=== PATIENT | female | born 1955 | race Two or more races ===

== ENCOUNTER 2024-03-31 20:09 | Inpatient (IN) | payer MEDICARE, MEDICAID ==
[~2024-03-31] VITALS: Ht 172.7 cm; Wt 124.8 kg
[2024-03-31 20:10] VITALS: PULSE 109; RESP 30; O2SAT 96
[2024-03-31] MEDS: NOREPINEPHRINE 8 MG/250ML KIT 250 ML IV ONE (20:30)
--- NOTE | 2024-03-31 20:38 | ECG ---
[facility] Test Date: 2024-03-31 Test Time: 20:23:20 Pat Name: BROOKLYN WEBSTER Department: ED Room: [address] [place] [address] Gender: F Plane Tableman: ASTRID : 1955 Requested By: HUMAIRA LEAHY Order Number: [id number] Reading MD: Tenzin ePña Measurements Intervals [place] Rate: 102 P: 60 NE: 113 QRS: -44 QRSD: 88 T: 85 QT: 322 QTc: 420 Interpretive Statements Sinus tachycardia Atrial premature complexes Borderline short [place] interval RSR' in V1 or V2, right VCD or RVH Probable inferior infarct, acute Electronically Signed On 04-02-2024 16:17:31 PDT by Tenzin Peña Please click the below link to view image of tracing.
--- NOTE | 2024-03-31 20:44 | ED.PDOC ---
History of Present Illness HPI Comments 68 y/o F is BIBA for c/o shortness of breath x4 days. Per EMS report, patient is a transfer from [facility] after, initially, being seen for unprovoked onset of progressively worsening difficulty breathing. Patient is stated to have reported no significant past medical or surgical Hx and was found then with right pleural effusion, septic with elevated white count and lactic acid, and in AFIB with NSTEMI then. Patient was given adenosine, norepinephrine, diltiazem, 500 ml of bolus, and levo in addition to Martines catheter being placed at facility site. Upon arrival, patient was found on NRB, sating on 96% on 3L. Patient endorses on having no chest pain, dyspnea, cough, fever, or other associated symptoms or modifiers at this time. Chief Complaint: Shortness of Breath Time Seen by MD: 20:10 Reviewed Notes: Nurses Notes, Medications, Allergies Allergies: Coded Allergies: NO KNOWN ALLERGIES (Unverified , 03/31/24) Information Source: Emergency Med Personnel Mode of Arrival: EMS Severity: Moderate Timing: Days Duration: Since onset Prehospital treatment: 12 Lead EKG, Radio/Tv Technician, Oxygen (NRB) Context: see HPI Location: see HPI Quality see HPI Worsens see HPI Improves see HPI Associated signs and symptoms see HPI Other History see HPI Past Medical History PAST MEDICAL HISTORY: Denies Surgical History: Denies all surgeries MANAGER REIMBURSEMENT History: Denies all MANAGER REIMBURSEMENT Hx Family History Family History: Unknown Social History Smoker: Non-Smoker Alcohol: Denies ETOH Use Drugs: Denies Drug Use Lives In: Home Constitutional: denies: chills, diaphoresis, fatigue, fever, malaise, sweats, weakness, others EENTM: denies: blurred vision, double vision, ear bleeding, ear discharge, ear drainage, ear pain, ear ringing, eye pain, eye redness, hearing loss, mouth pain, mouth swelling, nasal discharge, nose bleeding, nose congestion, nose pain, photophobia, tearing, throat pain, throat swelling, voice changes, others Respiratory: reports: shortness of breath; denies: cough, hemoptysis, orthopnea, SOB at rest, SOB with excertion, stridor, wheezing, others Cardiovascular: denies: chest pain, dizzy spells, diaphoresis, Dyspnea on exertion, edema, irregular heart beat, left arm pain, lightheadedness, palpitations, PND, syncope, others Gastrointestinal: denies: abdomen distended, abdominal pain, blood streaked bowels, constipated, diarrhea, dysphagia, difficulty swallowing, hematemesis, melena, nausea, poor appetite, poor fluid intake, rectal bleeding, rectal pain, vomiting, others Genitourinary: denies: abnormal vagina bleeding, burning, dyspareunia, dysuria, flank pain, frequency, hematuria, incontinence, pain, , vagina discharge, urgency, others Neurological: denies: dizziness, fainting, headache, left sided numbness, left sided weakness, numbness, paresthesia, pre-existing deficit, right sided numbness, right sided weakness, seizure, speech problems, tingling, tremors, weakness, others Musculoskeletal: denies: back pain, gout, joint pain, joint swelling, muscle pain, muscle stiffness, neck pain, others Integumetry: denies: bruises, change in color, change in hair/nails, dryness, laceration, lesions, lumps, rash, wounds, others Allergic/Immunocompromised: denies: Difficulty Healing, Frequent Infections, Hives, Itching, others Hematologic/Lymphatic: denies: anemia, blood clots, easy bleeding, easy bruising, swollen glands, others Endocrine: denies: excessive hunger, excessive sweating, excessive thirst, excessive urination, flushing, intolerance to cold, intolerance to heat, unexplained weight gain, unexplained weight loss, others Psychiatric: denies: anxiety, bipolar disorder, depression, hopeless, panic disorder, schizophrenia, sleepless, suicidal, others All Other Systems: Reviewed and Negative Physical Exam General Appearance: No Apparent Distress, Normal HEENT: Normal ENT Inspection, Pharynx Normal, TMs Normal Neck: Full Range of Motion, Non-Tender, Normal, Normal Inspection Respiratory: Chest Non-Tender, Lungs Clear, No Accessory Muscle Use, No Respira tory Distress, Normal Breath Sounds Cardiovascular: No Edema, No JVD, No Murmur, No Gallop, Normal Peripheral Pulses, Regular Rate/Rhythm Breast Exam: Deferred Gastrointestinal: No Organomegaly, Non Tender, No Pulsatile Mass, Normal Bowel Sounds, Soft Genitalia: Deferred Pelvic: Deferred Rectal: Deferred Extremities: No calf tenderness, Normal capillary refill, Normal inspection, Normal range of motion, Non-tender, No pedal edema Musculoskeletal : Apperance: Normal Neurologic: Alert, court interpreter II-XII nml as Tested, No Motor Deficits, Normal Affect, Normal Mood, No Sensory Deficits Cerebellar Function: Normal Reflexes: Normal Skin: Dry, Normal Color, Warm Lymphatic: No Adenopathy Was a procedure done? Was a procedure done?: Yes Sedation Sedation?: Yes Informed consent obtained: Yes Sedation start time: 22:27 Sedation end time: 23:35 Sedation total time: 1 hr 8 minutes Central Line Recorder of insertion practice: Screen Printer Occupation of heel cementer: Attending Physician Indication: Hypotension, Inability to obtain IV Room prepared for procedure: Yes Screen Printer performed hand hygien: Yes Maximal sterile barrier precau: Mask/Eye shield, Sterlie gloves, Large sterlie drape Skin Preparation: Chlorhexidine gluconate, Providine iodine Skin preparation completely dr: Yes Insertion site: Right, Internal jugular Central line catheter type: [id number] dialysis Number of lumens: 3 Central line exchanged over a: No Antiseptic ointment applied to: No Post Assessment: Chest X-Ray, Proper placement Informed consent obtained: Yes Risks/benefits/alt described: Yes Intubation Indication: Respiratory Insufficiency, Airway Protection Prep: Preoxygenation Pretreated with: Nothing Medicated with: Other (100mg rocuronium, 40mg etomidate) Intubation Approach: Orotracheal (8.0) Intubation size: cm (22 cm at the lip) Informed consent obtained: Yes Risks/benefits/alt described: Yes Other Procedure Procedure Arterial Line Placement to right radial artery Indication Hypotension with multiple pressors Anesthetic Lidocaine 1% Prep Chloroprep Success Yes, Patient tolerated the procedure well without complications Informed consent obtained: No Risks, benefits, and alternati: No EKG EKG #1: Pulse Rate (adult): 102 [place]: Normal Cardiac Rhythm: ST, PAC's Block: None Hypertrophy: None ST: Normal EKG #2: Pulse Rate (adult): 104 [place]: Normal Cardiac Rhythm: ST Block: None Hypertrophy: None ST: Old, Inf, Infarct Comments multiple premature complexes, ventricular and supraventricular Differential Dx Considerations may include: AFIB, CHF, NSTEMI, sepsis X-Ray, Labs, Meds, VS Vital Signs Date Time Temp Pulse Resp B/P (MAP) Pulse Ox O2 Delivery O2 Flow Rate FiO2 04/01/24 03:49 97 20 88/18 96 70 04/01/24 02:15 97 24 108/31 (56) 95 70 04/01/24 02:15 97.9 95 24 108/31 (56) 95 97.9 04/01/24 02:00 98.1 93 24 103/25 (51) 96 98.1 04/01/24 01:45 98.1 101 24 109/65 (80) 97 98.1 04/01/24 01:40 88/18 04/01/24 01:39 88/18 04/01/24 01:30 98.2 95 24 88/18 (41) 96 98.2 04/01/24 01:15 98.4 95 24 66/20 (35) 96 98.4 04/01/24 01:00 98.4 96 20 81/31 (48) 92 98.4 04/01/24 00:45 95 20 92/34 (53) 92 04/01/24 00:30 98 20 98/42 (60) 97 04/01/24 00:15 98 20 98/39 (58) 97 04/01/24 00:11 106 20 96 100 04/01/24 00:00 100 20 136/64 (88) 97 03/31/24 23:30 111 22 131/57 (81) 97 03/31/24 23:30 110 03/31/24 23:15 107 18 127/62 (83) 98 03/31/24 23:00 104 17 118/53 (74) 98 03/31/24 22:52 104 20 98 100 03/31/24 22:52 104 03/31/24 22:45 97 20 100/65 (77) 96 03/31/24 22:30 175 20 104/62 (76) 100 03/31/24 22:30 100/65 03/31/24 22:15 92 20 106/64 (78) 100 03/31/24 22:00 97 20 109/63 (78) 100 03/31/24 21:45 94 22 109/61 (77) 98 03/31/24 21:30 96 20 113/46 (68) 99 03/31/24 21:20 104 03/31/24 21:15 92 21 104/51 (68) 98 03/31/24 21:10 95 88/44 Facial BiPAP Mask 60 03/31/24 21:00 94 40 88/44 (59) 98 03/31/24 20:45 92 29 81/54 (63) 100 03/31/24 20:45 81/54 03/31/24 20:23 102 03/31/24 20:20 97.0 92 29 119/65 (83) 100 97.0 03/31/24 20:17 97.0 109 30 108/60 (76) 96 03/31/24 20:10 109 30 96 Non-Rebreather 15 N/A Lab Test 04/01/24 02:20 04/01/24 01:41 04/01/24 00:55 04/01/24 00:47 Range/Units Blood Gas Specimen Type Arterial Arterial Blood Gas Sample Site Left radial Right radial Blood Gas Patient Temperature 37.0 37.0 Arterial Blood Date Drawn 532 Arterial Blood pH 7.242 *L 7.164 *L 7.350-7.450 Arterial Blood Partial Pressure CO2 48.0 H 54.7 H 32.0-45.0 mmHg Arterial Blood Partial Pressure O2 79.6 L 72.9 L 83.0-108.0 mmHg Arterial Blood HCO3 20.2 L 19.2 L 21.0-28.0 mmol/L Arterial Blood Oxygen Saturation 92.2 L 89.2 L 94.0-98.0 % Arterial Blood Base Excess -7.0 L -9.5 L -2.0-3.0 mmol/L Arterial Blood Oxyhemoglobin 91.2 L 88.4 L 94.0-98.0 % Arterial Blood Carboxyhemoglobin 0.4 L 0.4 L 0.5-1.5 % Arterial Blood Methemoglobin 0.7 0.5 0.0-1.5 % Monster Test Yes Modified Blood Gas Total Hemoglobin 10.20 L 11.80 L 12.0-16.0 g/dL Blood Gas Set Respiration Rate 24.0 20.0 Blood Gas Modality Vent - ac Vent - ac FiO2 % 70.0 50.0 Blood Gas Tidal Volume 450.0 450.0 Blood Gas PEEP or CPAP 10.0 10.0 Specimen Drawn By Ladi faustin rrt Blood Gas Critical Value Read Back Yes Yes Blood Gas Notified Whom ros Sandoval md, Dr. Blood Gas Notified Time 0243 Blood Gas Notified By Ladi faustin ratchet setter Rt tello alcantar POC Glucose 133 H 70-106 mg/dl Troponin I High Sensitivity 1684 *H </=34 ng/L Test 03/31/24 22:22 03/31/24 20:52 03/31/24 20:47 03/31/24 20:42 Range/Units Lactic Acid Level 3.4 *H 3.3 *H 0.4-2.0 mmol/L Troponin I High Sensitivity 1515 *H 1469 *H </=34 ng/L Blood Gas Specimen Type Arterial Blood Gas Sample Site Left radial Blood Gas Patient Temperature 37.0 Arterial Blood Date Drawn [id number] Arterial Blood pH 7.386 7.350-7.450 Arterial Blood Partial Pressure CO2 31.7 L 32.0-45.0 mmHg Arterial Blood Partial Pressure O2 69.6 L 83.0-108.0 mmHg Arterial Blood HCO3 18.6 L 21.0-28.0 mmol/L Arterial Blood Oxygen Saturation 92.5 L 94.0-98.0 % Arterial Blood Base Excess -5.5 L -2.0-3.0 mmol/L Arterial Blood Oxyhemoglobin 91.4 L 94.0-98.0 % Arterial Blood Carboxyhemoglobin 0.6 0.5-1.5 % Arterial Blood Methemoglobin 0.6 0.0-1.5 % Monster Test Yes Blood Gas Total Hemoglobin 11.80 L 12.0-16.0 g/dL Blood Gas Liter Flow 4.00 Blood Gas Modality Nasal cannula FiO2 % 36.0 Specimen Drawn By Ladi faustin ratchet setter White Blood Count 25.3 H 4.4-10.8 10^3/uL Red Blood Count 4.53 4.0-5.20 10^6/uL Hemoglobin 10.8 L 12.2-16.2 g/dL Hematocrit 34.8 L 36.0-46.0 % Mean Corpuscular Volume 76.8 L 80.0-100.0 fL Mean Corpuscular Hemoglobin 23.8 L 28.0-32.0 pg Mean Corpuscular Hemoglobin Concent 31.0 L 32.0-36.0 g/dL Red Cell Distribution Width 18.8 H 11.8-14.3 % Platelet Count 246 140-450 10^3/uL Mean Platelet Volume 9.0 6.9-10.8 fL Neutrophils (%) (Auto) 84.8 H 37.0-80.0 % Lymphocytes (%) (Auto) 11.2 10.0-50.0 % Monocytes (%) (Auto) 3.4 0.0-12.0 % Eosinophils (%) (Auto) 0.1 0.0-7.0 % Basophils (%) (Auto) 0.5 0.0-2.0 % Neutrophils # (Auto) 21.5 H 1.6-8.6 10 ^3/uL Lymphocytes # (Auto) 2.8 0.4-5.4 10 ^3/uL Monocytes # (Auto) 0.9 0-1.3 10 ^3/uL Eosinophils # (Auto) 0 0-0.8 10 ^3/uL Basophils # (Auto) 0.1 0-0.2 10 ^3/uL Nucleated Red Blood Cells 0.0 % Prothrombin Time 11.9 H 9.3-11.8 sec Prothrombin Time INR 1.13 0.9-1.15 Activated Partial Thromboplast Time 23.7 L 24.5-34.5 SEC Sodium Level 133 L 136-145 mmol/L Potassium Level 6.0 *H 3.5-5.1 mmol/L Chloride Level 102 98-107 mmol/L Carbon Dioxide Level 17 L 20-31 mmol/L Anion Gap 14 5-15 Blood Urea Nitrogen 98 *H 9-23 mg/dL Creatinine 5.67 H 0.550-1.02 mg/dL Glomerular Filtration Rate Calc 8 >90 mL/min BUN/Creatinine Ratio 17.3 10.0-20.0 Serum Glucose 129 H 74-106 mg/dL Calcium Level 8.0 L 8.7-10.4 mg/dL Total Bilirubin 0.5 0.2-1.0 mg/dL Aspartate Amino Transferase (AST) 41 H 13-40 U/L Alanine Aminotransferase (ALT) 17 7-40 U/L Alkaline Phosphatase 128 H 46-116 U/L B-Type Natriuretic Peptide 274.69 0-100 pg/mL Total Protein 6.6 5.7-8.2 g/dL Albumin 3.1 L 3.2-4.8 g/dL Lipase 59 H 12-53 U/L Urine Color [place] H Yellow Urine Clarity Ex.turbid Clear Urine pH 5.5 5.0-9.0 Urine Specific [place] 1.020 1.001-1.035 Urine Protein 2+ H Negative Urine Ketones Trace Negative Urine Blood 3+ H Negative /uL Urine Nitrite Negative Negative Urine Bilirubin Negative Negative Urine Urobilinogen 2 H Negative mg/dL Urine Leukocyte Esterase 3+ Negative /uL Urine RBC 508 0 - 4 /hpf Urine WBC 2451 0 - 5 /hpf Urine WBC Clumps Present None Seen /hpf Urine Squamous Epithelial Cells None seen <5 /hpf Urine Bacteria Mod H None Seen /hpf Urine Mucus Few None Seen Urine Glucose Normal Normal mg/dL Current Medications Medications (Trade) Dose Ordered Sig/Destini Route Start Time Stop Time Status Last Admin Norepinephrine Bitartrate 250 ml @ 3.75 mls/hr Q24H IV 03/31/24 20:45 03/31/24 20:45 Cefepime HCl 50 ml @ 12.5 mls/hr ONCE ONCE IV 03/31/24 22:30 04/01/24 02:29 DC 04/01/24 01:39 Vancomycin HCl 200 ml @ 200 mls/hr ONCE ONCE IV 03/31/24 22:30 03/31/24 23:29 DC 04/01/24 01:21 Etomidate 20 mg ONCE ONCE IV 03/31/24 22:30 03/31/24 22:36 DC 03/31/24 22:30 Calcium Gluconate/ Sodium Chloride 50 ml @ 100 mls/hr Q30M IV 03/31/24 23:45 04/01/24 00:44 DC 04/01/24 00:15 Sodium Bicarbonate 100 ml ONCE ONCE IV 03/31/24 23:45 03/31/24 23:46 DC 04/01/24 01:39 Insulin Human Regular (InsuLIN R) 10 units ONCE ONCE IV 03/31/24 23:45 03/31/24 23:53 DC 04/01/24 01:49 Dextrose 50 ml ONCE ONCE IV 03/31/24 23:45 03/31/24 23:53 DC 04/01/24 01:59 Sodium Chloride 1,000 ml @ 1,000 mls/hr Q1H ONCE IV 03/31/24 23:45 04/01/24 00:44 DC 03/31/24 23:45 Heparin Sodium/ Dextrose 250 ml @ 10 mls/hr Q24H IV 04/01/24 01:00 04/01/24 01:48 Heparin Sodium (Porcine) 4,000 units ONCE ONCE IV 04/01/24 01:00 04/01/24 01:01 DC 04/01/24 01:46 Midazolam HCl 50 ml @ 1 mls/hr Q24H IV 04/01/24 01:30 04/01/24 01:40 Vasopressin 20 units/Sodium Chloride 100 ml @ 9 mls/hr Q11H7M IV 04/01/24 01:30 04/01/24 01:39 [place] [address] Ph: [phone] DIAGNOSTIC IMAGING Diagnostic Imaging Report : [id number] Signed PATIENT: BROOKLYN WEBSTER ACCT: [id number] UNIT: [id number] : 1955 LOC: ER ROOM / BED: / AGE / SEX: 68 / F ADM STATUS: REG ER SERVICE 14 ORDERING PHYSICIAN: HUMAIRA SANDOVAL MD PROCEDURE(s): CXRP - CHEST PORTABLE REASON: sob ORDER NUMBER(s): [id number], ACCESSION NUMBER(s): [id number] CHEST RADIOGRAPH Indication:sob Technique: Single frontal view of the chest was obtained Comparison: None FINDINGS: Lines and Tubes: None Lungs: Mildly prominent pulmonary vascular markings bilaterally.. Pleura: Moderate right pleural effusion. No pneumothorax. Cardiomediastinal contours: Mild cardiomegaly Bones: No acute osseous abnormality. IMPRESSION: 1. Moderate right pleural effusion. 2. Cardiomegaly with mild pulmonary vascular congestion bilaterally. ATED BY: BEN WHATLEY Jr., DO DICTATED DATE/TIME: 03/31/242044 SIGNED BY: BEN WHATLEY Jr., SIGNED DATE/TIME: 03/31/242044 CC: Time of 1ST Reevaluation: 20:40 Reevaluation 1ST: Unchanged Patient Education/Counseling: Diagnosis, Treatment Family Education/Counseling: No Family Present Departure 1 Departure Time of Disposition: 04:32 (Patient is critically ill. She is likely septic and has bilateral renal stones. We will consult with Urology, Cardiology, pulmonology admit patient to ICU. Patient in in critical condition with rising pressor demand) Impression: Primary Impression: Sepsis Qualified Codes: A41.9 - Sepsis, unspecified organism; R65.21 - Severe sepsis with septic shock; J96.01 - Acute respiratory failure with hypoxia Additional Impressions: Shortness of breath Weakness Bilateral renal stones NSTEMI (non-ST elevated myocardial infarction) Acute kidney failure Qualified Codes: N17.8 - Other acute kidney failure Disposition: ADMITTED INPATIENT Admit to: ICU Condition: Critical Critical Care Note Critical Care Time?: Yes (>90min-critical care time only) Critical care comment: Authorized and Performed by: Humaria Sandoval MD Total critical care time: Approximately 185 minutes Due to a high probability of clinically significant, life threatening deterioration, the patient required my highest level of preparedness to intervene emergently and I personally spent this critical care time directly and personally managing the patient. This critical care time included obtaining a history; examining the patient; pulse oximetry; ordering and review of studies; arranging urgent treatment with development of a management plan; evaluation of patient's response to treatment; frequent reassessment; and, discussions with other providers. This critical care time was performed to assess and manage the high probability of imminent, life-threatening deterioration that could result in multi-organ failure. It was exclusive of separately billable procedures and treating other patients and teaching time. Please see my other sections and the rest of the note for further information on patient assessment and treatment. Stability Stability form required: No Heart Score Heart Score: Heart Score Response (Comments) Value History Slightly Suspicious 0 EKG Normal 0 Age >65 2 Risk Factors >3 or Hx ASHD 2 Troponin >3 x's Normal limit 2 Total 6 DOROTHY ALCARAZ Mar 31, 2024 20:44 HUMAIRA SANDOVAL MD Apr 01, 2024 04:34
[2024-03-31] MEDS: NOREPINEPHRINE 8 MG/250ML KIT 250 ML IV SCH (20:45)
--- NOTE | 2024-03-31 20:48 | DVH ---
CHEST RADIOGRAPH Indication:sob Technique: Single frontal view of the chest was obtained Comparison: None FINDINGS: Lines and Tubes: None Lungs: Mildly prominent pulmonary vascular markings bilaterally.. Pleura: Moderate right pleural effusion. No pneumothorax. Cardiomediastinal contours: Mild cardiomegaly Bones: No acute osseous abnormality. IMPRESSION: 1. Moderate right pleural effusion. 2. Cardiomegaly with mild pulmonary vascular congestion bilaterally.
[2024-03-31 21:23] LABS: Base Excess -5.5 mmol/L (-2.0-3.0)
--- NOTE | 2024-03-31 21:23 | ECG ---
[facility] Test Date: 2024-03-31 Test Time: 21:20:16 Pat Name: BROOKLYN WEBSTER Department: ED Room: [address] [place] [address] Gender: F Concrete Form Setter: ASTRID : 1955 Requested By: HUMAIRA LEAHY Order Number: [id number] Reading MD: Tenzin Peña Measurements Intervals [place] Rate: 104 P: 42 [place]: 116 QRS: -47 QRSD: 91 T: 110 QT: 327 QTc: 430 Interpretive Statements Sinus tachycardia Multiple premature complexes, vent & supraven Borderline short [place] interval Abnormal R-wave progression, late transition Inferior infarct, old Lateral leads are also involved Electronically Signed On 04-02-2024 16:17:35 PDT by Tenzin Peña Please click the below link to view image of tracing.
[2024-03-31 21:38] LABS: Alanine Aminotransferase 17 U/L (7-40); Albumin 3.1 g/dL (3.2-4.8); Alkaline Phosphatase 128 U/L (46-116); Anion Gap 14 (5-15); Aspartate Aminotransferase 41 U/L (13-40); BUN/Creatinine Ratio 17.3 (10.0-20.0); Bilirubin, Total 0.5 mg/dL (0.2-1.0); Carbon Dioxide 17 mmol/L (20-31); Chloride 102 mmol/L (98-107); Glucose 129 mg/dL (74-106); Lipase 59 U/L (12-53); Sodium 133 mmol/L (136-145); Total Protein 6.6 g/dL (5.7-8.2)
[2024-03-31 22:04] LABS: Lactic Acid w/Reflex 3.3 mmol/L (0.4-2.0)
[2024-03-31 22:05] LABS: Blood Urea Nitrogen 98 mg/dL (9-23)
[2024-03-31 22:07] LABS: Basophils # (auto) 0.1 10 ^3/uL (0-0.2); Basophils % (auto) 0.5 % (0.0-2.0); Eosinophils # (auto) 0 10 ^3/uL (0-0.8); Eosinophils % (auto) 0.1 % (0.0-7.0); Hematocrit 34.8 % (36.0-46.0); Hemoglobin 10.8 g/dL (12.2-16.2); Lymphocytes # (auto) 2.8 10 ^3/uL (0.4-5.4); Lymphocytes % (auto) 11.2 % (10.0-50.0); Mean Corpuscular Hemoglobin 23.8 pg (28.0-32.0); Mean Corpuscular Volume 76.8 fL (80.0-100.0); Monocytes # (auto) 0.9 10 ^3/uL (0-1.3); Monocytes % (auto) 3.4 % (0.0-12.0); Neutrophils # (auto) 21.5 10 ^3/uL (1.6-8.6); Neutrophils % (auto) 84.8 % (37.0-80.0); Platelet Count (auto) 246 10^3/uL (140-450); Red Blood Cells 4.53 10^6/uL (4.0-5.20); Red Cell Distribution Width 18.8 % (11.8-14.3); White Blood Cell 25.3 10^3/uL (4.4-10.8)
[2024-03-31 22:08] LABS: Urine Bacteria MOD /hpf (None Seen); Urine Blood 3+ /uL (Negative); Urine Clarity Ex.Turbid (Clear); Urine Color Orange (Yellow); Urine Mucus FEW (None Seen); Urine Protein, UAD 2+ (Negative); Urine Urobilinogen 2 mg/dL (Negative); Urine WBC 2451 /hpf (0 - 5); Urine WBC Clumps PRESENT /hpf (None Seen); Urine pH 5.5 (5.0-9.0)
[2024-03-31] MEDS: ETOMIDATE (2MG/ML) 20ML VIAL IV ONE ×2 (22:28→22:30)
[2024-03-31] MEDS: ROCURONIUM 10MG/ML 10ML VIAL IV ONE ×2 (22:29→22:30)
[2024-03-31] MEDS: PROPOFOL 100 ML IV ONE (22:32)
--- NOTE | 2024-03-31 23:32 | ECG ---
[facility] Test Date: 2024-03-31 Test Time: 23:30:57 Pat Name: BROOKLYN WEBSTER Department: ED Room: [address] [place] [address] Gender: F Hand Cooper Helper: ASTRID : 1955 Requested By: HUMAIRA LEAHY Order Number: [id number] Reading MD: Tenzin Peña Measurements Intervals [place] Rate: 110 P: 54 [place]: 116 QRS: -50 QRSD: 92 T: 92 QT: 367 QTc: 497 Interpretive Statements Sinus tachycardia Abnormal R-wave progression, early transition Inferior infarct, acute (RCA) Probable RV involvement, suggest recording right precordial leads Electronically Signed On 04-02-2024 16:17:46 PDT by Tenzin Peña Please click the below link to view image of tracing.
[2024-03-31] MEDS ORDERED: HEPARIN DRIP/D5W 100UNITS/ML 250 ML IV SCH (23:45)
[2024-03-31] MEDS ORDERED: HEPARIN SODIUM (PORCINE) 5000 UNITS/ML 1ML VIAL IV ONE (23:45)
[2024-03-31] MEDS: SODIUM CHLORIDE 0.9% 1,000 ML IV ONE (23:45)
[2024-04-01] VITALS (70 sets, daily range): BP systolic 31–187; BP diastolic 18–89; PULSE 79–112; RESP 11–32; TEMP 98.3–101.1; O2SAT 88–99
[2024-04-01 00:08] LABS: INR 1.13 (0.9-1.15); Partial Thromboplastin Time 23.7 SEC (24.5-34.5); Prothrombin Time 11.9 sec (9.3-11.8)
[2024-04-01] MEDS: CALCIUM GLUC 1,000mg/50ml-NS 50 ML IV SCH (00:15)
--- NOTE | 2024-04-01 00:44 | DVH ---
CLINICAL HISTORY: sepsis, ams, TECHNIQUE: Helical imaging carried out from skull base to vertex without intravenous contrast. This e xam was performed according to our departmental dose optimization program. Up-to-date CT equipment an d radiation dose reduction techniques are utilized as appropriate. CTDIVol: [CTDIvol] mGy DLP: 2764.22 mGy-cm WID: COMPARISON: None FINDINGS: Generalized cerebral volume loss with concordant prominence of the subarachnoid spaces and ventricles . Mild patchy low attenuation in the cerebral white matter consistent with nonspecific white matter d isease. There is no midline shift or mass effect. The morejon white matter interfaces are maintained. The basal cisterns are patent. There is no evidence of acute intracranial hemorrhage or extra-axial fluid ling ection. There is a small right mastoid air cell effusion. There is fluid layering in the nasopharynx. Partially imaged endotracheal tube. IMPRESSION: 1. No acute intracranial abnormality. 2. Generalized cerebral volume loss and mild chronic microvascular ischemic change. 3. Partially imaged endotracheal tube.
[2024-04-01 01:04] LABS: Base Excess -9.5 mmol/L (-2.0-3.0)
[2024-04-01] MEDS: VANCOMYCIN 1GM/200ML PREMIX 200 ML IV ONE ×2 (01:21→05:30)
[2024-04-01] MEDS: VASOPRESSIN 20 UNITS in SODIUM CHL 0.9% 99 ML IV SCH (01:39)
[2024-04-01] MEDS: CEFEPIME 2GM/50ML NS 50 ML IV ONE (01:39)
[2024-04-01] MEDS: SODIUM BICARB 8.4% 50Meq/50ml SYR Vial IV ONE ×4 (01:39→12:12)
[2024-04-01] MEDS: MIDAZOLAM DRIP 50 mg/50mL 50 ML IV SCH (01:40)
[2024-04-01] MEDS: VASOPRESSIN 20 UNIT/ML ONE ×2 (01:41→10:59)
--- NOTE | 2024-04-01 01:41 | DVH ---
EXAM: XY CHEST XRAY 1 VIEW CLINICAL HISTORY: ngt placement verify TECHNIQUE: Single AP view of the chest WID: COMPARISON: XY CHEST PORTABLE on DOS: 03/31/24 FINDINGS: Lines and tubes: Endotracheal tube projects 5.6 cm above the mili. Right IJ central venous cathete r projects over the lower SVC. Gastric tube descends beneath the level of the diaphragm and tip not v isualized in field of view. Chest: There is mild cardiomegaly with prominence of the pulmonary vasculature. Moderate to large right pleural effusion and adjacent right lung consolidation. The osseous structures are grossly intact. IMPRESSION: 1. Endotracheal tube and gastric tubes in place as described. 2. Right IJ central venous catheter projects over the lower SVC. 3. Mild cardiomegaly and prominence of the pulmonary vasculature. 4. Moderate to large right pleural effusion.
[2024-04-01] MEDS: HEPARIN SODIUM (PORCINE) 5000 UNITS/ML 1ML VIAL IV ONE ×2 (01:46→10:00)
[2024-04-01] MEDS: HEPARIN DRIP/D5W 100UNITS/ML 250 ML IV SCH ×2 (01:48→17:36)
[2024-04-01] MEDS: InsuLIN REG 1unit/0.01ml Soln (100units/ml) IV ONE ×3 (01:49→16:00)
[2024-04-01] MEDS: DEXTROSE (50%) 50ML SYRG IV ONE ×3 (01:59→15:52)
[2024-04-01] MEDS: PROPOFOL 100 ML IV SCH (02:30)
--- NOTE | 2024-04-01 02:38 | DVH ---
CLINICAL HISTORY: sepsis TECHNIQUE: CT of the chest, abdomen and pelvis was performed with IV contrast without IV contrast. Th is exam was performed according to our departmental dose optimization program. Up-to-date CT equipmen t and radiation dose reduction techniques are utilized as appropriate. COMPARISON: None FINDINGS: CHEST FINDINGS: Lower Neck: There is soft tissue stranding in the right supraclavicular neck. Axilla, Mediastinum and Sabine: There is no axillary or mediastinal lymphadenopathy. Limited evaluatio n of the sabine in the absence of intravenous contrast. Heart and Great Vessels: Mild cardiomegaly with trace pericardial fluid. There is moderate three-vess el calcified coronary artery disease. Mild aortic valve calcification. The thoracic aorta is normal in caliber containing mild calcified atherosclerotic plaque. There is a right IJ central venous cath eter in place terminating in the low IVC. Airway, Lungs and Pleura: Endotracheal tube terminates above the mili. Imaging during expiration. Low lung volumes. There is linear perihilar and bibasilar opacities likely atelectasis. There is a mo derate partially loculated right pleural effusion. Moderate dependent consolidations in the right low er and middle lobes. Mild interlobular septal thickening in the lungs. Chest Wall and Osseous Structures: There is a sebaceous cyst in the posterior chest wall just to the right of midline measuring 2.2 cm on series 5, image 67. Multilevel thoracic spondylosis. No destruct edelmira osseous lesion. Abdomen and Pelvis Findings: Liver and Biliary system: Hepatomegaly measuring 21 cm craniocaudal. No definite hepatic lesion. Corrie or cholecystectomy. No biliary ductal dilatation. Spleen: Mild splenomegaly. Adrenal Glands and Kidneys: There is nodular thickening of the bilateral adrenal glands. There is a c alculus in the right UPJ measuring 1.9 cm on coronal image 154. Mild right hydronephrosis. There is a 2.6 cm somewhat staghorn appearing calculus in the left renal pelvis and UPJ causing mild left hydro nephrosis predominantly in the mid to lower pole. There is soft tissue stranding about the left renal pelvis. Additional nonobstructing left renal calculi. There is partial duplication of the left renal collecting system Pancreas and Retroperitoneum: Grossly normal pancreas. There is predominantly low-density moderate ri ght perinephric fluid. Additional moderate low-density fluid in the right retroperitoneum extending i n the bilateral extraperitoneal pelvis and to a lesser extent in the left retroperitoneum. Aorta and Major Vessels: Aortoiliac vessels are normal in caliber containing moderate calcified ather osclerotic plaque. Bowel, Mesentery and Peritoneal space: The small and large bowel loops are normal in caliber. There i s [id number] colonic diverticulosis. There are fluid-filled small and large bowel loops. There is no free air or loculated fluid collection. Pelvis: The Martines catheter decompresses the urinary bladder. There is prominence of the endometrium m easuring at least 2.8 cm on sagittal image 88. There is no pelvic lymphadenopathy. Abdominal wall and Osseous Structures: There is mild body wall edema. Multilevel lumbar spondylosis. No destructive osseous lesion. IMPRESSION: 1. Moderate partially loculated right pleural effusion and consolidations in the right middle and low er lobes which could be pneumonia and/or atelectasis. 2. Mild cardiomegaly, mild interstitial pulmonary edema, and body wall edema. 3. There is a 1.9 cm calculus in the right UPJ with mild right hydronephrosis 4. There is a 2.6 cm somewhat staghorn appearing calculus in the left renal pelvis and UPJ causing mi ld predominantly mid to lower pole left hydronephrosis. Mild soft tissue stranding about the left re nal pelvis which could be due to obstruction or superimposed infection. Correlate with urinalysis. 5. Partial duplication of the left renal collecting system without hydronephrosis in the upper pole. 6. Moderate right perinephric, right retroperitoneal, and bilateral extraperitoneal pelvis low-densit y fluid and very mild left retroperitoneal low-density fluid. This could be fluid related to bilatera l renal obstructions and forniceal ruptures versus evolved retroperitoneal hematoma. This is suboptim ally evaluated without intravenous contrast. 7. Fluid-filled small and large bowel loops which may be physiologic or related to enterocolitis and could be manifesting as loose stools and/or diarrhea. 8. Prominent endometrium measuring at least 2.8 cm, suboptimally evaluated by CT. Recommend character ization with nonemergent pelvic ultrasound if clinically indicated. 9. Mild hepatosplenomegaly. 10. Moderate three-vessel calcified coronary artery disease and mild aortic valve calcification. 11. Right IJ central venous catheter in place terminating in the low SVC. 12. Small soft tissue stranding in the right supraclavicular neck which could be blood products. 13. Endotracheal tube terminates above the mili.
[2024-04-01] MEDS: PHENYLEPHRINE IV 250 ML IV ONE (02:43)
[2024-04-01] MEDS: PHENYLEPHRINE IV 250 ML IV SCH (02:45)
[2024-04-01] MEDS ORDERED: ONDANSETRON HCL 4 MG/2 ML VIAL IV PRN (05:00)
[2024-04-01] MEDS: ALBUMIN 25% 50 ML IV SCH (05:00)
[2024-04-01] MEDS ORDERED: VANCOMYCIN PER PHARMACY 0 MG IV SCH (05:00)
[2024-04-01] MEDS ORDERED: MORPHINE SULFATE INJ 2 MG/ml SYRG IV PRN (05:00)
[2024-04-01] MEDS: FUROSEMIDE 20 MG/2 ML VIAL IV ONE (05:00)
--- NOTE | 2024-04-01 05:20 | DVHHP2 ---
History of Present Illness Reason for Visit: Shortness of breath History of Present Illness 68-year-old female transferred from outside facility for higher level of care. Patient initially presented with complaints of a four day history of shortness for breath. Patient arrived tachycardic in atrial fibrillation, tachypneic sa turating in the 70s. Patient was emergently intubated for airway protection. Currently she is sedated and intubated. No further history could be obtained at the moment. Past Medical History Unknown Past Surgical History Unknown Family History Unknown Smoke: No ALCOHOL: none Drugs: None Review of Systems Review of Systems Unable to complete review of systems patient is sedated and intubated. Allergies: Coded Allergies: NO KNOWN ALLERGIES (Unverified , 03/31/24) Medications Current Medications Medications Dose Ordered Sig/Destini Route Start Time Stop Time Status Last Admin Dose Admin Norepinephrine Bitartrate 250 ml @ 3.75 mls/hr Q24H IV 03/31/24 20:45 03/31/24 20:45 3.75 MLS/HR Heparin Sodium/ Dextrose 250 ml @ 18 mls/hr [id number] IV 03/31/24 23:45 UNV Heparin Sodium/ Dextrose 250 ml @ 10 mls/hr Q24H IV 04/01/24 01:00 04/01/24 01:48 10 MLS/HR Midazolam HCl 50 ml @ 1 mls/hr Q24H IV 04/01/24 01:30 04/01/24 01:40 1 MLS/HR Vasopressin 20 units/Sodium Chloride 100 ml @ 9 mls/hr Q11H7M IV 04/01/24 01:30 04/01/24 01:39 3 MLS/HR Propofol 100 ml @ 4.5 mls/hr [id number] IV 04/01/24 02:30 Phenylephrine HCl 250 ml @ 30 mls/hr Q8H20M IV 04/01/24 02:45 04/01/24 02:45 30 MLS/HR Exam Vital Signs Vital Signs Date Time Temp Pulse Resp B/P (MAP) Pulse Ox O2 Delivery O2 Flow Rate FiO2 04/01/24 04:15 97.9 83 25 100/39 (59) 96 97.9 04/01/24 03:49 70 03/31/24 21:10 Facial BiPAP Mask 03/31/24 20:10 15 Exam Gen: 68-year-old female in moderate distress, morbidly obese Skin: Warm, dry, normal color and texture, no rash. HEENT: Normocephalic atraumatic, mucous membranes moist and pink. Neck: Cervical and supraclavicular nodes normal without enlargement, trachea is midline, thyroid gland is normal without masses. Pulmonary: Diminished breath sounds bilaterally, intubated Cardiac: Regular rate and rhythm. No murmur Abdomen: Soft, nontender, nondistended, bowel sounds present all 4 quadrants, no guarding, no rigidity, no organomegaly. Extremities: No cyanosis, clubbing, no edema Neuro: Sedated Labs/Xrays ORDERING PHYSICIAN: HUMAIRA LEAHY MD PROCEDURE(s): CTCAP - CHST AB PEL WO CON-NO IV/ORAL REASON: sepsis ORDER NUMBER(s): [id number], ACCESSION NUMBER(s): [id number] CLINICAL HISTORY: sepsis TECHNIQUE: CT of the chest, abdomen and pelvis was performed with IV contrast without IV contrast. This exam was performed according to our departmental dose optimization program. Up-to-date CT equipment and radiation dose reduction techniques are utilized as appropriate. COMPARISON: None FINDINGS: CHEST FINDINGS: Lower Neck: There is soft tissue stranding in the right supraclavicular neck. Axilla, Mediastinum and Sabine: There is no axillary or mediastinal ly mphadenopathy. Limited evaluation of the sabine in the absence of intravenous contrast. Heart and Great Vessels: Mild cardiomegaly with trace pericardial fluid. There is moderate three-vessel calcified coronary artery disease. Mild aortic valve calcification. The thoracic aorta is normal in caliber containing mild calcified atherosclerotic plaque. There is a right IJ central venous catheter in place terminating in the low IVC. Airway, Lungs and Pleura: Endotracheal tube terminates above the mili. Jelena ging during expiration. Low lung volumes. There is linear perihilar and bibasilar opacities likely atelectasis. There is a moderate partially loculated right pleural effusion. Moderate dependent consolidations in the right lower and middle lobes. Mild interlobular septal thickening in the lungs. Chest Wall and Osseous Structures: There is a sebaceous cyst in the posterior chest wall just to the right of midline measuring 2.2 cm on series 5, image 67. Multilevel thoracic spondylosis. No destructive osseous lesion. Abdomen and Pelvis Findings: Liver and Biliary system: Hepatomegaly measuring 21 cm craniocaudal. No definite hepatic lesion. Prior cholecystectomy. No biliary ductal dilatation. Spleen: Mild splenomegaly. Adrenal Glands and Kidneys: There is nodular thickening of the bilateral adrenal glands. There is a calculus in the right UPJ measuring 1.9 cm on coronal image 154. Mild right hydronephrosis. There is a 2.6 cm somewhat staghorn appearing calculus in the left renal pelvis and UPJ causing mild left hydronephrosis predominantly in the mid to lower pole. There is soft tissue stranding about the left renal pelvis. Additional nonobstructing left renal calculi. There is partial duplication of the left renal collecting system Pancreas and Retroperitoneum: Grossly normal pancreas. There is predominantly low-density moderate right perinephric fluid. Additional moderate low-density fluid in the right retroperitoneum extending in the bilateral extraperitoneal pelvis and to a lesser extent in the left retroperitoneum. Aorta and Major Vessels: Aortoiliac vessels are normal in caliber containing moderate calcified atherosclerotic plaque. Bowel, Mesentery and Peritoneal space: The small and large bowel loops are normal in caliber. There is [id number] colonic diverticulosis. There are fluid-filled small and large bowel loops. There is no free air or loculated fluid collection. Pelvis: The Martines catheter decompresses the urinary bladder. There is prominence of the endometrium measuring at least 2.8 cm on sagittal image 88. There is no pelvic lymphadenopathy. Abdominal wall and Osseous Structures: There is mild body wall edema. Multilevel lumbar spondylosis. No destructive osseous lesion. IMPRESSION: 1. Moderate partially loculated right pleural effusion and consolidations in the right middle and lower lobes which could be pneumonia and/or atelectasis. 2. Mild cardiomegaly, mild interstitial pulmonary edema, and body wall edema. 3. There is a 1.9 cm calculus in the right UPJ with mild right hydronephrosis 4. There is a 2.6 cm somewhat staghorn appearing calculus in the left renal pelvis and UPJ causing mild predominantly mid to lower pole left hydronephrosis. Mild soft tissue stranding about the left renal pelvis which could be due to obstruction or superimposed infection. Correlate with urinalysis. 5. Partial duplication of the left renal collecting system without hyd ronephrosis in the upper pole. 6. Moderate right perinephric, right retroperitoneal, and bilateral extraperitoneal pelvis low-density fluid and very mild left retroperitoneal low- density fluid. This could be fluid related to bilateral renal obstructions and forniceal ruptures versus evolved retroperitoneal hematoma. This is suboptimally evaluated without intravenous contrast. 7. Fluid-filled small and large bowel loops which may be physiologic or related to enterocolitis and could be manifesting as loose stools and/or diarrhea. 8. Prominent endometrium measuring at least 2.8 cm, suboptimally evaluated by CT. Recommend characterization with nonemergent pelvic ultrasound if clinically indicated. 9. Mild hepatosplenomegaly. 10. Moderate three-vessel calcified coronary artery disease and mild aortic valve calcification. 11. Right IJ central venous catheter in place terminating in the low SVC. 12. Small soft tissue stranding in the right supraclavicular neck which could be blood products. 13. Endotracheal tube terminates above the mili. RING PHYSICIAN: HUMAIRA LEAHY MD PROCEDURE(s): HWOCT - HEAD WITHOUT CONTRAST REASON: sepsis, ams, ORDER NUMBER(s): [id number], ACCESSION NUMBER(s): [id number] CLINICAL HISTORY: sepsis, ams, TECHNIQUE: Helical imaging carried out from skull base to vertex without intravenous contrast. This exam was performed according to our departmental dose optimization program. Up-to-date CT equipment and radiation dose reduction techniques are utilized as appropriate. CTDIVol: [CTDIvol] mGy DLP: 2764.22 mGy-cm WID: COMPARISON: None FINDINGS: Generalized cerebral volume loss with concordant prominence of the subarachnoid spaces and ventricles. Mild patchy low attenuation in the cerebral white matter consistent with nonspecific white matter disease. There is no midline shift or mass effect. The morejon white matter interfaces are maintained. The basal cisterns are patent. There is no evidence of acute intracranial hemorrhage or extra-axial fluid collection. There is a small right mastoid air cell effusion. There is fluid layering in the nasopharynx. Partially imaged endotracheal tube. IMPRESSION: 1. No acute intracranial abnormality. 2. Generalized cerebral volume loss and mild chronic microvascular ischemic change. 3. Partially imaged endotracheal tube. RING PHYSICIAN: HUMAIRA LEAHY MD PROCEDURE(s): CXR1 - CHEST XRAY 1 VIEW REASON: ngt placement verify ORDER NUMBER(s): [id number], ACCESSION NUMBER(s): [id number] EXAM: XY CHEST XRAY 1 VIEW CLINICAL HISTORY: ngt placement verify TECHNIQUE: Single AP view of the chest WID: COMPARISON: XY CHEST PORTABLE on DOS: 03/31/24 FINDINGS: Lines and tubes: Endotracheal tube projects 5.6 cm above the mili. Right IJ central venous catheter projects over the lower SVC. Gastric tube descends beneath the level of the diaphragm and tip not visualized in field of view. Chest: There is mild cardiomegaly with prominence of the pulmonary vasculature. Moderate to large right pleural effusion and adjacent right lung consolidation. The osseous structures are grossly intact. IMPRESSION: 1. Endotracheal tube and gastric tubes in place as described. 2. Right IJ central venous catheter projects over the lower SVC. 3. Mild cardiomegaly and prominence of the pulmonary vasculature. 4. Moderate to large right pleural effusion. Labs Test 04/01/24 02:20 04/01/24 01:41 04/01/24 00:47 03/31/24 22:22 Range/Units Blood Gas Specimen Type Arterial Blood Gas Sample Site Left radial Blood Gas Patient Temperature 37.0 Arterial Blood Date Drawn [id number] Arterial Blood pH 7.242 *L 7.350-7.450 Arterial Blood Partial Pressure CO2 48.0 H 32.0-45.0 mmHg Arterial Blood Partial Pressure O2 79.6 L 83.0-108.0 mmHg Arterial Blood HCO3 20.2 L 21.0-28.0 mmol/L Arterial Blood Oxygen Saturation 92.2 L 94.0-98.0 % Arterial Blood Base Excess -7.0 L -2.0-3.0 mmol/L Arterial Blood Oxyhemoglobin 91.2 L 94.0-98.0 % Arterial Blood Carboxyhemoglobin 0.4 L 0.5-1.5 % Arterial Blood Methemoglobin 0.7 0.0-1.5 % Monster Test Yes Blood Gas Total Hemoglobin 10.20 L 12.0-16.0 g/dL Blood Gas Set Respiration Rate 24.0 Blood Gas Modality Vent - ac FiO2 % 70.0 Blood Gas Tidal Volume 450.0 Blood Gas PEEP or CPAP 10.0 Specimen Drawn By Ladi faustin rrt Blood Gas Critical Value Read Back Yes Blood Gas Notified Whom ros Leahy md Blood Gas Notified Time [id number] Blood Gas Notified By Ladi faustin rrt POC Glucose 133 H 70-106 mg/dl Troponin I High Sensitivity 1684 *H </=34 ng/L Lactic Acid Level 3.4 *H 0.4-2.0 mmol/L Test 03/31/24 20:52 03/31/24 20:47 03/31/24 20:42 Range/Units Blood Gas Liter Flow 4.00 White Blood Count 25.3 H 4.4-10.8 10^3/uL Red Blood Count 4.53 4.0-5.20 10^6/uL Hemoglobin 10.8 L 12.2-16.2 g/dL Hematocrit 34.8 L 36.0-46.0 % Mean Corpuscular Volume 76.8 L 80.0-100.0 fL Mean Corpuscular Hemoglobin 23.8 L 28.0-32.0 pg Mean Corpuscular Hemoglobin Concent 31.0 L 32.0-36.0 g/dL Red Cell Distribution Width 18.8 H 11.8-14.3 % Platelet Count 246 140-450 10^3/uL Mean Platelet Volume 9.0 6.9-10.8 fL Neutrophils (%) (Auto) 84.8 H 37.0-80.0 % Lymphocytes (%) (Auto) 11.2 10.0-50.0 % Monocytes (%) (Auto) 3.4 0.0-12.0 % Eosinophils (%) (Auto) 0.1 0.0-7.0 % Basophils (%) (Auto) 0.5 0.0-2.0 % Neutrophils # (Auto) 21.5 H 1.6-8.6 10 ^3/uL Lymphocytes # (Auto) 2.8 0.4-5.4 10 ^3/uL Monocytes # (Auto) 0.9 0-1.3 10 ^3/uL Eosinophils # (Auto) 0 0-0.8 10 ^3/uL Basophils # (Auto) 0.1 0-0.2 10 ^3/uL Nucleated Red Blood Cells 0.0 % Prothrombin Time 11.9 H 9.3-11.8 sec Prothrombin Time INR 1.13 0.9-1.15 Activated Partial Thromboplast Time 23.7 L 24.5-34.5 SEC Sodium Level 133 L 136-145 mmol/L Potassium Level 6.0 *H 3.5-5.1 mmol/L Chloride Level 102 98-107 mmol/L Carbon Dioxide Level 17 L 20-31 mmol/L Anion Gap 14 5-15 Blood Urea Nitrogen 98 *H 9-23 mg/dL Creatinine 5.67 H 0.550-1.02 mg/dL Glomerular Filtration Rate Calc 8 >90 mL/min BUN/Creatinine Ratio 17.3 10.0-20.0 Serum Glucose 129 H 74-106 mg/dL Calcium Level 8.0 L 8.7-10.4 mg/dL Total Bilirubin 0.5 0.2-1.0 mg/dL Aspartate Amino Transferase (AST) 41 H 13-40 U/L Alanine Aminotransferase (ALT) 17 7-40 U/L Alkaline Phosphatase 128 H 46-116 U/L B-Type Natriuretic Peptide 274.69 0-100 pg/mL Total Protein 6.6 5.7-8.2 g/dL Albumin 3.1 L 3.2-4.8 g/dL Lipase 59 H 12-53 U/L Urine Color [place] H Yellow Urine Clarity Ex.turbid Clear Urine pH 5.5 5.0-9.0 Urine Specific [place] 1.020 1.001-1.035 Urine Protein 2+ H Negative Urine Ketones Trace Negative Urine Blood 3+ H Negative /uL Urine Nitrite Negative Negative Urine Bilirubin Negative Negative Urine Urobilinogen 2 H Negative mg/dL Urine Leukocyte Esterase 3+ Negative /uL Urine RBC 508 0 - 4 /hpf Urine WBC 2451 0 - 5 /hpf Urine WBC Clumps Present None Seen /hpf Urine Squamous Epithelial Cells None seen <5 /hpf Urine Bacteria Mod H None Seen /hpf Urine Mucus Few None Seen Urine Glucose Normal Normal mg/dL Assessment/Plan Assessment/Plan Assessment Septic shock Acute renal failure NSTEMI ? Cardiogenic shock Large left pleural effusion Morbid obesity Plan Admit the patient to ICU to the hospitalist Cardiology consultation Nephrology consult Radiology consult Continue heparin drip Continue vasoactive drips to keep the map greater than 60 systolic blood pressure greater than 90 Zosyn/vancomycin Continue treatment per orders Total critical care time excluding procedures performed is 55 minutes. Plan discussed with: Other My Orders Orders - LAURIE ALLISON Procedure Category Date Status Time Basic Metabolic Panel LAB 04/01/24 Logged 04:57 Albumin 25% (Albutein) PHA 04/01/24 Logged 05:00 Furosemide Injection PHA 04/01/24 Logged (Lasix Injection) 05:00 Piperacillin-Tazob PHA 04/01/24 Logged 3.375gm (Zosyn 3.375g 10:00 *[facility] CONS 04/01/24 Transmitted -[place] 04:57 * Radiologist Consult CONS 04/01/24 Transmitted 04:57 Urine Bacterial TRESSA 04/01/24 Logged Culture 04:57 Blood Culture TRESSA 04/01/24 Logged 04:57 Admit ADMIT 04/01/24 Transmitted 04:57 Ondansetron Hcl PHA 04/01/24 Transmitted (Zofran) 05:00 Complete Blood Count LAB 04/02/24 Verified 04:00 Comprehensive LAB 04/02/24 Verified Metabolic Panel 04:00 Npo (Nothing By DIET 04/01/24 Transmitted Mouth) Diet Breakfast Echo 2d Mode Cardiac US 04/01/24 Logged DOP 04:57 Condition: Unstable [facility] 04/01/24 Transmitted 04:57 Acetaminophen Tablet [facility] 04/01/24 Transmitted (Tylenol Tablet) 05:00 Maintain Bed Rest [facility] 04/01/24 Transmitted 04:57 Sequential [facility] 04/01/24 Transmitted Compression Device Nitroglycerin [facility] 04/01/24 Transmitted Sublingual (Ntrostat 05:00 Morphine Sulfate PH[facility] 04/01/24 Transmitted Injection 05:00 Notify Of Changes [facility] 04/01/24 Transmitted From Base 04:57 [employer] For [facility] 04/01/24 Transmitted 24 Hours 04:57 Emergency Dysrhythmia [facility] 04/01/24 Transmitted Protocol 04:57 Rhythm Strips Once [facility] 04/01/24 Transmitted Every Shift 04:57 Oxygen By Nasal RT 04/01/24 Transmitted Cannula 04:57 Vancomycin Per PHA 04/01/24 Verified Pharmacy 05:00 Sodium Bicarb PH[facility] 04/01/24 Verified 50meq/50ml Vial 05:15 Date of Service: Apr 01, 2024 Billing Provider: LAURIE ALLISON Common Visit Codes: [id number] CARE 30-74 MIN [facility] Apr 01, 2024 05:20
[2024-04-01] MEDS: methylPREDNISolone SOD SUCC 125 MG/2 ML VL IV ONE (05:30)
[2024-04-01 05:56] LABS: Chloride 103 mmol/L (98-107); Sodium 136 mmol/L (136-145)
[2024-04-01 05:57] LABS: Anion Gap 14 (5-15); Carbon Dioxide 19 mmol/L (20-31)
[2024-04-01] MEDS: PIPERACILLIN-TAZOB 3.375GM 100 ML IV SCH (06:00)
[2024-04-01 06:02] LABS: Glucose 140 mg/dL (74-106)
[2024-04-01 06:13] LABS: Blood Urea Nitrogen 98 mg/dL (9-23); Potassium 6.3 mmol/L (3.5-5.1)
[2024-04-01] MEDS: ALBUTEROL SULF 2.5 MG/0.5ML(0.5%) NEB SOLN NEB SCH (06:22)
[2024-04-01 06:36] LABS: Base Excess -6.7 mmol/L (-2.0-3.0)
[2024-04-01] MEDS: ADENOSINE 6 MG/2 ML INJ IV ONE ×3 (07:12→07:42)
[2024-04-01] MEDS: SODIUM CHLORIDE 0.9% 500 ML IV ONE (07:30)
[2024-04-01] MEDS: CALCIUM GLUC 1,000mg/50ml-NS 50 ML IV ONE ×2 (07:30→15:53)
[2024-04-01] MEDS: ALBUTEROL SULF 2.5 MG/0.5ML(0.5%) NEB SOLN NEB ONE ×2 (07:39→14:23)
[2024-04-01] MEDS: AMIODARONE HCL (50 MG/ ML) 3 ML VIAL IV ONE (07:42)
[2024-04-01] MEDS: AMIODARONE 450mg/250ml AE 0 ML IV ONE (07:42)
[2024-04-01] MEDS: AMIODARONE BOLUS KIT 100 ML IV ONE (07:45)
[2024-04-01] MEDS: AMIODARONE 450mg/250ml AE 250 ML IV SCH ×2 (08:00→13:42)
--- NOTE | 2024-04-01 08:36 | DVH ---
Bilateral Chest Sonogram Clinical history: FLUID CHECK FOR POSSIBLE THORACENTESIS Technique: Limited sonographic evaluation of the right and left chest was performed. Findings/Impression: There is a trace bilateral pleural effusion.
[2024-04-01 08:49] LABS: INR 1.1 (0.9-1.15); Partial Thromboplastin Time 27.4 SEC (24.5-34.5); Prothrombin Time 11.6 sec (9.3-11.8)
[2024-04-01] MEDS: dilTIAZem 25 MG/5 ML VIAL IV ONE (09:28)
[2024-04-01] MEDS: fentaNYL Drip 2500mCg/250mlNS 250 ML IV SCH (10:00)
--- NOTE | 2024-04-01 10:40 | DVHINCON2 ---
Date of service: Apr 01, 2024 Referring Physician hospitalist Reason for Consultation Acute kidney injury History of Present Illness 68 year old obese female who does not have established medical care is brought in from home for SOB. She is covered in her out fecees. She was intubated in ER. She is currently on pressors nephrology called due to hyperkalemia Allergies: Coded Allergies: NO KNOWN ALLERGIES (Unverified , 03/31/24) Current Medications Current Medications Medications (Trade) Dose Ordered Sig/Destini Route PRN Reason Start Time Stop Time Status Last Admin Norepinephrine Bitartrate 250 ml @ 3.75 mls/hr Q24H IV 03/31/24 20:45 03/31/24 20:45 Calcium Gluconate/ Sodium Chloride 50 ml @ 100 mls/hr Q30M IV 03/31/24 23:45 04/01/24 00:44 DC 04/01/24 00:15 Heparin Sodium/ Dextrose 250 ml @ 18 mls/hr [id number] IV 03/31/24 23:45 UNV Heparin Sodium/ Dextrose 250 ml @ 10 mls/hr Q24H IV 04/01/24 01:00 04/01/24 09:45 DC 04/01/24 01:48 Midazolam HCl 50 ml @ 1 mls/hr Q24H IV 04/01/24 01:30 04/01/24 01:40 Vasopressin 20 units/Sodium Chloride 100 ml @ 9 mls/hr Q11H7M IV 04/01/24 01:30 04/01/24 01:39 Propofol 100 ml @ 4.5 mls/hr [id number] IV 04/01/24 02:30 04/01/24 02:30 Phenylephrine HCl 250 ml @ 30 mls/hr Q8H20M IV 04/01/24 02:45 04/01/24 02:45 Albumin Human 50 ml @ 100 mls/hr Q8H IV 04/01/24 05:00 04/01/24 21:29 04/01/24 05:00 Piperacillin Sod/ Tazobactam Sod 100 ml @ 25 mls/hr Q12H IV 04/01/24 06:00 04/01/24 06:00 Vancomycin HCl 0 ml @ 0 mls/hr UD IV 04/01/24 05:00 Ondansetron HCl (Zofran) 4 mg Q4HP PRN IV NAUSEA / VOMITING 04/01/24 05:00 Acetaminophen (Tylenol Tablet) 650 mg Q6HP PRN PO PAIN SCALE 1-3 OR TEMP>100.4 04/01/24 05:00 Nitroglycerin (Ntrostat Sublingual) 0.4 mg Q5MINP PRN SL FOR CHEST PAIN 04/01/24 05:00 Morphine Sulfate 2 mg Q30M PRN IV FOR CHEST PAIN 04/01/24 05:00 Albuterol (Ventolin Medneb) 2.5 mg Q6HR NEB 04/01/24 06:00 04/01/24 06:22 Methylprednisolone Sodium Succinate (Solu Medrol) 60 mg BID IV 04/01/24 10:00 Amiodarone HCl 250 ml @ 33.333 mls/ hr Q7H30M IV 04/01/24 08:00 04/01/24 13:59 04/01/24 08:00 Amiodarone HCl 250 ml @ 16.667 mls/ hr Q15H IV 04/01/24 14:00 Sodium Bicarbonate 150 ml/Dextrose 1,150 ml @ 100 mls/hr [id number] IV 04/01/24 08:15 Heparin Sodium/ Dextrose 250 ml @ 13 mls/hr [id number] IV 04/01/24 09:45 Fentanyl Citrate 250 ml @ 2.5 mls/hr Q24H IV 04/01/24 10:00 UNV Review of Systems cannot obtain due to critical illness H&P Exam Vital Signs/I&O Vital Sign Date Time Temp Pulse Resp B/P (MAP) Pulse Ox O2 Delivery O2 Flow Rate FiO2 04/01/24 09:59 97 32 104/46 (65) 97 50 04/01/24 06:15 99.1 99.1 03/31/24 21:10 Facial BiPAP Mask 03/31/24 20:10 15 Intake and Output 03/31/24 04/01/24 19:00 07:00 Intake Total 1935.25 ml Balance 1935.25 ml Intake IV Total 1935.25 ml Physical Exam obese white female intubated sedated rrr rales 1+ edema whipple cloudy urine Labs/Diagnostic Data Labs/Diagnostic Data Laboratory Tests Test 04/01/24 07:18 04/01/24 06:30 04/01/24 05:28 04/01/24 05:22 Range/Units Prothrombin Time 11.6 9.3-11.8 sec Prothrombin Time INR 1.10 0.9-1.15 Activated Partial Thromboplast Time 27.4 24.5-34.5 SEC D-Dimer, Quantitative 3.62 H 0.0-0.49 mg/L FEU Blood Gas Specimen Type Arterial Blood Gas Sample Site Arterial line Blood Gas Patient Temperature 37.0 Arterial Blood Date Drawn [id number] Arterial Blood pH 7.332 L 7.350-7.450 Arterial Blood Partial Pressure CO2 35.6 32.0-45.0 mmHg Arterial Blood Partial Pressure O2 81.1 L 83.0-108.0 mmHg Arterial Blood HCO3 18.4 L 21.0-28.0 mmol/L Arterial Blood Oxygen Saturation 95.2 94.0-98.0 % Arterial Blood Base Excess -6.7 L -2.0-3.0 mmol/L Arterial Blood Oxyhemoglobin 94.1 94.0-98.0 % Arterial Blood Carboxyhemoglobin 0.5 0.5-1.5 % Arterial Blood Methemoglobin 0.7 0.0-1.5 % Mnoster Test N/a Blood Gas Total Hemoglobin 11.40 L 12.0-16.0 g/dL Blood Gas Set Respiration Rate 24.0 Blood Gas Modality Vent - ac Blood Gas Spontaneous Rate 27 FiO2 % 70.0 Blood Gas Tidal Volume 500.0 Blood Gas PEEP or CPAP 10.0 Sodium Level 136 136-145 mmol/L Potassium Level 6.3 *H 3.5-5.1 mmol/L Chloride Level 103 98-107 mmol/L Carbon Dioxide Level 19 L 20-31 mmol/L Anion Gap 14 5-15 Blood Urea Nitrogen 98 *H 9-23 mg/dL Creatinine 5.78 H 0.550-1.02 mg/dL Glomerular Filtration Rate Calc 8 >90 mL/min BUN/Creatinine Ratio 17.0 10.0-20.0 Serum Glucose 140 H 74-106 mg/dL Calcium Level 8.0 L 8.7-10.4 mg/dL Creatine Kinase 47 34-145 U/L Test 04/01/24 02:20 04/01/24 01:41 04/01/24 00:55 04/01/24 00:47 Range/Units Blood Gas Specimen Type Arterial Arterial Blood Gas Sample Site Left radial Right radial Blood Gas Patient Temperature 37.0 37.0 Arterial Blood Date Drawn [id number] Arterial Blood pH 7.242 *L 7.164 *L 7.350-7.450 Arterial Blood Partial Pressure CO2 48.0 H 54.7 H 32.0-45.0 mmHg Arterial Blood Partial Pressure O2 79.6 L 72.9 L 83.0-108.0 mmHg Arterial Blood HCO3 20.2 L 19.2 L 21.0-28.0 mmol/L Arterial Blood Oxygen Saturation 92.2 L 89.2 L 94.0-98.0 % Arterial Blood Base Excess -7.0 L -9.5 L -2.0-3.0 mmol/L Arterial Blood Oxyhemoglobin 91.2 L 88.4 L 94.0-98.0 % Arterial Blood Carboxyhemoglobin 0.4 L 0.4 L 0.5-1.5 % Arterial Blood Methemoglobin 0.7 0.5 0.0-1.5 % Monster Test Yes Modified Blood Gas Total Hemoglobin 10.20 L 11.80 L 12.0-16.0 g/dL Blood Gas Set Respiration Rate 24.0 20.0 Blood Gas Modality Vent - ac Vent - ac FiO2 % 70.0 50.0 Blood Gas Tidal Volume 450.0 450.0 Blood Gas PEEP or CPAP 10.0 10.0 Specimen Drawn By Ladi faustin rrt Blood Gas Critical Value Read Back Yes Yes Blood Gas Notified Whom ros Sandoval md, Dr. Blood Gas Notified Time [id number] Blood Gas Notified By Ladi faustin [place] commissioner Rt b [place] POC Glucose 133 H 70-106 mg/dl Troponin I High Sensitivity 1684 *H </=34 ng/L Test 03/31/24 22:22 03/31/24 20:52 03/31/24 20:47 03/31/24 20:42 Range/Units Lactic Acid Level 3.4 *H 3.3 *H 0.4-2.0 mmol/L Troponin I High Sensitivity 1515 *H 1469 *H </=34 ng/L Blood Gas Specimen Type Arterial Blood Gas Sample Site Left radial Blood Gas Patient Temperature 37.0 Arterial Blood Date Drawn [id number] Arterial Blood pH 7.386 7.350-7.450 Arterial Blood Partial Pressure CO2 31.7 L 32.0-45.0 mmHg Arterial Blood Partial Pressure O2 69.6 L 83.0-108.0 mmHg Arterial Blood HCO3 18.6 L 21.0-28.0 mmol/L Arterial Blood Oxygen Saturation 92.5 L 94.0-98.0 % Arterial Blood Base Excess -5.5 L -2.0-3.0 mmol/L Arterial Blood Oxyhemoglobin 91.4 L 94.0-98.0 % Arterial Blood Carboxyhemoglobin 0.6 0.5-1.5 % Arterial Blood Methemoglobin 0.6 0.0-1.5 % Monster Test Yes Blood Gas Total Hemoglobin 11.80 L 12.0-16.0 g/dL Blood Gas Liter Flow 4.00 Blood Gas Modality Nasal cannula FiO2 % 36.0 Specimen Drawn By Ladi faustin rrt White Blood Count 25.3 H 4.4-10.8 10^3/uL Red Blood Count 4.53 4.0-5.20 10^6/uL Hemoglobin 10.8 L 12.2-16.2 g/dL Hematocrit 34.8 L 36.0-46.0 % Mean Corpuscular Volume 76.8 L 80.0-100.0 fL Mean Corpuscular Hemoglobin 23.8 L 28.0-32.0 pg Mean Corpuscular Hemoglobin Concent 31.0 L 32.0-36.0 g/dL Red Cell Distribution Width 18.8 H 11.8-14.3 % Platelet Count 246 140-450 10^3/uL Mean Platelet Volume 9.0 6.9-10.8 fL Neutrophils (%) (Auto) 84.8 H 37.0-80.0 % Lymphocytes (%) (Auto) 11.2 10.0-50.0 % Monocytes (%) (Auto) 3.4 0.0-12.0 % Eosinophils (%) (Auto) 0.1 0.0-7.0 % Basophils (%) (Auto) 0.5 0.0-2.0 % Neutrophils # (Auto) 21.5 H 1.6-8.6 10 ^3/uL Lymphocytes # (Auto) 2.8 0.4-5.4 10 ^3/uL Monocytes # (Auto) 0.9 0-1.3 10 ^3/uL Eosinophils # (Auto) 0 0-0.8 10 ^3/uL Basophils # (Auto) 0.1 0-0.2 10 ^3/uL Nucleated Red Blood Cells 0.0 % Prothrombin Time 11.9 H 9.3-11.8 sec Prothrombin Time INR 1.13 0.9-1.15 Activated Partial Thromboplast Time 23.7 L 24.5-34.5 SEC Sodium Level 133 L 136-145 mmol/L Potassium Level 6.0 *H 3.5-5.1 mmol/L Chloride Level 102 98-107 mmol/L Carbon Dioxide Level 17 L 20-31 mmol/L Anion Gap 14 5-15 Blood Urea Nitrogen 98 *H 9-23 mg/dL Creatinine 5.67 H 0.550-1.02 mg/dL Glomerular Filtration Rate Calc 8 >90 mL/min BUN/Creatinine Ratio 17.3 10.0-20.0 Serum Glucose 129 H 74-106 mg/dL Calcium Level 8.0 L 8.7-10.4 mg/dL Total Bilirubin 0.5 0.2-1.0 mg/dL Aspartate Amino Transferase (AST) 41 H 13-40 U/L Alanine Aminotransferase (ALT) 17 7-40 U/L Alkaline Phosphatase 128 H 46-116 U/L B-Type Natriuretic Peptide 274.69 0-100 pg/mL Total Protein 6.6 5.7-8.2 g/dL Albumin 3.1 L 3.2-4.8 g/dL Lipase 59 H 12-53 U/L Urine Color Banks H Yellow Urine Clarity Ex.turbid Clear Urine pH 5.5 5.0-9.0 Urine Specific Scott 1.020 1.001-1.035 Urine Protein 2+ H Negative Urine Ketones Trace Negative Urine Blood 3+ H Negative /uL Urine Nitrite Negative Negative Urine Bilirubin Negative Negative Urine Urobilinogen 2 H Negative mg/dL Urine Leukocyte Esterase 3+ Negative /uL Urine RBC 508 0 - 4 /hpf Urine WBC 2451 0 - 5 /hpf Urine WBC Clumps Present None Seen /hpf Urine Squamous Epithelial Cells None seen <5 /hpf Urine Bacteria Mod H None Seen /hpf Urine Mucus Few None Seen Urine Glucose Normal Normal mg/dL Assessment Acute kidney injury ckd unspecified respiratory failure NSTEMI septic shock metabolic acidosis b/l renal stones w/ hydronephrosis morbid obesity hyperkalemia critically ill currently on 3 pressors start bicarb drips increase pressors IV abx rec nephrostomy tubes to relieve obstruction if condition does not improve with medical therapy rec HD critical care time 40mins Plan discussed with: Other KLEVER VILLALBA MD Apr 01, 2024 10:40
[2024-04-01] MEDS: PHENYLEPHRINE INJ 80 MG in SODIUM CHL 0.9% 242 ML IV SCH (11:35)
--- NOTE | 2024-04-01 12:04 | DVHPNRES ---
Progress Note Date Seen: Apr 01, 2024 Resident Creating Document: KEVON BLANTON RESIDENT Has the PT tested + for MRSA If YES, has PT been informed?: No Medical Necessity Reason Pt with a Central, PICC or Fol: Yes Subjective Review of Systems This is a 68-year-old female with unknown past medical history who was transferred from another facility ([facility]) for higher level of care. The patient initially was treated at that facility for shortness of breaths and back pain. The patient was transferred to our facility for higher level of care. The patient on arrival to the ED was tachypneic with severe respiratory failure, tachycardic rhythm consistent with atrial fibrillation and was saturating in the 70s. Initially placed on non-rebreather mask and then emergently intubated to protect airway. The patient was started on amiodarone drip 1 milligram/minute, phenylephrine, vasopressin and levophed. Patient initially was started on broad-spectrum antibiotics with vancomycin and Zosyn but for renal protection, since GFR was less than 10 and to have a more broad- spectrum coverage we added meropenem and discontinued Zosyn. To the ICU for further assessment and management. Patient seen and examined at bedside. The patient is currently sedated on propofol, midazolam and connected to mechanical ventilator on the following parameters: VT 500, RR 24, FiO2 60%, PEEP 10, sat 97%. Initial chest x-ray showed severe right lower lobe opacities consistent with consolidation versus severe right-sided pleural effusion. Chest ultrasound confirmed bilateral pleural effusion. We consulted interventional radiologist for right-sided thoracentesis. A CT scan of the chest and abdomen was performed showing partially loculated right pleural effusion and consolidations in the right middle and lower lobes. There was also mild cardiomegaly and interstitial pulmonary edema. There is also right hydronephrosis with a 1.9 cm calculus into the right UPJ. There is another 2.6 cm stalk horn appearing calculi causing mid to lower pole left hydronephrosis. nephrology on board. Urology was consulted for bilateral nephrostomy tube placement. Interventional radiologist performed right-sided thoracentesis removing 250 mL of fluids and sent to analysis. ROS unable to be obtained due to patient been intubated. Objective vital signs Vital Sign Date Time Temp Pulse Resp B/P (MAP) Pulse Ox O2 Delivery O2 Flow Rate FiO2 04/01/24 11:34 121/38 04/01/24 09:59 97 32 97 50 04/01/24 06:15 99.1 99.1 03/31/24 21:10 Facial BiPAP Mask 03/31/24 20:10 15 Total Intake and Output 03/31/24 03/31/24 04/01/24 15:00 23:00 07:00 Intake Total 15.0 ml 2061.25 ml Balance 15.0 ml 2061.25 ml medications Current Medications Medications Dose Ordered Sig/Destini Route Start Time Stop Time Status Last Admin Dose Admin Norepinephrine Bitartrate 250 ml @ 3.75 mls/hr Q24H IV 03/31/24 20:45 04/01/24 11:33 56.25 MLS/HR Heparin Sodium/ Dextrose 250 ml @ 18 mls/hr [id number] IV 03/31/24 23:45 UNV Midazolam HCl 50 ml @ 1 mls/hr Q24H IV 04/01/24 01:30 04/01/24 11:34 9 MLS/HR Vasopressin 20 units/Sodium Chloride 100 ml @ 9 mls/hr Q11H7M IV 04/01/24 01:30 04/01/24 11:34 9 MLS/HR Propofol 100 ml @ 4.5 mls/hr [id number] IV 04/01/24 02:30 04/01/24 02:30 9 MLS/HR Phenylephrine HCl 250 ml @ 30 mls/hr Q8H20M IV 04/01/24 02:45 04/01/24 02:45 30 MLS/HR Albumin Human 50 ml @ 100 mls/hr Q8H IV 04/01/24 05:00 04/01/24 21:29 04/01/24 05:00 100 MLS/HR Piperacillin Sod/ Tazobactam Sod 100 ml @ 25 mls/hr Q12H IV 04/01/24 06:00 04/01/24 06:00 25 MLS/HR Vancomycin HCl 0 ml @ 0 mls/hr UD IV 04/01/24 05:00 Ondansetron HCl 4 mg Q4HP PRN IV 04/01/24 05:00 Acetaminophen 650 mg Q6HP PRN PO 04/01/24 05:00 Nitroglycerin 0.4 mg Q5MINP PRN SL 04/01/24 05:00 Morphine Sulfate 2 mg Q30M PRN IV 04/01/24 05:00 Albuterol 2.5 mg Q6HR NEB 04/01/24 06:00 04/01/24 11:46 2.5 MG Methylprednisolone Sodium Succinate 60 mg BID IV 04/01/24 10:00 Amiodarone HCl 250 ml @ 33.333 mls/ hr Q7H30M IV 04/01/24 08:00 04/01/24 13:59 04/01/24 08:00 33.333 MLS/HR Amiodarone HCl 250 ml @ 16.667 mls/ hr Q15H IV 04/01/24 14:00 Sodium Bicarbonate 150 ml/Dextrose 1,150 ml @ 100 mls/hr [id number] IV 04/01/24 08:15 Heparin Sodium/ Dextrose 250 ml @ 13 mls/hr [id number] IV 04/01/24 09:45 Fentanyl Citrate 250 ml @ 2.5 mls/hr Q24H IV 04/01/24 10:00 Phenylephrine HCl 80 mg/Sodium Chloride 250 ml @ 7.5 mls/hr Q24H IV 04/01/24 10:45 04/01/24 11:35 26.25 MLS/HR Norepinephrine Bitartrate 32 mg/ Sodium Chloride 250 ml @ 0.938 mls/ hr Q24H IV 04/01/24 10:45 Examination Physical Examination General: Patient sedated on mechanical ventilator: VT 500, RR 24, FiO2 60%, PEEP 10, sat 97% HEENT: Normocephalic, atraumatic, moist mucous membranes Respiratory/pulmonary: There are no breath sounds auscultable on the right lung amaya especially in the middle and lower lobe. Decreased breath sounds on right lung episodes. On the left lung there is decrease of breath sounds and completely diminished at the base of the lung. Cardiovascular: Normal heart sounds S1 and S2 with no associated murmurs Abdomen: Abdomen slightly distended, there is no pain to palpation in any of the abdominal quadrants, no palpable masses. Extremities: There is no pitting edema of the lower extremities. Peripheral Pulses: 3+ Radial (R). 3+ Radial (L). 3+ Dorsalis pedis (R). 3+ Dorsalis pedis(L) Skin: There is dry skin in bilateral lower extremities with scales and excoriations. Neurological: Sedated, RASS -3 laboratory and microbiology Laboratory Tests 04/01/24 05:28 03/31/24 20:47 Test 04/01/24 05:28 Range/Units Serum Glucose 140 H 74-106 mg/dL Problem List/Assessment/Plan Problem List/Assessment/Plan Assessment/Plan Neurology Sedation -currently on midazolam and propofol Vasopressors -currently maximized on Levophed, vasopressin, phenylephrine Respiratory Acute hypoxic respirtory failure likel due to right-sided pleural effusion and consolidation on right middle and lower lobes -initial chest x-ray showed severe right lower lobe opacities consistent with either consolidation or moderate to severe pleural effusion -CT of the chest and abdomen showed moderate partial loculated right pleural effusion and consolidation on right middle/lower lobes. Mild cardiomegaly and interstitial pulmonary edema. It also showed right hydronephrosis with 1.9 cm calculus into the right UPJ. There is also a 2.6 cm staghorn appearing calculus causing mid to lower pole left hydronephrosis. -the patient was initially started on Zosyn, vancomycin and cefepime. We discontinued Zosyn and cefepime. -changed vancomycin to linezolid in the setting of kidney impairment -start renal dose of IV meropenem -consulted interventional radiologist which performed right-sided thoracentesis removing 250 mL of fluid which were sent to analysis. -currently on mechanical ventilator on the following parameters: VT 500, RR 24, FiO2 60%, PEEP 10, saturating 97%. Sepsis in the setting of loculated right-sided pleural effusion and pneumonia -ordered blood cultures, sputum cultures and urine culture -currently on IV meropenem and linezolid -S/P right-sided thoracentesis removing 250 mL of fluids Cardiology Acute on chronic systolic/diastolic heart failure -BNP came back elevated at 274.69 -initial EKG showed sinus tachycardia with PACs but no ST segment elevation or depression at that time -troponins came back elevated at 1469 and peaked up to 1684 -echocardiogram is still pending NSTEMI type II ? -troponins came back elevated at 1469 and peaked up to 1684 -Trend trops Atrial fibrilation with RVR -patient was placed on amiodarone drip -CHADS VASC score HAS BLED score -Currently on hep drip Nephrology Bilateral hydronephrosis -CT scan of the chest and abdomen showed right hydronephrosis with 1.9 cm calculus into the right UPJ, there was also a 2.6 cm staghorn appearing calculus causing mid to lower pole left hydronephrosis. -nephrology on board -consulted Urology for bilateral nephrostomy tube placement CHRISTOPH likely postobstructive nephropathy -most likely secondary to bilateral renal calculi -creatinine was 5.78 and BUN 98 -nephrology and urology on board -consulted Urology for bilateral nephrostomy tube placement, if therapy does not improve patient might need hemodialysis as last resource Hyperkalemia -potassium was 6.3 this morning, hyperkalemia protocol was given once -repeated potassium was 6.0, monitor K closely morbid obesity Lines: IJ right triple-lumen placed on 03/31/2024 Peripheral in right wrist placed on 03/31/2024 Peripheral in left forearm placed on 03/31/2024 Goals of care discussed with the medical team for >23min Critical time spent > 81 min including dw family/daughter Plan discussed with Dr. Ogden Plan discussed with: Other My Orders My Orders Orders - KEVON BLANTON Procedure Category Date Status Time * Radiologist Consult CONS 04/01/24 Transmitted 09:47 Fentanyl Drip PHA 04/01/24 In Process 2500mcg/250mlns 10:00 Rass Sedation Scale NADRIA 04/01/24 In Process 09:58 Mrsa Screen TRESSA 04/01/24 In Process 11:19 Date of Service: Apr 01, 2024 Billing Provider: LAURIE OGDEN MD Common Visit Codes: [id number] CARE 30-74 MIN, [id number] CARE-EACH +30MIN KEVON BLANTON RESIDENT Apr 01, 2024 12:04 LAURIE OGDEN MD Apr 05, 2024 19:49
[2024-04-01] MEDS: SODIUM BICARB 50mEq/50ml Vial 150 ML in D5W 5% 1,000 ML IV SCH (12:12)
[2024-04-01] MEDS: BUMETANIDE 2.5mg/10ml (0.25 mg/ml) INJ IV ONE ×2 (12:13→15:56)
[2024-04-01] MEDS: methylPREDNISolone SOD SUCC 125 MG/2 ML VL IV SCH (12:13)
[2024-04-01 12:49] LABS: Anion Gap 16 (5-15); Carbon Dioxide 19 mmol/L (20-31); Chloride 103 mmol/L (98-107); Sodium 138 mmol/L (136-145)
[2024-04-01 12:50] LABS: Calcium 7.7 mg/dL (8.7-10.4)
[2024-04-01 12:51] LABS: Hematocrit 29.3 % (36.0-46.0); Hemoglobin 9.1 g/dL (12.2-16.2); Mean Corpuscular Hemoglobin 24.5 pg (28.0-32.0); Mean Corpuscular Volume 79.2 fL (80.0-100.0); Platelet Count (auto) 304 10^3/uL (140-450); Red Cell Distribution Width 19.2 % (11.8-14.3); White Blood Cell 23.7 10^3/uL (4.4-10.8)
[2024-04-01 12:55] LABS: BUN/Creatinine Ratio 17.4 (10.0-20.0); Glucose 237 mg/dL (74-106)
[2024-04-01 12:56] LABS: Basophils % (manual) 0 (0.0-2.0); Blast Cells 0; Metamyelocytes % 0; Myelocytes % 0; Promyelocytes % 0; Reactive Lymphocytes 0
--- NOTE | 2024-04-01 13:05 | DVHINCON2 ---
Date of service: Apr 01, 2024 Referring Physician Renee Jacobs NP Reason for Consultation Acute CHF, NSTEMI History of Present Illness Mariaa Doyle is a 68-year-old female who originally presented to [facility] with c/o acute worsening of SOB over the past 4 days. She denied any medical history. She was found to have AFib RVR and NSTEMI therefore she was transferred to this facility. Patient arrived to [facility], tachycardic in atrial fibrillation, tachypneic, and O2 saturating in the 70s. Patient was given adenosine without improvement in rate therefore she was started on amiodarone drip and eventually converted to NSR. This did not sustain for long and patient was eventually cardioverted. Patient was also emergently intubated for airway protection. Currently she is sedated and intubated in the ICU. Now maintaining NSR with short runs of Afib at a controlled rate. She is on multiple vasopressor medications and heparin drip as well. Sisters are at the bedside. I spoke with patient's sisters at the bedside who indicate the patient has not been seen by a medical professional and therefore has no medical history. There is a noted family history of HTN. Allergies: Coded Allergies: NO KNOWN ALLERGIES (Unverified , 03/31/24) Current Medications Current Medications Medications (Trade) Dose Ordered Sig/Destini Route PRN Reason Start Time Stop Time Status Last Admin Norepinephrine Bitartrate 250 ml @ 3.75 mls/hr Q24H IV 03/31/24 20:45 04/01/24 11:33 Calcium Gluconate/ Sodium Chloride 50 ml @ 100 mls/hr Q30M IV 03/31/24 23:45 04/01/24 00:44 DC 04/01/24 00:15 Heparin Sodium/ Dextrose 250 ml @ 18 mls/hr [id number] IV 03/31/24 23:45 UNV Heparin Sodium/ Dextrose 250 ml @ 10 mls/hr Q24H IV 04/01/24 01:00 04/01/24 09:45 DC 04/01/24 01:48 Midazolam HCl 50 ml @ 1 mls/hr Q24H IV 04/01/24 01:30 04/01/24 11:34 Vasopressin 20 units/Sodium Chloride 100 ml @ 9 mls/hr Q11H7M IV 04/01/24 01:30 04/01/24 11:34 Propofol 100 ml @ 4.5 mls/hr [id number] IV 04/01/24 02:30 04/01/24 02:30 Phenylephrine HCl 250 ml @ 30 mls/hr Q8H20M IV 04/01/24 02:45 04/01/24 02:45 Albumin Human 50 ml @ 100 mls/hr Q8H IV 04/01/24 05:00 04/01/24 21:29 04/01/24 12:39 Piperacillin Sod/ Tazobactam Sod 100 ml @ 25 mls/hr Q12H IV 04/01/24 06:00 04/01/24 11:56 DC 04/01/24 06:00 Vancomycin HCl 0 ml @ 0 mls/hr UD IV 04/01/24 05:00 Ondansetron HCl (Zofran) 4 mg Q4HP PRN IV NAUSEA / VOMITING 04/01/24 05:00 Acetaminophen (Tylenol Tablet) 650 mg Q6HP PRN PO PAIN SCALE 1-3 OR TEMP>100.4 04/01/24 05:00 Nitroglycerin (Ntrostat Sublingual) 0.4 mg Q5MINP PRN SL FOR CHEST PAIN 04/01/24 05:00 Morphine Sulfate 2 mg Q30M PRN IV FOR CHEST PAIN 04/01/24 05:00 Albuterol (Ventolin Medneb) 2.5 mg Q6HR NEB 04/01/24 06:00 04/01/24 11:46 Methylprednisolone Sodium Succinate (Solu Medrol) 60 mg BID IV 04/01/24 10:00 04/01/24 12:13 Amiodarone HCl 250 ml @ 33.333 mls/ hr Q7H30M IV 04/01/24 08:00 04/01/24 13:59 04/01/24 08:00 Amiodarone HCl 250 ml @ 16.667 mls/ hr Q15H IV 04/01/24 14:00 Sodium Bicarbonate 150 ml/Dextrose 1,150 ml @ 100 mls/hr [id number] IV 04/01/24 08:15 04/01/24 12:12 Heparin Sodium/ Dextrose 250 ml @ 13 mls/hr [id number] IV 04/01/24 09:45 Fentanyl Citrate 250 ml @ 2.5 mls/hr Q24H IV 04/01/24 10:00 Phenylephrine HCl 80 mg/Sodium Chloride 250 ml @ 7.5 mls/hr Q24H IV 04/01/24 10:45 04/01/24 11:35 Norepinephrine Bitartrate 32 mg/ Sodium Chloride 250 ml @ 0.938 mls/ hr Q24H IV 04/01/24 10:45 Meropenem 50 ml @ 17 mls/hr DAILY IV 04/02/24 10:00 UNV Review of Systems Unable to be completed due to patient mental state Vital Signs Vital Signs Date Time Temp Pulse Resp B/P (MAP) Pulse Ox O2 Delivery O2 Flow Rate FiO2 04/01/24 12:13 131/44 04/01/24 11:47 84 29 95 50 04/01/24 06:15 99.1 99.1 03/31/24 21:10 Facial BiPAP Mask 03/31/24 20:10 15 Physical Exam General: No acute distress. Morbidly obese Neck: Neck is supple. No masses or thyromegaly, no JVD, No carotid bruit. Respiratory: Respirations are non-labored. Diffuse rhonchi. Intubated Skin: Warm. CV: RRR, Normal heart sounds, no murmurs. +2 lower extremity edema. Neuro: Sedated Labs/Diagnostic Data Labs Test 04/01/24 12:27 04/01/24 07:18 04/01/24 06:30 04/01/24 05:22 Range/Units D-Dimer, Quantitative 3.62 H 0.0-0.49 mg/L FEU Blood Gas Specimen Type Arterial Blood Gas Sample Site Arterial line Blood Gas Patient Temperature 37.0 Arterial Blood Date Drawn [id number] Arterial Blood pH 7.332 L 7.350-7.450 Arterial Blood Partial Pressure CO2 35.6 32.0-45.0 mmHg Arterial Blood Partial Pressure O2 81.1 L 83.0-108.0 mmHg Arterial Blood HCO3 18.4 L 21.0-28.0 mmol/L Arterial Blood Oxygen Saturation 95.2 94.0-98.0 % Arterial Blood Base Excess -6.7 L -2.0-3.0 mmol/L Arterial Blood Oxyhemoglobin 94.1 94.0-98.0 % Arterial Blood Carboxyhemoglobin 0.5 0.5-1.5 % Arterial Blood Methemoglobin 0.7 0.0-1.5 % Monster Test N/a Blood Gas Total Hemoglobin 11.40 L 12.0-16.0 g/dL Blood Gas Set Respiration Rate 24.0 Blood Gas Modality Vent - ac Blood Gas Spontaneous Rate 27 FiO2 % 70.0 Blood Gas Tidal Volume 500.0 Blood Gas PEEP or CPAP 10.0 Creatine Kinase 47 34-145 U/L Test 04/01/24 02:20 04/01/24 01:41 04/01/24 00:47 03/31/24 22:22 Range/Units Specimen Drawn By Ladi faustin rrt Blood Gas Critical Value Read Back Yes Blood Gas Notified Whom ros Sandoval md Blood Gas Notified Time Blood Gas Notified By Ladi faustin rrt POC Glucose 133 H 70-106 mg/dl Troponin I High Sensitivity 1684 *H </=34 ng/L Lactic Acid Level 3.4 *H 0.4-2.0 mmol/L Test 03/31/24 20:52 03/31/24 20:47 03/31/24 20:42 Range/Units Blood Gas Liter Flow 4.00 Eosinophils (%) (Auto) 0.1 0.0-7.0 % Eosinophils # (Auto) 0 0-0.8 10 ^3/uL Basophils # (Auto) 0.1 0-0.2 10 ^3/uL Nucleated Red Blood Cells 0.0 % Total Bilirubin 0.5 0.2-1.0 mg/dL Aspartate Amino Transferase (AST) 41 H 13-40 U/L Alanine Aminotransferase (ALT) 17 7-40 U/L Alkaline Phosphatase 128 H 46-116 U/L B-Type Natriuretic Peptide 274.69 0-100 pg/mL Total Protein 6.6 5.7-8.2 g/dL Albumin 3.1 L 3.2-4.8 g/dL Lipase 59 H 12-53 U/L Urine Color Antelope H Yellow Urine Clarity Ex.turbid Clear Urine pH 5.5 5.0-9.0 Urine Specific [place] 1.020 1.001-1.035 Urine Protein 2+ H Negative Urine Ketones Trace Negative Urine Blood 3+ H Negative /uL Urine Nitrite Negative Negative Urine Bilirubin Negative Negative Urine Urobilinogen 2 H Negative mg/dL Urine Leukocyte Esterase 3+ Negative /uL Urine RBC 508 0 - 4 /hpf Urine WBC 2451 0 - 5 /hpf Urine WBC Clumps Present None Seen /hpf Urine Squamous Epithelial Cells None seen <5 /hpf Urine Bacteria Mod H None Seen /hpf Urine Mucus Few None Seen Urine Glucose Normal Normal mg/dL Plan/Recommendation Mariaa Doyle is a 68-year-old female who originally presented to [facility] with c/o acute worsening of SOB over the past 4 days. She denied any medical history. She was found to have AFib RVR and NSTEMI therefore she was transferred to this facility. Patient arrived to [facility], tachycardic in atrial fibrillation, tachypneic, and O2 saturating in the 70s. Patient was given adenosine without improvement in rate therefore she was started on amiodarone drip and eventually converted to NSR. This did not sustain for long and patient was eventually cardioverted. Patient was also emergently intubated for airway protection. Currently she is sedated and intubated in the ICU. Now maintaining NSR with short runs of Afib at a controlled rate. She is on multiple vasopressor medications and heparin drip as well. Sisters are at the bedside. I spoke with patient's sisters at the bedside who indicate the patient has not been seen by a medical professional and therefore has no medical history. There is a noted family history of HTN. Acute (new found) CHF NSTEMI Hypotension requiring vasopressor therapy Acute hypoxic and hypercapnic respiratory failure Pleural effusion Sepsis SOB Weakness Hyperkalemia Acute renal failure Bilateral renal stones Morbid obesity Anemia Cardiac recommendations: Request ECHO - BNP with mild elevation at 274.69 - Martines Cath with Strict I/O and daily weights to assess volume status - Diuresis per nephrology (creat 5.78) Vasopressors in ICU to maintain MAP > 60mmHg Troponin levels are elevated at 1469, 1515, and 1684. - There is three vessel calcification noted on CT of chest - Will need ischemic workup once kidney function is improved and stabilized - Heparin gtt infusing. Lipid panel and A1C requested Tachyarrhythmias present - Amiodarone gtt per protocol - Rate and rhythm surveillance ongoing Hyperkalemia - Management per nephrology - Planned for bilateral nephrostomy tube placements. Follow with nephrology recommendations Follow with pulmonology recommendations Follow with ID recommendations Cardiac monitoring Hemodynamic monitoring. Avoid hypertension and hypotension. Monitor and maintain electrolytes and renal function. Supplement as needed to maintain K > 4.0 and Mg > 2.0. Monitor Hgb and transfuse if Hgb < 7.0. Lifestyle and risk modification counseling All available labs, EKGs, and images were personally reviewed Patient's status, findings, and plan of care was discussed and reviewed with supervising physician Dr. Parks, who is in agreement with current plan of care. Plan of care discussed with and agreed upon by the family/Primary RN. Prognosis: Guarded Thank you for allowing me to participate in the care of this patient. Further recommendations will depend on clinical progression, hospitalist, and other consultants. Will continue to follow with Primary. If you have any questions, please do not hesitate to contact me. A total of 75 minutes was spent reviewing the patient record, examining the patient, making a diagnostic and therapeutic plan, discussing this plan with medical personnel, following up on diagnostic studies and following the patient for clinical stability including any and all procedures. At least 50% of this time was spent in direct, [id number] contact. Plan discussed with: Other (RN) Provider Statement: I have reviewed the case with my supervising physician. We have agreed with the plan of care. ELVA HERRERA Apr 01, 2024 13:05
[2024-04-01 13:19] LABS: Band Neutrophils % (manual) 32; Eosinophils % (manual) 1 (0-7); Hypochromia Slight; Lymphocytes % (manual) 15 (10.0-50.0); Monocytes % (manual) 2 (0-12); Platelet Estimate Adequate
[2024-04-01 13:27] LABS: Blood Urea Nitrogen 94 mg/dL (9-23); Potassium 6.1 mmol/L (3.5-5.1)
[2024-04-01 14:55] LABS: INR 1.12 (0.9-1.15); Partial Thromboplastin Time 25.3 SEC (24.5-34.5); Prothrombin Time 11.8 sec (9.3-11.8)
--- NOTE | 2024-04-01 15:35 | DVH ---
XY CHEST PORTABLE, HISTORY: THORA COMPARISON: XY CHEST XRAY 1 VIEW on DOS: 04/01/24, XY CHEST PORTABLE on DOS: 03/31/24 XY CHEST XRAY 1 VIEW on DOS: 04/01/24, XY CHEST PORTABLE on DOS: 03/31/24 TECHNICAL DATA: 1 view of the chest was obtained. FINDINGS: Lines and tubes: ET, NG, CVC in similar position Cardiomediastinal silhouette: enlarged Pulmonary vasculature: prominent Lung expansion: normal Lung airspace: right basilar consolidation Lung interstitium: normal Pleura: large right effusion Pneumothorax: no Bones: Unremarkable Other: no IMPRESSION: Similar lung aeration with large right pleural effusion. No pneumothorax seen. Stable lines and tubes.
[2024-04-01] MEDS: NOREPINEPHRINE BITARTRATE 32 MG in SODIUM CHL 0.9% 218 ML IV SCH (15:36)
--- NOTE | 2024-04-01 15:38 | DVH ---
US THORACENTESIS, HISTORY: RT PLUERAL EFFUSION PROCEDURE: Informed consent was obtained. The patient was lateral decubitus on the bed. A limited loc alization ultrasound of the right thorax was obtained, and the optimal approach was marked on the ski n. The area was prepped with chlorhexidine which was allowed to dry and draped in the usual sterile f ashion. Time out was performed. The skin and the soft tissues were infiltrated with 1% lidocaine. A 5 .5 Polish centesis needle catheter was advanced into right pleural space. Following aspiration of flu id, the catheter was advanced and the needle removed. About 250 cc of fluid was drained. Specimen/s w as/were sent for appropriate cultures/cytology/cultures and cytology. No immediate complication was i dentified. FINDINGS: Moderate size, complex and septated right pleural effusion. Aspirated fluid is thick and gr een in consistency. IMPRESSION: Right thoracentesis with 250 mL removed for laboratory analysis.
[2024-04-01] MEDS: SODIUM ZIRCONIUM CYCL 10 GM PAK PO ONE (15:53)
[2024-04-01] MEDS: ACETAMINOPHEN 325 MG TAB PO PRN (18:29)
[2024-04-01] MEDS: FUROSEMIDE INJECTION 100 MG in SODIUM CHL 0.9% 100 ML IV SCH (19:45)
[2024-04-01 19:51] LABS: Body Fluid White Blood Cells 52152 CUMM (0-200)
[2024-04-01 19:52] LABS: Body Fluid Red Blood Cells 3552 CUMM (0-2000)
[2024-04-01 20:58] LABS: Body Fluid Polymorphonuclear 69 % (0-25)
[2024-04-01 21:51] LABS: Triglycerides 329 mg/dL (< 150)
[2024-04-01 21:52] LABS: LDL Cholesterol 39 mg/dL (< 100)
[2024-04-01 21:53] LABS: Cholesterol 110 mg/dL (< 200); HDL Cholesterol < 5 mg/dL (40-59)
[2024-04-01] MEDS: SODIUM ZIRCONIUM CYCL 10 GM PAK PO SCH (22:28)
[2024-04-01] MEDS: LINEZOLID 600MG/300ML 300 ML IV SCH (22:29)
[2024-04-02] VITALS (118 sets, daily range): BP systolic 14–131; BP diastolic 10–104; PULSE 65–91; RESP 14–25; TEMP 96.3–99.9; O2SAT 81–98
[2024-04-02] MEDS: SODIUM BICARB 50mEq/50ml Vial 150 ML in D5W 5% 1,000 ML IV SCH (00:28)
[2024-04-02 00:51] LABS: INR 1.06 (0.9-1.15); Partial Thromboplastin Time 30.1 SEC (24.5-34.5); Prothrombin Time 11.2 sec (9.3-11.8)
[2024-04-02] MEDS: HEPARIN DRIP/D5W 100UNITS/ML 250 ML IV SCH ×2 (01:06→09:45)
[2024-04-02] MEDS: HEPARIN SODIUM (PORCINE) 5000 UNITS/ML 1ML VIAL IV ONE (01:09)
[2024-04-02 04:37] LABS: Hemoglobin 8.5 g/dL (12.2-16.2)
[2024-04-02 04:39] LABS: Mean Corpuscular Hgb Conc. 32.9 g/dL (32.0-36.0); Platelet Count (auto) 210 10^3/uL (140-450); Red Blood Cells 3.42 10^6/uL (4.0-5.20); Red Cell Distribution Width 18.7 % (11.8-14.3); White Blood Cell 20.2 10^3/uL (4.4-10.8)
[2024-04-02 04:45] LABS: Alanine Aminotransferase 14 U/L (7-40); Albumin 3.1 g/dL (3.2-4.8); Alkaline Phosphatase 107 U/L (46-116); Anion Gap 15 (5-15); Aspartate Aminotransferase 43 U/L (13-40); BUN/Creatinine Ratio 19.9 (10.0-20.0); Calcium 7.2 mg/dL (8.7-10.4); Carbon Dioxide 23 mmol/L (20-31); Chloride 97 mmol/L (98-107); Glucose 310 mg/dL (74-106); Magnesium 2.4 mg/dL (1.6-2.6); Sodium 135 mmol/L (136-145)
[2024-04-02 04:46] LABS: Bilirubin, Total 0.6 mg/dL (0.2-1.0); Total Protein 6.1 g/dL (5.7-8.2)
[2024-04-02 04:47] LABS: Band Neutrophils % (manual) 0; Basophils % (manual) 0 (0.0-2.0); Blast Cells 0; Eosinophils % (manual) 0 (0-7); Metamyelocytes % 0; Myelocytes % 0; Promyelocytes % 0; Reactive Lymphocytes 0
[2024-04-02 04:58] LABS: Lactic Acid w/Reflex 2.3 mmol/L (0.4-2.0)
[2024-04-02 05:06] LABS: Blood Urea Nitrogen 98 mg/dL (9-23)
--- NOTE | 2024-04-02 05:11 | DVH ---
CHEST RADIOGRAPH Indication:bilateral pleural effusions Technique: Single frontal view of the chest was obtained Comparison: XY CHEST PORTABLE on DOS: 04/01/24, XY CHEST XRAY 1 VIEW on DOS: 04/01/24, XY CHEST PORTABL E on DOS: 03/31/24, XY CHEST PORTABLE on DOS: 04/01/24 FINDINGS: Lines and tubes: ET, NG, CVC in similar position Cardiomediastinal silhouette: enlarged Pulmonary vasculature: prominent Lung expansion: normal Lung airspace: right basilar consolidation Lung interstitium: normal Pleura: large right effusion Pneumothorax: no Bones: Unremarkable Other: no IMPRESSION: Similar lung aeration with large right pleural effusion. No pneumothorax seen. Stable lines and tubes.
--- NOTE | 2024-04-02 07:20 | DVHSR ---
APPROVED REPORT EXAM: LIMITED Two-dimensional and M-mode echocardiogram with Doppler and color Doppler. Blood Pressure: 96/54 mmHg INDICATION ef RISK FACTORS Obesity: Height: 5'8, Weight: 330 DIMENSIONS LVDd4.6 (3.8-5.7cm)LA (2D)4.6 (1.9-4.0cm)Aortic Root3.5 (2.0-3.7cm) LVDs3.3 (2.5-4.0cm)LA (MM) (1.9-4.0cm)Aortic Cusp Exc1.6 (1.5-2.0cm) EF (%) 50.0 (55-70%)Rt. Atrium3.2 (1.9-4.0cm)Asc. Aorta3.0 cm IVSd0.9 (0.7-1.1cm)RV (D) (1.8-2.4cm) PWd1.3 (0.7-1.1cm) Mitral Valve MitralMitral Stenosis E wave0.92m/sMV Mean GR.mmHg A wave0.99m/sMV Peak GR.76mmHg E/A ratio0.92D MVAcm2 DECEL [id number] 1/2 Timems Aortic Valve Aortic ValveAortic Stenosis V11.08m/Silvino Mean GR.14mmHg V22.66m/Silvino Peak GR.28mmHg LVOT Diameter2.3 (1.8-2.4cm)Doppler AVA1.69cm2 Pulmonic Valve V21.43m/s Tricuspid Valve TR Velocity2.98m/s [id number] Conclusion Technically limited study secondary to poor acoustic windows. Left ventricle: Left ventricle was normal-sized. Mild concentric left ventricular hypertrophy was s een. LVEF was 55-60%. No gross wall motion abnormality was observed, but its presence can not be ru led out on the basis of this study. Right ventricle is mildly dilated with normal systolic function. Left atrium was mildly dilated. Ri ght atrium was normal-sized. Aortic valve was trileaflet. There was no aortic insufficiency. There was aortic sclerosis with no stenosis. There was trivial mitral/tricuspid regurgitation. Pulmonary valve was not well visualized . Right ventricular systolic pressure was assessed around 48 mm Hg. There was no pericardial effusion.
[2024-04-02 07:27] LABS: Base Excess 0.4 mmol/L (-2.0-3.0)
[2024-04-02 07:43] LABS: INR 1.08 (0.9-1.15); Partial Thromboplastin Time 41.6 SEC (24.5-34.5); Prothrombin Time 11.4 sec (9.3-11.8)
--- NOTE | 2024-04-02 08:19 | DVHPN2 ---
Progress Note - Dictate Date Seen: Apr 02, 2024 Has the PT tested + for MRSA If YES, has PT been informed?: No Medical Necessity Reason Pt with a Central, PICC or Fol: Yes vital signs Vital Sign Date Time Temp Pulse Resp B/P (MAP) Pulse Ox O2 Delivery O2 Flow Rate FiO2 04/02/24 07:26 77 24 113/49 (70) 93 50 04/02/24 06:45 98.1 208.6 04/02/24 06:30 Mechanical Ventilator+ 03/31/24 20:10 15 Total Intake and Output 04/01/24 04/01/24 04/02/24 15:00 23:00 07:00 Intake Total 1645.400 ml 2219.090 ml 2427.419 ml Output Total 1200 ml 1650 ml Balance 1645.400 ml 1019.090 ml 777.419 ml medications Current Medications Medications Dose Ordered Sig/Destini Route Start Time Stop Time Status Last Admin Dose Admin Heparin Sodium/ Dextrose 250 ml @ 18 mls/hr [id number] IV 03/31/24 23:45 UNV Midazolam HCl 50 ml @ 1 mls/hr Q24H IV 04/01/24 01:30 04/02/24 05:47 15 MLS/HR Vasopressin 20 units/Sodium Chloride 100 ml @ 9 mls/hr [id number] IV 04/01/24 01:30 04/01/24 22:30 9 MLS/HR Propofol 100 ml @ 4.5 mls/hr [id number] IV 04/01/24 02:30 04/02/24 06:13 31.5 MLS/HR Ondansetron HCl 4 mg Q4HP PRN IV 04/01/24 05:00 Acetaminophen 650 mg Q6HP PRN PO 04/01/24 05:00 04/01/24 18:29 650 MG Nitroglycerin 0.4 mg Q5MINP PRN SL 04/01/24 05:00 Morphine Sulfate 2 mg Q30M PRN IV 04/01/24 05:00 Albuterol 2.5 mg Q6HR NEB 04/01/24 06:00 04/02/24 06:27 2.5 MG Amiodarone HCl 250 ml @ 16.667 mls/ hr Q15H IV 04/01/24 14:00 04/02/24 02:10 16.667 MLS/HR Fentanyl Citrate 250 ml @ 2.5 mls/hr Q24H IV 04/01/24 10:00 Phenylephrine HCl 80 mg/Sodium Chloride 250 ml @ 7.5 mls/hr Q24H IV 04/01/24 10:45 04/02/24 02:10 16.875 MLS/HR Norepinephrine Bitartrate 32 mg/ Sodium Chloride 250 ml @ 0.938 mls/ hr Q24H IV 04/01/24 10:45 04/02/24 02:10 1.875 MLS/HR Meropenem 50 ml @ 17 mls/hr Q12HR IV 04/02/24 10:00 Linezolid 300 ml @ 150 mls/hr Q12HR IV 04/01/24 22:00 04/01/24 22:29 150 MLS/HR Furosemide 100 mg/ Sodium Chloride 110 ml @ 22 mls/hr Q5H IV 04/01/24 17:30 04/02/24 03:45 22 MLS/HR Zirconium Oxide 10 gm Q8HR PO 04/01/24 22:00 04/02/24 05:46 10 GM Aspirin 81 mg DAILY PO 04/02/24 10:00 Heparin Sodium/ Dextrose 250 ml @ 16 mls/hr [id number] IV 04/02/24 01:15 04/02/24 01:06 16 MLS/HR laboratory and microbiology Laboratory Tests 04/02/24 03:27 Test 04/02/24 03:27 Range/Units Serum Glucose 310 H 74-106 mg/dL Assessment/Plan Patient is a 68-year-old female who was transferred from [facility]. She originally presented to [facility] for shortness of breath ongoing for few days. She is intubated and is being managed in ICU. Information was obtained by reviewing the chart and communicating with staff. Reportedly, she presented with respiratory failure to [facility] (oxygen saturation was 88%) and over there was found to have white blood cell count of 26.6, hemoglobin of 11.1, creatinine of 5.6, potassium of 5.6 and troponin of 1.01. She was given 365 mg of aspirin in [facility]. She did have an episode of atrial fibrillation with RVR with questionable ST changes and was transferred to our facility for further care. She was also found to have right pleural effusion in [facility] and was diagnosed with non-STEMI. Intubated, on vent support. On pressure support. Obese. Mucosa is pale. Scattered rhonchi in the lungs is heard. Cardiac: Regular, no thrill/gallop. Abdomen is soft with increased bowel sounds. There is no gross mass. Extremities reveal 1+ edema bilaterally. Available past medical history includes obesity and questionable history of psoriasis. WBC: 25.3 - 23.7 - 20.2 Hemoglobin: 10.8 - 9.1 - 8.5 D-dimer: 3.62 Creatinine: 5.67 - 5.78 - 5.41 - 4.92 Potassium: 6.0 - 6.3 - 6.1 - 6.0 - 5.3 - 5.0 Lactic acid: 3.3 - 3.4 - 2.3 TSH: 1.71 BNP: 274.69 Troponin (high sensitive): 1469 - 1515 - 1684 Chest x-ray revealed: IMPRESSION: 1. Moderate right pleural effusion. 2. Cardiomegaly with mild pulmonary vascular congestion bilaterally. Repeat chest x-ray revealed: IMPRESSION: 1. Endotracheal tube and gastric tubes in place as described. 2. Right IJ central venous catheter projects over the lower SVC. 3. Mild cardiomegaly and prominence of the pulmonary vasculature. 4. Moderate to large right pleural effusion. Repeat chest x-ray revealed: IMPRESSION: Similar lung aeration with large right pleural effusion. No pneumothorax seen. Stable lines and tubes. Repeat chest x-ray revealed: IMPRESSION: Similar lung aeration with large right pleural effusion. No pneumothorax seen. Stable lines and tubes. CT scan of the chest/abdomen and pelvis revealed: IMPRESSION: 1. Moderate partially loculated right pleural effusion and consolidations in the right middle and lower lobes which could be pneumonia and/or atelectasis. 2. Mild cardiomegaly, mild interstitial pulmonary edema, and body wall edema. 3. There is a 1.9 cm calculus in the right UPJ with mild right hydronephrosis 4. There is a 2.6 cm somewhat staghorn appearing calculus in the left renal pelvis and UPJ causing mild predominantly mid to lower pole left hydronephrosis. Mild soft tissue stranding about the left renal pelvis which could be due to obstruction or superimposed infection. Correlate with urinalysis. 5. Partial duplication of the left renal collecting system without hydronephrosis in the upper pole. 6. Moderate right perinephric, right retroperitoneal, and bilateral extraperitoneal pelvis low-density fluid and very mild left retroperitoneal low-density fluid. This could be fluid related to bilateral renal obstructions and forniceal ruptures versus evolved retroperitoneal hematoma. This is suboptimally evaluated without intravenous contrast. 7. Fluid-filled small and large bowel loops which may be physiologic or related to enterocolitis and could be manifesting as loose stools and/or diarrhea. 8. Prominent endometrium measuring at least 2.8 cm, suboptimally evaluated by CT. Recommend characterization with nonemergent pelvic ultrasound if clinically indicated. 9. Mild hepatosplenomegaly. 10. Moderate three-vessel calcified coronary artery disease and mild aortic valve calcification. 11. Right IJ central venous catheter in place terminating in the low SVC. 12. Small soft tissue stranding in the right supraclavicular neck which could be blood products. 13. Endotracheal tube terminates above the mili. CT of the head revealed: IMPRESSION: 1. No acute intracranial abnormality. 2. Generalized cerebral volume loss and mild chronic microvascular ischemic change. 3. Partially imaged endotracheal tube. Chest ultrasound revealed: Findings/Impression: There is a trace bilateral pleural effusion. Thoracentesis: FINDINGS: Moderate size, complex and septated right pleural effusion. Aspirated fluid is thick and green in consistency. IMPRESSION: Right thoracentesis with 250 mL removed for laboratory analysis. EKG in [facility] revealed sinus tachycardia, poor R-wave progression old inferior wall AZ. later EKG revealed atrial fibrillation with RVR. Telemetry reveals sinus rhythm Echocardiogram revealed: Technically limited study secondary to poor acoustic windows. Left ventricle: Left ventricle was normal-sized. Mild concentric left ventricular hypertrophy was seen. LVEF was 55-60%. No gross wall motion abnormality was observed, but its presence can not be ruled out on the basis of this study. Right ventricle is mildly dilated with normal systolic function. Left atrium was mildly dilated. Right atrium was normal-sized. Aortic valve was trileaflet. There was no aortic insufficiency. There was aortic sclerosis with no stenosis. There was trivial mitral/tricuspid regurgitation. Pulmonary valve was not well visualized. Right ventricular systolic pressure was assessed around 48 mm Hg. There was no pericardial effusion. Patient is a 68-year-old morbidly obese patient who presented with respiratory failure to the hospital. Presentation is in favor of sepsis/septic shock. Multiorgan failure is observed. She is intubated and on vent support. She is on multiple pressor support. Life findings are in favor of acute renal failure. She also is known to have nephrolithiasis with history of staghorn calculi. Cardiac-ceballos, the patient did have episode of atrial fibrillation with RVR. She is found to have increased troponin. Presentation questions non-STEMI and possibly type 2 ischemia. Recognizing the presentation, ischemic workup should be postponed after clinical stability. Septic shock Multiorgan failure Acute respiratory failure on vent support Acute renal failure Nephrolithiasis Staghorn calculi Hydronephrosis Abnormal troponin, non-STEMI Atrial fibrillation with RVR Paroxysmal AFib Acute heart failure, diastolic Hepatosplenomegaly Pleural effusion Status post thoracentesis Morbid obesity Cardiac suggestion for management: Manage in ICU Follow-up electrolytes and kidney function tests and correct abnormalities Pressure support to keep mean arterial pressure above 65 Amiodarone drip Heparin drip Daily aspirin (81 mg daily) Sepsis workup and management as per primary team Evaluation and management of respiratory failure as per primary team/Pulmonary Evaluation and management of nephrolithiasis/hydronephrosis as per primary/Urology Evaluation and management of acute renal failure as per Nephrology Ischemic workup, after clinical stability Further evaluation and management as per above and clinical course. A total of 75 minutes was spent reviewing the patient record, examining the patient, making a diagnostic and therapeutic plan, discussing this plan with medical personnel, following up on diagnostic studies and following the patient for clinical stability excluding any and all procedures. At least 50% of this time was spent in direct, [id number] contact. Thank you for allowing me to participate in this patient's care. Further recommendations will depend on patient's clinical course. Please do not hesitate to contact me if you have any questions or concerns. This medical document was created using electronic medical record system with [employer] computerized dictation system. Although this document has been carefully reviewed, there may still be some phonetic and typographical errors. These areas are purely typographical due to the imperfection of the software programs, and do not reflect any compromise in the patient's medical care. Plan discussed with: Other (nurse) HERMINIO JOHNSON MD Apr 02, 2024 08:19
[2024-04-02 08:46] LABS: Lymphocytes % (manual) 11 (10.0-50.0); Monocytes % (manual) 7 (0-12); Platelet Estimate Adequate; Smudge Cells 1 /100 WBC
[2024-04-02] MEDS: ASPirin 81 mg TAB PO SCH (08:46)
[2024-04-02 08:47] LABS: Basophils # (auto) 0.1 10 ^3/uL (0-0.2); Basophils % (auto) 0.6 % (0.0-2.0)
[2024-04-02 08:50] LABS: Eosinophils # (auto) 0.4 10 ^3/uL (0-0.8); Eosinophils % (auto) 1.9 % (0.0-7.0); Hematocrit 24.6 % (36.0-46.0); Hemoglobin 8.4 g/dL (12.2-16.2); Mean Corpuscular Hemoglobin 25.5 pg (28.0-32.0); Mean Corpuscular Hgb Conc. 34.1 g/dL (32.0-36.0); Mean Corpuscular Volume 74.7 fL (80.0-100.0); Monocytes # (auto) 0.8 10 ^3/uL (0-1.3); Neutrophils # (auto) 17.1 10 ^3/uL (1.6-8.6); Neutrophils % (auto) 83.5 % (37.0-80.0); Nucleated Red Blood Cells % 0.2 %; Platelet Count (auto) 260 10^3/uL (140-450); Red Cell Distribution Width 18.8 % (11.8-14.3); White Blood Cell 20.5 10^3/uL (4.4-10.8)
--- NOTE | 2024-04-02 10:27 | DVHPNRES ---
Progress Note Date Seen: Apr 02, 2024 Resident Creating Document: KEVON BLANTON RESIDENT Has the PT tested + for MRSA If YES, has PT been informed?: No Medical Necessity Reason Pt with a Central, PICC or Fol: Yes Subjective Review of Systems This is a 68-year-old female with unknown past medical history who was transferred from another facility ([facility]) for higher level of care. The patient initially was treated at that facility for shortness of breaths and back pain. The patient was transferred to our facility for higher level of care. The patient on arrival to the ED was tachypneic with severe respiratory failure, tachycardic rhythm consistent with atrial fibrillation and was saturating in the 70s. Initially placed on non-rebreather mask and then emergently intubated to protect airway. The patient was started on amiodarone drip 1 milligram/minute, phenylephrine, vasopressin and levophed. Patient initially was started on broad-spectrum antibiotics with vancomycin and Zosyn but for renal protection, since GFR was less than 10 and to have a more broad- spectrum coverage we added meropenem and discontinued Zosyn. To the ICU for further assessment and management. Patient seen and examined at bedside. Patient is currently sedated on propofol and midazolam, currently on mechanical ventilator on the following parameters: VT 500, RR 24, FiO2 50%,PEEP 10.0, saturating 92%. Yesterday IR did right-sided thoracentesis removing only 250 mL of fluid. We will plan to place a right- sided chest tube to complete draining loculated fluid in more quantity. Morning chest x-ray was reviewed showing right and left lung opacities that are grossly unchanged compared to previous x-ray before thoracentesis. Patient is currently on IV meropenem and linezolid as well as on heparin drip, furosemide drip, amiodarone drip and vasopressors. Upon my examination right lung sounds are diminished on mid and lower lobes. Left lung sounds grossly clear. There is minimal swelling in the lower extremities. We will discontinue heparin drip because the patient we will possibly undergo right chest tube. Today a David catheter was placed in the left internal jugular vein, no complications at bedside, position of the catheter was reviewed with x-ray. Catheter is not exactly at the superior vena cava junction but is due to the size, in correct position ready to use. Patient is currently on IV meropenem and linezolid reason why we will monitor closely the platelets. We will start the patient on fentanyl and come down on the propofol. ROS unable to obtain due to patient's current status intubation. Objective vital signs Vital Sign Date Time Temp Pulse Resp B/P (MAP) Pulse Ox O2 Delivery O2 Flow Rate FiO2 04/02/24 09:17 116/54 04/02/24 09:00 73 24 93 50 04/02/24 06:45 98.1 208.6 04/02/24 06:30 Mechanical Ventilator+ 03/31/24 20:10 15 Total Intake and Output 04/01/24 04/01/24 04/02/24 15:00 23:00 07:00 Intake Total 1645.400 ml 2219.090 ml 2427.419 ml Output Total 1200 ml 1650 ml Balance 1645.400 ml 1019.090 ml 777.419 ml medications Current Medications Medications Dose Ordered Sig/Destini Route Start Time Stop Time Status Last Admin Dose Admin Heparin Sodium/ Dextrose 250 ml @ 18 mls/hr [id number] IV 03/31/24 23:45 UNV Midazolam HCl 50 ml @ 1 mls/hr Q24H IV 04/01/24 01:30 04/02/24 08:28 15 MLS/HR Vasopressin 20 units/Sodium Chloride 100 ml @ 9 mls/hr [id number] IV 04/01/24 01:30 04/02/24 09:17 9 MLS/HR Propofol 100 ml @ 4.5 mls/hr [id number] IV 04/01/24 02:30 04/02/24 08:26 31.5 MLS/HR Ondansetron HCl 4 mg Q4HP PRN IV 04/01/24 05:00 Acetaminophen 650 mg Q6HP PRN PO 04/01/24 05:00 04/01/24 18:29 650 MG Nitroglycerin 0.4 mg Q5MINP PRN SL 04/01/24 05:00 Morphine Sulfate 2 mg Q30M PRN IV 04/01/24 05:00 Albuterol 2.5 mg Q6HR NEB 04/01/24 06:00 04/02/24 06:27 2.5 MG Amiodarone HCl 250 ml @ 16.667 mls/ hr Q15H IV 04/01/24 14:00 04/02/24 02:10 16.667 MLS/HR Fentanyl Citrate 250 ml @ 2.5 mls/hr Q24H IV 04/01/24 10:00 Phenylephrine HCl 80 mg/Sodium Chloride 250 ml @ 7.5 mls/hr Q24H IV 04/01/24 10:45 04/02/24 02:10 16.875 MLS/HR Norepinephrine Bitartrate 32 mg/ Sodium Chloride 250 ml @ 0.938 mls/ hr Q24H IV 04/01/24 10:45 04/02/24 02:10 1.875 MLS/HR Meropenem 50 ml @ 17 mls/hr Q12HR IV 04/02/24 10:00 Linezolid 300 ml @ 150 mls/hr Q12HR IV 04/01/24 22:00 04/02/24 08:45 150 MLS/HR Furosemide 100 mg/ Sodium Chloride 110 ml @ 22 mls/hr Q5H IV 04/01/24 17:30 04/02/24 08:28 22 MLS/HR Zirconium Oxide 10 gm Q8HR PO 04/01/24 22:00 04/02/24 05:46 10 GM Aspirin 81 mg DAILY PO 04/02/24 10:00 04/02/24 08:46 81 MG Heparin Sodium/ Dextrose 250 ml @ 18 mls/hr [id number] IV 04/02/24 09:45 Examination Physical Examination General: Patient sedated on mechanical ventilator: VT 500, RR 24, FiO2 50%, PEEP 10, sat 92% HEENT: Normocephalic, atraumatic, moist mucous membranes Respiratory/pulmonary: There are no breath sounds auscultable on the right lung amaya especially in the middle and lower lobe. Decreased breath sounds on right lung episodes. On the left lung there is decrease of breath sounds and completely diminished at the base of the lung. Cardiovascular: Normal heart sounds S1 and S2 with no associated murmurs Abdomen: Abdomen slightly distended, there is no pain to palpation in any of the abdominal quadrants, no palpable masses. Extremities: There is minimal swelling in the lower extremities bilaterally. Peripheral Pulses: 3+ Radial (R). 3+ Radial (L). 3+ Dorsalis pedis (R). 3+ Dorsalis pedis(L) Skin: There is dry skin in bilateral lower extremities with scales and excoriations. Neurological: Sedated, RASS -3 laboratory and microbiology Laboratory Tests 04/02/24 08:29 04/02/24 03:27 Test 04/02/24 03:27 Range/Units Serum Glucose 310 H 74-106 mg/dL Microbiology Date/Time Source Procedure Growth Status 04/01/24 07:18 Blood Blood Culture - Preliminary Resulted Problem List/Assessment/Plan Problem List/Assessment/Plan Assessment/Plan Neurology Sedation -currently on midazolam and propofol, we will start fentanyl and start coming down on the propofol. Vasopressors -currently on Levophed, vasopressin, phenylephrine Respiratory Acute hypoxic respirtory failure likel due to right-sided pleural effusion and consolidation on right middle and lower lobes -initial chest x-ray showed severe right lower lobe opacities consistent with either consolidation or moderate to severe pleural effusion -CT of the chest and abdomen showed moderate partial loculated right pleural effusion and consolidation on right middle/lower lobes. Mild cardiomegaly and interstitial pulmonary edema. It also showed right hydronephrosis with 1.9 cm calculus into the right UPJ. There is also a 2.6 cm staghorn appearing calculus causing mid to lower pole left hydronephrosis. -the patient was initially started on Zosyn, vancomycin and cefepime. We discontinued Zosyn and cefepime. -changed vancomycin to linezolid in the setting of kidney impairment -start renal dose of IV meropenem -consulted interventional radiologist which performed right-sided thoracentesis removing 250 mL of fluid which were sent to analysis. -currently on mechanical ventilator on the following parameters: VT 500, RR 24, FiO2 50%, PEEP 10, saturating 92%. -possible right-sided chest tube placement today. Sepsis in the setting of loculated right-sided pleural effusion and pneumonia -ordered blood cultures, sputum cultures and urine culture -currently on IV meropenem and linezolid -Will monitor plateletes closely -S/P right-sided thoracentesis removing 250 mL of fluids. Today, chest x-ray show no changes compared to previous thoracentesis. There are still bilateral opacities greater in the right lower lobe. Cardiology Acute on chronic systolic/diastolic heart failure -BNP came back elevated at 274.69 -initial EKG showed sinus tachycardia with PACs but no ST segment elevation or depression at that time -troponins came back elevated at 1469 and peaked up to 1684 -echocardiogram is showing an LVEF of 55-60% with increased RVSP at 48 mmHg and no pericardial effusion -furosemide drip at 20 mg/hr NSTEMI type II ? -troponins came back elevated at 1469 and peaked up to 1684 -Trend trops Atrial fibrilation with RVR -patient was placed on amiodarone drip 0.5 mg/min -CHADS VASC score HAS BLED score -heparin drip was hold for right-sided chest tube placement and david catheter placement Nephrology Bilateral hydronephrosis -CT scan of the chest and abdomen showed right hydronephrosis with 1.9 cm calculus into the right UPJ, there was also a 2.6 cm staghorn appearing calculus causing mid to lower pole left hydronephrosis. -nephrology on board -consulted Urology for bilateral nephrostomy tube placement -David catheter placed on L IJ CHRISTOPH likely postobstructive nephropathy -most likely secondary to bilateral renal calculi -creatinine was 4.92 and BUN 98 -nephrology and urology on board -consulted Urology for bilateral nephrostomy tube placement, if therapy does not improve patient might need hemodialysis as last resource Hyperkalemia -potassium was 5.0 -monitor closely Lines: IJ right triple-lumen placed on 03/31/2024 Peripheral in right wrist placed on 03/31/2024 Peripheral in left forearm placed on 03/31/2024 David catheter placed in the left IJ placed on 04/02/2024 Goals of care discussed with the medical team for >23min Critical time spent > 81 min, excluding David catheter placement. long discussion with daughter- explained critical condition Plan discussed with Dr. Ogden Plan discussed with: Daughter, Son My Orders My Orders Orders - KEVON BLANTON RESIDENT Procedure Category Date Status Time Mrsa Screen TRESSA 04/01/24 In Process 11:19 Meropenem 500mg Ivpb PHA 04/02/24 In Process (Merrem 500mg/Ns) 10:00 Thoracentesis US 04/01/24 Resulted 14:25 Abg W/ Co-Ox RT 04/02/24 Logged 04:00 Chest Xray 1 View XY 04/02/24 Resulted 04:00 Type And Screen BBK 10/2/24 Logged 09:38 Date of Service: Apr 02, 2024 Billing Provider: LAURIE OGDEN MD Common Visit Codes: 42599-[id number] CARE 30-74 MIN, 72255-[id number] CARE-EACH +30MIN KEVON BLANTON RESIDENT Apr 02, 2024 10:27 LAURIE OGDEN MD Apr 03, 2024 12:34
[2024-04-02] MEDS: fentaNYL Drip 2500mCg/250mlNS 250 ML IV SCH (11:15)
[2024-04-02 11:43] LABS: Gastric Occult Blood Positive (Negative); Gastric Occult Blood pH 6
[2024-04-02 12:07] LABS: Glucose, Body Fluid <2 mg/dL (.); Protein, Body Fluid 4.4 g/dL (.)
[2024-04-02] MEDS: MEROPENEM 500MG IVPB 50 ML IV SCH (12:33)
[2024-04-02] MEDS: HEPARIN 1,000 UNITS/ml 1ML VIAL IV ONE (12:55)
--- NOTE | 2024-04-02 13:13 | DVHNC2 ---
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 Jones) Room prepared for procedure: Yes Certified Medical Technician performed hand hygien: Yes Maximal sterile barrier precau: Mask/Eye shield, Sterile gown, Cap, Sterlie gloves, Large sterlie drape Skin Preparation: Chlorhexidine gluconate Skin preparation completely dr: Yes Insertion site: Left, Internal jugular Central line catheter type: Dialysis non-tunneled Number of lumens: 2 Central line exchanged over a: No Antiseptic ointment applied to: No Post Assessment: Chest X-Ray Informed consent obtained: Yes Risks/benefits/alt described: Yes Notes Dr. Jones supervised, Dr. Angela and Dr. Sandra performed the catheter placement Date of Service: Apr 02, 2024 Billing Provider: LAURIE JONES MD Common Visit Codes: PROCEDURE ONLY Procedure Codes: [id number] NON-TUNNEL CV CATH KEVON BLANTON RESIDENT Apr 02, 2024 13:13 LAURIE JONES MD Apr 05, 2024 19:51
--- NOTE | 2024-04-02 13:45 | DVHPN2 ---
Progress Note - Dictate Date Seen: Apr 02, 2024 Has the PT tested + for MRSA If YES, has PT been informed?: No Medical Necessity Reason Pt with a Central, PICC or Fol: Yes The following are medically ne: Central Line, Whipple Catheter Subjective uop increased overnight with pressors hyperkalemia treated now improved vital signs Vital Sign Date Time Temp Pulse Resp B/P (MAP) Pulse Ox O2 Delivery O2 Flow Rate FiO2 04/02/24 12:42 113/50 04/02/24 11:06 73 24 93 50 04/02/24 10:46 Mechanical Ventilator+ 04/02/24 10:30 97.7 207.9 03/31/24 20:10 15 Total Intake and Output 04/01/24 04/01/24 04/02/24 15:00 23:00 07:00 Intake Total 1645.400 ml 2219.090 ml 2427.419 ml Output Total 1200 ml 1650 ml Balance 1645.400 ml 1019.090 ml 777.419 ml medications Current Medications Medications Dose Ordered Sig/Destini Route Start Time Stop Time Status Last Admin Dose Admin Heparin Sodium/ Dextrose 250 ml @ 18 mls/hr [id number] IV 03/31/24 23:45 UNV Midazolam HCl 50 ml @ 1 mls/hr Q24H IV 04/01/24 01:30 04/02/24 12:07 15 MLS/HR Vasopressin 20 units/Sodium Chloride 100 ml @ 9 mls/hr [id number] IV 04/01/24 01:30 04/02/24 09:17 9 MLS/HR Propofol 100 ml @ 4.5 mls/hr [id number] IV 04/01/24 02:30 04/02/24 11:52 31.5 MLS/HR Ondansetron HCl 4 mg Q4HP PRN IV 04/01/24 05:00 Acetaminophen 650 mg Q6HP PRN PO 04/01/24 05:00 04/01/24 18:29 650 MG Nitroglycerin 0.4 mg Q5MINP PRN SL 04/01/24 05:00 Morphine Sulfate 2 mg Q30M PRN IV 04/01/24 05:00 Albuterol 2.5 mg Q6HR NEB 04/01/24 06:00 04/02/24 06:27 2.5 MG Amiodarone HCl 250 ml @ 16.667 mls/ hr Q15H IV 04/01/24 14:00 04/02/24 02:10 16.667 MLS/HR Fentanyl Citrate 250 ml @ 2.5 mls/hr Q24H IV 04/01/24 10:00 04/02/24 12:42 2.5 MLS/HR Phenylephrine HCl 80 mg/Sodium Chloride 250 ml @ 7.5 mls/hr Q24H IV 04/01/24 10:45 04/02/24 02:10 16.875 MLS/HR Norepinephrine Bitartrate 32 mg/ Sodium Chloride 250 ml @ 0.938 mls/ hr Q24H IV 04/01/24 10:45 04/02/24 02:10 1.875 MLS/HR Meropenem 50 ml @ 17 mls/hr Q12HR IV 04/02/24 10:00 04/02/24 12:33 17 MLS/HR Linezolid 300 ml @ 150 mls/hr Q12HR IV 04/01/24 22:00 04/02/24 08:45 150 MLS/HR Furosemide 100 mg/ Sodium Chloride 110 ml @ 22 mls/hr Q5H IV 04/01/24 17:30 04/02/24 08:28 22 MLS/HR Aspirin 81 mg DAILY PO 04/02/24 10:00 04/02/24 08:46 81 MG Heparin Sodium/ Dextrose 250 ml @ 18 mls/hr [id number] IV 04/02/24 09:45 04/02/24 09:45 18 MLS/HR Fentanyl Citrate 250 ml @ 2.5 mls/hr Q24H IV 04/02/24 11:15 objective obese white female intubated sedated rrr rales 1+ edema whipple cloudy urine laboratory and microbiology Laboratory Tests 04/02/24 08:29 04/02/24 03:27 Test 04/02/24 03:27 Range/Units Serum Glucose 310 H 74-106 mg/dL Assessment/Plan Acute kidney injury due to ATN/hemodynamic from shock ckd unspecified respiratory failure NSTEMI septic shock metabolic acidosis resolved b/l renal stones w/ hydronephrosis morbid obesity hyperkalemia critically ill currently on 3 pressors bicarb drips completed lasix drip increase pressors IV abx rec nephrostomy tubes to relieve obstruction despite improvement in urinary volume renal function has not recovered. Dialysis catheter placed and will start treatments if does not show drastic improvement critical care time 40mins Plan discussed with: Other KLEVER VILLALBA MD Apr 02, 2024 13:45
--- NOTE | 2024-04-02 13:49 | DVH ---
XY CHEST XRAY 1 VIEW, HISTORY: NEHA CATH PLACEMENT COMPARISON: XY CHEST XRAY 1 VIEW on DOS: 04/02/24, XY CHEST PORTABLE on DOS: 04/01/24, XY CHEST XRAY 1 VIEW on DOS: 04/01/24, XY CHEST PORTABLE on DOS: 03/31/24 XY CHEST XRAY 1 VIEW on DOS: 04/02/24, XY CHEST PORTABLE on DOS: 04/01/24, XY CHEST XRAY 1 VIEW on DOS: 04/01/24, XY CHEST PORTABLE on DOS: 03/31/24 TECHNICAL DATA: 1 view of the chest was obtained. FINDINGS: Lines and tubes: ET in the mid thoracic trachea. NG crosses midline. Right CVC is stable. Left HD cat heter projects over the mediastinum. Cardiomediastinal silhouette: Enlarged Pulmonary vasculature: prominent Lung expansion: low Lung airspace: patchy bilateral airspace opacity. Lung interstitium: normal Pleura: Similar large right effusion. Pneumothorax: no Bones: Unremarkable Other: no IMPRESSION: Lines and tubes, as above. Similar lung aeration bilaterally with a right pleural effusion and patchy airspace opacities.
[2024-04-02 14:33] LABS: Alanine Aminotransferase 16 U/L (7-40); Albumin 3.3 g/dL (3.2-4.8); Alkaline Phosphatase 109 U/L (46-116); Anion Gap 16 (5-15); Aspartate Aminotransferase 47 U/L (13-40); Calcium 7.1 mg/dL (8.7-10.4); Carbon Dioxide 23 mmol/L (20-31); Chloride 95 mmol/L (98-107); Glucose 193 mg/dL (74-106); Potassium 4.9 mmol/L (3.5-5.1); Sodium 134 mmol/L (136-145)
[2024-04-02 14:34] LABS: Bilirubin, Total 0.4 mg/dL (0.2-1.0); Total Protein 6.3 g/dL (5.7-8.2)
[2024-04-02 14:37] LABS: BUN/Creatinine Ratio 20.7 (10.0-20.0)
[2024-04-02 14:39] LABS: Blood Urea Nitrogen 94 mg/dL (9-23)
[2024-04-03] VITALS (134 sets, daily range): BP systolic 55–147; BP diastolic 32–96; PULSE 62–200; RESP 12–46; TEMP 95.4–100.2; O2SAT 93–99
[2024-04-03 04:16] LABS: Basophils # (auto) 0 10 ^3/uL (0-0.2); Basophils % (auto) 0.1 % (0.0-2.0); Eosinophils # (auto) 0 10 ^3/uL (0-0.8); Hematocrit 25.7 % (36.0-46.0); Hemoglobin 8.8 g/dL (12.2-16.2); Lymphocytes # (auto) 1.8 10 ^3/uL (0.4-5.4); Mean Corpuscular Hgb Conc. 34.1 g/dL (32.0-36.0); Mean Corpuscular Volume 73.4 fL (80.0-100.0); Monocytes # (auto) 0.5 10 ^3/uL (0-1.3); Monocytes % (auto) 2.6 % (0.0-12.0); Neutrophils # (auto) 15.4 10 ^3/uL (1.6-8.6); Neutrophils % (auto) 87.3 % (37.0-80.0); Nucleated Red Blood Cells % 0.1 %; Platelet Count (auto) 181 10^3/uL (140-450); White Blood Cell 17.6 10^3/uL (4.4-10.8)
[2024-04-03 04:37] LABS: Alanine Aminotransferase 16 U/L (7-40); Albumin 3.4 g/dL (3.2-4.8); Alkaline Phosphatase 109 U/L (46-116); Anion Gap 15 (5-15); Aspartate Aminotransferase 43 U/L (13-40); BUN/Creatinine Ratio 22.6 (10.0-20.0); Bilirubin, Total 0.5 mg/dL (0.2-1.0); Calcium 7.3 mg/dL (8.7-10.4); Carbon Dioxide 26 mmol/L (20-31); Chloride 95 mmol/L (98-107); Glucose 143 mg/dL (74-106); Magnesium 2.1 mg/dL (1.6-2.6); Potassium 4.8 mmol/L (3.5-5.1); Sodium 136 mmol/L (136-145); Total Protein 6.5 g/dL (5.7-8.2)
[2024-04-03 04:55] LABS: Blood Urea Nitrogen 106 mg/dL (9-23)
--- NOTE | 2024-04-03 06:43 | DVH ---
CHEST RADIOGRAPH Indication:right and left lung opacities Technique: Single frontal view of the chest was obtained Comparison: XY CHEST XRAY 1 VIEW on DOS: 04/02/24 FINDINGS: Lines and Tubes: The endotracheal tube terminates 4.8 cm above the mili. Right central venous cath eter terminates in the superior vena cava. Left central venous catheter terminates in the superior ve na cava. The enteric tube courses below the left hemidiaphragm and the tip extends outside the field of view. Lungs: Bilateral pulmonary opacities and interstitial prominence. Pleura: No effusion. No pneumothorax. Cardiomediastinal contours: Cardiomegaly. Bones: No acute osseous abnormality. IMPRESSION: 1. Stable position of the support lines and tubes. 2. Interstitial and alveolar opacities.
[2024-04-03] MEDS: SODIUM CHL 0.9% 1000 ML BAG XX ONE (07:00)
[2024-04-03] MEDS ORDERED: ALBUMIN 25% 100 ML IV PRN (07:00)
[2024-04-03 07:06] LABS: Base Excess 2.3 mmol/L (-2.0-3.0)
--- NOTE | 2024-04-03 07:49 | DVHPN2 ---
Progress Note - Dictate Date Seen: Apr 03, 2024 Has the PT tested + for MRSA If YES, has PT been informed?: No Medical Necessity Reason Pt with a Central, PICC or Fol: Yes The following are medically ne: Central Line, Martines Catheter vital signs Vital Sign Date Time Temp Pulse Resp B/P (MAP) Pulse Ox O2 Delivery O2 Flow Rate FiO2 04/03/24 07:37 120/65 04/03/24 06:46 24 98 Mechanical Ventilator+ 50 50 04/03/24 06:45 72 04/03/24 05:31 100.0 212.0 Total Intake and Output 04/02/24 04/02/24 04/03/24 15:00 23:00 07:00 Intake Total 1262.713 ml 723.840 ml 655.360 ml Output Total 1600 ml 1600 ml Balance 1262.713 ml -876.160 ml -944.640 ml medications Current Medications Medications Dose Ordered Sig/Destini Route Start Time Stop Time Status Last Admin Dose Admin Heparin Sodium/ Dextrose 250 ml @ 18 mls/hr [id number] IV 03/31/24 23:45 UNV Midazolam HCl 50 ml @ 1 mls/hr Q24H IV 04/01/24 01:30 04/03/24 07:37 15 MLS/HR Vasopressin 20 units/Sodium Chloride 100 ml @ 9 mls/hr Q11H7M IV 04/01/24 01:30 04/03/24 04:27 9 MLS/HR Propofol 100 ml @ 4.5 mls/hr [id number] IV 04/01/24 02:30 04/02/24 15:01 4.5 MLS/HR Ondansetron HCl 4 mg Q4HP PRN IV 04/01/24 05:00 Acetaminophen 650 mg Q6HP PRN PO 04/01/24 05:00 04/01/24 18:29 650 MG Nitroglycerin 0.4 mg Q5MINP PRN SL 04/01/24 05:00 Morphine Sulfate 2 mg Q30M PRN IV 04/01/24 05:00 Albuterol 2.5 mg Q6HR NEB 04/01/24 06:00 04/03/24 06:40 2.5 MG Amiodarone HCl 250 ml @ 16.667 mls/ hr Q15H IV 04/01/24 14:00 04/02/24 18:46 16.667 MLS/HR Fentanyl Citrate 250 ml @ 2.5 mls/hr Q24H IV 04/01/24 10:00 04/02/24 12:42 2.5 MLS/HR Phenylephrine HCl 80 mg/Sodium Chloride 250 ml @ 7.5 mls/hr Q24H IV 04/01/24 10:45 04/02/24 18:45 16.875 MLS/HR Norepinephrine Bitartrate 32 mg/ Sodium Chloride 250 ml @ 0.938 mls/ hr Q24H IV 04/01/24 10:45 04/02/24 02:10 1.875 MLS/HR Meropenem 50 ml @ 17 mls/hr Q12HR IV 04/02/24 10:00 04/02/24 21:59 17 MLS/HR Linezolid 300 ml @ 150 mls/hr Q12HR IV 04/01/24 22:00 04/02/24 21:59 150 MLS/HR Furosemide 100 mg/ Sodium Chloride 110 ml @ 22 mls/hr Q5H IV 04/01/24 17:30 04/03/24 04:27 22 MLS/HR Aspirin 81 mg DAILY PO 04/02/24 10:00 04/02/24 08:46 81 MG Heparin Sodium/ Dextrose 250 ml @ 18 mls/hr [id number] IV 04/02/24 09:45 04/02/24 09:45 18 MLS/HR Fentanyl Citrate 250 ml @ 2.5 mls/hr Q24H IV 04/02/24 11:15 Albumin Human 100 ml @ 100 mls/hr KIRAN PRN IV 04/03/24 07:00 laboratory and microbiology Laboratory Tests 04/03/24 03:45 Test 04/03/24 03:45 Range/Units Serum Glucose 143 H 74-106 mg/dL Assessment/Plan Patient is a 68-year-old female who was transferred from [facility]. She originally presented to [facility] for shortness of breath ongoing for few days. She is intubated and is being managed in ICU. Information was obtained by reviewing the chart and communicating with staff. Reportedly, she presented with respiratory failure to [facility] (oxygen saturation was 88%) and over there was found to have white blood cell count of 26.6, hemoglobin of 11.1, creatinine of 5.6, potassium of 5.6 and troponin of 1.01. She was given 365 mg of aspirin in [facility]. She did have an episode of atrial fibrillation with RVR with questionable ST changes and was transferred to our facility for further care. She was also found to have right pleural effusion in [facility] and was diagnosed with non-STEMI. Intubated, on vent support. On pressure support. Obese. Mucosa is pale. Scattered rhonchi in the lungs is heard. Cardiac: Regular, no thrill/gallop. Abdomen is soft with increased bowel sounds. There is no gross mass. Extremities reveal 1+ edema bilaterally. Available past medical history includes obesity and questionable history of psoriasis. WBC: 25.3 - 23.7 - 20.2 - 20.5 - 17.6 Hemoglobin: 10.8 - 9.1 - 8.5 - 8.4 - 8.8 D-dimer: 3.62 Creatinine: 5.67 - 5.78 - 5.41 - 4.92 - 4.55 - 4.68 Potassium: 6.0 - 6.3 - 6.1 - 6.0 - 5.3 - 5.0 - 4.9 - 4.8 Lactic acid: 3.3 - 3.4 - 2.3 TSH: 1.71 BNP: 274.69 Troponin (high sensitive): 1469 - 1515 - 1684 Blood culture: positive Stool OB: positive Chest x-ray revealed: IMPRESSION: 1. Moderate right pleural effusion. 2. Cardiomegaly with mild pulmonary vascular congestion bilaterally. Repeat chest x-ray revealed: IMPRESSION: 1. Endotracheal tube and gastric tubes in place as described. 2. Right IJ central venous catheter projects over the lower SVC. 3. Mild cardiomegaly and prominence of the pulmonary vasculature. 4. Moderate to large right pleural effusion. Repeat chest x-ray revealed: IMPRESSION: Similar lung aeration with large right pleural effusion. No pneumothorax seen. Stable lines and tubes. Repeat chest x-ray revealed: IMPRESSION: Similar lung aeration with large right pleural effusion. No pneumothorax seen. Stable lines and tubes. Repeat chest xry revealed: Lines and tubes: ET in the mid thoracic trachea. NG crosses midline. Right CVC is stable. Left HD catheter projects over the mediastinum. Cardiomediastinal silhouette: Enlarged Pulmonary vasculature: prominent Lung expansion: low Lung airspace: patchy bilateral airspace opacity. Lung interstitium: normal Pleura: Similar large right effusion. Pneumothorax: no Bones: Unremarkable Other: no IMPRESSION: Lines and tubes, as above. Similar lung aeration bilaterally with a right pleural effusion and patchy airspace opacities. Repeat chest xry revealed: IMPRESSION: 1. Stable position of the support lines and tubes. 2. Interstitial and alveolar opacities. CT scan of the chest/abdomen and pelvis revealed: IMPRESSION: 1. Moderate partially loculated right pleural effusion and consolidations in the right middle and lower lobes which could be pneumonia and/or atelectasis. 2. Mild cardiomegaly, mild interstitial pulmonary edema, and body wall edema. 3. There is a 1.9 cm calculus in the right UPJ with mild right hydronephrosis 4. There is a 2.6 cm somewhat staghorn appearing calculus in the left renal pelvis and UPJ causing mild predominantly mid to lower pole left hydronephrosis. Mild soft tissue stranding about the left renal pelvis which could be due to obstruction or superimposed infection. Correlate with urinalysis. 5. Partial duplication of the left renal collecting system without hydronephrosis in the upper pole. 6. Moderate right perinephric, right retroperitoneal, and bilateral extraperitoneal pelvis low-density fluid and very mild left retroperitoneal low-density fluid. This could be fluid related to bilateral renal obstructions and forniceal ruptures versus evolved retroperitoneal hematoma. This is suboptimally evaluated without intravenous contrast. 7. Fluid-filled small and large bowel loops which may be physiologic or related to enterocolitis and could be manifesting as loose stools and/or diarrhea. 8. Prominent endometrium measuring at least 2.8 cm, suboptimally evaluated by CT. Recommend characterization with nonemergent pelvic ultrasound if clinically indicated. 9. Mild hepatosplenomegaly. 10. Moderate three-vessel calcified coronary artery disease and mild aortic valve calcification. 11. Right IJ central venous catheter in place terminating in the low SVC. 12. Small soft tissue stranding in the right supraclavicular neck which could be blood products. 13. Endotracheal tube terminates above the mili. CT of the head revealed: IMPRESSION: 1. No acute intracranial abnormality. 2. Generalized cerebral volume loss and mild chronic microvascular ischemic change. 3. Partially imaged endotracheal tube. Chest ultrasound revealed: Findings/Impression: There is a trace bilateral pleural effusion. Thoracentesis: FINDINGS: Moderate size, complex and septated right pleural effusion. Aspirated fluid is thick and green in consistency. IMPRESSION: Right thoracentesis with 250 mL removed for laboratory analysis. EKG in [facility] revealed sinus tachycardia, poor R-wave progression old inferior wall MO. later EKG revealed atrial fibrillation with RVR. Telemetry reveals sinus rhythm Echocardiogram revealed: Technically limited study secondary to poor acoustic windows. Left ventricle: Left ventricle was normal-sized. Mild concentric left ventricular hypertrophy was seen. LVEF was 55-60%. No gross wall motion abnormality was observed, but its presence can not be ruled out on the basis of this study. Right ventricle is mildly dilated with normal systolic function. Left atrium was mildly dilated. Right atrium was normal-sized. Aortic valve was trileaflet. There was no aortic insufficiency. There was aortic sclerosis with no stenosis. There was trivial mitral/tricuspid regurgitation. Pulmonary valve was not well visualized. Right ventricular systolic pressure was assessed around 48 mm Hg. There was no pericardial effusion. Patient is a 68-year-old morbidly obese patient who presented with respiratory failure to the hospital. Presentation is in favor of sepsis/septic shock. Multiorgan failure is observed. She is intubated and on vent support. She is on multiple pressor support. Life findings are in favor of acute renal failure. She also is known to have nephrolithiasis with history of staghorn calculi. Cardiac-ceballos, the patient did have episode of atrial fibrillation with RVR. She is found to have increased troponin. Presentation questions non-STEMI and possibly type 2 ischemia. Recognizing the presentation, ischemic workup should be postponed after clinical stability. Is being followed by Nephrology. Septic shock Multiorgan failure Acute respiratory failure on vent support Acute renal failure Nephrolithiasis Staghorn calculi Hydronephrosis Abnormal troponin, non-STEMI Atrial fibrillation with RVR Paroxysmal AFib Acute heart failure, diastolic Hepatosplenomegaly Pleural effusion Status post thoracentesis Morbid obesity Cardiac suggestion for management: Manage in ICU Follow-up electrolytes and kidney function tests and correct abnormalities Pressure support to keep mean arterial pressure above 65 Amiodarone drip Heparin drip Daily aspirin (81 mg daily) Sepsis workup and management as per primary team Evaluation and management of respiratory failure as per primary team/Pulmonary Evaluation and management of nephrolithiasis/hydronephrosis as per primary/Urology Evaluation and management of acute renal failure as per Nephrology Ischemic workup, after clinical stability Further evaluation and management as per above and clinical course. A total of 75 minutes was spent reviewing the patient record, examining the patient, making a diagnostic and therapeutic plan, discussing this plan with medical personnel, following up on diagnostic studies and following the patient for clinical stability excluding any and all procedures. At least 50% of this time was spent in direct, [id number] contact. Thank you for allowing me to participate in this patient's care. Further recommendations will depend on patient's clinical course. Please do not hesitate to contact me if you have any questions or concerns. This medical document was created using electronic medical record system with [employer] computerized dictation system. Although this document has been carefully reviewed, there may still be some phonetic and typographical errors. These areas are purely typographical due to the imperfection of the software programs, and do not reflect any compromise in the patient's medical care. Plan discussed with: Other (nurse) HERMINIO JOHNSON MD Apr 03, 2024 07:49
[2024-04-03 08:06] LABS: LD, Body Fluid >18000 IU/L (.)
[2024-04-03 10:31] LABS: % Iron Saturation 16.9 % (15-50)
[2024-04-03 11:16] LABS: Hepatitis B Surface Antigen Negative (Negative)
[2024-04-03 11:36] LABS: Hepatitis A Ab IgM Negative
[2024-04-03 11:37] LABS: Hepatitis B Core IgM Negative; Hepatitis C Antibody Negative (Negative)
[2024-04-03] MEDS ORDERED: VANCOMYCIN PER PHARMACY 0 MG IV SCH (12:30)
--- NOTE | 2024-04-03 12:55 | DVHINCON2 ---
Date of service: Apr 03, 2024 Family History: Patient reports no known family medical history. Allergies: Coded Allergies: NO KNOWN ALLERGIES (Unverified , 03/31/24) Current Medications Current Medications Medications (Trade) Dose Ordered Sig/Destini Route PRN Reason Start Time Stop Time Status Last Admin Albumin Human 100 ml @ 100 mls/hr KIRAN PRN IV x3 for bp support 04/03/24 07:00 Vancomycin HCl 0 ml @ 0 mls/hr UD IV 04/03/24 12:30 UNV Vital Signs Vital Signs Date Time Temp Pulse Resp B/P (MAP) Pulse Ox O2 Delivery O2 Flow Rate FiO2 04/03/24 12:00 68 04/03/24 12:00 50 04/03/24 12:00 24 110/43 (65) 97 04/03/24 10:46 Mechanical Ventilator+ 04/03/24 05:31 100.0 212.0 Labs/Diagnostic Data Labs Test 04/03/24 09:24 04/03/24 06:56 04/03/24 03:45 04/02/24 09:00 Range/Units Iron Level 37 L 50-170 ug/dL Total Iron Binding Capacity 219 L 250-425 ug/dL Percent Iron Saturation 16.9 15-50 % Ferritin 879.9 H 10-291 ng/mL Hepatitis A IgM Antibody Negative Hepatitis B Surface Antigen Negative Negative Hepatitis B Core IgM Antibody Negative Hepatitis C Antibody Negative Negative Blood Gas Specimen Type Arterial Blood Gas Sample Site Left radial Blood Gas Patient Temperature 37.0 Arterial Blood Date Drawn [id number] Arterial Blood pH 7.550 H 7.350-7.450 Arterial Blood Partial Pressure CO2 28.4 L 32.0-45.0 mmHg Arterial Blood Partial Pressure O2 105.9 83.0-108.0 mmHg Arterial Blood HCO3 24.3 21.0-28.0 mmol/L Arterial Blood Oxygen Saturation 97.6 94.0-98.0 % Arterial Blood Base Excess 2.3 -2.0-3.0 mmol/L Arterial Blood Oxyhemoglobin 96.9 94.0-98.0 % Arterial Blood Carboxyhemoglobin 0.2 L 0.5-1.5 % Arterial Blood Methemoglobin 0.5 0.0-1.5 % Monster Test Modified Blood Gas Total Hemoglobin 9.50 L 12.0-16.0 g/dL Blood Gas Set Respiration Rate 24.0 Blood Gas Modality Vent - ac Blood Gas Spontaneous Rate 24 FiO2 % 50.0 Blood Gas Tidal Volume 600.0 Blood Gas PEEP or CPAP 10.0 White Blood Count 17.6 H 4.4-10.8 10^3/uL Red Blood Count 3.50 L 4.0-5.20 10^6/uL Hemoglobin 8.8 L 12.2-16.2 g/dL Hematocrit 25.7 L 36.0-46.0 % Mean Corpuscular Volume 73.4 L 80.0-100.0 fL Mean Corpuscular Hemoglobin 25.0 L 28.0-32.0 pg Mean Corpuscular Hemoglobin Concent 34.1 32.0-36.0 g/dL Red Cell Distribution Width 18.0 H 11.8-14.3 % Platelet Count 181 140-450 10^3/uL Mean Platelet Volume 8.3 6.9-10.8 fL Neutrophils (%) (Auto) 87.3 H 37.0-80.0 % Lymphocytes (%) (Auto) 10.0 10.0-50.0 % Monocytes (%) (Auto) 2.6 0.0-12.0 % Eosinophils (%) (Auto) 0.0 0.0-7.0 % Basophils (%) (Auto) 0.1 0.0-2.0 % Neutrophils # (Auto) 15.4 H 1.6-8.6 10 ^3/uL Lymphocytes # (Auto) 1.8 0.4-5.4 10 ^3/uL Monocytes # (Auto) 0.5 0-1.3 10 ^3/uL Eosinophils # (Auto) 0 0-0.8 10 ^3/uL Basophils # (Auto) 0 0-0.2 10 ^3/uL Nucleated Red Blood Cells 0.1 % Sodium Level 136 136-145 mmol/L Potassium Level 4.8 3.5-5.1 mmol/L Chloride Level 95 L 98-107 mmol/L Carbon Dioxide Level 26 20-31 mmol/L Anion Gap 15 5-15 Blood Urea Nitrogen 106 #*H 9-23 mg/dL Creatinine 4.68 H 0.550-1.02 mg/dL Glomerular Filtration Rate Calc 10 >90 mL/min BUN/Creatinine Ratio 22.6 H 10.0-20.0 Serum Glucose 143 H 74-106 mg/dL Calcium Level 7.3 L 8.7-10.4 mg/dL Magnesium Level 2.1 1.6-2.6 mg/dL Total Bilirubin 0.5 0.2-1.0 mg/dL Aspartate Amino Transferase (AST) 43 H 13-40 U/L Alanine Aminotransferase (ALT) 16 7-40 U/L Alkaline Phosphatase 109 46-116 U/L Total Protein 6.5 5.7-8.2 g/dL Albumin 3.4 3.2-4.8 g/dL Gastric Fluid pH 6 Gastric Fluid Occult Blood Positive Negative Stool Occult Blood Positive Negative Stool Occult Blood Sample #3 Negative Test 04/02/24 07:03 04/02/24 06:54 04/02/24 03:27 04/01/24 19:03 Range/Units Prothrombin Time 11.4 9.3-11.8 sec Prothrombin Time INR 1.08 0.9-1.15 Activated Partial Thromboplast Time 41.6 H 24.5-34.5 SEC Blood Gas Inspiratory Pressure 31.0 Bl Gas Inspiratory/Expiratory Ratio 1:1.6 Specimen Drawn By [employer] Blood Gas Critical Value Read Back yrs Blood Gas Notified Whom [address] Blood Gas Notified Time [id number] Blood Gas Notified By [employer] Differential Total Cells Counted 100.0 100 Neutrophils % (Manual) 82 H 37.0-80.0 Band Neutrophils % (Manual) 0 Lymphocytes % (Manual) 11 10.0-50.0 Monocytes % (Manual) 7 0-12 Eosinophils % (Manual) 0 0-7 Basophils % (Manual) 0 0.0-2.0 Metamyelocytes % (manual) 0 Myelocytes % (Manual) 0 Promyelocytes % (Manual) 0 Blast Cells % (Manual) 0 Reactive Lymphocytes 0 Smudge Cells 1 /100 WBC Platelet Estimate Adequate Microcytosis Slight Lactic Acid Level 2.3 *H 0.4-2.0 mmol/L Ammonia 26 11-32 umol/L POC Glucose 214 H 70-106 mg/dl Test 04/01/24 18:14 04/01/24 15:30 04/01/24 12:27 04/01/24 07:18 Range/Units Triglycerides Level 329 H < 150 mg/dL Cholesterol Level 110 < 200 mg/dL LDL Cholesterol 39 < 100 mg/dL HDL Cholesterol < 5 L 40-59 mg/dL Thyroid Stimulating Hormone (TSH) 1.71 0.55-4.78 uIU/mL Body Fluid Source Pleural fluid Body Fluid pH 7.0 Body Fluid WBC (Manual) 88157 H 0-200 CUMM Body Fluid RBC (Manual) 3552 H 0-2000 CUMM Body Fluid Mononuclear Cells 31 % Body Fluid Polymorphonuclear Cells 69 H 0-25 % Body Fluid Glucose <2 . mg/dL Body Fluid Total Protein 4.4 . g/dL Body Fluid Lactate Dehydrogenase >15789 . IU/L Hypochromasia (manual) Slight Hemoglobin A1c 5.4 <5.7 % A1C Lactate Dehydrogenase 329 H 120-246 U/L D-Dimer, Quantitative 3.62 H 0.0-0.49 mg/L FEU Test 04/01/24 05:22 04/01/24 00:47 03/31/24 20:52 03/31/24 20:47 Range/Units Creatine Kinase 47 34-145 U/L Troponin I High Sensitivity 1684 *H </=34 ng/L Blood Gas Liter Flow 4.00 B-Type Natriuretic Peptide 274.69 0-100 pg/mL Lipase 59 H 12-53 U/L Test 03/31/24 20:42 Range/Units Urine Color [place] H Yellow Urine Clarity Ex.turbid Clear Urine pH 5.5 5.0-9.0 Urine Specific [place] 1.020 1.001-1.035 Urine Protein 2+ H Negative Urine Ketones Trace Negative Urine Blood 3+ H Negative /uL Urine Nitrite Negative Negative Urine Bilirubin Negative Negative Urine Urobilinogen 2 H Negative mg/dL Urine Leukocyte Esterase 3+ Negative /uL Urine RBC 508 0 - 4 /hpf Urine WBC 2451 0 - 5 /hpf Urine WBC Clumps Present None Seen /hpf Urine Squamous Epithelial Cells None seen <5 /hpf Urine Bacteria Mod H None Seen /hpf Urine Mucus Few None Seen Urine Glucose Normal Normal mg/dL Microbiology Date/Time Source Procedure Growth Status 04/01/24 15:30 Pleural Fluid Gram Stain - Final Resulted 04/01/24 15:30 Pleural Fluid Aerobic Culture - Preliminary Resulted 04/01/24 11:19 Nose MRSA Screen - Final Complete 04/01/24 07:18 Blood Blood Culture - Preliminary Resulted 03/31/24 22:55 Sputum Endotracheal Wash Gram Stain - Final Resulted 03/31/24 22:55 Sputum Endotracheal Wash Respiratory Culture - Preliminary Resulted Assessment discussed with Alin Mauricio, patient is septic due top right chest empyema, will proceed with thoracosopy, possible thoracotomy as radiologist was unable to evacuate the effusion due to multiloculation. Plan discussed with: SANTY Ovalle MD Apr 03, 2024 12:55
--- NOTE | 2024-04-03 14:08 | DVHPN2 ---
Progress Note - Dictate Date Seen: Apr 03, 2024 Has the PT tested + for MRSA If YES, has PT been informed?: No Medical Necessity Reason Pt with a Central, PICC or Fol: Yes The following are medically ne: Central Line, Whipple Catheter Subjective planned for HD today due to azotemia however HR 200 therefore procedure cancelled vital signs Vital Sign Date Time Temp Pulse Resp B/P (MAP) Pulse Ox O2 Delivery O2 Flow Rate FiO2 04/03/24 12:00 68 04/03/24 12:00 50 04/03/24 12:00 24 110/43 (65) 97 04/03/24 10:46 Mechanical Ventilator+ 04/03/24 05:31 100.0 212.0 Total Intake and Output 04/02/24 04/02/24 04/03/24 15:00 23:00 07:00 Intake Total 1262.713 ml 723.840 ml 698.902 ml Output Total 1600 ml 1600 ml Balance 1262.713 ml -876.160 ml -901.098 ml medications Current Medications Medications Dose Ordered Sig/Destini Route Start Time Stop Time Status Last Admin Dose Admin Heparin Sodium/ Dextrose 250 ml @ 18 mls/hr [id number] IV 03/31/24 23:45 UNV Midazolam HCl 50 ml @ 1 mls/hr Q24H IV 04/01/24 01:30 04/03/24 10:58 15 MLS/HR Vasopressin 20 units/Sodium Chloride 100 ml @ 9 mls/hr Q11H7M IV 04/01/24 01:30 04/03/24 04:27 9 MLS/HR Propofol 100 ml @ 4.5 mls/hr [id number] IV 04/01/24 02:30 04/02/24 15:01 4.5 MLS/HR Ondansetron HCl 4 mg Q4HP PRN IV 04/01/24 05:00 Acetaminophen 650 mg Q6HP PRN PO 04/01/24 05:00 04/01/24 18:29 650 MG Nitroglycerin 0.4 mg Q5MINP PRN SL 04/01/24 05:00 Morphine Sulfate 2 mg Q30M PRN IV 04/01/24 05:00 Albuterol 2.5 mg Q6HR NEB 04/01/24 06:00 04/03/24 12:06 2.5 MG Amiodarone HCl 250 ml @ 16.667 mls/ hr Q15H IV 04/01/24 14:00 04/03/24 08:44 16.667 MLS/HR Fentanyl Citrate 250 ml @ 2.5 mls/hr Q24H IV 04/01/24 10:00 04/02/24 12:42 2.5 MLS/HR Phenylephrine HCl 80 mg/Sodium Chloride 250 ml @ 7.5 mls/hr Q24H IV 04/01/24 10:45 04/03/24 09:18 16.875 MLS/HR Norepinephrine Bitartrate 32 mg/ Sodium Chloride 250 ml @ 0.938 mls/ hr Q24H IV 04/01/24 10:45 04/02/24 02:10 1.875 MLS/HR Meropenem 50 ml @ 17 mls/hr Q12HR IV 04/02/24 10:00 04/03/24 09:19 17 MLS/HR Furosemide 100 mg/ Sodium Chloride 110 ml @ 22 mls/hr Q5H IV 04/01/24 17:30 04/03/24 09:24 22 MLS/HR Fentanyl Citrate 250 ml @ 2.5 mls/hr Q24H IV 04/02/24 11:15 Albumin Human 100 ml @ 100 mls/hr KIRAN PRN IV 04/03/24 07:00 Vancomycin HCl 0 ml @ 0 mls/hr UD IV 04/03/24 12:30 UNV Vancomycin HCl 200 ml @ 200 mls/hr Q1H IV 04/03/24 13:15 04/03/24 15:14 objective obese white female intubated sedated rrr rales 1+ edema whipple cloudy urine laboratory and microbiology Laboratory Tests 04/03/24 03:45 Test 04/03/24 03:45 Range/Units Serum Glucose 143 H 74-106 mg/dL Assessment/Plan Acute kidney injury due to ATN/hemodynamic from shock ckd unspecified respiratory failure NSTEMI septic shock empyema metabolic acidosis resolved b/l renal stones w/ hydronephrosis morbid obesity hyperkalemia afib RVR critically ill currently on pressors bicarb drips completed lasix drip increase pressors cardiology to manage HR Hd cancelled due to instability Afib RVR IV abx rec nephrostomy tubes to relieve obstruction critical care time 40mins Dietary Evaluation Review Comments: 1) If GI is accessible consider Nepro 1.8 @ 30 ml/hr goal rate as tolerated with current rate of propofol on board. 2) If pt remains NPO >7 days consider TPN to meet at least 75% of estimated needs 3) If pt continues to receive HD, advance pt diet when medically feasible to a Renal Standard diet modified per PLATE SETTER recommendations 4) If HD is discontinued and GFR is within normal range, advance pt diet to a Regular diet, modified per PLATE SETTER recommendations 5)If HD is discontinued and GFR lies within STG 1-4, advance pt diet to a Renal Specific K2,lowphos,HECTOR,2gmNa,80gPro diet 6) If HD is discontinued and if GFR returns to normal levels then ALEXANDRA 1 pkt BID with meals may be considered to aid with wound healing 7) Continue current plan of care Expected Outcomes/Goals: 1) Pt to receive nutrition support within 7 days of NPO status 2) Pt labs to improve 3) Pt diet to advance 4) F/U in 2-3 days Plan discussed with: KLEVER Kauffman MD Apr 03, 2024 14:08
[2024-04-03] MEDS: FUROSEMIDE INJECTION 100 MG in SODIUM CHL 0.9% 100 ML IV SCH (16:07)
--- NOTE | 2024-04-03 16:10 | DVHPNRES ---
Progress Note Date Seen: Apr 03, 2024 Resident Creating Document: KEVON BLANTON RESIDENT Has the PT tested + for MRSA If YES, has PT been informed?: No Medical Necessity Reason Pt with a Central, PICC or Fol: Yes The following are medically ne: Central Line, Martines Catheter Subjective Review of Systems This is a 68-year-old female with unknown past medical history who was transferred from another facility ([facility]) for higher level of care. The patient initially was treated at that facility for shortness of breaths and back pain. The patient was transferred to our facility for higher level of care. The patient on arrival to the ED was tachypneic with severe respiratory failure, tachycardic rhythm consistent with atrial fibrillation and was saturating in the 70s. Initially placed on non-rebreather mask and then emergently intubated to protect airway. The patient was started on amiodarone drip 1 milligram/minute, phenylephrine, vasopressin and levophed. Patient initially was started on broad-spectrum antibiotics with vancomycin and Zosyn but for renal protection, since GFR was less than 10 and to have a more broad- spectrum coverage we added meropenem and discontinued Zosyn. To the ICU for further assessment and management. Patient seen and examined at bedside. Patient still sedated on midazolam and fentanyl on mechanical ventilation on the following parameters: VT 500, RR 24, FiO2 50%, peep 10, saturating 97%. Today in the morning, we decided to decrease PEEP to 6, we consulted surgery for right-sided thoracotomy which could possibly be scheduled tomorrow. We stopped linezolid and started the patient back on vancomycin due to acute platelet drop. Patient was in atrial flutter at a rate approximately off 180-200, reason why Cardiology was consult and recommended synchronized cardioversion. Synchronized cardioversion was performed and patient's rhythm was atrial fibrillation with RVR and patient is already on amiodarone drip. Cardiology recommended to keep drip at this time. ROS unable to obtain due to patient's current status intubation. Objective vital signs Vital Sign Date Time Temp Pulse Resp B/P (MAP) Pulse Ox O2 Delivery O2 Flow Rate FiO2 04/03/24 15:13 64 24 114/65 (81) 96 40 04/03/24 12:46 Mechanical Ventilator+ 04/03/24 05:31 100.0 212.0 Total Intake and Output 04/02/24 04/02/24 04/03/24 15:00 23:00 07:00 Intake Total 1262.713 ml 723.840 ml 698.902 ml Output Total 1600 ml 1600 ml Balance 1262.713 ml -876.160 ml -901.098 ml medications Current Medications Medications Dose Ordered Sig/Destini Route Start Time Stop Time Status Last Admin Dose Admin Heparin Sodium/ Dextrose 250 ml @ 18 mls/hr [id number] IV 03/31/24 23:45 UNV Midazolam HCl 50 ml @ 1 mls/hr Q24H IV 04/01/24 01:30 04/03/24 14:38 15 MLS/HR Vasopressin 20 units/Sodium Chloride 100 ml @ 9 mls/hr Q11H7M IV 04/01/24 01:30 04/03/24 04:27 9 MLS/HR Propofol 100 ml @ 4.5 mls/hr [id number] IV 04/01/24 02:30 04/02/24 15:01 4.5 MLS/HR Ondansetron HCl 4 mg Q4HP PRN IV 04/01/24 05:00 Acetaminophen 650 mg Q6HP PRN PO 04/01/24 05:00 04/01/24 18:29 650 MG Nitroglycerin 0.4 mg Q5MINP PRN SL 04/01/24 05:00 Morphine Sulfate 2 mg Q30M PRN IV 04/01/24 05:00 Albuterol 2.5 mg Q6HR NEB 04/01/24 06:00 04/03/24 12:06 2.5 MG Amiodarone HCl 250 ml @ 16.667 mls/ hr Q15H IV 04/01/24 14:00 04/03/24 08:44 16.667 MLS/HR Fentanyl Citrate 250 ml @ 2.5 mls/hr Q24H IV 04/01/24 10:00 04/02/24 12:42 2.5 MLS/HR Phenylephrine HCl 80 mg/Sodium Chloride 250 ml @ 7.5 mls/hr Q24H IV 04/01/24 10:45 04/03/24 09:18 16.875 MLS/HR Norepinephrine Bitartrate 32 mg/ Sodium Chloride 250 ml @ 0.938 mls/ hr Q24H IV 04/01/24 10:45 04/02/24 02:10 1.875 MLS/HR Meropenem 50 ml @ 17 mls/hr Q12HR IV 04/02/24 10:00 04/03/24 09:19 17 MLS/HR Fentanyl Citrate 250 ml @ 2.5 mls/hr Q24H IV 04/02/24 11:15 Albumin Human 100 ml @ 100 mls/hr KIRAN PRN IV 04/03/24 07:00 Vancomycin HCl 0 ml @ 0 mls/hr UD IV 04/03/24 12:30 Furosemide 100 mg/ Sodium Chloride 110 ml @ 16.5 mls/hr Q6H40M IV 04/03/24 15:30 Examination Physical Examination General: Patient sedated on mechanical ventilator: VT 500, RR 24, FiO2 50%, PEEP 10, sat 97% HEENT: Normocephalic, atraumatic, moist mucous membranes Respiratory/pulmonary: There are no breath sounds auscultable on the right lung base. On the left lung there is decrease of breath sounds and completely diminished at the base of the lung. Cardiovascular: Normal heart sounds S1 and S2 with no associated murmurs Abdomen: Abdomen slightly distended, there is no pain to palpation in any of the abdominal quadrants, no palpable masses. Extremities: There is minimal swelling in the lower extremities bilaterally. Peripheral Pulses: 3+ Radial (R). 3+ Radial (L). 3+ Dorsalis pedis (R). 3+ Dorsalis pedis(L) Skin: There is dry skin in bilateral lower extremities with scales and excoriations. Neurological: Sedated, RASS -3 laboratory and microbiology Laboratory Tests 04/03/24 14:29 04/03/24 03:45 Test 04/03/24 03:45 Range/Units Serum Glucose 143 H 74-106 mg/dL Microbiology Date/Time Source Procedure Growth Status 04/01/24 15:30 Pleural Fluid Gram Stain - Final Resulted 04/01/24 15:30 Pleural Fluid Aerobic Culture - Preliminary Resulted 04/01/24 11:19 Nose MRSA Screen - Final Complete 04/01/24 07:18 Blood Blood Culture - Preliminary Resulted 03/31/24 22:55 Sputum Endotracheal Wash Gram Stain - Final Resulted 03/31/24 22:55 Sputum Endotracheal Wash Respiratory Culture - Preliminary Resulted Problem List/Assessment/Plan Problem List/Assessment/Plan Assessment/Plan Neurology Sedation -currently on midazolam and fentanyl Vasopressors -currently on Levophed, vasopressin, phenylephrine Respiratory Acute hypoxic respirtory failure likel due to right-sided pleural effusion and consolidation on right middle and lower lobes -initial chest x-ray showed severe right lower lobe opacities consistent with either consolidation or moderate to severe pleural effusion -CT of the chest and abdomen showed moderate partial loculated right pleural effusion and consolidation on right middle/lower lobes. Mild cardiomegaly and interstitial pulmonary edema. It also showed right hydronephrosis with 1.9 cm calculus into the right UPJ. There is also a 2.6 cm staghorn appearing calculus causing mid to lower pole left hydronephrosis. -the patient was initially started on Zosyn, vancomycin and cefepime. We discontinued Zosyn and cefepime. -we will switch linezolid vack to vancomycin due to low platelet. -start renal dose of IV meropenem -consulted interventional radiologist which performed right-sided thoracentesis removing 250 mL of fluid which were sent to analysis. -currently on mechanical ventilator on the following parameters: VT 500, RR 24, FiO2 50%, PEEP 10, saturating 92%. -consulted surgery for possible right thoracotomy. -decrease PEEP to 6 Sepsis in the setting of loculated right-sided pleural effusion and pneumonia -ordered blood cultures, sputum cultures and urine culture -currently on IV meropenem and linezolid -Will monitor plateletes closely -S/P right-sided thoracentesis removing 250 mL of fluids. -chest x-ray this morning showed still right-sided opacities and left opacities in the base of the lung. Cardiology Acute on chronic systolic/diastolic heart failure -BNP came back elevated at 274.69 -initial EKG showed sinus tachycardia with PACs but no ST segment elevation or depression at that time -troponins came back elevated at 1469 and peaked up to 1684 -echocardiogram is showing an LVEF of 55-60% with increased RVSP at 48 mmHg and no pericardial effusion -furosemide drip at 20 mg/hr NSTEMI type II ? -troponins came back elevated at 1469 and peaked up to 1684 -Trend trops Atrial fibrilation with RVR -patient was placed on amiodarone drip 0.5 mg/min -CHADS VASC score HAS BLED score -heparin drip was hold for right-sided chest tube placement and david catheter placement -patient underwent atrial flutter with a heart rate of 180 to 200, cardiology decided to perform synchronized cardioversion and continue amiodarone drip. Nephrology Bilateral hydronephrosis -CT scan of the chest and abdomen showed right hydronephrosis with 1.9 cm calculus into the right UPJ, there was also a 2.6 cm staghorn appearing calculus causing mid to lower pole left hydronephrosis. -nephrology on board -consulted Urology for bilateral nephrostomy tube placement -David catheter placed on L IJ on 04/08/24 CHRISTOPH likely postobstructive nephropathy -most likely secondary to bilateral renal calculi -creatinine was 4.68 and BUN 106 -nephrology and urology on board -consulted Urology for bilateral nephrostomy tube placement, if therapy does not improve patient might need hemodialysis as last resource Hyperkalemia -potassium was 5.0 -monitor closely Lines: IJ right triple-lumen placed on 03/31/2024 Peripheral in right wrist placed on 03/31/2024 Peripheral in left forearm placed on 03/31/2024 David catheter placed in the left IJ placed on 04/02/2024 Goals of care discussed with the daughter for >23min Critical time spent > 82 min including dw family/consultants Plan discussed with Dr. Jones Plan discussed with: Daughter My Orders My Orders Orders - KEVON BLANTON RESIDENT Procedure Category Date Status Time * Dietary Consult CONS 04/02/24 Transmitted 17:44 Cleanse Wound With ANDRIA 04/02/24 In Process Mild Soap A 16:00 Abg W/ Co-Ox RT 04/03/24 Logged 04:00 Chest Xray 1 View XY 04/03/24 Resulted 04:00 Ventilator Orders RT 04/03/24 Transmitted 06:53 Ventilator Orders RT 04/03/24 Transmitted 09:40 Dietary Evaluation Review Comments: 1) If GI is accessible consider Nepro 1.8 @ 30 ml/hr goal rate as tolerated with current rate of propofol on board. 2) If pt remains NPO >7 days consider TPN to meet at least 75% of estimated needs 3) If pt continues to receive HD, advance pt diet when medically feasible to a Renal Standard diet modified per STIFF NECK LOADER recommendations 4) If HD is discontinued and GFR is within normal range, advance pt diet to a Regular diet, modified per STIFF NECK LOADER recommendations 5)If HD is discontinued and GFR lies within STG 1-4, advance pt diet to a Renal Specific K2,lowphos,HECTOR,2gmNa,80gPro diet 6) If HD is discontinued and if GFR returns to normal levels then ALEXANDRA 1 pkt BID with meals may be considered to aid with wound healing 7) Continue current plan of care Expected Outcomes/Goals: 1) Pt to receive nutrition support within 7 days of NPO status 2) Pt labs to improve 3) Pt diet to advance 4) F/U in 2-3 days Date of Service: Apr 03, 2024 Billing Provider: LAURIE JONES MD Common Visit Codes: 08981-[id number] CARE 30-74 MIN, [id number] CARE-EACH +30MIN KEVON BLANTON RESIDENT Apr 03, 2024 16:10 LAURIE JONES MD Apr 05, 2024 19:58
[2024-04-03] MEDS: VANCOMYCIN 1GM/200ML PREMIX 200 ML IV SCH (16:18)
[2024-04-03] MEDS: DIGOXIN (250MCG/ML) 2 ML AMPULE IV ONE ×2 (17:10→19:30)
[2024-04-03] MEDS: ATROPINE SULF 1 MG/10ml SYR ONE (17:47)
[2024-04-03] MEDS: CALCIUM GLUC 1,000mg/50ml-NS 50 ML IV ONE (18:53)
[2024-04-03 19:35] LABS: Chloride 99 mmol/L (98-107); Potassium 5.4 mmol/L (3.5-5.1)
[2024-04-03 19:36] LABS: Calcium 7.5 mg/dL (8.7-10.4); Carbon Dioxide 25 mmol/L (20-31)
[2024-04-03 19:41] LABS: BUN/Creatinine Ratio 20.8 (10.0-20.0); Glucose 162 mg/dL (74-106); Magnesium 2.2 mg/dL (1.6-2.6)
[2024-04-03 19:44] LABS: Blood Urea Nitrogen 98 mg/dL (9-23)
[2024-04-03 19:45] LABS: Anion Gap 14 (5-15); Sodium 138 mmol/L (136-145)
--- NOTE | 2024-04-03 19:47 | DVHINCON2 ---
DATE OF CONSULTATION: 04/03/2024 SURGICAL CONSULTATION The patient is evaluated for sepsis and right chest empyema. HISTORY OF PRESENT ILLNESS: The patient is a 68-year-old female, intubated and sedated in the Intensive Care Unit on multiple pressor agents secondary to sepsis. I was called by Dr. Ogden who requested a right chest thoracoscopy/thoracotomy in order to evacuate what appears to be right chest empyema. The patient has been intubated for "airway protection." Remain sedated and unable to cooperate with my evaluation. The patient is apparently a nonsmoker, nondrinker, uses no drugs. Has no known listed medicinal allergies. Most of the information is obtained from discussion with Dr. Ogden and with review of the patient's x-rays and chest x-rays and chart. PHYSICAL EXAMINATION: GENERAL: She is a morbidly obese female with evidence of venous stasis in both lower extremities. HEENT: Pupils are reactive and equal. The patient is intubated. CHEST: Both lungs sound clear, although right side is markedly diminished. ABDOMEN: The patient has a nonobese, nontender, and nondistended abdomen. EXTREMITIES: As outlined above with stasis of venous insufficiency. LABORATORY DATA: The patient's laboratory evaluation shows a leukocytosis with a left shift. The patient's INR is 1.08 and PT is 11.4. The patient's chemistry shows elevated BUN and creatinine. The patient's imaging on admission showed a large right-sided pleural effusion, which is multiloculated and there is consolidation of the right middle and lower lobes. ASSESSMENT AND PLAN: The patient has an interstitial pulmonary edema, anasarca. At the present time, patient is in acute renal failure, intubated, respiratory failure, obesity, shock secondary to sepsis, although she is a very marginal candidate for an operation, I will proceed with a right thoracoscopy, possible thoracotomy for evacuation of empyema in order to aggressively treat her empyema and sepsis. She is presently in atrial fibrillation with a rapid ventricular response and I have requested an urgent cardiology evaluation as well as an urgent echocardiogram in preparation for operation. Juve Wade MD PF TID: [id number] RECEIPT: [id number]
[2024-04-03] MEDS: EPOETIN ALFA-EPBX 10,000 UNIT/1ML VIAL SC ONE (21:00)
[2024-04-03] MEDS: DEXTROSE (50%) 50ML SYRG IV ONE (22:08)
[2024-04-03] MEDS: InsuLIN REG 1unit/0.01ml Soln (100units/ml) IV ONE (22:27)
[2024-04-03 23:21] LABS: Basophils # (auto) 0.1 10 ^3/uL (0-0.2); Basophils % (auto) 0.5 % (0.0-2.0); Eosinophils # (auto) 0 10 ^3/uL (0-0.8); Eosinophils % (auto) 0.1 % (0.0-7.0); Hematocrit 27.8 % (36.0-46.0); Hemoglobin 8.6 g/dL (12.2-16.2); Lymphocytes # (auto) 1.8 10 ^3/uL (0.4-5.4); Lymphocytes % (auto) 9.7 % (10.0-50.0); Mean Corpuscular Hemoglobin 23.9 pg (28.0-32.0); Mean Corpuscular Hgb Conc. 30.8 g/dL (32.0-36.0); Mean Corpuscular Volume 77.5 fL (80.0-100.0); Monocytes # (auto) 0.4 10 ^3/uL (0-1.3); Monocytes % (auto) 2.4 % (0.0-12.0); Neutrophils % (auto) 87.3 % (37.0-80.0); Nucleated Red Blood Cells % 0.3 %; Platelet Count (auto) 153 10^3/uL (140-450); Red Blood Cells 3.58 10^6/uL (4.0-5.20); Red Cell Distribution Width 18.7 % (11.8-14.3); White Blood Cell 18.4 10^3/uL (4.4-10.8)
[2024-04-03 23:44] LABS: Base Excess -0.8 mmol/L (-2.0-3.0)
[2024-04-04] VITALS (123 sets, daily range): BP systolic 69–166; BP diastolic 28–96; PULSE 65–185; RESP 23–26; TEMP 99–100.8; O2SAT 91–99
[2024-04-04] LABS: Anion Gap 16 (5-15); Carbon Dioxide 23 mmol/L (20-31); Chloride 99 mmol/L (98-107); Potassium 4.9 mmol/L (3.5-5.1); Sodium 138 mmol/L (136-145)
[2024-04-04 00:01] LABS: Calcium 7.2 mg/dL (8.7-10.4)
[2024-04-04 00:06] LABS: BUN/Creatinine Ratio 21.1 (10.0-20.0); Glucose 165 mg/dL (74-106)
[2024-04-04 00:18] LABS: Blood Urea Nitrogen 98 mg/dL (9-23)
[2024-04-04 04:10] LABS: Basophils # (auto) 0 10 ^3/uL (0-0.2); Eosinophils # (auto) 0 10 ^3/uL (0-0.8); Eosinophils % (auto) 0.1 % (0.0-7.0); Hematocrit 27.5 % (36.0-46.0); Hemoglobin 8.9 g/dL (12.2-16.2); Lymphocytes # (auto) 1.7 10 ^3/uL (0.4-5.4); Mean Corpuscular Hemoglobin 24.5 pg (28.0-32.0); Mean Corpuscular Hgb Conc. 32.5 g/dL (32.0-36.0); Mean Corpuscular Volume 75.4 fL (80.0-100.0); Monocytes # (auto) 0.4 10 ^3/uL (0-1.3); Monocytes % (auto) 2.2 % (0.0-12.0); Neutrophils % (auto) 88.7 % (37.0-80.0); Nucleated Red Blood Cells % 0.3 %; Platelet Count (auto) 168 10^3/uL (140-450); Red Blood Cells 3.65 10^6/uL (4.0-5.20); Red Cell Distribution Width 17.7 % (11.8-14.3); White Blood Cell 19.2 10^3/uL (4.4-10.8)
[2024-04-04 04:29] LABS: Alanine Aminotransferase 16 U/L (7-40); Albumin 3.2 g/dL (3.2-4.8); Alkaline Phosphatase 109 U/L (46-116); Anion Gap 17 (5-15); Aspartate Aminotransferase 40 U/L (13-40); BUN/Creatinine Ratio 24.3 (10.0-20.0); Bilirubin, Total 0.6 mg/dL (0.2-1.0); Calcium 7.1 mg/dL (8.7-10.4); Carbon Dioxide 25 mmol/L (20-31); Chloride 97 mmol/L (98-107); Glucose 136 mg/dL (74-106); Magnesium 2.1 mg/dL (1.6-2.6); Potassium 5.3 mmol/L (3.5-5.1); Sodium 139 mmol/L (136-145); Total Protein 6.1 g/dL (5.7-8.2)
[2024-04-04 04:34] LABS: Lactic Acid w/Reflex 2.5 mmol/L (0.4-2.0)
[2024-04-04 04:35] LABS: Blood Urea Nitrogen 109 mg/dL (9-23)
[2024-04-04] MEDS: InsuLIN REG 1unit/0.01ml Soln (100units/ml) IV ONE (05:00)
[2024-04-04] MEDS: DEXTROSE (50%) 50ML SYRG IV ONE (05:00)
[2024-04-04] MEDS: SODIUM BICARB 8.4% 50Meq/50ml SYR INJ IV ONE (05:00)
[2024-04-04] MEDS: DEXTROSE 50% SYRINGE 50 ML IV ONE (05:10)
[2024-04-04] MEDS: SODIUM BICARB 8.4% 50Meq/50ml SYR Vial IV ONE (05:11)
--- NOTE | 2024-04-04 05:55 | DVH ---
CHEST RADIOGRAPH Indication:right sided opacity Technique: Single frontal view of the chest was obtained COMPARISON: XY CHEST XRAY 1 VIEW on DOS: 04/03/24, XY CHEST XRAY 1 VIEW on DOS: 04/02/24, XY CHEST XRAY 1 VIEW on DOS: 04/02/24 FINDINGS: Lines and Tubes: Endotracheal tube, enteric catheter, right and left central venous catheters are unc hanged in position. Lungs: Multifocal airspace disease. Pleura: Small to moderate right pleural effusion; possibly loculated. No pneumothorax. Cardiomediastinal contours: Unremarkable Bones: Unremarkable IMPRESSION: Unchanged multifocal airspace disease. Small to moderate right pleural effusion ; possibly loculated.
[2024-04-04 06:25] LABS: Base Excess 1.4 mmol/L (-2.0-3.0)
--- NOTE | 2024-04-04 07:04 | DVHPN2 ---
Progress Note - Dictate Date Seen: Apr 04, 2024 Has the PT tested + for MRSA If YES, has PT been informed?: No Medical Necessity Reason Pt with a Central, PICC or Fol: Yes The following are medically ne: Central Line, Martines Catheter vital signs Vital Sign Date Time Temp Pulse Resp B/P (MAP) Pulse Ox O2 Delivery O2 Flow Rate FiO2 04/04/24 06:09 77/45 04/04/24 05:15 146 25 95 04/04/24 04:46 Mechanical Ventilator+ 40 40 04/04/24 04:00 99.1 99.1 Total Intake and Output 04/03/24 04/03/24 04/04/24 15:00 23:00 07:00 Intake Total 1513.135 ml 1248.904 ml 591.692 ml Output Total 2075 ml 1900 ml Balance 1513.135 ml -826.096 ml -1308.308 ml medications Current Medications Medications Dose Ordered Sig/Destini Route Start Time Stop Time Status Last Admin Dose Admin Heparin Sodium/ Dextrose 250 ml @ 18 mls/hr [id number] IV 03/31/24 23:45 UNV Midazolam HCl 50 ml @ 1 mls/hr Q24H IV 04/01/24 01:30 04/04/24 04:33 15 MLS/HR Vasopressin 20 units/Sodium Chloride 100 ml @ 9 mls/hr Q11H7M IV 04/01/24 01:30 04/03/24 18:56 9 MLS/HR Propofol 100 ml @ 4.5 mls/hr [id number] IV 04/01/24 02:30 04/02/24 15:01 4.5 MLS/HR Ondansetron HCl 4 mg Q4HP PRN IV 04/01/24 05:00 Acetaminophen 650 mg Q6HP PRN PO 04/01/24 05:00 04/01/24 18:29 650 MG Nitroglycerin 0.4 mg Q5MINP PRN SL 04/01/24 05:00 Morphine Sulfate 2 mg Q30M PRN IV 04/01/24 05:00 Albuterol 2.5 mg Q6HR NEB 04/01/24 06:00 04/03/24 12:06 2.5 MG Amiodarone HCl 250 ml @ 16.667 mls/ hr Q15H IV 04/01/24 14:00 04/04/24 02:50 33.333 MLS/HR Fentanyl Citrate 250 ml @ 2.5 mls/hr Q24H IV 04/01/24 10:00 04/03/24 22:26 10 MLS/HR Phenylephrine HCl 80 mg/Sodium Chloride 250 ml @ 7.5 mls/hr Q24H IV 04/01/24 10:45 04/03/24 18:57 0 MLS/HR Norepinephrine Bitartrate 32 mg/ Sodium Chloride 250 ml @ 0.938 mls/ hr Q24H IV 04/01/24 10:45 04/02/24 02:10 1.875 MLS/HR Meropenem 50 ml @ 17 mls/hr Q12HR IV 04/02/24 10:00 04/03/24 22:12 17 MLS/HR Fentanyl Citrate 250 ml @ 2.5 mls/hr Q24H IV 04/02/24 11:15 Albumin Human 100 ml @ 100 mls/hr KIRAN PRN IV 04/03/24 07:00 Vancomycin HCl 0 ml @ 0 mls/hr UD IV 04/03/24 12:30 Furosemide 100 mg/ Sodium Chloride 110 ml @ 16.5 mls/hr Q6H40M IV 04/03/24 15:30 04/04/24 06:09 16.5 MLS/HR Norepinephrine Bitartrate 32 mg/ Sodium Chloride 250 ml @ 0.469 mls/ hr Q24H IV 04/04/24 06:30 laboratory and microbiology Laboratory Tests 04/04/24 03:30 Test 04/04/24 03:30 Range/Units Serum Glucose 136 H 74-106 mg/dL Assessment/Plan Patient is a 68-year-old female who was transferred from [facility]. She originally presented to [facility] for shortness of breath ongoing for few days. She is intubated and is being managed in ICU. Information was obtained by reviewing the chart and communicating with staff. Reportedly, she presented with respiratory failure to [facility] (oxygen saturation was 88%) and over there was found to have white blood cell count of 26.6, hemoglobin of 11.1, creatinine of 5.6, potassium of 5.6 and troponin of 1.01. She was given 365 mg of aspirin in [facility]. She did have an episode of atrial fibrillation with RVR with questionable ST changes and was transferred to our facility for further care. She was also found to have right pleural effusion in [facility] and was diagnosed with non-STEMI. Intubated, on vent support. On pressure support. Obese. Mucosa is pale. Scattered rhonchi in the lungs is heard. Cardiac: Regular, no thrill/gallop. Abdomen is soft with increased bowel sounds. There is no gross mass. Extremities reveal 1+ edema bilaterally. Available past medical history includes obesity and questionable history of psoriasis. WBC: 25.3 - 23.7 - 20.2 - 20.5 - 17.6 - 18.4 - 19.2 Hemoglobin: 10.8 - 9.1 - 8.5 - 8.4 - 8.8 - 8.6 - 8.9 D-dimer: 3.62 Creatinine: 5.67 - 5.78 - 5.41 - 4.92 - 4.55 - 4.68 - 4.71 - 4.64 - 4.48 Potassium: 6.0 - 6.3 - 6.1 - 6.0 - 5.3 - 5.0 - 4.9 - 4.8 - 5.1 - 5.4 - 4.9 - 5.3 Lactic acid: 3.3 - 3.4 - 2.3 - 2.5 TSH: 1.71 BNP: 274.69 Troponin (high sensitive): 1469 - 1515 - 1684 Blood culture: positive Stool OB: positive Chest x-ray revealed: IMPRESSION: 1. Moderate right pleural effusion. 2. Cardiomegaly with mild pulmonary vascular congestion bilaterally. Repeat chest x-ray revealed: IMPRESSION: 1. Endotracheal tube and gastric tubes in place as described. 2. Right IJ central venous catheter projects over the lower SVC. 3. Mild cardiomegaly and prominence of the pulmonary vasculature. 4. Moderate to large right pleural effusion. Repeat chest x-ray revealed: IMPRESSION: Similar lung aeration with large right pleural effusion. No pneumothorax seen. Stable lines and tubes. Repeat chest x-ray revealed: IMPRESSION: Similar lung aeration with large right pleural effusion. No pneumothorax seen. Stable lines and tubes. Repeat chest xry revealed: Lines and tubes: ET in the mid thoracic trachea. NG crosses midline. Right CVC is stable. Left HD catheter projects over the mediastinum. Cardiomediastinal silhouette: Enlarged Pulmonary vasculature: prominent Lung expansion: low Lung airspace: patchy bilateral airspace opacity. Lung interstitium: normal Pleura: Similar large right effusion. Pneumothorax: no Bones: Unremarkable Other: no IMPRESSION: Lines and tubes, as above. Similar lung aeration bilaterally with a right pleural effusion and patchy airspace opacities. Repeat chest xry revealed: IMPRESSION: 1. Stable position of the support lines and tubes. 2. Interstitial and alveolar opacities. Repeat chest xry revealed: CT scan of the chest/abdomen and pelvis revealed: IMPRESSION: 1. Moderate partially loculated right pleural effusion and consolidations in the right middle and lower lobes which could be pneumonia and/or atelectasis. 2. Mild cardiomegaly, mild interstitial pulmonary edema, and body wall edema. 3. There is a 1.9 cm calculus in the right UPJ with mild right hydronephrosis 4. There is a 2.6 cm somewhat staghorn appearing calculus in the left renal pelvis and UPJ causing mild predominantly mid to lower pole left hydronephrosis. Mild soft tissue stranding about the left renal pelvis which could be due to obstruction or superimposed infection. Correlate with urinalysis. 5. Partial duplication of the left renal collecting system without hydronephrosis in the upper pole. 6. Moderate right perinephric, right retroperitoneal, and bilateral extraperitoneal pelvis low-density fluid and very mild left retroperitoneal low-density fluid. This could be fluid related to bilateral renal obstructions and forniceal ruptures versus evolved retroperitoneal hematoma. This is suboptimally evaluated without intravenous contrast. 7. Fluid-filled small and large bowel loops which may be physiologic or related to enterocolitis and could be manifesting as loose stools and/or diarrhea. 8. Prominent endometrium measuring at least 2.8 cm, suboptimally evaluated by CT. Recommend characterization with nonemergent pelvic ultrasound if clinically indicated. 9. Mild hepatosplenomegaly. 10. Moderate three-vessel calcified coronary artery disease and mild aortic valve calcification. 11. Right IJ central venous catheter in place terminating in the low SVC. 12. Small soft tissue stranding in the right supraclavicular neck which could be blood products. 13. Endotracheal tube terminates above the mili. CT of the head revealed: IMPRESSION: 1. No acute intracranial abnormality. 2. Generalized cerebral volume loss and mild chronic microvascular ischemic change. 3. Partially imaged endotracheal tube. Chest ultrasound revealed: Findings/Impression: There is a trace bilateral pleural effusion. Thoracentesis: FINDINGS: Moderate size, complex and septated right pleural effusion. Aspirated fluid is thick and green in consistency. IMPRESSION: Right thoracentesis with 250 mL removed for laboratory analysis. EKG in [facility] revealed sinus tachycardia, poor R-wave progression old inferior wall VA. later EKG revealed atrial fibrillation with RVR. Telemetry reveals sinus rhythm, occasions of A-fib with RVR, SVT Echocardiogram revealed: Technically limited study secondary to poor acoustic windows. Left ventricle: Left ventricle was normal-sized. Mild concentric left ventricular hypertrophy was seen. LVEF was 55-60%. No gross wall motion abnormality was observed, but its presence can not be ruled out on the basis of this study. Right ventricle is mildly dilated with normal systolic function. Left atrium was mildly dilated. Right atrium was normal-sized. Aortic valve was trileaflet. There was no aortic insufficiency. There was aortic sclerosis with no stenosis. There was trivial mitral/tricuspid regurgitation. Pulmonary valve was not well visualized. Right ventricular systolic pressure was assessed around 48 mm Hg. There was no pericardial effusion. Patient is a 68-year-old morbidly obese patient who presented with respiratory failure to the hospital. Presentation is in favor of sepsis/septic shock. Multiorgan failure is observed. She is intubated and on vent support. She is on multiple pressor support. Life findings are in favor of acute renal failure. She also is known to have nephrolithiasis with history of staghorn calculi. Cardiac-ceballos, the patient did have episode of atrial fibrillation with RVR. She is found to have increased troponin. Presentation questions non-STEMI and possibly type 2 ischemia. Recognizing the presentation, ischemic workup should be postponed after clinical stability. Is being followed by Nephrology. Had episodes of tachyarrhythmia. Loaded with Digoxin. Septic shock Multiorgan failure Acute respiratory failure on vent support Acute renal failure Nephrolithiasis Staghorn calculi Hydronephrosis Abnormal troponin, non-STEMI Atrial fibrillation with RVR Paroxysmal AFib Acute heart failure, diastolic Hepatosplenomegaly Pleural effusion Status post thoracentesis Morbid obesity s/p Cardioversion for A-fib with RVR Cardiac suggestion for management: Manage in ICU Follow-up electrolytes and kidney function tests and correct abnormalities Pressure support to keep mean arterial pressure above 65 Amiodarone drip Heparin drip Daily aspirin (81 mg daily) Loaded with Digoxin Sepsis workup and management as per primary team Cardiac ceballos, patient is elevated risk patient for urgent Thoracotomy procedure. You can consider proceeding with procedure under appropriate intra and post operative hemodynamic monitoring. If you choose to proceed with procedure, try to avoid hypotension. Evaluation and management of respiratory failure as per primary team/Pulmonary Evaluation and management of nephrolithiasis/hydronephrosis as per primary/Urology Evaluation and management of acute renal failure as per Nephrology Ischemic workup, after clinical stability Further evaluation and management as per above and clinical course. A total of 75 minutes was spent reviewing the patient record, examining the patient, making a diagnostic and therapeutic plan, discussing this plan with medical personnel, following up on diagnostic studies and following the patient for clinical stability excluding any and all procedures. At least 50% of this time was spent in direct, [id number] contact. Thank you for allowing me to participate in this patient's care. Further recommendations will depend on patient's clinical course. Please do not hesitate to contact me if you have any questions or concerns. This medical document was created using electronic medical record system with [employer] computerized dictation system. Although this document has been carefully reviewed, there may still be some phonetic and typographical errors. These areas are purely typographical due to the imperfection of the software programs, and do not reflect any compromise in the patient's medical care. Dietary Evaluation Review Comments: 1) If GI is accessible consider Nepro 1.8 @ 30 ml/hr goal rate as tolerated with current rate of propofol on board. 2) If pt remains NPO >7 days consider TPN to meet at least 75% of estimated needs 3) If pt continues to receive HD, advance pt diet when medically feasible to a Renal Standard diet modified per CRM MANAGER recommendations 4) If HD is discontinued and GFR is within normal range, advance pt diet to a Regular diet, modified per CRM MANAGER recommendations 5)If HD is discontinued and GFR lies within STG 1-4, advance pt diet to a Renal Specific K2,lowphos,HECTOR,2gmNa,80gPro diet 6) If HD is discontinued and if GFR returns to normal levels then ALEXANDRA 1 pkt BID with meals may be considered to aid with wound healing 7) Continue current plan of care Expected Outcomes/Goals: 1) Pt to receive nutrition support within 7 days of NPO status 2) Pt labs to improve 3) Pt diet to advance 4) F/U in 2-3 days Plan discussed with: Other (nurse) HERMINIO JOHNSON MD Apr 04, 2024 07:04
[2024-04-04] MEDS: NOREPINEPHRINE BITARTRATE 32 MG in SODIUM CHL 0.9% 218 ML IV SCH (09:33)
--- NOTE | 2024-04-04 11:10 | DVHPN2 ---
Progress Note Date Seen: Apr 04, 2024 Has the PT tested + for MRSA If YES, has PT been informed?: No Medical Necessity Reason Pt with a Central, PICC or Fol: Yes The following are medically ne: Central Line, Martines Catheter Subjective Review of Systems: RESPIRATORY:Abnormal Other Systems: Patient seen and examined by myself today in follow-up, Patient remained intubated on ventilator Patient examined hemodialysis, blood pressure stable Objective vital signs Vital Sign Date Time Temp Pulse Resp B/P (MAP) Pulse Ox O2 Delivery O2 Flow Rate FiO2 04/04/24 10:20 68 24 106/44 (64) 95 40 04/04/24 08:00 Mechanical Ventilator+ 04/04/24 04:00 99.1 99.1 Total Intake and Output 04/03/24 04/03/24 04/04/24 15:00 23:00 07:00 Intake Total 1483.635 ml 1220.404 ml 591.692 ml Output Total 2075 ml 1900 ml Balance 1483.635 ml -854.596 ml -1308.308 ml medications Current Medications Medications Dose Ordered Sig/Destini Route Start Time Stop Time Status Last Admin Dose Admin Heparin Sodium/ Dextrose 250 ml @ 18 mls/hr [id number] IV 03/31/24 23:45 UNV Midazolam HCl 50 ml @ 1 mls/hr Q24H IV 04/01/24 01:30 04/04/24 09:31 15 MLS/HR Vasopressin 20 units/Sodium Chloride 100 ml @ 9 mls/hr Q11H7M IV 04/01/24 01:30 04/03/24 18:56 9 MLS/HR Propofol 100 ml @ 4.5 mls/hr [id number] IV 04/01/24 02:30 04/02/24 15:01 4.5 MLS/HR Ondansetron HCl 4 mg Q4HP PRN IV 04/01/24 05:00 Acetaminophen 650 mg Q6HP PRN PO 04/01/24 05:00 04/01/24 18:29 650 MG Nitroglycerin 0.4 mg Q5MINP PRN SL 04/01/24 05:00 Morphine Sulfate 2 mg Q30M PRN IV 04/01/24 05:00 Albuterol 2.5 mg Q6HR NEB 04/01/24 06:00 04/03/24 12:06 2.5 MG Amiodarone HCl 250 ml @ 16.667 mls/ hr Q15H IV 04/01/24 14:00 04/04/24 02:50 33.333 MLS/HR Fentanyl Citrate 250 ml @ 2.5 mls/hr Q24H IV 04/01/24 10:00 04/03/24 22:26 10 MLS/HR Phenylephrine HCl 80 mg/Sodium Chloride 250 ml @ 7.5 mls/hr Q24H IV 04/01/24 10:45 04/03/24 18:57 0 MLS/HR Norepinephrine Bitartrate 32 mg/ Sodium Chloride 250 ml @ 0.938 mls/ hr Q24H IV 04/01/24 10:45 04/02/24 02:10 1.875 MLS/HR Meropenem 50 ml @ 17 mls/hr Q12HR IV 04/02/24 10:00 04/04/24 09:37 17 MLS/HR Fentanyl Citrate 250 ml @ 2.5 mls/hr Q24H IV 04/02/24 11:15 Albumin Human 100 ml @ 100 mls/hr KIRAN PRN IV 04/03/24 07:00 Vancomycin HCl 0 ml @ 0 mls/hr UD IV 04/03/24 12:30 Furosemide 100 mg/ Sodium Chloride 110 ml @ 16.5 mls/hr Q6H40M IV 04/03/24 15:30 04/04/24 06:09 16.5 MLS/HR Norepinephrine Bitartrate 32 mg/ Sodium Chloride 250 ml @ 0.469 mls/ hr Q24H IV 04/04/24 06:30 Examination: LUNGS:Normal, CVS:Normal, MSK:Abnormal laboratory and microbiology Laboratory Tests 04/04/24 03:30 Test 04/04/24 03:30 Range/Units Serum Glucose 136 H 74-106 mg/dL Microbiology Date/Time Source Procedure Growth Status 04/01/24 15:30 Pleural Fluid Gram Stain - Final Complete 04/01/24 15:30 Aerobic Culture - Final Escherichia coli Complete 04/01/24 11:19 Nose MRSA Screen - Final Complete 04/01/24 07:18 Blood Blood Culture - Preliminary Resulted 03/31/24 22:55 Sputum Endotracheal Wash Gram Stain - Final Complete 03/31/24 22:55 Sputum Endotracheal Wash Respiratory Culture - Final Complete Problem List/Assessment/Plan Problem List/Assessment/Plan Acute kidney injury due to ATN/hemodynamic from shock, requiring intermittent hemodialysis Acute respiratory failure, intubated on ventilator NSTEMI septic shock empyema metabolic acidosis resolved b/l renal stones w/ hydronephrosis morbid obesity hyperkalemia afib RVR Recommendations Continue with UF 2 L as tolerated Epogen 33914 IV post hemodialysis DC Lasix drip IV pressors for blood pressure support Strict I&Os IV antibiotics Urology consult We will continue to follow Plan discussed with: Daughter, Other (Nurse) Dietary Evaluation Review Comments: 1) If GI is accessible consider Nepro 1.8 @ 30 ml/hr goal rate as tolerated with current rate of propofol on board. 2) If pt remains NPO >7 days consider TPN to meet at least 75% of estimated needs 3) If pt continues to receive HD, advance pt diet when medically feasible to a Renal Standard diet modified per PRACTICE SPECIALIST recommendations 4) If HD is discontinued and GFR is within normal range, advance pt diet to a Regular diet, modified per PRACTICE SPECIALIST recommendations 5)If HD is discontinued and GFR lies within STG 1-4, advance pt diet to a Renal Specific K2,lowphos,HECTOR,2gmNa,80gPro diet 6) If HD is discontinued and if GFR returns to normal levels then ALEXANDRA 1 pkt BID with meals may be considered to aid with wound healing 7) Continue current plan of care Expected Outcomes/Goals: 1) Pt to receive nutrition support within 7 days of NPO status 2) Pt labs to improve 3) Pt diet to advance 4) F/U in 2-3 days SWETA CHAND MD Apr 04, 2024 11:09
--- NOTE | 2024-04-04 11:34 | PRN ---
Misceleneous Note Note Note Note from "[employer]NALYST RESIDENT NIGHT FLOAT TEAM" We were called multiple times in the night as patient was in afib with RVR with fluctuating to controlled rate, potassium levels were corrected and ABG was reviewed. pt was on multiple pressors, amidarone drip and IV digoxin per stove tender recommendation In the morning, patient was having low BP and per stove tender recommendation received from the on-call resident during sign outs, Synchronized cardioversion was done at 120J after which patient rhythm converted to NSR only for about less than 30s and then again converted to A-fib pt BP was stable on same pressors requirement after sync cardioversion. All the events information were provided to the primary team in details in the morning sign outs. Attending physician: ANGEL WHELAN MD, [facility] RESIDENT Apr 04, 2024 11:34
[2024-04-04] MEDS: SODIUM CHL 0.9% 1000 ML BAG XX ONE (11:38)
--- NOTE | 2024-04-04 12:20 | DVHPN2 ---
Progress Note Date Seen: Apr 04, 2024 Has the PT tested + for MRSA If YES, has PT been informed?: No Medical Necessity Reason Pt with a Central, PICC or Fol: Yes The following are medically ne: Central Line, Martines Catheter Objective vital signs Vital Sign Date Time Temp Pulse Resp B/P (MAP) Pulse Ox O2 Delivery O2 Flow Rate FiO2 04/04/24 10:46 24 95 Mechanical Ventilator+ 40 40 04/04/24 10:20 68 106/44 (64) 04/04/24 04:00 99.1 99.1 Total Intake and Output 04/03/24 04/03/24 04/04/24 15:00 23:00 07:00 Intake Total 1483.635 ml 1220.404 ml 591.692 ml Output Total 2075 ml 1900 ml Balance 1483.635 ml -854.596 ml -1308.308 ml medications Current Medications Medications Dose Ordered Sig/Destini Route Start Time Stop Time Status Last Admin Dose Admin Heparin Sodium/ Dextrose 250 ml @ 18 mls/hr [id number] IV 03/31/24 23:45 UNV Midazolam HCl 50 ml @ 1 mls/hr Q24H IV 04/01/24 01:30 04/04/24 09:31 15 MLS/HR Vasopressin 20 units/Sodium Chloride 100 ml @ 9 mls/hr Q11H7M IV 04/01/24 01:30 04/03/24 18:56 9 MLS/HR Propofol 100 ml @ 4.5 mls/hr [id number] IV 04/01/24 02:30 04/02/24 15:01 4.5 MLS/HR Ondansetron HCl 4 mg Q4HP PRN IV 04/01/24 05:00 Acetaminophen 650 mg Q6HP PRN PO 04/01/24 05:00 04/01/24 18:29 650 MG Nitroglycerin 0.4 mg Q5MINP PRN SL 04/01/24 05:00 Morphine Sulfate 2 mg Q30M PRN IV 04/01/24 05:00 Albuterol 2.5 mg Q6HR NEB 04/01/24 06:00 04/03/24 12:06 2.5 MG Amiodarone HCl 250 ml @ 16.667 mls/ hr Q15H IV 04/01/24 14:00 04/04/24 02:50 33.333 MLS/HR Fentanyl Citrate 250 ml @ 2.5 mls/hr Q24H IV 04/01/24 10:00 04/03/24 22:26 10 MLS/HR Phenylephrine HCl 80 mg/Sodium Chloride 250 ml @ 7.5 mls/hr Q24H IV 04/01/24 10:45 04/03/24 18:57 0 MLS/HR Norepinephrine Bitartrate 32 mg/ Sodium Chloride 250 ml @ 0.938 mls/ hr Q24H IV 04/01/24 10:45 04/02/24 02:10 1.875 MLS/HR Meropenem 50 ml @ 17 mls/hr Q12HR IV 04/02/24 10:00 04/04/24 09:37 17 MLS/HR Fentanyl Citrate 250 ml @ 2.5 mls/hr Q24H IV 04/02/24 11:15 Albumin Human 100 ml @ 100 mls/hr KIRAN PRN IV 04/03/24 07:00 Vancomycin HCl 0 ml @ 0 mls/hr UD IV 04/03/24 12:30 Furosemide 100 mg/ Sodium Chloride 110 ml @ 16.5 mls/hr Q6H40M IV 04/03/24 15:30 04/04/24 06:09 16.5 MLS/HR Norepinephrine Bitartrate 32 mg/ Sodium Chloride 250 ml @ 0.469 mls/ hr Q24H IV 04/04/24 06:30 laboratory and microbiology Laboratory Tests 04/04/24 03:30 Test 04/04/24 03:30 Range/Units Serum Glucose 136 H 74-106 mg/dL Problem List/Assessment/Plan Problem List/Assessment/Plan 04/04/24I was just notified by anesthesiologists that they were evaluating the patient in the ICU and that she just became hemodynamically unstable and is being dialysed, the plan is to cardiovert her later this PM, I will cancel operation for today, it is also very likely that her sepsis is not due t othe pleural effusion but rather the hydronephrosis and superimposed urinary infection. Plan discussed with: Other Dietary Evaluation Review Comments: 1) If GI is accessible consider Nepro 1.8 @ 30 ml/hr goal rate as tolerated with current rate of propofol on board. 2) If pt remains NPO >7 days consider TPN to meet at least 75% of estimated needs 3) If pt continues to receive HD, advance pt diet when medically feasible to a Renal Standard diet modified per TECHNOLOGY AND ENGINEERING TEACHER recommendations 4) If HD is discontinued and GFR is within normal range, advance pt diet to a Regular diet, modified per TECHNOLOGY AND ENGINEERING TEACHER recommendations 5)If HD is discontinued and GFR lies within STG 1-4, advance pt diet to a Renal Specific K2,lowphos,HECTOR,2gmNa,80gPro diet 6) If HD is discontinued and if GFR returns to normal levels then ALEXANDRA 1 pkt BID with meals may be considered to aid with wound healing 7) Continue current plan of care Expected Outcomes/Goals: 1) Pt to receive nutrition support within 7 days of NPO status 2) Pt labs to improve 3) Pt diet to advance 4) F/U in 2-3 days SANTY HAZEL MD Apr 04, 2024 12:20
[2024-04-04] MEDS: LIDOCAINE 4MG/ML IV SOLN 500 ML IV ONE (13:05)
[2024-04-04] MEDS: LIDOCAINE 4MG/ML IV SOLN 500 ML IV SCH (13:06)
[2024-04-04] MEDS: METOPROLOL TARTRATE 1MG/1ML-5ML VIAL IV ONE ×2 (14:09→14:10)
[2024-04-04] MEDS: DIGOXIN (250MCG/ML) 2 ML AMPULE IV ONE (14:25)
[2024-04-04 15:34] LABS: Anion Gap 13 (5-15); Calcium 7.6 mg/dL (8.7-10.4); Carbon Dioxide 30 mmol/L (20-31); Chloride 97 mmol/L (98-107); Potassium 4.8 mmol/L (3.5-5.1); Sodium 140 mmol/L (136-145)
[2024-04-04 15:39] LABS: Glucose 125 mg/dL (74-106)
[2024-04-04 15:40] LABS: BUN/Creatinine Ratio 22.7 (10.0-20.0); Magnesium 2.1 mg/dL (1.6-2.6)
[2024-04-04 15:44] LABS: Blood Urea Nitrogen 87 mg/dL (9-23)
--- NOTE | 2024-04-04 16:39 | DVHPNRES ---
Progress Note Date Seen: Apr 04, 2024 Resident Creating Document: KEVON BLANTON RESIDENT Has the PT tested + for MRSA If YES, has PT been informed?: No Medical Necessity Reason Pt with a Central, PICC or Fol: Yes The following are medically ne: Central Line, Martines Catheter Subjective Review of Systems This is a 68-year-old female with unknown past medical history who was transferred from another facility ([facility]) for higher level of care. The patient initially was treated at that facility for shortness of breaths and back pain. The patient was transferred to our facility for higher level of care. The patient on arrival to the ED was tachypneic with severe respiratory failure, tachycardic rhythm consistent with atrial fibrillation and was saturating in the 70s. Initially placed on non-rebreather mask and then emergently intubated to protect airway. The patient was started on amiodarone drip 1 milligram/minute, phenylephrine, vasopressin and levophed. Patient initially was started on broad-spectrum antibiotics with vancomycin and Zosyn but for renal protection, since GFR was less than 10 and to have a more broad- spectrum coverage we added meropenem and discontinued Zosyn. To the ICU for further assessment and management. Patient seen and examined at bedside. Patient is currently sedated on midazolam, fentanyl connected to mechanical ventilator on the following parameters: VT 500 RR 24, FiO2 40%, peep six, saturating 95%. Yesterday around 5:00 p.m. patient had atrial flutter alternating with atrial fibrillation with RVR associated with hypotension on vasopressors reason why patient was synchronized cardioverted. The patient was at that time on amiodarone drip at 0.5 which was increased to 1.0. At 2:00 a.m. patient had a similar episode where she had to be cardioverted once again, came back to sinus rhythm for 1 minute and eventually got back to AFib. This morning, patient was started by Cardiology on lidocaine drip due to AFib with RVR. Patient is currently on amiodarone 1 mg/min, lidocaine drip, patient received two doses of digoxin but digoxin levels were high so 3rd dose was held. Patient went back to AFib with RVR having hypotension reason why was synchronized cardioverted once again. Despite multiple synchronized cardioversions, amiodarone drip, lidocaine drip, digoxin patient persisted in AFib with RVR at 150s. Anesthesiology stated that patient is too unstable to undergo right-sided thoracotomy so surgical procedure was held. One single dose of metoprolol tartrate 2.5 mg IV push was given and patient went to AFib on rate control. Family was aware of the situation and the critical status of the patient but still wants the patient to be full code. ROS unable to obtain due to patient's critical status intubated. Objective vital signs Vital Sign Date Time Temp Pulse Resp B/P (MAP) Pulse Ox O2 Delivery O2 Flow Rate FiO2 04/04/24 16:01 99/50 04/04/24 16:00 76 04/04/24 16:00 40 04/04/24 14:46 24 94 Mechanical Ventilator+ 04/04/24 14:15 100.2 212.4 Total Intake and Output 04/03/24 04/03/24 04/04/24 15:00 23:00 07:00 Intake Total 1483.635 ml 1220.404 ml 591.692 ml Output Total 2075 ml 1900 ml Balance 1483.635 ml -854.596 ml -1308.308 ml medications Current Medications Medications Dose Ordered Sig/Destini Route Start Time Stop Time Status Last Admin Dose Admin Heparin Sodium/ Dextrose 250 ml @ 18 mls/hr [id number] IV 03/31/24 23:45 UNV Midazolam HCl 50 ml @ 1 mls/hr Q24H IV 04/01/24 01:30 04/04/24 16:01 15 MLS/HR Vasopressin 20 units/Sodium Chloride 100 ml @ 9 mls/hr Q11H7M IV 04/01/24 01:30 04/03/24 18:56 9 MLS/HR Propofol 100 ml @ 4.5 mls/hr [id number] IV 04/01/24 02:30 04/02/24 15:01 4.5 MLS/HR Ondansetron HCl 4 mg Q4HP PRN IV 04/01/24 05:00 Acetaminophen 650 mg Q6HP PRN PO 04/01/24 05:00 04/01/24 18:29 650 MG Nitroglycerin 0.4 mg Q5MINP PRN SL 04/01/24 05:00 Morphine Sulfate 2 mg Q30M PRN IV 04/01/24 05:00 Albuterol 2.5 mg Q6HR NEB 04/01/24 06:00 04/03/24 12:06 2.5 MG Amiodarone HCl 250 ml @ 16.667 mls/ hr Q15H IV 04/01/24 14:00 04/04/24 16:02 33.333 MLS/HR Phenylephrine HCl 80 mg/Sodium Chloride 250 ml @ 7.5 mls/hr Q24H IV 04/01/24 10:45 04/04/24 12:58 33.75 MLS/HR Meropenem 50 ml @ 17 mls/hr Q12HR IV 04/02/24 10:00 04/04/24 09:37 17 MLS/HR Fentanyl Citrate 250 ml @ 2.5 mls/hr Q24H IV 04/02/24 11:15 Albumin Human 100 ml @ 100 mls/hr KIRAN PRN IV 04/03/24 07:00 Vancomycin HCl 0 ml @ 0 mls/hr UD IV 04/03/24 12:30 Furosemide 100 mg/ Sodium Chloride 110 ml @ 16.5 mls/hr Q6H40M IV 04/03/24 15:30 04/04/24 12:55 16.5 MLS/HR Norepinephrine Bitartrate 32 mg/ Sodium Chloride 250 ml @ 0.469 mls/ hr Q24H IV 04/04/24 06:30 Lidocaine HCl 500 ml @ 15 mls/hr Q24H IV 04/04/24 12:45 04/04/24 13:06 15 MLS/HR Examination Physical Examination General: Patient sedated on mechanical ventilator: VT 500, RR 24, FiO2 40%, PEEP 6, sat 97% HEENT: Normocephalic, atraumatic, moist mucous membranes Respiratory/pulmonary: There are no breath sounds auscultable on the right lung base. On the left lung there is decrease of breath sounds and completely diminished at the base of the lung. Cardiovascular: Patient is on atrial fibrillation with rate controlled at this time but was previously on AFib with RVR for most of the day. Abdomen: Abdomen slightly distended, there is no pain to palpation in any of the abdominal quadrants, no palpable masses. Extremities: There is minimal swelling in the lower extremities bilaterally. Peripheral Pulses: 3+ Radial (R). 3+ Radial (L). 3+ Dorsalis pedis (R). 3+ Dorsalis pedis(L) Skin: There is dry skin in bilateral lower extremities with scales and excoriations. Neurological: Sedated, RASS -3 laboratory and microbiology Laboratory Tests 04/04/24 14:25 04/04/24 03:30 Test 04/04/24 14:25 Range/Units Serum Glucose 125 H 74-106 mg/dL Microbiology Date/Time Source Procedure Growth Status 04/01/24 15:30 Pleural Fluid Gram Stain - Final Complete 04/01/24 15:30 Aerobic Culture - Final Escherichia coli Complete 04/01/24 11:19 Nose MRSA Screen - Final Complete 04/01/24 07:18 Blood Blood Culture - Preliminary Resulted 03/31/24 22:55 Sputum Endotracheal Wash Gram Stain - Final Complete 03/31/24 22:55 Sputum Endotracheal Wash Respiratory Culture - Final Complete Problem List/Assessment/Plan Problem List/Assessment/Plan Assessment/Plan Neurology Sedation -currently on midazolam and fentanyl Vasopressors -currently on Levophed, vasopressin, phenylephrine Respiratory Acute hypoxic respirtory failure likel due to right-sided pleural effusion and consolidation on right middle and lower lobes -initial chest x-ray showed severe right lower lobe opacities consistent with either consolidation or moderate to severe pleural effusion -CT of the chest and abdomen showed moderate partial loculated right pleural effusion and consolidation on right middle/lower lobes. Mild cardiomegaly and interstitial pulmonary edema. It also showed right hydronephrosis with 1.9 cm calculus into the right UPJ. There is also a 2.6 cm staghorn appearing calculus causing mid to lower pole left hydronephrosis. -the patient was initially started on Zosyn, vancomycin and cefepime. We discontinued Zosyn and cefepime. -we will switch linezolid back to vancomycin due to low platelet. -start renal dose of IV meropenem -Continue IV vanco and meropenem -consulted interventional radiologist which performed right-sided thoracentesis removing 250 mL of fluid which were sent to analysis. -currently on mechanical ventilator on the following parameters: VT 500, RR 24, FiO2 50%, PEEP 10, saturating 92%. -surgery was consulted for possible right-sided thoracotomy but Anesthesiology did not clear the patient for surgery at this time due to severe hemodynamically instability Sepsis in the setting of loculated right-sided pleural effusion and pneumonia -ordered blood cultures, sputum cultures and urine culture -currently on IV meropenem and linezolid -Will monitor plateletes closely -S/P right-sided thoracentesis removing 250 mL of fluids. -chest x-ray this morning showed still right-sided opacities and left opacities in the base of the lung. Cardiology Acute on chronic systolic/diastolic heart failure -BNP came back elevated at 274.69 -initial EKG showed sinus tachycardia with PACs but no ST segment elevation or depression at that time -troponins came back elevated at 1469 and peaked up to 1684 -echocardiogram is showing an LVEF of 55-60% with increased RVSP at 48 mmHg and no pericardial effusion -furosemide drip at 20 mg/hr NSTEMI type II ? -troponins came back elevated at 1469 and peaked up to 1684 -Trend trops Atrial fibrilation with RVR -patient was placed on amiodarone drip 0.5 mg/min -CHADS VASC score HAS BLED score -heparin drip was hold for right-sided chest tube placement and david catheter placement -patient underwent atrial flutter with a heart rate of 180 to 200, cardiology decided to perform synchronized cardioversion and continue amiodarone drip. -S/P multiple synchronized cardioversions x4 -patient was started on lidocaine drip -patient was given two doses of digoxin but due to high levels of digoxin blood 3rd dose was held -metoprolol tartrate 2.5 mg IV push was given once achieving AFib on rate control partially at this time. Nephrology Bilateral hydronephrosis -CT scan of the chest and abdomen showed right hydronephrosis with 1.9 cm calculus into the right UPJ, there was also a 2.6 cm staghorn appearing calculus causing mid to lower pole left hydronephrosis. -nephrology on board -consulted Urology for bilateral nephrostomy tube placement -David catheter placed on L IJ on 04/08/24 CHRISTOPH likely postobstructive nephropathy -most likely secondary to bilateral renal calculi -creatinine was 4.48 and BUN 109 -nephrology and urology on board -consulted Urology for bilateral nephrostomy tube placement, if therapy does not improve patient might need hemodialysis as last resource Hyperkalemia -potassium was 5.3 -monitor closely Lines: IJ right triple-lumen placed on 03/31/2024 Peripheral in right wrist placed on 03/31/2024 Peripheral in left forearm placed on 03/31/2024 David catheter placed in the left IJ placed on 04/02/2024 Goals of care discussed with the daughter and brother at bedside for >31min Critical time spent > 86min Plan discussed with Dr. Márquez Plan discussed with: Daughter, Son My Orders My Orders Orders - KEVON BLANTON Procedure Category Date Status Time Abg W/ Co-Ox RT 04/04/24 Logged 04:00 Chest Xray 1 View XY 04/04/24 Resulted 04:00 Dietary Evaluation Review Comments: 1) If GI is accessible consider Nepro 1.8 @ 30 ml/hr goal rate as tolerated with current rate of propofol on board. 2) If pt remains NPO >7 days consider TPN to meet at least 75% of estimated needs 3) If pt continues to receive HD, advance pt diet when medically feasible to a Renal Standard diet modified per [employer] recommendations 4) If HD is discontinued and GFR is within normal range, advance pt diet to a Regular diet, modified per [employer] recommendations 5)If HD is discontinued and GFR lies within STG 1-4, advance pt diet to a Renal Specific K2,lowphos,HECTOR,2gmNa,80gPro diet 6) If HD is discontinued and if GFR returns to normal levels then ALEXANDRA 1 pkt BID with meals may be considered to aid with wound healing 7) Continue current plan of care Expected Outcomes/Goals: 1) Pt to receive nutrition support within 7 days of NPO status 2) Pt labs to improve 3) Pt diet to advance 4) F/U in 2-3 days Date of Service: Apr 04, 2024 Billing Provider: ANGEL MÁRQUEZ MD Common Visit Codes: [id number] CARE 30-74 MIN KEVON BLANTON RESIDENT Apr 04, 2024 16:39 ANGEL MÁRQUEZ MD Apr 07, 2024 10:36
[2024-04-04] MEDS: EPOETIN ALFA-EPBX 10,000 UNIT/1ML VIAL SC ONE (21:33)
[2024-04-04 23:35] LABS: Eosinophils # (auto) 0 10 ^3/uL (0-0.8); Eosinophils % (auto) 0.2 % (0.0-7.0); Hematocrit 25.4 % (36.0-46.0); Hemoglobin 8.1 g/dL (12.2-16.2); Monocytes % (auto) 1.3 % (0.0-12.0); Neutrophils # (auto) 17.2 10 ^3/uL (1.6-8.6)
[2024-04-04 23:37] LABS: Basophils # (auto) 0.1 10 ^3/uL (0-0.2); Basophils % (auto) 0.4 % (0.0-2.0); Lymphocytes # (auto) 1.8 10 ^3/uL (0.4-5.4); Lymphocytes % (auto) 9.4 % (10.0-50.0); Mean Corpuscular Hemoglobin 24.2 pg (28.0-32.0); Mean Corpuscular Hgb Conc. 31.8 g/dL (32.0-36.0); Mean Corpuscular Volume 75.9 fL (80.0-100.0); Monocytes # (auto) 0.2 10 ^3/uL (0-1.3); Neutrophils % (auto) 88.7 % (37.0-80.0); Nucleated Red Blood Cells % 0.8 %; Platelet Count (auto) 169 10^3/uL (140-450); Red Blood Cells 3.35 10^6/uL (4.0-5.20); Red Cell Distribution Width 17.9 % (11.8-14.3); White Blood Cell 19.4 10^3/uL (4.4-10.8)
[2024-04-04 23:59] LABS: Albumin 3.4 g/dL (3.2-4.8); Alkaline Phosphatase 97 U/L (46-116); Anion Gap 14 (5-15); Aspartate Aminotransferase 41 U/L (13-40); BUN/Creatinine Ratio 23.8 (10.0-20.0); Bilirubin, Total 0.8 mg/dL (0.2-1.0); Calcium 7.3 mg/dL (8.7-10.4); Carbon Dioxide 30 mmol/L (20-31); Chloride 97 mmol/L (98-107); Glucose 132 mg/dL (74-106); Potassium 4.5 mmol/L (3.5-5.1); Sodium 141 mmol/L (136-145); Total Protein 6.3 g/dL (5.7-8.2)
[2024-04-05] VITALS (109 sets, daily range): BP systolic 69–195; BP diastolic 38–110; PULSE 52–152; RESP 20–27; TEMP 96.3–100.8; O2SAT 88–100
[2024-04-05 00:44] LABS: Blood Urea Nitrogen 87 mg/dL (9-23)
[2024-04-05 01:27] LABS: Alanine Aminotransferase 12 U/L (7-40)
[2024-04-05] MEDS: METOPROLOL TARTRATE 1MG/1ML-5ML VIAL IV ONE ×2 (02:15)
[2024-04-05 03:56] LABS: Basophils # (auto) 0 10 ^3/uL (0-0.2); Basophils % (auto) 0.1 % (0.0-2.0); Eosinophils # (auto) 0.1 10 ^3/uL (0-0.8); Monocytes # (auto) 0.4 10 ^3/uL (0-1.3); Nucleated Red Blood Cells % 0.6 %; White Blood Cell 22.2 10^3/uL (4.4-10.8)
[2024-04-05 03:58] LABS: Eosinophils % (auto) 0.3 % (0.0-7.0); Hematocrit 26.2 % (36.0-46.0); Hemoglobin 8.4 g/dL (12.2-16.2); Lymphocytes # (auto) 1.8 10 ^3/uL (0.4-5.4); Mean Corpuscular Hgb Conc. 32.2 g/dL (32.0-36.0); Mean Corpuscular Volume 77.6 fL (80.0-100.0); Monocytes % (auto) 1.9 % (0.0-12.0); Neutrophils # (auto) 19.9 10 ^3/uL (1.6-8.6); Neutrophils % (auto) 89.7 % (37.0-80.0); Platelet Count (auto) 182 10^3/uL (140-450); Red Blood Cells 3.38 10^6/uL (4.0-5.20); Red Cell Distribution Width 17.3 % (11.8-14.3)
[2024-04-05 04:00] LABS: Alanine Aminotransferase 14 U/L (7-40); Albumin 3.6 g/dL (3.2-4.8); Alkaline Phosphatase 105 U/L (46-116); Anion Gap 13 (5-15); Aspartate Aminotransferase 46 U/L (13-40); BUN/Creatinine Ratio 23.6 (10.0-20.0); Calcium 7.4 mg/dL (8.7-10.4); Carbon Dioxide 30 mmol/L (20-31); Chloride 96 mmol/L (98-107); Glucose 175 mg/dL (74-106); Potassium 4.7 mmol/L (3.5-5.1); Sodium 139 mmol/L (136-145)
[2024-04-05 04:01] LABS: Bilirubin, Total 0.8 mg/dL (0.2-1.0); Total Protein 6.7 g/dL (5.7-8.2)
[2024-04-05 04:02] LABS: INR 1.05 (0.9-1.15); Partial Thromboplastin Time < 20.0 SEC (24.5-34.5); Prothrombin Time 11.1 sec (9.3-11.8)
[2024-04-05 04:11] LABS: Blood Urea Nitrogen 86 mg/dL (9-23); Lactic Acid w/Reflex 2.7 mmol/L (0.4-2.0)
--- NOTE | 2024-04-05 05:07 | DVHPN2 ---
Progress Note - Dictate Date Seen: Apr 05, 2024 Has the PT tested + for MRSA If YES, has PT been informed?: No Medical Necessity Reason Pt with a Central, PICC or Fol: Yes The following are medically ne: Central Line, Martines Catheter Subjective Patient seen and examined at the bedside within the ICU. Overnight events reveal patient experienced an episode of atrial fibrillation with RVR which she was subsequently cardioverted utilizing 120 joules with successful conversion to sinus rhythm. At present, remains on Amiodarone and Lidocaine infusion for rate and rhythm control. Remains on pressor support utilizing Logan-synephrine and Vasopressin. Levophed now discontinued as it may exacerbate tachy-arrhythmias. Full AC remains advised for CVA prophylaxis in the setting of PAF. vital signs Vital Sign Date Time Temp Pulse Resp B/P (MAP) Pulse Ox O2 Delivery O2 Flow Rate FiO2 04/05/24 04:55 68 24 122/70 (87) 96 40 04/05/24 04:30 100.2 212.4 04/05/24 04:00 Mechanical Ventilator+ Total Intake and Output 04/04/24 04/04/24 04/05/24 15:00 23:00 07:00 Intake Total 1010.577 ml 1024.550 ml 501.467 ml Output Total 2900 ml Balance 1010.577 ml -1875.450 ml 501.467 ml medications Current Medications Medications Dose Ordered Sig/Destini Route Start Time Stop Time Status Last Admin Dose Admin Heparin Sodium/ Dextrose 250 ml @ 18 mls/hr [id number] IV 03/31/24 23:45 UNV Midazolam HCl 50 ml @ 1 mls/hr Q24H IV 04/01/24 01:30 04/05/24 03:09 15 MLS/HR Vasopressin 20 units/Sodium Chloride 100 ml @ 9 mls/hr Q11H7M IV 04/01/24 01:30 04/05/24 02:50 9 MLS/HR Propofol 100 ml @ 4.5 mls/hr [id number] IV 04/01/24 02:30 04/02/24 15:01 4.5 MLS/HR Ondansetron HCl 4 mg Q4HP PRN IV 04/01/24 05:00 Acetaminophen 650 mg Q6HP PRN PO 04/01/24 05:00 04/05/24 02:09 650 MG Nitroglycerin 0.4 mg Q5MINP PRN SL 04/01/24 05:00 Morphine Sulfate 2 mg Q30M PRN IV 04/01/24 05:00 Albuterol 2.5 mg Q6HR NEB 04/01/24 06:00 04/05/24 00:48 2.5 MG Amiodarone HCl 250 ml @ 16.667 mls/ hr Q15H IV 04/01/24 14:00 04/04/24 23:44 33.333 MLS/HR Phenylephrine HCl 80 mg/Sodium Chloride 250 ml @ 7.5 mls/hr Q24H IV 04/01/24 10:45 04/04/24 12:58 33.75 MLS/HR Meropenem 50 ml @ 17 mls/hr Q12HR IV 04/02/24 10:00 04/04/24 21:32 17 MLS/HR Fentanyl Citrate 250 ml @ 2.5 mls/hr Q24H IV 04/02/24 11:15 04/04/24 23:08 10 MLS/HR Albumin Human 100 ml @ 100 mls/hr KIRAN PRN IV 04/03/24 07:00 Vancomycin HCl 0 ml @ 0 mls/hr UD IV 04/03/24 12:30 Furosemide 100 mg/ Sodium Chloride 110 ml @ 16.5 mls/hr Q6H40M IV 04/03/24 15:30 04/04/24 23:43 16.5 MLS/HR Norepinephrine Bitartrate 32 mg/ Sodium Chloride 250 ml @ 0.469 mls/ hr Q24H IV 04/04/24 06:30 Lidocaine HCl 500 ml @ 15 mls/hr Q24H IV 04/04/24 12:45 04/05/24 03:10 60 MLS/HR laboratory and microbiology Laboratory Tests 04/05/24 03:05 Test 04/05/24 03:05 Range/Units Serum Glucose 175 H 74-106 mg/dL Assessment/Plan Assessment/Plan Patient is a 68-year-old female who was transferred from [facility]. She originally presented to [facility] for shortness of breath ongoing for few days. She is intubated and is being managed in ICU. Information was obtained by reviewing the chart and communicating with staff. Reportedly, she presented with respiratory failure to [facility] (oxygen saturation was 88%) and over there was found to have white blood cell count of 26.6, hemoglobin of 11.1, creatinine of 5.6, potassium of 5.6 and troponin of 1.01. She was given 365 mg of aspirin in [facility]. She did have an episode of atrial fibrillation with RVR with questionable ST changes and was transferred to our facility for further care. She was also found to have right pleural effusion in [facility] and was diagnosed with non-STEMI. Intubated, on vent support. On pressure support. Obese. Mucosa is pale. Scattered rhonchi in the lungs is heard. Cardiac: Regular, no thrill/gallop. Abdomen is soft with increased bowel sounds. There is no gross mass. Extremities reveal 1+ edema bilaterally. Available past medical history includes obesity and questionable history of psoriasis. WBC: 25.3 - 23.7 - 20.2 - 20.5 - 17.6 - 18.4 - 19.2 - 22.2 Hemoglobin: 10.8 - 9.1 - 8.5 - 8.4 - 8.8 - 8.6 - 8.9 - 8.4 D-dimer: 3.62 Creatinine: 5.67 - 5.78 - 5.41 - 4.92 - 4.55 - 4.68 - 4.71 - 4.64 - 4.48 - 3.65 Potassium: 6.0 - 6.3 - 6.1 - 6.0 - 5.3 - 5.0 - 4.9 - 4.8 - 5.1 - 5.4 - 4.9 - 5.3 - 4.7 Lactic acid: 3.3 - 3.4 - 2.3 - 2.5 TSH: 1.71 BNP: 274.69 Troponin (high sensitive): 1469 - 1515 - 1684 Blood culture: positive Stool OB: positive Chest x-ray revealed: IMPRESSION: 1. Moderate right pleural effusion. 2. Cardiomegaly with mild pulmonary vascular congestion bilaterally. Repeat chest x-ray revealed: IMPRESSION: 1. Endotracheal tube and gastric tubes in place as described. 2. Right IJ central venous catheter projects over the lower SVC. 3. Mild cardiomegaly and prominence of the pulmonary vasculature. 4. Moderate to large right pleural effusion. Repeat chest x-ray revealed: IMPRESSION: Similar lung aeration with large right pleural effusion. No pneumothorax seen. Stable lines and tubes. Repeat chest x-ray revealed: IMPRESSION: Similar lung aeration with large right pleural effusion. No pneumothorax seen. Stable lines and tubes. Repeat chest xry revealed: Lines and tubes: ET in the mid thoracic trachea. NG crosses midline. Right CVC is stable. Left HD catheter projects over the mediastinum. Cardiomediastinal silhouette: Enlarged Pulmonary vasculature: prominent Lung expansion: low Lung airspace: patchy bilateral airspace opacity. Lung interstitium: normal Pleura: Similar large right effusion. Pneumothorax: no Bones: Unremarkable Other: no IMPRESSION: Lines and tubes, as above. Similar lung aeration bilaterally with a right pleural effusion and patchy airspace opacities. Repeat chest xry revealed: IMPRESSION: 1. Stable position of the support lines and tubes. 2. Interstitial and alveolar opacities. Repeat chest xry revealed: CT scan of the chest/abdomen and pelvis revealed: IMPRESSION: 1. Moderate partially loculated right pleural effusion and consolidations in the right middle and lower lobes which could be pneumonia and/or atelectasis. 2. Mild cardiomegaly, mild interstitial pulmonary edema, and body wall edema. 3. There is a 1.9 cm calculus in the right UPJ with mild right hydronephrosis 4. There is a 2.6 cm somewhat staghorn appearing calculus in the left renal pelvis and UPJ causing mild predominantly mid to lower pole left hydronephrosis. Mild soft tissue stranding about the left renal pelvis which could be due to obstruction or superimposed infection. Correlate with urinalysis. 5. Partial duplication of the left renal collecting system without hydronephrosis in the upper pole. 6. Moderate right perinephric, right retroperitoneal, and bilateral extraperitoneal pelvis low-density fluid and very mild left retroperitoneal low-density fluid. This could be fluid related to bilateral renal obstructions and forniceal ruptures versus evolved retroperitoneal hematoma. This is suboptimally evaluated without intravenous contrast. 7. Fluid-filled small and large bowel loops which may be physiologic or related to enterocolitis and could be manifesting as loose stools and/or diarrhea. 8. Prominent endometrium measuring at least 2.8 cm, suboptimally evaluated by CT. Recommend characterization with nonemergent pelvic ultrasound if clinically indicated. 9. Mild hepatosplenomegaly. 10. Moderate three-vessel calcified coronary artery disease and mild aortic valve calcification. 11. Right IJ central venous catheter in place terminating in the low SVC. 12. Small soft tissue stranding in the right supraclavicular neck which could be blood products. 13. Endotracheal tube terminates above the mili. CT of the head revealed: IMPRESSION: 1. No acute intracranial abnormality. 2. Generalized cerebral volume loss and mild chronic microvascular ischemic change. 3. Partially imaged endotracheal tube. Chest ultrasound revealed: Findings/Impression: There is a trace bilateral pleural effusion. Thoracentesis: FINDINGS: Moderate size, complex and septated right pleural effusion. Aspirated fluid is thick and green in consistency. IMPRESSION: Right thoracentesis with 250 mL removed for laboratory analysis. EKG in [facility] revealed sinus tachycardia, poor R-wave progression old inferior wall ME. later EKG revealed atrial fibrillation with RVR. Telemetry reveals sinus rhythm, occasions of A-fib with RVR, SVT Echocardiogram revealed: Technically limited study secondary to poor acoustic windows. Left ventricle: Left ventricle was normal-sized. Mild concentric left ventricular hypertrophy was seen. LVEF was 55-60%. No gross wall motion abnormality was observed, but its presence can not be ruled out on the basis of this study. Right ventricle is mildly dilated with normal systolic function. Left atrium was mildly dilated. Right atrium was normal-sized. Aortic valve was trileaflet. There was no aortic insufficiency. There was aortic sclerosis with no stenosis. There was trivial mitral/tricuspid regurgitation. Pulmonary valve was not well visualized. Right ventricular systolic pressure was assessed around 48 mm Hg. There was no pericardial effusion. Patient is a 68-year-old morbidly obese patient who presented with respiratory failure to the hospital. Presentation is in favor of sepsis/septic shock. Multiorgan failure is observed. She is intubated and on vent support. She is on multiple pressor support. Life findings are in favor of acute renal failure. She also is known to have nephrolithiasis with history of staghorn calculi. Cardiac-ceballos, the patient did have episode of atrial fibrillation with RVR. She is found to have increased troponin. Presentation questions non-STEMI and possibly type 2 ischemia. Recognizing the presentation, ischemic workup should be postponed after clinical stability. Is being followed by Nephrology. Had episodes of tachyarrhythmia. Loaded with Digoxin. Septic shock Multiorgan failure Acute respiratory failure on vent support Acute renal failure Nephrolithiasis Staghorn calculi Hydronephrosis Abnormal troponin, non-STEMI Atrial fibrillation with RVR Paroxysmal AFib Acute heart failure, diastolic Hepatosplenomegaly Pleural effusion Status post thoracentesis Morbid obesity s/p Cardioversion for A-fib with RVR Cardiac suggestion for management: Manage in ICU Follow-up electrolytes and kidney function tests and correct abnormalities Pressure support to keep mean arterial pressure above 65 Amiodarone drip Heparin drip Daily aspirin (81 mg daily) Loaded with Digoxin Sepsis workup and management as per primary team Cardiac ceballos, patient is elevated risk patient for urgent Thoracotomy procedure. You can consider proceeding with procedure under appropriate intra and post operative hemodynamic monitoring. If you choose to proceed with procedure, try to avoid hypotension. Evaluation and management of respiratory failure as per primary team/Pulmonary Evaluation and management of nephrolithiasis/hydronephrosis as per primary/Urology Evaluation and management of acute renal failure as per Nephrology Ischemic workup, after clinical stability Further evaluation and management as per above and clinical course. A total of 75 minutes was spent reviewing the patient record, examining the patient, making a diagnostic and therapeutic plan, discussing this plan with medical personnel, following up on diagnostic studies and following the patient for clinical stability excluding any and all procedures. At least 50% of this time was spent in direct, [id number] contact. Thank you for allowing me to participate in this patient's care. Further recommendations will depend on patient's clinical course. Please do not hesitate to contact me if you have any questions or concerns. This medical document was created using electronic medical record system with [employer] computerized dictation system. Although this document has been carefully reviewed, there may still be some phonetic and typographical errors. These areas are purely typographical due to the imperfection of the software programs, and do not reflect any compromise in the patient's medical care. Dietary Evaluation Review Comments: 1) If GI is accessible consider Nepro 1.8 @ 30 ml/hr goal rate as tolerated with current rate of propofol on board. 2) If pt remains NPO >7 days consider TPN to meet at least 75% of estimated needs 3) If pt continues to receive HD, advance pt diet when medically feasible to a Renal Standard diet modified per [employer] CH[employer]ILLER recommendations 4) If HD is discontinued and GFR is within normal range, advance pt diet to a Regular diet, modified per [employer]OWER CH[employer]ER recommendations 5)If HD is discontinued and GFR lies within STG 1-4, advance pt diet to a Renal Specific K2,lowphos,HECTOR,2gmNa,80gPro diet 6) If HD is discontinued and if GFR returns to normal levels then ALEXANDRA 1 pkt BID with meals may be considered to aid with wound healing 7) Continue current plan of care Expected Outcomes/Goals: 1) Pt to receive nutrition support within 7 days of NPO status 2) Pt labs to improve 3) Pt diet to advance 4) F/U in 2-3 days Plan discussed with: Other (Primary RN ) DOMINIQUE LEEP Apr 05, 2024 05:07
--- NOTE | 2024-04-05 06:01 | DVH ---
CHEST RADIOGRAPH Indication:reevaluate right lung amaya Technique: Single frontal view of the chest was obtained COMPARISON: XY CHEST XRAY 1 VIEW on DOS: 04/04/24, XY CHEST XRAY 1 VIEW on DOS: 04/03/24, XY CHEST XRAY 1 VIEW on DOS: 04/02/24 FINDINGS: Lines and Tubes: Endotracheal tube, enteric catheter and right central venous catheter in satisfactor y position. Lungs: Pulmonary vascular congestion. Pleura: Unchanged small to moderate right pleural effusion. No pneumothorax. Cardiomediastinal contours: Unremarkable Bones: Unremarkable IMPRESSION: Lines and tubes in satisfactory position. No significant interval change.
[2024-04-05 07:08] LABS: Base Excess 2.2 mmol/L (-2.0-3.0)
[2024-04-05] MEDS: VANCOMYCIN 1GM/200ML PREMIX 200 ML IV SCH (11:00)
--- NOTE | 2024-04-05 11:36 | DVHPN2 ---
Progress Note Date Seen: Apr 05, 2024 Has the PT tested + for MRSA If YES, has PT been informed?: No Medical Necessity Reason Pt with a Central, PICC or Fol: Yes The following are medically ne: Central Line, Martines Catheter Subjective Review of Systems: RESPIRATORY:Abnormal Other Systems: Patient seen and examined by myself today Objective vital signs Vital Sign Date Time Temp Pulse Resp B/P (MAP) Pulse Ox O2 Delivery O2 Flow Rate FiO2 04/05/24 10:30 98.2 67 24 123/67 (85) 96 208.8 04/05/24 10:13 60 04/05/24 06:00 Mechanical Ventilator+ Total Intake and Output 04/04/24 04/04/24 04/05/24 15:00 23:00 07:00 Intake Total 1010.577 ml 1024.550 ml 1157.612 ml Output Total 2900 ml 2750 ml Balance 1010.577 ml -1875.450 ml -1592.388 ml medications Current Medications Medications Dose Ordered Sig/Destini Route Start Time Stop Time Status Last Admin Dose Admin Heparin Sodium/ Dextrose 250 ml @ 18 mls/hr [id number] IV 03/31/24 23:45 UNV Midazolam HCl 50 ml @ 1 mls/hr Q24H IV 04/01/24 01:30 04/05/24 09:44 15 MLS/HR Vasopressin 20 units/Sodium Chloride 100 ml @ 9 mls/hr Q11H7M IV 04/01/24 01:30 04/05/24 02:50 9 MLS/HR Propofol 100 ml @ 4.5 mls/hr [id number] IV 04/01/24 02:30 04/02/24 15:01 4.5 MLS/HR Ondansetron HCl 4 mg Q4HP PRN IV 04/01/24 05:00 Acetaminophen 650 mg Q6HP PRN PO 04/01/24 05:00 04/05/24 02:09 650 MG Nitroglycerin 0.4 mg Q5MINP PRN SL 04/01/24 05:00 Morphine Sulfate 2 mg Q30M PRN IV 04/01/24 05:00 Albuterol 2.5 mg Q6HR NEB 04/01/24 06:00 04/05/24 06:51 2.5 MG Amiodarone HCl 250 ml @ 16.667 mls/ hr Q15H IV 04/01/24 14:00 04/04/24 23:44 33.333 MLS/HR Phenylephrine HCl 80 mg/Sodium Chloride 250 ml @ 7.5 mls/hr Q24H IV 04/01/24 10:45 04/04/24 12:58 33.75 MLS/HR Meropenem 50 ml @ 17 mls/hr Q12HR IV 04/02/24 10:00 04/05/24 09:45 17 MLS/HR Fentanyl Citrate 250 ml @ 2.5 mls/hr Q24H IV 04/02/24 11:15 04/04/24 23:08 10 MLS/HR Albumin Human 100 ml @ 100 mls/hr KIRAN PRN IV 04/03/24 07:00 Vancomycin HCl 0 ml @ 0 mls/hr UD IV 04/03/24 12:30 Furosemide 100 mg/ Sodium Chloride 110 ml @ 16.5 mls/hr Q6H40M IV 04/03/24 15:30 04/05/24 06:31 16.5 MLS/HR Norepinephrine Bitartrate 32 mg/ Sodium Chloride 250 ml @ 0.469 mls/ hr Q24H IV 04/04/24 06:30 Lidocaine HCl 500 ml @ 15 mls/hr Q24H IV 04/04/24 12:45 04/05/24 03:10 60 MLS/HR Vancomycin HCl 200 ml @ 200 mls/hr Q1H IV 04/05/24 10:00 04/05/24 11:59 Examination: LUNGS:Normal, CVS:Normal, MSK:Abnormal laboratory and microbiology Laboratory Tests 04/05/24 03:05 Test 04/05/24 03:05 Range/Units Serum Glucose 175 H 74-106 mg/dL Microbiology Date/Time Source Procedure Growth Status 04/01/24 15:30 Pleural Fluid Gram Stain - Final Complete 04/01/24 15:30 Aerobic Culture - Final Escherichia coli Complete 04/01/24 11:19 Nose MRSA Screen - Final Complete 04/01/24 07:18 Blood Blood Culture - Preliminary Resulted 03/31/24 22:55 Sputum Endotracheal Wash Gram Stain - Final Complete 03/31/24 22:55 Sputum Endotracheal Wash Respiratory Culture - Final Complete Problem List/Assessment/Plan Problem List/Assessment/Plan Acute kidney injury due to ATN/hemodynamic from shock, requiring intermittent hemodialysis Acute respiratory failure, intubated on ventilator NSTEMI septic shock empyema metabolic acidosis resolved b/l renal stones w/ hydronephrosis morbid obesity hyperkalemia afib RVR Recommendations Hemodialysis tomorrow Epogen [id number] IV post hemodialysis DC Lasix drip IV pressors for blood pressure support Strict I&Os IV antibiotics Urology consult We will continue to follow Plan discussed with: Other (Nurse) Dietary Evaluation Review Comments: 1) If GI is accessible consider Nepro 1.8 @ 30 ml/hr goal rate as tolerated with current rate of propofol on board. 2) If pt remains NPO >7 days consider TPN to meet at least 75% of estimated needs 3) If pt continues to receive HD, advance pt diet when medically feasible to a Renal Standard diet modified per [employer] recommendations 4) If HD is discontinued and GFR is within normal range, advance pt diet to a Regular diet, modified per [employer] recommendations 5)If HD is discontinued and GFR lies within STG 1-4, advance pt diet to a Renal Specific K2,lowphos,HECTOR,2gmNa,80gPro diet 6) If HD is discontinued and if GFR returns to normal levels then ALEXANDRA 1 pkt BID with meals may be considered to aid with wound healing 7) Continue current plan of care Expected Outcomes/Goals: 1) Pt to receive nutrition support within 7 days of NPO status 2) Pt labs to improve 3) Pt diet to advance 4) F/U in 2-3 days SWETA CHAND MD Apr 05, 2024 11:36
--- NOTE | 2024-04-05 14:29 | DVHPN2 ---
Subjective Seen and examined at bedside, patient had to be shocked multiple times. Overall very poor prognosis. Patient is on 60% Fio2, PEEP 6. Remains on Amio, Vaso, Lido, Logan drips. I spoke with the patients daughter Aileen updated on patients condition. 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 Medications Current Medications Medications Dose Ordered Sig/Destini Route Start Time Stop Time Status Last Admin Dose Admin Heparin Sodium/ Dextrose 250 ml @ 18 mls/hr [id number] IV 03/31/24 23:45 UNV Midazolam HCl 50 ml @ 1 mls/hr Q24H IV 04/01/24 01:30 04/05/24 13:08 13 MLS/HR Vasopressin 20 units/Sodium Chloride 100 ml @ 9 mls/hr Q11H7M IV 04/01/24 01:30 04/05/24 02:50 9 MLS/HR Propofol 100 ml @ 4.5 mls/hr [id number] IV 04/01/24 02:30 04/02/24 15:01 4.5 MLS/HR Ondansetron HCl 4 mg Q4HP PRN IV 04/01/24 05:00 Acetaminophen 650 mg Q6HP PRN PO 04/01/24 05:00 04/05/24 02:09 650 MG Nitroglycerin 0.4 mg Q5MINP PRN SL 04/01/24 05:00 Morphine Sulfate 2 mg Q30M PRN IV 04/01/24 05:00 Albuterol 2.5 mg Q6HR NEB 04/01/24 06:00 04/05/24 11:54 2.5 MG Amiodarone HCl 250 ml @ 16.667 mls/ hr Q15H IV 04/01/24 14:00 04/05/24 14:11 33.333 MLS/HR Phenylephrine HCl 80 mg/Sodium Chloride 250 ml @ 7.5 mls/hr Q24H IV 04/01/24 10:45 04/04/24 12:58 33.75 MLS/HR Meropenem 50 ml @ 17 mls/hr Q12HR IV 04/02/24 10:00 04/05/24 09:45 17 MLS/HR Fentanyl Citrate 250 ml @ 2.5 mls/hr Q24H IV 04/02/24 11:15 04/04/24 23:08 10 MLS/HR Albumin Human 100 ml @ 100 mls/hr KIRAN PRN IV 04/03/24 07:00 Vancomycin HCl 0 ml @ 0 mls/hr UD IV 04/03/24 12:30 Furosemide 100 mg/ Sodium Chloride 110 ml @ 16.5 mls/hr Q6H40M IV 04/03/24 15:30 04/05/24 13:01 16.5 MLS/HR Norepinephrine Bitartrate 32 mg/ Sodium Chloride 250 ml @ 0.469 mls/ hr Q24H IV 04/04/24 06:30 Lidocaine HCl 500 ml @ 15 mls/hr Q24H IV 04/04/24 12:45 04/05/24 11:57 60 MLS/HR Laboratory Results Laboratory Tests 04/05/24 03:05 Chemistry Test 04/04/24 23:20 04/05/24 03:05 Albumin 3.4 g/dL (3.2-4.8) 3.6 g/dL (3.2-4.8) Calcium Level 7.3 mg/dL (8.7-10.4) L 7.4 mg/dL (8.7-10.4) L Total Protein 6.3 g/dL (5.7-8.2) 6.7 g/dL (5.7-8.2) Magnesium Level 2.0 mg/dL (1.6-2.6) Coagulation Test 04/05/24 03:05 Prothrombin Time 11.1 sec (9.3-11.8) Prothrombin Time INR 1.05 (0.9-1.15) Activated Partial Thromboplast Time < 20.0 SEC (24.5-34.5) L LFT Test 04/04/24 23:20 04/05/24 03:05 Alanine Aminotransferase (ALT) 12 U/L (7-40) 14 U/L (7-40) Alkaline Phosphatase 97 U/L (46-116) 105 U/L (46-116) Aspartate Amino Transferase (AST) 41 U/L (13-40) H 46 U/L (13-40) H Total Bilirubin 0.8 mg/dL (0.2-1.0) 0.8 mg/dL (0.2-1.0) Urinalysis Test 03/31/24 20:42 Urine Color Kerr (Yellow) H Urine Clarity Ex.turbid (Clear) Urine pH 5.5 (5.0-9.0) Urine Specific [place] 1.020 (1.001-1.035) Urine Protein 2+ (Negative) H Urine Ketones Trace (Negative) Urine Blood 3+ /uL (Negative) H Urine Nitrite Negative (Negative) Urine Bilirubin Negative (Negative) Urine Urobilinogen 2 mg/dL (Negative) H Urine Leukocyte Esterase 3+ /uL (Negative) Urine RBC 508 /hpf (0 - 4) Urine WBC 2451 /hpf (0 - 5) Urine WBC Clumps Present /hpf (None Seen) Urine Squamous Epithelial Cells None seen /hpf (<5) Urine Bacteria Mod /hpf (None Seen) H Urine Mucus Few (None Seen) Urine Glucose Normal mg/dL (Normal) Blood Gas Results Test 04/05/24 06:50 Arterial Blood pH 7.473 (7.350-7.450) FiO2 % 60.0 Microbiology Microbiology Date/Time Source Procedure Growth Status 04/04/24 00:00 Voided Urine Urine Culture - Preliminary Resulted 04/01/24 15:30 Pleural Fluid Gram Stain - Final Complete 04/01/24 15:30 Aerobic Culture - Final Escherichia coli Complete 04/01/24 11:19 Nose MRSA Screen - Final Complete 04/01/24 07:18 Blood Blood Culture - Preliminary Resulted 03/31/24 22:55 Sputum Endotracheal Wash Gram Stain - Final Complete 03/31/24 22:55 Sputum Endotracheal Wash Respiratory Culture - Final Complete Assessment/Plan Assessment/Plan Neurology Sedation -currently on midazolam and fentanyl Vasopressors -currently on Levophed, vasopressin, phenylephrine Respiratory Acute hypoxic respirtory failure likel due to right-sided pleural effusion and consolidation on right middle and lower lobes -initial chest x-ray showed severe right lower lobe opacities consistent with either consolidation or moderate to severe pleural effusion -CT of the chest and abdomen showed moderate partial loculated right pleural effusion and consolidation on right middle/lower lobes. Mild cardiomegaly and interstitial pulmonary edema. It also showed right hydronephrosis with 1.9 cm calculus into the right UPJ. There is also a 2.6 cm staghorn appearing calculus causing mid to lower pole left hydronephrosis. -the patient was initially started on Zosyn, vancomycin and cefepime. We discontinued Zosyn and cefepime. -we will switch linezolid back to vancomycin due to low platelet. -start renal dose of IV meropenem -Continue IV vanco and meropenem -consulted interventional radiologist which performed right-sided thoracentesis removing 250 mL of fluid which were sent to analysis. -currently on mechanical ventilator on the following parameters: VT 500, RR 24, FiO2 50%, PEEP 10, saturating 92%. -surgery was consulted for possible right-sided thoracotomy but Anesthesiology did not clear the patient for surgery at this time due to severe hemodynamically instability Sepsis in the setting of loculated right-sided pleural effusion and pneumonia -ordered blood cultures, sputum cultures and urine culture -currently on IV meropenem and linezolid -Will monitor plateletes closely -S/P right-sided thoracentesis removing 250 mL of fluids. -chest x-ray this morning showed still right-sided opacities and left opacities in the base of the lung. Cardiology Acute on chronic systolic/diastolic heart failure -BNP came back elevated at 274.69 -initial EKG showed sinus tachycardia with PACs but no ST segment elevation or depression at that time -troponins came back elevated at 1469 and peaked up to 1684 -echocardiogram is showing an LVEF of 55-60% with increased RVSP at 48 mmHg and no pericardial effusion -furosemide drip at 20 mg/hr NSTEMI type II ? -troponins came back elevated at 1469 and peaked up to 1684 -Trend trops Atrial fibrilation with RVR -patient was placed on amiodarone drip 0.5 mg/min -CHADS VASC score HAS BLED score -heparin drip was hold for right-sided chest tube placement and david catheter placement -patient underwent atrial flutter with a heart rate of 180 to 200, cardiology decided to perform synchronized cardioversion and continue amiodarone drip. -S/P multiple synchronized cardioversions x4 -patient was started on lidocaine drip -patient was given two doses of digoxin but due to high levels of digoxin blood 3rd dose was held -metoprolol tartrate 2.5 mg IV push was given once achieving AFib on rate control partially at this time. Nephrology Bilateral hydronephrosis -CT scan of the chest and abdomen showed right hydronephrosis with 1.9 cm calculus into the right UPJ, there was also a 2.6 cm staghorn appearing calculus causing mid to lower pole left hydronephrosis. -nephrology on board -consulted Urology for bilateral nephrostomy tube placement -David catheter placed on L IJ on 04/08/24 CHRISTOPH likely postobstructive nephropathy -most likely secondary to bilateral renal calculi -creatinine was 4.48 and BUN 109 -nephrology and urology on board -consulted Urology for bilateral nephrostomy tube placement, if therapy does not improve patient might need hemodialysis as last resource Hyperkalemia -potassium was 5.3 -monitor closely Lines: IJ right triple-lumen placed on 03/31/2024 Peripheral in right wrist placed on 03/31/2024 Peripheral in left forearm placed on 03/31/2024 David catheter placed in the left IJ placed on 04/02/2024 Goals of care discussed with the daughter and brother at bedside for >31min Critical time spent > 46min Plan discussed with: Daughter, Other (rn) My Orders Orders - ANGEL WHELAN MD Procedure Category Date Status Time Basic Metabolic Panel LAB 04/06/24 Verified 04:00 Lactic Acid W/ Reflex LAB 04/06/24 Verified Order 04:00 Complete Blood Count LAB 04/06/24 Verified 04:00 Date of Service: Apr 05, 2024 Billing Provider: ANGEL WHELAN MD Common Visit Codes: [id number] INP/OBS CARE(HIGH) ANGEL WHELAN MD Apr 05, 2024 14:28
--- NOTE | 2024-04-05 15:26 | ECG ---
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
--- NOTE | 2024-04-05 15:37 | ECG ---
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
--- NOTE | 2024-04-05 15:38 | ECG ---
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
[2024-04-05] MEDS: AMIODARONE 450mg/250ml AE 250 ML IV SCH (18:00)
[2024-04-05] MEDS: FUROSEMIDE INJECTION 100 MG in SODIUM CHL 0.9% 100 ML IV SCH (20:03)
[2024-04-06] VITALS (105 sets, daily range): BP systolic 82–132; BP diastolic 50–77; PULSE 61–161; RESP 21–26; TEMP 96.4–100.4; O2SAT 48–100
[2024-04-06 04:25] LABS: Basophils # (auto) 0 10 ^3/uL (0-0.2); Basophils % (auto) 0.2 % (0.0-2.0); Eosinophils # (auto) 0.1 10 ^3/uL (0-0.8); Hemoglobin 8.1 g/dL (12.2-16.2); Monocytes # (auto) 0.4 10 ^3/uL (0-1.3); Neutrophils # (auto) 13.8 10 ^3/uL (1.6-8.6); Red Cell Distribution Width 17.4 % (11.8-14.3); White Blood Cell 16.4 10^3/uL (4.4-10.8)
[2024-04-06 04:29] LABS: Eosinophils % (auto) 0.6 % (0.0-7.0); Lymphocytes # (auto) 2.1 10 ^3/uL (0.4-5.4); Lymphocytes % (auto) 12.8 % (10.0-50.0); Mean Corpuscular Hemoglobin 25.1 pg (28.0-32.0); Mean Corpuscular Hgb Conc. 32.6 g/dL (32.0-36.0); Monocytes % (auto) 2.4 % (0.0-12.0); Nucleated Red Blood Cells % 0.3 %; Platelet Count (auto) 198 10^3/uL (140-450); Red Blood Cells 3.24 10^6/uL (4.0-5.20)
[2024-04-06 04:30] LABS: Chloride 96 mmol/L (98-107); Potassium 4.3 mmol/L (3.5-5.1); Sodium 138 mmol/L (136-145)
[2024-04-06 04:31] LABS: Anion Gap 11 (5-15); Carbon Dioxide 31 mmol/L (20-31)
[2024-04-06 04:32] LABS: Calcium 7.1 mg/dL (8.7-10.4)
[2024-04-06 04:36] LABS: BUN/Creatinine Ratio 27.7 (10.0-20.0); Glucose 114 mg/dL (74-106)
[2024-04-06 04:38] LABS: Albumin 3.4 g/dL (3.2-4.8)
[2024-04-06 04:39] LABS: Phosphorus 5.8 mg/dL (2.4-5.1)
[2024-04-06 05:09] LABS: Blood Urea Nitrogen 90 mg/dL (9-23)
[2024-04-06 05:10] LABS: Lactic Acid w/Reflex 2.5 mmol/L (0.4-2.0)
--- NOTE | 2024-04-06 07:53 | DVHPN2 ---
Progress Note - Dictate Date Seen: Apr 06, 2024 Has the PT tested + for MRSA If YES, has PT been informed?: No Medical Necessity Reason Pt with a Central, PICC or Fol: Yes The following are medically ne: Central Line, Martines Catheter Subjective Patient seen and examined at the bedside within the ICU. Currently in sinus rhythm upon telemetry review. At present, remains on Amiodarone and Lidocaine infusion for rate and rhythm control. Remains on pressor support utilizing multiple vasopressors. Full AC remains advised for CVA prophylaxis in the setting of PAF. vital signs Vital Sign Date Time Temp Pulse Resp B/P (MAP) Pulse Ox O2 Delivery O2 Flow Rate FiO2 04/06/24 06:51 80 24 95/59 (71) 96 50 04/06/24 06:00 Mechanical Ventilator+ 04/06/24 04:30 97.2 207.0 Total Intake and Output 04/05/24 04/05/24 04/06/24 15:00 23:00 07:00 Intake Total 1251.279 ml 1104.460 ml 767.838 ml Output Total 1750 ml 2375 ml 3600 ml Balance -498.721 ml -1270.540 ml -2832.162 ml medications Current Medications Medications Dose Ordered Sig/Destini Route Start Time Stop Time Status Last Admin Dose Admin Heparin Sodium/ Dextrose 250 ml @ 18 mls/hr [id number] IV 03/31/24 23:45 UNV Midazolam HCl 50 ml @ 1 mls/hr Q24H IV 04/01/24 01:30 04/05/24 22:58 9 MLS/HR Vasopressin 20 units/Sodium Chloride 100 ml @ 9 mls/hr Q11H7M IV 04/01/24 01:30 04/06/24 01:22 9 MLS/HR Propofol 100 ml @ 4.5 mls/hr [id number] IV 04/01/24 02:30 04/02/24 15:01 4.5 MLS/HR Ondansetron HCl 4 mg Q4HP PRN IV 04/01/24 05:00 Acetaminophen 650 mg Q6HP PRN PO 04/01/24 05:00 04/05/24 02:09 650 MG Nitroglycerin 0.4 mg Q5MINP PRN SL 04/01/24 05:00 Morphine Sulfate 2 mg Q30M PRN IV 04/01/24 05:00 Albuterol 2.5 mg Q6HR NEB 04/01/24 06:00 04/06/24 06:50 2.5 MG Phenylephrine HCl 80 mg/Sodium Chloride 250 ml @ 7.5 mls/hr Q24H IV 04/01/24 10:45 04/05/24 22:45 29.063 MLS/HR Meropenem 50 ml @ 17 mls/hr Q12HR IV 04/02/24 10:00 04/05/24 22:44 17 MLS/HR Fentanyl Citrate 250 ml @ 2.5 mls/hr Q24H IV 04/02/24 11:15 04/05/24 21:08 10 MLS/HR Albumin Human 100 ml @ 100 mls/hr KIRAN PRN IV 04/03/24 07:00 Vancomycin HCl 0 ml @ 0 mls/hr UD IV 04/03/24 12:30 Norepinephrine Bitartrate 32 mg/ Sodium Chloride 250 ml @ 0.469 mls/ hr Q24H IV 04/04/24 06:30 Lidocaine HCl 500 ml @ 15 mls/hr Q24H IV 04/04/24 12:45 04/05/24 11:57 60 MLS/HR Amiodarone HCl 250 ml @ 16.667 mls/ hr Q15H IV 04/05/24 18:00 Furosemide 100 mg/ Sodium Chloride 110 ml @ 11 mls/hr Q10H IV 04/05/24 19:15 04/06/24 04:50 11 MLS/HR laboratory and microbiology Laboratory Tests 04/06/24 03:10 Test 04/06/24 03:10 Range/Units Serum Glucose 114 H 74-106 mg/dL Assessment/Plan Assessment/Plan Patient is a 68-year-old female who was transferred from [facility]. She originally presented to [facility] for shortness of breath ongoing for few days. She is intubated and is being managed in ICU. Information was obtained by reviewing the chart and communicating with staff. Reportedly, she presented with respiratory failure to [facility] (oxygen saturation was 88%) and over there was found to have white blood cell count of 26.6, hemoglobin of 11.1, creatinine of 5.6, potassium of 5.6 and troponin of 1.01. She was given 365 mg of aspirin in [facility]. She did have an episode of atrial fibrillation with RVR with questionable ST changes and was transferred to our facility for further care. She was also found to have right pleural effusion in [facility] and was diagnosed with non-STEMI. Intubated, on vent support. On pressure support. Obese. Mucosa is pale. Scattered rhonchi in the lungs is heard. Cardiac: Regular, no thrill/gallop. Abdomen is soft with increased bowel sounds. There is no gross mass. Extremities reveal 1+ edema bilaterally. Available past medical history includes obesity and questionable history of psoriasis. WBC: 25.3 - 23.7 - 20.2 - 20.5 - 17.6 - 18.4 - 19.2 - 22.2 Hemoglobin: 10.8 - 9.1 - 8.5 - 8.4 - 8.8 - 8.6 - 8.9 - 8.4 D-dimer: 3.62 Creatinine: 5.67 - 5.78 - 5.41 - 4.92 - 4.55 - 4.68 - 4.71 - 4.64 - 4.48 - 3.65 Potassium: 6.0 - 6.3 - 6.1 - 6.0 - 5.3 - 5.0 - 4.9 - 4.8 - 5.1 - 5.4 - 4.9 - 5.3 - 4.7 Lactic acid: 3.3 - 3.4 - 2.3 - 2.5 TSH: 1.71 BNP: 274.69 Troponin (high sensitive): 1469 - 1515 - 1684 Blood culture: positive Stool OB: positive Chest x-ray revealed: IMPRESSION: 1. Moderate right pleural effusion. 2. Cardiomegaly with mild pulmonary vascular congestion bilaterally. Repeat chest x-ray revealed: IMPRESSION: 1. Endotracheal tube and gastric tubes in place as described. 2. Right IJ central venous catheter projects over the lower SVC. 3. Mild cardiomegaly and prominence of the pulmonary vasculature. 4. Moderate to large right pleural effusion. Repeat chest x-ray revealed: IMPRESSION: Similar lung aeration with large right pleural effusion. No pneumothorax seen. Stable lines and tubes. Repeat chest x-ray revealed: IMPRESSION: Similar lung aeration with large right pleural effusion. No pneumothorax seen. Stable lines and tubes. Repeat chest xry revealed: Lines and tubes: ET in the mid thoracic trachea. NG crosses midline. Right CVC is stable. Left HD catheter projects over the mediastinum. Cardiomediastinal silhouette: Enlarged Pulmonary vasculature: prominent Lung expansion: low Lung airspace: patchy bilateral airspace opacity. Lung interstitium: normal Pleura: Similar large right effusion. Pneumothorax: no Bones: Unremarkable Other: no IMPRESSION: Lines and tubes, as above. Similar lung aeration bilaterally with a right pleural effusion and patchy airspace opacities. Repeat chest xry revealed: IMPRESSION: 1. Stable position of the support lines and tubes. 2. Interstitial and alveolar opacities. Repeat chest xry revealed: CT scan of the chest/abdomen and pelvis revealed: IMPRESSION: 1. Moderate partially loculated right pleural effusion and consolidations in the right middle and lower lobes which could be pneumonia and/or atelectasis. 2. Mild cardiomegaly, mild interstitial pulmonary edema, and body wall edema. 3. There is a 1.9 cm calculus in the right UPJ with mild right hydronephrosis 4. There is a 2.6 cm somewhat staghorn appearing calculus in the left renal pelvis and UPJ causing mild predominantly mid to lower pole left hydronephrosis. Mild soft tissue stranding about the left renal pelvis which could be due to obstruction or superimposed infection. Correlate with urinalysis. 5. Partial duplication of the left renal collecting system without hydronephrosis in the upper pole. 6. Moderate right perinephric, right retroperitoneal, and bilateral extraperitoneal pelvis low-density fluid and very mild left retroperitoneal low-density fluid. This could be fluid related to bilateral renal obstructions and forniceal ruptures versus evolved retroperitoneal hematoma. This is suboptimally evaluated without intravenous contrast. 7. Fluid-filled small and large bowel loops which may be physiologic or related to enterocolitis and could be manifesting as loose stools and/or diarrhea. 8. Prominent endometrium measuring at least 2.8 cm, suboptimally evaluated by CT. Recommend characterization with nonemergent pelvic ultrasound if clinically indicated. 9. Mild hepatosplenomegaly. 10. Moderate three-vessel calcified coronary artery disease and mild aortic valve calcification. 11. Right IJ central venous catheter in place terminating in the low SVC. 12. Small soft tissue stranding in the right supraclavicular neck which could be blood products. 13. Endotracheal tube terminates above the mili. CT of the head revealed: IMPRESSION: 1. No acute intracranial abnormality. 2. Generalized cerebral volume loss and mild chronic microvascular ischemic change. 3. Partially imaged endotracheal tube. Chest ultrasound revealed: Findings/Impression: There is a trace bilateral pleural effusion. Thoracentesis: FINDINGS: Moderate size, complex and septated right pleural effusion. Aspirated fluid is thick and green in consistency. IMPRESSION: Right thoracentesis with 250 mL removed for laboratory analysis. EKG in [facility] revealed sinus tachycardia, poor R-wave progression old inferior wall NE. later EKG revealed atrial fibrillation with RVR. Telemetry reveals sinus rhythm, occasions of A-fib with RVR, SVT Echocardiogram revealed: Technically limited study secondary to poor acoustic windows. Left ventricle: Left ventricle was normal-sized. Mild concentric left ventricular hypertrophy was seen. LVEF was 55-60%. No gross wall motion abnormality was observed, but its presence can not be ruled out on the basis of this study. Right ventricle is mildly dilated with normal systolic function. Left atrium was mildly dilated. Right atrium was normal-sized. Aortic valve was trileaflet. There was no aortic insufficiency. There was aortic sclerosis with no stenosis. There was trivial mitral/tricuspid regurgitation. Pulmonary valve was not well visualized. Right ventricular systolic pressure was assessed around 48 mm Hg. There was no pericardial effusion. Patient is a 68-year-old morbidly obese patient who presented with respiratory failure to the hospital. Presentation is in favor of sepsis/septic shock. Multiorgan failure is observed. She is intubated and on vent support. She is on multiple pressor support. Life findings are in favor of acute renal failure. She also is known to have nephrolithiasis with history of staghorn calculi. Cardiac-ceballos, the patient did have episode of atrial fibrillation with RVR. She is found to have increased troponin. Presentation questions non-STEMI and possibly type 2 ischemia. Recognizing the presentation, ischemic workup should be postponed after clinical stability. Is being followed by Nephrology. Had episodes of tachyarrhythmia. Loaded with Digoxin. Septic shock Multiorgan failure Acute respiratory failure on vent support Acute renal failure Nephrolithiasis Staghorn calculi Hydronephrosis Abnormal troponin, non-STEMI Atrial fibrillation with RVR Paroxysmal AFib Acute heart failure, diastolic Hepatosplenomegaly Pleural effusion Status post thoracentesis Morbid obesity s/p Cardioversion for A-fib with RVR Cardiac suggestion for management: Manage in ICU Follow-up electrolytes and kidney function tests and correct abnormalities Pressure support to keep mean arterial pressure above 65 Amiodarone drip Heparin drip Daily aspirin (81 mg daily) Loaded with Digoxin Sepsis workup and management as per primary team Cardiac ceballos, patient is elevated risk patient for urgent Thoracotomy procedure. You can consider proceeding with procedure under appropriate intra and post operative hemodynamic monitoring. If you choose to proceed with procedure, try to avoid hypotension. Evaluation and management of respiratory failure as per primary team/Pulmonary Evaluation and management of nephrolithiasis/hydronephrosis as per primary/Urology Evaluation and management of acute renal failure as per Nephrology Ischemic workup, after clinical stability Further evaluation and management as per above and clinical course. A total of 75 minutes was spent reviewing the patient record, examining the patient, making a diagnostic and therapeutic plan, discussing this plan with medical personnel, following up on diagnostic studies and following the patient for clinical stability excluding any and all procedures. At least 50% of this time was spent in direct, [id number] contact. Thank you for allowing me to participate in this patient's care. Further recommendations will depend on patient's clinical course. Please do not hesitate to contact me if you have any questions or concerns. This medical document was created using electronic medical record system with [employer] computerized dictation system. Although this document has been carefully reviewed, there may still be some phonetic and typographical errors. These areas are purely typographical due to the imperfection of the software programs, and do not reflect any compromise in the patient's medical care. Dietary Evaluation Review Comments: 1) If GI is accessible consider Nepro 1.8 @ 30 ml/hr goal rate as tolerated with current rate of propofol on board. 2) If pt remains NPO >7 days consider TPN to meet at least 75% of estimated needs 3) If pt continues to receive HD, advance pt diet when medically feasible to a Renal Standard diet modified per DIPLOMATIC INTERPRETER recommendations 4) If HD is discontinued and GFR is within normal range, advance pt diet to a Regular diet, modified per DIPLOMATIC INTERPRETER recommendations 5)If HD is discontinued and GFR lies within STG 1-4, advance pt diet to a Renal Specific K2,lowphos,HECTOR,2gmNa,80gPro diet 6) If HD is discontinued and if GFR returns to normal levels then ALEXANDRA 1 pkt BID with meals may be considered to aid with wound healing 7) Continue current plan of care Expected Outcomes/Goals: 1) Pt to receive nutrition support within 7 days of NPO status 2) Pt labs to improve 3) Pt diet to advance 4) F/U in 2-3 days Plan discussed with: Other (Primary RN) DOMINIQUE LEEP Apr 06, 2024 07:53
[2024-04-06 08:09] LABS: Base Excess 3.4 mmol/L (-2.0-3.0)
--- NOTE | 2024-04-06 11:36 | DVHPN2 ---
Progress Note Date Seen: Apr 06, 2024 Has the PT tested + for MRSA If YES, has PT been informed?: No Medical Necessity Reason Pt with a Central, PICC or Fol: Yes The following are medically ne: Central Line, Martines Catheter Subjective Review of Systems: RESPIRATORY:Abnormal Other Systems: Patient seen and examined by myself today in follow-up Patient remained intubated on ventilator Patient examined hemodialysis, blood pressure stable Objective vital signs Vital Sign Date Time Temp Pulse Resp B/P (MAP) Pulse Ox O2 Delivery O2 Flow Rate FiO2 04/06/24 10:30 79 24 88/55 (66) 94 50 04/06/24 10:15 97.9 208.2 04/06/24 10:00 Mechanical Ventilator+ Total Intake and Output 04/05/24 04/05/24 04/06/24 15:00 23:00 07:00 Intake Total 1251.279 ml 1104.460 ml 848.839 ml Output Total 1750 ml 2375 ml 3600 ml Balance -498.721 ml -1270.540 ml -2751.161 ml medications Current Medications Medications Dose Ordered Sig/Destini Route Start Time Stop Time Status Last Admin Dose Admin Heparin Sodium/ Dextrose 250 ml @ 18 mls/hr [id number] IV 03/31/24 23:45 UNV Midazolam HCl 50 ml @ 1 mls/hr Q24H IV 04/01/24 01:30 04/06/24 10:36 6 MLS/HR Vasopressin 20 units/Sodium Chloride 100 ml @ 9 mls/hr Q11H7M IV 04/01/24 01:30 04/06/24 09:56 9 MLS/HR Propofol 100 ml @ 4.5 mls/hr [id number] IV 04/01/24 02:30 04/02/24 15:01 4.5 MLS/HR Ondansetron HCl 4 mg Q4HP PRN IV 04/01/24 05:00 Acetaminophen 650 mg Q6HP PRN PO 04/01/24 05:00 04/05/24 02:09 650 MG Nitroglycerin 0.4 mg Q5MINP PRN SL 04/01/24 05:00 Morphine Sulfate 2 mg Q30M PRN IV 04/01/24 05:00 Albuterol 2.5 mg Q6HR NEB 04/01/24 06:00 04/06/24 06:50 2.5 MG Phenylephrine HCl 80 mg/Sodium Chloride 250 ml @ 7.5 mls/hr Q24H IV 04/01/24 10:45 04/05/24 22:45 29.063 MLS/HR Meropenem 50 ml @ 17 mls/hr Q12HR IV 04/02/24 10:00 04/06/24 09:40 17 MLS/HR Fentanyl Citrate 250 ml @ 2.5 mls/hr Q24H IV 04/02/24 11:15 04/05/24 21:08 10 MLS/HR Albumin Human 100 ml @ 100 mls/hr KIRAN PRN IV 04/03/24 07:00 Vancomycin HCl 0 ml @ 0 mls/hr UD IV 04/03/24 12:30 Norepinephrine Bitartrate 32 mg/ Sodium Chloride 250 ml @ 0.469 mls/ hr Q24H IV 04/04/24 06:30 Lidocaine HCl 500 ml @ 15 mls/hr Q24H IV 04/04/24 12:45 04/05/24 11:57 60 MLS/HR Amiodarone HCl 250 ml @ 16.667 mls/ hr Q15H IV 04/05/24 18:00 Furosemide 100 mg/ Sodium Chloride 110 ml @ 11 mls/hr Q10H IV 04/05/24 19:15 04/06/24 04:50 11 MLS/HR Examination: LUNGS:Normal, CVS:Normal, MSK:Abnormal laboratory and microbiology Laboratory Tests 04/06/24 03:10 Test 04/06/24 03:10 Range/Units Serum Glucose 114 H 74-106 mg/dL Microbiology Date/Time Source Procedure Growth Status 04/04/24 00:00 Voided Urine Urine Culture - Preliminary Resulted 04/01/24 15:30 Pleural Fluid Gram Stain - Final Complete 04/01/24 15:30 Aerobic Culture - Final Escherichia coli Complete 04/01/24 11:19 Nose MRSA Screen - Final Complete 04/01/24 07:18 Blood Blood Culture - Preliminary Resulted 03/31/24 22:55 Sputum Endotracheal Wash Gram Stain - Final Complete 03/31/24 22:55 Sputum Endotracheal Wash Respiratory Culture - Final Complete Problem List/Assessment/Plan Problem List/Assessment/Plan Acute kidney injury due to ATN/hemodynamic from shock, requiring intermittent hemodialysis Acute respiratory failure, intubated on ventilator NSTEMI septic shock empyema metabolic acidosis resolved b/l renal stones w/ hydronephrosis morbid obesity hyperkalemia afib RVR Recommendations Continue with UF to 3 L as tolerated Epogen 51191 IV post hemodialysis Albumin 25% p.r.n. hemodialysis DC Lasix drip IV pressors for blood pressure support Strict I&Os IV antibiotics Urology consult We will continue to follow Plan discussed with: Other (Nurse) My Orders My Orders Orders - SWETA CHAND MD Procedure Category Date Status Time Hemodialysis Orders ORDERS 04/06/24 Transmitted 07:00 Dialysis Nursing ANDRIA 04/06/24 In Process Message 07:00 Document Fluid Input ANDRIA 04/06/24 In Process And Outpu 07:00 Epoetin Damon-Epbx PHA 04/06/24 In Process (Retacrit) 21:00 Sodium Chl 0.9% PHA 04/05/24 In Process (So... W/Furosemide 19:15 Dietary Evaluation Review Comments: 1) If GI is accessible consider Nepro 1.8 @ 30 ml/hr goal rate as tolerated with current rate of propofol on board. 2) If pt remains NPO >7 days consider TPN to meet at least 75% of estimated needs 3) If pt continues to receive HD, advance pt diet when medically feasible to a Renal Standard diet modified per MORTGAGE OPERATIONS MANAGER recommendations 4) If HD is discontinued and GFR is within normal range, advance pt diet to a Regular diet, modified per MORTGAGE OPERATIONS MANAGER recommendations 5)If HD is discontinued and GFR lies within STG 1-4, advance pt diet to a Renal Specific K2,lowphos,HECTOR,2gmNa,80gPro diet 6) If HD is discontinued and if GFR returns to normal levels then ALEXANDRA 1 pkt BID with meals may be considered to aid with wound healing 7) Continue current plan of care Expected Outcomes/Goals: 1) Pt to receive nutrition support within 7 days of NPO status 2) Pt labs to improve 3) Pt diet to advance 4) F/U in 2-3 days SWETA CHAND MD Apr 06, 2024 11:36
[2024-04-06] MEDS ORDERED: AMIODARONE 450mg/250ml AE 250 ML IV SCH ×2 (11:45→12:45)
--- NOTE | 2024-04-06 11:45 | DVHPN2 ---
Subjective Seen and examined at bedside, Patient is on 50% Fio2. PEEP 6. Kids at bedside. Patient remains FULL CODE. Explained poor prognosis. Changes from previous H/P or p: No Changes Objective Vitals Vital Signs Date Time Temp Pulse Resp B/P (MAP) Pulse Ox O2 Delivery O2 Flow Rate FiO2 04/06/24 11:21 78 22 93/53 (66) 96 50 04/06/24 10:15 97.9 208.2 04/06/24 10:00 Mechanical Ventilator+ Intake/Output Intake and Output 04/06/24 07:00 Intake Total 3204.578 ml Output Total 7725 ml Balance -4520.422 ml Intake Oral 0 ml IV Total 3204.578 ml Output Urine Total 6925 ml Stool Total 0 ml Gastric Drainage Total 800 ml Exam Gen: in bed intubated Cvs: Tachycardic Resp: BLAE Abd: Obese Nutrition Educator: Sedated Medications Current Medications Medications Dose Ordered Sig/Destini Route Start Time Stop Time Status Last Admin Dose Admin Heparin Sodium/ Dextrose 250 ml @ 18 mls/hr [id number] IV 03/31/24 23:45 UNV Midazolam HCl 50 ml @ 1 mls/hr Q24H IV 04/01/24 01:30 04/06/24 10:36 6 MLS/HR Vasopressin 20 units/Sodium Chloride 100 ml @ 9 mls/hr Q11H7M IV 04/01/24 01:30 04/06/24 09:56 9 MLS/HR Propofol 100 ml @ 4.5 mls/hr [id number] IV 04/01/24 02:30 04/02/24 15:01 4.5 MLS/HR Ondansetron HCl 4 mg Q4HP PRN IV 04/01/24 05:00 Acetaminophen 650 mg Q6HP PRN PO 04/01/24 05:00 04/05/24 02:09 650 MG Nitroglycerin 0.4 mg Q5MINP PRN SL 04/01/24 05:00 Morphine Sulfate 2 mg Q30M PRN IV 04/01/24 05:00 Albuterol 2.5 mg Q6HR NEB 04/01/24 06:00 04/06/24 06:50 2.5 MG Phenylephrine HCl 80 mg/Sodium Chloride 250 ml @ 7.5 mls/hr Q24H IV 04/01/24 10:45 04/05/24 22:45 29.063 MLS/HR Meropenem 50 ml @ 17 mls/hr Q12HR IV 04/02/24 10:00 04/06/24 09:40 17 MLS/HR Fentanyl Citrate 250 ml @ 2.5 mls/hr Q24H IV 04/02/24 11:15 04/05/24 21:08 10 MLS/HR Albumin Human 100 ml @ 100 mls/hr KIRAN PRN IV 04/03/24 07:00 Vancomycin HCl 0 ml @ 0 mls/hr UD IV 04/03/24 12:30 Norepinephrine Bitartrate 32 mg/ Sodium Chloride 250 ml @ 0.469 mls/ hr Q24H IV 04/04/24 06:30 Lidocaine HCl 500 ml @ 15 mls/hr Q24H IV 04/04/24 12:45 04/05/24 11:57 60 MLS/HR Amiodarone HCl 250 ml @ 8.333 mls/ hr Q24H IV 04/06/24 11:45 UNV Laboratory Results Laboratory Tests 04/06/24 03:10 Chemistry Test 04/06/24 03:10 Albumin 3.4 g/dL (3.2-4.8) Calcium Level 7.1 mg/dL (8.7-10.4) L Magnesium Level 1.8 mg/dL (1.6-2.6) Phosphorus Level 5.8 mg/dL (2.4-5.1) H Urinalysis Test 03/31/24 20:42 Urine Color Smith (Yellow) H Urine Clarity Ex.turbid (Clear) Urine pH 5.5 (5.0-9.0) Urine Specific Mildred 1.020 (1.001-1.035) Urine Protein 2+ (Negative) H Urine Ketones Trace (Negative) Urine Blood 3+ /uL (Negative) H Urine Nitrite Negative (Negative) Urine Bilirubin Negative (Negative) Urine Urobilinogen 2 mg/dL (Negative) H Urine Leukocyte Esterase 3+ /uL (Negative) Urine RBC 508 /hpf (0 - 4) Urine WBC 2451 /hpf (0 - 5) Urine WBC Clumps Present /hpf (None Seen) Urine Squamous Epithelial Cells None seen /hpf (<5) Urine Bacteria Mod /hpf (None Seen) H Urine Mucus Few (None Seen) Urine Glucose Normal mg/dL (Normal) Blood Gas Results Test 04/06/24 07:57 Arterial Blood pH 7.575 (7.350-7.450) FiO2 % 50.0 Microbiology Microbiology Date/Time Source Procedure Growth Status 04/04/24 00:00 Voided Urine Urine Culture - Preliminary Resulted 04/01/24 15:30 Pleural Fluid Gram Stain - Final Complete 04/01/24 15:30 Aerobic Culture - Final Escherichia coli Complete 04/01/24 11:19 Nose MRSA Screen - Final Complete 04/01/24 07:18 Blood Blood Culture - Preliminary Resulted 03/31/24 22:55 Sputum Endotracheal Wash Gram Stain - Final Complete 03/31/24 22:55 Sputum Endotracheal Wash Respiratory Culture - Final Complete Assessment/Plan Assessment/Plan Neurology Sedation -currently on midazolam and fentanyl Vasopressors -currently on Levophed, vasopressin, phenylephrine Respiratory Acute hypoxic respirtory failure likel due to right-sided pleural effusion and consolidation on right middle and lower lobes -initial chest x-ray showed severe right lower lobe opacities consistent with either consolidation or moderate to severe pleural effusion -CT of the chest and abdomen showed moderate partial loculated right pleural effusion and consolidation on right middle/lower lobes. Mild cardiomegaly and interstitial pulmonary edema. It also showed right hydronephrosis with 1.9 cm calculus into the right UPJ. There is also a 2.6 cm staghorn appearing calculus causing mid to lower pole left hydronephrosis. -the patient was initially started on Zosyn, vancomycin and cefepime. We discontinued Zosyn and cefepime. -we will switch linezolid back to vancomycin due to low platelet. -start renal dose of IV meropenem -Continue IV vanco and meropenem -consulted interventional radiologist which performed right-sided thoracentesis removing 250 mL of fluid which were sent to analysis. -currently on mechanical ventilator on the following parameters: VT 500, RR 24, FiO2 50%, PEEP 10, saturating 92%. -surgery was consulted for possible right-sided thoracotomy but Anesthesiology did not clear the patient for surgery at this time due to severe hemodynamically instability Sepsis in the setting of loculated right-sided pleural effusion and pneumonia -ordered blood cultures, sputum cultures and urine culture -currently on IV meropenem and linezolid -Will monitor plateletes closely -S/P right-sided thoracentesis removing 250 mL of fluids. -chest x-ray this morning showed still right-sided opacities and left opacities in the base of the lung. Cardiology Acute on chronic systolic/diastolic heart failure -BNP came back elevated at 274.69 -initial EKG showed sinus tachycardia with PACs but no ST segment elevation or depression at that time -troponins came back elevated at 1469 and peaked up to 1684 -echocardiogram is showing an LVEF of 55-60% with increased RVSP at 48 mmHg and no pericardial effusion -furosemide drip at 20 mg/hr NSTEMI type II ? -troponins came back elevated at 1469 and peaked up to 1684 -Trend trops Atrial fibrilation with RVR -patient was placed on amiodarone drip 0.5 mg/min -CHADS VASC score HAS BLED score -heparin drip was hold for right-sided chest tube placement and david catheter placement -patient underwent atrial flutter with a heart rate of 180 to 200, cardiology decided to perform synchronized cardioversion and continue amiodarone drip. -S/P multiple synchronized cardioversions x4 -patient was started on lidocaine drip -patient was given two doses of digoxin but due to high levels of digoxin blood 3rd dose was held -metoprolol tartrate 2.5 mg IV push was given once achieving AFib on rate control partially at this time. Nephrology Bilateral hydronephrosis -CT scan of the chest and abdomen showed right hydronephrosis with 1.9 cm calculus into the right UPJ, there was also a 2.6 cm staghorn appearing calculus causing mid to lower pole left hydronephrosis. -nephrology on board -consulted Urology for bilateral nephrostomy tube placement -David catheter placed on L IJ on 04/08/24 CHRISTOPH likely postobstructive nephropathy -most likely secondary to bilateral renal calculi -creatinine was 4.48 and BUN 109 -nephrology and urology on board -consulted Urology for bilateral nephrostomy tube placement, if therapy does not improve patient might need hemodialysis as last resource Hyperkalemia -monitor closely Lines: IJ right triple-lumen placed on 03/31/2024 Peripheral in right wrist placed on 03/31/2024 Peripheral in left forearm placed on 03/31/2024 David catheter placed in the left IJ placed on 04/02/2024 Goals of care discussed with the daughter and brother at bedside for >31min Critical time spent > 42min Plan discussed with: Daughter, Son My Orders Orders - ANGEL WHELAN MD Procedure Category Date Status Time Communication Order ORDERS 04/05/24 Transmitted 10:00 Ventilator Orders RT 04/06/24 Transmitted 11:20 Abg W/ Co-Ox RT 04/06/24 Logged 12:30 Complete Blood Count LAB 04/07/24 Verified 04:00 Basic Metabolic Panel LAB 04/07/24 Verified 04:00 Date of Service: Apr 06, 2024 Billing Provider: ANGEL WHELAN MD Common Visit Codes: 73376-[id number] CARE 30-74 MIN ANGEL WHELAN MD Apr 06, 2024 11:45
[2024-04-06] MEDS: VANCOMYCIN 1GM/200ML PREMIX 200 ML IV ONE (12:12)
[2024-04-06 12:38] LABS: Base Excess 5.8 mmol/L (-2.0-3.0)
[2024-04-06] MEDS ORDERED: CATHFLO ACTIVASE (ALTEPLASE) 2 MG VIAL IV ONE (13:30)
[2024-04-06] MEDS: AMIODARONE 450mg/250ml AE 250 ML IV SCH (15:00)
[2024-04-06] MEDS: AMIODARONE 450mg/250ml AE 250 ML IV ONE (15:17)
[2024-04-06] MEDS: HEPARIN DRIP/D5W 100UNITS/ML 250 ML IV SCH ×2 (15:46→23:18)
[2024-04-06] MEDS: HEPARIN DRIP/D5W 100UNITS/ML 250 ML IV ONE (15:46)
[2024-04-06] MEDS: CATHFLO ACTIVASE (ALTEPLASE) 2 MG VIAL IV ONE (16:10)
[2024-04-06] MEDS: EPOETIN ALFA-EPBX 10,000 UNIT/1ML VIAL SC ONE (22:22)
[2024-04-06 22:31] LABS: INR 1.06 (0.9-1.15); Partial Thromboplastin Time < 20.0 SEC (24.5-34.5); Prothrombin Time 11.2 sec (9.3-11.8)
[2024-04-06] MEDS: SODIUM CHL 0.9% 1000 ML BAG XX ONE (22:34)
[2024-04-06] MEDS: HEPARIN SODIUM (PORCINE) 5000 UNITS/ML 1ML VIAL IV ONE (23:30)
[2024-04-06] MEDS: HEPARIN SODIUM (PORCINE) 5000 UNITS/ML 1ML VIAL ONE (23:46)
[2024-04-07] VITALS (103 sets, daily range): BP systolic 74–126; BP diastolic 44–57; PULSE 56–71; RESP 16–26; TEMP 97.3–99.9; O2SAT 93–100
[2024-04-07 03:55] LABS: Basophils # (auto) 0.1 10 ^3/uL (0-0.2); Basophils % (auto) 0.4 % (0.0-2.0); Eosinophils # (auto) 0.2 10 ^3/uL (0-0.8); Eosinophils % (auto) 1.3 % (0.0-7.0); Hematocrit 25.9 % (36.0-46.0); Hemoglobin 8.1 g/dL (12.2-16.2); Lymphocytes # (auto) 2.4 10 ^3/uL (0.4-5.4); Lymphocytes % (auto) 15.2 % (10.0-50.0); Mean Corpuscular Hemoglobin 24.9 pg (28.0-32.0); Mean Corpuscular Hgb Conc. 31.2 g/dL (32.0-36.0); Mean Corpuscular Volume 79.7 fL (80.0-100.0); Monocytes # (auto) 0.5 10 ^3/uL (0-1.3); Monocytes % (auto) 3.2 % (0.0-12.0); Neutrophils # (auto) 12.8 10 ^3/uL (1.6-8.6); Neutrophils % (auto) 79.9 % (37.0-80.0); Nucleated Red Blood Cells % 0.2 %; Platelet Count (auto) 249 10^3/uL (140-450); Red Blood Cells 3.24 10^6/uL (4.0-5.20); Red Cell Distribution Width 17.7 % (11.8-14.3); White Blood Cell 16.1 10^3/uL (4.4-10.8)
[2024-04-07 04:00] LABS: INR 1.09 (0.9-1.15); Partial Thromboplastin Time 58.3 SEC (24.5-34.5); Prothrombin Time 11.5 sec (9.3-11.8)
[2024-04-07 04:15] LABS: Alanine Aminotransferase 14 U/L (7-40); Alkaline Phosphatase 84 U/L (46-116); Anion Gap 14 (5-15); BUN/Creatinine Ratio 30.1 (10.0-20.0); Calcium 7.1 mg/dL (8.7-10.4); Carbon Dioxide 29 mmol/L (20-31); Chloride 99 mmol/L (98-107); Glucose 135 mg/dL (74-106); Potassium 4.2 mmol/L (3.5-5.1); Sodium 142 mmol/L (136-145)
[2024-04-07 04:16] LABS: Magnesium 1.9 mg/dL (1.6-2.6)
[2024-04-07 04:17] LABS: Albumin 3.2 g/dL (3.2-4.8); Aspartate Aminotransferase 45 U/L (13-40); Bilirubin, Total 0.5 mg/dL (0.2-1.0); Phosphorus 6.5 mg/dL (2.4-5.1)
[2024-04-07 04:18] LABS: Total Protein 6.2 g/dL (5.7-8.2)
--- NOTE | 2024-04-07 04:49 | DVH ---
CHEST RADIOGRAPH Indication:RESPIRATORY FAILURE Technique: Single frontal view of the chest was obtained Comparison: XY CHEST XRAY 1 VIEW on DOS: 04/05/24 FINDINGS: Lines and Tubes: The endotracheal tube terminates 5.0 cm above the mili. Right central venous cath eter terminates in the superior vena cava. Left central venous catheter terminates in the superior ve na cava. Lungs: Pulmonary congestion noted. Pleura: Right pleural effusion. Small left pleural effusion. No pneumothorax. Cardiomediastinal contours: Unremarkable Bones: No acute osseous abnormality. IMPRESSION: 1. Support lines and tubes in appropriate position. 2. Pulmonary vascular congestion. 3. Bilateral pleural effusions, right greater than left.
[2024-04-07 04:56] LABS: Blood Urea Nitrogen 85 mg/dL (9-23)
[2024-04-07 07:26] LABS: Base Excess 4.8 mmol/L (-2.0-3.0)
[2024-04-07] MEDS: PHENYLEPHRINE IV 250 ML IV ONE (07:34)
[2024-04-07] MEDS: PHENYLEPHRINE HCL 10 MG/ML VL ONE (07:35)
--- NOTE | 2024-04-07 08:00 | DVHPN2 ---
Progress Note - Dictate Date Seen: Apr 07, 2024 Has the PT tested + for MRSA If YES, has PT been informed?: No Medical Necessity Reason Pt with a Central, PICC or Fol: Yes The following are medically ne: Central Line, Martines Catheter vital signs Vital Sign Date Time Temp Pulse Resp B/P (MAP) Pulse Ox O2 Delivery O2 Flow Rate FiO2 04/07/24 06:39 63 22 107/54 (71) 95 40 04/07/24 06:00 Mechanical Ventilator+ 04/07/24 06:00 99.3 210.7 Total Intake and Output 04/06/24 04/06/24 04/07/24 15:00 23:00 07:00 Intake Total 860.348 ml 1056.584 ml 960.728 ml Output Total 1850 ml 900 ml Balance 860.348 ml -793.416 ml 60.728 ml medications Current Medications Medications Dose Ordered Sig/Destini Route Start Time Stop Time Status Last Admin Dose Admin Heparin Sodium/ Dextrose 250 ml @ 18 mls/hr [id number] IV 03/31/24 23:45 UNV Midazolam HCl 50 ml @ 1 mls/hr Q24H IV 04/01/24 01:30 04/07/24 07:34 7 MLS/HR Vasopressin 20 units/Sodium Chloride 100 ml @ 9 mls/hr [id number] IV 04/01/24 01:30 04/06/24 22:33 9 MLS/HR Propofol 100 ml @ 4.5 mls/hr [id number] IV 04/01/24 02:30 04/02/24 15:01 4.5 MLS/HR Ondansetron HCl 4 mg Q4HP PRN IV 04/01/24 05:00 Acetaminophen 650 mg Q6HP PRN PO 04/01/24 05:00 04/05/24 02:09 650 MG Nitroglycerin 0.4 mg Q5MINP PRN SL 04/01/24 05:00 Morphine Sulfate 2 mg Q30M PRN IV 04/01/24 05:00 Albuterol 2.5 mg Q6HR NEB 04/01/24 06:00 04/07/24 06:30 2.5 MG Phenylephrine HCl 80 mg/Sodium Chloride 250 ml @ 7.5 mls/hr Q24H IV 04/01/24 10:45 04/07/24 07:06 29.063 MLS/HR Meropenem 50 ml @ 17 mls/hr Q12HR IV 04/02/24 10:00 04/06/24 22:21 17 MLS/HR Fentanyl Citrate 250 ml @ 2.5 mls/hr Q24H IV 04/02/24 11:15 04/06/24 22:23 10 MLS/HR Albumin Human 100 ml @ 100 mls/hr KIRAN PRN IV 04/03/24 07:00 Vancomycin HCl 0 ml @ 0 mls/hr UD IV 04/03/24 12:30 Norepinephrine Bitartrate 32 mg/ Sodium Chloride 250 ml @ 0.469 mls/ hr Q24H IV 04/04/24 06:30 Lidocaine HCl 500 ml @ 15 mls/hr Q24H IV 04/04/24 12:45 04/05/24 11:57 60 MLS/HR Amiodarone HCl 250 ml @ 8.333 mls/ hr Q24H IV 04/06/24 15:00 04/07/24 05:50 33.333 MLS/HR Heparin Sodium/ Dextrose 250 ml @ 19 mls/hr [id number] IV 04/06/24 23:15 04/07/24 05:53 19 MLS/HR laboratory and microbiology Laboratory Tests 04/07/24 03:23 Test 04/07/24 03:23 Range/Units Serum Glucose 135 H 74-106 mg/dL Assessment/Plan Patient is a 68-year-old female who was transferred from [facility]. She originally presented to [facility] for shortness of breath ongoing for few days. She is intubated and is being managed in ICU. Information was obtained by reviewing the chart and communicating with staff. Reportedly, she presented with respiratory failure to [facility] (oxygen saturation was 88%) and over there was found to have white blood cell count of 26.6, hemoglobin of 11.1, creatinine of 5.6, potassium of 5.6 and troponin of 1.01. She was given 365 mg of aspirin in [facility]. She did have an episode of atrial fibrillation with RVR with questionable ST changes and was transferred to our facility for further care. She was also found to have right pleural effusion in [facility] and was diagnosed with non-STEMI. Intubated, on vent support. On pressure support. Obese. Mucosa is pale. Scattered rhonchi in the lungs is heard. Cardiac: Regular, no thrill/gallop. Abdomen is soft with increased bowel sounds. There is no gross mass. Extremities reveal 1+ edema bilaterally. Available past medical history includes obesity and questionable history of psoriasis. WBC: 25.3 - 23.7 - 20.2 - 20.5 - 17.6 - 18.4 - 19.2 - 19.4 - 22.2 - 16.4 - 16.1 Hemoglobin: 10.8 - 9.1 - 8.5 - 8.4 - 8.8 - 8.6 - 8.9 - 8.1 - 8.4 - 8.1 - 8.1 D-dimer: 3.62 Creatinine: 5.67 - 5.78 - 5.41 - 4.92 - 4.55 - 4.68 - 4.71 - 4.64 - 4.48 - 3.83 - 3.66 - 3.65 - 3.25 - 2.82 Potassium: 6.0 - 6.3 - 6.1 - 6.0 - 5.3 - 5.0 - 4.9 - 4.8 - 5.1 - 5.4 - 4.9 - 5.3 - 4.8 - 4.5 - 4.7 - 4.3 - 4.2 Lactic acid: 3.3 - 3.4 - 2.3 - 2.5 - 2.5 - 2.7 - 2.4 - 2.5 - 3.1 TSH: 1.71 BNP: 274.69 - 1944.81 Troponin (high sensitive): 1469 - 1515 - 1684 Blood culture: positive Pleural fluid culture: E-coli Digoxin level: 2.09 Stool OB: positive Chest x-ray revealed: IMPRESSION: 1. Moderate right pleural effusion. 2. Cardiomegaly with mild pulmonary vascular congestion bilaterally. Repeat chest x-ray revealed: IMPRESSION: 1. Endotracheal tube and gastric tubes in place as described. 2. Right IJ central venous catheter projects over the lower SVC. 3. Mild cardiomegaly and prominence of the pulmonary vasculature. 4. Moderate to large right pleural effusion. Repeat chest x-ray revealed: IMPRESSION: Similar lung aeration with large right pleural effusion. No pneumothorax seen. Stable lines and tubes. Repeat chest x-ray revealed: IMPRESSION: Similar lung aeration with large right pleural effusion. No pneumothorax seen. Stable lines and tubes. Repeat chest xry revealed: Lines and tubes: ET in the mid thoracic trachea. NG crosses midline. Right CVC is stable. Left HD catheter projects over the mediastinum. Cardiomediastinal silhouette: Enlarged Pulmonary vasculature: prominent Lung expansion: low Lung airspace: patchy bilateral airspace opacity. Lung interstitium: normal Pleura: Similar large right effusion. Pneumothorax: no Bones: Unremarkable Other: no IMPRESSION: Lines and tubes, as above. Similar lung aeration bilaterally with a right pleural effusion and patchy airspace opacities. Repeat chest xry revealed: IMPRESSION: 1. Stable position of the support lines and tubes. 2. Interstitial and alveolar opacities. Repeat chest xry revealed: IMPRESSION: Unchanged multifocal airspace disease. Small to moderate right pleural effusion ; possibly loculated. Repeat chest xry revealed: IMPRESSION: Lines and tubes in satisfactory position. No significant interval change. Repeat chest xry revealed: IMPRESSION: 1. Support lines and tubes in appropriate position. 2. Pulmonary vascular congestion. 3. Bilateral pleural effusions, right greater than left. CT scan of the chest/abdomen and pelvis revealed: IMPRESSION: 1. Moderate partially loculated right pleural effusion and consolidations in the right middle and lower lobes which could be pneumonia and/or atelectasis. 2. Mild cardiomegaly, mild interstitial pulmonary edema, and body wall edema. 3. There is a 1.9 cm calculus in the right UPJ with mild right hydronephrosis 4. There is a 2.6 cm somewhat staghorn appearing calculus in the left renal pelvis and UPJ causing mild predominantly mid to lower pole left hydronephrosis. Mild soft tissue stranding about the left renal pelvis which could be due to obstruction or superimposed infection. Correlate with urinalysis. 5. Partial duplication of the left renal collecting system without hydronephrosis in the upper pole. 6. Moderate right perinephric, right retroperitoneal, and bilateral extraperitoneal pelvis low-density fluid and very mild left retroperitoneal low-density fluid. This could be fluid related to bilateral renal obstructions and forniceal ruptures versus evolved retroperitoneal hematoma. This is suboptimally evaluated without intravenous contrast. 7. Fluid-filled small and large bowel loops which may be physiologic or related to enterocolitis and could be manifesting as loose stools and/or diarrhea. 8. Prominent endometrium measuring at least 2.8 cm, suboptimally evaluated by CT. Recommend characterization with nonemergent pelvic ultrasound if clinically indicated. 9. Mild hepatosplenomegaly. 10. Moderate three-vessel calcified coronary artery disease and mild aortic valve calcification. 11. Right IJ central venous catheter in place terminating in the low SVC. 12. Small soft tissue stranding in the right supraclavicular neck which could be blood products. 13. Endotracheal tube terminates above the mili. CT of the head revealed: IMPRESSION: 1. No acute intracranial abnormality. 2. Generalized cerebral volume loss and mild chronic microvascular ischemic change. 3. Partially imaged endotracheal tube. Chest ultrasound revealed: Findings/Impression: There is a trace bilateral pleural effusion. Thoracentesis: FINDINGS: Moderate size, complex and septated right pleural effusion. Aspirated fluid is thick and green in consistency. IMPRESSION: Right thoracentesis with 250 mL removed for laboratory analysis. EKG in [facility] revealed sinus tachycardia, poor R-wave progression old inferior wall MN. later EKG revealed atrial fibrillation with RVR. Telemetry reveals sinus rhythm, occasions of A-fib with RVR, SVT Echocardiogram revealed: Technically limited study secondary to poor acoustic windows. Left ventricle: Left ventricle was normal-sized. Mild concentric left ventricular hypertrophy was seen. LVEF was 55-60%. No gross wall motion abnormality was observed, but its presence can not be ruled out on the basis of this study. Right ventricle is mildly dilated with normal systolic function. Left atrium was mildly dilated. Right atrium was normal-sized. Aortic valve was trileaflet. There was no aortic insufficiency. There was aortic sclerosis with no stenosis. There was trivial mitral/tricuspid regurgitation. Pulmonary valve was not well visualized. Right ventricular systolic pressure was assessed around 48 mm Hg. There was no pericardial effusion. Patient is a 68-year-old morbidly obese patient who presented with respiratory failure to the hospital. Presentation is in favor of sepsis/septic shock. Multiorgan failure is observed. She is intubated and on vent support. She is on multiple pressor support. Life findings are in favor of acute renal failure. She also is known to have nephrolithiasis with history of staghorn calculi. Cardiac-ceballos, the patient did have episode of atrial fibrillation with RVR. She is found to have increased troponin. Presentation questions non-STEMI and possibly type 2 ischemia. Recognizing the presentation, ischemic workup should be postponed after clinical stability. Is being followed by Nephrology. Had episodes of tachyarrhythmia. Loaded with Digoxin. Positive cultures. Repeated a-fib with RVR. Septic shock Multiorgan failure Acute respiratory failure on vent support Acute renal failure Nephrolithiasis Staghorn calculi Hydronephrosis Abnormal troponin, non-STEMI Atrial fibrillation with RVR Paroxysmal AFib Acute heart failure, diastolic Hepatosplenomegaly Pleural effusion Status post thoracentesis Morbid obesity s/p Cardioversion for A-fib with RVR Cardiac suggestion for management: Manage in ICU Follow-up electrolytes and kidney function tests and correct abnormalities Pressure support to keep mean arterial pressure above 65 Amiodarone drip Heparin drip Daily aspirin (81 mg daily) Loaded with Digoxin IV metoprolol PRN for a-fib with RVR episodes. Sepsis workup and management as per primary team Cardiac ceballos, patient is elevated risk patient for urgent Thoracotomy procedure. You can consider proceeding with procedure under appropriate intra and post operative hemodynamic monitoring. If you choose to proceed with procedure, try to avoid hypotension. Evaluation and management of respiratory failure as per primary team/Pulmonary Evaluation and management of nephrolithiasis/hydronephrosis as per primary/Urology Evaluation and management of acute renal failure as per Nephrology Ischemic workup, after clinical stability Further evaluation and management as per above and clinical course. A total of 75 minutes was spent reviewing the patient record, examining the patient, making a diagnostic and therapeutic plan, discussing this plan with medical personnel, following up on diagnostic studies and following the patient for clinical stability excluding any and all procedures. At least 50% of this time was spent in direct, [id number] contact. Thank you for allowing me to participate in this patient's care. Further recommendations will depend on patient's clinical course. Please do not hesitate to contact me if you have any questions or concerns. This medical document was created using electronic medical record system with [employer] dictation system. Although this document has been carefully reviewed, there may still be some phonetic and typographical errors. These areas are purely typographical due to the imperfection of the software programs, and do not reflect any compromise in the patient's medical care. Dietary Evaluation Review Comments: 1) If GI is accessible consider Nepro 1.8 @ 30 ml/hr goal rate as tolerated with current rate of propofol on board. 2) If pt remains NPO >7 days consider TPN to meet at least 75% of estimated needs 3) If pt continues to receive HD, advance pt diet when medically feasible to a Renal Standard diet modified per [employer] recommendations 4) If HD is discontinued and GFR is within normal range, advance pt diet to a Regular diet, modified per [employer] recommendations 5)If HD is discontinued and GFR lies within STG 1-4, advance pt diet to a Renal Specific K2,lowphos,HECTOR,2gmNa,80gPro diet 6) If HD is discontinued and if GFR returns to normal levels then ALEXANDRA 1 pkt BID with meals may be considered to aid with wound healing 7) Continue current plan of care Expected Outcomes/Goals: 1) Pt to receive nutrition support within 7 days of NPO status 2) Pt labs to improve 3) Pt diet to advance 4) F/U in 2-3 days Plan discussed with: Other (nurse) HERMINIO JOHNSON MD Apr 07, 2024 08:00
[2024-04-07 09:01] LABS: Hepatitis B Surface Antigen Negative (Negative)
[2024-04-07 09:22] LABS: Hepatitis A Ab IgM Negative; Hepatitis B Core IgM Negative
[2024-04-07 09:23] LABS: Hepatitis C Antibody Negative (Negative)
[2024-04-07 10:45] LABS: INR 1.08 (0.9-1.15); Partial Thromboplastin Time 51.2 SEC (24.5-34.5); Prothrombin Time 11.4 sec (9.3-11.8)
[2024-04-07] MEDS ORDERED: METOPROLOL TARTRATE 1MG/1ML-5ML VIAL IV PRN (11:15)
--- NOTE | 2024-04-07 11:57 | DVHPNRES ---
Progress Note Date Seen: Apr 07, 2024 Resident Creating Document: KEVON BLANTON RESIDENT Has the PT tested + for MRSA If YES, has PT been informed?: No Medical Necessity Reason Pt with a Central, PICC or Fol: Yes The following are medically ne: Central Line, Martines Catheter Subjective Review of Systems This is a 68-year-old female with unknown past medical history who was transferred from another facility ([facility]) for higher level of care. The patient initially was treated at that facility for shortness of breaths and back pain. The patient was transferred to our facility for higher level of care. The patient on arrival to the ED was tachypneic with severe respiratory failure, tachycardic rhythm consistent with atrial fibrillation and was saturating in the 70s. Initially placed on non-rebreather mask and then emergently intubated to protect airway. The patient was started on amiodarone drip 1 milligram/minute, phenylephrine, vasopressin and levophed. Patient initially was started on broad-spectrum antibiotics with vancomycin and Zosyn but for renal protection, since GFR was less than 10 and to have a more broad- spectrum coverage we added meropenem and discontinued Zosyn. To the ICU for further assessment and management. Patient seen and examined at bedside. Yesterday during the day the patient was on AFib with RVR but overnight patient was stable overall in sinus rhythm. The patient is currently sedated on fentanyl 100mcg/hr and midazolam 7 mg/hr. Patient is on mechanical ventilator on the following parameters: VT 500, RR 22, FiO2 40%, peep six, saturating 94%. The patient is also on Levophed 2mcg/min, vasopressin 0.03 units/min and phenylephrine 154 mg/Min. Today in the morning the patient started doing some second-degree AV block, cardiology was notified and indicated holding any type of beta-blockers and trying to titrate down Levophed due to history of AFib. Chest x-ray this morning was reviewed showing right lower lobe infiltrates unchanged from previous x-rays. We will discontinue heparin drip because patient might get right thoracotomy surgery tomorrow. ROS unable to be obtained due to patient's current condition intubation. Objective vital signs Vital Sign Date Time Temp Pulse Resp B/P (MAP) Pulse Ox O2 Delivery O2 Flow Rate FiO2 04/07/24 11:00 99.7 63 23 105/51 (69) 95 211.5 04/07/24 10:18 40 04/07/24 10:00 Mechanical Ventilator+ Total Intake and Output 04/06/24 04/06/24 04/07/24 15:00 23:00 07:00 Intake Total 860.348 ml 1056.584 ml 1099.062 ml Output Total 1850 ml 900 ml Balance 860.348 ml -793.416 ml 199.062 ml medications Current Medications Medications Dose Ordered Sig/Destini Route Start Time Stop Time Status Last Admin Dose Admin Heparin Sodium/ Dextrose 250 ml @ 18 mls/hr [id number] IV 03/31/24 23:45 UNV Midazolam HCl 50 ml @ 1 mls/hr Q24H IV 04/01/24 01:30 04/07/24 07:34 7 MLS/HR Vasopressin 20 units/Sodium Chloride 100 ml @ 9 mls/hr Q11H7M IV 04/01/24 01:30 04/07/24 09:10 9 MLS/HR Propofol 100 ml @ 4.5 mls/hr [id number] IV 04/01/24 02:30 04/02/24 15:01 4.5 MLS/HR Ondansetron HCl 4 mg Q4HP PRN IV 04/01/24 05:00 Acetaminophen 650 mg Q6HP PRN PO 04/01/24 05:00 04/05/24 02:09 650 MG Nitroglycerin 0.4 mg Q5MINP PRN SL 04/01/24 05:00 Morphine Sulfate 2 mg Q30M PRN IV 04/01/24 05:00 Albuterol 2.5 mg Q6HR NEB 04/01/24 06:00 04/07/24 06:30 2.5 MG Phenylephrine HCl 80 mg/Sodium Chloride 250 ml @ 7.5 mls/hr Q24H IV 04/01/24 10:45 04/07/24 07:06 29.063 MLS/HR Meropenem 50 ml @ 17 mls/hr Q12HR IV 04/02/24 10:00 04/07/24 09:58 17 MLS/HR Fentanyl Citrate 250 ml @ 2.5 mls/hr Q24H IV 04/02/24 11:15 04/06/24 22:23 10 MLS/HR Albumin Human 100 ml @ 100 mls/hr KIRAN PRN IV 04/03/24 07:00 Vancomycin HCl 0 ml @ 0 mls/hr UD IV 04/03/24 12:30 Norepinephrine Bitartrate 32 mg/ Sodium Chloride 250 ml @ 0.469 mls/ hr Q24H IV 04/04/24 06:30 Lidocaine HCl 500 ml @ 15 mls/hr Q24H IV 04/04/24 12:45 04/07/24 09:11 30 MLS/HR Heparin Sodium/ Dextrose 250 ml @ 19 mls/hr [id number] IV 04/06/24 23:15 04/07/24 05:53 19 MLS/HR Amiodarone HCl 250 ml @ 16.667 mls/ hr Q15H IV 04/07/24 11:15 Metoprolol Tartrate 5 mg Q6HPRN PRN IV 04/07/24 11:15 Examination Physical Examination General: Patient sedated on mechanical ventilator: VT 500, RR 22, FiO2 40%, PEEP 6, sat 94% HEENT: Normocephalic, atraumatic, moist mucous membranes Respiratory/pulmonary: There are no breath sounds audible in the right lung base and diminished breath sounds on the left lung as well. Cardiovascular: Heart rate and rhythm is oscillating significantly from sinus rhythm to AFib rate controlled to AFib with RVR. No murmurs at this time. Abdomen: Abdomen slightly distended, there is no pain to palpation in any of the abdominal quadrants, no palpable masses. Extremities: There is minimal swelling in the lower extremities bilaterally. Peripheral Pulses: 3+ Radial (R). 3+ Radial (L). 3+ Dorsalis pedis (R). 3+ Dorsalis pedis(L) Skin: There is dry skin in bilateral lower extremities with scales and excoriations. Neurological: Sedated, RASS -3 laboratory and microbiology Laboratory Tests 04/07/24 03:23 Test 04/07/24 03:23 Range/Units Serum Glucose 135 H 74-106 mg/dL Microbiology Date/Time Source Procedure Growth Status 04/04/24 00:00 Voided Urine Urine Culture - Final Complete 04/01/24 15:30 Pleural Fluid Gram Stain - Final Complete 04/01/24 15:30 Aerobic Culture - Final Escherichia coli Complete 04/01/24 11:19 Nose MRSA Screen - Final Complete 04/01/24 07:18 Blood Blood Culture - Final Staphylococcus auricularis#2 Complete 03/31/24 22:55 Sputum Endotracheal Wash Gram Stain - Final Complete 03/31/24 22:55 Sputum Endotracheal Wash Respiratory Culture - Final Complete Problem List/Assessment/Plan Problem List/Assessment/Plan Assessment/Plan Neurology Sedation -currently on midazolam and fentanyl Vasopressors -currently on Levophed, vasopressin, phenylephrine Respiratory Acute hypoxic respirtory failure likel due to right-sided pleural effusion and consolidation on right middle and lower lobes -initial chest x-ray showed severe right lower lobe opacities consistent with either consolidation or moderate to severe pleural effusion -CT of the chest and abdomen showed moderate partial loculated right pleural effusion and consolidation on right middle/lower lobes. Mild cardiomegaly and interstitial pulmonary edema. It also showed right hydronephrosis with 1.9 cm calculus into the right UPJ. There is also a 2.6 cm staghorn appearing calculus causing mid to lower pole left hydronephrosis. -the patient was initially started on Zosyn, vancomycin and cefepime. We discontinued Zosyn and cefepime. -we will switch linezolid back to vancomycin due to low platelet. -start renal dose of IV meropenem -Continue IV vanco and meropenem -consulted interventional radiologist which performed right-sided thoracentesis removing 250 mL of fluid which were sent to analysis. -currently on mechanical ventilator on the following parameters: VT 500, RR 22, FiO2 40%, PEEP 6, saturating 94%. -surgery was consulted, possible right thoracotomy will be performed tomorrow -Hold heparin drip Sepsis in the setting of loculated right-sided pleural effusion and pneumonia -ordered blood cultures, sputum cultures and urine culture -currently on IV meropenem and linezolid -Will monitor plateletes closely -S/P right-sided thoracentesis removing 250 mL of fluids. -chest x-ray this morning showed still right-sided opacities and left opacities in the base of the lung. -surgery was consulted, possible right thoracotomy will be performed tomorrow -Hold heparin drip Cardiology Acute on chronic systolic/diastolic heart failure -BNP came back elevated at 274.69 -initial EKG showed sinus tachycardia with PACs but no ST segment elevation or depression at that time -troponins came back elevated at 1469 and peaked up to 1684 -echocardiogram is showing an LVEF of 55-60% with increased RVSP at 48 mmHg and no pericardial effusion -Stop furosemide drip at 20 mg/hr NSTEMI type II ? -troponins came back elevated at 1469 and peaked up to 1684 -Trend trops Atrial fibrilation with RVR -patient was placed on amiodarone drip 0.5 mg/min -CHADS VASC score HAS BLED score -heparin drip was hold for right-sided chest tube placement and david catheter placement -patient underwent atrial flutter with a heart rate of 180 to 200, cardiology decided to perform synchronized cardioversion and continue amiodarone drip. -S/P multiple synchronized cardioversions x4 -Continue on lidocaine drip -patient was given two doses of digoxin but due to high levels of digoxin blood 3rd dose was held -metoprolol tartrate 2.5 mg IV push was given once achieving AFib on rate control partially at this time. Nephrology Bilateral hydronephrosis -CT scan of the chest and abdomen showed right hydronephrosis with 1.9 cm calculus into the right UPJ, there was also a 2.6 cm staghorn appearing calculus causing mid to lower pole left hydronephrosis. -nephrology on board -consulted Urology for bilateral nephrostomy tube placement -David catheter placed on L IJ on 04/08/24 CHRISTOPH likely postobstructive nephropathy -most likely secondary to bilateral renal calculi -creatinine was 2.82 and BUN 85 -nephrology and urology on board -consulted Urology for bilateral nephrostomy tube placement, if therapy does not improve patient might need hemodialysis as last resource Hyperkalemia -potassium was 4.2 -monitor closely Lines: IJ right triple-lumen placed on 03/31/2024 Peripheral in right wrist placed on 03/31/2024 Peripheral in left forearm placed on 03/31/2024 David catheter placed in the left IJ placed on 04/02/2024 Goals of care discussed with the daughter and brother at bedside for >31min Critical time spent > 55min Plan discussed with Dr. Jones Plan discussed with: Daughter, Son My Orders My Orders Orders - KEVON BLANTON RESIDENT Procedure Category Date Status Time Abg W/ Co-Ox RT 04/07/24 Logged 04:00 Dietary Evaluation Review Comments: 1) If GI is accessible consider Nepro 1.8 @ 30 ml/hr goal rate as tolerated with current rate of propofol on board. 2) If pt remains NPO >7 days consider TPN to meet at least 75% of estimated needs 3) If pt continues to receive HD, advance pt diet when medically feasible to a Renal Standard diet modified per HEALTH EDUCATION ASSISTANT recommendations 4) If HD is discontinued and GFR is within normal range, advance pt diet to a Regular diet, modified per HEALTH EDUCATION ASSISTANT recommendations 5)If HD is discontinued and GFR lies within STG 1-4, advance pt diet to a Renal Specific K2,lowphos,HECTOR,2gmNa,80gPro diet 6) If HD is discontinued and if GFR returns to normal levels then ALEXANDRA 1 pkt BID with meals may be considered to aid with wound healing 7) Continue current plan of care Expected Outcomes/Goals: 1) Pt to receive nutrition support within 7 days of NPO status 2) Pt labs to improve 3) Pt diet to advance 4) F/U in 2-3 days Date of Service: Apr 07, 2024 Billing Provider: LAURIE JONES MD Common Visit Codes: [id number] CARE 30-74 MIN KEVON BLANTON RESIDENT Apr 07, 2024 11:56 LAURIE JONES MD Apr 08, 2024 13:03
[2024-04-07] MEDS: AMIODARONE 450mg/250ml AE 250 ML IV SCH (12:45)
--- NOTE | 2024-04-07 14:05 | DVHPN2 ---
Progress Note Date Seen: Apr 07, 2024 Has the PT tested + for MRSA If YES, has PT been informed?: No Medical Necessity Reason Pt with a Central, PICC or Fol: Yes The following are medically ne: Central Line, Martines Catheter Subjective Patient reports: Other (Patient remains intubated and sedated heart rate labile) Review of Systems: Not Done Objective vital signs Vital Sign Date Time Temp Pulse Resp B/P (MAP) Pulse Ox O2 Delivery O2 Flow Rate FiO2 04/07/24 13:41 63 22 106/51 (69) 95 40 04/07/24 13:15 99.9 211.8 04/07/24 12:00 Mechanical Ventilator+ Total Intake and Output 04/06/24 04/06/24 04/07/24 15:00 23:00 07:00 Intake Total 860.348 ml 1056.584 ml 1099.062 ml Output Total 1850 ml 900 ml Balance 860.348 ml -793.416 ml 199.062 ml medications Current Medications Medications Dose Ordered Sig/Destini Route Start Time Stop Time Status Last Admin Dose Admin Heparin Sodium/ Dextrose 250 ml @ 18 mls/hr [id number] IV 03/31/24 23:45 UNV Midazolam HCl 50 ml @ 1 mls/hr Q24H IV 04/01/24 01:30 04/07/24 13:55 7 MLS/HR Vasopressin 20 units/Sodium Chloride 100 ml @ 9 mls/hr Q11H7M IV 04/01/24 01:30 04/07/24 09:10 9 MLS/HR Propofol 100 ml @ 4.5 mls/hr [id number] IV 04/01/24 02:30 04/02/24 15:01 4.5 MLS/HR Ondansetron HCl 4 mg Q4HP PRN IV 04/01/24 05:00 Acetaminophen 650 mg Q6HP PRN PO 04/01/24 05:00 04/05/24 02:09 650 MG Nitroglycerin 0.4 mg Q5MINP PRN SL 04/01/24 05:00 Morphine Sulfate 2 mg Q30M PRN IV 04/01/24 05:00 Albuterol 2.5 mg Q6HR NEB 04/01/24 06:00 04/07/24 12:12 2.5 MG Phenylephrine HCl 80 mg/Sodium Chloride 250 ml @ 7.5 mls/hr Q24H IV 04/01/24 10:45 04/07/24 07:06 29.063 MLS/HR Meropenem 50 ml @ 17 mls/hr Q12HR IV 04/02/24 10:00 04/07/24 09:58 17 MLS/HR Fentanyl Citrate 250 ml @ 2.5 mls/hr Q24H IV 04/02/24 11:15 04/06/24 22:23 10 MLS/HR Albumin Human 100 ml @ 100 mls/hr KIRAN PRN IV 04/03/24 07:00 Vancomycin HCl 0 ml @ 0 mls/hr UD IV 04/03/24 12:30 Norepinephrine Bitartrate 32 mg/ Sodium Chloride 250 ml @ 0.469 mls/ hr Q24H IV 04/04/24 06:30 Lidocaine HCl 500 ml @ 15 mls/hr Q24H IV 04/04/24 12:45 04/07/24 09:11 30 MLS/HR Amiodarone HCl 250 ml @ 16.667 mls/ hr Q15H IV 04/07/24 11:15 04/07/24 12:45 16.667 MLS/HR Examination: GENERAL:Abnormal, LUNGS:Abnormal, CVS:Abnormal, MSK:Abnormal laboratory and microbiology Laboratory Tests 04/07/24 03:23 Test 04/07/24 03:23 Range/Units Serum Glucose 135 H 74-106 mg/dL Microbiology Date/Time Source Procedure Growth Status 04/04/24 00:00 Voided Urine Urine Culture - Final Complete 04/01/24 15:30 Pleural Fluid Gram Stain - Final Complete 04/01/24 15:30 Aerobic Culture - Final Escherichia coli Complete 04/01/24 11:19 Nose MRSA Screen - Final Complete 04/01/24 07:18 Blood Blood Culture - Final Staphylococcus auricularis#2 Complete 03/31/24 22:55 Sputum Endotracheal Wash Gram Stain - Final Complete 03/31/24 22:55 Sputum Endotracheal Wash Respiratory Culture - Final Complete Problem List/Assessment/Plan Problem List/Assessment/Plan Acute kidney injury due to ATN/hemodynamic from shock, requiring intermittent hemodialysis Acute respiratory failure, intubated on ventilator NSTEMI septic shock empyema metabolic acidosis resolved b/l renal stones w/ hydronephrosis morbid obesity hyperkalemia afib RVR Recommendations Dialysis was not done yesterday because heart rate was in 190 range Today hemodialysis catheter did not work well dialysis not done--need new d ialysis catheter -nonoliguric for now /off diuretics Urology consult Plan discussed with: Other Dietary Evaluation Review Comments: 1) If GI is accessible consider Nepro 1.8 @ 30 ml/hr goal rate as tolerated with current rate of propofol on board. 2) If pt remains NPO >7 days consider TPN to meet at least 75% of estimated needs 3) If pt continues to receive HD, advance pt diet when medically feasible to a Renal Standard diet modified per CONSULTANT IN ERGONOMICS AND SAFETY recommendations 4) If HD is discontinued and GFR is within normal range, advance pt diet to a Regular diet, modified per CONSULTANT IN ERGONOMICS AND SAFETY recommendations 5)If HD is discontinued and GFR lies within STG 1-4, advance pt diet to a Renal Specific K2,lowphos,HECTOR,2gmNa,80gPro diet 6) If HD is discontinued and if GFR returns to normal levels then ALEXANDRA 1 pkt BID with meals may be considered to aid with wound healing 7) Continue current plan of care Expected Outcomes/Goals: 1) Pt to receive nutrition support within 7 days of NPO status 2) Pt labs to improve 3) Pt diet to advance 4) F/U in 2-3 days Critical Care Time (mins): 39 KAITLYN CENTENO MD Apr 07, 2024 14:05
--- NOTE | 2024-04-07 14:27 | ECG ---
[facility] Test Date: 2024-04-04 Test Time: 12:44:24 Pat Name: BROOKLYN WEBSTER Department: Room: [address] [place] [address] A Gender: F Tie Puller: : 1955 Requested By: KEVON BAILEY Order Number: [id number] Reading MD: Baldomero Munguia Measurements Intervals [place] Rate: 164 P: 0 LA: 0 QRS: -19 QRSD: 78 T: 149 QT: 246 QTc: 406 Interpretive Statements Atrial fibrillation with rapid ventricular response Inferior infarct , age undetermined Anterolateral infarct , possibly acute ACUTE FL Electronically Signed On 04-07-2024 16:21:48 PDT by Baldomero Munguia Please click the below link to view image of tracing.
--- NOTE | 2024-04-07 14:27 | ECG ---
[facility] Test Date: 2024-04-04 Test Time: 14:20:08 Pat Name: BROOKLYN WEBSTER Department: Room: [address] [place] [address] A Gender: F Tv News Director: : 1955 Requested By: DOMINIQUE LEE Order Number: [id number] Reading MD: Baldomero Munguia Measurements Intervals [place] Rate: 75 P: 31 LA: 108 QRS: -18 QRSD: 72 T: 144 QT: 446 QTc: 498 Interpretive Statements Sinus rhythm with short LA with premature atrial complexes Inferior infarct , age undetermined Anterolateral infarct , age undetermined Electronically Signed On 04-07-2024 16:21:52 PDT by Baldomero Munguia Please click the below link to view image of tracing.
--- NOTE | 2024-04-07 14:27 | ECG ---
[facility] Test Date: 2024-04-04 Test Time: 12:43:51 Pat Name: BROOKLYN WEBSTER Department: Room: [address] [place] [address] A Gender: F Gear And Spline Grinder: : 1955 Requested By: DOMINIQUE LEE Order Number: [id number] Reading MD: Baldomero Munguia Measurements Intervals [place] Rate: 151 P: 0 MA: 0 QRS: -14 QRSD: 68 T: 150 QT: 336 QTc: 532 Interpretive Statements Atrial fibrillation with rapid ventricular response Inferior infarct , age undetermined Anterolateral infarct , age undetermined Electronically Signed On 04-07-2024 16:21:32 PDT by Baldomero Munguia Please click the below link to view image of tracing.
--- NOTE | 2024-04-07 14:28 | ECG ---
[facility] Test Date: 2024-04-04 Test Time: 12:42:44 Pat Name: BROOKLYN WEBSTER Department: Room: [address] [place] [address] A Gender: F Geoscientist: : 1955 Requested By: DOMINIQUE LEE Order Number: [id number] Reading MD: Baldomero Munguia Measurements Intervals [place] Rate: 85 P: 53 WA: 108 QRS: -15 QRSD: 74 T: 152 QT: 406 QTc: 483 Interpretive Statements Sinus rhythm with short WA and premature ventricular complexes or fusion complexes Inferior infarct , age undetermined Anterolateral infarct , age undetermined Electronically Signed On 04-07-2024 16:13:27 PDT by Baldomero Munguia Please click the below link to view image of tracing.
--- NOTE | 2024-04-07 14:28 | ECG ---
[facility] Test Date: 2024-04-04 Test Time: 12:04:51 Pat Name: BROOKLYN WEBSTER Department: Room: [address] [place] [address] A Gender: F Shingle Cutter: MARGOTH : 1955 Requested By: DOMINIQUE LEE Order Number: [id number] Reading MD: Baldomero Munguia Measurements Intervals [place] Rate: 142 P: 0 TN: 0 QRS: -21 QRSD: 72 T: 161 QT: 344 QTc: 529 Interpretive Statements Atrial fibrillation with rapid ventricular response with premature ventricular or aberrantly conducted complexes Inferior infarct , age undetermined Anterolateral infarct , age undetermined Electronically Signed On 04-07-2024 16:12:49 PDT by Baldomero Munguia Please click the below link to view image of tracing.
--- NOTE | 2024-04-07 16:14 | DVHPN2 ---
Progress Note Date Seen: Apr 07, 2024 Has the PT tested + for MRSA If YES, has PT been informed?: No Medical Necessity Reason Pt with a Central, PICC or Fol: Yes The following are medically ne: Central Line, Martines Catheter Objective vital signs Vital Sign Date Time Temp Pulse Resp B/P (MAP) Pulse Ox O2 Delivery O2 Flow Rate FiO2 04/07/24 15:45 60 22 107/52 (70) 95 40 04/07/24 14:30 99.7 211.5 04/07/24 14:00 Mechanical Ventilator+ Total Intake and Output 04/06/24 04/06/24 04/07/24 15:00 23:00 07:00 Intake Total 860.348 ml 1056.584 ml 1099.062 ml Output Total 1850 ml 900 ml Balance 860.348 ml -793.416 ml 199.062 ml medications Current Medications Medications Dose Ordered Sig/Destini Route Start Time Stop Time Status Last Admin Dose Admin Heparin Sodium/ Dextrose 250 ml @ 18 mls/hr [id number] IV 03/31/24 23:45 UNV Midazolam HCl 50 ml @ 1 mls/hr Q24H IV 04/01/24 01:30 04/07/24 13:55 7 MLS/HR Vasopressin 20 units/Sodium Chloride 100 ml @ 9 mls/hr Q11H7M IV 04/01/24 01:30 04/07/24 09:10 9 MLS/HR Propofol 100 ml @ 4.5 mls/hr [id number] IV 04/01/24 02:30 04/02/24 15:01 4.5 MLS/HR Ondansetron HCl 4 mg Q4HP PRN IV 04/01/24 05:00 Acetaminophen 650 mg Q6HP PRN PO 04/01/24 05:00 04/05/24 02:09 650 MG Nitroglycerin 0.4 mg Q5MINP PRN SL 04/01/24 05:00 Morphine Sulfate 2 mg Q30M PRN IV 04/01/24 05:00 Albuterol 2.5 mg Q6HR NEB 04/01/24 06:00 04/07/24 12:12 2.5 MG Phenylephrine HCl 80 mg/Sodium Chloride 250 ml @ 7.5 mls/hr Q24H IV 04/01/24 10:45 04/07/24 07:06 29.063 MLS/HR Meropenem 50 ml @ 17 mls/hr Q12HR IV 04/02/24 10:00 04/07/24 09:58 17 MLS/HR Fentanyl Citrate 250 ml @ 2.5 mls/hr Q24H IV 04/02/24 11:15 04/06/24 22:23 10 MLS/HR Albumin Human 100 ml @ 100 mls/hr KIRAN PRN IV 04/03/24 07:00 Vancomycin HCl 0 ml @ 0 mls/hr UD IV 04/03/24 12:30 Norepinephrine Bitartrate 32 mg/ Sodium Chloride 250 ml @ 0.469 mls/ hr Q24H IV 04/04/24 06:30 Lidocaine HCl 500 ml @ 15 mls/hr Q24H IV 04/04/24 12:45 04/07/24 09:11 30 MLS/HR Amiodarone HCl 250 ml @ 16.667 mls/ hr Q15H IV 04/07/24 11:15 04/07/24 12:45 16.667 MLS/HR laboratory and microbiology Laboratory Tests 04/07/24 03:23 Test 04/07/24 03:23 Range/Units Serum Glucose 135 H 74-106 mg/dL Problem List/Assessment/Plan Problem List/Assessment/Plan 04/04/24I was just notified by anesthesiologists that they were evaluating the patient in the ICU and that she just became hemodynamically unstable and is being dialysed, the plan is to cardiovert her later this PM, I will cancel operation for today, it is also very likely that her sepsis is not due t othe pleural effusion but rather the hydronephrosis and superimposed urinary infection. 04/07/24 according to patient is now stable enough to undergo evacuation of empyema left chest, fluid dgrew enteric organisms, will attempt thoracoscopy but most likely will need a thoracotomy tomorrow AM.; I had previously explained the procedure and its attendant possible complications to pt's daughter Plan discussed with: Patient Dietary Evaluation Review Comments: 1) If GI is accessible consider Nepro 1.8 @ 30 ml/hr goal rate as tolerated with current rate of propofol on board. 2) If pt remains NPO >7 days consider TPN to meet at least 75% of estimated needs 3) If pt continues to receive HD, advance pt diet when medically feasible to a Renal Standard diet modified per SUPERINTENDENT NONSELLING recommendations 4) If HD is discontinued and GFR is within normal range, advance pt diet to a Regular diet, modified per SUPERINTENDENT NONSELLING recommendations 5)If HD is discontinued and GFR lies within STG 1-4, advance pt diet to a Renal Specific K2,lowphos,HECTOR,2gmNa,80gPro diet 6) If HD is discontinued and if GFR returns to normal levels then ALEXANDRA 1 pkt BID with meals may be considered to aid with wound healing 7) Continue current plan of care Expected Outcomes/Goals: 1) Pt to receive nutrition support within 7 days of NPO status 2) Pt labs to improve 3) Pt diet to advance 4) F/U in 2-3 days SANTY HAZEL MD Apr 07, 2024 16:14
[2024-04-08] VITALS (108 sets, daily range): BP systolic 84–121; BP diastolic 36–64; PULSE 60–76; RESP 10–25; TEMP 98–99.1; O2SAT 71–100
[2024-04-08 04:51] LABS: Anion Gap 9 (5-15); Carbon Dioxide 31 mmol/L (20-31); Chloride 103 mmol/L (98-107); Potassium 3.9 mmol/L (3.5-5.1); Sodium 143 mmol/L (136-145)
[2024-04-08 04:52] LABS: Calcium 7.2 mg/dL (8.7-10.4)
[2024-04-08 04:56] LABS: Glucose 93 mg/dL (74-106)
[2024-04-08 04:57] LABS: BUN/Creatinine Ratio 36.5 (10.0-20.0)
--- NOTE | 2024-04-08 05:05 | DVH ---
CHEST RADIOGRAPH Indication:right sided loculated effusion Technique: Single frontal view of the chest was obtained Comparison: XY CHEST PORTABLE on DOS: 04/07/24, XY CHEST XRAY 1 VIEW on DOS: 04/05/24, XY CHEST XRAY 1 VIEW on DOS: 04/04/24, XY CHEST XRAY 1 VIEW on DOS: 04/03/24, XY CHEST XRAY 1 VIEW on DOS: 04/02/24, XY CHEST PORTABLE on DOS: 04/07/24 FINDINGS: Lines and Tubes: The endotracheal tube terminates 5.0 cm above the mili. Right central venous cath eter terminates in the superior vena cava. Left central venous catheter terminates in the superior ve na cava. Lungs: Pulmonary congestion noted. Pleura: Right pleural effusion. Small left pleural effusion. No pneumothorax. Cardiomediastinal contours: Unremarkable Bones: No acute osseous abnormality. IMPRESSION: 1. Support lines and tubes in appropriate position. 2. Pulmonary vascular congestion. 3. Bilateral pleural effusions, right greater than left.
[2024-04-08 05:22] LABS: Blood Urea Nitrogen 88 mg/dL (9-23)
[2024-04-08 05:43] LABS: INR 1.07 (0.9-1.15); Partial Thromboplastin Time 22.8 SEC (24.5-34.5); Prothrombin Time 11.3 sec (9.3-11.8)
[2024-04-08 06:31] LABS: Base Excess 2.4 mmol/L (-2.0-3.0)
--- NOTE | 2024-04-08 06:39 | DVHPN2 ---
Progress Note - Dictate Date Seen: Apr 08, 2024 Has the PT tested + for MRSA If YES, has PT been informed?: No Medical Necessity Reason Pt with a Central, PICC or Fol: Yes The following are medically ne: Central Line, Martines Catheter vital signs Vital Sign Date Time Temp Pulse Resp B/P (MAP) Pulse Ox O2 Delivery O2 Flow Rate FiO2 04/08/24 06:30 99.0 65 22 100/56 (71) 97 210.2 04/08/24 06:00 40 04/08/24 06:00 Mechanical Ventilator+ Total Intake and Output 04/07/24 04/07/24 04/08/24 15:00 23:00 07:00 Intake Total 1047.319 ml 820.649 ml 211.834 ml Output Total 1150 ml 1300 ml Balance 1047.319 ml -329.351 ml -1088.166 ml medications Current Medications Medications Dose Ordered Sig/Destini Route Start Time Stop Time Status Last Admin Dose Admin Heparin Sodium/ Dextrose 250 ml @ 18 mls/hr [id number] IV 03/31/24 23:45 UNV Midazolam HCl 50 ml @ 1 mls/hr Q24H IV 04/01/24 01:30 04/08/24 04:29 7 MLS/HR Vasopressin 20 units/Sodium Chloride 100 ml @ 9 mls/hr Q11H7M IV 04/01/24 01:30 04/07/24 09:10 9 MLS/HR Ondansetron HCl 4 mg Q4HP PRN IV 04/01/24 05:00 Acetaminophen 650 mg Q6HP PRN PO 04/01/24 05:00 04/05/24 02:09 650 MG Nitroglycerin 0.4 mg Q5MINP PRN SL 04/01/24 05:00 Morphine Sulfate 2 mg Q30M PRN IV 04/01/24 05:00 Albuterol 2.5 mg Q6HR NEB 04/01/24 06:00 04/08/24 06:34 2.5 MG Phenylephrine HCl 80 mg/Sodium Chloride 250 ml @ 7.5 mls/hr Q24H IV 04/01/24 10:45 04/07/24 07:06 29.063 MLS/HR Meropenem 50 ml @ 17 mls/hr Q12HR IV 04/02/24 10:00 04/07/24 21:58 17 MLS/HR Fentanyl Citrate 250 ml @ 2.5 mls/hr Q24H IV 04/02/24 11:15 04/06/24 22:23 10 MLS/HR Albumin Human 100 ml @ 100 mls/hr KIRAN PRN IV 04/03/24 07:00 Vancomycin HCl 0 ml @ 0 mls/hr UD IV 04/03/24 12:30 Norepinephrine Bitartrate 32 mg/ Sodium Chloride 250 ml @ 0.469 mls/ hr Q24H IV 04/04/24 06:30 Lidocaine HCl 500 ml @ 15 mls/hr Q24H IV 04/04/24 12:45 04/07/24 09:11 30 MLS/HR Amiodarone HCl 250 ml @ 16.667 mls/ hr Q15H IV 04/07/24 11:15 04/08/24 04:29 16.667 MLS/HR laboratory and microbiology Laboratory Tests 04/08/24 03:40 Test 04/08/24 03:40 Range/Units Serum Glucose 93 74-106 mg/dL Assessment/Plan Patient is a 68-year-old female who was transferred from [facility]. She originally presented to [facility] for shortness of breath ongoing for few days. She is intubated and is being managed in ICU. Information was obtained by reviewing the chart and communicating with staff. Reportedly, she presented with respiratory failure to [facility] (oxygen saturation was 88%) and over there was found to have white blood cell count of 26.6, hemoglobin of 11.1, creatinine of 5.6, potassium of 5.6 and troponin of 1.01. She was given 365 mg of aspirin in [facility]. She did have an episode of atrial fibrillation with RVR with questionable ST changes and was transferred to our facility for further care. She was also found to have right pleural effusion in [facility] and was diagnosed with non-STEMI. Intubated, on vent support. On pressure support. Obese. Mucosa is pale. Scattered rhonchi in the lungs is heard. Cardiac: Regular, no thrill/gallop. Abdomen is soft with increased bowel sounds. There is no gross mass. Extremities reveal 1+ edema bilaterally. Available past medical history includes obesity and questionable history of psoriasis. WBC: 25.3 - 23.7 - 20.2 - 20.5 - 17.6 - 18.4 - 19.2 - 19.4 - 22.2 - 16.4 - 16.1 today's pending Hemoglobin: 10.8 - 9.1 - 8.5 - 8.4 - 8.8 - 8.6 - 8.9 - 8.1 - 8.4 - 8.1 - 8.1 today's pending D-dimer: 3.62 Creatinine: 5.67 - 5.78 - 5.41 - 4.92 - 4.55 - 4.68 - 4.71 - 4.64 - 4.48 - 3.83 - 3.66 - 3.65 - 3.25 - 2.82 - 2.41 Potassium: 6.0 - 6.3 - 6.1 - 6.0 - 5.3 - 5.0 - 4.9 - 4.8 - 5.1 - 5.4 - 4.9 - 5.3 - 4.8 - 4.5 - 4.7 - 4.3 - 4.2 - 3.9 Lactic acid: 3.3 - 3.4 - 2.3 - 2.5 - 2.5 - 2.7 - 2.4 - 2.5 - 3.1 TSH: 1.71 BNP: 274.69 - 1944.81 Troponin (high sensitive): 1469 - 1515 - 1684 Blood culture: positive Pleural fluid culture: E-coli Digoxin level: 2.09 Stool OB: positive Chest x-ray revealed: IMPRESSION: 1. Moderate right pleural effusion. 2. Cardiomegaly with mild pulmonary vascular congestion bilaterally. Repeat chest x-ray revealed: IMPRESSION: 1. Endotracheal tube and gastric tubes in place as described. 2. Right IJ central venous catheter projects over the lower SVC. 3. Mild cardiomegaly and prominence of the pulmonary vasculature. 4. Moderate to large right pleural effusion. Repeat chest x-ray revealed: IMPRESSION: Similar lung aeration with large right pleural effusion. No pneumothorax seen. Stable lines and tubes. Repeat chest x-ray revealed: IMPRESSION: Similar lung aeration with large right pleural effusion. No pneumothorax seen. Stable lines and tubes. Repeat chest xry revealed: Lines and tubes: ET in the mid thoracic trachea. NG crosses midline. Right CVC is stable. Left HD catheter projects over the mediastinum. Cardiomediastinal silhouette: Enlarged Pulmonary vasculature: prominent Lung expansion: low Lung airspace: patchy bilateral airspace opacity. Lung interstitium: normal Pleura: Similar large right effusion. Pneumothorax: no Bones: Unremarkable Other: no IMPRESSION: Lines and tubes, as above. Similar lung aeration bilaterally with a right pleural effusion and patchy airspace opacities. Repeat chest xry revealed: IMPRESSION: 1. Stable position of the support lines and tubes. 2. Interstitial and alveolar opacities. Repeat chest xry revealed: IMPRESSION: Unchanged multifocal airspace disease. Small to moderate right pleural effusion ; possibly loculated. Repeat chest xry revealed: IMPRESSION: Lines and tubes in satisfactory position. No significant interval change. Repeat chest xry revealed: IMPRESSION: 1. Support lines and tubes in appropriate position. 2. Pulmonary vascular congestion. 3. Bilateral pleural effusions, right greater than left. Repeat chest xry revealed: IMPRESSION: 1. Support lines and tubes in appropriate position. 2. Pulmonary vascular congestion. 3. Bilateral pleural effusions, right greater than left. CT scan of the chest/abdomen and pelvis revealed: IMPRESSION: 1. Moderate partially loculated right pleural effusion and consolidations in the right middle and lower lobes which could be pneumonia and/or atelectasis. 2. Mild cardiomegaly, mild interstitial pulmonary edema, and body wall edema. 3. There is a 1.9 cm calculus in the right UPJ with mild right hydronephrosis 4. There is a 2.6 cm somewhat staghorn appearing calculus in the left renal pelvis and UPJ causing mild predominantly mid to lower pole left hydronephrosis. Mild soft tissue stranding about the left renal pelvis which could be due to obstruction or superimposed infection. Correlate with urinalysis. 5. Partial duplication of the left renal collecting system without hydronephrosis in the upper pole. 6. Moderate right perinephric, right retroperitoneal, and bilateral extraperitoneal pelvis low-density fluid and very mild left retroperitoneal low-density fluid. This could be fluid related to bilateral renal obstructions and forniceal ruptures versus evolved retroperitoneal hematoma. This is suboptimally evaluated without intravenous contrast. 7. Fluid-filled small and large bowel loops which may be physiologic or related to enterocolitis and could be manifesting as loose stools and/or diarrhea. 8. Prominent endometrium measuring at least 2.8 cm, suboptimally evaluated by CT. Recommend characterization with nonemergent pelvic ultrasound if clinically indicated. 9. Mild hepatosplenomegaly. 10. Moderate three-vessel calcified coronary artery disease and mild aortic valve calcification. 11. Right IJ central venous catheter in place terminating in the low SVC. 12. Small soft tissue stranding in the right supraclavicular neck which could be blood products. 13. Endotracheal tube terminates above the mili. CT of the head revealed: IMPRESSION: 1. No acute intracranial abnormality. 2. Generalized cerebral volume loss and mild chronic microvascular ischemic change. 3. Partially imaged endotracheal tube. Chest ultrasound revealed: Findings/Impression: There is a trace bilateral pleural effusion. Thoracentesis: FINDINGS: Moderate size, complex and septated right pleural effusion. Aspirated fluid is thick and green in consistency. IMPRESSION: Right thoracentesis with 250 mL removed for laboratory analysis. EKG in [facility] revealed sinus tachycardia, poor R-wave progression old inferior wall MS. later EKG revealed atrial fibrillation with RVR. Telemetry reveals sinus rhythm, occasions of A-fib with RVR, SVT Echocardiogram revealed: Technically limited study secondary to poor acoustic windows. Left ventricle: Left ventricle was normal-sized. Mild concentric left ventricular hypertrophy was seen. LVEF was 55-60%. No gross wall motion abnormality was observed, but its presence can not be ruled out on the basis of this study. Right ventricle is mildly dilated with normal systolic function. Left atrium was mildly dilated. Right atrium was normal-sized. Aortic valve was trileaflet. There was no aortic insufficiency. There was aortic sclerosis with no stenosis. There was trivial mitral/tricuspid regurgitation. Pulmonary valve was not well visualized. Right ventricular systolic pressure was assessed around 48 mm Hg. There was no pericardial effusion. Patient is a 68-year-old morbidly obese patient who presented with respiratory failure to the hospital. Presentation is in favor of sepsis/septic shock. Multiorgan failure is observed. She is intubated and on vent support. She is on multiple pressor support. Life findings are in favor of acute renal failure. She also is known to have nephrolithiasis with history of staghorn calculi. Cardiac-ceballos, the patient did have episode of atrial fibrillation with RVR. She is found to have increased troponin. Presentation questions non-STEMI and possibly type 2 ischemia. Recognizing the presentation, ischemic workup should be postponed after clinical stability. Is being followed by Nephrology. Had episodes of tachyarrhythmia. Loaded with Digoxin. Positive cultures. Repeated a-fib with RVR. Septic shock Multiorgan failure Acute respiratory failure on vent support Acute renal failure Nephrolithiasis Staghorn calculi Hydronephrosis Abnormal troponin, non-STEMI Atrial fibrillation with RVR Paroxysmal AFib Acute heart failure, diastolic Hepatosplenomegaly Pleural effusion Status post thoracentesis Morbid obesity s/p Cardioversion for A-fib with RVR Cardiac suggestion for management: Manage in ICU Follow-up electrolytes and kidney function tests and correct abnormalities Pressure support to keep mean arterial pressure above 65 Amiodarone drip Heparin drip Daily aspirin (81 mg daily) Loaded with Digoxin IV metoprolol PRN for a-fib with RVR episodes. Sepsis workup and management as per primary team Cardiac ceballos, patient is elevated risk patient for urgent Thoracotomy procedure. You can consider proceeding with procedure under appropriate intra and post operative hemodynamic monitoring. If you choose to proceed with procedure, try to avoid hypotension. Evaluation and management of respiratory failure as per primary team/Pulmonary Evaluation and management of nephrolithiasis/hydronephrosis as per primary/Urology Evaluation and management of acute renal failure as per Nephrology Ischemic workup, after clinical stability Further evaluation and management as per above and clinical course. A total of 75 minutes was spent reviewing the patient record, examining the patient, making a diagnostic and therapeutic plan, discussing this plan with medical personnel, following up on diagnostic studies and following the patient for clinical stability excluding any and all procedures. At least 50% of this time was spent in direct, [id number] contact. Thank you for allowing me to participate in this patient's care. Further recommendations will depend on patient's clinical course. Please do not hesitate to contact me if you have any questions or concerns. This medical document was created using electronic medical record system with [employer] computerized dictation system. Although this document has been carefully reviewed, there may still be some phonetic and typographical errors. These areas are purely typographical due to the imperfection of the software programs, and do not reflect any compromise in the patient's medical care. Dietary Evaluation Review Comments: 1) If GI is accessible consider Nepro 1.8 @ 30 ml/hr goal rate as tolerated with current rate of propofol on board. 2) If pt remains NPO >7 days consider TPN to meet at least 75% of estimated needs 3) If pt continues to receive HD, advance pt diet when medically feasible to a Renal Standard diet modified per [employer] recommendations 4) If HD is discontinued and GFR is within normal range, advance pt diet to a Regular diet, modified per [employer] recommendations 5)If HD is discontinued and GFR lies within STG 1-4, advance pt diet to a Renal Specific K2,lowphos,HECTOR,2gmNa,80gPro diet 6) If HD is discontinued and if GFR returns to normal levels then ALEXANDRA 1 pkt BID with meals may be considered to aid with wound healing 7) Continue current plan of care Expected Outcomes/Goals: 1) Pt to receive nutrition support within 7 days of NPO status 2) Pt labs to improve 3) Pt diet to advance 4) F/U in 2-3 days Plan discussed with: Other (nurse) HERMINIO JOHNSON MD Apr 08, 2024 06:39
[2024-04-08] MEDS ORDERED: PHENYLEPHRINE HCL 10 MG/ML VL ONE (06:51)
[2024-04-08] MEDS ORDERED: EPINEPHrine HCL 1 MG/1 ML AMP ONE (06:51)
[2024-04-08] MEDS ORDERED: ROCURONIUM 10MG/ML 10ML VIAL IV ONE (06:56)
[2024-04-08 06:58] LABS: Hematocrit 25.3 % (36.0-46.0); Hemoglobin 8.2 g/dL (12.2-16.2); Mean Corpuscular Hgb Conc. 32.6 g/dL (32.0-36.0); Red Blood Cells 3.21 10^6/uL (4.0-5.20)
[2024-04-08 06:59] LABS: Mean Corpuscular Hemoglobin 25.7 pg (28.0-32.0); Mean Corpuscular Volume 78.9 fL (80.0-100.0); Platelet Count (auto) 357 10^3/uL (140-450); Red Cell Distribution Width 17.7 % (11.8-14.3); White Blood Cell 19.5 10^3/uL (4.4-10.8)
[2024-04-08 08:53] LABS: Band Neutrophils % (manual) 0; Basophils % (manual) 0 (0.0-2.0); Blast Cells 0; Metamyelocytes % 0; Myelocytes % 0; Promyelocytes % 0; Reactive Lymphocytes 0
[2024-04-08 08:54] LABS: Eosinophils % (manual) 2 (0-7); Lymphocytes % (manual) 18 (10.0-50.0); Monocytes % (manual) 2 (0-12); Platelet Estimate Adequate
--- NOTE | 2024-04-08 08:55 | DVHOP ---
DATE OF SURGERY: 04/08/2024 SURGEON: Juve Wade MD ANESTHESIA: General endotracheal. ANESTHESIOLOGIST: ____ PROCEDURE: Right thoracoscopy, evacuation of empyema, insertion of chest tube. DESCRIPTION OF PROCEDURE: Under general anesthesia with the patient on the operating room table with the right chest facing upward, lateral decubitus, down axilla protected on axillary roll, the body padded and secured with a beanbag. The right chest wall was prepped and draped in the fifth interspace posterolateral thoracoscopic incision was made through which a size 10, 0-degree viewing laparoscope was inserted. The lung appeared ____ . There was purulent material in the right chest with septations. The septations were divided with blunt dissection. The pus was aspirated. Approximately 200 mL of purulent material was aspirated. Cultures were obtained. Subsequently, a size 40 chest tube was placed into the chest cavity through which irrigation of the chest cavity with Betadine containing saline was accomplished. This was aspirated prior to terminating the procedure. The chest tube was secured with a 0 suture and connected to Pleur-evac suction. The patient remained in unchanged clinical condition at the termination of procedure. There was no evidence of bleeding at the termination of the procedure. She left the operating room following an accurate needle and sponge count on the ventilator to be returned to the ICU. The patient's daughter was thoroughly informed by phone at [phone]. Juve Wade MD PF TID: [id number] RECEIPT: [id number]
--- NOTE | 2024-04-08 09:30 | DVH ---
EXAM: XY CHEST PORTABLE Indication:post right thoracoscopy,chest tube insertion,evac.empyema Technique: Single frontal view of the chest was obtained Comparison: XY CHEST XRAY 1 VIEW on DOS: 04/08/24, XY CHEST PORTABLE on DOS: 04/07/24, XY CHEST XRAY 1 VIEW on DOS: 04/05/24, XY CHEST XRAY 1 VIEW on DOS: 04/04/24, XY CHEST XRAY 1 VIEW on DOS: 04/03/24 FINDINGS: Lines and Tubes: Interval placement of right chest tube which projects deep into the right hilar tony on. Endotracheal tube, right internal jugular central venous catheter and enteric tube are in stable position. Lungs: Patchy bilateral airspace opacities, right greater than left. Pleura: Small right pleural effusion. No pneumothorax. Cardiomediastinal contours: Unchanged. Bones: No acute osseous abnormality. IMPRESSION: Interval placement of right chest tube which projects deep into the right hilar region.
[2024-04-08] MEDS: MEROPENEM 1GM IVPB 50 ML IV SCH (10:21)
--- NOTE | 2024-04-08 11:01 | DVHPNRES ---
Progress Note Date Seen: Apr 08, 2024 Resident Creating Document: KEVON BLANTON RESIDENT Has the PT tested + for MRSA If YES, has PT been informed?: No Medical Necessity Reason Pt with a Central, PICC or Fol: Yes The following are medically ne: Central Line, Martines Catheter Subjective Review of Systems This is a 68-year-old female with unknown past medical history who was transferred from another facility ([facility]) for higher level of care. The patient initially was treated at that facility for shortness of breaths and back pain. The patient was transferred to our facility for higher level of care. The patient on arrival to the ED was tachypneic with severe respiratory failure, tachycardic rhythm consistent with atrial fibrillation and was saturating in the 70s. Initially placed on non-rebreather mask and then emergently intubated to protect airway. The patient was started on amiodarone drip 1 milligram/minute, phenylephrine, vasopressin and levophed. Patient initially was started on broad-spectrum antibiotics with vancomycin and Zosyn but for renal protection, since GFR was less than 10 and to have a more broad- spectrum coverage we added meropenem and discontinued Zosyn. To the ICU for further assessment and management. Patient seen and examined at bedside. Today, patient was taken to the OR for right thoracoscopy with evacuation of empyema and insertion of a chest tube. During the procedure 200 cc of purulent material was drained from loculated septations and then a size 40 chest tube was placed. Patient is still sedated on fentanyl and midazolam and is currently on mechanical ventilator on the same ventilatory parameters: VT 500, RR 22, FiO2 of 40%, PEEP 6.0, saturating 95%. A chest x-ray was taken after the procedure which showed significantly improvement compared to previous images. On physical examination there is still decreased breath sounds on bilateral lung amaya but now sounds on the right lung are diminished instead of absent. Pleur-evac is draining approximately 45 cc of serosanguineous fluid by this time. The patient is still on amiodarone drip, lidocaine drip, vancomycin and meropenem. We will start enteral nutrition we will try to come down on the lidocaine drip. ROS unable to obtain due to patient's current status intubation. Objective vital signs Vital Sign Date Time Temp Pulse Resp B/P (MAP) Pulse Ox O2 Delivery O2 Flow Rate FiO2 04/08/24 10:23 97/51 04/08/24 10:00 66 22 96 04/08/24 09:47 40 04/08/24 09:47 Mechanical Ventilator+ 04/08/24 09:45 99.0 99.0 Total Intake and Output 04/07/24 04/07/24 04/08/24 15:00 23:00 07:00 Intake Total 1047.319 ml 820.649 ml 715.919 ml Output Total 1150 ml 1300 ml Balance 1047.319 ml -329.351 ml -584.081 ml medications Current Medications Medications Dose Ordered Sig/Destini Route Start Time Stop Time Status Last Admin Dose Admin Heparin Sodium/ Dextrose 250 ml @ 18 mls/hr [id number] IV 03/31/24 23:45 UNV Midazolam HCl 50 ml @ 1 mls/hr Q24H IV 04/01/24 01:30 04/08/24 10:21 7 MLS/HR Vasopressin 20 units/Sodium Chloride 100 ml @ 9 mls/hr Q11H7M IV 04/01/24 01:30 04/07/24 09:10 9 MLS/HR Ondansetron HCl 4 mg Q4HP PRN IV 04/01/24 05:00 Acetaminophen 650 mg Q6HP PRN PO 04/01/24 05:00 04/05/24 02:09 650 MG Nitroglycerin 0.4 mg Q5MINP PRN SL 04/01/24 05:00 Morphine Sulfate 2 mg Q30M PRN IV 04/01/24 05:00 Albuterol 2.5 mg Q6HR NEB 04/01/24 06:00 04/08/24 06:34 2.5 MG Phenylephrine HCl 80 mg/Sodium Chloride 250 ml @ 7.5 mls/hr Q24H IV 04/01/24 10:45 04/07/24 07:06 29.063 MLS/HR Fentanyl Citrate 250 ml @ 2.5 mls/hr Q24H IV 04/02/24 11:15 04/06/24 22:23 10 MLS/HR Albumin Human 100 ml @ 100 mls/hr KIRAN PRN IV 04/03/24 07:00 Vancomycin HCl 0 ml @ 0 mls/hr UD IV 04/03/24 12:30 Norepinephrine Bitartrate 32 mg/ Sodium Chloride 250 ml @ 0.469 mls/ hr Q24H IV 04/04/24 06:30 04/08/24 08:45 0.938 MLS/HR Lidocaine HCl 500 ml @ 15 mls/hr Q24H IV 04/04/24 12:45 04/07/24 09:11 30 MLS/HR Amiodarone HCl 250 ml @ 16.667 mls/ hr Q15H IV 04/07/24 11:15 04/08/24 04:29 16.667 MLS/HR Meropenem 50 ml @ 17 mls/hr Q12HR IV 04/08/24 10:00 04/08/24 10:21 17 MLS/HR Examination Physical Examination General: Patient sedated on mechanical ventilator: VT 500, RR 22, FiO2 40%, PEEP 6, sat 94% HEENT: Normocephalic, atraumatic, moist mucous membranes Respiratory/pulmonary: There are no breath sounds audible in the right lung base and diminished breath sounds on the left lung as well. There is a right sided 40 sized chest tube draining aprox 45cc of serosanguineous fluid into the Pleur-evac. Cardiovascular: Heart rate and rhythm has been oscilating in afib rate control to RVR but is currently on sinus rhythm at this time. No murmurs at this time. Abdomen: Abdomen slightly distended, there is no pain to palpation in any of the abdominal quadrants, no palpable masses. Extremities: There is minimal swelling in the lower extremities bilaterally. Peripheral Pulses: 3+ Radial (R). 3+ Radial (L). 3+ Dorsalis pedis (R). 3+ Dorsalis pedis(L) Skin: There is dry skin in bilateral lower extremities with scales and excoriations. Neurological: Sedated, RASS -3 laboratory and microbiology Laboratory Tests 04/08/24 05:50 04/08/24 03:40 Test 04/08/24 03:40 Range/Units Serum Glucose 93 74-106 mg/dL Microbiology Date/Time Source Procedure Growth Status 04/04/24 00:00 Voided Urine Urine Culture - Final Complete 04/01/24 15:30 Pleural Fluid Gram Stain - Final Complete 04/01/24 15:30 Aerobic Culture - Final Escherichia coli Complete 04/01/24 11:19 Nose MRSA Screen - Final Complete 04/01/24 07:18 Blood Blood Culture - Final Staphylococcus auricularis#2 Complete 03/31/24 22:55 Sputum Endotracheal Wash Gram Stain - Final Complete 03/31/24 22:55 Sputum Endotracheal Wash Respiratory Culture - Final Complete Problem List/Assessment/Plan Problem List/Assessment/Plan Assessment/Plan Neurology Sedation -currently on midazolam and fentanyl Vasopressors -currently on Levophed, vasopressin, phenylephrine Respiratory Acute hypoxic respirtory failure likel due to right-sided pleural effusion and consolidation on right middle and lower lobes -initial chest x-ray showed severe right lower lobe opacities consistent with either consolidation or moderate to severe pleural effusion -CT of the chest and abdomen showed moderate partial loculated right pleural effusion and consolidation on right middle/lower lobes. Mild cardiomegaly and interstitial pulmonary edema. It also showed right hydronephrosis with 1.9 cm calculus into the right UPJ. There is also a 2.6 cm staghorn appearing calculus causing mid to lower pole left hydronephrosis. -the patient was initially started on Zosyn, vancomycin and cefepime. We discontinued Zosyn and cefepime. -we will switch linezolid back to vancomycin due to low platelet. -start renal dose of IV meropenem -Continue IV vanco and meropenem -consulted interventional radiologist which performed right-sided thoracentesis removing 250 mL of fluid which were sent to analysis. -currently on mechanical ventilator on the following parameters: VT 500, RR 22, FiO2 40%, PEEP 6, saturating 94%. -Surgical thoracoscopy was performed today on 04/08/2024 with evacuation of empyema and insertion of a chest tube draining approximately 200 cc of purulent material. Sepsis in the setting of loculated right-sided pleural effusion (EMPYEMA) and pneumonia -ordered blood cultures, sputum cultures and urine culture -currently on IV meropenem and linezolid -Will monitor plateletes closely -S/P right-sided thoracentesis removing 250 mL of fluids. -chest x-ray this morning showed still right-sided opacities and left opacities in the base of the lung. -Surgical thoracoscopy was performed today on 04/08/2024 with evacuation of empyema and insertion of a chest tube draining approximately 200 cc of purulent material. -Hold heparin drip Cardiology Acute on chronic systolic/diastolic heart failure -BNP came back elevated at 274.69 -initial EKG showed sinus tachycardia with PACs but no ST segment elevation or depression at that time -troponins came back elevated at 1469 and peaked up to 1684 -echocardiogram is showing an LVEF of 55-60% with increased RVSP at 48 mmHg and no pericardial effusion NSTEMI type II ? -troponins came back elevated at 1469 and peaked up to 1684 -Trend trops Atrial fibrilation with RVR -patient was placed on amiodarone drip 0.5 mg/min -CHADS VASC score HAS BLED score -heparin drip was hold for right-sided chest tube placement and david catheter placement -patient underwent atrial flutter with a heart rate of 180 to 200, cardiology decided to perform synchronized cardioversion and continue amiodarone drip. -S/P multiple synchronized cardioversions x6 -Will try to come out of lidocaine drip -patient was given two doses of digoxin but due to high levels of digoxin blood 3rd dose was held Nephrology Bilateral hydronephrosis -CT scan of the chest and abdomen showed right hydronephrosis with 1.9 cm calculus into the right UPJ, there was also a 2.6 cm staghorn appearing calculus causing mid to lower pole left hydronephrosis. -nephrology on board -consulted Urology for bilateral nephrostomy tube placement -David catheter placed on L IJ on 04/08/24 CHRISTOPH likely postobstructive nephropathy -most likely secondary to bilateral renal calculi -creatinine was 2.41 and BUN 88 -nephrology and urology on board -consulted Urology for bilateral nephrostomy tube placement, if therapy does not improve patient might need hemodialysis as last resource Hyperkalemia -potassium was 4.2 -monitor closely Lines: IJ right triple-lumen placed on 03/31/2024 Peripheral in right wrist placed on 03/31/2024 Peripheral in left forearm placed on 03/31/2024 David catheter placed in the left IJ placed on 04/02/2024 Goals of care discussed with medical team for >23min Critical time spent > 81min Plan discussed with Dr. Jones Plan discussed with: Other My Orders My Orders Orders - KEVON BLANTON RESIDENT Procedure Category Date Status Time Electrocardigram EKG 04/07/24 Resulted 14:12 Chest Xray 1 View XY 04/08/24 Resulted 04:00 Abg W/ Co-Ox RT 04/08/24 Logged 06:00 Meropenem 1gm Ivpb PHA 04/08/24 In Process (Merrem 1gm/ Ns) 10:00 Dietary Evaluation Review Comments: 1) If GI is accessible consider Nepro 1.8 @ 30 ml/hr goal rate as tolerated with current rate of propofol on board. 2) If pt remains NPO >7 days consider TPN to meet at least 75% of estimated needs 3) If pt continues to receive HD, advance pt diet when medically feasible to a Renal Standard diet modified per PRODUCTION SUPERVISOR [employer] SHIFT recommendations 4) If HD is discontinued and GFR is within normal range, advance pt diet to a Regular diet, modified per PRODUCTION SUPERVISOR [employer] SHIFT recommendations 5)If HD is discontinued and GFR lies within STG 1-4, advance pt diet to a Renal Specific K2,lowphos,HECTOR,2gmNa,80gPro diet 6) If HD is discontinued and if GFR returns to normal levels then ALEXANDRA 1 pkt BID with meals may be considered to aid with wound healing 7) Continue current plan of care Expected Outcomes/Goals: 1) Pt to receive nutrition support within 7 days of NPO status 2) Pt labs to improve 3) Pt diet to advance 4) F/U in 2-3 days Date of Service: Apr 08, 2024 Billing Provider: LAURIE JONES MD Common Visit Codes: [id number] CARE 30-74 MIN, [id number] CARE-EACH +30MIN KEVON BLANTON RESIDENT Apr 08, 2024 11:01 LAURIE JONES MD Apr 09, 2024 11:15
[2024-04-08] MEDS: FUROSEMIDE 40 MG/4 ML VIAL IV ONE (14:37)
--- NOTE | 2024-04-08 16:37 | DVHPN2 ---
Progress Note Date Seen: Apr 08, 2024 Has the PT tested + for MRSA If YES, has PT been informed?: No Medical Necessity Reason Pt with a Central, PICC or Fol: Yes The following are medically ne: Central Line, Martines Catheter Subjective Patient reports: Other ( noted events) Review of Systems: Deferred Objective vital signs Vital Sign Date Time Temp Pulse Resp B/P (MAP) Pulse Ox O2 Delivery O2 Flow Rate FiO2 04/08/24 16:25 75 04/08/24 16:25 40 04/08/24 16:25 22 96 Mechanical Ventilator+ 04/08/24 16:15 98.0 104/51 (68) 98.0 Total Intake and Output 04/07/24 04/07/24 04/08/24 15:00 23:00 07:00 Intake Total 1047.319 ml 820.649 ml 715.919 ml Output Total 1150 ml 1300 ml Balance 1047.319 ml -329.351 ml -584.081 ml medications Current Medications Medications Dose Ordered Sig/Destini Route Start Time Stop Time Status Last Admin Dose Admin Heparin Sodium/ Dextrose 250 ml @ 18 mls/hr [id number] IV 03/31/24 23:45 UNV Midazolam HCl 50 ml @ 1 mls/hr Q24H IV 04/01/24 01:30 04/08/24 10:21 7 MLS/HR Ondansetron HCl 4 mg Q4HP PRN IV 04/01/24 05:00 Acetaminophen 650 mg Q6HP PRN PO 04/01/24 05:00 04/05/24 02:09 650 MG Nitroglycerin 0.4 mg Q5MINP PRN SL 04/01/24 05:00 Morphine Sulfate 2 mg Q30M PRN IV 04/01/24 05:00 Albuterol 2.5 mg Q6HR NEB 04/01/24 06:00 04/08/24 11:59 2.5 MG Phenylephrine HCl 80 mg/Sodium Chloride 250 ml @ 7.5 mls/hr Q24H IV 04/01/24 10:45 04/08/24 12:15 33.75 MLS/HR Fentanyl Citrate 250 ml @ 2.5 mls/hr Q24H IV 04/02/24 11:15 04/06/24 22:23 10 MLS/HR Albumin Human 100 ml @ 100 mls/hr KIRAN PRN IV 04/03/24 07:00 Vancomycin HCl 0 ml @ 0 mls/hr UD IV 04/03/24 12:30 Norepinephrine Bitartrate 32 mg/ Sodium Chloride 250 ml @ 0.469 mls/ hr Q24H IV 04/04/24 06:30 04/08/24 08:45 0.938 MLS/HR Lidocaine HCl 500 ml @ 15 mls/hr Q24H IV 04/04/24 12:45 04/08/24 14:58 15 MLS/HR Amiodarone HCl 250 ml @ 16.667 mls/ hr Q15H IV 04/07/24 11:15 04/08/24 04:29 16.667 MLS/HR Meropenem 50 ml @ 17 mls/hr Q12HR IV 04/08/24 10:00 04/08/24 10:21 17 MLS/HR Furosemide 40 mg BIDD IV 04/08/24 22:00 Examination: GENERAL:Abnormal, LUNGS:Abnormal, MSK:Abnormal, NEURO:Abnormal laboratory and microbiology Laboratory Tests 04/08/24 05:50 04/08/24 03:40 Test 04/08/24 03:40 Range/Units Serum Glucose 93 74-106 mg/dL Microbiology Date/Time Source Procedure Growth Status 04/07/24 07:44 Urine - Martines [place] Urine Culture - Preliminary Resulted 04/01/24 15:30 Pleural Fluid Gram Stain - Final Complete 04/01/24 15:30 Aerobic Culture - Final Escherichia coli Complete 04/01/24 11:19 Nose MRSA Screen - Final Complete 04/01/24 07:18 Blood Blood Culture - Final Staphylococcus auricularis#2 Complete 03/31/24 22:55 Sputum Endotracheal Wash Gram Stain - Final Complete 03/31/24 22:55 Sputum Endotracheal Wash Respiratory Culture - Final Complete Problem List/Assessment/Plan Problem List/Assessment/Plan Acute kidney injury due to ATN/hemodynamic from shock, requiring intermittent hemodialysis Acute respiratory failure, intubated on ventilator Right thoracoscopy, evacuation of empyema, insertion of chest tube on 04/08 NSTEMI septic shock empyema metabolic acidosis resolved b/l renal stones w/ hydronephrosis--possible staghorn morbid obesity s/p hyperkalemia afib RVR Recommendations Renal function improving without dialysis Urine output has been better Continue Lasix IV b.i.d. Urology consult recommended once stable Monitor renal function closely Remains on vasopressors Plan discussed with: Other Dietary Evaluation Review Comments: 1) If GI is accessible consider Nepro 1.8 @ 30 ml/hr goal rate as tolerated with current rate of propofol on board. 2) If pt remains NPO >7 days consider TPN to meet at least 75% of estimated needs 3) If pt continues to receive HD, advance pt diet when medically feasible to a Renal Standard diet modified per MANAGER UNION recommendations 4) If HD is discontinued and GFR is within normal range, advance pt diet to a Regular diet, modified per MANAGER UNION recommendations 5)If HD is discontinued and GFR lies within STG 1-4, advance pt diet to a Renal Specific K2,lowphos,HECTOR,2gmNa,80gPro diet 6) If HD is discontinued and if GFR returns to normal levels then ALEXANDRA 1 pkt BID with meals may be considered to aid with wound healing 7) Continue current plan of care Expected Outcomes/Goals: 1) Pt to receive nutrition support within 7 days of NPO status 2) Pt labs to improve 3) Pt diet to advance 4) F/U in 2-3 days KAITLYN CENTENO MD Apr 08, 2024 16:37
[2024-04-08] MEDS: VANCOMYCIN 1GM/250ML 250 ML IV ONE (18:36)
[2024-04-08] MEDS: VANCOMYCIN 1GM/200ML PREMIX 200 ML IV ONE (19:57)
[2024-04-08] MEDS: FUROSEMIDE 40 MG/4 ML VIAL IV SCH (22:39)
[2024-04-09] VITALS (108 sets, daily range): BP systolic 83–134; BP diastolic 39–77; PULSE 64–97; RESP 11–25; TEMP 96.1–100.1; O2SAT 92–99
--- NOTE | 2024-04-09 04:51 | DVH ---
CHEST RADIOGRAPH Indication:reevaluate Technique: Single frontal view of the chest was obtained Comparison: XY CHEST PORTABLE on DOS: 04/08/24, XY CHEST XRAY 1 VIEW on DOS: 04/08/24, XY CHEST PORTABL E on DOS: 04/07/24, XY CHEST XRAY 1 VIEW on DOS: 04/05/24, XY CHEST XRAY 1 VIEW on DOS: 04/04/24, XY GERI ST PORTABLE on DOS: 04/08/24 FINDINGS: Lines and Tubes: right chest tube which projects deep into the right hilar region. Endotracheal tub e, right internal jugular central venous catheter and enteric tube are in stable position. Lungs: Patchy bilateral airspace opacities, right greater than left. Pleura: Small right pleural effusion. No pneumothorax. Cardiomediastinal contours: Unchanged. Bones: No acute osseous abnormality. IMPRESSION: No interval change
[2024-04-09 05:14] LABS: Alanine Aminotransferase 18 U/L (7-40); Albumin 3.1 g/dL (3.2-4.8); Alkaline Phosphatase 80 U/L (46-116); Anion Gap 12 (5-15); Aspartate Aminotransferase 49 U/L (13-40); BUN/Creatinine Ratio 31.6 (10.0-20.0); Calcium 7.3 mg/dL (8.7-10.4); Carbon Dioxide 26 mmol/L (20-31); Chloride 103 mmol/L (98-107); Glucose 117 mg/dL (74-106); Magnesium 2.1 mg/dL (1.6-2.6); Potassium 4.6 mmol/L (3.5-5.1); Sodium 141 mmol/L (136-145)
[2024-04-09 05:15] LABS: Bilirubin, Total 0.5 mg/dL (0.2-1.0); Total Protein 6.2 g/dL (5.7-8.2)
[2024-04-09 05:23] LABS: Blood Urea Nitrogen 74 mg/dL (9-23)
[2024-04-09 05:27] LABS: Basophils # (auto) 0.1 10 ^3/uL (0-0.2); Basophils % (auto) 0.7 % (0.0-2.0); Eosinophils # (auto) 0.2 10 ^3/uL (0-0.8); Eosinophils % (auto) 1.2 % (0.0-7.0); Hematocrit 25.5 % (36.0-46.0); Lymphocytes # (auto) 1.3 10 ^3/uL (0.4-5.4); Lymphocytes % (auto) 9.1 % (10.0-50.0); Mean Corpuscular Hemoglobin 24.9 pg (28.0-32.0); Mean Corpuscular Hgb Conc. 31.2 g/dL (32.0-36.0); Mean Corpuscular Volume 79.7 fL (80.0-100.0); Monocytes % (auto) 6.5 % (0.0-12.0); Neutrophils # (auto) 12.1 10 ^3/uL (1.6-8.6); Neutrophils % (auto) 82.5 % (37.0-80.0); Nucleated Red Blood Cells % 0.1 %; Platelet Count (auto) 314 10^3/uL (140-450); Red Cell Distribution Width 17.6 % (11.8-14.3); White Blood Cell 14.7 10^3/uL (4.4-10.8)
[2024-04-09 05:28] LABS: Lactic Acid w/Reflex 2.3 mmol/L (0.4-2.0)
--- NOTE | 2024-04-09 06:33 | DVHPNRES ---
Progress Note Date Seen: Apr 09, 2024 Resident Creating Document: KEVON BLANTON RESIDENT Has the PT tested + for MRSA If YES, has PT been informed?: No Medical Necessity Reason Pt with a Central, PICC or Fol: Yes The following are medically ne: Central Line, Martines Catheter Subjective Review of Systems This is a 68-year-old female with unknown past medical history who was transferred from another facility ([facility]) for higher level of care. The patient initially was treated at that facility for shortness of breaths and back pain. The patient was transferred to our facility for higher level of care. The patient on arrival to the ED was tachypneic with severe respiratory failure, tachycardic rhythm consistent with atrial fibrillation and was saturating in the 70s. Initially placed on non-rebreather mask and then emergently intubated to protect airway. The patient was started on amiodarone drip 1 milligram/minute, phenylephrine, vasopressin and levophed. Patient initially was started on broad-spectrum antibiotics with vancomycin and Zosyn but for renal protection, since GFR was less than 10 and to have a more broad- spectrum coverage we added meropenem and discontinued Zosyn. To the ICU for further assessment and management. Patient seen and examined at bedside. Yesterday, the patient underwent right thoracoscopy with evacuation of empyema and placement of right-sided chest tube. Chest tube has been draining approximately 200 cc in the last 24 hours. No major issues overnight. Today, lactic acid came back at 2.3 which has been decreasing compared to yesterday which was 3.1. 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 We will continue on amiodarone drip at 0.5 mg/min, Levophed 2mcg/min, we will continue on meropenem at this time. The patient is currently sedated on fentanyl and midazolam currently on mechanical ventilator on the following parameters: VT 500, RR 22, FiO2 40%, peep six, saturating 96%. Kidney function has been also slightly improving, today creatinine was 2.34 and BUN 74. ROS unable to obtain due to patient's current status, intubation. Objective vital signs Vital Sign Date Time Temp Pulse Resp B/P (MAP) Pulse Ox O2 Delivery O2 Flow Rate FiO2 04/09/24 04:30 74 22 121/69 (86) 95 04/09/24 04:20 40 04/09/24 04:00 100.1 100.1 04/09/24 04:00 Mechanical Ventilator+ Total Intake and Output 04/08/24 04/08/24 04/09/24 15:00 23:00 07:00 Intake Total 837.902 ml 666.840 ml 551.598 ml Output Total 2125 ml Balance 837.902 ml -1458.160 ml 551.598 ml medications Current Medications Medications Dose Ordered Sig/Destini Route Start Time Stop Time Status Last Admin Dose Admin Heparin Sodium/ Dextrose 250 ml @ 18 mls/hr [id number] IV 03/31/24 23:45 UNV Midazolam HCl 50 ml @ 1 mls/hr Q24H IV 04/01/24 01:30 04/09/24 04:42 7 MLS/HR Ondansetron HCl 4 mg Q4HP PRN IV 04/01/24 05:00 Acetaminophen 650 mg Q6HP PRN PO 04/01/24 05:00 04/05/24 02:09 650 MG Nitroglycerin 0.4 mg Q5MINP PRN SL 04/01/24 05:00 Morphine Sulfate 2 mg Q30M PRN IV 04/01/24 05:00 Albuterol 2.5 mg Q6HR NEB 04/01/24 06:00 04/09/24 00:57 2.5 MG Phenylephrine HCl 80 mg/Sodium Chloride 250 ml @ 7.5 mls/hr Q24H IV 04/01/24 10:45 04/08/24 18:44 33.75 MLS/HR Fentanyl Citrate 250 ml @ 2.5 mls/hr Q24H IV 04/02/24 11:15 04/09/24 01:19 10 MLS/HR Albumin Human 100 ml @ 100 mls/hr KIRAN PRN IV 04/03/24 07:00 Vancomycin HCl 0 ml @ 0 mls/hr UD IV 04/03/24 12:30 Norepinephrine Bitartrate 32 mg/ Sodium Chloride 250 ml @ 0.469 mls/ hr Q24H IV 04/04/24 06:30 04/08/24 17:08 0.938 MLS/HR Lidocaine HCl 500 ml @ 15 mls/hr Q24H IV 04/04/24 12:45 04/08/24 14:58 15 MLS/HR Amiodarone HCl 250 ml @ 16.667 mls/ hr Q15H IV 04/07/24 11:15 04/08/24 19:38 16.667 MLS/HR Meropenem 50 ml @ 17 mls/hr Q12HR IV 04/08/24 10:00 04/08/24 22:40 17 MLS/HR Furosemide 40 mg BIDD IV 04/08/24 22:00 04/08/24 22:39 40 MG Examination Physical Examination General: Patient sedated on mechanical ventilator: VT 500, RR 22, FiO2 40%, PEEP 6, sat 94% HEENT: Normocephalic, atraumatic, moist mucous membranes Respiratory/pulmonary: There are no breath sounds audible in the right lung base and diminished breath sounds on the left lung as well. There is a right sided 40 sized chest tube draining aprox 200cc of serosanguineous fluid into the Pleur-evac. Cardiovascular: Heart rate and rhythm has been oscilating in afib rate control to RVR but is currently on sinus rhythm at this time with occasional PVCs. No murmurs at this time. Abdomen: Abdomen slightly distended, there is no pain to palpation in any of the abdominal quadrants, no palpable masses. Extremities: There is minimal swelling in the lower extremities bilaterally. Peripheral Pulses: 3+ Radial (R). 3+ Radial (L). 3+ Dorsalis pedis (R). 3+ Dorsalis pedis(L) Skin: There is dry skin in bilateral lower extremities with scales and excoriations. Neurological: Sedated, RASS -3 laboratory and microbiology Laboratory Tests 04/09/24 05:13 04/09/24 04:11 Test 04/09/24 04:11 Range/Units Serum Glucose 117 H 74-106 mg/dL Microbiology Date/Time Source Procedure Growth Status 04/07/24 07:44 Urine - [place] Urine Culture - Preliminary Resulted 04/01/24 15:30 Pleural Fluid Gram Stain - Final Complete 04/01/24 15:30 Aerobic Culture - Final Escherichia coli Complete 04/01/24 11:19 Nose MRSA Screen - Final Complete 04/01/24 07:18 Blood Blood Culture - Final Staphylococcus auricularis#2 Complete 03/31/24 22:55 Sputum Endotracheal Wash Gram Stain - Final Complete 03/31/24 22:55 Sputum Endotracheal Wash Respiratory Culture - Final Complete Problem List/Assessment/Plan Problem List/Assessment/Plan Assessment/Plan Neurology Sedation -currently on midazolam and fentanyl Vasopressors -currently on Levophed, vasopressin, phenylephrine Respiratory Acute hypoxic respirtory failure likel due to right-sided pleural effusion and consolidation on right middle and lower lobes -initial chest x-ray showed severe right lower lobe opacities consistent with either consolidation or moderate to severe pleural effusion -CT of the chest and abdomen showed moderate partial loculated right pleural effusion and consolidation on right middle/lower lobes. Mild cardiomegaly and interstitial pulmonary edema. It also showed right hydronephrosis with 1.9 cm calculus into the right UPJ. There is also a 2.6 cm staghorn appearing calculus causing mid to lower pole left hydronephrosis. -the patient was initially started on Zosyn, vancomycin and cefepime. We discontinued Zosyn and cefepime. -we will switch linezolid back to vancomycin due to low platelet. -start renal dose of IV meropenem -Continue IV vanco and meropenem -consulted interventional radiologist which performed right-sided thoracentesis removing 250 mL of fluid which were sent to analysis. -currently on mechanical ventilator on the following parameters: VT 500, RR 22, FiO2 40%, PEEP 6, saturating 94%. -Surgical thoracoscopy was performed on 04/08/2024 with evacuation of empyema and insertion of a chest tube draining approximately 200 cc of purulent material. Sepsis in the setting of loculated right-sided pleural effusion (EMPYEMA) and pneumonia -ordered blood cultures, sputum cultures and urine culture -currently on IV meropenem and linezolid -Will monitor plateletes closely -S/P right-sided thoracentesis removing 250 mL of fluids. -chest x-ray this morning showed still right-sided opacities and left opacities in the base of the lung. -Surgical thoracoscopy was performed on 04/08/2024 with evacuation of empyema and insertion of a chest tube draining approximately 200 cc of purulent material. -Hold heparin drip Cardiology Acute on chronic systolic/diastolic heart failure -BNP came back elevated at 274.69 -initial EKG showed sinus tachycardia with PACs but no ST segment elevation or depression at that time -troponins came back elevated at 1469 and peaked up to 1684 -echocardiogram is showing an LVEF of 55-60% with increased RVSP at 48 mmHg and no pericardial effusion NSTEMI type II ? -troponins came back elevated at 1469 and peaked up to 1684 -Trend trops Atrial fibrilation with RVR -patient was placed on amiodarone drip 0.5 mg/min -CHADS VASC score HAS BLED score -heparin drip was hold for right-sided chest tube placement and david catheter placement -patient underwent atrial flutter with a heart rate of 180 to 200, cardiology decided to perform synchronized cardioversion and continue amiodarone drip. -S/P multiple synchronized cardioversions x6 -Stop lidocaine drip at this time -patient was given two doses of digoxin but due to high levels of digoxin blood 3rd dose was held Nephrology Bilateral hydronephrosis -CT scan of the chest and abdomen showed right hydronephrosis with 1.9 cm calculus into the right UPJ, there was also a 2.6 cm staghorn appearing calculus causing mid to lower pole left hydronephrosis. -nephrology on board -consulted Urology for bilateral nephrostomy tube placement -David catheter placed on L IJ on 04/08/24 CHRISTOPH likely postobstructive nephropathy -most likely secondary to bilateral renal calculi -creatinine was 2.34 and BUN 74 -nephrology and urology on board -consulted Urology for bilateral nephrostomy tube placement, if therapy does not improve patient might need hemodialysis as last resource Nutrition -Will start EN Nepro at 30cc/hr Hyperkalemia -potassium was 4.6 -monitor closely Lines: IJ right triple-lumen placed on 03/31/2024 (will remove Central line and place a PICC line) Peripheral in right wrist placed on 03/31/2024 Peripheral in left forearm placed on 03/31/2024 David catheter placed in the left IJ placed on 04/02/2024 Goals of care discussed with medical team for >23min Critical time spent > 61min Plan discussed with Dr. Jones Plan discussed with: Other My Orders My Orders Orders - KEVON BLANTON Procedure Category Date Status Time Meropenem 1gm Ivpb PHA 04/08/24 In Process (Merrem 1gm/ Ns) 10:00 Abg W/ Co-Ox RT 04/09/24 Logged 04:00 Chest Xray 1 View XY 04/09/24 Resulted 04:00 Dietary Evaluation Review Comments: 1) If GI is accessible consider Nepro 1.8 @ 30 ml/hr goal rate as tolerated with current rate of propofol on board. 2) If pt remains NPO >7 days consider TPN to meet at least 75% of estimated needs 3) If pt continues to receive HD, advance pt diet when medically feasible to a Renal Standard diet modified per [employer]GER recommendations 4) If HD is discontinued and GFR is within normal range, advance pt diet to a Regular diet, modified per [employer] SU[employer]GER recommendations 5)If HD is discontinued and GFR lies within STG 1-4, advance pt diet to a Renal Specific K2,lowphos,HECTOR,2gmNa,80gPro diet 6) If HD is discontinued and if GFR returns to normal levels then ALEXANDRA 1 pkt BID with meals may be considered to aid with wound healing 7) Continue current plan of care Expected Outcomes/Goals: 1) Pt to receive nutrition support within 7 days of NPO status 2) Pt labs to improve 3) Pt diet to advance 4) F/U in 2-3 days Date of Service: Apr 09, 2024 Billing Provider: LAURIE JONES MD Common Visit Codes: [id number] CARE 30-74 MIN KEVON BLANTON RESIDENT Apr 09, 2024 06:33 LAURIE JONES MD Apr 10, 2024 11:29
--- NOTE | 2024-04-09 06:37 | DVHPN2 ---
Progress Note - Dictate Date Seen: Apr 09, 2024 Has the PT tested + for MRSA If YES, has PT been informed?: No Medical Necessity Reason Pt with a Central, PICC or Fol: Yes The following are medically ne: Central Line, Martines Catheter vital signs Vital Sign Date Time Temp Pulse Resp B/P (MAP) Pulse Ox O2 Delivery O2 Flow Rate FiO2 04/09/24 04:30 74 22 121/69 (86) 95 04/09/24 04:20 40 04/09/24 04:00 100.1 100.1 04/09/24 04:00 Mechanical Ventilator+ Total Intake and Output 04/08/24 04/08/24 04/09/24 15:00 23:00 07:00 Intake Total 837.902 ml 666.840 ml 551.598 ml Output Total 2125 ml Balance 837.902 ml -1458.160 ml 551.598 ml medications Current Medications Medications Dose Ordered Sig/Destini Route Start Time Stop Time Status Last Admin Dose Admin Heparin Sodium/ Dextrose 250 ml @ 18 mls/hr [id number] IV 03/31/24 23:45 UNV Midazolam HCl 50 ml @ 1 mls/hr Q24H IV 04/01/24 01:30 04/09/24 04:42 7 MLS/HR Ondansetron HCl 4 mg Q4HP PRN IV 04/01/24 05:00 Acetaminophen 650 mg Q6HP PRN PO 04/01/24 05:00 04/05/24 02:09 650 MG Nitroglycerin 0.4 mg Q5MINP PRN SL 04/01/24 05:00 Morphine Sulfate 2 mg Q30M PRN IV 04/01/24 05:00 Albuterol 2.5 mg Q6HR NEB 04/01/24 06:00 04/09/24 00:57 2.5 MG Phenylephrine HCl 80 mg/Sodium Chloride 250 ml @ 7.5 mls/hr Q24H IV 04/01/24 10:45 04/08/24 18:44 33.75 MLS/HR Fentanyl Citrate 250 ml @ 2.5 mls/hr Q24H IV 04/02/24 11:15 04/09/24 01:19 10 MLS/HR Albumin Human 100 ml @ 100 mls/hr KIRAN PRN IV 04/03/24 07:00 Vancomycin HCl 0 ml @ 0 mls/hr UD IV 04/03/24 12:30 Norepinephrine Bitartrate 32 mg/ Sodium Chloride 250 ml @ 0.469 mls/ hr Q24H IV 04/04/24 06:30 04/08/24 17:08 0.938 MLS/HR Lidocaine HCl 500 ml @ 15 mls/hr Q24H IV 04/04/24 12:45 04/08/24 14:58 15 MLS/HR Amiodarone HCl 250 ml @ 16.667 mls/ hr Q15H IV 04/07/24 11:15 04/08/24 19:38 16.667 MLS/HR Meropenem 50 ml @ 17 mls/hr Q12HR IV 04/08/24 10:00 04/08/24 22:40 17 MLS/HR Furosemide 40 mg BIDD IV 04/08/24 22:00 04/08/24 22:39 40 MG laboratory and microbiology Laboratory Tests 04/09/24 05:13 04/09/24 04:11 Test 04/09/24 04:11 Range/Units Serum Glucose 117 H 74-106 mg/dL Assessment/Plan s/p thoracoscopy and chest tube placement Patient is a 68-year-old female who was transferred from [facility]. She originally presented to [facility] for shortness of breath ongoing for few days. She is intubated and is being managed in ICU. Information was obtained by reviewing the chart and communicating with staff. Reportedly, she presented with respiratory failure to [facility] (oxygen saturation was 88%) and over there was found to have white blood cell count of 26.6, hemoglobin of 11.1, creatinine of 5.6, potassium of 5.6 and troponin of 1.01. She was given 365 mg of aspirin in [facility]. She did have an episode of atrial fibrillation with RVR with questionable ST changes and was transferred to our facility for further care. She was also found to have right pleural effusion in [facility] and was diagnosed with non-STEMI. Intubated, on vent support. On pressure support. Obese. Mucosa is pale. Scattered rhonchi in the lungs is heard. Cardiac: Regular, no thrill/gallop. Abdomen is soft with increased bowel sounds. There is no gross mass. Extremities reveal 1+ edema bilaterally. Available past medical history includes obesity and questionable history of psoriasis. WBC: 25.3 - 23.7 - 20.2 - 20.5 - 17.6 - 18.4 - 19.2 - 19.4 - 22.2 - 16.4 - 16.1 - 19.5 - 14.7 Hemoglobin: 10.8 - 9.1 - 8.5 - 8.4 - 8.8 - 8.6 - 8.9 - 8.1 - 8.4 - 8.1 - 8.1 - 8.2 - 8.0 D-dimer: 3.62 Creatinine: 5.67 - 5.78 - 5.41 - 4.92 - 4.55 - 4.68 - 4.71 - 4.64 - 4.48 - 3.83 - 3.66 - 3.65 - 3.25 - 2.82 - 2.41 - 2.34 Potassium: 6.0 - 6.3 - 6.1 - 6.0 - 5.3 - 5.0 - 4.9 - 4.8 - 5.1 - 5.4 - 4.9 - 5.3 - 4.8 - 4.5 - 4.7 - 4.3 - 4.2 - 3.9 - 4.6 Lactic acid: 3.3 - 3.4 - 2.3 - 2.5 - 2.5 - 2.7 - 2.4 - 2.5 - 3.1 - 2.3 TSH: 1.71 BNP: 274.69 - 1944.81 Troponin (high sensitive): 1469 - 1515 - 1684 Blood culture: positive Pleural fluid culture: E-coli Digoxin level: 2.09 Stool OB: positive Chest x-ray revealed: IMPRESSION: 1. Moderate right pleural effusion. 2. Cardiomegaly with mild pulmonary vascular congestion bilaterally. Repeat chest x-ray revealed: IMPRESSION: 1. Endotracheal tube and gastric tubes in place as described. 2. Right IJ central venous catheter projects over the lower SVC. 3. Mild cardiomegaly and prominence of the pulmonary vasculature. 4. Moderate to large right pleural effusion. Repeat chest x-ray revealed: IMPRESSION: Similar lung aeration with large right pleural effusion. No pneumothorax seen. Stable lines and tubes. Repeat chest x-ray revealed: IMPRESSION: Similar lung aeration with large right pleural effusion. No pneumothorax seen. Stable lines and tubes. Repeat chest xry revealed: Lines and tubes: ET in the mid thoracic trachea. NG crosses midline. Right CVC is stable. Left HD catheter projects over the mediastinum. Cardiomediastinal silhouette: Enlarged Pulmonary vasculature: prominent Lung expansion: low Lung airspace: patchy bilateral airspace opacity. Lung interstitium: normal Pleura: Similar large right effusion. Pneumothorax: no Bones: Unremarkable Other: no IMPRESSION: Lines and tubes, as above. Similar lung aeration bilaterally with a right pleural effusion and patchy airspace opacities. Repeat chest xry revealed: IMPRESSION: 1. Stable position of the support lines and tubes. 2. Interstitial and alveolar opacities. Repeat chest xry revealed: IMPRESSION: Unchanged multifocal airspace disease. Small to moderate right pleural effusion ; possibly loculated. Repeat chest xry revealed: IMPRESSION: Lines and tubes in satisfactory position. No significant interval change. Repeat chest xry revealed: IMPRESSION: 1. Support lines and tubes in appropriate position. 2. Pulmonary vascular congestion. 3. Bilateral pleural effusions, right greater than left. Repeat chest xry revealed: IMPRESSION: 1. Support lines and tubes in appropriate position. 2. Pulmonary vascular congestion. 3. Bilateral pleural effusions, right greater than left. Repeat chest xry revealed: IMPRESSION: Interval placement of right chest tube which projects deep into the right hilar region. Repeat chest xry revealed: IMPRESSION: No interval change CT scan of the chest/abdomen and pelvis revealed: IMPRESSION: 1. Moderate partially loculated right pleural effusion and consolidations in the right middle and lower lobes which could be pneumonia and/or atelectasis. 2. Mild cardiomegaly, mild interstitial pulmonary edema, and body wall edema. 3. There is a 1.9 cm calculus in the right UPJ with mild right hydronephrosis 4. There is a 2.6 cm somewhat staghorn appearing calculus in the left renal pelvis and UPJ causing mild predominantly mid to lower pole left hydronephrosis. Mild soft tissue stranding about the left renal pelvis which could be due to obstruction or superimposed infection. Correlate with urinalysis. 5. Partial duplication of the left renal collecting system without hydronephrosis in the upper pole. 6. Moderate right perinephric, right retroperitoneal, and bilateral extraperitoneal pelvis low-density fluid and very mild left retroperitoneal low-density fluid. This could be fluid related to bilateral renal obstructions and forniceal ruptures versus evolved retroperitoneal hematoma. This is suboptimally evaluated without intravenous contrast. 7. Fluid-filled small and large bowel loops which may be physiologic or related to enterocolitis and could be manifesting as loose stools and/or diarrhea. 8. Prominent endometrium measuring at least 2.8 cm, suboptimally evaluated by CT. Recommend characterization with nonemergent pelvic ultrasound if clinically indicated. 9. Mild hepatosplenomegaly. 10. Moderate three-vessel calcified coronary artery disease and mild aortic valve calcification. 11. Right IJ central venous catheter in place terminating in the low SVC. 12. Small soft tissue stranding in the right supraclavicular neck which could be blood products. 13. Endotracheal tube terminates above the mili. CT of the head revealed: IMPRESSION: 1. No acute intracranial abnormality. 2. Generalized cerebral volume loss and mild chronic microvascular ischemic change. 3. Partially imaged endotracheal tube. Chest ultrasound revealed: Findings/Impression: There is a trace bilateral pleural effusion. Thoracentesis: FINDINGS: Moderate size, complex and septated right pleural effusion. Aspirated fluid is thick and green in consistency. IMPRESSION: Right thoracentesis with 250 mL removed for laboratory analysis. EKG in [facility] revealed sinus tachycardia, poor R-wave progression old inferior wall OH. later EKG revealed atrial fibrillation with RVR. Telemetry reveals sinus rhythm, occasions of A-fib with RVR, SVT Echocardiogram revealed: Technically limited study secondary to poor acoustic windows. Left ventricle: Left ventricle was normal-sized. Mild concentric left ventricular hypertrophy was seen. LVEF was 55-60%. No gross wall motion abnormality was observed, but its presence can not be ruled out on the basis of this study. Right ventricle is mildly dilated with normal systolic function. Left atrium was mildly dilated. Right atrium was normal-sized. Aortic valve was trileaflet. There was no aortic insufficiency. There was aortic sclerosis with no stenosis. There was trivial mitral/tricuspid regurgitation. Pulmonary valve was not well visualized. Right ventricular systolic pressure was assessed around 48 mm Hg. There was no pericardial effusion. Patient is a 68-year-old morbidly obese patient who presented with respiratory failure to the hospital. Presentation is in favor of sepsis/septic shock. Multiorgan failure is observed. She is intubated and on vent support. She is on multiple pressor support. Life findings are in favor of acute renal failure. She also is known to have nephrolithiasis with history of staghorn calculi. Cardiac-ceballos, the patient did have episode of atrial fibrillation with RVR. She is found to have increased troponin. Presentation questions non-STEMI and possibly type 2 ischemia. Recognizing the presentation, ischemic workup should be postponed after clinical stability. Is being followed by Nephrology. Had episodes of tachyarrhythmia. Loaded with Digoxin. Positive cultures. Repeated a-fib with RVR. Septic shock Multiorgan failure Acute respiratory failure on vent support Acute renal failure Nephrolithiasis Staghorn calculi Hydronephrosis Abnormal troponin, non-STEMI Atrial fibrillation with RVR Paroxysmal AFib Acute heart failure, diastolic Hepatosplenomegaly Pleural effusion Status post thoracentesis Morbid obesity s/p Cardioversion for A-fib with RVR s/p thoracoscopy and chest tube placement Cardiac suggestion for management: Manage in ICU Follow-up electrolytes and kidney function tests and correct abnormalities Pressure support to keep mean arterial pressure above 65 Amiodarone drip Heparin drip Daily aspirin (81 mg daily) Loaded with Digoxin Stop Lidocaine drip s/p thoracoscopy and chest tube placement IV metoprolol PRN for a-fib with RVR episodes. Sepsis workup and management as per primary team Cardiac ceballos, patient is elevated risk patient for urgent Thoracotomy procedure. You can consider proceeding with procedure under appropriate intra and post operative hemodynamic monitoring. If you choose to proceed with procedure, try to avoid hypotension. Evaluation and management of respiratory failure as per primary team/Pulmonary Evaluation and management of nephrolithiasis/hydronephrosis as per primary/Urology Evaluation and management of acute renal failure as per Nephrology Ischemic workup, after clinical stability Further evaluation and management as per above and clinical course. A total of 75 minutes was spent reviewing the patient record, examining the patient, making a diagnostic and therapeutic plan, discussing this plan with medical personnel, following up on diagnostic studies and following the patient for clinical stability excluding any and all procedures. At least 50% of this time was spent in direct, [id number] contact. Thank you for allowing me to participate in this patient's care. Further recommendations will depend on patient's clinical course. Please do not hesitate to contact me if you have any questions or concerns. This medical document was created using electronic medical record system with [employer] dictation system. Although this document has been carefully reviewed, there may still be some phonetic and typographical errors. These areas are purely typographical due to the imperfection of the software programs, and do not reflect any compromise in the patient's medical care. Dietary Evaluation Review Comments: 1) If GI is accessible consider Nepro 1.8 @ 30 ml/hr goal rate as tolerated with current rate of propofol on board. 2) If pt remains NPO >7 days consider TPN to meet at least 75% of estimated needs 3) If pt continues to receive HD, advance pt diet when medically feasible to a Renal Standard diet modified per [facility] SPECIALIST recommendations 4) If HD is discontinued and GFR is within normal range, advance pt diet to a Regular diet, modified per [facility]P SPECIALIST recommendations 5)If HD is discontinued and GFR lies within STG 1-4, advance pt diet to a Renal Specific K2,lowphos,HECTOR,2gmNa,80gPro diet 6) If HD is discontinued and if GFR returns to normal levels then ALEXANDRA 1 pkt BID with meals may be considered to aid with wound healing 7) Continue current plan of care Expected Outcomes/Goals: 1) Pt to receive nutrition support within 7 days of NPO status 2) Pt labs to improve 3) Pt diet to advance 4) F/U in 2-3 days Plan discussed with: Other (nurse) HERMINIO JOHNSON MD Apr 09, 2024 06:37
[2024-04-09 09:27] LABS: Base Excess 3.8 mmol/L (-2.0-3.0)
--- NOTE | 2024-04-09 11:18 | ECG ---
[facility] Test Date: 2024-04-04 Test Time: 04:57:15 Pat Name: BROOKLYN WEBSTER Department: Room: [address] [place] [address] A Gender: F Science Liaison: : 1955 Requested By: HERMINIO JOHNSON Order Number: [id number] Reading MD: Baldomero Munguia Measurements Intervals [place] Rate: 138 P: 0 MI: 0 QRS: -24 QRSD: 82 T: 161 QT: 380 QTc: 575 Interpretive Statements Atrial fibrillation with rapid ventricular response with premature ventricular or aberrantly conducted complexes Lateral infarct , age undetermined Inferior infarct , age undetermined T wave abnormality, consider anterior ischemia or digitalis effect Electronically Signed On 04-09-2024 22:00:30 PDT by Baldomero Munguia Please click the below link to view image of tracing.
--- NOTE | 2024-04-09 11:18 | ECG ---
[facility] Test Date: 2024-04-04 Test Time: 05:48:51 Pat Name: BROOKLYN WEBSTER Department: Room: [address] [place] [address] A Gender: F Special Education Resource Room Teacher: : 1955 Requested By: HERMINIO JOHNSON Order Number: [id number] Reading MD: Baldomero Munguia Measurements Intervals [place] Rate: 160 P: 0 CT: 0 QRS: -25 QRSD: 78 T: 161 QT: 304 QTc: 496 Interpretive Statements Undetermined rhythm Lateral infarct , age undetermined Inferior infarct , age undetermined T wave abnormality, consider anterior ischemia Electronically Signed On 04-09-2024 22:00:32 PDT by Baldomero Munguia Please click the below link to view image of tracing.
--- NOTE | 2024-04-09 11:19 | ECG ---
[facility] Test Date: 2024-04-04 Test Time: 04:50:37 Pat Name: BROOKLYN WEBSTER Department: Room: [address] [place] [address] A Gender: F Loading Checker: : 1955 Requested By: HERMINIO JOHNSON Order Number: [id number] Reading MD: Baldomero Munguia Measurements Intervals [place] Rate: 142 P: 0 ND: 0 QRS: -16 QRSD: 76 T: 139 QT: 386 QTc: 593 Interpretive Statements Atrial fibrillation with rapid ventricular response Lateral infarct , age undetermined Inferior infarct , age undetermined T wave abnormality, consider anterior ischemia or digitalis effect Electronically Signed On 04-09-2024 22:00:29 PDT by Baldomero Munguia Please click the below link to view image of tracing.
--- NOTE | 2024-04-09 11:19 | ECG ---
[facility] Test Date: 2024-04-04 Test Time: 04:49:03 Pat Name: BROOKLYN WEBSTER Department: Room: [address] [place] [address] A Gender: F Director Funeral: : 1955 Requested By: HERMINIO JOHNSON Order Number: [id number] Reading MD: Baldomero Munguia Measurements Intervals [place] Rate: 146 P: 0 [place]: 0 QRS: -19 QRSD: 80 T: 168 QT: 376 QTc: 585 Interpretive Statements Atrial fibrillation with rapid ventricular response with premature ventricular or aberrantly conducted complexes Lateral infarct , age undetermined Inferior infarct , age undetermined T wave abnormality, consider anterior ischemia or digitalis effect Electronically Signed On 04-09-2024 22:00:27 PDT by Baldomero Munguia Please click the below link to view image of tracing.
--- NOTE | 2024-04-09 12:58 | ECG ---
[facility] Test Date: 2024-04-03 Test Time: 23:03:06 Pat Name: BROOKLYN WEBSTER Department: Room: [address] [place] [address] A Gender: F Fruit Sprayer: : 1955 Requested By: HERMINIO JOHNSON Order Number: [id number] Reading MD: Baldomero Munguia Measurements Intervals [place] Rate: 78 P: 34 VA: 110 QRS: -29 QRSD: 82 T: 176 QT: 470 QTc: 535 Interpretive Statements Sinus rhythm with short VA Inferior infarct , age undetermined Anterolateral infarct , age undetermined Prolonged QT Electronically Signed On 04-09-2024 22:00:24 PDT by Baldomero Munguia Please click the below link to view image of tracing.
--- NOTE | 2024-04-09 12:58 | ECG ---
[facility] Test Date: 2024-04-03 Test Time: 23:01:42 Pat Name: BROKOLYN WEBSTER Department: Room: [address] [place] [address] A Gender: F Crm Consultant: : 1955 Requested By: HERMINIO JOHNSON Order Number: [id number] Reading MD: Baldomero Munguia Measurements Intervals [place] Rate: 148 P: 0 RI: 0 QRS: -22 QRSD: 84 T: 156 QT: 338 QTc: 530 Interpretive Statements Atrial fibrillation with rapid ventricular response Inferior infarct , age undetermined Anterolateral infarct , age undetermined Electronically Signed On 04-09-2024 22:00:24 PDT by Baldomero Munguia Please click the below link to view image of tracing.
--- NOTE | 2024-04-09 12:58 | ECG ---
[facility] Test Date: 2024-04-03 Test Time: 23:05:59 Pat Name: BROOKLYN WEBSTER Department: Room: [address] [place] [address] A Gender: F Benzene Washer: : 1955 Requested By: HERMINIO JOHNSON Order Number: [id number] Reading MD: Baldomero Munguia Measurements Intervals [place] Rate: 161 P: 0 NV: 0 QRS: -25 QRSD: 86 T: 158 QT: 324 QTc: 530 Interpretive Statements Undetermined rhythm Inferior infarct , age undetermined Anterolateral infarct , age undetermined Electronically Signed On 04-09-2024 22:00:25 PDT by Baldomero Munguia Please click the below link to view image of tracing.
--- NOTE | 2024-04-09 12:58 | ECG ---
[facility] Test Date: 2024-04-04 Test Time: 01:55:45 Pat Name: BROOKLYN WEBSTER Department: Room: [address] [place] [address] A Gender: F Protective Services Social Worker: : 1955 Requested By: HERMINIO JOHNSON Order Number: [id number] Reading MD: Baldomero Munguia Measurements Intervals [place] Rate: 71 P: 0 [place]: 116 QRS: -24 QRSD: 80 T: 168 QT: 506 QTc: 549 Interpretive Statements Normal sinus rhythm Inferior infarct , age undetermined Anterolateral infarct , age undetermined Prolonged QT Electronically Signed On 04-09-2024 22:00:26 PDT by Baldomero Munguia Please click the below link to view image of tracing.
--- NOTE | 2024-04-09 12:58 | ECG ---
[facility] Test Date: 2024-04-03 Test Time: 23:05:18 Pat Name: BROOKLYN WEBSTER Department: Room: [address] [place] [address] A Gender: F Van Driver: : 1955 Requested By: HERMINIO JOHNSON Order Number: [id number] Reading MD: Baldomero Munguia Measurements Intervals [place] Rate: 157 P: 0 IN: 0 QRS: -28 QRSD: 82 T: 179 QT: 342 QTc: 552 Interpretive Statements Poor data quality, interpretation may be adversely affected Atrial fibrillation with rapid ventricular response with premature ventricular or aberrantly conducted complexes Inferior infarct , age undetermined Anterolateral infarct , age undetermined Electronically Signed On 04-09-2024 22:00:25 PDT by Baldomero Munguia Please click the below link to view image of tracing.
[2024-04-09 13:46] LABS: INR 1.08 (0.9-1.15); Prothrombin Time 11.4 sec (9.3-11.8)
--- NOTE | 2024-04-09 19:16 | DVH ---
CHEST RADIOGRAPH Indication:PICC LINE PLACEMENT STAT PLEASE Technique: Single frontal view of the chest was obtained Comparison: XY CHEST XRAY 1 VIEW on DOS: 04/09/24, XY CHEST PORTABLE on DOS: 04/08/24, XY CHEST XRAY 1 VIEW on DOS: 04/08/24, XY CHEST PORTABLE on DOS: 04/07/24, XY CHEST XRAY 1 VIEW on DOS: 04/05/24 Findings/IMPRESSION: Right IJ CVC terminating in the SVC. Endotracheal tube projected 5 cm superior t o the mili. Enteric tube projected below the GE junction. Right-sided PICC projects terminating ne ar the cavoatrial junction. Small bilateral pleural effusions and/or atelectasis with superimposed in fection not excluded.
[2024-04-09] MEDS: VANCOMYCIN 500 MG in D5W 5% 100 ML IV ONE (19:45)
--- NOTE | 2024-04-09 21:31 | DVHPN2 ---
Progress Note Date Seen: Apr 09, 2024 Has the PT tested + for MRSA If YES, has PT been informed?: No Medical Necessity Reason Pt with a Central, PICC or Fol: Yes The following are medically ne: Central Line, Martines Catheter Subjective Patient reports: Other (events noted) Review of Systems: Deferred Objective vital signs Vital Sign Date Time Temp Pulse Resp B/P (MAP) Pulse Ox O2 Delivery O2 Flow Rate FiO2 04/09/24 20:12 74 22 90/45 (60) 95 40 04/09/24 19:30 96.3 205.3 04/09/24 18:00 Mechanical Ventilator+ Total Intake and Output 04/08/24 04/08/24 04/09/24 15:00 23:00 07:00 Intake Total 837.902 ml 666.840 ml 705.308 ml Output Total 2125 ml 1185 ml Balance 837.902 ml -1458.160 ml -479.692 ml medications Current Medications Medications Dose Ordered Sig/Destini Route Start Time Stop Time Status Last Admin Dose Admin Heparin Sodium/ Dextrose 250 ml @ 18 mls/hr [id number] IV 03/31/24 23:45 UNV Midazolam HCl 50 ml @ 1 mls/hr Q24H IV 04/01/24 01:30 04/09/24 10:45 8 MLS/HR Ondansetron HCl 4 mg Q4HP PRN IV 04/01/24 05:00 Acetaminophen 650 mg Q6HP PRN PO 04/01/24 05:00 04/05/24 02:09 650 MG Nitroglycerin 0.4 mg Q5MINP PRN SL 04/01/24 05:00 Morphine Sulfate 2 mg Q30M PRN IV 04/01/24 05:00 Albuterol 2.5 mg Q6HR NEB 04/01/24 06:00 04/09/24 18:50 2.5 MG Phenylephrine HCl 80 mg/Sodium Chloride 250 ml @ 7.5 mls/hr Q24H IV 04/01/24 10:45 04/09/24 16:38 29.063 MLS/HR Fentanyl Citrate 250 ml @ 2.5 mls/hr Q24H IV 04/02/24 11:15 04/09/24 01:19 10 MLS/HR Albumin Human 100 ml @ 100 mls/hr KIRAN PRN IV 04/03/24 07:00 Vancomycin HCl 0 ml @ 0 mls/hr UD IV 04/03/24 12:30 Norepinephrine Bitartrate 32 mg/ Sodium Chloride 250 ml @ 0.469 mls/ hr Q24H IV 04/04/24 06:30 04/08/24 17:08 0.938 MLS/HR Amiodarone HCl 250 ml @ 16.667 mls/ hr Q15H IV 04/07/24 11:15 04/09/24 11:16 16.667 MLS/HR Meropenem 50 ml @ 17 mls/hr Q12HR IV 04/08/24 10:00 04/09/24 10:43 17 MLS/HR Furosemide 40 mg BIDD IV 04/08/24 22:00 04/09/24 18:05 40 MG Enteral Nutritional Formula 1,000 ml 20ML/HR GT 04/09/24 11:15 Sodium Chloride 10 ml QSHIFT@10,22 IV 04/09/24 22:00 Examination: NEURO:Abnormal laboratory and microbiology Laboratory Tests 04/09/24 05:13 04/09/24 04:11 Test 04/09/24 04:11 Range/Units Serum Glucose 117 H 74-106 mg/dL Microbiology Date/Time Source Procedure Growth Status 04/08/24 08:02 Thoracic Fluid Gram Stain - Final Resulted 04/08/24 08:02 Thoracic Fluid Anaerobic Culture - Preliminary Resulted 04/08/24 08:02 Thoracic Fluid Aerobic Culture - Preliminary Resulted 04/07/24 07:44 Urine - Martines [place] Urine Culture - Preliminary Resulted 04/01/24 11:19 Nose MRSA Screen - Final Complete 04/01/24 07:18 Blood Blood Culture - Final Staphylococcus auricularis#2 Complete 03/31/24 22:55 Sputum Endotracheal Wash Gram Stain - Final Complete 03/31/24 22:55 Sputum Endotracheal Wash Respiratory Culture - Final Complete Problem List/Assessment/Plan Problem List/Assessment/Plan Acute kidney injury due to ATN/hemodynamic from shock, requiring intermittent hemodialysis Acute respiratory failure, intubated on ventilator Right thoracoscopy, evacuation of empyema, insertion of chest tube on 04/08 NSTEMI septic shock empyema metabolic acidosis resolved b/l renal stones w/ hydronephrosis--possible staghorn morbid obesity s/p hyperkalemia afib RVR Recommendations Renal function improving without dialysis Urine output has been better Continue Lasix IV b.i.d. Urology consult recommended once stable Monitor renal function closely Remains on vasopressors dc jair cath -removed today Plan discussed with: Other Dietary Evaluation Review Comments: 1) If GI is accessible consider Nepro 1.8 @ 30 ml/hr goal rate as tolerated with current rate of propofol on board. 2) If pt remains NPO >7 days consider TPN to meet at least 75% of estimated needs 3) If pt continues to receive HD, advance pt diet when medically feasible to a Renal Standard diet modified per PRODUCTION FINISHER recommendations 4) If HD is discontinued and GFR is within normal range, advance pt diet to a Regular diet, modified per PRODUCTION FINISHER recommendations 5)If HD is discontinued and GFR lies within STG 1-4, advance pt diet to a Renal Specific K2,lowphos,HECTOR,2gmNa,80gPro diet 6) If HD is discontinued and if GFR returns to normal levels then ALEXANDRA 1 pkt BID with meals may be considered to aid with wound healing 7) Continue current plan of care Expected Outcomes/Goals: 1) Pt to receive nutrition support within 7 days of NPO status 2) Pt labs to improve 3) Pt diet to advance 4) F/U in 2-3 days KAITLYN CENTENO MD Apr 09, 2024 21:31
[2024-04-09] MEDS: SODIUM CHLOR 0.9% PF (SALINE LOCK) 10ML VIAL/SYR IV SCH (22:37)
[2024-04-09] MEDS: Nepro With Carb Steady 1 Liter Bottle GT SCH (22:37)
[2024-04-10] VITALS (107 sets, daily range): BP systolic 76–148; BP diastolic 37–77; PULSE 68–96; RESP 8–28; TEMP 96.8–99.5; O2SAT 92–99
[2024-04-10 04:17] LABS: Basophils # (auto) 0.1 10 ^3/uL (0-0.2); Basophils % (auto) 0.8 % (0.0-2.0); Hematocrit 23.7 % (36.0-46.0); Lymphocytes # (auto) 1.2 10 ^3/uL (0.4-5.4); Monocytes # (auto) 0.7 10 ^3/uL (0-1.3); Neutrophils # (auto) 10.2 10 ^3/uL (1.6-8.6); White Blood Cell 12.3 10^3/uL (4.4-10.8)
[2024-04-10 04:20] LABS: Eosinophils # (auto) 0.2 10 ^3/uL (0-0.8); Eosinophils % (auto) 1.3 % (0.0-7.0); Hemoglobin 7.4 g/dL (12.2-16.2); Lymphocytes % (auto) 9.4 % (10.0-50.0); Mean Corpuscular Hemoglobin 25.2 pg (28.0-32.0); Mean Corpuscular Hgb Conc. 31.3 g/dL (32.0-36.0); Mean Corpuscular Volume 80.4 fL (80.0-100.0); Monocytes % (auto) 5.9 % (0.0-12.0); Neutrophils % (auto) 82.6 % (37.0-80.0); Nucleated Red Blood Cells % 0.1 %; Platelet Count (auto) 287 10^3/uL (140-450); Red Blood Cells 2.95 10^6/uL (4.0-5.20); Red Cell Distribution Width 18.1 % (11.8-14.3)
[2024-04-10 04:27] LABS: Alanine Aminotransferase 16 U/L (7-40); Alkaline Phosphatase 79 U/L (46-116); Anion Gap 12 (5-15); Aspartate Aminotransferase 40 U/L (13-40); BUN/Creatinine Ratio 38.8 (10.0-20.0); Bilirubin, Total 0.5 mg/dL (0.2-1.0); Blood Urea Nitrogen 78 mg/dL (9-23); Carbon Dioxide 29 mmol/L (20-31); Chloride 106 mmol/L (98-107); Glucose 104 mg/dL (74-106); Magnesium 2.2 mg/dL (1.6-2.6); Potassium 3.8 mmol/L (3.5-5.1); Total Protein 6.2 g/dL (5.7-8.2)
[2024-04-10 04:34] LABS: Sodium 147 mmol/L (136-145)
--- NOTE | 2024-04-10 06:12 | DVH ---
CHEST RADIOGRAPH Indication:reevaluate right lower lobe Technique: Single frontal view of the chest was obtained Comparison: XY CHEST PORTABLE on DOS: 04/09/24 FINDINGS: Lines and Tubes: Endotracheal tube terminates 3.1 cm above the mili. The enteric tube courses below the left hemidiaphragm and the tip extends outside the field of view. Right PICC is unchanged Lungs: Bilateral confluence consolidations particularly in the right lung are similar to prior study. Pleura: Bilateral pleural effusions. No pneumothorax. Cardiomediastinal contours: Enlarged but partially obscured. Bones: No acute osseous abnormality. IMPRESSION: 1. Bilateral pleural effusions and airspace disease right greater than left.
[2024-04-10 08:00] LABS: Base Excess 4.4 mmol/L (-2.0-3.0)
--- NOTE | 2024-04-10 08:15 | DVHPN2 ---
Progress Note - Dictate Date Seen: Apr 10, 2024 Has the PT tested + for MRSA If YES, has PT been informed?: No Medical Necessity Reason Pt with a Central, PICC or Fol: Yes The following are medically ne: Central Line, Martines Catheter vital signs Vital Sign Date Time Temp Pulse Resp B/P (MAP) Pulse Ox O2 Delivery O2 Flow Rate FiO2 04/10/24 06:36 72 22 116/61 (79) 94 40 04/10/24 06:30 98.4 209.1 04/10/24 06:00 Mechanical Ventilator+ Total Intake and Output 04/09/24 04/09/24 04/10/24 15:00 23:00 07:00 Intake Total 526.526 ml 611.683 ml 614.016 ml Output Total 1300 ml 900 ml Balance 526.526 ml -688.317 ml -285.984 ml medications Current Medications Medications Dose Ordered Sig/Destini Route Start Time Stop Time Status Last Admin Dose Admin Heparin Sodium/ Dextrose 250 ml @ 18 mls/hr [id number] IV 03/31/24 23:45 UNV Midazolam HCl 50 ml @ 1 mls/hr Q24H IV 04/01/24 01:30 04/10/24 07:07 8 MLS/HR Ondansetron HCl 4 mg Q4HP PRN IV 04/01/24 05:00 Acetaminophen 650 mg Q6HP PRN PO 04/01/24 05:00 04/05/24 02:09 650 MG Nitroglycerin 0.4 mg Q5MINP PRN SL 04/01/24 05:00 Albuterol 2.5 mg Q6HR NEB 04/01/24 06:00 04/10/24 06:36 2.5 MG Phenylephrine HCl 80 mg/Sodium Chloride 250 ml @ 7.5 mls/hr Q24H IV 04/01/24 10:45 04/10/24 01:10 33.75 MLS/HR Fentanyl Citrate 250 ml @ 2.5 mls/hr Q24H IV 04/02/24 11:15 04/10/24 01:13 10 MLS/HR Albumin Human 100 ml @ 100 mls/hr KIRAN PRN IV 04/03/24 07:00 Vancomycin HCl 0 ml @ 0 mls/hr UD IV 04/03/24 12:30 Norepinephrine Bitartrate 32 mg/ Sodium Chloride 250 ml @ 0.469 mls/ hr Q24H IV 04/04/24 06:30 04/08/24 17:08 0.938 MLS/HR Amiodarone HCl 250 ml @ 16.667 mls/ hr Q15H IV 04/07/24 11:15 04/10/24 01:07 16.667 MLS/HR Meropenem 50 ml @ 17 mls/hr Q12HR IV 04/08/24 10:00 04/09/24 22:36 17 MLS/HR Furosemide 40 mg BIDD IV 04/08/24 22:00 04/10/24 06:23 40 MG Enteral Nutritional Formula 1,000 ml 20ML/HR GT 04/09/24 11:15 04/09/24 22:37 1,000 ML Sodium Chloride 10 ml QSHIFT@10,22 IV 04/09/24 22:00 04/09/24 22:37 10 ML laboratory and microbiology Laboratory Tests 04/10/24 03:40 Test 04/10/24 03:40 Range/Units Serum Glucose 104 74-106 mg/dL Assessment/Plan s/p thoracoscopy and chest tube placement Patient is a 68-year-old female who was transferred from [facility]. She originally presented to [facility] for shortness of breath ongoing for few days. She is intubated and is being managed in ICU. Information was obtained by reviewing the chart and communicating with staff. Reportedly, she presented with respiratory failure to [facility] (oxygen saturation was 88%) and over there was found to have white blood cell count of 26.6, hemoglobin of 11.1, creatinine of 5.6, potassium of 5.6 and troponin of 1.01. She was given 365 mg of aspirin in [facility]. She did have an episode of atrial fibrillation with RVR with questionable ST changes and was transferred to our facility for further care. She was also found to have right pleural effusion in [facility] and was diagnosed with non-STEMI. Intubated, on vent support. On pressure support. Obese. Mucosa is pale. Scattered rhonchi in the lungs is heard. Cardiac: Regular, no thrill/gallop. Abdomen is soft with increased bowel sounds. There is no gross mass. Extremities reveal 1+ edema bilaterally. Available past medical history includes obesity and questionable history of psoriasis. WBC: 25.3 - 23.7 - 20.2 - 20.5 - 17.6 - 18.4 - 19.2 - 19.4 - 22.2 - 16.4 - 16.1 - 19.5 - 14.7 - 12.3 Hemoglobin: 10.8 - 9.1 - 8.5 - 8.4 - 8.8 - 8.6 - 8.9 - 8.1 - 8.4 - 8.1 - 8.1 - 8.2 - 8.0 - 7.4 D-dimer: 3.62 Creatinine: 5.67 - 5.78 - 5.41 - 4.92 - 4.55 - 4.68 - 4.71 - 4.64 - 4.48 - 3.83 - 3.66 - 3.65 - 3.25 - 2.82 - 2.41 - 2.34 - 2.01 Potassium: 6.0 - 6.3 - 6.1 - 6.0 - 5.3 - 5.0 - 4.9 - 4.8 - 5.1 - 5.4 - 4.9 - 5.3 - 4.8 - 4.5 - 4.7 - 4.3 - 4.2 - 3.9 - 4.6 - 3.8 Lactic acid: 3.3 - 3.4 - 2.3 - 2.5 - 2.5 - 2.7 - 2.4 - 2.5 - 3.1 - 2.3 - 1.7 TSH: 1.71 BNP: 274.69 - 1944.81 Troponin (high sensitive): 1469 - 1515 - 1684 Blood culture: positive Pleural fluid culture: E-coli Digoxin level: 2.09 Stool OB: positive Chest x-ray revealed: IMPRESSION: 1. Moderate right pleural effusion. 2. Cardiomegaly with mild pulmonary vascular congestion bilaterally. Repeat chest x-ray revealed: IMPRESSION: 1. Endotracheal tube and gastric tubes in place as described. 2. Right IJ central venous catheter projects over the lower SVC. 3. Mild cardiomegaly and prominence of the pulmonary vasculature. 4. Moderate to large right pleural effusion. Repeat chest x-ray revealed: IMPRESSION: Similar lung aeration with large right pleural effusion. No pneumothorax seen. Stable lines and tubes. Repeat chest x-ray revealed: IMPRESSION: Similar lung aeration with large right pleural effusion. No pneumothorax seen. Stable lines and tubes. Repeat chest xry revealed: Lines and tubes: ET in the mid thoracic trachea. NG crosses midline. Right CVC is stable. Left HD catheter projects over the mediastinum. Cardiomediastinal silhouette: Enlarged Pulmonary vasculature: prominent Lung expansion: low Lung airspace: patchy bilateral airspace opacity. Lung interstitium: normal Pleura: Similar large right effusion. Pneumothorax: no Bones: Unremarkable Other: no IMPRESSION: Lines and tubes, as above. Similar lung aeration bilaterally with a right pleural effusion and patchy airspace opacities. Repeat chest xry revealed: IMPRESSION: 1. Stable position of the support lines and tubes. 2. Interstitial and alveolar opacities. Repeat chest xry revealed: IMPRESSION: Unchanged multifocal airspace disease. Small to moderate right pleural effusion ; possibly loculated. Repeat chest xry revealed: IMPRESSION: Lines and tubes in satisfactory position. No significant interval change. Repeat chest xry revealed: IMPRESSION: 1. Support lines and tubes in appropriate position. 2. Pulmonary vascular congestion. 3. Bilateral pleural effusions, right greater than left. Repeat chest xry revealed: IMPRESSION: 1. Support lines and tubes in appropriate position. 2. Pulmonary vascular congestion. 3. Bilateral pleural effusions, right greater than left. Repeat chest xry revealed: IMPRESSION: Interval placement of right chest tube which projects deep into the right hilar region. Repeat chest xry revealed: IMPRESSION: No interval change Repeat chest xry revealed: Findings/IMPRESSION: Right IJ CVC terminating in the SVC. Endotracheal tube projected 5 cm superior to the mili. Enteric tube projected below the GE junction. Right-sided PICC projects terminating near the cavoatrial junction. Small bilateral pleural effusions and/or atelectasis with superimposed infection not excluded. Repeat chest xry revealed: MPRESSION: 1. Bilateral pleural effusions and airspace disease right greater than left. CT scan of the chest/abdomen and pelvis revealed: IMPRESSION: 1. Moderate partially loculated right pleural effusion and consolidations in the right middle and lower lobes which could be pneumonia and/or atelectasis. 2. Mild cardiomegaly, mild interstitial pulmonary edema, and body wall edema. 3. There is a 1.9 cm calculus in the right UPJ with mild right hydronephrosis 4. There is a 2.6 cm somewhat staghorn appearing calculus in the left renal pelvis and UPJ causing mild predominantly mid to lower pole left hydronephrosis. Mild soft tissue stranding about the left renal pelvis which could be due to obstruction or superimposed infection. Correlate with urinalysis. 5. Partial duplication of the left renal collecting system without hydronephrosis in the upper pole. 6. Moderate right perinephric, right retroperitoneal, and bilateral extraperitoneal pelvis low-density fluid and very mild left retroperitoneal low-density fluid. This could be fluid related to bilateral renal obstructions and forniceal ruptures versus evolved retroperitoneal hematoma. This is suboptimally evaluated without intravenous contrast. 7. Fluid-filled small and large bowel loops which may be physiologic or related to enterocolitis and could be manifesting as loose stools and/or diarrhea. 8. Prominent endometrium measuring at least 2.8 cm, suboptimally evaluated by CT. Recommend characterization with nonemergent pelvic ultrasound if clinically indicated. 9. Mild hepatosplenomegaly. 10. Moderate three-vessel calcified coronary artery disease and mild aortic valve calcification. 11. Right IJ central venous catheter in place terminating in the low SVC. 12. Small soft tissue stranding in the right supraclavicular neck which could be blood products. 13. Endotracheal tube terminates above the mili. CT of the head revealed: IMPRESSION: 1. No acute intracranial abnormality. 2. Generalized cerebral volume loss and mild chronic microvascular ischemic change. 3. Partially imaged endotracheal tube. Chest ultrasound revealed: Findings/Impression: There is a trace bilateral pleural effusion. Thoracentesis: FINDINGS: Moderate size, complex and septated right pleural effusion. Aspirated fluid is thick and green in consistency. IMPRESSION: Right thoracentesis with 250 mL removed for laboratory analysis. EKG in [facility] revealed sinus tachycardia, poor R-wave progression old inferior wall CO. later EKG revealed atrial fibrillation with RVR. Telemetry reveals sinus rhythm, occasions of A-fib with RVR, SVT Echocardiogram revealed: Technically limited study secondary to poor acoustic windows. Left ventricle: Left ventricle was normal-sized. Mild concentric left ventricular hypertrophy was seen. LVEF was 55-60%. No gross wall motion abnormality was observed, but its presence can not be ruled out on the basis of this study. Right ventricle is mildly dilated with normal systolic function. Left atrium was mildly dilated. Right atrium was normal-sized. Aortic valve was trileaflet. There was no aortic insufficiency. There was aortic sclerosis with no stenosis. There was trivial mitral/tricuspid regurgitation. Pulmonary valve was not well visualized. Right ventricular systolic pressure was assessed around 48 mm Hg. There was no pericardial effusion. Patient is a 68-year-old morbidly obese patient who presented with respiratory failure to the hospital. Presentation is in favor of sepsis/septic shock. Multiorgan failure is observed. She is intubated and on vent support. She is on multiple pressor support. Life findings are in favor of acute renal failure. She also is known to have nephrolithiasis with history of staghorn calculi. Cardiac-ceballos, the patient did have episode of atrial fibrillation with RVR. She is found to have increased troponin. Presentation questions non-STEMI and possibly type 2 ischemia. Recognizing the presentation, ischemic workup should be postponed after clinical stability. Is being followed by Nephrology. Had episodes of tachyarrhythmia. Loaded with Digoxin. Positive cultures. Repeated a-fib with RVR. Septic shock Multiorgan failure Acute respiratory failure on vent support Acute renal failure Nephrolithiasis Staghorn calculi Hydronephrosis Abnormal troponin, non-STEMI Atrial fibrillation with RVR Paroxysmal AFib Acute heart failure, diastolic Hepatosplenomegaly Pleural effusion Status post thoracentesis Morbid obesity s/p Cardioversion for A-fib with RVR s/p thoracoscopy and chest tube placement Cardiac suggestion for management: Manage in ICU Follow-up electrolytes and kidney function tests and correct abnormalities Pressure support to keep mean arterial pressure above 65 Amiodarone drip (may add oral Amio if tolerating PO meds) Heparin drip Daily aspirin (81 mg daily) Loaded with Digoxin Off Lidocaine drip s/p thoracoscopy and chest tube placement IV metoprolol PRN for a-fib with RVR episodes. Sepsis workup and management as per primary team Cardiac ceballos, patient is elevated risk patient for urgent Thoracotomy procedure. You can consider proceeding with procedure under appropriate intra and post operative hemodynamic monitoring. If you choose to proceed with procedure, try to avoid hypotension. Evaluation and management of respiratory failure as per primary team/Pulmonary Evaluation and management of nephrolithiasis/hydronephrosis as per primary/Urology Evaluation and management of acute renal failure as per Nephrology Ischemic workup, after clinical stability (only if regained higher brain function) Further evaluation and management as per above and clinical course. A total of 75 minutes was spent reviewing the patient record, examining the patient, making a diagnostic and therapeutic plan, discussing this plan with medical personnel, following up on diagnostic studies and following the patient for clinical stability excluding any and all procedures. At least 50% of this time was spent in direct, [id number] contact. Thank you for allowing me to participate in this patient's care. Further recommendations will depend on patient's clinical course. Please do not hesitate to contact me if you have any questions or concerns. This medical document was created using electronic medical record system with [employer] dictation system. Although this document has been carefully reviewed, there may still be some phonetic and typographical errors. These areas are purely typographical due to the imperfection of the software programs, and do not reflect any compromise in the patient's medical care. Dietary Evaluation Review Comments: 1) If GI is accessible consider Nepro 1.8 @ 30 ml/hr goal rate as tolerated with current rate of propofol on board. 2) If pt remains NPO >7 days consider TPN to meet at least 75% of estimated needs 3) If pt continues to receive HD, advance pt diet when medically feasible to a Renal Standard diet modified per ROD STRAIGHTENER recommendations 4) If HD is discontinued and GFR is within normal range, advance pt diet to a Regular diet, modified per ROD STRAIGHTENER recommendations 5)If HD is discontinued and GFR lies within STG 1-4, advance pt diet to a Renal Specific K2,lowphos,HECTOR,2gmNa,80gPro diet 6) If HD is discontinued and if GFR returns to normal levels then ALEXANDRA 1 pkt BID with meals may be considered to aid with wound healing 7) Continue current plan of care Expected Outcomes/Goals: 1) Pt to receive nutrition support within 7 days of NPO status 2) Pt labs to improve 3) Pt diet to advance 4) F/U in 2-3 days Plan discussed with: Other (nurse) HERMINIO JOHNSON MD Apr 10, 2024 08:15
--- NOTE | 2024-04-10 08:39 | DVHPN2 ---
Progress Note Date Seen: Apr 10, 2024 Has the PT tested + for MRSA If YES, has PT been informed?: No Medical Necessity Reason Pt with a Central, PICC or Fol: Yes The following are medically ne: Central Line, Martines Catheter Objective vital signs Vital Sign Date Time Temp Pulse Resp B/P (MAP) Pulse Ox O2 Delivery O2 Flow Rate FiO2 04/10/24 08:25 82 22 113/64 (80) 94 40 04/10/24 06:30 98.4 209.1 04/10/24 06:00 Mechanical Ventilator+ Total Intake and Output 04/09/24 04/09/24 04/10/24 15:00 23:00 07:00 Intake Total 526.526 ml 611.683 ml 614.016 ml Output Total 1300 ml 900 ml Balance 526.526 ml -688.317 ml -285.984 ml medications Current Medications Medications Dose Ordered Sig/Destini Route Start Time Stop Time Status Last Admin Dose Admin Heparin Sodium/ Dextrose 250 ml @ 18 mls/hr [id number] IV 03/31/24 23:45 UNV Midazolam HCl 50 ml @ 1 mls/hr Q24H IV 04/01/24 01:30 04/10/24 07:07 8 MLS/HR Ondansetron HCl 4 mg Q4HP PRN IV 04/01/24 05:00 Acetaminophen 650 mg Q6HP PRN PO 04/01/24 05:00 04/05/24 02:09 650 MG Nitroglycerin 0.4 mg Q5MINP PRN SL 04/01/24 05:00 Albuterol 2.5 mg Q6HR NEB 04/01/24 06:00 04/10/24 06:36 2.5 MG Phenylephrine HCl 80 mg/Sodium Chloride 250 ml @ 7.5 mls/hr Q24H IV 04/01/24 10:45 04/10/24 01:10 33.75 MLS/HR Fentanyl Citrate 250 ml @ 2.5 mls/hr Q24H IV 04/02/24 11:15 04/10/24 01:13 10 MLS/HR Albumin Human 100 ml @ 100 mls/hr KIRAN PRN IV 04/03/24 07:00 Vancomycin HCl 0 ml @ 0 mls/hr UD IV 04/03/24 12:30 Norepinephrine Bitartrate 32 mg/ Sodium Chloride 250 ml @ 0.469 mls/ hr Q24H IV 04/04/24 06:30 04/08/24 17:08 0.938 MLS/HR Amiodarone HCl 250 ml @ 16.667 mls/ hr Q15H IV 04/07/24 11:15 04/10/24 01:07 16.667 MLS/HR Meropenem 50 ml @ 17 mls/hr Q12HR IV 04/08/24 10:00 04/09/24 22:36 17 MLS/HR Furosemide 40 mg BIDD IV 04/08/24 22:00 04/10/24 06:23 40 MG Enteral Nutritional Formula 1,000 ml 20ML/HR GT 04/09/24 11:15 04/09/24 22:37 1,000 ML Sodium Chloride 10 ml QSHIFT@10,22 IV 04/09/24 22:00 04/09/24 22:37 10 ML laboratory and microbiology Laboratory Tests 04/10/24 03:40 Test 04/10/24 03:40 Range/Units Serum Glucose 104 74-106 mg/dL Problem List/Assessment/Plan Problem List/Assessment/Plan 04/04/24I was just notified by anesthesiologists that they were evaluating the patient in the ICU and that she just became hemodynamically unstable and is being dialysed, the plan is to cardiovert her later this PM, I will cancel operation for today, it is also very likely that her sepsis is not due t othe pleural effusion but rather the hydronephrosis and superimposed urinary infection. 04/07/24 according to patient is now stable enough to undergo evacuation of empyema left chest, fluid dgrew enteric organisms, will attempt thoracoscopy but most likely will need a thoracotomy tomorrow AM.; I had previously explained the procedure and its attendant possible complications to pt's daughter 04/10/24 POST STABLE,CHEST X RAY REVIEWED, CHEST TUBE WITH MINIMAL TO MODERATE PURULENT OUTPU, NO AIR LEAK, CONTINUE IS Plan discussed with: Patient Dietary Evaluation Review Comments: 1) If GI is accessible consider Nepro 1.8 @ 30 ml/hr goal rate as tolerated with current rate of propofol on board. 2) If pt remains NPO >7 days consider TPN to meet at least 75% of estimated needs 3) If pt continues to receive HD, advance pt diet when medically feasible to a Renal Standard diet modified per MANAGER R D recommendations 4) If HD is discontinued and GFR is within normal range, advance pt diet to a Regular diet, modified per MANAGER R D recommendations 5)If HD is discontinued and GFR lies within STG 1-4, advance pt diet to a Renal Specific K2,lowphos,HECTOR,2gmNa,80gPro diet 6) If HD is discontinued and if GFR returns to normal levels then ALEXANDRA 1 pkt BID with meals may be considered to aid with wound healing 7) Continue current plan of care Expected Outcomes/Goals: 1) Pt to receive nutrition support within 7 days of NPO status 2) Pt labs to improve 3) Pt diet to advance 4) F/U in 2-3 days SANTY HAZEL MD Apr 10, 2024 08:39
[2024-04-10] MEDS: LIDOCAINE 1% (LOCAL ANESTH.) PF 5ml SDV ID ONE (09:12)
--- NOTE | 2024-04-10 09:46 | DVHPNRES ---
Progress Note Date Seen: Apr 10, 2024 Resident Creating Document: KEVON BLANTON RESIDENT Has the PT tested + for MRSA If YES, has PT been informed?: No Medical Necessity Reason Pt with a Central, PICC or Fol: Yes The following are medically ne: Central Line, Martines Catheter Subjective Review of Systems This is a 68-year-old female with unknown past medical history who was transferred from another facility ([facility]) for higher level of care. The patient initially was treated at that facility for shortness of breaths and back pain. The patient was transferred to our facility for higher level of care. The patient on arrival to the ED was tachypneic with severe respiratory failure, tachycardic rhythm consistent with atrial fibrillation and was saturating in the 70s. Initially placed on non-rebreather mask and then emergently intubated to protect airway. The patient was started on amiodarone drip 1 milligram/minute, phenylephrine, vasopressin and levophed. Patient initially was started on broad-spectrum antibiotics with vancomycin and Zosyn but for renal protection, since GFR was less than 10 and to have a more broad- spectrum coverage we added meropenem and discontinued Zosyn. To the ICU for further assessment and management. Patient seen and examined at bedside. Patient still sedated on fentanyl and midazolam on mechanical ventilator on the following parameters: VT 500, RR 22, FiO2 40%, PEEP 6, sat 94%. WBC is coming down to 12.3, lactic acid also came back at 1.2. Pleural thoracic fluid which was sent after thoracoscopy is showing no growth at this time. Right-sided chest tube is draining approximately 110 cc in the last 24 hours. Kidney function is also slightly improving, today creatinine was 2.01 and BUN 78. This morning, ABG was showing a pH of 7.47, pCO2 of 40, HC03 of 28.5 and PaO2 of 69.1. Which is consistent with metabolic alkalosis with respiratory compensation calculated by russo formula. Will start amiodarone 200mg PO QD and discontinue amio drip tomorrow morning. Will also start IV iron at this time. Patient was already started on EN currently at 20cc/hr. Unable to obtain due to patient's current status, intubation. Objective vital signs Vital Sign Date Time Temp Pulse Resp B/P (MAP) Pulse Ox O2 Delivery O2 Flow Rate FiO2 10/10/24 08:25 82 22 113/64 (80 94 40 04/10/24 08:00 Mechanical Ventilator+ 04/10/24 06:30 98.4 209.1 Total Intake and Output 04/09/24 04/09/24 04/10/24 15:00 23:00 07:00 Intake Total 526.526 ml 611.683 ml 683.371 ml Output Total 1300 ml 900 ml Balance 526.526 ml -688.317 ml -216.629 ml medications Current Medications Medications Dose Ordered Sig/Destini Route Start Time Stop Time Status Last Admin Dose Admin Heparin Sodium/ Dextrose 250 ml @ 18 mls/hr [id number] IV 03/31/24 23:45 UNV Midazolam HCl 50 ml @ 1 mls/hr Q24H IV 04/01/24 01:30 04/10/24 07:07 8 MLS/HR Ondansetron HCl 4 mg Q4HP PRN IV 04/01/24 05:00 Acetaminophen 650 mg Q6HP PRN PO 04/01/24 05:00 04/05/24 02:09 650 MG Nitroglycerin 0.4 mg Q5MINP PRN SL 04/01/24 05:00 Albuterol 2.5 mg Q6HR NEB 04/01/24 06:00 04/10/24 06:36 2.5 MG Phenylephrine HCl 80 mg/Sodium Chloride 250 ml @ 7.5 mls/hr Q24H IV 04/01/24 10:45 04/10/24 01:10 33.75 MLS/HR Fentanyl Citrate 250 ml @ 2.5 mls/hr Q24H IV 04/02/24 11:15 04/10/24 01:13 10 MLS/HR Albumin Human 100 ml @ 100 mls/hr KIRAN PRN IV 04/03/24 07:00 Vancomycin HCl 0 ml @ 0 mls/hr UD IV 04/03/24 12:30 Norepinephrine Bitartrate 32 mg/ Sodium Chloride 250 ml @ 0.469 mls/ hr Q24H IV 04/04/24 06:30 04/08/24 17:08 0.938 MLS/HR Amiodarone HCl 250 ml @ 16.667 mls/ hr Q15H IV 04/07/24 11:15 04/10/24 01:07 16.667 MLS/HR Meropenem 50 ml @ 17 mls/hr Q12HR IV 04/08/24 10:00 04/09/24 22:36 17 MLS/HR Enteral Nutritional Formula 1,000 ml 20ML/HR GT 04/09/24 11:15 04/09/24 22:37 1,000 ML Sodium Chloride 10 ml QSHIFT@10,22 IV 04/09/24 22:00 04/09/24 22:37 10 ML Furosemide 40 mg DAILY IV 04/10/24 10:00 UNV Examination Physical Examination General: Patient sedated on mechanical ventilator: VT 500, RR 22, FiO2 40%, PEEP 6, sat 94% HEENT: Normocephalic, atraumatic, moist mucous membranes Respiratory/pulmonary: There are no breath sounds audible in the right lung base and diminished breath sounds on the left lung as well. There is a right sided 40 sized chest tube draining aprox 110cc of serosanguineous fluid into the Pleur-evac. Cardiovascular: Heart rate and rhythm has been oscilating in afib rate control to RVR but is currently on sinus rhythm at this time with occasional PACs. No murmurs at this time. Abdomen: Abdomen slightly distended, there is no pain to palpation in any of the abdominal quadrants, no palpable masses. Extremities: There is minimal 1+ pitting edema in the lower extremities bilaterally. Peripheral Pulses: 3+ Radial (R). 3+ Radial (L). 3+ Dorsalis pedis (R). 3+ Dorsalis pedis(L) Skin: There is dry skin in bilateral lower extremities with scales and excoriations. Neurological: Sedated, RASS -3 laboratory and microbiology Laboratory Tests 04/10/24 03:40 Test 04/10/24 03:40 Range/Units Serum Glucose 104 74-106 mg/dL Microbiology Date/Time Source Procedure Growth Status 04/08/24 08:02 Thoracic Fluid Gram Stain - Final Resulted 04/08/24 08:02 Thoracic Fluid Anaerobic Culture - Preliminary Resulted 04/08/24 08:02 Thoracic Fluid Aerobic Culture - Preliminary Resulted 04/07/24 07:44 Urine - [place] Urine Culture - Preliminary Resulted 04/01/24 11:19 Nose MRSA Screen - Final Complete 04/01/24 07:18 Blood Blood Culture - Final Staphylococcus auricularis#2 Complete 03/31/24 22:55 Sputum Endotracheal Wash Gram Stain - Final Complete 03/31/24 22:55 Sputum Endotracheal Wash Respiratory Culture - Final Complete Problem List/Assessment/Plan Problem List/Assessment/Plan Assessment/Plan Neurology Sedation -currently on midazolam and fentanyl Vasopressors -currently on Levophed, vasopressin, phenylephrine Respiratory Acute hypoxic respirtory failure likel due to right-sided pleural effusion and consolidation on right middle and lower lobes -initial chest x-ray showed severe right lower lobe opacities consistent with either consolidation or moderate to severe pleural effusion -CT of the chest and abdomen showed moderate partial loculated right pleural effusion and consolidation on right middle/lower lobes. Mild cardiomegaly and interstitial pulmonary edema. It also showed right hydronephrosis with 1.9 cm calculus into the right UPJ. There is also a 2.6 cm staghorn appearing calculus causing mid to lower pole left hydronephrosis. -the patient was initially started on Zosyn, vancomycin and cefepime. We discontinued Zosyn and cefepime. -we will switch linezolid back to vancomycin due to low platelet. -start renal dose of IV meropenem -Continue IV vanco and meropenem -consulted interventional radiologist which performed right-sided thoracentesis removing 250 mL of fluid which were sent to analysis. -currently on mechanical ventilator on the following parameters: VT 500, RR 22, FiO2 40%, PEEP 6, saturating 94%. -Surgical thoracoscopy was performed on 04/08/2024 with evacuation of empyema and insertion of a chest tube draining approximately 200 cc of purulent material. -Right chest tube is draining aprox 110cc in the last 24 hrs. Sepsis in the setting of loculated right-sided pleural effusion (EMPYEMA) and pneumonia -ordered blood cultures, sputum cultures and urine culture -currently on IV meropenem and linezolid -Will monitor plateletes closely -S/P right-sided thoracentesis removing 250 mL of fluids. -chest x-ray this morning showed still right-sided opacities and left opacities in the base of the lung. -Surgical thoracoscopy was performed on 04/08/2024 with evacuation of empyema and insertion of a chest tube draining approximately 200 cc of purulent material. -Right chest tube is draining aprox 110cc in the last 24 hrs. Cardiology Acute on chronic systolic/diastolic heart failure -BNP came back elevated at 274.69 -initial EKG showed sinus tachycardia with PACs but no ST segment elevation or depression at that time -troponins came back elevated at 1469 and peaked up to 1684 -echocardiogram is showing an LVEF of 55-60% with increased RVSP at 48 mmHg and no pericardial effusion NSTEMI type II ? -troponins came back elevated at 1469 and peaked up to 1684 -Trend trops Atrial fibrilation with RVR -patient was placed on amiodarone drip 0.5 mg/min -CHADS VASC score HAS BLED score -heparin drip was hold for right-sided chest tube placement and david catheter placement -patient underwent atrial flutter with a heart rate of 180 to 200, cardiology decided to perform synchronized cardioversion and continue amiodarone drip. -S/P multiple synchronized cardioversions x6 -Will start amiodarone 200mg PO BID -Discontinue tomorrow morning amiodarone drip -patient was given two doses of digoxin but due to high levels of digoxin blood 3rd dose was held Nephrology Bilateral hydronephrosis -CT scan of the chest and abdomen showed right hydronephrosis with 1.9 cm calculus into the right UPJ, there was also a 2.6 cm staghorn appearing calculus causing mid to lower pole left hydronephrosis. -nephrology on board -consulted Urology for bilateral nephrostomy tube placement -David catheter placed on L IJ on 04/08/24 CHRISTOPH likely postobstructive nephropathy -most likely secondary to bilateral renal calculi -creatinine was 2.01 and BUN 78. Kidney function slightly improving -Holding HD at this time since Cr is slightly improving -nephrology and urology on board -consulted Urology for bilateral nephrostomy tube placement, if therapy does not improve patient might need hemodialysis as last resource Nutrition -Continue EN Nepro at 30cc/hr Hyperkalemia -potassium was 4.6 -monitor closely DVT prophylaxys -Will consider starting Enoxaparin prophylactic dose tomorrow Lines: IJ right triple-lumen placed on 03/31/2024 (will remove Central line and place a PICC line) Peripheral in right wrist placed on 03/31/2024 Peripheral in left forearm placed on 03/31/2024 David catheter placed in the left IJ placed on 04/02/2024 (REMOVED) Goals of care discussed with medical team for >23min Critical time spent > 81 min Plan discussed with Dr. Jones Plan discussed with: Other My Orders My Orders Orders - KEVON BLANTON Procedure Category Date Status Time Chest Xray 1 View XY 04/10/24 Resulted 04:00 Abg W/ Co-Ox RT 04/09/24 Logged 16:54 Abg W/ Co-Ox RT 04/10/24 Logged 05:42 Dietary Evaluation Review Comments: 1) If GI is accessible consider Nepro 1.8 @ 30 ml/hr goal rate as tolerated with current rate of propofol on board. 2) If pt remains NPO >7 days consider TPN to meet at least 75% of estimated needs 3) If pt continues to receive HD, advance pt diet when medically feasible to a Renal Standard diet modified per MOBILE [employer] recommendations 4) If HD is discontinued and GFR is within normal range, advance pt diet to a Regular diet, modified per MOBILE TESTER recommendations 5)If HD is discontinued and GFR lies within STG 1-4, advance pt diet to a Renal Specific K2,lowphos,HECTOR,2gmNa,80gPro diet 6) If HD is discontinued and if GFR returns to normal levels then ALEXANDRA 1 pkt BID with meals may be considered to aid with wound healing 7) Continue current plan of care Expected Outcomes/Goals: 1) Pt to receive nutrition support within 7 days of NPO status 2) Pt labs to improve 3) Pt diet to advance 4) F/U in 2-3 days Date of Service: Apr 10, 2024 Billing Provider: LAURIE JONES MD Common Visit Codes: 76006-[id number] CARE 30-74 MIN, [id number] CARE-EACH +30MIN KEVON BLANTON Apr 10, 2024 09:46 LAURIE JONES MD Apr 13, 2024 15:36
[2024-04-10] MEDS: FUROSEMIDE 40 MG/4 ML VIAL IV SCH (10:00)
[2024-04-10] MEDS ORDERED: MEROPENEM 1GM IVPB 50 ML IV SCH (14:00)
[2024-04-10] MEDS: IRON SUCROSE COMPLEX 100 ML IV SCH (14:31)
[2024-04-10] MEDS: AMIODARONE 450mg/250ml AE 250 ML IV SCH (14:31)
--- NOTE | 2024-04-10 17:21 | DVHPN2 ---
Progress Note Date Seen: Apr 10, 2024 Has the PT tested + for MRSA If YES, has PT been informed?: No Medical Necessity Reason Pt with a Central, PICC or Fol: Yes The following are medically ne: Central Line, Martines Catheter Subjective Patient reports: Other (Remains intubated) Review of Systems: Deferred Objective vital signs Vital Sign Date Time Temp Pulse Resp B/P (MAP) Pulse Ox O2 Delivery O2 Flow Rate FiO2 04/10/24 16:00 79 04/10/24 16:00 22 95 Mechanical Ventilator+ 40 40 04/10/24 15:43 102/53 (69) 04/10/24 14:45 99.1 210.4 Total Intake and Output 04/09/24 04/09/24 04/10/24 15:00 23:00 07:00 Intake Total 526.526 ml 611.683 ml 683.371 ml Output Total 1300 ml 900 ml Balance 526.526 ml -688.317 ml -216.629 ml medications Current Medications Medications Dose Ordered Sig/Destini Route Start Time Stop Time Status Last Admin Dose Admin Heparin Sodium/ Dextrose 250 ml @ 18 mls/hr [id number] IV 03/31/24 23:45 UNV Midazolam HCl 50 ml @ 1 mls/hr Q24H IV 04/01/24 01:30 04/10/24 13:46 8 MLS/HR Ondansetron HCl 4 mg Q4HP PRN IV 04/01/24 05:00 Acetaminophen 650 mg Q6HP PRN PO 04/01/24 05:00 04/05/24 02:09 650 MG Nitroglycerin 0.4 mg Q5MINP PRN SL 04/01/24 05:00 Albuterol 2.5 mg Q6HR NEB 04/01/24 06:00 04/10/24 12:19 2.5 MG Phenylephrine HCl 80 mg/Sodium Chloride 250 ml @ 7.5 mls/hr Q24H IV 04/01/24 10:45 04/10/24 10:05 33.75 MLS/HR Fentanyl Citrate 250 ml @ 2.5 mls/hr Q24H IV 04/02/24 11:15 04/10/24 01:13 10 MLS/HR Albumin Human 100 ml @ 100 mls/hr KIRAN PRN IV 04/03/24 07:00 Vancomycin HCl 0 ml @ 0 mls/hr UD IV 04/03/24 12:30 Norepinephrine Bitartrate 32 mg/ Sodium Chloride 250 ml @ 0.469 mls/ hr Q24H IV 04/04/24 06:30 04/08/24 17:08 0.938 MLS/HR Enteral Nutritional Formula 1,000 ml 20ML/HR GT 04/09/24 11:15 04/09/24 22:37 1,000 ML Sodium Chloride 10 ml QSHIFT@10,22 IV 04/09/24 22:00 04/10/24 09:46 10 ML Furosemide 40 mg DAILY IV 04/10/24 10:00 Iron Sucrose 110 ml @ 110 mls/hr DAILY@1200 IV 04/10/24 12:00 04/10/24 14:31 110 MLS/HR Amiodarone HCl 200 mg Q12HR PO 04/10/24 22:00 UNV Amiodarone HCl 250 ml @ 16.667 mls/ hr Q15H IV 04/10/24 12:30 04/11/24 12:00 Amiodarone HCl 200 mg Q12HR PO 04/10/24 22:00 Meropenem 50 ml @ 17 mls/hr Q8H IV 04/10/24 18:00 Examination: LUNGS:Abnormal, CVS:Abnormal, MSK:Abnormal, SKIN:Abnormal, NEURO:Abnormal laboratory and microbiology Laboratory Tests 04/10/24 03:40 Test 04/10/24 03:40 Range/Units Serum Glucose 104 74-106 mg/dL Microbiology Date/Time Source Procedure Growth Status 04/09/24 13:10 Blood Blood Culture - Preliminary NO GROWTH AFTER 24 HOURS OF INCUBATION. Resulted 04/08/24 08:02 Thoracic Fluid Gram Stain - Final Resulted 04/08/24 08:02 Thoracic Fluid Anaerobic Culture - Preliminary Resulted 04/08/24 08:02 Thoracic Fluid Aerobic Culture - Preliminary Resulted 04/07/24 07:44 Urine - [place] Urine Culture - Final Complete 04/01/24 11:19 Nose MRSA Screen - Final Complete 03/31/24 22:55 Sputum Endotracheal Wash Gram Stain - Final Complete 03/31/24 22:55 Sputum Endotracheal Wash Respiratory Culture - Final Complete Problem List/Assessment/Plan Problem List/Assessment/Plan Acute kidney injury due to ATN/hemodynamic from shock, requiring intermittent hemodialysis Acute respiratory failure, intubated on ventilator Right thoracoscopy, evacuation of empyema, insertion of chest tube on 04/08 NSTEMI septic shock empyema metabolic acidosis resolved b/l renal stones w/ hydronephrosis--possible staghorn morbid obesity s/p hyperkalemia afib RVR Recommendations Renal function improving without dialysis Urine output has been better Continue Lasix IV daily Urology consult recommended once stable Remains on vasopressors dc jair cath -removed 04/09 Plan discussed with: Other My Orders My Orders Orders - KAITLYN CENTENO MD Procedure Category Date Status Time Furosemide Injection PHA 04/10/24 In Process (Lasix Injection) 10:00 Dietary Evaluation Review Comments: 1) If GI is accessible consider Nepro 1.8 @ 30 ml/hr goal rate as tolerated with current rate of propofol on board. 2) If pt remains NPO >7 days consider TPN to meet at least 75% of estimated needs 3) If pt continues to receive HD, advance pt diet when medically feasible to a Renal Standard diet modified per LEAF [employer] recommendations 4) If HD is discontinued and GFR is within normal range, advance pt diet to a Regular diet, modified per LE[employer] recommendations 5)If HD is discontinued and GFR lies within STG 1-4, advance pt diet to a Renal Specific K2,lowphos,HECTOR,2gmNa,80gPro diet 6) If HD is discontinued and if GFR returns to normal levels then ALEXANDRA 1 pkt BID with meals may be considered to aid with wound healing 7) Continue current plan of care Expected Outcomes/Goals: 1) Pt to receive nutrition support within 7 days of NPO status 2) Pt labs to improve 3) Pt diet to advance 4) F/U in 2-3 days KAITLYN CENTENO MD Apr 10, 2024 17:21
[2024-04-10] MEDS: MEROPENEM 1GM IVPB 50 ML IV SCH (17:59)
[2024-04-10] MEDS ORDERED: AMIODARONE HCL 200 MG TAB PO SCH (22:00)
[2024-04-10] MEDS: AMIODARONE HCL 200 MG TAB PO SCH (22:01)
[2024-04-11] VITALS (111 sets, daily range): BP systolic 86–137; BP diastolic 44–72; PULSE 70–100; RESP 9–27; TEMP 97–99.3; O2SAT 93–100
[2024-04-11] MEDS: PHENYLEPHRINE INJ 80 MG in SODIUM CHL 0.9% 242 ML IV SCH (01:09)
[2024-04-11 04:00] LABS: Eosinophils # (auto) 0.2 10 ^3/uL (0-0.8); Hemoglobin 7.4 g/dL (12.2-16.2); Lymphocytes # (auto) 0.8 10 ^3/uL (0.4-5.4); Nucleated Red Blood Cells % 0.4 %
[2024-04-11 04:02] LABS: Basophils # (auto) 0 10 ^3/uL (0-0.2); Basophils % (auto) 0.4 % (0.0-2.0); Eosinophils % (auto) 1.6 % (0.0-7.0); Hematocrit 23.6 % (36.0-46.0); Lymphocytes % (auto) 8.6 % (10.0-50.0); Mean Corpuscular Hemoglobin 25.4 pg (28.0-32.0); Mean Corpuscular Hgb Conc. 31.1 g/dL (32.0-36.0); Mean Corpuscular Volume 81.6 fL (80.0-100.0); Monocytes # (auto) 0.5 10 ^3/uL (0-1.3); Monocytes % (auto) 5.2 % (0.0-12.0); Neutrophils # (auto) 8.3 10 ^3/uL (1.6-8.6); Neutrophils % (auto) 84.2 % (37.0-80.0); Platelet Count (auto) 254 10^3/uL (140-450); Red Cell Distribution Width 18.4 % (11.8-14.3); White Blood Cell 9.8 10^3/uL (4.4-10.8)
[2024-04-11 04:10] LABS: Anion Gap 9 (5-15); Carbon Dioxide 30 mmol/L (20-31); Chloride 110 mmol/L (98-107); Potassium 3.5 mmol/L (3.5-5.1); Sodium 149 mmol/L (136-145)
[2024-04-11 04:11] LABS: Calcium 8.3 mg/dL (8.7-10.4)
[2024-04-11 04:16] LABS: BUN/Creatinine Ratio 38.4 (10.0-20.0); Blood Urea Nitrogen 73 mg/dL (9-23); Glucose 131 mg/dL (74-106); Magnesium 2.2 mg/dL (1.6-2.6)
--- NOTE | 2024-04-11 05:46 | DVH ---
CHEST RADIOGRAPH Indication:reevaluate right lung amaya Technique: Single frontal view of the chest was obtained Comparison: XY CHEST XRAY 1 VIEW on DOS: 04/10/24 FINDINGS: Lines and Tubes: The endotracheal tube terminates 6.0 cm above the mili. The enteric tube courses b elow the left hemidiaphragm and the tip extends outside the field of view. Right PICC terminates in t he superior vena cava. Lungs: Bilateral airspace disease similar to prior study. Pleura: Bilateral pleural effusions are unchanged. No pneumothorax. Cardiomediastinal contours: Unremarkable Bones: No acute osseous abnormality. IMPRESSION: 1. Endotracheal tube terminates 6.0 cm above the mili, previously 3.1 cm above the mili. Otherwi se, No significant interval change.
--- NOTE | 2024-04-11 07:40 | DVHPN2 ---
Progress Note - Dictate Date Seen: Apr 11, 2024 Has the PT tested + for MRSA If YES, has PT been informed?: No Medical Necessity Reason Pt with a Central, PICC or Fol: Yes The following are medically ne: Central Line, Martines Catheter vital signs Vital Sign Date Time Temp Pulse Resp B/P (MAP) Pulse Ox O2 Delivery O2 Flow Rate FiO2 04/11/24 07:15 90 22 130/66 (87) 96 04/11/24 06:45 98.8 98.8 04/11/24 06:27 40 04/11/24 06:09 Mechanical Ventilator+ Total Intake and Output 04/10/24 04/10/24 04/11/24 14:59 22:59 06:59 Intake Total 617.681 ml 938.561 ml 987.736 ml Output Total 1020 ml 670 ml Balance 617.681 ml -81.439 ml 317.736 ml medications Current Medications Medications Dose Ordered Sig/Destini Route Start Time Stop Time Status Last Admin Dose Admin Heparin Sodium/ Dextrose 250 ml @ 18 mls/hr [id number] IV 03/31/24 23:45 UNV Midazolam HCl 50 ml @ 1 mls/hr Q24H IV 04/01/24 01:30 04/11/24 02:48 8 MLS/HR Ondansetron HCl 4 mg Q4HP PRN IV 04/01/24 05:00 Acetaminophen 650 mg Q6HP PRN PO 04/01/24 05:00 04/05/24 02:09 650 MG Nitroglycerin 0.4 mg Q5MINP PRN SL 04/01/24 05:00 Albuterol 2.5 mg Q6HR NEB 04/01/24 06:00 04/11/24 06:27 2.5 MG Fentanyl Citrate 250 ml @ 2.5 mls/hr Q24H IV 04/02/24 11:15 04/11/24 00:35 2.5 MLS/HR Albumin Human 100 ml @ 100 mls/hr KIRAN PRN IV 04/03/24 07:00 Vancomycin HCl 0 ml @ 0 mls/hr UD IV 04/03/24 12:30 Norepinephrine Bitartrate 32 mg/ Sodium Chloride 250 ml @ 0.469 mls/ hr Q24H IV 04/04/24 06:30 04/08/24 17:08 0.938 MLS/HR Enteral Nutritional Formula 1,000 ml 20ML/HR GT 04/09/24 11:15 04/09/24 22:37 1,000 ML Sodium Chloride 10 ml QSHIFT@10,22 IV 04/09/24 22:00 04/10/24 22:02 10 ML Furosemide 40 mg DAILY IV 04/10/24 10:00 Iron Sucrose 110 ml @ 110 mls/hr DAILY@1200 IV 04/10/24 12:00 04/10/24 14:31 110 MLS/HR Amiodarone HCl 200 mg Q12HR PO 04/10/24 22:00 UNV Amiodarone HCl 200 mg Q12HR PO 04/10/24 22:00 04/10/24 22:01 200 MG Meropenem 50 ml @ 17 mls/hr Q8H IV 04/10/24 18:00 04/11/24 01:59 17 MLS/HR Phenylephrine HCl 80 mg/Sodium Chloride 250 ml @ 7.5 mls/hr Q24H IV 04/10/24 19:30 04/11/24 01:09 33.75 MLS/HR laboratory and microbiology Laboratory Tests 04/11/24 03:45 Test 04/11/24 03:45 Range/Units Serum Glucose 131 H 74-106 mg/dL Assessment/Plan s/p thoracoscopy and chest tube placement Patient is a 68-year-old female who was transferred from [facility]. She originally presented to [facility] for shortness of breath ongoing for few days. She is intubated and is being managed in ICU. Information was obtained by reviewing the chart and communicating with staff. Reportedly, she presented with respiratory failure to [facility] (oxygen saturation was 88%) and over there was found to have white blood cell count of 26.6, hemoglobin of 11.1, creatinine of 5.6, potassium of 5.6 and troponin of 1.01. She was given 365 mg of aspirin in [facility]. She did have an episode of atrial fibrillation with RVR with questionable ST changes and was transferred to our facility for further care. She was also found to have right pleural effusion in [facility] and was diagnosed with non-STEMI. Intubated, on vent support. On pressure support. Obese. Mucosa is pale. Scattered rhonchi in the lungs is heard. Cardiac: Regular, no thrill/gallop. Abdomen is soft with increased bowel sounds. There is no gross mass. Extremities reveal 1+ edema bilaterally. Available past medical history includes obesity and questionable history of psoriasis. WBC: 25.3 - 23.7 - 20.2 - 20.5 - 17.6 - 18.4 - 19.2 - 19.4 - 22.2 - 16.4 - 16.1 - 19.5 - 14.7 - 12.3 - 9.8 Hemoglobin: 10.8 - 9.1 - 8.5 - 8.4 - 8.8 - 8.6 - 8.9 - 8.1 - 8.4 - 8.1 - 8.1 - 8.2 - 8.0 - 7.4 - 7.4 D-dimer: 3.62 Creatinine: 5.67 - 5.78 - 5.41 - 4.92 - 4.55 - 4.68 - 4.71 - 4.64 - 4.48 - 3.83 - 3.66 - 3.65 - 3.25 - 2.82 - 2.41 - 2.34 - 2.01 - 1.90 Potassium: 6.0 - 6.3 - 6.1 - 6.0 - 5.3 - 5.0 - 4.9 - 4.8 - 5.1 - 5.4 - 4.9 - 5.3 - 4.8 - 4.5 - 4.7 - 4.3 - 4.2 - 3.9 - 4.6 - 3.8 - 3.5 Lactic acid: 3.3 - 3.4 - 2.3 - 2.5 - 2.5 - 2.7 - 2.4 - 2.5 - 3.1 - 2.3 - 1.7 - 1.7 TSH: 1.71 BNP: 274.69 - 1944.81 Troponin (high sensitive): 1469 - 1515 - 1684 Blood culture: positive Pleural fluid culture: E-coli Digoxin level: 2.09 Stool OB: positive Chest x-ray revealed: IMPRESSION: 1. Moderate right pleural effusion. 2. Cardiomegaly with mild pulmonary vascular congestion bilaterally. Repeat chest x-ray revealed: IMPRESSION: 1. Endotracheal tube and gastric tubes in place as described. 2. Right IJ central venous catheter projects over the lower SVC. 3. Mild cardiomegaly and prominence of the pulmonary vasculature. 4. Moderate to large right pleural effusion. Repeat chest x-ray revealed: IMPRESSION: Similar lung aeration with large right pleural effusion. No pneumothorax seen. Stable lines and tubes. Repeat chest x-ray revealed: IMPRESSION: Similar lung aeration with large right pleural effusion. No pneumothorax seen. Stable lines and tubes. Repeat chest xry revealed: Lines and tubes: ET in the mid thoracic trachea. NG crosses midline. Right CVC is stable. Left HD catheter projects over the mediastinum. Cardiomediastinal silhouette: Enlarged Pulmonary vasculature: prominent Lung expansion: low Lung airspace: patchy bilateral airspace opacity. Lung interstitium: normal Pleura: Similar large right effusion. Pneumothorax: no Bones: Unremarkable Other: no IMPRESSION: Lines and tubes, as above. Similar lung aeration bilaterally with a right pleural effusion and patchy airspace opacities. Repeat chest xry revealed: IMPRESSION: 1. Stable position of the support lines and tubes. 2. Interstitial and alveolar opacities. Repeat chest xry revealed: IMPRESSION: Unchanged multifocal airspace disease. Small to moderate right pleural effusion ; possibly loculated. Repeat chest xry revealed: IMPRESSION: Lines and tubes in satisfactory position. No significant interval change. Repeat chest xry revealed: IMPRESSION: 1. Support lines and tubes in appropriate position. 2. Pulmonary vascular congestion. 3. Bilateral pleural effusions, right greater than left. Repeat chest xry revealed: IMPRESSION: 1. Support lines and tubes in appropriate position. 2. Pulmonary vascular congestion. 3. Bilateral pleural effusions, right greater than left. Repeat chest xry revealed: IMPRESSION: Interval placement of right chest tube which projects deep into the right hilar region. Repeat chest xry revealed: IMPRESSION: No interval change Repeat chest xry revealed: Findings/IMPRESSION: Right IJ CVC terminating in the SVC. Endotracheal tube projected 5 cm superior to the mili. Enteric tube projected below the GE junction. Right-sided PICC projects terminating near the cavoatrial junction. Small bilateral pleural effusions and/or atelectasis with superimposed infection not excluded. Repeat chest xry revealed: MPRESSION: 1. Bilateral pleural effusions and airspace disease right greater than left. Repeat chest xry revealed: IMPRESSION: 1. Endotracheal tube terminates 6.0 cm above the mili, previously 3.1 cm above the mili. Otherwise, No significant interval change. CT scan of the chest/abdomen and pelvis revealed: IMPRESSION: 1. Moderate partially loculated right pleural effusion and consolidations in the right middle and lower lobes which could be pneumonia and/or atelectasis. 2. Mild cardiomegaly, mild interstitial pulmonary edema, and body wall edema. 3. There is a 1.9 cm calculus in the right UPJ with mild right hydronephrosis 4. There is a 2.6 cm somewhat staghorn appearing calculus in the left renal pelvis and UPJ causing mild predominantly mid to lower pole left hydronephrosis. Mild soft tissue stranding about the left renal pelvis which could be due to obstruction or superimposed infection. Correlate with urinalysis. 5. Partial duplication of the left renal collecting system without hydronephrosis in the upper pole. 6. Moderate right perinephric, right retroperitoneal, and bilateral extraperitoneal pelvis low-density fluid and very mild left retroperitoneal low-density fluid. This could be fluid related to bilateral renal obstructions and forniceal ruptures versus evolved retroperitoneal hematoma. This is suboptimally evaluated without intravenous contrast. 7. Fluid-filled small and large bowel loops which may be physiologic or related to enterocolitis and could be manifesting as loose stools and/or diarrhea. 8. Prominent endometrium measuring at least 2.8 cm, suboptimally evaluated by CT. Recommend characterization with nonemergent pelvic ultrasound if clinically indicated. 9. Mild hepatosplenomegaly. 10. Moderate three-vessel calcified coronary artery disease and mild aortic valve calcification. 11. Right IJ central venous catheter in place terminating in the low SVC. 12. Small soft tissue stranding in the right supraclavicular neck which could be blood products. 13. Endotracheal tube terminates above the mili. CT of the head revealed: IMPRESSION: 1. No acute intracranial abnormality. 2. Generalized cerebral volume loss and mild chronic microvascular ischemic change. 3. Partially imaged endotracheal tube. Chest ultrasound revealed: Findings/Impression: There is a trace bilateral pleural effusion. Thoracentesis: FINDINGS: Moderate size, complex and septated right pleural effusion. Aspirated fluid is thick and green in consistency. IMPRESSION: Right thoracentesis with 250 mL removed for laboratory analysis. EKG in [facility] revealed sinus tachycardia, poor R-wave progression old inferior wall AZ. later EKG revealed atrial fibrillation with RVR. Telemetry reveals sinus rhythm, occasions of A-fib with RVR, SVT Echocardiogram revealed: Technically limited study secondary to poor acoustic windows. Left ventricle: Left ventricle was normal-sized. Mild concentric left ventricular hypertrophy was seen. LVEF was 55-60%. No gross wall motion abnormality was observed, but its presence can not be ruled out on the basis of this study. Right ventricle is mildly dilated with normal systolic function. Left atrium was mildly dilated. Right atrium was normal-sized. Aortic valve was trileaflet. There was no aortic insufficiency. There was aortic sclerosis with no stenosis. There was trivial mitral/tricuspid regurgitation. Pulmonary valve was not well visualized. Right ventricular systolic pressure was assessed around 48 mm Hg. There was no pericardial effusion. Patient is a 68-year-old morbidly obese patient who presented with respiratory failure to the hospital. Presentation is in favor of sepsis/septic shock. Multiorgan failure is observed. She is intubated and on vent support. She is on multiple pressor support. Life findings are in favor of acute renal failure. She also is known to have nephrolithiasis with history of staghorn calculi. Cardiac-ceballos, the patient did have episode of atrial fibrillation with RVR. She is found to have increased troponin. Presentation questions non-STEMI and possibly type 2 ischemia. Recognizing the presentation, ischemic workup should be postponed after clinical stability. Is being followed by Nephrology. Had episodes of tachyarrhythmia. Loaded with Digoxin. Positive cultures. Repeated a-fib with RVR. Septic shock Multiorgan failure Acute respiratory failure on vent support Acute renal failure Nephrolithiasis Staghorn calculi Hydronephrosis Abnormal troponin, non-STEMI Atrial fibrillation with RVR Paroxysmal AFib Acute heart failure, diastolic Hepatosplenomegaly Pleural effusion Status post thoracentesis Morbid obesity s/p Cardioversion for A-fib with RVR s/p thoracoscopy and chest tube placement Cardiac suggestion for management: Manage in ICU Follow-up electrolytes and kidney function tests and correct abnormalities Pressure support to keep mean arterial pressure above 65 Amiodarone oral/O mg BID Heparin drip Daily aspirin (81 mg daily) Loaded with Digoxin Off Lidocaine drip s/p thoracoscopy and chest tube placement IV metoprolol PRN for a-fib with RVR episodes. Sepsis workup and management as per primary team Cardiac ceballos, patient is elevated risk patient for urgent Thoracotomy procedure. You can consider proceeding with procedure under appropriate intra and post operative hemodynamic monitoring. If you choose to proceed with procedure, try to avoid hypotension. Evaluation and management of respiratory failure as per primary team/Pulmonary Evaluation and management of nephrolithiasis/hydronephrosis as per primary/Urology Evaluation and management of acute renal failure as per Nephrology Ischemic workup, after clinical stability (only if regained higher brain function) Further evaluation and management as per above and clinical course. A total of 75 minutes was spent reviewing the patient record, examining the patient, making a diagnostic and therapeutic plan, discussing this plan with medical personnel, following up on diagnostic studies and following the patient for clinical stability excluding any and all procedures. At least 50% of this time was spent in direct, [id number] contact. Thank you for allowing me to participate in this patient's care. Further recommendations will depend on patient's clinical course. Please do not hesitate to contact me if you have any questions or concerns. This medical document was created using electronic medical record system with [employer] computerized dictation system. Although this document has been carefully reviewed, there may still be some phonetic and typographical errors. These areas are purely typographical due to the imperfection of the software programs, and do not reflect any compromise in the patient's medical care. Dietary Evaluation Review Comments: 1) If GI is accessible consider Nepro 1.8 @ 30 ml/hr goal rate as tolerated with current rate of propofol on board. 2) If pt remains NPO >7 days consider TPN to meet at least 75% of estimated needs 3) If pt continues to receive HD, advance pt diet when medically feasible to a Renal Standard diet modified per PHYSICIAN ANESTHESIOLOGIST recommendations 4) If HD is discontinued and GFR is within normal range, advance pt diet to a Regular diet, modified per PHYSICIAN ANESTHESIOLOGIST recommendations 5)If HD is discontinued and GFR lies within STG 1-4, advance pt diet to a Renal Specific K2,lowphos,HECTOR,2gmNa,80gPro diet 6) If HD is discontinued and if GFR returns to normal levels then ALEXANDRA 1 pkt BID with meals may be considered to aid with wound healing 7) Continue current plan of care Expected Outcomes/Goals: 1) Pt to receive nutrition support within 7 days of NPO status 2) Pt labs to improve 3) Pt diet to advance 4) F/U in 2-3 days Plan discussed with: Other (nurse) EHRMINIO JOHNSON MD Apr 11, 2024 07:40
[2024-04-11 07:41] LABS: Base Excess 3.9 mmol/L (-2.0-3.0)
--- NOTE | 2024-04-11 09:03 | DVHPN2 ---
Progress Note Date Seen: Apr 11, 2024 Has the PT tested + for MRSA If YES, has PT been informed?: No Medical Necessity Reason Pt with a Central, PICC or Fol: Yes The following are medically ne: Central Line, Martines Catheter Objective vital signs Vital Sign Date Time Temp Pulse Resp B/P (MAP) Pulse Ox O2 Delivery O2 Flow Rate FiO2 04/11/24 07:15 90 22 130/66 (87) 96 04/11/24 06:45 98.8 98.8 04/11/24 06:27 40 04/11/24 06:09 Mechanical Ventilator+ Total Intake and Output 04/10/24 04/10/24 04/11/24 14:59 22:59 06:59 Intake Total 617.681 ml 938.561 ml 987.736 ml Output Total 1020 ml 670 ml Balance 617.681 ml -81.439 ml 317.736 ml medications Current Medications Medications Dose Ordered Sig/Destini Route Start Time Stop Time Status Last Admin Dose Admin Heparin Sodium/ Dextrose 250 ml @ 18 mls/hr [id number] IV 03/31/24 23:45 UNV Midazolam HCl 50 ml @ 1 mls/hr Q24H IV 04/01/24 01:30 04/11/24 08:23 8 MLS/HR Ondansetron HCl 4 mg Q4HP PRN IV 04/01/24 05:00 Acetaminophen 650 mg Q6HP PRN PO 04/01/24 05:00 04/05/24 02:09 650 MG Nitroglycerin 0.4 mg Q5MINP PRN SL 04/01/24 05:00 Albuterol 2.5 mg Q6HR NEB 04/01/24 06:00 04/11/24 06:27 2.5 MG Fentanyl Citrate 250 ml @ 2.5 mls/hr Q24H IV 04/02/24 11:15 04/11/24 00:35 2.5 MLS/HR Albumin Human 100 ml @ 100 mls/hr KIRAN PRN IV 04/03/24 07:00 Vancomycin HCl 0 ml @ 0 mls/hr UD IV 04/03/24 12:30 Norepinephrine Bitartrate 32 mg/ Sodium Chloride 250 ml @ 0.469 mls/ hr Q24H IV 04/04/24 06:30 04/08/24 17:08 0.938 MLS/HR Enteral Nutritional Formula 1,000 ml 20ML/HR GT 04/09/24 11:15 04/09/24 22:37 1,000 ML Sodium Chloride 10 ml QSHIFT@10,22 IV 04/09/24 22:00 04/10/24 22:02 10 ML Furosemide 40 mg DAILY IV 04/10/24 10:00 Iron Sucrose 110 ml @ 110 mls/hr DAILY@1200 IV 04/10/24 12:00 04/10/24 14:31 110 MLS/HR Amiodarone HCl 200 mg Q12HR PO 04/10/24 22:00 UNV Amiodarone HCl 200 mg Q12HR PO 04/10/24 22:00 04/10/24 22:01 200 MG Meropenem 50 ml @ 17 mls/hr Q8H IV 04/10/24 18:00 04/11/24 01:59 17 MLS/HR Phenylephrine HCl 80 mg/Sodium Chloride 250 ml @ 7.5 mls/hr Q24H IV 04/10/24 19:30 04/11/24 01:09 33.75 MLS/HR laboratory and microbiology Laboratory Tests 04/11/24 03:45 Test 04/11/24 03:45 Range/Units Serum Glucose 131 H 74-106 mg/dL Problem List/Assessment/Plan Problem List/Assessment/Plan 04/04/24I was just notified by anesthesiologists that they were evaluating the patient in the ICU and that she just became hemodynamically unstable and is being dialysed, the plan is to cardiovert her later this PM, I will cancel operation for today, it is also very likely that her sepsis is not due t othe pleural effusion but rather the hydronephrosis and superimposed urinary infection. 04/07/24 according to patient is now stable enough to undergo evacuation of empyema left chest, fluid grew enteric organisms, will attempt thoracoscopy but most likely will need a thoracotomy tomorrow AM.; I had previously explained the procedure and its attendant possible complications to pt's daughter 04/10/24 POST STABLE,CHEST X RAY REVIEWED, CHEST TUBE WITH MINIMAL TO MODERATE PURULENT OUTPUT, NO AIR LEAK, CONTINUE IS 04/11/24 essentially unchanged , chest tube with serosanguineous drainage, still needing BP support, good urine output Plan discussed with: Other Dietary Evaluation Review Comments: 1) If GI is accessible consider Nepro 1.8 @ 30 ml/hr goal rate as tolerated with current rate of propofol on board. 2) If pt remains NPO >7 days consider TPN to meet at least 75% of estimated needs 3) If pt continues to receive HD, advance pt diet when medically feasible to a Renal Standard diet modified per WELDING FOREMAN recommendations 4) If HD is discontinued and GFR is within normal range, advance pt diet to a Regular diet, modified per WELDING FOREMAN recommendations 5)If HD is discontinued and GFR lies within STG 1-4, advance pt diet to a Renal Specific K2,lowphos,HECTOR,2gmNa,80gPro diet 6) If HD is discontinued and if GFR returns to normal levels then ALEXANDRA 1 pkt BID with meals may be considered to aid with wound healing 7) Continue current plan of care Expected Outcomes/Goals: 1) Pt to receive nutrition support within 7 days of NPO status 2) Pt labs to improve 3) Pt diet to advance 4) F/U in 2-3 days SANTY HAZEL MD Apr 11, 2024 09:03
--- NOTE | 2024-04-11 11:31 | DVHPNRES ---
Progress Note Date Seen: Apr 11, 2024 Resident Creating Document: KEVON BLANTON RESIDENT Has the PT tested + for MRSA If YES, has PT been informed?: No Medical Necessity Reason Pt with a Central, PICC or Fol: Yes The following are medically ne: Central Line, Martines Catheter Subjective Review of Systems This is a 68-year-old female with unknown past medical history who was transferred from another facility ([facility]) for higher level of care. The patient initially was treated at that facility for shortness of breaths and back pain. The patient was transferred to our facility for higher level of care. The patient on arrival to the ED was tachypneic with severe respiratory failure, tachycardic rhythm consistent with atrial fibrillation and was saturating in the 70s. Initially placed on non-rebreather mask and then emergently intubated to protect airway. The patient was started on amiodarone drip 1 milligram/minute, phenylephrine, vasopressin and levophed. Patient initially was started on broad-spectrum antibiotics with vancomycin and Zosyn but for renal protection, since GFR was less than 10 and to have a more broad- spectrum coverage we added meropenem and discontinued Zosyn. To the ICU for further assessment and management. Patient seen and examined at bedside. The patient is currently sedated on fentanyl and midazolam. Patient is currently on mechanical ventilator on the following parameters: VT 500, RR 22, FiO2 40%,PEEP 6.0 saturating 95%. Today morning ABG showing a pH of 7.47, pCO2 38.7, HC03 of 27.7 with a PaO2 of 80.8. Consistent with a metabolic alkalosis with respiratory compensation. Today hemoglobin is 7.4 which has been stable in the last couple of days. We will order an hemoglobin and hematocrit to follow up on results. Right chest tube is draining approximately 40 cc of serosanguineous fluid in the last 24 hours. Chest x-ray is still showing right lower lobe opacities but slightly better compared to previous x-rays. Last lactic acid was 1.7. We might consider decreasing PEEP to 5 and decrease slightly RR to 20 and repeat an ABG 45 min afterwards. We will also discontinue amiodarone drip and continue on 200 mg p.o. q.12. Creatinine and BUN are both slightly improving, will hold HD by this time. ROS unable to obtain due to patient's current status, intubation. Objective vital signs Vital Sign Date Time Temp Pulse Resp B/P (MAP) Pulse Ox O2 Delivery O2 Flow Rate FiO2 04/11/24 10:43 76 22 108/49 (68 96 40 04/11/24 10:00 Mechanical Ventilator+ 04/11/24 08:00 99.0 99.0 Total Intake and Output 04/10/24 04/10/24 04/11/24 15:00 23:00 07:00 Intake Total 631.868 ml 923.436 ml 967.319 ml Output Total 1020 ml 670 ml Balance 631.868 ml -96.564 ml 297.319 ml medications Current Medications Medications Dose Ordered Sig/Destini Route Start Time Stop Time Status Last Admin Dose Admin Heparin Sodium/ Dextrose 250 ml @ 18 mls/hr [id number] IV 03/31/24 23:45 UNV Midazolam HCl 50 ml @ 1 mls/hr Q24H IV 04/01/24 01:30 04/11/24 08:23 8 MLS/HR Ondansetron HCl 4 mg Q4HP PRN IV 04/01/24 05:00 Acetaminophen 650 mg Q6HP PRN PO 04/01/24 05:00 04/05/24 02:09 650 MG Nitroglycerin 0.4 mg Q5MINP PRN SL 04/01/24 05:00 Albuterol 2.5 mg Q6HR NEB 04/01/24 06:00 04/11/24 06:27 2.5 MG Fentanyl Citrate 250 ml @ 2.5 mls/hr Q24H IV 04/02/24 11:15 04/11/24 00:35 2.5 MLS/HR Albumin Human 100 ml @ 100 mls/hr KIRAN PRN IV 04/03/24 07:00 Vancomycin HCl 0 ml @ 0 mls/hr UD IV 04/03/24 12:30 Norepinephrine Bitartrate 32 mg/ Sodium Chloride 250 ml @ 0.469 mls/ hr Q24H IV 04/04/24 06:30 04/08/24 17:08 0.938 MLS/HR Enteral Nutritional Formula 1,000 ml 20ML/HR GT 04/09/24 11:15 04/09/24 22:37 1,000 ML Sodium Chloride 10 ml QSHIFT@22 IV 04/09/24 22:00 04/11/24 10:03 10 ML Furosemide 40 mg DAILY IV 04/10/24 10:00 04/11/24 10:03 40 MG Iron Sucrose 110 ml @ 110 mls/hr DAILY@1200 IV 04/10/24 12:00 04/10/24 14:31 110 MLS/HR Amiodarone HCl 200 mg Q12HR PO 04/10/24 22:00 UNV Amiodarone HCl 200 mg Q12HR PO 04/10/24 22:00 04/11/24 10:03 200 MG Meropenem 50 ml @ 17 mls/hr Q8H IV 04/10/24 18:00 04/11/24 10:03 17 MLS/HR Phenylephrine HCl 80 mg/Sodium Chloride 250 ml @ 7.5 mls/hr Q24H IV 04/10/24 19:30 04/11/24 09:43 33.75 MLS/HR Examination Physical Examination General: Patient sedated on mechanical ventilator: VT 500, RR 22, FiO2 40%, PEEP 6, sat 96% HEENT: Normocephalic, atraumatic, moist mucous membranes Respiratory/pulmonary: There are no breath sounds audible in the right lung base and diminished breath sounds on the left lung as well. There is a right sided 40 sized chest tube draining aprox 40cc of serosanguineous fluid into the Pleur-evac in the last 24 hrs. Cardiovascular: Heart sounds currently regular and rhythmic with occasional PACs . No murmurs at this time. Abdomen: Abdomen slightly distended, there is no pain to palpation in any of the abdominal quadrants, no palpable masses. Extremities: There is minimal 1+ pitting edema in the lower extremities bilaterally. Peripheral Pulses: 3+ Radial (R). 3+ Radial (L). 3+ Dorsalis pedis (R). 3+ Dorsalis pedis(L) Skin: There is dry skin in bilateral lower extremities with scales and excoriations. Neurological: Sedated, RASS -3 laboratory and microbiology Laboratory Tests 04/11/24 03:45 Test 04/11/24 03:45 Range/Units Serum Glucose 131 H 74-106 mg/dL Microbiology Date/Time Source Procedure Growth Status 04/09/24 13:10 Blood Blood Culture - Preliminary NO GROWTH AFTER 24 HOURS OF INCUBATION. Resulted 04/08/24 08:02 Thoracic Fluid Gram Stain - Final Resulted 04/08/24 08:02 Thoracic Fluid Anaerobic Culture - Preliminary Resulted 04/08/24 08:02 Thoracic Fluid Aerobic Culture - Preliminary Resulted 04/07/24 07:44 Urine - Martines [place] Urine Culture - Final Complete 04/01/24 11:19 Nose MRSA Screen - Final Complete 03/31/24 22:55 Sputum Endotracheal Wash Gram Stain - Final Complete 03/31/24 22:55 Sputum Endotracheal Wash Respiratory Culture - Final Complete Problem List/Assessment/Plan Problem List/Assessment/Plan Assessment/Plan Neurology Sedation -currently on midazolam and fentanyl Vasopressors -currently on Levophed, vasopressin, phenylephrine Respiratory Acute hypoxic respirtory failure likel due to right-sided pleural effusion and consolidation on right middle and lower lobes -initial chest x-ray showed severe right lower lobe opacities consistent with either consolidation or moderate to severe pleural effusion -CT of the chest and abdomen showed moderate partial loculated right pleural effusion and consolidation on right middle/lower lobes. Mild cardiomegaly and interstitial pulmonary edema. It also showed right hydronephrosis with 1.9 cm calculus into the right UPJ. There is also a 2.6 cm staghorn appearing calculus causing mid to lower pole left hydronephrosis. -the patient was initially started on Zosyn, vancomycin and cefepime. We discontinued Zosyn and cefepime. -we will switch linezolid back to vancomycin due to low platelet. -Continue IV vanco and meropenem -consulted interventional radiologist which performed right-sided thoracentesis removing 250 mL of fluid which were sent to analysis. -currently on mechanical ventilator on the following parameters: VT 500, RR 22, FiO2 40%, PEEP 6, saturating 94%. -Surgical thoracoscopy was performed on 04/08/2024 with evacuation of empyema and insertion of a chest tube draining approximately 200 cc of purulent material. -Right chest tube is draining aprox 40cc in the last 24 hrs. -ABG showing a pH of 7.47, pCO2 38.7, HC03 of 27.7 with a PaO2 of 80.8. Consistent with a metabolic alkalosis with respiratory compensation. -We might consider decreasing PEEP to 5 and decreasing RR to 20. Sepsis in the setting of loculated right-sided pleural effusion (EMPYEMA) and pneumonia -ordered blood cultures, sputum cultures and urine culture -currently on IV meropenem and linezolid -Will monitor plateletes closely -S/P right-sided thoracentesis removing 250 mL of fluids. -chest x-ray this morning showed still right-sided opacities and left opacities in the base of the lung. -Surgical thoracoscopy was performed on 04/08/2024 with evacuation of empyema and insertion of a chest tube draining approximately 200 cc of purulent material. -Right chest tube is draining aprox 40cc in the last 24 hrs. Cardiology Acute on chronic systolic/diastolic heart failure -BNP came back elevated at 274.69 -initial EKG showed sinus tachycardia with PACs but no ST segment elevation or depression at that time -troponins came back elevated at 1469 and peaked up to 1684 -echocardiogram is showing an LVEF of 55-60% with increased RVSP at 48 mmHg and no pericardial effusion NSTEMI type II ? -troponins came back elevated at 1469 and peaked up to 1684 -Trend trops Atrial fibrilation with RVR -CHADS VASC score HAS BLED score -heparin drip was hold for right-sided chest tube placement and david catheter placement -patient underwent atrial flutter with a heart rate of 180 to 200, cardiology decided to perform synchronized cardioversion and continue amiodarone drip. -S/P multiple synchronized cardioversions x6 -Continue amiodarone 200mg PO BID -Discontinue amiodarone drip -patient was given two doses of digoxin but due to high levels of digoxin blood 3rd dose was held Nephrology Bilateral hydronephrosis -CT scan of the chest and abdomen showed right hydronephrosis with 1.9 cm calculus into the right UPJ, there was also a 2.6 cm staghorn appearing calculus causing mid to lower pole left hydronephrosis. -nephrology on board -consulted Urology for bilateral nephrostomy tube placement -David catheter placed on L IJ on 04/08/24 CHRISTOPH likely postobstructive nephropathy -most likely secondary to bilateral renal calculi -creatinine was 1.90 and BUN 73. Kidney function slightly improving -Holding HD at this time since Cr is slightly improving -nephrology and urology on board -consulted Urology for bilateral nephrostomy tube placement, if therapy does not improve patient might need hemodialysis as last resource Nutrition -Continue EN Nepro at 30cc/hr Hyperkalemia -potassium was 4.6 -monitor closely DVT prophylaxys -Hb is at 7.4 but has been stable at this time -Will repeat Hn and Hct if stable will consider start on Enoxaparin 40mg sc QD. Lines: IJ right triple-lumen placed on 03/31/2024 (will remove Central line and place a PICC line) Peripheral in right wrist placed on 03/31/2024 Peripheral in left forearm placed on 03/31/2024 David catheter placed in the left IJ placed on 04/02/2024 (REMOVED) Goals of care discussed with medical team for >23min Critical time spent > 65min Plan discussed with Dr. Rodríguez Plan discussed with: Other My Orders My Orders Orders - KEVON BLANTON RESIDENT Procedure Category Date Status Time Iron Sucrose Complex PHA 04/10/24 In Process (Venofer) 12:00 Abg W/ Co-Ox RT 04/11/24 Logged 04:00 Chest Xray 1 View XY 04/11/24 Resulted 04:00 Communication Order ORDERS 04/11/24 Transmitted 08:25 Communication Order ORDERS 04/11/24 Transmitted 11:06 Dietary Evaluation Review Comments: 1) If GI is accessible consider Nepro 1.8 @ 30 ml/hr goal rate as tolerated with current rate of propofol on board. 2) If pt remains NPO >7 days consider TPN to meet at least 75% of estimated needs 3) If pt continues to receive HD, advance pt diet when medically feasible to a Renal Standard diet modified per LEARNING SUPPORT ASSISTANT recommendations 4) If HD is discontinued and GFR is within normal range, advance pt diet to a Regular diet, modified per LEARNING SUPPORT ASSISTANT recommendations 5)If HD is discontinued and GFR lies within STG 1-4, advance pt diet to a Renal Specific K2,lowphos,HECTOR,2gmNa,80gPro diet 6) If HD is discontinued and if GFR returns to normal levels then ALEXANDRA 1 pkt BID with meals may be considered to aid with wound healing 7) Continue current plan of care Expected Outcomes/Goals: 1) Pt to receive nutrition support within 7 days of NPO status 2) Pt labs to improve 3) Pt diet to advance 4) F/U in 2-3 days Date of Service: Apr 11, 2024 Billing Provider: SIL RODRÍGUEZ MD Common Visit Codes: 33294-[id number] CARE 30-74 MIN KEVON BLANTON Apr 11, 2024 11:31 SIL RODRÍGUEZ MD Apr 11, 2024 20:26
[2024-04-11 12:57] LABS: Hematocrit 24.8 % (36.0-46.0); Hemoglobin 7.7 g/dL (12.2-16.2)
[2024-04-11] MEDS: POTASSIUM CHL 20MEQ/100ML 100 ML IV ONE (13:04)
[2024-04-11 14:40] LABS: Base Excess 5.8 mmol/L (-2.0-3.0)
--- NOTE | 2024-04-11 15:12 | DVHPN2 ---
Progress Note - Dictate Date Seen: Apr 11, 2024 Has the PT tested + for MRSA If YES, has PT been informed?: No Medical Necessity Reason Pt with a Central, PICC or Fol: Yes The following are medically ne: Central Line, Whipple Catheter Subjective remains intubated vital signs Vital Sign Date Time Temp Pulse Resp B/P (MAP) Pulse Ox O2 Delivery O2 Flow Rate FiO2 04/11/24 14:30 79 21 120/61 (80) 97 04/11/24 14:00 Mechanical Ventilator+ 40 40 04/11/24 12:00 98.6 98.6 Total Intake and Output 04/10/24 04/10/24 04/11/24 15:00 23:00 07:00 Intake Total 631.868 ml 923.436 ml 967.319 ml Output Total 1020 ml 670 ml Balance 631.868 ml -96.564 ml 297.319 ml medications Current Medications Medications Dose Ordered Sig/Destini Route Start Time Stop Time Status Last Admin Dose Admin Heparin Sodium/ Dextrose 250 ml @ 18 mls/hr [id number] IV 03/31/24 23:45 UNV Midazolam HCl 50 ml @ 1 mls/hr Q24H IV 04/01/24 01:30 04/11/24 14:16 8 MLS/HR Ondansetron HCl 4 mg Q4HP PRN IV 04/01/24 05:00 Acetaminophen 650 mg Q6HP PRN PO 04/01/24 05:00 04/05/24 02:09 650 MG Nitroglycerin 0.4 mg Q5MINP PRN SL 04/01/24 05:00 Albuterol 2.5 mg Q6HR NEB 04/01/24 06:00 04/11/24 13:10 2.5 MG Albumin Human 100 ml @ 100 mls/hr KIRAN PRN IV 04/03/24 07:00 Vancomycin HCl 0 ml @ 0 mls/hr UD IV 04/03/24 12:30 Norepinephrine Bitartrate 32 mg/ Sodium Chloride 250 ml @ 0.469 mls/ hr Q24H IV 04/04/24 06:30 04/08/24 17:08 0.938 MLS/HR Enteral Nutritional Formula 1,000 ml 20ML/HR GT 04/09/24 11:15 04/09/24 22:37 1,000 ML Sodium Chloride 10 ml QSHIFT@10,22 IV 04/09/24 22:00 04/11/24 10:03 10 ML Furosemide 40 mg DAILY IV 04/10/24 10:00 04/11/24 10:03 40 MG Iron Sucrose 110 ml @ 110 mls/hr DAILY@1200 IV 04/10/24 12:00 04/11/24 12:05 110 MLS/HR Amiodarone HCl 200 mg Q12HR PO 04/10/24 22:00 UNV Amiodarone HCl 200 mg Q12HR PO 04/10/24 22:00 04/11/24 10:03 200 MG Meropenem 50 ml @ 17 mls/hr Q8H IV 04/10/24 18:00 04/11/24 10:03 17 MLS/HR Phenylephrine HCl 80 mg/Sodium Chloride 250 ml @ 7.5 mls/hr Q24H IV 04/10/24 19:30 04/11/24 09:43 33.75 MLS/HR objective obese white female intubated sedated rrr rales 1+ edema whipple cloudy urine laboratory and microbiology Laboratory Tests 04/11/24 12:36 04/11/24 03:45 Test 04/11/24 03:45 Range/Units Serum Glucose 131 H 74-106 mg/dL Assessment/Plan Acute kidney injury due to ATN/hemodynamic from shock, requiring intermittent hemodialysis Acute respiratory failure, intubated on ventilator Right thoracoscopy, evacuation of empyema, insertion of chest tube on 04/08 NSTEMI septic shock empyema metabolic acidosis resolved b/l renal stones w/ hydronephrosis--possible staghorn morbid obesity s/p hyperkalemia afib RVR Recommendations Renal function improving without dialysis Urine output has been better Continue Lasix IV daily Urology consult recommended once stable obtain US kidney to determine if hydronephrosis remains Remains on vasopressors dc jair cath -removed 04/09 free water Dietary Evaluation Review Comments: 1) If GI is accessible consider Nepro 1.8 @ 30 ml/hr goal rate as tolerated with current rate of propofol on board. 2) If pt remains NPO >7 days consider TPN to meet at least 75% of estimated needs 3) If pt continues to receive HD, advance pt diet when medically feasible to a Renal Standard diet modified per NEUROSCIENCE SPECIALIST recommendations 4) If HD is discontinued and GFR is within normal range, advance pt diet to a Regular diet, modified per NEUROSCIENCE SPECIALIST recommendations 5)If HD is discontinued and GFR lies within STG 1-4, advance pt diet to a Renal Specific K2,lowphos,HECTOR,2gmNa,80gPro diet 6) If HD is discontinued and if GFR returns to normal levels then ALEXANDRA 1 pkt BID with meals may be considered to aid with wound healing 7) Continue current plan of care Expected Outcomes/Goals: 1) Pt to receive nutrition support within 7 days of NPO status 2) Pt labs to improve 3) Pt diet to advance 4) F/U in 2-3 days Plan discussed with: Other KLEVER VILLALBA MD Apr 11, 2024 15:12
[2024-04-11] MEDS: fentaNYL Drip 2500mCg/250mlNS 250 ML IV SCH (15:13)
--- NOTE | 2024-04-11 16:02 | DVH ---
INDICATION: CHRISTOPH. TECHNIQUE: Multiple real-time sonographic images of the kidneys and bladder were obtained. COMPARISON: None FINDINGS: RIGHT kidney measures 13. cm in length. There is a 0.3 x 1.7 by 0.8 cm calculus in the upper pole of the right kidney with no hydronephrosis. No hydronephrosis. LEFT kidney measures 10.2 cm in length. There is a 1.4 x 1.2 x 0.4 cm calculus midpole of the left k idney with mild hydronephrosis. Yes hydronephrosis. No large intraluminal masses are seen in the bladder. Martines catheter is noted in the bladder. IMPRESSION: 1. Right kidney measures 13.4 cm. Decreased cortical thickness on the right. 2. Left kidney measures 10.2 cm. 3. No hydronephrosis on the right grade 1 hydronephrosis on the left. 4. Bilateral renal calculi. HS:Y
[2024-04-11] MEDS: VANCOMYCIN 1GM/200ML PREMIX 250 ML IV ONE (16:59)
[2024-04-12] VITALS (104 sets, daily range): BP systolic 82–169; BP diastolic 42–92; PULSE 73–103; RESP 15–27; TEMP 97.4–100; O2SAT 93–100
[2024-04-12 04:58] LABS: Basophils % (auto) 0.5 % (0.0-2.0); Eosinophils # (auto) 0.3 10 ^3/uL (0-0.8); Lymphocytes # (auto) 0.7 10 ^3/uL (0.4-5.4); Lymphocytes % (auto) 7.4 % (10.0-50.0)
[2024-04-12 05:02] LABS: Basophils # (auto) 0.1 10 ^3/uL (0-0.2); Eosinophils % (auto) 2.9 % (0.0-7.0); Hematocrit 22.9 % (36.0-46.0); Hemoglobin 7.1 g/dL (12.2-16.2); Mean Corpuscular Hgb Conc. 30.9 g/dL (32.0-36.0); Monocytes # (auto) 0.7 10 ^3/uL (0-1.3); Monocytes % (auto) 6.5 % (0.0-12.0); Neutrophils # (auto) 8.3 10 ^3/uL (1.6-8.6); Neutrophils % (auto) 82.7 % (37.0-80.0); Nucleated Red Blood Cells % 0.3 %; Platelet Count (auto) 212 10^3/uL (140-450); Red Blood Cells 2.72 10^6/uL (4.0-5.20); Red Cell Distribution Width 19.6 % (11.8-14.3)
[2024-04-12 05:41] LABS: Chloride 117 mmol/L (98-107); Potassium 3.3 mmol/L (3.5-5.1); Sodium 153 mmol/L (136-145)
[2024-04-12 05:42] LABS: Anion Gap 11 (5-15); Calcium 7.4 mg/dL (8.7-10.4); Carbon Dioxide 25 mmol/L (20-31)
[2024-04-12 05:47] LABS: BUN/Creatinine Ratio 35.6 (10.0-20.0); Glucose 107 mg/dL (74-106)
[2024-04-12 05:48] LABS: Blood Urea Nitrogen 57 mg/dL (9-23); Magnesium 2.1 mg/dL (1.6-2.6)
--- NOTE | 2024-04-12 06:38 | DVH ---
CHEST RADIOGRAPH Indication:reevaluate right lower lobe Technique: Single frontal view of the chest was obtained Comparison: XY CHEST XRAY 1 VIEW on DOS: 04/11/24, XY CHEST XRAY 1 VIEW on DOS: 04/10/24, XY CHEST PO RTABLE on DOS: 04/09/24, XY CHEST XRAY 1 VIEW on DOS: 04/09/24, XY CHEST PORTABLE on DOS: 04/08/24, XY C HEST XRAY 1 VIEW on DOS: 04/11/24 FINDINGS: Lines and Tubes: The endotracheal tube terminates 6.0 cm above the mili. The enteric tube courses b elow the left hemidiaphragm and the tip extends outside the field of view. Right PICC terminates in t he superior vena cava. Lungs: Bilateral airspace disease similar to prior study. Pleura: Bilateral pleural effusions are unchanged. No pneumothorax. Cardiomediastinal contours: Unremarkable Bones: No acute osseous abnormality. IMPRESSION: 1. Endotracheal tube terminates 6.0 cm above the mili, previously 3.1 cm above the mili. Otherwi se, No significant interval change.
[2024-04-12] MEDS: POTASSIUM CHL 20MEQ/100ML 100 ML IV ONE (07:49)
[2024-04-12 08:32] LABS: Base Excess 1.5 mmol/L (-2.0-3.0)
[2024-04-12] MEDS: FREE WATER GT SCH (09:44)
[2024-04-12] MEDS: FUROSEMIDE 20 MG/2 ML VIAL IV SCH (09:47)
[2024-04-12] MEDS: LINEZOLID 600MG/300ML 300 ML IV SCH (09:47)
--- NOTE | 2024-04-12 09:58 | DVHPN2 ---
Progress Note - Dictate Date Seen: Apr 12, 2024 Has the PT tested + for MRSA If YES, has PT been informed?: No Medical Necessity Reason Pt with a Central, PICC or Fol: Yes The following are medically ne: Central Line, Mart[place] Catheter vital signs Vital Sign Date Time Temp Pulse Resp B/P (MAP) Pulse Ox O2 Delivery O2 Flow Rate FiO2 04/12/24 09:50 97 20 123/62 (82) 98 40 04/12/24 08:00 Mechanical Ventilator+ 04/12/24 04:00 99.6 99.6 Total Intake and Output 04/11/24 04/11/24 04/12/24 15:00 23:00 07:00 Intake Total 570.250 ml 1119.00 ml 476.00 ml Output Total 875 ml 800 ml Balance 570.250 ml 244.00 ml -324.00 ml medications Current Medications Medications Dose Ordered Sig/Destini Route Start Time Stop Time Status Last Admin Dose Admin Heparin Sodium/ Dextrose 250 ml @ 18 mls/hr [id number] IV 03/31/24 23:45 UNV Midazolam HCl 50 ml @ 1 mls/hr Q24H IV 04/01/24 01:30 04/12/24 07:50 8 MLS/HR Ondansetron HCl 4 mg Q4HP PRN IV 04/01/24 05:00 Acetaminophen 650 mg Q6HP PRN PO 04/01/24 05:00 04/05/24 02:09 650 MG Nitroglycerin 0.4 mg Q5MINP PRN SL 04/01/24 05:00 Albuterol 2.5 mg Q6HR NEB 04/01/24 06:00 04/12/24 06:36 2.5 MG Albumin Human 100 ml @ 100 mls/hr KIRAN PRN IV 04/03/24 07:00 Norepinephrine Bitartrate 32 mg/ Sodium Chloride 250 ml @ 0.469 mls/ hr Q24H IV 04/04/24 06:30 04/08/24 17:08 0.938 MLS/HR Enteral Nutritional Formula 1,000 ml 20ML/HR GT 04/09/24 11:15 04/09/24 22:37 1,000 ML Sodium Chloride 10 ml QSHIFT@ IV 04/09/24 22:00 04/12/24 09:44 10 ML Iron Sucrose 110 ml @ 110 mls/hr DAILY@1200 IV 04/10/24 12:00 04/11/24 12:05 110 MLS/HR Amiodarone HCl 200 mg Q12HR PO 04/10/24 22:00 UNV Amiodarone HCl 200 mg Q12HR PO 04/10/24 22:00 04/12/24 09:48 200 MG Meropenem 50 ml @ 17 mls/hr Q8H IV 04/10/24 18:00 04/12/24 02:26 17 MLS/HR Phenylephrine HCl 80 mg/Sodium Chloride 250 ml @ 7.5 mls/hr Q24H IV 04/10/24 19:30 04/12/24 00:57 33.75 MLS/HR Fentanyl Citrate 250 ml @ 2.5 mls/hr Q24H IV 04/11/24 15:15 Linezolid 300 ml @ 150 mls/hr Q12HR IV 04/12/24 10:00 04/12/24 09:47 150 MLS/HR Purified Water 200 ml Q3HR GT 04/12/24 09:30 04/12/24 09:44 200 ML Furosemide 20 mg DAILY IV 04/12/24 09:30 04/12/24 09:47 20 MG laboratory and microbiology Laboratory Tests 04/12/24 04:19 Test 04/12/24 04:19 Range/Units Serum Glucose 107 H 74-106 mg/dL Assessment/Plan s/p thoracoscopy and chest tube placement Patient is a 68-year-old female who was transferred from [facility]. She originally presented to [facility] for shortness of breath ongoing for few days. She is intubated and is being managed in ICU. Information was obtained by reviewing the chart and communicating with staff. Reportedly, she presented with respiratory failure to [facility] (oxygen saturation was 88%) and over there was found to have white blood cell count of 26.6, hemoglobin of 11.1, creatinine of 5.6, potassium of 5.6 and troponin of 1.01. She was given 365 mg of aspirin in [facility]. She did have an episode of atrial fibrillation with RVR with questionable ST changes and was transferred to our facility for further care. She was also found to have right pleural effusion in [facility] and was diagnosed with non-STEMI. Intubated, on vent support. On pressure support. Obese. Mucosa is pale. Scattered rhonchi in the lungs is heard. Cardiac: Regular, no thrill/gallop. Abdomen is soft with increased bowel sounds. There is no gross mass. Extremities reveal 1+ edema bilaterally. Available past medical history includes obesity and questionable history of psoriasis. WBC: 25.3 - 23.7 - 20.2 - 20.5 - 17.6 - 18.4 - 19.2 - 19.4 - 22.2 - 16.4 - 16.1 - 19.5 - 14.7 - 12.3 - 9.8 - 10.0 Hemoglobin: 10.8 - 9.1 - 8.5 - 8.4 - 8.8 - 8.6 - 8.9 - 8.1 - 8.4 - 8.1 - 8.1 - 8.2 - 8.0 - 7.4 - 7.4 - 7.7 - 7.1 D-dimer: 3.62 Creatinine: 5.67 - 5.78 - 5.41 - 4.92 - 4.55 - 4.68 - 4.71 - 4.64 - 4.48 - 3.83 - 3.66 - 3.65 - 3.25 - 2.82 - 2.41 - 2.34 - 2.01 - 1.90 - 1.60 Potassium: 6.0 - 6.3 - 6.1 - 6.0 - 5.3 - 5.0 - 4.9 - 4.8 - 5.1 - 5.4 - 4.9 - 5.3 - 4.8 - 4.5 - 4.7 - 4.3 - 4.2 - 3.9 - 4.6 - 3.8 - 3.5 - 3.3 Lactic acid: 3.3 - 3.4 - 2.3 - 2.5 - 2.5 - 2.7 - 2.4 - 2.5 - 3.1 - 2.3 - 1.7 - 1.7 TSH: 1.71 BNP: 274.69 - 1944.81 Troponin (high sensitive): 1469 - 5579 - 1684 Blood culture: positive Pleural fluid culture: E-coli Digoxin level: 2.09 Stool OB: positive Chest x-ray revealed: IMPRESSION: 1. Moderate right pleural effusion. 2. Cardiomegaly with mild pulmonary vascular congestion bilaterally. Repeat chest x-ray revealed: IMPRESSION: 1. Endotracheal tube and gastric tubes in place as described. 2. Right IJ central venous catheter projects over the lower SVC. 3. Mild cardiomegaly and prominence of the pulmonary vasculature. 4. Moderate to large right pleural effusion. Repeat chest x-ray revealed: IMPRESSION: Similar lung aeration with large right pleural effusion. No pneumothorax seen. Stable lines and tubes. Repeat chest x-ray revealed: IMPRESSION: Similar lung aeration with large right pleural effusion. No pneumothorax seen. Stable lines and tubes. Repeat chest xry revealed: Lines and tubes: ET in the mid thoracic trachea. NG crosses midline. Right CVC is stable. Left HD catheter projects over the mediastinum. Cardiomediastinal silhouette: Enlarged Pulmonary vasculature: prominent Lung expansion: low Lung airspace: patchy bilateral airspace opacity. Lung interstitium: normal Pleura: Similar large right effusion. Pneumothorax: no Bones: Unremarkable Other: no IMPRESSION: Lines and tubes, as above. Similar lung aeration bilaterally with a right pleural effusion and patchy airspace opacities. Repeat chest xry revealed: IMPRESSION: 1. Stable position of the support lines and tubes. 2. Interstitial and alveolar opacities. Repeat chest xry revealed: IMPRESSION: Unchanged multifocal airspace disease. Small to moderate right pleural effusion ; possibly loculated. Repeat chest xry revealed: IMPRESSION: Lines and tubes in satisfactory position. No significant interval change. Repeat chest xry revealed: IMPRESSION: 1. Support lines and tubes in appropriate position. 2. Pulmonary vascular congestion. 3. Bilateral pleural effusions, right greater than left. Repeat chest xry revealed: IMPRESSION: 1. Support lines and tubes in appropriate position. 2. Pulmonary vascular congestion. 3. Bilateral pleural effusions, right greater than left. Repeat chest xry revealed: IMPRESSION: Interval placement of right chest tube which projects deep into the right hilar region. Repeat chest xry revealed: IMPRESSION: No interval change Repeat chest xry revealed: Findings/IMPRESSION: Right IJ CVC terminating in the SVC. Endotracheal tube projected 5 cm superior to the mili. Enteric tube projected below the GE junction. Right-sided PICC projects terminating near the cavoatrial junction. Small bilateral pleural effusions and/or atelectasis with superimposed infection not excluded. Repeat chest xry revealed: MPRESSION: 1. Bilateral pleural effusions and airspace disease right greater than left. Repeat chest xry revealed: IMPRESSION: 1. Endotracheal tube terminates 6.0 cm above the mili, previously 3.1 cm above the mili. Otherwise, No significant interval change. Repeat chest xry revealed: IMPRESSION: 1. Endotracheal tube terminates 6.0 cm above the mili, previously 3.1 cm above the mili. Otherwise, No significant interval change. Renal ultrasound revealed: IMPRESSION: 1. Right kidney measures 13.4 cm. Decreased cortical thickness on the right. 2. Left kidney measures 10.2 cm. 3. No hydronephrosis on the right grade 1 hydronephrosis on the left. 4. Bilateral renal calculi. CT scan of the chest/abdomen and pelvis revealed: IMPRESSION: 1. Moderate partially loculated right pleural effusion and consolidations in the right middle and lower lobes which could be pneumonia and/or atelectasis. 2. Mild cardiomegaly, mild interstitial pulmonary edema, and body wall edema. 3. There is a 1.9 cm calculus in the right UPJ with mild right hydronephrosis 4. There is a 2.6 cm somewhat staghorn appearing calculus in the left renal pelvis and UPJ causing mild predominantly mid to lower pole left hydronephrosis. Mild soft tissue stranding about the left renal pelvis which could be due to obstruction or superimposed infection. Correlate with urinalysis. 5. Partial duplication of the left renal collecting system without hydronephrosis in the upper pole. 6. Moderate right perinephric, right retroperitoneal, and bilateral extraperitoneal pelvis low-density fluid and very mild left retroperitoneal low-density fluid. This could be fluid related to bilateral renal obstructions and forniceal ruptures versus evolved retroperitoneal hematoma. This is suboptimally evaluated without intravenous contrast. 7. Fluid-filled small and large bowel loops which may be physiologic or related to enterocolitis and could be manifesting as loose stools and/or diarrhea. 8. Prominent endometrium measuring at least 2.8 cm, suboptimally evaluated by CT. Recommend characterization with nonemergent pelvic ultrasound if clinically indicated. 9. Mild hepatosplenomegaly. 10. Moderate three-vessel calcified coronary artery disease and mild aortic valve calcification. 11. Right IJ central venous catheter in place terminating in the low SVC. 12. Small soft tissue stranding in the right supraclavicular neck which could be blood products. 13. Endotracheal tube terminates above the mili. CT of the head revealed: IMPRESSION: 1. No acute intracranial abnormality. 2. Generalized cerebral volume loss and mild chronic microvascular ischemic change. 3. Partially imaged endotracheal tube. Chest ultrasound revealed: Findings/Impression: There is a trace bilateral pleural effusion. Thoracentesis: FINDINGS: Moderate size, complex and septated right pleural effusion. Aspirated fluid is thick and green in consistency. IMPRESSION: Right thoracentesis with 250 mL removed for laboratory analysis. EKG in [facility] revealed sinus tachycardia, poor R-wave progression old inferior wall DE. later EKG revealed atrial fibrillation with RVR. Telemetry reveals sinus rhythm, occasions of A-fib with RVR, SVT Echocardiogram revealed: Technically limited study secondary to poor acoustic windows. Left ventricle: Left ventricle was normal-sized. Mild concentric left ventricular hypertrophy was seen. LVEF was 55-60%. No gross wall motion abnormality was observed, but its presence can not be ruled out on the basis of this study. Right ventricle is mildly dilated with normal systolic function. Left atrium was mildly dilated. Right atrium was normal-sized. Aortic valve was trileaflet. There was no aortic insufficiency. There was aortic sclerosis with no stenosis. There was trivial mitral/tricuspid regurgitation. Pulmonary valve was not well visualized. Right ventricular systolic pressure was assessed around 48 mm Hg. There was no pericardial effusion. Patient is a 68-year-old morbidly obese patient who presented with respiratory failure to the hospital. Presentation is in favor of sepsis/septic shock. Multiorgan failure is observed. She is intubated and on vent support. She is on multiple pressor support. Life findings are in favor of acute renal failure. She also is known to have nephrolithiasis with history of staghorn calculi. Cardiac-ceballos, the patient did have episode of atrial fibrillation with RVR. She is found to have increased troponin. Presentation questions non-STEMI and possibly type 2 ischemia. Recognizing the presentation, ischemic workup should be postponed after clinical stability. Is being followed by Nephrology. Had episodes of tachyarrhythmia. Loaded with Digoxin. Positive cultures. Repeated a-fib with RVR. Septic shock Multiorgan failure Acute respiratory failure on vent support Acute renal failure Nephrolithiasis Staghorn calculi Hydronephrosis Abnormal troponin, non-STEMI Atrial fibrillation with RVR Paroxysmal AFib Acute heart failure, diastolic Hepatosplenomegaly Pleural effusion Status post thoracentesis Morbid obesity s/p Cardioversion for A-fib with RVR s/p thoracoscopy and chest tube placement Cardiac suggestion for management: Manage in ICU Follow-up electrolytes and kidney function tests and correct abnormalities Pressure support to keep mean arterial pressure above 65 Amiodarone oral/O mg BID Heparin drip Daily aspirin (81 mg daily) Loaded with Digoxin Off Lidocaine drip s/p thoracoscopy and chest tube placement IV metoprolol PRN for a-fib with RVR episodes. Sepsis workup and management as per primary team Cardiac ceballos, patient is elevated risk patient for urgent Thoracotomy procedure. You can consider proceeding with procedure under appropriate intra and post operative hemodynamic monitoring. If you choose to proceed with procedure, try to avoid hypotension. Evaluation and management of respiratory failure as per primary team/Pulmonary Evaluation and management of nephrolithiasis/hydronephrosis as per primary/Urology Evaluation and management of acute renal failure as per Nephrology Ischemic workup, after clinical stability (only if regained higher brain function) Further evaluation and management as per above and clinical course. A total of 75 minutes was spent reviewing the patient record, examining the patient, making a diagnostic and therapeutic plan, discussing this plan with medical personnel, following up on diagnostic studies and following the patient for clinical stability excluding any and all procedures. At least 50% of this time was spent in direct, [id number] contact. Thank you for allowing me to participate in this patient's care. Further recommendations will depend on patient's clinical course. Please do not hesitate to contact me if you have any questions or concerns. This medical document was created using electronic medical record system with [employer] computerized dictation system. Although this document has been carefully reviewed, there may still be some phonetic and typographical errors. These areas are purely typographical due to the imperfection of the software programs, and do not reflect any compromise in the patient's medical care. Dietary Evaluation Review Comments: 1) If GI is accessible consider Nepro 1.8 @ 30 ml/hr goal rate as tolerated with current rate of propofol on board. 2) If pt remains NPO >7 days consider TPN to meet at least 75% of estimated needs 3) If pt continues to receive HD, advance pt diet when medically feasible to a Renal Standard diet modified per MATERIAL INSPECTOR recommendations 4) If HD is discontinued and GFR is within normal range, advance pt diet to a Regular diet, modified per MATERIAL INSPECTOR recommendations 5)If HD is discontinued and GFR lies within STG 1-4, advance pt diet to a Renal Specific K2,lowphos,HECTOR,2gmNa,80gPro diet 6) If HD is discontinued and if GFR returns to normal levels then ALEXANDRA 1 pkt BID with meals may be considered to aid with wound healing 7) Continue current plan of care Expected Outcomes/Goals: 1) Pt to receive nutrition support within 7 days of NPO status 2) Pt labs to improve 3) Pt diet to advance 4) F/U in 2-3 days Plan discussed with: Other (nurse) HERMINIO JOHNSON MD Apr 12, 2024 09:58
[2024-04-12] MEDS ORDERED: FREE WATER GT SCH (10:00)
[2024-04-12] MEDS: methylPREDNISolone SOD SUCC 40 MG/ML VL IV ONE (10:01)
[2024-04-12] MEDS: POTASSIUM EFFERVESENT TAB 25 MEQ GT ONE (10:35)
[2024-04-12] MEDS: diphenhdrAMINE HCL 50 MG/1 ML VL IV SCH (11:26)
--- NOTE | 2024-04-12 12:52 | DVHPN2 ---
Subjective Skin rash reported this morning by nursing Reviewed: Care Plan, H&P, Labs, Medications, Previous Orders, Radiology, Other (Consultants) Changes from previous H/P or p: No Changes Objective Vitals Vital Signs Date Time Temp Pulse Resp B/P (MAP) Pulse Ox O2 Delivery O2 Flow Rate FiO2 04/12/24 12:30 75 24 123/60 (81) 96 04/12/24 12:00 99.2 99.2 04/12/24 12:00 40 04/12/24 12:00 Mechanical Ventilator+ Intake/Output Intake and Output 04/12/24 07:00 Intake Total 2200.125 ml Output Total 1675 ml Balance 525.125 ml Intake Oral 90 ml IV Total 1630.125 ml Tube Feeding 480 ml Output Urine Total 1675 ml Chest Tube Drainage Total 0 ml General Appearance: Other (Intubated and sedated) HEENT: Atraumatic Lungs: Other (Few crackles bilateral lungs) Cardiovascular: Regular rate Abdomen: Soft Skin: Other (Mostly macular rash in the abdominal and chest in area. Also redness in the lower abdominal folds and inguinal areas) Medications Current Medications Medications Dose Ordered Sig/Destini Route Start Time Stop Time Status Last Admin Dose Admin Heparin Sodium/ Dextrose 250 ml @ 18 mls/hr [id number] IV 03/31/24 23:45 UNV Midazolam HCl 50 ml @ 1 mls/hr Q24H IV 04/01/24 01:30 04/12/24 07:50 8 MLS/HR Ondansetron HCl 4 mg Q4HP PRN IV 04/01/24 05:00 Acetaminophen 650 mg Q6HP PRN PO 04/01/24 05:00 04/05/24 02:09 650 MG Nitroglycerin 0.4 mg Q5MINP PRN SL 04/01/24 05:00 Albuterol 2.5 mg Q6HR NEB 04/01/24 06:00 04/12/24 06:36 2.5 MG Albumin Human 100 ml @ 100 mls/hr KIRAN PRN IV 04/03/24 07:00 Norepinephrine Bitartrate 32 mg/ Sodium Chloride 250 ml @ 0.469 mls/ hr Q24H IV 04/04/24 06:30 04/08/24 17:08 0.938 MLS/HR Enteral Nutritional Formula 1,000 ml 20ML/HR GT 04/09/24 11:15 04/12/24 10:35 1,000 ML Sodium Chloride 10 ml QSHIFT@10,22 IV 04/09/24 22:00 04/12/24 09:44 10 ML Iron Sucrose 110 ml @ 110 mls/hr DAILY@1200 IV 04/10/24 12:00 04/12/24 11:26 110 MLS/HR Amiodarone HCl 200 mg Q12HR PO 04/10/24 22:00 UNV Amiodarone HCl 200 mg Q12HR PO 04/10/24 22:00 04/12/24 09:48 200 MG Phenylephrine HCl 80 mg/Sodium Chloride 250 ml @ 7.5 mls/hr Q24H IV 04/10/24 19:30 04/12/24 00:57 33.75 MLS/HR Fentanyl Citrate 250 ml @ 2.5 mls/hr Q24H IV 04/11/24 15:15 Linezolid 300 ml @ 150 mls/hr Q12HR IV 04/12/24 10:00 04/12/24 09:47 150 MLS/HR Purified Water 200 ml Q3HR GT 04/12/24 09:30 04/12/24 11:26 200 ML Furosemide 20 mg DAILY IV 04/12/24 09:30 04/12/24 09:47 20 MG Diphenhydramine HCl 25 mg Q6HR IV 04/12/24 12:00 04/13/24 07:00 04/12/24 11:26 25 MG Nystatin 1 applic BID TOP 04/12/24 22:00 Levofloxacin/ Dextrose 100 ml @ 100 mls/hr DAILY IV 04/13/24 10:00 UNV Laboratory Results Laboratory Tests 04/12/24 04:19 Chemistry Test 04/12/24 04:19 Calcium Level 7.4 mg/dL (8.7-10.4) L Magnesium Level 2.1 mg/dL (1.6-2.6) Urinalysis Test 03/31/24 20:42 Urine Color [place] (Yellow) H Urine Clarity Ex.turbid (Clear) Urine pH 5.5 (5.0-9.0) Urine Specific [place] 1.020 (1.001-1.035) Urine Protein 2+ (Negative) H Urine Ketones Trace (Negative) Urine Blood 3+ /uL (Negative) H Urine Nitrite Negative (Negative) Urine Bilirubin Negative (Negative) Urine Urobilinogen 2 mg/dL (Negative) H Urine Leukocyte Esterase 3+ /uL (Negative) Urine RBC 508 /hpf (0 - 4) Urine WBC 2451 /hpf (0 - 5) Urine WBC Clumps Present /hpf (None Seen) Urine Squamous Epithelial Cells None seen /hpf (<5) Urine Bacteria Mod /hpf (None Seen) H Urine Mucus Few (None Seen) Urine Glucose Normal mg/dL (Normal) Blood Gas Results Test 04/11/24 14:23 04/12/24 07:55 Arterial Blood pH 7.463 (7.350-7.450) 7.464 (7.350-7.450) FiO2 % 40.0 40.0 Microbiology Microbiology Date/Time Source Procedure Growth Status 04/09/24 13:10 Blood Blood Culture - Preliminary NO GROWTH AFTER 48 HOURS OF INCUBATION. Resulted 04/08/24 08:02 Thoracic Fluid Gram Stain - Final Resulted 04/08/24 08:02 Thoracic Fluid Anaerobic Culture - Preliminary Resulted 04/08/24 08:02 Thoracic Fluid Aerobic Culture - Preliminary Resulted 04/07/24 07:44 Urine - [place] Urine Culture - Final Complete 04/01/24 11:19 Nose MRSA Screen - Final Complete 03/31/24 22:55 Sputum Endotracheal Wash Gram Stain - Final Complete 03/31/24 22:55 Sputum Endotracheal Wash Respiratory Culture - Final Complete Assessment/Plan Assessment/Plan Acute respiratory failure Multi organ failure Sepsis and septic shock Non-STEMI Pleural effusion and chest tube AFib with RVR Diastolic heart failure Hypernatremia Acute kidney injury/resolved Kidney stone Morbid obesity Hypokalemia Severe anemia Skin rash likely secondary to the antibiotics Plan: We will increase the free water to help with the sodium level. Correct the potassium. Discontinue vancomycin and start Zyvox. Discontinue meropenem and start Levaquin due to the skin rash. Nystatin for the inguinal and the skin folds in the abdomen neck. Further plan per orders. Total critical care time spent on the case 50 minutes Plan discussed with: Other (Nursing) My Orders Orders - SIL RODRÍGUEZ MD Procedure Category Date Status Time Linezolid 600mg/300ml PHA 04/12/24 In Process (Zyvox) 10:00 Free Water PHA 04/12/24 In Process 09:30 Complete Blood Count LAB 04/13/24 Verified 06:00 Comprehensive LAB 04/13/24 Verified Metabolic Panel 06:00 B-Type Natriuretic LAB 04/13/24 Verified Peptide 06:00 Chest Portable XY 04/13/24 Logged 06:00 Abg W/ Co-Ox RT 04/13/24 Logged 06:00 Furosemide Injection PHA 04/12/24 In Process (Lasix Injection) 09:30 Diphenhdramine PHA 04/12/24 In Process Injection (Benadryl 12:00 Nystatin Powder PHA 04/12/24 In Process (Mycostatin Powder) 22:00 Levofloxacin 500mg PHA 04/13/24 Logged (Levaquin 500mg/ 100m 10:00 Levofloxacin 500mg PHA 04/12/24 Logged (Levaquin 500mg/ 100m 12:45 Prothrombin Time W/ LAB 04/13/24 Verified INR 06:00 Chest Portable XY 04/13/24 Logged 06:00 Abg W/ Co-Ox RT 04/13/24 Logged 06:00 Date of Service: Apr 12, 2024 Billing Provider: SIL RODRÍGUEZ MD Common Visit Codes: [id number] CARE 30-74 MIN SIL RODRÍGUEZ MD Apr 12, 2024 12:52
[2024-04-12] MEDS: levoFLOXacin 500MG 100 ML IV ONE (14:13)
--- NOTE | 2024-04-12 16:46 | DVHPN2 ---
Progress Note - Dictate Date Seen: Apr 12, 2024 Has the PT tested + for MRSA If YES, has PT been informed?: No Medical Necessity Reason Pt with a Central, PICC or Fol: Yes The following are medically ne: Central Line, Whipple Catheter Subjective remains intubated vital signs Vital Sign Date Time Temp Pulse Resp B/P (MAP) Pulse Ox O2 Delivery O2 Flow Rate FiO2 04/12/24 16:00 98.9 86 22 105/56 (72) 96 98.9 04/12/24 16:00 40 04/12/24 16:00 Mechanical Ventilator+ Total Intake and Output 04/11/24 04/11/24 04/12/24 15:00 23:00 07:00 Intake Total 570.250 ml 1119.00 ml 510.875 ml Output Total 875 ml 800 ml Balance 570.250 ml 244.00 ml -289.125 ml medications Current Medications Medications Dose Ordered Sig/Destini Route Start Time Stop Time Status Last Admin Dose Admin Heparin Sodium/ Dextrose 250 ml @ 18 mls/hr [id number] IV 03/31/24 23:45 UNV Midazolam HCl 50 ml @ 1 mls/hr Q24H IV 04/01/24 01:30 04/12/24 14:04 8 MLS/HR Ondansetron HCl 4 mg Q4HP PRN IV 04/01/24 05:00 Acetaminophen 650 mg Q6HP PRN PO 04/01/24 05:00 04/05/24 02:09 650 MG Nitroglycerin 0.4 mg Q5MINP PRN SL 04/01/24 05:00 Albuterol 2.5 mg Q6HR NEB 04/01/24 06:00 04/12/24 14:16 2.5 MG Albumin Human 100 ml @ 100 mls/hr KIRAN PRN IV 04/03/24 07:00 Norepinephrine Bitartrate 32 mg/ Sodium Chloride 250 ml @ 0.469 mls/ hr Q24H IV 04/04/24 06:30 04/08/24 17:08 0.938 MLS/HR Enteral Nutritional Formula 1,000 ml 20ML/HR GT 04/09/24 11:15 04/12/24 10:35 1,000 ML Sodium Chloride 10 ml QSHIFT@ IV 04/09/24 22:00 04/12/24 09:44 10 ML Iron Sucrose 110 ml @ 110 mls/hr DAILY@1200 IV 04/10/24 12:00 04/12/24 11:26 110 MLS/HR Amiodarone HCl 200 mg Q12HR PO 04/10/24 22:00 UNV Amiodarone HCl 200 mg Q12HR PO 04/10/24 22:00 04/12/24 09:48 200 MG Phenylephrine HCl 80 mg/Sodium Chloride 250 ml @ 7.5 mls/hr Q24H IV 04/10/24 19:30 04/12/24 15:13 3.75 MLS/HR Fentanyl Citrate 250 ml @ 2.5 mls/hr Q24H IV 04/11/24 15:15 Linezolid 300 ml @ 150 mls/hr Q12HR IV 04/12/24 10:00 04/12/24 09:47 150 MLS/HR Purified Water 200 ml Q3HR GT 04/12/24 09:30 04/12/24 14:03 200 ML Furosemide 20 mg DAILY IV 04/12/24 09:30 04/12/24 09:47 20 MG Diphenhydramine HCl 25 mg Q6HR IV 04/12/24 12:00 04/13/24 07:00 04/12/24 11:26 25 MG Nystatin 1 applic BID TOP 04/12/24 22:00 Levofloxacin 50 ml @ 50 mls/hr DAILY IV 04/13/24 10:00 objective obese white female intubated sedated rrr rales 1+ edema whipple cloudy urine laboratory and microbiology Laboratory Tests 04/12/24 04:19 Test 04/12/24 04:19 Range/Units Serum Glucose 107 H 74-106 mg/dL Assessment/Plan Acute kidney injury due to ATN/hemodynamic from shock, required intermittent hemodialysis now recovering Acute respiratory failure, intubated on ventilator Right thoracoscopy, evacuation of empyema, insertion of chest tube on 04/08 NSTEMI septic shock empyema b/l renal stones w/ hydronephrosis morbid obesity afib RVR Renal function improving without dialysis replace potassium increase free water Urine output has been better Continue Lasix IV daily Urology consult recommended once stable b/l renal stones with grade 1 hydronephrosis on left dc jair cath -removed 04/09 free water Dietary Evaluation Review Comments: 1) If GI is accessible consider Nepro 1.8 @ 30 ml/hr goal rate as tolerated with current rate of propofol on board. 2) If pt remains NPO >7 days consider TPN to meet at least 75% of estimated needs 3) If pt continues to receive HD, advance pt diet when medically feasible to a Renal Standard diet modified per INDUSTRIAL TWISTING MACHINE OPERATOR recommendations 4) If HD is discontinued and GFR is within normal range, advance pt diet to a Regular diet, modified per INDUSTRIAL TWISTING MACHINE OPERATOR recommendations 5)If HD is discontinued and GFR lies within STG 1-4, advance pt diet to a Renal Specific K2,lowphos,HECTOR,2gmNa,80gPro diet 6) If HD is discontinued and if GFR returns to normal levels then ALEXANDRA 1 pkt BID with meals may be considered to aid with wound healing 7) Continue current plan of care Expected Outcomes/Goals: 1) Pt to receive nutrition support within 7 days of NPO status 2) Pt labs to improve 3) Pt diet to advance 4) F/U in 2-3 days Plan discussed with: Other Critical Care Time(min): 35 KLEVER VILLALBA MD Apr 12, 2024 16:46
[2024-04-12] MEDS: SOD CHL 0.45% 1,000 ML IV SCH (17:04)
--- NOTE | 2024-04-12 19:55 | DVHPN2 ---
Progress Note - Dictate Date Seen: Apr 12, 2024 Has the PT tested + for MRSA If YES, has PT been informed?: No Medical Necessity Reason Pt with a Central, PICC or Fol: Yes The following are medically ne: Central Line, Martines Catheter Subjective Patient seen and examined at bedside. Sedated, intubated on mechanical ventilator. Overnight events reviewed. vital signs Vital Sign Date Time Temp Pulse Resp B/P (MAP) Pulse Ox O2 Delivery O2 Flow Rate FiO2 04/12/24 18:48 74 20 94/51 (65) 97 40 04/12/24 18:00 Mechanical Ventilator+ 04/12/24 16:00 98.9 98.9 Total Intake and Output 04/11/24 04/11/24 04/12/24 15:00 23:00 07:00 Intake Total 570.250 ml 1119.00 ml 542.875 ml Output Total 875 ml 800 ml Balance 570.250 ml 244.00 ml -257.125 ml medications Current Medications Medications Dose Ordered Sig/Destini Route Start Time Stop Time Status Last Admin Dose Admin Heparin Sodium/ Dextrose 250 ml @ 18 mls/hr [id number] IV 03/31/24 23:45 UNV Midazolam HCl 50 ml @ 1 mls/hr Q24H IV 04/01/24 01:30 04/12/24 14:04 8 MLS/HR Ondansetron HCl 4 mg Q4HP PRN IV 04/01/24 05:00 Acetaminophen 650 mg Q6HP PRN PO 04/01/24 05:00 04/05/24 02:09 650 MG Nitroglycerin 0.4 mg Q5MINP PRN SL 04/01/24 05:00 Albuterol 2.5 mg Q6HR NEB 04/01/24 06:00 04/12/24 18:48 2.5 MG Albumin Human 100 ml @ 100 mls/hr KIRAN PRN IV 04/03/24 07:00 Norepinephrine Bitartrate 32 mg/ Sodium Chloride 250 ml @ 0.469 mls/ hr Q24H IV 04/04/24 06:30 04/08/24 17:08 0.938 MLS/HR Enteral Nutritional Formula 1,000 ml 20ML/HR GT 04/09/24 11:15 04/12/24 10:35 1,000 ML Sodium Chloride 10 ml QSHIFT@22 IV 04/09/24 22:00 04/12/24 09:44 10 ML Iron Sucrose 110 ml @ 110 mls/hr DAILY@1200 IV 04/10/24 12:00 04/12/24 11:26 110 MLS/HR Amiodarone HCl 200 mg Q12HR PO 04/10/24 22:00 UNV Amiodarone HCl 200 mg Q12HR PO 04/10/24 22:00 04/12/24 09:48 200 MG Phenylephrine HCl 80 mg/Sodium Chloride 250 ml @ 7.5 mls/hr Q24H IV 04/10/24 19:30 04/12/24 15:13 3.75 MLS/HR Fentanyl Citrate 250 ml @ 2.5 mls/hr Q24H IV 04/11/24 15:15 Linezolid 300 ml @ 150 mls/hr Q12HR IV 04/12/24 10:00 04/12/24 09:47 150 MLS/HR Purified Water 200 ml Q3HR GT 04/12/24 09:30 04/12/24 17:38 200 ML Furosemide 20 mg DAILY IV 04/12/24 09:30 04/12/24 09:47 20 MG Diphenhydramine HCl 25 mg Q6HR IV 04/12/24 12:00 04/13/24 07:00 04/12/24 17:38 25 MG Nystatin 1 applic BID TOP 04/12/24 22:00 Levofloxacin 50 ml @ 50 mls/hr DAILY IV 04/13/24 10:00 Sodium Chloride 1,000 ml @ 50 mls/hr Q20H IV 04/12/24 16:45 04/12/24 17:04 50 MLS/HR objective Gen.: Patient lying in bed in medical ICU. Sedated, intubated on mechanical ventilator. Head: Normocephalic, atraumatic. Eyes: PERRLA. Ears: Normal external anatomy. Throat: Endotracheal tube and orogastric tube in place. Neck: Supple, trachea midline. Chest: Transmitted breath sounds bilaterally. Decreased air entry bilaterally. No wheezing. Bibasilar crackles. Cardio vascular: Positive S1, positive S2. Regular rate and rhythm. Abdomen: Positive bowel sounds in all 4 quadrants. Soft, nontender, nondistended. : Martines in place. Normal external genitalia. Rectal: Deferred Skin: Warm, dry. Intact. Extremities: 2+ radial pulses bilaterally. No lower extremity edema. Neuro: Sedated. laboratory and microbiology Laboratory Tests 04/12/24 04:19 Test 04/12/24 04:19 Range/Units Serum Glucose 107 H 74-106 mg/dL Assessment/Plan Impression: Acute hypoxic respiratory failure On mechanical ventilator Right-sided pleural effusion Pneumonia of the right middle and lower lobes, likely Gram-negative Interstitial pulmonary edema Sepsis due to empyema Acute on chronic systolic/diastolic congestive heart failure Atrial fibrillation with RVR Bilateral hydronephrosis Acute kidney injury likely postobstructive nephropathy Plan: s/p intubation on mechanical ventilator CXR image and report reviewed. Endotracheal tube in place. Bilateral airspace opacities. Bilateral pleural effusions. No pneumothorax. ABG reviewed. Alkalemia Endotracheal tube was advanced. On assist control with respiratory rate of 20, tidal volume 500, peep of five, FiO2 of 40%. Titrate FIO2 to keep O2 saturation above 92%. VAP bundle Daily ABG and CXR while intubated. Sedate for ventilatory synchrony with Versed at 8 milligrams/hour and fentanyl at 125 mcg per minute. Right chest tube in place. Monitor chest tube output On pressors for hemodynamic support. On Logan-Synephrine at 20 micrograms/minute. Titrate to keep MAP above 65 mmHg/SBP above 90 mmHg. Continue antibiotics. WBC count within normal limits. Represent new onset rash, IV steroids and IV Benadryl were initiated. Monitor renal function due to Acute kidney injury. Creatinine trending down. Monitor electrolytes. Supplement as necessary. Potassium supplemented Magnesium at goal Nutritional support. Accucheks, ISS. GI/DVT prophylaxis. Condition: Critical Prognosis: Poor given multiple comorbidities. Rest of plan per hospitalist and other consultants. A total of 35 minutes of critical care time was spent reviewing the patient record, examining the patient, making a diagnostic and therapeutic plan, discussing this plan with the medical personnel, following up on diagnostic studies and following the patient for clinical stability excluding any and all procedures. At least 50% of this time was spent in direct, [id number] contact. Thank you for allowing me to participate in this patient's care. Further recommendations will depend on patient's clinical course. Please do not hesitate to contact me if you have any questions or concerns. This medical document was created using an electronic medical record system with [employer] dictation system. Although this document has been carefully reviewed, there may still be some phonetic and typographical errors. These areas are purely typographical due to imperfections of the software programs, and do not reflect any compromise in the patient's medical care. Dietary Evaluation Review Comments: 1) If GI is accessible consider Nepro 1.8 @ 30 ml/hr goal rate as tolerated with current rate of propofol on board. 2) If pt remains NPO >7 days consider TPN to meet at least 75% of estimated needs 3) If pt continues to receive HD, advance pt diet when medically feasible to a Renal Standard diet modified per INSURANCE AGENT recommendations 4) If HD is discontinued and GFR is within normal range, advance pt diet to a Regular diet, modified per INSURANCE AGENT recommendations 5)If HD is discontinued and GFR lies within STG 1-4, advance pt diet to a Renal Specific K2,lowphos,HECTOR,2gmNa,80gPro diet 6) If HD is discontinued and if GFR returns to normal levels then ALEXANDRA 1 pkt BID with meals may be considered to aid with wound healing 7) Continue current plan of care Expected Outcomes/Goals: 1) Pt to receive nutrition support within 7 days of NPO status 2) Pt labs to improve 3) Pt diet to advance 4) F/U in 2-3 days Plan discussed with: Other (OLIVA Velez, RT) Critical Care Time(min): 35 MELBA CRUZ MD Apr 12, 2024 19:55
[2024-04-12] MEDS: NYSTATIN TOPICAL POWDER 15GM TOP SCH (22:12)
[2024-04-13] VITALS (110 sets, daily range): BP systolic 84–144; BP diastolic 39–79; PULSE 72–98; RESP 14–30; TEMP 97.8–98.4; O2SAT 93–100
[2024-04-13 06:40] LABS: Base Excess 2.7 mmol/L (-2.0-3.0)
--- NOTE | 2024-04-13 06:47 | DVH ---
CHEST RADIOGRAPH Indication:fu Technique: Single frontal view of the chest was obtained COMPARISON: XY CHEST XRAY 1 VIEW on DOS: 04/12/24, XY CHEST XRAY 1 VIEW on DOS: 04/11/24, XY CHEST XR AY 1 VIEW on DOS: 04/10/24 FINDINGS: Lines and Tubes: Endotracheal tube, enteric catheter and right PICC in satisfactory position. Right chest tube in satisfactory position. Lungs: Multifocal airspace disease. Pleura: No effusion. No pneumothorax. Cardiomediastinal contours: Unremarkable Bones: Unremarkable IMPRESSION: Lines and tubes in satisfactory position. No significant interval change.
--- NOTE | 2024-04-13 07:55 | DVHPN2 ---
Progress Note - Dictate Date Seen: Apr 13, 2024 Has the PT tested + for MRSA If YES, has PT been informed?: No Medical Necessity Reason Pt with a Central, PICC or Fol: Yes The following are medically ne: Central Line, Martines Catheter vital signs Vital Sign Date Time Temp Pulse Resp B/P (MAP) Pulse Ox O2 Delivery O2 Flow Rate FiO2 04/13/24 06:45 85 20 105/60 (75) 96 04/13/24 06:41 40 04/13/24 06:00 Mechanical Ventilator+ 04/13/24 04:00 98.4 98.4 Total Intake and Output 04/12/24 04/12/24 04/13/24 15:00 23:00 07:00 Intake Total 782.625 ml 1329.750 ml 1216.125 ml Output Total 965 ml 565 ml Balance 782.625 ml 364.750 ml 651.125 ml medications Current Medications Medications Dose Ordered Sig/Destini Route Start Time Stop Time Status Last Admin Dose Admin Heparin Sodium/ Dextrose 250 ml @ 18 mls/hr [id number] IV 03/31/24 23:45 UNV Midazolam HCl 50 ml @ 1 mls/hr Q24H IV 04/01/24 01:30 04/12/24 20:07 6 MLS/HR Ondansetron HCl 4 mg Q4HP PRN IV 04/01/24 05:00 Acetaminophen 650 mg Q6HP PRN PO 04/01/24 05:00 04/05/24 02:09 650 MG Nitroglycerin 0.4 mg Q5MINP PRN SL 04/01/24 05:00 Albuterol 2.5 mg Q6HR NEB 04/01/24 06:00 04/13/24 06:41 2.5 MG Albumin Human 100 ml @ 100 mls/hr KIRAN PRN IV 04/03/24 07:00 Norepinephrine Bitartrate 32 mg/ Sodium Chloride 250 ml @ 0.469 mls/ hr Q24H IV 04/04/24 06:30 04/08/24 17:08 0.938 MLS/HR Enteral Nutritional Formula 1,000 ml 20ML/HR GT 04/09/24 11:15 04/12/24 10:35 1,000 ML Sodium Chloride 10 ml QSHIFT@ IV 04/09/24 22:00 04/12/24 22:06 10 ML Iron Sucrose 110 ml @ 110 mls/hr DAILY@1200 IV 04/10/24 12:00 04/12/24 11:26 110 MLS/HR Amiodarone HCl 200 mg Q12HR PO 04/10/24 22:00 UNV Amiodarone HCl 200 mg Q12HR PO 04/10/24 22:00 04/12/24 22:07 200 MG Phenylephrine HCl 80 mg/Sodium Chloride 250 ml @ 7.5 mls/hr Q24H IV 04/10/24 19:30 04/12/24 15:13 3.75 MLS/HR Fentanyl Citrate 250 ml @ 2.5 mls/hr Q24H IV 04/11/24 15:15 04/12/24 20:08 7.5 MLS/HR Linezolid 300 ml @ 150 mls/hr Q12HR IV 04/12/24 10:00 04/12/24 22:07 150 MLS/HR Purified Water 200 ml Q3HR GT 04/12/24 09:30 04/13/24 05:56 200 ML Furosemide 20 mg DAILY IV 04/12/24 09:30 04/12/24 09:47 20 MG Nystatin 1 applic BID TOP 04/12/24 22:00 04/12/24 22:12 1 APPLIC Levofloxacin 50 ml @ 50 mls/hr DAILY IV 04/13/24 10:00 Sodium Chloride 1,000 ml @ 50 mls/hr Q20H IV 04/12/24 16:45 04/12/24 17:04 50 MLS/HR laboratory and microbiology Laboratory Tests 04/12/24 04:19 Test 04/12/24 04:19 Range/Units Serum Glucose 107 H 74-106 mg/dL Assessment/Plan s/p thoracoscopy and chest tube placement Patient is a 68-year-old female who was transferred from [facility]. She originally presented to [facility] for shortness of breath ongoing for few days. She is intubated and is being managed in ICU. Information was obtained by reviewing the chart and communicating with staff. Reportedly, she presented with respiratory failure to [facility] (oxygen saturation was 88%) and over there was found to have white blood cell count of 26.6, hemoglobin of 11.1, creatinine of 5.6, potassium of 5.6 and troponin of 1.01. She was given 365 mg of aspirin in [facility]. She did have an episode of atrial fibrillation with RVR with questionable ST changes and was transferred to our facility for further care. She was also found to have right pleural effusion in [facility] and was diagnosed with non-STEMI. Intubated, on vent support. On pressure support. Obese. Mucosa is pale. Scattered rhonchi in the lungs is heard. Cardiac: Regular, no thrill/gallop. Abdomen is soft with increased bowel sounds. There is no gross mass. Extremities reveal 1+ edema bilaterally. Available past medical history includes obesity and questionable history of psoriasis. WBC: 25.3 - 23.7 - 20.2 - 20.5 - 17.6 - 18.4 - 19.2 - 19.4 - 22.2 - 16.4 - 16.1 - 19.5 - 14.7 - 12.3 - 9.8 - 10.0 Hemoglobin: 10.8 - 9.1 - 8.5 - 8.4 - 8.8 - 8.6 - 8.9 - 8.1 - 8.4 - 8.1 - 8.1 - 8.2 - 8.0 - 7.4 - 7.4 - 7.7 - 7.1 D-dimer: 3.62 Creatinine: 5.67 - 5.78 - 5.41 - 4.92 - 4.55 - 4.68 - 4.71 - 4.64 - 4.48 - 3.83 - 3.66 - 3.65 - 3.25 - 2.82 - 2.41 - 2.34 - 2.01 - 1.90 - 1.60 Potassium: 6.0 - 6.3 - 6.1 - 6.0 - 5.3 - 5.0 - 4.9 - 4.8 - 5.1 - 5.4 - 4.9 - 5.3 - 4.8 - 4.5 - 4.7 - 4.3 - 4.2 - 3.9 - 4.6 - 3.8 - 3.5 - 3.3 Lactic acid: 3.3 - 3.4 - 2.3 - 2.5 - 2.5 - 2.7 - 2.4 - 2.5 - 3.1 - 2.3 - 1.7 - 1.7 TSH: 1.71 BNP: 274.69 - 1944.81 Troponin (high sensitive): 1469 - 1515 - 1684 Blood culture: positive Pleural fluid culture: E-coli Digoxin level: 2.09 Stool OB: positive Chest x-ray revealed: IMPRESSION: 1. Moderate right pleural effusion. 2. Cardiomegaly with mild pulmonary vascular congestion bilaterally. Repeat chest x-ray revealed: IMPRESSION: 1. Endotracheal tube and gastric tubes in place as described. 2. Right IJ central venous catheter projects over the lower SVC. 3. Mild cardiomegaly and prominence of the pulmonary vasculature. 4. Moderate to large right pleural effusion. Repeat chest x-ray revealed: IMPRESSION: Similar lung aeration with large right pleural effusion. No pneumothorax seen. Stable lines and tubes. Repeat chest x-ray revealed: IMPRESSION: Similar lung aeration with large right pleural effusion. No pneumothorax seen. Stable lines and tubes. Repeat chest xry revealed: Lines and tubes: ET in the mid thoracic trachea. NG crosses midline. Right CVC is stable. Left HD catheter projects over the mediastinum. Cardiomediastinal silhouette: Enlarged Pulmonary vasculature: prominent Lung expansion: low Lung airspace: patchy bilateral airspace opacity. Lung interstitium: normal Pleura: Similar large right effusion. Pneumothorax: no Bones: Unremarkable Other: no IMPRESSION: Lines and tubes, as above. Similar lung aeration bilaterally with a right pleural effusion and patchy airspace opacities. Repeat chest xry revealed: IMPRESSION: 1. Stable position of the support lines and tubes. 2. Interstitial and alveolar opacities. Repeat chest xry revealed: IMPRESSION: Unchanged multifocal airspace disease. Small to moderate right pleural effusion ; possibly loculated. Repeat chest xry revealed: IMPRESSION: Lines and tubes in satisfactory position. No significant interval change. Repeat chest xry revealed: IMPRESSION: 1. Support lines and tubes in appropriate position. 2. Pulmonary vascular congestion. 3. Bilateral pleural effusions, right greater than left. Repeat chest xry revealed: IMPRESSION: 1. Support lines and tubes in appropriate position. 2. Pulmonary vascular congestion. 3. Bilateral pleural effusions, right greater than left. Repeat chest xry revealed: IMPRESSION: Interval placement of right chest tube which projects deep into the right hilar region. Repeat chest xry revealed: IMPRESSION: No interval change Repeat chest xry revealed: Findings/IMPRESSION: Right IJ CVC terminating in the SVC. Endotracheal tube projected 5 cm superior to the mili. Enteric tube projected below the GE junction. Right-sided PICC projects terminating near the cavoatrial junction. Small bilateral pleural effusions and/or atelectasis with superimposed infection not excluded. Repeat chest xry revealed: MPRESSION: 1. Bilateral pleural effusions and airspace disease right greater than left. Repeat chest xry revealed: IMPRESSION: 1. Endotracheal tube terminates 6.0 cm above the mili, previously 3.1 cm above the mili. Otherwise, No significant interval change. Repeat chest xry revealed: IMPRESSION: 1. Endotracheal tube terminates 6.0 cm above the mili, previously 3.1 cm above the mili. Otherwise, No significant interval change. Repeat chest xry revealed: IMPRESSION: Lines and tubes in satisfactory position. No significant interval change. Renal ultrasound revealed: IMPRESSION: 1. Right kidney measures 13.4 cm. Decreased cortical thickness on the right. 2. Left kidney measures 10.2 cm. 3. No hydronephrosis on the right grade 1 hydronephrosis on the left. 4. Bilateral renal calculi. CT scan of the chest/abdomen and pelvis revealed: IMPRESSION: 1. Moderate partially loculated right pleural effusion and consolidations in the right middle and lower lobes which could be pneumonia and/or atelectasis. 2. Mild cardiomegaly, mild interstitial pulmonary edema, and body wall edema. 3. There is a 1.9 cm calculus in the right UPJ with mild right hydronephrosis 4. There is a 2.6 cm somewhat staghorn appearing calculus in the left renal pelvis and UPJ causing mild predominantly mid to lower pole left hydronephrosis. Mild soft tissue stranding about the left renal pelvis which could be due to obstruction or superimposed infection. Correlate with urinalysis. 5. Partial duplication of the left renal collecting system without hydronephrosis in the upper pole. 6. Moderate right perinephric, right retroperitoneal, and bilateral extraperitoneal pelvis low-density fluid and very mild left retroperitoneal low-density fluid. This could be fluid related to bilateral renal obstructions and forniceal ruptures versus evolved retroperitoneal hematoma. This is suboptimally evaluated without intravenous contrast. 7. Fluid-filled small and large bowel loops which may be physiologic or related to enterocolitis and could be manifesting as loose stools and/or diarrhea. 8. Prominent endometrium measuring at least 2.8 cm, suboptimally evaluated by CT. Recommend characterization with nonemergent pelvic ultrasound if clinically indicated. 9. Mild hepatosplenomegaly. 10. Moderate three-vessel calcified coronary artery disease and mild aortic valve calcification. 11. Right IJ central venous catheter in place terminating in the low SVC. 12. Small soft tissue stranding in the right supraclavicular neck which could be blood products. 13. Endotracheal tube terminates above the mili. CT of the head revealed: IMPRESSION: 1. No acute intracranial abnormality. 2. Generalized cerebral volume loss and mild chronic microvascular ischemic change. 3. Partially imaged endotracheal tube. Chest ultrasound revealed: Findings/Impression: There is a trace bilateral pleural effusion. Thoracentesis: FINDINGS: Moderate size, complex and septated right pleural effusion. Aspirated fluid is thick and green in consistency. IMPRESSION: Right thoracentesis with 250 mL removed for laboratory analysis. EKG in [facility] revealed sinus tachycardia, poor R-wave progression old inferior wall LA. later EKG revealed atrial fibrillation with RVR. Telemetry reveals sinus rhythm, occasions of A-fib with RVR, SVT Echocardiogram revealed: Technically limited study secondary to poor acoustic windows. Left ventricle: Left ventricle was normal-sized. Mild concentric left ventricular hypertrophy was seen. LVEF was 55-60%. No gross wall motion abnormality was observed, but its presence can not be ruled out on the basis of this study. Right ventricle is mildly dilated with normal systolic function. Left atrium was mildly dilated. Right atrium was normal-sized. Aortic valve was trileaflet. There was no aortic insufficiency. There was aortic sclerosis with no stenosis. There was trivial mitral/tricuspid regurgitation. Pulmonary valve was not well visualized. Right ventricular systolic pressure was assessed around 48 mm Hg. There was no pericardial effusion. Patient is a 68-year-old morbidly obese patient who presented with respiratory failure to the hospital. Presentation is in favor of sepsis/septic shock. Multiorgan failure is observed. She is intubated and on vent support. She is on multiple pressor support. Life findings are in favor of acute renal failure. She also is known to have nephrolithiasis with history of staghorn calculi. Cardiac-ceballos, the patient did have episode of atrial fibrillation with RVR. She is found to have increased troponin. Presentation questions non-STEMI and possibly type 2 ischemia. Recognizing the presentation, ischemic workup should be postponed after clinical stability. Is being followed by Nephrology. Had episodes of tachyarrhythmia. Loaded with Digoxin. Positive cultures. Repeated a-fib with RVR. Septic shock Multiorgan failure Acute respiratory failure on vent support Acute renal failure Nephrolithiasis Staghorn calculi Hydronephrosis Abnormal troponin, non-STEMI Atrial fibrillation with RVR Paroxysmal AFib Acute heart failure, diastolic Hepatosplenomegaly Pleural effusion Status post thoracentesis Morbid obesity s/p Cardioversion for A-fib with RVR s/p thoracoscopy and chest tube placement Cardiac suggestion for management: Manage in ICU Follow-up electrolytes and kidney function tests and correct abnormalities Pressure support to keep mean arterial pressure above 65 Amiodarone oral/O mg BID Heparin drip Daily aspirin (81 mg daily) Loaded with Digoxin Off Lidocaine drip s/p thoracoscopy and chest tube placement IV metoprolol PRN for a-fib with RVR episodes. Sepsis workup and management as per primary team Cardiac ceballos, patient is elevated risk patient for urgent Thoracotomy procedure. You can consider proceeding with procedure under appropriate intra and post operative hemodynamic monitoring. If you choose to proceed with procedure, try to avoid hypotension. Evaluation and management of respiratory failure as per primary team/Pulmonary Evaluation and management of nephrolithiasis/hydronephrosis as per primary/Urology Evaluation and management of acute renal failure as per Nephrology Ischemic workup, after clinical stability (only if regained higher brain function) Further evaluation and management as per above and clinical course. A total of 75 minutes was spent reviewing the patient record, examining the patient, making a diagnostic and therapeutic plan, discussing this plan with medical personnel, following up on diagnostic studies and following the patient for clinical stability excluding any and all procedures. At least 50% of this time was spent in direct, [id number] contact. Thank you for allowing me to participate in this patient's care. Further recommendations will depend on patient's clinical course. Please do not hesitate to contact me if you have any questions or concerns. This medical document was created using electronic medical record system with [employer] dictation system. Although this document has been carefully reviewed, there may still be some phonetic and typographical errors. These areas are purely typographical due to the imperfection of the software programs, and do not reflect any compromise in the patient's medical care. Dietary Evaluation Review Comments: 1) If GI is accessible consider Nepro 1.8 @ 30 ml/hr goal rate as tolerated with current rate of propofol on board. 2) If pt remains NPO >7 days consider TPN to meet at least 75% of estimated needs 3) If pt continues to receive HD, advance pt diet when medically feasible to a Renal Standard diet modified per DISABILITY PROGRAM NAVIGATOR recommendations 4) If HD is discontinued and GFR is within normal range, advance pt diet to a Regular diet, modified per DISABILITY PROGRAM NAVIGATOR recommendations 5)If HD is discontinued and GFR lies within STG 1-4, advance pt diet to a Renal Specific K2,lowphos,HECTOR,2gmNa,80gPro diet 6) If HD is discontinued and if GFR returns to normal levels then ALEXANDRA 1 pkt BID with meals may be considered to aid with wound healing 7) Continue current plan of care Expected Outcomes/Goals: 1) Pt to receive nutrition support within 7 days of NPO status 2) Pt labs to improve 3) Pt diet to advance 4) F/U in 2-3 days Plan discussed with: Other (nurse) HERMINIO JOHNSON MD Apr 13, 2024 07:55
[2024-04-13] MEDS: levoFLOXacin 250MG 50 ML IV SCH (09:15)
[2024-04-13 09:58] LABS: Basophils # (auto) 0 10 ^3/uL (0-0.2); Eosinophils # (auto) 0.4 10 ^3/uL (0-0.8); Lymphocytes # (auto) 1.1 10 ^3/uL (0.4-5.4)
[2024-04-13 10:00] LABS: Basophils % (auto) 0.4 % (0.0-2.0); Eosinophils % (auto) 4.5 % (0.0-7.0); Hematocrit 26.6 % (36.0-46.0); Lymphocytes % (auto) 13.4 % (10.0-50.0); Mean Corpuscular Hemoglobin 25.5 pg (28.0-32.0); Mean Corpuscular Hgb Conc. 30.2 g/dL (32.0-36.0); Mean Corpuscular Volume 84.5 fL (80.0-100.0); Monocytes # (auto) 0.5 10 ^3/uL (0-1.3); Monocytes % (auto) 5.8 % (0.0-12.0); Neutrophils # (auto) 6.3 10 ^3/uL (1.6-8.6); Neutrophils % (auto) 75.9 % (37.0-80.0); Nucleated Red Blood Cells % 0.2 %; Platelet Count (auto) 198 10^3/uL (140-450); Red Blood Cells 3.15 10^6/uL (4.0-5.20); White Blood Cell 8.3 10^3/uL (4.4-10.8)
[2024-04-13 10:17] LABS: INR 1.06 (0.9-1.15); Prothrombin Time 11.2 sec (9.3-11.8)
[2024-04-13 10:36] LABS: Alanine Aminotransferase 26 U/L (7-40); Albumin 3.1 g/dL (3.2-4.8); Alkaline Phosphatase 98 U/L (46-116); Anion Gap 8 (5-15); Aspartate Aminotransferase 43 U/L (13-40); Blood Urea Nitrogen 64 mg/dL (9-23); Calcium 8.5 mg/dL (8.7-10.4); Carbon Dioxide 29 mmol/L (20-31); Chloride 113 mmol/L (98-107); Glucose 110 mg/dL (74-106); Potassium 3.6 mmol/L (3.5-5.1); Sodium 150 mmol/L (136-145)
[2024-04-13 10:37] LABS: Bilirubin, Total 0.5 mg/dL (0.2-1.0); Total Protein 6.4 g/dL (5.7-8.2)
--- NOTE | 2024-04-13 12:54 | DVHPN2 ---
Progress Note - Dictate Date Seen: Apr 13, 2024 Has the PT tested + for MRSA If YES, has PT been informed?: No Medical Necessity Reason Pt with a Central, PICC or Fol: Yes The following are medically ne: Central Line, Whipple Catheter Subjective remains intubated vital signs Vital Sign Date Time Temp Pulse Resp B/P (MAP) Pulse Ox O2 Delivery O2 Flow Rate FiO2 04/13/24 12:00 22 96 Mechanical Ventilator+ 40 40 04/13/24 11:20 89 103/60 (74) 04/13/24 08:00 98.4 98.4 Total Intake and Output 04/12/24 04/12/24 04/13/24 15:00 23:00 07:00 Intake Total 782.625 ml 1329.750 ml 1216.125 ml Output Total 965 ml 565 ml Balance 782.625 ml 364.750 ml 651.125 ml medications Current Medications Medications Dose Ordered Sig/Destini Route Start Time Stop Time Status Last Admin Dose Admin Heparin Sodium/ Dextrose 250 ml @ 18 mls/hr [id number] IV 03/31/24 23:45 UNV Midazolam HCl 50 ml @ 1 mls/hr Q24H IV 04/01/24 01:30 04/12/24 20:07 6 MLS/HR Ondansetron HCl 4 mg Q4HP PRN IV 04/01/24 05:00 Acetaminophen 650 mg Q6HP PRN PO 04/01/24 05:00 04/05/24 02:09 650 MG Nitroglycerin 0.4 mg Q5MINP PRN SL 04/01/24 05:00 Albuterol 2.5 mg Q6HR NEB 04/01/24 06:00 04/13/24 11:20 2.5 MG Albumin Human 100 ml @ 100 mls/hr KIRAN PRN IV 04/03/24 07:00 Norepinephrine Bitartrate 32 mg/ Sodium Chloride 250 ml @ 0.469 mls/ hr Q24H IV 04/04/24 06:30 04/08/24 17:08 0.938 MLS/HR Enteral Nutritional Formula 1,000 ml 20ML/HR GT 04/09/24 11:15 04/12/24 10:35 1,000 ML Sodium Chloride 10 ml QSHIFT@ IV 04/09/24 22:00 04/13/24 09:16 10 ML Iron Sucrose 110 ml @ 110 mls/hr DAILY@1200 IV 04/10/24 12:00 04/13/24 12:28 110 MLS/HR Amiodarone HCl 200 mg Q12HR PO 04/10/24 22:00 UNV Amiodarone HCl 200 mg Q12HR PO 04/10/24 22:00 04/13/24 09:16 200 MG Phenylephrine HCl 80 mg/Sodium Chloride 250 ml @ 7.5 mls/hr Q24H IV 04/10/24 19:30 04/12/24 15:13 3.75 MLS/HR Fentanyl Citrate 250 ml @ 2.5 mls/hr Q24H IV 04/11/24 15:15 04/12/24 20:08 7.5 MLS/HR Linezolid 300 ml @ 150 mls/hr Q12HR IV 04/12/24 10:00 04/13/24 09:16 150 MLS/HR Purified Water 200 ml Q3HR GT 04/12/24 09:30 04/13/24 12:28 200 ML Furosemide 20 mg DAILY IV 04/12/24 09:30 04/13/24 09:15 20 MG Nystatin 1 applic BID TOP 04/12/24 22:00 04/13/24 12:28 1 APPLIC Levofloxacin 50 ml @ 50 mls/hr DAILY IV 04/13/24 10:00 04/13/24 09:15 50 MLS/HR Sodium Chloride 1,000 ml @ 50 mls/hr Q20H IV 04/12/24 16:45 04/13/24 12:51 50 MLS/HR objective obese white female intubated sedated rrr rales 1+ edema whipple cloudy urine laboratory and microbiology Laboratory Tests 04/13/24 09:30 Test 04/13/24 09:30 Range/Units Serum Glucose 110 H 74-106 mg/dL Assessment/Plan Acute kidney injury due to ATN/hemodynamic from shock, required intermittent hemodialysis now recovering Acute respiratory failure, intubated on ventilator Right thoracoscopy, evacuation of empyema, insertion of chest tube on 04/08 NSTEMI septic shock empyema b/l renal stones w/ hydronephrosis morbid obesity afib RVR Renal function improving without dialysis replace potassium increase free water Urine output has been better Continue Lasix IV daily Urology consult recommended once stable b/l renal stones with grade 1 hydronephrosis on left dc jair cath -removed 04/09 free water Dietary Evaluation Review Comments: 1) If GI is accessible consider Nepro 1.8 @ 30 ml/hr goal rate as tolerated with current rate of propofol on board. 2) If pt remains NPO >7 days consider TPN to meet at least 75% of estimated needs 3) If pt continues to receive HD, advance pt diet when medically feasible to a Renal Standard diet modified per CONCRETE CRUSHER LOADER OPERATOR recommendations 4) If HD is discontinued and GFR is within normal range, advance pt diet to a Regular diet, modified per CONCRETE CRUSHER LOADER OPERATOR recommendations 5)If HD is discontinued and GFR lies within STG 1-4, advance pt diet to a Renal Specific K2,lowphos,HECTOR,2gmNa,80gPro diet 6) If HD is discontinued and if GFR returns to normal levels then ALEXANDRA 1 pkt BID with meals may be considered to aid with wound healing 7) Continue current plan of care Expected Outcomes/Goals: 1) Pt to receive nutrition support within 7 days of NPO status 2) Pt labs to improve 3) Pt diet to advance 4) F/U in 2-3 days Plan discussed with: KLEVER Kauffman MD Apr 13, 2024 12:54
--- NOTE | 2024-04-13 13:45 | DVHPN2 ---
Progress Note - Dictate Date Seen: Apr 13, 2024 Has the PT tested + for MRSA If YES, has PT been informed?: No Medical Necessity Reason Pt with a Central, PICC or Fol: Yes The following are medically ne: Central Line, Martines Catheter Subjective Patient seen and examined at bedside. Sedated, intubated on mechanical ventilator. Overnight events reviewed. vital signs Vital Sign Date Time Temp Pulse Resp B/P (MAP) Pulse Ox O2 Delivery O2 Flow Rate FiO2 04/13/24: 85 24 104/62 (76) 96 40 04/13/24 12:00 Mechanical Ventilator+ 04/13/24 12:00 97.9 97.9 Total Intake and Output 04/12/24 04/12/24 04/13/24 15:00 23:00 07:00 Intake Total 782.625 ml 1329.750 ml 1216.125 ml Output Total 965 ml 565 ml Balance 782.625 ml 364.750 ml 651.125 ml medications Current Medications Medications Dose Ordered Sig/Destini Route Start Time Stop Time Status Last Admin Dose Admin Heparin Sodium/ Dextrose 250 ml @ 18 mls/hr [id number] IV 03/31/24 23:45 UNV Midazolam HCl 50 ml @ 1 mls/hr Q24H IV 04/01/24 01:30 04/12/24 20:07 6 MLS/HR Ondansetron HCl 4 mg Q4HP PRN IV 04/01/24 05:00 Acetaminophen 650 mg Q6HP PRN PO 04/01/24 05:00 04/05/24 02:09 650 MG Nitroglycerin 0.4 mg Q5MINP PRN SL 04/01/24 05:00 Albuterol 2.5 mg Q6HR NEB 04/01/24 06:00 04/13/24 11:20 2.5 MG Albumin Human 100 ml @ 100 mls/hr KIRAN PRN IV 04/03/24 07:00 Norepinephrine Bitartrate 32 mg/ Sodium Chloride 250 ml @ 0.469 mls/ hr Q24H IV 04/04/24 06:30 04/08/24 17:08 0.938 MLS/HR Enteral Nutritional Formula 1,000 ml 20ML/HR GT 04/09/24 11:15 04/12/24 10:35 1,000 ML Sodium Chloride 10 ml QSHIFT@22 IV 04/09/24 22:00 04/13/24 09:16 10 ML Iron Sucrose 110 ml @ 110 mls/hr DAILY@1200 IV 04/10/24 12:00 04/13/24 12:28 110 MLS/HR Amiodarone HCl 200 mg Q12HR PO 04/10/24 22:00 UNV Amiodarone HCl 200 mg Q12HR PO 04/10/24 22:00 04/13/24 09:16 200 MG Phenylephrine HCl 80 mg/Sodium Chloride 250 ml @ 7.5 mls/hr Q24H IV 04/10/24 19:30 04/12/24 15:13 3.75 MLS/HR Fentanyl Citrate 250 ml @ 2.5 mls/hr Q24H IV 04/11/24 15:15 04/12/24 20:08 7.5 MLS/HR Linezolid 300 ml @ 150 mls/hr Q12HR IV 04/12/24 10:00 04/13/24 09:16 150 MLS/HR Purified Water 200 ml Q3HR GT 04/12/24 09:30 04/13/24 12:28 200 ML Furosemide 20 mg DAILY IV 04/12/24 09:30 04/13/24 09:15 20 MG Nystatin 1 applic BID TOP 04/12/24 22:00 04/13/24 12:28 1 APPLIC Levofloxacin 50 ml @ 50 mls/hr DAILY IV 04/13/24 10:00 04/13/24 09:15 50 MLS/HR Sodium Chloride 1,000 ml @ 50 mls/hr Q20H IV 04/12/24 16:45 04/13/24 12:51 50 MLS/HR objective Gen.: Patient lying in bed in medical ICU. Sedated, intubated on mechanical ventilator. Head: Normocephalic, atraumatic. Eyes: PERRLA. Ears: Normal external anatomy. Throat: Endotracheal tube and orogastric tube in place. Neck: Supple, trachea midline. Chest: Transmitted breath sounds bilaterally. Decreased air entry bilaterally. No wheezing. Bibasilar crackles. Cardio vascular: Positive S1, positive S2. Regular rate and rhythm. Abdomen: Positive bowel sounds in all 4 quadrants. Soft, nontender, nondistended. : Martines in place. Normal external genitalia. Rectal: Deferred Skin: Warm, dry. Intact. Extremities: 2+ radial pulses bilaterally. No lower extremity edema. Neuro: Sedated. laboratory and microbiology Laboratory Tests 04/13/24 09:30 Test 04/13/24 09:30 Range/Units Serum Glucose 110 H 74-106 mg/dL Assessment/Plan Impression: Acute hypoxic respiratory failure On mechanical ventilator Right-sided pleural effusion Pneumonia of the right middle and lower lobes, likely Gram-negative Interstitial pulmonary edema Sepsis due to empyema Acute on chronic systolic/diastolic congestive heart failure Atrial fibrillation with RVR Bilateral hydronephrosis Acute kidney injury likely postobstructive nephropathy Events: Patient remains on mechanical ventilation. Off Logan-Synephrine. Remains on sedation with fentanyl at 25 micrograms/minute. Plan to taper sedation. Rashes improving. Remains on steroid and Benadryl. ABG reviewed. Slight alkalemia due to respiratory and metabolic alkalosis. Remains on mechanical ventilation with a respiratory rate of 20, tidal volume 500, peep of five, FiO2 of 40%. Decrease Respiratory rate to 18 breaths per minute Hemoglobin stable at 8.0 grams/deciliter. Sodium trended down to 150. Potassium at 3.6. Slight increasing creatinine Chest x-ray imaging report reviewed. Devices in place. Multifocal opacities. No pleural effusion or pneumothorax. Rest of plan as noted below. Plan: s/p intubation on mechanical ventilator CXR image and report reviewed. Endotracheal tube in place. Bilateral airspace opacities. Bilateral pleural effusions. No pneumothorax. ABG reviewed. Alkalemia Endotracheal tube was advanced. On assist control with respiratory rate of 20, tidal volume 500, peep of five, FiO2 of 40%. Titrate FIO2 to keep O2 saturation above 92%. VAP bundle Daily ABG and CXR while intubated. Sedate for ventilatory synchrony with Versed at 8 milligrams/hour and fentanyl at 125 mcg per minute. Right chest tube in place. Monitor chest tube output On pressors for hemodynamic support. On Logan-Synephrine at 20 micrograms/minute. Titrate to keep MAP above 65 mmHg/SBP above 90 mmHg. Continue antibiotics. WBC count within normal limits. Represent new onset rash, IV steroids and IV Benadryl were initiated. Monitor renal function due to Acute kidney injury. Creatinine trending down. Monitor electrolytes. Supplement as necessary. Potassium supplemented Magnesium at goal Nutritional support. Accucheks, ISS. GI/DVT prophylaxis. Condition: Critical Prognosis: Poor given multiple comorbidities. Rest of plan per hospitalist and other consultants. A total of 35 minutes of critical care time was spent reviewing the patient record, examining the patient, making a diagnostic and therapeutic plan, discussing this plan with the medical personnel, following up on diagnostic studies and following the patient for clinical stability excluding any and all procedures. At least 50% of this time was spent in direct, [id number] contact. Thank you for allowing me to participate in this patient's care. Further recommendations will depend on patient's clinical course. Please do not hesitate to contact me if you have any questions or concerns. This medical document was created using an electronic medical record system with [employer] dictation system. Although this document has been carefully reviewed, there may still be some phonetic and typographical errors. These areas are purely typographical due to imperfections of the software programs, and do not reflect any compromise in the patient's medical care. Dietary Evaluation Review Comments: 1) If GI is accessible consider Nepro 1.8 @ 30 ml/hr goal rate as tolerated with current rate of propofol on board. 2) If pt remains NPO >7 days consider TPN to meet at least 75% of estimated needs 3) If pt continues to receive HD, advance pt diet when medically feasible to a Renal Standard diet modified per DIGITAL TECH recommendations 4) If HD is discontinued and GFR is within normal range, advance pt diet to a Regular diet, modified per DIGITAL TECH recommendations 5)If HD is discontinued and GFR lies within STG 1-4, advance pt diet to a Renal Specific K2,lowphos,HECTOR,2gmNa,80gPro diet 6) If HD is discontinued and if GFR returns to normal levels then ALEXANDRA 1 pkt BID with meals may be considered to aid with wound healing 7) Continue current plan of care Expected Outcomes/Goals: 1) Pt to receive nutrition support within 7 days of NPO status 2) Pt labs to improve 3) Pt diet to advance 4) F/U in 2-3 days Plan discussed with: Other (RN Sunni, RT, MD) Critical Care Time(min): 35 MELBA CRUZ MD Apr 13, 2024 13:45
--- NOTE | 2024-04-13 13:57 | DVHPN2 ---
Subjective Skin rash is better and almost gone Reviewed: Care Plan, H&P, Labs, Medications, Previous Orders, Radiology, Other (Consultants) Changes from previous H/P or p: No Changes Objective Vitals Vital Signs Date Time Temp Pulse Resp B/P (MAP) Pulse Ox O2 Delivery O2 Flow Rate FiO2 04/13/24 13:24 85 24 104/62 (76) 96 40 04/13/24 12:00 Mechanical Ventilator+ 04/13/24 12:00 97.9 97.9 Intake/Output Intake and Output 04/13/24 07:00 Intake Total 3328.500 ml Output Total 1530 ml Balance 1798.500 ml Intake Oral 1320 ml IV Total 1751.500 ml Tube Feeding 257 ml Output Urine Total 1500 ml Chest Tube Drainage Total 30 ml General Appearance: Other (Intubated and sedated) HEENT: Atraumatic Lungs: Other (Few crackles bilateral lungs) Cardiovascular: Regular rate Abdomen: Soft Skin: Other (Mostly gone the macular rash in the abdominal and chest in area. Also redness in the lower abdominal folds and inguinal areas are better) Medications Current Medications Medications Dose Ordered Sig/Destini Route Start Time Stop Time Status Last Admin Dose Admin Heparin Sodium/ Dextrose 250 ml @ 18 mls/hr [id number] IV 03/31/24 23:45 UNV Midazolam HCl 50 ml @ 1 mls/hr Q24H IV 04/01/24 01:30 04/12/24 20:07 6 MLS/HR Ondansetron HCl 4 mg Q4HP PRN IV 04/01/24 05:00 Acetaminophen 650 mg Q6HP PRN PO 04/01/24 05:00 04/05/24 02:09 650 MG Nitroglycerin 0.4 mg Q5MINP PRN SL 04/01/24 05:00 Albuterol 2.5 mg Q6HR NEB 04/01/24 06:00 04/13/24 11:20 2.5 MG Albumin Human 100 ml @ 100 mls/hr KIRAN PRN IV 04/03/24 07:00 Norepinephrine Bitartrate 32 mg/ Sodium Chloride 250 ml @ 0.469 mls/ hr Q24H IV 04/04/24 06:30 04/08/24 17:08 0.938 MLS/HR Enteral Nutritional Formula 1,000 ml 20ML/HR GT 04/09/24 11:15 10/12/24 10:35 1,000 ML Sodium Chloride 10 ml QSHIFT@10,22 IV 04/09/24 22:00 04/13/24 09:16 10 ML Iron Sucrose 110 ml @ 110 mls/hr DAILY@1200 IV 04/10/24 12:00 04/13/24 12:28 110 MLS/HR Amiodarone HCl 200 mg Q12HR PO 04/10/24 22:00 UNV Amiodarone HCl 200 mg Q12HR PO 04/10/24 22:00 04/13/24 09:16 200 MG Phenylephrine HCl 80 mg/Sodium Chloride 250 ml @ 7.5 mls/hr Q24H IV 04/10/24 19:30 04/12/24 15:13 3.75 MLS/HR Fentanyl Citrate 250 ml @ 2.5 mls/hr Q24H IV 04/11/24 15:15 04/12/24 20:08 7.5 MLS/HR Linezolid 300 ml @ 150 mls/hr Q12HR IV 04/12/24 10:00 04/13/24 09:16 150 MLS/HR Purified Water 200 ml Q3HR GT 04/12/24 09:30 04/13/24 12:28 200 ML Furosemide 20 mg DAILY IV 04/12/24 09:30 04/13/24 09:15 20 MG Nystatin 1 applic BID TOP 04/12/24 22:00 04/13/24 12:28 1 APPLIC Levofloxacin 50 ml @ 50 mls/hr DAILY IV 04/13/24 10:00 04/13/24 09:15 50 MLS/HR Sodium Chloride 1,000 ml @ 50 mls/hr Q20H IV 04/12/24 16:45 04/13/24 12:51 50 MLS/HR Laboratory Results Laboratory Tests 04/13/24 09:30 Chemistry Test 04/13/24 09:30 Albumin 3.1 g/dL (3.2-4.8) L Calcium Level 8.5 mg/dL (8.7-10.4) L Total Protein 6.4 g/dL (5.7-8.2) Coagulation Test 04/13/24 09:30 Prothrombin Time 11.2 sec (9.3-11.8) Prothrombin Time INR 1.06 (0.9-1.15) Cardiac Markers Test 04/13/24 09:30 B-Type Natriuretic Peptide 373.79 pg/mL (0-100) LFT Test 04/13/24 09:30 Alanine Aminotransferase (ALT) 26 U/L (7-40) Alkaline Phosphatase 98 U/L (46-116) Aspartate Amino Transferase (AST) 43 U/L (13-40) H Total Bilirubin 0.5 mg/dL (0.2-1.0) Urinalysis Test 03/31/24 20:42 Urine Color [place] (Yellow) H Urine Clarity Ex.turbid (Clear) Urine pH 5.5 (5.0-9.0) Urine Specific [place] 1.020 (1.001-1.035) Urine Protein 2+ (Negative) H Urine Ketones Trace (Negative) Urine Blood 3+ /uL (Negative) H Urine Nitrite Negative (Negative) Urine Bilirubin Negative (Negative) Urine Urobilinogen 2 mg/dL (Negative) H Urine Leukocyte Esterase 3+ /uL (Negative) Urine RBC 508 /hpf (0 - 4) Urine WBC 2451 /hpf (0 - 5) Urine WBC Clumps Present /hpf (None Seen) Urine Squamous Epithelial Cells None seen /hpf (<5) Urine Bacteria Mod /hpf (None Seen) H Urine Mucus Few (None Seen) Urine Glucose Normal mg/dL (Normal) Blood Gas Results Test 04/13/24 06:25 Arterial Blood pH 7.474 (7.350-7.450) FiO2 % 40.0 Microbiology Microbiology Date/Time Source Procedure Growth Status 04/09/24 13:10 Blood Blood Culture - Preliminary NO GROWTH AFTER 72 HOURS OF INCUBATION. Resulted 04/08/24 08:02 Thoracic Fluid Gram Stain - Final Resulted 04/08/24 08:02 Thoracic Fluid Anaerobic Culture - Preliminary Resulted 04/08/24 08:02 Thoracic Fluid Aerobic Culture - Final Resulted 04/07/24 07:44 Urine - [place] Urine Culture - Final Complete 04/01/24 11:19 Nose MRSA Screen - Final Complete 03/31/24 22:55 Sputum Endotracheal Wash Gram Stain - Final Complete 03/31/24 22:55 Sputum Endotracheal Wash Respiratory Culture - Final Complete Assessment/Plan Assessment/Plan Acute respiratory failure Multi organ failure Sepsis and septic shock Non-STEMI Pleural effusion and chest tube AFib with RVR Diastolic heart failure Hypernatremia Acute kidney injury/resolved Kidney stone Morbid obesity Hypokalemia Severe anemia Skin rash likely secondary to the antibiotics Plan: Continue plan of care. Continue free water and then you antibiotics. Repeat labs. Further plan per orders Plan discussed with: Other (Nursing) My Orders Orders - SIL RODRÍGUEZ MD Procedure Category Date Status Time Comprehensive LAB 04/14/24 Verified Metabolic Panel 06:00 Chest Portable XY 04/14/24 Logged 06:00 Abg W/ Co-Ox RT 04/14/24 Logged 06:00 Date of Service: Apr 13, 2024 Billing Provider: SIL RODRÍGUEZ MD Common Visit Codes: [id number] INP/OBS CARE(HIGH) SIL RODRÍGUEZ MD Apr 13, 2024 13:57
[2024-04-14] VITALS (103 sets, daily range): BP systolic 79–139; BP diastolic 43–72; PULSE 61–98; RESP 18–33; TEMP 97.4–98.9; O2SAT 92–99
[2024-04-14 05:02] LABS: Alanine Aminotransferase 25 U/L (7-40); Albumin 2.9 g/dL (3.2-4.8); Alkaline Phosphatase 84 U/L (46-116); Anion Gap 10 (5-15); Aspartate Aminotransferase 41 U/L (13-40); BUN/Creatinine Ratio 32.9 (10.0-20.0); Blood Urea Nitrogen 57 mg/dL (9-23); Calcium 8.2 mg/dL (8.7-10.4); Carbon Dioxide 26 mmol/L (20-31); Chloride 111 mmol/L (98-107); Glucose 88 mg/dL (74-106); Potassium 3.6 mmol/L (3.5-5.1); Sodium 147 mmol/L (136-145)
[2024-04-14 05:03] LABS: Bilirubin, Total 0.5 mg/dL (0.2-1.0); Total Protein 5.7 g/dL (5.7-8.2)
--- NOTE | 2024-04-14 06:08 | DVH ---
CHEST RADIOGRAPH Indication:fu Technique: Single frontal view of the chest was obtained Comparison: XY CHEST PORTABLE on DOS: 04/13/24, XY CHEST XRAY 1 VIEW on DOS: 04/12/24, XY CHEST XRAY 1 VIEW on DOS: 04/11/24, XY CHEST XRAY 1 VIEW on DOS: 04/10/24, XY CHEST PORTABLE on DOS: 04/09/24, XY CHEST PORTABLE on DOS: 04/13/24 FINDINGS: Lines and Tubes: Endotracheal tube, enteric catheter and right PICC in satisfactory position. Right chest tube in satisfactory position. Lungs: Multifocal airspace disease. Pleura: No effusion. No pneumothorax. Cardiomediastinal contours: Unremarkable Bones: Unremarkable IMPRESSION: Lines and tubes in satisfactory position. No significant interval change.
[2024-04-14 07:44] LABS: Base Excess 1.2 mmol/L (-2.0-3.0)
--- NOTE | 2024-04-14 08:39 | DVHPN2 ---
Progress Note - Dictate Date Seen: Apr 14, 2024 Has the PT tested + for MRSA If YES, has PT been informed?: No Medical Necessity Reason Pt with a Central, PICC or Fol: Yes The following are medically ne: Central Line, Martines Catheter vital signs Vital Sign Date Time Temp Pulse Resp B/P (MAP) Pulse Ox O2 Delivery O2 Flow Rate FiO2 04/14/24 07:59 93 22 106/64 (78) 97 40 04/14/24 06:00 Mechanical Ventilator+ 04/14/24 04:00 98.9 98.9 Total Intake and Output 04/13/24 04/13/24 04/14/24 15:00 23:00 07:00 Intake Total 564.375 ml 1542.35 ml 750 ml Output Total 460 ml 400 ml Balance 564.375 ml 1082.35 ml 350 ml medications Current Medications Medications Dose Ordered Sig/Destini Route Start Time Stop Time Status Last Admin Dose Admin Heparin Sodium/ Dextrose 250 ml @ 18 mls/hr [id number] IV 03/31/24 23:45 UNV Midazolam HCl 50 ml @ 1 mls/hr Q24H IV 04/01/24 01:30 04/12/24 20:07 6 MLS/HR Ondansetron HCl 4 mg Q4HP PRN IV 04/01/24 05:00 Acetaminophen 650 mg Q6HP PRN PO 04/01/24 05:00 04/05/24 02:09 650 MG Nitroglycerin 0.4 mg Q5MINP PRN SL 04/01/24 05:00 Albuterol 2.5 mg Q6HR NEB 04/01/24 06:00 04/14/24 06:28 2.5 MG Albumin Human 100 ml @ 100 mls/hr KIRAN PRN IV 04/03/24 07:00 Norepinephrine Bitartrate 32 mg/ Sodium Chloride 250 ml @ 0.469 mls/ hr Q24H IV 04/04/24 06:30 04/08/24 17:08 0.938 MLS/HR Enteral Nutritional Formula 1,000 ml 20ML/HR GT 04/09/24 11:15 04/12/24 10:35 1,000 ML Sodium Chloride 10 ml QSHIFT@ IV 04/09/24 22:00 04/13/24 21:40 10 ML Iron Sucrose 110 ml @ 110 mls/hr DAILY@1200 IV 04/10/24 12:00 04/13/24 12:28 110 MLS/HR Amiodarone HCl 200 mg Q12HR PO 04/10/24 22:00 UNV Amiodarone HCl 200 mg Q12HR PO 04/10/24 22:00 04/13/24 21:40 200 MG Phenylephrine HCl 80 mg/Sodium Chloride 250 ml @ 7.5 mls/hr Q24H IV 04/10/24 19:30 04/12/24 15:13 3.75 MLS/HR Fentanyl Citrate 250 ml @ 2.5 mls/hr Q24H IV 04/11/24 15:15 04/12/24 20:08 7.5 MLS/HR Linezolid 300 ml @ 150 mls/hr Q12HR IV 04/12/24 10:00 04/13/24 21:40 150 MLS/HR Purified Water 200 ml Q3HR GT 04/12/24 09:30 04/14/24 03:14 200 ML Furosemide 20 mg DAILY IV 04/12/24 09:30 04/13/24 09:15 20 MG Nystatin 1 applic BID TOP 04/12/24 22:00 04/13/24 21:40 1 APPLIC Levofloxacin 50 ml @ 50 mls/hr DAILY IV 04/13/24 10:00 04/13/24 09:15 50 MLS/HR Sodium Chloride 1,000 ml @ 50 mls/hr Q20H IV 04/12/24 16:45 04/13/24 12:51 50 MLS/HR Dexmedetomidine HCl 400 mcg/ Dextrose 100 ml @ 6.05 mls/hr [id number] IV 04/13/24 15:45 04/13/24 16:17 6.05 MLS/HR Enoxaparin Sodium 40 mg DAILY SC 04/14/24 10:00 laboratory and microbiology Laboratory Tests 04/14/24 04:36 Test 04/14/24 04:36 Range/Units Serum Glucose 88 74-106 mg/dL Assessment/Plan s/p thoracoscopy and chest tube placement Patient is a 68-year-old female who was transferred from [facility]. She originally presented to [facility] for shortness of breath ongoing for few days. She is intubated and is being managed in ICU. Information was obtained by reviewing the chart and communicating with staff. Reportedly, she presented with respiratory failure to [facility] (oxygen saturation was 88%) and over there was found to have white blood cell count of 26.6, hemoglobin of 11.1, creatinine of 5.6, potassium of 5.6 and troponin of 1.01. She was given 365 mg of aspirin in [facility]. She did have an episode of atrial fibrillation with RVR with questionable ST changes and was transferred to our facility for further care. She was also found to have right pleural effusion in [facility] and was diagnosed with non-STEMI. Intubated, on vent support. On pressure support. Obese. Mucosa is pale. Scattered rhonchi in the lungs is heard. Cardiac: Regular, no thrill/gallop. Abdomen is soft with increased bowel sounds. There is no gross mass. Extremities reveal 1+ edema bilaterally. Available past medical history includes obesity and questionable history of psoriasis. WBC: 25.3 - 23.7 - 20.2 - 20.5 - 17.6 - 18.4 - 19.2 - 19.4 - 22.2 - 16.4 - 16.1 - 19.5 - 14.7 - 12.3 - 9.8 - 10.0 - 8.3 - 9.2 Hemoglobin: 10.8 - 9.1 - 8.5 - 8.4 - 8.8 - 8.6 - 8.9 - 8.1 - 8.4 - 8.1 - 8.1 - 8.2 - 8.0 - 7.4 - 7.4 - 7.7 - 7.1 - 8.0 - 7.5 D-dimer: 3.62 Creatinine: 5.67 - 5.78 - 5.41 - 4.92 - 4.55 - 4.68 - 4.71 - 4.64 - 4.48 - 3.83 - 3.66 - 3.65 - 3.25 - 2.82 - 2.41 - 2.34 - 2.01 - 1.90 - 1.60 - 1.83 - 1.73 Potassium: 6.0 - 6.3 - 6.1 - 6.0 - 5.3 - 5.0 - 4.9 - 4.8 - 5.1 - 5.4 - 4.9 - 5.3 - 4.8 - 4.5 - 4.7 - 4.3 - 4.2 - 3.9 - 4.6 - 3.8 - 3.5 - 3.3 - 3.6 - 3.6 Lactic acid: 3.3 - 3.4 - 2.3 - 2.5 - 2.5 - 2.7 - 2.4 - 2.5 - 3.1 - 2.3 - 1.7 - 1.7 TSH: 1.71 BNP: 274.69 - 1944.81 - 373.79 Troponin (high sensitive): 1469 - 1515 - 1684 Blood culture: positive Pleural fluid culture: E-coli Digoxin level: 2.09 Stool OB: positive Chest x-ray revealed: IMPRESSION: 1. Moderate right pleural effusion. 2. Cardiomegaly with mild pulmonary vascular congestion bilaterally. Repeat chest x-ray revealed: IMPRESSION: 1. Endotracheal tube and gastric tubes in place as described. 2. Right IJ central venous catheter projects over the lower SVC. 3. Mild cardiomegaly and prominence of the pulmonary vasculature. 4. Moderate to large right pleural effusion. Repeat chest x-ray revealed: IMPRESSION: Similar lung aeration with large right pleural effusion. No pneumothorax seen. Stable lines and tubes. Repeat chest x-ray revealed: IMPRESSION: Similar lung aeration with large right pleural effusion. No pneumothorax seen. Stable lines and tubes. Repeat chest xry revealed: Lines and tubes: ET in the mid thoracic trachea. NG crosses midline. Right CVC is stable. Left HD catheter projects over the mediastinum. Cardiomediastinal silhouette: Enlarged Pulmonary vasculature: prominent Lung expansion: low Lung airspace: patchy bilateral airspace opacity. Lung interstitium: normal Pleura: Similar large right effusion. Pneumothorax: no Bones: Unremarkable Other: no IMPRESSION: Lines and tubes, as above. Similar lung aeration bilaterally with a right pleural effusion and patchy airspace opacities. Repeat chest xry revealed: IMPRESSION: 1. Stable position of the support lines and tubes. 2. Interstitial and alveolar opacities. Repeat chest xry revealed: IMPRESSION: Unchanged multifocal airspace disease. Small to moderate right pleural effusion ; possibly loculated. Repeat chest xry revealed: IMPRESSION: Lines and tubes in satisfactory position. No significant interval change. Repeat chest xry revealed: IMPRESSION: 1. Support lines and tubes in appropriate position. 2. Pulmonary vascular congestion. 3. Bilateral pleural effusions, right greater than left. Repeat chest xry revealed: IMPRESSION: 1. Support lines and tubes in appropriate position. 2. Pulmonary vascular congestion. 3. Bilateral pleural effusions, right greater than left. Repeat chest xry revealed: IMPRESSION: Interval placement of right chest tube which projects deep into the right hilar region. Repeat chest xry revealed: IMPRESSION: No interval change Repeat chest xry revealed: Findings/IMPRESSION: Right IJ CVC terminating in the SVC. Endotracheal tube projected 5 cm superior to the mili. Enteric tube projected below the GE junction. Right-sided PICC projects terminating near the cavoatrial junction. Small bilateral pleural effusions and/or atelectasis with superimposed infection not excluded. Repeat chest xry revealed: MPRESSION: 1. Bilateral pleural effusions and airspace disease right greater than left. Repeat chest xry revealed: IMPRESSION: 1. Endotracheal tube terminates 6.0 cm above the mili, previously 3.1 cm above the mili. Otherwise, No significant interval change. Repeat chest xry revealed: IMPRESSION: 1. Endotracheal tube terminates 6.0 cm above the mili, previously 3.1 cm above the mili. Otherwise, No significant interval change. Repeat chest xry revealed: IMPRESSION: Lines and tubes in satisfactory position. No significant interval change. Repeat chest xry revealed: IMPRESSION: Lines and tubes in satisfactory position. No significant interval change. Renal ultrasound revealed: IMPRESSION: 1. Right kidney measures 13.4 cm. Decreased cortical thickness on the right. 2. Left kidney measures 10.2 cm. 3. No hydronephrosis on the right grade 1 hydronephrosis on the left. 4. Bilateral renal calculi. CT scan of the chest/abdomen and pelvis revealed: IMPRESSION: 1. Moderate partially loculated right pleural effusion and consolidations in the right middle and lower lobes which could be pneumonia and/or atelectasis. 2. Mild cardiomegaly, mild interstitial pulmonary edema, and body wall edema. 3. There is a 1.9 cm calculus in the right UPJ with mild right hydronephrosis 4. There is a 2.6 cm somewhat staghorn appearing calculus in the left renal pelvis and UPJ causing mild predominantly mid to lower pole left hydronephrosis. Mild soft tissue stranding about the left renal pelvis which could be due to obstruction or superimposed infection. Correlate with urinalysis. 5. Partial duplication of the left renal collecting system without hydronephrosis in the upper pole. 6. Moderate right perinephric, right retroperitoneal, and bilateral extraperitoneal pelvis low-density fluid and very mild left retroperitoneal low-density fluid. This could be fluid related to bilateral renal obstructions and forniceal ruptures versus evolved retroperitoneal hematoma. This is suboptimally evaluated without intravenous contrast. 7. Fluid-filled small and large bowel loops which may be physiologic or related to enterocolitis and could be manifesting as loose stools and/or diarrhea. 8. Prominent endometrium measuring at least 2.8 cm, suboptimally evaluated by CT. Recommend characterization with nonemergent pelvic ultrasound if clinically indicated. 9. Mild hepatosplenomegaly. 10. Moderate three-vessel calcified coronary artery disease and mild aortic valve calcification. 11. Right IJ central venous catheter in place terminating in the low SVC. 12. Small soft tissue stranding in the right supraclavicular neck which could be blood products. 13. Endotracheal tube terminates above the mili. CT of the head revealed: IMPRESSION: 1. No acute intracranial abnormality. 2. Generalized cerebral volume loss and mild chronic microvascular ischemic change. 3. Partially imaged endotracheal tube. Chest ultrasound revealed: Findings/Impression: There is a trace bilateral pleural effusion. Thoracentesis: FINDINGS: Moderate size, complex and septated right pleural effusion. Aspirated fluid is thick and green in consistency. IMPRESSION: Right thoracentesis with 250 mL removed for laboratory analysis. EKG in [facility] revealed sinus tachycardia, poor R-wave progression old inferior wall AL. later EKG revealed atrial fibrillation with RVR. Telemetry reveals sinus rhythm, occasions of A-fib with RVR, SVT Echocardiogram revealed: Technically limited study secondary to poor acoustic windows. Left ventricle: Left ventricle was normal-sized. Mild concentric left ventricular hypertrophy was seen. LVEF was 55-60%. No gross wall motion abnormality was observed, but its presence can not be ruled out on the basis of this study. Right ventricle is mildly dilated with normal systolic function. Left atrium was mildly dilated. Right atrium was normal-sized. Aortic valve was trileaflet. There was no aortic insufficiency. There was aortic sclerosis with no stenosis. There was trivial mitral/tricuspid regurgitation. Pulmonary valve was not well visualized. Right ventricular systolic pressure was assessed around 48 mm Hg. There was no pericardial effusion. Patient is a 68-year-old morbidly obese patient who presented with respiratory failure to the hospital. Presentation is in favor of sepsis/septic shock. Multiorgan failure is observed. She is intubated and on vent support. She is on multiple pressor support. Life findings are in favor of acute renal failure. She also is known to have nephrolithiasis with history of staghorn calculi. Cardiac-ceballos, the patient did have episode of atrial fibrillation with RVR. She is found to have increased troponin. Presentation questions non-STEMI and possibly type 2 ischemia. Recognizing the presentation, ischemic workup should be postponed after clinical stability. Is being followed by Nephrology. Had episodes of tachyarrhythmia. Loaded with Digoxin. Positive cultures. Repeated a-fib with RVR. Septic shock Multiorgan failure Acute respiratory failure on vent support Acute renal failure Nephrolithiasis Staghorn calculi Hydronephrosis Abnormal troponin, non-STEMI Atrial fibrillation with RVR Paroxysmal AFib Acute heart failure, diastolic Hepatosplenomegaly Pleural effusion Status post thoracentesis Morbid obesity s/p Cardioversion for A-fib with RVR s/p thoracoscopy and chest tube placement Cardiac suggestion for management: Manage in ICU Follow-up electrolytes and kidney function tests and correct abnormalities Pressure support to keep mean arterial pressure above 65 Amiodarone oral/O mg BID Heparin drip Daily aspirin (81 mg daily) Loaded with Digoxin Off Lidocaine drip s/p thoracoscopy and chest tube placement IV metoprolol PRN for a-fib with RVR episodes. Sepsis workup and management as per primary team Cardiac ceballos, patient is elevated risk patient for urgent Thoracotomy procedure. You can consider proceeding with procedure under appropriate intra and post operative hemodynamic monitoring. If you choose to proceed with procedure, try to avoid hypotension. Evaluation and management of respiratory failure as per primary team/Pulmonary Evaluation and management of nephrolithiasis/hydronephrosis as per primary/Urology Evaluation and management of acute renal failure as per Nephrology Ischemic workup, after clinical stability (only if regained higher brain function) Further evaluation and management as per above and clinical course. A total of 75 minutes was spent reviewing the patient record, examining the patient, making a diagnostic and therapeutic plan, discussing this plan with medical personnel, following up on diagnostic studies and following the patient for clinical stability excluding any and all procedures. At least 50% of this time was spent in direct, [id number] contact. Thank you for allowing me to participate in this patient's care. Further recommendations will depend on patient's clinical course. Please do not hesitate to contact me if you have any questions or concerns. This medical document was created using electronic medical record system with [employer] computerized dictation system. Although this document has been carefully reviewed, there may still be some phonetic and typographical errors. These areas are purely typographical due to the imperfection of the software programs, and do not reflect any compromise in the patient's medical care. Dietary Evaluation Review Comments: 1) If GI is accessible consider Nepro 1.8 @ 30 ml/hr goal rate as tolerated with current rate of propofol on board. 2) If pt remains NPO >7 days consider TPN to meet at least 75% of estimated needs 3) If pt continues to receive HD, advance pt diet when medically feasible to a Renal Standard diet modified per [employer]ICE [employer]ER recommendations 4) If HD is discontinued and GFR is within normal range, advance pt diet to a Regular diet, modified per EMER[employer] SERVICE [employer]ER recommendations 5)If HD is discontinued and GFR lies within STG 1-4, advance pt diet to a Renal Specific K2,lowphos,HECTOR,2gmNa,80gPro diet 6) If HD is discontinued and if GFR returns to normal levels then ALEXANDRA 1 pkt BID with meals may be considered to aid with wound healing 7) Continue current plan of care Expected Outcomes/Goals: 1) Pt to receive nutrition support within 7 days of NPO status 2) Pt labs to improve 3) Pt diet to advance 4) F/U in 2-3 days Plan discussed with: Other (nurse) HERMINIO JOHNSON MD Apr 14, 2024 08:39
--- NOTE | 2024-04-14 08:45 | DVHPNRES ---
Progress Note Date Seen: Apr 14, 2024 Resident Creating Document: KEVON BLANTON RESIDENT Has the PT tested + for MRSA If YES, has PT been informed?: No Medical Necessity Reason Pt with a Central, PICC or Fol: Yes The following are medically ne: Central Line, Martines Catheter Subjective Review of Systems This is a 68-year-old female with unknown past medical history who was transferred from another facility ([facility]) for higher level of care. The patient initially was treated at that facility for shortness of breaths and back pain. The patient was transferred to our facility for higher level of care. The patient on arrival to the ED was tachypneic with severe respiratory failure, tachycardic rhythm consistent with atrial fibrillation and was saturating in the 70s. Initially placed on non-rebreather mask and then emergently intubated to protect airway. The patient was started on amiodarone drip 1 milligram/minute, phenylephrine, vasopressin and levophed. Patient initially was started on broad-spectrum antibiotics with vancomycin and Zosyn but for renal protection, since GFR was less than 10 and to have a more broad- spectrum coverage we added meropenem and discontinued Zosyn. To the ICU for further assessment and management. Patient seen and examined at bedside. Patient is currently off sedation and off vasopressors at this time. The patient is currently on mechanical ventilation on the following parameters: VT 500, RR 18, FiO2 40%, peep five, saturating 95%. Today, right chest tube is draining 20 cc in the last 24 hours. Patient is opening eyes responding to her name on verbal stimuli we will possibly do a CPAP trial today in the morning. Patient still has some diminished breath sounds in the right lung base. Left lung sounds grossly clear. We will continue the patient on IV levofloxacin and linezolid. Will stop both IV fluids. ROS unable to obtain due to patient's current status, intubation. Objective vital signs Vital Sign Date Time Temp Pulse Resp B/P (MAP) Pulse Ox O2 Delivery O2 Flow Rate FiO2 04/14/24 07:59 93 22 106/64 (78) 97 40 04/14/24 06:00 Mechanical Ventilator+ 04/14/24 04:00 98.9 98.9 Total Intake and Output 04/13/24 04/13/24 04/14/24 15:00 23:00 07:00 Intake Total 564.375 ml 1542.35 ml 750 ml Output Total 460 ml 400 ml Balance 564.375 ml 1082.35 ml 350 ml medications Current Medications Medications Dose Ordered Sig/Destini Route Start Time Stop Time Status Last Admin Dose Admin Heparin Sodium/ Dextrose 250 ml @ 18 mls/hr [id number] IV 03/31/24 23:45 UNV Midazolam HCl 50 ml @ 1 mls/hr Q24H IV 04/01/24 01:30 04/12/24 20:07 6 MLS/HR Ondansetron HCl 4 mg Q4HP PRN IV 04/01/24 05:00 Acetaminophen 650 mg Q6HP PRN PO 04/01/24 05:00 04/05/24 02:09 650 MG Nitroglycerin 0.4 mg Q5MINP PRN SL 04/01/24 05:00 Albuterol 2.5 mg Q6HR NEB 04/01/24 06:00 04/14/24 06:28 2.5 MG Albumin Human 100 ml @ 100 mls/hr KIRAN PRN IV 04/03/24 07:00 Norepinephrine Bitartrate 32 mg/ Sodium Chloride 250 ml @ 0.469 mls/ hr Q24H IV 04/04/24 06:30 04/08/24 17:08 0.938 MLS/HR Enteral Nutritional Formula 1,000 ml 20ML/HR GT 04/09/24 11:15 04/12/24 10:35 1,000 ML Sodium Chloride 10 ml QSHIFT@10,22 IV 04/09/24 22:00 04/13/24 21:40 10 ML Iron Sucrose 110 ml @ 110 mls/hr DAILY@1200 IV 04/10/24 12:00 04/13/24 12:28 110 MLS/HR Amiodarone HCl 200 mg Q12HR PO 04/10/24 22:00 UNV Amiodarone HCl 200 mg Q12HR PO 04/10/24 22:00 04/13/24 21:40 200 MG Phenylephrine HCl 80 mg/Sodium Chloride 250 ml @ 7.5 mls/hr Q24H IV 04/10/24 19:30 04/12/24 15:13 3.75 MLS/HR Fentanyl Citrate 250 ml @ 2.5 mls/hr Q24H IV 04/11/24 15:15 04/12/24 20:08 7.5 MLS/HR Linezolid 300 ml @ 150 mls/hr Q12HR IV 04/12/24 10:00 04/13/24 21:40 150 MLS/HR Purified Water 200 ml Q3HR GT 04/12/24 09:30 04/14/24 03:14 200 ML Furosemide 20 mg DAILY IV 04/12/24 09:30 04/13/24 09:15 20 MG Nystatin 1 applic BID TOP 04/12/24 22:00 04/13/24 21:40 1 APPLIC Levofloxacin 50 ml @ 50 mls/hr DAILY IV 04/13/24 10:00 04/13/24 09:15 50 MLS/HR Sodium Chloride 1,000 ml @ 50 mls/hr Q20H IV 04/12/24 16:45 04/13/24 12:51 50 MLS/HR Dexmedetomidine HCl 400 mcg/ Dextrose 100 ml @ 6.05 mls/hr [id number] IV 04/13/24 15:45 04/13/24 16:17 6.05 MLS/HR Enoxaparin Sodium 40 mg DAILY SC 04/14/24 10:00 Examination Physical Examination General: Patient Recently non sedated on mechanical ventilator: VT 500, RR 22, FiO2 40%, PEEP 5, sat 96% HEENT: Normocephalic, atraumatic, moist mucous membranes Respiratory/pulmonary: There are decreased breath sounds on right lung base. There is a right sided 40 sized chest tube draining aprox 20cc of serosanguineous fluid into the Pleur-evac in the last 24 hrs. Cardiovascular: Heart sounds currently regular and rhythmic with occasional PACs . No murmurs at this time. Abdomen: Abdomen slightly distended, there is no pain to palpation in any of the abdominal quadrants, no palpable masses. Extremities: There is minimal 1+ pitting edema in the lower extremities bilaterally. Peripheral Pulses: 3+ Radial (R). 3+ Radial (L). 3+ Dorsalis pedis (R). 3+ Dorsalis pedis(L) Skin: There is dry skin in bilateral lower extremities with scales and excoriations. Neurological: Non sedated, sedation recently turned off laboratory and microbiology Laboratory Tests 04/14/24 04:36 Test 04/14/24 04:36 Range/Units Serum Glucose 88 74-106 mg/dL Microbiology Date/Time Source Procedure Growth Status 04/09/24 13:10 Blood Blood Culture - Preliminary NO GROWTH AFTER 72 HOURS OF INCUBATION. Resulted 04/08/24 08:02 Thoracic Fluid Gram Stain - Final Complete 04/08/24 08:02 Thoracic Fluid Anaerobic Culture - Final Complete 04/08/24 08:02 Thoracic Fluid Aerobic Culture - Final Complete 04/07/24 07:44 Urine - [place] Urine Culture - Final Complete 04/01/24 11:19 Nose MRSA Screen - Final Complete 03/31/24 22:55 Sputum Endotracheal Wash Gram Stain - Final Complete 03/31/24 22:55 Sputum Endotracheal Wash Respiratory Culture - Final Complete Problem List/Assessment/Plan Problem List/Assessment/Plan Assessment/Plan Neurology Sedation -currently on midazolam and fentanyl Vasopressors -currently on Levophed, vasopressin, phenylephrine Respiratory Acute hypoxic respirtory failure likel due to right-sided pleural effusion and consolidation on right middle and lower lobes -initial chest x-ray showed severe right lower lobe opacities consistent with either consolidation or moderate to severe pleural effusion -CT of the chest and abdomen showed moderate partial loculated right pleural effusion and consolidation on right middle/lower lobes. Mild cardiomegaly and interstitial pulmonary edema. It also showed right hydronephrosis with 1.9 cm calculus into the right UPJ. There is also a 2.6 cm staghorn appearing calculus causing mid to lower pole left hydronephrosis. -the patient was initially started on Zosyn, vancomycin and cefepime. We discontinued Zosyn and cefepime. -we will switch linezolid back to vancomycin due to low platelet. -Continue IV vanco and meropenem -consulted interventional radiologist which performed right-sided thoracentesis removing 250 mL of fluid which were sent to analysis. -currently on mechanical ventilator on the following parameters: VT 500, RR 22, FiO2 40%, PEEP 6, saturating 94%. -Surgical thoracoscopy was performed on 04/08/2024 with evacuation of empyema and insertion of a chest tube draining approximately 200 cc of purulent material. -Right chest tube is draining aprox 20cc in the last 24 hrs. -ABG showing a pH of 7.50, pCO2 30.9, HC03 of 23.9 with a PaO2 of 76.6. Consistent with a respiratory alkalosis likely due to breathing over the vent while coming out of sedation -Will try CPAP trial tomorrow AM -Discussed with daughter izabel regarding possible tracheostomy which stated that if needed they will sign the consent. -Stop IV fluids and lasix Sepsis in the setting of loculated right-sided pleural effusion (EMPYEMA) and pneumonia -ordered blood cultures, sputum cultures and urine culture -currently on IV meropenem and linezolid -Will monitor plateletes closely -S/P right-sided thoracentesis removing 250 mL of fluids. -chest x-ray this morning showed still right-sided opacities and left opacities in the base of the lung. -Surgical thoracoscopy was performed on 04/08/2024 with evacuation of empyema and insertion of a chest tube draining approximately 200 cc of purulent material. -Right chest tube is draining aprox 20cc in the last 24 hrs. Cardiology Acute on chronic systolic/diastolic heart failure -BNP came back elevated at 274.69 -initial EKG showed sinus tachycardia with PACs but no ST segment elevation or depression at that time -troponins came back elevated at 1469 and peaked up to 1684 -echocardiogram is showing an LVEF of 55-60% with increased RVSP at 48 mmHg and no pericardial effusion -Stop IV fluids and lasix NSTEMI type II ? -troponins came back elevated at 1469 and peaked up to 1684 -Trend trops Atrial fibrilation with RVR -CHADS VASC score HAS BLED score -heparin drip was hold for right-sided chest tube placement and david catheter placement -patient underwent atrial flutter with a heart rate of 180 to 200, cardiology decided to perform synchronized cardioversion and continue amiodarone drip. -S/P multiple synchronized cardioversions x6 -Continue amiodarone 200mg PO BID -patient was given two doses of digoxin but due to high levels of digoxin blood 3rd dose was held Nephrology Bilateral hydronephrosis -CT scan of the chest and abdomen showed right hydronephrosis with 1.9 cm calculus into the right UPJ, there was also a 2.6 cm staghorn appearing calculus causing mid to lower pole left hydronephrosis. -nephrology on board -consulted Urology for bilateral nephrostomy tube placement -David catheter placed on L IJ on 04/08/24 CHRISTOPH likely postobstructive nephropathy -most likely secondary to bilateral renal calculi -creatinine was 1.73 and BUN 57. Kidney function slightly improving -Holding HD at this time since Cr is slightly improving -nephrology and urology on board -consulted Urology for bilateral nephrostomy tube placement, if therapy does not improve patient might need hemodialysis as last resource Nutrition -Continue EN Nepro at 30cc/hr Hyperkalemia -potassium was 3.6 -monitor closely DVT prophylaxys -Hb is at 7.5 but has been stable at this time -Continue on Enoxaparin 40mg sc QD. Lines: IJ right triple-lumen placed on 03/31/2024 (will remove Central line and place a PICC line) Peripheral in right wrist placed on 03/31/2024 Peripheral in left forearm placed on 03/31/2024 David catheter placed in the left IJ placed on 04/02/2024 (REMOVED) Goals of care discussed with Anthony rogers via phone >23min and discussed regarding possible tracheostomy if patient keeps failing CPAP trial. Critical time spent > 63min Plan discussed with Dr. Jones Plan discussed with: Daughter (Spoke with daughter Izabel via phone regarding possible need of tracheostomy tube which she states that if needed they will sign the consent.) My Orders My Orders Orders - KEVON BLANTON RESIDENT Procedure Category Date Status Time Complete Blood Count LAB 04/14/24 In Process 06:35 Enoxaparin Sodium PHA 04/14/24 In Process (Lovenox) 10:00 Dietary Evaluation Review Comments: 1) If GI is accessible consider Nepro 1.8 @ 30 ml/hr goal rate as tolerated with current rate of propofol on board. 2) If pt remains NPO >7 days consider TPN to meet at least 75% of estimated needs 3) If pt continues to receive HD, advance pt diet when medically feasible to a Renal Standard diet modified per [employer] recommendations 4) If HD is discontinued and GFR is within normal range, advance pt diet to a Regular diet, modified per [employer] recommendations 5)If HD is discontinued and GFR lies within STG 1-4, advance pt diet to a Renal Specific K2,lowphos,HECTOR,2gmNa,80gPro diet 6) If HD is discontinued and if GFR returns to normal levels then ALEXANDRA 1 pkt BID with meals may be considered to aid with wound healing 7) Continue current plan of care Expected Outcomes/Goals: 1) Pt to receive nutrition support within 7 days of NPO status 2) Pt labs to improve 3) Pt diet to advance 4) F/U in 2-3 days Date of Service: Apr 14, 2024 Billing Provider: LAURIE JONES MD Common Visit Codes: 85676-[id number] CARE 30-74 MIN KEVON BLANTON RESIDENT Apr 14, 2024 08:45 LAURIE JONES MD Apr 15, 2024 16:06
[2024-04-14 08:51] LABS: Basophils # (auto) 0 10 ^3/uL (0-0.2); Basophils % (auto) 0.4 % (0.0-2.0); Eosinophils # (auto) 0.4 10 ^3/uL (0-0.8); Hemoglobin 7.5 g/dL (12.2-16.2); Monocytes # (auto) 0.5 10 ^3/uL (0-1.3); Neutrophils # (auto) 7.2 10 ^3/uL (1.6-8.6)
[2024-04-14 08:53] LABS: Eosinophils % (auto) 4.4 % (0.0-7.0); Hematocrit 24.8 % (36.0-46.0); Lymphocytes % (auto) 10.8 % (10.0-50.0); Mean Corpuscular Hemoglobin 26.7 pg (28.0-32.0); Mean Corpuscular Hgb Conc. 30.4 g/dL (32.0-36.0); Mean Corpuscular Volume 87.9 fL (80.0-100.0); Monocytes % (auto) 5.7 % (0.0-12.0); Neutrophils % (auto) 78.7 % (37.0-80.0); Nucleated Red Blood Cells % 0.1 %; Platelet Count (auto) 169 10^3/uL (140-450); Red Blood Cells 2.82 10^6/uL (4.0-5.20); White Blood Cell 9.2 10^3/uL (4.4-10.8)
[2024-04-14 08:59] LABS: Red Cell Distribution Width 22.5 % (11.8-14.3)
[2024-04-14] MEDS: ENOXAPARIN SOD 40 MG/0.4 ML SYRINGE SC SCH (09:20)
--- NOTE | 2024-04-14 10:33 | DVHPN2 ---
Progress Note Date Seen: Apr 14, 2024 Has the PT tested + for MRSA If YES, has PT been informed?: No Medical Necessity Reason Pt with a Central, PICC or Fol: Yes The following are medically ne: Central Line, Martines Catheter Subjective Review of Systems: RESPIRATORY:Abnormal Other Systems: Patient seen and examined by myself follow-up today Patient remained intubated on ventilator Objective vital signs Vital Sign Date Time Temp Pulse Resp B/P (MAP) Pulse Ox O2 Delivery O2 Flow Rate FiO2 04/14/24 10:01 86 30 132/72 (92) 97 40 04/14/24 08:00 Mechanical Ventilator+ 04/14/24 08:00 97.4 97.4 Total Intake and Output 04/13/24 04/13/24 04/14/24 15:00 23:00 07:00 Intake Total 564.375 ml 1542.35 ml 850 ml Output Total 460 ml 400 ml Balance 564.375 ml 1082.35 ml 450 ml medications Current Medications Medications Dose Ordered Sig/Destini Route Start Time Stop Time Status Last Admin Dose Admin Heparin Sodium/ Dextrose 250 ml @ 18 mls/hr [id number] IV 03/31/24 23:45 UNV Midazolam HCl 50 ml @ 1 mls/hr Q24H IV 04/01/24 01:30 04/12/24 20:07 6 MLS/HR Ondansetron HCl 4 mg Q4HP PRN IV 04/01/24 05:00 Acetaminophen 650 mg Q6HP PRN PO 04/01/24 05:00 04/05/24 02:09 650 MG Nitroglycerin 0.4 mg Q5MINP PRN SL 04/01/24 05:00 Albuterol 2.5 mg Q6HR NEB 04/01/24 06:00 04/14/24 06:28 2.5 MG Albumin Human 100 ml @ 100 mls/hr KIRAN PRN IV 04/03/24 07:00 Norepinephrine Bitartrate 32 mg/ Sodium Chloride 250 ml @ 0.469 mls/ hr Q24H IV 04/04/24 06:30 04/08/24 17:08 0.938 MLS/HR Enteral Nutritional Formula 1,000 ml 20ML/HR GT 04/09/24 11:15 04/12/24 10:35 1,000 ML Sodium Chloride 10 ml QSHIFT@,22 IV 04/09/24 22:00 04/14/24 09:21 10 ML Iron Sucrose 110 ml @ 110 mls/hr DAILY@1200 IV 04/10/24 12:00 04/13/24 12:28 110 MLS/HR Amiodarone HCl 200 mg Q12HR PO 04/10/24 22:00 UNV Amiodarone HCl 200 mg Q12HR PO 04/10/24 22:00 04/14/24 09:20 200 MG Phenylephrine HCl 80 mg/Sodium Chloride 250 ml @ 7.5 mls/hr Q24H IV 04/10/24 19:30 04/12/24 15:13 3.75 MLS/HR Fentanyl Citrate 250 ml @ 2.5 mls/hr Q24H IV 04/11/24 15:15 04/12/24 20:08 7.5 MLS/HR Linezolid 300 ml @ 150 mls/hr Q12HR IV 04/12/24 10:00 04/14/24 09:20 150 MLS/HR Purified Water 200 ml Q3HR GT 04/12/24 09:30 04/14/24 09:13 200 ML Furosemide 20 mg DAILY IV 04/12/24 09:30 04/14/24 09:21 20 MG Nystatin 1 applic BID TOP 04/12/24 22:00 04/14/24 09:15 1 APPLIC Levofloxacin 50 ml @ 50 mls/hr DAILY IV 04/13/24 10:00 04/14/24 09:20 50 MLS/HR Sodium Chloride 1,000 ml @ 50 mls/hr Q20H IV 04/12/24 16:45 04/14/24 09:40 50 MLS/HR Dexmedetomidine HCl 400 mcg/ Dextrose 100 ml @ 6.05 mls/hr [id number] IV 04/13/24 15:45 04/13/24 16:17 6.05 MLS/HR Enoxaparin Sodium 40 mg DAILY SC 04/14/24 10:00 04/14/24 09:20 40 MG Examination: LUNGS:Normal, CVS:Normal, MSK:Normal laboratory and microbiology Laboratory Tests 04/14/24 04:36 04/14/24 03:58 Test 04/14/24 04:36 Range/Units Serum Glucose 88 74-106 mg/dL Microbiology Date/Time Source Procedure Growth Status 04/09/24 13:10 Blood Blood Culture - Preliminary NO GROWTH AFTER 72 HOURS OF INCUBATION. Resulted 04/08/24 08:02 Thoracic Fluid Gram Stain - Final Complete 04/08/24 08:02 Thoracic Fluid Anaerobic Culture - Final Complete 04/08/24 08:02 Thoracic Fluid Aerobic Culture - Final Complete 04/07/24 07:44 Urine - [place] Urine Culture - Final Complete 04/01/24 11:19 Nose MRSA Screen - Final Complete 03/31/24 22:55 Sputum Endotracheal Wash Gram Stain - Final Complete 03/31/24 22:55 Sputum Endotracheal Wash Respiratory Culture - Final Complete Problem List/Assessment/Plan Problem List/Assessment/Plan Acute kidney injury due to ATN/hemodynamic from shock, status post intermittent hemodialysis Acute respiratory failure, intubated on ventilator NSTEMI septic shock empyema metabolic acidosis resolved b/l renal stones w/ hydronephrosis morbid obesity hyperkalemia, resolved Hypernatremia due to insensible water loss afib RVR Recommendations Kidney function is continuing to improve off hemodialysis Increased urine output DC Lasix drip IV pressors for blood pressure support Strict I&Os IV antibiotics free water down NG tube Urology consult We will continue to follow Plan discussed with: Other (Nurse) Dietary Evaluation Review Comments: 1) If GI is accessible consider Nepro 1.8 @ 30 ml/hr goal rate as tolerated with current rate of propofol on board. 2) If pt remains NPO >7 days consider TPN to meet at least 75% of estimated needs 3) If pt continues to receive HD, advance pt diet when medically feasible to a Renal Standard diet modified per [employer] recommendations 4) If HD is discontinued and GFR is within normal range, advance pt diet to a Regular diet, modified per [employer] recommendations 5)If HD is discontinued and GFR lies within STG 1-4, advance pt diet to a Renal Specific K2,lowphos,HECTOR,2gmNa,80gPro diet 6) If HD is discontinued and if GFR returns to normal levels then ALEXANDRA 1 pkt BID with meals may be considered to aid with wound healing 7) Continue current plan of care Expected Outcomes/Goals: 1) Pt to receive nutrition support within 7 days of NPO status 2) Pt labs to improve 3) Pt diet to advance 4) F/U in 2-3 days SWETA CHAND MD Apr 14, 2024 10:33
[2024-04-14] MEDS: FREE WATER GT SCH (14:00)
[2024-04-15] VITALS (109 sets, daily range): BP systolic 86–136; BP diastolic 43–74; PULSE 74–99; RESP 12–34; TEMP 97.6–99.3; O2SAT 93–100
[2024-04-15 04:28] LABS: Basophils # (auto) 0 10 ^3/uL (0-0.2); Basophils % (auto) 0.5 % (0.0-2.0); Eosinophils # (auto) 0.2 10 ^3/uL (0-0.8); Hematocrit 29.3 % (36.0-46.0); Hemoglobin 8.8 g/dL (12.2-16.2); Lymphocytes # (auto) 1.2 10 ^3/uL (0.4-5.4); Lymphocytes % (auto) 11.6 % (10.0-50.0); Mean Corpuscular Hemoglobin 26.8 pg (28.0-32.0); Mean Corpuscular Hgb Conc. 30.1 g/dL (32.0-36.0); Mean Corpuscular Volume 88.9 fL (80.0-100.0); Monocytes # (auto) 0.5 10 ^3/uL (0-1.3); Monocytes % (auto) 4.9 % (0.0-12.0); Neutrophils # (auto) 8.2 10 ^3/uL (1.6-8.6); Nucleated Red Blood Cells % 0.1 %; Platelet Count (auto) 160 10^3/uL (140-450); Red Blood Cells 3.29 10^6/uL (4.0-5.20); Red Cell Distribution Width 24.5 % (11.8-14.3); White Blood Cell 10.2 10^3/uL (4.4-10.8)
--- NOTE | 2024-04-15 04:33 | DVH ---
EXAM: XY CHEST PORTABLE Indication:INTUBATED Technique: Single frontal view of the chest was obtained Comparison: XY CHEST PORTABLE on DOS: 04/14/24, XY CHEST PORTABLE on DOS: 04/13/24, XY CHEST XRAY 1 V IEW on DOS: 04/12/24, XY CHEST XRAY 1 VIEW on DOS: 04/11/24, XY CHEST XRAY 1 VIEW on DOS: 04/10/24, X Y CHEST PORTABLE on DOS: 04/14/24 FINDINGS: Lines and Tubes: Endotracheal tube, enteric catheter and right PICC in satisfactory position. Right chest tube in satisfactory position. Lungs: Multifocal airspace disease. Pleura: Small right pleural effusion. No pneumothorax. Cardiomediastinal contours: Unchanged. Bones: Unremarkable IMPRESSION: Lines and tubes in satisfactory position. No significant interval change.
[2024-04-15 04:42] LABS: Alanine Aminotransferase 26 U/L (7-40); Albumin 3.2 g/dL (3.2-4.8); Alkaline Phosphatase 96 U/L (46-116); Anion Gap 9 (5-15); Aspartate Aminotransferase 42 U/L (13-40); BUN/Creatinine Ratio 24.7 (10.0-20.0); Bilirubin, Total 0.6 mg/dL (0.2-1.0); Calcium 8.3 mg/dL (8.7-10.4); Carbon Dioxide 24 mmol/L (20-31); Chloride 111 mmol/L (98-107); Glucose 92 mg/dL (74-106); Magnesium 2.4 mg/dL (1.6-2.6); Sodium 144 mmol/L (136-145)
[2024-04-15 04:43] LABS: Total Protein 6.2 g/dL (5.7-8.2)
[2024-04-15 04:57] LABS: Blood Urea Nitrogen 43 mg/dL (9-23)
--- NOTE | 2024-04-15 07:46 | DVHPN2 ---
Progress Note - Dictate Date Seen: Apr 15, 2024 Has the PT tested + for MRSA If YES, has PT been informed?: No Medical Necessity Reason Pt with a Central, PICC or Fol: Yes The following are medically ne: Central Line, Martines Catheter vital signs Vital Sign Date Time Temp Pulse Resp B/P (MAP) Pulse Ox O2 Delivery O2 Flow Rate FiO2 04/15/24 07:00 85 31 114/61 (78) 97 04/15/24 06:26 30 04/15/24 06:00 Mechanical Ventilator+ 04/14/24 20:30 98.7 98.7 Total Intake and Output 04/14/24 04/14/24 04/15/24 15:00 23:00 07:00 Intake Total 486.025 ml 740.725 ml 781.575 ml Output Total 426 ml 640 ml Balance 486.025 ml 314.725 ml 141.575 ml medications Current Medications Medications Dose Ordered Sig/Destini Route Start Time Stop Time Status Last Admin Dose Admin Heparin Sodium/ Dextrose 250 ml @ 18 mls/hr [id number] IV 03/31/24 23:45 UNV Midazolam HCl 50 ml @ 1 mls/hr Q24H IV 04/01/24 01:30 04/12/24 20:07 6 MLS/HR Ondansetron HCl 4 mg Q4HP PRN IV 04/01/24 05:00 Acetaminophen 650 mg Q6HP PRN PO 04/01/24 05:00 04/05/24 02:09 650 MG Nitroglycerin 0.4 mg Q5MINP PRN SL 04/01/24 05:00 Albuterol 2.5 mg Q6HR NEB 04/01/24 06:00 04/15/24 06:25 2.5 MG Albumin Human 100 ml @ 100 mls/hr KIRAN PRN IV 04/03/24 07:00 Norepinephrine Bitartrate 32 mg/ Sodium Chloride 250 ml @ 0.469 mls/ hr Q24H IV 04/04/24 06:30 04/08/24 17:08 0.938 MLS/HR Enteral Nutritional Formula 1,000 ml 20ML/HR GT 04/09/24 11:15 04/12/24 10:35 1,000 ML Sodium Chloride 10 ml QSHIFT@ IV 04/09/24 22:00 04/14/24 22:16 10 ML Iron Sucrose 110 ml @ 110 mls/hr DAILY@1200 IV 04/10/24 12:00 04/14/24 12:38 110 MLS/HR Amiodarone HCl 200 mg Q12HR PO 04/10/24 22:00 UNV Amiodarone HCl 200 mg Q12HR PO 04/10/24 22:00 04/14/24 22:16 200 MG Phenylephrine HCl 80 mg/Sodium Chloride 250 ml @ 7.5 mls/hr Q24H IV 04/10/24 19:30 04/12/24 15:13 3.75 MLS/HR Fentanyl Citrate 250 ml @ 2.5 mls/hr Q24H IV 04/11/24 15:15 04/12/24 20:08 7.5 MLS/HR Linezolid 300 ml @ 150 mls/hr Q12HR IV 04/12/24 10:00 04/14/24 22:16 150 MLS/HR Nystatin 1 applic BID TOP 04/12/24 22:00 04/14/24 22:17 1 APPLIC Levofloxacin 50 ml @ 50 mls/hr DAILY IV 04/13/24 10:00 04/14/24 09:20 50 MLS/HR Dexmedetomidine HCl 400 mcg/ Dextrose 100 ml @ 6.05 mls/hr [id number] IV 04/13/24 15:45 04/13/24 16:17 6.05 MLS/HR Enoxaparin Sodium 40 mg DAILY SC 04/14/24 10:00 04/14/24 09:20 40 MG Purified Water 200 ml Q4HR GT 04/14/24 14:00 04/15/24 05:16 200 ML laboratory and microbiology Laboratory Tests 04/15/24 03:50 Test 04/15/24 03:50 Range/Units Serum Glucose 92 74-106 mg/dL Assessment/Plan s/p thoracoscopy and chest tube placement Patient is a 68-year-old female who was transferred from [facility]. She originally presented to [facility] for shortness of breath ongoing for few days. She is intubated and is being managed in ICU. Information was obtained by reviewing the chart and communicating with staff. Reportedly, she presented with respiratory failure to [facility] (oxygen saturation was 88%) and over there was found to have white blood cell count of 26.6, hemoglobin of 11.1, creatinine of 5.6, potassium of 5.6 and troponin of 1.01. She was given 365 mg of aspirin in [facility]. She did have an episode of atrial fibrillation with RVR with questionable ST changes and was transferred to our facility for further care. She was also found to have right pleural effusion in [facility] and was diagnosed with non-STEMI. Intubated, on vent support. On pressure support. Obese. Mucosa is pale. Scattered rhonchi in the lungs is heard. Cardiac: Regular, no thrill/gallop. Abdomen is soft with increased bowel sounds. There is no gross mass. Extremities reveal 1+ edema bilaterally. Available past medical history includes obesity and questionable history of psoriasis. WBC: 25.3 - 23.7 - 20.2 - 20.5 - 17.6 - 18.4 - 19.2 - 19.4 - 22.2 - 16.4 - 16.1 - 19.5 - 14.7 - 12.3 - 9.8 - 10.0 - 8.3 - 9.2 - 10.2 Hemoglobin: 10.8 - 9.1 - 8.5 - 8.4 - 8.8 - 8.6 - 8.9 - 8.1 - 8.4 - 8.1 - 8.1 - 8.2 - 8.0 - 7.4 - 7.4 - 7.7 - 7.1 - 8.0 - 7.5 - 8.8 D-dimer: 3.62 Creatinine: 5.67 - 5.78 - 5.41 - 4.92 - 4.55 - 4.68 - 4.71 - 4.64 - 4.48 - 3.83 - 3.66 - 3.65 - 3.25 - 2.82 - 2.41 - 2.34 - 2.01 - 1.90 - 1.60 - 1.83 - 1.73 - 1.74 Potassium: 6.0 - 6.3 - 6.1 - 6.0 - 5.3 - 5.0 - 4.9 - 4.8 - 5.1 - 5.4 - 4.9 - 5.3 - 4.8 - 4.5 - 4.7 - 4.3 - 4.2 - 3.9 - 4.6 - 3.8 - 3.5 - 3.3 - 3.6 - 3.6 - 4.0 Lactic acid: 3.3 - 3.4 - 2.3 - 2.5 - 2.5 - 2.7 - 2.4 - 2.5 - 3.1 - 2.3 - 1.7 - 1.7 TSH: 1.71 BNP: 274.69 - 1944.81 - 373.79 Troponin (high sensitive): 1469 - 1515 - 1684 Blood culture: positive Pleural fluid culture: E-coli Digoxin level: 2.09 Stool OB: positive Chest x-ray revealed: IMPRESSION: 1. Moderate right pleural effusion. 2. Cardiomegaly with mild pulmonary vascular congestion bilaterally. Repeat chest x-ray revealed: IMPRESSION: 1. Endotracheal tube and gastric tubes in place as described. 2. Right IJ central venous catheter projects over the lower SVC. 3. Mild cardiomegaly and prominence of the pulmonary vasculature. 4. Moderate to large right pleural effusion. Repeat chest x-ray revealed: IMPRESSION: Similar lung aeration with large right pleural effusion. No pneumothorax seen. Stable lines and tubes. Repeat chest x-ray revealed: IMPRESSION: Similar lung aeration with large right pleural effusion. No pneumothorax seen. Stable lines and tubes. Repeat chest xry revealed: Lines and tubes: ET in the mid thoracic trachea. NG crosses midline. Right CVC is stable. Left HD catheter projects over the mediastinum. Cardiomediastinal silhouette: Enlarged Pulmonary vasculature: prominent Lung expansion: low Lung airspace: patchy bilateral airspace opacity. Lung interstitium: normal Pleura: Similar large right effusion. Pneumothorax: no Bones: Unremarkable Other: no IMPRESSION: Lines and tubes, as above. Similar lung aeration bilaterally with a right pleural effusion and patchy airspace opacities. Repeat chest xry revealed: IMPRESSION: 1. Stable position of the support lines and tubes. 2. Interstitial and alveolar opacities. Repeat chest xry revealed: IMPRESSION: Unchanged multifocal airspace disease. Small to moderate right pleural effusion ; possibly loculated. Repeat chest xry revealed: IMPRESSION: Lines and tubes in satisfactory position. No significant interval change. Repeat chest xry revealed: IMPRESSION: 1. Support lines and tubes in appropriate position. 2. Pulmonary vascular congestion. 3. Bilateral pleural effusions, right greater than left. Repeat chest xry revealed: IMPRESSION: 1. Support lines and tubes in appropriate position. 2. Pulmonary vascular congestion. 3. Bilateral pleural effusions, right greater than left. Repeat chest xry revealed: IMPRESSION: Interval placement of right chest tube which projects deep into the right hilar region. Repeat chest xry revealed: IMPRESSION: No interval change Repeat chest xry revealed: Findings/IMPRESSION: Right IJ CVC terminating in the SVC. Endotracheal tube projected 5 cm superior to the mili. Enteric tube projected below the GE junction. Right-sided PICC projects terminating near the cavoatrial junction. Small bilateral pleural effusions and/or atelectasis with superimposed infection not excluded. Repeat chest xry revealed: MPRESSION: 1. Bilateral pleural effusions and airspace disease right greater than left. Repeat chest xry revealed: IMPRESSION: 1. Endotracheal tube terminates 6.0 cm above the mili, previously 3.1 cm above the mili. Otherwise, No significant interval change. Repeat chest xry revealed: IMPRESSION: 1. Endotracheal tube terminates 6.0 cm above the mili, previously 3.1 cm above the mili. Otherwise, No significant interval change. Repeat chest xry revealed: IMPRESSION: Lines and tubes in satisfactory position. No significant interval change. Repeat chest xry revealed: IMPRESSION: Lines and tubes in satisfactory position. No significant interval change. Repeat chest xry revealed: IMPRESSION: Lines and tubes in satisfactory position. No significant interval change. Renal ultrasound revealed: IMPRESSION: 1. Right kidney measures 13.4 cm. Decreased cortical thickness on the right. 2. Left kidney measures 10.2 cm. 3. No hydronephrosis on the right grade 1 hydronephrosis on the left. 4. Bilateral renal calculi. CT scan of the chest/abdomen and pelvis revealed: IMPRESSION: 1. Moderate partially loculated right pleural effusion and consolidations in the right middle and lower lobes which could be pneumonia and/or atelectasis. 2. Mild cardiomegaly, mild interstitial pulmonary edema, and body wall edema. 3. There is a 1.9 cm calculus in the right UPJ with mild right hydronephrosis 4. There is a 2.6 cm somewhat staghorn appearing calculus in the left renal pelvis and UPJ causing mild predominantly mid to lower pole left hydronephrosis. Mild soft tissue stranding about the left renal pelvis which could be due to obstruction or superimposed infection. Correlate with urinalysis. 5. Partial duplication of the left renal collecting system without hydronephrosis in the upper pole. 6. Moderate right perinephric, right retroperitoneal, and bilateral extraperitoneal pelvis low-density fluid and very mild left retroperitoneal low-density fluid. This could be fluid related to bilateral renal obstructions and forniceal ruptures versus evolved retroperitoneal hematoma. This is suboptimally evaluated without intravenous contrast. 7. Fluid-filled small and large bowel loops which may be physiologic or related to enterocolitis and could be manifesting as loose stools and/or diarrhea. 8. Prominent endometrium measuring at least 2.8 cm, suboptimally evaluated by CT. Recommend characterization with nonemergent pelvic ultrasound if clinically indicated. 9. Mild hepatosplenomegaly. 10. Moderate three-vessel calcified coronary artery disease and mild aortic valve calcification. 11. Right IJ central venous catheter in place terminating in the low SVC. 12. Small soft tissue stranding in the right supraclavicular neck which could be blood products. 13. Endotracheal tube terminates above the mili. CT of the head revealed: IMPRESSION: 1. No acute intracranial abnormality. 2. Generalized cerebral volume loss and mild chronic microvascular ischemic change. 3. Partially imaged endotracheal tube. Chest ultrasound revealed: Findings/Impression: There is a trace bilateral pleural effusion. Thoracentesis: FINDINGS: Moderate size, complex and septated right pleural effusion. Aspirated fluid is thick and green in consistency. IMPRESSION: Right thoracentesis with 250 mL removed for laboratory analysis. EKG in [facility] revealed sinus tachycardia, poor R-wave progression old inferior wall NM. later EKG revealed atrial fibrillation with RVR. Telemetry reveals sinus rhythm, occasions of A-fib with RVR, SVT Echocardiogram revealed: Technically limited study secondary to poor acoustic windows. Left ventricle: Left ventricle was normal-sized. Mild concentric left ventricular hypertrophy was seen. LVEF was 55-60%. No gross wall motion abnormality was observed, but its presence can not be ruled out on the basis of this study. Right ventricle is mildly dilated with normal systolic function. Left atrium was mildly dilated. Right atrium was normal-sized. Aortic valve was trileaflet. There was no aortic insufficiency. There was aortic sclerosis with no stenosis. There was trivial mitral/tricuspid regurgitation. Pulmonary valve was not well visualized. Right ventricular systolic pressure was assessed around 48 mm Hg. There was no pericardial effusion. Patient is a 68-year-old morbidly obese patient who presented with respiratory failure to the hospital. Presentation is in favor of sepsis/septic shock. Multiorgan failure is observed. She is intubated and on vent support. She is on multiple pressor support. Life findings are in favor of acute renal failure. She also is known to have nephrolithiasis with history of staghorn calculi. Cardiac-ceballos, the patient did have episode of atrial fibrillation with RVR. She is found to have increased troponin. Presentation questions non-STEMI and possibly type 2 ischemia. Recognizing the presentation, ischemic workup should be postponed after clinical stability. Is being followed by Nephrology. Had episodes of tachyarrhythmia. Loaded with Digoxin. Positive cultures. Repeated a-fib with RVR. Septic shock Multiorgan failure Acute respiratory failure on vent support Acute renal failure Nephrolithiasis Staghorn calculi Hydronephrosis Abnormal troponin, non-STEMI Atrial fibrillation with RVR Paroxysmal AFib Acute heart failure, diastolic Hepatosplenomegaly Pleural effusion Status post thoracentesis Morbid obesity s/p Cardioversion for A-fib with RVR s/p thoracoscopy and chest tube placement Cardiac suggestion for management: Manage in ICU Follow-up electrolytes and kidney function tests and correct abnormalities Pressure support to keep mean arterial pressure above 65 Amiodarone oral/O mg BID Heparin drip Daily aspirin (81 mg daily) Loaded with Digoxin Off Lidocaine drip s/p thoracoscopy and chest tube placement IV metoprolol PRN for a-fib with RVR episodes. Sepsis workup and management as per primary team Cardiac ceballos, patient is elevated risk patient for urgent Thoracotomy procedure. You can consider proceeding with procedure under appropriate intra and post operative hemodynamic monitoring. If you choose to proceed with procedure, try to avoid hypotension. Evaluation and management of respiratory failure as per primary team/Pulmonary Evaluation and management of nephrolithiasis/hydronephrosis as per primary/Urology Evaluation and management of acute renal failure as per Nephrology Ischemic workup, after clinical stability (only if regained higher brain function) Further evaluation and management as per above and clinical course. A total of 75 minutes was spent reviewing the patient record, examining the patient, making a diagnostic and therapeutic plan, discussing this plan with medical personnel, following up on diagnostic studies and following the patient for clinical stability excluding any and all procedures. At least 50% of this time was spent in direct, [id number] contact. Thank you for allowing me to participate in this patient's care. Further recommendations will depend on patient's clinical course. Please do not hesitate to contact me if you have any questions or concerns. This medical document was created using electronic medical record system with [employer] computerized dictation system. Although this document has been carefully reviewed, there may still be some phonetic and typographical errors. These areas are purely typographical due to the imperfection of the software programs, and do not reflect any compromise in the patient's medical care. Dietary Evaluation Review Comments: 1) If GI is accessible consider Nepro 1.8 @ 30 ml/hr goal rate as tolerated with current rate of propofol on board. 2) If pt remains NPO >7 days consider TPN to meet at least 75% of estimated needs 3) If pt continues to receive HD, advance pt diet when medically feasible to a Renal Standard diet modified per [employer] recommendations 4) If HD is discontinued and GFR is within normal range, advance pt diet to a Regular diet, modified per [employer] recommendations 5)If HD is discontinued and GFR lies within STG 1-4, advance pt diet to a Renal Specific K2,lowphos,HECTOR,2gmNa,80gPro diet 6) If HD is discontinued and if GFR returns to normal levels then ALEXANDRA 1 pkt BID with meals may be considered to aid with wound healing 7) Continue current plan of care Expected Outcomes/Goals: 1) Pt to receive nutrition support within 7 days of NPO status 2) Pt labs to improve 3) Pt diet to advance 4) F/U in 2-3 days Plan discussed with: Other (nurse) HERMINIO JOHNSON MD Apr 15, 2024 07:46
[2024-04-15 07:50] LABS: Base Excess 2.1 mmol/L (-2.0-3.0)
--- NOTE | 2024-04-15 10:50 | DVHPN2 ---
Progress Note Date Seen: Apr 15, 2024 Has the PT tested + for MRSA If YES, has PT been informed?: No Medical Necessity Reason Pt with a Central, PICC or Fol: Yes The following are medically ne: Central Line, Martines Catheter Objective vital signs Vital Sign Date Time Temp Pulse Resp B/P (MAP) Pulse Ox O2 Delivery O2 Flow Rate FiO2 04/15/24 10:12 82 29 113/56 (75 96 30 04/15/24 06:00 Mechanical Ventilator+ 04/14/24 20:30 98.7 98.7 Total Intake and Output 04/14/24 04/14/24 04/15/24 15:00 23:00 07:00 Intake Total 486.025 ml 740.725 ml 781.575 ml Output Total 426 ml 640 ml Balance 486.025 ml 314.725 ml 141.575 ml medications Current Medications Medications Dose Ordered Sig/Destini Route Start Time Stop Time Status Last Admin Dose Admin Heparin Sodium/ Dextrose 250 ml @ 18 mls/hr [id number] IV 03/31/24 23:45 UNV Midazolam HCl 50 ml @ 1 mls/hr Q24H IV 04/01/24 01:30 04/12/24 20:07 6 MLS/HR Ondansetron HCl 4 mg Q4HP PRN IV 04/01/24 05:00 Acetaminophen 650 mg Q6HP PRN PO 04/01/24 05:00 04/05/24 02:09 650 MG Nitroglycerin 0.4 mg Q5MINP PRN SL 04/01/24 05:00 Albuterol 2.5 mg Q6HR NEB 04/01/24 06:00 04/15/24 06:25 2.5 MG Albumin Human 100 ml @ 100 mls/hr KIRAN PRN IV 04/03/24 07:00 Norepinephrine Bitartrate 32 mg/ Sodium Chloride 250 ml @ 0.469 mls/ hr Q24H IV 04/04/24 06:30 04/08/24 17:08 0.938 MLS/HR Enteral Nutritional Formula 1,000 ml 20ML/HR GT 04/09/24 11:15 04/12/24 10:35 1,000 ML Sodium Chloride 10 ml QSHIFT@ IV 04/09/24 22:00 04/15/24 10:00 10 ML Iron Sucrose 110 ml @ 110 mls/hr DAILY@1200 IV 04/10/24 12:00 04/14/24 12:38 110 MLS/HR Amiodarone HCl 200 mg Q12HR PO 04/10/24 22:00 UNV Amiodarone HCl 200 mg Q12HR PO 04/10/24 22:00 04/15/24 10:41 200 MG Phenylephrine HCl 80 mg/Sodium Chloride 250 ml @ 7.5 mls/hr Q24H IV 04/10/24 19:30 04/15/24 10:40 1.875 MLS/HR Fentanyl Citrate 250 ml @ 2.5 mls/hr Q24H IV 04/11/24 15:15 04/12/24 20:08 7.5 MLS/HR Linezolid 300 ml @ 150 mls/hr Q12HR IV 04/12/24 10:00 04/15/24 10:40 150 MLS/HR Nystatin 1 applic BID TOP 04/12/24 22:00 04/15/24 10:43 1 APPLIC Levofloxacin 50 ml @ 50 mls/hr DAILY IV 04/13/24 10:00 04/15/24 10:40 50 MLS/HR Dexmedetomidine HCl 400 mcg/ Dextrose 100 ml @ 6.05 mls/hr [id number] IV 04/13/24 15:45 04/13/24 16:17 6.05 MLS/HR Enoxaparin Sodium 40 mg DAILY SC 04/14/24 10:00 04/15/24 10:41 40 MG Purified Water 200 ml Q4HR GT 04/14/24 14:00 04/15/24 10:00 200 ML laboratory and microbiology Laboratory Tests 04/15/24 03:50 Test 04/15/24 03:50 Range/Units Serum Glucose 92 74-106 mg/dL Problem List/Assessment/Plan Problem List/Assessment/Plan 04/04/24I was just notified by anesthesiologists that they were evaluating the patient in the ICU and that she just became hemodynamically unstable and is being dialysed, the plan is to cardiovert her later this PM, I will cancel operation for today, it is also very likely that her sepsis is not due t othe pleural effusion but rather the hydronephrosis and superimposed urinary infection. 04/07/24 according to patient is now stable enough to undergo evacuation of empyema left chest, fluid grew enteric organisms, will attempt thoracoscopy but most likely will need a thoracotomy tomorrow AM.; I had previously explained the procedure and its attendant possible complications to pt's daughter 04/10/24 POST STABLE,CHEST X RAY REVIEWED, CHEST TUBE WITH MINIMAL TO MODERATE PURULENT OUTPUT, NO AIR LEAK, CONTINUE IS 04/11/24 essentially unchanged , chest tube with serosanguineous drainage, still needing BP support, good urine output 04/15/24 off sedation on ventilator, chest tube without air leak, lungs fully expanded, small persistent effusion on right. still needs BP support, WBC normal, h/h stable. Plan discussed with: Other Dietary Evaluation Review Comments: 1) If GI is accessible consider Nepro 1.8 @ 30 ml/hr goal rate as tolerated with current rate of propofol on board. 2) If pt remains NPO >7 days consider TPN to meet at least 75% of estimated needs 3) If pt continues to receive HD, advance pt diet when medically feasible to a Renal Standard diet modified per [employer]TENA[employer]MENT MANAGER recommendations 4) If HD is discontinued and GFR is within normal range, advance pt diet to a Regular diet, modified per MAINTENANCE DEPARTMENT MANAGER recommendations 5)If HD is discontinued and GFR lies within STG 1-4, advance pt diet to a Renal Specific K2,lowphos,HECTOR,2gmNa,80gPro diet 6) If HD is discontinued and if GFR returns to normal levels then ALEXANDRA 1 pkt BID with meals may be considered to aid with wound healing 7) Continue current plan of care Expected Outcomes/Goals: 1) Pt to receive nutrition support within 7 days of NPO status 2) Pt labs to improve 3) Pt diet to advance 4) F/U in 2-3 days SANTY HAZEL MD Apr 15, 2024 10:50
--- NOTE | 2024-04-15 14:10 | DVHPNRES ---
Progress Note Date Seen: Apr 15, 2024 Resident Creating Document: KEVON BLANTON RESIDENT Has the PT tested + for MRSA If YES, has PT been informed?: No Medical Necessity Reason Pt with a Central, PICC or Fol: Yes The following are medically ne: Central Line, Martines Catheter Subjective Review of Systems This is a 68-year-old female with unknown past medical history who was transferred from another facility ([facility]) for higher level of care. The patient initially was treated at that facility for shortness of breaths and back pain. The patient was transferred to our facility for higher level of care. The patient on arrival to the ED was tachypneic with severe respiratory failure, tachycardic rhythm consistent with atrial fibrillation and was saturating in the 70s. Initially placed on non-rebreather mask and then emergently intubated to protect airway. The patient was started on amiodarone drip 1 milligram/minute, phenylephrine, vasopressin and levophed. Patient initially was started on broad-spectrum antibiotics with vancomycin and Zosyn but for renal protection, since GFR was less than 10 and to have a more broad- spectrum coverage we added meropenem and discontinued Zosyn. To the ICU for further assessment and management. Patient seen and examined at bedside. This morning we were trying to do a weaning trial by titrating off sedation but keep patient got tachypneic over the ventilator without fully following commands. Patient was placed back on fentanyl and Precedex. Currently on mechanical ventilator on the following parameters: VT 500, RR 18, FiO2 30%, peep five, saturation 96%. Right-sided chest tube is draining approximately 40 cc of serosanguineous fluids in the last 24 hours. Chest x-ray was reviewed this morning and still showing right lower lobe opacities. We will continue the patient on levofloxacin and linezolid. Patient might be a candidate for tracheostomy tube placement. We will order kidney ultrasound. ROS unable to obtain due to patient's current status intubation. Objective vital signs Vital Sign Date Time Temp Pulse Resp B/P (MAP) Pulse Ox O2 Delivery O2 Flow Rate FiO2 04/15/24 12:00 27 96 Mechanical Ventilator+ 30 30 04/15/24 12:00 77 04/15/24 12:00 97.6 108/55 (72) 97.6 Total Intake and Output 04/14/24 04/14/24 04/15/24 15:00 23:00 07:00 Intake Total 486.025 ml 740.725 ml 781.575 ml Output Total 426 ml 640 ml Balance 486.025 ml 314.725 ml 141.575 ml medications Current Medications Medications Dose Ordered Sig/Destini Route Start Time Stop Time Status Last Admin Dose Admin Heparin Sodium/ Dextrose 250 ml @ 18 mls/hr [id number] IV 03/31/24 23:45 UNV Midazolam HCl 50 ml @ 1 mls/hr Q24H IV 04/01/24 01:30 04/12/24 20:07 6 MLS/HR Ondansetron HCl 4 mg Q4HP PRN IV 04/01/24 05:00 Acetaminophen 650 mg Q6HP PRN PO 04/01/24 05:00 04/05/24 02:09 650 MG Nitroglycerin 0.4 mg Q5MINP PRN SL 04/01/24 05:00 Albuterol 2.5 mg Q6HR NEB 04/01/24 06:00 04/15/24 11:40 2.5 MG Albumin Human 100 ml @ 100 mls/hr KIRAN PRN IV 04/03/24 07:00 Norepinephrine Bitartrate 32 mg/ Sodium Chloride 250 ml @ 0.469 mls/ hr Q24H IV 04/04/24 06:30 04/08/24 17:08 0.938 MLS/HR Enteral Nutritional Formula 1,000 ml 20ML/HR GT 04/09/24 11:15 04/12/24 10:35 1,000 ML Sodium Chloride 10 ml QSHIFT@,22 IV 04/09/24 22:00 04/15/24 10:00 10 ML Iron Sucrose 110 ml @ 110 mls/hr DAILY@1200 IV 04/10/24 12:00 04/14/24 12:38 110 MLS/HR Amiodarone HCl 200 mg Q12HR PO 04/10/24 22:00 UNV Amiodarone HCl 200 mg Q12HR PO 04/10/24 22:00 04/15/24 10:41 200 MG Phenylephrine HCl 80 mg/Sodium Chloride 250 ml @ 7.5 mls/hr Q24H IV 04/10/24 19:30 04/15/24 10:40 1.875 MLS/HR Fentanyl Citrate 250 ml @ 2.5 mls/hr Q24H IV 04/11/24 15:15 04/15/24 11:35 2.5 MLS/HR Linezolid 300 ml @ 150 mls/hr Q12HR IV 04/12/24 10:00 04/15/24 10:40 150 MLS/HR Nystatin 1 applic BID TOP 04/12/24 22:00 04/15/24 10:43 1 APPLIC Levofloxacin 50 ml @ 50 mls/hr DAILY IV 04/13/24 10:00 04/15/24 10:40 50 MLS/HR Dexmedetomidine HCl 400 mcg/ Dextrose 100 ml @ 6.05 mls/hr [id number] IV 04/13/24 15:45 04/15/24 11:06 21.175 MLS/HR Enoxaparin Sodium 40 mg DAILY SC 04/14/24 10:00 04/15/24 10:41 40 MG Purified Water 200 ml Q4HR GT 04/14/24 14:00 04/15/24 10:00 200 ML Examination Physical Examination General: Patient sedated on fentanyl and Precedex on mechanical ventilator: VT 500, RR 18, FiO2 30%, PEEP 5, sat 96% HEENT: Normocephalic, atraumatic, moist mucous membranes Respiratory/pulmonary: There are decreased breath sounds on right lung base. There is a right sided 40 sized chest tube draining aprox 40cc of serosanguineous fluid into the Pleur-evac in the last 24 hrs. Cardiovascular: Heart sounds currently regular and rhythmic with occasional PACs . No murmurs at this time. Abdomen: Abdomen slightly distended, there is no pain to palpation in any of the abdominal quadrants, no palpable masses. Extremities: There is minimal 1+ pitting edema in the lower extremities bilaterally. Peripheral Pulses: 3+ Radial (R). 3+ Radial (L). 3+ Dorsalis pedis (R). 3+ Dorsalis pedis(L) Skin: There is dry skin in bilateral lower extremities with scales and excoriations. Neurological: Sedated, RASS -2 laboratory and microbiology Laboratory Tests 04/15/24 03:50 Test 04/15/24 03:50 Range/Units Serum Glucose 92 74-106 mg/dL Microbiology Date/Time Source Procedure Growth Status 04/09/24 13:10 Blood Blood Culture - Final NO GROWTH AFTER 5 DAYS OF INCUBATION. Complete 04/08/24 08:02 Thoracic Fluid Gram Stain - Final Complete 04/08/24 08:02 Thoracic Fluid Anaerobic Culture - Final Complete 04/08/24 08:02 Thoracic Fluid Aerobic Culture - Final Complete 04/07/24 07:44 Urine - [place] Urine Culture - Final Complete 04/01/24 11:19 Nose MRSA Screen - Final Complete 03/31/24 22:55 Sputum Endotracheal Wash Gram Stain - Final Complete 03/31/24 22:55 Sputum Endotracheal Wash Respiratory Culture - Final Complete Problem List/Assessment/Plan Problem List/Assessment/Plan Assessment/Plan Neurology Sedation -currently on midazolam and fentanyl Vasopressors -currently on phenylephrine Respiratory Acute hypoxic respirtory failure likel due to right-sided pleural effusion and consolidation on right middle and lower lobes -initial chest x-ray showed severe right lower lobe opacities consistent with either consolidation or moderate to severe pleural effusion -CT of the chest and abdomen showed moderate partial loculated right pleural effusion and consolidation on right middle/lower lobes. Mild cardiomegaly and interstitial pulmonary edema. It also showed right hydronephrosis with 1.9 cm calculus into the right UPJ. There is also a 2.6 cm staghorn appearing calculus causing mid to lower pole left hydronephrosis. -the patient was initially started on Zosyn, vancomycin and cefepime. We discontinued Zosyn and cefepime. -we will switch linezolid back to vancomycin due to low platelet. -Continue IV vanco and meropenem -consulted interventional radiologist which performed right-sided thoracentesis removing 250 mL of fluid which were sent to analysis. -currently on mechanical ventilator on the following parameters: VT 500, RR 22, FiO2 40%, PEEP 6, saturating 94%. -Surgical thoracoscopy was performed on 04/08/2024 with evacuation of empyema and insertion of a chest tube draining approximately 200 cc of purulent material. -Right chest tube is draining aprox 20cc in the last 24 hrs. -ABG showing a pH of 7.58, pCO2 25.9, HC03 of 23.8 with a PaO2 of 107.9. Consistent with a respiratory alkalosis likely due to breathing over the vent while coming out of sedation -Will try CPAP trial tomorrow AM -Discussed with daughter alannah regarding possible tracheostomy which stated that if needed they will sign the consent. -Stop IV fluids and lasix Sepsis in the setting of loculated right-sided pleural effusion (EMPYEMA) and pneumonia -ordered blood cultures, sputum cultures and urine culture -currently on levaquin, dc zyvox -Will monitor plateletes closely -S/P right-sided thoracentesis removing 250 mL of fluids. -chest x-ray this morning showed still right-sided opacities and left opacities in the base of the lung. -Surgical thoracoscopy was performed on 04/08/2024 with evacuation of empyema and insertion of a chest tube draining approximately 200 cc of purulent material. -Right chest tube is draining aprox 40cc in the last 24 hrs. Cardiology Acute on chronic systolic/diastolic heart failure -BNP came back elevated at 274.69 -initial EKG showed sinus tachycardia with PACs but no ST segment elevation or depression at that time -troponins came back elevated at 1469 and peaked up to 1684 -echocardiogram is showing an LVEF of 55-60% with increased RVSP at 48 mmHg and no pericardial effusion -Stop IV fluids and lasix NSTEMI type II ? -troponins came back elevated at 1469 and peaked up to 1684 -Trend trops Atrial fibrilation with RVR -CHADS VASC score HAS BLED score -heparin drip was hold for right-sided chest tube placement and david catheter placement -patient underwent atrial flutter with a heart rate of 180 to 200, cardiology decided to perform synchronized cardioversion and continue amiodarone drip. -S/P multiple synchronized cardioversions x6 -Continue amiodarone 200mg PO BID -patient was given two doses of digoxin but due to high levels of digoxin blood 3rd dose was held Nephrology Bilateral hydronephrosis -CT scan of the chest and abdomen showed right hydronephrosis with 1.9 cm calculus into the right UPJ, there was also a 2.6 cm staghorn appearing calculus causing mid to lower pole left hydronephrosis. -nephrology on board -consulted Urology for bilateral nephrostomy tube placement -David catheter placed on L IJ on 04/08/24 REMOVED -Ordered bilateral kidney ultrasound CHRISTOPH likely postobstructive nephropathy -most likely secondary to bilateral renal calculi -creatinine was 1.73 and BUN 57. Kidney function slightly improving -Holding HD at this time since Cr is slightly improving -nephrology and urology on board -consulted Urology for bilateral nephrostomy tube placement, if therapy does not improve patient might need hemodialysis as last resource Nutrition -Continue EN Nepro at 30cc/hr Hyperkalemia -potassium was 3.6 -monitor closely DVT prophylaxys -Hb is at 7.5 but has been stable at this time -Continue on Enoxaparin 40mg sc QD. Lines: IJ right triple-lumen placed on 03/31/2024 (will remove Central line and place a PICC line) Peripheral in right wrist placed on 03/31/2024 Peripheral in left forearm placed on 03/31/2024 David catheter placed in the left IJ placed on 04/02/2024 (REMOVED) Goals of care discussed with medical team for >23min Critical time spent > 61min Plan discussed with Dr. Jones Plan discussed with: Other My Orders My Orders Orders - KEVON BLANTON Procedure Category Date Status Time Chest Portable XY 04/15/24 Resulted 04:00 Dietary Evaluation Review Comments: 1) If GI is accessible consider Nepro 1.8 @ 30 ml/hr goal rate as tolerated with current rate of propofol on board. 2) If pt remains NPO >7 days consider TPN to meet at least 75% of estimated needs 3) If pt continues to receive HD, advance pt diet when medically feasible to a Renal Standard diet modified per REFINERY OPERATOR VISBREAKING recommendations 4) If HD is discontinued and GFR is within normal range, advance pt diet to a Regular diet, modified per REFINERY OPERATOR VISBREAKING recommendations 5)If HD is discontinued and GFR lies within STG 1-4, advance pt diet to a Renal Specific K2,lowphos,HECTOR,2gmNa,80gPro diet 6) If HD is discontinued and if GFR returns to normal levels then ALEXANDRA 1 pkt BID with meals may be considered to aid with wound healing 7) Continue current plan of care Expected Outcomes/Goals: 1) Pt to receive nutrition support within 7 days of NPO status 2) Pt labs to improve 3) Pt diet to advance 4) F/U in 2-3 days Date of Service: Apr 15, 2024 Billing Provider: LAURIE JONES MD Common Visit Codes: [id number] CARE 30-74 MIN KEVON BLANTON RESIDENT Apr 15, 2024 14:09 LAURIE JONES MD Apr 16, 2024 11:00
--- NOTE | 2024-04-15 14:45 | DVHPN2 ---
Progress Note Date Seen: Apr 15, 2024 Has the PT tested + for MRSA If YES, has PT been informed?: No Medical Necessity Reason Pt with a Central, PICC or Fol: Yes The following are medically ne: Central Line, Martines Catheter Subjective Review of Systems: RESPIRATORY:Abnormal Other Systems: Patient seen and examined by myself today in follow-up Patient remained intubated on ventilator Objective vital signs Vital Sign Date Time Temp Pulse Resp B/P (MAP) Pulse Ox O2 Delivery O2 Flow Rate FiO2 04/15/24 14:30 79 25 132/74 (93) 100 04/15/24 14:24 30 04/15/24 14:00 Mechanical Ventilator+ 04/15/24 12:00 97.6 97.6 Total Intake and Output 04/14/24 04/14/24 04/15/24 15:00 23:00 07:00 Intake Total 486.025 ml 740.725 ml 781.575 ml Output Total 426 ml 640 ml Balance 486.025 ml 314.725 ml 141.575 ml medications Current Medications Medications Dose Ordered Sig/Destini Route Start Time Stop Time Status Last Admin Dose Admin Heparin Sodium/ Dextrose 250 ml @ 18 mls/hr [id number] IV 03/31/24 23:45 UNV Midazolam HCl 50 ml @ 1 mls/hr Q24H IV 04/01/24 01:30 04/12/24 20:07 6 MLS/HR Ondansetron HCl 4 mg Q4HP PRN IV 04/01/24 05:00 Acetaminophen 650 mg Q6HP PRN PO 04/01/24 05:00 04/05/24 02:09 650 MG Nitroglycerin 0.4 mg Q5MINP PRN SL 04/01/24 05:00 Albuterol 2.5 mg Q6HR NEB 04/01/24 06:00 04/15/24 11:40 2.5 MG Albumin Human 100 ml @ 100 mls/hr KIRAN PRN IV 04/03/24 07:00 Norepinephrine Bitartrate 32 mg/ Sodium Chloride 250 ml @ 0.469 mls/ hr Q24H IV 04/04/24 06:30 04/08/24 17:08 0.938 MLS/HR Enteral Nutritional Formula 1,000 ml 20ML/HR GT 04/09/24 11:15 04/12/24 10:35 1,000 ML Sodium Chloride 10 ml QSHIFT@10,22 IV 04/09/24 22:00 04/15/24 10:00 10 ML Iron Sucrose 110 ml @ 110 mls/hr DAILY@1200 IV 04/10/24 12:00 04/15/24 14:27 110 MLS/HR Amiodarone HCl 200 mg Q12HR PO 04/10/24 22:00 UNV Amiodarone HCl 200 mg Q12HR PO 04/10/24 22:00 04/15/24 10:41 200 MG Phenylephrine HCl 80 mg/Sodium Chloride 250 ml @ 7.5 mls/hr Q24H IV 04/10/24 19:30 04/15/24 10:40 1.875 MLS/HR Fentanyl Citrate 250 ml @ 2.5 mls/hr Q24H IV 04/11/24 15:15 04/15/24 11:35 2.5 MLS/HR Linezolid 300 ml @ 150 mls/hr Q12HR IV 04/12/24 10:00 04/15/24 10:40 150 MLS/HR Nystatin 1 applic BID TOP 04/12/24 22:00 04/15/24 10:43 1 APPLIC Levofloxacin 50 ml @ 50 mls/hr DAILY IV 04/13/24 10:00 04/15/24 10:40 50 MLS/HR Dexmedetomidine HCl 400 mcg/ Dextrose 100 ml @ 6.05 mls/hr [id number] IV 04/13/24 15:45 04/15/24 11:06 21.175 MLS/HR Enoxaparin Sodium 40 mg DAILY SC 04/14/24 10:00 04/15/24 10:41 40 MG Purified Water 200 ml Q4HR GT 04/14/24 14:00 04/15/24 14:29 200 ML Bumetanide 1 mg DAILY IV 04/16/24 10:00 UNV Examination: LUNGS:Normal, CVS:Normal, MSK:Abnormal laboratory and microbiology Laboratory Tests 04/15/24 03:50 Test 04/15/24 03:50 Range/Units Serum Glucose 92 74-106 mg/dL Microbiology Date/Time Source Procedure Growth Status 04/09/24 13:10 Blood Blood Culture - Final NO GROWTH AFTER 5 DAYS OF INCUBATION. Complete 04/08/24 08:02 Thoracic Fluid Gram Stain - Final Complete 04/08/24 08:02 Thoracic Fluid Anaerobic Culture - Final Complete 04/08/24 08:02 Thoracic Fluid Aerobic Culture - Final Complete 04/07/24 07:44 Urine - [place] Urine Culture - Final Complete 04/01/24 11:19 Nose MRSA Screen - Final Complete 03/31/24 22:55 Sputum Endotracheal Wash Gram Stain - Final Complete 03/31/24 22:55 Sputum Endotracheal Wash Respiratory Culture - Final Complete Problem List/Assessment/Plan Problem List/Assessment/Plan Acute kidney injury due to ATN/hemodynamic from shock, status post intermittent hemodialysis Acute respiratory failure, intubated on ventilator NSTEMI septic shock empyema metabolic acidosis resolved b/l renal stones w/ hydronephrosis morbid obesity hyperkalemia, resolved Hypernatremia due to insensible water loss afib RVR Recommendations Kidney function is continuing to improve off hemodialysis Increased urine output Bumex 1 mg IV push q.day IV pressors for blood pressure support Strict I&Os IV antibiotics free water down NG tube Urology consult We will continue to follow Plan discussed with: Other (Nurse) My Orders My Orders Orders - SWETA CHAND MD Procedure Category Date Status Time Bumetanide Injection PHA 04/15/24 Logged (Bumex Injection) 14:45 Bumetanide Injection PHA 04/16/24 Logged (Bumex Injection) 10:00 Dietary Evaluation Review Comments: 1) If GI is accessible consider Nepro 1.8 @ 30 ml/hr goal rate as tolerated with current rate of propofol on board. 2) If pt remains NPO >7 days consider TPN to meet at least 75% of estimated needs 3) If pt continues to receive HD, advance pt diet when medically feasible to a Renal Standard diet modified per COMBINATION WELDER APPRENTICE recommendations 4) If HD is discontinued and GFR is within normal range, advance pt diet to a Regular diet, modified per COMBINATION WELDER APPRENTICE recommendations 5)If HD is discontinued and GFR lies within STG 1-4, advance pt diet to a Renal Specific K2,lowphos,HECTOR,2gmNa,80gPro diet 6) If HD is discontinued and if GFR returns to normal levels then ALEXANDRA 1 pkt BID with meals may be considered to aid with wound healing 7) Continue current plan of care Expected Outcomes/Goals: 1) Pt to receive nutrition support within 7 days of NPO status 2) Pt labs to improve 3) Pt diet to advance 4) F/U in 2-3 days SWETA CHAND MD Apr 15, 2024 14:45
[2024-04-15] MEDS: BUMETANIDE 1mg/4ml VIAL (0.25mg/ml) IV ONE (16:46)
[2024-04-16] VITALS (93 sets, daily range): BP systolic 88–138; BP diastolic 46–85; PULSE 11–111; RESP 13–39; TEMP 98–98.6; O2SAT 86–100
[2024-04-16 04:12] LABS: Basophils # (auto) 0.1 10 ^3/uL (0-0.2); Eosinophils # (auto) 0.3 10 ^3/uL (0-0.8); Hemoglobin 7.1 g/dL (12.2-16.2); Lymphocytes # (auto) 1.2 10 ^3/uL (0.4-5.4); Monocytes # (auto) 0.5 10 ^3/uL (0-1.3); Nucleated Red Blood Cells % 0.1 %
[2024-04-16 04:15] LABS: Basophils % (auto) 0.6 % (0.0-2.0); Eosinophils % (auto) 2.6 % (0.0-7.0); Lymphocytes % (auto) 10.8 % (10.0-50.0); Mean Corpuscular Hemoglobin 26.6 pg (28.0-32.0); Monocytes % (auto) 4.8 % (0.0-12.0); Neutrophils # (auto) 9.3 10 ^3/uL (1.6-8.6); Neutrophils % (auto) 81.2 % (37.0-80.0); Platelet Count (auto) 173 10^3/uL (140-450); Red Blood Cells 2.67 10^6/uL (4.0-5.20); White Blood Cell 11.4 10^3/uL (4.4-10.8)
[2024-04-16 04:21] LABS: Red Cell Distribution Width 25.1 % (11.8-14.3)
[2024-04-16 04:32] LABS: Alanine Aminotransferase 23 U/L (7-40); Albumin 2.9 g/dL (3.2-4.8); Alkaline Phosphatase 81 U/L (46-116); Anion Gap 12 (5-15); Aspartate Aminotransferase 38 U/L (13-40); BUN/Creatinine Ratio 27.3 (10.0-20.0); Blood Urea Nitrogen 48 mg/dL (9-23); Calcium 8.2 mg/dL (8.7-10.4); Carbon Dioxide 24 mmol/L (20-31); Chloride 111 mmol/L (98-107); Glucose 100 mg/dL (74-106); Magnesium 2.2 mg/dL (1.6-2.6); Potassium 3.5 mmol/L (3.5-5.1); Sodium 147 mmol/L (136-145)
[2024-04-16 04:33] LABS: Bilirubin, Total 0.5 mg/dL (0.2-1.0); Total Protein 5.5 g/dL (5.7-8.2)
[2024-04-16 04:58] LABS: Anisocytosis Slight; Platelet Estimate Adequate
[2024-04-16 04:59] LABS: Stomatocytes Moderate
--- NOTE | 2024-04-16 05:21 | DVH ---
CHEST RADIOGRAPH Indication:reevaluate right lung bases Technique: Single frontal view of the chest was obtained COMPARISON: XY CHEST PORTABLE on DOS: 04/15/24, XY CHEST PORTABLE on DOS: 04/14/24, XY CHEST PORTABLE on DOS: 04/13/24, XY CHEST PORTABLE on DOS: 04/15/24 FINDINGS: Lines and Tubes: Endotracheal tube, enteric catheter and right PICC in satisfactory position. Right chest tube in satisfactory position. Lungs: Multifocal airspace disease. Pleura: Small right pleural effusion. No pneumothorax. Cardiomediastinal contours: Unchanged. Bones: Unremarkable IMPRESSION: Lines and tubes in satisfactory position. No significant interval change.
[2024-04-16] MEDS: POTASSIUM CHL 20MEQ/100ML 100 ML IV ONE (06:29)
[2024-04-16 07:07] LABS: Base Excess 1.2 mmol/L (-2.0-3.0)
--- NOTE | 2024-04-16 08:43 | DVHPN2 ---
Progress Note - Dictate Date Seen: Apr 16, 2024 Has the PT tested + for MRSA If YES, has PT been informed?: No Medical Necessity Reason Pt with a Central, PICC or Fol: Yes The following are medically ne: Central Line, Martines Catheter vital signs Vital Sign Date Time Temp Pulse Resp B/P (MAP) Pulse Ox O2 Delivery O2 Flow Rate FiO2 04/16/24 08:28 88 23 96/54 (68) 98 30 04/16/24 08:00 Mechanical Ventilator+ 04/16/24 04:00 98.1 98.1 Total Intake and Output 04/15/24 04/15/24 04/16/24 15:00 23:00 07:00 Intake Total 248.325 ml 323.875 ml 447.500 ml Output Total 825 ml 860 ml Balance 248.325 ml -501.125 ml -412.500 ml medications Current Medications Medications Dose Ordered Sig/Destini Route Start Time Stop Time Status Last Admin Dose Admin Heparin Sodium/ Dextrose 250 ml @ 18 mls/hr [id number] IV 03/31/24 23:45 UNV Midazolam HCl 50 ml @ 1 mls/hr Q24H IV 04/01/24 01:30 04/12/24 20:07 6 MLS/HR Ondansetron HCl 4 mg Q4HP PRN IV 04/01/24 05:00 Acetaminophen 650 mg Q6HP PRN PO 04/01/24 05:00 04/15/24 17:07 650 MG Nitroglycerin 0.4 mg Q5MINP PRN SL 04/01/24 05:00 Albuterol 2.5 mg Q6HR NEB 04/01/24 06:00 04/16/24 06:14 2.5 MG Albumin Human 100 ml @ 100 mls/hr KIRAN PRN IV 04/03/24 07:00 Norepinephrine Bitartrate 32 mg/ Sodium Chloride 250 ml @ 0.469 mls/ hr Q24H IV 04/04/24 06:30 04/08/24 17:08 0.938 MLS/HR Enteral Nutritional Formula 1,000 ml 20ML/HR GT 04/09/24 11:15 04/12/24 10:35 1,000 ML Sodium Chloride 10 ml QSHIFT@ IV 04/09/24 22:00 04/15/24 22:13 10 ML Iron Sucrose 110 ml @ 110 mls/hr DAILY@1200 IV 04/10/24 12:00 04/15/24 14:27 110 MLS/HR Amiodarone HCl 200 mg Q12HR PO 04/10/24 22:00 UNV Amiodarone HCl 200 mg Q12HR PO 04/10/24 22:00 04/15/24 22:13 200 MG Phenylephrine HCl 80 mg/Sodium Chloride 250 ml @ 7.5 mls/hr Q24H IV 04/10/24 19:30 04/15/24 10:40 1.875 MLS/HR Fentanyl Citrate 250 ml @ 2.5 mls/hr Q24H IV 04/11/24 15:15 04/16/24 04:36 30 MLS/HR Nystatin 1 applic BID TOP 04/12/24 22:00 04/15/24 22:15 1 APPLIC Levofloxacin 50 ml @ 50 mls/hr DAILY IV 04/13/24 10:00 04/15/24 10:40 50 MLS/HR Dexmedetomidine HCl 400 mcg/ Dextrose 100 ml @ 6.05 mls/hr [id number] IV 04/13/24 15:45 04/15/24 11:06 21.175 MLS/HR Enoxaparin Sodium 40 mg DAILY SC 04/14/24 10:00 04/15/24 10:41 40 MG Purified Water 200 ml Q4HR GT 04/14/24 14:00 04/16/24 05:30 200 ML Bumetanide 1 mg DAILY IV 04/16/24 10:00 laboratory and microbiology Laboratory Tests 04/16/24 03:39 Test 04/16/24 03:39 Range/Units Serum Glucose 100 74-106 mg/dL Assessment/Plan s/p thoracoscopy and chest tube placement Patient is a 68-year-old female who was transferred from [facility]. She originally presented to [facility] for shortness of breath ongoing for few days. She is intubated and is being managed in ICU. Information was obtained by reviewing the chart and communicating with staff. Reportedly, she presented with respiratory failure to [facility] (oxygen saturation was 88%) and over there was found to have white blood cell count of 26.6, hemoglobin of 11.1, creatinine of 5.6, potassium of 5.6 and troponin of 1.01. She was given 365 mg of aspirin in [facility]. She did have an episode of atrial fibrillation with RVR with questionable ST changes and was transferred to our facility for further care. She was also found to have right pleural effusion in [facility] and was diagnosed with non-STEMI. Intubated, on vent support. On pressure support. Obese. Mucosa is pale. Scattered rhonchi in the lungs is heard. Cardiac: Regular, no thrill/gallop. Abdomen is soft with increased bowel sounds. There is no gross mass. Extremities reveal 1+ edema bilaterally. Available past medical history includes obesity and questionable history of psoriasis. WBC: 25.3 - 23.7 - 20.2 - 20.5 - 17.6 - 18.4 - 19.2 - 19.4 - 22.2 - 16.4 - 16.1 - 19.5 - 14.7 - 12.3 - 9.8 - 10.0 - 8.3 - 9.2 - 10.2 - 11.4 Hemoglobin: 10.8 - 9.1 - 8.5 - 8.4 - 8.8 - 8.6 - 8.9 - 8.1 - 8.4 - 8.1 - 8.1 - 8.2 - 8.0 - 7.4 - 7.4 - 7.7 - 7.1 - 8.0 - 7.5 - 8.8 - 7.1 D-dimer: 3.62 Creatinine: 5.67 - 5.78 - 5.41 - 4.92 - 4.55 - 4.68 - 4.71 - 4.64 - 4.48 - 3.83 - 3.66 - 3.65 - 3.25 - 2.82 - 2.41 - 2.34 - 2.01 - 1.90 - 1.60 - 1.83 - 1.73 - 1.74 - 1.76 Potassium: 6.0 - 6.3 - 6.1 - 6.0 - 5.3 - 5.0 - 4.9 - 4.8 - 5.1 - 5.4 - 4.9 - 5.3 - 4.8 - 4.5 - 4.7 - 4.3 - 4.2 - 3.9 - 4.6 - 3.8 - 3.5 - 3.3 - 3.6 - 3.6 - 4.0 - 3.5 Lactic acid: 3.3 - 3.4 - 2.3 - 2.5 - 2.5 - 2.7 - 2.4 - 2.5 - 3.1 - 2.3 - 1.7 - 1.7 TSH: 1.71 BNP: 274.69 - 1944.81 - 373.79 Troponin (high sensitive): 1469 - 1515 - 1684 Blood culture: positive Pleural fluid culture: E-coli Digoxin level: 2.09 Stool OB: positive Chest x-ray revealed: IMPRESSION: 1. Moderate right pleural effusion. 2. Cardiomegaly with mild pulmonary vascular congestion bilaterally. Repeat chest x-ray revealed: IMPRESSION: 1. Endotracheal tube and gastric tubes in place as described. 2. Right IJ central venous catheter projects over the lower SVC. 3. Mild cardiomegaly and prominence of the pulmonary vasculature. 4. Moderate to large right pleural effusion. Repeat chest x-ray revealed: IMPRESSION: Similar lung aeration with large right pleural effusion. No pneumothorax seen. Stable lines and tubes. Repeat chest x-ray revealed: IMPRESSION: Similar lung aeration with large right pleural effusion. No pneumothorax seen. Stable lines and tubes. Repeat chest xry revealed: Lines and tubes: ET in the mid thoracic trachea. NG crosses midline. Right CVC is stable. Left HD catheter projects over the mediastinum. Cardiomediastinal silhouette: Enlarged Pulmonary vasculature: prominent Lung expansion: low Lung airspace: patchy bilateral airspace opacity. Lung interstitium: normal Pleura: Similar large right effusion. Pneumothorax: no Bones: Unremarkable Other: no IMPRESSION: Lines and tubes, as above. Similar lung aeration bilaterally with a right pleural effusion and patchy airspace opacities. Repeat chest xry revealed: IMPRESSION: 1. Stable position of the support lines and tubes. 2. Interstitial and alveolar opacities. Repeat chest xry revealed: IMPRESSION: Unchanged multifocal airspace disease. Small to moderate right pleural effusion ; possibly loculated. Repeat chest xry revealed: IMPRESSION: Lines and tubes in satisfactory position. No significant interval change. Repeat chest xry revealed: IMPRESSION: 1. Support lines and tubes in appropriate position. 2. Pulmonary vascular congestion. 3. Bilateral pleural effusions, right greater than left. Repeat chest xry revealed: IMPRESSION: 1. Support lines and tubes in appropriate position. 2. Pulmonary vascular congestion. 3. Bilateral pleural effusions, right greater than left. Repeat chest xry revealed: IMPRESSION: Interval placement of right chest tube which projects deep into the right hilar region. Repeat chest xry revealed: IMPRESSION: No interval change Repeat chest xry revealed: Findings/IMPRESSION: Right IJ CVC terminating in the SVC. Endotracheal tube projected 5 cm superior to the mili. Enteric tube projected below the GE junction. Right-sided PICC projects terminating near the cavoatrial junction. Small bilateral pleural effusions and/or atelectasis with superimposed infection not excluded. Repeat chest xry revealed: MPRESSION: 1. Bilateral pleural effusions and airspace disease right greater than left. Repeat chest xry revealed: IMPRESSION: 1. Endotracheal tube terminates 6.0 cm above the mili, previously 3.1 cm above the mili. Otherwise, No significant interval change. Repeat chest xry revealed: IMPRESSION: 1. Endotracheal tube terminates 6.0 cm above the mili, previously 3.1 cm above the mili. Otherwise, No significant interval change. Repeat chest xry revealed: IMPRESSION: Lines and tubes in satisfactory position. No significant interval change. Repeat chest xry revealed: IMPRESSION: Lines and tubes in satisfactory position. No significant interval change. Repeat chest xry revealed: IMPRESSION: Lines and tubes in satisfactory position. No significant interval change. Repeat chest xry revealed: IMPRESSION: Lines and tubes in satisfactory position. No significant interval change. Renal ultrasound revealed: IMPRESSION: 1. Right kidney measures 13.4 cm. Decreased cortical thickness on the right. 2. Left kidney measures 10.2 cm. 3. No hydronephrosis on the right grade 1 hydronephrosis on the left. 4. Bilateral renal calculi. CT scan of the chest/abdomen and pelvis revealed: IMPRESSION: 1. Moderate partially loculated right pleural effusion and consolidations in the right middle and lower lobes which could be pneumonia and/or atelectasis. 2. Mild cardiomegaly, mild interstitial pulmonary edema, and body wall edema. 3. There is a 1.9 cm calculus in the right UPJ with mild right hydronephrosis 4. There is a 2.6 cm somewhat staghorn appearing calculus in the left renal pelvis and UPJ causing mild predominantly mid to lower pole left hydronephrosis. Mild soft tissue stranding about the left renal pelvis which could be due to obstruction or superimposed infection. Correlate with urinalysis. 5. Partial duplication of the left renal collecting system without hydronephrosis in the upper pole. 6. Moderate right perinephric, right retroperitoneal, and bilateral extraperitoneal pelvis low-density fluid and very mild left retroperitoneal low-density fluid. This could be fluid related to bilateral renal obstructions and forniceal ruptures versus evolved retroperitoneal hematoma. This is suboptimally evaluated without intravenous contrast. 7. Fluid-filled small and large bowel loops which may be physiologic or related to enterocolitis and could be manifesting as loose stools and/or diarrhea. 8. Prominent endometrium measuring at least 2.8 cm, suboptimally evaluated by CT. Recommend characterization with nonemergent pelvic ultrasound if clinically indicated. 9. Mild hepatosplenomegaly. 10. Moderate three-vessel calcified coronary artery disease and mild aortic valve calcification. 11. Right IJ central venous catheter in place terminating in the low SVC. 12. Small soft tissue stranding in the right supraclavicular neck which could be blood products. 13. Endotracheal tube terminates above the mili. CT of the head revealed: IMPRESSION: 1. No acute intracranial abnormality. 2. Generalized cerebral volume loss and mild chronic microvascular ischemic change. 3. Partially imaged endotracheal tube. Chest ultrasound revealed: Findings/Impression: There is a trace bilateral pleural effusion. Thoracentesis: FINDINGS: Moderate size, complex and septated right pleural effusion. Aspirated fluid is thick and green in consistency. IMPRESSION: Right thoracentesis with 250 mL removed for laboratory analysis. EKG in [facility] revealed sinus tachycardia, poor R-wave progression old inferior wall MT. later EKG revealed atrial fibrillation with RVR. Telemetry reveals sinus rhythm, occasions of A-fib with RVR, SVT Echocardiogram revealed: Technically limited study secondary to poor acoustic windows. Left ventricle: Left ventricle was normal-sized. Mild concentric left ventricular hypertrophy was seen. LVEF was 55-60%. No gross wall motion abnormality was observed, but its presence can not be ruled out on the basis of this study. Right ventricle is mildly dilated with normal systolic function. Left atrium was mildly dilated. Right atrium was normal-sized. Aortic valve was trileaflet. There was no aortic insufficiency. There was aortic sclerosis with no stenosis. There was trivial mitral/tricuspid regurgitation. Pulmonary valve was not well visualized. Right ventricular systolic pressure was assessed around 48 mm Hg. There was no pericardial effusion. Patient is a 68-year-old morbidly obese patient who presented with respiratory failure to the hospital. Presentation is in favor of sepsis/septic shock. Multiorgan failure is observed. She is intubated and on vent support. She is on multiple pressor support. Life findings are in favor of acute renal failure. She also is known to have nephrolithiasis with history of staghorn calculi. Cardiac-ceballos, the patient did have episode of atrial fibrillation with RVR. She is found to have increased troponin. Presentation questions non-STEMI and possibly type 2 ischemia. Recognizing the presentation, ischemic workup should be postponed after clinical stability (only if patient recovers higher brain function). Is being followed by Nephrology. Had episodes of tachyarrhythmia. Loaded with Digoxin. Positive cultures. Repeated a-fib with RVR. Septic shock Multiorgan failure Acute respiratory failure on vent support Acute renal failure Nephrolithiasis Staghorn calculi Hydronephrosis Abnormal troponin, non-STEMI Atrial fibrillation with RVR Paroxysmal AFib Acute heart failure, diastolic Hepatosplenomegaly Pleural effusion Status post thoracentesis Morbid obesity s/p Cardioversion for A-fib with RVR s/p thoracoscopy and chest tube placement Cardiac suggestion for management: Manage in ICU Follow-up electrolytes and kidney function tests and correct abnormalities Pressure support to keep mean arterial pressure above 65 Amiodarone oral/O mg BID Daily aspirin (81 mg daily) Loaded with Digoxin s/p thoracoscopy and chest tube placement IV metoprolol PRN for a-fib with RVR episodes. Sepsis workup and management as per primary team Evaluation and management of respiratory failure as per primary team/Pulmonary Evaluation and management of nephrolithiasis/hydronephrosis as per primary/Urology Evaluation and management of acute renal failure as per Nephrology Ischemic workup, after clinical stability (only if regained higher brain function) Further evaluation and management as per above and clinical course. A total of 75 minutes was spent reviewing the patient record, examining the patient, making a diagnostic and therapeutic plan, discussing this plan with medical personnel, following up on diagnostic studies and following the patient for clinical stability excluding any and all procedures. At least 50% of this time was spent in direct, [id number] contact. Thank you for allowing me to participate in this patient's care. Further recommendations will depend on patient's clinical course. Please do not hesitate to contact me if you have any questions or concerns. This medical document was created using electronic medical record system with [employer] computerized dictation system. Although this document has been carefully reviewed, there may still be some phonetic and typographical errors. These areas are purely typographical due to the imperfection of the software programs, and do not reflect any compromise in the patient's medical care. Dietary Evaluation Review Comments: 1) If GI is accessible consider Nepro 1.8 @ 30 ml/hr goal rate as tolerated with current rate of propofol on board. 2) If pt remains NPO >7 days consider TPN to meet at least 75% of estimated needs 3) If pt continues to receive HD, advance pt diet when medically feasible to a Renal Standard diet modified per SOCIAL SCIENCES RESEARCH SCIENTIST recommendations 4) If HD is discontinued and GFR is within normal range, advance pt diet to a Regular diet, modified per SOCIAL SCIENCES RESEARCH SCIENTIST recommendations 5)If HD is discontinued and GFR lies within STG 1-4, advance pt diet to a Renal Specific K2,lowphos,HECTOR,2gmNa,80gPro diet 6) If HD is discontinued and if GFR returns to normal levels then ALEXANDRA 1 pkt BID with meals may be considered to aid with wound healing 7) Continue current plan of care Expected Outcomes/Goals: 1) Pt to receive nutrition support within 7 days of NPO status 2) Pt labs to improve 3) Pt diet to advance 4) F/U in 2-3 days Plan discussed with: Other (nurse) HERMINIO JOHNSON MD Apr 16, 2024 08:43
[2024-04-16] MEDS: BUMETANIDE 1mg/4ml VIAL (0.25mg/ml) IV SCH (09:18)
--- NOTE | 2024-04-16 09:21 | DVHPNRES ---
Progress Note Date Seen: Apr 16, 2024 Resident Creating Document: KEVON BLANTON RESIDENT Has the PT tested + for MRSA If YES, has PT been informed?: No Medical Necessity Reason Pt with a Central, PICC or Fol: Yes The following are medically ne: Central Line, Martines Catheter Subjective Review of Systems This is a 68-year-old female with unknown past medical history who was transferred from another facility ([facility]) for higher level of care. The patient initially was treated at that facility for shortness of breaths and back pain. The patient was transferred to our facility for higher level of care. The patient on arrival to the ED was tachypneic with severe respiratory failure, tachycardic rhythm consistent with atrial fibrillation and was saturating in the 70s. Initially placed on non-rebreather mask and then emergently intubated to protect airway. The patient was started on amiodarone drip 1 milligram/minute, phenylephrine, vasopressin and levophed. Patient initially was started on broad-spectrum antibiotics with vancomycin and Zosyn but for renal protection, since GFR was less than 10 and to have a more broad- spectrum coverage we added meropenem and discontinued Zosyn. To the ICU for further assessment and management. Patient seen and examined at bedside. Patient is currently sedated on fentanyl but we have been coming down sedation, patient is currently opening eyes and nodding head when asked very simple questions. We will try last CPAP trial this morning, if patient fail we will place a surgical consult for tracheostomy tube placement. Patient is currently on mechanical ventilator on the following parameters: VT 500, RR 18, FiO2 30%, peep five, saturating 99%. Chest x-ray showing right lower lobe opacities. Hemoglobin was 7.1, 1 unit of packed RBCs were transfused. We tried CPAP trial showing a NIF of-27, RSBI of 53 and an audible leak. Patient was pulling good volumes reason why was extubated without complications. The patient is currently requiring BiPAP at this time saturating 97%. will monitor closely. ROS unable to obtain due to patient's current status on BIPAP. Objective vital signs Vital Sign Date Time Temp Pulse Resp B/P (MAP) Pulse Ox O2 Delivery O2 Flow Rate FiO2 04/16/24 08:28 88 23 96/54 (68) 98 30 04/16/24 08:00 Mechanical Ventilator+ 04/16/24 04:00 98.1 98.1 Total Intake and Output 04/15/24 04/15/24 04/16/24 15:00 23:00 07:00 Intake Total 248.325 ml 323.875 ml 447.500 ml Output Total 825 ml 860 ml Balance 248.325 ml -501.125 ml -412.500 ml medications Current Medications Medications Dose Ordered Sig/Destini Route Start Time Stop Time Status Last Admin Dose Admin Heparin Sodium/ Dextrose 250 ml @ 18 mls/hr [id number] IV 03/31/24 23:45 UNV Midazolam HCl 50 ml @ 1 mls/hr Q24H IV 04/01/24 01:30 04/12/24 20:07 6 MLS/HR Ondansetron HCl 4 mg Q4HP PRN IV 04/01/24 05:00 Acetaminophen 650 mg Q6HP PRN PO 04/01/24 05:00 04/15/24 17:07 650 MG Nitroglycerin 0.4 mg Q5MINP PRN SL 04/01/24 05:00 Albuterol 2.5 mg Q6HR NEB 04/01/24 06:00 04/16/24 06:14 2.5 MG Albumin Human 100 ml @ 100 mls/hr KIRAN PRN IV 04/03/24 07:00 Norepinephrine Bitartrate 32 mg/ Sodium Chloride 250 ml @ 0.469 mls/ hr Q24H IV 04/04/24 06:30 04/08/24 17:08 0.938 MLS/HR Enteral Nutritional Formula 1,000 ml 20ML/HR GT 04/09/24 11:15 04/12/24 10:35 1,000 ML Sodium Chloride 10 ml QSHIFT@22 IV 04/09/24 22:00 04/15/24 22:13 10 ML Iron Sucrose 110 ml @ 110 mls/hr DAILY@1200 IV 04/10/24 12:00 04/15/24 14:27 110 MLS/HR Amiodarone HCl 200 mg Q12HR PO 04/10/24 22:00 UNV Amiodarone HCl 200 mg Q12HR PO 04/10/24 22:00 04/15/24 22:13 200 MG Phenylephrine HCl 80 mg/Sodium Chloride 250 ml @ 7.5 mls/hr Q24H IV 04/10/24 19:30 04/15/24 10:40 1.875 MLS/HR Fentanyl Citrate 250 ml @ 2.5 mls/hr Q24H IV 04/11/24 15:15 04/16/24 04:36 30 MLS/HR Nystatin 1 applic BID TOP 04/12/24 22:00 04/15/24 22:15 1 APPLIC Levofloxacin 50 ml @ 50 mls/hr DAILY IV 04/13/24 10:00 04/15/24 10:40 50 MLS/HR Dexmedetomidine HCl 400 mcg/ Dextrose 100 ml @ 6.05 mls/hr [id number] IV 04/13/24 15:45 04/15/24 11:06 21.175 MLS/HR Enoxaparin Sodium 40 mg DAILY SC 04/14/24 10:00 04/15/24 10:41 40 MG Purified Water 200 ml Q4HR GT 04/14/24 14:00 04/16/24 05:30 200 ML Bumetanide 1 mg DAILY IV 04/16/24 10:00 Examination Physical Examination General: Patient sedated on fentanyl on mechanical ventilator: VT 500, RR 18, FiO2 30%, PEEP 5, sat 99% HEENT: Normocephalic, atraumatic, moist mucous membranes Respiratory/pulmonary: There are decreased breath sounds on right lung base. There is a right sided 40 sized chest tube draining aprox 10cc of serosanguineous fluid into the Pleur-evac in the last 12 hrs. Cardiovascular: Heart sounds currently regular and rhythmic with occasional PACs . No murmurs at this time. Abdomen: Abdomen slightly distended, there is no pain to palpation in any of the abdominal quadrants, no palpable masses. Extremities: There is minimal 1+ pitting edema in the lower extremities bilaterally. Peripheral Pulses: 3+ Radial (R). 3+ Radial (L). 3+ Dorsalis pedis (R). 3+ Dorsalis pedis(L) Skin: There is dry skin in bilateral lower extremities with scales and excoriations. Neurological: Sedated, RASS -1 laboratory and microbiology Laboratory Tests 04/16/24 03:39 Test 04/16/24 03:39 Range/Units Serum Glucose 100 74-106 mg/dL Microbiology Date/Time Source Procedure Growth Status 04/09/24 13:10 Blood Blood Culture - Final NO GROWTH AFTER 5 DAYS OF INCUBATION. Complete 04/08/24 08:02 Thoracic Fluid Gram Stain - Final Complete 04/08/24 08:02 Thoracic Fluid Anaerobic Culture - Final Complete 04/08/24 08:02 Thoracic Fluid Aerobic Culture - Final Complete 04/07/24 07:44 Urine - [place] Urine Culture - Final Complete 04/01/24 11:19 Nose MRSA Screen - Final Complete 03/31/24 22:55 Sputum Endotracheal Wash Gram Stain - Final Complete 03/31/24 22:55 Sputum Endotracheal Wash Respiratory Culture - Final Complete Problem List/Assessment/Plan Problem List/Assessment/Plan Assessment/Plan Neurology Sedation -currently on midazolam and fentanyl Vasopressors -currently on phenylephrine Respiratory Acute hypoxic respirtory failure likel due to right-sided pleural effusion and consolidation on right middle and lower lobes -initial chest x-ray showed severe right lower lobe opacities consistent with either consolidation or moderate to severe pleural effusion -CT of the chest and abdomen showed moderate partial loculated right pleural effusion and consolidation on right middle/lower lobes. Mild cardiomegaly and interstitial pulmonary edema. It also showed right hydronephrosis with 1.9 cm calculus into the right UPJ. There is also a 2.6 cm staghorn appearing calculus causing mid to lower pole left hydronephrosis. -the patient was initially started on Zosyn, vancomycin and cefepime. We discontinued Zosyn and cefepime. -we will switch linezolid back to vancomycin due to low platelet. -Continue IV vanco and meropenem -consulted interventional radiologist which performed right-sided thoracentesis removing 250 mL of fluid which were sent to analysis. -Surgical thoracoscopy was performed on 04/08/2024 with evacuation of empyema and insertion of a chest tube draining approximately 200 cc of purulent material. -Patient was extubated today 04/16/24 -currently on BIPAP EPAP 5, IPAP 12 sat 97% -Right chest tube is draining aprox 10cc in the last 12 hrs. -ABG showing a pH of 7.39, pCO2 of 39.5, HC03 of 23.8, PaO2 of 116.9 on BIPAP (EPAP 5, IPAP 12) Sepsis in the setting of loculated right-sided pleural effusion (EMPYEMA) and pneumonia -ordered blood cultures, sputum cultures and urine culture -currently on IV meropenem and linezolid -Will monitor plateletes closely -S/P right-sided thoracentesis removing 250 mL of fluids. -chest x-ray this morning showed still right-sided opacities and left opacities in the base of the lung. -Surgical thoracoscopy was performed on 04/08/2024 with evacuation of empyema and insertion of a chest tube draining approximately 200 cc of purulent material. -Right chest tube is draining aprox 10cc in the last 12 hrs. Cardiology Acute on chronic systolic/diastolic heart failure -BNP came back elevated at 274.69 -initial EKG showed sinus tachycardia with PACs but no ST segment elevation or depression at that time -troponins came back elevated at 1469 and peaked up to 1684 -echocardiogram is showing an LVEF of 55-60% with increased RVSP at 48 mmHg and no pericardial effusion NSTEMI type II ? -troponins came back elevated at 1469 and peaked up to 1684 -Trend trops Atrial fibrilation with RVR -CHADS VASC score HAS BLED score -heparin drip was hold for right-sided chest tube placement and david catheter placement -patient underwent atrial flutter with a heart rate of 180 to 200, cardiology decided to perform synchronized cardioversion and continue amiodarone drip. -S/P multiple synchronized cardioversions x6 -Continue amiodarone 200mg PO BID -patient was given two doses of digoxin but due to high levels of digoxin blood 3rd dose was held Nephrology Bilateral hydronephrosis -CT scan of the chest and abdomen showed right hydronephrosis with 1.9 cm calculus into the right UPJ, there was also a 2.6 cm staghorn appearing calculus causing mid to lower pole left hydronephrosis. -nephrology on board -consulted Urology for bilateral nephrostomy tube placement -David catheter placed on L IJ on 04/08/24 REMOVED CHRISTOPH likely postobstructive nephropathy -most likely secondary to bilateral renal calculi -creatinine was 1.73 and BUN 57. Kidney function slightly improving -Holding HD at this time since Cr is slightly improving -nephrology and urology on board -consulted Urology for bilateral nephrostomy tube placement, if therapy does not improve patient might need hemodialysis as last resource Hematology Acute microcytic hypochromic anemia -Hb today was 7.1 -Transfused 1 pack of RBCs -Monitor hb and hct Nutrition -Continue EN Nepro at 30cc/hr Hyperkalemia -potassium was 3.5 -monitor closely DVT prophylaxys -Continue on Enoxaparin 40mg sc QD. Lines: PICC line placed Peripheral in right wrist placed on 03/31/2024 Peripheral in left forearm placed on 03/31/2024 Goals of care discussed with daughter at bedside for >23min Critical time spent including cpap trial was 82 mins Plan discussed with Dr. Jones Plan discussed with: Daughter My Orders My Orders Orders - KEVON BLANTON Procedure Category Date Status Time Osmolality Urine LAB 04/15/24 Logged 14:31 Chest Xray 1 View XY 04/16/24 Resulted 04:00 Abg W/ Co-Ox RT 04/16/24 Logged 05:41 Dietary Evaluation Review Comments: 1) If GI is accessible consider Nepro 1.8 @ 30 ml/hr goal rate as tolerated with current rate of propofol on board. 2) If pt remains NPO >7 days consider TPN to meet at least 75% of estimated needs 3) If pt continues to receive HD, advance pt diet when medically feasible to a Renal Standard diet modified per NETWORK CONTROLLER recommendations 4) If HD is discontinued and GFR is within normal range, advance pt diet to a Regular diet, modified per NETWORK CONTROLLER recommendations 5)If HD is discontinued and GFR lies within STG 1-4, advance pt diet to a Renal Specific K2,lowphos,HECTOR,2gmNa,80gPro diet 6) If HD is discontinued and if GFR returns to normal levels then ALEXANDRA 1 pkt BID with meals may be considered to aid with wound healing 7) Continue current plan of care Expected Outcomes/Goals: 1) Pt to receive nutrition support within 7 days of NPO status 2) Pt labs to improve 3) Pt diet to advance 4) F/U in 2-3 days Date of Service: Apr 16, 2024 Billing Provider: LAURIE JONES MD Common Visit Codes: 63560-[id number] CARE 30-74 MIN, [id number] CARE-EACH +30MIN KEVON BLANTON RESIDENT Apr 16, 2024 09:21 LAURIE JONES MD Apr 17, 2024 12:34
[2024-04-16 10:41] LABS: Base Excess -2.2 mmol/L (-2.0-3.0)
--- NOTE | 2024-04-16 10:51 | DVHPN2 ---
Progress Note Date Seen: Apr 16, 2024 Has the PT tested + for MRSA If YES, has PT been informed?: No Medical Necessity Reason Pt with a Central, PICC or Fol: Yes The following are medically ne: Central Line, Martines Catheter Subjective Review of Systems: RESPIRATORY:Abnormal Other Systems: Patient seen and examined by myself today in follow-up Patient remained intubated on ventilator Objective vital signs Vital Sign Date Time Temp Pulse Resp B/P (MAP) Pulse Ox O2 Delivery O2 Flow Rate FiO2 04/16/24 10:00 30 04/16/24 10:00 17 95 Mechanical Ventilator+ 04/16/24 10:00 94 04/16/24 09:18 108/59 04/16/24 04:00 98.1 98.1 Total Intake and Output 04/15/24 04/15/24 04/16/24 15:00 23:00 07:00 Intake Total 248.325 ml 323.875 ml 447.500 ml Output Total 825 ml 860 ml Balance 248.325 ml -501.125 ml -412.500 ml medications Current Medications Medications Dose Ordered Sig/Destini Route Start Time Stop Time Status Last Admin Dose Admin Heparin Sodium/ Dextrose 250 ml @ 18 mls/hr [id number] IV 03/31/24 23:45 UNV Midazolam HCl 50 ml @ 1 mls/hr Q24H IV 04/01/24 01:30 04/12/24 20:07 6 MLS/HR Ondansetron HCl 4 mg Q4HP PRN IV 04/01/24 05:00 Acetaminophen 650 mg Q6HP PRN PO 04/01/24 05:00 04/15/24 17:07 650 MG Nitroglycerin 0.4 mg Q5MINP PRN SL 04/01/24 05:00 Albuterol 2.5 mg Q6HR NEB 04/01/24 06:00 04/16/24 06:14 2.5 MG Albumin Human 100 ml @ 100 mls/hr KIRAN PRN IV 04/03/24 07:00 Norepinephrine Bitartrate 32 mg/ Sodium Chloride 250 ml @ 0.469 mls/ hr Q24H IV 04/04/24 06:30 04/08/24 17:08 0.938 MLS/HR Enteral Nutritional Formula 1,000 ml 20ML/HR GT 10/9/24 11:15 04/12/24 10:35 1,000 ML Sodium Chloride 10 ml QSHIFT@10,22 IV 04/09/24 22:00 04/16/24 09:17 10 ML Iron Sucrose 110 ml @ 110 mls/hr DAILY@1200 IV 04/10/24 12:00 04/15/24 14:27 110 MLS/HR Amiodarone HCl 200 mg Q12HR PO 04/10/24 22:00 UNV Amiodarone HCl 200 mg Q12HR PO 04/10/24 22:00 04/16/24 09:17 200 MG Phenylephrine HCl 80 mg/Sodium Chloride 250 ml @ 7.5 mls/hr Q24H IV 04/10/24 19:30 04/15/24 10:40 1.875 MLS/HR Fentanyl Citrate 250 ml @ 2.5 mls/hr Q24H IV 04/11/24 15:15 04/16/24 09:43 27.5 MLS/HR Nystatin 1 applic BID TOP 04/12/24 22:00 04/16/24 09:21 1 APPLIC Levofloxacin 50 ml @ 50 mls/hr DAILY IV 04/13/24 10:00 04/16/24 09:20 50 MLS/HR Dexmedetomidine HCl 400 mcg/ Dextrose 100 ml @ 6.05 mls/hr [id number] IV 04/13/24 15:45 04/15/24 11:06 21.175 MLS/HR Enoxaparin Sodium 40 mg DAILY SC 04/14/24 10:00 04/16/24 09:20 40 MG Purified Water 200 ml Q4HR GT 04/14/24 14:00 04/16/24 09:20 200 ML Bumetanide 1 mg DAILY IV 04/16/24 10:00 04/16/24 09:18 1 MG Examination: LUNGS:Normal, CVS:Normal, MSK:Abnormal laboratory and microbiology Laboratory Tests 04/16/24 03:39 Test 04/16/24 03:39 Range/Units Serum Glucose 100 74-106 mg/dL Microbiology Date/Time Source Procedure Growth Status 04/09/24 13:10 Blood Blood Culture - Final NO GROWTH AFTER 5 DAYS OF INCUBATION. Complete 04/08/24 08:02 Thoracic Fluid Gram Stain - Final Complete 04/08/24 08:02 Thoracic Fluid Anaerobic Culture - Final Complete 04/08/24 08:02 Thoracic Fluid Aerobic Culture - Final Complete 04/07/24 07:44 Urine - [place] Urine Culture - Final Complete 04/01/24 11:19 Nose MRSA Screen - Final Complete 03/31/24 22:55 Sputum Endotracheal Wash Gram Stain - Final Complete 03/31/24 22:55 Sputum Endotracheal Wash Respiratory Culture - Final Complete Problem List/Assessment/Plan Problem List/Assessment/Plan Acute kidney injury due to ATN/hemodynamic from shock, status post intermittent hemodialysis Acute respiratory failure, intubated on ventilator NSTEMI septic shock empyema metabolic acidosis resolved b/l renal stones w/ hydronephrosis morbid obesity hyperkalemia, resolved Hypernatremia due to insensible water loss afib RVR Hypokalemia Recommendations Kidney function is continuing to improve off hemodialysis Increased urine output Bumex 1 mg IV push q.day IV pressors for blood pressure support Strict I&Os IV antibiotics IVF D5W at 100 cc/hour KCL replacement free water down NG tube Urology consult We will continue to follow Plan discussed with: Other (Nurse) My Orders My Orders Orders - SWETA CHAND MD Procedure Category Date Status Time Bumetanide Injection PHA 04/16/24 In Process (Bumex Injection) 10:00 D5w 5% PHA 04/16/24 Transmitted 11:00 Potassium Chl Jace PHA 04/16/24 Verified KCL 11:00 Dietary Evaluation Review Comments: 1) If GI is accessible consider Nepro 1.8 @ 30 ml/hr goal rate as tolerated with current rate of propofol on board. 2) If pt remains NPO >7 days consider TPN to meet at least 75% of estimated needs 3) If pt continues to receive HD, advance pt diet when medically feasible to a Renal Standard diet modified per BLENDING TANK HELPER recommendations 4) If HD is discontinued and GFR is within normal range, advance pt diet to a Regular diet, modified per BLENDING TANK HELPER recommendations 5)If HD is discontinued and GFR lies within STG 1-4, advance pt diet to a Renal Specific K2,lowphos,HECTOR,2gmNa,80gPro diet 6) If HD is discontinued and if GFR returns to normal levels then ALEXANDRA 1 pkt BID with meals may be considered to aid with wound healing 7) Continue current plan of care Expected Outcomes/Goals: 1) Pt to receive nutrition support within 7 days of NPO status 2) Pt labs to improve 3) Pt diet to advance 4) F/U in 2-3 days SWETA CHAND MD Apr 16, 2024 10:50
[2024-04-16] MEDS: D5W 5% 1,000 ML IV SCH (11:00)
[2024-04-16] MEDS: FREE WATER GT SCH (12:00)
[2024-04-16] MEDS: FUROSEMIDE 40 MG/4 ML VIAL IV ONE (13:55)
[2024-04-16] MEDS: BUMETANIDE 1mg/4ml VIAL (0.25mg/ml) IV ONE (13:56)
[2024-04-16] MEDS: POTASSIUM CHL 20MEQ/100ML 100 ML IV SCH (14:03)
[2024-04-16 14:44] LABS: Base Excess -0.9 mmol/L (-2.0-3.0)
[2024-04-16] MEDS ORDERED: MORPHINE SULFATE INJ 2 MG/ml SYRG IV PRN (15:30)
[2024-04-16] MEDS: ALBUTEROL SULF 2.5 MG/0.5ML(0.5%) NEB SOLN ONE (16:39)
[2024-04-16] MEDS: ALBUTEROL SULF 2.5 MG/0.5ML(0.5%) NEB SOLN NEB ONE (16:39)
[2024-04-16] MEDS: ALBUTEROL SULF 2.5 MG/0.5ML(0.5%) NEB SOLN NEB SCH (18:45)
[2024-04-16] MEDS: BUDESONIDE (INHALATION) 0.5 MG/2 ML NEB NEB SCH (18:45)
[2024-04-16] MEDS: IPRATROPIUM BROM 0.5 MG/2.5ML INH SOL NEB SCH (18:46)
[2024-04-16 20:52] LABS: Base Excess -1.7 mmol/L (-2.0-3.0)
[2024-04-16] MEDS ORDERED: LORazepam 2MG/ML-1ML VIAL IV PRN (21:45)
[2024-04-16 21:48] LABS: Urine Bacteria FEW /hpf (None Seen); Urine Blood 2+ /uL (Negative); Urine Budding Yeast MANY /hpf (None Seen); Urine Clarity Turbid (Clear); Urine Color Colorless (Yellow); Urine Mucus FEW (None Seen); Urine Protein, UAD TRACE (Negative); Urine Specific Gravity 1.011 (1.001-1.035); Urine Urobilinogen Normal (Negative); Urine WBC 179 /hpf (0 - 5); Urine WBC Clumps PRESENT /hpf (None Seen); Urine pH 5.5 (5.0-9.0)
[2024-04-16 22:17] LABS: Magnesium 2.3 mg/dL (1.6-2.6)
[2024-04-16 23:02] LABS: Chloride 114 mmol/L (98-107); Sodium 148 mmol/L (136-145)
[2024-04-16 23:04] LABS: Anion Gap 12 (5-15); Calcium 8.2 mg/dL (8.7-10.4); Carbon Dioxide 22 mmol/L (20-31)
[2024-04-16 23:09] LABS: BUN/Creatinine Ratio 28.7 (10.0-20.0); Blood Urea Nitrogen 51 mg/dL (9-23); Glucose 106 mg/dL (74-106)
[2024-04-17] VITALS (88 sets, daily range): BP systolic 85–137; BP diastolic 57–87; PULSE 76–115; RESP 17–38; TEMP 98.6–98.9; O2SAT 93–100
[2024-04-17] MEDS: NITROGLYCERIN 0.4 MG SL TAB SL PRN (01:05)
[2024-04-17] MEDS: NITROGLYCERIN 0.4 MG SL TAB SL ONE ×2 (01:07→01:13)
[2024-04-17 02:49] LABS: Base Excess -2.7 mmol/L (-2.0-3.0)
--- NOTE | 2024-04-17 04:51 | DVH ---
CHEST RADIOGRAPH Indication:post bipap Technique: Single frontal view of the chest was obtained COMPARISON: XY CHEST XRAY 1 VIEW on DOS: 04/16/24, XY CHEST PORTABLE on DOS: 04/15/24, XY CHEST STEPHANY BLE on DOS: 04/14/24 FINDINGS: Lines and Tubes: Right PICC and enteric catheter and right chest tube in satisfactory position. Lungs: Right lower lobe airspace disease. Pleura: No effusion. No pneumothorax. Cardiomediastinal contours: Unremarkable Bones: Unremarkable IMPRESSION: Interval extubation. No other significant interval change.
--- NOTE | 2024-04-17 05:12 | PRN ---
FAVIAN SKINNER RESIDENT Apr 17, 2024 05:12
--- NOTE | 2024-04-17 07:09 | DVHPNRES ---
Progress Note Date Seen: Apr 17, 2024 Resident Creating Document: KEVON BLANTON RESIDENT Has the PT tested + for MRSA If YES, has PT been informed?: No Medical Necessity Reason Pt with a Central, PICC or Fol: Yes The following are medically ne: Central Line, Martines Catheter Subjective Review of Systems This is a 68-year-old female with unknown past medical history who was transferred from another facility ([facility]) for higher level of care. The patient initially was treated at that facility for shortness of breaths and back pain. The patient was transferred to our facility for higher level of care. The patient on arrival to the ED was tachypneic with severe respiratory failure, tachycardic rhythm consistent with atrial fibrillation and was saturating in the 70s. Initially placed on non-rebreather mask and then emergently intubated to protect airway. The patient was started on amiodarone drip 1 milligram/minute, phenylephrine, vasopressin and levophed. Patient initially was started on broad-spectrum antibiotics with vancomycin and Zosyn but for renal protection, since GFR was less than 10 and to have a more broad- spectrum coverage we added meropenem and discontinued Zosyn. To the ICU for further assessment and management. Patient seen and examined at bedside. Patient was this morning on BiPAP with increased work of breathing with a rate ranging between 35 and 38. Overnight patient was breathing at the same rate, when asking the patient regarding shortness of breaths patient denied any symptoms. Overnight EKG was performed showing ST segment elevations from V2 to V4. Night team contacted Cardiology which recommended nitroglycerin which apparently improved the ST segment elevation in subsequent EKGs, medical management was recommended at that time. This morning EKG was still consistent with ST segment elevation reason why STEMI was called in. Patient was rate intubated back and was taken to the OR for left heart catheterization. ROS unable to obtain due to patient's current status, intubation. Objective vital signs Vital Sign Date Time Temp Pulse Resp B/P (MAP) Pulse Ox O2 Delivery O2 Flow Rate FiO2 04/17/24 06:51 103 113/71 96 Facial BiPAP Mask 35 04/17/24 06:30 22 04/17/24 04:00 98.9 98.9 04/16/24 12:00 8 Total Intake and Output 04/16/24 04/16/24 04/17/24 15:00 23:00 07:00 Intake Total 368.125 ml 500 ml Output Total 1350 ml 550 ml Balance 368.125 ml -850 ml -550 ml medications Current Medications Medications Dose Ordered Sig/Destini Route Start Time Stop Time Status Last Admin Dose Admin Heparin Sodium/ Dextrose 250 ml @ 18 mls/hr [id number] IV 03/31/24 23:45 UNV Midazolam HCl 50 ml @ 1 mls/hr Q24H IV 04/01/24 01:30 04/12/24 20:07 6 MLS/HR Ondansetron HCl 4 mg Q4HP PRN IV 04/01/24 05:00 Acetaminophen 650 mg Q6HP PRN PO 04/01/24 05:00 04/15/24 17:07 650 MG Nitroglycerin 0.4 mg Q5MINP PRN SL 04/01/24 05:00 04/17/24 01:05 0.4 MG Albumin Human 100 ml @ 100 mls/hr KIRAN PRN IV 04/03/24 07:00 Norepinephrine Bitartrate 32 mg/ Sodium Chloride 250 ml @ 0.469 mls/ hr Q24H IV 04/04/24 06:30 04/08/24 17:08 0.938 MLS/HR Enteral Nutritional Formula 1,000 ml 20ML/HR GT 04/09/24 11:15 04/12/24 10:35 1,000 ML Sodium Chloride 10 ml QSHIFT@10,22 IV 04/09/24 22:00 04/16/24 21:43 10 ML Iron Sucrose 110 ml @ 110 mls/hr DAILY@1200 IV 04/10/24 12:00 04/16/24 12:30 110 MLS/HR Amiodarone HCl 200 mg Q12HR PO 04/10/24 22:00 UNV Amiodarone HCl 200 mg Q12HR PO 04/10/24 22:00 04/16/24 21:43 200 MG Phenylephrine HCl 80 mg/Sodium Chloride 250 ml @ 7.5 mls/hr Q24H IV 04/10/24 19:30 04/15/24 10:40 1.875 MLS/HR Fentanyl Citrate 250 ml @ 2.5 mls/hr Q24H IV 04/11/24 15:15 04/16/24 09:43 27.5 MLS/HR Nystatin 1 applic BID TOP 04/12/24 22:00 04/16/24 21:43 1 APPLIC Levofloxacin 50 ml @ 50 mls/hr DAILY IV 04/13/24 10:00 04/16/24 09:20 50 MLS/HR Dexmedetomidine HCl 400 mcg/ Dextrose 100 ml @ 6.05 mls/hr [id number] IV 04/13/24 15:45 04/15/24 11:06 21.175 MLS/HR Enoxaparin Sodium 40 mg DAILY SC 04/14/24 10:00 04/16/24 09:20 40 MG Bumetanide 1 mg DAILY IV 04/16/24 10:00 04/16/24 09:18 1 MG Dextrose 1,000 ml @ 100 mls/hr Q10H IV 04/16/24 11:00 Purified Water 200 ml Q6HR GT 04/16/24 12:00 04/16/24 23:36 200 ML Morphine Sulfate 1 mg Q4HP PRN IV 04/16/24 15:30 Albuterol 2.5 mg Q4HR NEB 04/16/24 18:00 04/17/24 06:49 2.5 MG Ipratropium Viola 0.5 mg Q4HR NEB 04/16/24 18:00 04/17/24 06:50 0.5 MG Budesonide 0.5 mg BID NEB 04/16/24 22:00 04/17/24 06:51 0.5 MG Lorazepam 0.5 mg Q6HP PRN IV 04/16/24 21:45 Examination Physical Examination General: Patient sedated on fentanyl on mechanical ventilator: VT 500, RR 18, FiO2 30%, PEEP 5, sat 99% HEENT: Normocephalic, atraumatic, moist mucous membranes Respiratory/pulmonary: There are decreased breath sounds on right lung base. There is a right sided 40 sized chest tube with no output in the last 12 hrs. Cardiovascular: Heart sounds currently regular and rhythmic with occasional PACs . No murmurs at this time. Abdomen: Abdomen slightly distended, there is no pain to palpation in any of the abdominal quadrants, no palpable masses. Extremities: There is minimal 1+ pitting edema in the lower extremities bilaterally. Peripheral Pulses: 3+ Radial (R). 3+ Radial (L). 3+ Dorsalis pedis (R). 3+ Dorsalis pedis(L) Skin: There is dry skin in bilateral lower extremities with scales and excoriations. Neurological: Sedated, RASS -1 laboratory and microbiology Laboratory Tests 04/16/24 21:53 04/16/24 03:39 Test 04/16/24 21:53 Range/Units Serum Glucose 106 74-106 mg/dL Microbiology Date/Time Source Procedure Growth Status 04/09/24 13:10 Blood Blood Culture - Final NO GROWTH AFTER 5 DAYS OF INCUBATION. Complete 04/08/24 08:02 Thoracic Fluid Gram Stain - Final Complete 04/08/24 08:02 Thoracic Fluid Anaerobic Culture - Final Complete 04/08/24 08:02 Thoracic Fluid Aerobic Culture - Final Complete 04/07/24 07:44 Urine - [place] Urine Culture - Final Complete 04/01/24 11:19 Nose MRSA Screen - Final Complete 03/31/24 22:55 Sputum Endotracheal Wash Gram Stain - Final Complete 03/31/24 22:55 Sputum Endotracheal Wash Respiratory Culture - Final Complete Problem List/Assessment/Plan Problem List/Assessment/Plan Assessment/Plan Neurology Sedation -currently on midazolam and fentanyl Vasopressors -currently on phenylephrine Respiratory Acute hypoxic respirtory failure likel due to right-sided pleural effusion and consolidation on right middle and lower lobes -initial chest x-ray showed severe right lower lobe opacities consistent with either consolidation or moderate to severe pleural effusion -CT of the chest and abdomen showed moderate partial loculated right pleural effusion and consolidation on right middle/lower lobes. Mild cardiomegaly and interstitial pulmonary edema. It also showed right hydronephrosis with 1.9 cm calculus into the right UPJ. There is also a 2.6 cm staghorn appearing calculus causing mid to lower pole left hydronephrosis. -the patient was initially started on Zosyn, vancomycin and cefepime. We discontinued Zosyn and cefepime. -we will switch linezolid back to vancomycin due to low platelet. -Continue IV vanco and meropenem -consulted interventional radiologist which performed right-sided thoracentesis removing 250 mL of fluid which were sent to analysis. -Surgical thoracoscopy was performed on 04/08/2024 with evacuation of empyema and insertion of a chest tube draining approximately 200 cc of purulent material. -Patient was extubated on 04/16/24 Patient was reintubated today on 04/17/24 due to tachypneic and STEMI which required left heart cath -currently on any ventilator on the following parameters: VT 500, RR 18, FiO2 30%, peep five, saturating 96%. -Right chest tube had no output in the last 24 hours. Sepsis in the setting of loculated right-sided pleural effusion (EMPYEMA) and pneumonia -ordered blood cultures, sputum cultures and urine culture -currently on IV meropenem and linezolid -Will monitor plateletes closely -S/P right-sided thoracentesis removing 250 mL of fluids. -chest x-ray this morning showed still right-sided opacities and left opacities in the base of the lung. -Surgical thoracoscopy was performed on 04/08/2024 with evacuation of empyema and insertion of a chest tube draining approximately 200 cc of purulent material. -Right chest tube had no output in the last 24 hours. -Patient was extubated on 04/16/24 Patient was reintubated today on 04/17/24 due to tachypneic and STEMI which required left heart cath Cardiology Acute on chronic systolic/diastolic heart failure -BNP came back elevated at 274.69 -initial EKG showed sinus tachycardia with PACs but no ST segment elevation or depression at that time -troponins came back elevated at 1469 and peaked up to 1684 -echocardiogram is showing an LVEF of 55-60% with increased RVSP at 48 mmHg and no pericardial effusion STEMI (leads v2-v4) -troponins came back elevated at 1469 and peaked up to 1684 -Trend trops -today patient was intubated and taken to the OR for left heart catheterization which showed mild LAD with chronic total occlusion which was attempted to open, LAD and diagonal were full of thrombus. Mid RCA also had 50% lesion. No stents placed at this time. -start heparin drip -start Plavix 75 mg q.d. -Aspirin loading dose was given 325mg Atrial fibrilation with RVR -CHADS VASC score HAS BLED score -heparin drip was hold for right-sided chest tube placement and david catheter placement -patient underwent atrial flutter with a heart rate of 180 to 200, cardiology decided to perform synchronized cardioversion and continue amiodarone drip. -S/P multiple synchronized cardioversions x6 -Continue amiodarone 200mg PO BID -patient was given two doses of digoxin but due to high levels of digoxin blood 3rd dose was held -currently on heparin drip Nephrology Bilateral hydronephrosis -CT scan of the chest and abdomen showed right hydronephrosis with 1.9 cm calculus into the right UPJ, there was also a 2.6 cm staghorn appearing calculus causing mid to lower pole left hydronephrosis. -nephrology on board -consulted Urology for bilateral nephrostomy tube placement -David catheter placed on L IJ on 04/08/24 REMOVED CHRISTOPH likely postobstructive nephropathy -most likely secondary to bilateral renal calculi -creatinine was 1.78 and BUN 51. Kidney function slightly improving -Holding HD at this time since Cr is slightly improving -nephrology and urology on board -consulted Urology for bilateral nephrostomy tube placement, if therapy does not improve patient might need hemodialysis as last resource Hematology Acute microcytic hypochromic anemia -Hb today was 8.9 -Transfused 1 pack of RBCs on 04/16/24 -Monitor hb and hct Nutrition -Continue EN Nepro at 30cc/hr Hyperkalemia -potassium was 4.0 -monitor closely DVT prophylaxys -Continue on Enoxaparin 40mg sc QD. Lines: PICC line placed Peripheral in right wrist placed on 03/31/2024 Peripheral in left forearm placed on 03/31/2024 Goals of care discussed with mdical team and Dr. martinez at bedside for >23min Critical time spent excluding procedures was 82 mins Plan discussed with Dr. Jones Plan discussed with: Other My Orders My Orders Orders - KEVON BLANTON RESIDENT Procedure Category Date Status Time Cpap Trial For Am ORDERS 04/16/24 Transmitted 09:15 Abg W/ Co-Ox RT 04/16/24 Logged 10:30 Extubate ANDRIA 04/16/24 In Process 10:45 Bipap/Cpap For Sleep RT 04/16/24 Logged Apnea 13:02 Abg W/ Co-Ox RT 04/16/24 Logged 13:45 Complete Blood Count LAB 04/17/24 Logged 04:00 Comprehensive LAB 04/17/24 Logged Metabolic Panel 04:00 Magnesium LAB 04/17/24 Logged 04:00 Abg W/ Co-Ox RT 04/17/24 Logged 05:38 Dietary Evaluation Review Comments: 1) If GI is accessible consider Nepro 1.8 @ 30 ml/hr goal rate as tolerated with current rate of propofol on board. 2) If pt remains NPO >7 days consider TPN to meet at least 75% of estimated needs 3) If pt continues to receive HD, advance pt diet when medically feasible to a Renal Standard diet modified per [employer]ST recommendations 4) If HD is discontinued and GFR is within normal range, advance pt diet to a Regular diet, modified per [employer] A[employer]ST recommendations 5)If HD is discontinued and GFR lies within STG 1-4, advance pt diet to a Renal Specific K2,lowphos,HECTOR,2gmNa,80gPro diet 6) If HD is discontinued and if GFR returns to normal levels then ALEXANDRA 1 pkt BID with meals may be considered to aid with wound healing 7) Continue current plan of care Expected Outcomes/Goals: 1) Pt to receive nutrition support within 7 days of NPO status 2) Pt labs to improve 3) Pt diet to advance 4) F/U in 2-3 days Date of Service: Apr 17, 2024 Billing Provider: LAURIE JONES MD Common Visit Codes: [id number] CARE 30-74 MIN, [id number] CARE-EACH +30MIN KEVON BLANTON RESIDENT Apr 17, 2024 07:09 LAURIE JONES MD Apr 20, 2024 15:34
[2024-04-17 08:18] LABS: Base Excess -1.2 mmol/L (-2.0-3.0)
--- NOTE | 2024-04-17 08:26 | DVHPN2 ---
Progress Note - Dictate Date Seen: Apr 17, 2024 Has the PT tested + for MRSA If YES, has PT been informed?: No Medical Necessity Reason Pt with a Central, PICC or Fol: Yes The following are medically ne: Central Line, Martines Catheter vital signs Vital Sign Date Time Temp Pulse Resp B/P (MAP) Pulse Ox O2 Delivery O2 Flow Rate FiO2 04/17/24 06:51 103 113/71 96 Facial BiPAP Mask 35 04/17/24 06:30 22 04/17/24 04:00 98.9 98.9 04/16/24 12:00 8 Total Intake and Output 04/16/24 04/16/24 04/17/24 15:00 23:00 07:00 Intake Total 368.125 ml 500 ml Output Total 1350 ml 550 ml Balance 368.125 ml -850 ml -550 ml medications Current Medications Medications Dose Ordered Sig/Destini Route Start Time Stop Time Status Last Admin Dose Admin Heparin Sodium/ Dextrose 250 ml @ 18 mls/hr [id number] IV 03/31/24 23:45 UNV Midazolam HCl 50 ml @ 1 mls/hr Q24H IV 04/01/24 01:30 04/12/24 20:07 6 MLS/HR Ondansetron HCl 4 mg Q4HP PRN IV 04/01/24 05:00 Acetaminophen 650 mg Q6HP PRN PO 04/01/24 05:00 04/15/24 17:07 650 MG Nitroglycerin 0.4 mg Q5MINP PRN SL 04/01/24 05:00 04/17/24 01:05 0.4 MG Albumin Human 100 ml @ 100 mls/hr KIRAN PRN IV 04/03/24 07:00 Norepinephrine Bitartrate 32 mg/ Sodium Chloride 250 ml @ 0.469 mls/ hr Q24H IV 04/04/24 06:30 04/08/24 17:08 0.938 MLS/HR Enteral Nutritional Formula 1,000 ml 20ML/HR GT 04/09/24 11:15 04/12/24 10:35 1,000 ML Sodium Chloride 10 ml QSHIFT@10,22 IV 04/09/24 22:00 04/16/24 21:43 10 ML Iron Sucrose 110 ml @ 110 mls/hr DAILY@1200 IV 04/10/24 12:00 04/16/24 12:30 110 MLS/HR Amiodarone HCl 200 mg Q12HR PO 04/10/24 22:00 UNV Amiodarone HCl 200 mg Q12HR PO 04/10/24 22:00 04/16/24 21:43 200 MG Phenylephrine HCl 80 mg/Sodium Chloride 250 ml @ 7.5 mls/hr Q24H IV 04/10/24 19:30 04/15/24 10:40 1.875 MLS/HR Fentanyl Citrate 250 ml @ 2.5 mls/hr Q24H IV 04/11/24 15:15 04/16/24 09:43 27.5 MLS/HR Nystatin 1 applic BID TOP 04/12/24 22:00 04/16/24 21:43 1 APPLIC Levofloxacin 50 ml @ 50 mls/hr DAILY IV 04/13/24 10:00 04/16/24 09:20 50 MLS/HR Dexmedetomidine HCl 400 mcg/ Dextrose 100 ml @ 6.05 mls/hr [id number] IV 04/13/24 15:45 04/15/24 11:06 21.175 MLS/HR Enoxaparin Sodium 40 mg DAILY SC 04/14/24 10:00 04/16/24 09:20 40 MG Bumetanide 1 mg DAILY IV 04/16/24 10:00 04/16/24 09:18 1 MG Dextrose 1,000 ml @ 100 mls/hr Q10H IV 04/16/24 11:00 Purified Water 200 ml Q6HR GT 04/16/24 12:00 04/16/24 23:36 200 ML Morphine Sulfate 1 mg Q4HP PRN IV 04/16/24 15:30 Albuterol 2.5 mg Q4HR NEB 04/16/24 18:00 04/17/24 06:49 2.5 MG Ipratropium [place] 0.5 mg Q4HR NEB 04/16/24 18:00 04/17/24 06:50 0.5 MG Budesonide 0.5 mg BID NEB 04/16/24 22:00 04/17/24 06:51 0.5 MG Lorazepam 0.5 mg Q6HP PRN IV 04/16/24 21:45 laboratory and microbiology Laboratory Tests 04/16/24 21:53 04/16/24 03:39 Test 04/16/24 21:53 Range/Units Serum Glucose 106 74-106 mg/dL Assessment/Plan s/p thoracoscopy and chest tube placement extubated Patient is a 68-year-old female who was transferred from [facility]. She originally presented to [facility] for shortness of breath ongoing for few days. She is intubated and is being managed in ICU. Information was obtained by reviewing the chart and communicating with staff. Reportedly, she presented with respiratory failure to [facility] (oxygen saturation was 88%) and over there was found to have white blood cell count of 26.6, hemoglobin of 11.1, creatinine of 5.6, potassium of 5.6 and troponin of 1.01. She was given 365 mg of aspirin in [facility]. She did have an episode of atrial fibrillation with RVR with questionable ST changes and was transferred to our facility for further care. She was also found to have right pleural effusion in [facility] and was diagnosed with non-STEMI. Intubated, on vent support. On pressure support. Obese. Mucosa is pale. Scattered rhonchi in the lungs is heard. Cardiac: Regular, no thrill/gallop. Abdomen is soft with increased bowel sounds. There is no gross mass. Extremities reveal 1+ edema bilaterally. Available past medical history includes obesity and questionable history of psoriasis. WBC: 25.3 - 23.7 - 20.2 - 20.5 - 17.6 - 18.4 - 19.2 - 19.4 - 22.2 - 16.4 - 16.1 - 19.5 - 14.7 - 12.3 - 9.8 - 10.0 - 8.3 - 9.2 - 10.2 - 11.4 Hemoglobin: 10.8 - 9.1 - 8.5 - 8.4 - 8.8 - 8.6 - 8.9 - 8.1 - 8.4 - 8.1 - 8.1 - 8.2 - 8.0 - 7.4 - 7.4 - 7.7 - 7.1 - 8.0 - 7.5 - 8.8 - 7.1 D-dimer: 3.62 Creatinine: 5.67 - 5.78 - 5.41 - 4.92 - 4.55 - 4.68 - 4.71 - 4.64 - 4.48 - 3.83 - 3.66 - 3.65 - 3.25 - 2.82 - 2.41 - 2.34 - 2.01 - 1.90 - 1.60 - 1.83 - 1.73 - 1.74 - 1.76 - 1.78 Potassium: 6.0 - 6.3 - 6.1 - 6.0 - 5.3 - 5.0 - 4.9 - 4.8 - 5.1 - 5.4 - 4.9 - 5.3 - 4.8 - 4.5 - 4.7 - 4.3 - 4.2 - 3.9 - 4.6 - 3.8 - 3.5 - 3.3 - 3.6 - 3.6 - 4.0 - 3.5 - 4.0 Lactic acid: 3.3 - 3.4 - 2.3 - 2.5 - 2.5 - 2.7 - 2.4 - 2.5 - 3.1 - 2.3 - 1.7 - 1.7 TSH: 1.71 BNP: 274.69 - 1944.81 - 373.79 Troponin (high sensitive): 1469 - 1515 - 1684 - 2467 - 221 Blood culture: positive Pleural fluid culture: E-coli Digoxin level: 2.09 Stool OB: positive Chest x-ray revealed: IMPRESSION: 1. Moderate right pleural effusion. 2. Cardiomegaly with mild pulmonary vascular congestion bilaterally. Repeat chest x-ray revealed: IMPRESSION: 1. Endotracheal tube and gastric tubes in place as described. 2. Right IJ central venous catheter projects over the lower SVC. 3. Mild cardiomegaly and prominence of the pulmonary vasculature. 4. Moderate to large right pleural effusion. Repeat chest x-ray revealed: IMPRESSION: Similar lung aeration with large right pleural effusion. No pneumothorax seen. Stable lines and tubes. Repeat chest x-ray revealed: IMPRESSION: Similar lung aeration with large right pleural effusion. No pneumothorax seen. Stable lines and tubes. Repeat chest xry revealed: Lines and tubes: ET in the mid thoracic trachea. NG crosses midline. Right CVC is stable. Left HD catheter projects over the mediastinum. Cardiomediastinal silhouette: Enlarged Pulmonary vasculature: prominent Lung expansion: low Lung airspace: patchy bilateral airspace opacity. Lung interstitium: normal Pleura: Similar large right effusion. Pneumothorax: no Bones: Unremarkable Other: no IMPRESSION: Lines and tubes, as above. Similar lung aeration bilaterally with a right pleural effusion and patchy airspace opacities. Repeat chest xry revealed: IMPRESSION: 1. Stable position of the support lines and tubes. 2. Interstitial and alveolar opacities. Repeat chest xry revealed: IMPRESSION: Unchanged multifocal airspace disease. Small to moderate right pleural effusion ; possibly loculated. Repeat chest xry revealed: IMPRESSION: Lines and tubes in satisfactory position. No significant interval change. Repeat chest xry revealed: IMPRESSION: 1. Support lines and tubes in appropriate position. 2. Pulmonary vascular congestion. 3. Bilateral pleural effusions, right greater than left. Repeat chest xry revealed: IMPRESSION: 1. Support lines and tubes in appropriate position. 2. Pulmonary vascular congestion. 3. Bilateral pleural effusions, right greater than left. Repeat chest xry revealed: IMPRESSION: Interval placement of right chest tube which projects deep into the right hilar region. Repeat chest xry revealed: IMPRESSION: No interval change Repeat chest xry revealed: Findings/IMPRESSION: Right IJ CVC terminating in the SVC. Endotracheal tube projected 5 cm superior to the mili. Enteric tube projected below the GE junction. Right-sided PICC projects terminating near the cavoatrial junction. Small bilateral pleural effusions and/or atelectasis with superimposed infection not excluded. Repeat chest xry revealed: MPRESSION: 1. Bilateral pleural effusions and airspace disease right greater than left. Repeat chest xry revealed: IMPRESSION: 1. Endotracheal tube terminates 6.0 cm above the mili, previously 3.1 cm above the mili. Otherwise, No significant interval change. Repeat chest xry revealed: IMPRESSION: 1. Endotracheal tube terminates 6.0 cm above the mili, previously 3.1 cm above the mili. Otherwise, No significant interval change. Repeat chest xry revealed: IMPRESSION: Lines and tubes in satisfactory position. No significant interval change. Repeat chest xry revealed: IMPRESSION: Lines and tubes in satisfactory position. No significant interval change. Repeat chest xry revealed: IMPRESSION: Lines and tubes in satisfactory position. No significant interval change. Repeat chest xry revealed: IMPRESSION: Lines and tubes in satisfactory position. No significant interval change. Renal ultrasound revealed: IMPRESSION: 1. Right kidney measures 13.4 cm. Decreased cortical thickness on the right. 2. Left kidney measures 10.2 cm. 3. No hydronephrosis on the right grade 1 hydronephrosis on the left. 4. Bilateral renal calculi. CT scan of the chest/abdomen and pelvis revealed: IMPRESSION: 1. Moderate partially loculated right pleural effusion and consolidations in the right middle and lower lobes which could be pneumonia and/or atelectasis. 2. Mild cardiomegaly, mild interstitial pulmonary edema, and body wall edema. 3. There is a 1.9 cm calculus in the right UPJ with mild right hydronephrosis 4. There is a 2.6 cm somewhat staghorn appearing calculus in the left renal pelvis and UPJ causing mild predominantly mid to lower pole left hydronephrosis. Mild soft tissue stranding about the left renal pelvis which could be due to obstruction or superimposed infection. Correlate with urinalysis. 5. Partial duplication of the left renal collecting system without hydronephrosis in the upper pole. 6. Moderate right perinephric, right retroperitoneal, and bilateral extraperitoneal pelvis low-density fluid and very mild left retroperitoneal low-density fluid. This could be fluid related to bilateral renal obstructions and forniceal ruptures versus evolved retroperitoneal hematoma. This is suboptimally evaluated without intravenous contrast. 7. Fluid-filled small and large bowel loops which may be physiologic or related to enterocolitis and could be manifesting as loose stools and/or diarrhea. 8. Prominent endometrium measuring at least 2.8 cm, suboptimally evaluated by CT. Recommend characterization with nonemergent pelvic ultrasound if clinically indicated. 9. Mild hepatosplenomegaly. 10. Moderate three-vessel calcified coronary artery disease and mild aortic valve calcification. 11. Right IJ central venous catheter in place terminating in the low SVC. 12. Small soft tissue stranding in the right supraclavicular neck which could be blood products. 13. Endotracheal tube terminates above the mili. CT of the head revealed: IMPRESSION: 1. No acute intracranial abnormality. 2. Generalized cerebral volume loss and mild chronic microvascular ischemic change. 3. Partially imaged endotracheal tube. Chest ultrasound revealed: Findings/Impression: There is a trace bilateral pleural effusion. Thoracentesis: FINDINGS: Moderate size, complex and septated right pleural effusion. Aspirated fluid is thick and green in consistency. IMPRESSION: Right thoracentesis with 250 mL removed for laboratory analysis. EKG in [facility] revealed sinus tachycardia, poor R-wave progression old inferior wall SD. later EKG revealed atrial fibrillation with RVR. Repeat EKGs questioned STEMI. but resolved later. Telemetry reveals sinus rhythm, occasions of A-fib with RVR, SVT Echocardiogram revealed: Technically limited study secondary to poor acoustic windows. Left ventricle: Left ventricle was normal-sized. Mild concentric left ventricular hypertrophy was seen. LVEF was 55-60%. No gross wall motion abnormality was observed, but its presence can not be ruled out on the basis of this study. Right ventricle is mildly dilated with normal systolic function. Left atrium was mildly dilated. Right atrium was normal-sized. Aortic valve was trileaflet. There was no aortic insufficiency. There was aortic sclerosis with no stenosis. There was trivial mitral/tricuspid regurgitation. Pulmonary valve was not well visualized. Right ventricular systolic pressure was assessed around 48 mm Hg. There was no pericardial effusion. Patient is a 68-year-old morbidly obese patient who presented with respiratory failure to the hospital. Presentation is in favor of sepsis/septic shock. Multiorgan failure is observed. She is intubated and on vent support. She is on multiple pressor support. Life findings are in favor of acute renal failure. She also is known to have nephrolithiasis with history of staghorn calculi. Cardiac-ceballos, the patient did have episode of atrial fibrillation with RVR. She is found to have increased troponin. Presentation questions non-STEMI and possibly type 2 ischemia. Recognizing the presentation, ischemic workup should be postponed after clinical stability (only if patient recovers higher brain function). Is being followed by Nephrology. Had episodes of tachyarrhythmia. Loaded with Digoxin. Positive cultures. Repeated a-fib with RVR. 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 Septic shock Multiorgan failure Acute respiratory failure on vent support Acute renal failure Nephrolithiasis Staghorn calculi Hydronephrosis Abnormal troponin, non-STEMI Atrial fibrillation with RVR Paroxysmal AFib Acute heart failure, diastolic Hepatosplenomegaly Pleural effusion Status post thoracentesis Morbid obesity s/p Cardioversion for A-fib with RVR s/p thoracoscopy and chest tube placement Cardiac suggestion for management: Manage in ICU Follow-up electrolytes and kidney function tests and correct abnormalities Pressure support to keep mean arterial pressure above 65 Amiodarone oral/O mg BID Daily aspirin (81 mg daily) Loaded with Digoxin Heparin drip for now s/p thoracoscopy and chest tube placement IV metoprolol PRN for a-fib with RVR episodes. Sepsis workup and management as per primary team Evaluation and management of respiratory failure as per primary team/Pulmonary Evaluation and management of nephrolithiasis/hydronephrosis as per primary/Urology Evaluation and management of acute renal failure as per Nephrology Further evaluation and management as per above and clinical course. A total of 75 minutes was spent reviewing the patient record, examining the patient, making a diagnostic and therapeutic plan, discussing this plan with medical personnel, following up on diagnostic studies and following the patient for clinical stability excluding any and all procedures. At least 50% of this time was spent in direct, [id number] contact. Thank you for allowing me to participate in this patient's care. Further recommendations will depend on patient's clinical course. Please do not hesitate to contact me if you have any questions or concerns. This medical document was created using electronic medical record system with [employer] computerized dictation system. Although this document has been carefully reviewed, there may still be some phonetic and typographical errors. These areas are purely typographical due to the imperfection of the software programs, and do not reflect any compromise in the patient's medical care. Dietary Evaluation Review Comments: 1) If GI is accessible consider Nepro 1.8 @ 30 ml/hr goal rate as tolerated with current rate of propofol on board. 2) If pt remains NPO >7 days consider TPN to meet at least 75% of estimated needs 3) If pt continues to receive HD, advance pt diet when medically feasible to a Renal Standard diet modified per RESEARCH SUPPORT SPECIALIST recommendations 4) If HD is discontinued and GFR is within normal range, advance pt diet to a Regular diet, modified per RESEARCH SUPPORT SPECIALIST recommendations 5)If HD is discontinued and GFR lies within STG 1-4, advance pt diet to a Renal Specific K2,lowphos,HECTOR,2gmNa,80gPro diet 6) If HD is discontinued and if GFR returns to normal levels then ALEXANDRA 1 pkt BID with meals may be considered to aid with wound healing 7) Continue current plan of care Expected Outcomes/Goals: 1) Pt to receive nutrition support within 7 days of NPO status 2) Pt labs to improve 3) Pt diet to advance 4) F/U in 2-3 days Plan discussed with: Other (nurse) HERMINIO JOHNSON MD Apr 17, 2024 08:26
[2024-04-17 09:02] LABS: Basophils # (auto) 0 10 ^3/uL (0-0.2); Basophils % (auto) 0.4 % (0.0-2.0); Eosinophils # (auto) 0 10 ^3/uL (0-0.8); Eosinophils % (auto) 0.4 % (0.0-7.0); Hematocrit 28.4 % (36.0-46.0); Lymphocytes % (auto) 9.3 % (10.0-50.0); Mean Corpuscular Hemoglobin 27.5 pg (28.0-32.0); Mean Corpuscular Hgb Conc. 31.6 g/dL (32.0-36.0); Mean Corpuscular Volume 86.9 fL (80.0-100.0); Monocytes # (auto) 0.4 10 ^3/uL (0-1.3); Neutrophils # (auto) 8.9 10 ^3/uL (1.6-8.6); Neutrophils % (auto) 85.9 % (37.0-80.0); Platelet Count (auto) 189 10^3/uL (140-450); Red Blood Cells 3.27 10^6/uL (4.0-5.20); White Blood Cell 10.3 10^3/uL (4.4-10.8)
[2024-04-17 09:19] LABS: Alanine Aminotransferase 40 U/L (7-40); Albumin 2.9 g/dL (3.2-4.8); Alkaline Phosphatase 90 U/L (46-116); Anion Gap 13 (5-15); Aspartate Aminotransferase 88 U/L (13-40); BUN/Creatinine Ratio 32.6 (10.0-20.0); Bilirubin, Total 0.4 mg/dL (0.2-1.0); Blood Urea Nitrogen 58 mg/dL (9-23); Calcium 8.1 mg/dL (8.7-10.4); Carbon Dioxide 23 mmol/L (20-31); Chloride 114 mmol/L (98-107); Glucose 108 mg/dL (74-106); Magnesium 2.4 mg/dL (1.6-2.6); Potassium 3.9 mmol/L (3.5-5.1); Sodium 150 mmol/L (136-145); Total Protein 5.7 g/dL (5.7-8.2)
[2024-04-17] MEDS: ANGIOMAX 250 MG VIAL IV ONE ×2 (09:24→10:26)
[2024-04-17] MEDS: SODIUM CHL 0.9% 50 ML ONE ×2 (09:24→10:26)
[2024-04-17] MEDS: LIDOCAINE 2%HCL (LOCAL ANESTH.) INJ 20ML MDV ONE (09:25)
[2024-04-17] MEDS: VERAPAMIL 2.5MG/ML INJ 2ML VIAL IV ONE (09:27)
[2024-04-17] MEDS: HEPARIN SODIUM (PORCINE) 5000 UNITS/ML 1ML VIAL IV ONE (09:30)
[2024-04-17] MEDS: ETOMIDATE (2MG/ML) 20ML VIAL IV ONE ×2 (09:31→11:15)
[2024-04-17] MEDS: ROCURONIUM 10MG/ML 10ML VIAL IV ONE (09:31)
[2024-04-17] MEDS: ASPirin 81 mg TAB ONE (09:31)
[2024-04-17] MEDS: HEPARIN SODIUM (PORCINE) 5000 UNITS/ML 1ML VIAL ONE ×2 (09:36→09:37)
[2024-04-17] MEDS: ASPirin 81 mg TAB PO ONE (09:36)
[2024-04-17] MEDS ORDERED: CLOPIDOGREL BISULFATE 75 MG TAB PO ONE (10:00)
[2024-04-17] MEDS: NOREPINEPHRINE 8 MG/250ML KIT 250 ML IV ONE (10:07)
--- NOTE | 2024-04-17 10:18 | DVHPN2 ---
Progress Note Date Seen: Apr 17, 2024 Has the PT tested + for MRSA If YES, has PT been informed?: No Medical Necessity Reason Pt with a Central, PICC or Fol: Yes The following are medically ne: Central Line, Martines Catheter Objective vital signs Vital Sign Date Time Temp Pulse Resp B/P (MAP) Pulse Ox O2 Delivery O2 Flow Rate FiO2 04/17/24 08:25 105 121/82 94 Facial BiPAP Mask 35 04/17/24 06:30 22 04/17/24 04:00 98.9 98.9 04/16/24 12:00 8 Total Intake and Output 04/16/24 04/16/24 04/17/24 15:00 23:00 07:00 Intake Total 368.125 ml 500 ml Output Total 1350 ml 550 ml Balance 368.125 ml -850 ml -550 ml medications Current Medications Medications Dose Ordered Sig/Destini Route Start Time Stop Time Status Last Admin Dose Admin Heparin Sodium/ Dextrose 250 ml @ 18 mls/hr [id number] IV 03/31/24 23:45 UNV Midazolam HCl 50 ml @ 1 mls/hr Q24H IV 04/01/24 01:30 04/12/24 20:07 6 MLS/HR Ondansetron HCl 4 mg Q4HP PRN IV 04/01/24 05:00 Acetaminophen 650 mg Q6HP PRN PO 04/01/24 05:00 04/15/24 17:07 650 MG Nitroglycerin 0.4 mg Q5MINP PRN SL 04/01/24 05:00 04/17/24 01:05 0.4 MG Albumin Human 100 ml @ 100 mls/hr KIRAN PRN IV 04/03/24 07:00 Norepinephrine Bitartrate 32 mg/ Sodium Chloride 250 ml @ 0.469 mls/ hr Q24H IV 04/04/24 06:30 04/08/24 17:08 0.938 MLS/HR Enteral Nutritional Formula 1,000 ml 20ML/HR GT 04/09/24 11:15 04/12/24 10:35 1,000 ML Sodium Chloride 10 ml QSHIFT@10,22 IV 04/09/24 22:00 04/16/24 21:43 10 ML Iron Sucrose 110 ml @ 110 mls/hr DAILY@1200 IV 04/10/24 12:00 04/16/24 12:30 110 MLS/HR Amiodarone HCl 200 mg Q12HR PO 04/10/24 22:00 UNV Amiodarone HCl 200 mg Q12HR PO 04/10/24 22:00 04/16/24 21:43 200 MG Phenylephrine HCl 80 mg/Sodium Chloride 250 ml @ 7.5 mls/hr Q24H IV 04/10/24 19:30 04/15/24 10:40 1.875 MLS/HR Fentanyl Citrate 250 ml @ 2.5 mls/hr Q24H IV 04/11/24 15:15 04/16/24 09:43 27.5 MLS/HR Nystatin 1 applic BID TOP 04/12/24 22:00 04/16/24 21:43 1 APPLIC Levofloxacin 50 ml @ 50 mls/hr DAILY IV 04/13/24 10:00 04/16/24 09:20 50 MLS/HR Dexmedetomidine HCl 400 mcg/ Dextrose 100 ml @ 6.05 mls/hr [id number] IV 04/13/24 15:45 04/15/24 11:06 21.175 MLS/HR Enoxaparin Sodium 40 mg DAILY SC 04/14/24 10:00 04/16/24 09:20 40 MG Bumetanide 1 mg DAILY IV 04/16/24 10:00 04/16/24 09:18 1 MG Dextrose 1,000 ml @ 100 mls/hr Q10H IV 04/16/24 11:00 Purified Water 200 ml Q6HR GT 04/16/24 12:00 04/16/24 23:36 200 ML Morphine Sulfate 1 mg Q4HP PRN IV 04/16/24 15:30 Albuterol 2.5 mg Q4HR NEB 04/16/24 18:00 04/17/24 06:49 2.5 MG Ipratropium [place] 0.5 mg Q4HR NEB 04/16/24 18:00 04/17/24 06:50 0.5 MG Budesonide 0.5 mg BID NEB 04/16/24 22:00 04/17/24 06:51 0.5 MG Lorazepam 0.5 mg Q6HP PRN IV 04/16/24 21:45 laboratory and microbiology Laboratory Tests 04/17/24 08:32 Test 04/17/24 08:32 Range/Units Serum Glucose 108 H 74-106 mg/dL Problem List/Assessment/Plan Problem List/Assessment/Plan 04/04/24I was just notified by anesthesiologists that they were evaluating the patient in the ICU and that she just became hemodynamically unstable and is being dialysed, the plan is to cardiovert her later this PM, I will cancel operation for today, it is also very likely that her sepsis is not due t othe pleural effusion but rather the hydronephrosis and superimposed urinary infection. 04/07/24 according to patient is now stable enough to undergo evacuation of empyema left chest, fluid grew enteric organisms, will attempt thoracoscopy but most likely will need a thoracotomy tomorrow AM.; I had previously explained the procedure and its attendant possible complications to pt's daughter 04/10/24 POST STABLE,CHEST X RAY REVIEWED, CHEST TUBE WITH MINIMAL TO MODERATE PURULENT OUTPUT, NO AIR LEAK, CONTINUE IS 04/11/24 essentially unchanged , chest tube with serosanguineous drainage, still needing BP support, good urine output 04/15/24 off sedation on ventilator, chest tube without air leak, lungs fully expanded, small persistent effusion on right. still needs BP support, WBC normal, h/h stable 04/17/24 chest tube without air leak, small amount of non purulent output, "surgically "stable, will sign off, please recall if needed Plan discussed with: Other Dietary Evaluation Review Comments: 1) If GI is accessible consider Nepro 1.8 @ 30 ml/hr goal rate as tolerated with current rate of propofol on board. 2) If pt remains NPO >7 days consider TPN to meet at least 75% of estimated needs 3) If pt continues to receive HD, advance pt diet when medically feasible to a Renal Standard diet modified per BUSINESS SUPERVISOR recommendations 4) If HD is discontinued and GFR is within normal range, advance pt diet to a Regular diet, modified per BUSINESS SUPERVISOR recommendations 5)If HD is discontinued and GFR lies within STG 1-4, advance pt diet to a Renal Specific K2,lowphos,HECTOR,2gmNa,80gPro diet 6) If HD is discontinued and if GFR returns to normal levels then ALEXANDRA 1 pkt BID with meals may be considered to aid with wound healing 7) Continue current plan of care Expected Outcomes/Goals: 1) Pt to receive nutrition support within 7 days of NPO status 2) Pt labs to improve 3) Pt diet to advance 4) F/U in 2-3 days SANTY HAZEL MD Apr 17, 2024 10:18
[2024-04-17] MEDS: EPTIFIBATIDE DRIP(0.75MG/ML) 100 ML IV ONE (10:29)
[2024-04-17] MEDS: IODIXANOL 320MG/ML 100ML BTL IV ONE (10:30)
[2024-04-17] MEDS: CLOPIDOGREL BISULFATE 75 MG TAB ONE (11:19)
--- NOTE | 2024-04-17 11:48 | DVHOP2 ---
Operative Report Procedures performed: Left heart catheterization and bilateral coronary angiogram Balloon angioplasty of mid LAD ROLL UP HELPER Diagnosis: One-vessel coronary artery disease ROLL UP HELPER of mid LAD Attempted to open up the LAD ROLL UP HELPER, partially/minimally successful (status post balloon angioplasty) LVEF of 25% (dilated LV) Cardiac suggestion for management: Dual antiplatelet therapy (loaded with aspirin and Plavix) Guideline directed medical therapy for systolic heart failure Life vest Findings: Dilated LV LVEF of 25% LVEDP of 11 mm Hg There was no transaortic valve pressure gradient Left main: Left main was coming off the left sinus of Valsalva. There was no angiographic disease in left main. LCX: LCX was coming off the left main. It was free of disease. LAD: LAD was coming off the left main. Proximal LAD had mild disease 1st diagonal was medium to large size with no flow-limiting lesion. Mid LAD was ROLL UP HELPER. Attempted to open the ROLL UP HELPER. We did find 2nd diagonal which was also large. The LAD and diagonal were full of thrombus. RCA: RCA is coming off the right sinus of Valsalva. It was a dominant vessel and provided RPDA. It had [id number] diffuse disease. Mid RCA had 50% lesion. Presentation: Patient is a 68-year-old female who presented around 16 days ago from another facility for multiorgan failure (respiratory failure, acute renal f ailure, septic shock, empyema and non-STEMI). Did have episodes of paroxysmal AFib and V-tach. Was treated for comorbidities. After extubation the patient had shortness of breath and EKG revealed questionable anterior wall STEMI. Repeat EKG remained the same and decision was made to bring the patient for cardiac catheterization. Procedure: After obtaining informed consent (communicated with the patient's next of kin: daughter) patient was brought to director of labor and delivery. Patient was intubated prior to arrival to director of labor and delivery (in ICU). Right femoral artery was used for access. Using modified Seldinger technique and under fluoroscopy guidance, the right femoral artery was accessed. We did use micropuncture. Micropuncture sheath was exchanged over wire to the regular six Ethiopian sheath. Angiography revealed good access point in femoral artery. Left coronary angiography revealed ROLL UP HELPER of mid LAD. Decision was made to attempt its management. Patient was started on Angiomax and six Ethiopian XB 3.5 guiding catheter was used to access the left coronary system. At 1st we put a wire in the 1st diagonal and using wire through balloon technique, we crossed into the mid/distal portions of LAD. We recognized significant amount of thrombus. We did repeated ballooning. We did put another wire in the D2 also. We did attempt thrombectomy (no significant thrombus came out). We did recognize dilated LV and recognizing the amount of thrombus we decided not to proceed with deploying any stent. BRITTNEY flow was 0 before starting any intervention (LAD). Post intervention, BRITTNEY flow remained BRITTNEY one flow in LAD and diagonal. Final angiography did not reveal an y perforation/complication. 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 Femoral artery access was managed by deploying an Angio-Seal device. Fluoroscopy time: 28.9 minutes contrast: 320 mL of Visipaque HERMINIO JOHNSON MD Apr 17, 2024 11:48
[2024-04-17 12:26] LABS: Base Excess -4.6 mmol/L (-2.0-3.0)
--- NOTE | 2024-04-17 13:35 | DVH ---
EXAM: XY CHEST PORTABLE Indication:INTUBATED/STEMI Technique: Single frontal view of the chest was obtained Comparison: XY CHEST PORTABLE on DOS: 04/17/24, XY CHEST XRAY 1 VIEW on DOS: 04/16/24, XY CHEST STEPHANY BLE on DOS: 04/15/24, XY CHEST PORTABLE on DOS: 04/14/24, XY CHEST PORTABLE on DOS: 04/13/24, XY CHES T PORTABLE on DOS: 04/17/24 FINDINGS: Lines and Tubes: Right PICC and enteric catheter and right chest tube in satisfactory position. Endot sussy tube projects 3.8 cm above the level of the mili. Lungs: Bibasilar opacities. Pleura: Possible small right pleural effusion. No pneumothorax. Cardiomediastinal contours: Unremarkable Bones: Unremarkable IMPRESSION: Endotracheal tube projects in appropriate position. Otherwise no significant change.
--- NOTE | 2024-04-17 13:54 | DVHPN2 ---
Progress Note Date Seen: Apr 17, 2024 Has the PT tested + for MRSA If YES, has PT been informed?: No Medical Necessity Reason Pt with a Central, PICC or Fol: Yes The following are medically ne: Central Line, Mart[place] Catheter Subjective Review of Systems: RESPIRATORY:Abnormal Other Systems: Patient seen and examined by myself today in follow-up Patient remained intubated on ventilator Objective vital signs Vital Sign Date Time Temp Pulse Resp B/P (MAP) Pulse Ox O2 Delivery O2 Flow Rate FiO2 04/17/24 12:30 82 19 110/59 (76) 96 30 04/17/24 08:25 Facial BiPAP Mask 04/17/24 04:00 98.9 98.9 04/16/24 12:00 8 Total Intake and Output 04/16/24 04/16/24 04/17/24 15:00 23:00 07:00 Intake Total 368.125 ml 500 ml Output Total 1350 ml 550 ml Balance 368.125 ml -850 ml -550 ml medications Current Medications Medications Dose Ordered Sig/Destini Route Start Time Stop Time Status Last Admin Dose Admin Heparin Sodium/ Dextrose 250 ml @ 18 mls/hr [id number] IV 03/31/24 23:45 UNV Midazolam HCl 50 ml @ 1 mls/hr Q24H IV 04/01/24 01:30 04/12/24 20:07 6 MLS/HR Ondansetron HCl 4 mg Q4HP PRN IV 04/01/24 05:00 Acetaminophen 650 mg Q6HP PRN PO 04/01/24 05:00 04/15/24 17:07 650 MG Nitroglycerin 0.4 mg Q5MINP PRN SL 04/01/24 05:00 04/17/24 01:05 0.4 MG Albumin Human 100 ml @ 100 mls/hr KIRAN PRN IV 04/03/24 07:00 Norepinephrine Bitartrate 32 mg/ Sodium Chloride 250 ml @ 0.469 mls/ hr Q24H IV 04/04/24 06:30 04/08/24 17:08 0.938 MLS/HR Enteral Nutritional Formula 1,000 ml 20ML/HR GT 04/09/24 11:15 04/12/24 10:35 1,000 ML Sodium Chloride 10 ml QSHIFT@ IV 04/09/24 22:00 04/16/24 21:43 10 ML Iron Sucrose 110 ml @ 110 mls/hr DAILY@1200 IV 04/10/24 12:00 04/17/24 12:00 110 MLS/HR Amiodarone HCl 200 mg Q12HR PO 04/10/24 22:00 UNV Amiodarone HCl 200 mg Q12HR PO 04/10/24 22:00 04/16/24 21:43 200 MG Phenylephrine HCl 80 mg/Sodium Chloride 250 ml @ 7.5 mls/hr Q24H IV 04/10/24 19:30 04/15/24 10:40 1.875 MLS/HR Fentanyl Citrate 250 ml @ 2.5 mls/hr Q24H IV 04/11/24 15:15 04/16/24 09:43 27.5 MLS/HR Nystatin 1 applic BID TOP 04/12/24 22:00 04/16/24 21:43 1 APPLIC Levofloxacin 50 ml @ 50 mls/hr DAILY IV 04/13/24 10:00 04/16/24 09:20 50 MLS/HR Dexmedetomidine HCl 400 mcg/ Dextrose 100 ml @ 6.05 mls/hr [id number] IV 04/13/24 15:45 04/15/24 11:06 21.175 MLS/HR Enoxaparin Sodium 40 mg DAILY SC 04/14/24 10:00 Hold 04/16/24 09:20 40 MG Bumetanide 1 mg DAILY IV 04/16/24 10:00 04/16/24 09:18 1 MG Dextrose 1,000 ml @ 100 mls/hr Q10H IV 04/16/24 11:00 Purified Water 200 ml Q6HR GT 04/16/24 12:00 04/17/24 12:00 200 ML Morphine Sulfate 1 mg Q4HP PRN IV 04/16/24 15:30 Albuterol 2.5 mg Q4HR NEB 04/16/24 18:00 04/17/24 06:49 2.5 MG Ipratropium [place] 0.5 mg Q4HR NEB 04/16/24 18:00 04/17/24 06:50 0.5 MG Budesonide 0.5 mg BID NEB 04/16/24 22:00 04/17/24 06:51 0.5 MG Lorazepam 0.5 mg Q6HP PRN IV 04/16/24 21:45 Heparin Sodium/ Dextrose 250 ml @ 10 mls/hr Q24H IV 04/17/24 11:30 Clopidogrel Bisulfate 75 mg DAILY PO 04/18/24 10:00 Examination: LUNGS:Normal, CVS:Normal, MSK:Normal laboratory and microbiology Laboratory Tests 04/17/24 08:32 Test 04/17/24 08:32 Range/Units Serum Glucose 108 H 74-106 mg/dL Microbiology Date/Time Source Procedure Growth Status 04/09/24 13:10 Blood Blood Culture - Final NO GROWTH AFTER 5 DAYS OF INCUBATION. Complete 04/08/24 08:02 Thoracic Fluid Gram Stain - Final Complete 04/08/24 08:02 Thoracic Fluid Anaerobic Culture - Final Complete 04/08/24 08:02 Thoracic Fluid Aerobic Culture - Final Complete 04/07/24 07:44 Urine - [place] Urine Culture - Final Complete 04/01/24 11:19 Nose MRSA Screen - Final Complete 03/31/24 22:55 Sputum Endotracheal Wash Gram Stain - Final Complete 03/31/24 22:55 Sputum Endotracheal Wash Respiratory Culture - Final Complete Problem List/Assessment/Plan Problem List/Assessment/Plan Acute kidney injury due to ATN/hemodynamic from shock, status post intermittent hemodialysis Acute respiratory failure, intubated on ventilator NSTEMI septic shock empyema metabolic acidosis resolved b/l renal stones w/ hydronephrosis morbid obesity hyperkalemia, resolved Hypernatremia due to insensible water loss afib RVR Hypokalemia Recommendations Kidney function is continuing to improve off hemodialysis Increased urine output Hold diuresis IV pressors for blood pressure support Strict I&Os IV antibiotics IVF D5W at 150 cc/hour KCL replacement free water down NG tube Urology consult We will continue to follow Plan discussed with: Other (Nurse) Dietary Evaluation Review Comments: 1) If GI is accessible consider Nepro 1.8 @ 30 ml/hr goal rate as tolerated with current rate of propofol on board. 2) If pt remains NPO >7 days consider TPN to meet at least 75% of estimated needs 3) If pt continues to receive HD, advance pt diet when medically feasible to a Renal Standard diet modified per [employer] recommendations 4) If HD is discontinued and GFR is within normal range, advance pt diet to a Regular diet, modified per [employer] recommendations 5)If HD is discontinued and GFR lies within STG 1-4, advance pt diet to a Renal Specific K2,lowphos,HECTOR,2gmNa,80gPro diet 6) If HD is discontinued and if GFR returns to normal levels then ALEXANDRA 1 pkt BID with meals may be considered to aid with wound healing 7) Continue current plan of care Expected Outcomes/Goals: 1) Pt to receive nutrition support within 7 days of NPO status 2) Pt labs to improve 3) Pt diet to advance 4) F/U in 2-3 days SWETA CHAND MD Apr 17, 2024 13:54
[2024-04-17] MEDS: D5W 5% 1,000 ML IV SCH (14:00)
[2024-04-17] MEDS: HEPARIN DRIP/D5W 100UNITS/ML 250 ML IV SCH ×2 (15:18→22:43)
[2024-04-17 15:23] LABS: Basophils # (auto) 0.1 10 ^3/uL (0-0.2); Basophils % (auto) 0.4 % (0.0-2.0); Eosinophils # (auto) 0.1 10 ^3/uL (0-0.8); Hematocrit 29.3 % (36.0-46.0); Hemoglobin 8.9 g/dL (12.2-16.2); Lymphocytes # (auto) 1.3 10 ^3/uL (0.4-5.4); Lymphocytes % (auto) 10.6 % (10.0-50.0); Mean Corpuscular Hemoglobin 26.8 pg (28.0-32.0); Mean Corpuscular Hgb Conc. 30.5 g/dL (32.0-36.0); Mean Corpuscular Volume 87.9 fL (80.0-100.0); Monocytes # (auto) 0.7 10 ^3/uL (0-1.3); Monocytes % (auto) 5.5 % (0.0-12.0); Neutrophils # (auto) 9.9 10 ^3/uL (1.6-8.6); Neutrophils % (auto) 82.5 % (37.0-80.0); Platelet Count (auto) 225 10^3/uL (140-450); Red Blood Cells 3.33 10^6/uL (4.0-5.20); Red Cell Distribution Width 25.2 % (11.8-14.3)
[2024-04-17 15:41] LABS: INR 1.79 (0.9-1.15); Prothrombin Time 18.2 sec (9.3-11.8)
--- NOTE | 2024-04-17 17:59 | DVHNC2 ---
Intubation Indication: Respiratory Insufficiency Prep: Preoxygenation Pretreated with: Analgesia, Sedation Medicated with: Other (ethomidate and rocuronium) Intubation Approach: Orotracheal Intubation size: cm (22) Informed consent obtained: Yes Risks/benefits/alt described: Yes Date of Service: Apr 17, 2024 Billing Provider: LAURIE JONES MD Common Visit Codes: PROCEDURE ONLY Procedure Codes: 38180-[id number] KEVON BLANTON Apr 17, 2024 17:59 LAURIE JONES MD Apr 20, 2024 15:32
[2024-04-17 22:23] LABS: INR 1.25 (0.9-1.15); Partial Thromboplastin Time 43.9 SEC (24.5-34.5)
[2024-04-18] VITALS (108 sets, daily range): BP systolic 81–125; BP diastolic 46–75; PULSE 88–109; RESP 20–33; TEMP 97.3–99; O2SAT 94–97
[2024-04-18 04:51] LABS: Basophils # (auto) 0.1 10 ^3/uL (0-0.2); Basophils % (auto) 0.8 % (0.0-2.0); Eosinophils # (auto) 0.3 10 ^3/uL (0-0.8); Eosinophils % (auto) 2.1 % (0.0-7.0); Hematocrit 28.3 % (36.0-46.0); Lymphocytes # (auto) 1.6 10 ^3/uL (0.4-5.4); Lymphocytes % (auto) 11.4 % (10.0-50.0); Mean Corpuscular Hemoglobin 27.9 pg (28.0-32.0); Mean Corpuscular Hgb Conc. 31.8 g/dL (32.0-36.0); Mean Corpuscular Volume 87.6 fL (80.0-100.0); Monocytes % (auto) 7.1 % (0.0-12.0); Neutrophils # (auto) 10.9 10 ^3/uL (1.6-8.6); Neutrophils % (auto) 78.6 % (37.0-80.0); Nucleated Red Blood Cells % 0.2 %; Platelet Count (auto) 239 10^3/uL (140-450); Red Blood Cells 3.24 10^6/uL (4.0-5.20); Red Cell Distribution Width 24.5 % (11.8-14.3); White Blood Cell 13.8 10^3/uL (4.4-10.8)
[2024-04-18 05:00] LABS: INR 1.17 (0.9-1.15); Partial Thromboplastin Time 39.4 SEC (24.5-34.5); Prothrombin Time 12.3 sec (9.3-11.8)
[2024-04-18 05:06] LABS: Alanine Aminotransferase 52 U/L (7-40); Albumin 3.1 g/dL (3.2-4.8); Alkaline Phosphatase 96 U/L (46-116); Anion Gap 14 (5-15); Aspartate Aminotransferase 218 U/L (13-40); BUN/Creatinine Ratio 28.6 (10.0-20.0); Bilirubin, Total 0.4 mg/dL (0.2-1.0); Blood Urea Nitrogen 52 mg/dL (9-23); Carbon Dioxide 22 mmol/L (20-31); Chloride 113 mmol/L (98-107); Glucose 111 mg/dL (74-106); Magnesium 2.4 mg/dL (1.6-2.6); Phosphorus 4.1 mg/dL (2.4-5.1); Potassium 3.7 mmol/L (3.5-5.1); Sodium 149 mmol/L (136-145); Total Protein 6.1 g/dL (5.7-8.2)
[2024-04-18 05:20] LABS: Calcium 8.3 mg/dL (8.7-10.4)
[2024-04-18] MEDS: HEPARIN DRIP/D5W 100UNITS/ML 250 ML IV SCH (05:30)
--- NOTE | 2024-04-18 05:58 | DVH ---
EXAM: XY CHEST XRAY 1 VIEW Indication:reevaluate Technique: Single frontal view of the chest was obtained Comparison: XY CHEST PORTABLE on DOS: 04/17/24, XY CHEST PORTABLE on DOS: 04/17/24, XY CHEST XRAY 1 V IEW on DOS: 04/16/24, XY CHEST PORTABLE on DOS: 04/15/24, XY CHEST PORTABLE on DOS: 04/14/24, XY CHES T PORTABLE on DOS: 04/17/24 FINDINGS: Lines and Tubes: Right PICC and enteric catheter and right chest tube in satisfactory position. Endot sussy tube projects 3.8 cm above the level of the mili. Lungs: Bibasilar opacities. Pleura: Possible small right pleural effusion. No pneumothorax. Cardiomediastinal contours: Unremarkable Bones: Unremarkable IMPRESSION: Endotracheal tube projects in appropriate position. Otherwise no significant change.
--- NOTE | 2024-04-18 06:49 | DVHPN2 ---
Progress Note - Dictate Date Seen: Apr 18, 2024 Has the PT tested + for MRSA If YES, has PT been informed?: No Medical Necessity Reason Pt with a Central, PICC or Fol: Yes The following are medically ne: Central Line, Martines Catheter vital signs Vital Sign Date Time Temp Pulse Resp B/P (MAP) Pulse Ox O2 Delivery O2 Flow Rate FiO2 04/18/24 06:22 92 23 98/54 (69) 96 30 04/18/24 06:00 Mechanical Ventilator+ 04/18/24 04:00 98.8 98.8 04/16/24 12:00 8 Total Intake and Output 04/17/24 04/17/24 04/18/24 15:00 23:00 07:00 Intake Total 86.5 ml 927.872 ml 628.690 ml Output Total 450 ml 400 ml Balance 86.5 ml 477.872 ml 228.690 ml medications Current Medications Medications Dose Ordered Sig/Destini Route Start Time Stop Time Status Last Admin Dose Admin Heparin Sodium/ Dextrose 250 ml @ 18 mls/hr [id number] IV 03/31/24 23:45 UNV Midazolam HCl 50 ml @ 1 mls/hr Q24H IV 04/01/24 01:30 04/18/24 04:00 10 MLS/HR Ondansetron HCl 4 mg Q4HP PRN IV 04/01/24 05:00 Acetaminophen 650 mg Q6HP PRN PO 04/01/24 05:00 04/15/24 17:07 650 MG Nitroglycerin 0.4 mg Q5MINP PRN SL 04/01/24 05:00 04/17/24 01:05 0.4 MG Albumin Human 100 ml @ 100 mls/hr KIRAN PRN IV 04/03/24 07:00 Norepinephrine Bitartrate 32 mg/ Sodium Chloride 250 ml @ 0.469 mls/ hr Q24H IV 04/04/24 06:30 04/17/24 18:43 4.688 MLS/HR Enteral Nutritional Formula 1,000 ml 20ML/HR GT 04/09/24 11:15 04/12/24 10:35 1,000 ML Sodium Chloride 10 ml QSHIFT@10,22 IV 04/09/24 22:00 04/17/24 21:45 10 ML Iron Sucrose 110 ml @ 110 mls/hr DAILY@1200 IV 04/10/24 12:00 04/17/24 12:00 110 MLS/HR Amiodarone HCl 200 mg Q12HR PO 04/10/24 22:00 UNV Amiodarone HCl 200 mg Q12HR PO 04/10/24 22:00 04/17/24 21:44 200 MG Phenylephrine HCl 80 mg/Sodium Chloride 250 ml @ 7.5 mls/hr Q24H IV 04/10/24 19:30 04/15/24 10:40 1.875 MLS/HR Fentanyl Citrate 250 ml @ 2.5 mls/hr Q24H IV 04/11/24 15:15 04/18/24 03:30 12.5 MLS/HR Nystatin 1 applic BID TOP 04/12/24 22:00 04/17/24 21:45 1 APPLIC Levofloxacin 50 ml @ 50 mls/hr DAILY IV 04/13/24 10:00 04/16/24 09:20 50 MLS/HR Dexmedetomidine HCl 400 mcg/ Dextrose 100 ml @ 6.05 mls/hr [id number] IV 04/13/24 15:45 04/15/24 11:06 21.175 MLS/HR Enoxaparin Sodium 40 mg DAILY SC 04/14/24 10:00 Hold 04/16/24 09:20 40 MG Bumetanide 1 mg DAILY IV 04/16/24 10:00 04/16/24 09:18 1 MG Purified Water 200 ml Q6HR GT 04/16/24 12:00 04/18/24 06:13 200 ML Morphine Sulfate 1 mg Q4HP PRN IV 04/16/24 15:30 Albuterol 2.5 mg Q4HR NEB 04/16/24 18:00 04/18/24 06:22 2.5 MG Ipratropium [place] 0.5 mg Q4HR NEB 04/16/24 18:00 04/18/24 06:22 0.5 MG Budesonide 0.5 mg BID NEB 04/16/24 22:00 04/18/24 06:22 0.5 MG Lorazepam 0.5 mg Q6HP PRN IV 04/16/24 21:45 Clopidogrel Bisulfate 75 mg DAILY PO 04/18/24 10:00 Dextrose 1,000 ml @ 150 mls/hr Q6H40M IV 04/17/24 14:00 Heparin Sodium/ Dextrose 250 ml @ 14 mls/hr [id number] IV 04/18/24 05:30 laboratory and microbiology Laboratory Tests 04/18/24 03:32 Test 04/18/24 03:32 Range/Units Serum Glucose 111 H 74-106 mg/dL Assessment/Plan There was question about EKG showing STEMI. Patient was intubated again by primary team and taken to Transportation Worker. s/p Cardiac cath Was found to have FINANCIAL AID OFFICER of mid LAD (considered old) with full of thrombus. s/p balloon angioplasty with minimal / partial result s/p thoracoscopy and chest tube placement extubated Patient is a 68-year-old female who was transferred from [facility]. She originally presented to [facility] for shortness of breath ongoing for few days. She is intubated and is being managed in ICU. Information was obtained by reviewing the chart and communicating with staff. Reportedly, she presented with respiratory failure to [facility] (oxygen saturation was 88%) and over there was found to have white blood cell count of 26.6, hemoglobin of 11.1, creatinine of 5.6, potassium of 5.6 and troponin of 1.01. She was given 365 mg of aspirin in [facility]. She did have an episode of atrial fibrillation with RVR with questionable ST changes and was transferred to our facility for further care. She was also found to have right pleural effusion in [facility] and was diagnosed with non-STEMI. Intubated, on vent support. Obese. Mucosa is pale. Scattered rhonchi in the lungs is heard. Cardiac: Regular, no thrill/gallop. Abdomen is soft with increased bowel sounds. There is no gross mass. Extremities reveal 1+ edema bilaterally. Available past medical history includes obesity and questionable history of psoriasis. WBC: 25.3 - 23.7 - 20.2 - 20.5 - 17.6 - 18.4 - 19.2 - 19.4 - 22.2 - 16.4 - 16.1 - 19.5 - 14.7 - 12.3 - 9.8 - 10.0 - 8.3 - 9.2 - 10.2 - 11.4 - 10.3 - 12.0 - 13.8 Hemoglobin: 10.8 - 9.1 - 8.5 - 8.4 - 8.8 - 8.6 - 8.9 - 8.1 - 8.4 - 8.1 - 8.1 - 8.2 - 8.0 - 7.4 - 7.4 - 7.7 - 7.1 - 8.0 - 7.5 - 8.8 - 7.1 - 9.0 - 8.9 - 9.0 D-dimer: 3.62 Creatinine: 5.67 - 5.78 - 5.41 - 4.92 - 4.55 - 4.68 - 4.71 - 4.64 - 4.48 - 3.83 - 3.66 - 3.65 - 3.25 - 2.82 - 2.41 - 2.34 - 2.01 - 1.90 - 1.60 - 1.83 - 1.73 - 1.74 - 1.76 - 1.78 - 1.82 Potassium: 6.0 - 6.3 - 6.1 - 6.0 - 5.3 - 5.0 - 4.9 - 4.8 - 5.1 - 5.4 - 4.9 - 5.3 - 4.8 - 4.5 - 4.7 - 4.3 - 4.2 - 3.9 - 4.6 - 3.8 - 3.5 - 3.3 - 3.6 - 3.6 - 4.0 - 3.5 - 4.0 - 3.7 Lactic acid: 3.3 - 3.4 - 2.3 - 2.5 - 2.5 - 2.7 - 2.4 - 2.5 - 3.1 - 2.3 - 1.7 - 1.7 TSH: 1.71 BNP: 274.69 - 1944.81 - 373.79 Troponin (high sensitive): 1511 - 9914 - 7812 - 7895 - 769 - 1621 Blood culture: positive Pleural fluid culture: E-coli Digoxin level: 2.09 Stool OB: positive Chest x-ray revealed: IMPRESSION: 1. Moderate right pleural effusion. 2. Cardiomegaly with mild pulmonary vascular congestion bilaterally. Repeat chest x-ray revealed: IMPRESSION: 1. Endotracheal tube and gastric tubes in place as described. 2. Right IJ central venous catheter projects over the lower SVC. 3. Mild cardiomegaly and prominence of the pulmonary vasculature. 4. Moderate to large right pleural effusion. Repeat chest x-ray revealed: IMPRESSION: Similar lung aeration with large right pleural effusion. No pneumothorax seen. Stable lines and tubes. Repeat chest x-ray revealed: IMPRESSION: Similar lung aeration with large right pleural effusion. No pneumothorax seen. Stable lines and tubes. Repeat chest xry revealed: Lines and tubes: ET in the mid thoracic trachea. NG crosses midline. Right CVC is stable. Left HD catheter projects over the mediastinum. Cardiomediastinal silhouette: Enlarged Pulmonary vasculature: prominent Lung expansion: low Lung airspace: patchy bilateral airspace opacity. Lung interstitium: normal Pleura: Similar large right effusion. Pneumothorax: no Bones: Unremarkable Other: no IMPRESSION: Lines and tubes, as above. Similar lung aeration bilaterally with a right pleural effusion and patchy airspace opacities. Repeat chest xry revealed: IMPRESSION: 1. Stable position of the support lines and tubes. 2. Interstitial and alveolar opacities. Repeat chest xry revealed: IMPRESSION: Unchanged multifocal airspace disease. Small to moderate right pleural effusion ; possibly loculated. Repeat chest xry revealed: IMPRESSION: Lines and tubes in satisfactory position. No significant interval change. Repeat chest xry revealed: IMPRESSION: 1. Support lines and tubes in appropriate position. 2. Pulmonary vascular congestion. 3. Bilateral pleural effusions, right greater than left. Repeat chest xry revealed: IMPRESSION: 1. Support lines and tubes in appropriate position. 2. Pulmonary vascular congestion. 3. Bilateral pleural effusions, right greater than left. Repeat chest xry revealed: IMPRESSION: Interval placement of right chest tube which projects deep into the right hilar region. Repeat chest xry revealed: IMPRESSION: No interval change Repeat chest xry revealed: Findings/IMPRESSION: Right IJ CVC terminating in the SVC. Endotracheal tube projected 5 cm superior to the mili. Enteric tube projected below the GE junction. Right-sided PICC projects terminating near the cavoatrial junction. Small bilateral pleural effusions and/or atelectasis with superimposed infection not excluded. Repeat chest xry revealed: MPRESSION: 1. Bilateral pleural effusions and airspace disease right greater than left. Repeat chest xry revealed: IMPRESSION: 1. Endotracheal tube terminates 6.0 cm above the mili, previously 3.1 cm above the mili. Otherwise, No significant interval change. Repeat chest xry revealed: IMPRESSION: 1. Endotracheal tube terminates 6.0 cm above the mili, previously 3.1 cm above the mili. Otherwise, No significant interval change. Repeat chest xry revealed: IMPRESSION: Lines and tubes in satisfactory position. No significant interval change. Repeat chest xry revealed: IMPRESSION: Lines and tubes in satisfactory position. No significant interval change. Repeat chest xry revealed: IMPRESSION: Lines and tubes in satisfactory position. No significant interval change. Repeat chest xry revealed: IMPRESSION: Lines and tubes in satisfactory position. No significant interval change. Repeat chest xry revealed: IMPRESSION: Endotracheal tube projects in appropriate position. Otherwise no significant change Renal ultrasound revealed: IMPRESSION: 1. Right kidney measures 13.4 cm. Decreased cortical thickness on the right. 2. Left kidney measures 10.2 cm. 3. No hydronephrosis on the right grade 1 hydronephrosis on the left. 4. Bilateral renal calculi. CT scan of the chest/abdomen and pelvis revealed: IMPRESSION: 1. Moderate partially loculated right pleural effusion and consolidations in the right middle and lower lobes which could be pneumonia and/or atelectasis. 2. Mild cardiomegaly, mild interstitial pulmonary edema, and body wall edema. 3. There is a 1.9 cm calculus in the right UPJ with mild right hydronephrosis 4. There is a 2.6 cm somewhat staghorn appearing calculus in the left renal pelvis and UPJ causing mild predominantly mid to lower pole left hydronephrosis. Mild soft tissue stranding about the left renal pelvis which could be due to obstruction or superimposed infection. Correlate with urinalysis. 5. Partial duplication of the left renal collecting system without hydronephrosis in the upper pole. 6. Moderate right perinephric, right retroperitoneal, and bilateral extraperitoneal pelvis low-density fluid and very mild left retroperitoneal low-density fluid. This could be fluid related to bilateral renal obstructions and forniceal ruptures versus evolved retroperitoneal hematoma. This is suboptimally evaluated without intravenous contrast. 7. Fluid-filled small and large bowel loops which may be physiologic or related to enterocolitis and could be manifesting as loose stools and/or diarrhea. 8. Prominent endometrium measuring at least 2.8 cm, suboptimally evaluated by CT. Recommend characterization with nonemergent pelvic ultrasound if clinically indicated. 9. Mild hepatosplenomegaly. 10. Moderate three-vessel calcified coronary artery disease and mild aortic valve calcification. 11. Right IJ central venous catheter in place terminating in the low SVC. 12. Small soft tissue stranding in the right supraclavicular neck which could be blood products. 13. Endotracheal tube terminates above the mili. CT of the head revealed: IMPRESSION: 1. No acute intracranial abnormality. 2. Generalized cerebral volume loss and mild chronic microvascular ischemic change. 3. Partially imaged endotracheal tube. Chest ultrasound revealed: Findings/Impression: There is a trace bilateral pleural effusion. Thoracentesis: FINDINGS: Moderate size, complex and septated right pleural effusion. Aspirated fluid is thick and green in consistency. IMPRESSION: Right thoracentesis with 250 mL removed for laboratory analysis. EKG in [facility] revealed sinus tachycardia, poor R-wave progression old inferior wall MA. later EKG revealed atrial fibrillation with RVR. Repeat EKGs questioned STEMI. but resolved later. Telemetry reveals sinus rhythm, occasions of A-fib with RVR, SVT Echocardiogram revealed: Technically limited study secondary to poor acoustic windows. Left ventricle: Left ventricle was normal-sized. Mild concentric left ventricular hypertrophy was seen. LVEF was 55-60%. No gross wall motion abnormality was observed, but its presence can not be ruled out on the basis of this study. Right ventricle is mildly dilated with normal systolic function. Left atrium was mildly dilated. Right atrium was normal-sized. Aortic valve was trileaflet. There was no aortic insufficiency. There was aortic sclerosis with no stenosis. There was trivial mitral/tricuspid regurgitation. Pulmonary valve was not well visualized. Right ventricular systolic pressure was assessed around 48 mm Hg. There was no pericardial effusion. Left heart cath revealed: One-vessel coronary artery disease, FINANCIAL AID OFFICER of mid LAD, Attempted to open up the LAD FINANCIAL AID OFFICER, partially/minimally successful (status post balloon angioplasty). LVEF of 25% (dilated LV). Cardiac suggestion for management: Dual antiplatelet therapy (loaded with aspirin and Plavix). Guideline directed medical therapy for systolic heart failure Patient is a 68-year-old morbidly obese patient who presented with respiratory failure to the hospital. Presentation is in favor of sepsis/septic shock. Multiorgan failure is observed. She is intubated and on vent support. She is on multiple pressor support. Life findings are in favor of acute renal failure. She also is known to have nephrolithiasis with history of staghorn calculi. Cardiac-ceballos, the patient did have episode of atrial fibrillation with RVR. She is found to have increased troponin. Presentation questions non-STEMI and possibly type 2 ischemia. Recognizing the presentation, ischemic workup should be postponed after clinical stability (only if patient recovers higher brain function). Is being followed by Nephrology. Had episodes of tachyarrhythmia. Loaded with Digoxin. Positive cultures. Repeated a-fib with RVR. Was evaluated by Interventional Cardiology ventilation mechanic for STEMI (not considered STEMI). As there was repeated EKG changes in favor of STEMI, patient was taken to chain puller: Was found to have FINANCIAL AID OFFICER of mid LAD (considered old) with full of thrombus. s/p balloon angioplasty with minimal / partial result Septic shock Multiorgan failure Acute respiratory failure on vent support Acute renal failure Nephrolithiasis Staghorn calculi Hydronephrosis Abnormal troponin, non-STEMI Atrial fibrillation with RVR Paroxysmal AFib Acute heart failure, diastolic Hepatosplenomegaly Pleural effusion Status post thoracentesis Morbid obesity s/p Cardioversion for A-fib with RVR s/p thoracoscopy and chest tube placement CAD: FINANCIAL AID OFFICER of mid LAD (considered old) with full of thrombus. s/p balloon angioplasty with minimal / partial result Cardiac suggestion for management: Manage in ICU Follow-up electrolytes and kidney function tests and correct abnormalities Pressure support to keep mean arterial pressure above 65 Amiodarone oral/O mg BID Daily aspirin (81 mg daily) Plavix: 75 mg daily Heparin drip for now If regains higher brain function: Life Vest s/p thoracoscopy and chest tube placement IV metoprolol PRN for a-fib with RVR episodes. Sepsis workup and management as per primary team Evaluation and management of respiratory failure as per primary team/Pulmonary Evaluation and management of nephrolithiasis/hydronephrosis as per primary/Urology Evaluation and management of acute renal failure as per Nephrology Further evaluation and management as per above and clinical course. A total of 75 minutes was spent reviewing the patient record, examining the patient, making a diagnostic and therapeutic plan, discussing this plan with medical personnel, following up on diagnostic studies and following the patient for clinical stability excluding any and all procedures. At least 50% of this time was spent in direct, [id number] contact. Thank you for allowing me to participate in this patient's care. Further recommendations will depend on patient's clinical course. Please do not hesitate to contact me if you have any questions or concerns. This medical document was created using electronic medical record system with [employer] computerized dictation system. Although this document has been carefully reviewed, there may still be some phonetic and typographical errors. These areas are purely typographical due to the imperfection of the software programs, and do not reflect any compromise in the patient's medical care. Dietary Evaluation Review Comments: 1) If GI is accessible consider Nepro 1.8 @ 30 ml/hr goal rate as tolerated with current rate of propofol on board. 2) If pt remains NPO >7 days consider TPN to meet at least 75% of estimated needs 3) If pt continues to receive HD, advance pt diet when medically feasible to a Renal Standard diet modified per CARDIOPULMONARY TECHNICIAN recommendations 4) If HD is discontinued and GFR is within normal range, advance pt diet to a Regular diet, modified per CARDIOPULMONARY TECHNICIAN recommendations 5)If HD is discontinued and GFR lies within STG 1-4, advance pt diet to a Renal Specific K2,lowphos,HECTOR,2gmNa,80gPro diet 6) If HD is discontinued and if GFR returns to normal levels then ALEXANDRA 1 pkt BID with meals may be considered to aid with wound healing 7) Continue current plan of care Expected Outcomes/Goals: 1) Pt to receive nutrition support within 7 days of NPO status 2) Pt labs to improve 3) Pt diet to advance 4) F/U in 2-3 days Plan discussed with: Other (nurse) HERMINIO JOHNSON MD Apr 18, 2024 06:49
[2024-04-18 07:04] LABS: Base Excess -3.1 mmol/L (-2.0-3.0)
--- NOTE | 2024-04-18 07:09 | DVHPNRES ---
Progress Note Date Seen: Apr 18, 2024 Resident Creating Document: KEVON BLANTON RESIDENT Has the PT tested + for MRSA If YES, has PT been informed?: No Medical Necessity Reason Pt with a Central, PICC or Fol: Yes The following are medically ne: Central Line, Martines Catheter Subjective Review of Systems This is a 68-year-old female with unknown past medical history who was transferred from another facility ([facility]) for higher level of care. The patient initially was treated at that facility for shortness of breaths and back pain. The patient was transferred to our facility for higher level of care. The patient on arrival to the ED was tachypneic with severe respiratory failure, tachycardic rhythm consistent with atrial fibrillation and was saturating in the 70s. Initially placed on non-rebreather mask and then emergently intubated to protect airway. The patient was started on amiodarone drip 1 milligram/minute, phenylephrine, vasopressin and levophed. Patient initially was started on broad-spectrum antibiotics with vancomycin and Zosyn but for renal protection, since GFR was less than 10 and to have a more broad- spectrum coverage we added meropenem and discontinued Zosyn. To the ICU for further assessment and management. Patient seen and examined at bedside. Patient is currently sedated with midazolam and fentanyl currently on minimal ventilatory settings: VT 500, RR 18, FiO2 30%, PEEP 5.0, saturating 96%. Patient is currently on heparin drip, Plavix 75 mg q.d., aspirin. Patient still requiring Levophed at 10 micrograms/minute. Right-sided chest tube is draining 10 cc in the last 12 hours. On auscultation bilateral lungs are grossly clear, patient is sinus tachycardic with a pedal edema of 2+. X-ray of the chest was reviewed showing right lower lobe opacities. ROS unable to obtain due to patient's current status. Intubation Objective vital signs Vital Sign Date Time Temp Pulse Resp B/P (MAP) Pulse Ox O2 Delivery O2 Flow Rate FiO2 04/18/24 06:22 92 23 98/54 (69) 96 30 04/18/24 06:00 Mechanical Ventilator+ 04/18/24 04:00 98.8 98.8 04/16/24 12:00 8 Total Intake and Output 04/17/24 04/17/24 04/18/24 15:00 23:00 07:00 Intake Total 86.5 ml 927.872 ml 628.690 ml Output Total 450 ml 400 ml Balance 86.5 ml 477.872 ml 228.690 ml medications Current Medications Medications Dose Ordered Sig/Destini Route Start Time Stop Time Status Last Admin Dose Admin Heparin Sodium/ Dextrose 250 ml @ 18 mls/hr [id number] IV 03/31/24 23:45 UNV Midazolam HCl 50 ml @ 1 mls/hr Q24H IV 04/01/24 01:30 04/18/24 04:00 10 MLS/HR Ondansetron HCl 4 mg Q4HP PRN IV 04/01/24 05:00 Acetaminophen 650 mg Q6HP PRN PO 04/01/24 05:00 04/15/24 17:07 650 MG Nitroglycerin 0.4 mg Q5MINP PRN SL 04/01/24 05:00 04/17/24 01:05 0.4 MG Albumin Human 100 ml @ 100 mls/hr KIRAN PRN IV 04/03/24 07:00 Norepinephrine Bitartrate 32 mg/ Sodium Chloride 250 ml @ 0.469 mls/ hr Q24H IV 04/04/24 06:30 04/17/24 18:43 4.688 MLS/HR Enteral Nutritional Formula 1,000 ml 20ML/HR GT 04/09/24 11:15 04/12/24 10:35 1,000 ML Sodium Chloride 10 ml QSHIFT@10,22 IV 04/09/24 22:00 04/17/24 21:45 10 ML Iron Sucrose 110 ml @ 110 mls/hr DAILY@1200 IV 04/10/24 12:00 04/17/24 12:00 110 MLS/HR Amiodarone HCl 200 mg Q12HR PO 04/10/24 22:00 UNV Amiodarone HCl 200 mg Q12HR PO 04/10/24 22:00 04/17/24 21:44 200 MG Phenylephrine HCl 80 mg/Sodium Chloride 250 ml @ 7.5 mls/hr Q24H IV 04/10/24 19:30 04/15/24 10:40 1.875 MLS/HR Fentanyl Citrate 250 ml @ 2.5 mls/hr Q24H IV 04/11/24 15:15 04/18/24 03:30 12.5 MLS/HR Nystatin 1 applic BID TOP 04/12/24 22:00 04/17/24 21:45 1 APPLIC Levofloxacin 50 ml @ 50 mls/hr DAILY IV 04/13/24 10:00 04/16/24 09:20 50 MLS/HR Dexmedetomidine HCl 400 mcg/ Dextrose 100 ml @ 6.05 mls/hr [id number] IV 04/13/24 15:45 04/15/24 11:06 21.175 MLS/HR Enoxaparin Sodium 40 mg DAILY SC 04/14/24 10:00 Hold 04/16/24 09:20 40 MG Bumetanide 1 mg DAILY IV 04/16/24 10:00 04/16/24 09:18 1 MG Purified Water 200 ml Q6HR GT 04/16/24 12:00 04/18/24 06:13 200 ML Morphine Sulfate 1 mg Q4HP PRN IV 04/16/24 15:30 Albuterol 2.5 mg Q4HR NEB 04/16/24 18:00 04/18/24 06:22 2.5 MG Ipratropium [place] 0.5 mg Q4HR NEB 04/16/24 18:00 04/18/24 06:22 0.5 MG Budesonide 0.5 mg BID NEB 04/16/24 22:00 04/18/24 06:22 0.5 MG Lorazepam 0.5 mg Q6HP PRN IV 04/16/24 21:45 Clopidogrel Bisulfate 75 mg DAILY PO 04/18/24 10:00 Dextrose 1,000 ml @ 150 mls/hr Q6H40M IV 04/17/24 14:00 Heparin Sodium/ Dextrose 250 ml @ 14 mls/hr [id number] IV 04/18/24 05:30 Examination Physical Examination General: Patient sedated on fentanyl on mechanical ventilator: VT 500, RR 18, FiO2 30%, PEEP 5, sat 96% HEENT: Normocephalic, atraumatic, moist mucous membranes Respiratory/pulmonary: There are decreased breath sounds on right lung base but otherwise grossly clear. There is a right sided 40 sized chest tube draining aprox 10cc in the last 12 hrs. Cardiovascular: Heart sounds currently regular and rhythmic with occasional PACs . No murmurs at this time. Abdomen: Abdomen slightly distended, there is no pain to palpation in any of the abdominal quadrants, no palpable masses. Extremities: There is 2+ pitting edema in the lower extremities bilaterally. Peripheral Pulses: 3+ Radial (R). 3+ Radial (L). 3+ Dorsalis pedis (R). 3+ Dorsalis pedis(L) Skin: There is dry skin in bilateral lower extremities with scales and excoriations. Neurological: Sedated, RASS -3 laboratory and microbiology Laboratory Tests 04/18/24 03:32 Test 04/18/24 03:32 Range/Units Serum Glucose 111 H 74-106 mg/dL Microbiology Date/Time Source Procedure Growth Status 04/09/24 13:10 Blood Blood Culture - Final NO GROWTH AFTER 5 DAYS OF INCUBATION. Complete 04/08/24 08:02 Thoracic Fluid Gram Stain - Final Complete 04/08/24 08:02 Thoracic Fluid Anaerobic Culture - Final Complete 04/08/24 08:02 Thoracic Fluid Aerobic Culture - Final Complete 04/07/24 07:44 Urine - [place] Urine Culture - Final Complete 04/01/24 11:19 Nose MRSA Screen - Final Complete 03/31/24 22:55 Sputum Endotracheal Wash Gram Stain - Final Complete 03/31/24 22:55 Sputum Endotracheal Wash Respiratory Culture - Final Complete Problem List/Assessment/Plan Problem List/Assessment/Plan Assessment/Plan Neurology Sedation -currently on midazolam and fentanyl Vasopressors -currently on phenylephrine Respiratory Acute hypoxic respirtory failure likel due to right-sided pleural effusion and consolidation on right middle and lower lobes -initial chest x-ray showed severe right lower lobe opacities consistent with either consolidation or moderate to severe pleural effusion -CT of the chest and abdomen showed moderate partial loculated right pleural effusion and consolidation on right middle/lower lobes. Mild cardiomegaly and interstitial pulmonary edema. It also showed right hydronephrosis with 1.9 cm calculus into the right UPJ. There is also a 2.6 cm staghorn appearing calculus causing mid to lower pole left hydronephrosis. -the patient was initially started on Zosyn, vancomycin and cefepime. We discontinued Zosyn and cefepime. -we will switch linezolid back to vancomycin due to low platelet. -Continue IV vanco and meropenem -consulted interventional radiologist which performed right-sided thoracentesis removing 250 mL of fluid which were sent to analysis. -Surgical thoracoscopy was performed on 04/08/2024 with evacuation of empyema and insertion of a chest tube draining approximately 200 cc of purulent material. -Patient was extubated on 04/16/24 Patient was reintubated on 04/17/24 due to tachypneic and STEMI which required left heart cath -currently on any ventilator on the following parameters: VT 500, RR 18, FiO2 30%, peep five, saturating 96%. -Right chest tube had no output in the last 24 hours. Sepsis in the setting of loculated right-sided pleural effusion (EMPYEMA) and pneumonia -ordered blood cultures, sputum cultures and urine culture -currently on IV meropenem and linezolid -Will monitor plateletes closely -S/P right-sided thoracentesis removing 250 mL of fluids. -chest x-ray this morning showed still right-sided opacities and left opacities in the base of the lung. -Surgical thoracoscopy was performed on 04/08/2024 with evacuation of empyema and insertion of a chest tube draining approximately 200 cc of purulent material. -Right chest tube is draining 10 cc in the last 12 hours -Patient was extubated on 04/16/24 Patient was reintubated on 04/17/24 due to tachypneic and STEMI which required left heart cath which showed mild LAD with chronic total occlusion which was attempted to open, LAD and diagonal were full of thrombus. Mid RCA also had 50% lesion. No stents placed at this time. Cardiology Acute on chronic systolic/diastolic heart failure -BNP came back elevated at 274.69 -initial EKG showed sinus tachycardia with PACs but no ST segment elevation or depression at that time -troponins came back elevated at 1469 and peaked up to 1684 -echocardiogram is showing an LVEF of 55-60% with increased RVSP at 48 mmHg and no pericardial effusion STEMI (leads v2-v4) -troponins came back elevated at 1469 and peaked up to 1684 -Trend trops -patient was intubated and taken to the OR for left heart catheterization on 04/17/24 which showed mild LAD with chronic total occlusion which was attempted to open, LAD and diagonal were full of thrombus. Mid RCA also had 50% lesion. No stents placed at this time. -Continue heparin drip -Continue Plavix 75 mg q.d. Atrial fibrilation with RVR -CHADS VASC score HAS BLED score -heparin drip was hold for right-sided chest tube placement and david catheter placement -patient underwent atrial flutter with a heart rate of 180 to 200, cardiology decided to perform synchronized cardioversion and continue amiodarone drip. -S/P multiple synchronized cardioversions x6 -Continue amiodarone 200mg PO BID -patient was given two doses of digoxin but due to high levels of digoxin blood 3rd dose was held -currently on heparin drip Nephrology Bilateral hydronephrosis -CT scan of the chest and abdomen showed right hydronephrosis with 1.9 cm calculus into the right UPJ, there was also a 2.6 cm staghorn appearing calculus causing mid to lower pole left hydronephrosis. -nephrology on board -consulted Urology for bilateral nephrostomy tube placement -David catheter placed on L IJ on 04/08/24 REMOVED CHRISTOPH likely postobstructive nephropathy -most likely secondary to bilateral renal calculi -creatinine was 1.82 and BUN 52. Kidney function slightly improving -nephrology and urology on board -consulted Urology for bilateral nephrostomy tube placement, if therapy does not improve patient might need hemodialysis as last resource Hematology Acute microcytic hypochromic anemia -Hb today was 9.0 -Transfused 1 pack of RBCs on 04/16/24 -Monitor hb and hct Nutrition -Continue EN Nepro at 30cc/hr Hyperkalemia -potassium was 3.7 -monitor closely DVT prophylaxys -Currently on heparin Drip Lines: PICC line placed Peripheral in right wrist placed on 03/31/2024 Peripheral in left forearm placed on 03/31/2024 Goals of care discussed with mdical team at bedside for >23min Critical time spent > 58min Plan discussed with Dr. Manning Plan discussed with: Other My Orders My Orders Orders - KEVON BLANTON RESIDENT Procedure Category Date Status Time Abg W/ Co-Ox RT 04/18/24 Logged 04:00 Chest Xray 1 View XY 04/18/24 Resulted 04:00 Blood Culture TRESSA 04/18/24 Logged 07:06 Urine Bacterial TRESSA 04/18/24 Logged Culture 07:06 Respiratory Culture TRESSA 04/18/24 Logged W/ Gs 07:06 Dietary Evaluation Review Comments: 1) If GI is accessible consider Nepro 1.8 @ 30 ml/hr goal rate as tolerated with current rate of propofol on board. 2) If pt remains NPO >7 days consider TPN to meet at least 75% of estimated needs 3) If pt continues to receive HD, advance pt diet when medically feasible to a Renal Standard diet modified per [employer] recommendations 4) If HD is discontinued and GFR is within normal range, advance pt diet to a Regular diet, modified per [employer] recommendations 5)If HD is discontinued and GFR lies within STG 1-4, advance pt diet to a Renal Specific K2,lowphos,HECTOR,2gmNa,80gPro diet 6) If HD is discontinued and if GFR returns to normal levels then ALEXANDRA 1 pkt BID with meals may be considered to aid with wound healing 7) Continue current plan of care Expected Outcomes/Goals: 1) Pt to receive nutrition support within 7 days of NPO status 2) Pt labs to improve 3) Pt diet to advance 4) F/U in 2-3 days Date of Service: Apr 18, 2024 Billing Provider: SEDRICK MANNING MD Common Visit Codes: [id number] INP/OBS CARE(HIGH) KEVON BLANTON RESIDENT Apr 18, 2024 07:09 SEDRICK MANNING MD Apr 20, 2024 22:32
[2024-04-18] MEDS: CLOPIDOGREL BISULFATE 75 MG TAB PO SCH (10:05)
[2024-04-18 12:03] LABS: INR 1.13 (0.9-1.15); Partial Thromboplastin Time 25.6 SEC (24.5-34.5); Prothrombin Time 11.9 sec (9.3-11.8)
[2024-04-18] MEDS: HEPARIN SODIUM (PORCINE) 5000 UNITS/ML 1ML VIAL IV ONE (12:59)
--- NOTE | 2024-04-18 17:20 | DVHPN2 ---
Progress Note Date Seen: Apr 18, 2024 Has the PT tested + for MRSA If YES, has PT been informed?: No Medical Necessity Reason Pt with a Central, PICC or Fol: Yes The following are medically ne: Central Line, Martines Catheter Subjective Patient reports: Other Review of Systems: Deferred Objective vital signs Vital Sign Date Time Temp Pulse Resp B/P (MAP) Pulse Ox O2 Delivery O2 Flow Rate FiO2 04/18/24 16:04 94 27 90/48 (62) 96 30 04/18/24 16:00 Mechanical Ventilator+ 04/18/24 15:00 98.2 208.8 04/16/24 12:00 8 Total Intake and Output 04/17/24 04/17/24 04/18/24 15:00 23:00 07:00 Intake Total 86.5 ml 927.872 ml 669.878 ml Output Total 450 ml 400 ml Balance 86.5 ml 477.872 ml 269.878 ml medications Current Medications Medications Dose Ordered Sig/Destini Route Start Time Stop Time Status Last Admin Dose Admin Heparin Sodium/ Dextrose 250 ml @ 18 mls/hr [id number] IV 03/31/24 23:45 UNV Midazolam HCl 50 ml @ 1 mls/hr Q24H IV 04/01/24 01:30 04/18/24 15:55 8 MLS/HR Ondansetron HCl 4 mg Q4HP PRN IV 04/01/24 05:00 Acetaminophen 650 mg Q6HP PRN PO 04/01/24 05:00 04/15/24 17:07 650 MG Nitroglycerin 0.4 mg Q5MINP PRN SL 04/01/24 05:00 04/17/24 01:05 0.4 MG Albumin Human 100 ml @ 100 mls/hr KIRAN PRN IV 04/03/24 07:00 Norepinephrine Bitartrate 32 mg/ Sodium Chloride 250 ml @ 0.469 mls/ hr Q24H IV 04/04/24 06:30 04/17/24 18:43 4.688 MLS/HR Enteral Nutritional Formula 1,000 ml 20ML/HR GT 04/09/24 11:15 04/12/24 10:35 1,000 ML Sodium Chloride 10 ml QSHIFT@ IV 04/09/24 22:00 04/18/24 10:05 10 ML Iron Sucrose 110 ml @ 110 mls/hr DAILY@1200 IV 04/10/24 12:00 04/18/24 11:56 110 MLS/HR Amiodarone HCl 200 mg Q12HR PO 04/10/24 22:00 UNV Amiodarone HCl 200 mg Q12HR PO 04/10/24 22:00 04/18/24 10:05 200 MG Phenylephrine HCl 80 mg/Sodium Chloride 250 ml @ 7.5 mls/hr Q24H IV 04/10/24 19:30 04/15/24 10:40 1.875 MLS/HR Fentanyl Citrate 250 ml @ 2.5 mls/hr Q24H IV 04/11/24 15:15 04/18/24 03:30 12.5 MLS/HR Nystatin 1 applic BID TOP 04/12/24 22:00 04/18/24 10:15 1 APPLIC Levofloxacin 50 ml @ 50 mls/hr DAILY IV 04/13/24 10:00 04/18/24 10:02 50 MLS/HR Dexmedetomidine HCl 400 mcg/ Dextrose 100 ml @ 6.05 mls/hr [id number] IV 04/13/24 15:45 04/15/24 11:06 21.175 MLS/HR Enoxaparin Sodium 40 mg DAILY SC 04/14/24 10:00 Hold 04/16/24 09:20 40 MG Bumetanide 1 mg DAILY IV 04/16/24 10:00 04/18/24 10:04 1 MG Purified Water 200 ml Q6HR GT 04/16/24 12:00 04/18/24 11:44 200 ML Morphine Sulfate 1 mg Q4HP PRN IV 04/16/24 15:30 Albuterol 2.5 mg Q4HR NEB 04/16/24 18:00 04/18/24 14:08 2.5 MG Ipratropium [place] 0.5 mg Q4HR NEB 04/16/24 18:00 04/18/24 14:08 0.5 MG Budesonide 0.5 mg BID NEB 04/16/24 22:00 04/18/24 06:22 0.5 MG Lorazepam 0.5 mg Q6HP PRN IV 04/16/24 21:45 Clopidogrel Bisulfate 75 mg DAILY PO 04/18/24 10:00 04/18/24 10:05 75 MG Dextrose 1,000 ml @ 150 mls/hr Q6H40M IV 04/17/24 14:00 Heparin Sodium/ Dextrose 250 ml @ 14 mls/hr [id number] IV 04/18/24 05:30 04/18/24 12:00 14 MLS/HR Examination: LUNGS:Abnormal, MSK:Abnormal laboratory and microbiology Laboratory Tests 04/18/24 03:32 Test 04/18/24 03:32 Range/Units Serum Glucose 111 H 74-106 mg/dL Microbiology Date/Time Source Procedure Growth Status 04/17/24 14:51 Sputum Gram Stain Pending Resulted 04/17/24 14:51 Sputum Respiratory Culture - Preliminary Resulted 04/09/24 13:10 Blood Blood Culture - Final NO GROWTH AFTER 5 DAYS OF INCUBATION. Complete 04/08/24 08:02 Thoracic Fluid Gram Stain - Final Complete 04/08/24 08:02 Thoracic Fluid Anaerobic Culture - Final Complete 04/08/24 08:02 Thoracic Fluid Aerobic Culture - Final Complete 04/07/24 07:44 Urine - [place] Urine Culture - Final Complete 04/01/24 11:19 Nose MRSA Screen - Final Complete Problem List/Assessment/Plan Problem List/Assessment/Plan Acute kidney injury due to ATN/hemodynamic from shock, needed intermittent hemodialysis now off Acute respiratory failure, intubated on ventilator Right thoracoscopy, evacuation of empyema, insertion of chest tube on 04/08 NSTEMI septic shock empyema metabolic acidosis resolved b/l renal stones w/ hydronephrosis--possible staghorn morbid obesity s/p hyperkalemia afib RVR Recommendations Renal function improved off dialysis diuretics Urology consult recommended Plan discussed with: Other Dietary Evaluation Review Comments: 1) If GI is accessible consider Nepro 1.8 @ 30 ml/hr goal rate as tolerated with current rate of propofol on board. 2) If pt remains NPO >7 days consider TPN to meet at least 75% of estimated needs 3) If pt continues to receive HD, advance pt diet when medically feasible to a Renal Standard diet modified per [employer] recommendations 4) If HD is discontinued and GFR is within normal range, advance pt diet to a Regular diet, modified per [employer]AD[employer] recommendations 5)If HD is discontinued and GFR lies within STG 1-4, advance pt diet to a Renal Specific K2,lowphos,HECTOR,2gmNa,80gPro diet 6) If HD is discontinued and if GFR returns to normal levels then ALEXANDRA 1 pkt BID with meals may be considered to aid with wound healing 7) Continue current plan of care Expected Outcomes/Goals: 1) Pt to receive nutrition support within 7 days of NPO status 2) Pt labs to improve 3) Pt diet to advance 4) F/U in 2-3 days KAITLYN CENTENO MD Apr 18, 2024 17:20
[2024-04-18 20:55] LABS: INR 1.17 (0.9-1.15); Prothrombin Time 12.3 sec (9.3-11.8)
[2024-04-18 20:58] LABS: Partial Thromboplastin Time 73.2 SEC (24.5-34.5)
[2024-04-19] VITALS (109 sets, daily range): BP systolic 83–120; BP diastolic 46–69; PULSE 82–103; RESP 17–32; TEMP 97.2–99.3; O2SAT 93–100
[2024-04-19] MEDS: HEPARIN DRIP/D5W 100UNITS/ML 250 ML IV SCH ×2 (03:00→18:14)
[2024-04-19 04:24] LABS: Basophils # (auto) 0.1 10 ^3/uL (0-0.2); Eosinophils # (auto) 0.4 10 ^3/uL (0-0.8); Hemoglobin 8.4 g/dL (12.2-16.2); Lymphocytes # (auto) 1.7 10 ^3/uL (0.4-5.4)
[2024-04-19 04:25] LABS: Basophils % (auto) 0.6 % (0.0-2.0); Eosinophils % (auto) 2.7 % (0.0-7.0); Hematocrit 28.1 % (36.0-46.0); Lymphocytes % (auto) 10.2 % (10.0-50.0); Mean Corpuscular Hemoglobin 27.1 pg (28.0-32.0); Mean Corpuscular Volume 90.4 fL (80.0-100.0); Monocytes % (auto) 6.4 % (0.0-12.0); Neutrophils % (auto) 80.1 % (37.0-80.0); Nucleated Red Blood Cells % 0.3 %; Platelet Count (auto) 241 10^3/uL (140-450); Red Blood Cells 3.11 10^6/uL (4.0-5.20); White Blood Cell 16.3 10^3/uL (4.4-10.8)
[2024-04-19 04:54] LABS: Alanine Aminotransferase 51 U/L (7-40); Albumin 3.1 g/dL (3.2-4.8); Alkaline Phosphatase 92 U/L (46-116); Anion Gap 12 (5-15); Aspartate Aminotransferase 135 U/L (13-40); BUN/Creatinine Ratio 23.2 (10.0-20.0); Bilirubin, Total 0.3 mg/dL (0.2-1.0); Blood Urea Nitrogen 45 mg/dL (9-23); Carbon Dioxide 21 mmol/L (20-31); Chloride 116 mmol/L (98-107); Glucose 118 mg/dL (74-106); Magnesium 2.5 mg/dL (1.6-2.6); Potassium 3.6 mmol/L (3.5-5.1); Sodium 149 mmol/L (136-145)
--- NOTE | 2024-04-19 05:21 | DVH ---
EXAM: XY CHEST XRAY 1 VIEW Indication:reval right lung maaya Technique: Single frontal view of the chest was obtained Comparison: XY CHEST XRAY 1 VIEW on DOS: 04/18/24, XY CHEST PORTABLE on DOS: 04/17/24, XY CHEST STEPHANY BLE on DOS: 04/17/24, XY CHEST XRAY 1 VIEW on DOS: 04/16/24, XY CHEST PORTABLE on DOS: 04/15/24, XY C HEST XRAY 1 VIEW on DOS: 04/18/24 FINDINGS: Lines and Tubes: Right PICC and enteric catheter and right chest tube in satisfactory position. Endot sussy tube projects 3.8 cm above the level of the mili. Lungs: Bibasilar opacities. Pleura: Possible small right pleural effusion. No pneumothorax. Cardiomediastinal contours: Unremarkable Bones: Unremarkable IMPRESSION: No significant change compared to prior exam.
[2024-04-19 06:02] LABS: Platelet Estimate Adequate
[2024-04-19 07:28] LABS: Base Excess -1.5 mmol/L (-2.0-3.0)
[2024-04-19 10:24] LABS: INR 1.17 (0.9-1.15); Partial Thromboplastin Time 56.4 SEC (24.5-34.5); Prothrombin Time 12.3 sec (9.3-11.8)
--- NOTE | 2024-04-19 12:51 | DVHPN2 ---
Progress Note - Dictate Date Seen: Apr 19, 2024 Has the PT tested + for MRSA If YES, has PT been informed?: No Medical Necessity Reason Pt with a Central, PICC or Fol: Yes The following are medically ne: Central Line, Martines Catheter Subjective Patient is seen and evaluated in the ICU. She remains intubated on 30% FiO2. Patients blood pressure is stable with the use of Levophed. Normal sinus rhythm is seen on telemetry review. Chest x-ray was completed showing no significant changes. Defibrillator vest has been ordered and will be available once the patient is planned for discharge. Continue with current cardiac management. Will continue to follow from a cardiac perspective. vital signs Vital Sign Date Time Temp Pulse Resp B/P (MAP) Pulse Ox O2 Delivery O2 Flow Rate FiO2 04/19/24 11:44 90 22 106/62 (77) 96 30 04/19/24 11:15 98.8 209.8 04/19/24 10:00 Mechanical Ventilator+ Total Intake and Output 04/18/24 04/18/24 04/19/24 15:00 23:00 07:00 Intake Total 458.839 ml 773.692 ml 276.308 ml Output Total 670 ml 350 ml Balance 458.839 ml 103.692 ml -73.692 ml medications Current Medications Medications Dose Ordered Sig/Destini Route Start Time Stop Time Status Last Admin Dose Admin Heparin Sodium/ Dextrose 250 ml @ 18 mls/hr [id number] IV 03/31/24 23:45 UNV Midazolam HCl 50 ml @ 1 mls/hr Q24H IV 04/01/24 01:30 04/19/24 08:04 10 MLS/HR Ondansetron HCl 4 mg Q4HP PRN IV 04/01/24 05:00 Acetaminophen 650 mg Q6HP PRN PO 04/01/24 05:00 04/15/24 17:07 650 MG Nitroglycerin 0.4 mg Q5MINP PRN SL 04/01/24 05:00 04/17/24 01:05 0.4 MG Albumin Human 100 ml @ 100 mls/hr KIRAN PRN IV 04/03/24 07:00 Norepinephrine Bitartrate 32 mg/ Sodium Chloride 250 ml @ 0.469 mls/ hr Q24H IV 04/04/24 06:30 04/17/24 18:43 4.688 MLS/HR Enteral Nutritional Formula 1,000 ml 20ML/HR GT 04/09/24 11:15 04/12/24 10:35 1,000 ML Sodium Chloride 10 ml QSHIFT@10,22 IV 04/09/24 22:00 04/19/24 09:50 10 ML Iron Sucrose 110 ml @ 110 mls/hr DAILY@1200 IV 04/10/24 12:00 04/18/24 11:56 110 MLS/HR Amiodarone HCl 200 mg Q12HR PO 04/10/24 22:00 UNV Amiodarone HCl 200 mg Q12HR PO 04/10/24 22:00 04/19/24 09:46 200 MG Phenylephrine HCl 80 mg/Sodium Chloride 250 ml @ 7.5 mls/hr Q24H IV 04/10/24 19:30 04/15/24 10:40 1.875 MLS/HR Fentanyl Citrate 250 ml @ 2.5 mls/hr Q24H IV 04/11/24 15:15 04/18/24 03:30 12.5 MLS/HR Nystatin 1 applic BID TOP 04/12/24 22:00 04/19/24 09:50 1 APPLIC Levofloxacin 50 ml @ 50 mls/hr DAILY IV 04/13/24 10:00 04/19/24 09:50 50 MLS/HR Dexmedetomidine HCl 400 mcg/ Dextrose 100 ml @ 6.05 mls/hr [id number] IV 04/13/24 15:45 04/15/24 11:06 21.175 MLS/HR Enoxaparin Sodium 40 mg DAILY SC 04/14/24 10:00 Hold 04/16/24 09:20 40 MG Bumetanide 1 mg DAILY IV 04/16/24 10:00 04/19/24 09:49 1 MG Purified Water 200 ml Q6HR GT 04/16/24 12:00 04/19/24 06:23 200 ML Morphine Sulfate 1 mg Q4HP PRN IV 04/16/24 15:30 Albuterol 2.5 mg Q4HR NEB 04/16/24 18:00 04/19/24 09:54 2.5 MG Ipratropium [place] 0.5 mg Q4HR NEB 04/16/24 18:00 04/19/24 09:54 0.5 MG Budesonide 0.5 mg BID NEB 04/16/24 22:00 04/19/24 06:04 0.5 MG Lorazepam 0.5 mg Q6HP PRN IV 04/16/24 21:45 Clopidogrel Bisulfate 75 mg DAILY PO 04/18/24 10:00 04/19/24 09:47 75 MG Dextrose 1,000 ml @ 150 mls/hr [id number] IV 04/17/24 14:00 Heparin Sodium/ Dextrose 250 ml @ 19 mls/hr [id number] IV 04/19/24 03:00 laboratory and microbiology Laboratory Tests 04/19/24 03:33 Test 04/19/24 03:33 Range/Units Serum Glucose 118 H 74-106 mg/dL Assessment/Plan There was question about EKG showing STEMI. Patient was intubated again by primary team and taken to Washroom Attendant. s/p Cardiac cath Was found to have CORPORATE ADMINISTRATOR of mid LAD (considered old) with full of thrombus. s/p balloon angioplasty with minimal / partial result s/p thoracoscopy and chest tube placement extubated Patient is a 68-year-old female who was transferred from [facility]. She originally presented to [facility] for shortness of breath ongoing for few days. She is intubated and is being managed in ICU. Information was obtained by reviewing the chart and communicating with staff. Reportedly, she presented with respiratory failure to [facility] (oxygen saturation was 88%) and over there was found to have white blood cell count of 26.6, hemoglobin of 11.1, creatinine of 5.6, potassium of 5.6 and troponin of 1.01. She was given 365 mg of aspirin in [facility]. She did have an episode of atrial fibrillation with RVR with questionable ST changes and was transferred to our facility for further care. She was also found to have right pleural effusion in [facility] and was diagnosed with non-STEMI. Intubated, on vent support. Obese. Mucosa is pale. Scattered rhonchi in the lungs is heard. Cardiac: Regular, no thrill/gallop. Abdomen is soft with increased bowel sounds. There is no gross mass. Extremities reveal 1+ edema bilaterally. Available past medical history includes obesity and questionable history of psoriasis. WBC: 25.3 - 23.7 - 20.2 - 20.5 - 17.6 - 18.4 - 19.2 - 19.4 - 22.2 - 16.4 - 16.1 - 19.5 - 14.7 - 12.3 - 9.8 - 10.0 - 8.3 - 9.2 - 10.2 - 11.4 - 10.3 - 12.0 - 13.8 Hemoglobin: 10.8 - 9.1 - 8.5 - 8.4 - 8.8 - 8.6 - 8.9 - 8.1 - 8.4 - 8.1 - 8.1 - 8.2 - 8.0 - 7.4 - 7.4 - 7.7 - 7.1 - 8.0 - 7.5 - 8.8 - 7.1 - 9.0 - 8.9 - 9.0 D-dimer: 3.62 Creatinine: 5.67 - 5.78 - 5.41 - 4.92 - 4.55 - 4.68 - 4.71 - 4.64 - 4.48 - 3.83 - 3.66 - 3.65 - 3.25 - 2.82 - 2.41 - 2.34 - 2.01 - 1.90 - 1.60 - 1.83 - 1.73 - 1.74 - 1.76 - 1.78 - 1.82 Potassium: 6.0 - 6.3 - 6.1 - 6.0 - 5.3 - 5.0 - 4.9 - 4.8 - 5.1 - 5.4 - 4.9 - 5.3 - 4.8 - 4.5 - 4.7 - 4.3 - 4.2 - 3.9 - 4.6 - 3.8 - 3.5 - 3.3 - 3.6 - 3.6 - 4.0 - 3.5 - 4.0 - 3.7 Lactic acid: 3.3 - 3.4 - 2.3 - 2.5 - 2.5 - 2.7 - 2.4 - 2.5 - 3.1 - 2.3 - 1.7 - 1.7 TSH: 1.71 BNP: 274.69 - 1944.81 - 373.79 Troponin (high sensitive): 8825 - 5294 - 6448 - 7665 - 386 - 7025 Blood culture: positive Pleural fluid culture: E-coli Digoxin level: 2.09 Stool OB: positive Chest x-ray revealed: IMPRESSION: 1. Moderate right pleural effusion. 2. Cardiomegaly with mild pulmonary vascular congestion bilaterally. Repeat chest x-ray revealed: IMPRESSION: 1. Endotracheal tube and gastric tubes in place as described. 2. Right IJ central venous catheter projects over the lower SVC. 3. Mild cardiomegaly and prominence of the pulmonary vasculature. 4. Moderate to large right pleural effusion. Repeat chest x-ray revealed: IMPRESSION: Similar lung aeration with large right pleural effusion. No pneumothorax seen. Stable lines and tubes. Repeat chest x-ray revealed: IMPRESSION: Similar lung aeration with large right pleural effusion. No pneumothorax seen. Stable lines and tubes. Repeat chest xry revealed: Lines and tubes: ET in the mid thoracic trachea. NG crosses midline. Right CVC is stable. Left HD catheter projects over the mediastinum. Cardiomediastinal silhouette: Enlarged Pulmonary vasculature: prominent Lung expansion: low Lung airspace: patchy bilateral airspace opacity. Lung interstitium: normal Pleura: Similar large right effusion. Pneumothorax: no Bones: Unremarkable Other: no IMPRESSION: Lines and tubes, as above. Similar lung aeration bilaterally with a right pleural effusion and patchy airspace opacities. Repeat chest xry revealed: IMPRESSION: 1. Stable position of the support lines and tubes. 2. Interstitial and alveolar opacities. Repeat chest xry revealed: IMPRESSION: Unchanged multifocal airspace disease. Small to moderate right pleural effusion ; possibly loculated. Repeat chest xry revealed: IMPRESSION: Lines and tubes in satisfactory position. No significant interval change. Repeat chest xry revealed: IMPRESSION: 1. Support lines and tubes in appropriate position. 2. Pulmonary vascular congestion. 3. Bilateral pleural effusions, right greater than left. Repeat chest xry revealed: IMPRESSION: 1. Support lines and tubes in appropriate position. 2. Pulmonary vascular congestion. 3. Bilateral pleural effusions, right greater than left. Repeat chest xry revealed: IMPRESSION: Interval placement of right chest tube which projects deep into the right hilar region. Repeat chest xry revealed: IMPRESSION: No interval change Repeat chest xry revealed: Findings/IMPRESSION: Right IJ CVC terminating in the SVC. Endotracheal tube projected 5 cm superior to the mili. Enteric tube projected below the GE junction. Right-sided PICC projects terminating near the cavoatrial junction. Small bilateral pleural effusions and/or atelectasis with superimposed infection not excluded. Repeat chest xry revealed: MPRESSION: 1. Bilateral pleural effusions and airspace disease right greater than left. Repeat chest xry revealed: IMPRESSION: 1. Endotracheal tube terminates 6.0 cm above the mili, previously 3.1 cm above the mili. Otherwise, No significant interval change. Repeat chest xry revealed: IMPRESSION: 1. Endotracheal tube terminates 6.0 cm above the mili, previously 3.1 cm above the mili. Otherwise, No significant interval change. Repeat chest xry revealed: IMPRESSION: Lines and tubes in satisfactory position. No significant interval change. Repeat chest xry revealed: IMPRESSION: Lines and tubes in satisfactory position. No significant interval change. Repeat chest xry revealed: IMPRESSION: Lines and tubes in satisfactory position. No significant interval change. Repeat chest xry revealed: IMPRESSION: Lines and tubes in satisfactory position. No significant interval change. Repeat chest xry revealed: IMPRESSION: Endotracheal tube projects in appropriate position. Otherwise no significant change Renal ultrasound revealed: IMPRESSION: 1. Right kidney measures 13.4 cm. Decreased cortical thickness on the right. 2. Left kidney measures 10.2 cm. 3. No hydronephrosis on the right grade 1 hydronephrosis on the left. 4. Bilateral renal calculi. CT scan of the chest/abdomen and pelvis revealed: IMPRESSION: 1. Moderate partially loculated right pleural effusion and consolidations in the right middle and lower lobes which could be pneumonia and/or atelectasis. 2. Mild cardiomegaly, mild interstitial pulmonary edema, and body wall edema. 3. There is a 1.9 cm calculus in the right UPJ with mild right hydronephrosis 4. There is a 2.6 cm somewhat staghorn appearing calculus in the left renal pelvis and UPJ causing mild predominantly mid to lower pole left hydronephrosis. Mild soft tissue stranding about the left renal pelvis which could be due to obstruction or superimposed infection. Correlate with urinalysis. 5. Partial duplication of the left renal collecting system without hydronephrosis in the upper pole. 6. Moderate right perinephric, right retroperitoneal, and bilateral extraperitoneal pelvis low-density fluid and very mild left retroperitoneal low-density fluid. This could be fluid related to bilateral renal obstructions and forniceal ruptures versus evolved retroperitoneal hematoma. This is suboptimally evaluated without intravenous contrast. 7. Fluid-filled small and large bowel loops which may be physiologic or related to enterocolitis and could be manifesting as loose stools and/or diarrhea. 8. Prominent endometrium measuring at least 2.8 cm, suboptimally evaluated by CT. Recommend characterization with nonemergent pelvic ultrasound if clinically indicated. 9. Mild hepatosplenomegaly. 10. Moderate three-vessel calcified coronary artery disease and mild aortic valve calcification. 11. Right IJ central venous catheter in place terminating in the low SVC. 12. Small soft tissue stranding in the right supraclavicular neck which could be blood products. 13. Endotracheal tube terminates above the mili. CT of the head revealed: IMPRESSION: 1. No acute intracranial abnormality. 2. Generalized cerebral volume loss and mild chronic microvascular ischemic change. 3. Partially imaged endotracheal tube. Chest ultrasound revealed: Findings/Impression: There is a trace bilateral pleural effusion. Thoracentesis: FINDINGS: Moderate size, complex and septated right pleural effusion. Aspirated fluid is thick and green in consistency. IMPRESSION: Right thoracentesis with 250 mL removed for laboratory analysis. EKG in [facility] revealed sinus tachycardia, poor R-wave progression old inferior wall NH. later EKG revealed atrial fibrillation with RVR. Repeat EKGs questioned STEMI. but resolved later. Telemetry reveals sinus rhythm, occasions of A-fib with RVR, SVT Echocardiogram revealed: Technically limited study secondary to poor acoustic windows. Left ventricle: Left ventricle was normal-sized. Mild concentric left ventricular hypertrophy was seen. LVEF was 55-60%. No gross wall motion abnormality was observed, but its presence can not be ruled out on the basis of this study. Right ventricle is mildly dilated with normal systolic function. Left atrium was mildly dilated. Right atrium was normal-sized. Aortic valve was trileaflet. There was no aortic insufficiency. There was aortic sclerosis with no stenosis. There was trivial mitral/tricuspid regurgitation. Pulmonary valve was not well visualized. Right ventricular systolic pressure was assessed around 48 mm Hg. There was no pericardial effusion. Left heart cath revealed: One-vessel coronary artery disease, CORPORATE ADMINISTRATOR of mid LAD, Attempted to open up the LAD CORPORATE ADMINISTRATOR, partially/minimally successful (status post balloon angioplasty). LVEF of 25% (dilated LV). Cardiac suggestion for management: Dual antiplatelet therapy (loaded with aspirin and Plavix). Guideline directed medical therapy for systolic heart failure Patient is a 68-year-old morbidly obese patient who presented with respiratory failure to the hospital. Presentation is in favor of sepsis/septic shock. Multiorgan failure is observed. She is intubated and on vent support. She is on multiple pressor support. Life findings are in favor of acute renal failure. She also is known to have nephrolithiasis with history of staghorn calculi. Cardiac-ceballos, the patient did have episode of atrial fibrillation with RVR. She is found to have increased troponin. Presentation questions non-STEMI and possibly type 2 ischemia. Recognizing the presentation, ischemic workup should be postponed after clinical stability (only if patient recovers higher brain function). Is being followed by Nephrology. Had episodes of tachyarrhythmia. Loaded with Digoxin. Positive cultures. Repeated a-fib with RVR. Was evaluated by Interventional Cardiology nursing education specialist for STEMI (not considered STEMI). As there was repeated EKG changes in favor of STEMI, patient was taken to cath laboratory technician: Was found to have CORPORATE ADMINISTRATOR of mid LAD (considered old) with full of thrombus. s/p balloon angioplasty with minimal / partial result Septic shock Multiorgan failure Acute respiratory failure on vent support Acute renal failure Nephrolithiasis Staghorn calculi Hydronephrosis Abnormal troponin, non-STEMI Atrial fibrillation with RVR Paroxysmal AFib Acute heart failure, diastolic Hepatosplenomegaly Pleural effusion Status post thoracentesis Morbid obesity s/p Cardioversion for A-fib with RVR s/p thoracoscopy and chest tube placement CAD: CORPORATE ADMINISTRATOR of mid LAD (considered old) with full of thrombus. s/p balloon angioplasty with minimal / partial result Cardiac suggestion for management: Manage in ICU Follow-up electrolytes and kidney function tests and correct abnormalities Pressure support to keep mean arterial pressure above 65 Amiodarone oral/O mg BID Daily aspirin (81 mg daily) Plavix: 75 mg daily Heparin drip for now If regains higher brain function: Life Vest s/p thoracoscopy and chest tube placement IV metoprolol PRN for a-fib with RVR episodes. Sepsis workup and management as per primary team Evaluation and management of respiratory failure as per primary team/Pulmonary Evaluation and management of nephrolithiasis/hydronephrosis as per primary/Urology Evaluation and management of acute renal failure as per Nephrology Further evaluation and management as per above and clinical course. A total of 75 minutes was spent reviewing the patient record, examining the patient, making a diagnostic and therapeutic plan, discussing this plan with medical personnel, following up on diagnostic studies and following the patient for clinical stability excluding any and all procedures. At least 50% of this time was spent in direct, [id number] contact. Thank you for allowing me to participate in this patient's care. Further recommendations will depend on patient's clinical course. Please do not hesitate to contact me if you have any questions or concerns. This medical document was created using electronic medical record system with [employer] dictation system. Although this document has been carefully reviewed, there may still be some phonetic and typographical errors. These areas are purely typographical due to the imperfection of the software programs, and do not reflect any compromise in the patient's medical care. Dietary Evaluation Review Comments: 1) If GI is accessible consider Nepro 1.8 @ 30 ml/hr goal rate as tolerated with current rate of propofol on board. 2) If pt remains NPO >7 days consider TPN to meet at least 75% of estimated needs 3) If pt continues to receive HD, advance pt diet when medically feasible to a Renal Standard diet modified per WORK MANAGER recommendations 4) If HD is discontinued and GFR is within normal range, advance pt diet to a Regular diet, modified per WORK MANAGER recommendations 5)If HD is discontinued and GFR lies within STG 1-4, advance pt diet to a Renal Specific K2,lowphos,HECTOR,2gmNa,80gPro diet 6) If HD is discontinued and if GFR returns to normal levels then ALEXANDRA 1 pkt BID with meals may be considered to aid with wound healing 7) Continue current plan of care Expected Outcomes/Goals: 1) Pt to receive nutrition support within 7 days of NPO status 2) Pt labs to improve 3) Pt diet to advance 4) F/U in 2-3 days Plan discussed with: Other Provider Statement: I have reviewed the case with my supervising physician. We have agreed with the plan of care. ELVA HERRERA Apr 19, 2024 12:51
--- NOTE | 2024-04-19 14:53 | DVHPN2 ---
Subjective The patient is seen and examined at bedside. No change overnight. Remained intubated. Reviewed: Care Plan, H&P, Labs, Medications, Previous Orders, Radiology, Other (Consultants) Changes from previous H/P or p: No Changes Objective Vitals Vital Signs Date Time Temp Pulse Resp B/P (MAP) Pulse Ox O2 Delivery O2 Flow Rate FiO2 04/19/24 14:39 98/51 04/19/24 14:01 92 20 95 30 04/19/24 11:15 98.8 209.8 04/19/24 10:00 Mechanical Ventilator+ Intake/Output Intake and Output 04/19/24 07:00 Intake Total 1508.839 ml Output Total 1020 ml Balance 488.839 ml Intake Oral 400 ml IV Total 1082.839 ml Tube Feeding 26 ml Output Urine Total 1000 ml Chest Tube Drainage Total 20 ml General Appearance: Other (Intubated and sedated) HEENT: Atraumatic Lungs: Other (Few crackles bilateral lungs) Cardiovascular: Regular rate Abdomen: Soft Skin: Other (Mostly gone the macular rash in the abdominal and chest in area. Also redness in the lower abdominal folds and inguinal areas are better) Medications Current Medications Medications Dose Ordered Sig/Destini Route Start Time Stop Time Status Last Admin Dose Admin Heparin Sodium/ Dextrose 250 ml @ 18 mls/hr [id number] IV 03/31/24 23:45 UNV Midazolam HCl 50 ml @ 1 mls/hr Q24H IV 04/01/24 01:30 04/19/24 14:39 10 MLS/HR Ondansetron HCl 4 mg Q4HP PRN IV 04/01/24 05:00 Acetaminophen 650 mg Q6HP PRN PO 04/01/24 05:00 04/15/24 17:07 650 MG Nitroglycerin 0.4 mg Q5MINP PRN SL 04/01/24 05:00 04/17/24 01:05 0.4 MG Albumin Human 100 ml @ 100 mls/hr KIRAN PRN IV 04/03/24 07:00 Norepinephrine Bitartrate 32 mg/ Sodium Chloride 250 ml @ 0.469 mls/ hr Q24H IV 04/04/24 06:30 04/19/24 13:26 5.625 MLS/HR Enteral Nutritional Formula 1,000 ml 20ML/HR GT 04/09/24 11:15 04/12/24 10:35 1,000 ML Sodium Chloride 10 ml QSHIFT@10,22 IV 04/09/24 22:00 04/19/24 09:50 10 ML Iron Sucrose 110 ml @ 110 mls/hr DAILY@1200 IV 04/10/24 12:00 04/19/24 13:25 110 MLS/HR Amiodarone HCl 200 mg Q12HR PO 04/10/24 22:00 UNV Amiodarone HCl 200 mg Q12HR PO 04/10/24 22:00 04/19/24 09:46 200 MG Phenylephrine HCl 80 mg/Sodium Chloride 250 ml @ 7.5 mls/hr Q24H IV 04/10/24 19:30 04/15/24 10:40 1.875 MLS/HR Fentanyl Citrate 250 ml @ 2.5 mls/hr Q24H IV 04/11/24 15:15 04/18/24 03:30 12.5 MLS/HR Nystatin 1 applic BID TOP 04/12/24 22:00 04/19/24 09:50 1 APPLIC Levofloxacin 50 ml @ 50 mls/hr DAILY IV 04/13/24 10:00 04/19/24 09:50 50 MLS/HR Dexmedetomidine HCl 400 mcg/ Dextrose 100 ml @ 6.05 mls/hr [id number] IV 04/13/24 15:45 04/15/24 11:06 21.175 MLS/HR Enoxaparin Sodium 40 mg DAILY SC 04/14/24 10:00 Hold 04/16/24 09:20 40 MG Bumetanide 1 mg DAILY IV 04/16/24 10:00 04/19/24 09:49 1 MG Purified Water 200 ml Q6HR GT 04/16/24 12:00 04/19/24 12:00 200 ML Morphine Sulfate 1 mg Q4HP PRN IV 04/16/24 15:30 Albuterol 2.5 mg Q4HR NEB 04/16/24 18:00 04/19/24 14:00 2.5 MG Ipratropium [place] 0.5 mg Q4HR NEB 04/16/24 18:00 04/19/24 14:00 0.5 MG Budesonide 0.5 mg BID NEB 04/16/24 22:00 04/19/24 06:04 0.5 MG Lorazepam 0.5 mg Q6HP PRN IV 04/16/24 21:45 Clopidogrel Bisulfate 75 mg DAILY PO 04/18/24 10:00 04/19/24 09:47 75 MG Dextrose 1,000 ml @ 150 mls/hr [id number] IV 04/17/24 14:00 Heparin Sodium/ Dextrose 250 ml @ 19 mls/hr [id number] IV 04/19/24 03:00 Laboratory Results Laboratory Tests 04/19/24 03:33 Chemistry Test 04/19/24 03:33 Albumin 3.1 g/dL (3.2-4.8) L Calcium Level 8.0 mg/dL (8.7-10.4) L Magnesium Level 2.5 mg/dL (1.6-2.6) Phosphorus Level 4.0 mg/dL (2.4-5.1) Total Protein 6.0 g/dL (5.7-8.2) Coagulation Test 04/18/24 19:45 04/19/24 01:44 04/19/24 09:32 Prothrombin Time 12.3 sec (9.3-11.8) H 12.3 sec (9.3-11.8) H Prothrombin Time INR 1.17 (0.9-1.15) H 1.17 (0.9-1.15) H Activated Partial Thromboplast Time 73.2 SEC (24.5-34.5) *H 38.4 SEC (24.5-34.5) H 56.4 SEC (24.5-34.5) H LFT Test 04/19/24 03:33 Alanine Aminotransferase (ALT) 51 U/L (7-40) H Alkaline Phosphatase 92 U/L (46-116) Aspartate Amino Transferase (AST) 135 U/L (13-40) H Total Bilirubin 0.3 mg/dL (0.2-1.0) Urinalysis Test 04/16/24 13:10 Urine Color Colorless (Yellow) Urine Clarity Turbid (Clear) H Urine pH 5.5 (5.0-9.0) Urine Specific [place] 1.011 (1.001-1.035) Urine Protein Trace (Negative) H Urine Ketones Negative (Negative) Urine Blood 2+ /uL (Negative) H Urine Nitrite Negative (Negative) Urine Bilirubin Negative (Negative) Urine Urobilinogen Normal mg/dL (Negative) Urine Leukocyte Esterase 3+ /uL (Negative) Urine RBC 18 /hpf (0 - 4) Urine WBC 179 /hpf (0 - 5) Urine WBC Clumps Present /hpf (None Seen) Urine Squamous Epithelial Cells Few /hpf (<5) Urine Bacteria Few /hpf (None Seen) H Urine Mucus Few (None Seen) Urine Yeast (Budding) Many /hpf (None Seen) Urine Osmolality 375 mOsm/kg Urine Glucose Normal mg/dL (Normal) Blood Gas Results Test 04/19/24 07:21 Arterial Blood pH 7.408 (7.350-7.450) FiO2 % 30.0 Microbiology Microbiology Date/Time Source Procedure Growth Status 04/18/24 15:02 Sputum Gram Stain Pending Resulted 04/18/24 15:02 Sputum Respiratory Culture - Preliminary Resulted 04/18/24 10:50 Voided Urine Urine Culture - Preliminary Resulted 04/18/24 09:20 Blood Blood Culture - Preliminary NO GROWTH AFTER 24 HOURS OF INCUBATION. Resulted 04/08/24 08:02 Thoracic Fluid Gram Stain - Final Complete 04/08/24 08:02 Thoracic Fluid Anaerobic Culture - Final Complete 04/08/24 08:02 Thoracic Fluid Aerobic Culture - Final Complete 04/01/24 11:19 Nose MRSA Screen - Final Complete Labs and/or images reviewed: Labs reviewed by me Assessment/Plan Assessment/Plan Neurology Sedation -currently on midazolam and fentanyl Vasopressors -currently on phenylephrine Respiratory Acute hypoxic respirtory failure likel due to right-sided pleural effusion and consolidation on right middle and lower lobes -initial chest x-ray showed severe right lower lobe opacities consistent with either consolidation or moderate to severe pleural effusion -CT of the chest and abdomen showed moderate partial loculated right pleural effusion and consolidation on right middle/lower lobes. Mild cardiomegaly and interstitial pulmonary edema. It also showed right hydronephrosis with 1.9 cm calculus into the right UPJ. There is also a 2.6 cm staghorn appearing calculus causing mid to lower pole left hydronephrosis. -the patient was initially started on Zosyn, vancomycin and cefepime. We discontinued Zosyn and cefepime. -we will switch linezolid back to vancomycin due to low platelet. -Continue IV vanco and meropenem -consulted interventional radiologist which performed right-sided thoracentesis removing 250 mL of fluid which were sent to analysis. -Surgical thoracoscopy was performed on 04/08/2024 with evacuation of empyema and insertion of a chest tube draining approximately 200 cc of purulent material. -Patient was extubated on 04/16/24 Patient was reintubated on 04/17/24 due to tachypneic and STEMI which required left heart cath -currently on any ventilator on the following parameters: VT 500, RR 18, FiO2 30%, peep five, saturating 96%. -Right chest tube had no output in the last 24 hours. Sepsis in the setting of loculated right-sided pleural effusion (EMPYEMA) and pneumonia -ordered blood cultures, sputum cultures and urine culture -currently on IV meropenem and linezolid -Will monitor plateletes closely -S/P right-sided thoracentesis removing 250 mL of fluids. -chest x-ray this morning showed still right-sided opacities and left opacities in the base of the lung. -Surgical thoracoscopy was performed on 04/08/2024 with evacuation of empyema and insertion of a chest tube draining approximately 200 cc of purulent material. -Right chest tube is draining 10 cc in the last 12 hours -Patient was extubated on 04/16/24 Patient was reintubated on 04/17/24 due to tachypneic and STEMI which required left heart cath which showed mild LAD with chronic total occlusion which was attempted to open, LAD and diagonal were full of thrombus. Mid RCA also had 50% lesion. No stents placed at this time. Cardiology Acute on chronic systolic/diastolic heart failure -BNP came back elevated at 274.69 -initial EKG showed sinus tachycardia with PACs but no ST segment elevation or depression at that time -troponins came back elevated at 1469 and peaked up to 1684 -echocardiogram is showing an LVEF of 55-60% with increased RVSP at 48 mmHg and no pericardial effusion STEMI (leads v2-v4) -troponins came back elevated at 1469 and peaked up to 1684 -Trend trops -patient was intubated and taken to the OR for left heart catheterization on 04/17/24 which showed mild LAD with chronic total occlusion which was attempted to open, LAD and diagonal were full of thrombus. Mid RCA also had 50% lesion. No stents placed at this time. -Continue heparin drip -Continue Plavix 75 mg q.d. Atrial fibrilation with RVR -CHADS VASC score HAS BLED score -heparin drip was hold for right-sided chest tube placement and david catheter placement -patient underwent atrial flutter with a heart rate of 180 to 200, cardiology decided to perform synchronized cardioversion and continue amiodarone drip. -S/P multiple synchronized cardioversions x6 -Continue amiodarone 200mg PO BID -patient was given two doses of digoxin but due to high levels of digoxin blood 3rd dose was held -currently on heparin drip Nephrology Bilateral hydronephrosis -CT scan of the chest and abdomen showed right hydronephrosis with 1.9 cm calculus into the right UPJ, there was also a 2.6 cm staghorn appearing calculus causing mid to lower pole left hydronephrosis. -nephrology on board -consulted Urology for bilateral nephrostomy tube placement -David catheter placed on L IJ on 04/08/24 REMOVED CHRISTOPH likely postobstructive nephropathy -most likely secondary to bilateral renal calculi -creatinine was 1.82 and BUN 52. Kidney function slightly improving -nephrology and urology on board -consulted Urology for bilateral nephrostomy tube placement, if therapy does not improve patient might need hemodialysis as last resource Hematology Acute microcytic hypochromic anemia - Transfused 1 pack of RBCs on 04/16/24 -Monitor hb and hct, transfuse as need. Nutrition -Continue EN Nepro at 30cc/hr Hyperkalemia -monitor closely DVT prophylaxys -Currently on heparin Drip Lines: PICC line placed Peripheral in right wrist placed on 03/31/2024 Peripheral in left forearm placed on 03/31/2024 Plan discussed with: Other (RN) Date of Service: Apr 19, 2024 Billing Provider: MINDY BOYD MD Common Visit Codes: [id number] INP/OBS CARE(HIGH) MINDY BOYD MD Apr 19, 2024 14:52
--- NOTE | 2024-04-19 16:11 | DVHPN2 ---
Progress Note - Dictate Date Seen: Apr 19, 2024 Has the PT tested + for MRSA If YES, has PT been informed?: No Medical Necessity Reason Pt with a Central, PICC or Fol: Yes The following are medically ne: Central Line, Martines Catheter Subjective Patient seen and examined at bedside. Sedated, intubated on mechanical ventilator. Overnight events reviewed. vital signs Vital Sign Date Time Temp Pulse Resp B/P (MAP) Pulse Ox O2 Delivery O2 Flow Rate FiO2 04/19/24 15:39 96 20 96/54 (68) 96 30 04/19/24 11:15 98.8 209.8 04/19/24 10:00 Mechanical Ventilator+ Total Intake and Output 04/18/24 04/18/24 04/19/24 15:00 23:00 07:00 Intake Total 458.839 ml 773.692 ml 276.308 ml Output Total 670 ml 350 ml Balance 458.839 ml 103.692 ml -73.692 ml medications Current Medications Medications Dose Ordered Sig/Destini Route Start Time Stop Time Status Last Admin Dose Admin Heparin Sodium/ Dextrose 250 ml @ 18 mls/hr [id number] IV 03/31/24 23:45 UNV Midazolam HCl 50 ml @ 1 mls/hr Q24H IV 04/01/24 01:30 04/19/24 14:39 10 MLS/HR Ondansetron HCl 4 mg Q4HP PRN IV 04/01/24 05:00 Acetaminophen 650 mg Q6HP PRN PO 04/01/24 05:00 04/15/24 17:07 650 MG Nitroglycerin 0.4 mg Q5MINP PRN SL 04/01/24 05:00 04/17/24 01:05 0.4 MG Albumin Human 100 ml @ 100 mls/hr KIRAN PRN IV 04/03/24 07:00 Norepinephrine Bitartrate 32 mg/ Sodium Chloride 250 ml @ 0.469 mls/ hr Q24H IV 04/04/24 06:30 04/19/24 13:26 5.625 MLS/HR Enteral Nutritional Formula 1,000 ml 20ML/HR GT 04/09/24 11:15 04/12/24 10:35 1,000 ML Sodium Chloride 10 ml QSHIFT@ IV 04/09/24 22:00 04/19/24 09:50 10 ML Iron Sucrose 110 ml @ 110 mls/hr DAILY@1200 IV 04/10/24 12:00 04/19/24 13:25 110 MLS/HR Amiodarone HCl 200 mg Q12HR PO 04/10/24 22:00 UNV Amiodarone HCl 200 mg Q12HR PO 04/10/24 22:00 04/19/24 09:46 200 MG Phenylephrine HCl 80 mg/Sodium Chloride 250 ml @ 7.5 mls/hr Q24H IV 04/10/24 19:30 04/15/24 10:40 1.875 MLS/HR Fentanyl Citrate 250 ml @ 2.5 mls/hr Q24H IV 04/11/24 15:15 04/18/24 03:30 12.5 MLS/HR Nystatin 1 applic BID TOP 04/12/24 22:00 04/19/24 09:50 1 APPLIC Levofloxacin 50 ml @ 50 mls/hr DAILY IV 04/13/24 10:00 04/19/24 09:50 50 MLS/HR Dexmedetomidine HCl 400 mcg/ Dextrose 100 ml @ 6.05 mls/hr [id number] IV 04/13/24 15:45 04/15/24 11:06 21.175 MLS/HR Enoxaparin Sodium 40 mg DAILY SC 04/14/24 10:00 Hold 04/16/24 09:20 40 MG Bumetanide 1 mg DAILY IV 04/16/24 10:00 04/19/24 09:49 1 MG Purified Water 200 ml Q6HR GT 04/16/24 12:00 04/19/24 12:00 200 ML Morphine Sulfate 1 mg Q4HP PRN IV 04/16/24 15:30 Albuterol 2.5 mg Q4HR NEB 04/16/24 18:00 04/19/24 14:00 2.5 MG Ipratropium [place] 0.5 mg Q4HR NEB 04/16/24 18:00 04/19/24 14:00 0.5 MG Budesonide 0.5 mg BID NEB 04/16/24 22:00 04/19/24 06:04 0.5 MG Lorazepam 0.5 mg Q6HP PRN IV 04/16/24 21:45 Clopidogrel Bisulfate 75 mg DAILY PO 04/18/24 10:00 04/19/24 09:47 75 MG Dextrose 1,000 ml @ 150 mls/hr Q6H40M IV 04/17/24 14:00 Heparin Sodium/ Dextrose 250 ml @ 19 mls/hr [id number] IV 04/19/24 03:00 objective Gen.: Patient lying in bed in medical ICU. Sedated, intubated on mechanical ventilator. Head: Normocephalic, atraumatic. Eyes: PERRLA. Ears: Normal external anatomy. Throat: Endotracheal tube and orogastric tube in place. Neck: Supple, trachea midline. Chest: Transmitted breath sounds bilaterally. Decreased air entry bilaterally. No wheezing. Bibasilar crackles. Cardio vascular: Positive S1, positive S2. Regular rate and rhythm. Abdomen: Positive bowel sounds in all 4 quadrants. Soft, nontender, nondistended. : Martines in place. Normal external genitalia. Rectal: Deferred Skin: Warm, dry. Intact. Extremities: 2+ radial pulses bilaterally. No lower extremity edema. Neuro: Sedated. laboratory and microbiology Laboratory Tests 04/19/24 03:33 Test 04/19/24 03:33 Range/Units Serum Glucose 118 H 74-106 mg/dL Assessment/Plan Impression: Acute hypoxic respiratory failure On mechanical ventilator Right-sided pleural effusion Pneumonia of the right middle and lower lobes, likely Gram-negative Interstitial pulmonary edema Sepsis due to empyema Acute on chronic systolic/diastolic congestive heart failure Atrial fibrillation with RVR Bilateral hydronephrosis Acute kidney injury likely postobstructive nephropathy Events: Patient remains on mechanical ventilation. Remains on sedation with fentanyl and Versed. Plan to taper sedation. ABG reviewed. Compensated. CXR imaging report reviewed. Bibasilar opacities. Small right pleural effusion suggested due to blunting of the right costophrenic angle. Devices in place. Remains on mechanical ventilation with a respiratory rate of 18, tidal volume 500, peep of five, FiO2 of 30%. Monitor chest tube output. Hemoglobin stable at 8.4 grams/deciliter. Monitor Sodium, 149 Creatinine trending up. WBC trending up F/u Sputum and urine cultures. Continue antibiotics On Levophed for hemodynamic support. Twelve mics per minute. Nutritional support with tube feeds On heparin drip per Cardiology recommendations. Cardiology recommendations appreciated. Rest of plan as noted below. Plan: s/p intubation on mechanical ventilator CXR image and report reviewed. ABG reviewed. On assist control Titrate FIO2 to keep O2 saturation above 92%. VAP bundle Daily ABG and CXR while intubated. Sedate for ventilatory synchrony Right chest tube in place. Monitor chest tube output On pressors for hemodynamic support. Titrate to keep MAP above 65 mmHg/SBP above 90 mmHg. Continue antibiotics. WBC count within normal limits. Represent new onset rash, IV steroids and IV Benadryl were initiated. Monitor renal function due to Acute kidney injury. Monitor electrolytes. Supplement as necessary. Nutritional support. Accucheks, ISS. GI/DVT prophylaxis. Condition: Critical Prognosis: Poor given multiple comorbidities. Rest of plan per hospitalist and other consultants. A total of 35 minutes of critical care time was spent reviewing the patient record, examining the patient, making a diagnostic and therapeutic plan, discussing this plan with the medical personnel, following up on diagnostic studies and following the patient for clinical stability excluding any and all procedures. At least 50% of this time was spent in direct, [id number] contact. Thank you Dr Mihir Hannon for allowing me to participate in this patient's care. Further recommendations will depend on patient's clinical course. Please do not hesitate to contact me if you have any questions or concerns. This medical document was created using an electronic medical record system with [employer] dictation system. Although this document has been carefully reviewed, there may still be some phonetic and typographical errors. These areas are purely typographical due to imperfections of the software programs, and do not reflect any compromise in the patient's medical care. Dietary Evaluation Review Comments: 1) If GI is accessible consider Nepro 1.8 @ 30 ml/hr goal rate as tolerated with current rate of propofol on board. 2) If pt remains NPO >7 days consider TPN to meet at least 75% of estimated needs 3) If pt continues to receive HD, advance pt diet when medically feasible to a Renal Standard diet modified per MYCOLOGY TEACHER recommendations 4) If HD is discontinued and GFR is within normal range, advance pt diet to a Regular diet, modified per MYCOLOGY TEACHER recommendations 5)If HD is discontinued and GFR lies within STG 1-4, advance pt diet to a Renal Specific K2,lowphos,HECTOR,2gmNa,80gPro diet 6) If HD is discontinued and if GFR returns to normal levels then ALEXANDRA 1 pkt BID with meals may be considered to aid with wound healing 7) Continue current plan of care Expected Outcomes/Goals: 1) Pt to receive nutrition support within 7 days of NPO status 2) Pt labs to improve 3) Pt diet to advance 4) F/U in 2-3 days Plan discussed with: Other (OLIVA Paiz, RT, MD) Critical Care Time(min): 35 MELBA CRUZ MD Apr 19, 2024 16:11
[2024-04-19 16:19] LABS: INR 1.19 (0.9-1.15); Prothrombin Time 12.5 sec (9.3-11.8)
[2024-04-19 16:45] LABS: Partial Thromboplastin Time 93.9 SEC (24.5-34.5)
--- NOTE | 2024-04-19 19:25 | DVHPN2 ---
Progress Note Date Seen: Apr 19, 2024 Has the PT tested + for MRSA If YES, has PT been informed?: No Medical Necessity Reason Pt with a Central, PICC or Fol: Yes The following are medically ne: Central Line, Martines Catheter Subjective Patient reports: Other (Patient remains intubated) Review of Systems: Deferred Objective vital signs Vital Sign Date Time Temp Pulse Resp B/P (MAP) Pulse Ox O2 Delivery O2 Flow Rate FiO2 04/19/24 18:28 88 23 118/62 (80) 95 30 04/19/24 16:15 99.0 210.2 04/19/24 14:00 Mechanical Ventilator+ Total Intake and Output 04/18/24 04/18/24 04/19/24 15:00 23:00 07:00 Intake Total 458.839 ml 773.692 ml 299.996 ml Output Total 670 ml 350 ml Balance 458.839 ml 103.692 ml -50.004 ml medications Current Medications Medications Dose Ordered Sig/Destini Route Start Time Stop Time Status Last Admin Dose Admin Heparin Sodium/ Dextrose 250 ml @ 18 mls/hr [id number] IV 03/31/24 23:45 UNV Midazolam HCl 50 ml @ 1 mls/hr Q24H IV 04/01/24 01:30 04/19/24 14:39 10 MLS/HR Ondansetron HCl 4 mg Q4HP PRN IV 04/01/24 05:00 Acetaminophen 650 mg Q6HP PRN PO 04/01/24 05:00 04/15/24 17:07 650 MG Nitroglycerin 0.4 mg Q5MINP PRN SL 04/01/24 05:00 04/17/24 01:05 0.4 MG Albumin Human 100 ml @ 100 mls/hr KIRAN PRN IV 04/03/24 07:00 Norepinephrine Bitartrate 32 mg/ Sodium Chloride 250 ml @ 0.469 mls/ hr Q24H IV 04/04/24 06:30 04/19/24 13:26 5.625 MLS/HR Enteral Nutritional Formula 1,000 ml 20ML/HR GT 04/09/24 11:15 04/12/24 10:35 1,000 ML Sodium Chloride 10 ml QSHIFT@ IV 04/09/24 22:00 04/19/24 09:50 10 ML Iron Sucrose 110 ml @ 110 mls/hr DAILY@1200 IV 04/10/24 12:00 04/19/24 13:25 110 MLS/HR Amiodarone HCl 200 mg Q12HR PO 04/10/24 22:00 UNV Amiodarone HCl 200 mg Q12HR PO 04/10/24 22:00 04/19/24 09:46 200 MG Phenylephrine HCl 80 mg/Sodium Chloride 250 ml @ 7.5 mls/hr Q24H IV 04/10/24 19:30 04/15/24 10:40 1.875 MLS/HR Fentanyl Citrate 250 ml @ 2.5 mls/hr Q24H IV 04/11/24 15:15 04/19/24 18:24 12.5 MLS/HR Nystatin 1 applic BID TOP 04/12/24 22:00 04/19/24 09:50 1 APPLIC Levofloxacin 50 ml @ 50 mls/hr DAILY IV 04/13/24 10:00 04/19/24 09:50 50 MLS/HR Dexmedetomidine HCl 400 mcg/ Dextrose 100 ml @ 6.05 mls/hr [id number] IV 04/13/24 15:45 04/15/24 11:06 21.175 MLS/HR Enoxaparin Sodium 40 mg DAILY SC 04/14/24 10:00 Hold 04/16/24 09:20 40 MG Bumetanide 1 mg DAILY IV 04/16/24 10:00 04/19/24 09:49 1 MG Purified Water 200 ml Q6HR GT 04/16/24 12:00 04/19/24 18:17 200 ML Morphine Sulfate 1 mg Q4HP PRN IV 04/16/24 15:30 Albuterol 2.5 mg Q4HR NEB 04/16/24 18:00 04/19/24 18:28 2.5 MG Ipratropium [place] 0.5 mg Q4HR NEB 04/16/24 18:00 04/19/24 18:28 0.5 MG Budesonide 0.5 mg BID NEB 04/16/24 22:00 04/19/24 06:04 0.5 MG Lorazepam 0.5 mg Q6HP PRN IV 04/16/24 21:45 Clopidogrel Bisulfate 75 mg DAILY PO 04/18/24 10:00 04/19/24 09:47 75 MG Heparin Sodium/ Dextrose 250 ml @ 16 mls/hr [id number] IV 04/19/24 18:00 04/19/24 18:14 16 MLS/HR Examination: GENERAL:Abnormal, MSK:Abnormal (Positive edema), NEURO:Abnormal laboratory and microbiology Laboratory Tests 04/19/24 03:33 Test 04/19/24 03:33 Range/Units Serum Glucose 118 H 74-106 mg/dL Microbiology Date/Time Source Procedure Growth Status 04/18/24 15:02 Sputum Gram Stain Pending Resulted 04/18/24 15:02 Sputum Respiratory Culture - Preliminary Resulted 04/18/24 10:50 Voided Urine Urine Culture - Preliminary Resulted 04/18/24 09:20 Blood Blood Culture - Preliminary NO GROWTH AFTER 24 HOURS OF INCUBATION. Resulted 04/08/24 08:02 Thoracic Fluid Gram Stain - Final Complete 04/08/24 08:02 Thoracic Fluid Anaerobic Culture - Final Complete 04/08/24 08:02 Thoracic Fluid Aerobic Culture - Final Complete 04/01/24 11:19 Nose MRSA Screen - Final Complete Problem List/Assessment/Plan Problem List/Assessment/Plan Acute kidney injury due to ATN/hemodynamic from shock, needed intermittent hemodialysis now off Acute respiratory failure, intubated on ventilator Right thoracoscopy, evacuation of empyema, insertion of chest tube on 04/08 NSTEMI septic shock empyema metabolic acidosis resolved b/l renal stones w/ hydronephrosis--possible staghorn morbid obesity s/p hyperkalemia afib RVR Hypernatremia Recommendations Increase free water flushes to 300 q.4 hours Renal function improved off dialysis diuretics iv Plan discussed with: Other My Orders My Orders Orders - KAITLYN CENTENO MD Procedure Category Date Status Time Free Water PHA 04/19/24 Transmitted 19:30 Dietary Evaluation Review Comments: 1) If GI is accessible consider Nepro 1.8 @ 30 ml/hr goal rate as tolerated with current rate of propofol on board. 2) If pt remains NPO >7 days consider TPN to meet at least 75% of estimated needs 3) If pt continues to receive HD, advance pt diet when medically feasible to a Renal Standard diet modified per OCCUPATIONAL HEALTH NURSE SUPERVISOR recommendations 4) If HD is discontinued and GFR is within normal range, advance pt diet to a Regular diet, modified per OCCUPATIONAL HEALTH NURSE SUPERVISOR recommendations 5)If HD is discontinued and GFR lies within STG 1-4, advance pt diet to a Renal Specific K2,lowphos,HECTOR,2gmNa,80gPro diet 6) If HD is discontinued and if GFR returns to normal levels then ALEXANDRA 1 pkt BID with meals may be considered to aid with wound healing 7) Continue current plan of care Expected Outcomes/Goals: 1) Pt to receive nutrition support within 7 days of NPO status 2) Pt labs to improve 3) Pt diet to advance 4) F/U in 2-3 days KAITLYN CENTENO MD Apr 19, 2024 19:24
[2024-04-19] MEDS: FREE WATER GT SCH (20:02)
[2024-04-19 22:48] LABS: INR 1.18 (0.9-1.15); Prothrombin Time 12.4 sec (9.3-11.8)
[2024-04-20] VITALS (108 sets, daily range): BP systolic 86–122; BP diastolic 49–71; PULSE 80–110; RESP 5–27; TEMP 97.3–99.5; O2SAT 91–100
[2024-04-20 05:24] LABS: INR 1.16 (0.9-1.15); Prothrombin Time 12.2 sec (9.3-11.8)
[2024-04-20 05:26] LABS: Partial Thromboplastin Time > 139.0 SEC (24.5-34.5)
[2024-04-20] MEDS ORDERED: HEPARIN DRIP/D5W 100UNITS/ML 250 ML IV SCH ×2 (06:00→06:40)
[2024-04-20 06:53] LABS: Mean Corpuscular Volume 89.5 fL (80.0-100.0); Nucleated Red Blood Cells % 0.1 %
[2024-04-20 06:58] LABS: Basophils # (auto) 0.2 10 ^3/uL (0-0.2); Eosinophils # (auto) 0.4 10 ^3/uL (0-0.8); Eosinophils % (auto) 2.3 % (0.0-7.0); Hematocrit 26.4 % (36.0-46.0); Hemoglobin 8.4 g/dL (12.2-16.2); Lymphocytes % (auto) 10.9 % (10.0-50.0); Mean Corpuscular Hemoglobin 28.4 pg (28.0-32.0); Mean Corpuscular Hgb Conc. 31.7 g/dL (32.0-36.0); Monocytes # (auto) 1.2 10 ^3/uL (0-1.3); Monocytes % (auto) 6.4 % (0.0-12.0); Neutrophils # (auto) 14.3 10 ^3/uL (1.6-8.6); Neutrophils % (auto) 79.4 % (37.0-80.0); Platelet Count (auto) 280 10^3/uL (140-450); Red Blood Cells 2.95 10^6/uL (4.0-5.20)
[2024-04-20 06:59] LABS: Red Cell Distribution Width 25.7 % (11.8-14.3)
[2024-04-20 07:09] LABS: INR 1.12 (0.9-1.15); Partial Thromboplastin Time 38.4 SEC (24.5-34.5); Prothrombin Time 11.8 sec (9.3-11.8)
[2024-04-20 07:17] LABS: Alanine Aminotransferase 42 U/L (7-40); Albumin 2.9 g/dL (3.2-4.8); Alkaline Phosphatase 92 U/L (46-116); Anion Gap 9 (5-15); Aspartate Aminotransferase 64 U/L (13-40); BUN/Creatinine Ratio 24.6 (10.0-20.0); Bilirubin, Total 0.4 mg/dL (0.2-1.0); Blood Urea Nitrogen 49 mg/dL (9-23); Calcium 8.3 mg/dL (8.7-10.4); Carbon Dioxide 24 mmol/L (20-31); Chloride 115 mmol/L (98-107); Glucose 121 mg/dL (74-106); Potassium 3.5 mmol/L (3.5-5.1); Sodium 148 mmol/L (136-145); Total Protein 5.9 g/dL (5.7-8.2)
[2024-04-20 08:23] LABS: Base Excess -2.6 mmol/L (-2.0-3.0)
[2024-04-20 09:19] LABS: Anisocytosis Moderate; Hypochromia Slight; Platelet Estimate Adequate
[2024-04-20] MEDS: HEPARIN DRIP/D5W 100UNITS/ML 250 ML IV SCH ×3 (10:15→22:00)
--- NOTE | 2024-04-20 11:17 | DVHPN2 ---
Progress Note - Dictate Date Seen: Apr 20, 2024 Has the PT tested + for MRSA If YES, has PT been informed?: No Medical Necessity Reason Pt with a Central, PICC or Fol: Yes The following are medically ne: Central Line, Martines Catheter Subjective Mariaa is evaluated the bedside in ICU. She remains intubated and sedated with no acute distress noted. She is hemodynamically stable with normal sinus rhythm on telemetry review. Sodium is 148. BUN 49 with a creatinine of 1.99. White blood cells are 18.0 with hemoglobin of 8.4. LFTs are slowly improving. Continue with current management including heparin drip and Bumex for diuresis. Patient remains on Levophed for blood pressure support. Further recommendation will depend on patient's clinical progression. Will continue to follow from a cardiac perspective. vital signs Vital Sign Date Time Temp Pulse Resp B/P (MAP) Pulse Ox O2 Delivery O2 Flow Rate FiO2 04/20/24 10:19 85 21 107/60 (76) 97 30 04/20/24 10:00 Mechanical Ventilator+ 04/20/24 06:15 97.9 208.2 Total Intake and Output 04/19/24 04/19/24 04/20/24 15:00 23:00 07:00 Intake Total 535.125 ml 1004.375 ml 1398.8 ml Output Total 460 ml 420 ml Balance 535.125 ml 544.375 ml 978.8 ml medications Current Medications Medications Dose Ordered Sig/Destini Route Start Time Stop Time Status Last Admin Dose Admin Heparin Sodium/ Dextrose 250 ml @ 18 mls/hr [id number] IV 03/31/24 23:45 UNV Midazolam HCl 50 ml @ 1 mls/hr Q24H IV 04/01/24 01:30 04/20/24 10:14 11 MLS/HR Ondansetron HCl 4 mg Q4HP PRN IV 04/01/24 05:00 Acetaminophen 650 mg Q6HP PRN PO 04/01/24 05:00 04/15/24 17:07 650 MG Nitroglycerin 0.4 mg Q5MINP PRN SL 04/01/24 05:00 04/17/24 01:05 0.4 MG Albumin Human 100 ml @ 100 mls/hr KIRAN PRN IV 04/03/24 07:00 Norepinephrine Bitartrate 32 mg/ Sodium Chloride 250 ml @ 0.469 mls/ hr Q24H IV 04/04/24 06:30 04/19/24 13:26 5.625 MLS/HR Enteral Nutritional Formula 1,000 ml 20ML/HR GT 04/09/24 11:15 04/12/24 10:35 1,000 ML Sodium Chloride 10 ml QSHIFT@10,22 IV 04/09/24 22:00 04/20/24 10:07 10 ML Iron Sucrose 110 ml @ 110 mls/hr DAILY@1200 IV 04/10/24 12:00 04/19/24 13:25 110 MLS/HR Amiodarone HCl 200 mg Q12HR PO 04/10/24 22:00 UNV Amiodarone HCl 200 mg Q12HR PO 04/10/24 22:00 04/20/24 10:06 200 MG Phenylephrine HCl 80 mg/Sodium Chloride 250 ml @ 7.5 mls/hr Q24H IV 04/10/24 19:30 04/15/24 10:40 1.875 MLS/HR Fentanyl Citrate 250 ml @ 2.5 mls/hr Q24H IV 04/11/24 15:15 04/20/24 10:16 15 MLS/HR Nystatin 1 applic BID TOP 04/12/24 22:00 04/20/24 10:07 1 APPLIC Levofloxacin 50 ml @ 50 mls/hr DAILY IV 04/13/24 10:00 04/20/24 10:06 50 MLS/HR Dexmedetomidine HCl 400 mcg/ Dextrose 100 ml @ 6.05 mls/hr [id number] IV 04/13/24 15:45 04/15/24 11:06 21.175 MLS/HR Enoxaparin Sodium 40 mg DAILY SC 04/14/24 10:00 Hold 04/16/24 09:20 40 MG Bumetanide 1 mg DAILY IV 04/16/24 10:00 04/20/24 10:07 1 MG Morphine Sulfate 1 mg Q4HP PRN IV 04/16/24 15:30 Albuterol 2.5 mg Q4HR NEB 04/16/24 18:00 04/20/24 10:18 2.5 MG Ipratropium [place] 0.5 mg Q4HR NEB 04/16/24 18:00 10/20/24 10:18 0.5 MG Budesonide 0.5 mg BID NEB 04/16/24 22:00 04/20/24 10:18 0.5 MG Lorazepam 0.5 mg Q6HP PRN IV 04/16/24 21:45 Clopidogrel Bisulfate 75 mg DAILY PO 04/18/24 10:00 04/20/24 10:06 75 MG Purified Water 300 ml Q4HR GT 04/19/24 19:30 04/20/24 10:07 300 ML Heparin Sodium/ Dextrose 250 ml @ 13 mls/hr [id number] IV 04/20/24 06:40 04/20/24 10:15 13 MLS/HR laboratory and microbiology Laboratory Tests 04/20/24 06:12 Test 04/20/24 06:12 Range/Units Serum Glucose 121 H 74-106 mg/dL Assessment/Plan There was question about EKG showing STEMI. Patient was intubated again by primary team and taken to Biomedical Engineering Technologist. s/p Cardiac cath Was found to have CREAM MAKER of mid LAD (considered old) with full of thrombus. s/p balloon angioplasty with minimal / partial result s/p thoracoscopy and chest tube placement extubated Patient is a 68-year-old female who was transferred from [facility]. She originally presented to [facility] for shortness of breath ongoing for few days. She is intubated and is being managed in ICU. Information was obtained by reviewing the chart and communicating with staff. Reportedly, she presented with respiratory failure to [facility] (oxygen saturation was 88%) and over there was found to have white blood cell count of 26.6, hemoglobin of 11.1, creatinine of 5.6, potassium of 5.6 and troponin of 1.01. She was given 365 mg of aspirin in [facility]. She did have an episode of atrial fibrillation with RVR with questionable ST changes and was transferred to our facility for further care. She was also found to have right pleural effusion in [facility] and was diagnosed with non-STEMI. Intubated, on vent support. Obese. Mucosa is pale. Scattered rhonchi in the lungs is heard. Cardiac: Regular, no thrill/gallop. Abdomen is soft with increased bowel sounds. There is no gross mass. Extremities reveal 1+ edema bilaterally. Available past medical history includes obesity and questionable history of psoriasis. WBC: 25.3 - 23.7 - 20.2 - 20.5 - 17.6 - 18.4 - 19.2 - 19.4 - 22.2 - 16.4 - 16.1 - 19.5 - 14.7 - 12.3 - 9.8 - 10.0 - 8.3 - 9.2 - 10.2 - 11.4 - 10.3 - 12.0 - 13.8 Hemoglobin: 10.8 - 9.1 - 8.5 - 8.4 - 8.8 - 8.6 - 8.9 - 8.1 - 8.4 - 8.1 - 8.1 - 8.2 - 8.0 - 7.4 - 7.4 - 7.7 - 7.1 - 8.0 - 7.5 - 8.8 - 7.1 - 9.0 - 8.9 - 9.0 D-dimer: 3.62 Creatinine: 5.67 - 5.78 - 5.41 - 4.92 - 4.55 - 4.68 - 4.71 - 4.64 - 4.48 - 3.83 - 3.66 - 3.65 - 3.25 - 2.82 - 2.41 - 2.34 - 2.01 - 1.90 - 1.60 - 1.83 - 1.73 - 1.74 - 1.76 - 1.78 - 1.82 Potassium: 6.0 - 6.3 - 6.1 - 6.0 - 5.3 - 5.0 - 4.9 - 4.8 - 5.1 - 5.4 - 4.9 - 5.3 - 4.8 - 4.5 - 4.7 - 4.3 - 4.2 - 3.9 - 4.6 - 3.8 - 3.5 - 3.3 - 3.6 - 3.6 - 4.0 - 3.5 - 4.0 - 3.7 Lactic acid: 3.3 - 3.4 - 2.3 - 2.5 - 2.5 - 2.7 - 2.4 - 2.5 - 3.1 - 2.3 - 1.7 - 1.7 TSH: 1.71 BNP: 274.69 - 1944.81 - 373.79 Troponin (high sensitive): 5889 - 2512 - 2930 - 4538 - 491 - 7999 Blood culture: positive Pleural fluid culture: E-coli Digoxin level: 2.09 Stool OB: positive Chest x-ray revealed: IMPRESSION: 1. Moderate right pleural effusion. 2. Cardiomegaly with mild pulmonary vascular congestion bilaterally. Repeat chest x-ray revealed: IMPRESSION: 1. Endotracheal tube and gastric tubes in place as described. 2. Right IJ central venous catheter projects over the lower SVC. 3. Mild cardiomegaly and prominence of the pulmonary vasculature. 4. Moderate to large right pleural effusion. Repeat chest x-ray revealed: IMPRESSION: Similar lung aeration with large right pleural effusion. No pneumothorax seen. Stable lines and tubes. Repeat chest x-ray revealed: IMPRESSION: Similar lung aeration with large right pleural effusion. No pneumothorax seen. Stable lines and tubes. Repeat chest xry revealed: Lines and tubes: ET in the mid thoracic trachea. NG crosses midline. Right CVC is stable. Left HD catheter projects over the mediastinum. Cardiomediastinal silhouette: Enlarged Pulmonary vasculature: prominent Lung expansion: low Lung airspace: patchy bilateral airspace opacity. Lung interstitium: normal Pleura: Similar large right effusion. Pneumothorax: no Bones: Unremarkable Other: no IMPRESSION: Lines and tubes, as above. Similar lung aeration bilaterally with a right pleural effusion and patchy airspace opacities. Repeat chest xry revealed: IMPRESSION: 1. Stable position of the support lines and tubes. 2. Interstitial and alveolar opacities. Repeat chest xry revealed: IMPRESSION: Unchanged multifocal airspace disease. Small to moderate right pleural effusion ; possibly loculated. Repeat chest xry revealed: IMPRESSION: Lines and tubes in satisfactory position. No significant interval change. Repeat chest xry revealed: IMPRESSION: 1. Support lines and tubes in appropriate position. 2. Pulmonary vascular congestion. 3. Bilateral pleural effusions, right greater than left. Repeat chest xry revealed: IMPRESSION: 1. Support lines and tubes in appropriate position. 2. Pulmonary vascular congestion. 3. Bilateral pleural effusions, right greater than left. Repeat chest xry revealed: IMPRESSION: Interval placement of right chest tube which projects deep into the right hilar region. Repeat chest xry revealed: IMPRESSION: No interval change Repeat chest xry revealed: Findings/IMPRESSION: Right IJ CVC terminating in the SVC. Endotracheal tube projected 5 cm superior to the mili. Enteric tube projected below the GE junction. Right-sided PICC projects terminating near the cavoatrial junction. Small bilateral pleural effusions and/or atelectasis with superimposed infection not excluded. Repeat chest xry revealed: MPRESSION: 1. Bilateral pleural effusions and airspace disease right greater than left. Repeat chest xry revealed: IMPRESSION: 1. Endotracheal tube terminates 6.0 cm above the mili, previously 3.1 cm above the mili. Otherwise, No significant interval change. Repeat chest xry revealed: IMPRESSION: 1. Endotracheal tube terminates 6.0 cm above the mili, previously 3.1 cm above the mili. Otherwise, No significant interval change. Repeat chest xry revealed: IMPRESSION: Lines and tubes in satisfactory position. No significant interval change. Repeat chest xry revealed: IMPRESSION: Lines and tubes in satisfactory position. No significant interval change. Repeat chest xry revealed: IMPRESSION: Lines and tubes in satisfactory position. No significant interval change. Repeat chest xry revealed: IMPRESSION: Lines and tubes in satisfactory position. No significant interval change. Repeat chest xry revealed: IMPRESSION: Endotracheal tube projects in appropriate position. Otherwise no significant change Renal ultrasound revealed: IMPRESSION: 1. Right kidney measures 13.4 cm. Decreased cortical thickness on the right. 2. Left kidney measures 10.2 cm. 3. No hydronephrosis on the right grade 1 hydronephrosis on the left. 4. Bilateral renal calculi. CT scan of the chest/abdomen and pelvis revealed: IMPRESSION: 1. Moderate partially loculated right pleural effusion and consolidations in the right middle and lower lobes which could be pneumonia and/or atelectasis. 2. Mild cardiomegaly, mild interstitial pulmonary edema, and body wall edema. 3. There is a 1.9 cm calculus in the right UPJ with mild right hydronephrosis 4. There is a 2.6 cm somewhat staghorn appearing calculus in the left renal pelvis and UPJ causing mild predominantly mid to lower pole left hydronephrosis. Mild soft tissue stranding about the left renal pelvis which could be due to obstruction or superimposed infection. Correlate with urinalysis. 5. Partial duplication of the left renal collecting system without hydronephrosis in the upper pole. 6. Moderate right perinephric, right retroperitoneal, and bilateral extraperitoneal pelvis low-density fluid and very mild left retroperitoneal low-density fluid. This could be fluid related to bilateral renal obstructions and forniceal ruptures versus evolved retroperitoneal hematoma. This is suboptimally evaluated without intravenous contrast. 7. Fluid-filled small and large bowel loops which may be physiologic or related to enterocolitis and could be manifesting as loose stools and/or diarrhea. 8. Prominent endometrium measuring at least 2.8 cm, suboptimally evaluated by CT. Recommend characterization with nonemergent pelvic ultrasound if clinically indicated. 9. Mild hepatosplenomegaly. 10. Moderate three-vessel calcified coronary artery disease and mild aortic valve calcification. 11. Right IJ central venous catheter in place terminating in the low SVC. 12. Small soft tissue stranding in the right supraclavicular neck which could be blood products. 13. Endotracheal tube terminates above the mili. CT of the head revealed: IMPRESSION: 1. No acute intracranial abnormality. 2. Generalized cerebral volume loss and mild chronic microvascular ischemic change. 3. Partially imaged endotracheal tube. Chest ultrasound revealed: Findings/Impression: There is a trace bilateral pleural effusion. Thoracentesis: FINDINGS: Moderate size, complex and septated right pleural effusion. Aspirated fluid is thick and green in consistency. IMPRESSION: Right thoracentesis with 250 mL removed for laboratory analysis. EKG in [facility] revealed sinus tachycardia, poor R-wave progression old inferior wall PR. later EKG revealed atrial fibrillation with RVR. Repeat EKGs questioned STEMI. but resolved later. Telemetry reveals sinus rhythm, occasions of A-fib with RVR, SVT Echocardiogram revealed: Technically limited study secondary to poor acoustic windows. Left ventricle: Left ventricle was normal-sized. Mild concentric left ventricular hypertrophy was seen. LVEF was 55-60%. No gross wall motion abnormality was observed, but its presence can not be ruled out on the basis of this study. Right ventricle is mildly dilated with normal systolic function. Left atrium was mildly dilated. Right atrium was normal-sized. Aortic valve was trileaflet. There was no aortic insufficiency. There was aortic sclerosis with no stenosis. There was trivial mitral/tricuspid regurgitation. Pulmonary valve was not well visualized. Right ventricular systolic pressure was assessed around 48 mm Hg. There was no pericardial effusion. Left heart cath revealed: One-vessel coronary artery disease, CREAM MAKER of mid LAD, Attempted to open up the LAD CREAM MAKER, partially/minimally successful (status post balloon angioplasty). LVEF of 25% (dilated LV). Cardiac suggestion for management: Dual antiplatelet therapy (loaded with aspirin and Plavix). Guideline directed medical therapy for systolic heart failure Patient is a 68-year-old morbidly obese patient who presented with respiratory failure to the hospital. Presentation is in favor of sepsis/septic shock. Multiorgan failure is observed. She is intubated and on vent support. She is on multiple pressor support. Life findings are in favor of acute renal failure. She also is known to have nephrolithiasis with history of staghorn calculi. Cardiac-ceballos, the patient did have episode of atrial fibrillation with RVR. She is found to have increased troponin. Presentation questions non-STEMI and possibly type 2 ischemia. Recognizing the presentation, ischemic workup should be postponed after clinical stability (only if patient recovers higher brain function). Is being followed by Nephrology. Had episodes of tachyarrhythmia. Loaded with Digoxin. Positive cultures. Repeated a-fib with RVR. Was evaluated by Interventional Cardiology para professional for STEMI (not considered STEMI). As there was repeated EKG changes in favor of STEMI, patient was taken to nutrient management specialist: Was found to have CREAM MAKER of mid LAD (considered old) with full of thrombus. s/p balloon angioplasty with minimal / partial result Septic shock Multiorgan failure Acute respiratory failure on vent support Acute renal failure Nephrolithiasis Staghorn calculi Hydronephrosis Abnormal troponin, non-STEMI Atrial fibrillation with RVR Paroxysmal AFib Acute heart failure, diastolic Hepatosplenomegaly Pleural effusion Status post thoracentesis Morbid obesity s/p Cardioversion for A-fib with RVR s/p thoracoscopy and chest tube placement CAD: CREAM MAKER of mid LAD (considered old) with full of thrombus. s/p balloon angioplasty with minimal / partial result Cardiac suggestion for management: Manage in ICU Follow-up electrolytes and kidney function tests and correct abnormalities Pressure support to keep mean arterial pressure above 65 Amiodarone oral/O mg BID Daily aspirin (81 mg daily) Plavix: 75 mg daily Heparin drip for now If regains higher brain function: Life Vest s/p thoracoscopy and chest tube placement IV metoprolol PRN for a-fib with RVR episodes. Sepsis workup and management as per primary team Evaluation and management of respiratory failure as per primary team/Pulmonary Evaluation and management of nephrolithiasis/hydronephrosis as per primary/Urology Evaluation and management of acute renal failure as per Nephrology Further evaluation and management as per above and clinical course. A total of 75 minutes was spent reviewing the patient record, examining the patient, making a diagnostic and therapeutic plan, discussing this plan with medical personnel, following up on diagnostic studies and following the patient for clinical stability excluding any and all procedures. At least 50% of this time was spent in direct, [id number] contact. Thank you for allowing me to participate in this patient's care. Further recommendations will depend on patient's clinical course. Please do not hesitate to contact me if you have any questions or concerns. This medical document was created using electronic medical record system with [employer] dictation system. Although this document has been carefully reviewed, there may still be some phonetic and typographical errors. These areas are purely typographical due to the imperfection of the software programs, and do not reflect any compromise in the patient's medical care. Dietary Evaluation Review Comments: 1) If GI is accessible consider Nepro 1.8 @ 30 ml/hr goal rate as tolerated with current rate of propofol on board. 2) If pt remains NPO >7 days consider TPN to meet at least 75% of estimated needs 3) If pt continues to receive HD, advance pt diet when medically feasible to a Renal Standard diet modified per RUG CLEANING SUPERVISOR recommendations 4) If HD is discontinued and GFR is within normal range, advance pt diet to a Regular diet, modified per RUG CLEANING SUPERVISOR recommendations 5)If HD is discontinued and GFR lies within STG 1-4, advance pt diet to a Renal Specific K2,lowphos,HECTOR,2gmNa,80gPro diet 6) If HD is discontinued and if GFR returns to normal levels then ALEXANDRA 1 pkt BID with meals may be considered to aid with wound healing 7) Continue current plan of care Expected Outcomes/Goals: 1) Pt to receive nutrition support within 7 days of NPO status 2) Pt labs to improve 3) Pt diet to advance 4) F/U in 2-3 days Plan discussed with: Other (RN) Provider Statement: I have reviewed the case with my supervising physician. We have agreed with the plan of care. ELVA HERRERA Apr 20, 2024 11:17
--- NOTE | 2024-04-20 13:11 | DVHPN2 ---
Subjective The patient seen and examined at bedside. No new change today. Reviewed: Care Plan, H&P, Labs, Medications, Previous Orders, Radiology, Other (Consultants) Changes from previous H/P or p: No Changes Objective Vitals Vital Signs Date Time Temp Pulse Resp B/P (MAP) Pulse Ox O2 Delivery O2 Flow Rate FiO2 04/20/24 12:00 22 96 Mechanical Ventilator+ 30 30 04/20/24 10:19 85 107/60 (76) 04/20/24 06:15 97.9 208.2 Intake/Output Intake and Output 04/20/24 07:00 Intake Total 2983.394 ml Output Total 880 ml Balance 2103.394 ml Intake Oral 1360 ml IV Total 1257.394 ml Tube Feeding 366 ml Output Urine Total 850 ml Chest Tube Drainage Total 30 ml General Appearance: Other (Intubated and sedated) HEENT: Atraumatic Lungs: Other (Few crackles bilateral lungs) Cardiovascular: Regular rate Abdomen: Soft Skin: Other (Mostly gone the macular rash in the abdominal and chest in area. Also redness in the lower abdominal folds and inguinal areas are better) Medications Current Medications Medications Dose Ordered Sig/Destini Route Start Time Stop Time Status Last Admin Dose Admin Heparin Sodium/ Dextrose 250 ml @ 18 mls/hr [id number] IV 03/31/24 23:45 UNV Midazolam HCl 50 ml @ 1 mls/hr Q24H IV 04/01/24 01:30 04/20/24 10:14 11 MLS/HR Ondansetron HCl 4 mg Q4HP PRN IV 04/01/24 05:00 Acetaminophen 650 mg Q6HP PRN PO 04/01/24 05:00 04/15/24 17:07 650 MG Nitroglycerin 0.4 mg Q5MINP PRN SL 04/01/24 05:00 04/17/24 01:05 0.4 MG Albumin Human 100 ml @ 100 mls/hr KIRAN PRN IV 04/03/24 07:00 Norepinephrine Bitartrate 32 mg/ Sodium Chloride 250 ml @ 0.469 mls/ hr Q24H IV 04/04/24 06:30 04/19/24 13:26 5.625 MLS/HR Enteral Nutritional Formula 1,000 ml 20ML/HR GT 04/09/24 11:15 04/12/24 10:35 1,000 ML Sodium Chloride 10 ml QSHIFT@10,22 IV 04/09/24 22:00 04/20/24 10:07 10 ML Iron Sucrose 110 ml @ 110 mls/hr DAILY@1200 IV 04/10/24 12:00 Hold 04/19/24 13:25 110 MLS/HR Amiodarone HCl 200 mg Q12HR PO 04/10/24 22:00 UNV Amiodarone HCl 200 mg Q12HR PO 04/10/24 22:00 04/20/24 10:06 200 MG Phenylephrine HCl 80 mg/Sodium Chloride 250 ml @ 7.5 mls/hr Q24H IV 04/10/24 19:30 04/15/24 10:40 1.875 MLS/HR Fentanyl Citrate 250 ml @ 2.5 mls/hr Q24H IV 04/11/24 15:15 04/20/24 10:16 15 MLS/HR Nystatin 1 applic BID TOP 04/12/24 22:00 04/20/24 10:07 1 APPLIC Levofloxacin 50 ml @ 50 mls/hr DAILY IV 04/13/24 10:00 04/20/24 10:06 50 MLS/HR Dexmedetomidine HCl 400 mcg/ Dextrose 100 ml @ 6.05 mls/hr [id number] IV 04/13/24 15:45 04/15/24 11:06 21.175 MLS/HR Enoxaparin Sodium 40 mg DAILY SC 04/14/24 10:00 Hold 04/16/24 09:20 40 MG Bumetanide 1 mg DAILY IV 04/16/24 10:00 04/20/24 10:07 1 MG Morphine Sulfate 1 mg Q4HP PRN IV 04/16/24 15:30 Albuterol 2.5 mg Q4HR NEB 04/16/24 18:00 04/20/24 10:18 2.5 MG Ipratropium [place] 0.5 mg Q4HR NEB 04/16/24 18:00 04/20/24 10:18 0.5 MG Budesonide 0.5 mg BID NEB 04/16/24 22:00 04/20/24 10:18 0.5 MG Lorazepam 0.5 mg Q6HP PRN IV 04/16/24 21:45 Clopidogrel Bisulfate 75 mg DAILY PO 04/18/24 10:00 04/20/24 10:06 75 MG Purified Water 300 ml Q4HR GT 04/19/24 19:30 04/20/24 10:07 300 ML Heparin Sodium/ Dextrose 250 ml @ 13 mls/hr [id number] IV 04/20/24 06:40 04/20/24 10:15 13 MLS/HR Laboratory Results Laboratory Tests 04/20/24 06:12 Chemistry Test 04/20/24 06:12 Albumin 2.9 g/dL (3.2-4.8) L Calcium Level 8.3 mg/dL (8.7-10.4) L Total Protein 5.9 g/dL (5.7-8.2) Coagulation Test 04/19/24 15:19 04/19/24 22:04 04/20/24 04:30 04/20/24 06:12 Prothrombin Time 12.5 sec (9.3-11.8) H 12.4 sec (9.3-11.8) H 12.2 sec (9.3-11.8) H 11.8 sec (9.3-11.8) Prothrombin Time INR 1.19 (0.9-1.15) H 1.18 (0.9-1.15) H 1.16 (0.9-1.15) H 1.12 (0.9-1.15) Activated Partial Thromboplast Time 93.9 SEC (24.5-34.5) *H 72.0 SEC (24.5-34.5) *H > 139.0 SEC (24.5-34.5) *H 38.4 SEC (24.5-34.5) H LFT Test 04/20/24 06:12 Alanine Aminotransferase (ALT) 42 U/L (7-40) H Alkaline Phosphatase 92 U/L (46-116) Aspartate Amino Transferase (AST) 64 U/L (13-40) H Total Bilirubin 0.4 mg/dL (0.2-1.0) Urinalysis Test 04/16/24 13:10 Urine Color Colorless (Yellow) Urine Clarity Turbid (Clear) H Urine pH 5.5 (5.0-9.0) Urine Specific [place] 1.011 (1.001-1.035) Urine Protein Trace (Negative) H Urine Ketones Negative (Negative) Urine Blood 2+ /uL (Negative) H Urine Nitrite Negative (Negative) Urine Bilirubin Negative (Negative) Urine Urobilinogen Normal mg/dL (Negative) Urine Leukocyte Esterase 3+ /uL (Negative) Urine RBC 18 /hpf (0 - 4) Urine WBC 179 /hpf (0 - 5) Urine WBC Clumps Present /hpf (None Seen) Urine Squamous Epithelial Cells Few /hpf (<5) Urine Bacteria Few /hpf (None Seen) H Urine Mucus Few (None Seen) Urine Yeast (Budding) Many /hpf (None Seen) Urine Osmolality 375 mOsm/kg Urine Glucose Normal mg/dL (Normal) Blood Gas Results Test 04/20/24 08:11 Arterial Blood pH 7.430 (7.350-7.450) FiO2 % 30.0 Microbiology Microbiology Date/Time Source Procedure Growth Status 04/18/24 15:02 Sputum Gram Stain Pending Resulted 04/18/24 15:02 Sputum Respiratory Culture - Preliminary Resulted 04/18/24 10:50 Voided Urine Urine Culture - Preliminary Resulted 04/18/24 09:20 Blood Blood Culture - Preliminary NO GROWTH AFTER 48 HOURS OF INCUBATION. Resulted 04/08/24 08:02 Thoracic Fluid Gram Stain - Final Complete 04/08/24 08:02 Thoracic Fluid Anaerobic Culture - Final Complete 04/08/24 08:02 Thoracic Fluid Aerobic Culture - Final Complete 04/01/24 11:19 Nose MRSA Screen - Final Complete Assessment/Plan Assessment/Plan Neurology Sedation -currently on midazolam and fentanyl Vasopressors -currently on phenylephrine Respiratory Acute hypoxic respirtory failure likel due to right-sided pleural effusion and consolidation on right middle and lower lobes -initial chest x-ray showed severe right lower lobe opacities consistent with either consolidation or moderate to severe pleural effusion -CT of the chest and abdomen showed moderate partial loculated right pleural effusion and consolidation on right middle/lower lobes. Mild cardiomegaly and interstitial pulmonary edema. It also showed right hydronephrosis with 1.9 cm calculus into the right UPJ. There is also a 2.6 cm staghorn appearing calculus causing mid to lower pole left hydronephrosis. -the patient was initially started on Zosyn, vancomycin and cefepime. We discontinued Zosyn and cefepime. -we will switch linezolid back to vancomycin due to low platelet. -Continue IV vanco and meropenem -consulted interventional radiologist which performed right-sided thoracentesis removing 250 mL of fluid which were sent to analysis. -Surgical thoracoscopy was performed on 04/08/2024 with evacuation of empyema and insertion of a chest tube draining approximately 200 cc of purulent material. -Patient was extubated on 04/16/24 Patient was reintubated on 04/17/24 due to tachypneic and STEMI which required left heart cath -currently on any ventilator on the following parameters: VT 500, RR 18, FiO2 30%, peep five, saturating 96%. -Right chest tube had no output in the last 24 hours. Sepsis in the setting of loculated right-sided pleural effusion (EMPYEMA) and pneumonia -ordered blood cultures, sputum cultures and urine culture -currently on IV meropenem and linezolid -Will monitor plateletes closely -S/P right-sided thoracentesis removing 250 mL of fluids. -chest x-ray this morning showed still right-sided opacities and left opacities in the base of the lung. -Surgical thoracoscopy was performed on 04/08/2024 with evacuation of empyema and insertion of a chest tube draining approximately 200 cc of purulent material. -Right chest tube is draining 10 cc in the last 12 hours -Patient was extubated on 04/16/24 Patient was reintubated on 04/17/24 due to tachypneic and STEMI which required left heart cath which showed mild LAD with chronic total occlusion which was attempted to open, LAD and diagonal were full of thrombus. Mid RCA also had 50% lesion. No stents placed at this time. Cardiology Acute on chronic systolic/diastolic heart failure -BNP came back elevated at 274.69 -initial EKG showed sinus tachycardia with PACs but no ST segment elevation or depression at that time -troponins came back elevated at 1469 and peaked up to 1684 -echocardiogram is showing an LVEF of 55-60% with increased RVSP at 48 mmHg and no pericardial effusion STEMI (leads v2-v4) -troponins came back elevated at 1469 and peaked up to 1684 -Trend trops -patient was intubated and taken to the OR for left heart catheterization on 04/17/24 which showed mild LAD with chronic total occlusion which was attempted to open, LAD and diagonal were full of thrombus. Mid RCA also had 50% lesion. No stents placed at this time. -Continue heparin drip -Continue Plavix 75 mg q.d. Atrial fibrilation with RVR -CHADS VASC score HAS BLED score -heparin drip was hold for right-sided chest tube placement and david catheter placement -patient underwent atrial flutter with a heart rate of 180 to 200, cardiology decided to perform synchronized cardioversion and continue amiodarone drip. -S/P multiple synchronized cardioversions x6 -Continue amiodarone 200mg PO BID -patient was given two doses of digoxin but due to high levels of digoxin blood 3rd dose was held -currently on heparin drip Nephrology Bilateral hydronephrosis -CT scan of the chest and abdomen showed right hydronephrosis with 1.9 cm calculus into the right UPJ, there was also a 2.6 cm staghorn appearing calculus causing mid to lower pole left hydronephrosis. -nephrology on board -consulted Urology for bilateral nephrostomy tube placement -David catheter placed on L IJ on 04/08/24 REMOVED CHRISTOPH likely postobstructive nephropathy -most likely secondary to bilateral renal calculi -creatinine was 1.82 and BUN 52. Kidney function slightly improving -nephrology and urology on board -consulted Urology for bilateral nephrostomy tube placement, if therapy does not improve patient might need hemodialysis as last resource Hematology Acute microcytic hypochromic anemia - Transfused 1 pack of RBCs on 04/16/24 -Monitor hb and hct, transfuse as need. Nutrition -Continue EN Nepro at 30cc/hr Hyperkalemia -monitor closely DVT prophylaxys -Currently on heparin Drip Lines: PICC line placed Peripheral in right wrist placed on 03/31/2024 Peripheral in left forearm placed on 03/31/2024 Plan discussed with: Other (RN) Date of Service: Apr 20, 2024 Billing Provider: MINDY BOYD MD Common Visit Codes: [id number] INP/OBS CARE(HIGH) MINDY BOYD MD Apr 20, 2024 13:11
[2024-04-20 14:00] LABS: INR 1.13 (0.9-1.15); Partial Thromboplastin Time 36.7 SEC (24.5-34.5); Prothrombin Time 11.9 sec (9.3-11.8)
--- NOTE | 2024-04-20 20:45 | DVHPN2 ---
Progress Note Date Seen: Apr 20, 2024 Has the PT tested + for MRSA If YES, has PT been informed?: No Medical Necessity Reason Pt with a Central, PICC or Fol: Yes The following are medically ne: Central Line, Martines Catheter Subjective Patient reports: Other Review of Systems: Deferred Objective vital signs Vital Sign Date Time Temp Pulse Resp B/P (MAP) Pulse Ox O2 Delivery O2 Flow Rate FiO2 04/20/24 20:21 90 22 99/56 (70) 95 30 04/20/24 18:45 99.1 210.4 04/20/24 18:00 Mechanical Ventilator+ Total Intake and Output 04/19/24 04/19/24 04/20/24 15:00 23:00 07:00 Intake Total 535.125 ml 1004.375 ml 1443.894 ml Output Total 460 ml 420 ml Balance 535.125 ml 544.375 ml 1023.894 ml medications Current Medications Medications Dose Ordered Sig/Destini Route Start Time Stop Time Status Last Admin Dose Admin Heparin Sodium/ Dextrose 250 ml @ 18 mls/hr [id number] IV 03/31/24 23:45 UNV Midazolam HCl 50 ml @ 1 mls/hr Q24H IV 04/01/24 01:30 04/20/24 17:45 11 MLS/HR Ondansetron HCl 4 mg Q4HP PRN IV 04/01/24 05:00 Acetaminophen 650 mg Q6HP PRN PO 04/01/24 05:00 04/15/24 17:07 650 MG Nitroglycerin 0.4 mg Q5MINP PRN SL 04/01/24 05:00 04/17/24 01:05 0.4 MG Albumin Human 100 ml @ 100 mls/hr KIRAN PRN IV 04/03/24 07:00 Norepinephrine Bitartrate 32 mg/ Sodium Chloride 250 ml @ 0.469 mls/ hr Q24H IV 04/04/24 06:30 04/19/24 13:26 5.625 MLS/HR Enteral Nutritional Formula 1,000 ml 20ML/HR GT 04/09/24 11:15 04/12/24 10:35 1,000 ML Sodium Chloride 10 ml QSHIFT@10,22 IV 04/09/24 22:00 04/20/24 10:07 10 ML Iron Sucrose 110 ml @ 110 mls/hr DAILY@1200 IV 04/10/24 12:00 Hold 04/19/24 13:25 110 MLS/HR Amiodarone HCl 200 mg Q12HR PO 04/10/24 22:00 UNV Amiodarone HCl 200 mg Q12HR PO 04/10/24 22:00 04/20/24 10:06 200 MG Phenylephrine HCl 80 mg/Sodium Chloride 250 ml @ 7.5 mls/hr Q24H IV 04/10/24 19:30 04/15/24 10:40 1.875 MLS/HR Nystatin 1 applic BID TOP 04/12/24 22:00 04/20/24 10:07 1 APPLIC Levofloxacin 50 ml @ 50 mls/hr DAILY IV 04/13/24 10:00 04/20/24 10:06 50 MLS/HR Enoxaparin Sodium 40 mg DAILY SC 04/14/24 10:00 Hold 04/16/24 09:20 40 MG Bumetanide 1 mg DAILY IV 04/16/24 10:00 04/20/24 10:07 1 MG Morphine Sulfate 1 mg Q4HP PRN IV 04/16/24 15:30 Albuterol 2.5 mg Q4HR NEB 04/16/24 18:00 04/20/24 18:55 2.5 MG Ipratropium [place] 0.5 mg Q4HR NEB 04/16/24 18:00 04/20/24 18:54 0.5 MG Budesonide 0.5 mg BID NEB 04/16/24 22:00 04/20/24 10:18 0.5 MG Lorazepam 0.5 mg Q6HP PRN IV 04/16/24 21:45 Clopidogrel Bisulfate 75 mg DAILY PO 04/18/24 10:00 04/20/24 10:06 75 MG Purified Water 300 ml Q4HR GT 04/19/24 19:30 04/20/24 17:40 300 ML Heparin Sodium/ Dextrose 250 ml @ 15 mls/hr [id number] IV 04/20/24 15:00 Examination: GENERAL:Abnormal, HEENT:Abnormal, MSK:Abnormal, SKIN:Abnormal, NEURO:Abnormal laboratory and microbiology Laboratory Tests 04/20/24 06:12 Test 04/20/24 06:12 Range/Units Serum Glucose 121 H 74-106 mg/dL Microbiology Date/Time Source Procedure Growth Status 04/18/24 15:02 Sputum Gram Stain Pending Resulted 04/18/24 15:02 Sputum Respiratory Culture - Preliminary Resulted 04/18/24 10:50 Voided Urine Urine Culture - Preliminary Resulted 04/18/24 09:20 Blood Blood Culture - Preliminary NO GROWTH AFTER 48 HOURS OF INCUBATION. Resulted 04/08/24 08:02 Thoracic Fluid Gram Stain - Final Complete 04/08/24 08:02 Thoracic Fluid Anaerobic Culture - Final Complete 04/08/24 08:02 Thoracic Fluid Aerobic Culture - Final Complete 04/01/24 11:19 Nose MRSA Screen - Final Complete Problem List/Assessment/Plan Problem List/Assessment/Plan Acute kidney injury due to ATN/hemodynamic from shock, needed intermittent hemodialysis now off Acute respiratory failure, intubated on ventilator Right thoracoscopy, evacuation of empyema, insertion of chest tube on 04/08 NSTEMI septic shock empyema metabolic acidosis resolved b/l renal stones w/ hydronephrosis--possible staghorn morbid obesity s/p hyperkalemia afib RVR Hypernatremia Recommendations Increase free water flushes to 300 q.4 hours Renal function improved off dialysis diuretics iv still edematous Plan discussed with: Other Dietary Evaluation Review Comments: 1) If GI is accessible consider Nepro 1.8 @ 30 ml/hr goal rate as tolerated with current rate of propofol on board. 2) If pt remains NPO >7 days consider TPN to meet at least 75% of estimated needs 3) If pt continues to receive HD, advance pt diet when medically feasible to a Renal Standard diet modified per POWER GENERATING PLANT OPERATOR recommendations 4) If HD is discontinued and GFR is within normal range, advance pt diet to a Regular diet, modified per POWER GENERATING PLANT OPERATOR recommendations 5)If HD is discontinued and GFR lies within STG 1-4, advance pt diet to a Renal Specific K2,lowphos,HECTOR,2gmNa,80gPro diet 6) If HD is discontinued and if GFR returns to normal levels then ALEXANDRA 1 pkt BID with meals may be considered to aid with wound healing 7) Continue current plan of care Expected Outcomes/Goals: 1) Pt to receive nutrition support within 7 days of NPO status 2) Pt labs to improve 3) Pt diet to advance 4) F/U in 2-3 days KAITLYN CENTENO MD Apr 20, 2024 20:45
[2024-04-20 20:48] LABS: INR 1.11 (0.9-1.15); Partial Thromboplastin Time 27.4 SEC (24.5-34.5); Prothrombin Time 11.7 sec (9.3-11.8)
[2024-04-20] MEDS: HEPARIN SODIUM (PORCINE) 5000 UNITS/ML 1ML VIAL ONE (21:47)
[2024-04-20] MEDS ORDERED: HEPARIN SODIUM (PORCINE) 5000 UNITS/ML 1ML VIAL IV ONE (22:00)
[2024-04-20] MEDS: HEPARIN SODIUM (PORCINE) 5000 UNITS/ML 1ML VIAL IV ONE (22:01)
--- NOTE | 2024-04-20 23:09 | DVHPN2 ---
Progress Note - Dictate Date Seen: Apr 20, 2024 Has the PT tested + for MRSA If YES, has PT been informed?: No Medical Necessity Reason Pt with a Central, PICC or Fol: Yes The following are medically ne: Central Line, Whipple Catheter Reason for whipple catheter: Strict I&O Subjective Patient seen and examined at bedside. Sedated, intubated on mechanical ventilator. Overnight events reviewed. vital signs Vital Sign Date Time Temp Pulse Resp B/P (MAP) Pulse Ox O2 Delivery O2 Flow Rate FiO2 04/20/24 22:33 80 21 106/55 (72) 96 30 04/20/24 22:15 98.6 209.5 04/20/24 22:00 Mechanical Ventilator+ Total Intake and Output 04/19/24 04/19/24 04/20/24 15:00 23:00 07:00 Intake Total 535.125 ml 1004.375 ml 1443.894 ml Output Total 460 ml 420 ml Balance 535.125 ml 544.375 ml 1023.894 ml medications Current Medications Medications Dose Ordered Sig/Destini Route Start Time Stop Time Status Last Admin Dose Admin Heparin Sodium/ Dextrose 250 ml @ 18 mls/hr [id number] IV 03/31/24 23:45 UNV Midazolam HCl 50 ml @ 1 mls/hr Q24H IV 04/01/24 01:30 04/20/24 17:45 11 MLS/HR Ondansetron HCl 4 mg Q4HP PRN IV 04/01/24 05:00 Acetaminophen 650 mg Q6HP PRN PO 04/01/24 05:00 04/15/24 17:07 650 MG Nitroglycerin 0.4 mg Q5MINP PRN SL 04/01/24 05:00 04/17/24 01:05 0.4 MG Albumin Human 100 ml @ 100 mls/hr KIRAN PRN IV 04/03/24 07:00 Norepinephrine Bitartrate 32 mg/ Sodium Chloride 250 ml @ 0.469 mls/ hr Q24H IV 04/04/24 06:30 04/19/24 13:26 5.625 MLS/HR Enteral Nutritional Formula 1,000 ml 20ML/HR GT 04/09/24 11:15 04/12/24 10:35 1,000 ML Sodium Chloride 10 ml QSHIFT@ IV 04/09/24 22:00 04/20/24 21:45 10 ML Iron Sucrose 110 ml @ 110 mls/hr DAILY@1200 IV 04/10/24 12:00 Hold 04/19/24 13:25 110 MLS/HR Amiodarone HCl 200 mg Q12HR PO 04/10/24 22:00 UNV Amiodarone HCl 200 mg Q12HR PO 04/10/24 22:00 04/20/24 21:45 200 MG Phenylephrine HCl 80 mg/Sodium Chloride 250 ml @ 7.5 mls/hr Q24H IV 04/10/24 19:30 04/15/24 10:40 1.875 MLS/HR Nystatin 1 applic BID TOP 04/12/24 22:00 04/20/24 21:45 1 APPLIC Levofloxacin 50 ml @ 50 mls/hr DAILY IV 04/13/24 10:00 04/20/24 10:06 50 MLS/HR Enoxaparin Sodium 40 mg DAILY SC 04/14/24 10:00 Hold 04/16/24 09:20 40 MG Bumetanide 1 mg DAILY IV 04/16/24 10:00 04/20/24 10:07 1 MG Morphine Sulfate 1 mg Q4HP PRN IV 04/16/24 15:30 Albuterol 2.5 mg Q4HR NEB 04/16/24 18:00 04/20/24 22:33 2.5 MG Ipratropium [place] 0.5 mg Q4HR NEB 04/16/24 18:00 04/20/24 22:33 0.5 MG Budesonide 0.5 mg BID NEB 04/16/24 22:00 04/20/24 22:33 0.5 MG Lorazepam 0.5 mg Q6HP PRN IV 04/16/24 21:45 Clopidogrel Bisulfate 75 mg DAILY PO 04/18/24 10:00 04/20/24 10:06 75 MG Purified Water 300 ml Q4HR GT 04/19/24 19:30 04/20/24 21:45 300 ML Heparin Sodium/ Dextrose 250 ml @ 18 mls/hr [id number] IV 04/20/24 22:00 Fentanyl Citrate 250 ml @ 2.5 mls/hr Q24H IV 04/20/24 22:30 objective Gen.: Patient lying in bed in medical ICU. Sedated, intubated on mechanical ventilator. Head: Normocephalic, atraumatic. Eyes: PERRLA. Ears: Normal external anatomy. Throat: Endotracheal tube and orogastric tube in place. Neck: Supple, trachea midline. Chest: Transmitted breath sounds bilaterally. Decreased air entry bilaterally. No wheezing. Bibasilar crackles. Cardio vascular: Positive S1, positive S2. Regular rate and rhythm. Abdomen: Positive bowel sounds in all 4 quadrants. Soft, nontender, nondistended. : Whipple in place. Normal external genitalia. Rectal: Deferred Skin: Warm, dry. Intact. Extremities: 2+ radial pulses bilaterally. No lower extremity edema. Neuro: Sedated. laboratory and microbiology Laboratory Tests 04/20/24 06:12 Test 04/20/24 06:12 Range/Units Serum Glucose 121 H 74-106 mg/dL Assessment/Plan Impression: Acute hypoxic respiratory failure On mechanical ventilator Right-sided pleural effusion Pneumonia of the right middle and lower lobes, likely Gram-negative Interstitial pulmonary edema Sepsis due to empyema Acute on chronic systolic/diastolic congestive heart failure Atrial fibrillation with RVR Bilateral hydronephrosis Acute kidney injury likely postobstructive nephropathy Events: Patient remains on mechanical ventilation. AC mode with RR 18, VT 500, PEEP of 5, FiO2 30% Remains on sedation with fentanyl and Versed. On pressors for hemodynamic support. On Levophed 13 mcg/min Titrate to keep MAP above 65 mmHg/SBP above 90 mmHg. Heparin drip ABG reviewed. Compensated. Monitor chest tube output. Hemoglobin stable at 8.4 grams/deciliter. Monitor Sodium, 148 Creatinine trending up. WBC trending up F/u Sputum and urine cultures. Continue antibiotics Nutritional support with tube feeds Rest of plan as noted below. Plan: s/p intubation on mechanical ventilator AC mode with RR 18, VT 500, PEEP of 5, FiO2 30% CXR image and report reviewed. ABG reviewed. On assist control Titrate FIO2 to keep O2 saturation above 92%. VAP bundle Daily ABG and CXR while intubated. Sedate for ventilatory synchrony Right chest tube in place. Monitor chest tube output On pressors for hemodynamic support. Titrate to keep MAP above 65 mmHg/SBP above 90 mmHg. Continue antibiotics. WBC count within normal limits. Represent new onset rash, IV steroids and IV Benadryl were initiated. Monitor renal function due to Acute kidney injury. Monitor electrolytes. Supplement as necessary. Nutritional support. Accucheks, ISS. GI/DVT prophylaxis. Condition: Critical Prognosis: Poor given multiple comorbidities. Rest of plan per hospitalist and other consultants. A total of 35 minutes of critical care time was spent reviewing the patient record, examining the patient, making a diagnostic and therapeutic plan, discussing this plan with the medical personnel, following up on diagnostic studies and following the patient for clinical stability excluding any and all procedures. At least 50% of this time was spent in direct, [id number] contact. Thank you Dr Mihir Hannon for allowing me to participate in this patient's care. Further recommendations will depend on patient's clinical course. Please do not hesitate to contact me if you have any questions or concerns. This medical document was created using an electronic medical record system with [employer] dictation system. Although this document has been carefully reviewed, there may still be some phonetic and typographical errors. These areas are purely typographical due to imperfections of the software programs, and do not reflect any compromise in the patient's medical care. Dietary Evaluation Review Comments: 1) If GI is accessible consider Nepro 1.8 @ 30 ml/hr goal rate as tolerated with current rate of propofol on board. 2) If pt remains NPO >7 days consider TPN to meet at least 75% of estimated needs 3) If pt continues to receive HD, advance pt diet when medically feasible to a Renal Standard diet modified per PATIENT ACCOUNT REPRESENTATIVE recommendations 4) If HD is discontinued and GFR is within normal range, advance pt diet to a Regular diet, modified per PATIENT ACCOUNT REPRESENTATIVE recommendations 5)If HD is discontinued and GFR lies within STG 1-4, advance pt diet to a Renal Specific K2,lowphos,HECTOR,2gmNa,80gPro diet 6) If HD is discontinued and if GFR returns to normal levels then ALEXANDRA 1 pkt BID with meals may be considered to aid with wound healing 7) Continue current plan of care Expected Outcomes/Goals: 1) Pt to receive nutrition support within 7 days of NPO status 2) Pt labs to improve 3) Pt diet to advance 4) F/U in 2-3 days Plan discussed with: Other (OLIVA Velasquez) Critical Care Time(min): 35 MELBA CRUZ MD Apr 20, 2024 23:08
[2024-04-21] VITALS (109 sets, daily range): BP systolic 95–118; BP diastolic 51–64; PULSE 78–105; RESP 13–26; TEMP 97.9–100.2; O2SAT 94–100
[2024-04-21] MEDS: fentaNYL Drip 2500mCg/250mlNS 250 ML IV SCH (01:01)
[2024-04-21 04:10] LABS: Chloride 115 mmol/L (98-107); Potassium 3.4 mmol/L (3.5-5.1); Sodium 147 mmol/L (136-145)
[2024-04-21 04:11] LABS: Anion Gap 11 (5-15); Basophils # (auto) 0.1 10 ^3/uL (0-0.2); Basophils % (auto) 0.7 % (0.0-2.0); Carbon Dioxide 21 mmol/L (20-31); Hematocrit 26.7 % (36.0-46.0); Hemoglobin 8.4 g/dL (12.2-16.2); Mean Corpuscular Hgb Conc. 31.5 g/dL (32.0-36.0)
[2024-04-21 04:12] LABS: Calcium 8.4 mg/dL (8.7-10.4)
[2024-04-21 04:13] LABS: Eosinophils # (auto) 0.5 10 ^3/uL (0-0.8); Eosinophils % (auto) 2.8 % (0.0-7.0); Lymphocytes # (auto) 1.8 10 ^3/uL (0.4-5.4); Lymphocytes % (auto) 10.1 % (10.0-50.0); Mean Corpuscular Hemoglobin 28.2 pg (28.0-32.0); Mean Corpuscular Volume 89.5 fL (80.0-100.0); Monocytes # (auto) 1.2 10 ^3/uL (0-1.3); Monocytes % (auto) 6.6 % (0.0-12.0); Neutrophils # (auto) 14.5 10 ^3/uL (1.6-8.6); Neutrophils % (auto) 79.8 % (37.0-80.0); Platelet Count (auto) 308 10^3/uL (140-450); Red Blood Cells 2.98 10^6/uL (4.0-5.20); White Blood Cell 18.2 10^3/uL (4.4-10.8)
[2024-04-21 04:17] LABS: BUN/Creatinine Ratio 20.2 (10.0-20.0); Glucose 127 mg/dL (74-106)
[2024-04-21 04:31] LABS: Red Cell Distribution Width 26.4 % (11.8-14.3)
[2024-04-21 04:33] LABS: INR 1.13 (0.9-1.15); Prothrombin Time 11.9 sec (9.3-11.8)
[2024-04-21 04:36] LABS: Blood Urea Nitrogen 39 mg/dL (9-23)
[2024-04-21 04:47] LABS: Partial Thromboplastin Time 74.3 SEC (24.5-34.5)
--- NOTE | 2024-04-21 05:46 | DVH ---
CHEST RADIOGRAPH Indication:RESPIRATORY FAILURE Technique: Single frontal view of the chest was obtained COMPARISON: XY CHEST XRAY 1 VIEW on DOS: 04/19/24, XY CHEST XRAY 1 VIEW on DOS: 04/18/24, XY CHEST PO RTABLE on DOS: 04/17/24 FINDINGS: Lines and Tubes: Endotracheal tube, enteric catheter and right PICC in satisfactory position. Right c hest tube in satisfactory position. Lungs: Multifocal airspace disease. Pleura: No effusion. No pneumothorax. Cardiomediastinal contours: Cardiomegaly Bones: Unremarkable IMPRESSION: Lines and tubes in satisfactory position. No significant interval change.
[2024-04-21] MEDS: POTASSIUM CHL 20MEQ/100ML 100 ML IV ONE ×2 (05:53→05:54)
[2024-04-21 06:44] LABS: Anisocytosis Moderate; Large Platelets FEW; Platelet Estimate Adequate; Stomatocytes Few
[2024-04-21 07:36] LABS: Base Excess -2.8 mmol/L (-2.0-3.0)
--- NOTE | 2024-04-21 08:21 | DVHPN2 ---
Progress Note - Dictate Date Seen: Apr 21, 2024 Has the PT tested + for MRSA If YES, has PT been informed?: No Medical Necessity Reason Pt with a Central, PICC or Fol: Yes The following are medically ne: Central Line, Whipple Catheter Reason for whipple catheter: Strict I&O vital signs Vital Sign Date Time Temp Pulse Resp B/P (MAP) Pulse Ox O2 Delivery O2 Flow Rate FiO2 04/21/24 06:45 98.4 82 21 100/55 (70) 97 209.1 04/21/24 06:00 Mechanical Ventilator+ 30 30 Total Intake and Output 04/20/24 04/20/24 04/21/24 14:59 22:59 06:59 Intake Total 412.752 ml 1254.846 ml 1210.752 ml Output Total 400 ml 350 ml Balance 412.752 ml 854.846 ml 860.752 ml medications Current Medications Medications Dose Ordered Sig/Destini Route Start Time Stop Time Status Last Admin Dose Admin Heparin Sodium/ Dextrose 250 ml @ 18 mls/hr [id number] IV 03/31/24 23:45 UNV Midazolam HCl 50 ml @ 1 mls/hr Q24H IV 04/01/24 01:30 04/21/24 05:27 11 MLS/HR Ondansetron HCl 4 mg Q4HP PRN IV 04/01/24 05:00 Acetaminophen 650 mg Q6HP PRN PO 04/01/24 05:00 04/15/24 17:07 650 MG Nitroglycerin 0.4 mg Q5MINP PRN SL 04/01/24 05:00 04/17/24 01:05 0.4 MG Albumin Human 100 ml @ 100 mls/hr KIRAN PRN IV 04/03/24 07:00 Norepinephrine Bitartrate 32 mg/ Sodium Chloride 250 ml @ 0.469 mls/ hr Q24H IV 04/04/24 06:30 04/21/24 05:54 6.094 MLS/HR Enteral Nutritional Formula 1,000 ml 20ML/HR GT 04/09/24 11:15 04/12/24 10:35 1,000 ML Sodium Chloride 10 ml QSHIFT@10,22 IV 04/09/24 22:00 04/20/24 21:45 10 ML Iron Sucrose 110 ml @ 110 mls/hr DAILY@1200 IV 04/10/24 12:00 Hold 04/19/24 13:25 110 MLS/HR Amiodarone HCl 200 mg Q12HR PO 04/10/24 22:00 UNV Amiodarone HCl 200 mg Q12HR PO 04/10/24 22:00 04/20/24 21:45 200 MG Phenylephrine HCl 80 mg/Sodium Chloride 250 ml @ 7.5 mls/hr Q24H IV 04/10/24 19:30 04/15/24 10:40 1.875 MLS/HR Nystatin 1 applic BID TOP 04/12/24 22:00 04/20/24 21:45 1 APPLIC Levofloxacin 50 ml @ 50 mls/hr DAILY IV 04/13/24 10:00 04/20/24 10:06 50 MLS/HR Enoxaparin Sodium 40 mg DAILY SC 04/14/24 10:00 Hold 04/16/24 09:20 40 MG Bumetanide 1 mg DAILY IV 04/16/24 10:00 04/20/24 10:07 1 MG Morphine Sulfate 1 mg Q4HP PRN IV 04/16/24 15:30 Albuterol 2.5 mg Q4HR NEB 04/16/24 18:00 04/21/24 05:56 2.5 MG Ipratropium [place] 0.5 mg Q4HR NEB 04/16/24 18:00 04/21/24 05:56 0.5 MG Budesonide 0.5 mg BID NEB 04/16/24 22:00 04/21/24 05:56 0.5 MG Lorazepam 0.5 mg Q6HP PRN IV 04/16/24 21:45 Clopidogrel Bisulfate 75 mg DAILY PO 04/18/24 10:00 04/20/24 10:06 75 MG Purified Water 300 ml Q4HR GT 04/19/24 19:30 04/21/24 05:28 300 ML Heparin Sodium/ Dextrose 250 ml @ 18 mls/hr [id number] IV 04/20/24 22:00 04/21/24 00:43 18 MLS/HR Fentanyl Citrate 250 ml @ 2.5 mls/hr Q24H IV 04/20/24 22:30 04/21/24 01:01 15 MLS/HR laboratory and microbiology Laboratory Tests 04/21/24 03:22 Test 04/21/24 03:22 Range/Units Serum Glucose 127 H 74-106 mg/dL Assessment/Plan There was question about EKG showing STEMI. Patient was intubated again by primary team and taken to [facility]. 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 s/p balloon angioplasty with minimal / partial result s/p thoracoscopy and chest tube placement Patient is a 68-year-old female who was transferred from [facility]. She originally presented to [facility] for shortness of breath ongoing for few days. She is intubated and is being managed in ICU. Information was obtained by reviewing the chart and communicating with staff. Reportedly, she presented with respiratory failure to [facility] (oxygen saturation was 88%) and over there was found to have white blood cell count of 26.6, hemoglobin of 11.1, creatinine of 5.6, potassium of 5.6 and troponin of 1.01. She was given 365 mg of aspirin in [facility]. She did have an episode of atrial fibrillation with RVR with questionable ST changes and was transferred to our facility for further care. She was also found to have right pleural effusion in [facility] and was diagnosed with non-STEMI. Intubated, on vent support. Obese. Mucosa is pale. Scattered rhonchi in the lungs is heard. Cardiac: Regular, no thrill/gallop. Abdomen is soft with increased bowel sounds. There is no gross mass. Extremities reveal 1+ edema bilaterally. Available past medical history includes obesity and questionable history of psoriasis. WBC: 25.3 - 23.7 - 20.2 - 20.5 - 17.6 - 18.4 - 19.2 - 19.4 - 22.2 - 16.4 - 16.1 - 19.5 - 14.7 - 12.3 - 9.8 - 10.0 - 8.3 - 9.2 - 10.2 - 11.4 - 10.3 - 12.0 - 13.8 - 16.3 - 18.0 - 18.2 Hemoglobin: 10.8 - 9.1 - 8.5 - 8.4 - 8.8 - 8.6 - 8.9 - 8.1 - 8.4 - 8.1 - 8.1 - 8.2 - 8.0 - 7.4 - 7.4 - 7.7 - 7.1 - 8.0 - 7.5 - 8.8 - 7.1 - 9.0 - 8.9 - 9.0 - 8.4 - 8.4 - 8.4 D-dimer: 3.62 Creatinine: 5.67 - 5.78 - 5.41 - 4.92 - 4.55 - 4.68 - 4.71 - 4.64 - 4.48 - 3.83 - 3.66 - 3.65 - 3.25 - 2.82 - 2.41 - 2.34 - 2.01 - 1.90 - 1.60 - 1.83 - 1.73 - 1.74 - 1.76 - 1.78 - 1.82 - 1.94 - 1.99 - 1.93 Potassium: 6.0 - 6.3 - 6.1 - 6.0 - 5.3 - 5.0 - 4.9 - 4.8 - 5.1 - 5.4 - 4.9 - 5.3 - 4.8 - 4.5 - 4.7 - 4.3 - 4.2 - 3.9 - 4.6 - 3.8 - 3.5 - 3.3 - 3.6 - 3.6 - 4.0 - 3.5 - 4.0 - 3.7 - 3.6 - 3.5 - 3.4 Lactic acid: 3.3 - 3.4 - 2.3 - 2.5 - 2.5 - 2.7 - 2.4 - 2.5 - 3.1 - 2.3 - 1.7 - 1.7 TSH: 1.71 BNP: 274.69 - 1944.81 - 373.79 Troponin (high sensitive): 1104 - 4078 - 0391 - 5131 - 080 - 0341 Blood culture: positive Pleural fluid culture: E-coli Digoxin level: 2.09 Stool OB: positive Chest x-ray revealed: IMPRESSION: 1. Moderate right pleural effusion. 2. Cardiomegaly with mild pulmonary vascular congestion bilaterally. Repeat chest x-ray revealed: IMPRESSION: 1. Endotracheal tube and gastric tubes in place as described. 2. Right IJ central venous catheter projects over the lower SVC. 3. Mild cardiomegaly and prominence of the pulmonary vasculature. 4. Moderate to large right pleural effusion. Repeat chest x-ray revealed: IMPRESSION: Similar lung aeration with large right pleural effusion. No pneumothorax seen. Stable lines and tubes. Repeat chest x-ray revealed: IMPRESSION: Similar lung aeration with large right pleural effusion. No pneumothorax seen. Stable lines and tubes. Repeat chest xry revealed: Lines and tubes: ET in the mid thoracic trachea. NG crosses midline. Right CVC is stable. Left HD catheter projects over the mediastinum. Cardiomediastinal silhouette: Enlarged Pulmonary vasculature: prominent Lung expansion: low Lung airspace: patchy bilateral airspace opacity. Lung interstitium: normal Pleura: Similar large right effusion. Pneumothorax: no Bones: Unremarkable Other: no IMPRESSION: Lines and tubes, as above. Similar lung aeration bilaterally with a right pleural effusion and patchy airspace opacities. Repeat chest xry revealed: IMPRESSION: 1. Stable position of the support lines and tubes. 2. Interstitial and alveolar opacities. Repeat chest xry revealed: IMPRESSION: Unchanged multifocal airspace disease. Small to moderate right pleural effusion ; possibly loculated. Repeat chest xry revealed: IMPRESSION: Lines and tubes in satisfactory position. No significant interval change. Repeat chest xry revealed: IMPRESSION: 1. Support lines and tubes in appropriate position. 2. Pulmonary vascular congestion. 3. Bilateral pleural effusions, right greater than left. Repeat chest xry revealed: IMPRESSION: 1. Support lines and tubes in appropriate position. 2. Pulmonary vascular congestion. 3. Bilateral pleural effusions, right greater than left. Repeat chest xry revealed: IMPRESSION: Interval placement of right chest tube which projects deep into the right hilar region. Repeat chest xry revealed: IMPRESSION: No interval change Repeat chest xry revealed: Findings/IMPRESSION: Right IJ CVC terminating in the SVC. Endotracheal tube projected 5 cm superior to the mili. Enteric tube projected below the GE junction. Right-sided PICC projects terminating near the cavoatrial junction. Small bilateral pleural effusions and/or atelectasis with superimposed infection not excluded. Repeat chest xry revealed: MPRESSION: 1. Bilateral pleural effusions and airspace disease right greater than left. Repeat chest xry revealed: IMPRESSION: 1. Endotracheal tube terminates 6.0 cm above the mili, previously 3.1 cm above the mili. Otherwise, No significant interval change. Repeat chest xry revealed: IMPRESSION: 1. Endotracheal tube terminates 6.0 cm above the mili, previously 3.1 cm above the mili. Otherwise, No significant interval change. Repeat chest xry revealed: IMPRESSION: Lines and tubes in satisfactory position. No significant interval change. Repeat chest xry revealed: IMPRESSION: Lines and tubes in satisfactory position. No significant interval change. Repeat chest xry revealed: IMPRESSION: Lines and tubes in satisfactory position. No significant interval change. Repeat chest xry revealed: IMPRESSION: Lines and tubes in satisfactory position. No significant interval change. Repeat chest xry revealed: IMPRESSION: Endotracheal tube projects in appropriate position. Otherwise no significant change Repeat chest xry revealed: FINDINGS: Lines and Tubes: Right PICC and enteric catheter and right chest tube in satisfactory position. Endotracheal tube projects 3.8 cm above the level of the mili. Lungs: Bibasilar opacities. Pleura: Possible small right pleural effusion. No pneumothorax. Cardiomediastinal contours: Unremarkable Bones: Unremarkable IMPRESSION: No significant change compared to prior exam. Repeat chest xry revealed: IMPRESSION: Lines and tubes in satisfactory position. No significant interval change. Renal ultrasound revealed: IMPRESSION: 1. Right kidney measures 13.4 cm. Decreased cortical thickness on the right. 2. Left kidney measures 10.2 cm. 3. No hydronephrosis on the right grade 1 hydronephrosis on the left. 4. Bilateral renal calculi. CT scan of the chest/abdomen and pelvis revealed: IMPRESSION: 1. Moderate partially loculated right pleural effusion and consolidations in the right middle and lower lobes which could be pneumonia and/or atelectasis. 2. Mild cardiomegaly, mild interstitial pulmonary edema, and body wall edema. 3. There is a 1.9 cm calculus in the right UPJ with mild right hydronephrosis 4. There is a 2.6 cm somewhat staghorn appearing calculus in the left renal pelvis and UPJ causing mild predominantly mid to lower pole left hydronephrosis. Mild soft tissue stranding about the left renal pelvis which could be due to obstruction or superimposed infection. Correlate with urinalysis. 5. Partial duplication of the left renal collecting system without hydronephrosis in the upper pole. 6. Moderate right perinephric, right retroperitoneal, and bilateral extraperitoneal pelvis low-density fluid and very mild left retroperitoneal low-density fluid. This could be fluid related to bilateral renal obstructions and forniceal ruptures versus evolved retroperitoneal hematoma. This is suboptimally evaluated without intravenous contrast. 7. Fluid-filled small and large bowel loops which may be physiologic or related to enterocolitis and could be manifesting as loose stools and/or diarrhea. 8. Prominent endometrium measuring at least 2.8 cm, suboptimally evaluated by CT. Recommend characterization with nonemergent pelvic ultrasound if clinically indicated. 9. Mild hepatosplenomegaly. 10. Moderate three-vessel calcified coronary artery disease and mild aortic valve calcification. 11. Right IJ central venous catheter in place terminating in the low SVC. 12. Small soft tissue stranding in the right supraclavicular neck which could be blood products. 13. Endotracheal tube terminates above the mili. CT of the head revealed: IMPRESSION: 1. No acute intracranial abnormality. 2. Generalized cerebral volume loss and mild chronic microvascular ischemic change. 3. Partially imaged endotracheal tube. Chest ultrasound revealed: Findings/Impression: There is a trace bilateral pleural effusion. Thoracentesis: FINDINGS: Moderate size, complex and septated right pleural effusion. Aspirated fluid is thick and green in consistency. IMPRESSION: Right thoracentesis with 250 mL removed for laboratory analysis. EKG in [facility] revealed sinus tachycardia, poor R-wave progression old inferior wall TX. later EKG revealed atrial fibrillation with RVR. Repeat EKGs questioned STEMI. but resolved later. Telemetry reveals sinus rhythm, occasions of A-fib with RVR, SVT Echocardiogram revealed: Technically limited study secondary to poor acoustic windows. Left ventricle: Left ventricle was normal-sized. Mild concentric left ventricular hypertrophy was seen. LVEF was 55-60%. No gross wall motion abnormality was observed, but its presence can not be ruled out on the basis of this study. Right ventricle is mildly dilated with normal systolic function. Left atrium was mildly dilated. Right atrium was normal-sized. Aortic valve was trileaflet. There was no aortic insufficiency. There was aortic sclerosis with no stenosis. There was trivial mitral/tricuspid regurgitation. Pulmonary valve was not well visualized. Right ventricular systolic pressure was assessed around 48 mm Hg. There was no pericardial effusion. 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 LVEF of 25% (dilated LV). Cardiac suggestion for management: Dual antiplatelet therapy (loaded with aspirin and Plavix). Guideline directed medical therapy for systolic heart failure Patient is a 68-year-old morbidly obese patient who presented with respiratory failure to the hospital. Presentation is in favor of sepsis/septic shock. Multiorgan failure is observed. She is intubated and on vent support. She is on multiple pressor support. Life findings are in favor of acute renal failure. She also is known to have nephrolithiasis with history of staghorn calculi. Cardiac-ceballos, the patient did have episode of atrial fibrillation with RVR. She is found to have increased troponin. Presentation questions non-STEMI and possibly type 2 ischemia. Recognizing the presentation, ischemic workup should be postponed after clinical stability (only if patient recovers higher brain function). Is being followed by Nephrology. Had episodes of tachyarrhythmia. Loaded with Digoxin. Positive cultures. Repeated a-fib with RVR. Was evaluated by Interventional Cardiology tanning salon attendant for STEMI (not considered STEMI). 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 s/p balloon angioplasty with minimal / partial result Septic shock Multiorgan failure Acute respiratory failure on vent support Acute renal failure Nephrolithiasis Staghorn calculi Hydronephrosis Abnormal troponin, non-STEMI Atrial fibrillation with RVR Paroxysmal AFib Acute heart failure, diastolic Hepatosplenomegaly Pleural effusion Status post thoracentesis Morbid obesity s/p Cardioversion for A-fib with RVR s/p thoracoscopy and chest tube placement CAD: GRASSRO[employer] ORGANIZER of mid LAD (considered old) with full of thrombus. s/p balloon angioplasty with minimal / partial result Cardiac suggestion for management: Manage in ICU Follow-up electrolytes and kidney function tests and correct abnormalities Pressure support to keep mean arterial pressure above 65 Amiodarone oral/O mg BID Daily aspirin (81 mg daily) Plavix: 75 mg daily Heparin drip for now If regains higher brain function: Life Vest Repeat Echocardiogram s/p thoracoscopy and chest tube placement IV metoprolol PRN for a-fib with RVR episodes. Sepsis workup and management as per primary team Evaluation and management of respiratory failure as per primary team/Pulmonary Evaluation and management of nephrolithiasis/hydronephrosis as per primary/Urology Evaluation and management of acute renal failure as per Nephrology Further evaluation and management as per above and clinical course. A total of 75 minutes was spent reviewing the patient record, examining the patient, making a diagnostic and therapeutic plan, discussing this plan with medical personnel, following up on diagnostic studies and following the patient for clinical stability excluding any and all procedures. At least 50% of this time was spent in direct, [id number] contact. Thank you for allowing me to participate in this patient's care. Further recommendations will depend on patient's clinical course. Please do not hesitate to contact me if you have any questions or concerns. This medical document was created using electronic medical record system with [employer] dictation system. Although this document has been carefully reviewed, there may still be some phonetic and typographical errors. These areas are purely typographical due to the imperfection of the software programs, and do not reflect any compromise in the patient's medical care. Dietary Evaluation Review Comments: 1) If GI is accessible consider Nepro 1.8 @ 30 ml/hr goal rate as tolerated with current rate of propofol on board. 2) If pt remains NPO >7 days consider TPN to meet at least 75% of estimated needs 3) If pt continues to receive HD, advance pt diet when medically feasible to a Renal Standard diet modified per DUB ROOM ENGINEER recommendations 4) If HD is discontinued and GFR is within normal range, advance pt diet to a Regular diet, modified per DUB ROOM ENGINEER recommendations 5)If HD is discontinued and GFR lies within STG 1-4, advance pt diet to a Renal Specific K2,lowphos,HECTOR,2gmNa,80gPro diet 6) If HD is discontinued and if GFR returns to normal levels then ALEXANDRA 1 pkt BID with meals may be considered to aid with wound healing 7) Continue current plan of care Expected Outcomes/Goals: 1) Pt to receive nutrition support within 7 days of NPO status 2) Pt labs to improve 3) Pt diet to advance 4) F/U in 2-3 days Plan discussed with: Other (nurse) HERMINIO JOHNSON MD Apr 21, 2024 08:21
[2024-04-21] MEDS: ASPirin 325 MG TAB PO ONE (09:30)
[2024-04-21] MEDS: POTASSIUM CHL 20MEQ/100ML 100 ML IV SCH (10:00)
[2024-04-21 10:40] LABS: INR 1.11 (0.9-1.15); Partial Thromboplastin Time 65.5 SEC (24.5-34.5); Prothrombin Time 11.7 sec (9.3-11.8)
--- NOTE | 2024-04-21 11:32 | ECG ---
[facility] Test Date: 2024-04-17 Test Time: 00:26:03 Pat Name: BROOKLYN WEBSTER Department: Room: [address] [place] [address] A Gender: F [employer] Chief [employer]: : 1955 Requested By: FAVIAN SKINNER Order Number: [id number] Reading MD: Baldomero Munguia Measurements Intervals [place] Rate: 104 P: 52 [place]: 132 QRS: -26 QRSD: 162 T: 7 QT: 406 QTc: 533 Interpretive Statements Sinus tachycardia Right bundle branch block Inferior infarct , age undetermined Anterior infarct , age undetermined Lateral injury pattern ACUTE AL Electronically Signed On 04-21-2024 16:39:08 PDT by Baldomero Munguia Please click the below link to view image of tracing.
--- NOTE | 2024-04-21 11:57 | DVHPN2 ---
Progress Note Date Seen: Apr 21, 2024 Has the PT tested + for MRSA If YES, has PT been informed?: No Medical Necessity Reason Pt with a Central, PICC or Fol: Yes The following are medically ne: Central Line, Whipple Catheter Reason for whipple catheter: Strict I&O Subjective Review of Systems: RESPIRATORY:Abnormal Other Systems: Patient seen and examined by myself today in follow-up Patient remained intubated on ventilator Objective vital signs Vital Sign Date Time Temp Pulse Resp B/P (MAP) Pulse Ox O2 Delivery O2 Flow Rate FiO2 04/21/24 11:31 20 97 Mechanical Ventilator+ 30 30 04/21/24 11:22 83 106/61 (76) 04/21/24 10:45 98.8 209.8 Total Intake and Output 04/20/24 04/20/24 04/21/24 15:00 23:00 07:00 Intake Total 414.752 ml 1257.846 ml 1210.752 ml Output Total 400 ml 350 ml Balance 414.752 ml 857.846 ml 860.752 ml medications Current Medications Medications Dose Ordered Sig/Destini Route Start Time Stop Time Status Last Admin Dose Admin Heparin Sodium/ Dextrose 250 ml @ 18 mls/hr [id number] IV 03/31/24 23:45 UNV Midazolam HCl 50 ml @ 1 mls/hr Q24H IV 04/01/24 01:30 04/21/24 09:43 11 MLS/HR Ondansetron HCl 4 mg Q4HP PRN IV 04/01/24 05:00 Albumin Human 100 ml @ 100 mls/hr KIRAN PRN IV 04/03/24 07:00 Norepinephrine Bitartrate 32 mg/ Sodium Chloride 250 ml @ 0.469 mls/ hr Q24H IV 04/04/24 06:30 04/21/24 05:54 6.094 MLS/HR Enteral Nutritional Formula 1,000 ml 20ML/HR GT 04/09/24 11:15 04/12/24 10:35 1,000 ML Sodium Chloride 10 ml QSHIFT@,22 IV 04/09/24 22:00 04/21/24 09:27 10 ML Iron Sucrose 110 ml @ 110 mls/hr DAILY@1200 IV 04/10/24 12:00 Hold 04/19/24 13:25 110 MLS/HR Amiodarone HCl 200 mg Q12HR PO 04/10/24 22:00 UNV Amiodarone HCl 200 mg Q12HR PO 04/10/24 22:00 04/21/24 09:26 200 MG Phenylephrine HCl 80 mg/Sodium Chloride 250 ml @ 7.5 mls/hr Q24H IV 04/10/24 19:30 04/15/24 10:40 1.875 MLS/HR Nystatin 1 applic BID TOP 04/12/24 22:00 04/21/24 09:27 1 APPLIC Levofloxacin 50 ml @ 50 mls/hr DAILY IV 04/13/24 10:00 04/21/24 09:26 50 MLS/HR Enoxaparin Sodium 40 mg DAILY SC 04/14/24 10:00 Hold 04/16/24 09:20 40 MG Bumetanide 1 mg DAILY IV 04/16/24 10:00 04/21/24 09:26 1 MG Albuterol 2.5 mg Q4HR NEB 04/16/24 18:00 04/21/24 09:49 2.5 MG Ipratropium [place] 0.5 mg Q4HR NEB 04/16/24 18:00 04/21/24 09:49 0.5 MG Budesonide 0.5 mg BID NEB 04/16/24 22:00 04/21/24 05:56 0.5 MG Clopidogrel Bisulfate 75 mg DAILY PO 04/18/24 10:00 04/21/24 09:25 75 MG Purified Water 300 ml Q4HR GT 04/19/24 19:30 04/21/24 09:26 300 ML Heparin Sodium/ Dextrose 250 ml @ 18 mls/hr [id number] IV 04/20/24 22:00 04/21/24 00:43 18 MLS/HR Fentanyl Citrate 250 ml @ 2.5 mls/hr Q24H IV 04/20/24 22:30 04/21/24 01:01 15 MLS/HR Aspirin 81 mg DAILY PO 04/22/24 10:00 Potassium Chloride 100 ml @ 50 mls/hr Q2H IV 04/21/24 10:00 04/21/24 13:59 04/21/24 10:00 50 MLS/HR Examination: LUNGS:Normal, CVS:Normal, MSK:Normal laboratory and microbiology Laboratory Tests 04/21/24 03:22 Test 04/21/24 03:22 Range/Units Serum Glucose 127 H 74-106 mg/dL Microbiology Date/Time Source Procedure Growth Status 04/18/24 15:02 Sputum Gram Stain - Final Resulted 04/18/24 15:02 Sputum Respiratory Culture - Preliminary Resulted 04/18/24 10:50 Voided Urine Urine Culture - Preliminary Resulted 04/18/24 09:20 Blood Blood Culture - Preliminary NO GROWTH AFTER 72 HOURS OF INCUBATION. Resulted 04/08/24 08:02 Thoracic Fluid Gram Stain - Final Complete 04/08/24 08:02 Thoracic Fluid Anaerobic Culture - Final Complete 04/08/24 08:02 Thoracic Fluid Aerobic Culture - Final Complete 04/01/24 11:19 Nose MRSA Screen - Final Complete Problem List/Assessment/Plan Problem List/Assessment/Plan Acute kidney injury due to ATN/hemodynamic from shock, status post intermittent hemodialysis Acute respiratory failure, intubated on ventilator NSTEMI septic shock empyema metabolic acidosis resolved b/l renal stones w/ hydronephrosis morbid obesity hyperkalemia, resolved Hypernatremia due to insensible water loss afib RVR Hypokalemia Recommendations Kidney function is slightly improving today Increased urine output Hold diuresis IV pressors for blood pressure support Strict I&Os IV antibiotics IVF D5W at 100 cc/hour KCL replacement free water down NG tube Urology consult We will continue to follow Plan discussed with: Patient My Orders My Orders Orders - SWETA CHAND MD Procedure Category Date Status Time 07/03 Ns PHA 04/21/24 Transmitted 12:00 Dietary Evaluation Review Comments: 1) If GI is accessible consider Nepro 1.8 @ 30 ml/hr goal rate as tolerated with current rate of propofol on board. 2) If pt remains NPO >7 days consider TPN to meet at least 75% of estimated needs 3) If pt continues to receive HD, advance pt diet when medically feasible to a Renal Standard diet modified per TECHNOLOGY ENGINEER recommendations 4) If HD is discontinued and GFR is within normal range, advance pt diet to a Regular diet, modified per TECHNOLOGY ENGINEER recommendations 5)If HD is discontinued and GFR lies within STG 1-4, advance pt diet to a Renal Specific K2,lowphos,HECTOR,2gmNa,80gPro diet 6) If HD is discontinued and if GFR returns to normal levels then ALEXANDRA 1 pkt BID with meals may be considered to aid with wound healing 7) Continue current plan of care Expected Outcomes/Goals: 1) Pt to receive nutrition support within 7 days of NPO status 2) Pt labs to improve 3) Pt diet to advance 4) F/U in 2-3 days SWETA CHAND MD Apr 21, 2024 11:57
[2024-04-21] MEDS: SOD CHL 0.45% 1,000 ML IV SCH (12:13)
--- NOTE | 2024-04-21 13:02 | ECG ---
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
--- NOTE | 2024-04-21 13:03 | ECG ---
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
--- NOTE | 2024-04-21 13:04 | ECG ---
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
[2024-04-21] MEDS: PIPERACILLIN-TAZOB 3.375GM 100 ML IV ONE (14:45)
[2024-04-21 16:02] LABS: INR 1.13 (0.9-1.15); Prothrombin Time 11.9 sec (9.3-11.8)
[2024-04-21 16:08] LABS: Partial Thromboplastin Time > 139.0 SEC (24.5-34.5)
[2024-04-21] MEDS: MICAFUNGIN SODIUM 100 MG in SODIUM CHL 0.9% 100 ML IV ONE (17:00)
[2024-04-21] MEDS: HEPARIN DRIP/D5W 100UNITS/ML 250 ML IV SCH (17:30)
[2024-04-21] MEDS: FREE WATER GT SCH (18:00)
--- NOTE | 2024-04-21 19:34 | DVHPNRES ---
Progress Note Date Seen: Apr 21, 2024 Resident Creating Document: JUAN VAZQUEZ RESIDENT Has the PT tested + for MRSA If YES, has PT been informed?: No Medical Necessity Reason Pt with a Central, PICC or Fol: Yes The following are medically ne: Central Line, Whipple Catheter Reason for whipple catheter: Strict I&O Subjective Review of Systems HPI: 68/female, past medical history: Unknown Patient is 68-year-old female who was brought to the hospital from [facility] for higher level of care. Patient was initially treated facility for shortness of breath and was transferred to our hospital. During initial ED evaluation patient found to be tachypneic with severe respiratory failure, atrial fibrillation. Initially patient required oxygenation via non- rebreather mask however patient intubated to protect airway. Patient started on IV antibiotic, requiring vasopressor and amiodarone drip initially. With further evaluation chest ultrasound showed bilateral pleural effusion, CT scan of chest and abdomen was performed which showed partially loculated right pleural effusion and consolidation in right middle and lower lobe. Patient also found to have right hydronephrosis with 1.9 cm calculus into right UPJ. Radiologist performed right-sided thoracentesis which removed 250 mL of fluid. L patient was placed with right-sided chest tube for loculated empyema. Patient underwent right thoracoscopy with evacuation empyema with insertion of chest tube. Patient was extubated on April 16/2024. Patient was reintubated back given possible STEMI and transferred to left heart catheterization. Engraver Steel Plate did angioplasty for complete total occlusion of mid LAD. Started on heparin drip, aspirin and Plavix. Patient continued to have x-ray findings with right lower lobe opacity. Continued on antibiotic. Continued require vasopressors, chest type continued to drain. No air leak. ROS: Not obtained as patient is intubated Vitals: Respiratory rate 18, pulse 79, SpO2 97, blood pressure 105/60 Ventilatory settings: Respiratory rate 18, tidal volume 500, FiO2 30%, peep 5 cm H2O Urine Input/output: Positive balance 1175 mL Bowel movement: ABG: On 04/21/2024: PH 7.3.9, pCO2 40.7, PO2 of 78.5, HC03 22.4, normal PTH. Chest x-ray: On 04/21/2024, Lines and tubes in satisfactory position. No significant interval change, right pleural effusion, right lower lobe patchy infiltrate Overnight event: None Labs, micro, imaging/study Abnormal labs: Trending WBC count high . 12> 13.8> 16.3>18>18.2 Micro: Urine culture growing yeast, respiratory culture growing yeast Today patient was seen and examined at bedside. Patient continued to be on ventilator , no drainage over the night over chest tube, no night event notified from overnight stocker, continued to be on vasopressor norepinephrine, heparin drip. telecommunications officer urine output was 400-500 in last 12 hours. Ross acute minus three. Plan to do CT abdomen pelvis, chest for empyema/lobulation pleural effusion. No other complaints. Objective vital signs Vital Sign Date Time Temp Pulse Resp B/P (MAP) Pulse Ox O2 Delivery O2 Flow Rate FiO2 04/21/24 18:15 99.9 88 22 114/63 (80) 97 211.8 04/21/24 18:11 Mechanical Ventilator+ 30 30 Total Intake and Output 04/20/24 04/20/24 04/21/24 15:00 23:00 07:00 Intake Total 414.752 ml 1257.846 ml 1210.752 ml Output Total 400 ml 350 ml Balance 414.752 ml 857.846 ml 860.752 ml medications Current Medications Medications Dose Ordered Sig/Destini Route Start Time Stop Time Status Last Admin Dose Admin Heparin Sodium/ Dextrose 250 ml @ 18 mls/hr [id number] IV 03/31/24 23:45 UNV Midazolam HCl 50 ml @ 1 mls/hr Q24H IV 04/01/24 01:30 04/21/24 17:47 11 MLS/HR Ondansetron HCl 4 mg Q4HP PRN IV 04/01/24 05:00 Albumin Human 100 ml @ 100 mls/hr KIRAN PRN IV 04/03/24 07:00 Norepinephrine Bitartrate 32 mg/ Sodium Chloride 250 ml @ 0.469 mls/ hr Q24H IV 04/04/24 06:30 04/21/24 05:54 6.094 MLS/HR Sodium Chloride 10 ml QSHIFT@10,22 IV 04/09/24 22:00 04/21/24 09:27 10 ML Iron Sucrose 110 ml @ 110 mls/hr DAILY@1200 IV 04/10/24 12:00 Hold 04/19/24 13:25 110 MLS/HR Amiodarone HCl 200 mg Q12HR PO 04/10/24 22:00 UNV Amiodarone HCl 200 mg Q12HR PO 04/10/24 22:00 04/21/24 09:26 200 MG Phenylephrine HCl 80 mg/Sodium Chloride 250 ml @ 7.5 mls/hr Q24H IV 04/10/24 19:30 04/15/24 10:40 1.875 MLS/HR Nystatin 1 applic BID TOP 04/12/24 22:00 04/21/24 09:27 1 APPLIC Enoxaparin Sodium 40 mg DAILY SC 04/14/24 10:00 Hold 04/16/24 09:20 40 MG Albuterol 2.5 mg Q4HR NEB 04/16/24 18:00 04/21/24 13:21 2.5 MG Ipratropium [place] 0.5 mg Q4HR NEB 04/16/24 18:00 04/21/24 13:21 0.5 MG Budesonide 0.5 mg BID NEB 04/16/24 22:00 04/21/24 05:56 0.5 MG Clopidogrel Bisulfate 75 mg DAILY PO 04/18/24 10:00 04/21/24 09:25 75 MG Fentanyl Citrate 250 ml @ 2.5 mls/hr Q24H IV 04/20/24 22:30 04/21/24 13:57 15 MLS/HR Aspirin 81 mg DAILY PO 04/22/24 10:00 Purified Water 200 ml Q6HR GT 04/21/24 18:00 Enteral Nutritional Formula 1,000 ml 30ML/HR GT 04/21/24 14:45 Piperacillin Sod/ Tazobactam Sod 100 ml @ 25 mls/hr Q8H IV 04/22/24 00:00 Heparin Sodium/ Dextrose 250 ml @ 15 mls/hr [id number] IV 04/21/24 17:30 Micafungin Sodium 100 mg/Sodium Chloride 100 ml @ 100 mls/hr DAILY IV 04/22/24 10:00 Examination General: Patient is intubated and sedated. HEENT: Normocephalic, atraumatic, moist mucous membranes Respiratory/pulmonary: There are no breath sounds audible in the right lung base and diminished breath sounds on the left lung as well. Cardiovascular: Heart rate and rhythm is oscillating significantly from sinus rhythm to AFib rate controlled to AFib with RVR. No murmurs at this time. Abdomen: Abdomen slightly distended, there is no pain to palpation in any of the abdominal quadrants, no palpable masses. Extremities: There is minimal swelling in the lower extremities bilaterally. Peripheral Pulses: 3+ Radial (R). 3+ Radial (L). 3+ Dorsalis pedis (R). 3+ Dorsalis pedis(L) Skin: There is dry skin in bilateral lower extremities with scales and excoriations. Neurological: Sedated, RASS -3 laboratory and microbiology Laboratory Tests 04/21/24 03:22 Test 04/21/24 03:22 Range/Units Serum Glucose 127 H 74-106 mg/dL Microbiology Date/Time Source Procedure Growth Status 04/18/24 15:02 Sputum Gram Stain - Final Resulted 04/18/24 15:02 Sputum Respiratory Culture - Preliminary Resulted 04/18/24 10:50 Voided Urine Urine Culture - Final Yeast, not Arlet albicans Complete 04/18/24 09:20 Blood Blood Culture - Preliminary NO GROWTH AFTER 72 HOURS OF INCUBATION. Resulted 04/08/24 08:02 Thoracic Fluid Gram Stain - Final Complete 04/08/24 08:02 Thoracic Fluid Anaerobic Culture - Final Complete 04/08/24 08:02 Thoracic Fluid Aerobic Culture - Final Complete 04/01/24 11:19 Nose MRSA Screen - Final Complete Problem List/Assessment/Plan Problem List/Assessment/Plan Neurology Sedation -currently on midazolam and fentanyl Respiratory Acute hypoxic respirtory failure likel due to right-sided pleural effusion/empyema and consolidation on right middle and lower lobes -Order CT chest without contrast, CT abdominal pelvis without contrast -on mechanical ventilation: Respiratory rate 16, tidal volume 500, FiO2 30%, peep 5 cm H2O -presence of chest tube: Minimal drainage, no air leak. -chest x-ray on 04/21/2022: Right-sided pleural effusion, right lower lobe opacification. -IV antibiotic with Zosyn plus micafungin -CT of the chest and abdomen showed moderate partial loculated right pleural effusion and consolidation on right middle/lower lobes. Mild cardiomegaly and interstitial pulmonary edema. It also showed right hydronephrosis with 1.9 cm calculus into the right UPJ. There is also a 2.6 cm staghorn appearing calculus causing mid to lower pole left hydronephrosis. -Respiratory culture: Yeast, not Arlet on 04/17/2024. Repeat culture pending. Septic shock in the setting of loculated right-sided pleural effusion and pneumonia -continue management of acute respiratory failure likely due to empyema. -vasopressor with norepinephrine 30 microgram/minute. -add micafungin -stopped Bumex 1 mg IV -respiratory culture positive for yeast on 04/17/2024. Cardiology Acute on chronic systolic/diastolic heart failure -stopped Bumex IV in setting of septic shock, we will re-evaluate tomorrow a.m.. -echocardiogram is showing an LVEF of 55-60% with increased RVSP at 48 mmHg and no pericardial effusion STEMI -continue current management. -angiogram(04/17/24): One-vessel coronary artery disease GUIDEMAN of mid LAD -continue heparin drip, with dual antiplatet: aspirin and plavix -Dr wahl following Atrial fibrilation with RVR: Rate controlled -continue amiodarone 200 mg p.o. b.i.d. -Continue heparin Nephrology Hypernatremia -free water 200 mL q.6 via G-tube -repeat sodium level in a.m. Bilateral hydronephrosis -CT scan of the chest and abdomen showed right hydronephrosis with 1.9 cm calculus into the right UPJ, there was also a 2.6 cm staghorn appearing calculus causing mid to lower pole left hydronephrosis. -nephrology on board -drainage with Whipple catheter. -continue INR monitoring CHRISTOPH likely postobstructive nephropathy: Resolved -most likely secondary to bilateral renal calculi -nephrology and urology on board -monitor kidney function Hypokalemia -replenish Lines: Right upper arm PICC line: Placed on 04/09/2024 PUD prophylaxis: Protonix DVT prophylaxis: Heparin drip Goals of care discussed with the daughter and brother at bedside for >31min by Dr. Jones previously Critical time spent > 66 min Plan discussed with Dr. Jones Plan discussed with: Other (RN) My Orders My Orders Orders - JUAN VAZQUEZ Procedure Category Date Status Time Micafungin Sodium PHA 04/22/24 In Process (Mycamine) 10:00 Ct Ab Pel Wo Con-No CT 04/21/24 Logged Oral Or Iv 16:[address] 04/21/24 Logged 17:22 Dietary Evaluation Review Comments: 1) If GI is accessible consider Nepro 1.8 @ 30 ml/hr goal rate as tolerated with current rate of propofol on board. 2) If pt remains NPO >7 days consider TPN to meet at least 75% of estimated needs 3) If pt continues to receive HD, advance pt diet when medically feasible to a Renal Standard diet modified per AN/SYQ 13 NAV/C2 OPERATOR recommendations 4) If HD is discontinued and GFR is within normal range, advance pt diet to a Regular diet, modified per AN/SYQ 13 NAV/C2 OPERATOR recommendations 5)If HD is discontinued and GFR lies within STG 1-4, advance pt diet to a Renal Specific K2,lowphos,HECTOR,2gmNa,80gPro diet 6) If HD is discontinued and if GFR returns to normal levels then ALEXANDRA 1 pkt BID with meals may be considered to aid with wound healing 7) Continue current plan of care Expected Outcomes/Goals: 1) Pt to receive nutrition support within 7 days of NPO status 2) Pt labs to improve 3) Pt diet to advance 4) F/U in 2-3 days Date of Service: Apr 21, 2024 Billing Provider: LAURIE JONES MD Common Visit Codes: [id number] CARE 30-74 MIN JUAN VAZQUEZ RESIDENT Apr 21, 2024 19:34 LAURIE JONES MD Apr 22, 2024 11:44
[2024-04-21] MEDS: PANTOPRAZOLE 40 MG/10 ML VIAL INJ IV ONE (22:02)
[2024-04-21 23:18] LABS: INR 1.08 (0.9-1.15); Partial Thromboplastin Time 40.6 SEC (24.5-34.5); Prothrombin Time 11.4 sec (9.3-11.8)
[2024-04-22] VITALS (101 sets, daily range): BP systolic 90–182; BP diastolic 48–159; PULSE 74–117; RESP 16–25; TEMP 97.3–99.7; O2SAT 90–100
[2024-04-22] MEDS: PIPERACILLIN-TAZOB 3.375GM 100 ML IV SCH (00:08)
[2024-04-22] MEDS: HEPARIN DRIP/D5W 100UNITS/ML 250 ML IV SCH (00:15)
--- NOTE | 2024-04-22 03:08 | DVH ---
CLINICAL HISTORY: empyema, abdominal abscess TECHNIQUE: CT of the chest, abdomen and pelvis was performed without IV contrast. This exam was per formed according to our departmental dose optimization program. Up-to-date CT equipment and radiation dose reduction techniques are utilized as appropriate. CTDI: [CTDIvol] DLP: 1730.04 COMPARISON: CT CHST AB PEL WO CON-NO IV/ORAL on DOS: 03/31/24 FINDINGS: CHEST FINDINGS: Lower Neck: There is soft tissue stranding in the right supraclavicular neck significantly improved, with removal of the right IJ approach central venous catheter. Axilla, Mediastinum and Sabine: There is no axillary or mediastinal lymphadenopathy. Limited evaluation of the sabine in the absence of intravenous contrast. Heart and Great Vessels: Mild cardiomegaly with trace pericardial fluid. There is moderate three-vess el calcified coronary artery disease. Mild aortic valve calcification. The thoracic aorta is normal i n caliber containing mild calcified atherosclerotic plaque. There is a right picc in place terminatin g in the low IVC. Airway, Lungs and Pleura: Endotracheal tube terminates above the mili. There is linear perihilar a nd bibasilar opacities likely atelectasis. There is a moderate partially loculated right pleural effu jonathan, slightly improved since prior, now containing a right posterolateral approach thoracostomy tube terminating in the anterior medial right lobe. Development of small amount of gas in the right pleur al space at the level of the right middle lobe on series 3, image 36. Mild to Moderate dependent cons olidations in the right lower and middle lobes. Mild interlobular septal thickening in the lungs. Mod erate dependent consolidation in the left lower lobe. Chest Wall and Osseous Structures: There is a sebaceous cyst in the posterior chest wall just to the right of midline Multilevel thoracic spondylosis. No destructive osseous lesion. Abdomen and Pelvis Findings: Liver and Biliary system: Hepatomegaly measuring 21 cm craniocaudal. No definite hepatic lesion. Prio r cholecystectomy. No biliary ductal dilatation. Spleen: Mild splenomegaly. Adrenal Glands and Kidneys: There is nodular thickening of the bilateral adrenal glands. There is a c alculus in the the right kidney upper pole measuring 1.5 cm on series 2, image 128. Mild right hydro nephrosis. There is a 2.6 cm somewhat staghorn appearing calculus in the left renal pelvis and UPJ ca using minor left hydronephrosis predominantly in the mid to lower pole improved since prior. nonobst ructing left renal calculi. There is partial duplication of the left renal collecting system. There i s moderate density moderate right perinephric fluid/ blood products. There is also moderate right per inephric low and intermediate density fluid as well as moderate intermediate density fluid in the chapis ateral extraperitoneal pelvis. Pancreas and Retroperitoneum: Grossly normal pancreas. Additional moderate intermediate density flu id in the right retroperitoneum extending in the bilateral extraperitoneal pelvis and to a lesser ext ent in the left retroperitoneum. Aorta and Major Vessels: Aortoiliac vessels are normal in caliber containing moderate calcified ather osclerotic plaque. Bowel, Mesentery and Peritoneal space: The small and large bowel loops are normal in caliber. There i s [id number] colonic diverticulosis. There is no free air or loculated fluid collection. There is a gastric tube which terminates in the body of the stomach. There is moderate intermediate densit y fluid predominantly in the extraperitoneal pelvis and adjacent/within the lower bilateral inferior rectus musculature. Pelvis: The Martines catheter decompresses the urinary bladder. There is prominence of the endometrium m easuring at least 2.8 cm on sagittal image 88. There is no pelvic lymphadenopathy. Abdominal wall and Osseous Structures: There is mild body wall edema. Multilevel lumbar spondylosis. No destructive osseous lesion. IMPRESSION: 1. Moderate intermediate density right perinephric fluid extending into the bilateral extrarenal pelv is and also to a lesser extent in the peritoneal cavity, which could reflect retroperitoneal hematoma . Evaluation for active bleeding limited on this examination. 2. Moderate partially loculated right pleural effusion with a right thoracostomy tube terminating in the anterior medial right upper lobe. 3. Development of a small amount of air in the right pleural space at the level of the right middle l obe concordant with pneumothorax. 4. Bilateral renal calculi with a staghorn appearing calculus on the left. 5. Dependent consolidations of the gpaqp-[id number]-urut-left lower lobes which could reflect atelectasi s and/or pneumonia (which can be on the basis of aspiration. 6. Mild cardiomegaly, mild aortic valve calcifications and moderate coronary artery calcifications. M ild Interstitial pulmonary edema.
[2024-04-22 03:50] LABS: Basophils # (auto) 0.1 10 ^3/uL (0-0.2); Basophils % (auto) 0.7 % (0.0-2.0); Eosinophils # (auto) 0.5 10 ^3/uL (0-0.8); Eosinophils % (auto) 2.9 % (0.0-7.0); Hematocrit 25.6 % (36.0-46.0); Hemoglobin 8.1 g/dL (12.2-16.2); Lymphocytes # (auto) 1.6 10 ^3/uL (0.4-5.4); Lymphocytes % (auto) 9.4 % (10.0-50.0); Mean Corpuscular Hemoglobin 28.7 pg (28.0-32.0); Mean Corpuscular Hgb Conc. 31.9 g/dL (32.0-36.0); Monocytes % (auto) 6.2 % (0.0-12.0); Neutrophils # (auto) 13.4 10 ^3/uL (1.6-8.6); Neutrophils % (auto) 80.8 % (37.0-80.0); Platelet Count (auto) 313 10^3/uL (140-450); Red Blood Cells 2.84 10^6/uL (4.0-5.20); White Blood Cell 16.6 10^3/uL (4.4-10.8)
[2024-04-22 04:01] LABS: Chloride 114 mmol/L (98-107); Sodium 145 mmol/L (136-145)
[2024-04-22 04:03] LABS: Anion Gap 10 (5-15); Blood Urea Nitrogen 39 mg/dL (9-23); Calcium 8.3 mg/dL (8.7-10.4); Carbon Dioxide 21 mmol/L (20-31)
[2024-04-22 04:19] LABS: Glucose 131 mg/dL (74-106)
--- NOTE | 2024-04-22 04:59 | DVH ---
CHEST RADIOGRAPH Indication:INTUBATED Technique: Single frontal view of the chest was obtained Comparison: XY CHEST PORTABLE on DOS: 04/21/24 FINDINGS: Lines and Tubes: The endotracheal tube terminates 5.1 cm above the mili. The enteric tube courses b elow the left hemidiaphragm in the tip extends outside the field of view. Right PICC terminates in th e superior vena cava. Right chest tube is unchanged. Lungs: Bibasilar opacities similar to prior study. Pleura: Bilateral pleural effusions. No pneumothorax. Cardiomediastinal contours: Unremarkable Bones: No acute osseous abnormality. IMPRESSION: 1. Bibasilar opacities representing pleural effusions and airspace disease similar to prior study. 2. Satisfactory position of the support lines and tubes.
[2024-04-22 07:14] LABS: INR 1.08 (0.9-1.15); Partial Thromboplastin Time 44.7 SEC (24.5-34.5); Prothrombin Time 11.4 sec (9.3-11.8)
[2024-04-22 07:47] LABS: Base Excess -5.1 mmol/L (-2.0-3.0)
[2024-04-22] MEDS: BUMETANIDE 2.5mg/10ml (0.25 mg/ml) INJ IV ONE ×2 (08:00→09:32)
--- NOTE | 2024-04-22 08:28 | DVHPNRES ---
Progress Note Date Seen: Apr 22, 2024 Resident Creating Document: JUAN VAZQUEZ RESIDENT Has the PT tested + for MRSA If YES, has PT been informed?: No Medical Necessity Reason Pt with a Central, PICC or Fol: Yes The following are medically ne: Central Line, Whipple Catheter Reason for whipple catheter: Strict I&O Subjective Review of Systems HPI: 68/female, past medical history: Unknown Patient is 68-year-old female who was brought to the hospital from [facility] for higher level of care. Patient was initially treated facility for shortness of breath and was transferred to our hospital. During initial ED evaluation patient found to be tachypneic with severe respiratory failure, atrial fibrillation. Initially patient required oxygenation via non- rebreather mask however patient intubated to protect airway. Patient started on IV antibiotic, requiring vasopressor and amiodarone drip initially. With further evaluation chest ultrasound showed bilateral pleural effusion, CT scan of chest and abdomen was performed which showed partially loculated right pleural effusion and consolidation in right middle and lower lobe. Patient also found to have right hydronephrosis with 1.9 cm calculus into right UPJ. Radiologist performed right-sided thoracentesis which removed 250 mL of fluid. L patient was placed with right-sided chest tube for loculated empyema. Patient underwent right thoracoscopy with evacuation empyema with insertion of chest tube. Patient was extubated on April 16/2024. Patient was reintubated back given possible STEMI and transferred to left heart catheterization. Bartender Server did angioplasty for complete total occlusion of mid LAD. Started on heparin drip, aspirin and Plavix. Patient continued to have x-ray findings with right lower lobe opacity. Continued on antibiotic. Continued require vasopressors, chest type continued to drain. No air leak. ROS: Not obtained as patient is intubated Vitals: Respiratory rate 22, pulse 81, SpO2 96, blood pressure 121/67-107/58 Ventilatory settings: Respiratory rate 18, tidal volume 500, FiO2 30%, peep 5 cm H2O Urine Input/output: Positive balance 2193 mL, 75 mL urine output in last 12 hours during last night ABG: On 04/22/2024: PH 7.327, pCO2 40., PO2 of 64.4, HC03 20.5, normal PH.: metabolic acidosis Chest x-ray: On 04/21/2024, Lines and tubes in satisfactory position. No significant interval change, right pleural effusion, right lower lobe patchy infiltrate Chest CT on 07/21/2023: Right-sided loculated pleural effusion,, small right pneumothorax, loculated empyema, right small perinephric hematoma, Overnight event: None Labs, micro, imaging/study Abnormal labs: Trending WBC count high . 12> 13.8> 16.3>18>18.2>16.6 Micro: Urine culture growing yeast, respiratory culture growing yeast Today patient was seen and examined at bedside. Patient continued to be on ventilator , no drainage over the night over chest tube, no night event notified from retail shift supervisor, continued to be on vasopressor norepinephrine, heparin drip. reset merchandiser urine output was 75 ml in last 12 hours. NO other complains. Objective vital signs Vital Sign Date Time Temp Pulse Resp B/P (MAP) Pulse Ox O2 Delivery O2 Flow Rate FiO2 04/22/24 06:45 97.3 79 23 118/66 (83) 98 207.1 04/22/24 06:34 30 04/22/24 06:19 Mechanical Ventilator+ Total Intake and Output 04/21/24 04/21/24 04/22/24 15:00 23:00 07:00 Intake Total 450.752 ml 949.752 ml 907.564 ml Output Total 40 ml 125 ml Balance 450.752 ml 909.752 ml 782.564 ml medications Current Medications Medications Dose Ordered Sig/Destini Route Start Time Stop Time Status Last Admin Dose Admin Heparin Sodium/ Dextrose 250 ml @ 18 mls/hr [id number] IV 03/31/24 23:45 UNV Midazolam HCl 50 ml @ 1 mls/hr Q24H IV 04/01/24 01:30 04/22/24 05:44 11 MLS/HR Ondansetron HCl 4 mg Q4HP PRN IV 04/01/24 05:00 Albumin Human 100 ml @ 100 mls/hr KIRAN PRN IV 04/03/24 07:00 Norepinephrine Bitartrate 32 mg/ Sodium Chloride 250 ml @ 0.469 mls/ hr Q24H IV 04/04/24 06:30 04/21/24 05:54 6.094 MLS/HR Sodium Chloride 10 ml QSHIFT@ IV 04/09/24 22:00 04/21/24 22:02 10 ML Iron Sucrose 110 ml @ 110 mls/hr DAILY@1200 IV 04/10/24 12:00 Hold 04/19/24 13:25 110 MLS/HR Amiodarone HCl 200 mg Q12HR PO 04/10/24 22:00 UNV Amiodarone HCl 200 mg Q12HR PO 04/10/24 22:00 04/21/24 21:49 200 MG Nystatin 1 applic BID TOP 04/12/24 22:00 04/21/24 21:49 1 APPLIC Enoxaparin Sodium 40 mg DAILY SC 04/14/24 10:00 Hold 04/16/24 09:20 40 MG Albuterol 2.5 mg Q4HR NEB 04/16/24 18:00 04/22/24 06:34 2.5 MG Ipratropium Early 0.5 mg Q4HR NEB 04/16/24 18:00 04/22/24 06:34 0.5 MG Budesonide 0.5 mg BID NEB 04/16/24 22:00 04/22/24 06:34 0.5 MG Clopidogrel Bisulfate 75 mg DAILY PO 04/18/24 10:00 04/21/24 09:25 75 MG Fentanyl Citrate 250 ml @ 2.5 mls/hr Q24H IV 04/20/24 22:30 04/22/24 05:45 15 MLS/HR Aspirin 81 mg DAILY PO 04/22/24 10:00 Purified Water 200 ml Q6HR GT 04/21/24 18:00 04/22/24 06:03 200 ML Enteral Nutritional Formula 1,000 ml 30ML/HR GT 04/21/24 14:45 Piperacillin Sod/ Tazobactam Sod 100 ml @ 25 mls/hr Q8H IV 04/22/24 00:00 04/22/24 00:08 25 MLS/HR Micafungin Sodium 100 mg/Sodium Chloride 100 ml @ 100 mls/hr DAILY IV 04/22/24 10:00 Pantoprazole Sodium 40 mg DAILY IV 04/22/24 10:00 Heparin Sodium/ Dextrose 250 ml @ 17 mls/hr [id number] IV 04/22/24 00:15 04/22/24 05:55 17 MLS/HR Examination General: Patient is intubated and sedated. HEENT: Normocephalic, atraumatic, moist mucous membranes Respiratory/pulmonary: There are no breath sounds audible in the right lung base and diminished breath sounds on the left lung as well. Cardiovascular: Heart rate and rhythm is oscillating significantly from sinus rhythm to AFib rate controlled to AFib with RVR. No murmurs at this time. Abdomen: Abdomen slightly distended, there is no pain to palpation in any of the abdominal quadrants, no palpable masses. Extremities: There is minimal swelling in the lower extremities bilaterally. Peripheral Pulses: 3+ Radial (R). 3+ Radial (L). 3+ Dorsalis pedis (R). 3+ Dorsalis pedis(L) Skin: There is dry skin in bilateral lower extremities with scales and excoriations. Neurological: Sedated, RASS -3 laboratory and microbiology Laboratory Tests 04/22/24 03:05 Test 04/22/24 03:05 Range/Units Serum Glucose 131 H 74-106 mg/dL Microbiology Date/Time Source Procedure Growth Status 04/18/24 15:02 Sputum Gram Stain - Final Resulted 04/18/24 15:02 Sputum Respiratory Culture - Preliminary Resulted 04/18/24 10:50 Voided Urine Urine Culture - Final Yeast, not Arlet albicans Complete 04/18/24 09:20 Blood Blood Culture - Preliminary NO GROWTH AFTER 72 HOURS OF INCUBATION. Resulted 04/08/24 08:02 Thoracic Fluid Gram Stain - Final Complete 04/08/24 08:02 Thoracic Fluid Anaerobic Culture - Final Complete 04/08/24 08:02 Thoracic Fluid Aerobic Culture - Final Complete 04/01/24 11:19 Nose MRSA Screen - Final Complete Problem List/Assessment/Plan Problem List/Assessment/Plan Neurology Sedation -currently on midazolam and fentanyl Respiratory Acute hypoxic respirtory failure likel due to right-sided pleural effusion/empyema and consolidation on right middle and lower lobes -Order CT chest without contrast, CT abdominal pelvis without contrast -on mechanical ventilation: Respiratory rate 16, tidal volume 500, FiO2 30%, peep 5 cm H2O -presence of chest tube: Minimal drainage, no air leak. -chest x-ray on 04/22/2022: Right-sided pleural effusion, right lower lobe opacification. -IV antibiotic with Zosyn plus micafungin -CT of the chest and abdomen showed moderate partial loculated right pleural effusion and consolidation on right middle/lower lobes. Mild cardiomegaly and interstitial pulmonary edema. It also showed right hydronephrosis with 1.9 cm calculus into the right UPJ. There is also a 2.6 cm staghorn appearing calculus causing mid to lower pole left hydronephrosis. -Respiratory culture: Yeast, not Arlet on 04/17/2024. Repeat culture pending. -CT chest(04/22/24):1. Moderate intermediate density right perinephric fluid extending into the bilateral extrarenal pelvis and also to a lesser extent in the peritoneal cavity, which could reflect retroperitoneal hematoma. Evaluation for active bleeding limited on this examination. 2. Moderate partially loculated right pleural effusion with a right thoracostomy tube terminating in the anterior medial right upper lobe. 3. Development of a small amount of air in the right pleural space at the level of the right middle lobe concordant with pneumothorax. 4. Bilateral renal calculi with a staghorn appearing calculus on the left. 5. Dependent consolidations of the [id number]-left lower lobes which could reflect atelectasis and/or pneumonia (which can be on the basis of aspiration. 6. Mild cardiomegaly, mild aortic valve calcifications and moderate coronary artery calcifications. Mild Interstitial pulmonary edema. -radiology consultation for right loculated effusion drainage/tube placement Septic shock in the setting of loculated right-sided pleural effusion and pneumonia -continue management of acute respiratory failure likely due to empyema. -vasopressor with norepinephrine 30 microgram/minute. - continue micafungin and zosyn -started Bumex 1 mg IV Once daily -Respiratory culture positive for yeast on 04/17/2024. -Repeat blood culture pending Cardiology Acute on chronic systolic/diastolic heart failure -Started bumex drip -echocardiogram is showing an LVEF of 55-60% with increased RVSP at 48 mmHg and no pericardial effusion NSTEMI type II likely due to above -continue current management. Atrial fibrilation with RVR: Rate controlled -continue heparin drip -continue amiodarone 200 mg p.o. b.i.d. Nephrology Hypernatremia, NA 145 -free water 200 mL q.6 via G-tube -repeat sodium level in a.m. Bilateral hydronephrosis with left-sided staghorn calculi and right UVJ calculi -CT scan of the chest and abdomen showed right hydronephrosis with 1.9 cm calculus into the right UPJ, there was also a 2.6 cm staghorn appearing calculus causing mid to lower pole left hydronephrosis. -nephrology on board -drainage with Whipple catheter. -continue INR monitoring CHRISTOPH due to VMN initially likely in setting of septic shock: Resolved -most likely secondary to bilateral renal calculi -nephrology and urology on board -monitor kidney function -urine output 75 mL in last 12 hour -resume Bumex 1 mg IV once daily, on dopamine 2mcq/kg/min by nephrology Hypokalemia -replenish Nutrition Nepro 30 mL/hour via G-tube. Lines: Right upper arm PICC line: Placed on 04/09/2024 PUD prophylaxis: Protonix DVT prophylaxis: Heparin drip- STOP Goals of care discussed with the daughter and brother at bedside for >31min by Dr. Alin Dawson previously Critical time spent > 66 min Plan discussed with Dr. Jones Plan discussed with: Other (RN) My Orders My Orders Orders - JUAN VAZQUEZ RESIDENT Procedure Category Date Status Time Micafungin Sodium PHA 04/22/24 In Process (Mycamine) 10:00 Chst Ab Pel Wo Con-No CT 04/21/24 Resulted Iv/Oral 16:49 Pantoprazole PHA 04/22/24 In Process (Protonix) 10:00 Chest Portable XY 04/22/24 Resulted 04:00 Abg W/ Co-Ox RT 04/22/24 Logged 04:00 Bumetanide Injection PHA 04/22/24 Transmitted (Bumex Injection) 08:00 Bumetanide Injection PHA 04/22/24 Transmitted (Bumex Injection) 08:00 Dietary Evaluation Review Comments: 1) If GI is accessible consider Nepro 1.8 @ 30 ml/hr goal rate as tolerated with current rate of propofol on board. 2) If pt remains NPO >7 days consider TPN to meet at least 75% of estimated needs 3) If pt continues to receive HD, advance pt diet when medically feasible to a Renal Standard diet modified per [employer] recommendations 4) If HD is discontinued and GFR is within normal range, advance pt diet to a Regular diet, modified per [employer] recommendations 5)If HD is discontinued and GFR lies within STG 1-4, advance pt diet to a Renal Specific K2,lowphos,HECTOR,2gmNa,80gPro diet 6) If HD is discontinued and if GFR returns to normal levels then ALEXANDRA 1 pkt BID with meals may be considered to aid with wound healing 7) Continue current plan of care Expected Outcomes/Goals: 1) Pt to receive nutrition support within 7 days of NPO status 2) Pt labs to improve 3) Pt diet to advance 4) F/U in 2-3 days Date of Service: Apr 22, 2024 Billing Provider: LAURIE JONES MD Common Visit Codes: [id number] CARE 30-74 MIN JUAN VAZQUEZ RESIDENT Apr 22, 2024 08:28 LAURIE JONES MD Apr 23, 2024 12:56
--- NOTE | 2024-04-22 08:35 | DVHPN2 ---
Progress Note - Dictate Date Seen: Apr 22, 2024 Has the PT tested + for MRSA If YES, has PT been informed?: No Medical Necessity Reason Pt with a Central, PICC or Fol: Yes The following are medically ne: Central Line, Whipple Catheter Reason for whipple catheter: Strict I&O vital signs Vital Sign Date Time Temp Pulse Resp B/P (MAP) Pulse Ox O2 Delivery O2 Flow Rate FiO2 04/22/24 06:45 97.3 79 23 118/66 (83) 98 207.1 04/22/24 06:34 30 04/22/24 06:19 Mechanical Ventilator+ Total Intake and Output 04/21/24 04/21/24 04/22/24 15:00 23:00 07:00 Intake Total 450.752 ml 949.752 ml 907.564 ml Output Total 40 ml 125 ml Balance 450.752 ml 909.752 ml 782.564 ml medications Current Medications Medications Dose Ordered Sig/Destini Route Start Time Stop Time Status Last Admin Dose Admin Heparin Sodium/ Dextrose 250 ml @ 18 mls/hr [id number] IV 03/31/24 23:45 UNV Midazolam HCl 50 ml @ 1 mls/hr Q24H IV 04/01/24 01:30 04/22/24 05:44 11 MLS/HR Ondansetron HCl 4 mg Q4HP PRN IV 04/01/24 05:00 Albumin Human 100 ml @ 100 mls/hr KIRAN PRN IV 04/03/24 07:00 Norepinephrine Bitartrate 32 mg/ Sodium Chloride 250 ml @ 0.469 mls/ hr Q24H IV 04/04/24 06:30 04/21/24 05:54 6.094 MLS/HR Sodium Chloride 10 ml QSHIFT@,22 IV 04/09/24 22:00 04/21/24 22:02 10 ML Iron Sucrose 110 ml @ 110 mls/hr DAILY@1200 IV 04/10/24 12:00 Hold 04/19/24 13:25 110 MLS/HR Amiodarone HCl 200 mg Q12HR PO 04/10/24 22:00 UNV Amiodarone HCl 200 mg Q12HR PO 04/10/24 22:00 04/21/24 21:49 200 MG Nystatin 1 applic BID TOP 04/12/24 22:00 04/21/24 21:49 1 APPLIC Enoxaparin Sodium 40 mg DAILY SC 04/14/24 10:00 Hold 04/16/24 09:20 40 MG Albuterol 2.5 mg Q4HR NEB 04/16/24 18:00 04/22/24 06:34 2.5 MG Ipratropium Roland 0.5 mg Q4HR NEB 04/16/24 18:00 04/22/24 06:34 0.5 MG Budesonide 0.5 mg BID NEB 04/16/24 22:00 04/22/24 06:34 0.5 MG Clopidogrel Bisulfate 75 mg DAILY PO 04/18/24 10:00 04/21/24 09:25 75 MG Fentanyl Citrate 250 ml @ 2.5 mls/hr Q24H IV 04/20/24 22:30 04/22/24 05:45 15 MLS/HR Aspirin 81 mg DAILY PO 04/22/24 10:00 Purified Water 200 ml Q6HR GT 04/21/24 18:00 04/22/24 06:03 200 ML Enteral Nutritional Formula 1,000 ml 30ML/HR GT 04/21/24 14:45 Piperacillin Sod/ Tazobactam Sod 100 ml @ 25 mls/hr Q8H IV 04/22/24 00:00 04/22/24 00:08 25 MLS/HR Micafungin Sodium 100 mg/Sodium Chloride 100 ml @ 100 mls/hr DAILY IV 04/22/24 10:00 Pantoprazole Sodium 40 mg DAILY IV 04/22/24 10:00 Heparin Sodium/ Dextrose 250 ml @ 17 mls/hr [id number] IV 04/22/24 00:15 04/22/24 05:55 17 MLS/HR laboratory and microbiology Laboratory Tests 04/22/24 03:05 Test 04/22/24 03:05 Range/Units Serum Glucose 131 H 74-106 mg/dL Assessment/Plan There was question about EKG showing STEMI. Patient was intubated again by primary team and taken to [facility]. 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 s/p balloon angioplasty with minimal / partial result s/p thoracoscopy and chest tube placement Patient is a 68-year-old female who was transferred from [facility]. She originally presented to [facility] for shortness of breath ongoing for few days. She is intubated and is being managed in ICU. Information was obtained by reviewing the chart and communicating with staff. Reportedly, she presented with respiratory failure to [facility] (oxygen saturation was 88%) and over there was found to have white blood cell count of 26.6, hemoglobin of 11.1, creatinine of 5.6, potassium of 5.6 and troponin of 1.01. She was given 365 mg of aspirin in [facility]. She did have an episode of atrial fibrillation with RVR with questionable ST changes and was transferred to our facility for further care. She was also found to have right pleural effusion in [facility] and was diagnosed with non-STEMI. Intubated, on vent support. Obese. Mucosa is pale. Scattered rhonchi in the lungs is heard. Cardiac: Regular, no thrill/gallop. Abdomen is soft with increased bowel sounds. There is no gross mass. Extremities reveal 1+ edema bilaterally. Available past medical history includes obesity and questionable history of psoriasis. WBC: 25.3 - 23.7 - 20.2 - 20.5 - 17.6 - 18.4 - 19.2 - 19.4 - 22.2 - 16.4 - 16.1 - 19.5 - 14.7 - 12.3 - 9.8 - 10.0 - 8.3 - 9.2 - 10.2 - 11.4 - 10.3 - 12.0 - 13.8 - 16.3 - 18.0 - 18.2 - 16.6 Hemoglobin: 10.8 - 9.1 - 8.5 - 8.4 - 8.8 - 8.6 - 8.9 - 8.1 - 8.4 - 8.1 - 8.1 - 8.2 - 8.0 - 7.4 - 7.4 - 7.7 - 7.1 - 8.0 - 7.5 - 8.8 - 7.1 - 9.0 - 8.9 - 9.0 - 8.4 - 8.4 - 8.4 - 8.1 D-dimer: 3.62 Creatinine: 5.67 - 5.78 - 5.41 - 4.92 - 4.55 - 4.68 - 4.71 - 4.64 - 4.48 - 3.83 - 3.66 - 3.65 - 3.25 - 2.82 - 2.41 - 2.34 - 2.01 - 1.90 - 1.60 - 1.83 - 1.73 - 1.74 - 1.76 - 1.78 - 1.82 - 1.94 - 1.99 - 1.93 - 1.95 Potassium: 6.0 - 6.3 - 6.1 - 6.0 - 5.3 - 5.0 - 4.9 - 4.8 - 5.1 - 5.4 - 4.9 - 5.3 - 4.8 - 4.5 - 4.7 - 4.3 - 4.2 - 3.9 - 4.6 - 3.8 - 3.5 - 3.3 - 3.6 - 3.6 - 4.0 - 3.5 - 4.0 - 3.7 - 3.6 - 3.5 - 3.4 - 4.0 Lactic acid: 3.3 - 3.4 - 2.3 - 2.5 - 2.5 - 2.7 - 2.4 - 2.5 - 3.1 - 2.3 - 1.7 - 1.7 TSH: 1.71 BNP: 274.69 - 1944.81 - 373.79 Troponin (high sensitive): 9693 - 4693 - 5191 - 1061 - 470 - 4338 Blood culture: positive Pleural fluid culture: E-coli Digoxin level: 2.09 Stool OB: positive Chest x-ray revealed: IMPRESSION: 1. Moderate right pleural effusion. 2. Cardiomegaly with mild pulmonary vascular congestion bilaterally. Repeat chest x-ray revealed: IMPRESSION: 1. Endotracheal tube and gastric tubes in place as described. 2. Right IJ central venous catheter projects over the lower SVC. 3. Mild cardiomegaly and prominence of the pulmonary vasculature. 4. Moderate to large right pleural effusion. Repeat chest x-ray revealed: IMPRESSION: Similar lung aeration with large right pleural effusion. No pneumothorax seen. Stable lines and tubes. Repeat chest x-ray revealed: IMPRESSION: Similar lung aeration with large right pleural effusion. No pneumothorax seen. Stable lines and tubes. Repeat chest xry revealed: Lines and tubes: ET in the mid thoracic trachea. NG crosses midline. Right CVC is stable. Left HD catheter projects over the mediastinum. Cardiomediastinal silhouette: Enlarged Pulmonary vasculature: prominent Lung expansion: low Lung airspace: patchy bilateral airspace opacity. Lung interstitium: normal Pleura: Similar large right effusion. Pneumothorax: no Bones: Unremarkable Other: no IMPRESSION: Lines and tubes, as above. Similar lung aeration bilaterally with a right pleural effusion and patchy airspace opacities. Repeat chest xry revealed: IMPRESSION: 1. Stable position of the support lines and tubes. 2. Interstitial and alveolar opacities. Repeat chest xry revealed: IMPRESSION: Unchanged multifocal airspace disease. Small to moderate right pleural effusion ; possibly loculated. Repeat chest xry revealed: IMPRESSION: Lines and tubes in satisfactory position. No significant interval change. Repeat chest xry revealed: IMPRESSION: 1. Support lines and tubes in appropriate position. 2. Pulmonary vascular congestion. 3. Bilateral pleural effusions, right greater than left. Repeat chest xry revealed: IMPRESSION: 1. Support lines and tubes in appropriate position. 2. Pulmonary vascular congestion. 3. Bilateral pleural effusions, right greater than left. Repeat chest xry revealed: IMPRESSION: Interval placement of right chest tube which projects deep into the right hilar region. Repeat chest xry revealed: IMPRESSION: No interval change Repeat chest xry revealed: Findings/IMPRESSION: Right IJ CVC terminating in the SVC. Endotracheal tube projected 5 cm superior to the mili. Enteric tube projected below the GE junction. Right-sided PICC projects terminating near the cavoatrial junction. Small bilateral pleural effusions and/or atelectasis with superimposed infection not excluded. Repeat chest xry revealed: MPRESSION: 1. Bilateral pleural effusions and airspace disease right greater than left. Repeat chest xry revealed: IMPRESSION: 1. Endotracheal tube terminates 6.0 cm above the mili, previously 3.1 cm above the mili. Otherwise, No significant interval change. Repeat chest xry revealed: IMPRESSION: 1. Endotracheal tube terminates 6.0 cm above the mili, previously 3.1 cm above the mili. Otherwise, No significant interval change. Repeat chest xry revealed: IMPRESSION: Lines and tubes in satisfactory position. No significant interval change. Repeat chest xry revealed: IMPRESSION: Lines and tubes in satisfactory position. No significant interval change. Repeat chest xry revealed: IMPRESSION: Lines and tubes in satisfactory position. No significant interval change. Repeat chest xry revealed: IMPRESSION: Lines and tubes in satisfactory position. No significant interval change. Repeat chest xry revealed: IMPRESSION: Endotracheal tube projects in appropriate position. Otherwise no significant change Repeat chest xry revealed: FINDINGS: Lines and Tubes: Right PICC and enteric catheter and right chest tube in satisfactory position. Endotracheal tube projects 3.8 cm above the level of the mili. Lungs: Bibasilar opacities. Pleura: Possible small right pleural effusion. No pneumothorax. Cardiomediastinal contours: Unremarkable Bones: Unremarkable IMPRESSION: No significant change compared to prior exam. Repeat chest xry revealed: IMPRESSION: Lines and tubes in satisfactory position. No significant interval change. Repeat chest xry revealed: IMPRESSION: 1. Bibasilar opacities representing pleural effusions and airspace disease similar to prior study. 2. Satisfactory position of the support lines and tubes. Renal ultrasound revealed: IMPRESSION: 1. Right kidney measures 13.4 cm. Decreased cortical thickness on the right. 2. Left kidney measures 10.2 cm. 3. No hydronephrosis on the right grade 1 hydronephrosis on the left. 4. Bilateral renal calculi. CT scan of the chest/abdomen and pelvis revealed: IMPRESSION: 1. Moderate partially loculated right pleural effusion and consolidations in the right middle and lower lobes which could be pneumonia and/or atelectasis. 2. Mild cardiomegaly, mild interstitial pulmonary edema, and body wall edema. 3. There is a 1.9 cm calculus in the right UPJ with mild right hydronephrosis 4. There is a 2.6 cm somewhat staghorn appearing calculus in the left renal pelvis and UPJ causing mild predominantly mid to lower pole left hydronephrosis. Mild soft tissue stranding about the left renal pelvis which could be due to obstruction or superimposed infection. Correlate with urinalysis. 5. Partial duplication of the left renal collecting system without hydronephrosis in the upper pole. 6. Moderate right perinephric, right retroperitoneal, and bilateral extraperitoneal pelvis low-density fluid and very mild left retroperitoneal low-density fluid. This could be fluid related to bilateral renal obstructions and forniceal ruptures versus evolved retroperitoneal hematoma. This is suboptimally evaluated without intravenous contrast. 7. Fluid-filled small and large bowel loops which may be physiologic or related to enterocolitis and could be manifesting as loose stools and/or diarrhea. 8. Prominent endometrium measuring at least 2.8 cm, suboptimally evaluated by CT. Recommend characterization with nonemergent pelvic ultrasound if clinically indicated. 9. Mild hepatosplenomegaly. 10. Moderate three-vessel calcified coronary artery disease and mild aortic valve calcification. 11. Right IJ central venous catheter in place terminating in the low SVC. 12. Small soft tissue stranding in the right supraclavicular neck which could be blood products. 13. Endotracheal tube terminates above the mili. Repeat CT of chest / abdomen and pelvis revealed: IMPRESSION: 1. Moderate intermediate density right perinephric fluid extending into the bilateral extrarenal pelvis and also to a lesser extent in the peritoneal cavity, which could reflect retroperitoneal hematoma. Evaluation for active bleeding limited on this examination. 2. Moderate partially loculated right pleural effusion with a right thoracostomy tube terminating in the anterior medial right upper lobe. 3. Development of a small amount of air in the right pleural space at the level of the right middle lobe concordant with pneumothorax. 4. Bilateral renal calculi with a staghorn appearing calculus on the left. 5. Dependent consolidations of the [id number]-left lower lobes which could reflect atelectasis and/or pneumonia (which can be on the basis of aspiration. 6. Mild cardiomegaly, mild aortic valve calcifications and moderate coronary artery calcifications. Mild Interstitial pulmonary edema. CT of the head revealed: IMPRESSION: 1. No acute intracranial abnormality. 2. Generalized cerebral volume loss and mild chronic microvascular ischemic change. 3. Partially imaged endotracheal tube. Chest ultrasound revealed: Findings/Impression: There is a trace bilateral pleural effusion. Thoracentesis: FINDINGS: Moderate size, complex and septated right pleural effusion. Aspirated fluid is thick and green in consistency. IMPRESSION: Right thoracentesis with 250 mL removed for laboratory analysis. EKG in [facility] revealed sinus tachycardia, poor R-wave progression old inferior wall SC. later EKG revealed atrial fibrillation with RVR. Repeat EKGs questioned STEMI. but resolved later. Telemetry reveals sinus rhythm, occasions of A-fib with RVR, SVT Echocardiogram revealed: Technically limited study secondary to poor acoustic windows. Left ventricle: Left ventricle was normal-sized. Mild concentric left ventricular hypertrophy was seen. LVEF was 55-60%. No gross wall motion abnormality was observed, but its presence can not be ruled out on the basis of this study. Right ventricle is mildly dilated with normal systolic function. Left atrium was mildly dilated. Right atrium was normal-sized. Aortic valve was trileaflet. There was no aortic insufficiency. There was aortic sclerosis with no stenosis. There was trivial mitral/tricuspid regurgitation. Pulmonary valve was not well visualized. Right ventricular systolic pressure was assessed around 48 mm Hg. There was no pericardial effusion. 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 LVEF of 25% (dilated LV). Cardiac suggestion for management: Dual antiplatelet therapy (loaded with aspirin and Plavix). Guideline directed medical therapy for systolic heart failure Repeat echo revealed: Technically limited study secondary to poor acoustic windows. Left ventricle: Concentric left ventricular hypertrophy was seen anteroapical hypokinesia was seen. The LVEF was around 40%. Right ventricular was normal sized with normal systolic function. Atria were not well-visualized. Aortic valve: Aortic valve was not well visualized. There was no aortic stenosis/insufficiency. Mild mitral/tricuspid regurgitation was observed. Pulmonary valve was not well visualized. Right ventricular systolic pressure was assessed around 35 mm Hg. There was no pericardial effusion. Patient is a 68-year-old morbidly obese patient who presented with respiratory failure to the hospital. Presentation is in favor of sepsis/septic shock. Multiorgan failure is observed. She is intubated and on vent support. She is on multiple pressor support. Life findings are in favor of acute renal failure. She also is known to have nephrolithiasis with history of staghorn calculi. Cardiac-ceballos, the patient did have episode of atrial fibrillation with RVR. She is found to have increased troponin. Presentation questions non-STEMI and possibly type 2 ischemia. Recognizing the presentation, ischemic workup should be postponed after clinical stability (only if patient recovers higher brain function). Is being followed by Nephrology. Had episodes of tachyarrhythmia. Loaded with Digoxin. Positive cultures. Repeated a-fib with RVR. 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 s/p balloon angioplasty with minimal / partial result Cardiac suggestion for management: Manage in ICU Follow-up electrolytes and kidney function tests and correct abnormalities Pressure support to keep mean arterial pressure above 65 Amiodarone oral/O mg BID Daily aspirin (81 mg daily) Plavix: 75 mg daily s/p thoracoscopy and chest tube placement IV metoprolol PRN for a-fib with RVR episodes. Sepsis workup and management as per primary team Evaluation and management of respiratory failure as per primary team/Pulmonary Evaluation and management of nephrolithiasis/hydronephrosis as per primary/Urology Evaluation and management of acute renal failure as per Nephrology Further evaluation and management as per above and clinical course. A total of 75 minutes was spent reviewing the patient record, examining the patient, making a diagnostic and therapeutic plan, discussing this plan with medical personnel, following up on diagnostic studies and following the patient for clinical stability excluding any and all procedures. At least 50% of this time was spent in direct, mola-fl-rdin contact. Thank you for allowing me to participate in this patient's care. Further recommendations will depend on patient's clinical course. Please do not hesitate to contact me if you have any questions or concerns. This medical document was created using electronic medical record system with [employer] computerized dictation system. Although this document has been carefully reviewed, there may still be some phonetic and typographical errors. These areas are purely typographical due to the imperfection of the software programs, and do not reflect any compromise in the patient's medical care. Dietary Evaluation Review Comments: 1) If GI is accessible consider Nepro 1.8 @ 30 ml/hr goal rate as tolerated with current rate of propofol on board. 2) If pt remains NPO >7 days consider TPN to meet at least 75% of estimated needs 3) If pt continues to receive HD, advance pt diet when medically feasible to a Renal Standard diet modified per [employer] recommendations 4) If HD is discontinued and GFR is within normal range, advance pt diet to a Regular diet, modified per [employer] recommendations 5)If HD is discontinued and GFR lies within STG 1-4, advance pt diet to a Renal Specific K2,lowphos,HECTOR,2gmNa,80gPro diet 6) If HD is discontinued and if GFR returns to normal levels then ALEXANDRA 1 pkt BID with meals may be considered to aid with wound healing 7) Continue current plan of care Expected Outcomes/Goals: 1) Pt to receive nutrition support within 7 days of NPO status 2) Pt labs to improve 3) Pt diet to advance 4) F/U in 2-3 days Plan discussed with: Other (nurse) HERMINIO JOHNSON MD Apr 22, 2024 08:35
--- NOTE | 2024-04-22 08:42 | DVHSR ---
APPROVED REPORT EXAM: LIMITED Two-dimensional and M-mode echocardiogram with Doppler and color Doppler. Blood Pressure: 105/59 mmHg INDICATION Repeat echo RISK FACTORS Obesity: Height: 5'8", Weight: 286 DIMENSIONS LVDd3.4 (3.8-5.7cm)LA (2D)3.9 (1.9-4.0cm)Aortic Root3.8 (2.0-3.7cm) LVDs2.9 (2.5-4.0cm)LA (MM) (1.9-4.0cm)Aortic Cusp Exc1.5 (1.5-2.0cm) EF (%) 40.0 (55-70%)Rt. Atrium4.1 (1.9-4.0cm)Asc. Aorta cm IVSd1.4 (0.7-1.1cm)RV (D)4.0 (1.8-2.4cm) PWd1.2 (0.7-1.1cm) Mitral Valve MitralMitral Stenosis E/A ratio0.02D MVAcm2 Aortic Valve Aortic ValveAortic Stenosis V11.19m/Silvino Mean GR.14mmHg V22.79m/Silvino Peak GR.31mmHg LVOT Diameter2.0 (1.8-2.4cm)Doppler AVA1.34cm2 Tricuspid Valve TR Velocity2.88m/s [id number] Other Information Quality : Technically LimitedRhythm : Technically limited study due to body habitus, patient position and on vent. Conclusion Technically limited study secondary to poor acoustic windows. Left ventricle: Concentric left ventricular hypertrophy was seen anteroapical hypokinesia was seen. The LVEF was around 40%. Right ventricular was normal sized with normal systolic function. Atria were not well-visualized. Aortic valve: Aortic valve was not well visualized. There was no aortic stenosis/insufficiency. Mi ld mitral/tricuspid regurgitation was observed. Pulmonary valve was not well visualized. Right ventricular systolic pressure was assessed around 35 mm Hg. There was no pericardial effusion.
[2024-04-22] MEDS: PANTOPRAZOLE 40 MG/10 ML VIAL INJ IV SCH (09:25)
[2024-04-22] MEDS: ASPirin 81 mg TAB PO SCH (09:26)
[2024-04-22] MEDS: MICAFUNGIN SODIUM 100 MG in SODIUM CHL 0.9% 100 ML IV SCH (09:26)
[2024-04-22] MEDS ORDERED: HEPARIN DRIP/D5W 100UNITS/ML 250 ML IV SCH (09:45)
--- NOTE | 2024-04-22 12:30 | DVHPN2 ---
Progress Note Date Seen: Apr 22, 2024 Has the PT tested + for MRSA If YES, has PT been informed?: No Medical Necessity Reason Pt with a Central, PICC or Fol: Yes The following are medically ne: Central Line, Whipple Catheter Reason for whipple catheter: Strict I&O Subjective Review of Systems: RESPIRATORY:Abnormal Other Systems: Patient seen and examined by myself today in follow-up Patient remained intubated on ventilator Objective vital signs Vital Sign Date Time Temp Pulse Resp B/P (MAP) Pulse Ox O2 Delivery O2 Flow Rate FiO2 04/22/24 11:30 98.4 77 20 114/61 (78) 96 209.1 04/22/24 10:14 30 04/22/24 10:00 Mechanical Ventilator+ Total Intake and Output 04/21/24 04/21/24 04/22/24 15:00 23:00 07:00 Intake Total 450.752 ml 949.752 ml 907.564 ml Output Total 40 ml 125 ml Balance 450.752 ml 909.752 ml 782.564 ml medications Current Medications Medications Dose Ordered Sig/Destini Route Start Time Stop Time Status Last Admin Dose Admin Heparin Sodium/ Dextrose 250 ml @ 18 mls/hr [id number] IV 03/31/24 23:45 UNV Midazolam HCl 50 ml @ 1 mls/hr Q24H IV 04/01/24 01:30 04/22/24 09:38 11 MLS/HR Ondansetron HCl 4 mg Q4HP PRN IV 04/01/24 05:00 Albumin Human 100 ml @ 100 mls/hr KIRAN PRN IV 04/03/24 07:00 Norepinephrine Bitartrate 32 mg/ Sodium Chloride 250 ml @ 0.469 mls/ hr Q24H IV 04/04/24 06:30 04/21/24 05:54 6.094 MLS/HR Sodium Chloride 10 ml QSHIFT@ IV 04/09/24 22:00 04/22/24 09:33 10 ML Iron Sucrose 110 ml @ 110 mls/hr DAILY@1200 IV 04/10/24 12:00 Hold 04/19/24 13:25 110 MLS/HR Amiodarone HCl 200 mg Q12HR PO 04/10/24 22:00 UNV Amiodarone HCl 200 mg Q12HR PO 04/10/24 22:00 04/22/24 09:25 200 MG Nystatin 1 applic BID TOP 04/12/24 22:00 04/22/24 09:47 1 APPLIC Enoxaparin Sodium 40 mg DAILY SC 04/14/24 10:00 Hold 04/16/24 09:20 40 MG Albuterol 2.5 mg Q4HR NEB 04/16/24 18:00 04/22/24 10:14 2.5 MG Ipratropium [place] 0.5 mg Q4HR NEB 04/16/24 18:00 04/22/24 10:14 0.5 MG Budesonide 0.5 mg BID NEB 04/16/24 22:00 04/22/24 06:34 0.5 MG Fentanyl Citrate 250 ml @ 2.5 mls/hr Q24H IV 04/20/24 22:30 04/22/24 05:45 15 MLS/HR Aspirin 81 mg DAILY PO 04/22/24 10:00 04/22/24 09:26 81 MG Purified Water 200 ml Q6HR GT 04/21/24 18:00 04/22/24 06:03 200 ML Enteral Nutritional Formula 1,000 ml 30ML/HR GT 04/21/24 14:45 Piperacillin Sod/ Tazobactam Sod 100 ml @ 25 mls/hr Q8H IV 04/22/24 00:00 04/22/24 10:40 25 MLS/HR Micafungin Sodium 100 mg/Sodium Chloride 100 ml @ 100 mls/hr DAILY IV 04/22/24 10:00 04/22/24 09:26 100 MLS/HR Pantoprazole Sodium 40 mg DAILY IV 04/22/24 10:00 04/22/24 09:25 40 MG Examination: LUNGS:Normal, CVS:Normal, MSK:Abnormal laboratory and microbiology Laboratory Tests 04/22/24 03:05 Test 04/22/24 03:05 Range/Units Serum Glucose 131 H 74-106 mg/dL Microbiology Date/Time Source Procedure Growth Status 04/18/24 15:02 Sputum Gram Stain - Final Resulted 04/18/24 15:02 Sputum Respiratory Culture - Preliminary Resulted 04/18/24 10:50 Voided Urine Urine Culture - Final Yeast, not Arlet albicans Complete 04/18/24 09:20 Blood Blood Culture - Preliminary NO GROWTH AFTER 72 HOURS OF INCUBATION. Resulted 04/08/24 08:02 Thoracic Fluid Gram Stain - Final Complete 04/08/24 08:02 Thoracic Fluid Anaerobic Culture - Final Complete 04/08/24 08:02 Thoracic Fluid Aerobic Culture - Final Complete 04/01/24 11:19 Nose MRSA Screen - Final Complete Problem List/Assessment/Plan Problem List/Assessment/Plan Acute kidney injury due to ATN/hemodynamic from shock, status post intermittent hemodialysis Acute respiratory failure, intubated on ventilator NSTEMI septic shock empyema metabolic acidosis resolved b/l renal stones w/ hydronephrosis morbid obesity hyperkalemia, resolved Hypernatremia due to insensible water loss afib RVR Hypokalemia Recommendations Kidney function is slightly improving today Decreased urine output Bumex 0.5 milligram/hour IV Low-dose dopamine IV pressors for blood pressure support Strict I&Os IV antibiotics DC IV fluid KCL replacement free water down NG tube Urology consult We will continue to follow Plan discussed with: Other (Nurse) Dietary Evaluation Review Comments: 1) If GI is accessible consider Nepro 1.8 @ 30 ml/hr goal rate as tolerated with current rate of propofol on board. 2) If pt remains NPO >7 days consider TPN to meet at least 75% of estimated needs 3) If pt continues to receive HD, advance pt diet when medically feasible to a Renal Standard diet modified per [employer] recommendations 4) If HD is discontinued and GFR is within normal range, advance pt diet to a Regular diet, modified per S[employer] SALES CONS[employer]ANT recommendations 5)If HD is discontinued and GFR lies within STG 1-4, advance pt diet to a Renal Specific K2,lowphos,HECTOR,2gmNa,80gPro diet 6) If HD is discontinued and if GFR returns to normal levels then ALEXANDRA 1 pkt BID with meals may be considered to aid with wound healing 7) Continue current plan of care Expected Outcomes/Goals: 1) Pt to receive nutrition support within 7 days of NPO status 2) Pt labs to improve 3) Pt diet to advance 4) F/U in 2-3 days SWETA CHAND MD Apr 22, 2024 12:30
[2024-04-22] MEDS: DOPamine 1600MCG/ML D5W 250 ML IV SCH (12:59)
[2024-04-22] MEDS: BUMETANIDE INJECTION 12.5 MG in GIVE UN-DILUTED 0 ML IV SCH (13:45)
[2024-04-22] MEDS: HEPARIN SODIUM (PORCINE) 5000 UNITS/ML 1ML VIAL SC SCH (21:49)
[2024-04-23] VITALS (103 sets, daily range): BP systolic 87–145; BP diastolic 44–82; PULSE 86–104; RESP 18–26; TEMP 97.3–100.8; O2SAT 91–100
[2024-04-23 04:04] LABS: Basophils # (auto) 0.1 10 ^3/uL (0-0.2); Basophils % (auto) 0.9 % (0.0-2.0); Eosinophils # (auto) 0.5 10 ^3/uL (0-0.8); Monocytes # (auto) 0.8 10 ^3/uL (0-1.3); Nucleated Red Blood Cells % 0.1 %; Red Blood Cells 2.84 10^6/uL (4.0-5.20)
[2024-04-23 04:06] LABS: Eosinophils % (auto) 3.2 % (0.0-7.0); Hematocrit 25.6 % (36.0-46.0); Hemoglobin 8.2 g/dL (12.2-16.2); Lymphocytes # (auto) 1.3 10 ^3/uL (0.4-5.4); Lymphocytes % (auto) 8.2 % (10.0-50.0); Mean Corpuscular Hemoglobin 28.9 pg (28.0-32.0); Mean Corpuscular Volume 90.2 fL (80.0-100.0); Monocytes % (auto) 5.4 % (0.0-12.0); Neutrophils # (auto) 12.8 10 ^3/uL (1.6-8.6); Neutrophils % (auto) 82.3 % (37.0-80.0); Platelet Count (auto) 375 10^3/uL (140-450); White Blood Cell 15.6 10^3/uL (4.4-10.8)
[2024-04-23 04:07] LABS: Chloride 112 mmol/L (98-107); Potassium 3.9 mmol/L (3.5-5.1); Sodium 143 mmol/L (136-145)
[2024-04-23 04:08] LABS: Anion Gap 8 (5-15); Carbon Dioxide 23 mmol/L (20-31)
[2024-04-23 04:14] LABS: BUN/Creatinine Ratio 20.5 (10.0-20.0); Glucose 150 mg/dL (74-106); Red Cell Distribution Width 27.4 % (11.8-14.3)
[2024-04-23 04:17] LABS: Blood Urea Nitrogen 49 mg/dL (9-23)
--- NOTE | 2024-04-23 04:35 | DVH ---
CHEST RADIOGRAPH Indication:on vent Technique: Single frontal view of the chest was obtained Comparison: XY CHEST PORTABLE on DOS: 04/22/24, XY CHEST PORTABLE on DOS: 04/21/24, XY CHEST XRAY 1 V IEW on DOS: 04/19/24 FINDINGS: Lines and Tubes: The endotracheal tube terminates 4.3 cm above the mili. Right PICC and enteric tu be are unchanged in position. Lungs: Bilateral airspace disease. Pleura: Bilateral pleural effusions. No pneumothorax. Cardiomediastinal contours: Stable. Bones: No acute osseous abnormality. IMPRESSION: 1. Stable appearance of the chest. Unchanged position of the support lines and tubes.
[2024-04-23 07:10] LABS: Base Excess -4.4 mmol/L (-2.0-3.0)
--- NOTE | 2024-04-23 07:40 | DVHPN2 ---
Progress Note - Dictate Date Seen: Apr 23, 2024 Has the PT tested + for MRSA If YES, has PT been informed?: No Medical Necessity Reason Pt with a Central, PICC or Fol: Yes The following are medically ne: Central Line, Whipple Catheter Reason for whipple catheter: Strict I&O vital signs Vital Sign Date Time Temp Pulse Resp B/P (MAP) Pulse Ox O2 Delivery O2 Flow Rate FiO2 04/23/24 07:18 91 23 122/68 (86) 96 30 04/23/24 06:45 99.3 210.7 04/23/24 06:00 Mechanical Ventilator+ Total Intake and Output 04/22/24 04/22/24 04/23/24 15:00 23:00 07:00 Intake Total 527.936 ml 1192.576 ml 1246.754 ml Output Total 700 ml 1600 ml Balance 527.936 ml 492.576 ml -353.246 ml medications Current Medications Medications Dose Ordered Sig/Destini Route Start Time Stop Time Status Last Admin Dose Admin Heparin Sodium/ Dextrose 250 ml @ 18 mls/hr [id number] IV 03/31/24 23:45 UNV Midazolam HCl 50 ml @ 1 mls/hr Q24H IV 04/01/24 01:30 04/23/24 07:09 11 MLS/HR Ondansetron HCl 4 mg Q4HP PRN IV 04/01/24 05:00 Albumin Human 100 ml @ 100 mls/hr KIRAN PRN IV 04/03/24 07:00 Norepinephrine Bitartrate 32 mg/ Sodium Chloride 250 ml @ 0.469 mls/ hr Q24H IV 04/04/24 06:30 04/22/24 17:37 6.094 MLS/HR Sodium Chloride 10 ml QSHIFT@,22 IV 04/09/24 22:00 04/22/24 21:42 10 ML Iron Sucrose 110 ml @ 110 mls/hr DAILY@1200 IV 04/10/24 12:00 Hold 04/19/24 13:25 110 MLS/HR Amiodarone HCl 200 mg Q12HR PO 04/10/24 22:00 UNV Amiodarone HCl 200 mg Q12HR PO 04/10/24 22:00 04/22/24 21:51 200 MG Nystatin 1 applic BID TOP 04/12/24 22:00 04/22/24 21:48 1 APPLIC Albuterol 2.5 mg Q4HR NEB 04/16/24 18:00 04/23/24 07:17 2.5 MG Ipratropium Reading 0.5 mg Q4HR NEB 04/16/24 18:00 04/23/24 07:17 0.5 MG Budesonide 0.5 mg BID NEB 04/16/24 22:00 04/23/24 07:17 0.5 MG Fentanyl Citrate 250 ml @ 2.5 mls/hr Q24H IV 04/20/24 22:30 04/22/24 21:46 15 MLS/HR Aspirin 81 mg DAILY PO 04/22/24 10:00 04/22/24 09:26 81 MG Purified Water 200 ml Q6HR GT 04/21/24 18:00 04/23/24 06:06 200 ML Enteral Nutritional Formula 1,000 ml 30ML/HR GT 04/21/24 14:45 Piperacillin Sod/ Tazobactam Sod 100 ml @ 25 mls/hr Q8H IV 04/22/24 00:00 04/23/24 07:10 25 MLS/HR Micafungin Sodium 100 mg/Sodium Chloride 100 ml @ 100 mls/hr DAILY IV 04/22/24 10:00 04/22/24 09:26 100 MLS/HR Pantoprazole Sodium 40 mg DAILY IV 04/22/24 10:00 04/22/24 09:25 40 MG Bumetanide 12.5 mg/Miscellaneous 50 ml @ 2 mls/hr Q24H IV 04/22/24 12:30 04/22/24 23:55 2 MLS/HR Dopamine HCl/ Dextrose 250 ml @ 9.728 mls/ hr Q24H IV 04/22/24 12:30 04/22/24 12:59 9.728 MLS/HR Heparin Sodium (Porcine) 5,000 units Q12HR SC 04/22/24 22:00 Hold 04/22/24 21:49 5,000 UNITS laboratory and microbiology Laboratory Tests 04/23/24 03:30 Test 04/23/24 03:30 Range/Units Serum Glucose 150 H 74-106 mg/dL Assessment/Plan There was question about EKG showing STEMI. Patient was intubated again by primary team and taken to [facility]. s/p Cardiac cath Was found to have OIL SPOT WASHER of mid LAD (considered old) with full of thrombus. s/p balloon angioplasty with minimal / partial result s/p thoracoscopy and chest tube placement Patient is a 68-year-old female who was transferred from [facility]. She originally presented to [facility] for shortness of breath ongoing for few days. She is intubated and is being managed in ICU. Information was obtained by reviewing the chart and communicating with staff. Reportedly, she presented with respiratory failure to [facility] (oxygen saturation was 88%) and over there was found to have white blood cell count of 26.6, hemoglobin of 11.1, creatinine of 5.6, potassium of 5.6 and troponin of 1.01. She was given 365 mg of aspirin in [facility]. She did have an episode of atrial fibrillation with RVR with questionable ST changes and was transferred to our facility for further care. She was also found to have right pleural effusion in [facility] and was diagnosed with non-STEMI. Intubated, on vent support. Obese. Mucosa is pale. Scattered rhonchi in the lungs is heard. Cardiac: Regular, no thrill/gallop. Abdomen is soft with increased bowel sounds. There is no gross mass. Extremities reveal 1+ edema bilaterally. Available past medical history includes obesity and questionable history of psoriasis. WBC: 25.3 - 23.7 - 20.2 - 20.5 - 17.6 - 18.4 - 19.2 - 19.4 - 22.2 - 16.4 - 16.1 - 19.5 - 14.7 - 12.3 - 9.8 - 10.0 - 8.3 - 9.2 - 10.2 - 11.4 - 10.3 - 12.0 - 13.8 - 16.3 - 18.0 - 18.2 - 16.6 - 15.6 Hemoglobin: 10.8 - 9.1 - 8.5 - 8.4 - 8.8 - 8.6 - 8.9 - 8.1 - 8.4 - 8.1 - 8.1 - 8.2 - 8.0 - 7.4 - 7.4 - 7.7 - 7.1 - 8.0 - 7.5 - 8.8 - 7.1 - 9.0 - 8.9 - 9.0 - 8.4 - 8.4 - 8.4 - 8.1 - 8.2 D-dimer: 3.62 Creatinine: 5.67 - 5.78 - 5.41 - 4.92 - 4.55 - 4.68 - 4.71 - 4.64 - 4.48 - 3.83 - 3.66 - 3.65 - 3.25 - 2.82 - 2.41 - 2.34 - 2.01 - 1.90 - 1.60 - 1.83 - 1.73 - 1.74 - 1.76 - 1.78 - 1.82 - 1.94 - 1.99 - 1.93 - 1.95 - 2.39 Potassium: 6.0 - 6.3 - 6.1 - 6.0 - 5.3 - 5.0 - 4.9 - 4.8 - 5.1 - 5.4 - 4.9 - 5.3 - 4.8 - 4.5 - 4.7 - 4.3 - 4.2 - 3.9 - 4.6 - 3.8 - 3.5 - 3.3 - 3.6 - 3.6 - 4.0 - 3.5 - 4.0 - 3.7 - 3.6 - 3.5 - 3.4 - 4.0 - 3.9 Lactic acid: 3.3 - 3.4 - 2.3 - 2.5 - 2.5 - 2.7 - 2.4 - 2.5 - 3.1 - 2.3 - 1.7 - 1.7 TSH: 1.71 BNP: 274.69 - 1944.81 - 373.79 Troponin (high sensitive): 3729 - 2261 - 1770 - 9340 - 275 - 0774 Blood culture: positive Pleural fluid culture: E-coli Digoxin level: 2.09 Stool OB: positive Chest x-ray revealed: IMPRESSION: 1. Moderate right pleural effusion. 2. Cardiomegaly with mild pulmonary vascular congestion bilaterally. Repeat chest x-ray revealed: IMPRESSION: 1. Endotracheal tube and gastric tubes in place as described. 2. Right IJ central venous catheter projects over the lower SVC. 3. Mild cardiomegaly and prominence of the pulmonary vasculature. 4. Moderate to large right pleural effusion. Repeat chest x-ray revealed: IMPRESSION: Similar lung aeration with large right pleural effusion. No pneumothorax seen. Stable lines and tubes. Repeat chest x-ray revealed: IMPRESSION: Similar lung aeration with large right pleural effusion. No pneumothorax seen. Stable lines and tubes. Repeat chest xry revealed: Lines and tubes: ET in the mid thoracic trachea. NG crosses midline. Right CVC is stable. Left HD catheter projects over the mediastinum. Cardiomediastinal silhouette: Enlarged Pulmonary vasculature: prominent Lung expansion: low Lung airspace: patchy bilateral airspace opacity. Lung interstitium: normal Pleura: Similar large right effusion. Pneumothorax: no Bones: Unremarkable Other: no IMPRESSION: Lines and tubes, as above. Similar lung aeration bilaterally with a right pleural effusion and patchy airspace opacities. Repeat chest xry revealed: IMPRESSION: 1. Stable position of the support lines and tubes. 2. Interstitial and alveolar opacities. Repeat chest xry revealed: IMPRESSION: Unchanged multifocal airspace disease. Small to moderate right pleural effusion ; possibly loculated. Repeat chest xry revealed: IMPRESSION: Lines and tubes in satisfactory position. No significant interval change. Repeat chest xry revealed: IMPRESSION: 1. Support lines and tubes in appropriate position. 2. Pulmonary vascular congestion. 3. Bilateral pleural effusions, right greater than left. Repeat chest xry revealed: IMPRESSION: 1. Support lines and tubes in appropriate position. 2. Pulmonary vascular congestion. 3. Bilateral pleural effusions, right greater than left. Repeat chest xry revealed: IMPRESSION: Interval placement of right chest tube which projects deep into the right hilar region. Repeat chest xry revealed: IMPRESSION: No interval change Repeat chest xry revealed: Findings/IMPRESSION: Right IJ CVC terminating in the SVC. Endotracheal tube projected 5 cm superior to the mili. Enteric tube projected below the GE junction. Right-sided PICC projects terminating near the cavoatrial junction. Small bilateral pleural effusions and/or atelectasis with superimposed infection not excluded. Repeat chest xry revealed: MPRESSION: 1. Bilateral pleural effusions and airspace disease right greater than left. Repeat chest xry revealed: IMPRESSION: 1. Endotracheal tube terminates 6.0 cm above the mili, previously 3.1 cm above the mili. Otherwise, No significant interval change. Repeat chest xry revealed: IMPRESSION: 1. Endotracheal tube terminates 6.0 cm above the mili, previously 3.1 cm above the mili. Otherwise, No significant interval change. Repeat chest xry revealed: IMPRESSION: Lines and tubes in satisfactory position. No significant interval change. Repeat chest xry revealed: IMPRESSION: Lines and tubes in satisfactory position. No significant interval change. Repeat chest xry revealed: IMPRESSION: Lines and tubes in satisfactory position. No significant interval change. Repeat chest xry revealed: IMPRESSION: Lines and tubes in satisfactory position. No significant interval change. Repeat chest xry revealed: IMPRESSION: Endotracheal tube projects in appropriate position. Otherwise no significant change Repeat chest xry revealed: FINDINGS: Lines and Tubes: Right PICC and enteric catheter and right chest tube in satisfactory position. Endotracheal tube projects 3.8 cm above the level of the mili. Lungs: Bibasilar opacities. Pleura: Possible small right pleural effusion. No pneumothorax. Cardiomediastinal contours: Unremarkable Bones: Unremarkable IMPRESSION: No significant change compared to prior exam. Repeat chest xry revealed: IMPRESSION: Lines and tubes in satisfactory position. No significant interval change. Repeat chest xry revealed: IMPRESSION: 1. Bibasilar opacities representing pleural effusions and airspace disease similar to prior study. 2. Satisfactory position of the support lines and tubes. Repeat chest xry revealed: IMPRESSION: 1. Stable appearance of the chest. Unchanged position of the support lines and tubes. Renal ultrasound revealed: IMPRESSION: 1. Right kidney measures 13.4 cm. Decreased cortical thickness on the right. 2. Left kidney measures 10.2 cm. 3. No hydronephrosis on the right grade 1 hydronephrosis on the left. 4. Bilateral renal calculi. CT scan of the chest/abdomen and pelvis revealed: IMPRESSION: 1. Moderate partially loculated right pleural effusion and consolidations in the right middle and lower lobes which could be pneumonia and/or atelectasis. 2. Mild cardiomegaly, mild interstitial pulmonary edema, and body wall edema. 3. There is a 1.9 cm calculus in the right UPJ with mild right hydronephrosis 4. There is a 2.6 cm somewhat staghorn appearing calculus in the left renal pelvis and UPJ causing mild predominantly mid to lower pole left hydronephrosis. Mild soft tissue stranding about the left renal pelvis which could be due to obstruction or superimposed infection. Correlate with urinalysis. 5. Partial duplication of the left renal collecting system without hydronephrosis in the upper pole. 6. Moderate right perinephric, right retroperitoneal, and bilateral extraperitoneal pelvis low-density fluid and very mild left retroperitoneal low-density fluid. This could be fluid related to bilateral renal obstructions and forniceal ruptures versus evolved retroperitoneal hematoma. This is suboptimally evaluated without intravenous contrast. 7. Fluid-filled small and large bowel loops which may be physiologic or related to enterocolitis and could be manifesting as loose stools and/or diarrhea. 8. Prominent endometrium measuring at least 2.8 cm, suboptimally evaluated by CT. Recommend characterization with nonemergent pelvic ultrasound if clinically indicated. 9. Mild hepatosplenomegaly. 10. Moderate three-vessel calcified coronary artery disease and mild aortic valve calcification. 11. Right IJ central venous catheter in place terminating in the low SVC. 12. Small soft tissue stranding in the right supraclavicular neck which could be blood products. 13. Endotracheal tube terminates above the mili. Repeat CT of chest / abdomen and pelvis revealed: IMPRESSION: 1. Moderate intermediate density right perinephric fluid extending into the bilateral extrarenal pelvis and also to a lesser extent in the peritoneal cavity, which could reflect retroperitoneal hematoma. Evaluation for active bleeding limited on this examination. 2. Moderate partially loculated right pleural effusion with a right thoracostomy tube terminating in the anterior medial right upper lobe. 3. Development of a small amount of air in the right pleural space at the level of the right middle lobe concordant with pneumothorax. 4. Bilateral renal calculi with a staghorn appearing calculus on the left. 5. Dependent consolidations of the [id number]-left lower lobes which could reflect atelectasis and/or pneumonia (which can be on the basis of aspiration. 6. Mild cardiomegaly, mild aortic valve calcifications and moderate coronary artery calcifications. Mild Interstitial pulmonary edema. CT of the head revealed: IMPRESSION: 1. No acute intracranial abnormality. 2. Generalized cerebral volume loss and mild chronic microvascular ischemic change. 3. Partially imaged endotracheal tube. Chest ultrasound revealed: Findings/Impression: There is a trace bilateral pleural effusion. Thoracentesis: FINDINGS: Moderate size, complex and septated right pleural effusion. Aspirated fluid is thick and green in consistency. IMPRESSION: Right thoracentesis with 250 mL removed for laboratory analysis. EKG in [facility] revealed sinus tachycardia, poor R-wave progression old inferior wall W[place]. later EKG revealed atrial fibrillation with RVR. Repeat EKGs questioned STEMI. but resolved later. Telemetry reveals sinus rhythm, occasions of A-fib with RVR, SVT Echocardiogram revealed: Technically limited study secondary to poor acoustic windows. Left ventricle: Left ventricle was normal-sized. Mild concentric left ventricular hypertrophy was seen. LVEF was 55-60%. No gross wall motion abnormality was observed, but its presence can not be ruled out on the basis of this study. Right ventricle is mildly dilated with normal systolic function. Left atrium was mildly dilated. Right atrium was normal-sized. Aortic valve was trileaflet. There was no aortic insufficiency. There was aortic sclerosis with no stenosis. There was trivial mitral/tricuspid regurgitation. Pulmonary valve was not well visualized. Right ventricular systolic pressure was assessed around 48 mm Hg. There was no pericardial effusion. Left heart cath revealed: One-vessel coronary artery disease, OIL SPOT WASHER of mid LAD, Attempted to open up the LAD OIL SPOT WASHER, partially/minimally successful (status post balloon angioplasty). LVEF of 25% (dilated LV). Cardiac suggestion for management: Dual antiplatelet therapy (loaded with aspirin and Plavix). Guideline directed medical therapy for systolic heart failure Repeat echo revealed: Technically limited study secondary to poor acoustic windows. Left ventricle: Concentric left ventricular hypertrophy was seen anteroapical hypokinesia was seen. The LVEF was around 40%. Right ventricular was normal sized with normal systolic function. Atria were not well-visualized. Aortic valve: Aortic valve was not well visualized. There was no aortic stenosis/insufficiency. Mild mitral/tricuspid regurgitation was observed. Pulmonary valve was not well visualized. Right ventricular systolic pressure was assessed around 35 mm Hg. There was no pericardial effusion. Patient is a 68-year-old morbidly obese patient who presented with respiratory failure to the hospital. Presentation is in favor of sepsis/septic shock. Multiorgan failure is observed. She is intubated and on vent support. She is on multiple pressor support. Life findings are in favor of acute renal failure. She also is known to have nephrolithiasis with history of staghorn calculi. Cardiac-ceballos, the patient did have episode of atrial fibrillation with RVR. She is found to have increased troponin. Presentation questions non-STEMI and possibly type 2 ischemia. Recognizing the presentation, ischemic workup should be postponed after clinical stability (only if patient recovers higher brain function). Is being followed by Nephrology. Had episodes of tachyarrhythmia. Loaded with Digoxin. Positive cultures. Repeated a-fib with RVR. Was evaluated by Interventional Cardiology customer resolution specialist for STEMI (not considered STEMI). As there was repeated EKG changes in favor of STEMI, patient was taken to cardiac cath technologist: Was found to have OIL SPOT WASHER of mid LAD (considered old) with full of thrombus. s/p balloon angioplasty with minimal / partial result Septic shock Multiorgan failure Acute respiratory failure on vent support Acute renal failure Nephrolithiasis Staghorn calculi Hydronephrosis Abnormal troponin, non-STEMI Atrial fibrillation with RVR Paroxysmal AFib Acute heart failure, diastolic Hepatosplenomegaly Pleural effusion Status post thoracentesis Morbid obesity s/p Cardioversion for A-fib with RVR s/p thoracoscopy and chest tube placement CAD: OIL SPOT WASHER of mid LAD (considered old) with full of thrombus. s/p balloon angioplasty with minimal / partial result Cardiac suggestion for management: Manage in ICU Follow-up electrolytes and kidney function tests and correct abnormalities Pressure support to keep mean arterial pressure above 65 Amiodarone oral/O mg BID Daily aspirin (81 mg daily) s/p thoracoscopy and chest tube placement IV metoprolol PRN for a-fib with RVR episodes. Sepsis workup and management as per primary team Evaluation and management of respiratory failure as per primary team/Pulmonary Evaluation and management of nephrolithiasis/hydronephrosis as per primary/Urology Evaluation and management of acute renal failure as per Nephrology Further evaluation and management as per above and clinical course. A total of 75 minutes was spent reviewing the patient record, examining the patient, making a diagnostic and therapeutic plan, discussing this plan with medical personnel, following up on diagnostic studies and following the patient for clinical stability excluding any and all procedures. At least 50% of this time was spent in direct, [id number] contact. Thank you for allowing me to participate in this patient's care. Further recommendations will depend on patient's clinical course. Please do not hesitate to contact me if you have any questions or concerns. This medical document was created using electronic medical record system with [employer] dictation system. Although this document has been carefully reviewed, there may still be some phonetic and typographical errors. These areas are purely typographical due to the imperfection of the software programs, and do not reflect any compromise in the patient's medical care. Dietary Evaluation Review Comments: 1) If GI is accessible consider Nepro 1.8 @ 30 ml/hr goal rate as tolerated with current rate of propofol on board. 2) If pt remains NPO >7 days consider TPN to meet at least 75% of estimated needs 3) If pt continues to receive HD, advance pt diet when medically feasible to a Renal Standard diet modified per [employer] recommendations 4) If HD is discontinued and GFR is within normal range, advance pt diet to a Regular diet, modified per [employer] recommendations 5)If HD is discontinued and GFR lies within STG 1-4, advance pt diet to a Renal Specific K2,lowphos,HECTOR,2gmNa,80gPro diet 6) If HD is discontinued and if GFR returns to normal levels then ALEXANDRA 1 pkt BID with meals may be considered to aid with wound healing 7) Continue current plan of care Expected Outcomes/Goals: 1) Pt to receive nutrition support within 7 days of NPO status 2) Pt labs to improve 3) Pt diet to advance 4) F/U in 2-3 days Plan discussed with: Other (nurse) HERMINIO JOHNSON MD Apr 23, 2024 07:40
[2024-04-23 10:28] LABS: INR 1.04 (0.9-1.15); Partial Thromboplastin Time 24.7 SEC (24.5-34.5)
[2024-04-23] MEDS ORDERED: fentaNYL CITRATE 100 MCG/2 ML VL ONE (11:12)
[2024-04-23] MEDS ORDERED: ROCURONIUM 10MG/ML 10ML VIAL IV ONE (11:55)
--- NOTE | 2024-04-23 11:59 | DVHPN2 ---
Progress Note Date Seen: Apr 23, 2024 Has the PT tested + for MRSA If YES, has PT been informed?: No Medical Necessity Reason Pt with a Central, PICC or Fol: Yes The following are medically ne: Central Line, Whipple Catheter Reason for whipple catheter: Strict I&O Subjective Review of Systems: RESPIRATORY:Abnormal Other Systems: Patient seen and examined by myself today in follow-up Patient remained intubated on ventilator Objective vital signs Vital Sign Date Time Temp Pulse Resp B/P (MAP) Pulse Ox O2 Delivery O2 Flow Rate FiO2 04/23/24 11:30 99.1 91 23 109/60 (76) 95 210.4 04/23/24 10:47 30 04/23/24 10:00 Mechanical Ventilator+ Total Intake and Output 04/22/24 04/22/24 04/23/24 15:00 23:00 07:00 Intake Total 527.936 ml 1192.576 ml 1290.576 ml Output Total 700 ml 1600 ml Balance 527.936 ml 492.576 ml -309.424 ml medications Current Medications Medications Dose Ordered Sig/Destini Route Start Time Stop Time Status Last Admin Dose Admin Heparin Sodium/ Dextrose 250 ml @ 18 mls/hr [id number] IV 03/31/24 23:45 UNV Midazolam HCl 50 ml @ 1 mls/hr Q24H IV 04/01/24 01:30 04/23/24 11:13 11 MLS/HR Ondansetron HCl 4 mg Q4HP PRN IV 04/01/24 05:00 Albumin Human 100 ml @ 100 mls/hr KIRAN PRN IV 04/03/24 07:00 Norepinephrine Bitartrate 32 mg/ Sodium Chloride 250 ml @ 0.469 mls/ hr Q24H IV 04/04/24 06:30 04/22/24 17:37 6.094 MLS/HR Sodium Chloride 10 ml QSHIFT@ IV 04/09/24 22:00 04/23/24 09:25 10 ML Iron Sucrose 110 ml @ 110 mls/hr DAILY@1200 IV 04/10/24 12:00 Hold 04/19/24 13:25 110 MLS/HR Amiodarone HCl 200 mg Q12HR PO 04/10/24 22:00 UNV Amiodarone HCl 200 mg Q12HR PO 04/10/24 22:00 04/23/24 09:24 200 MG Nystatin 1 applic BID TOP 04/12/24 22:00 04/23/24 09:25 1 APPLIC Albuterol 2.5 mg Q4HR NEB 04/16/24 18:00 04/23/24 10:21 2.5 MG Ipratropium [place] 0.5 mg Q4HR NEB 04/16/24 18:00 04/23/24 10:21 0.5 MG Budesonide 0.5 mg BID NEB 04/16/24 22:00 04/23/24 07:17 0.5 MG Fentanyl Citrate 250 ml @ 2.5 mls/hr Q24H IV 04/20/24 22:30 04/22/24 21:46 15 MLS/HR Aspirin 81 mg DAILY PO 04/22/24 10:00 04/23/24 09:25 81 MG Enteral Nutritional Formula 1,000 ml 30ML/HR GT 04/21/24 14:45 Piperacillin Sod/ Tazobactam Sod 100 ml @ 25 mls/hr Q8H IV 04/22/24 00:00 04/23/24 07:10 25 MLS/HR Micafungin Sodium 100 mg/Sodium Chloride 100 ml @ 100 mls/hr DAILY IV 04/22/24 10:00 04/23/24 09:25 100 MLS/HR Pantoprazole Sodium 40 mg DAILY IV 04/22/24 10:00 04/23/24 09:24 40 MG Bumetanide 12.5 mg/Miscellaneous 50 ml @ 2 mls/hr Q24H IV 04/22/24 12:30 04/22/24 23:55 2 MLS/HR Dopamine HCl/ Dextrose 250 ml @ 9.728 mls/ hr Q24H IV 04/22/24 12:30 04/22/24 12:59 9.728 MLS/HR Heparin Sodium (Porcine) 5,000 units Q12HR SC 04/22/24 22:00 Hold 04/22/24 21:49 5,000 UNITS Examination: LUNGS:Normal, CVS:Normal, MSK:Normal laboratory and microbiology Laboratory Tests 04/23/24 03:30 Test 04/23/24 03:30 Range/Units Serum Glucose 150 H 74-106 mg/dL Microbiology Date/Time Source Procedure Growth Status 04/18/24 15:02 Sputum Gram Stain - Final Resulted 04/18/24 15:02 Sputum Respiratory Culture - Preliminary Resulted 04/18/24 10:50 Voided Urine Urine Culture - Final Yeast, not Arlet albicans Complete 04/18/24 09:20 Blood Blood Culture - Final NO GROWTH AFTER 5 DAYS OF INCUBATION. Complete 04/08/24 08:02 Thoracic Fluid Gram Stain - Final Complete 04/08/24 08:02 Thoracic Fluid Anaerobic Culture - Final Complete 04/08/24 08:02 Thoracic Fluid Aerobic Culture - Final Complete 04/01/24 11:19 Nose MRSA Screen - Final Complete Problem List/Assessment/Plan Problem List/Assessment/Plan Acute kidney injury due to ATN/hemodynamic from shock, status post intermittent hemodialysis Acute respiratory failure, intubated on ventilator NSTEMI septic shock empyema metabolic acidosis resolved b/l renal stones w/ hydronephrosis morbid obesity hyperkalemia, resolved Hypernatremia due to insensible water loss afib RVR Hypokalemia Recommendations Kidney function slightly worsened today Increased urine output Bumex 0.5 milligram/hour IV Low-dose dopamine Add Albumin 25% IV piggyback IV pressors for blood pressure support Strict I&Os IV antibiotics DC IV fluid KCL replacement free water down NG tube Urology consult We will continue to follow Plan discussed with: Other (Nurse) My Orders My Orders Orders - SWETA CHAND MD Procedure Category Date Status Time Give Un-Diluted PHA 04/22/24 In Process (Gi... W/Bumetanide 12:30 Dopamine 1600mcg/Ml PHA 04/22/24 In Process D5W 12:30 Albumin Ivpb PHA 04/23/24 Verified 12:00 Dietary Evaluation Review Comments: 1) If GI is accessible consider Nepro 1.8 @ 30 ml/hr goal rate as tolerated with current rate of propofol on board. 2) If pt remains NPO >7 days consider TPN to meet at least 75% of estimated needs 3) If pt continues to receive HD, advance pt diet when medically feasible to a Renal Standard diet modified per SENIOR SYSTEMS PROGRAMMER recommendations 4) If HD is discontinued and GFR is within normal range, advance pt diet to a Regular diet, modified per SENIOR SYSTEMS PROGRAMMER recommendations 5)If HD is discontinued and GFR lies within STG 1-4, advance pt diet to a Renal Specific K2,lowphos,HECTOR,2gmNa,80gPro diet 6) If HD is discontinued and if GFR returns to normal levels then ALEXANDRA 1 pkt BID with meals may be considered to aid with wound healing 7) Continue current plan of care Expected Outcomes/Goals: 1) Pt to receive nutrition support within 7 days of NPO status 2) Pt labs to improve 3) Pt diet to advance 4) F/U in 2-3 days SWETA CHAND MD Apr 23, 2024 11:59
--- NOTE | 2024-04-23 13:03 | DVH ---
CHEST RADIOGRAPH Indication:S/P TRACHEOSTOMY Technique: Single frontal view of the chest was obtained COMPARISON: XY CHEST XRAY 1 VIEW on DOS: 04/23/24, XY CHEST PORTABLE on DOS: 04/22/24, XY CHEST STEPHANY BLE on DOS: 04/21/24 FINDINGS: Lines and Tubes: - Tracheostomy in satisfactory position - Enteric catheter in satisfactory position - Right PICC (Peripherally Inserted Central Catheter) in satisfactory position - Right chest tube in satisfactory position Lungs: - Diffuse pulmonary vascular congestion Pleura: - Possible small bilateral pleural effusions Cardiomediastinal contours: - Unremarkable Bones: - Unremarkable IMPRESSION: Tracheostomy in satisfactory position. No other significant interval change.
[2024-04-23] MEDS: ALBUMIN 25% 100 ML IV SCH (14:29)
--- NOTE | 2024-04-23 15:02 | DVHOP ---
DATE OF SURGERY: 04/23/2024 PREOPERATIVE DIAGNOSIS: Ventilator-dependent respiratory failure. POSTOPERATIVE DIAGNOSIS: Ventilator-dependent respiratory failure. SURGEON: Juve Wade MD ANESTHESIA: General endotracheal. ANESTHESIOLOGIST: ____ . PROCEDURE: Tracheostomy. DESCRIPTION OF PROCEDURE: Under general anesthesia with the patient's skin prepped and draped, an anterior cervical incision was made. Tissue was divided with electrocautery down onto the anterior surface of the trachea. The thyroid was displaced superiorly. The patient's ____ gas was changed to room air in order to avoid airway fire. The tracheotomy was performed through the anterior surface in an H-shaped fashion. The segments of the cartilage held apart with an Allis forceps. A tracheotomy was dilated to accommodate a size 8 tracheostomy cuffed tube and nonfenestrated tracheostomy tube size 8 was inserted through the tracheotomy was advanced into its final position. Once reaching its final position, it was secured with insufflation of its cuff with approximately 7 mL of air. There was immediate return of CO2 capture and returned to normal gas exchange. The bridge of the tracheostomy tube was secured to the cervical skin with interrupted Prolene sutures and circumferential umbilical tape. The remained in unchanged condition at the termination of the procedure, left the operating room following an accurate needle and sponge count. Her daughter, Aileen, was thoroughly informed on the phone at [phone]. Juve Wade MD PF TID: [id number] RECEIPT: [id number]
--- NOTE | 2024-04-23 20:24 | DVHPNRES ---
Progress Note Date Seen: Apr 23, 2024 Resident Creating Document: JUAN VAZQUEZ RESIDENT Has the PT tested + for MRSA If YES, has PT been informed?: No Medical Necessity Reason Pt with a Central, PICC or Fol: Yes The following are medically ne: Central Line, Whipple Catheter Reason for whipple catheter: Strict I&O Subjective Review of Systems HPI: 68/female, past medical history: Unknown Patient is 68-year-old female who was brought to the hospital from [facility] for higher level of care. Patient was initially treated facility for shortness of breath and was transferred to our hospital. During initial ED evaluation patient found to be tachypneic with severe respiratory failure, atrial fibrillation. Initially patient required oxygenation via non- rebreather mask however patient intubated to protect airway. Patient started on IV antibiotic, requiring vasopressor and amiodarone drip initially. With further evaluation chest ultrasound showed bilateral pleural effusion, CT scan of chest and abdomen was performed which showed partially loculated right pleural effusion and consolidation in right middle and lower lobe. Patient also found to have right hydronephrosis with 1.9 cm calculus into right UPJ. Radiologist performed right-sided thoracentesis which removed 250 mL of fluid. L patient was placed with right-sided chest tube for loculated empyema. Patient underwent right thoracoscopy with evacuation empyema with insertion of chest tube. Patient was extubated on April 16/2024. Patient was reintubated back given possible STEMI and transferred to left heart catheterization. Senior Application Security Consultant did angioplasty for complete total occlusion of mid LAD. Started on heparin drip, aspirin and Plavix. Patient continued to have x-ray findings with right lower lobe opacity. Continued on antibiotic. Continued require vasopressors, chest type continued to drain. No air leak. ROS: Not obtained as patient is intubated Ventilatory settings: Respiratory rate 18, tidal volume 500, FiO2 30%, peep 5 cm H2O Urine Input/output: Positive balance 700 mL, 75 mL urine output in last 12 hours during last night Overnight event: None Labs, micro, imaging/study Abnormal labs: Trending WBC count high . 12> 13.8> 16.3>18>18.2>16.6 Micro: Urine culture growing yeast, respiratory culture growing yeast Today patient was seen and examined at bedside. Patient underwent tracheostomy insertion. Patient continued on requiring two vasopressors, Bumex drip, IV antibiotic. Urine output increasing compared to last year after starting of Bumex drip. No night event notified from night nurse. Objective vital signs Vital Sign Date Time Temp Pulse Resp B/P (MAP) Pulse Ox O2 Delivery O2 Flow Rate FiO2 04/23/24 18:45 89 22 130/77 (94) 100 04/23/24 18:44 30 04/23/24 18:00 Mechanical Ventilator+ 04/23/24 16:00 98.6 98.6 Total Intake and Output 04/22/24 04/22/24 04/23/24 15:00 23:00 07:00 Intake Total 527.936 ml 1192.576 ml 1290.576 ml Output Total 700 ml 1600 ml Balance 527.936 ml 492.576 ml -309.424 ml medications Current Medications Medications Dose Ordered Sig/Destini Route Start Time Stop Time Status Last Admin Dose Admin Heparin Sodium/ Dextrose 250 ml @ 18 mls/hr [id number] IV 03/31/24 23:45 UNV Midazolam HCl 50 ml @ 1 mls/hr Q24H IV 04/01/24 01:30 04/23/24 15:26 11 MLS/HR Ondansetron HCl 4 mg Q4HP PRN IV 04/01/24 05:00 Albumin Human 100 ml @ 100 mls/hr KIRAN PRN IV 04/03/24 07:00 Norepinephrine Bitartrate 32 mg/ Sodium Chloride 250 ml @ 0.469 mls/ hr Q24H IV 04/04/24 06:30 04/22/24 17:37 6.094 MLS/HR Sodium Chloride 10 ml QSHIFT@ IV 04/09/24 22:00 04/23/24 09:25 10 ML Iron Sucrose 110 ml @ 110 mls/hr DAILY@1200 IV 04/10/24 12:00 Hold 04/19/24 13:25 110 MLS/HR Amiodarone HCl 200 mg Q12HR PO 04/10/24 22:00 UNV Amiodarone HCl 200 mg Q12HR PO 04/10/24 22:00 04/23/24 09:24 200 MG Nystatin 1 applic BID TOP 04/12/24 22:00 04/23/24 09:25 1 APPLIC Albuterol 2.5 mg Q4HR NEB 04/16/24 18:00 04/23/24 18:42 2.5 MG Ipratropium [place] 0.5 mg Q4HR NEB 04/16/24 18:00 04/23/24 18:42 0.5 MG Budesonide 0.5 mg BID NEB 04/16/24 22:00 04/23/24 07:17 0.5 MG Fentanyl Citrate 250 ml @ 2.5 mls/hr Q24H IV 04/20/24 22:30 04/23/24 12:45 15 MLS/HR Aspirin 81 mg DAILY PO 04/22/24 10:00 04/23/24 09:25 81 MG Enteral Nutritional Formula 1,000 ml 30ML/HR GT 04/21/24 14:45 Piperacillin Sod/ Tazobactam Sod 100 ml @ 25 mls/hr Q8H IV 04/22/24 00:00 04/23/24 15:47 25 MLS/HR Micafungin Sodium 100 mg/Sodium Chloride 100 ml @ 100 mls/hr DAILY IV 04/22/24 10:00 04/23/24 09:25 100 MLS/HR Pantoprazole Sodium 40 mg DAILY IV 04/22/24 10:00 04/23/24 09:24 40 MG Bumetanide 12.5 mg/Miscellaneous 50 ml @ 2 mls/hr Q24H IV 04/22/24 12:30 04/22/24 23:55 2 MLS/HR Dopamine HCl/ Dextrose 250 ml @ 9.728 mls/ hr Q24H IV 04/22/24 12:30 04/23/24 12:43 9.728 MLS/HR Heparin Sodium (Porcine) 5,000 units Q12HR SC 04/22/24 22:00 Hold 04/22/24 21:49 5,000 UNITS Albumin Human 100 ml @ 100 mls/hr Q8H IV 04/23/24 12:00 04/24/24 04:59 04/23/24 14:29 100 MLS/HR Examination General: Patient is intubated and sedated. HEENT: Normocephalic, atraumatic, moist mucous membranes Respiratory/pulmonary: There are no breath sounds audible in the right lung base and diminished breath sounds on the left lung as well. Cardiovascular: Heart rate and rhythm is oscillating significantly from sinus rhythm to AFib rate controlled to AFib with RVR. No murmurs at this time. Abdomen: Abdomen slightly distended, there is no pain to palpation in any of the abdominal quadrants, no palpable masses. Extremities: There is minimal swelling in the lower extremities bilaterally. Peripheral Pulses: 3+ Radial (R). 3+ Radial (L). 3+ Dorsalis pedis (R). 3+ Dorsalis pedis(L) Skin: There is dry skin in bilateral lower extremities with scales and excoriations. Neurological: Sedated, RASS - laboratory and microbiology Laboratory Tests 04/23/24 03:30 Test 04/23/24 03:30 Range/Units Serum Glucose 150 H 74-106 mg/dL Microbiology Date/Time Source Procedure Growth Status 04/22/24 18:03 Urine - Whipple [place] Urine Culture - Preliminary Resulted 04/22/24 15:16 Blood Blood Culture - Preliminary NO GROWTH AFTER 24 HOURS OF INCUBATION. Resulted 04/18/24 15:02 Sputum Gram Stain - Final Complete 04/18/24 15:02 Respiratory Culture - Final Yeast, not Arlet albicans Complete 04/08/24 08:02 Thoracic Fluid Gram Stain - Final Complete 04/08/24 08:02 Thoracic Fluid Anaerobic Culture - Final Complete 04/08/24 08:02 Thoracic Fluid Aerobic Culture - Final Complete 04/01/24 11:19 Nose MRSA Screen - Final Complete Problem List/Assessment/Plan Problem List/Assessment/Plan Neurology Sedation -currently on midazolam and fentanyl Respiratory Acute hypoxic respirtory failure likel due to right-sided pleural effusion/empyema and consolidation on right middle and lower lobe -on mechanical ventilation: Respiratory rate 16, tidal volume 500, FiO2 30%, peep 5 cm H2O -presence of chest tube: Minimal drainage, no air leak. -chest x-ray on 04/22/2022: Right-sided pleural effusion, right lower lobe opacification. -IV antibiotic with Zosyn plus micafungin -CT of the chest and abdomen showed moderate partial loculated right pleural effusion and consolidation on right middle/lower lobes. Mild cardiomegaly and interstitial pulmonary edema. It also showed right hydronephrosis with 1.9 cm calculus into the right UPJ. There is also a 2.6 cm staghorn appearing calculus causing mid to lower pole left hydronephrosis. -Respiratory culture: Yeast, not Arlet on 04/17/2024. Repeat culture pending. -CT chest(04/22/24):1. Moderate intermediate density right perinephric fluid extending into the bilateral extrarenal pelvis and also to a lesser extent in the peritoneal cavity, which could reflect retroperitoneal hematoma. Evaluation for active bleeding limited on this examination. 2. Moderate partially loculated right pleural effusion with a right thoracostomy tube terminating in the anterior medial right upper lobe. 3. Development of a small amount of air in the right pleural space at the level of the right middle lobe concordant with pneumothorax. 4. Bilateral renal calculi with a staghorn appearing calculus on the left. 5. Dependent consolidations of the hfgft-gqkyiho-cuya-left lower lobes which could reflect atelectasis and/or pneumonia (which can be on the basis of aspiration. 6. Mild cardiomegaly, mild aortic valve calcifications and moderate coronary artery calcifications. Mild Interstitial pulmonary edema. -radiology consultation for right loculated effusion drainage/tube placement pending Septic shock in the setting of loculated right-sided pleural effusion and pneumonia -continue management of acute respiratory failure likely due to empyema. -vasopressor with norepinephrine 30 microgram/minute. - continue micafungin and zosyn -started Bumex 1 mg IV Once daily -Respiratory culture positive for yeast on 04/17/2024. -Repeat blood culture pending S/P Tracheostomy (04/23/24) Cardiology Acute on chronic systolic/diastolic heart failure -Continue bumex drip -echocardiogram is showing an LVEF of 55-60% with increased RVSP at 48 mmHg and no pericardial effusion NSTEMI type II likely due to above -continue current management. Atrial fibrilation with RVR: Rate controlled -stop heparin drip -continue amiodarone 200 mg p.o. b.i.d. Nephrology Hypernatremia resolved - Discontinue free water 200 mL q.6 via G-tube -repeat sodium level in a.m. Bilateral hydronephrosis with left-sided staghorn calculi and right UVJ calculi -CT scan of the chest and abdomen showed right hydronephrosis with 1.9 cm calculus into the right UPJ, there was also a 2.6 cm staghorn appearing calculus causing mid to lower pole left hydronephrosis. -nephrology on board -drainage with Whipple catheter. -continue I/O monitoring CHRISTOPH due to VMN initially likely in setting of septic shock: Resolved -most likely secondary to bilateral renal calculi -nephrology and urology on board -monitor kidney function -resume Bumex Drip Hypokalemia -replenish Nutrition Nepro 30 mL/hour via G-tube. Lines: Right upper arm PICC line: Placed on 04/09/2024 PUD prophylaxis: Protonix DVT prophylaxis: Heparin drip Goals of care discussed with the daughter and brother at bedside for >31min by Dr. Alin Dawson previously Critical time spent > 71 min Plan discussed with Dr. Jones Plan discussed with: Daughter, Other Dietary Evaluation Review Comments: 1) If GI is accessible consider Nepro 1.8 @ 30 ml/hr goal rate as tolerated with current rate of propofol on board. 2) If pt remains NPO >7 days consider TPN to meet at least 75% of estimated needs 3) If pt continues to receive HD, advance pt diet when medically feasible to a Renal Standard diet modified per CAR MANAGER recommendations 4) If HD is discontinued and GFR is within normal range, advance pt diet to a Regular diet, modified per CAR MANAGER recommendations 5)If HD is discontinued and GFR lies within STG 1-4, advance pt diet to a Renal Specific K2,lowphos,HECTOR,2gmNa,80gPro diet 6) If HD is discontinued and if GFR returns to normal levels then ALEXANDRA 1 pkt BID with meals may be considered to aid with wound healing 7) Continue current plan of care Expected Outcomes/Goals: 1) Pt to receive nutrition support within 7 days of NPO status 2) Pt labs to improve 3) Pt diet to advance 4) F/U in 2-3 days Date of Service: Apr 23, 2024 Billing Provider: LAURIE JONES MD Common Visit Codes: 55344-[id number] CARE 30-74 MIN JUAN VAZQUEZ Apr 23, 2024 20:24 LAURIE JONES MD Apr 24, 2024 11:30
[2024-04-24] VITALS (117 sets, daily range): BP systolic 86–138; BP diastolic 45–81; PULSE 66–95; RESP 18–86; TEMP 98.1–98.8; O2SAT 92–100
[2024-04-24 03:38] LABS: Basophils # (auto) 0.1 10 ^3/uL (0-0.2); Basophils % (auto) 0.7 % (0.0-2.0); Lymphocytes # (auto) 0.9 10 ^3/uL (0.4-5.4); White Blood Cell 11.7 10^3/uL (4.4-10.8)
[2024-04-24 03:42] LABS: Eosinophils # (auto) 0.4 10 ^3/uL (0-0.8); Eosinophils % (auto) 3.8 % (0.0-7.0); Hematocrit 24.7 % (36.0-46.0); Lymphocytes % (auto) 7.9 % (10.0-50.0); Mean Corpuscular Hemoglobin 28.5 pg (28.0-32.0); Mean Corpuscular Hgb Conc. 32.2 g/dL (32.0-36.0); Mean Corpuscular Volume 88.6 fL (80.0-100.0); Monocytes # (auto) 0.5 10 ^3/uL (0-1.3); Monocytes % (auto) 4.6 % (0.0-12.0); Neutrophils # (auto) 9.7 10 ^3/uL (1.6-8.6); Platelet Count (auto) 284 10^3/uL (140-450); Red Blood Cells 2.79 10^6/uL (4.0-5.20)
[2024-04-24 03:48] LABS: Anion Gap 10 (5-15); Carbon Dioxide 26 mmol/L (20-31); Chloride 111 mmol/L (98-107); Sodium 147 mmol/L (136-145)
[2024-04-24 03:49] LABS: Calcium 8.4 mg/dL (8.7-10.4)
[2024-04-24 03:54] LABS: BUN/Creatinine Ratio 20.6 (10.0-20.0); Blood Urea Nitrogen 43 mg/dL (9-23); Glucose 131 mg/dL (74-106)
[2024-04-24 03:56] LABS: Red Cell Distribution Width 28.6 % (11.8-14.3)
[2024-04-24 05:27] LABS: Anisocytosis Moderate; Platelet Estimate Adequate; Stomatocytes Few
--- NOTE | 2024-04-24 05:37 | DVH ---
CHEST RADIOGRAPH Indication:on vent Technique: Single frontal view of the chest was obtained Comparison: XY CHEST PORTABLE on DOS: 04/23/24 FINDINGS: Lines and Tubes: Tracheostomy tube is unchanged. Right chest tube, PICC and enteric tube are similar in position compared to prior study. Lungs: Pulmonary congestion. Patchy right mid to lower lung zone opacities. Pleura: Right pleural effusion. No pneumothorax. Cardiomediastinal contours: Unremarkable Bones: No acute osseous abnormality. IMPRESSION: 1. Stable pulmonary congestion, patchy right mid to lower lung zone opacities. 2. Stable position of the support lines and tubes.
[2024-04-24] MEDS ORDERED: POTASSIUM CHL 20MEQ/100ML 100 ML IV SCH (06:00)
[2024-04-24 07:02] LABS: Base Excess 0.4 mmol/L (-2.0-3.0)
[2024-04-24] MEDS: POTASSIUM CHL 20MEQ/100ML 100 ML IV SCH ×2 (07:03→14:15)
--- NOTE | 2024-04-24 07:42 | DVHPN2 ---
Progress Note - Dictate Date Seen: Apr 24, 2024 Has the PT tested + for MRSA If YES, has PT been informed?: No Medical Necessity Reason Pt with a Central, PICC or Fol: Yes The following are medically ne: Central Line, Whipple Catheter Reason for whipple catheter: Strict I&O vital signs Vital Sign Date Time Temp Pulse Resp B/P (MAP) Pulse Ox O2 Delivery O2 Flow Rate FiO2 04/24/24 07:30 91 23 110/58 (75) 95 30 04/24/24 06:00 Mechanical Ventilator+ 04/24/24 04:00 98.6 98.6 Total Intake and Output 04/23/24 04/23/24 04/24/24 15:00 23:00 07:00 Intake Total 650.107 ml 636.262 ml 696.063 ml Output Total 3075 ml 4850 ml Balance 650.107 ml -2438.738 ml -4153.937 ml medications Current Medications Medications Dose Ordered Sig/Destini Route Start Time Stop Time Status Last Admin Dose Admin Heparin Sodium/ Dextrose 250 ml @ 18 mls/hr [id number] IV 03/31/24 23:45 UNV Midazolam HCl 50 ml @ 1 mls/hr Q24H IV 04/01/24 01:30 04/24/24 04:53 11 MLS/HR Ondansetron HCl 4 mg Q4HP PRN IV 04/01/24 05:00 Albumin Human 100 ml @ 100 mls/hr KIRAN PRN IV 04/03/24 07:00 Norepinephrine Bitartrate 32 mg/ Sodium Chloride 250 ml @ 0.469 mls/ hr Q24H IV 04/04/24 06:30 04/22/24 17:37 6.094 MLS/HR Sodium Chloride 10 ml QSHIFT@10,22 IV 04/09/24 22:00 04/23/24 23:21 10 ML Iron Sucrose 110 ml @ 110 mls/hr DAILY@1200 IV 04/10/24 12:00 Hold 04/19/24 13:25 110 MLS/HR Amiodarone HCl 200 mg Q12HR PO 04/10/24 22:00 UNV Amiodarone HCl 200 mg Q12HR PO 04/10/24 22:00 04/23/24 23:22 200 MG Albuterol 2.5 mg Q4HR NEB 04/16/24 18:00 04/24/24 05:50 2.5 MG Ipratropium Cannon 0.5 mg Q4HR NEB 04/16/24 18:00 04/24/24 05:49 0.5 MG Budesonide 0.5 mg BID NEB 04/16/24 22:00 04/24/24 05:50 0.5 MG Fentanyl Citrate 250 ml @ 2.5 mls/hr Q24H IV 04/20/24 22:30 04/24/24 05:36 15 MLS/HR Aspirin 81 mg DAILY PO 04/22/24 10:00 04/23/24 09:25 81 MG Enteral Nutritional Formula 1,000 ml 30ML/HR GT 04/21/24 14:45 Piperacillin Sod/ Tazobactam Sod 100 ml @ 25 mls/hr Q8H IV 04/22/24 00:00 04/23/24 23:34 25 MLS/HR Micafungin Sodium 100 mg/Sodium Chloride 100 ml @ 100 mls/hr DAILY IV 04/22/24 10:00 04/23/24 09:25 100 MLS/HR Pantoprazole Sodium 40 mg DAILY IV 04/22/24 10:00 04/23/24 09:24 40 MG Bumetanide 12.5 mg/Miscellaneous 50 ml @ 2 mls/hr Q24H IV 04/22/24 12:30 04/24/24 01:53 2 MLS/HR Dopamine HCl/ Dextrose 250 ml @ 9.728 mls/ hr Q24H IV 04/22/24 12:30 04/23/24 12:43 9.728 MLS/HR Heparin Sodium (Porcine) 5,000 units Q12HR SC 04/22/24 22:00 04/23/24 23:22 5,000 UNITS Potassium Chloride 100 ml @ 50 mls/hr Q2H IV 04/24/24 07:00 04/24/24 10:59 04/24/24 07:03 50 MLS/HR laboratory and microbiology Laboratory Tests 04/24/24 03:11 Test 04/24/24 03:11 Range/Units Serum Glucose 131 H 74-106 mg/dL Assessment/Plan s/p tracheostomy. Still on Levophed There was question about EKG showing STEMI. Patient was intubated again by primary team and taken to Vehicle Service Attendant. 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 s/p balloon angioplasty with minimal / partial result s/p thoracoscopy and chest tube placement Patient is a 68-year-old female who was transferred from [facility]. She originally presented to [facility] for shortness of breath ongoing for few days. She is intubated and is being managed in ICU. Information was obtained by reviewing the chart and communicating with staff. Reportedly, she presented with respiratory failure to [facility] (oxygen saturation was 88%) and over there was found to have white blood cell count of 26.6, hemoglobin of 11.1, creatinine of 5.6, potassium of 5.6 and troponin of 1.01. She was given 365 mg of aspirin in [facility]. She did have an episode of atrial fibrillation with RVR with questionable ST changes and was transferred to our facility for further care. She was also found to have right pleural effusion in [facility] and was diagnosed with non-STEMI. Intubated, on vent support. Obese. Mucosa is pale. Scattered rhonchi in the lungs is heard. Cardiac: Regular, no thrill/gallop. Abdomen is soft with increased bowel sounds. There is no gross mass. Extremities reveal 1+ edema bilaterally. Available past medical history includes obesity and questionable history of psoriasis. WBC: 25.3 - 23.7 - 20.2 - 20.5 - 17.6 - 18.4 - 19.2 - 19.4 - 22.2 - 16.4 - 16.1 - 19.5 - 14.7 - 12.3 - 9.8 - 10.0 - 8.3 - 9.2 - 10.2 - 11.4 - 10.3 - 12.0 - 13.8 - 16.3 - 18.0 - 18.2 - 16.6 - 15.6 - 11.7 Hemoglobin: 10.8 - 9.1 - 8.5 - 8.4 - 8.8 - 8.6 - 8.9 - 8.1 - 8.4 - 8.1 - 8.1 - 8.2 - 8.0 - 7.4 - 7.4 - 7.7 - 7.1 - 8.0 - 7.5 - 8.8 - 7.1 - 9.0 - 8.9 - 9.0 - 8.4 - 8.4 - 8.4 - 8.1 - 8.2 - 8.0 D-dimer: 3.62 Creatinine: 5.67 - 5.78 - 5.41 - 4.92 - 4.55 - 4.68 - 4.71 - 4.64 - 4.48 - 3.83 - 3.66 - 3.65 - 3.25 - 2.82 - 2.41 - 2.34 - 2.01 - 1.90 - 1.60 - 1.83 - 1.73 - 1.74 - 1.76 - 1.78 - 1.82 - 1.94 - 1.99 - 1.93 - 1.95 - 2.39- 2.09 Potassium: 6.0 - 6.3 - 6.1 - 6.0 - 5.3 - 5.0 - 4.9 - 4.8 - 5.1 - 5.4 - 4.9 - 5.3 - 4.8 - 4.5 - 4.7 - 4.3 - 4.2 - 3.9 - 4.6 - 3.8 - 3.5 - 3.3 - 3.6 - 3.6 - 4.0 - 3.5 - 4.0 - 3.7 - 3.6 - 3.5 - 3.4 - 4.0 - 3.9 - 3.0 Lactic acid: 3.3 - 3.4 - 2.3 - 2.5 - 2.5 - 2.7 - 2.4 - 2.5 - 3.1 - 2.3 - 1.7 - 1.7 TSH: 1.71 BNP: 274.69 - 1944.81 - 373.79 Troponin (high sensitive): 8180 - 2753 - 1597 - 3237 - 957 - 3683 Blood culture: positive Pleural fluid culture: E-coli Digoxin level: 2.09 Stool OB: positive Chest x-ray revealed: IMPRESSION: 1. Moderate right pleural effusion. 2. Cardiomegaly with mild pulmonary vascular congestion bilaterally. Repeat chest x-ray revealed: IMPRESSION: 1. Endotracheal tube and gastric tubes in place as described. 2. Right IJ central venous catheter projects over the lower SVC. 3. Mild cardiomegaly and prominence of the pulmonary vasculature. 4. Moderate to large right pleural effusion. Repeat chest x-ray revealed: IMPRESSION: Similar lung aeration with large right pleural effusion. No pneumothorax seen. Stable lines and tubes. Repeat chest x-ray revealed: IMPRESSION: Similar lung aeration with large right pleural effusion. No pneumothorax seen. Stable lines and tubes. Repeat chest xry revealed: Lines and tubes: ET in the mid thoracic trachea. NG crosses midline. Right CVC is stable. Left HD catheter projects over the mediastinum. Cardiomediastinal silhouette: Enlarged Pulmonary vasculature: prominent Lung expansion: low Lung airspace: patchy bilateral airspace opacity. Lung interstitium: normal Pleura: Similar large right effusion. Pneumothorax: no Bones: Unremarkable Other: no IMPRESSION: Lines and tubes, as above. Similar lung aeration bilaterally with a right pleural effusion and patchy airspace opacities. Repeat chest xry revealed: IMPRESSION: 1. Stable position of the support lines and tubes. 2. Interstitial and alveolar opacities. Repeat chest xry revealed: IMPRESSION: Unchanged multifocal airspace disease. Small to moderate right pleural effusion ; possibly loculated. Repeat chest xry revealed: IMPRESSION: Lines and tubes in satisfactory position. No significant interval change. Repeat chest xry revealed: IMPRESSION: 1. Support lines and tubes in appropriate position. 2. Pulmonary vascular congestion. 3. Bilateral pleural effusions, right greater than left. Repeat chest xry revealed: IMPRESSION: 1. Support lines and tubes in appropriate position. 2. Pulmonary vascular congestion. 3. Bilateral pleural effusions, right greater than left. Repeat chest xry revealed: IMPRESSION: Interval placement of right chest tube which projects deep into the right hilar region. Repeat chest xry revealed: IMPRESSION: No interval change Repeat chest xry revealed: Findings/IMPRESSION: Right IJ CVC terminating in the SVC. Endotracheal tube projected 5 cm superior to the mili. Enteric tube projected below the GE junction. Right-sided PICC projects terminating near the cavoatrial junction. Small bilateral pleural effusions and/or atelectasis with superimposed infection not excluded. Repeat chest xry revealed: MPRESSION: 1. Bilateral pleural effusions and airspace disease right greater than left. Repeat chest xry revealed: IMPRESSION: 1. Endotracheal tube terminates 6.0 cm above the mili, previously 3.1 cm above the mili. Otherwise, No significant interval change. Repeat chest xry revealed: IMPRESSION: 1. Endotracheal tube terminates 6.0 cm above the mili, previously 3.1 cm above the mili. Otherwise, No significant interval change. Repeat chest xry revealed: IMPRESSION: Lines and tubes in satisfactory position. No significant interval change. Repeat chest xry revealed: IMPRESSION: Lines and tubes in satisfactory position. No significant interval change. Repeat chest xry revealed: IMPRESSION: Lines and tubes in satisfactory position. No significant interval change. Repeat chest xry revealed: IMPRESSION: Lines and tubes in satisfactory position. No significant interval change. Repeat chest xry revealed: IMPRESSION: Endotracheal tube projects in appropriate position. Otherwise no significant change Repeat chest xry revealed: FINDINGS: Lines and Tubes: Right PICC and enteric catheter and right chest tube in satisfactory position. Endotracheal tube projects 3.8 cm above the level of the mili. Lungs: Bibasilar opacities. Pleura: Possible small right pleural effusion. No pneumothorax. Cardiomediastinal contours: Unremarkable Bones: Unremarkable IMPRESSION: No significant change compared to prior exam. Repeat chest xry revealed: IMPRESSION: Lines and tubes in satisfactory position. No significant interval change. Repeat chest xry revealed: IMPRESSION: 1. Bibasilar opacities representing pleural effusions and airspace disease similar to prior study. 2. Satisfactory position of the support lines and tubes. Repeat chest xry revealed: IMPRESSION: 1. Stable appearance of the chest. Unchanged position of the support lines and tubes. Repeat chest xry revealed: Lines and Tubes: - Tracheostomy in satisfactory position - Enteric catheter in satisfactory position - Right PICC (Peripherally Inserted Central Catheter) in satisfactory position - Right chest tube in satisfactory position Lungs: - Diffuse pulmonary vascular congestion Pleura: - Possible small bilateral pleural effusions Cardiomediastinal contours: - Unremarkable Bones: Unremarkable IMPRESSION: Tracheostomy in satisfactory position. No other significant interval change. Repeat chest xry revealed: IMPRESSION: 1. Stable pulmonary congestion, patchy right mid to lower lung zone opacities. 2. Stable position of the support lines and tubes. Renal ultrasound revealed: IMPRESSION: 1. Right kidney measures 13.4 cm. Decreased cortical thickness on the right. 2. Left kidney measures 10.2 cm. 3. No hydronephrosis on the right grade 1 hydronephrosis on the left. 4. Bilateral renal calculi. CT scan of the chest/abdomen and pelvis revealed: IMPRESSION: 1. Moderate partially loculated right pleural effusion and consolidations in the right middle and lower lobes which could be pneumonia and/or atelectasis. 2. Mild cardiomegaly, mild interstitial pulmonary edema, and body wall edema. 3. There is a 1.9 cm calculus in the right UPJ with mild right hydronephrosis 4. There is a 2.6 cm somewhat staghorn appearing calculus in the left renal pelvis and UPJ causing mild predominantly mid to lower pole left hydronephrosis. Mild soft tissue stranding about the left renal pelvis which could be due to obstruction or superimposed infection. Correlate with urinalysis. 5. Partial duplication of the left renal collecting system without hydronephrosis in the upper pole. 6. Moderate right perinephric, right retroperitoneal, and bilateral extraperitoneal pelvis low-density fluid and very mild left retroperitoneal low-density fluid. This could be fluid related to bilateral renal obstructions and forniceal ruptures versus evolved retroperitoneal hematoma. This is suboptimally evaluated without intravenous contrast. 7. Fluid-filled small and large bowel loops which may be physiologic or related to enterocolitis and could be manifesting as loose stools and/or diarrhea. 8. Prominent endometrium measuring at least 2.8 cm, suboptimally evaluated by CT. Recommend characterization with nonemergent pelvic ultrasound if clinically indicated. 9. Mild hepatosplenomegaly. 10. Moderate three-vessel calcified coronary artery disease and mild aortic valve calcification. 11. Right IJ central venous catheter in place terminating in the low SVC. 12. Small soft tissue stranding in the right supraclavicular neck which could be blood products. 13. Endotracheal tube terminates above the mili. Repeat CT of chest / abdomen and pelvis revealed: IMPRESSION: 1. Moderate intermediate density right perinephric fluid extending into the bilateral extrarenal pelvis and also to a lesser extent in the peritoneal cavity, which could reflect retroperitoneal hematoma. Evaluation for active bleeding limited on this examination. 2. Moderate partially loculated right pleural effusion with a right thoracostomy tube terminating in the anterior medial right upper lobe. 3. Development of a small amount of air in the right pleural space at the level of the right middle lobe concordant with pneumothorax. 4. Bilateral renal calculi with a staghorn appearing calculus on the left. 5. Dependent consolidations of the [id number]-left lower lobes which could reflect atelectasis and/or pneumonia (which can be on the basis of aspiration. 6. Mild cardiomegaly, mild aortic valve calcifications and moderate coronary artery calcifications. Mild Interstitial pulmonary edema. CT of the head revealed: IMPRESSION: 1. No acute intracranial abnormality. 2. Generalized cerebral volume loss and mild chronic microvascular ischemic change. 3. Partially imaged endotracheal tube. Chest ultrasound revealed: Findings/Impression: There is a trace bilateral pleural effusion. Thoracentesis: FINDINGS: Moderate size, complex and septated right pleural effusion. Aspirated fluid is thick and green in consistency. IMPRESSION: Right thoracentesis with 250 mL removed for laboratory analysis. EKG in [facility] revealed sinus tachycardia, poor R-wave progression old inferior wall OR. later EKG revealed atrial fibrillation with RVR. Repeat EKGs questioned STEMI. but resolved later. Telemetry reveals sinus rhythm, occasions of A-fib with RVR, SVT Echocardiogram revealed: Technically limited study secondary to poor acoustic windows. Left ventricle: Left ventricle was normal-sized. Mild concentric left ventricular hypertrophy was seen. LVEF was 55-60%. No gross wall motion abnormality was observed, but its presence can not be ruled out on the basis of this study. Right ventricle is mildly dilated with normal systolic function. Left atrium was mildly dilated. Right atrium was normal-sized. Aortic valve was trileaflet. There was no aortic insufficiency. There was aortic sclerosis with no stenosis. There was trivial mitral/tricuspid regurgitation. Pulmonary valve was not well visualized. Right ventricular systolic pressure was assessed around 48 mm Hg. There was no pericardial effusion. Left heart cath revealed: One-vessel coronary artery disease, CAR REPAIRER APPRENTICE of mid LAD, Attempted to open up the LAD CAR REPAIRER APPRENTICE, partially/minimally successful (status post balloon angioplasty). LVEF of 25% (dilated LV). Cardiac suggestion for management: Dual antiplatelet therapy (loaded with aspirin and Plavix). Guideline directed medical therapy for systolic heart failure Repeat echo revealed: Technically limited study secondary to poor acoustic windows. Left ventricle: Concentric left ventricular hypertrophy was seen anteroapical hypokinesia was seen. The LVEF was around 40%. Right ventricular was normal sized with normal systolic function. Atria were not well-visualized. Aortic valve: Aortic valve was not well visualized. There was no aortic stenosis/insufficiency. Mild mitral/tricuspid regurgitation was observed. Pulmonary valve was not well visualized. Right ventricular systolic pressure was assessed around 35 mm Hg. There was no pericardial effusion. Patient is a 68-year-old morbidly obese patient who presented with respiratory failure to the hospital. Presentation is in favor of sepsis/septic shock. Multiorgan failure is observed. She is intubated and on vent support. She is on multiple pressor support. Life findings are in favor of acute renal failure. She also is known to have nephrolithiasis with history of staghorn calculi. Cardiac-ceballos, the patient did have episode of atrial fibrillation with RVR. She is found to have increased troponin. Presentation questions non-STEMI and possibly type 2 ischemia. Recognizing the presentation, ischemic workup should be postponed after clinical stability (only if patient recovers higher brain function). Is being followed by Nephrology. Had episodes of tachyarrhythmia. Loaded with Digoxin. Positive cultures. Repeated a-fib with RVR. Was evaluated by Interventional Cardiology tectonophysicist for STEMI (not considered STEMI). 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 s/p balloon angioplasty with minimal / partial result Septic shock Multiorgan failure Acute respiratory failure on vent support Acute renal failure Nephrolithiasis Staghorn calculi Hydronephrosis Abnormal troponin, non-STEMI Atrial fibrillation with RVR Paroxysmal AFib Acute heart failure, diastolic Hepatosplenomegaly Pleural effusion Status post thoracentesis Morbid obesity s/p Cardioversion for A-fib with RVR s/p thoracoscopy and chest tube placement CAD: CAR REPAIRER APPRENTICE of mid LAD (considered old) with full of thrombus. s/p balloon angioplasty with minimal / partial result s/p tracheostomy Cardiac suggestion for management: Manage in ICU Follow-up electrolytes and kidney function tests and correct abnormalities Pressure support to keep mean arterial pressure above 65 Amiodarone oral/O mg BID Daily aspirin (81 mg daily) s/p thoracoscopy and chest tube placement s/p tracheostomy IV metoprolol PRN for a-fib with RVR episodes. Sepsis workup and management as per primary team Evaluation and management of respiratory failure as per primary team/Pulmonary Evaluation and management of nephrolithiasis/hydronephrosis as per primary/Urology Evaluation and management of acute renal failure as per Nephrology Further evaluation and management as per above and clinical course. A total of 75 minutes was spent reviewing the patient record, examining the patient, making a diagnostic and therapeutic plan, discussing this plan with medical personnel, following up on diagnostic studies and following the patient for clinical stability excluding any and all procedures. At least 50% of this time was spent in direct, [id number] contact. Thank you for allowing me to participate in this patient's care. Further recommendations will depend on patient's clinical course. Please do not hesitate to contact me if you have any questions or concerns. This medical document was created using electronic medical record system with [employer] computerized dictation system. Although this document has been carefully reviewed, there may still be some phonetic and typographical errors. These areas are purely typographical due to the imperfection of the software programs, and do not reflect any compromise in the patient's medical care. Dietary Evaluation Review Comments: 1) If GI is accessible consider Nepro 1.8 @ 30 ml/hr goal rate as tolerated with current rate of propofol on board. 2) If pt remains NPO >7 days consider TPN to meet at least 75% of estimated needs 3) If pt continues to receive HD, advance pt diet when medically feasible to a Renal Standard diet modified per MORTUARY TECHNICIAN recommendations 4) If HD is discontinued and GFR is within normal range, advance pt diet to a Regular diet, modified per MORTUARY TECHNICIAN recommendations 5)If HD is discontinued and GFR lies within STG 1-4, advance pt diet to a Renal Specific K2,lowphos,HECTOR,2gmNa,80gPro diet 6) If HD is discontinued and if GFR returns to normal levels then ALEXANDRA 1 pkt BID with meals may be considered to aid with wound healing 7) Continue current plan of care Expected Outcomes/Goals: 1) Pt to receive nutrition support within 7 days of NPO status 2) Pt labs to improve 3) Pt diet to advance 4) F/U in 2-3 days Plan discussed with: Other (nurse) HERMINIO JOHNSON MD Apr 24, 2024 07:42
--- NOTE | 2024-04-24 09:32 | DVHPNRES ---
Progress Note Date Seen: Apr 24, 2024 Resident Creating Document: JUAN VAZQUEZ RESIDENT Has the PT tested + for MRSA If YES, has PT been informed?: No Medical Necessity Reason Pt with a Central, PICC or Fol: Yes The following are medically ne: Central Line, Whipple Catheter Reason for whipple catheter: Strict I&O Subjective Review of Systems HPI: 68/female, past medical history: Unknown Patient is 68-year-old female who was brought to the hospital from [facility] for higher level of care. Patient was initially treated facility for shortness of breath and was transferred to our hospital. During initial ED evaluation patient found to be tachypneic with severe respiratory failure, atrial fibrillation. Initially patient required oxygenation via non- rebreather mask however patient intubated to protect airway. Patient started on IV antibiotic, requiring vasopressor and amiodarone drip initially. With further evaluation chest ultrasound showed bilateral pleural effusion, CT scan of chest and abdomen was performed which showed partially loculated right pleural effusion and consolidation in right middle and lower lobe. Patient also found to have right hydronephrosis with 1.9 cm calculus into right UPJ. Radiologist performed right-sided thoracentesis which removed 250 mL of fluid. L patient was placed with right-sided chest tube for loculated empyema. Patient underwent right thoracoscopy with evacuation empyema with insertion of chest tube. Patient was extubated on April 16/2024. Patient was reintubated back given possible STEMI and transferred to left heart catheterization. Hemmer Lockstitch did angioplasty for complete total occlusion of mid LAD. Started on heparin drip, aspirin and Plavix. Patient continued to have x-ray findings with right lower lobe opacity. Continued on antibiotic. Continued require vasopressors, chest type continued to drain. No air leak. ROS: Not obtained as patient is intubated Ventilatory settings: Respiratory rate 22, tidal volume 500, FiO2 30%, peep 5 cm H2O Urine Input/output: balance - 5898 mL, 75 mL urine output in last 12 hours during last night Overnight event: None Labs, micro, imaging/study Micro: Urine culture growing yeast, respiratory culture growing yeast Today patient was seen and examined at bedside. Patient underwent tracheostomy insertion yesterday. Patient continued on requiring vasopressors, IV antibiotic. Urine output increasing compared to last year after starting of Bumex drip. Stopped Bumex drip and dopamin given negative fluid balance. No night event notified from karate teacher. NO night event. ROS not obtain given sedated. Objective vital signs Vital Sign Date Time Temp Pulse Resp B/P (MAP) Pulse Ox O2 Delivery O2 Flow Rate FiO2 04/24/24 07:45 91 23 123/66 (85) 95 04/24/24 07:30 30 04/24/24 06:00 Mechanical Ventilator+ 04/24/24 04:00 98.6 98.6 Total Intake and Output 04/23/24 04/23/24 04/24/24 15:00 23:00 07:00 Intake Total 650.107 ml 636.262 ml 696.063 ml Output Total 3075 ml 4850 ml Balance 650.107 ml -2438.738 ml -4153.937 ml medications Current Medications Medications Dose Ordered Sig/Destini Route Start Time Stop Time Status Last Admin Dose Admin Heparin Sodium/ Dextrose 250 ml @ 18 mls/hr [id number] IV 03/31/24 23:45 UNV Midazolam HCl 50 ml @ 1 mls/hr Q24H IV 04/01/24 01:30 04/24/24 07:36 11 MLS/HR Ondansetron HCl 4 mg Q4HP PRN IV 04/01/24 05:00 Albumin Human 100 ml @ 100 mls/hr KIRAN PRN IV 04/03/24 07:00 Norepinephrine Bitartrate 32 mg/ Sodium Chloride 250 ml @ 0.469 mls/ hr Q24H IV 04/04/24 06:30 04/22/24 17:37 6.094 MLS/HR Sodium Chloride 10 ml QSHIFT@ IV 04/09/24 22:00 04/23/24 23:21 10 ML Iron Sucrose 110 ml @ 110 mls/hr DAILY@1200 IV 04/10/24 12:00 Hold 04/19/24 13:25 110 MLS/HR Amiodarone HCl 200 mg Q12HR PO 04/10/24 22:00 UNV Amiodarone HCl 200 mg Q12HR PO 04/10/24 22:00 04/23/24 23:22 200 MG Albuterol 2.5 mg Q4HR NEB 04/16/24 18:00 04/24/24 05:50 2.5 MG Ipratropium [place] 0.5 mg Q4HR NEB 04/16/24 18:00 04/24/24 05:49 0.5 MG Budesonide 0.5 mg BID NEB 04/16/24 22:00 04/24/24 05:50 0.5 MG Fentanyl Citrate 250 ml @ 2.5 mls/hr Q24H IV 04/20/24 22:30 04/24/24 05:36 15 MLS/HR Aspirin 81 mg DAILY PO 04/22/24 10:00 04/23/24 09:25 81 MG Enteral Nutritional Formula 1,000 ml 30ML/HR GT 04/21/24 14:45 Piperacillin Sod/ Tazobactam Sod 100 ml @ 25 mls/hr Q8H IV 04/22/24 00:00 04/24/24 07:45 25 MLS/HR Micafungin Sodium 100 mg/Sodium Chloride 100 ml @ 100 mls/hr DAILY IV 04/22/24 10:00 04/23/24 09:25 100 MLS/HR Pantoprazole Sodium 40 mg DAILY IV 04/22/24 10:00 04/23/24 09:24 40 MG Heparin Sodium (Porcine) 5,000 units Q12HR SC 04/22/24 22:00 04/23/24 23:22 5,000 UNITS Potassium Chloride 100 ml @ 50 mls/hr Q2H IV 04/24/24 07:00 04/24/24 10:59 04/24/24 08:53 50 MLS/HR Examination General: Patient is intubated and sedated. HEENT: Normocephalic, atraumatic, moist mucous membranes Respiratory/pulmonary: There are no breath sounds audible in the right lung base and diminished breath sounds on the left lung as well. Cardiovascular: Heart rate and rhythm is oscillating significantly from sinus rhythm to AFib rate controlled to AFib with RVR. No murmurs at this time. Abdomen: Abdomen slightly distended, there is no pain to palpation in any of the abdominal quadrants, no palpable masses. Extremities: There is minimal swelling in the lower extremities bilaterally. Peripheral Pulses: 3+ Radial (R). 3+ Radial (L). 3+ Dorsalis pedis (R). 3+ Dorsalis pedis(L) Skin: There is dry skin in bilateral lower extremities with scales and excoriations. Neurological: Sedated, RASS - laboratory and microbiology Laboratory Tests 04/24/24 03:11 Test 04/24/24 03:11 Range/Units Serum Glucose 131 H 74-106 mg/dL Microbiology Date/Time Source Procedure Growth Status 04/22/24 18:03 Urine - Whipple Port Urine Culture - Preliminary Resulted 04/22/24 15:16 Blood Blood Culture - Preliminary NO GROWTH AFTER 24 HOURS OF INCUBATION. Resulted 04/18/24 15:02 Sputum Gram Stain - Final Complete 04/18/24 15:02 Respiratory Culture - Final Yeast, not Arlet albicans Complete 04/08/24 08:02 Thoracic Fluid Gram Stain - Final Complete 04/08/24 08:02 Thoracic Fluid Anaerobic Culture - Final Complete 04/08/24 08:02 Thoracic Fluid Aerobic Culture - Final Complete 04/01/24 11:19 Nose MRSA Screen - Final Complete Problem List/Assessment/Plan Problem List/Assessment/Plan Neurology Sedation -currently on midazolam and fentanyl Respiratory Acute hypoxic respirtory failure likel due to right-sided pleural effusion/empyema and consolidation on right middle and lower lobe -on mechanical ventilation: Respiratory rate 16, tidal volume 500, FiO2 30%, peep 5 cm H2O -presence of chest tube: Minimal drainage, no air leak. -chest x-ray on 04/22/2022: Right-sided pleural effusion, right lower lobe opacification. -IV antibiotic with Zosyn plus micafungin -CT of the chest and abdomen showed moderate partial loculated right pleural effusion and consolidation on right middle/lower lobes. Mild cardiomegaly and interstitial pulmonary edema. It also showed right hydronephrosis with 1.9 cm calculus into the right UPJ. There is also a 2.6 cm staghorn appearing calculus causing mid to lower pole left hydronephrosis. -Respiratory culture: Yeast, not Arlte on 04/17/2024. Repeat culture pending. -CT chest(04/22/24):1. Moderate intermediate density right perinephric fluid extending into the bilateral extrarenal pelvis and also to a lesser extent in the peritoneal cavity, which could reflect retroperitoneal hematoma. Evaluation for active bleeding limited on this examination. 2. Moderate partially loculated right pleural effusion with a right thoracostomy tube terminating in the anterior medial right upper lobe. 3. Development of a small amount of air in the right pleural space at the level of the right middle lobe concordant with pneumothorax. 4. Bilateral renal calculi with a staghorn appearing calculus on the left. 5. Dependent consolidations of the ageqq-ogckwrp-lyxw-left lower lobes which could reflect atelectasis and/or pneumonia (which can be on the basis of aspiration. 6. Mild cardiomegaly, mild aortic valve calcifications and moderate coronary artery calcifications. Mild Interstitial pulmonary edema. -radiology consultation for right loculated effusion drainage/tube placement pending -Underwent tracheostomy (04/23/24) Septic shock in the setting of loculated right-sided pleural effusion and pneumonia -continue management of acute respiratory failure likely due to empyema. -vasopressor with norepinephrine 24 microgram/minute. - continue micafungin and zosyn -Respiratory culture positive for yeast on 04/17/2024. -Repeat blood culture pending -Stop bumex drip and Dopamin S/P Tracheostomy (04/23/24) Cardiology Acute on chronic systolic/diastolic heart failure -echocardiogram is showing an LVEF of 55-60% with increased RVSP at 48 mmHg and no pericardial effusion -Continue monitor I/O -repeat x ray In AM NSTEMI type II likely due to above -continue current management. Atrial fibrilation with RVR: Rate controlled -continue amiodarone 200 mg p.o. b.i.d. -heparin 5000 IU BID Nephrology Hypernatremia resolved - Discontinue free water 200 mL q.6 via G-tube -repeat sodium level in a.m. Bilateral hydronephrosis with left-sided staghorn calculi and right UVJ calculi -CT scan of the chest and abdomen showed right hydronephrosis with 1.9 cm calculus into the right UPJ, there was also a 2.6 cm staghorn appearing calculus causing mid to lower pole left hydronephrosis. -nephrology on board -drainage with Whipple catheter. -continue I/O monitoring CHRISTOPH due to VMN initially likely in setting of septic shock: Resolved -most likely secondary to bilateral renal calculi -nephrology and urology on board -monitor kidney function -Stop Bumex and dopamin Hypokalemia -replenish Nutrition Nepro 15 mL/hour via G-tube. Lines: Right upper arm PICC line: Placed on 04/09/2024 PUD prophylaxis: Protonix DVT prophylaxis: Heparin Goals of care discussed with the daughter and brother at bedside for >31min by Dr. Alin Dawson previously Critical time spent > 68 min Plan discussed with Dr. Jones Plan discussed with: Other (RN) My Orders My Orders Orders - JUAN VAZQUEZ RESIDENT Procedure Category Date Status Time Chest Xray 1 View XY 04/24/24 Resulted 04:00 Abg W/ Co-Ox RT 04/24/24 Logged 04:00 Potassium Chl PHA 04/24/24 In Process 20meq/100ml 07:00 Dietary Evaluation Review Comments: 1) If GI is accessible consider Nepro 1.8 @ 30 ml/hr goal rate as tolerated with current rate of propofol on board. 2) If pt remains NPO >7 days consider TPN to meet at least 75% of estimated needs 3) If pt continues to receive HD, advance pt diet when medically feasible to a Renal Standard diet modified per SENIOR RESEARCH ENGINEER recommendations 4) If HD is discontinued and GFR is within normal range, advance pt diet to a Regular diet, modified per SENIOR RESEARCH ENGINEER recommendations 5)If HD is discontinued and GFR lies within STG 1-4, advance pt diet to a Renal Specific K2,lowphos,HECTOR,2gmNa,80gPro diet 6) If HD is discontinued and if GFR returns to normal levels then ALEXANDRA 1 pkt BID with meals may be considered to aid with wound healing 7) Continue current plan of care Expected Outcomes/Goals: 1) Pt to receive nutrition support within 7 days of NPO status 2) Pt labs to improve 3) Pt diet to advance 4) F/U in 2-3 days Date of Service: Apr 24, 2024 Billing Provider: LAURIE JONES MD Common Visit Codes: [id number] CARE 30-74 MIN JUAN VAZQUEZ Apr 24, 2024 09:32 LAURIE JONES MD Apr 26, 2024 21:18
--- NOTE | 2024-04-24 11:26 | DVHPN2 ---
Progress Note Date Seen: Apr 24, 2024 Has the PT tested + for MRSA If YES, has PT been informed?: No Medical Necessity Reason Pt with a Central, PICC or Fol: Yes The following are medically ne: Central Line, Whipple Catheter Reason for whipple catheter: Strict I&O Subjective Patient reports: Other (intubated) Objective vital signs Vital Sign Date Time Temp Pulse Resp B/P (MAP) Pulse Ox O2 Delivery O2 Flow Rate FiO2 04/24/24 11:00 77 20 106/55 (72) 98 04/24/24 10:00 Mechanical Ventilator+ 30 30 04/24/24 08:00 98.2 98.2 Total Intake and Output 04/23/24 04/23/24 04/24/24 14:59 22:59 06:59 Intake Total 550.576 ml 738.137 ml 737.541 ml Output Total 3075 ml 4850 ml Balance 550.576 ml -2336.863 ml -4112.459 ml medications Current Medications Medications Dose Ordered Sig/Destini Route Start Time Stop Time Status Last Admin Dose Admin Heparin Sodium/ Dextrose 250 ml @ 18 mls/hr [id number] IV 03/31/24 23:45 UNV Midazolam HCl 50 ml @ 1 mls/hr Q24H IV 04/01/24 01:30 04/24/24 07:36 11 MLS/HR Ondansetron HCl 4 mg Q4HP PRN IV 04/01/24 05:00 Albumin Human 100 ml @ 100 mls/hr KIRAN PRN IV 04/03/24 07:00 Norepinephrine Bitartrate 32 mg/ Sodium Chloride 250 ml @ 0.469 mls/ hr Q24H IV 04/04/24 06:30 04/22/24 17:37 6.094 MLS/HR Sodium Chloride 10 ml QSHIFT@10,22 IV 04/09/24 22:00 04/24/24 10:18 10 ML Iron Sucrose 110 ml @ 110 mls/hr DAILY@1200 IV 04/10/24 12:00 Hold 04/19/24 13:25 110 MLS/HR Amiodarone HCl 200 mg Q12HR PO 04/10/24 22:00 UNV Amiodarone HCl 200 mg Q12HR PO 04/10/24 22:00 04/24/24 10:16 200 MG Albuterol 2.5 mg Q4HR NEB 04/16/24 18:00 04/24/24 10:08 2.5 MG Ipratropium [place] 0.5 mg Q4HR NEB 04/16/24 18:00 04/24/24 10:08 0.5 MG Budesonide 0.5 mg BID NEB 04/16/24 22:00 04/24/24 05:50 0.5 MG Fentanyl Citrate 250 ml @ 2.5 mls/hr Q24H IV 04/20/24 22:30 04/24/24 05:36 15 MLS/HR Aspirin 81 mg DAILY PO 04/22/24 10:00 04/24/24 10:16 81 MG Enteral Nutritional Formula 1,000 ml 30ML/HR GT 04/21/24 14:45 Piperacillin Sod/ Tazobactam Sod 100 ml @ 25 mls/hr Q8H IV 04/22/24 00:00 04/24/24 07:45 25 MLS/HR Micafungin Sodium 100 mg/Sodium Chloride 100 ml @ 100 mls/hr DAILY IV 04/22/24 10:00 04/24/24 10:17 100 MLS/HR Pantoprazole Sodium 40 mg DAILY IV 04/22/24 10:00 04/24/24 10:16 40 MG Heparin Sodium (Porcine) 5,000 units Q12HR SC 04/22/24 22:00 04/24/24 10:19 5,000 UNITS Examination: GENERAL:Abnormal, MSK:Abnormal, SKIN:Abnormal, NEURO:Abnormal laboratory and microbiology Laboratory Tests 04/24/24 03:11 Test 04/24/24 03:11 Range/Units Serum Glucose 131 H 74-106 mg/dL Microbiology Date/Time Source Procedure Growth Status 04/22/24 18:03 Urine - [place] Urine Culture - Preliminary Yeast, not Arlet albicans Resulted 04/22/24 15:16 Blood Blood Culture - Preliminary NO GROWTH AFTER 24 HOURS OF INCUBATION. Resulted 04/18/24 15:02 Sputum Gram Stain - Final Complete 04/18/24 15:02 Respiratory Culture - Final Yeast, not Arlet albicans Complete 04/08/24 08:02 Thoracic Fluid Gram Stain - Final Complete 04/08/24 08:02 Thoracic Fluid Anaerobic Culture - Final Complete 04/08/24 08:02 Thoracic Fluid Aerobic Culture - Final Complete 04/01/24 11:19 Nose MRSA Screen - Final Complete Problem List/Assessment/Plan Problem List/Assessment/Plan Acute kidney injury due to ATN/hemodynamic from shock, needed intermittent hemodialysis now off Acute respiratory failure, intubated on ventilator Right thoracoscopy, evacuation of empyema, insertion of chest tube on 04/08 NSTEMI septic shock empyema metabolic acidosis resolved b/l renal stones w/ hydronephrosis--possible staghorn morbid obesity s/p hyperkalemia afib RVR Hypernatremia Recommendations uop 7.9 L past 24 hrs bumex drip and dopamine were held --ok to hold for now on pressors k replace Plan discussed with: Other Dietary Evaluation Review Comments: 1) If GI is accessible consider Nepro 1.8 @ 30 ml/hr goal rate as tolerated with current rate of propofol on board. 2) If pt remains NPO >7 days consider TPN to meet at least 75% of estimated needs 3) If pt continues to receive HD, advance pt diet when medically feasible to a Renal Standard diet modified per RESIDENT SERVICES DIRECTOR recommendations 4) If HD is discontinued and GFR is within normal range, advance pt diet to a Regular diet, modified per RESIDENT SERVICES DIRECTOR recommendations 5)If HD is discontinued and GFR lies within STG 1-4, advance pt diet to a Renal Specific K2,lowphos,HECTOR,2gmNa,80gPro diet 6) If HD is discontinued and if GFR returns to normal levels then ALEXANDRA 1 pkt BID with meals may be considered to aid with wound healing 7) Continue current plan of care Expected Outcomes/Goals: 1) Pt to receive nutrition support within 7 days of NPO status 2) Pt labs to improve 3) Pt diet to advance 4) F/U in 2-3 days KAITLYN CENTENO MD Apr 24, 2024 11:26
[2024-04-24] MEDS: FREE WATER GT SCH (12:15)
[2024-04-25] VITALS (104 sets, daily range): BP systolic 102–138; BP diastolic 57–78; PULSE 62–82; RESP 13–25; TEMP 98.2–98.8; O2SAT 96–99
[2024-04-25 04:37] LABS: Eosinophils # (auto) 0.4 10 ^3/uL (0-0.8); Eosinophils % (auto) 4.4 % (0.0-7.0); Neutrophils # (auto) 7.8 10 ^3/uL (1.6-8.6); Nucleated Red Blood Cells % 0.1 %
[2024-04-25 04:38] LABS: Anion Gap 10 (5-15); Calcium 8.5 mg/dL (8.7-10.4); Carbon Dioxide 26 mmol/L (20-31); Chloride 111 mmol/L (98-107); Potassium 3.3 mmol/L (3.5-5.1); Sodium 147 mmol/L (136-145)
[2024-04-25 04:41] LABS: Basophils # (auto) 0.1 10 ^3/uL (0-0.2); Basophils % (auto) 0.8 % (0.0-2.0); Hematocrit 24.9 % (36.0-46.0); Lymphocytes % (auto) 10.3 % (10.0-50.0); Mean Corpuscular Hemoglobin 28.8 pg (28.0-32.0); Mean Corpuscular Volume 89.9 fL (80.0-100.0); Monocytes # (auto) 0.5 10 ^3/uL (0-1.3); Monocytes % (auto) 5.2 % (0.0-12.0); Neutrophils % (auto) 79.3 % (37.0-80.0); Platelet Count (auto) 266 10^3/uL (140-450); Red Blood Cells 2.77 10^6/uL (4.0-5.20); Red Cell Distribution Width 28.7 % (11.8-14.3); White Blood Cell 9.8 10^3/uL (4.4-10.8)
[2024-04-25 04:44] LABS: Blood Urea Nitrogen 38 mg/dL (9-23); Glucose 106 mg/dL (74-106)
--- NOTE | 2024-04-25 05:51 | DVH ---
CHEST RADIOGRAPH Indication:on vent Technique: Single frontal view of the chest was obtained COMPARISON: XY CHEST XRAY 1 VIEW on DOS: 04/24/24, XY CHEST PORTABLE on DOS: 04/23/24, XY CHEST XRAY 1 VIEW on DOS: 04/23/24 FINDINGS: Lines and Tubes: Tracheostomy, enteric catheter and right PICC and right chest tube in satisfactory p osition. Lungs: Congestion. Patchy right lower lobe airspace disease. Pleura: Small right pleural effusion. No pneumothorax. Cardiomediastinal contours: Cardiomegaly. Bones: Unremarkable IMPRESSION: Lines and tubes in satisfactory position. No significant interval change.
[2024-04-25 06:12] LABS: Anisocytosis Moderate; Platelet Estimate Adequate; Stomatocytes Few
[2024-04-25] MEDS: POTASSIUM CHL 20MEQ/100ML 100 ML IV ONE (06:17)
--- NOTE | 2024-04-25 06:17 | DVHPN2 ---
Progress Note - Dictate Date Seen: Apr 25, 2024 Has the PT tested + for MRSA If YES, has PT been informed?: No Medical Necessity Reason Pt with a Central, PICC or Fol: Yes The following are medically ne: Central Line, Whipple Catheter Reason for whipple catheter: Strict I&O vital signs Vital Sign Date Time Temp Pulse Resp B/P (MAP) Pulse Ox O2 Delivery O2 Flow Rate FiO2 04/25/24 06:00 64 04/25/24 06:00 18 98 Mechanical Ventilator+ 30 30 04/25/24 06:00 105/59 (74) 04/25/24 04:00 98.4 98.4 Total Intake and Output 04/24/24 04/24/24 04/25/24 15:00 23:00 07:00 Intake Total 434.720 ml 884.504 ml 244.065 ml Output Total 1900 ml Balance 434.720 ml -1015.496 ml 244.065 ml medications Current Medications Medications Dose Ordered Sig/Destini Route Start Time Stop Time Status Last Admin Dose Admin Heparin Sodium/ Dextrose 250 ml @ 18 mls/hr [id number] IV 03/31/24 23:45 UNV Midazolam HCl 50 ml @ 1 mls/hr Q24H IV 04/01/24 01:30 04/25/24 05:23 11 MLS/HR Ondansetron HCl 4 mg Q4HP PRN IV 04/01/24 05:00 Albumin Human 100 ml @ 100 mls/hr KIRAN PRN IV 04/03/24 07:00 Norepinephrine Bitartrate 32 mg/ Sodium Chloride 250 ml @ 0.469 mls/ hr Q24H IV 04/04/24 06:30 04/24/24 14:15 2.813 MLS/HR Sodium Chloride 10 ml QSHIFT@10,22 IV 04/09/24 22:00 04/24/24 21:37 10 ML Iron Sucrose 110 ml @ 110 mls/hr DAILY@1200 IV 04/10/24 12:00 Hold 04/19/24 13:25 110 MLS/HR Amiodarone HCl 200 mg Q12HR PO 04/10/24 22:00 UNV Amiodarone HCl 200 mg Q12HR PO 04/10/24 22:00 04/24/24 21:36 200 MG Albuterol 2.5 mg Q4HR NEB 10/16/24 18:00 04/25/24 06:13 2.5 MG Ipratropium Malcom 0.5 mg Q4HR NEB 04/16/24 18:00 04/25/24 06:13 0.5 MG Budesonide 0.5 mg BID NEB 04/16/24 22:00 04/25/24 06:13 0.5 MG Fentanyl Citrate 250 ml @ 2.5 mls/hr Q24H IV 04/20/24 22:30 04/24/24 19:44 15 MLS/HR Aspirin 81 mg DAILY PO 04/22/24 10:00 04/24/24 10:16 81 MG Enteral Nutritional Formula 1,000 ml 30ML/HR GT 04/21/24 14:45 Piperacillin Sod/ Tazobactam Sod 100 ml @ 25 mls/hr Q8H IV 04/22/24 00:00 04/24/24 23:28 25 MLS/HR Micafungin Sodium 100 mg/Sodium Chloride 100 ml @ 100 mls/hr DAILY IV 04/22/24 10:00 04/24/24 10:17 100 MLS/HR Pantoprazole Sodium 40 mg DAILY IV 04/22/24 10:00 04/24/24 10:16 40 MG Heparin Sodium (Porcine) 5,000 units Q12HR SC 04/22/24 22:00 04/24/24 21:37 5,000 UNITS Purified Water 200 ml Q6HR GT 04/24/24 12:00 04/25/24 05:24 200 ML laboratory and microbiology Laboratory Tests 04/25/24 03:18 Test 04/25/24 03:18 Range/Units Serum Glucose 106 74-106 mg/dL Assessment/Plan Still on Levophed Days ago: There was question about EKG showing STEMI. Patient was intubated again by primary team and taken to Network Architect Manager. s/p Cardiac cath Was found to have APPLICATION SECURITY SPECIALIST of mid LAD (considered old) with full of thrombus. s/p balloon angioplasty with minimal / partial result s/p thoracoscopy and chest tube placement Patient is a 68-year-old female who was transferred from [facility]. She originally presented to [facility] for shortness of breath ongoing for few days. She is intubated and is being managed in ICU. Information was obtained by reviewing the chart and communicating with staff. Reportedly, she presented with respiratory failure to [facility] (oxygen saturation was 88%) and over there was found to have white blood cell count of 26.6, hemoglobin of 11.1, creatinine of 5.6, potassium of 5.6 and troponin of 1.01. She was given 365 mg of aspirin in [facility]. She did have an episode of atrial fibrillation with RVR with questionable ST changes and was transferred to our facility for further care. She was also found to have right pleural effusion in [facility] and was diagnosed with non-STEMI. s/p tracheostomy, on vent support. Obese. Mucosa is pale. Scattered rhonchi in the lungs is heard. Cardiac: Regular, no thrill/gallop. Abdomen is soft with increased bowel sounds. There is no gross mass. Extremities reveal 1+ edema bilaterally. Available past medical history includes obesity and questionable history of psoriasis. WBC: 25.3 - 23.7 - 20.2 - 20.5 - 17.6 - 18.4 - 19.2 - 19.4 - 22.2 - 16.4 - 16.1 - 19.5 - 14.7 - 12.3 - 9.8 - 10.0 - 8.3 - 9.2 - 10.2 - 11.4 - 10.3 - 12.0 - 13.8 - 16.3 - 18.0 - 18.2 - 16.6 - 15.6 - 11.7 - 9.8 Hemoglobin: 10.8 - 9.1 - 8.5 - 8.4 - 8.8 - 8.6 - 8.9 - 8.1 - 8.4 - 8.1 - 8.1 - 8.2 - 8.0 - 7.4 - 7.4 - 7.7 - 7.1 - 8.0 - 7.5 - 8.8 - 7.1 - 9.0 - 8.9 - 9.0 - 8.4 - 8.4 - 8.4 - 8.1 - 8.2 - 8.0 - 8.0 D-dimer: 3.62 Creatinine: 5.67 - 5.78 - 5.41 - 4.92 - 4.55 - 4.68 - 4.71 - 4.64 - 4.48 - 3.83 - 3.66 - 3.65 - 3.25 - 2.82 - 2.41 - 2.34 - 2.01 - 1.90 - 1.60 - 1.83 - 1.73 - 1.74 - 1.76 - 1.78 - 1.82 - 1.94 - 1.99 - 1.93 - 1.95 - 2.39- 2.09 - 1.81 Potassium: 6.0 - 6.3 - 6.1 - 6.0 - 5.3 - 5.0 - 4.9 - 4.8 - 5.1 - 5.4 - 4.9 - 5.3 - 4.8 - 4.5 - 4.7 - 4.3 - 4.2 - 3.9 - 4.6 - 3.8 - 3.5 - 3.3 - 3.6 - 3.6 - 4.0 - 3.5 - 4.0 - 3.7 - 3.6 - 3.5 - 3.4 - 4.0 - 3.9 - 3.0 - 3.4 - 3.3 Lactic acid: 3.3 - 3.4 - 2.3 - 2.5 - 2.5 - 2.7 - 2.4 - 2.5 - 3.1 - 2.3 - 1.7 - 1.7 TSH: 1.71 BNP: 274.69 - 1944.81 - 373.79 Troponin (high sensitive): 6150 - 9532 - 9973 - 6213 - 592 - 7413 Blood culture: positive Pleural fluid culture: E-coli Digoxin level: 2.09 Stool OB: positive Chest x-ray revealed: IMPRESSION: 1. Moderate right pleural effusion. 2. Cardiomegaly with mild pulmonary vascular congestion bilaterally. Repeat chest x-ray revealed: IMPRESSION: 1. Endotracheal tube and gastric tubes in place as described. 2. Right IJ central venous catheter projects over the lower SVC. 3. Mild cardiomegaly and prominence of the pulmonary vasculature. 4. Moderate to large right pleural effusion. Repeat chest x-ray revealed: IMPRESSION: Similar lung aeration with large right pleural effusion. No pneumothorax seen. Stable lines and tubes. Repeat chest x-ray revealed: IMPRESSION: Similar lung aeration with large right pleural effusion. No pneumothorax seen. Stable lines and tubes. Repeat chest xry revealed: Lines and tubes: ET in the mid thoracic trachea. NG crosses midline. Right CVC is stable. Left HD catheter projects over the mediastinum. Cardiomediastinal silhouette: Enlarged Pulmonary vasculature: prominent Lung expansion: low Lung airspace: patchy bilateral airspace opacity. Lung interstitium: normal Pleura: Similar large right effusion. Pneumothorax: no Bones: Unremarkable Other: no IMPRESSION: Lines and tubes, as above. Similar lung aeration bilaterally with a right pleural effusion and patchy airspace opacities. Repeat chest xry revealed: IMPRESSION: 1. Stable position of the support lines and tubes. 2. Interstitial and alveolar opacities. Repeat chest xry revealed: IMPRESSION: Unchanged multifocal airspace disease. Small to moderate right pleural effusion ; possibly loculated. Repeat chest xry revealed: IMPRESSION: Lines and tubes in satisfactory position. No significant interval change. Repeat chest xry revealed: IMPRESSION: 1. Support lines and tubes in appropriate position. 2. Pulmonary vascular congestion. 3. Bilateral pleural effusions, right greater than left. Repeat chest xry revealed: IMPRESSION: 1. Support lines and tubes in appropriate position. 2. Pulmonary vascular congestion. 3. Bilateral pleural effusions, right greater than left. Repeat chest xry revealed: IMPRESSION: Interval placement of right chest tube which projects deep into the right hilar region. Repeat chest xry revealed: IMPRESSION: No interval change Repeat chest xry revealed: Findings/IMPRESSION: Right IJ CVC terminating in the SVC. Endotracheal tube projected 5 cm superior to the mili. Enteric tube projected below the GE junction. Right-sided PICC projects terminating near the cavoatrial junction. Small bilateral pleural effusions and/or atelectasis with superimposed infection not excluded. Repeat chest xry revealed: MPRESSION: 1. Bilateral pleural effusions and airspace disease right greater than left. Repeat chest xry revealed: IMPRESSION: 1. Endotracheal tube terminates 6.0 cm above the mili, previously 3.1 cm above the mili. Otherwise, No significant interval change. Repeat chest xry revealed: IMPRESSION: 1. Endotracheal tube terminates 6.0 cm above the mili, previously 3.1 cm above the mili. Otherwise, No significant interval change. Repeat chest xry revealed: IMPRESSION: Lines and tubes in satisfactory position. No significant interval change. Repeat chest xry revealed: IMPRESSION: Lines and tubes in satisfactory position. No significant interval change. Repeat chest xry revealed: IMPRESSION: Lines and tubes in satisfactory position. No significant interval change. Repeat chest xry revealed: IMPRESSION: Lines and tubes in satisfactory position. No significant interval change. Repeat chest xry revealed: IMPRESSION: Endotracheal tube projects in appropriate position. Otherwise no significant change Repeat chest xry revealed: FINDINGS: Lines and Tubes: Right PICC and enteric catheter and right chest tube in satisfactory position. Endotracheal tube projects 3.8 cm above the level of the mili. Lungs: Bibasilar opacities. Pleura: Possible small right pleural effusion. No pneumothorax. Cardiomediastinal contours: Unremarkable Bones: Unremarkable IMPRESSION: No significant change compared to prior exam. Repeat chest xry revealed: IMPRESSION: Lines and tubes in satisfactory position. No significant interval change. Repeat chest xry revealed: IMPRESSION: 1. Bibasilar opacities representing pleural effusions and airspace disease similar to prior study. 2. Satisfactory position of the support lines and tubes. Repeat chest xry revealed: IMPRESSION: 1. Stable appearance of the chest. Unchanged position of the support lines and tubes. Repeat chest xry revealed: Lines and Tubes: - Tracheostomy in satisfactory position - Enteric catheter in satisfactory position - Right PICC (Peripherally Inserted Central Catheter) in satisfactory position - Right chest tube in satisfactory position Lungs: - Diffuse pulmonary vascular congestion Pleura: - Possible small bilateral pleural effusions Cardiomediastinal contours: - Unremarkable Bones: Unremarkable IMPRESSION: Tracheostomy in satisfactory position. No other significant interval change. Repeat chest xry revealed: IMPRESSION: 1. Stable pulmonary congestion, patchy right mid to lower lung zone opacities. 2. Stable position of the support lines and tubes. Repeat chest xry revealed: IMPRESSION: Lines and tubes in satisfactory position. No significant interval change. Renal ultrasound revealed: IMPRESSION: 1. Right kidney measures 13.4 cm. Decreased cortical thickness on the right. 2. Left kidney measures 10.2 cm. 3. No hydronephrosis on the right grade 1 hydronephrosis on the left. 4. Bilateral renal calculi. CT scan of the chest/abdomen and pelvis revealed: IMPRESSION: 1. Moderate partially loculated right pleural effusion and consolidations in the right middle and lower lobes which could be pneumonia and/or atelectasis. 2. Mild cardiomegaly, mild interstitial pulmonary edema, and body wall edema. 3. There is a 1.9 cm calculus in the right UPJ with mild right hydronephrosis 4. There is a 2.6 cm somewhat staghorn appearing calculus in the left renal pelvis and UPJ causing mild predominantly mid to lower pole left hydronephrosis. Mild soft tissue stranding about the left renal pelvis which could be due to obstruction or superimposed infection. Correlate with urinalysis. 5. Partial duplication of the left renal collecting system without hydronephrosis in the upper pole. 6. Moderate right perinephric, right retroperitoneal, and bilateral extraperitoneal pelvis low-density fluid and very mild left retroperitoneal low-density fluid. This could be fluid related to bilateral renal obstructions and forniceal ruptures versus evolved retroperitoneal hematoma. This is suboptimally evaluated without intravenous contrast. 7. Fluid-filled small and large bowel loops which may be physiologic or related to enterocolitis and could be manifesting as loose stools and/or diarrhea. 8. Prominent endometrium measuring at least 2.8 cm, suboptimally evaluated by CT. Recommend characterization with nonemergent pelvic ultrasound if clinically indicated. 9. Mild hepatosplenomegaly. 10. Moderate three-vessel calcified coronary artery disease and mild aortic valve calcification. 11. Right IJ central venous catheter in place terminating in the low SVC. 12. Small soft tissue stranding in the right supraclavicular neck which could be blood products. 13. Endotracheal tube terminates above the mili. Repeat CT of chest / abdomen and pelvis revealed: IMPRESSION: 1. Moderate intermediate density right perinephric fluid extending into the bilateral extrarenal pelvis and also to a lesser extent in the peritoneal cavity, which could reflect retroperitoneal hematoma. Evaluation for active bleeding limited on this examination. 2. Moderate partially loculated right pleural effusion with a right thoracostomy tube terminating in the anterior medial right upper lobe. 3. Development of a small amount of air in the right pleural space at the level of the right middle lobe concordant with pneumothorax. 4. Bilateral renal calculi with a staghorn appearing calculus on the left. 5. Dependent consolidations of the [id number]-left lower lobes which could reflect atelectasis and/or pneumonia (which can be on the basis of aspiration. 6. Mild cardiomegaly, mild aortic valve calcifications and moderate coronary artery calcifications. Mild Interstitial pulmonary edema. CT of the head revealed: IMPRESSION: 1. No acute intracranial abnormality. 2. Generalized cerebral volume loss and mild chronic microvascular ischemic change. 3. Partially imaged endotracheal tube. Chest ultrasound revealed: Findings/Impression: There is a trace bilateral pleural effusion. Thoracentesis: FINDINGS: Moderate size, complex and septated right pleural effusion. Aspirated fluid is thick and green in consistency. IMPRESSION: Right thoracentesis with 250 mL removed for laboratory analysis. EKG in [facility] revealed sinus tachycardia, poor R-wave progression old inferior wall [place]. later EKG revealed atrial fibrillation with RVR. Repeat EKGs questioned STEMI. but resolved later. Telemetry reveals sinus rhythm, occasions of A-fib with RVR, SVT Echocardiogram revealed: Technically limited study secondary to poor acoustic windows. Left ventricle: Left ventricle was normal-sized. Mild concentric left ventricular hypertrophy was seen. LVEF was 55-60%. No gross wall motion abnormality was observed, but its presence can not be ruled out on the basis of this study. Right ventricle is mildly dilated with normal systolic function. Left atrium was mildly dilated. Right atrium was normal-sized. Aortic valve was trileaflet. There was no aortic insufficiency. There was aortic sclerosis with no stenosis. There was trivial mitral/tricuspid regurgitation. Pulmonary valve was not well visualized. Right ventricular systolic pressure was assessed around 48 mm Hg. There was no pericardial effusion. Left heart cath revealed: One-vessel coronary artery disease, APPLICATION SECURITY SPECIALIST of mid LAD, Attempted to open up the LAD APPLICATION SECURITY SPECIALIST, partially/minimally successful (status post balloon angioplasty). LVEF of 25% (dilated LV). Cardiac suggestion for management: Dual antiplatelet therapy (loaded with aspirin and Plavix). Guideline directed medical therapy for systolic heart failure Repeat echo revealed: Technically limited study secondary to poor acoustic windows. Left ventricle: Concentric left ventricular hypertrophy was seen anteroapical hypokinesia was seen. The LVEF was around 40%. Right ventricular was normal sized with normal systolic function. Atria were not well-visualized. Aortic valve: Aortic valve was not well visualized. There was no aortic stenosis/insufficiency. Mild mitral/tricuspid regurgitation was observed. Pulmonary valve was not well visualized. Right ventricular systolic pressure was assessed around 35 mm Hg. There was no pericardial effusion. Patient is a 68-year-old morbidly obese patient who presented with respiratory failure to the hospital. Presentation is in favor of sepsis/septic shock. Multiorgan failure is observed. She is intubated and on vent support. She is on multiple pressor support. Life findings are in favor of acute renal failure. She also is known to have nephrolithiasis with history of staghorn calculi. Cardiac-ceballos, the patient did have episode of atrial fibrillation with RVR. She is found to have increased troponin. Presentation questions non-STEMI and possibly type 2 ischemia. Recognizing the presentation, ischemic workup should be postponed after clinical stability (only if patient recovers higher brain function). Is being followed by Nephrology. Had episodes of tachyarrhythmia. Loaded with Digoxin. Positive cultures. Repeated a-fib with RVR. Was evaluated by Interventional Cardiology intervention specialist for STEMI (not considered STEMI). As there was repeated EKG changes in favor of STEMI, patient was taken to cook's assistant: Was found to have APPLICATION SECURITY SPECIALIST of mid LAD (considered old) with full of thrombus. s/p balloon angioplasty with minimal / partial result Septic shock Multiorgan failure Acute respiratory failure on vent support Acute renal failure Nephrolithiasis Staghorn calculi Hydronephrosis Abnormal troponin, non-STEMI Atrial fibrillation with RVR Paroxysmal AFib Acute heart failure, diastolic Hepatosplenomegaly Pleural effusion Status post thoracentesis Morbid obesity s/p Cardioversion for A-fib with RVR s/p thoracoscopy and chest tube placement CAD: APPLICATION SECURITY SPECIALIST of mid LAD (considered old) with full of thrombus. s/p balloon angioplasty with minimal / partial result s/p tracheostomy Cardiac suggestion for management: Manage in ICU Follow-up electrolytes and kidney function tests and correct abnormalities Pressure support to keep mean arterial pressure above 65 Amiodarone oral/O mg BID Daily aspirin (81 mg daily) s/p thoracoscopy and chest tube placement s/p tracheostomy IV metoprolol PRN for a-fib with RVR episodes. Sepsis workup and management as per primary team Evaluation and management of respiratory failure as per primary team/Pulmonary Evaluation and management of nephrolithiasis/hydronephrosis as per primary/Urology Evaluation and management of acute renal failure as per Nephrology Further evaluation and management as per above and clinical course. A total of 75 minutes was spent reviewing the patient record, examining the patient, making a diagnostic and therapeutic plan, discussing this plan with medical personnel, following up on diagnostic studies and following the patient for clinical stability excluding any and all procedures. At least 50% of this time was spent in direct, [id number] contact. Thank you for allowing me to participate in this patient's care. Further recommendations will depend on patient's clinical course. Please do not hesitate to contact me if you have any questions or concerns. This medical document was created using electronic medical record system with [employer] computerized dictation system. Although this document has been carefully reviewed, there may still be some phonetic and typographical errors. These areas are purely typographical due to the imperfection of the software programs, and do not reflect any compromise in the patient's medical care. Dietary Evaluation Review Comments: 1) If GI is accessible consider Nepro 1.8 @ 30 ml/hr goal rate as tolerated with current rate of propofol on board. 2) If pt remains NPO >7 days consider TPN to meet at least 75% of estimated needs 3) If pt continues to receive HD, advance pt diet when medically feasible to a Renal Standard diet modified per TRAVEL SPECIALIST recommendations 4) If HD is discontinued and GFR is within normal range, advance pt diet to a Regular diet, modified per TRAVEL SPECIALIST recommendations 5)If HD is discontinued and GFR lies within STG 1-4, advance pt diet to a Renal Specific K2,lowphos,HECTOR,2gmNa,80gPro diet 6) If HD is discontinued and if GFR returns to normal levels then ALEXANDRA 1 pkt BID with meals may be considered to aid with wound healing 7) Continue current plan of care Expected Outcomes/Goals: 1) Pt to receive nutrition support within 7 days of NPO status 2) Pt labs to improve 3) Pt diet to advance 4) F/U in 2-3 days Plan discussed with: Other (nurse) HERMINIO JOHNSON MD Apr 25, 2024 06:17
--- NOTE | 2024-04-25 09:30 | DVHPN2 ---
Progress Note Date Seen: Apr 25, 2024 Has the PT tested + for MRSA If YES, has PT been informed?: No Medical Necessity Reason Pt with a Central, PICC or Fol: Yes The following are medically ne: Central Line, Whipple Catheter Reason for whipple catheter: Strict I&O Objective vital signs Vital Sign Date Time Temp Pulse Resp B/P (MAP) Pulse Ox O2 Delivery O2 Flow Rate FiO2 04/25/24 07:51 65 18 119/68 (85) 97 30 04/25/24 06:00 Mechanical Ventilator+ 04/25/24 04:00 98.4 98.4 Total Intake and Output 04/24/24 04/24/24 04/25/24 15:00 23:00 07:00 Intake Total 434.720 ml 884.504 ml 936.691 ml Output Total 1900 ml 715 ml Balance 434.720 ml -1015.496 ml 221.691 ml medications Current Medications Medications Dose Ordered Sig/Destini Route Start Time Stop Time Status Last Admin Dose Admin Heparin Sodium/ Dextrose 250 ml @ 18 mls/hr [id number] IV 03/31/24 23:45 UNV Midazolam HCl 50 ml @ 1 mls/hr Q24H IV 04/01/24 01:30 04/25/24 05:23 11 MLS/HR Ondansetron HCl 4 mg Q4HP PRN IV 04/01/24 05:00 Albumin Human 100 ml @ 100 mls/hr KIRAN PRN IV 04/03/24 07:00 Norepinephrine Bitartrate 32 mg/ Sodium Chloride 250 ml @ 0.469 mls/ hr Q24H IV 04/04/24 06:30 04/24/24 14:15 2.813 MLS/HR Sodium Chloride 10 ml QSHIFT@10,22 IV 04/09/24 22:00 04/25/24 09:11 10 ML Iron Sucrose 110 ml @ 110 mls/hr DAILY@1200 IV 04/10/24 12:00 Hold 04/19/24 13:25 110 MLS/HR Amiodarone HCl 200 mg Q12HR PO 04/10/24 22:00 UNV Amiodarone HCl 200 mg Q12HR PO 04/10/24 22:00 04/25/24 09:11 200 MG Albuterol 2.5 mg Q4HR NEB 04/16/24 18:00 04/25/24 06:13 2.5 MG Ipratropium [place] 0.5 mg Q4HR NEB 04/16/24 18:00 04/25/24 06:13 0.5 MG Budesonide 0.5 mg BID NEB 04/16/24 22:00 04/25/24 06:13 0.5 MG Fentanyl Citrate 250 ml @ 2.5 mls/hr Q24H IV 04/20/24 22:30 04/24/24 19:44 15 MLS/HR Aspirin 81 mg DAILY PO 04/22/24 10:00 04/25/24 09:11 81 MG Enteral Nutritional Formula 1,000 ml 30ML/HR GT 04/21/24 14:45 Piperacillin Sod/ Tazobactam Sod 100 ml @ 25 mls/hr Q8H IV 04/22/24 00:00 04/25/24 09:09 25 MLS/HR Micafungin Sodium 100 mg/Sodium Chloride 100 ml @ 100 mls/hr DAILY IV 04/22/24 10:00 04/24/24 10:17 100 MLS/HR Pantoprazole Sodium 40 mg DAILY IV 04/22/24 10:00 04/25/24 09:09 40 MG Heparin Sodium (Porcine) 5,000 units Q12HR SC 04/22/24 22:00 04/25/24 09:10 5,000 UNITS Purified Water 200 ml Q6HR GT 04/24/24 12:00 04/25/24 05:24 200 ML laboratory and microbiology Laboratory Tests 04/25/24 03:18 Test 04/25/24 03:18 Range/Units Serum Glucose 106 74-106 mg/dL Problem List/Assessment/Plan Problem List/Assessment/Plan 04/04/24I was just notified by anesthesiologists that they were evaluating the patient in the ICU and that she just became hemodynamically unstable and is being dialysed, the plan is to cardiovert her later this PM, I will cancel operation for today, it is also very likely that her sepsis is not due t othe pleural effusion but rather the hydronephrosis and superimposed urinary infection. 04/07/24 according to patient is now stable enough to undergo evacuation of empyema left chest, fluid grew enteric organisms, will attempt thoracoscopy but most likely will need a thoracotomy tomorrow AM.; I had previously explained the procedure and its attendant possible complications to pt's daughter 04/10/24 POST STABLE,CHEST X RAY REVIEWED, CHEST TUBE WITH MINIMAL TO MODERATE PURULENT OUTPUT, NO AIR LEAK, CONTINUE IS 04/11/24 essentially unchanged , chest tube with serosanguineous drainage, still needing BP support, good urine output 04/15/24 off sedation on ventilator, chest tube without air leak, lungs fully expanded, small persistent effusion on right. still needs BP support, WBC normal, h/h stable 04/17/24 chest tube without air leak, small amount of non purulent output, "surgically "stable, will sign off, please recall if needed 04/25/24 Dr Ogden requesting that Im perform right thoracotomy to "clean up" the pleural cavity as tyhe patient continues to be septic and now has fluid in the,chest which ism not accessible to the indwelling chest tube. will proceed with operation on Sunday AM(04/28/24). Plan discussed with: Other Dietary Evaluation Review Comments: 1) If GI is accessible consider Nepro 1.8 @ 30 ml/hr goal rate as tolerated with current rate of propofol on board. 2) If pt remains NPO >7 days consider TPN to meet at least 75% of estimated needs 3) If pt continues to receive HD, advance pt diet when medically feasible to a Renal Standard diet modified per CUSTOMER SERVICE LEADER recommendations 4) If HD is discontinued and GFR is within normal range, advance pt diet to a Regular diet, modified per CUSTOMER SERVICE LEADER recommendations 5)If HD is discontinued and GFR lies within STG 1-4, advance pt diet to a Renal Specific K2,lowphos,HECTOR,2gmNa,80gPro diet 6) If HD is discontinued and if GFR returns to normal levels then ALEXANDRA 1 pkt BID with meals may be considered to aid with wound healing 7) Continue current plan of care Expected Outcomes/Goals: 1) Pt to receive nutrition support within 7 days of NPO status 2) Pt labs to improve 3) Pt diet to advance 4) F/U in 2-3 days SANTY HAZEL MD Apr 25, 2024 09:30
--- NOTE | 2024-04-25 14:53 | DVHPN2 ---
Progress Note - Dictate Date Seen: Apr 25, 2024 Has the PT tested + for MRSA If YES, has PT been informed?: No Medical Necessity Reason Pt with a Central, PICC or Fol: Yes The following are medically ne: Central Line, Whipple Catheter Reason for whipple catheter: Strict I&O Subjective remains intubated vital signs Vital Sign Date Time Temp Pulse Resp B/P (MAP) Pulse Ox O2 Delivery O2 Flow Rate FiO2 04/25/24 12:30 65 18 108/62 (77) 99 04/25/24 12:00 30 04/25/24 12:00 98.4 98.4 04/25/24 12:00 Mechanical Ventilator+ Total Intake and Output 04/24/24 04/24/24 04/25/24 15:00 23:00 07:00 Intake Total 434.720 ml 884.504 ml 1065.504 ml Output Total 1900 ml 715 ml Balance 434.720 ml -1015.496 ml 350.504 ml medications Current Medications Medications Dose Ordered Sig/Destini Route Start Time Stop Time Status Last Admin Dose Admin Heparin Sodium/ Dextrose 250 ml @ 18 mls/hr [id number] IV 03/31/24 23:45 UNV Midazolam HCl 50 ml @ 1 mls/hr Q24H IV 04/01/24 01:30 04/25/24 14:43 5 MLS/HR Ondansetron HCl 4 mg Q4HP PRN IV 04/01/24 05:00 Albumin Human 100 ml @ 100 mls/hr KIRAN PRN IV 04/03/24 07:00 Norepinephrine Bitartrate 32 mg/ Sodium Chloride 250 ml @ 0.469 mls/ hr Q24H IV 04/04/24 06:30 04/24/24 14:15 2.813 MLS/HR Sodium Chloride 10 ml QSHIFT@,22 IV 04/09/24 22:00 04/25/24 09:11 10 ML Iron Sucrose 110 ml @ 110 mls/hr DAILY@1200 IV 04/10/24 12:00 Hold 04/19/24 13:25 110 MLS/HR Amiodarone HCl 200 mg Q12HR PO 04/10/24 22:00 UNV Amiodarone HCl 200 mg Q12HR PO 04/10/24 22:00 04/25/24 09:11 200 MG Albuterol 2.5 mg Q4HR NEB 04/16/24 18:00 04/25/24 14:27 2.5 MG Ipratropium [place] 0.5 mg Q4HR NEB 04/16/24 18:00 04/25/24 14:27 0.5 MG Budesonide 0.5 mg BID NEB 04/16/24 22:00 04/25/24 06:13 0.5 MG Fentanyl Citrate 250 ml @ 2.5 mls/hr Q24H IV 04/20/24 22:30 04/24/24 19:44 15 MLS/HR Aspirin 81 mg DAILY PO 04/22/24 10:00 04/25/24 09:11 81 MG Enteral Nutritional Formula 1,000 ml 30ML/HR GT 04/21/24 14:45 Piperacillin Sod/ Tazobactam Sod 100 ml @ 25 mls/hr Q8H IV 04/22/24 00:00 04/25/24 14:34 25 MLS/HR Micafungin Sodium 100 mg/Sodium Chloride 100 ml @ 100 mls/hr DAILY IV 04/22/24 10:00 04/25/24 10:31 100 MLS/HR Pantoprazole Sodium 40 mg DAILY IV 04/22/24 10:00 04/25/24 09:09 40 MG Heparin Sodium (Porcine) 5,000 units Q12HR SC 04/22/24 22:00 04/25/24 09:10 5,000 UNITS Purified Water 200 ml Q6HR GT 04/24/24 12:00 04/25/24 12:24 200 ML objective obese white female intubated, trach to vent sedated rrr rales 1+ edema laboratory and microbiology Laboratory Tests 04/25/24 03:18 Test 04/25/24 03:18 Range/Units Serum Glucose 106 74-106 mg/dL Assessment/Plan Acute kidney injury due to ATN/hemodynamic from shock, required intermittent hemodialysis now recovered Acute respiratory failure, intubated on ventilator Right thoracoscopy, evacuation of empyema, insertion of chest tube on 04/08 NSTEMI septic shock empyema b/l renal stones w/ hydronephrosis morbid obesity afib RVR hypokalemia monitor UOP avoid hypotension no indication for dialysis replace potassium Dietary Evaluation Review Comments: 1) If GI is accessible consider Nepro 1.8 @ 30 ml/hr goal rate as tolerated with current rate of propofol on board. 2) If pt remains NPO >7 days consider TPN to meet at least 75% of estimated needs 3) If pt continues to receive HD, advance pt diet when medically feasible to a Renal Standard diet modified per PROGRAM DIRECTOR recommendations 4) If HD is discontinued and GFR is within normal range, advance pt diet to a Regular diet, modified per PROGRAM DIRECTOR recommendations 5)If HD is discontinued and GFR lies within STG 1-4, advance pt diet to a Renal Specific K2,lowphos,HECTOR,2gmNa,80gPro diet 6) If HD is discontinued and if GFR returns to normal levels then ALEXANDRA 1 pkt BID with meals may be considered to aid with wound healing 7) Continue current plan of care Expected Outcomes/Goals: 1) Pt to receive nutrition support within 7 days of NPO status 2) Pt labs to improve 3) Pt diet to advance 4) F/U in 2-3 days Plan discussed with: Other KLEVER IVLLALBA MD Apr 25, 2024 14:53
--- NOTE | 2024-04-25 15:16 | DVHPNRES ---
Progress Note Date Seen: Apr 25, 2024 Resident Creating Document: JUAN VAZQUEZ RESIDENT Has the PT tested + for MRSA If YES, has PT been informed?: No Medical Necessity Reason Pt with a Central, PICC or Fol: Yes The following are medically ne: Central Line, Whipple Catheter Reason for whipple catheter: Strict I&O Subjective Review of Systems HPI: 68/female, past medical history: Unknown Patient is 68-year-old female who was brought to the hospital from [facility] for higher level of care. Patient was initially treated facility for shortness of breath and was transferred to our hospital. During initial ED evaluation patient found to be tachypneic with severe respiratory failure, atrial fibrillation. Initially patient required oxygenation via non- rebreather mask however patient intubated to protect airway. Patient started on IV antibiotic, requiring vasopressor and amiodarone drip initially. With further evaluation chest ultrasound showed bilateral pleural effusion, CT scan of chest and abdomen was performed which showed partially loculated right pleural effusion and consolidation in right middle and lower lobe. Patient also found to have right hydronephrosis with 1.9 cm calculus into right UPJ. Radiologist performed right-sided thoracentesis which removed 250 mL of fluid. L patient was placed with right-sided chest tube for loculated empyema. Patient underwent right thoracoscopy with evacuation empyema with insertion of chest tube. Patient was extubated on April 16/2024. Patient was reintubated back given possible STEMI and transferred to left heart catheterization. Copy Chief did angioplasty for complete total occlusion of mid LAD. Started on heparin drip, aspirin and Plavix. Patient continued to have x-ray findings with right lower lobe opacity. Continued on antibiotic. Continued require vasopressors, chest type continued to drain. No air leak. ROS: Not obtained as patient is intubated Ventilatory settings: Respiratory rate 22, tidal volume 500, FiO2 30%, peep 5 cm H2O Urine Input/output: balance - 5898 mL, 75 mL urine output in last 12 hours during last night Overnight event: None Labs, micro, imaging/study Micro: Urine culture growing yeast, respiratory culture growing yeast Today patient was seen and examined at bedside. Patient continued on requiring vasopressors, IV antibiotic. Plan for Thoracotomy tomorrow. Continue to have airleak and output from chest tube. NO night event. ROS not obtain given sedated. Objective vital signs Vital Sign Date Time Temp Pulse Resp B/P (MAP) Pulse Ox O2 Delivery O2 Flow Rate FiO2 04/25/24 14:45 68 18 112/64 (80) 99 04/25/24 14:00 Mechanical Ventilator+ 30 30 04/25/24 12:00 98.4 98.4 Total Intake and Output 04/24/24 04/24/24 04/25/24 15:00 23:00 07:00 Intake Total 434.720 ml 884.504 ml 1065.504 ml Output Total 1900 ml 715 ml Balance 434.720 ml -1015.496 ml 350.504 ml medications Current Medications Medications Dose Ordered Sig/Destini Route Start Time Stop Time Status Last Admin Dose Admin Heparin Sodium/ Dextrose 250 ml @ 18 mls/hr [id number] IV 03/31/24 23:45 UNV Midazolam HCl 50 ml @ 1 mls/hr Q24H IV 04/01/24 01:30 04/25/24 14:43 5 MLS/HR Ondansetron HCl 4 mg Q4HP PRN IV 04/01/24 05:00 Albumin Human 100 ml @ 100 mls/hr KIRAN PRN IV 04/03/24 07:00 Norepinephrine Bitartrate 32 mg/ Sodium Chloride 250 ml @ 0.469 mls/ hr Q24H IV 04/04/24 06:30 04/24/24 14:15 2.813 MLS/HR Sodium Chloride 10 ml QSHIFT@10,22 IV 04/09/24 22:00 04/25/24 09:11 10 ML Iron Sucrose 110 ml @ 110 mls/hr DAILY@1200 IV 04/10/24 12:00 Hold 04/19/24 13:25 110 MLS/HR Amiodarone HCl 200 mg Q12HR PO 04/10/24 22:00 UNV Amiodarone HCl 200 mg Q12HR PO 04/10/24 22:00 04/25/24 09:11 200 MG Albuterol 2.5 mg Q4HR NEB 04/16/24 18:00 04/25/24 14:27 2.5 MG Ipratropium [place] 0.5 mg Q4HR NEB 04/16/24 18:00 04/25/24 14:27 0.5 MG Budesonide 0.5 mg BID NEB 04/16/24 22:00 04/25/24 06:13 0.5 MG Fentanyl Citrate 250 ml @ 2.5 mls/hr Q24H IV 04/20/24 22:30 04/24/24 19:44 15 MLS/HR Aspirin 81 mg DAILY PO 04/22/24 10:00 04/25/24 09:11 81 MG Enteral Nutritional Formula 1,000 ml 30ML/HR GT 04/21/24 14:45 Piperacillin Sod/ Tazobactam Sod 100 ml @ 25 mls/hr Q8H IV 04/22/24 00:00 04/25/24 14:34 25 MLS/HR Micafungin Sodium 100 mg/Sodium Chloride 100 ml @ 100 mls/hr DAILY IV 04/22/24 10:00 04/25/24 10:31 100 MLS/HR Pantoprazole Sodium 40 mg DAILY IV 04/22/24 10:00 04/25/24 09:09 40 MG Heparin Sodium (Porcine) 5,000 units Q12HR SC 04/22/24 22:00 04/25/24 09:10 5,000 UNITS Purified Water 200 ml Q6HR GT 04/24/24 12:00 04/25/24 12:24 200 ML Examination General: Patient is intubated and sedated. HEENT: Normocephalic, atraumatic, moist mucous membranes Respiratory/pulmonary: There are no breath sounds audible in the right lung base and diminished breath sounds on the left lung as well. Cardiovascular: Heart rate and rhythm is oscillating significantly from sinus rhythm to AFib rate controlled to AFib with RVR. No murmurs at this time. Abdomen: Abdomen slightly distended, there is no pain to palpation in any of the abdominal quadrants, no palpable masses. Extremities: There is minimal swelling in the lower extremities bilaterally. Peripheral Pulses: 3+ Radial (R). 3+ Radial (L). 3+ Dorsalis pedis (R). 3+ Dorsalis pedis(L) Skin: There is dry skin in bilateral lower extremities with scales and excoriations. Neurological: Sedated, RASS - laboratory and microbiology Laboratory Tests 04/25/24 03:18 Test 04/25/24 03:18 Range/Units Serum Glucose 106 74-106 mg/dL Microbiology Date/Time Source Procedure Growth Status 04/22/24 18:03 Urine - [place]ipple [place] Urine Culture - Final Yeast, not Arlet albicans Complete 04/22/24 15:16 Blood Blood Culture - Preliminary NO GROWTH AFTER 48 HOURS OF INCUBATION. Resulted 04/18/24 15:02 Sputum Gram Stain - Final Complete 04/18/24 15:02 Respiratory Culture - Final Yeast, not Arlet albicans Complete 04/08/24 08:02 Thoracic Fluid Gram Stain - Final Complete 04/08/24 08:02 Thoracic Fluid Anaerobic Culture - Final Complete 04/08/24 08:02 Thoracic Fluid Aerobic Culture - Final Complete 04/01/24 11:19 Nose MRSA Screen - Final Complete Problem List/Assessment/Plan Problem List/Assessment/Plan Neurology Sedation -currently on midazolam and fentanyl Respiratory Acute hypoxic respirtory failure likel due to right-sided pleural effusion/empyema and consolidation on right middle and lower lobe -on mechanical ventilation: Respiratory rate 16, tidal volume 500, FiO2 30%, peep 5 cm H2O -presence of chest tube: Minimal drainage, no air leak. -chest x-ray on 04/22/2022: Right-sided pleural effusion, right lower lobe opacification. -IV antibiotic with Zosyn plus micafungin -CT of the chest and abdomen showed moderate partial loculated right pleural effusion and consolidation on right middle/lower lobes. Mild cardiomegaly and interstitial pulmonary edema. It also showed right hydronephrosis with 1.9 cm calculus into the right UPJ. There is also a 2.6 cm staghorn appearing calculus causing mid to lower pole left hydronephrosis. -Respiratory culture: Yeast, not Arlet on 04/17/2024. Repeat culture pending. -CT chest(04/22/24):1. Moderate intermediate density right perinephric fluid extending into the bilateral extrarenal pelvis and also to a lesser extent in the peritoneal cavity, which could reflect retroperitoneal hematoma. Evaluation for active bleeding limited on this examination. 2. Moderate partially loculated right pleural effusion with a right thoracostomy tube terminating in the anterior medial right upper lobe. 3. Development of a small amount of air in the right pleural space at the level of the right middle lobe concordant with pneumothorax. 4. Bilateral renal calculi with a staghorn appearing calculus on the left. 5. Dependent consolidations of the lyiwy-jrytvfm-isgs-left lower lobes which could reflect atelectasis and/or pneumonia (which can be on the basis of aspiration. 6. Mild cardiomegaly, mild aortic valve calcifications and moderate coronary artery calcifications. Mild Interstitial pulmonary edema. -Underwent tracheostomy (04/23/24) -Surgical consultation for Thoracotomy -Vent setting:RR reduce to 18, TV500, fio2 30, peep 5. Septic shock in the setting of loculated right-sided pleural effusion and pneumonia -continue management of acute respiratory failure likely due to empyema. -vasopressor with norepinephrine - continue zosyn -Respiratory culture positive for yeast on 04/17/2024. -Stoped bumex drip and Dopamin S/P Tracheostomy (04/23/24) Cardiology Acute on chronic systolic/diastolic heart failure -echocardiogram is showing an LVEF of 55-60% with increased RVSP at 48 mmHg and no pericardial effusion -Continue monitor I/O -repeat x ray In AM NSTEMI type II likely due to above -continue current management. -CAD: FENCE POST CUTTER of mid LAD (considered old) with full of thrombus. s/p balloon angioplasty with minimal / partial result Atrial fibrilation with RVR: Rate controlled -continue amiodarone 200 mg p.o. b.i.d. -heparin 5000 IU BID -Cardiology on board Nephrology Hypernatremia resolved - Discontinue free water 200 mL q.6 via G-tube -repeat sodium level in a.m. Bilateral hydronephrosis with left-sided staghorn calculi and right UVJ calculi -CT scan of the chest and abdomen showed right hydronephrosis with 1.9 cm calculus into the right UPJ, there was also a 2.6 cm staghorn appearing calculus causing mid to lower pole left hydronephrosis. -nephrology on board -drainage with Whipple catheter. -continue I/O monitoring CHRISTOPH due to VMN initially likely in setting of septic shock: Resolved -most likely secondary to bilateral renal calculi -nephrology and urology on board -monitor kidney function Hypokalemia -replenish Nutrition Nepro 15 mL/hour via G-tube. Lines: Right upper arm PICC line: Placed on 04/09/2024 PUD prophylaxis: Protonix DVT prophylaxis: Heparin Goals of care discussed with the daughter and brother at bedside for >31min by Dr. Alin Dawson previously Critical time spent > 78 min Plan discussed with Dr Linn Plan discussed with: Other (RN) My Orders My Orders Orders - JUAN VAZQUEZ RESIDENT Procedure Category Date Status Time Chest Xray 1 View XY 04/25/24 Resulted 04:00 Abg W/ Co-Ox RT 04/25/24 Logged 04:00 Dietary Evaluation Review Comments: 1) If GI is accessible consider Nepro 1.8 @ 30 ml/hr goal rate as tolerated with current rate of propofol on board. 2) If pt remains NPO >7 days consider TPN to meet at least 75% of estimated needs 3) If pt continues to receive HD, advance pt diet when medically feasible to a Renal Standard diet modified per ENVIRONMENTAL SERVICES WORKER recommendations 4) If HD is discontinued and GFR is within normal range, advance pt diet to a Regular diet, modified per ENVIRONMENTAL SERVICES WORKER recommendations 5)If HD is discontinued and GFR lies within STG 1-4, advance pt diet to a Renal Specific K2,lowphos,HECTOR,2gmNa,80gPro diet 6) If HD is discontinued and if GFR returns to normal levels then ALEXANDRA 1 pkt BID with meals may be considered to aid with wound healing 7) Continue current plan of care Expected Outcomes/Goals: 1) Pt to receive nutrition support within 7 days of NPO status 2) Pt labs to improve 3) Pt diet to advance 4) F/U in 2-3 days Date of Service: Apr 25, 2024 Billing Provider: CHER LINN MD Common Visit Codes: 78492-[id number] CARE 30-74 MIN, [id number] CARE-EACH +30MIN JUAN VAZQUEZ Apr 25, 2024 15:16 CHER LINN MD May 02, 2024 17:14
[2024-04-25 15:49] LABS: Base Excess -0.5 mmol/L (-2.0-3.0)
[2024-04-26] VITALS (108 sets, daily range): BP systolic 82–137; BP diastolic 45–73; PULSE 68–90; RESP 11–25; TEMP 97.4–99.5; O2SAT 93–100
[2024-04-26] MEDS: Nepro With Carb Steady 1 Liter Bottle GT SCH (01:58)
[2024-04-26 04:00] LABS: Basophils # (auto) 0.1 10 ^3/uL (0-0.2); Eosinophils # (auto) 0.4 10 ^3/uL (0-0.8); Lymphocytes # (auto) 1.1 10 ^3/uL (0.4-5.4); Monocytes # (auto) 0.5 10 ^3/uL (0-1.3)
[2024-04-26 04:03] LABS: Basophils % (auto) 0.8 % (0.0-2.0); Eosinophils % (auto) 4.3 % (0.0-7.0); Lymphocytes % (auto) 11.7 % (10.0-50.0); Mean Corpuscular Volume 90.6 fL (80.0-100.0); Monocytes % (auto) 5.6 % (0.0-12.0); Neutrophils % (auto) 77.6 % (37.0-80.0); Nucleated Red Blood Cells % 0.1 %; Platelet Count (auto) 237 10^3/uL (140-450); Red Blood Cells 2.76 10^6/uL (4.0-5.20); White Blood Cell 9.1 10^3/uL (4.4-10.8)
[2024-04-26 04:04] LABS: Anion Gap 9 (5-15); Carbon Dioxide 26 mmol/L (20-31); Chloride 111 mmol/L (98-107); Potassium 3.6 mmol/L (3.5-5.1); Sodium 146 mmol/L (136-145)
[2024-04-26 04:05] LABS: Calcium 8.3 mg/dL (8.7-10.4)
[2024-04-26 04:10] LABS: BUN/Creatinine Ratio 22.7 (10.0-20.0); Blood Urea Nitrogen 35 mg/dL (9-23); Glucose 104 mg/dL (74-106); Red Cell Distribution Width 28.3 % (11.8-14.3)
[2024-04-26 04:58] LABS: Platelet Estimate Adequate
[2024-04-26 04:59] LABS: Anisocytosis Moderate; Stomatocytes Few
--- NOTE | 2024-04-26 05:44 | DVH ---
CHEST RADIOGRAPH Indication:On vent Technique: Single frontal view of the chest was obtained COMPARISON: XY CHEST XRAY 1 VIEW on DOS: 04/25/24, XY CHEST XRAY 1 VIEW on DOS: 04/24/24, XY CHEST PO RTABLE on DOS: 04/23/24 FINDINGS: Lines and Tubes: Tracheostomy, right PICC and right chest tube in satisfactory position. Lungs: Multifocal airspace disease. Pleura: No effusion. No pneumothorax. Cardiomediastinal contours: Unremarkable Bones: Unremarkable IMPRESSION: Lines and tubes in satisfactory position. No significant interval change.
[2024-04-26 07:27] LABS: Base Excess 0.1 mmol/L (-2.0-3.0)
--- NOTE | 2024-04-26 13:40 | DVHPN2 ---
Progress Note - Dictate Date Seen: Apr 26, 2024 Has the PT tested + for MRSA If YES, has PT been informed?: No Medical Necessity Reason Pt with a Central, PICC or Fol: Yes The following are medically ne: Central Line, Whipple Catheter Reason for whipple catheter: Strict I&O vital signs Vital Sign Date Time Temp Pulse Resp B/P (MAP) Pulse Ox O2 Delivery O2 Flow Rate FiO2 04/26/24 13:33 75 20 110/55 (73) 100 30 04/26/24 12:00 Mechanical Ventilator+ 04/26/24 12:00 97.4 97.4 Total Intake and Output 04/25/24 04/25/24 04/26/24 15:00 23:00 07:00 Intake Total 518.504 ml 961.096 ml 864.252 ml Output Total 455 ml 300 ml Balance 518.504 ml 506.096 ml 564.252 ml medications Current Medications Medications Dose Ordered Sig/Destini Route Start Time Stop Time Status Last Admin Dose Admin Heparin Sodium/ Dextrose 250 ml @ 18 mls/hr [id number] IV 03/31/24 23:45 UNV Midazolam HCl 50 ml @ 1 mls/hr Q24H IV 04/01/24 01:30 04/26/24 08:46 6 MLS/HR Ondansetron HCl 4 mg Q4HP PRN IV 04/01/24 05:00 Albumin Human 100 ml @ 100 mls/hr KIRAN PRN IV 04/03/24 07:00 Norepinephrine Bitartrate 32 mg/ Sodium Chloride 250 ml @ 0.469 mls/ hr Q24H IV 04/04/24 06:30 04/24/24 14:15 2.813 MLS/HR Sodium Chloride 10 ml QSHIFT@10,22 IV 04/09/24 22:00 04/26/24 08:02 10 ML Iron Sucrose 110 ml @ 110 mls/hr DAILY@1200 IV 04/10/24 12:00 Hold 04/19/24 13:25 110 MLS/HR Amiodarone HCl 200 mg Q12HR PO 04/10/24 22:00 UNV Amiodarone HCl 200 mg Q12HR PO 04/10/24 22:00 04/26/24 07:59 200 MG Albuterol 2.5 mg Q4HR NEB 04/16/24 18:00 04/26/24 10:02 2.5 MG Ipratropium Hilbert 0.5 mg Q4HR NEB 04/16/24 18:00 04/26/24 10:01 0.5 MG Budesonide 0.5 mg BID NEB 04/16/24 22:00 04/26/24 06:38 0.5 MG Fentanyl Citrate 250 ml @ 2.5 mls/hr Q24H IV 04/20/24 22:30 04/26/24 01:21 15 MLS/HR Aspirin 81 mg DAILY PO 04/22/24 10:00 04/26/24 07:59 81 MG Enteral Nutritional Formula 1,000 ml 30ML/HR GT 04/21/24 14:45 04/26/24 01:58 1,000 ML Piperacillin Sod/ Tazobactam Sod 100 ml @ 25 mls/hr Q8H IV 04/22/24 00:00 04/26/24 08:00 25 MLS/HR Pantoprazole Sodium 40 mg DAILY IV 04/22/24 10:00 04/26/24 08:00 40 MG Heparin Sodium (Porcine) 5,000 units Q12HR SC 04/22/24 22:00 04/26/24 08:01 5,000 UNITS laboratory and microbiology Laboratory Tests 04/26/24 03:23 Test 04/26/24 03:23 Range/Units Serum Glucose 104 74-106 mg/dL Assessment/Plan Still on Levophed Days ago: There was question about EKG showing STEMI. Patient was intubated again by primary team and taken to Quality Assurance Engineer. s/p Cardiac cath Was found to have BAGGAGE AND MAIL AGENT of mid LAD (considered old) with full of thrombus. s/p balloon angioplasty with minimal / partial result s/p thoracoscopy and chest tube placement Patient is a 68-year-old female who was transferred from [facility]. She originally presented to [facility] for shortness of breath ongoing for few days. She is intubated and is being managed in ICU. Information was obtained by reviewing the chart and communicating with staff. Reportedly, she presented with respiratory failure to [facility] (oxygen saturation was 88%) and over there was found to have white blood cell count of 26.6, hemoglobin of 11.1, creatinine of 5.6, potassium of 5.6 and troponin of 1.01. She was given 365 mg of aspirin in [facility]. She did have an episode of atrial fibrillation with RVR with questionable ST changes and was transferred to our facility for further care. She was also found to have right pleural effusion in [facility] and was diagnosed with non-STEMI. s/p tracheostomy, on vent support. Obese. Mucosa is pale. Scattered rhonchi in the lungs is heard. Cardiac: Regular, no thrill/gallop. Abdomen is soft with increased bowel sounds. There is no gross mass. Extremities reveal 1+ edema bilaterally. Available past medical history includes obesity and questionable history of psoriasis. WBC: 25.3 - 23.7 - 20.2 - 20.5 - 17.6 - 18.4 - 19.2 - 19.4 - 22.2 - 16.4 - 16.1 - 19.5 - 14.7 - 12.3 - 9.8 - 10.0 - 8.3 - 9.2 - 10.2 - 11.4 - 10.3 - 12.0 - 13.8 - 16.3 - 18.0 - 18.2 - 16.6 - 15.6 - 11.7 - 9.8 - 9.1 Hemoglobin: 10.8 - 9.1 - 8.5 - 8.4 - 8.8 - 8.6 - 8.9 - 8.1 - 8.4 - 8.1 - 8.1 - 8.2 - 8.0 - 7.4 - 7.4 - 7.7 - 7.1 - 8.0 - 7.5 - 8.8 - 7.1 - 9.0 - 8.9 - 9.0 - 8.4 - 8.4 - 8.4 - 8.1 - 8.2 - 8.0 - 8.0 - 8.0 D-dimer: 3.62 Creatinine: 5.67 - 5.78 - 5.41 - 4.92 - 4.55 - 4.68 - 4.71 - 4.64 - 4.48 - 3.83 - 3.66 - 3.65 - 3.25 - 2.82 - 2.41 - 2.34 - 2.01 - 1.90 - 1.60 - 1.83 - 1.73 - 1.74 - 1.76 - 1.78 - 1.82 - 1.94 - 1.99 - 1.93 - 1.95 - 2.39- 2.09 - 1.81 - 1.54 Potassium: 6.0 - 6.3 - 6.1 - 6.0 - 5.3 - 5.0 - 4.9 - 4.8 - 5.1 - 5.4 - 4.9 - 5.3 - 4.8 - 4.5 - 4.7 - 4.3 - 4.2 - 3.9 - 4.6 - 3.8 - 3.5 - 3.3 - 3.6 - 3.6 - 4.0 - 3.5 - 4.0 - 3.7 - 3.6 - 3.5 - 3.4 - 4.0 - 3.9 - 3.0 - 3.4 - 3.3 - 3.6 Lactic acid: 3.3 - 3.4 - 2.3 - 2.5 - 2.5 - 2.7 - 2.4 - 2.5 - 3.1 - 2.3 - 1.7 - 1.7 TSH: 1.71 BNP: 274.69 - 1944.81 - 373.79 Troponin (high sensitive): 1469 - 1515 - 7802 - 5734 - 512 - 3026 Blood culture: positive Pleural fluid culture: E-coli Digoxin level: 2.09 Stool OB: positive Chest x-ray revealed: IMPRESSION: 1. Moderate right pleural effusion. 2. Cardiomegaly with mild pulmonary vascular congestion bilaterally. Repeat chest x-ray revealed: IMPRESSION: 1. Endotracheal tube and gastric tubes in place as described. 2. Right IJ central venous catheter projects over the lower SVC. 3. Mild cardiomegaly and prominence of the pulmonary vasculature. 4. Moderate to large right pleural effusion. Repeat chest x-ray revealed: IMPRESSION: Similar lung aeration with large right pleural effusion. No pneumothorax seen. Stable lines and tubes. Repeat chest x-ray revealed: IMPRESSION: Similar lung aeration with large right pleural effusion. No pneumothorax seen. Stable lines and tubes. Repeat chest xry revealed: Lines and tubes: ET in the mid thoracic trachea. NG crosses midline. Right CVC is stable. Left HD catheter projects over the mediastinum. Cardiomediastinal silhouette: Enlarged Pulmonary vasculature: prominent Lung expansion: low Lung airspace: patchy bilateral airspace opacity. Lung interstitium: normal Pleura: Similar large right effusion. Pneumothorax: no Bones: Unremarkable Other: no IMPRESSION: Lines and tubes, as above. Similar lung aeration bilaterally with a right pleural effusion and patchy airspace opacities. Repeat chest xry revealed: IMPRESSION: 1. Stable position of the support lines and tubes. 2. Interstitial and alveolar opacities. Repeat chest xry revealed: IMPRESSION: Unchanged multifocal airspace disease. Small to moderate right pleural effusion ; possibly loculated. Repeat chest xry revealed: IMPRESSION: Lines and tubes in satisfactory position. No significant interval change. Repeat chest xry revealed: IMPRESSION: 1. Support lines and tubes in appropriate position. 2. Pulmonary vascular congestion. 3. Bilateral pleural effusions, right greater than left. Repeat chest xry revealed: IMPRESSION: 1. Support lines and tubes in appropriate position. 2. Pulmonary vascular congestion. 3. Bilateral pleural effusions, right greater than left. Repeat chest xry revealed: IMPRESSION: Interval placement of right chest tube which projects deep into the right hilar region. Repeat chest xry revealed: IMPRESSION: No interval change Repeat chest xry revealed: Findings/IMPRESSION: Right IJ CVC terminating in the SVC. Endotracheal tube projected 5 cm superior to the mili. Enteric tube projected below the GE junction. Right-sided PICC projects terminating near the cavoatrial junction. Small bilateral pleural effusions and/or atelectasis with superimposed infection not excluded. Repeat chest xry revealed: MPRESSION: 1. Bilateral pleural effusions and airspace disease right greater than left. Repeat chest xry revealed: IMPRESSION: 1. Endotracheal tube terminates 6.0 cm above the mili, previously 3.1 cm above the mili. Otherwise, No significant interval change. Repeat chest xry revealed: IMPRESSION: 1. Endotracheal tube terminates 6.0 cm above the mili, previously 3.1 cm above the mili. Otherwise, No significant interval change. Repeat chest xry revealed: IMPRESSION: Lines and tubes in satisfactory position. No significant interval change. Repeat chest xry revealed: IMPRESSION: Lines and tubes in satisfactory position. No significant interval change. Repeat chest xry revealed: IMPRESSION: Lines and tubes in satisfactory position. No significant interval change. Repeat chest xry revealed: IMPRESSION: Lines and tubes in satisfactory position. No significant interval change. Repeat chest xry revealed: IMPRESSION: Endotracheal tube projects in appropriate position. Otherwise no significant change Repeat chest xry revealed: FINDINGS: Lines and Tubes: Right PICC and enteric catheter and right chest tube in satisfactory position. Endotracheal tube projects 3.8 cm above the level of the mili. Lungs: Bibasilar opacities. Pleura: Possible small right pleural effusion. No pneumothorax. Cardiomediastinal contours: Unremarkable Bones: Unremarkable IMPRESSION: No significant change compared to prior exam. Repeat chest xry revealed: IMPRESSION: Lines and tubes in satisfactory position. No significant interval change. Repeat chest xry revealed: IMPRESSION: 1. Bibasilar opacities representing pleural effusions and airspace disease similar to prior study. 2. Satisfactory position of the support lines and tubes. Repeat chest xry revealed: IMPRESSION: 1. Stable appearance of the chest. Unchanged position of the support lines and tubes. Repeat chest xry revealed: Lines and Tubes: - Tracheostomy in satisfactory position - Enteric catheter in satisfactory position - Right PICC (Peripherally Inserted Central Catheter) in satisfactory position - Right chest tube in satisfactory position Lungs: - Diffuse pulmonary vascular congestion Pleura: - Possible small bilateral pleural effusions Cardiomediastinal contours: - Unremarkable Bones: Unremarkable IMPRESSION: Tracheostomy in satisfactory position. No other significant interval change. Repeat chest xry revealed: IMPRESSION: 1. Stable pulmonary congestion, patchy right mid to lower lung zone opacities. 2. Stable position of the support lines and tubes. Repeat chest xry revealed: IMPRESSION: Lines and tubes in satisfactory position. No significant interval change. Repeat chest xry revealed: IMPRESSION: Lines and tubes in satisfactory position. No significant interval change. Renal ultrasound revealed: IMPRESSION: 1. Right kidney measures 13.4 cm. Decreased cortical thickness on the right. 2. Left kidney measures 10.2 cm. 3. No hydronephrosis on the right grade 1 hydronephrosis on the left. 4. Bilateral renal calculi. CT scan of the chest/abdomen and pelvis revealed: IMPRESSION: 1. Moderate partially loculated right pleural effusion and consolidations in the right middle and lower lobes which could be pneumonia and/or atelectasis. 2. Mild cardiomegaly, mild interstitial pulmonary edema, and body wall edema. 3. There is a 1.9 cm calculus in the right UPJ with mild right hydronephrosis 4. There is a 2.6 cm somewhat staghorn appearing calculus in the left renal pelvis and UPJ causing mild predominantly mid to lower pole left hydronephrosis. Mild soft tissue stranding about the left renal pelvis which could be due to obstruction or superimposed infection. Correlate with urinalysis. 5. Partial duplication of the left renal collecting system without hydronephrosis in the upper pole. 6. Moderate right perinephric, right retroperitoneal, and bilateral extraperitoneal pelvis low-density fluid and very mild left retroperitoneal low-density fluid. This could be fluid related to bilateral renal obstructions and forniceal ruptures versus evolved retroperitoneal hematoma. This is suboptimally evaluated without intravenous contrast. 7. Fluid-filled small and large bowel loops which may be physiologic or related to enterocolitis and could be manifesting as loose stools and/or diarrhea. 8. Prominent endometrium measuring at least 2.8 cm, suboptimally evaluated by CT. Recommend characterization with nonemergent pelvic ultrasound if clinically indicated. 9. Mild hepatosplenomegaly. 10. Moderate three-vessel calcified coronary artery disease and mild aortic valve calcification. 11. Right IJ central venous catheter in place terminating in the low SVC. 12. Small soft tissue stranding in the right supraclavicular neck which could be blood products. 13. Endotracheal tube terminates above the mili. Repeat CT of chest / abdomen and pelvis revealed: IMPRESSION: 1. Moderate intermediate density right perinephric fluid extending into the bilateral extrarenal pelvis and also to a lesser extent in the peritoneal cavity, which could reflect retroperitoneal hematoma. Evaluation for active bleeding limited on this examination. 2. Moderate partially loculated right pleural effusion with a right thoracostomy tube terminating in the anterior medial right upper lobe. 3. Development of a small amount of air in the right pleural space at the level of the right middle lobe concordant with pneumothorax. 4. Bilateral renal calculi with a staghorn appearing calculus on the left. 5. Dependent consolidations of the [id number]-left lower lobes which could reflect atelectasis and/or pneumonia (which can be on the basis of aspiration. 6. Mild cardiomegaly, mild aortic valve calcifications and moderate coronary artery calcifications. Mild Interstitial pulmonary edema. CT of the head revealed: IMPRESSION: 1. No acute intracranial abnormality. 2. Generalized cerebral volume loss and mild chronic microvascular ischemic change. 3. Partially imaged endotracheal tube. Chest ultrasound revealed: Findings/Impression: There is a trace bilateral pleural effusion. Thoracentesis: FINDINGS: Moderate size, complex and septated right pleural effusion. Aspirated fluid is thick and green in consistency. IMPRESSION: Right thoracentesis with 250 mL removed for laboratory analysis. EKG in [facility] revealed sinus tachycardia, poor R-wave progression old inferior wall MT. later EKG revealed atrial fibrillation with RVR. Repeat EKGs questioned STEMI. but resolved later. Telemetry reveals sinus rhythm, occasions of A-fib with RVR, SVT Echocardiogram revealed: Technically limited study secondary to poor acoustic windows. Left ventricle: Left ventricle was normal-sized. Mild concentric left ventricular hypertrophy was seen. LVEF was 55-60%. No gross wall motion abnormality was observed, but its presence can not be ruled out on the basis of this study. Right ventricle is mildly dilated with normal systolic function. Left atrium was mildly dilated. Right atrium was normal-sized. Aortic valve was trileaflet. There was no aortic insufficiency. There was aortic sclerosis with no stenosis. There was trivial mitral/tricuspid regurgitation. Pulmonary valve was not well visualized. Right ventricular systolic pressure was assessed around 48 mm Hg. There was no pericardial effusion. Left heart cath revealed: One-vessel coronary artery disease, BAGGAGE AND MAIL AGENT of mid LAD, Attempted to open up the LAD BAGGAGE AND MAIL AGENT, partially/minimally successful (status post balloon angioplasty). LVEF of 25% (dilated LV). Cardiac suggestion for management: Dual antiplatelet therapy (loaded with aspirin and Plavix). Guideline directed medical therapy for systolic heart failure Repeat echo revealed: Technically limited study secondary to poor acoustic windows. Left ventricle: Concentric left ventricular hypertrophy was seen anteroapical hypokinesia was seen. The LVEF was around 40%. Right ventricular was normal sized with normal systolic function. Atria were not well-visualized. Aortic valve: Aortic valve was not well visualized. There was no aortic stenosis/insufficiency. Mild mitral/tricuspid regurgitation was observed. Pulmonary valve was not well visualized. Right ventricular systolic pressure was assessed around 35 mm Hg. There was no pericardial effusion. Patient is a 68-year-old morbidly obese patient who presented with respiratory failure to the hospital. Presentation is in favor of sepsis/septic shock. Multiorgan failure is observed. She is intubated and on vent support. She is on multiple pressor support. Life findings are in favor of acute renal failure. She also is known to have nephrolithiasis with history of staghorn calculi. Cardiac-ceballos, the patient did have episode of atrial fibrillation with RVR. She is found to have increased troponin. Presentation questions non-STEMI and possibly type 2 ischemia. Recognizing the presentation, ischemic workup should be postponed after clinical stability (only if patient recovers higher brain function). Is being followed by Nephrology. Had episodes of tachyarrhythmia. Loaded with Digoxin. Positive cultures. Repeated a-fib with RVR. Was evaluated by Interventional Cardiology rehabilitation counselor for STEMI (not considered STEMI). As there was repeated EKG changes in favor of STEMI, patient was taken to tacking stitch remover: Was found to have BAGGAGE AND MAIL AGENT of mid LAD (considered old) with full of thrombus. s/p balloon angioplasty with minimal / partial result Septic shock Multiorgan failure Acute respiratory failure on vent support Acute renal failure Nephrolithiasis Staghorn calculi Hydronephrosis Abnormal troponin, non-STEMI Atrial fibrillation with RVR Paroxysmal AFib Acute heart failure, diastolic Hepatosplenomegaly Pleural effusion Status post thoracentesis Morbid obesity s/p Cardioversion for A-fib with RVR s/p thoracoscopy and chest tube placement CAD: BAGGAGE AND MAIL AGENT of mid LAD (considered old) with full of thrombus. s/p balloon angioplasty with minimal / partial result s/p tracheostomy Cardiac suggestion for management: Manage in ICU Follow-up electrolytes and kidney function tests and correct abnormalities Pressure support to keep mean arterial pressure above 65 Amiodarone oral/O mg BID Daily aspirin (81 mg daily) s/p thoracoscopy and chest tube placement s/p tracheostomy To go for Thoracotomy this week IV metoprolol PRN for a-fib with RVR episodes. Sepsis workup and management as per primary team Evaluation and management of respiratory failure as per primary team/Pulmonary Evaluation and management of nephrolithiasis/hydronephrosis as per primary/Urology Evaluation and management of acute renal failure as per Nephrology Further evaluation and management as per above and clinical course. A total of 75 minutes was spent reviewing the patient record, examining the patient, making a diagnostic and therapeutic plan, discussing this plan with medical personnel, following up on diagnostic studies and following the patient for clinical stability excluding any and all procedures. At least 50% of this time was spent in direct, [id number] contact. Thank you for allowing me to participate in this patient's care. Further recommendations will depend on patient's clinical course. Please do not hesitate to contact me if you have any questions or concerns. This medical document was created using electronic medical record system with [employer] computerized dictation system. Although this document has been carefully reviewed, there may still be some phonetic and typographical errors. These areas are purely typographical due to the imperfection of the software programs, and do not reflect any compromise in the patient's medical care. Dietary Evaluation Review Comments: 1) If GI is accessible consider Nepro 1.8 @ 30 ml/hr goal rate as tolerated with current rate of propofol on board. 2) If pt remains NPO >7 days consider TPN to meet at least 75% of estimated needs 3) If pt continues to receive HD, advance pt diet when medically feasible to a Renal Standard diet modified per LOCKSTITCH WAISTBAND SETTER recommendations 4) If HD is discontinued and GFR is within normal range, advance pt diet to a Regular diet, modified per LOCKSTITCH WAISTBAND SETTER recommendations 5)If HD is discontinued and GFR lies within STG 1-4, advance pt diet to a Renal Specific K2,lowphos,HECTOR,2gmNa,80gPro diet 6) If HD is discontinued and if GFR returns to normal levels then ALEXANDRA 1 pkt BID with meals may be considered to aid with wound healing 7) Continue current plan of care Expected Outcomes/Goals: 1) Pt to receive nutrition support within 7 days of NPO status 2) Pt labs to improve 3) Pt diet to advance 4) F/U in 2-3 days Plan discussed with: Other (nurse) HERMINIO JOHNSON MD Apr 26, 2024 13:40
--- NOTE | 2024-04-26 16:38 | DVHPN2 ---
Progress Note - Dictate Date Seen: Apr 26, 2024 Has the PT tested + for MRSA If YES, has PT been informed?: No Medical Necessity Reason Pt with a Central, PICC or Fol: Yes The following are medically ne: Central Line, Whipple Catheter Reason for whipple catheter: Strict I&O Subjective remains intubated vital signs Vital Sign Date Time Temp Pulse Resp B/P (MAP) Pulse Ox O2 Delivery O2 Flow Rate FiO2 04/26/24 16:00 80 04/26/24 16:00 20 96 Mechanical Ventilator+ 30 30 04/26/24 15:35 106/55 (72) 04/26/24 12:00 97.4 97.4 Total Intake and Output 04/25/24 04/25/24 04/26/24 15:00 23:00 07:00 Intake Total 518.504 ml 961.096 ml 864.252 ml Output Total 455 ml 300 ml Balance 518.504 ml 506.096 ml 564.252 ml medications Current Medications Medications Dose Ordered Sig/Destini Route Start Time Stop Time Status Last Admin Dose Admin Heparin Sodium/ Dextrose 250 ml @ 18 mls/hr [id number] IV 03/31/24 23:45 UNV Midazolam HCl 50 ml @ 1 mls/hr Q24H IV 04/01/24 01:30 04/26/24 08:46 6 MLS/HR Ondansetron HCl 4 mg Q4HP PRN IV 04/01/24 05:00 Albumin Human 100 ml @ 100 mls/hr KIRAN PRN IV 04/03/24 07:00 Norepinephrine Bitartrate 32 mg/ Sodium Chloride 250 ml @ 0.469 mls/ hr Q24H IV 04/04/24 06:30 04/24/24 14:15 2.813 MLS/HR Sodium Chloride 10 ml QSHIFT@10,22 IV 04/09/24 22:00 04/26/24 08:02 10 ML Iron Sucrose 110 ml @ 110 mls/hr DAILY@1200 IV 04/10/24 12:00 Hold 04/19/24 13:25 110 MLS/HR Amiodarone HCl 200 mg Q12HR PO 04/10/24 22:00 UNV Amiodarone HCl 200 mg Q12HR PO 04/10/24 22:00 04/26/24 07:59 200 MG Albuterol 2.5 mg Q4HR NEB 04/16/24 18:00 04/26/24 15:00 2.5 MG Ipratropium [place] 0.5 mg Q4HR NEB 04/16/24 18:00 04/26/24 15:00 0.5 MG Budesonide 0.5 mg BID NEB 04/16/24 22:00 04/26/24 06:38 0.5 MG Fentanyl Citrate 250 ml @ 2.5 mls/hr Q24H IV 04/20/24 22:30 04/26/24 01:21 15 MLS/HR Aspirin 81 mg DAILY PO 04/22/24 10:00 04/26/24 07:59 81 MG Enteral Nutritional Formula 1,000 ml 30ML/HR GT 04/21/24 14:45 04/26/24 01:58 1,000 ML Piperacillin Sod/ Tazobactam Sod 100 ml @ 25 mls/hr Q8H IV 04/22/24 00:00 04/26/24 15:16 25 MLS/HR Pantoprazole Sodium 40 mg DAILY IV 04/22/24 10:00 04/26/24 08:00 40 MG Heparin Sodium (Porcine) 5,000 units Q12HR SC 04/22/24 22:00 04/26/24 08:01 5,000 UNITS objective obese white female intubated, trach to vent sedated rrr rales 1+ edema laboratory and microbiology Laboratory Tests 04/26/24 03:23 Test 04/26/24 03:23 Range/Units Serum Glucose 104 74-106 mg/dL Assessment/Plan Acute kidney injury due to ATN/hemodynamic from shock, required intermittent hemodialysis now recovered Acute respiratory failure, intubated on ventilator Right thoracoscopy, evacuation of empyema, insertion of chest tube on 04/08 NSTEMI septic shock empyema b/l renal stones w/ hydronephrosis morbid obesity afib RVR hypokalemia CHRISTOPH resolving, no further renal recs at this time, will sign off rec free water to prevent NA rise monitor UOP avoid hypotension no indication for dialysis replace potassium Dietary Evaluation Review Comments: 1) If GI is accessible consider Nepro 1.8 @ 30 ml/hr goal rate as tolerated with current rate of propofol on board. 2) If pt remains NPO >7 days consider TPN to meet at least 75% of estimated needs 3) If pt continues to receive HD, advance pt diet when medically feasible to a Renal Standard diet modified per PASTORAL MINISTRIES PROFESSOR recommendations 4) If HD is discontinued and GFR is within normal range, advance pt diet to a Regular diet, modified per PASTORAL MINISTRIES PROFESSOR recommendations 5)If HD is discontinued and GFR lies within STG 1-4, advance pt diet to a Renal Specific K2,lowphos,HECTOR,2gmNa,80gPro diet 6) If HD is discontinued and if GFR returns to normal levels then ALEXANDRA 1 pkt BID with meals may be considered to aid with wound healing 7) Continue current plan of care Expected Outcomes/Goals: 1) Pt to receive nutrition support within 7 days of NPO status 2) Pt labs to improve 3) Pt diet to advance 4) F/U in 2-3 days Plan discussed with: KLEVER Kauffman MD Apr 26, 2024 16:38
--- NOTE | 2024-04-26 17:14 | DVHPN2 ---
Subjective Patient is 68-year-old female who was brought to the hospital from [facility] for higher level of care. Patient was initially treated facility for shortness of breath and was transferred to our hospital. During initial ED evaluation patient found to be tachypneic with severe respiratory failure, atrial fibrillation. Initially patient required oxygenation via non- rebreather mask however patient intubated to protect airway. Patient started on IV antibiotic, requiring vasopressor and amiodarone drip initially. With further evaluation chest ultrasound showed bilateral pleural effusion, CT scan of chest and abdomen was performed which showed partially loculated right pleural effusion and consolidation in right middle and lower lobe. Patient also found to have right hydronephrosis with 1.9 cm calculus into right UPJ. Radiologist performed right-sided thoracentesis which removed 250 mL of fluid. L patient was placed with right-sided chest tube for loculated empyema. Patient underwent right thoracoscopy with evacuation empyema with insertion of chest tube. Patient was extubated on April 16/2024. Patient was reintubated back given possible STEMI and transferred to left heart catheterization. Alley Cleaner did angioplasty for complete total occlusion of mid LAD. Started on heparin drip, aspirin and Plavix. Patient continued to have x-ray findings with right lower lobe opacity. Continued on antibiotic. Continued require vasopressors, chest type continued to drain. No air leak. ROS: Not obtained as patient is intubated Ventilatory settings: Respiratory rate 22, tidal volume 500, FiO2 30%, peep 5 cm H2O Urine Input/output: balance - 5898 mL, 75 mL urine output in last 12 hours during last night Overnight event: None Labs, micro, imaging/study Micro: Urine culture growing yeast, respiratory culture growing yeast Today patient was seen and examined at bedside. Patient continued on requiring vasopressors, IV antibiotic. NO night event. ROS not obtain given sedated. Reviewed: Care Plan, H&P, Labs, Medications, Previous Orders, Radiology, Other (Consultants) Changes from previous H/P or p: No Changes Objective Vitals Vital Signs Date Time Temp Pulse Resp B/P (MAP) Pulse Ox O2 Delivery O2 Flow Rate FiO2 04/26/24 16:15 79 20 105/55 (72) 96 04/26/24 16:00 Mechanical Ventilator+ 30 30 04/26/24 12:00 97.4 97.4 Intake/Output Intake and Output 04/26/24 05:00 Intake Total 2501.602 ml Output Total 1170 ml Balance 1331.602 ml Intake Oral 1090 ml IV Total 1086.602 ml Tube Feeding 325 ml Output Urine Total 1150 ml Chest Tube Drainage Total 20 ml # Bowel Movements 2 General Appearance: Other (Intubated and sedated) HEENT: Atraumatic Lungs: Other (Few crackles bilateral lungs) Cardiovascular: Regular rate Abdomen: Soft Skin: Other (Mostly gone the macular rash in the abdominal and chest in area. Also redness in the lower abdominal folds and inguinal areas are better) Medications Current Medications Medications Dose Ordered Sig/Destini Route Start Time Stop Time Status Last Admin Dose Admin Heparin Sodium/ Dextrose 250 ml @ 18 mls/hr [id number] IV 03/31/24 23:45 UNV Midazolam HCl 50 ml @ 1 mls/hr Q24H IV 04/01/24 01:30 04/26/24 08:46 6 MLS/HR Ondansetron HCl 4 mg Q4HP PRN IV 04/01/24 05:00 Albumin Human 100 ml @ 100 mls/hr KIRAN PRN IV 04/03/24 07:00 Norepinephrine Bitartrate 32 mg/ Sodium Chloride 250 ml @ 0.469 mls/ hr Q24H IV 04/04/24 06:30 04/24/24 14:15 2.813 MLS/HR Sodium Chloride 10 ml QSHIFT@,22 IV 04/09/24 22:00 04/26/24 08:02 10 ML Iron Sucrose 110 ml @ 110 mls/hr DAILY@1200 IV 04/10/24 12:00 Hold 04/19/24 13:25 110 MLS/HR Amiodarone HCl 200 mg Q12HR PO 04/10/24 22:00 UNV Amiodarone HCl 200 mg Q12HR PO 04/10/24 22:00 04/26/24 07:59 200 MG Albuterol 2.5 mg Q4HR NEB 04/16/24 18:00 04/26/24 15:00 2.5 MG Ipratropium [place] 0.5 mg Q4HR NEB 04/16/24 18:00 04/26/24 15:00 0.5 MG Budesonide 0.5 mg BID NEB 04/16/24 22:00 04/26/24 06:38 0.5 MG Fentanyl Citrate 250 ml @ 2.5 mls/hr Q24H IV 04/20/24 22:30 04/26/24 01:21 15 MLS/HR Aspirin 81 mg DAILY PO 04/22/24 10:00 04/26/24 07:59 81 MG Enteral Nutritional Formula 1,000 ml 30ML/HR GT 04/21/24 14:45 04/26/24 01:58 1,000 ML Piperacillin Sod/ Tazobactam Sod 100 ml @ 25 mls/hr Q8H IV 04/22/24 00:00 04/26/24 15:16 25 MLS/HR Pantoprazole Sodium 40 mg DAILY IV 04/22/24 10:00 04/26/24 08:00 40 MG Heparin Sodium (Porcine) 5,000 units Q12HR SC 04/22/24 22:00 04/26/24 08:01 5,000 UNITS Laboratory Results Laboratory Tests 04/26/24 03:23 Chemistry Test 04/26/24 03:23 Calcium Level 8.3 mg/dL (8.7-10.4) L Urinalysis Test 04/16/24 13:10 Urine Color Colorless (Yellow) Urine Clarity Turbid (Clear) H Urine pH 5.5 (5.0-9.0) Urine Specific [place] 1.011 (1.001-1.035) Urine Protein Trace (Negative) H Urine Ketones Negative (Negative) Urine Blood 2+ /uL (Negative) H Urine Nitrite Negative (Negative) Urine Bilirubin Negative (Negative) Urine Urobilinogen Normal mg/dL (Negative) Urine Leukocyte Esterase 3+ /uL (Negative) Urine RBC 18 /hpf (0 - 4) Urine WBC 179 /hpf (0 - 5) Urine WBC Clumps Present /hpf (None Seen) Urine Squamous Epithelial Cells Few /hpf (<5) Urine Bacteria Few /hpf (None Seen) H Urine Mucus Few (None Seen) Urine Yeast (Budding) Many /hpf (None Seen) Urine Osmolality 375 mOsm/kg Urine Glucose Normal mg/dL (Normal) Blood Gas Results Test 04/26/24 07:09 Arterial Blood pH 7.425 (7.350-7.450) FiO2 % 30.0 Microbiology Microbiology Date/Time Source Procedure Growth Status 04/22/24 18:03 Urine - [place] Urine Culture - Final Yeast, not Arlet albicans Complete 04/22/24 15:16 Blood Blood Culture - Preliminary NO GROWTH AFTER 72 HOURS OF INCUBATION. Resulted 04/18/24 15:02 Sputum Gram Stain - Final Complete 04/18/24 15:02 Respiratory Culture - Final Yeast, not Arlet albicans Complete 04/08/24 08:02 Thoracic Fluid Gram Stain - Final Complete 04/08/24 08:02 Thoracic Fluid Anaerobic Culture - Final Complete 04/08/24 08:02 Thoracic Fluid Aerobic Culture - Final Complete 04/01/24 11:19 Nose MRSA Screen - Final Complete Assessment/Plan Assessment/Plan Neurology Sedation -currently on midazolam and fentanyl Respiratory Acute hypoxic respirtory failure likel due to right-sided pleural effusion/empyema and consolidation on right middle and lower lobe -on mechanical ventilation: Respiratory rate 16, tidal volume 500, FiO2 30%, peep 5 cm H2O -presence of chest tube: Minimal drainage, no air leak. -chest x-ray on 04/22/2022: Right-sided pleural effusion, right lower lobe opacification. -IV antibiotic with Zosyn plus micafungin -CT of the chest and abdomen showed moderate partial loculated right pleural effusion and consolidation on right middle/lower lobes. Mild cardiomegaly and interstitial pulmonary edema. It also showed right hydronephrosis with 1.9 cm calculus into the right UPJ. There is also a 2.6 cm staghorn appearing calculus causing mid to lower pole left hydronephrosis. -Respiratory culture: Yeast, not Arlet on 04/17/2024. Repeat culture pending. -CT chest(04/22/24):1. Moderate intermediate density right perinephric fluid extending into the bilateral extrarenal pelvis and also to a lesser extent in the peritoneal cavity, which could reflect retroperitoneal hematoma. Evaluation for active bleeding limited on this examination. 2. Moderate partially loculated right pleural effusion with a right thoracostomy tube terminating in the anterior medial right upper lobe. 3. Development of a small amount of air in the right pleural space at the level of the right middle lobe concordant with pneumothorax. 4. Bilateral renal calculi with a staghorn appearing calculus on the left. 5. Dependent consolidations of the vpifl-jxfumny-sxvl-left lower lobes which could reflect atelectasis and/or pneumonia (which can be on the basis of aspiration. 6. Mild cardiomegaly, mild aortic valve calcifications and moderate coronary artery calcifications. Mild Interstitial pulmonary edema. -Underwent tracheostomy (04/23/24) -Surgical consultation for Thoracotomy -Vent setting:RR reduce to 18, TV500, fio2 30, peep 5. Septic shock in the setting of loculated right-sided pleural effusion and pneumonia -continue management of acute respiratory failure likely due to empyema. -vasopressor with norepinephrine - continue zosyn -Respiratory culture positive for yeast on 04/17/2024. -Stoped bumex drip and Dopamin S/P Tracheostomy (04/23/24) Cardiology Acute on chronic systolic/diastolic heart failure -echocardiogram is showing an LVEF of 55-60% with increased RVSP at 48 mmHg and no pericardial effusion -Continue monitor I/O -repeat x ray In AM NSTEMI type II likely due to above -continue current management. -CAD: CNA PER DIEM of mid LAD (considered old) with full of thrombus. s/p balloon angioplasty with minimal / partial result Atrial fibrilation with RVR: Rate controlled -continue amiodarone 200 mg p.o. b.i.d. -heparin 5000 IU BID -Cardiology on board Nephrology Hypernatremia resolved - Discontinue free water 200 mL q.6 via G-tube -repeat sodium level in a.m. Bilateral hydronephrosis with left-sided staghorn calculi and right UVJ calculi -CT scan of the chest and abdomen showed right hydronephrosis with 1.9 cm calculus into the right UPJ, there was also a 2.6 cm staghorn appearing calculus causing mid to lower pole left hydronephrosis. -nephrology on board -drainage with [place] catheter. -continue I/O monitoring CHRISTOPH due to VMN initially likely in setting of septic shock: Resolved -most likely secondary to bilateral renal calculi -nephrology and urology on board -monitor kidney function Hypokalemia -replenish Nutrition Nepro 15 mL/hour via G-tube. Lines: Right upper arm PICC line: Placed on 04/09/2024 PUD prophylaxis: Protonix DVT prophylaxis: Heparin Goals of care discussed with the daughter and brother at bedside for >31min by Dr. Alin Dawson previously Critical time spent > 78 min Plan discussed with: Spouse Date of Service: Apr 26, 2024 Billing Provider: ISRAEL CALLAWAY MD Common Visit Codes: [id number] CARE 30-74 MIN ISRAEL CALLAWAY MD Apr 26, 2024 17:14
--- NOTE | 2024-04-26 22:31 | DVHPN2 ---
Progress Note - Dictate Date Seen: Apr 26, 2024 Has the PT tested + for MRSA If YES, has PT been informed?: No Medical Necessity Reason Pt with a Central, PICC or Fol: Yes The following are medically ne: Central Line, Whipple Catheter Reason for whipple catheter: Strict I&O Subjective Patient seen and examined at bedside. Sedated, intubated on mechanical ventilator. Overnight events reviewed. vital signs Vital Sign Date Time Temp Pulse Resp B/P (MAP) Pulse Ox O2 Delivery O2 Flow Rate FiO2 04/26/24 22:16 74 20 111/57 (75) 97 30 04/26/24 22:00 Mechanical Ventilator+ 04/26/24 20:00 99.5 99.5 Total Intake and Output 04/25/24 04/25/24 04/26/24 15:00 23:00 07:00 Intake Total 518.504 ml 961.096 ml 864.252 ml Output Total 455 ml 300 ml Balance 518.504 ml 506.096 ml 564.252 ml medications Current Medications Medications Dose Ordered Sig/Destini Route Start Time Stop Time Status Last Admin Dose Admin Heparin Sodium/ Dextrose 250 ml @ 18 mls/hr [id number] IV 03/31/24 23:45 UNV Midazolam HCl 50 ml @ 1 mls/hr Q24H IV 04/01/24 01:30 04/26/24 17:24 6 MLS/HR Ondansetron HCl 4 mg Q4HP PRN IV 04/01/24 05:00 Albumin Human 100 ml @ 100 mls/hr KIRAN PRN IV 04/03/24 07:00 Norepinephrine Bitartrate 32 mg/ Sodium Chloride 250 ml @ 0.469 mls/ hr Q24H IV 04/04/24 06:30 04/26/24 21:54 1.406 MLS/HR Sodium Chloride 10 ml QSHIFT@10,22 IV 04/09/24 22:00 04/26/24 19:22 10 ML Iron Sucrose 110 ml @ 110 mls/hr DAILY@1200 IV 04/10/24 12:00 Hold 04/19/24 13:25 110 MLS/HR Amiodarone HCl 200 mg Q12HR PO 04/10/24 22:00 UNV Amiodarone HCl 200 mg Q12HR PO 04/10/24 22:00 04/26/24 19:21 200 MG Albuterol 2.5 mg Q4HR NEB 04/16/24 18:00 04/26/24 22:16 2.5 MG Ipratropium [place] 0.5 mg Q4HR NEB 04/16/24 18:00 04/26/24 22:16 0.5 MG Budesonide 0.5 mg BID NEB 04/16/24 22:00 04/26/24 19:02 0.5 MG Fentanyl Citrate 250 ml @ 2.5 mls/hr Q24H IV 04/20/24 22:30 04/26/24 17:25 15 MLS/HR Aspirin 81 mg DAILY PO 04/22/24 10:00 04/26/24 07:59 81 MG Enteral Nutritional Formula 1,000 ml 30ML/HR GT 04/21/24 14:45 04/26/24 01:58 1,000 ML Piperacillin Sod/ Tazobactam Sod 100 ml @ 25 mls/hr Q8H IV 04/22/24 00:00 04/26/24 15:16 25 MLS/HR Pantoprazole Sodium 40 mg DAILY IV 04/22/24 10:00 04/26/24 08:00 40 MG Heparin Sodium (Porcine) 5,000 units Q12HR SC 04/22/24 22:00 04/26/24 19:21 5,000 UNITS objective Gen.: Patient lying in bed in medical ICU. Sedated, intubated on mechanical ventilator. Head: Normocephalic, atraumatic. Eyes: PERRLA. Ears: Normal external anatomy. Throat: Endotracheal tube and orogastric tube in place. Neck: Supple, trachea midline. Chest: Transmitted breath sounds bilaterally. Decreased air entry bilaterally. No wheezing. Bibasilar crackles. Cardio vascular: Positive S1, positive S2. Regular rate and rhythm. Abdomen: Positive bowel sounds in all 4 quadrants. Soft, nontender, nondistended. : Whipple in place. Normal external genitalia. Rectal: Deferred Skin: Warm, dry. Intact. Extremities: 2+ radial pulses bilaterally. No lower extremity edema. Neuro: Sedated. laboratory and microbiology Laboratory Tests 04/26/24 03:23 Test 04/26/24 03:23 Range/Units Serum Glucose 104 74-106 mg/dL Assessment/Plan Impression: Acute hypoxic respiratory failure On mechanical ventilator Right-sided pleural effusion Pneumonia of the right middle and lower lobes, likely Gram-negative Interstitial pulmonary edema Sepsis due to empyema Acute on chronic systolic/diastolic congestive heart failure Atrial fibrillation with RVR Bilateral hydronephrosis Acute kidney injury likely postobstructive nephropathy Events: Patient remains on mechanical ventilation. AC mode with RR 16, VT 500, PEEP of 5, FiO2 30% Remains on sedation with fentanyl and Versed. On pressors for hemodynamic support. On Levophed 3 mcg/min Titrate to keep MAP above 65 mmHg/SBP above 90 mmHg. Improved pressor requirements Heparin drip Continue abx Amiodarone PO Monitor hemoglobin - stable at 8.0 g/dl. Monitor WBC Monitor renal function Monitor electrolytes, supplement as necessary Hypernatremia - sodium 146. Nutritional support with tube feeds Plan for thoracotomy on Sunday Rest of plan as noted below. Plan: s/p intubation on mechanical ventilator AC mode with RR 16, VT 500, PEEP of 5, FiO2 30% CXR image and report reviewed. ABG reviewed. On assist control Titrate FIO2 to keep O2 saturation above 92%. VAP bundle Daily ABG and CXR while intubated. Sedate for ventilatory synchrony Right chest tube in place. Monitor chest tube output On pressors for hemodynamic support. Titrate to keep MAP above 65 mmHg/SBP above 90 mmHg. Continue antibiotics. WBC count within normal limits. Represent new onset rash, IV steroids and IV Benadryl were initiated. Monitor renal function due to Acute kidney injury. Monitor electrolytes. Supplement as necessary. Nutritional support. Accucheks, ISS. GI/DVT prophylaxis. Condition: Critical Prognosis: Poor given multiple comorbidities. Rest of plan per hospitalist and other consultants. A total of 35 minutes of critical care time was spent reviewing the patient record, examining the patient, making a diagnostic and therapeutic plan, discussing this plan with the medical personnel, following up on diagnostic studies and following the patient for clinical stability excluding any and all procedures. At least 50% of this time was spent in direct, [id number] contact. Thank you Dr Mihir Hannon for allowing me to participate in this patient's care. Further recommendations will depend on patient's clinical course. Please do not hesitate to contact me if you have any questions or concerns. This medical document was created using an electronic medical record system with [employer] system. Although this document has been carefully reviewed, there may still be some phonetic and typographical errors. These areas are purely typographical due to imperfections of the software programs, and do not reflect any compromise in the patient's medical care. Dietary Evaluation Review Comments: 1) If GI is accessible consider Nepro 1.8 @ 30 ml/hr goal rate as tolerated with current rate of propofol on board. 2) If pt remains NPO >7 days consider TPN to meet at least 75% of estimated needs 3) If pt continues to receive HD, advance pt diet when medically feasible to a Renal Standard diet modified per CYLINDER BATCHER recommendations 4) If HD is discontinued and GFR is within normal range, advance pt diet to a Regular diet, modified per CYLINDER BATCHER recommendations 5)If HD is discontinued and GFR lies within STG 1-4, advance pt diet to a Renal Specific K2,lowphos,HECTOR,2gmNa,80gPro diet 6) If HD is discontinued and if GFR returns to normal levels then ALEXANDRA 1 pkt BID with meals may be considered to aid with wound healing 7) Continue current plan of care Expected Outcomes/Goals: 1) Pt to receive nutrition support within 7 days of NPO status 2) Pt labs to improve 3) Pt diet to advance 4) F/U in 2-3 days Plan discussed with: Other (OLIVA Ansari) Critical Care Time(min): 35 MELBA CRUZ MD Apr 26, 2024 22:31
[2024-04-27] VITALS (113 sets, daily range): BP systolic 86–137; BP diastolic 47–77; PULSE 77–95; RESP 15–26; TEMP 98.2–99.5; O2SAT 89–100
[2024-04-27 04:15] LABS: Basophils # (auto) 0.1 10 ^3/uL (0-0.2); Basophils % (auto) 0.9 % (0.0-2.0); Eosinophils # (auto) 0.3 10 ^3/uL (0-0.8); Eosinophils % (auto) 2.2 % (0.0-7.0); Hematocrit 25.2 % (36.0-46.0); Hemoglobin 7.8 g/dL (12.2-16.2); Lymphocytes % (auto) 8.5 % (10.0-50.0); Mean Corpuscular Hemoglobin 28.3 pg (28.0-32.0); Mean Corpuscular Volume 91.3 fL (80.0-100.0); Monocytes # (auto) 0.5 10 ^3/uL (0-1.3); Monocytes % (auto) 4.7 % (0.0-12.0); Neutrophils # (auto) 9.6 10 ^3/uL (1.6-8.6); Neutrophils % (auto) 83.7 % (37.0-80.0); Platelet Count (auto) 221 10^3/uL (140-450); Red Blood Cells 2.76 10^6/uL (4.0-5.20); White Blood Cell 11.4 10^3/uL (4.4-10.8)
[2024-04-27 04:20] LABS: Red Cell Distribution Width 28.1 % (11.8-14.3)
[2024-04-27 04:27] LABS: Alanine Aminotransferase 29 U/L (7-40); Albumin 3.3 g/dL (3.2-4.8); Alkaline Phosphatase 65 U/L (46-116); Anion Gap 11 (5-15); Aspartate Aminotransferase 24 U/L (13-40); BUN/Creatinine Ratio 23.4 (10.0-20.0); Bilirubin, Total 0.4 mg/dL (0.2-1.0); Blood Urea Nitrogen 33 mg/dL (9-23); Calcium 8.4 mg/dL (8.7-10.4); Carbon Dioxide 25 mmol/L (20-31); Chloride 110 mmol/L (98-107); Glucose 104 mg/dL (74-106); Magnesium 1.9 mg/dL (1.6-2.6); Potassium 3.3 mmol/L (3.5-5.1); Sodium 146 mmol/L (136-145); Total Protein 5.9 g/dL (5.7-8.2)
[2024-04-27] MEDS: POTASSIUM CHL 20MEQ/100ML 100 ML IV ONE (05:42)
--- NOTE | 2024-04-27 06:12 | DVH ---
CHEST RADIOGRAPH Indication:ET AND PROTOCOL Technique: Single frontal view of the chest was obtained Comparison: XY CHEST XRAY 1 VIEW on DOS: 04/26/24, XY CHEST XRAY 1 VIEW on DOS: 04/25/24, XY CHEST XR AY 1 VIEW on DOS: 04/24/24 IMPRESSION: Examination is markedly limited by patient positioning. Tracheostomy tube tip appears at the thoraci c inlet likely within the trachea. There is a right chest tube right PICC line with tip at the superi or vena cava. Bilateral effusions and moderate pulmonary vascular congestion as well as cardiomegaly . No pneumothorax. HS:Y
[2024-04-27 06:17] LABS: Base Excess -2.6 mmol/L (-2.0-3.0)
--- NOTE | 2024-04-27 08:35 | DVHPN2 ---
Progress Note - Dictate Date Seen: Apr 27, 2024 Has the PT tested + for MRSA If YES, has PT been informed?: No Medical Necessity Reason Pt with a Central, PICC or Fol: Yes The following are medically ne: Central Line, Whipple Catheter Reason for whipple catheter: Strict I&O vital signs Vital Sign Date Time Temp Pulse Resp B/P (MAP) Pulse Ox O2 Delivery O2 Flow Rate FiO2 04/27/24 08:12 88 18 113/58 (76) 96 30 04/27/24 06:00 Mechanical Ventilator+ 04/27/24 00:00 99.5 99.5 Total Intake and Output 04/26/24 04/26/24 04/27/24 15:00 23:00 07:00 Intake Total 277.844 ml 709.248 ml 784.033 ml Output Total 400 ml 450 ml Balance 277.844 ml 309.248 ml 334.033 ml medications Current Medications Medications Dose Ordered Sig/Destini Route Start Time Stop Time Status Last Admin Dose Admin Heparin Sodium/ Dextrose 250 ml @ 18 mls/hr [id number] IV 03/31/24 23:45 UNV Midazolam HCl 50 ml @ 1 mls/hr Q24H IV 04/01/24 01:30 04/27/24 00:37 6 MLS/HR Ondansetron HCl 4 mg Q4HP PRN IV 04/01/24 05:00 Albumin Human 100 ml @ 100 mls/hr KIRAN PRN IV 04/03/24 07:00 Norepinephrine Bitartrate 32 mg/ Sodium Chloride 250 ml @ 0.469 mls/ hr Q24H IV 04/04/24 06:30 04/26/24 21:54 1.406 MLS/HR Sodium Chloride 10 ml QSHIFT@,22 IV 04/09/24 22:00 04/26/24 19:22 10 ML Iron Sucrose 110 ml @ 110 mls/hr DAILY@1200 IV 04/10/24 12:00 Hold 04/19/24 13:25 110 MLS/HR Amiodarone HCl 200 mg Q12HR PO 04/10/24 22:00 UNV Amiodarone HCl 200 mg Q12HR PO 04/10/24 22:00 04/26/24 19:21 200 MG Albuterol 2.5 mg Q4HR NEB 04/16/24 18:00 04/27/24 06:08 2.5 MG Ipratropium [place] 0.5 mg Q4HR NEB 04/16/24 18:00 04/27/24 06:08 0.5 MG Budesonide 0.5 mg BID NEB 04/16/24 22:00 04/26/24 19:02 0.5 MG Fentanyl Citrate 250 ml @ 2.5 mls/hr Q24H IV 04/20/24 22:30 04/26/24 17:25 15 MLS/HR Aspirin 81 mg DAILY PO 04/22/24 10:00 04/26/24 07:59 81 MG Enteral Nutritional Formula 1,000 ml 30ML/HR GT 04/21/24 14:45 04/26/24 01:58 1,000 ML Piperacillin Sod/ Tazobactam Sod 100 ml @ 25 mls/hr Q8H IV 04/22/24 00:00 04/27/24 08:00 25 MLS/HR Pantoprazole Sodium 40 mg DAILY IV 04/22/24 10:00 04/26/24 08:00 40 MG Heparin Sodium (Porcine) 5,000 units Q12HR SC 04/22/24 22:00 04/26/24 19:21 5,000 UNITS laboratory and microbiology Laboratory Tests 04/27/24 03:48 Test 04/27/24 03:48 Range/Units Serum Glucose 104 74-106 mg/dL Assessment/Plan Still on Levophed Days ago: There was question about EKG showing STEMI. Patient was intubated again by primary team and taken to [facility]. 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 s/p balloon angioplasty with minimal / partial result s/p thoracoscopy and chest tube placement Patient is a 68-year-old female who was transferred from [facility]. She originally presented to [facility] for shortness of breath ongoing for few days. She is intubated and is being managed in ICU. Information was obtained by reviewing the chart and communicating with staff. Reportedly, she presented with respiratory failure to [facility] (oxygen saturation was 88%) and over there was found to have white blood cell count of 26.6, hemoglobin of 11.1, creatinine of 5.6, potassium of 5.6 and troponin of 1.01. She was given 365 mg of aspirin in [facility]. She did have an episode of atrial fibrillation with RVR with questionable ST changes and was transferred to our facility for further care. She was also found to have right pleural effusion in [facility] and was diagnosed with non-STEMI. s/p tracheostomy, on vent support. Obese. Mucosa is pale. Scattered rhonchi in the lungs is heard. Cardiac: Regular, no thrill/gallop. Abdomen is soft with increased bowel sounds. There is no gross mass. Extremities reveal 1+ edema bilaterally. Available past medical history includes obesity and questionable history of psoriasis. WBC: 25.3 - 23.7 - 20.2 - 20.5 - 17.6 - 18.4 - 19.2 - 19.4 - 22.2 - 16.4 - 16.1 - 19.5 - 14.7 - 12.3 - 9.8 - 10.0 - 8.3 - 9.2 - 10.2 - 11.4 - 10.3 - 12.0 - 13.8 - 16.3 - 18.0 - 18.2 - 16.6 - 15.6 - 11.7 - 9.8 - 9.1 - 11.4 Hemoglobin: 10.8 - 9.1 - 8.5 - 8.4 - 8.8 - 8.6 - 8.9 - 8.1 - 8.4 - 8.1 - 8.1 - 8.2 - 8.0 - 7.4 - 7.4 - 7.7 - 7.1 - 8.0 - 7.5 - 8.8 - 7.1 - 9.0 - 8.9 - 9.0 - 8.4 - 8.4 - 8.4 - 8.1 - 8.2 - 8.0 - 8.0 - 8.0 - 7.8 D-dimer: 3.62 Creatinine: 5.67 - 5.78 - 5.41 - 4.92 - 4.55 - 4.68 - 4.71 - 4.64 - 4.48 - 3.83 - 3.66 - 3.65 - 3.25 - 2.82 - 2.41 - 2.34 - 2.01 - 1.90 - 1.60 - 1.83 - 1.73 - 1.74 - 1.76 - 1.78 - 1.82 - 1.94 - 1.99 - 1.93 - 1.95 - 2.39- 2.09 - 1.81 - 1.54 - 1.41 Potassium: 6.0 - 6.3 - 6.1 - 6.0 - 5.3 - 5.0 - 4.9 - 4.8 - 5.1 - 5.4 - 4.9 - 5.3 - 4.8 - 4.5 - 4.7 - 4.3 - 4.2 - 3.9 - 4.6 - 3.8 - 3.5 - 3.3 - 3.6 - 3.6 - 4.0 - 3.5 - 4.0 - 3.7 - 3.6 - 3.5 - 3.4 - 4.0 - 3.9 - 3.0 - 3.4 - 3.3 - 3.6 - 3.3 Lactic acid: 3.3 - 3.4 - 2.3 - 2.5 - 2.5 - 2.7 - 2.4 - 2.5 - 3.1 - 2.3 - 1.7 - 1.7 TSH: 1.71 BNP: 274.69 - 1944.81 - 373.79 Troponin (high sensitive): 5299 - 0905 - 9644 - 3167 - 664 - 9008 Blood culture: positive Pleural fluid culture: E-coli Digoxin level: 2.09 Stool OB: positive Chest x-ray revealed: IMPRESSION: 1. Moderate right pleural effusion. 2. Cardiomegaly with mild pulmonary vascular congestion bilaterally. Repeat chest x-ray revealed: IMPRESSION: 1. Endotracheal tube and gastric tubes in place as described. 2. Right IJ central venous catheter projects over the lower SVC. 3. Mild cardiomegaly and prominence of the pulmonary vasculature. 4. Moderate to large right pleural effusion. Repeat chest x-ray revealed: IMPRESSION: Similar lung aeration with large right pleural effusion. No pneumothorax seen. Stable lines and tubes. Repeat chest x-ray revealed: IMPRESSION: Similar lung aeration with large right pleural effusion. No pneumothorax seen. Stable lines and tubes. Repeat chest xry revealed: Lines and tubes: ET in the mid thoracic trachea. NG crosses midline. Right CVC is stable. Left HD catheter projects over the mediastinum. Cardiomediastinal silhouette: Enlarged Pulmonary vasculature: prominent Lung expansion: low Lung airspace: patchy bilateral airspace opacity. Lung interstitium: normal Pleura: Similar large right effusion. Pneumothorax: no Bones: Unremarkable Other: no IMPRESSION: Lines and tubes, as above. Similar lung aeration bilaterally with a right pleural effusion and patchy airspace opacities. Repeat chest xry revealed: IMPRESSION: 1. Stable position of the support lines and tubes. 2. Interstitial and alveolar opacities. Repeat chest xry revealed: IMPRESSION: Unchanged multifocal airspace disease. Small to moderate right pleural effusion ; possibly loculated. Repeat chest xry revealed: IMPRESSION: Lines and tubes in satisfactory position. No significant interval change. Repeat chest xry revealed: IMPRESSION: 1. Support lines and tubes in appropriate position. 2. Pulmonary vascular congestion. 3. Bilateral pleural effusions, right greater than left. Repeat chest xry revealed: IMPRESSION: 1. Support lines and tubes in appropriate position. 2. Pulmonary vascular congestion. 3. Bilateral pleural effusions, right greater than left. Repeat chest xry revealed: IMPRESSION: Interval placement of right chest tube which projects deep into the right hilar region. Repeat chest xry revealed: IMPRESSION: No interval change Repeat chest xry revealed: Findings/IMPRESSION: Right IJ CVC terminating in the SVC. Endotracheal tube projected 5 cm superior to the mili. Enteric tube projected below the GE junction. Right-sided PICC projects terminating near the cavoatrial junction. Small bilateral pleural effusions and/or atelectasis with superimposed infection not excluded. Repeat chest xry revealed: MPRESSION: 1. Bilateral pleural effusions and airspace disease right greater than left. Repeat chest xry revealed: IMPRESSION: 1. Endotracheal tube terminates 6.0 cm above the mili, previously 3.1 cm above the mili. Otherwise, No significant interval change. Repeat chest xry revealed: IMPRESSION: 1. Endotracheal tube terminates 6.0 cm above the mili, previously 3.1 cm above the mili. Otherwise, No significant interval change. Repeat chest xry revealed: IMPRESSION: Lines and tubes in satisfactory position. No significant interval change. Repeat chest xry revealed: IMPRESSION: Lines and tubes in satisfactory position. No significant interval change. Repeat chest xry revealed: IMPRESSION: Lines and tubes in satisfactory position. No significant interval change. Repeat chest xry revealed: IMPRESSION: Lines and tubes in satisfactory position. No significant interval change. Repeat chest xry revealed: IMPRESSION: Endotracheal tube projects in appropriate position. Otherwise no significant change Repeat chest xry revealed: FINDINGS: Lines and Tubes: Right PICC and enteric catheter and right chest tube in satisfactory position. Endotracheal tube projects 3.8 cm above the level of the mili. Lungs: Bibasilar opacities. Pleura: Possible small right pleural effusion. No pneumothorax. Cardiomediastinal contours: Unremarkable Bones: Unremarkable IMPRESSION: No significant change compared to prior exam. Repeat chest xry revealed: IMPRESSION: Lines and tubes in satisfactory position. No significant interval change. Repeat chest xry revealed: IMPRESSION: 1. Bibasilar opacities representing pleural effusions and airspace disease similar to prior study. 2. Satisfactory position of the support lines and tubes. Repeat chest xry revealed: IMPRESSION: 1. Stable appearance of the chest. Unchanged position of the support lines and tubes. Repeat chest xry revealed: Lines and Tubes: - Tracheostomy in satisfactory position - Enteric catheter in satisfactory position - Right PICC (Peripherally Inserted Central Catheter) in satisfactory position - Right chest tube in satisfactory position Lungs: - Diffuse pulmonary vascular congestion Pleura: - Possible small bilateral pleural effusions Cardiomediastinal contours: - Unremarkable Bones: Unremarkable IMPRESSION: Tracheostomy in satisfactory position. No other significant interval change. Repeat chest xry revealed: IMPRESSION: 1. Stable pulmonary congestion, patchy right mid to lower lung zone opacities. 2. Stable position of the support lines and tubes. Repeat chest xry revealed: IMPRESSION: Lines and tubes in satisfactory position. No significant interval change. Repeat chest xry revealed: IMPRESSION: Lines and tubes in satisfactory position. No significant interval change. Repeat chest xry revealed: IMPRESSION: Examination is markedly limited by patient positioning. Tracheostomy tube tip appears at the thoracic inlet likely within the trachea. There is a right chest tube right PICC line with tip at the superior vena cava. Bilateral effusions and moderate pulmonary vascular congestion as well as cardiomegaly. No pneumothorax. Renal ultrasound revealed: IMPRESSION: 1. Right kidney measures 13.4 cm. Decreased cortical thickness on the right. 2. Left kidney measures 10.2 cm. 3. No hydronephrosis on the right grade 1 hydronephrosis on the left. 4. Bilateral renal calculi. CT scan of the chest/abdomen and pelvis revealed: IMPRESSION: 1. Moderate partially loculated right pleural effusion and consolidations in the right middle and lower lobes which could be pneumonia and/or atelectasis. 2. Mild cardiomegaly, mild interstitial pulmonary edema, and body wall edema. 3. There is a 1.9 cm calculus in the right UPJ with mild right hydronephrosis 4. There is a 2.6 cm somewhat staghorn appearing calculus in the left renal pelvis and UPJ causing mild predominantly mid to lower pole left hydronephrosis. Mild soft tissue stranding about the left renal pelvis which could be due to obstruction or superimposed infection. Correlate with urinalysis. 5. Partial duplication of the left renal collecting system without hydronephrosis in the upper pole. 6. Moderate right perinephric, right retroperitoneal, and bilateral extraperitoneal pelvis low-density fluid and very mild left retroperitoneal low-density fluid. This could be fluid related to bilateral renal obstructions and forniceal ruptures versus evolved retroperitoneal hematoma. This is suboptimally evaluated without intravenous contrast. 7. Fluid-filled small and large bowel loops which may be physiologic or related to enterocolitis and could be manifesting as loose stools and/or diarrhea. 8. Prominent endometrium measuring at least 2.8 cm, suboptimally evaluated by CT. Recommend characterization with nonemergent pelvic ultrasound if clinically indicated. 9. Mild hepatosplenomegaly. 10. Moderate three-vessel calcified coronary artery disease and mild aortic valve calcification. 11. Right IJ central venous catheter in place terminating in the low SVC. 12. Small soft tissue stranding in the right supraclavicular neck which could be blood products. 13. Endotracheal tube terminates above the mili. Repeat CT of chest / abdomen and pelvis revealed: IMPRESSION: 1. Moderate intermediate density right perinephric fluid extending into the bilateral extrarenal pelvis and also to a lesser extent in the peritoneal cavity, which could reflect retroperitoneal hematoma. Evaluation for active bleeding limited on this examination. 2. Moderate partially loculated right pleural effusion with a right thoracostomy tube terminating in the anterior medial right upper lobe. 3. Development of a small amount of air in the right pleural space at the level of the right middle lobe concordant with pneumothorax. 4. Bilateral renal calculi with a staghorn appearing calculus on the left. 5. Dependent consolidations of the tooko-[id number]-ubiw-left lower lobes which could reflect atelectasis and/or pneumonia (which can be on the basis of aspiration. 6. Mild cardiomegaly, mild aortic valve calcifications and moderate coronary artery calcifications. Mild Interstitial pulmonary edema. CT of the head revealed: IMPRESSION: 1. No acute intracranial abnormality. 2. Generalized cerebral volume loss and mild chronic microvascular ischemic change. 3. Partially imaged endotracheal tube. Chest ultrasound revealed: Findings/Impression: There is a trace bilateral pleural effusion. Thoracentesis: FINDINGS: Moderate size, complex and septated right pleural effusion. Aspirated fluid is thick and green in consistency. IMPRESSION: Right thoracentesis with 250 mL removed for laboratory analysis. EKG in [facility] revealed sinus tachycardia, poor R-wave progression old inferior wall IL. later EKG revealed atrial fibrillation with RVR. Repeat EKGs questioned STEMI. but resolved later. Telemetry reveals sinus rhythm, occasions of A-fib with RVR, SVT Echocardiogram revealed: Technically limited study secondary to poor acoustic windows. Left ventricle: Left ventricle was normal-sized. Mild concentric left ventricular hypertrophy was seen. LVEF was 55-60%. No gross wall motion abnormality was observed, but its presence can not be ruled out on the basis of this study. Right ventricle is mildly dilated with normal systolic function. Left atrium was mildly dilated. Right atrium was normal-sized. Aortic valve was trileaflet. There was no aortic insufficiency. There was aortic sclerosis with no stenosis. There was trivial mitral/tricuspid regurgitation. Pulmonary valve was not well visualized. Right ventricular systolic pressure was assessed around 48 mm Hg. There was no pericardial effusion. Left heart cath revealed: One-vessel coronary artery disease, HEELER MACHINE of mid LAD, Attempted to open up the LAD HEELER MACHINE, partially/minimally successful (status post balloon angioplasty). LVEF of 25% (dilated LV). Cardiac suggestion for management: Dual antiplatelet therapy (loaded with aspirin and Plavix). Guideline directed medical therapy for systolic heart failure Repeat echo revealed: Technically limited study secondary to poor acoustic windows. Left ventricle: Concentric left ventricular hypertrophy was seen anteroapical hypokinesia was seen. The LVEF was around 40%. Right ventricular was normal sized with normal systolic function. Atria were not well-visualized. Aortic valve: Aortic valve was not well visualized. There was no aortic stenosis/insufficiency. Mild mitral/tricuspid regurgitation was observed. Pulmonary valve was not well visualized. Right ventricular systolic pressure was assessed around 35 mm Hg. There was no pericardial effusion. Patient is a 68-year-old morbidly obese patient who presented with respiratory failure to the hospital. Presentation is in favor of sepsis/septic shock. Multiorgan failure is observed. She is intubated and on vent support. She is on multiple pressor support. Life findings are in favor of acute renal failure. She also is known to have nephrolithiasis with history of staghorn calculi. Cardiac-ceballos, the patient did have episode of atrial fibrillation with RVR. She is found to have increased troponin. Presentation questions non-STEMI and possibly type 2 ischemia. Recognizing the presentation, ischemic workup should be postponed after clinical stability (only if patient recovers higher brain function). Is being followed by Nephrology. Had episodes of tachyarrhythmia. Loaded with Digoxin. Positive cultures. Repeated a-fib with RVR. Was evaluated by Interventional Cardiology car construction superintendent for STEMI (not considered STEMI). 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 s/p balloon angioplasty with minimal / partial result s/p tracheostomy Cardiac suggestion for management: Manage in ICU Follow-up electrolytes and kidney function tests and correct abnormalities Pressure support to keep mean arterial pressure above 65 Amiodarone oral/O mg BID Daily aspirin (81 mg daily) s/p thoracoscopy and chest tube placement s/p tracheostomy To go for Thoracotomy this coming week IV metoprolol PRN for a-fib with RVR episodes. Sepsis workup and management as per primary team Evaluation and management of respiratory failure as per primary team/Pulmonary Evaluation and management of nephrolithiasis/hydronephrosis as per primary/Urology Evaluation and management of acute renal failure as per Nephrology Further evaluation and management as per above and clinical course. A total of 75 minutes was spent reviewing the patient record, examining the patient, making a diagnostic and therapeutic plan, discussing this plan with medical personnel, following up on diagnostic studies and following the patient for clinical stability excluding any and all procedures. At least 50% of this time was spent in direct, [id number] contact. Thank you for allowing me to participate in this patient's care. Further recommendations will depend on patient's clinical course. Please do not hesitate to contact me if you have any questions or concerns. This medical document was created using electronic medical record system with [employer] computerized dictation system. Although this document has been carefully reviewed, there may still be some phonetic and typographical errors. These areas are purely typographical due to the imperfection of the software programs, and do not reflect any compromise in the patient's medical care. Dietary Evaluation Review Comments: 1) If GI is accessible consider Nepro 1.8 @ 30 ml/hr goal rate as tolerated with current rate of propofol on board. 2) If pt remains NPO >7 days consider TPN to meet at least 75% of estimated needs 3) If pt continues to receive HD, advance pt diet when medically feasible to a Renal Standard diet modified per WORKFORCE PLANNING ANALYST recommendations 4) If HD is discontinued and GFR is within normal range, advance pt diet to a Regular diet, modified per WORKFORCE PLANNING ANALYST recommendations 5)If HD is discontinued and GFR lies within STG 1-4, advance pt diet to a Renal Specific K2,lowphos,HECTOR,2gmNa,80gPro diet 6) If HD is discontinued and if GFR returns to normal levels then ALEXANDRA 1 pkt BID with meals may be considered to aid with wound healing 7) Continue current plan of care Expected Outcomes/Goals: 1) Pt to receive nutrition support within 7 days of NPO status 2) Pt labs to improve 3) Pt diet to advance 4) F/U in 2-3 days Plan discussed with: Other (nurse) HERMINIO JOHNSON MD Apr 27, 2024 08:35
[2024-04-27] MEDS: NOREPINEPHRINE 8 MG/250ML KIT 250 ML IV SCH (16:37)
--- NOTE | 2024-04-27 17:47 | DVHPN2 ---
Subjective Patient is 68-year-old female who was brought to the hospital from [facility] for higher level of care. Patient was initially treated facility for shortness of breath and was transferred to our hospital. During initial ED evaluation patient found to be tachypneic with severe respiratory failure, atrial fibrillation. Initially patient required oxygenation via non- rebreather mask however patient intubated to protect airway. Patient started on IV antibiotic, requiring vasopressor and amiodarone drip initially. With further evaluation chest ultrasound showed bilateral pleural effusion, CT scan of chest and abdomen was performed which showed partially loculated right pleural effusion and consolidation in right middle and lower lobe. Patient also found to have right hydronephrosis with 1.9 cm calculus into right UPJ. Radiologist performed right-sided thoracentesis which removed 250 mL of fluid. L patient was placed with right-sided chest tube for loculated empyema. Patient underwent right thoracoscopy with evacuation empyema with insertion of chest tube. Patient was extubated on April 16/2024. Patient was reintubated back given possible STEMI and transferred to left heart catheterization. Clod Puller did angioplasty for complete total occlusion of mid LAD. Started on heparin drip, aspirin and Plavix. Patient continued to have x-ray findings with right lower lobe opacity. Continued on antibiotic. Continued require vasopressors, chest type continued to drain. No air leak. ROS: Not obtained as patient is intubated Micro: Urine culture growing yeast, respiratory culture growing yeast Today patient was seen and examined at bedside. Patient continued on requiring vasopressors, IV antibiotic. NO night event. ROS not obtain given sedated. Reviewed: Care Plan, H&P, Labs, Medications, Previous Orders, Radiology, Other (Consultants) Changes from previous H/P or p: No Changes Objective Vitals Vital Signs Date Time Temp Pulse Resp B/P (MAP) Pulse Ox O2 Delivery O2 Flow Rate FiO2 04/27/24 17:00 80 20 111/56 (74) 96 04/27/24 16:15 98.3 98.3 04/27/24 16:00 Mechanical Ventilator+ 30 30 Intake/Output Intake and Output 04/27/24 05:00 Intake Total 1754.532 ml Output Total 700 ml Balance 1054.532 ml Intake Oral 640 ml IV Total 832.532 ml Tube Feeding 282 ml Output Urine Total 700 ml Chest Tube Drainage Total 0 ml # Bowel Movements 2 General Appearance: Other (Intubated and sedated) HEENT: Atraumatic Lungs: Other (Few crackles bilateral lungs) Cardiovascular: Regular rate Abdomen: Soft Skin: Other (Mostly gone the macular rash in the abdominal and chest in area. Also redness in the lower abdominal folds and inguinal areas are better) Medications Current Medications Medications Dose Ordered Sig/Destini Route Start Time Stop Time Status Last Admin Dose Admin Heparin Sodium/ Dextrose 250 ml @ 18 mls/hr [id number] IV 03/31/24 23:45 UNV Midazolam HCl 50 ml @ 1 mls/hr Q24H IV 04/01/24 01:30 04/27/24 09:57 5 MLS/HR Ondansetron HCl 4 mg Q4HP PRN IV 04/01/24 05:00 Albumin Human 100 ml @ 100 mls/hr KIRAN PRN IV 04/03/24 07:00 Sodium Chloride 10 ml QSHIFT@ IV 04/09/24 22:00 04/27/24 09:50 10 ML Iron Sucrose 110 ml @ 110 mls/hr DAILY@1200 IV 04/10/24 12:00 Hold 04/19/24 13:25 110 MLS/HR Amiodarone HCl 200 mg Q12HR PO 04/10/24 22:00 UNV Amiodarone HCl 200 mg Q12HR PO 04/10/24 22:00 04/27/24 09:49 200 MG Albuterol 2.5 mg Q4HR NEB 04/16/24 18:00 04/27/24 13:47 2.5 MG Ipratropium [place] 0.5 mg Q4HR NEB 04/16/24 18:00 04/27/24 13:48 0.5 MG Budesonide 0.5 mg BID NEB 04/16/24 22:00 04/27/24 10:03 0.5 MG Fentanyl Citrate 250 ml @ 2.5 mls/hr Q24H IV 04/20/24 22:30 04/27/24 09:51 15 MLS/HR Aspirin 81 mg DAILY PO 04/22/24 10:00 04/27/24 09:50 81 MG Enteral Nutritional Formula 1,000 ml 30ML/HR GT 04/21/24 14:45 04/26/24 01:58 1,000 ML Piperacillin Sod/ Tazobactam Sod 100 ml @ 25 mls/hr Q8H IV 04/22/24 00:00 04/27/24 16:31 25 MLS/HR Pantoprazole Sodium 40 mg DAILY IV 04/22/24 10:00 04/27/24 09:49 40 MG Heparin Sodium (Porcine) 5,000 units Q12HR SC 04/22/24 22:00 04/27/24 09:50 5,000 UNITS Norepinephrine Bitartrate 250 ml @ 1.875 mls/ hr Q24H IV 04/27/24 14:00 04/27/24 16:37 3.75 MLS/HR Laboratory Results Laboratory Tests 04/27/24 03:48 Chemistry Test 04/27/24 03:48 Albumin 3.3 g/dL (3.2-4.8) Calcium Level 8.4 mg/dL (8.7-10.4) L Magnesium Level 1.9 mg/dL (1.6-2.6) Total Protein 5.9 g/dL (5.7-8.2) LFT Test 04/27/24 03:48 Alanine Aminotransferase (ALT) 29 U/L (7-40) Alkaline Phosphatase 65 U/L (46-116) Aspartate Amino Transferase (AST) 24 U/L (13-40) Total Bilirubin 0.4 mg/dL (0.2-1.0) Urinalysis Test 04/16/24 13:10 Urine Color Colorless (Yellow) Urine Clarity Turbid (Clear) H Urine pH 5.5 (5.0-9.0) Urine Specific [place] 1.011 (1.001-1.035) Urine Protein Trace (Negative) H Urine Ketones Negative (Negative) Urine Blood 2+ /uL (Negative) H Urine Nitrite Negative (Negative) Urine Bilirubin Negative (Negative) Urine Urobilinogen Normal mg/dL (Negative) Urine Leukocyte Esterase 3+ /uL (Negative) Urine RBC 18 /hpf (0 - 4) Urine WBC 179 /hpf (0 - 5) Urine WBC Clumps Present /hpf (None Seen) Urine Squamous Epithelial Cells Few /hpf (<5) Urine Bacteria Few /hpf (None Seen) H Urine Mucus Few (None Seen) Urine Yeast (Budding) Many /hpf (None Seen) Urine Osmolality 375 mOsm/kg Urine Glucose Normal mg/dL (Normal) Blood Gas Results Test 04/27/24 06:10 Arterial Blood pH 7.449 (7.350-7.450) FiO2 % 30.0 Microbiology Microbiology Date/Time Source Procedure Growth Status 04/22/24 18:03 Urine - [place] Urine Culture - Final Yeast, not Arlet albicans Complete 04/22/24 15:16 Blood Blood Culture - Final NO GROWTH AFTER 5 DAYS OF INCUBATION. Complete 04/18/24 15:02 Sputum Gram Stain - Final Complete 04/18/24 15:02 Respiratory Culture - Final Yeast, not Arlet albicans Complete 04/08/24 08:02 Thoracic Fluid Gram Stain - Final Complete 04/08/24 08:02 Thoracic Fluid Anaerobic Culture - Final Complete 04/08/24 08:02 Thoracic Fluid Aerobic Culture - Final Complete 04/01/24 11:19 Nose MRSA Screen - Final Complete Assessment/Plan Assessment/Plan Neurology Sedation -currently on midazolam and fentanyl Respiratory Acute hypoxic respirtory failure likel due to right-sided pleural effusion/empyema and consolidation on right middle and lower lobe -on mechanical ventilation: Respiratory rate 16, tidal volume 500, FiO2 30%, peep 5 cm H2O -presence of chest tube: Minimal drainage, no air leak. -chest x-ray on 04/22/2022: Right-sided pleural effusion, right lower lobe opacification. -IV antibiotic with Zosyn plus micafungin -CT of the chest and abdomen showed moderate partial loculated right pleural effusion and consolidation on right middle/lower lobes. Mild cardiomegaly and interstitial pulmonary edema. It also showed right hydronephrosis with 1.9 cm calculus into the right UPJ. There is also a 2.6 cm staghorn appearing calculus causing mid to lower pole left hydronephrosis. -Respiratory culture: Yeast, not Arlet on 04/17/2024. Repeat culture pending. -CT chest(04/22/24):1. Moderate intermediate density right perinephric fluid extending into the bilateral extrarenal pelvis and also to a lesser extent in the peritoneal cavity, which could reflect retroperitoneal hematoma. Evaluation for active bleeding limited on this examination. 2. Moderate partially loculated right pleural effusion with a right thoracostomy tube terminating in the anterior medial right upper lobe. 3. Development of a small amount of air in the right pleural space at the level of the right middle lobe concordant with pneumothorax. 4. Bilateral renal calculi with a staghorn appearing calculus on the left. 5. Dependent consolidations of the odloc-xnbkotd-fejd-left lower lobes which could reflect atelectasis and/or pneumonia (which can be on the basis of aspiration. 6. Mild cardiomegaly, mild aortic valve calcifications and moderate coronary artery calcifications. Mild Interstitial pulmonary edema. -Underwent tracheostomy (04/23/24) -Surgical consultation for Thoracotomy -Vent setting:RR reduce to 18, TV500, fio2 30, peep 5. Septic shock in the setting of loculated right-sided pleural effusion and pneumonia -continue management of acute respiratory failure likely due to empyema. -vasopressor with norepinephrine - continue zosyn -Respiratory culture positive for yeast on 04/17/2024. -Stoped bumex drip and Dopamin S/P Tracheostomy (04/23/24) Cardiology Acute on chronic systolic/diastolic heart failure -echocardiogram is showing an LVEF of 55-60% with increased RVSP at 48 mmHg and no pericardial effusion -Continue monitor I/O -repeat x ray In AM NSTEMI type II likely due to above -continue current management. -CAD: PLATE GRINDER of mid LAD (considered old) with full of thrombus. s/p balloon angioplasty with minimal / partial result Atrial fibrilation with RVR: Rate controlled -continue amiodarone 200 mg p.o. b.i.d. -heparin 5000 IU BID -Cardiology on board Nephrology Hypernatremia resolved - Discontinue free water 200 mL q.6 via G-tube -repeat sodium level in a.m. Bilateral hydronephrosis with left-sided staghorn calculi and right UVJ calculi -CT scan of the chest and abdomen showed right hydronephrosis with 1.9 cm calculus into the right UPJ, there was also a 2.6 cm staghorn appearing calculus causing mid to lower pole left hydronephrosis. -nephrology on board -drainage with [place] catheter. -continue I/O monitoring CHRISTOPH due to VMN initially likely in setting of septic shock: Resolved -most likely secondary to bilateral renal calculi -nephrology and urology on board -monitor kidney function Hypokalemia -replenish Nutrition Nepro 15 mL/hour via G-tube. Lines: Right upper arm PICC line: Placed on 04/09/2024 PUD prophylaxis: Protonix DVT prophylaxis: Heparin Goals of care discussed with the daughter and brother at bedside for >31min by Dr. Alin Dawson previously Critical time spent > 78 min Plan discussed with: Other (nurse) My Orders Orders - ISRAEL CALLAWAY MD Procedure Category Date Status Time Chest Portable XY 04/27/24 Resulted 04:00 Norepinephrine 8 PHA 04/27/24 In Process Mg/250ml Kit 14:00 Date of Service: Apr 27, 2024 Billing Provider: ISRAEL CALLAWAY MD Common Visit Codes: 11429-[id number] CARE 30-74 MIN ISRAEL CALLAWAY MD Apr 27, 2024 17:47
--- NOTE | 2024-04-27 23:55 | DVHPN2 ---
Progress Note - Dictate Date Seen: Apr 27, 2024 Has the PT tested + for MRSA If YES, has PT been informed?: No Medical Necessity Reason Pt with a Central, PICC or Fol: Yes The following are medically ne: Central Line, Whipple Catheter Reason for whipple catheter: Strict I&O Subjective Patient seen and examined at bedside. Sedated, intubated on mechanical ventilator. Overnight events reviewed. vital signs Vital Sign Date Time Temp Pulse Resp B/P (MAP) Pulse Ox O2 Delivery O2 Flow Rate FiO2 04/27/24 23:44 78 20 105/57 (73) 96 30 04/27/24 22:00 Mechanical Ventilator+ 04/27/24 20:00 99.1 99.1 Total Intake and Output 04/26/24 04/26/24 04/27/24 15:00 23:00 07:00 Intake Total 277.844 ml 709.248 ml 805.502 ml Output Total 400 ml 450 ml Balance 277.844 ml 309.248 ml 355.502 ml medications Current Medications Medications Dose Ordered Sig/Destini Route Start Time Stop Time Status Last Admin Dose Admin Heparin Sodium/ Dextrose 250 ml @ 18 mls/hr [id number] IV 03/31/24 23:45 UNV Midazolam HCl 50 ml @ 1 mls/hr Q24H IV 04/01/24 01:30 04/27/24 09:57 5 MLS/HR Ondansetron HCl 4 mg Q4HP PRN IV 04/01/24 05:00 Albumin Human 100 ml @ 100 mls/hr KIRAN PRN IV 04/03/24 07:00 Sodium Chloride 10 ml QSHIFT@22 IV 04/09/24 22:00 04/27/24 21:29 10 ML Iron Sucrose 110 ml @ 110 mls/hr DAILY@1200 IV 04/10/24 12:00 Hold 04/19/24 13:25 110 MLS/HR Amiodarone HCl 200 mg Q12HR PO 04/10/24 22:00 UNV Amiodarone HCl 200 mg Q12HR PO 04/10/24 22:00 04/27/24 21:21 200 MG Albuterol 2.5 mg Q4HR NEB 04/16/24 18:00 04/27/24 22:00 2.5 MG Ipratropium [place] 0.5 mg Q4HR NEB 04/16/24 18:00 04/27/24 22:00 0.5 MG Budesonide 0.5 mg BID NEB 04/16/24 22:00 04/27/24 22:00 0.5 MG Fentanyl Citrate 250 ml @ 2.5 mls/hr Q24H IV 04/20/24 22:30 04/27/24 09:51 15 MLS/HR Aspirin 81 mg DAILY PO 04/22/24 10:00 04/27/24 09:50 81 MG Enteral Nutritional Formula 1,000 ml 30ML/HR GT 04/21/24 14:45 04/26/24 01:58 1,000 ML Piperacillin Sod/ Tazobactam Sod 100 ml @ 25 mls/hr Q8H IV 04/22/24 00:00 04/27/24 23:43 25 MLS/HR Pantoprazole Sodium 40 mg DAILY IV 04/22/24 10:00 04/27/24 09:49 40 MG Heparin Sodium (Porcine) 5,000 units Q12HR SC 04/22/24 22:00 04/27/24 21:21 5,000 UNITS Norepinephrine Bitartrate 250 ml @ 1.875 mls/ hr Q24H IV 04/27/24 14:00 04/27/24 16:37 3.75 MLS/HR objective Gen.: Patient lying in bed in medical ICU. Sedated, intubated on mechanical ventilator. Head: Normocephalic, atraumatic. Eyes: PERRLA. Ears: Normal external anatomy. Throat: Endotracheal tube and orogastric tube in place. Neck: Supple, trachea midline. Chest: Transmitted breath sounds bilaterally. Decreased air entry bilaterally. No wheezing. Bibasilar crackles. Cardio vascular: Positive S1, positive S2. Regular rate and rhythm. Abdomen: Positive bowel sounds in all 4 quadrants. Soft, nontender, nondistended. : Whipple in place. Normal external genitalia. Rectal: Deferred Skin: Warm, dry. Intact. Extremities: 2+ radial pulses bilaterally. No lower extremity edema. Neuro: Sedated. laboratory and microbiology Laboratory Tests 04/27/24 03:48 Test 04/27/24 03:48 Range/Units Serum Glucose 104 74-106 mg/dL Assessment/Plan Impression: Acute hypoxic respiratory failure On mechanical ventilator Right-sided pleural effusion Pneumonia of the right middle and lower lobes, likely Gram-negative Interstitial pulmonary edema Sepsis due to empyema Acute on chronic systolic/diastolic congestive heart failure Atrial fibrillation with RVR Bilateral hydronephrosis Acute kidney injury likely postobstructive nephropathy Events: Patient remains on mechanical ventilation. AC mode with RR 16, VT 500, PEEP of 5, FiO2 30% Remains on sedation with fentanyl and Versed. On pressors for hemodynamic support. On Levophed 2 mcg/min Titrate to keep MAP above 65 mmHg/SBP above 90 mmHg. Improved pressor requirements Heparin drip Continue abx Amiodarone PO Monitor hemoglobin Monitor WBC Monitor renal function Monitor electrolytes, supplement as necessary Hypernatremia - sodium 146. Nutritional support with tube feeds Trach care Chest tube to suction. Plan for thoracotomy on Sunday Rest of plan as noted below. Plan: s/p intubation on mechanical ventilator AC mode with RR 16, VT 500, PEEP of 5, FiO2 30% CXR image and report reviewed. ABG reviewed. On assist control Titrate FIO2 to keep O2 saturation above 92%. VAP bundle Daily ABG and CXR while intubated. Sedate for ventilatory synchrony Right chest tube in place. Monitor chest tube output On pressors for hemodynamic support. Titrate to keep MAP above 65 mmHg/SBP above 90 mmHg. Continue antibiotics. WBC count within normal limits. Represent new onset rash, IV steroids and IV Benadryl were initiated. Monitor renal function due to Acute kidney injury. Monitor electrolytes. Supplement as necessary. Nutritional support. Accucheks, ISS. GI/DVT prophylaxis. Condition: Critical Prognosis: Poor given multiple comorbidities. Rest of plan per hospitalist and other consultants. A total of 35 minutes of critical care time was spent reviewing the patient record, examining the patient, making a diagnostic and therapeutic plan, discussing this plan with the medical personnel, following up on diagnostic studies and following the patient for clinical stability excluding any and all procedures. At least 50% of this time was spent in direct, [id number] contact. Thank you Dr Mihir Hannon for allowing me to participate in this patient's care. Further recommendations will depend on patient's clinical course. Please do not hesitate to contact me if you have any questions or concerns. This medical document was created using an electronic medical record system with [employer] system. Although this document has been carefully reviewed, there may still be some phonetic and typographical errors. These areas are purely typographical due to imperfections of the software programs, and do not reflect any compromise in the patient's medical care. Dietary Evaluation Review Comments: 1) If GI is accessible consider Nepro 1.8 @ 30 ml/hr goal rate as tolerated with current rate of propofol on board. 2) If pt remains NPO >7 days consider TPN to meet at least 75% of estimated needs 3) If pt continues to receive HD, advance pt diet when medically feasible to a Renal Standard diet modified per INFORMATION SYSTEMS ARCHITECT recommendations 4) If HD is discontinued and GFR is within normal range, advance pt diet to a Regular diet, modified per INFORMATION SYSTEMS ARCHITECT recommendations 5)If HD is discontinued and GFR lies within STG 1-4, advance pt diet to a Renal Specific K2,lowphos,HECTOR,2gmNa,80gPro diet 6) If HD is discontinued and if GFR returns to normal levels then ALEXANDRA 1 pkt BID with meals may be considered to aid with wound healing 7) Continue current plan of care Expected Outcomes/Goals: 1) Pt to receive nutrition support within 7 days of NPO status 2) Pt labs to improve 3) Pt diet to advance 4) F/U in 2-3 days Plan discussed with: Other (OLIVA Franco) Critical Care Time(min): 35 MELBA CRUZ MD Apr 27, 2024 23:55
[2024-04-28] VITALS (112 sets, daily range): BP systolic 85–125; BP diastolic 40–73; PULSE 66–91; RESP 14–24; TEMP 97.9–98.9; O2SAT 90–99
[2024-04-28 03:42] LABS: Basophils # (auto) 0.1 10 ^3/uL (0-0.2); Eosinophils # (auto) 0.2 10 ^3/uL (0-0.8); Hemoglobin 7.1 g/dL (12.2-16.2); Nucleated Red Blood Cells % 0.1 %
[2024-04-28 03:47] LABS: Eosinophils % (auto) 1.7 % (0.0-7.0); Hematocrit 22.9 % (36.0-46.0); Lymphocytes % (auto) 8.1 % (10.0-50.0); Mean Corpuscular Hemoglobin 28.8 pg (28.0-32.0); Mean Corpuscular Hgb Conc. 31.1 g/dL (32.0-36.0); Mean Corpuscular Volume 92.5 fL (80.0-100.0); Monocytes # (auto) 0.5 10 ^3/uL (0-1.3); Monocytes % (auto) 4.2 % (0.0-12.0); Neutrophils # (auto) 10.5 10 ^3/uL (1.6-8.6); Platelet Count (auto) 192 10^3/uL (140-450); Red Blood Cells 2.48 10^6/uL (4.0-5.20); White Blood Cell 12.3 10^3/uL (4.4-10.8)
[2024-04-28 03:58] LABS: Alanine Aminotransferase 28 U/L (7-40); Alkaline Phosphatase 63 U/L (46-116); Calcium 8.1 mg/dL (8.7-10.4); Carbon Dioxide 24 mmol/L (20-31); Chloride 113 mmol/L (98-107); Glucose 117 mg/dL (74-106); Sodium 148 mmol/L (136-145)
[2024-04-28 03:59] LABS: Anion Gap 11 (5-15); Aspartate Aminotransferase 28 U/L (13-40); BUN/Creatinine Ratio 23.5 (10.0-20.0); Bilirubin, Total 0.4 mg/dL (0.2-1.0); Blood Urea Nitrogen 31 mg/dL (9-23); Total Protein 5.4 g/dL (5.7-8.2)
[2024-04-28 04:17] LABS: INR 1.06 (0.9-1.15); Partial Thromboplastin Time 21.8 SEC (24.5-34.5); Prothrombin Time 11.2 sec (9.3-11.8)
--- NOTE | 2024-04-28 05:04 | DVH ---
CHEST RADIOGRAPH Indication:INTUBATED Technique: Single frontal view of the chest was obtained Comparison: XY CHEST PORTABLE on DOS: 04/27/24 FINDINGS: Lines and Tubes: Tracheostomy tube is unchanged. Right upper extremity PICC terminates in the superi or vena cava. Right chest tube is unchanged. The enteric tube courses below the left hemidiaphragm a nd the tip extends outside the field of view. Lungs: Bilateral pulmonary consolidation similar to prior study. Pleura: No effusion. No pneumothorax. Cardiomediastinal contours: Stable cardiovascular silhouette. Bones: No acute osseous abnormality. IMPRESSION: 1. Support lines and tubes similar to the prior exam. 2. No significant change in bilateral airspace disease.
[2024-04-28] MEDS: MAGNESIUM SULFATE 1GM/100ML 100 ML IV ONE (05:23)
[2024-04-28] MEDS: POTASSIUM CHL 20MEQ/100ML 100 ML IV SCH (05:24)
[2024-04-28] MEDS: ROCURONIUM 10MG/ML 10ML VIAL IV ONE (06:34)
[2024-04-28] MEDS: SUCCINYLCHOLINE CHLORIDE 20 MG/ML 10ML VIAL IV ONE (06:34)
[2024-04-28] MEDS: BUPIVACAINE W/ EPINEPH 0.5% MPF 30ML VIAL IJ ONE (07:06)
[2024-04-28] MEDS ORDERED: D5W/SOD CHL 0.45%/KCL 20MEQ 1,000 ML IV SCH (07:15)
--- NOTE | 2024-04-28 10:21 | DVHPN2 ---
Progress Note Date Seen: Apr 28, 2024 Has the PT tested + for MRSA If YES, has PT been informed?: No Medical Necessity Reason Pt with a Central, PICC or Fol: Yes The following are medically ne: Central Line, Whipple Catheter Reason for whipple catheter: Strict I&O Subjective Review of Systems: RESPIRATORY:Abnormal Other Systems: Patient seen and examined by myself today in follow-up, patient remained intubated on ventilator Objective vital signs Vital Sign Date Time Temp Pulse Resp B/P (MAP) Pulse Ox O2 Delivery O2 Flow Rate FiO2 04/28/24 09:34 74 20 101/58 (72) 98 30 04/28/24 08:00 Mechanical Ventilator+ 04/28/24 04:15 98.9 98.9 Total Intake and Output 04/27/24 04/27/24 04/28/24 15:00 23:00 07:00 Intake Total 265.752 ml 539.00 ml 427.500 ml Output Total 390 ml 250 ml Balance 265.752 ml 149.00 ml 177.500 ml medications Current Medications Medications Dose Ordered Sig/Destini Route Start Time Stop Time Status Last Admin Dose Admin Heparin Sodium/ Dextrose 250 ml @ 18 mls/hr [id number] IV 03/31/24 23:45 UNV Midazolam HCl 50 ml @ 1 mls/hr Q24H IV 04/01/24 01:30 04/28/24 03:02 5 MLS/HR Albumin Human 100 ml @ 100 mls/hr KIRAN PRN IV 04/03/24 07:00 Sodium Chloride 10 ml QSHIFT@10,22 IV 04/09/24 22:00 04/27/24 21:29 10 ML Iron Sucrose 110 ml @ 110 mls/hr DAILY@1200 IV 04/10/24 12:00 Hold 04/19/24 13:25 110 MLS/HR Amiodarone HCl 200 mg Q12HR PO 04/10/24 22:00 UNV Amiodarone HCl 200 mg Q12HR PO 04/10/24 22:00 04/27/24 21:21 200 MG Albuterol 2.5 mg Q4HR NEB 04/16/24 18:00 04/28/24 09:34 2.5 MG Ipratropium [place] 0.5 mg Q4HR NEB 04/16/24 18:00 04/28/24 09:34 0.5 MG Budesonide 0.5 mg BID NEB 04/16/24 22:00 04/28/24 06:29 0.5 MG Fentanyl Citrate 250 ml @ 2.5 mls/hr Q24H IV 04/20/24 22:30 04/28/24 01:31 15 MLS/HR Aspirin 81 mg DAILY PO 04/22/24 10:00 04/27/24 09:50 81 MG Enteral Nutritional Formula 1,000 ml 30ML/HR GT 04/21/24 14:45 04/26/24 01:58 1,000 ML Piperacillin Sod/ Tazobactam Sod 100 ml @ 25 mls/hr Q8H IV 04/22/24 00:00 04/28/24 07:35 25 MLS/HR Pantoprazole Sodium 40 mg DAILY IV 04/22/24 10:00 04/27/24 09:49 40 MG Heparin Sodium (Porcine) 5,000 units Q12HR SC 04/22/24 22:00 04/27/24 21:21 5,000 UNITS Norepinephrine Bitartrate 250 ml @ 1.875 mls/ hr Q24H IV 04/27/24 14:00 04/27/24 16:37 3.75 MLS/HR Potassium Chloride 100 ml @ 50 mls/hr Q2H IV 04/28/24 05:15 04/28/24 11:14 04/28/24 09:35 50 MLS/HR Purified Water 200 ml Q4HR GT 04/28/24 10:00 Potassium Chloride/Dextrose/ Sod Cl 1,000 ml @ 75 mls/hr [id number] IV 04/28/24 08:30 Examination: LUNGS:Normal, CVS:Normal, MSK:Normal laboratory and microbiology Laboratory Tests 04/28/24 03:18 Test 04/28/24 03:18 Range/Units Serum Glucose 117 H 74-106 mg/dL Microbiology Date/Time Source Procedure Growth Status 04/22/24 18:03 Urine - [place] Urine Culture - Final Yeast, not Arlet albicans Complete 04/22/24 15:16 Blood Blood Culture - Final NO GROWTH AFTER 5 DAYS OF INCUBATION. Complete 04/18/24 15:02 Sputum Gram Stain - Final Complete 04/18/24 15:02 Respiratory Culture - Final Yeast, not Arlet albicans Complete 04/08/24 08:02 Thoracic Fluid Gram Stain - Final Complete 04/08/24 08:02 Thoracic Fluid Anaerobic Culture - Final Complete 04/08/24 08:02 Thoracic Fluid Aerobic Culture - Final Complete 04/01/24 11:19 Nose MRSA Screen - Final Complete Problem List/Assessment/Plan Problem List/Assessment/Plan Acute kidney injury due to ATN/hemodynamic from shock, status post intermittent hemodialysis Acute respiratory failure, intubated on ventilator NSTEMI septic shock empyema metabolic acidosis resolved b/l renal stones w/ hydronephrosis morbid obesity hyperkalemia, resolved Hypernatremia due to insensible water loss afib RVR Hypokalemia Recommendations Kidney function slowly is improving Increased urine output IV pressors for blood pressure support Strict I&Os IV antibiotics DC IV fluid KCL replacement free water down NG tube Urology consult We will continue to follow Plan discussed with: Other (Nurse) My Orders My Orders Orders - SWETA CHAND MD Procedure Category Date Status Time Potassium Chl Jace PHA 04/28/24 Verified KCL 10:30 Dietary Evaluation Review Comments: 1) If GI is accessible consider Nepro 1.8 @ 30 ml/hr goal rate as tolerated with current rate of propofol on board. 2) If pt remains NPO >7 days consider TPN to meet at least 75% of estimated needs 3) If pt continues to receive HD, advance pt diet when medically feasible to a Renal Standard diet modified per ENERGY CONSERVATION ENGINEER recommendations 4) If HD is discontinued and GFR is within normal range, advance pt diet to a Regular diet, modified per ENERGY CONSERVATION ENGINEER recommendations 5)If HD is discontinued and GFR lies within STG 1-4, advance pt diet to a Renal Specific K2,lowphos,HECTOR,2gmNa,80gPro diet 6) If HD is discontinued and if GFR returns to normal levels then ALEXANDRA 1 pkt BID with meals may be considered to aid with wound healing 7) Continue current plan of care Expected Outcomes/Goals: 1) Pt to receive nutrition support within 7 days of NPO status 2) Pt labs to improve 3) Pt diet to advance 4) F/U in 2-3 days SWETA CHAND MD Apr 28, 2024 10:21
[2024-04-28] MEDS ORDERED: POTASSIUM CHL 20MEQ/100ML 100 ML IV SCH (10:30)
[2024-04-28 10:34] LABS: Base Excess -1.9 mmol/L (-2.0-3.0)
[2024-04-28] MEDS: D5W/SOD CHL 0.45%/KCL 20MEQ 1,000 ML IV SCH (10:54)
[2024-04-28] MEDS: FREE WATER GT SCH (10:54)
--- NOTE | 2024-04-28 12:18 | DVHPN2 ---
Progress Note - Dictate Date Seen: Apr 28, 2024 Has the PT tested + for MRSA If YES, has PT been informed?: No Medical Necessity Reason Pt with a Central, PICC or Fol: Yes The following are medically ne: Central Line, Whippel Catheter Reason for whipple catheter: Strict I&O vital signs Vital Sign Date Time Temp Pulse Resp B/P (MAP) Pulse Ox O2 Delivery O2 Flow Rate FiO2 04/28/24 12:10 97.9 68 19 102/50 97.9 04/28/24 11:47 99 30 04/28/24 08:00 Mechanical Ventilator+ Total Intake and Output 04/27/24 04/27/24 04/28/24 15:00 23:00 07:00 Intake Total 265.752 ml 539.00 ml 427.500 ml Output Total 390 ml 250 ml Balance 265.752 ml 149.00 ml 177.500 ml medications Current Medications Medications Dose Ordered Sig/Destini Route Start Time Stop Time Status Last Admin Dose Admin Heparin Sodium/ Dextrose 250 ml @ 18 mls/hr [id number] IV 03/31/24 23:45 UNV Midazolam HCl 50 ml @ 1 mls/hr Q24H IV 04/01/24 01:30 04/28/24 03:02 5 MLS/HR Albumin Human 100 ml @ 100 mls/hr KIRAN PRN IV 04/03/24 07:00 Sodium Chloride 10 ml QSHIFT@10,22 IV 04/09/24 22:00 04/28/24 10:53 10 ML Iron Sucrose 110 ml @ 110 mls/hr DAILY@1200 IV 04/10/24 12:00 Hold 04/19/24 13:25 110 MLS/HR Amiodarone HCl 200 mg Q12HR PO 04/10/24 22:00 UNV Amiodarone HCl 200 mg Q12HR PO 04/10/24 22:00 04/28/24 10:53 200 MG Albuterol 2.5 mg Q4HR NEB 04/16/24 18:00 04/28/24 09:34 2.5 MG Ipratropium Eudora 0.5 mg Q4HR NEB 04/16/24 18:00 04/28/24 09:34 0.5 MG Budesonide 0.5 mg BID NEB 04/16/24 22:00 04/28/24 06:29 0.5 MG Fentanyl Citrate 250 ml @ 2.5 mls/hr Q24H IV 04/20/24 22:30 04/28/24 01:31 15 MLS/HR Aspirin 81 mg DAILY PO 04/22/24 10:00 04/27/24 09:50 81 MG Enteral Nutritional Formula 1,000 ml 30ML/HR GT 04/21/24 14:45 04/26/24 01:58 1,000 ML Piperacillin Sod/ Tazobactam Sod 100 ml @ 25 mls/hr Q8H IV 04/22/24 00:00 04/28/24 07:35 25 MLS/HR Pantoprazole Sodium 40 mg DAILY IV 04/22/24 10:00 04/28/24 10:53 40 MG Heparin Sodium (Porcine) 5,000 units Q12HR SC 04/22/24 22:00 04/28/24 11:04 5,000 UNITS Norepinephrine Bitartrate 250 ml @ 1.875 mls/ hr Q24H IV 04/27/24 14:00 04/27/24 16:37 3.75 MLS/HR Purified Water 200 ml Q4HR GT 04/28/24 10:00 04/28/24 10:54 200 ML Potassium Chloride/Dextrose/ Sod Cl 1,000 ml @ 75 mls/hr [id number] IV 04/28/24 08:30 04/28/24 10:54 75 MLS/HR laboratory and microbiology Laboratory Tests 04/28/24 03:18 Test 04/28/24 03:18 Range/Units Serum Glucose 117 H 74-106 mg/dL Assessment/Plan Still on Levophed Days ago: There was question about EKG showing STEMI. Patient was intubated again by primary team and taken to Environmental Field Team Member. s/p Cardiac cath Was found to have HARVEST CONTRACTOR of mid LAD (considered old) with full of thrombus. s/p balloon angioplasty with minimal / partial result s/p thoracoscopy and chest tube placement Patient is a 68-year-old female who was transferred from [facility]. She originally presented to [facility] for shortness of breath ongoing for few days. She is intubated and is being managed in ICU. Information was obtained by reviewing the chart and communicating with staff. Reportedly, she presented with respiratory failure to [facility] (oxygen saturation was 88%) and over there was found to have white blood cell count of 26.6, hemoglobin of 11.1, creatinine of 5.6, potassium of 5.6 and troponin of 1.01. She was given 365 mg of aspirin in [facility]. She did have an episode of atrial fibrillation with RVR with questionable ST changes and was transferred to our facility for further care. She was also found to have right pleural effusion in [facility] and was diagnosed with non-STEMI. s/p tracheostomy, on vent support. Obese. Mucosa is pale. Scattered rhonchi in the lungs is heard. Cardiac: Regular, no thrill/gallop. Abdomen is soft with increased bowel sounds. There is no gross mass. Extremities reveal 1+ edema bilaterally. Available past medical history includes obesity and questionable history of psoriasis. WBC: 25.3 - 23.7 - 20.2 - 20.5 - 17.6 - 18.4 - 19.2 - 19.4 - 22.2 - 16.4 - 16.1 - 19.5 - 14.7 - 12.3 - 9.8 - 10.0 - 8.3 - 9.2 - 10.2 - 11.4 - 10.3 - 12.0 - 13.8 - 16.3 - 18.0 - 18.2 - 16.6 - 15.6 - 11.7 - 9.8 - 9.1 - 11.4 - 12.3 Hemoglobin: 10.8 - 9.1 - 8.5 - 8.4 - 8.8 - 8.6 - 8.9 - 8.1 - 8.4 - 8.1 - 8.1 - 8.2 - 8.0 - 7.4 - 7.4 - 7.7 - 7.1 - 8.0 - 7.5 - 8.8 - 7.1 - 9.0 - 8.9 - 9.0 - 8.4 - 8.4 - 8.4 - 8.1 - 8.2 - 8.0 - 8.0 - 8.0 - 7.8 - 7.1 D-dimer: 3.62 Creatinine: 5.67 - 5.78 - 5.41 - 4.92 - 4.55 - 4.68 - 4.71 - 4.64 - 4.48 - 3.83 - 3.66 - 3.65 - 3.25 - 2.82 - 2.41 - 2.34 - 2.01 - 1.90 - 1.60 - 1.83 - 1.73 - 1.74 - 1.76 - 1.78 - 1.82 - 1.94 - 1.99 - 1.93 - 1.95 - 2.39- 2.09 - 1.81 - 1.54 - 1.41 - 1.32 Potassium: 6.0 - 6.3 - 6.1 - 6.0 - 5.3 - 5.0 - 4.9 - 4.8 - 5.1 - 5.4 - 4.9 - 5.3 - 4.8 - 4.5 - 4.7 - 4.3 - 4.2 - 3.9 - 4.6 - 3.8 - 3.5 - 3.3 - 3.6 - 3.6 - 4.0 - 3.5 - 4.0 - 3.7 - 3.6 - 3.5 - 3.4 - 4.0 - 3.9 - 3.0 - 3.4 - 3.3 - 3.6 - 3.3 - 3.0 Lactic acid: 3.3 - 3.4 - 2.3 - 2.5 - 2.5 - 2.7 - 2.4 - 2.5 - 3.1 - 2.3 - 1.7 - 1.7 TSH: 1.71 BNP: 274.69 - 1944.81 - 373.79 Troponin (high sensitive): 6778 - 2595 - 1684 - 3986 - 118 - 9118 Blood culture: positive Pleural fluid culture: E-coli Digoxin level: 2.09 Stool OB: positive Chest x-ray revealed: IMPRESSION: 1. Moderate right pleural effusion. 2. Cardiomegaly with mild pulmonary vascular congestion bilaterally. Repeat chest x-ray revealed: IMPRESSION: 1. Endotracheal tube and gastric tubes in place as described. 2. Right IJ central venous catheter projects over the lower SVC. 3. Mild cardiomegaly and prominence of the pulmonary vasculature. 4. Moderate to large right pleural effusion. Repeat chest x-ray revealed: IMPRESSION: Similar lung aeration with large right pleural effusion. No pneumothorax seen. Stable lines and tubes. Repeat chest x-ray revealed: IMPRESSION: Similar lung aeration with large right pleural effusion. No pneumothorax seen. Stable lines and tubes. Repeat chest xry revealed: Lines and tubes: ET in the mid thoracic trachea. NG crosses midline. Right CVC is stable. Left HD catheter projects over the mediastinum. Cardiomediastinal silhouette: Enlarged Pulmonary vasculature: prominent Lung expansion: low Lung airspace: patchy bilateral airspace opacity. Lung interstitium: normal Pleura: Similar large right effusion. Pneumothorax: no Bones: Unremarkable Other: no IMPRESSION: Lines and tubes, as above. Similar lung aeration bilaterally with a right pleural effusion and patchy airspace opacities. Repeat chest xry revealed: IMPRESSION: 1. Stable position of the support lines and tubes. 2. Interstitial and alveolar opacities. Repeat chest xry revealed: IMPRESSION: Unchanged multifocal airspace disease. Small to moderate right pleural effusion ; possibly loculated. Repeat chest xry revealed: IMPRESSION: Lines and tubes in satisfactory position. No significant interval change. Repeat chest xry revealed: IMPRESSION: 1. Support lines and tubes in appropriate position. 2. Pulmonary vascular congestion. 3. Bilateral pleural effusions, right greater than left. Repeat chest xry revealed: IMPRESSION: 1. Support lines and tubes in appropriate position. 2. Pulmonary vascular congestion. 3. Bilateral pleural effusions, right greater than left. Repeat chest xry revealed: IMPRESSION: Interval placement of right chest tube which projects deep into the right hilar region. Repeat chest xry revealed: IMPRESSION: No interval change Repeat chest xry revealed: Findings/IMPRESSION: Right IJ CVC terminating in the SVC. Endotracheal tube projected 5 cm superior to the mili. Enteric tube projected below the GE junction. Right-sided PICC projects terminating near the cavoatrial junction. Small bilateral pleural effusions and/or atelectasis with superimposed infection not excluded. Repeat chest xry revealed: MPRESSION: 1. Bilateral pleural effusions and airspace disease right greater than left. Repeat chest xry revealed: IMPRESSION: 1. Endotracheal tube terminates 6.0 cm above the mili, previously 3.1 cm above the mili. Otherwise, No significant interval change. Repeat chest xry revealed: IMPRESSION: 1. Endotracheal tube terminates 6.0 cm above the mili, previously 3.1 cm above the mili. Otherwise, No significant interval change. Repeat chest xry revealed: IMPRESSION: Lines and tubes in satisfactory position. No significant interval change. Repeat chest xry revealed: IMPRESSION: Lines and tubes in satisfactory position. No significant interval change. Repeat chest xry revealed: IMPRESSION: Lines and tubes in satisfactory position. No significant interval change. Repeat chest xry revealed: IMPRESSION: Lines and tubes in satisfactory position. No significant interval change. Repeat chest xry revealed: IMPRESSION: Endotracheal tube projects in appropriate position. Otherwise no significant change Repeat chest xry revealed: FINDINGS: Lines and Tubes: Right PICC and enteric catheter and right chest tube in satisfactory position. Endotracheal tube projects 3.8 cm above the level of the mili. Lungs: Bibasilar opacities. Pleura: Possible small right pleural effusion. No pneumothorax. Cardiomediastinal contours: Unremarkable Bones: Unremarkable IMPRESSION: No significant change compared to prior exam. Repeat chest xry revealed: IMPRESSION: Lines and tubes in satisfactory position. No significant interval change. Repeat chest xry revealed: IMPRESSION: 1. Bibasilar opacities representing pleural effusions and airspace disease similar to prior study. 2. Satisfactory position of the support lines and tubes. Repeat chest xry revealed: IMPRESSION: 1. Stable appearance of the chest. Unchanged position of the support lines and tubes. Repeat chest xry revealed: Lines and Tubes: - Tracheostomy in satisfactory position - Enteric catheter in satisfactory position - Right PICC (Peripherally Inserted Central Catheter) in satisfactory position - Right chest tube in satisfactory position Lungs: - Diffuse pulmonary vascular congestion Pleura: - Possible small bilateral pleural effusions Cardiomediastinal contours: - Unremarkable Bones: Unremarkable IMPRESSION: Tracheostomy in satisfactory position. No other significant interval change. Repeat chest xry revealed: IMPRESSION: 1. Stable pulmonary congestion, patchy right mid to lower lung zone opacities. 2. Stable position of the support lines and tubes. Repeat chest xry revealed: IMPRESSION: Lines and tubes in satisfactory position. No significant interval change. Repeat chest xry revealed: IMPRESSION: Lines and tubes in satisfactory position. No significant interval change. Repeat chest xry revealed: IMPRESSION: Examination is markedly limited by patient positioning. Tracheostomy tube tip appears at the thoracic inlet likely within the trachea. There is a right chest tube right PICC line with tip at the superior vena cava. Bilateral effusions and moderate pulmonary vascular congestion as well as cardiomegaly. No pneumothorax. Repeat chest xry revealed: IMPRESSION: 1. Support lines and tubes similar to the prior exam. 2. No significant change in bilateral airspace disease. Renal ultrasound revealed: IMPRESSION: 1. Right kidney measures 13.4 cm. Decreased cortical thickness on the right. 2. Left kidney measures 10.2 cm. 3. No hydronephrosis on the right grade 1 hydronephrosis on the left. 4. Bilateral renal calculi. CT scan of the chest/abdomen and pelvis revealed: IMPRESSION: 1. Moderate partially loculated right pleural effusion and consolidations in the right middle and lower lobes which could be pneumonia and/or atelectasis. 2. Mild cardiomegaly, mild interstitial pulmonary edema, and body wall edema. 3. There is a 1.9 cm calculus in the right UPJ with mild right hydronephrosis 4. There is a 2.6 cm somewhat staghorn appearing calculus in the left renal pelvis and UPJ causing mild predominantly mid to lower pole left hydronephrosis. Mild soft tissue stranding about the left renal pelvis which could be due to obstruction or superimposed infection. Correlate with urinalysis. 5. Partial duplication of the left renal collecting system without hydronephrosis in the upper pole. 6. Moderate right perinephric, right retroperitoneal, and bilateral extraperitoneal pelvis low-density fluid and very mild left retroperitoneal low-density fluid. This could be fluid related to bilateral renal obstructions and forniceal ruptures versus evolved retroperitoneal hematoma. This is suboptimally evaluated without intravenous contrast. 7. Fluid-filled small and large bowel loops which may be physiologic or related to enterocolitis and could be manifesting as loose stools and/or diarrhea. 8. Prominent endometrium measuring at least 2.8 cm, suboptimally evaluated by CT. Recommend characterization with nonemergent pelvic ultrasound if clinically indicated. 9. Mild hepatosplenomegaly. 10. Moderate three-vessel calcified coronary artery disease and mild aortic valve calcification. 11. Right IJ central venous catheter in place terminating in the low SVC. 12. Small soft tissue stranding in the right supraclavicular neck which could be blood products. 13. Endotracheal tube terminates above the mili. Repeat CT of chest / abdomen and pelvis revealed: IMPRESSION: 1. Moderate intermediate density right perinephric fluid extending into the bilateral extrarenal pelvis and also to a lesser extent in the peritoneal cavity, which could reflect retroperitoneal hematoma. Evaluation for active bleeding limited on this examination. 2. Moderate partially loculated right pleural effusion with a right thoracostomy tube terminating in the anterior medial right upper lobe. 3. Development of a small amount of air in the right pleural space at the level of the right middle lobe concordant with pneumothorax. 4. Bilateral renal calculi with a staghorn appearing calculus on the left. 5. Dependent consolidations of the [id number]-[id number]-left lower lobes which could reflect atelectasis and/or pneumonia (which can be on the basis of aspiration. 6. Mild cardiomegaly, mild aortic valve calcifications and moderate coronary artery calcifications. Mild Interstitial pulmonary edema. CT of the head revealed: IMPRESSION: 1. No acute intracranial abnormality. 2. Generalized cerebral volume loss and mild chronic microvascular ischemic change. 3. Partially imaged endotracheal tube. Chest ultrasound revealed: Findings/Impression: There is a trace bilateral pleural effusion. Thoracentesis: FINDINGS: Moderate size, complex and septated right pleural effusion. Aspirated fluid is thick and green in consistency. IMPRESSION: Right thoracentesis with 250 mL removed for laboratory analysis. EKG in [facility] revealed sinus tachycardia, poor R-wave progression old inferior wall SD. later EKG revealed atrial fibrillation with RVR. Repeat EKGs questioned STEMI. but resolved later. Telemetry reveals sinus rhythm, occasions of A-fib with RVR, SVT Echocardiogram revealed: Technically limited study secondary to poor acoustic windows. Left ventricle: Left ventricle was normal-sized. Mild concentric left ventricular hypertrophy was seen. LVEF was 55-60%. No gross wall motion abnormality was observed, but its presence can not be ruled out on the basis of this study. Right ventricle is mildly dilated with normal systolic function. Left atrium was mildly dilated. Right atrium was normal-sized. Aortic valve was trileaflet. There was no aortic insufficiency. There was aortic sclerosis with no stenosis. There was trivial mitral/tricuspid regurgitation. Pulmonary valve was not well visualized. Right ventricular systolic pressure was assessed around 48 mm Hg. There was no pericardial effusion. Left heart cath revealed: One-vessel coronary artery disease, HARVEST CONTRACTOR of mid LAD, Attempted to open up the LAD HARVEST CONTRACTOR, partially/minimally successful (status post balloon angioplasty). LVEF of 25% (dilated LV). Cardiac suggestion for management: Dual antiplatelet therapy (loaded with aspirin and Plavix). Guideline directed medical therapy for systolic heart failure Repeat echo revealed: Technically limited study secondary to poor acoustic windows. Left ventricle: Concentric left ventricular hypertrophy was seen anteroapical hypokinesia was seen. The LVEF was around 40%. Right ventricular was normal sized with normal systolic function. Atria were not well-visualized. Aortic valve: Aortic valve was not well visualized. There was no aortic stenosis/insufficiency. Mild mitral/tricuspid regurgitation was observed. Pulmonary valve was not well visualized. Right ventricular systolic pressure was assessed around 35 mm Hg. There was no pericardial effusion. Patient is a 68-year-old morbidly obese patient who presented with respiratory failure to the hospital. Presentation is in favor of sepsis/septic shock. Multiorgan failure is observed. She is intubated and on vent support. She is on multiple pressor support. Life findings are in favor of acute renal failure. She also is known to have nephrolithiasis with history of staghorn calculi. Cardiac-ceballos, the patient did have episode of atrial fibrillation with RVR. She is found to have increased troponin. Presentation questions non-STEMI and possibly type 2 ischemia. Recognizing the presentation, ischemic workup should be postponed after clinical stability (only if patient recovers higher brain function). Is being followed by Nephrology. Had episodes of tachyarrhythmia. Loaded with Digoxin. Positive cultures. Repeated a-fib with RVR. Was evaluated by Interventional Cardiology telephone advice nurse for STEMI (not considered STEMI). As there was repeated EKG changes in favor of STEMI, patient was taken to line erector apprentice: Was found to have HARVEST CONTRACTOR of mid LAD (considered old) with full of thrombus. s/p balloon angioplasty with minimal / partial result Septic shock Multiorgan failure Acute respiratory failure on vent support Acute renal failure Nephrolithiasis Staghorn calculi Hydronephrosis Abnormal troponin, non-STEMI Atrial fibrillation with RVR Paroxysmal AFib Acute heart failure, diastolic Hepatosplenomegaly Pleural effusion Status post thoracentesis Morbid obesity s/p Cardioversion for A-fib with RVR s/p thoracoscopy and chest tube placement CAD: HARVEST CONTRACTOR of mid LAD (considered old) with full of thrombus. s/p balloon angioplasty with minimal / partial result s/p tracheostomy Cardiac suggestion for management: Manage in ICU Follow-up electrolytes and kidney function tests and correct abnormalities Pressure support to keep mean arterial pressure above 65 Amiodarone oral/O mg BID Daily aspirin (81 mg daily) s/p thoracoscopy and chest tube placement s/p tracheostomy To go for Thoracotomy this coming week IV metoprolol PRN for a-fib with RVR episodes. Sepsis workup and management as per primary team Evaluation and management of respiratory failure as per primary team/Pulmonary Evaluation and management of nephrolithiasis/hydronephrosis as per primary/Urology Evaluation and management of acute renal failure as per Nephrology Further evaluation and management as per above and clinical course. A total of 75 minutes was spent reviewing the patient record, examining the patient, making a diagnostic and therapeutic plan, discussing this plan with medical personnel, following up on diagnostic studies and following the patient for clinical stability excluding any and all procedures. At least 50% of this time was spent in direct, [id number] contact. Thank you for allowing me to participate in this patient's care. Further recommendations will depend on patient's clinical course. Please do not hesitate to contact me if you have any questions or concerns. This medical document was created using electronic medical record system with [employer] dictation system. Although this document has been carefully reviewed, there may still be some phonetic and typographical errors. These areas are purely typographical due to the imperfection of the software programs, and do not reflect any compromise in the patient's medical care. Dietary Evaluation Review Comments: 1) If GI is accessible consider Nepro 1.8 @ 30 ml/hr goal rate as tolerated with current rate of propofol on board. 2) If pt remains NPO >7 days consider TPN to meet at least 75% of estimated needs 3) If pt continues to receive HD, advance pt diet when medically feasible to a Renal Standard diet modified per TRAFFIC CONTROL SIGNALER recommendations 4) If HD is discontinued and GFR is within normal range, advance pt diet to a Regular diet, modified per TRAFFIC CONTROL SIGNALER recommendations 5)If HD is discontinued and GFR lies within STG 1-4, advance pt diet to a Renal Specific K2,lowphos,HECTOR,2gmNa,80gPro diet 6) If HD is discontinued and if GFR returns to normal levels then ALEXANDRA 1 pkt BID with meals may be considered to aid with wound healing 7) Continue current plan of care Expected Outcomes/Goals: 1) Pt to receive nutrition support within 7 days of NPO status 2) Pt labs to improve 3) Pt diet to advance 4) F/U in 2-3 days Plan discussed with: Other (nurse) HERMINIO JOHNSON MD Apr 28, 2024 12:18
[2024-04-28] MEDS: NOREPINEPHRINE 8 MG/250ML KIT 250 ML IV SCH (19:00)
--- NOTE | 2024-04-28 21:52 | DVHPNRES ---
Progress Note Date Seen: Apr 28, 2024 Resident Creating Document: JUAN VAZQUEZ RESIDENT Has the PT tested + for MRSA If YES, has PT been informed?: No Medical Necessity Reason Pt with a Central, PICC or Fol: Yes The following are medically ne: Central Line, Whipple Catheter Reason for whipple catheter: Strict I&O Subjective Review of Systems HPI: 68/female, past medical history: Unknown Patient is 68-year-old female who was brought to the hospital from [facility] for higher level of care. Patient was initially treated facility for shortness of breath and was transferred to our hospital. During initial ED evaluation patient found to be tachypneic with severe respiratory failure, atrial fibrillation. Initially patient required oxygenation via non- rebreather mask however patient intubated to protect airway. Patient started on IV antibiotic, requiring vasopressor and amiodarone drip initially. With further evaluation chest ultrasound showed bilateral pleural effusion, CT scan of chest and abdomen was performed which showed partially loculated right pleural effusion and consolidation in right middle and lower lobe. Patient also found to have right hydronephrosis with 1.9 cm calculus into right UPJ. Radiologist performed right-sided thoracentesis which removed 250 mL of fluid. L patient was placed with right-sided chest tube for loculated empyema. Patient underwent right thoracoscopy with evacuation empyema with insertion of chest tube. Patient was extubated on April 16/2024. Patient was reintubated back given possible STEMI and transferred to left heart catheterization. 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 Started on heparin drip, aspirin and Plavix. Patient continued to have x-ray findings with right lower lobe opacity. Continued on antibiotic. Continued require vasopressors, chest type continued to drain. No air leak. ROS: Not obtained as patient is intubated Ventilatory settings: Respiratory rate 22, tidal volume 500, FiO2 30%, peep 5 cm H2O Urine Input/output: balance - 5898 mL, 75 mL urine output in last 12 hours during last night Overnight event: None Labs, micro, imaging/study Micro: Urine culture growing yeast, respiratory culture growing yeast Today patient was seen and examined at bedside. Thoracotomy postponed to tomorrow given electrolyte imbalance and low HB. No night events. Plan to correct electrolytes with PRBCS, IV fluids and electrolyses. NO night event. ROS not obtain given sedated. Objective vital signs Vital Sign Date Time Temp Pulse Resp B/P (MAP) Pulse Ox O2 Delivery O2 Flow Rate FiO2 04/28/24 21:15 71 20 111/56 (74) 97 04/28/24 20:00 Mechanical Ventilator+ 30 30 04/28/24 20:00 98.1 98.1 Total Intake and Output 04/27/24 04/27/24 04/28/24 15:00 23:00 07:00 Intake Total 265.752 ml 539.00 ml 453.125 ml Output Total 390 ml 250 ml Balance 265.752 ml 149.00 ml 203.125 ml medications Current Medications Medications Dose Ordered Sig/Destini Route Start Time Stop Time Status Last Admin Dose Admin Heparin Sodium/ Dextrose 250 ml @ 18 mls/hr [id number] IV 03/31/24 23:45 UNV Midazolam HCl 50 ml @ 1 mls/hr Q24H IV 04/01/24 01:30 04/28/24 16:19 6 MLS/HR Albumin Human 100 ml @ 100 mls/hr KIRAN PRN IV 04/03/24 07:00 Sodium Chloride 10 ml QSHIFT@10,22 IV 04/09/24 22:00 04/28/24 21:16 10 ML Iron Sucrose 110 ml @ 110 mls/hr DAILY@1200 IV 04/10/24 12:00 Hold 04/19/24 13:25 110 MLS/HR Amiodarone HCl 200 mg Q12HR PO 04/10/24 22:00 UNV Amiodarone HCl 200 mg Q12HR PO 04/10/24 22:00 04/28/24 21:15 200 MG Albuterol 2.5 mg Q4HR NEB 04/16/24 18:00 04/28/24 18:29 2.5 MG Ipratropium [place] 0.5 mg Q4HR NEB 04/16/24 18:00 04/28/24 18:29 0.5 MG Budesonide 0.5 mg BID NEB 04/16/24 22:00 04/28/24 06:29 0.5 MG Fentanyl Citrate 250 ml @ 2.5 mls/hr Q24H IV 04/20/24 22:30 04/28/24 16:24 20 MLS/HR Aspirin 81 mg DAILY PO 04/22/24 10:00 04/27/24 09:50 81 MG Enteral Nutritional Formula 1,000 ml 30ML/HR GT 04/21/24 14:45 04/28/24 15:01 1,000 ML Piperacillin Sod/ Tazobactam Sod 100 ml @ 25 mls/hr Q8H IV 04/22/24 00:00 04/28/24 16:19 25 MLS/HR Pantoprazole Sodium 40 mg DAILY IV 04/22/24 10:00 04/28/24 10:53 40 MG Heparin Sodium (Porcine) 5,000 units Q12HR SC 04/22/24 22:00 04/28/24 11:04 5,000 UNITS Purified Water 200 ml Q4HR GT 04/28/24 10:00 04/28/24 21:16 200 ML Potassium Chloride/Dextrose/ Sod Cl 1,000 ml @ 75 mls/hr [id number] IV 04/28/24 08:30 04/28/24 10:54 75 MLS/HR Norepinephrine Bitartrate 250 ml @ 1.875 mls/ hr Q24H IV 04/28/24 18:45 04/28/24 19:00 5.625 MLS/HR Examination General: Patient is intubated and sedated. HEENT: Normocephalic, atraumatic, moist mucous membranes Respiratory/pulmonary: There are no breath sounds audible in the right lung base and diminished breath sounds on the left lung as well. Cardiovascular: Heart rate and rhythm is oscillating significantly from sinus rhythm to AFib rate controlled to AFib with RVR. No murmurs at this time. Abdomen: Abdomen slightly distended, there is no pain to palpation in any of the abdominal quadrants, no palpable masses. Extremities: There is minimal swelling in the lower extremities bilaterally. Peripheral Pulses: 3+ Radial (R). 3+ Radial (L). 3+ Dorsalis pedis (R). 3+ Dorsalis pedis(L) Skin: There is dry skin in bilateral lower extremities with scales and excoriations. Neurological: Sedated, RASS - laboratory and microbiology Laboratory Tests 04/28/24 03:18 Test 04/28/24 03:18 Range/Units Serum Glucose 117 H 74-106 mg/dL Microbiology Date/Time Source Procedure Growth Status 04/22/24 18:03 Urine - [place]ipple [place] Urine Culture - Final Yeast, not Arlet albicans Complete 04/22/24 15:16 Blood Blood Culture - Final NO GROWTH AFTER 5 DAYS OF INCUBATION. Complete 04/18/24 15:02 Sputum Gram Stain - Final Complete 04/18/24 15:02 Respiratory Culture - Final Yeast, not Arlet albicans Complete 04/08/24 08:02 Thoracic Fluid Gram Stain - Final Complete 04/08/24 08:02 Thoracic Fluid Anaerobic Culture - Final Complete 04/08/24 08:02 Thoracic Fluid Aerobic Culture - Final Complete 04/01/24 11:19 Nose MRSA Screen - Final Complete Problem List/Assessment/Plan Problem List/Assessment/Plan Neurology Sedation -currently on midazolam and fentanyl Respiratory Acute hypoxic respirtory failure likel due to right-sided pleural effusion/empyema and consolidation on right middle and lower lobe -on mechanical ventilation: Respiratory rate 16, tidal volume 500, FiO2 30%, peep 5 cm H2O -presence of chest tube: Minimal drainage, no air leak. -chest x-ray on 04/22/2022: Right-sided pleural effusion, right lower lobe opacification. -IV antibiotic with Zosyn -CT of the chest and abdomen showed moderate partial loculated right pleural effusion and consolidation on right middle/lower lobes. Mild cardiomegaly and interstitial pulmonary edema. It also showed right hydronephrosis with 1.9 cm calculus into the right UPJ. There is also a 2.6 cm staghorn appearing calculus causing mid to lower pole left hydronephrosis. -Respiratory culture: Yeast, not Arlet on 04/17/2024. Repeat culture pending. -CT chest(04/22/24):1. Moderate intermediate density right perinephric fluid extending into the bilateral extrarenal pelvis and also to a lesser extent in the peritoneal cavity, which could reflect retroperitoneal hematoma. Evaluation for active bleeding limited on this examination. 2. Moderate partially loculated right pleural effusion with a right thoracostomy tube terminating in the anterior medial right upper lobe. 3. Development of a small amount of air in the right pleural space at the level of the right middle lobe concordant with pneumothorax. 4. Bilateral renal calculi with a staghorn appearing calculus on the left. 5. Dependent consolidations of the vzvpw-eykqdvx-rzar-left lower lobes which could reflect atelectasis and/or pneumonia (which can be on the basis of aspiration. 6. Mild cardiomegaly, mild aortic valve calcifications and moderate coronary artery calcifications. Mild Interstitial pulmonary edema. -Underwent tracheostomy (04/23/24) -Surgical consultation for Thoracotomy Plan for tomorrow Septic shock in the setting of loculated right-sided pleural effusion and pneumonia -continue management of acute respiratory failure likely due to empyema. -Off vasopressor - continue zosyn -Respiratory culture positive for yeast on 04/17/2024. -IV fluid with D5W S/P Tracheostomy (04/23/24) Cardiology Acute on chronic systolic/diastolic heart failure -echocardiogram is showing an LVEF of 55-60% with increased RVSP at 48 mmHg and no pericardial effusion -Continue monitor I/O -repeat x ray In AM NSTEMI type II likely due to above -continue current management. 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 s/p balloon angioplasty with minimal / partial result Atrial fibrilation with RVR: Rate controlled -continue amiodarone 200 mg p.o. b.i.d. -heparin 5000 IU BID Hold before surgery -Cardiology on board Nephrology Hypernatremia -repeat sodium level in a.m. -Free water and D5W started Bilateral hydronephrosis with left-sided staghorn calculi and right UVJ calculi -CT scan of the chest and abdomen showed right hydronephrosis with 1.9 cm calculus into the right UPJ, there was also a 2.6 cm staghorn appearing calculus causing mid to lower pole left hydronephrosis. -nephrology on board -drainage with Whipple catheter. -continue I/O monitoring CHRISTOPH due to VMN initially likely in setting of septic shock: Resolved -most likely secondary to bilateral renal calculi -nephrology and urology on board -monitor kidney function Hypokalemia -replenish Hematogy Normocytic anemia -2 Unit of PRBCS given No Nutrition Nepro 15 mL/hour via G-tube. Lines: Right upper arm PICC line: Placed on 04/09/2024 PUD prophylaxis: Protonix DVT prophylaxis: Heparin Goals of care discussed with the daughter and brother at bedside for >31min by Dr. Alin Dawson previously Critical time spent > 69 min Plan discussed with Dr Perez Plan discussed with: Other My Orders My Orders Orders - JUAN VAZQUEZ RESIDENT Procedure Category Date Status Time Free Water PHA 04/28/24 In Process 10:00 D5w/Sod Chl 0.45%/Kcl PHA 04/28/24 In Process 20meq 08:30 Ventilator Orders RT 04/28/24 Transmitted 08:35 Obtain Consent For: ORDERS 04/28/24 Transmitted 09:18 Norepinephrine 8 PHA 04/28/24 In Process Mg/250ml Kit 18:45 Dietary Evaluation Review Comments: 1) If GI is accessible consider Nepro 1.8 @ 30 ml/hr goal rate as tolerated with current rate of propofol on board. 2) If pt remains NPO >7 days consider TPN to meet at least 75% of estimated needs 3) If pt continues to receive HD, advance pt diet when medically feasible to a Renal Standard diet modified per FORM STRIPPER recommendations 4) If HD is discontinued and GFR is within normal range, advance pt diet to a Regular diet, modified per FORM STRIPPER recommendations 5)If HD is discontinued and GFR lies within STG 1-4, advance pt diet to a Renal Specific K2,lowphos,HECTOR,2gmNa,80gPro diet 6) If HD is discontinued and if GFR returns to normal levels then ALEXANDRA 1 pkt BID with meals may be considered to aid with wound healing 7) Continue current plan of care Expected Outcomes/Goals: 1) Pt to receive nutrition support within 7 days of NPO status 2) Pt labs to improve 3) Pt diet to advance 4) F/U in 2-3 days Date of Service: Apr 28, 2024 Billing Provider: LAURIE JONES MD Common Visit Codes: 39961-[id number] CARE 30-74 MIN JUAN VAZQUEZ Apr 28, 2024 21:52 LAURIE JONES MD Apr 29, 2024 11:18
[2024-04-29] VITALS (97 sets, daily range): BP systolic 82–158; BP diastolic 39–77; PULSE 69–92; RESP 14–25; TEMP 98.1–99.3; O2SAT 89–100
--- NOTE | 2024-04-29 04:44 | DVH ---
CHEST RADIOGRAPH Indication:INTUBATED Technique: Single frontal view of the chest was obtained Comparison: XY CHEST PORTABLE on DOS: 04/28/24 FINDINGS: Lines and Tubes: Tracheostomy tube is unchanged. The enteric tube courses below the left hemidiaphrag m and the tip extends outside the field of view. Right PICC terminates in the superior vena cava. Th ere is a right chest tube is unchanged. Lungs: Bibasilar consolidation similar to prior study. Pleura: No effusion. No pneumothorax. Cardiomediastinal contours: Unremarkable Bones: No acute osseous abnormality. IMPRESSION: 1. Stable position of the support lines and tubes. 2. Bibasilar opacities similar to prior study.
[2024-04-29 05:13] LABS: Basophils # (auto) 0.1 10 ^3/uL (0-0.2); Basophils % (auto) 0.8 % (0.0-2.0); Eosinophils # (auto) 0.9 10 ^3/uL (0-0.8); Eosinophils % (auto) 5.4 % (0.0-7.0); Hematocrit 34.2 % (36.0-46.0); Hemoglobin 10.8 g/dL (12.2-16.2); Lymphocytes # (auto) 1.4 10 ^3/uL (0.4-5.4); Lymphocytes % (auto) 9.1 % (10.0-50.0); Mean Corpuscular Hemoglobin 29.8 pg (28.0-32.0); Mean Corpuscular Hgb Conc. 31.6 g/dL (32.0-36.0); Mean Corpuscular Volume 94.3 fL (80.0-100.0); Monocytes # (auto) 0.7 10 ^3/uL (0-1.3); Monocytes % (auto) 4.8 % (0.0-12.0); Neutrophils # (auto) 12.6 10 ^3/uL (1.6-8.6); Neutrophils % (auto) 79.9 % (37.0-80.0); Platelet Count (auto) 214 10^3/uL (140-450); Red Blood Cells 3.63 10^6/uL (4.0-5.20); White Blood Cell 15.7 10^3/uL (4.4-10.8)
[2024-04-29 05:35] LABS: Alanine Aminotransferase 38 U/L (7-40); Albumin 3.3 g/dL (3.2-4.8); Alkaline Phosphatase 67 U/L (46-116); Anion Gap 9 (5-15); Aspartate Aminotransferase 32 U/L (13-40); BUN/Creatinine Ratio 18.3 (10.0-20.0); Bilirubin, Total 0.4 mg/dL (0.2-1.0); Blood Urea Nitrogen 24 mg/dL (9-23); Calcium 8.5 mg/dL (8.7-10.4); Carbon Dioxide 22 mmol/L (20-31); Chloride 113 mmol/L (98-107); Glucose 130 mg/dL (74-106); Sodium 144 mmol/L (136-145); Total Protein 6.1 g/dL (5.7-8.2)
--- NOTE | 2024-04-29 06:25 | DVHPN2 ---
Progress Note - Dictate Date Seen: Apr 29, 2024 Has the PT tested + for MRSA If YES, has PT been informed?: No Medical Necessity Reason Pt with a Central, PICC or Fol: Yes The following are medically ne: Central Line, Whipple Catheter Reason for whipple catheter: Strict I&O vital signs Vital Sign Date Time Temp Pulse Resp B/P (MAP) Pulse Ox O2 Delivery O2 Flow Rate FiO2 04/29/24 05:02 115/62 04/29/24 05:00 77 20 97 04/29/24 04:04 30 04/29/24 04:00 Mechanical Ventilator+ 04/29/24 00:00 98.8 98.8 Total Intake and Output 04/28/24 04/28/24 04/29/24 15:00 23:00 07:00 Intake Total 1199.375 ml 2267.375 ml 719.750 ml Output Total 125 ml Balance 1199.375 ml 2142.375 ml 719.750 ml medications Current Medications Medications Dose Ordered Sig/Destini Route Start Time Stop Time Status Last Admin Dose Admin Heparin Sodium/ Dextrose 250 ml @ 18 mls/hr [id number] IV 03/31/24 23:45 UNV Midazolam HCl 50 ml @ 1 mls/hr Q24H IV 04/01/24 01:30 04/29/24 05:02 6 MLS/HR Albumin Human 100 ml @ 100 mls/hr KIRAN PRN IV 04/03/24 07:00 Sodium Chloride 10 ml QSHIFT@10,22 IV 04/09/24 22:00 04/28/24 21:16 10 ML Iron Sucrose 110 ml @ 110 mls/hr DAILY@1200 IV 04/10/24 12:00 Hold 04/19/24 13:25 110 MLS/HR Amiodarone HCl 200 mg Q12HR PO 04/10/24 22:00 UNV Amiodarone HCl 200 mg Q12HR PO 04/10/24 22:00 04/28/24 21:15 200 MG Albuterol 2.5 mg Q4HR NEB 04/16/24 18:00 04/29/24 02:02 2.5 MG Ipratropium Howells 0.5 mg Q4HR NEB 04/16/24 18:00 04/29/24 02:02 0.5 MG Budesonide 0.5 mg BID NEB 04/16/24 22:00 04/28/24 22:11 0.5 MG Fentanyl Citrate 250 ml @ 2.5 mls/hr Q24H IV 04/20/24 22:30 04/29/24 05:00 20 MLS/HR Aspirin 81 mg DAILY PO 04/22/24 10:00 04/27/24 09:50 81 MG Enteral Nutritional Formula 1,000 ml 30ML/HR GT 04/21/24 14:45 04/28/24 15:01 1,000 ML Piperacillin Sod/ Tazobactam Sod 100 ml @ 25 mls/hr Q8H IV 04/22/24 00:00 04/29/24 00:00 25 MLS/HR Pantoprazole Sodium 40 mg DAILY IV 04/22/24 10:00 04/28/24 10:53 40 MG Heparin Sodium (Porcine) 5,000 units Q12HR SC 04/22/24 22:00 Hold 04/28/24 11:04 5,000 UNITS Purified Water 200 ml Q4HR GT 04/28/24 10:00 04/29/24 05:12 200 ML Potassium Chloride/Dextrose/ Sod Cl 1,000 ml @ 75 mls/hr [id number] IV 04/28/24 08:30 04/28/24 21:50 75 MLS/HR Norepinephrine Bitartrate 250 ml @ 1.875 mls/ hr Q24H IV 04/28/24 18:45 04/29/24 05:01 5.625 MLS/HR laboratory and microbiology Laboratory Tests 04/29/24 05:03 Test 04/29/24 05:03 Range/Units Serum Glucose 130 H 74-106 mg/dL Assessment/Plan Still on Levophed Days ago: There was question about EKG showing STEMI. Patient was intubated again by primary team and taken to [facility]. 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 s/p balloon angioplasty with minimal / partial result s/p thoracoscopy and chest tube placement Patient is a 68-year-old female who was transferred from [facility]. She originally presented to [facility] for shortness of breath ongoing for few days. She is intubated and is being managed in ICU. Information was obtained by reviewing the chart and communicating with staff. Reportedly, she presented with respiratory failure to [facility] (oxygen saturation was 88%) and over there was found to have white blood cell count of 26.6, hemoglobin of 11.1, creatinine of 5.6, potassium of 5.6 and troponin of 1.01. She was given 365 mg of aspirin in [facility]. She did have an episode of atrial fibrillation with RVR with questionable ST changes and was transferred to our facility for further care. She was also found to have right pleural effusion in [facility] and was diagnosed with non-STEMI. s/p tracheostomy, on vent support. Obese. Mucosa is pale. Scattered rhonchi in the lungs is heard. Cardiac: Regular, no thrill/gallop. Abdomen is soft with increased bowel sounds. There is no gross mass. Extremities reveal 1+ edema bilaterally. Available past medical history includes obesity and questionable history of psoriasis. WBC: 25.3 - 23.7 - 20.2 - 20.5 - 17.6 - 18.4 - 19.2 - 19.4 - 22.2 - 16.4 - 16.1 - 19.5 - 14.7 - 12.3 - 9.8 - 10.0 - 8.3 - 9.2 - 10.2 - 11.4 - 10.3 - 12.0 - 13.8 - 16.3 - 18.0 - 18.2 - 16.6 - 15.6 - 11.7 - 9.8 - 9.1 - 11.4 - 12.3 - 15.7 Hemoglobin: 10.8 - 9.1 - 8.5 - 8.4 - 8.8 - 8.6 - 8.9 - 8.1 - 8.4 - 8.1 - 8.1 - 8.2 - 8.0 - 7.4 - 7.4 - 7.7 - 7.1 - 8.0 - 7.5 - 8.8 - 7.1 - 9.0 - 8.9 - 9.0 - 8.4 - 8.4 - 8.4 - 8.1 - 8.2 - 8.0 - 8.0 - 8.0 - 7.8 - 7.1 - 10.8 D-dimer: 3.62 Creatinine: 5.67 - 5.78 - 5.41 - 4.92 - 4.55 - 4.68 - 4.71 - 4.64 - 4.48 - 3.83 - 3.66 - 3.65 - 3.25 - 2.82 - 2.41 - 2.34 - 2.01 - 1.90 - 1.60 - 1.83 - 1.73 - 1.74 - 1.76 - 1.78 - 1.82 - 1.94 - 1.99 - 1.93 - 1.95 - 2.39- 2.09 - 1.81 - 1.54 - 1.41 - 1.32 - 1.31 Potassium: 6.0 - 6.3 - 6.1 - 6.0 - 5.3 - 5.0 - 4.9 - 4.8 - 5.1 - 5.4 - 4.9 - 5.3 - 4.8 - 4.5 - 4.7 - 4.3 - 4.2 - 3.9 - 4.6 - 3.8 - 3.5 - 3.3 - 3.6 - 3.6 - 4.0 - 3.5 - 4.0 - 3.7 - 3.6 - 3.5 - 3.4 - 4.0 - 3.9 - 3.0 - 3.4 - 3.3 - 3.6 - 3.3 - 3.0 - 4.0 Lactic acid: 3.3 - 3.4 - 2.3 - 2.5 - 2.5 - 2.7 - 2.4 - 2.5 - 3.1 - 2.3 - 1.7 - 1.7 TSH: 1.71 BNP: 274.69 - 1944.81 - 373.79 Troponin (high sensitive): 9109 - 7696 - 0594 - 0556 - 708 - 8618 Blood culture: positive Pleural fluid culture: E-coli Digoxin level: 2.09 Stool OB: positive Chest x-ray revealed: IMPRESSION: 1. Moderate right pleural effusion. 2. Cardiomegaly with mild pulmonary vascular congestion bilaterally. Repeat chest x-ray revealed: IMPRESSION: 1. Endotracheal tube and gastric tubes in place as described. 2. Right IJ central venous catheter projects over the lower SVC. 3. Mild cardiomegaly and prominence of the pulmonary vasculature. 4. Moderate to large right pleural effusion. Repeat chest x-ray revealed: IMPRESSION: Similar lung aeration with large right pleural effusion. No pneumothorax seen. Stable lines and tubes. Repeat chest x-ray revealed: IMPRESSION: Similar lung aeration with large right pleural effusion. No pneumothorax seen. Stable lines and tubes. Repeat chest xry revealed: Lines and tubes: ET in the mid thoracic trachea. NG crosses midline. Right CVC is stable. Left HD catheter projects over the mediastinum. Cardiomediastinal silhouette: Enlarged Pulmonary vasculature: prominent Lung expansion: low Lung airspace: patchy bilateral airspace opacity. Lung interstitium: normal Pleura: Similar large right effusion. Pneumothorax: no Bones: Unremarkable Other: no IMPRESSION: Lines and tubes, as above. Similar lung aeration bilaterally with a right pleural effusion and patchy airspace opacities. Repeat chest xry revealed: IMPRESSION: 1. Stable position of the support lines and tubes. 2. Interstitial and alveolar opacities. Repeat chest xry revealed: IMPRESSION: Unchanged multifocal airspace disease. Small to moderate right pleural effusion ; possibly loculated. Repeat chest xry revealed: IMPRESSION: Lines and tubes in satisfactory position. No significant interval change. Repeat chest xry revealed: IMPRESSION: 1. Support lines and tubes in appropriate position. 2. Pulmonary vascular congestion. 3. Bilateral pleural effusions, right greater than left. Repeat chest xry revealed: IMPRESSION: 1. Support lines and tubes in appropriate position. 2. Pulmonary vascular congestion. 3. Bilateral pleural effusions, right greater than left. Repeat chest xry revealed: IMPRESSION: Interval placement of right chest tube which projects deep into the right hilar region. Repeat chest xry revealed: IMPRESSION: No interval change Repeat chest xry revealed: Findings/IMPRESSION: Right IJ CVC terminating in the SVC. Endotracheal tube projected 5 cm superior to the mili. Enteric tube projected below the GE junction. Right-sided PICC projects terminating near the cavoatrial junction. Small bilateral pleural effusions and/or atelectasis with superimposed infection not excluded. Repeat chest xry revealed: MPRESSION: 1. Bilateral pleural effusions and airspace disease right greater than left. Repeat chest xry revealed: IMPRESSION: 1. Endotracheal tube terminates 6.0 cm above the mili, previously 3.1 cm above the mili. Otherwise, No significant interval change. Repeat chest xry revealed: IMPRESSION: 1. Endotracheal tube terminates 6.0 cm above the mili, previously 3.1 cm above the mili. Otherwise, No significant interval change. Repeat chest xry revealed: IMPRESSION: Lines and tubes in satisfactory position. No significant interval change. Repeat chest xry revealed: IMPRESSION: Lines and tubes in satisfactory position. No significant interval change. Repeat chest xry revealed: IMPRESSION: Lines and tubes in satisfactory position. No significant interval change. Repeat chest xry revealed: IMPRESSION: Lines and tubes in satisfactory position. No significant interval change. Repeat chest xry revealed: IMPRESSION: Endotracheal tube projects in appropriate position. Otherwise no significant change Repeat chest xry revealed: FINDINGS: Lines and Tubes: Right PICC and enteric catheter and right chest tube in satisfactory position. Endotracheal tube projects 3.8 cm above the level of the mili. Lungs: Bibasilar opacities. Pleura: Possible small right pleural effusion. No pneumothorax. Cardiomediastinal contours: Unremarkable Bones: Unremarkable IMPRESSION: No significant change compared to prior exam. Repeat chest xry revealed: IMPRESSION: Lines and tubes in satisfactory position. No significant interval change. Repeat chest xry revealed: IMPRESSION: 1. Bibasilar opacities representing pleural effusions and airspace disease similar to prior study. 2. Satisfactory position of the support lines and tubes. Repeat chest xry revealed: IMPRESSION: 1. Stable appearance of the chest. Unchanged position of the support lines and tubes. Repeat chest xry revealed: Lines and Tubes: - Tracheostomy in satisfactory position - Enteric catheter in satisfactory position - Right PICC (Peripherally Inserted Central Catheter) in satisfactory position - Right chest tube in satisfactory position Lungs: - Diffuse pulmonary vascular congestion Pleura: - Possible small bilateral pleural effusions Cardiomediastinal contours: - Unremarkable Bones: Unremarkable IMPRESSION: Tracheostomy in satisfactory position. No other significant interval change. Repeat chest xry revealed: IMPRESSION: 1. Stable pulmonary congestion, patchy right mid to lower lung zone opacities. 2. Stable position of the support lines and tubes. Repeat chest xry revealed: IMPRESSION: Lines and tubes in satisfactory position. No significant interval change. Repeat chest xry revealed: IMPRESSION: Lines and tubes in satisfactory position. No significant interval change. Repeat chest xry revealed: IMPRESSION: Examination is markedly limited by patient positioning. Tracheostomy tube tip appears at the thoracic inlet likely within the trachea. There is a right chest tube right PICC line with tip at the superior vena cava. Bilateral effusions and moderate pulmonary vascular congestion as well as cardiomegaly. No pneumothorax. Repeat chest xry revealed: IMPRESSION: 1. Stable position of the support lines and tubes. 2. Bibasilar opacities similar to prior study. Repeat chest xry revealed: IMPRESSION: 1. Support lines and tubes similar to the prior exam. 2. No significant change in bilateral airspace disease. Renal ultrasound revealed: IMPRESSION: 1. Right kidney measures 13.4 cm. Decreased cortical thickness on the right. 2. Left kidney measures 10.2 cm. 3. No hydronephrosis on the right grade 1 hydronephrosis on the left. 4. Bilateral renal calculi. CT scan of the chest/abdomen and pelvis revealed: IMPRESSION: 1. Moderate partially loculated right pleural effusion and consolidations in the right middle and lower lobes which could be pneumonia and/or atelectasis. 2. Mild cardiomegaly, mild interstitial pulmonary edema, and body wall edema. 3. There is a 1.9 cm calculus in the right UPJ with mild right hydronephrosis 4. There is a 2.6 cm somewhat staghorn appearing calculus in the left renal pelvis and UPJ causing mild predominantly mid to lower pole left hydronephrosis. Mild soft tissue stranding about the left renal pelvis which could be due to obstruction or superimposed infection. Correlate with urinalysis. 5. Partial duplication of the left renal collecting system without hydronephrosis in the upper pole. 6. Moderate right perinephric, right retroperitoneal, and bilateral extraperitoneal pelvis low-density fluid and very mild left retroperitoneal low-density fluid. This could be fluid related to bilateral renal obstructions and forniceal ruptures versus evolved retroperitoneal hematoma. This is suboptimally evaluated without intravenous contrast. 7. Fluid-filled small and large bowel loops which may be physiologic or related to enterocolitis and could be manifesting as loose stools and/or diarrhea. 8. Prominent endometrium measuring at least 2.8 cm, suboptimally evaluated by CT. Recommend characterization with nonemergent pelvic ultrasound if clinically indicated. 9. Mild hepatosplenomegaly. 10. Moderate three-vessel calcified coronary artery disease and mild aortic valve calcification. 11. Right IJ central venous catheter in place terminating in the low SVC. 12. Small soft tissue stranding in the right supraclavicular neck which could be blood products. 13. Endotracheal tube terminates above the mili. Repeat CT of chest / abdomen and pelvis revealed: IMPRESSION: 1. Moderate intermediate density right perinephric fluid extending into the bilateral extrarenal pelvis and also to a lesser extent in the peritoneal cavity, which could reflect retroperitoneal hematoma. Evaluation for active bleeding limited on this examination. 2. Moderate partially loculated right pleural effusion with a right thoracostomy tube terminating in the anterior medial right upper lobe. 3. Development of a small amount of air in the right pleural space at the level of the right middle lobe concordant with pneumothorax. 4. Bilateral renal calculi with a staghorn appearing calculus on the left. 5. Dependent consolidations of the [id number]-left lower lobes which could reflect atelectasis and/or pneumonia (which can be on the basis of aspiration. 6. Mild cardiomegaly, mild aortic valve calcifications and moderate coronary artery calcifications. Mild Interstitial pulmonary edema. CT of the head revealed: IMPRESSION: 1. No acute intracranial abnormality. 2. Generalized cerebral volume loss and mild chronic microvascular ischemic change. 3. Partially imaged endotracheal tube. Chest ultrasound revealed: Findings/Impression: There is a trace bilateral pleural effusion. Thoracentesis: FINDINGS: Moderate size, complex and septated right pleural effusion. Aspirated fluid is thick and green in consistency. IMPRESSION: Right thoracentesis with 250 mL removed for laboratory analysis. EKG in [facility] revealed sinus tachycardia, poor R-wave progression old inferior wall OH. later EKG revealed atrial fibrillation with RVR. Repeat EKGs questioned STEMI. but resolved later. Telemetry reveals sinus rhythm, occasions of A-fib with RVR, SVT Echocardiogram revealed: Technically limited study secondary to poor acoustic windows. Left ventricle: Left ventricle was normal-sized. Mild concentric left ventricular hypertrophy was seen. LVEF was 55-60%. No gross wall motion abnormality was observed, but its presence can not be ruled out on the basis of this study. Right ventricle is mildly dilated with normal systolic function. Left atrium was mildly dilated. Right atrium was normal-sized. Aortic valve was trileaflet. There was no aortic insufficiency. There was aortic sclerosis with no stenosis. There was trivial mitral/tricuspid regurgitation. Pulmonary valve was not well visualized. Right ventricular systolic pressure was assessed around 48 mm Hg. There was no pericardial effusion. Left heart cath revealed: One-vessel coronary artery disease, WELDER OPERATOR of mid LAD, Attempted to open up the LAD WELDER OPERATOR, partially/minimally successful (status post balloon angioplasty). LVEF of 25% (dilated LV). Cardiac suggestion for management: Dual antiplatelet therapy (loaded with aspirin and Plavix). Guideline directed medical therapy for systolic heart failure Repeat echo revealed: Technically limited study secondary to poor acoustic windows. Left ventricle: Concentric left ventricular hypertrophy was seen anteroapical hypokinesia was seen. The LVEF was around 40%. Right ventricular was normal sized with normal systolic function. Atria were not well-visualized. Aortic valve: Aortic valve was not well visualized. There was no aortic stenosis/insufficiency. Mild mitral/tricuspid regurgitation was observed. Pulmonary valve was not well visualized. Right ventricular systolic pressure was assessed around 35 mm Hg. There was no pericardial effusion. Patient is a 68-year-old morbidly obese patient who presented with respiratory failure to the hospital. Presentation is in favor of sepsis/septic shock. Multiorgan failure is observed. She is intubated and on vent support. She is on multiple pressor support. Life findings are in favor of acute renal failure. She also is known to have nephrolithiasis with history of staghorn calculi. Cardiac-ceballos, the patient did have episode of atrial fibrillation with RVR. She is found to have increased troponin. Presentation questions non-STEMI and possibly type 2 ischemia. Recognizing the presentation, ischemic workup should be postponed after clinical stability (only if patient recovers higher brain function). Is being followed by Nephrology. Had episodes of tachyarrhythmia. Loaded with Digoxin. Positive cultures. Repeated a-fib with RVR. Was evaluated by Interventional Cardiology conceptor for STEMI (not considered STEMI). 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 s/p balloon angioplasty with minimal / partial result Septic shock Multiorgan failure Acute respiratory failure on vent support Acute renal failure Nephrolithiasis Staghorn calculi Hydronephrosis Abnormal troponin, non-STEMI Atrial fibrillation with RVR Paroxysmal AFib Acute heart failure, diastolic Hepatosplenomegaly Pleural effusion Status post thoracentesis Morbid obesity s/p Cardioversion for A-fib with RVR s/p thoracoscopy and chest tube placement CAD: WELDER OPERATOR of mid LAD (considered old) with full of thrombus. s/p balloon angioplasty with minimal / partial result s/p tracheostomy Cardiac suggestion for management: Manage in ICU Follow-up electrolytes and kidney function tests and correct abnormalities Pressure support to keep mean arterial pressure above 65 Amiodarone oral/O mg BID Daily aspirin (81 mg daily) s/p thoracoscopy and chest tube placement s/p tracheostomy To go for possible Thoracotomy IV metoprolol PRN for a-fib with RVR episodes. Sepsis workup and management as per primary team Evaluation and management of respiratory failure as per primary team/Pulmonary Evaluation and management of nephrolithiasis/hydronephrosis as per primary/Urology Evaluation and management of acute renal failure as per Nephrology Further evaluation and management as per above and clinical course. A total of 75 minutes was spent reviewing the patient record, examining the patient, making a diagnostic and therapeutic plan, discussing this plan with medical personnel, following up on diagnostic studies and following the patient for clinical stability excluding any and all procedures. At least 50% of this time was spent in direct, [id number] contact. Thank you for allowing me to participate in this patient's care. Further recommendations will depend on patient's clinical course. Please do not hesitate to contact me if you have any questions or concerns. This medical document was created using electronic medical record system with [employer] computerized dictation system. Although this document has been carefully reviewed, there may still be some phonetic and typographical errors. These areas are purely typographical due to the imperfection of the software programs, and do not reflect any compromise in the patient's medical care. Dietary Evaluation Review Comments: 1) If GI is accessible consider Nepro 1.8 @ 30 ml/hr goal rate as tolerated with current rate of propofol on board. 2) If pt remains NPO >7 days consider TPN to meet at least 75% of estimated needs 3) If pt continues to receive HD, advance pt diet when medically feasible to a Renal Standard diet modified per ENVIRONMENTAL AIDE recommendations 4) If HD is discontinued and GFR is within normal range, advance pt diet to a Regular diet, modified per ENVIRONMENTAL AIDE recommendations 5)If HD is discontinued and GFR lies within STG 1-4, advance pt diet to a Renal Specific K2,lowphos,HECTOR,2gmNa,80gPro diet 6) If HD is discontinued and if GFR returns to normal levels then ALEXANDRA 1 pkt BID with meals may be considered to aid with wound healing 7) Continue current plan of care Expected Outcomes/Goals: 1) Pt to receive nutrition support within 7 days of NPO status 2) Pt labs to improve 3) Pt diet to advance 4) F/U in 2-3 days Plan discussed with: Other (nurse) HERMINIO JOHNSON MD Apr 29, 2024 06:25
[2024-04-29] MEDS: SUCCINYLCHOLINE CHLORIDE 20 MG/ML 10ML VIAL IV ONE (06:36)
[2024-04-29] MEDS: ROCURONIUM 10MG/ML 10ML VIAL IV ONE (06:36)
[2024-04-29] MEDS ORDERED: PROPOFOL 10 MG/ML 20 ML IV ONE (06:47)
[2024-04-29] MEDS ORDERED: MEPERIDINE HCL (50 MG/ML) 1 ML VIAL ONE (06:47)
[2024-04-29] MEDS ORDERED: LIDOCAINE 1% INJ PF 5ML AMP ONE (06:47)
[2024-04-29] MEDS ORDERED: fentaNYL CITRATE 100 MCG/2 ML VL ONE (06:47)
[2024-04-29] MEDS ORDERED: MIDAZOLAM HCL 2MG/2ML 2ml VIAL (1mg/ml) ONE (06:47)
[2024-04-29] MEDS ORDERED: SODIUM CHLORIDE LOCK 50 ML ONE (06:47)
[2024-04-29] MEDS ORDERED: KETAMINE 50mg/ML 1ml syringe ONE (06:47)
--- NOTE | 2024-04-29 10:35 | DVHOP ---
DATE OF SURGERY: 04/29/2024 PREOPERATIVE DIAGNOSIS: Empyema, right chest. POSTOPERATIVE DIAGNOSES: Empyema, right chest. SURGEON: Juve Wade MD MILL MANAGER: Del Randle. ANESTHESIA: General endotracheal. ANESTHESIOLOGIST: Dr. Waters. PROCEDURE: Right thoracotomy, evacuation of right empyema. Irrigation and drainage of right chest cavity. DESCRIPTION OF PROCEDURE: Under general anesthesia with the patient's skin prepped and draped in the lateral decubitus position with the right chest facing upward down axilla protected with an axillary roll beneath and elbow on pillows, the body padded and secured with a beanbag, the right chest was prepped and draped, an incision was made into the fifth interspace to enter the right chest cavity and immediate return of purulent material. This was cultured for cultures and sensitivities and Gram stain. The lung was trapped by a thick pleural peel, which was decorticated from the surface of the lung incurring several areas of small air leaks. Following thorough decortication and mobilization of the lung, the right chest was irrigated using Betadine containing sterile saline solution, which was then aspirated. Two chest tubes were placed to replace the previously removed chest tubes from previous thoracoscopy. These chest tubes ____ in diameter, one placed anteriorly and one placed posteriorly and secured with a Tevdek suture and eventually connected to 20 cm of Pleur-evac suction. After assurance of complete hemostasis, the chest was closed using #1 pericostal figure- of-eight nonabsorbable sutures, #1 double-stranded PDS sutures and metallic skin nicole. The patient remained in unchanged clinical condition at the termination of the procedure. Family was thoroughly informed by phone at [phone]. Juve Wade MD PF TID: [id number] RECEIPT: [id number]
--- NOTE | 2024-04-29 10:37 | DVH ---
CHEST RADIOGRAPH Indication:s/p right thoracotomy,decortication right lung Technique: Single frontal view of the chest was obtained Comparison: XY CHEST PORTABLE on DOS: 04/29/24, XY CHEST PORTABLE on DOS: 04/28/24, XY CHEST PORTABLE on DOS: 04/27/24 FINDINGS: Lines and Tubes: Tracheostomy tube overlies the midthoracic trachea. Right PICC and enteric tubes ar e unchanged. Right chest tubes also unchanged. Lungs: Right mid to lower lung zone consolidation is decreased. Pleura: No effusion. No pneumothorax. Cardiomediastinal contours: Stable cardiovascular silhouette. Bones: No acute osseous abnormality. Right chest wall subcutaneous emphysema. IMPRESSION: 1. No significant change in position of the support lines and tubes. 2. Slightly improved aeration in the right lung.
[2024-04-29 11:05] LABS: Urine Bacteria None Seen /hpf (None Seen)
[2024-04-29 11:31] LABS: Urine Blood 2+ /uL (Negative); Urine Budding Yeast OCCASIONAL /hpf (None Seen); Urine Clarity Clear (Clear); Urine Color Yellow (Yellow); Urine Protein, UAD 1+ (Negative); Urine Specific Gravity 1.025 (1.001-1.035); Urine Urobilinogen Normal (Negative); Urine WBC 39 /hpf (0 - 5); Urine pH 5.5 (5.0-9.0)
[2024-04-29 11:47] LABS: Base Excess -5.8 mmol/L (-2.0-3.0)
[2024-04-29] MEDS ORDERED: SOD CHL 0.45% 1,000 ML IV SCH (14:30)
--- NOTE | 2024-04-29 14:30 | DVHPN2 ---
Progress Note Date Seen: Apr 29, 2024 Has the PT tested + for MRSA If YES, has PT been informed?: No Medical Necessity Reason Pt with a Central, PICC or Fol: Yes The following are medically ne: Central Line, Whipple Catheter Reason for whipple catheter: Strict I&O Subjective Review of Systems: RESPIRATORY:Abnormal Other Systems: Patient seen and examined by myself today around Patient remained trached on the ventilator Objective vital signs Vital Sign Date Time Temp Pulse Resp B/P (MAP) Pulse Ox O2 Delivery O2 Flow Rate FiO2 04/29/24 14:10 102/56 04/29/24 14:00 23 100 Mechanical Ventilator+ 30 30 04/29/24 14:00 71 04/29/24 12:00 98.1 208.6 Total Intake and Output 04/28/24 04/28/24 04/29/24 15:00 23:00 07:00 Intake Total 1199.375 ml 2267.375 ml 972.375 ml Output Total 125 ml 10 ml Balance 1199.375 ml 2142.375 ml 962.375 ml medications Current Medications Medications Dose Ordered Sig/Destini Route Start Time Stop Time Status Last Admin Dose Admin Heparin Sodium/ Dextrose 250 ml @ 18 mls/hr [id number] IV 03/31/24 23:45 UNV Midazolam HCl 50 ml @ 1 mls/hr Q24H IV 04/01/24 01:30 04/29/24 14:10 6 MLS/HR Albumin Human 100 ml @ 100 mls/hr KIRAN PRN IV 04/03/24 07:00 Sodium Chloride 10 ml QSHIFT@,22 IV 04/09/24 22:00 04/29/24 11:46 10 ML Iron Sucrose 110 ml @ 110 mls/hr DAILY@1200 IV 04/10/24 12:00 Hold 04/19/24 13:25 110 MLS/HR Amiodarone HCl 200 mg Q12HR PO 04/10/24 22:00 UNV Amiodarone HCl 200 mg Q12HR PO 04/10/24 22:00 04/29/24 11:06 200 MG Albuterol 2.5 mg Q4HR NEB 04/16/24 18:00 04/29/24 14:18 2.5 MG Ipratropium [place] 0.5 mg Q4HR NEB 04/16/24 18:00 04/29/24 14:17 0.5 MG Budesonide 0.5 mg BID NEB 04/16/24 22:00 04/29/24 06:39 0.5 MG Fentanyl Citrate 250 ml @ 2.5 mls/hr Q24H IV 04/20/24 22:30 04/29/24 05:00 20 MLS/HR Aspirin 81 mg DAILY PO 04/22/24 10:00 04/29/24 11:06 81 MG Enteral Nutritional Formula 1,000 ml 30ML/HR GT 04/21/24 14:45 04/29/24 12:53 1,000 ML Piperacillin Sod/ Tazobactam Sod 100 ml @ 25 mls/hr Q8H IV 04/22/24 00:00 04/29/24 11:06 25 MLS/HR Pantoprazole Sodium 40 mg DAILY IV 04/22/24 10:00 04/29/24 11:06 40 MG Heparin Sodium (Porcine) 5,000 units Q12HR SC 04/22/24 22:00 Hold 04/28/24 11:04 5,000 UNITS Purified Water 200 ml Q4HR GT 04/28/24 10:00 04/29/24 14:12 200 ML Norepinephrine Bitartrate 250 ml @ 1.875 mls/ hr Q24H IV 04/28/24 18:45 04/29/24 12:22 3.75 MLS/HR Examination: LUNGS:Normal, CVS:Normal, MSK:Normal laboratory and microbiology Laboratory Tests 04/29/24 05:03 Test 04/29/24 05:03 Range/Units Serum Glucose 130 H 74-106 mg/dL Microbiology Date/Time Source Procedure Growth Status 04/22/24 18:03 Urine - Whipple Port Urine Culture - Final Yeast, not Arlet albicans Complete 04/22/24 15:16 Blood Blood Culture - Final NO GROWTH AFTER 5 DAYS OF INCUBATION. Complete 04/18/24 15:02 Sputum Gram Stain - Final Complete 04/18/24 15:02 Respiratory Culture - Final Yeast, not Arlet albicans Complete 04/08/24 08:02 Thoracic Fluid Gram Stain - Final Complete 04/08/24 08:02 Thoracic Fluid Anaerobic Culture - Final Complete 04/08/24 08:02 Thoracic Fluid Aerobic Culture - Final Complete 04/01/24 11:19 Nose MRSA Screen - Final Complete Problem List/Assessment/Plan Problem List/Assessment/Plan Acute kidney injury due to ATN/hemodynamic from shock, status post intermittent hemodialysis Acute respiratory failure, intubated on ventilator NSTEMI septic shock empyema status post thoracotomy and surgical drainage and chest tube placement metabolic acidosis resolved b/l renal stones w/ hydronephrosis morbid obesity hyperkalemia, resolved Hypernatremia due to insensible water loss afib RVR Hypokalemia Recommendations Kidney function slowly is improving off hemodialysis Increased urine outputt Strict I&Os IV antibiotics IV fluid half NS at 70 cc/hour KCL replacement free water down NG tube Urology consult We will continue to follow Plan discussed with: Other (Nurse) Dietary Evaluation Review Comments: 1) If GI is accessible consider Nepro 1.8 @ 30 ml/hr goal rate as tolerated with current rate of propofol on board. 2) If pt remains NPO >7 days consider TPN to meet at least 75% of estimated needs 3) If pt continues to receive HD, advance pt diet when medically feasible to a Renal Standard diet modified per [employer]CH [employer]IVER recommendations 4) If HD is discontinued and GFR is within normal range, advance pt diet to a Regular diet, modified per L[employer]CH TR[employer]IVER recommendations 5)If HD is discontinued and GFR lies within STG 1-4, advance pt diet to a Renal Specific K2,lowphos,HECTOR,2gmNa,80gPro diet 6) If HD is discontinued and if GFR returns to normal levels then ALEXANDRA 1 pkt BID with meals may be considered to aid with wound healing 7) Continue current plan of care Expected Outcomes/Goals: 1) Pt to receive nutrition support within 7 days of NPO status 2) Pt labs to improve 3) Pt diet to advance 4) F/U in 2-3 days SWETA CHAND MD Apr 29, 2024 14:30
--- NOTE | 2024-04-29 17:26 | DVHPNRES ---
Progress Note Date Seen: Apr 29, 2024 Resident Creating Document: JUAN VAZQUEZ RESIDENT Has the PT tested + for MRSA If YES, has PT been informed?: No Medical Necessity Reason Pt with a Central, PICC or Fol: Yes The following are medically ne: Central Line, Whipple Catheter Reason for whipple catheter: Strict I&O Subjective Review of Systems HPI: 68/female, past medical history: Unknown Patient is 68-year-old female who was brought to the hospital from [facility] for higher level of care. Patient was initially treated facility for shortness of breath and was transferred to our hospital. During initial ED evaluation patient found to be tachypneic with severe respiratory failure, atrial fibrillation. Initially patient required oxygenation via non- rebreather mask however patient intubated to protect airway. Patient started on IV antibiotic, requiring vasopressor and amiodarone drip initially. With further evaluation chest ultrasound showed bilateral pleural effusion, CT scan of chest and abdomen was performed which showed partially loculated right pleural effusion and consolidation in right middle and lower lobe. Patient also found to have right hydronephrosis with 1.9 cm calculus into right UPJ. Radiologist performed right-sided thoracentesis which removed 250 mL of fluid. L patient was placed with right-sided chest tube for loculated empyema. Patient underwent right thoracoscopy with evacuation empyema with insertion of chest tube. Patient was extubated on April 16/2024. Patient was reintubated back given possible STEMI and transferred to left heart catheterization. Principal Ios Developer did angioplasty for complete total occlusion of mid LAD. Started on heparin drip, aspirin and Plavix. Patient continued to have x-ray findings with right lower lobe opacity. Continued on antibiotic. Continued require vasopressors, chest type continued to drain. No air leak. ROS: Not obtained as patient is intubated Today patient was seen and examined at bedside. Patient underwent right thoracotomy with decortication and evacuation of loculated pleural effusion, insertion of two chest tube, removal of old chest tube. Both chest tube continued to drain. No air leak. Patient continued to be on ventilator, sedated. ROS not obtain given sedated. Objective vital signs Vital Sign Date Time Temp Pulse Resp B/P (MAP) Pulse Ox O2 Delivery O2 Flow Rate FiO2 04/29/24 16:37 106/54 04/29/24 16:30 71 24 100 30 04/29/24 16:00 Mechanical Ventilator+ 04/29/24 14:30 98.4 209.1 Total Intake and Output 04/28/24 04/28/24 04/29/24 15:00 23:00 07:00 Intake Total 1199.375 ml 2267.375 ml 1004.000 ml Output Total 125 ml 10 ml Balance 1199.375 ml 2142.375 ml 994.000 ml medications Current Medications Medications Dose Ordered Sig/Destini Route Start Time Stop Time Status Last Admin Dose Admin Heparin Sodium/ Dextrose 250 ml @ 18 mls/hr [id number] IV 03/31/24 23:45 UNV Midazolam HCl 50 ml @ 1 mls/hr Q24H IV 04/01/24 01:30 04/29/24 14:10 6 MLS/HR Albumin Human 100 ml @ 100 mls/hr KIRAN PRN IV 04/03/24 07:00 Sodium Chloride 10 ml QSHIFT@10,22 IV 04/09/24 22:00 04/29/24 11:46 10 ML Iron Sucrose 110 ml @ 110 mls/hr DAILY@1200 IV 04/10/24 12:00 Hold 04/19/24 13:25 110 MLS/HR Amiodarone HCl 200 mg Q12HR PO 04/10/24 22:00 UNV Amiodarone HCl 200 mg Q12HR PO 04/10/24 22:00 04/29/24 11:06 200 MG Albuterol 2.5 mg Q4HR NEB 04/16/24 18:00 04/29/24 14:18 2.5 MG Ipratropium [place] 0.5 mg Q4HR NEB 04/16/24 18:00 04/29/24 14:17 0.5 MG Budesonide 0.5 mg BID NEB 04/16/24 22:00 04/29/24 06:39 0.5 MG Fentanyl Citrate 250 ml @ 2.5 mls/hr Q24H IV 04/20/24 22:30 04/29/24 16:37 20 MLS/HR Aspirin 81 mg DAILY PO 04/22/24 10:00 04/29/24 11:06 81 MG Enteral Nutritional Formula 1,000 ml 30ML/HR GT 04/21/24 14:45 04/29/24 12:53 1,000 ML Piperacillin Sod/ Tazobactam Sod 100 ml @ 25 mls/hr Q8H IV 04/22/24 00:00 04/29/24 16:05 25 MLS/HR Pantoprazole Sodium 40 mg DAILY IV 04/22/24 10:00 04/29/24 11:06 40 MG Heparin Sodium (Porcine) 5,000 units Q12HR SC 04/22/24 22:00 Hold 04/28/24 11:04 5,000 UNITS Purified Water 200 ml Q4HR GT 04/28/24 10:00 04/29/24 14:12 200 ML Norepinephrine Bitartrate 250 ml @ 1.875 mls/ hr Q24H IV 04/28/24 18:45 04/29/24 12:22 3.75 MLS/HR Examination General: Patient is intubated and sedated. HEENT: Normocephalic, atraumatic, moist mucous membranes Respiratory/pulmonary: There are no breath sounds audible in the right lung base and diminished breath sounds on the left lung as well. Presence of two chest tube with connection to drainage. No air leak. Cardiovascular: Heart rate and rhythm is oscillating significantly from sinus rhythm to AFib rate controlled to AFib with RVR. No murmurs at this time. Abdomen: Abdomen slightly distended, there is no pain to palpation in any of the abdominal quadrants, no palpable masses. Extremities: There is minimal swelling in the lower extremities bilaterally. Peripheral Pulses: 3+ Radial (R). 3+ Radial (L). 3+ Dorsalis pedis (R). 3+ Dorsalis pedis(L) Skin: There is dry skin in bilateral lower extremities with scales and excoriations. Neurological: Sedated, RASS - laboratory and microbiology Laboratory Tests 04/29/24 05:03 Test 04/29/24 05:03 Range/Units Serum Glucose 130 H 74-106 mg/dL Microbiology Date/Time Source Procedure Growth Status 04/29/24 08:17 Pleural Fluid Gram Stain - Final Resulted 04/29/24 08:17 Pleural Fluid Anaerobic Culture Pending Resulted 04/29/24 08:17 Pleural Fluid Aerobic Culture Pending Resulted 04/22/24 18:03 Urine - Whipple Port Urine Culture - Final Yeast, not Arlet albicans Complete 04/22/24 15:16 Blood Blood Culture - Final NO GROWTH AFTER 5 DAYS OF INCUBATION. Complete 04/18/24 15:02 Sputum Gram Stain - Final Complete 04/18/24 15:02 Respiratory Culture - Final Yeast, not Arlet albicans Complete 04/01/24 11:19 Nose MRSA Screen - Final Complete Problem List/Assessment/Plan Problem List/Assessment/Plan Neurology Sedation -currently on midazolam and fentanyl Respiratory Acute hypoxic respirtory failure likel due to right-sided pleural effusion/empyema and consolidation on right middle and lower lobe -on mechanical ventilation: Respiratory rate 16, tidal volume 500, FiO2 30%, peep 5 cm H2O -presence of two chest tube: Minimal drainage, no air leak. -chest x-ray on 04/22/2022: Right-sided pleural effusion, right lower lobe opacification. -IV antibiotic with Zosyn -CT of the chest and abdomen showed moderate partial loculated right pleural effusion and consolidation on right middle/lower lobes. Mild cardiomegaly and interstitial pulmonary edema. It also showed right hydronephrosis with 1.9 cm calculus into the right UPJ. There is also a 2.6 cm staghorn appearing calculus causing mid to lower pole left hydronephrosis. -Respiratory culture: Yeast, not Arlet on 04/17/2024. Repeat culture pending. -CT chest(04/22/24):1. Moderate intermediate density right perinephric fluid extending into the bilateral extrarenal pelvis and also to a lesser extent in the peritoneal cavity, which could reflect retroperitoneal hematoma. Evaluation for active bleeding limited on this examination. 2. Moderate partially loculated right pleural effusion with a right thoracostomy tube terminating in the anterior medial right upper lobe. 3. Development of a small amount of air in the right pleural space at the level of the right middle lobe concordant with pneumothorax. 4. Bilateral renal calculi with a staghorn appearing calculus on the left. 5. Dependent consolidations of the [id number]-[id number]-vmor-left lower lobes which could reflect atelectasis and/or pneumonia (which can be on the basis of aspiration. 6. Mild cardiomegaly, mild aortic valve calcifications and moderate coronary artery calcifications. Mild Interstitial pulmonary edema. -Underwent tracheostomy (04/23/24) -Surgical(04/29/24): Right thoracotomy, evacuation of right empyema. Irrigation and drainage of right chest cavity. Septic shock in the setting of loculated right-sided pleural effusion and pneumonia -continue management of acute respiratory failure likely due to empyema. -Off vasopressor - continue zosyn -Respiratory culture positive for yeast on 04/17/2024. S/P Tracheostomy (04/23/24) Cardiology Acute on chronic systolic/diastolic heart failure -echocardiogram is showing an LVEF of 55-60% with increased RVSP at 48 mmHg and no pericardial effusion -Continue monitor I/O -repeat x ray In AM NSTEMI type II likely due to above -continue current management. -CAD: DIRECTOR OF CASINO of mid LAD (considered old) with full of thrombus. s/p balloon angioplasty with minimal / partial result Atrial fibrilation with RVR: Rate controlled -continue amiodarone 200 mg p.o. b.i.d. -heparin 5000 IU BID Hold before surgery -Cardiology on board Nephrology Hypernatremia -repeat sodium level in a.m. -Free water :200ml GT Q4 Bilateral hydronephrosis with left-sided staghorn calculi and right UVJ calculi -CT scan of the chest and abdomen showed right hydronephrosis with 1.9 cm calculus into the right UPJ, there was also a 2.6 cm staghorn appearing calculus causing mid to lower pole left hydronephrosis. -nephrology on board -drainage with Whipple catheter. -continue I/O monitoring CHRISTOPH due to VMN initially likely in setting of septic shock: Resolved -most likely secondary to bilateral renal calculi -nephrology and urology on board -monitor kidney function Hypokalemia -replenish Hematogy Normocytic anemia -2 Unit of PRBCS given No Nutrition Nepro 15 mL/hour via G-tube. Lines: Right upper arm PICC line: Placed on 04/09/2024 PUD prophylaxis: Protonix DVT prophylaxis: Heparin Goals of care discussed with the daughter and brother at bedside for >31min by Dr. Jones previously Critical time spent > 69 min Plan discussed with Dr Perez Plan discussed with: Other (Sister) My Orders My Orders Orders - JUAN VAZQUEZ RESIDENT Procedure Category Date Status Time Norepinephrine 8 PHA 04/28/24 In Process Mg/250ml Kit 18:45 Abg W/ Co-Ox RT 04/29/24 Logged 04:00 Dietary Evaluation Review Comments: 1) If GI is accessible consider Nepro 1.8 @ 30 ml/hr goal rate as tolerated with current rate of propofol on board. 2) If pt remains NPO >7 days consider TPN to meet at least 75% of estimated needs 3) If pt continues to receive HD, advance pt diet when medically feasible to a Renal Standard diet modified per SAP MOBILITY ARCHITECT recommendations 4) If HD is discontinued and GFR is within normal range, advance pt diet to a Regular diet, modified per SAP MOBILITY ARCHITECT recommendations 5)If HD is discontinued and GFR lies within STG 1-4, advance pt diet to a Renal Specific K2,lowphos,HECTOR,2gmNa,80gPro diet 6) If HD is discontinued and if GFR returns to normal levels then ALEXANDRA 1 pkt BID with meals may be considered to aid with wound healing 7) Continue current plan of care Expected Outcomes/Goals: 1) Pt to receive nutrition support within 7 days of NPO status 2) Pt labs to improve 3) Pt diet to advance 4) F/U in 2-3 days Date of Service: Apr 29, 2024 Billing Provider: LAURIE JONES MD Common Visit Codes: [id number] CARE 30-74 MIN JUAN VAZQUEZ RESIDENT Apr 29, 2024 17:26 LAURIE JONES MD Apr 30, 2024 11:18
[2024-04-30] VITALS (113 sets, daily range): BP systolic 91–125; BP diastolic 39–66; PULSE 62–82; RESP 11–25; TEMP 98.1–99.3; O2SAT 90–100
[2024-04-30 04:24] LABS: Basophils # (auto) 0.1 10 ^3/uL (0-0.2); Basophils % (auto) 0.4 % (0.0-2.0); Eosinophils # (auto) 0.3 10 ^3/uL (0-0.8); Eosinophils % (auto) 1.8 % (0.0-7.0); Hematocrit 29.1 % (36.0-46.0); Lymphocytes % (auto) 6.8 % (10.0-50.0); Mean Corpuscular Hemoglobin 28.8 pg (28.0-32.0); Mean Corpuscular Hgb Conc. 31.1 g/dL (32.0-36.0); Mean Corpuscular Volume 92.5 fL (80.0-100.0); Monocytes # (auto) 0.9 10 ^3/uL (0-1.3); Monocytes % (auto) 5.9 % (0.0-12.0); Neutrophils # (auto) 13.1 10 ^3/uL (1.6-8.6); Neutrophils % (auto) 85.1 % (37.0-80.0); Nucleated Red Blood Cells % 0.1 %; Platelet Count (auto) 187 10^3/uL (140-450); Red Blood Cells 3.14 10^6/uL (4.0-5.20); White Blood Cell 15.3 10^3/uL (4.4-10.8)
[2024-04-30 04:32] LABS: Red Cell Distribution Width 25.6 % (11.8-14.3)
[2024-04-30 04:45] LABS: Anion Gap 11 (5-15); Carbon Dioxide 21 mmol/L (20-31); Chloride 112 mmol/L (98-107); Potassium 3.5 mmol/L (3.5-5.1); Sodium 144 mmol/L (136-145)
[2024-04-30 04:46] LABS: Calcium 8.1 mg/dL (8.7-10.4)
--- NOTE | 2024-04-30 04:48 | DVH ---
CHEST RADIOGRAPH Indication:on vent Technique: Single frontal view of the chest was obtained COMPARISON: XY CHEST PORTABLE on DOS: 04/29/24, XY CHEST PORTABLE on DOS: 04/29/24, XY CHEST PORTABLE on DOS: 04/28/24 FINDINGS: Lines and Tubes: Tracheostomy, right chest tubes and enteric catheter in satisfactory position. Right PICC in satisfactory position. Lungs: Multifocal airspace disease. Pleura: No effusion. No pneumothorax. Cardiomediastinal contours: Unremarkable Bones: Unremarkable IMPRESSION: Increased congestion. No other significant interval change.
[2024-04-30 04:51] LABS: BUN/Creatinine Ratio 23.9 (10.0-20.0); Blood Urea Nitrogen 28 mg/dL (9-23); Glucose 127 mg/dL (74-106)
--- NOTE | 2024-04-30 06:30 | DVHPN2 ---
Progress Note - Dictate Date Seen: Apr 30, 2024 Has the PT tested + for MRSA If YES, has PT been informed?: No Medical Necessity Reason Pt with a Central, PICC or Fol: Yes The following are medically ne: Central Line, Whipple Catheter Reason for whipple catheter: Strict I&O vital signs Vital Sign Date Time Temp Pulse Resp B/P (MAP) Pulse Ox O2 Delivery O2 Flow Rate FiO2 04/30/24 05:00 98.4 70 19 107/52 (70) 96 209.1 04/30/24 04:20 30 04/30/24 04:00 Mechanical Ventilator+ Total Intake and Output 04/29/24 04/29/24 04/30/24 15:00 23:00 07:00 Intake Total 328.000 ml 1062.375 ml 301.0 ml Output Total 948 ml Balance 328.000 ml 114.375 ml 301.0 ml medications Current Medications Medications Dose Ordered Sig/Destini Route Start Time Stop Time Status Last Admin Dose Admin Heparin Sodium/ Dextrose 250 ml @ 18 mls/hr [id number] IV 03/31/24 23:45 UNV Midazolam HCl 50 ml @ 1 mls/hr Q24H IV 04/01/24 01:30 04/29/24 21:52 6 MLS/HR Albumin Human 100 ml @ 100 mls/hr KIRAN PRN IV 04/03/24 07:00 Sodium Chloride 10 ml QSHIFT@22 IV 04/09/24 22:00 04/29/24 21:50 10 ML Iron Sucrose 110 ml @ 110 mls/hr DAILY@1200 IV 04/10/24 12:00 Hold 04/19/24 13:25 110 MLS/HR Amiodarone HCl 200 mg Q12HR PO 04/10/24 22:00 UNV Amiodarone HCl 200 mg Q12HR PO 04/10/24 22:00 04/29/24 21:50 200 MG Albuterol 2.5 mg Q4HR NEB 04/16/24 18:00 04/30/24 02:15 2.5 MG Ipratropium [place] 0.5 mg Q4HR NEB 04/16/24 18:00 04/30/24 02:15 0.5 MG Budesonide 0.5 mg BID NEB 04/16/24 22:00 04/29/24 18:49 0.5 MG Fentanyl Citrate 250 ml @ 2.5 mls/hr Q24H IV 04/20/24 22:30 04/29/24 16:37 20 MLS/HR Aspirin 81 mg DAILY PO 04/22/24 10:00 04/29/24 11:06 81 MG Enteral Nutritional Formula 1,000 ml 30ML/HR GT 04/21/24 14:45 04/29/24 12:53 1,000 ML Piperacillin Sod/ Tazobactam Sod 100 ml @ 25 mls/hr Q8H IV 04/22/24 00:00 04/29/24 23:28 25 MLS/HR Pantoprazole Sodium 40 mg DAILY IV 04/22/24 10:00 04/29/24 11:06 40 MG Heparin Sodium (Porcine) 5,000 units Q12HR SC 04/22/24 22:00 Hold 04/28/24 11:04 5,000 UNITS Purified Water 200 ml Q4HR GT 04/28/24 10:00 04/30/24 05:43 200 ML Norepinephrine Bitartrate 250 ml @ 1.875 mls/ hr Q24H IV 04/28/24 18:45 04/29/24 12:22 3.75 MLS/HR laboratory and microbiology Laboratory Tests 04/30/24 03:59 Test 04/30/24 03:59 Range/Units Serum Glucose 127 H 74-106 mg/dL Assessment/Plan Still on Levophed Days ago: There was question about EKG showing STEMI. Patient was intubated again by primary team and taken to Pharmacy Operations Coordinator. 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 s/p balloon angioplasty with minimal / partial result s/p thoracoscopy and chest tube placement Patient is a 68-year-old female who was transferred from [facility]. She originally presented to [facility] for shortness of breath ongoing for few days. She is intubated and is being managed in ICU. Information was obtained by reviewing the chart and communicating with staff. Reportedly, she presented with respiratory failure to [facility] (oxygen saturation was 88%) and over there was found to have white blood cell count of 26.6, hemoglobin of 11.1, creatinine of 5.6, potassium of 5.6 and troponin of 1.01. She was given 365 mg of aspirin in [facility]. She did have an episode of atrial fibrillation with RVR with questionable ST changes and was transferred to our facility for further care. She was also found to have right pleural effusion in [facility] and was diagnosed with non-STEMI. s/p tracheostomy, on vent support. Obese. Mucosa is pale. Scattered rhonchi in the lungs is heard. Cardiac: Regular, no thrill/gallop. Abdomen is soft with increased bowel sounds. There is no gross mass. Extremities reveal 1+ edema bilaterally. Available past medical history includes obesity and questionable history of psoriasis. WBC: 25.3 - 23.7 - 20.2 - 20.5 - 17.6 - 18.4 - 19.2 - 19.4 - 22.2 - 16.4 - 16.1 - 19.5 - 14.7 - 12.3 - 9.8 - 10.0 - 8.3 - 9.2 - 10.2 - 11.4 - 10.3 - 12.0 - 13.8 - 16.3 - 18.0 - 18.2 - 16.6 - 15.6 - 11.7 - 9.8 - 9.1 - 11.4 - 12.3 - 15.7 - 15.3 Hemoglobin: 10.8 - 9.1 - 8.5 - 8.4 - 8.8 - 8.6 - 8.9 - 8.1 - 8.4 - 8.1 - 8.1 - 8.2 - 8.0 - 7.4 - 7.4 - 7.7 - 7.1 - 8.0 - 7.5 - 8.8 - 7.1 - 9.0 - 8.9 - 9.0 - 8.4 - 8.4 - 8.4 - 8.1 - 8.2 - 8.0 - 8.0 - 8.0 - 7.8 - 7.1 - 10.8 - 9.0 D-dimer: 3.62 Creatinine: 5.67 - 5.78 - 5.41 - 4.92 - 4.55 - 4.68 - 4.71 - 4.64 - 4.48 - 3.83 - 3.66 - 3.65 - 3.25 - 2.82 - 2.41 - 2.34 - 2.01 - 1.90 - 1.60 - 1.83 - 1.73 - 1.74 - 1.76 - 1.78 - 1.82 - 1.94 - 1.99 - 1.93 - 1.95 - 2.39- 2.09 - 1.81 - 1.54 - 1.41 - 1.32 - 1.31 - 1.17 Potassium: 6.0 - 6.3 - 6.1 - 6.0 - 5.3 - 5.0 - 4.9 - 4.8 - 5.1 - 5.4 - 4.9 - 5.3 - 4.8 - 4.5 - 4.7 - 4.3 - 4.2 - 3.9 - 4.6 - 3.8 - 3.5 - 3.3 - 3.6 - 3.6 - 4.0 - 3.5 - 4.0 - 3.7 - 3.6 - 3.5 - 3.4 - 4.0 - 3.9 - 3.0 - 3.4 - 3.3 - 3.6 - 3.3 - 3.0 - 4.0 - 3.5 Lactic acid: 3.3 - 3.4 - 2.3 - 2.5 - 2.5 - 2.7 - 2.4 - 2.5 - 3.1 - 2.3 - 1.7 - 1.7 TSH: 1.71 BNP: 274.69 - 1944.81 - 373.79 Troponin (high sensitive): 1478 - 4135 - 0473 - 6637 - 638 - 1452 Blood culture: positive Pleural fluid culture: E-coli Digoxin level: 2.09 Stool OB: positive Chest x-ray revealed: IMPRESSION: 1. Moderate right pleural effusion. 2. Cardiomegaly with mild pulmonary vascular congestion bilaterally. Repeat chest x-ray revealed: IMPRESSION: 1. Endotracheal tube and gastric tubes in place as described. 2. Right IJ central venous catheter projects over the lower SVC. 3. Mild cardiomegaly and prominence of the pulmonary vasculature. 4. Moderate to large right pleural effusion. Repeat chest x-ray revealed: IMPRESSION: Similar lung aeration with large right pleural effusion. No pneumothorax seen. Stable lines and tubes. Repeat chest x-ray revealed: IMPRESSION: Similar lung aeration with large right pleural effusion. No pneumothorax seen. Stable lines and tubes. Repeat chest xry revealed: Lines and tubes: ET in the mid thoracic trachea. NG crosses midline. Right CVC is stable. Left HD catheter projects over the mediastinum. Cardiomediastinal silhouette: Enlarged Pulmonary vasculature: prominent Lung expansion: low Lung airspace: patchy bilateral airspace opacity. Lung interstitium: normal Pleura: Similar large right effusion. Pneumothorax: no Bones: Unremarkable Other: no IMPRESSION: Lines and tubes, as above. Similar lung aeration bilaterally with a right pleural effusion and patchy airspace opacities. Repeat chest xry revealed: IMPRESSION: 1. Stable position of the support lines and tubes. 2. Interstitial and alveolar opacities. Repeat chest xry revealed: IMPRESSION: Unchanged multifocal airspace disease. Small to moderate right pleural effusion ; possibly loculated. Repeat chest xry revealed: IMPRESSION: Lines and tubes in satisfactory position. No significant interval change. Repeat chest xry revealed: IMPRESSION: 1. Support lines and tubes in appropriate position. 2. Pulmonary vascular congestion. 3. Bilateral pleural effusions, right greater than left. Repeat chest xry revealed: IMPRESSION: 1. Support lines and tubes in appropriate position. 2. Pulmonary vascular congestion. 3. Bilateral pleural effusions, right greater than left. Repeat chest xry revealed: IMPRESSION: Interval placement of right chest tube which projects deep into the right hilar region. Repeat chest xry revealed: IMPRESSION: No interval change Repeat chest xry revealed: Findings/IMPRESSION: Right IJ CVC terminating in the SVC. Endotracheal tube projected 5 cm superior to the mili. Enteric tube projected below the GE junction. Right-sided PICC projects terminating near the cavoatrial junction. Small bilateral pleural effusions and/or atelectasis with superimposed infection not excluded. Repeat chest xry revealed: MPRESSION: 1. Bilateral pleural effusions and airspace disease right greater than left. Repeat chest xry revealed: IMPRESSION: 1. Endotracheal tube terminates 6.0 cm above the mili, previously 3.1 cm above the mili. Otherwise, No significant interval change. Repeat chest xry revealed: IMPRESSION: 1. Endotracheal tube terminates 6.0 cm above the mili, previously 3.1 cm above the mili. Otherwise, No significant interval change. Repeat chest xry revealed: IMPRESSION: Lines and tubes in satisfactory position. No significant interval change. Repeat chest xry revealed: IMPRESSION: Lines and tubes in satisfactory position. No significant interval change. Repeat chest xry revealed: IMPRESSION: Lines and tubes in satisfactory position. No significant interval change. Repeat chest xry revealed: IMPRESSION: Lines and tubes in satisfactory position. No significant interval change. Repeat chest xry revealed: IMPRESSION: Endotracheal tube projects in appropriate position. Otherwise no significant change Repeat chest xry revealed: FINDINGS: Lines and Tubes: Right PICC and enteric catheter and right chest tube in satisfactory position. Endotracheal tube projects 3.8 cm above the level of the mili. Lungs: Bibasilar opacities. Pleura: Possible small right pleural effusion. No pneumothorax. Cardiomediastinal contours: Unremarkable Bones: Unremarkable IMPRESSION: No significant change compared to prior exam. Repeat chest xry revealed: IMPRESSION: Lines and tubes in satisfactory position. No significant interval change. Repeat chest xry revealed: IMPRESSION: 1. Bibasilar opacities representing pleural effusions and airspace disease similar to prior study. 2. Satisfactory position of the support lines and tubes. Repeat chest xry revealed: IMPRESSION: 1. Stable appearance of the chest. Unchanged position of the support lines and tubes. Repeat chest xry revealed: Lines and Tubes: - Tracheostomy in satisfactory position - Enteric catheter in satisfactory position - Right PICC (Peripherally Inserted Central Catheter) in satisfactory position - Right chest tube in satisfactory position Lungs: - Diffuse pulmonary vascular congestion Pleura: - Possible small bilateral pleural effusions Cardiomediastinal contours: - Unremarkable Bones: Unremarkable IMPRESSION: Tracheostomy in satisfactory position. No other significant interval change. Repeat chest xry revealed: IMPRESSION: 1. Stable pulmonary congestion, patchy right mid to lower lung zone opacities. 2. Stable position of the support lines and tubes. Repeat chest xry revealed: IMPRESSION: Lines and tubes in satisfactory position. No significant interval change. Repeat chest xry revealed: IMPRESSION: Lines and tubes in satisfactory position. No significant interval change. Repeat chest xry revealed: IMPRESSION: Examination is markedly limited by patient positioning. Tracheostomy tube tip appears at the thoracic inlet likely within the trachea. There is a right chest tube right PICC line with tip at the superior vena cava. Bilateral effusions and moderate pulmonary vascular congestion as well as cardiomegaly. No pneumothorax. Repeat chest xry revealed: IMPRESSION: 1. Stable position of the support lines and tubes. 2. Bibasilar opacities similar to prior study. Repeat chest xry revealed: IMPRESSION: 1. Support lines and tubes similar to the prior exam. 2. No significant change in bilateral airspace disease. Repeat chest xry revealed: IMPRESSION: 1. No significant change in position of the support lines and tubes. 2. Slightly improved aeration in the right lung. Repeat chest xry revealed: IMPRESSION: Increased congestion. No other significant interval change. Renal ultrasound revealed: IMPRESSION: 1. Right kidney measures 13.4 cm. Decreased cortical thickness on the right. 2. Left kidney measures 10.2 cm. 3. No hydronephrosis on the right grade 1 hydronephrosis on the left. 4. Bilateral renal calculi. CT scan of the chest/abdomen and pelvis revealed: IMPRESSION: 1. Moderate partially loculated right pleural effusion and consolidations in the right middle and lower lobes which could be pneumonia and/or atelectasis. 2. Mild cardiomegaly, mild interstitial pulmonary edema, and body wall edema. 3. There is a 1.9 cm calculus in the right UPJ with mild right hydronephrosis 4. There is a 2.6 cm somewhat staghorn appearing calculus in the left renal pelvis and UPJ causing mild predominantly mid to lower pole left hydronephrosis. Mild soft tissue stranding about the left renal pelvis which could be due to obstruction or superimposed infection. Correlate with urinalysis. 5. Partial duplication of the left renal collecting system without hydronephrosis in the upper pole. 6. Moderate right perinephric, right retroperitoneal, and bilateral extraperitoneal pelvis low-density fluid and very mild left retroperitoneal low-density fluid. This could be fluid related to bilateral renal obstructions and forniceal ruptures versus evolved retroperitoneal hematoma. This is suboptimally evaluated without intravenous contrast. 7. Fluid-filled small and large bowel loops which may be physiologic or related to enterocolitis and could be manifesting as loose stools and/or diarrhea. 8. Prominent endometrium measuring at least 2.8 cm, suboptimally evaluated by CT. Recommend characterization with nonemergent pelvic ultrasound if clinically indicated. 9. Mild hepatosplenomegaly. 10. Moderate three-vessel calcified coronary artery disease and mild aortic valve calcification. 11. Right IJ central venous catheter in place terminating in the low SVC. 12. Small soft tissue stranding in the right supraclavicular neck which could be blood products. 13. Endotracheal tube terminates above the mili. Repeat CT of chest / abdomen and pelvis revealed: IMPRESSION: 1. Moderate intermediate density right perinephric fluid extending into the bilateral extrarenal pelvis and also to a lesser extent in the peritoneal cavity, which could reflect retroperitoneal hematoma. Evaluation for active bleeding limited on this examination. 2. Moderate partially loculated right pleural effusion with a right thoracostomy tube terminating in the anterior medial right upper lobe. 3. Development of a small amount of air in the right pleural space at the level of the right middle lobe concordant with pneumothorax. 4. Bilateral renal calculi with a staghorn appearing calculus on the left. 5. Dependent consolidations of the [id number]-left lower lobes which could reflect atelectasis and/or pneumonia (which can be on the basis of aspiration. 6. Mild cardiomegaly, mild aortic valve calcifications and moderate coronary artery calcifications. Mild Interstitial pulmonary edema. CT of the head revealed: IMPRESSION: 1. No acute intracranial abnormality. 2. Generalized cerebral volume loss and mild chronic microvascular ischemic change. 3. Partially imaged endotracheal tube. Chest ultrasound revealed: Findings/Impression: There is a trace bilateral pleural effusion. Thoracentesis: FINDINGS: Moderate size, complex and septated right pleural effusion. Aspirated fluid is thick and green in consistency. IMPRESSION: Right thoracentesis with 250 mL removed for laboratory analysis. EKG in [facility] revealed sinus tachycardia, poor R-wave progression old inferior wall [place]. later EKG revealed atrial fibrillation with RVR. Repeat EKGs questioned STEMI. but resolved later. Telemetry reveals sinus rhythm, occasions of A-fib with RVR, SVT Echocardiogram revealed: Technically limited study secondary to poor acoustic windows. Left ventricle: Left ventricle was normal-sized. Mild concentric left ventricular hypertrophy was seen. LVEF was 55-60%. No gross wall motion abnormality was observed, but its presence can not be ruled out on the basis of this study. Right ventricle is mildly dilated with normal systolic function. Left atrium was mildly dilated. Right atrium was normal-sized. Aortic valve was trileaflet. There was no aortic insufficiency. There was aortic sclerosis with no stenosis. There was trivial mitral/tricuspid regurgitation. Pulmonary valve was not well visualized. Right ventricular systolic pressure was assessed around 48 mm Hg. There was no pericardial effusion. Left heart cath revealed: One-vessel coronary artery disease, CROWN ATTACHER of mid LAD, Attempted to open up the LAD CROWN ATTACHER, partially/minimally successful (status post balloon angioplasty). LVEF of 25% (dilated LV). Cardiac suggestion for management: Dual antiplatelet therapy (loaded with aspirin and Plavix). Guideline directed medical therapy for systolic heart failure Repeat echo revealed: Technically limited study secondary to poor acoustic windows. Left ventricle: Concentric left ventricular hypertrophy was seen anteroapical hypokinesia was seen. The LVEF was around 40%. Right ventricular was normal sized with normal systolic function. Atria were not well-visualized. Aortic valve: Aortic valve was not well visualized. There was no aortic stenosis/insufficiency. Mild mitral/tricuspid regurgitation was observed. Pulmonary valve was not well visualized. Right ventricular systolic pressure was assessed around 35 mm Hg. There was no pericardial effusion. Patient is a 68-year-old morbidly obese patient who presented with respiratory failure to the hospital. Presentation is in favor of sepsis/septic shock. Multiorgan failure is observed. She is intubated and on vent support. She is on multiple pressor support. Life findings are in favor of acute renal failure. She also is known to have nephrolithiasis with history of staghorn calculi. Cardiac-ceballos, the patient did have episode of atrial fibrillation with RVR. She is found to have increased troponin. Presentation questions non-STEMI and possibly type 2 ischemia. Recognizing the presentation, ischemic workup should be postponed after clinical stability (only if patient recovers higher brain function). Is being followed by Nephrology. Had episodes of tachyarrhythmia. Loaded with Digoxin. Positive cultures. Repeated a-fib with RVR. Was evaluated by Interventional Cardiology environmental inspector for STEMI (not considered STEMI). 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 s/p balloon angioplasty with minimal / partial result. s/p repeat right thoracotomy and right lung decortication and chest tube placement. Septic shock Multiorgan failure Acute respiratory failure on vent support Acute renal failure Nephrolithiasis Staghorn calculi Hydronephrosis Abnormal troponin, non-STEMI Atrial fibrillation with RVR Paroxysmal AFib Acute heart failure, diastolic Hepatosplenomegaly Pleural effusion Status post thoracentesis Morbid obesity s/p Cardioversion for A-fib with RVR s/p thoracoscopy and chest tube placement CAD: CROWN ATTACHER of mid LAD (considered old) with full of thrombus. s/p balloon angioplasty with minimal / partial result s/p tracheostomy s/p repeat thoracotomy and right lung decortication Cardiac suggestion for management: Manage in ICU Follow-up electrolytes and kidney function tests and correct abnormalities Pressure support to keep mean arterial pressure above 65 Amiodarone oral/O mg BID Daily aspirin (81 mg daily) s/p thoracoscopy and chest tube placement s/p repeat thoracotomy, right lung decortication and chest tube placement. s/p tracheostomy IV metoprolol PRN for a-fib with RVR episodes. Sepsis workup and management as per primary team Evaluation and management of respiratory failure as per primary team/Pulmonary Evaluation and management of nephrolithiasis/hydronephrosis as per primary/Urology Evaluation and management of acute renal failure as per Nephrology Further evaluation and management as per above and clinical course. A total of 75 minutes was spent reviewing the patient record, examining the patient, making a diagnostic and therapeutic plan, discussing this plan with medical personnel, following up on diagnostic studies and following the patient for clinical stability excluding any and all procedures. At least 50% of this time was spent in direct, [id number] contact. Thank you for allowing me to participate in this patient's care. Further recommendations will depend on patient's clinical course. Please do not hesitate to contact me if you have any questions or concerns. This medical document was created using electronic medical record system with [employer] computerized dictation system. Although this document has been carefully reviewed, there may still be some phonetic and typographical errors. These areas are purely typographical due to the imperfection of the software programs, and do not reflect any compromise in the patient's medical care. Dietary Evaluation Review Comments: 1) If GI is accessible consider Nepro 1.8 @ 30 ml/hr goal rate as tolerated with current rate of propofol on board. 2) If pt remains NPO >7 days consider TPN to meet at least 75% of estimated needs 3) If pt continues to receive HD, advance pt diet when medically feasible to a Renal Standard diet modified per PATENT DRAFTER recommendations 4) If HD is discontinued and GFR is within normal range, advance pt diet to a Regular diet, modified per PATENT DRAFTER recommendations 5)If HD is discontinued and GFR lies within STG 1-4, advance pt diet to a Renal Specific K2,lowphos,HECTOR,2gmNa,80gPro diet 6) If HD is discontinued and if GFR returns to normal levels then ALEXANDRA 1 pkt BID with meals may be considered to aid with wound healing 7) Continue current plan of care Expected Outcomes/Goals: 1) Pt to receive nutrition support within 7 days of NPO status 2) Pt labs to improve 3) Pt diet to advance 4) F/U in 2-3 days Plan discussed with: Other (nurse) HERMINIO JOHNSON MD Apr 30, 2024 06:30
[2024-04-30 06:42] LABS: Platelet Estimate Adequate
[2024-04-30 06:43] LABS: Anisocytosis Moderate; Stomatocytes Few
[2024-04-30 08:01] LABS: Base Excess -4.7 mmol/L (-2.0-3.0)
--- NOTE | 2024-04-30 10:35 | DVHPNRES ---
Progress Note Date Seen: Apr 30, 2024 Resident Creating Document: JUAN VAZQUEZ RESIDENT Has the PT tested + for MRSA If YES, has PT been informed?: No Medical Necessity Reason Pt with a Central, PICC or Fol: Yes The following are medically ne: Central Line, Whipple Catheter Reason for whipple catheter: Strict I&O Subjective Review of Systems HPI: 68/female, past medical history: Unknown Patient is 68-year-old female who was brought to the hospital from [facility] for higher level of care. Patient was initially treated facility for shortness of breath and was transferred to our hospital. During initial ED evaluation patient found to be tachypneic with severe respiratory failure, atrial fibrillation. Initially patient required oxygenation via non- rebreather mask however patient intubated to protect airway. Patient started on IV antibiotic, requiring vasopressor and amiodarone drip initially. With further evaluation chest ultrasound showed bilateral pleural effusion, CT scan of chest and abdomen was performed which showed partially loculated right pleural effusion and consolidation in right middle and lower lobe. Patient also found to have right hydronephrosis with 1.9 cm calculus into right UPJ. Radiologist performed right-sided thoracentesis which removed 250 mL of fluid. L patient was placed with right-sided chest tube for loculated empyema. Patient underwent right thoracoscopy with evacuation empyema with insertion of chest tube. Patient was extubated on April 16/2024. Patient was reintubated back given possible STEMI and transferred to left heart catheterization. [employer] did angioplasty for complete total occlusion of mid LAD. Started on heparin drip, aspirin and Plavix. Patient continued to have x-ray findings with right lower lobe opacity. Continued on antibiotic. Continued require vasopressors, chest type continued to drain. No air leak. ROS: Not obtained as patient is intubated Today patient was seen and examined at bedside. Patient underwent right thoracotomy with two chest tube insertion yesterday. Both chest tube continues to drain. Continued to be on same ventilator setting as yesterday, no new night events. There was mentioned of scant vaginal bleeding however no active GI bleeding noted in the morning. No air leak from chest tube. Continued to maintain positive IV fluids status. Objective vital signs Vital Sign Date Time Temp Pulse Resp B/P (MAP) Pulse Ox O2 Delivery O2 Flow Rate FiO2 04/30/24 10:01 98.1 75 25 104/54 (71) 97 208.6 04/30/24 10:00 Mechanical Ventilator+ 30 30 Total Intake and Output 04/29/24 04/29/24 04/30/24 15:00 23:00 07:00 Intake Total 328.000 ml 1062.375 ml 532.5 ml Output Total 948 ml 510 ml Balance 328.000 ml 114.375 ml 22.5 ml medications Current Medications Medications Dose Ordered Sig/Destini Route Start Time Stop Time Status Last Admin Dose Admin Heparin Sodium/ Dextrose 250 ml @ 18 mls/hr [id number] IV 03/31/24 23:45 UNV Midazolam HCl 50 ml @ 1 mls/hr Q24H IV 04/01/24 01:30 04/30/24 09:27 6 MLS/HR Albumin Human 100 ml @ 100 mls/hr KIRAN PRN IV 04/03/24 07:00 Sodium Chloride 10 ml QSHIFT@10,22 IV 04/09/24 22:00 04/30/24 08:50 10 ML Iron Sucrose 110 ml @ 110 mls/hr DAILY@1200 IV 04/10/24 12:00 Hold 04/19/24 13:25 110 MLS/HR Amiodarone HCl 200 mg Q12HR PO 04/10/24 22:00 UNV Amiodarone HCl 200 mg Q12HR PO 04/10/24 22:00 04/30/24 08:51 200 MG Albuterol 2.5 mg Q4HR NEB 04/16/24 18:00 04/30/24 09:59 2.5 MG Ipratropium [place] 0.5 mg Q4HR NEB 04/16/24 18:00 04/30/24 09:59 0.5 MG Budesonide 0.5 mg BID NEB 04/16/24 22:00 04/30/24 06:56 0.5 MG Fentanyl Citrate 250 ml @ 2.5 mls/hr Q24H IV 04/20/24 22:30 04/30/24 06:18 20 MLS/HR Aspirin 81 mg DAILY PO 04/22/24 10:00 04/30/24 08:51 81 MG Enteral Nutritional Formula 1,000 ml 30ML/HR GT 04/21/24 14:45 04/29/24 12:53 1,000 ML Piperacillin Sod/ Tazobactam Sod 100 ml @ 25 mls/hr Q8H IV 04/22/24 00:00 04/30/24 07:52 25 MLS/HR Pantoprazole Sodium 40 mg DAILY IV 04/22/24 10:00 04/30/24 08:50 40 MG Heparin Sodium (Porcine) 5,000 units Q12HR SC 04/22/24 22:00 04/30/24 09:26 5,000 UNITS Purified Water 200 ml Q4HR GT 04/28/24 10:00 04/30/24 08:51 200 ML Norepinephrine Bitartrate 250 ml @ 1.875 mls/ hr Q24H IV 04/28/24 18:45 04/29/24 12:22 3.75 MLS/HR Examination General: Patient is intubated and sedated. HEENT: Normocephalic, atraumatic, moist mucous membranes Respiratory/pulmonary: There are no breath sounds audible in the right lung base and diminished breath sounds on the left lung as well. Presence of two chest tube with connection to drainage. No air leak. Cardiovascular: Heart rate and rhythm is oscillating significantly from sinus rhythm to AFib rate controlled to AFib with RVR. No murmurs at this time. Abdomen: Abdomen slightly distended, there is no pain to palpation in any of the abdominal quadrants, no palpable masses. Extremities: There is minimal swelling in the lower extremities bilaterally. Peripheral Pulses: 3+ Radial (R). 3+ Radial (L). 3+ Dorsalis pedis (R). 3+ Dorsalis pedis(L) Skin: There is dry skin in bilateral lower extremities with scales and excoriations. Neurological: Sedated, RASS - laboratory and microbiology Laboratory Tests 04/30/24 03:59 Test 04/30/24 03:59 Range/Units Serum Glucose 127 H 74-106 mg/dL Microbiology Date/Time Source Procedure Growth Status 04/29/24 08:17 Pleural Fluid Gram Stain - Final Resulted 04/29/24 08:17 Pleural Fluid Anaerobic Culture - Preliminary Resulted 04/29/24 08:17 Pleural Fluid Aerobic Culture Pending Resulted 04/22/24 18:03 Urine - [place] Urine Culture - Final Yeast, not Arlet albicans Complete 04/22/24 15:16 Blood Blood Culture - Final NO GROWTH AFTER 5 DAYS OF INCUBATION. Complete 04/18/24 15:02 Sputum Gram Stain - Final Complete 04/18/24 15:02 Respiratory Culture - Final Yeast, not Arlet albicans Complete 04/01/24 11:19 Nose MRSA Screen - Final Complete Problem List/Assessment/Plan Problem List/Assessment/Plan Neurology Sedation -currently on midazolam and fentanyl Respiratory Acute hypoxic respirtory failure likel due to right-sided pleural effusion/empyema and consolidation on right middle and lower lobe -on mechanical ventilation: Respiratory rate 16, tidal volume 500, FiO2 30%, peep 5 cm H2O -presence of two chest tube: Minimal drainage, no air leak. -chest x-ray on 04/22/2022: Right-sided pleural effusion, right lower lobe opacification. -IV antibiotic with Zosyn -CT of the chest and abdomen showed moderate partial loculated right pleural effusion and consolidation on right middle/lower lobes. Mild cardiomegaly and interstitial pulmonary edema. It also showed right hydronephrosis with 1.9 cm calculus into the right UPJ. There is also a 2.6 cm staghorn appearing calculus causing mid to lower pole left hydronephrosis. -Respiratory culture: Yeast, not Arlet on 04/17/2024. Repeat culture pending. -CT chest(04/22/24):1. Moderate intermediate density right perinephric fluid extending into the bilateral extrarenal pelvis and also to a lesser extent in the peritoneal cavity, which could reflect retroperitoneal hematoma. Evaluation for active bleeding limited on this examination. 2. Moderate partially loculated right pleural effusion with a right thoracostomy tube terminating in the anterior medial right upper lobe. 3. Development of a small amount of air in the right pleural space at the level of the right middle lobe concordant with pneumothorax. 4. Bilateral renal calculi with a staghorn appearing calculus on the left. 5. Dependent consolidations of the pcpkk-[id number]-uhbl-left lower lobes which could reflect atelectasis and/or pneumonia (which can be on the basis of aspiration. 6. Mild cardiomegaly, mild aortic valve calcifications and moderate coronary artery calcifications. Mild Interstitial pulmonary edema. -Underwent tracheostomy (04/23/24) -Surgical(04/29/24): Right thoracotomy, evacuation of right empyema. Irrigation and drainage of right chest cavity. Septic shock in the setting of loculated right-sided pleural effusion and pneumonia -continue management of acute respiratory failure likely due to empyema. -Off vasopressor - continue zosyn -Respiratory culture positive for yeast on 04/17/2024.: DC micafungin. S/P Tracheostomy (04/23/24) Cardiology Acute on chronic systolic/diastolic heart failure -echocardiogram is showing an LVEF of 55-60% with increased RVSP at 48 mmHg and no pericardial effusion -Continue monitor I/O -repeat x ray In AM NSTEMI type II likely due to above -continue current management. -CAD: ENGINE MECHANIC of mid LAD (considered old) with full of thrombus. s/p balloon angioplasty with minimal / partial result Atrial fibrilation with RVR: Rate controlled -continue amiodarone 200 mg p.o. b.i.d. -heparin 5000 IU BID Restart -Cardiology on board Nephrology Hypernatremia -repeat sodium level in a.m. -Free water :200ml GT Q4 Bilateral hydronephrosis with left-sided staghorn calculi and right UVJ calculi -CT scan of the chest and abdomen showed right hydronephrosis with 1.9 cm calculus into the right UPJ, there was also a 2.6 cm staghorn appearing calculus causing mid to lower pole left hydronephrosis. -nephrology on board -drainage with Whipple catheter. -continue I/O monitoring CHRISTOPH due to VMN initially likely in setting of septic shock: Resolved -most likely secondary to bilateral renal calculi -nephrology and urology on board -monitor kidney function Hypokalemia -replenish Hematogy Normocytic anemia -2 Unit of PRBCS given Nutrition Nepro 20 mL/hour via G-tube., target 30 ml/hr Lines: Right upper arm PICC line: Placed on 04/09/2024 PUD prophylaxis: Protonix DVT prophylaxis: Heparin Goals of care discussed with the daughter and brother at bedside for >31min by Dr. Jones previously Critical time spent > 61 min Plan discussed with Dr Perez Plan discussed with: Other (RN) My Orders My Orders Orders - JUAN VAZQUEZ RESIDENT Procedure Category Date Status Time Chest Xray 1 View XY 04/30/24 Resulted 04:00 Abg W/ Co-Ox RT 04/30/24 Logged 04:00 Dietary Evaluation Review Comments: 1) If GI is accessible consider Nepro 1.8 @ 30 ml/hr goal rate as tolerated with current rate of propofol on board. 2) If pt remains NPO >7 days consider TPN to meet at least 75% of estimated needs 3) If pt continues to receive HD, advance pt diet when medically feasible to a Renal Standard diet modified per POLICY LOAN CALCULATOR recommendations 4) If HD is discontinued and GFR is within normal range, advance pt diet to a Regular diet, modified per POLICY LOAN CALCULATOR recommendations 5)If HD is discontinued and GFR lies within STG 1-4, advance pt diet to a Renal Specific K2,lowphos,HECTOR,2gmNa,80gPro diet 6) If HD is discontinued and if GFR returns to normal levels then ALEXANDRA 1 pkt BID with meals may be considered to aid with wound healing 7) Continue current plan of care Expected Outcomes/Goals: 1) Pt to receive nutrition support within 7 days of NPO status 2) Pt labs to improve 3) Pt diet to advance 4) F/U in 2-3 days Date of Service: Apr 30, 2024 Billing Provider: LAURIE JONES MD Common Visit Codes: [id number] CARE 30-74 MIN JUAN VAZQUEZ RESIDENT Apr 30, 2024 10:35 LAURIE JONES MD May 01, 2024 13:09
--- NOTE | 2024-04-30 11:41 | DVHPN2 ---
Progress Note Date Seen: Apr 30, 2024 Has the PT tested + for MRSA If YES, has PT been informed?: No Medical Necessity Reason Pt with a Central, PICC or Fol: Yes The following are medically ne: Central Line, Whipple Catheter Reason for whipple catheter: Strict I&O Subjective Review of Systems: RESPIRATORY:Abnormal Other Systems: Patient seen and examined by myself today in follow-up, patient remained trached on the ventilator Objective vital signs Vital Sign Date Time Temp Pulse Resp B/P (MAP) Pulse Ox O2 Delivery O2 Flow Rate FiO2 04/30/24 11:15 98.1 68 23 94/49 (64) 97 208.6 04/30/24 10:00 Mechanical Ventilator+ 30 30 Total Intake and Output 04/29/24 04/29/24 04/30/24 15:00 23:00 07:00 Intake Total 328.000 ml 1062.375 ml 532.5 ml Output Total 948 ml 510 ml Balance 328.000 ml 114.375 ml 22.5 ml medications Current Medications Medications Dose Ordered Sig/Destini Route Start Time Stop Time Status Last Admin Dose Admin Heparin Sodium/ Dextrose 250 ml @ 18 mls/hr [id number] IV 03/31/24 23:45 UNV Midazolam HCl 50 ml @ 1 mls/hr Q24H IV 04/01/24 01:30 04/30/24 09:27 6 MLS/HR Albumin Human 100 ml @ 100 mls/hr KIRAN PRN IV 04/03/24 07:00 Sodium Chloride 10 ml QSHIFT@10,22 IV 04/09/24 22:00 04/30/24 08:50 10 ML Iron Sucrose 110 ml @ 110 mls/hr DAILY@1200 IV 04/10/24 12:00 Hold 04/19/24 13:25 110 MLS/HR Amiodarone HCl 200 mg Q12HR PO 04/10/24 22:00 UNV Amiodarone HCl 200 mg Q12HR PO 04/10/24 22:00 04/30/24 08:51 200 MG Albuterol 2.5 mg Q4HR NEB 04/16/24 18:00 04/30/24 09:59 2.5 MG Ipratropium [place] 0.5 mg Q4HR NEB 04/16/24 18:00 04/30/24 09:59 0.5 MG Budesonide 0.5 mg BID NEB 04/16/24 22:00 04/30/24 06:56 0.5 MG Fentanyl Citrate 250 ml @ 2.5 mls/hr Q24H IV 04/20/24 22:30 04/30/24 06:18 20 MLS/HR Aspirin 81 mg DAILY PO 04/22/24 10:00 04/30/24 08:51 81 MG Enteral Nutritional Formula 1,000 ml 30ML/HR GT 04/21/24 14:45 04/29/24 12:53 1,000 ML Piperacillin Sod/ Tazobactam Sod 100 ml @ 25 mls/hr Q8H IV 04/22/24 00:00 04/30/24 07:52 25 MLS/HR Pantoprazole Sodium 40 mg DAILY IV 04/22/24 10:00 04/30/24 08:50 40 MG Heparin Sodium (Porcine) 5,000 units Q12HR SC 04/22/24 22:00 04/30/24 09:26 5,000 UNITS Purified Water 200 ml Q4HR GT 04/28/24 10:00 04/30/24 08:51 200 ML Norepinephrine Bitartrate 250 ml @ 1.875 mls/ hr Q24H IV 04/28/24 18:45 04/29/24 12:22 3.75 MLS/HR Examination: LUNGS:Normal, CVS:Normal, MSK:Normal laboratory and microbiology Laboratory Tests 04/30/24 03:59 Test 04/30/24 03:59 Range/Units Serum Glucose 127 H 74-106 mg/dL Microbiology Date/Time Source Procedure Growth Status 04/29/24 08:17 Pleural Fluid Gram Stain - Final Resulted 04/29/24 08:17 Pleural Fluid Anaerobic Culture - Preliminary Resulted 04/29/24 08:17 Pleural Fluid Aerobic Culture Pending Resulted 04/22/24 18:03 Urine - [place] Urine Culture - Final Yeast, not Arlet albicans Complete 04/22/24 15:16 Blood Blood Culture - Final NO GROWTH AFTER 5 DAYS OF INCUBATION. Complete 04/18/24 15:02 Sputum Gram Stain - Final Complete 04/18/24 15:02 Respiratory Culture - Final Yeast, not Arlet albicans Complete 04/01/24 11:19 Nose MRSA Screen - Final Complete Problem List/Assessment/Plan Problem List/Assessment/Plan Acute kidney injury due to ATN/hemodynamic from shock, status post intermittent hemodialysis Acute respiratory failure, intubated on ventilator NSTEMI septic shock empyema status post thoracotomy and surgical drainage and chest tube placement metabolic acidosis resolved b/l renal stones w/ hydronephrosis morbid obesity hyperkalemia, resolved Hypernatremia due to insensible water loss afib RVR Hypokalemia Recommendations Kidney function continue to improve, resolving ATN Increased urine output Hypernatremia appropriately resolved Strict I&Os IV antibiotics KCL replacement free water down NG tube Urology consult We will continue to follow Plan discussed with: Other (Nurse) Dietary Evaluation Review Comments: 1) If GI is accessible consider Nepro 1.8 @ 30 ml/hr goal rate as tolerated with current rate of propofol on board. 2) If pt remains NPO >7 days consider TPN to meet at least 75% of estimated needs 3) If pt continues to receive HD, advance pt diet when medically feasible to a Renal Standard diet modified per DEICER KIT ASSEMBLER recommendations 4) If HD is discontinued and GFR is within normal range, advance pt diet to a Regular diet, modified per DEICER KIT ASSEMBLER recommendations 5)If HD is discontinued and GFR lies within STG 1-4, advance pt diet to a Renal Specific K2,lowphos,HECTOR,2gmNa,80gPro diet 6) If HD is discontinued and if GFR returns to normal levels then ALEXANDRA 1 pkt BID with meals may be considered to aid with wound healing 7) Continue current plan of care Expected Outcomes/Goals: 1) Pt to receive nutrition support within 7 days of NPO status 2) Pt labs to improve 3) Pt diet to advance 4) F/U in 2-3 days SWETA CHAND MD Apr 30, 2024 11:41
[2024-05-01] VITALS (98 sets, daily range): BP systolic 90–147; BP diastolic 41–85; PULSE 62–100; RESP 12–38; TEMP 97.5–98.6; O2SAT 90–99
[2024-05-01 03:59] LABS: Basophils # (auto) 0.1 10 ^3/uL (0-0.2); Basophils % (auto) 0.7 % (0.0-2.0); Eosinophils # (auto) 0.7 10 ^3/uL (0-0.8); Eosinophils % (auto) 4.5 % (0.0-7.0); Hematocrit 27.3 % (36.0-46.0); Hemoglobin 8.8 g/dL (12.2-16.2); Lymphocytes # (auto) 1.1 10 ^3/uL (0.4-5.4); Lymphocytes % (auto) 7.7 % (10.0-50.0); Mean Corpuscular Hemoglobin 30.4 pg (28.0-32.0); Mean Corpuscular Hgb Conc. 32.4 g/dL (32.0-36.0); Mean Corpuscular Volume 93.9 fL (80.0-100.0); Monocytes # (auto) 0.7 10 ^3/uL (0-1.3); Monocytes % (auto) 4.8 % (0.0-12.0); Neutrophils # (auto) 12.1 10 ^3/uL (1.6-8.6); Neutrophils % (auto) 82.3 % (37.0-80.0); Nucleated Red Blood Cells % 0.1 %; Platelet Count (auto) 165 10^3/uL (140-450); White Blood Cell 14.7 10^3/uL (4.4-10.8)
[2024-05-01 04:06] LABS: Chloride 112 mmol/L (98-107); Potassium 3.3 mmol/L (3.5-5.1); Sodium 143 mmol/L (136-145)
[2024-05-01 04:07] LABS: Anion Gap 8 (5-15); Carbon Dioxide 23 mmol/L (20-31); Red Cell Distribution Width 25.3 % (11.8-14.3)
[2024-05-01 04:08] LABS: Calcium 8.3 mg/dL (8.7-10.4)
[2024-05-01 04:12] LABS: Glucose 112 mg/dL (74-106)
[2024-05-01 04:13] LABS: Blood Urea Nitrogen 24 mg/dL (9-23)
[2024-05-01] MEDS: POTASSIUM CHL 20MEQ/100ML 100 ML IV ONE (05:43)
--- NOTE | 2024-05-01 05:43 | DVH ---
CHEST RADIOGRAPH Indication:on vent Technique: Single frontal view of the chest was obtained COMPARISON: XY CHEST XRAY 1 VIEW on DOS: 04/30/24, XY CHEST PORTABLE on DOS: 04/29/24, XY CHEST STEPHANY BLE on DOS: 04/29/24, XY CHEST XRAY 1 VIEW on DOS: 04/26/24 FINDINGS: Lines and Tubes: Tracheostomy, right PICC and right chest tube in satisfactory position. Lungs: Multifocal airspace disease. Pleura: No effusion. No pneumothorax. Cardiomediastinal contours: Unremarkable Bones: Unremarkable IMPRESSION: Lines and tubes in satisfactory position. No significant interval change.
[2024-05-01 06:48] LABS: Base Excess -4.6 mmol/L (-2.0-3.0)
--- NOTE | 2024-05-01 08:27 | DVHPN2 ---
Progress Note - Dictate Date Seen: May 01, 2024 Has the PT tested + for MRSA If YES, has PT been informed?: No Medical Necessity Reason Pt with a Central, PICC or Fol: Yes The following are medically ne: Central Line, Whipple Catheter Reason for whipple catheter: Strict I&O vital signs Vital Sign Date Time Temp Pulse Resp B/P (MAP) Pulse Ox O2 Delivery O2 Flow Rate FiO2 05/01/24 08:00 79 23 97 Mechanical Ventilator+ 30 30 05/01/24 07:00 127/76 05/01/24 06:46 98.1 208.6 Total Intake and Output 04/30/24 04/30/24 05/01/24 15:00 23:00 07:00 Intake Total 350 ml 1158.625 ml 1073.475 ml Output Total 265 ml 382 ml Balance 350 ml 893.625 ml 691.475 ml medications Current Medications Medications Dose Ordered Sig/Destini Route Start Time Stop Time Status Last Admin Dose Admin Heparin Sodium/ Dextrose 250 ml @ 18 mls/hr [id number] IV 03/31/24 23:45 UNV Midazolam HCl 50 ml @ 1 mls/hr Q24H IV 04/01/24 01:30 05/01/24 03:42 5 MLS/HR Albumin Human 100 ml @ 100 mls/hr KIRAN PRN IV 04/03/24 07:00 Sodium Chloride 10 ml QSHIFT@22 IV 04/09/24 22:00 04/30/24 22:00 10 ML Iron Sucrose 110 ml @ 110 mls/hr DAILY@1200 IV 04/10/24 12:00 Hold 04/19/24 13:25 110 MLS/HR Amiodarone HCl 200 mg Q12HR PO 04/10/24 22:00 UNV Amiodarone HCl 200 mg Q12HR PO 04/10/24 22:00 04/30/24 22:24 200 MG Albuterol 2.5 mg Q4HR NEB 04/16/24 18:00 05/01/24 06:05 2.5 MG Ipratropium [place] 0.5 mg Q4HR NEB 04/16/24 18:00 05/01/24 06:05 0.5 MG Budesonide 0.5 mg BID NEB 04/16/24 22:00 04/30/24 22:16 0.5 MG Fentanyl Citrate 250 ml @ 2.5 mls/hr Q24H IV 04/20/24 22:30 04/30/24 17:29 20 MLS/HR Aspirin 81 mg DAILY PO 04/22/24 10:00 04/30/24 08:51 81 MG Enteral Nutritional Formula 1,000 ml 30ML/HR GT 04/21/24 14:45 04/29/24 12:53 1,000 ML Piperacillin Sod/ Tazobactam Sod 100 ml @ 25 mls/hr Q8H IV 04/22/24 00:00 05/01/24 07:51 25 MLS/HR Pantoprazole Sodium 40 mg DAILY IV 04/22/24 10:00 04/30/24 08:50 40 MG Heparin Sodium (Porcine) 5,000 units Q12HR SC 04/22/24 22:00 04/30/24 22:29 5,000 UNITS Purified Water 200 ml Q4HR GT 04/28/24 10:00 05/01/24 02:00 200 ML Norepinephrine Bitartrate 250 ml @ 1.875 mls/ hr Q24H IV 04/28/24 18:45 05/01/24 00:34 5.7 MLS/HR laboratory and microbiology Laboratory Tests 05/01/24 03:15 Test 05/01/24 03:15 Range/Units Serum Glucose 112 H 74-106 mg/dL Assessment/Plan Still on Levophed Days ago: There was question about EKG showing STEMI. Patient was intubated again by primary team and taken to Algorithm Design Engineer. s/p Cardiac cath (on 04/17/2024) Was found to have CLINICAL APPEALS SPECIALIST of mid LAD (considered old) with full of thrombus. s/p balloon angioplasty with minimal / partial result s/p thoracoscopy and chest tube placement Patient is a 68-year-old female who was transferred from [facility]. She originally presented to [facility] for shortness of breath ongoing for few days. She is intubated and is being managed in ICU. Information was obtained by reviewing the chart and communicating with staff. Reportedly, she presented with respiratory failure to [facility] (oxygen saturation was 88%) and over there was found to have white blood cell count of 26.6, hemoglobin of 11.1, creatinine of 5.6, potassium of 5.6 and troponin of 1.01. She was given 365 mg of aspirin in [facility]. She did have an episode of atrial fibrillation with RVR with questionable ST changes and was transferred to our facility for further care. She was also found to have right pleural effusion in [facility] and was diagnosed with non-STEMI. s/p tracheostomy, on vent support. Obese. Mucosa is pale. Scattered rhonchi in the lungs is heard. Cardiac: Regular, no thrill/gallop. Abdomen is soft with increased bowel sounds. There is no gross mass. Extremities reveal 1+ edema bilaterally. Available past medical history includes obesity and questionable history of psoriasis. WBC: 25.3 - 23.7 - 20.2 - 20.5 - 17.6 - 18.4 - 19.2 - 19.4 - 22.2 - 16.4 - 16.1 - 19.5 - 14.7 - 12.3 - 9.8 - 10.0 - 8.3 - 9.2 - 10.2 - 11.4 - 10.3 - 12.0 - 13.8 - 16.3 - 18.0 - 18.2 - 16.6 - 15.6 - 11.7 - 9.8 - 9.1 - 11.4 - 12.3 - 15.7 - 15.3 - 14.7 Hemoglobin: 10.8 - 9.1 - 8.5 - 8.4 - 8.8 - 8.6 - 8.9 - 8.1 - 8.4 - 8.1 - 8.1 - 8.2 - 8.0 - 7.4 - 7.4 - 7.7 - 7.1 - 8.0 - 7.5 - 8.8 - 7.1 - 9.0 - 8.9 - 9.0 - 8.4 - 8.4 - 8.4 - 8.1 - 8.2 - 8.0 - 8.0 - 8.0 - 7.8 - 7.1 - 10.8 - 9.0 - 8.8 D-dimer: 3.62 Creatinine: 5.67 - 5.78 - 5.41 - 4.92 - 4.55 - 4.68 - 4.71 - 4.64 - 4.48 - 3.83 - 3.66 - 3.65 - 3.25 - 2.82 - 2.41 - 2.34 - 2.01 - 1.90 - 1.60 - 1.83 - 1.73 - 1.74 - 1.76 - 1.78 - 1.82 - 1.94 - 1.99 - 1.93 - 1.95 - 2.39- 2.09 - 1.81 - 1.54 - 1.41 - 1.32 - 1.31 - 1.17 - 1.09 Potassium: 6.0 - 6.3 - 6.1 - 6.0 - 5.3 - 5.0 - 4.9 - 4.8 - 5.1 - 5.4 - 4.9 - 5.3 - 4.8 - 4.5 - 4.7 - 4.3 - 4.2 - 3.9 - 4.6 - 3.8 - 3.5 - 3.3 - 3.6 - 3.6 - 4.0 - 3.5 - 4.0 - 3.7 - 3.6 - 3.5 - 3.4 - 4.0 - 3.9 - 3.0 - 3.4 - 3.3 - 3.6 - 3.3 - 3.0 - 4.0 - 3.5 - 3.3 Lactic acid: 3.3 - 3.4 - 2.3 - 2.5 - 2.5 - 2.7 - 2.4 - 2.5 - 3.1 - 2.3 - 1.7 - 1.7 TSH: 1.71 BNP: 274.69 - 1944.81 - 373.79 Troponin (high sensitive): 2159 - 4525 - 9274 - 8861 - 476 - 5036 Blood culture: positive Pleural fluid culture: E-coli Digoxin level: 2.09 Stool OB: positive Chest x-ray revealed: IMPRESSION: 1. Moderate right pleural effusion. 2. Cardiomegaly with mild pulmonary vascular congestion bilaterally. Repeat chest x-ray revealed: IMPRESSION: 1. Endotracheal tube and gastric tubes in place as described. 2. Right IJ central venous catheter projects over the lower SVC. 3. Mild cardiomegaly and prominence of the pulmonary vasculature. 4. Moderate to large right pleural effusion. Repeat chest x-ray revealed: IMPRESSION: Similar lung aeration with large right pleural effusion. No pneumothorax seen. Stable lines and tubes. Repeat chest x-ray revealed: IMPRESSION: Similar lung aeration with large right pleural effusion. No pneumothorax seen. Stable lines and tubes. Repeat chest xry revealed: Lines and tubes: ET in the mid thoracic trachea. NG crosses midline. Right CVC is stable. Left HD catheter projects over the mediastinum. Cardiomediastinal silhouette: Enlarged Pulmonary vasculature: prominent Lung expansion: low Lung airspace: patchy bilateral airspace opacity. Lung interstitium: normal Pleura: Similar large right effusion. Pneumothorax: no Bones: Unremarkable Other: no IMPRESSION: Lines and tubes, as above. Similar lung aeration bilaterally with a right pleural effusion and patchy airspace opacities. Repeat chest xry revealed: IMPRESSION: 1. Stable position of the support lines and tubes. 2. Interstitial and alveolar opacities. Repeat chest xry revealed: IMPRESSION: Unchanged multifocal airspace disease. Small to moderate right pleural effusion ; possibly loculated. Repeat chest xry revealed: IMPRESSION: Lines and tubes in satisfactory position. No significant interval change. Repeat chest xry revealed: IMPRESSION: 1. Support lines and tubes in appropriate position. 2. Pulmonary vascular congestion. 3. Bilateral pleural effusions, right greater than left. Repeat chest xry revealed: IMPRESSION: 1. Support lines and tubes in appropriate position. 2. Pulmonary vascular congestion. 3. Bilateral pleural effusions, right greater than left. Repeat chest xry revealed: IMPRESSION: Interval placement of right chest tube which projects deep into the right hilar region. Repeat chest xry revealed: IMPRESSION: No interval change Repeat chest xry revealed: Findings/IMPRESSION: Right IJ CVC terminating in the SVC. Endotracheal tube projected 5 cm superior to the mili. Enteric tube projected below the GE junction. Right-sided PICC projects terminating near the cavoatrial junction. Small bilateral pleural effusions and/or atelectasis with superimposed infection not excluded. Repeat chest xry revealed: MPRESSION: 1. Bilateral pleural effusions and airspace disease right greater than left. Repeat chest xry revealed: IMPRESSION: 1. Endotracheal tube terminates 6.0 cm above the mili, previously 3.1 cm above the mili. Otherwise, No significant interval change. Repeat chest xry revealed: IMPRESSION: 1. Endotracheal tube terminates 6.0 cm above the mili, previously 3.1 cm above the mili. Otherwise, No significant interval change. Repeat chest xry revealed: IMPRESSION: Lines and tubes in satisfactory position. No significant interval change. Repeat chest xry revealed: IMPRESSION: Lines and tubes in satisfactory position. No significant interval change. Repeat chest xry revealed: IMPRESSION: Lines and tubes in satisfactory position. No significant interval change. Repeat chest xry revealed: IMPRESSION: Lines and tubes in satisfactory position. No significant interval change. Repeat chest xry revealed: IMPRESSION: Endotracheal tube projects in appropriate position. Otherwise no significant change Repeat chest xry revealed: FINDINGS: Lines and Tubes: Right PICC and enteric catheter and right chest tube in satisfactory position. Endotracheal tube projects 3.8 cm above the level of the mili. Lungs: Bibasilar opacities. Pleura: Possible small right pleural effusion. No pneumothorax. Cardiomediastinal contours: Unremarkable Bones: Unremarkable IMPRESSION: No significant change compared to prior exam. Repeat chest xry revealed: IMPRESSION: Lines and tubes in satisfactory position. No significant interval change. Repeat chest xry revealed: IMPRESSION: 1. Bibasilar opacities representing pleural effusions and airspace disease similar to prior study. 2. Satisfactory position of the support lines and tubes. Repeat chest xry revealed: IMPRESSION: 1. Stable appearance of the chest. Unchanged position of the support lines and tubes. Repeat chest xry revealed: Lines and Tubes: - Tracheostomy in satisfactory position - Enteric catheter in satisfactory position - Right PICC (Peripherally Inserted Central Catheter) in satisfactory position - Right chest tube in satisfactory position Lungs: - Diffuse pulmonary vascular congestion Pleura: - Possible small bilateral pleural effusions Cardiomediastinal contours: - Unremarkable Bones: Unremarkable IMPRESSION: Tracheostomy in satisfactory position. No other significant interval change. Repeat chest xry revealed: IMPRESSION: 1. Stable pulmonary congestion, patchy right mid to lower lung zone opacities. 2. Stable position of the support lines and tubes. Repeat chest xry revealed: IMPRESSION: Lines and tubes in satisfactory position. No significant interval change. Repeat chest xry revealed: IMPRESSION: Lines and tubes in satisfactory position. No significant interval change. Repeat chest xry revealed: IMPRESSION: Examination is markedly limited by patient positioning. Tracheostomy tube tip appears at the thoracic inlet likely within the trachea. There is a right chest tube right PICC line with tip at the superior vena cava. Bilateral effusions and moderate pulmonary vascular congestion as well as cardiomegaly. No pneumothorax. Repeat chest xry revealed: IMPRESSION: 1. Stable position of the support lines and tubes. 2. Bibasilar opacities similar to prior study. Repeat chest xry revealed: IMPRESSION: 1. Support lines and tubes similar to the prior exam. 2. No significant change in bilateral airspace disease. Repeat chest xry revealed: IMPRESSION: 1. No significant change in position of the support lines and tubes. 2. Slightly improved aeration in the right lung. Repeat chest xry revealed: IMPRESSION: Increased congestion. No other significant interval change. Repeat chest xry revealed: IMPRESSION: Lines and tubes in satisfactory position. No significant interval change. Renal ultrasound revealed: IMPRESSION: 1. Right kidney measures 13.4 cm. Decreased cortical thickness on the right. 2. Left kidney measures 10.2 cm. 3. No hydronephrosis on the right grade 1 hydronephrosis on the left. 4. Bilateral renal calculi. CT scan of the chest/abdomen and pelvis revealed: IMPRESSION: 1. Moderate partially loculated right pleural effusion and consolidations in the right middle and lower lobes which could be pneumonia and/or atelectasis. 2. Mild cardiomegaly, mild interstitial pulmonary edema, and body wall edema. 3. There is a 1.9 cm calculus in the right UPJ with mild right hydronephrosis 4. There is a 2.6 cm somewhat staghorn appearing calculus in the left renal pelvis and UPJ causing mild predominantly mid to lower pole left hydronephrosis. Mild soft tissue stranding about the left renal pelvis which could be due to obstruction or superimposed infection. Correlate with urinalysis. 5. Partial duplication of the left renal collecting system without hydronephrosis in the upper pole. 6. Moderate right perinephric, right retroperitoneal, and bilateral extraperitoneal pelvis low-density fluid and very mild left retroperitoneal low-density fluid. This could be fluid related to bilateral renal obstructions and forniceal ruptures versus evolved retroperitoneal hematoma. This is suboptimally evaluated without intravenous contrast. 7. Fluid-filled small and large bowel loops which may be physiologic or related to enterocolitis and could be manifesting as loose stools and/or diarrhea. 8. Prominent endometrium measuring at least 2.8 cm, suboptimally evaluated by CT. Recommend characterization with nonemergent pelvic ultrasound if clinically indicated. 9. Mild hepatosplenomegaly. 10. Moderate three-vessel calcified coronary artery disease and mild aortic valve calcification. 11. Right IJ central venous catheter in place terminating in the low SVC. 12. Small soft tissue stranding in the right supraclavicular neck which could be blood products. 13. Endotracheal tube terminates above the mili. Repeat CT of chest / abdomen and pelvis revealed: IMPRESSION: 1. Moderate intermediate density right perinephric fluid extending into the bilateral extrarenal pelvis and also to a lesser extent in the peritoneal cavity, which could reflect retroperitoneal hematoma. Evaluation for active bleeding limited on this examination. 2. Moderate partially loculated right pleural effusion with a right thoracostomy tube terminating in the anterior medial right upper lobe. 3. Development of a small amount of air in the right pleural space at the level of the right middle lobe concordant with pneumothorax. 4. Bilateral renal calculi with a staghorn appearing calculus on the left. 5. Dependent consolidations of the [id number]-left lower lobes which could reflect atelectasis and/or pneumonia (which can be on the basis of aspiration. 6. Mild cardiomegaly, mild aortic valve calcifications and moderate coronary artery calcifications. Mild Interstitial pulmonary edema. CT of the head revealed: IMPRESSION: 1. No acute intracranial abnormality. 2. Generalized cerebral volume loss and mild chronic microvascular ischemic change. 3. Partially imaged endotracheal tube. Chest ultrasound revealed: Findings/Impression: There is a trace bilateral pleural effusion. Thoracentesis: FINDINGS: Moderate size, complex and septated right pleural effusion. Aspirated fluid is thick and green in consistency. IMPRESSION: Right thoracentesis with 250 mL removed for laboratory analysis. EKG in [facility] revealed sinus tachycardia, poor R-wave progression old inferior wall NH. later EKG revealed atrial fibrillation with RVR. Repeat EKGs questioned STEMI. but resolved later. Telemetry reveals sinus rhythm, occasions of A-fib with RVR, SVT Echocardiogram revealed: Technically limited study secondary to poor acoustic windows. Left ventricle: Left ventricle was normal-sized. Mild concentric left ventricular hypertrophy was seen. LVEF was 55-60%. No gross wall motion abnormality was observed, but its presence can not be ruled out on the basis of this study. Right ventricle is mildly dilated with normal systolic function. Left atrium was mildly dilated. Right atrium was normal-sized. Aortic valve was trileaflet. There was no aortic insufficiency. There was aortic sclerosis with no stenosis. There was trivial mitral/tricuspid regurgitation. Pulmonary valve was not well visualized. Right ventricular systolic pressure was assessed around 48 mm Hg. There was no pericardial effusion. Left heart cath revealed: One-vessel coronary artery disease, CLINICAL APPEALS SPECIALIST of mid LAD, Attempted to open up the LAD CLINICAL APPEALS SPECIALIST, partially/minimally successful (status post balloon angioplasty). LVEF of 25% (dilated LV). Cardiac suggestion for management: Dual antiplatelet therapy (loaded with aspirin and Plavix). Guideline directed medical therapy for systolic heart failure Repeat echo revealed: Technically limited study secondary to poor acoustic windows. Left ventricle: Concentric left ventricular hypertrophy was seen anteroapical hypokinesia was seen. The LVEF was around 40%. Right ventricular was normal sized with normal systolic function. Atria were not well-visualized. Aortic valve: Aortic valve was not well visualized. There was no aortic stenosis/insufficiency. Mild mitral/tricuspid regurgitation was observed. Pulmonary valve was not well visualized. Right ventricular systolic pressure was assessed around 35 mm Hg. There was no pericardial effusion. Patient is a 68-year-old morbidly obese patient who presented with respiratory failure to the hospital. Presentation is in favor of sepsis/septic shock. Multiorgan failure is observed. She is intubated and on vent support. She is on multiple pressor support. Life findings are in favor of acute renal failure. She also is known to have nephrolithiasis with history of staghorn calculi. Cardiac-ceballos, the patient did have episode of atrial fibrillation with RVR. She is found to have increased troponin. Presentation questions non-STEMI and possibly type 2 ischemia. Recognizing the presentation, ischemic workup should be postponed after clinical stability (only if patient recovers higher brain function). Is being followed by Nephrology. Had episodes of tachyarrhythmia. Loaded with Digoxin. Positive cultures. Repeated a-fib with RVR. Was evaluated by Interventional Cardiology periodontal assistant for STEMI (not considered STEMI). As there was repeated EKG changes in favor of STEMI, patient was taken to finished carpet inspector: Was found to have CLINICAL APPEALS SPECIALIST of mid LAD (considered old) with full of thrombus. s/p balloon angioplasty with minimal / partial result. s/p repeat right thoracotomy and right lung decortication and chest tube placement. Septic shock Multiorgan failure Acute respiratory failure on vent support Acute renal failure Nephrolithiasis Staghorn calculi Hydronephrosis Abnormal troponin, non-STEMI Atrial fibrillation with RVR Paroxysmal AFib Acute heart failure, diastolic Hepatosplenomegaly Pleural effusion Status post thoracentesis Morbid obesity s/p Cardioversion for A-fib with RVR s/p thoracoscopy and chest tube placement CAD: CLINICAL APPEALS SPECIALIST of mid LAD (considered old) with full of thrombus. s/p balloon angioplasty with minimal / partial result s/p tracheostomy s/p repeat thoracotomy and right lung decortication Cardiac suggestion for management: Manage in ICU Follow-up electrolytes and kidney function tests and correct abnormalities Pressure support to keep mean arterial pressure above 65 Amiodarone oral/O mg BID Daily aspirin (81 mg daily) s/p thoracoscopy and chest tube placement s/p repeat thoracotomy, right lung decortication and chest tube placement. s/p tracheostomy IV metoprolol PRN for a-fib with RVR episodes. Sepsis workup and management as per primary team Evaluation and management of respiratory failure as per primary team/Pulmonary Evaluation and management of nephrolithiasis/hydronephrosis as per primary/Urology Evaluation and management of acute renal failure as per Nephrology Further evaluation and management as per above and clinical course. A total of 75 minutes was spent reviewing the patient record, examining the patient, making a diagnostic and therapeutic plan, discussing this plan with medical personnel, following up on diagnostic studies and following the patient for clinical stability excluding any and all procedures. At least 50% of this time was spent in direct, [id number] contact. Thank you for allowing me to participate in this patient's care. Further recommendations will depend on patient's clinical course. Please do not hesitate to contact me if you have any questions or concerns. This medical document was created using electronic medical record system with [employer] computerized dictation system. Although this document has been carefully reviewed, there may still be some phonetic and typographical errors. These areas are purely typographical due to the imperfection of the software programs, and do not reflect any compromise in the patient's medical care. Dietary Evaluation Review Comments: 1) If GI is accessible consider Nepro 1.8 @ 30 ml/hr goal rate as tolerated with current rate of propofol on board. 2) If pt remains NPO >7 days consider TPN to meet at least 75% of estimated needs 3) If pt continues to receive HD, advance pt diet when medically feasible to a Renal Standard diet modified per VETERINARY MEDICINE DOCTOR recommendations 4) If HD is discontinued and GFR is within normal range, advance pt diet to a Regular diet, modified per VETERINARY MEDICINE DOCTOR recommendations 5)If HD is discontinued and GFR lies within STG 1-4, advance pt diet to a Renal Specific K2,lowphos,HECTOR,2gmNa,80gPro diet 6) If HD is discontinued and if GFR returns to normal levels then ALEXANDRA 1 pkt BID with meals may be considered to aid with wound healing 7) Continue current plan of care Expected Outcomes/Goals: 1) Pt to receive nutrition support within 7 days of NPO status 2) Pt labs to improve 3) Pt diet to advance 4) F/U in 2-3 days Plan discussed with: Other (nurse) HERMINIO JOHNSON MD May 01, 2024 08:27
--- NOTE | 2024-05-01 10:17 | DVHPN2 ---
Progress Note Date Seen: May 01, 2024 Has the PT tested + for MRSA If YES, has PT been informed?: No Medical Necessity Reason Pt with a Central, PICC or Fol: Yes The following are medically ne: Central Line, Whipple Catheter Reason for whipple catheter: Strict I&O Subjective Other Systems: Patient seen and examined by myself today on rounds Patient remained trached on ventilator Objective vital signs Vital Sign Date Time Temp Pulse Resp B/P (MAP) Pulse Ox O2 Delivery O2 Flow Rate FiO2 05/01/24 10:01 98.4 85 31 118/60 (79) 94 209.1 05/01/24 09:45 30 05/01/24 08:00 Mechanical Ventilator+ Total Intake and Output 04/30/24 04/30/24 05/01/24 15:00 23:00 07:00 Intake Total 350 ml 1158.625 ml 1073.475 ml Output Total 265 ml 382 ml Balance 350 ml 893.625 ml 691.475 ml medications Current Medications Medications Dose Ordered Sig/Destini Route Start Time Stop Time Status Last Admin Dose Admin Heparin Sodium/ Dextrose 250 ml @ 18 mls/hr [id number] IV 03/31/24 23:45 UNV Midazolam HCl 50 ml @ 1 mls/hr Q24H IV 04/01/24 01:30 05/01/24 03:42 5 MLS/HR Albumin Human 100 ml @ 100 mls/hr KIRAN PRN IV 04/03/24 07:00 Sodium Chloride 10 ml QSHIFT@10,22 IV 04/09/24 22:00 05/01/24 09:14 10 ML Iron Sucrose 110 ml @ 110 mls/hr DAILY@1200 IV 04/10/24 12:00 Hold 04/19/24 13:25 110 MLS/HR Amiodarone HCl 200 mg Q12HR PO 04/10/24 22:00 UNV Amiodarone HCl 200 mg Q12HR PO 04/10/24 22:00 05/01/24 09:15 200 MG Albuterol 2.5 mg Q4HR NEB 04/16/24 18:00 05/01/24 09:45 2.5 MG Ipratropium [place] 0.5 mg Q4HR NEB 04/16/24 18:00 05/01/24 09:45 0.5 MG Budesonide 0.5 mg BID NEB 04/16/24 22:00 05/01/24 09:45 0.5 MG Fentanyl Citrate 250 ml @ 2.5 mls/hr Q24H IV 04/20/24 22:30 04/30/24 17:29 20 MLS/HR Aspirin 81 mg DAILY PO 04/22/24 10:00 05/01/24 09:14 81 MG Enteral Nutritional Formula 1,000 ml 30ML/HR GT 04/21/24 14:45 04/29/24 12:53 1,000 ML Piperacillin Sod/ Tazobactam Sod 100 ml @ 25 mls/hr Q8H IV 04/22/24 00:00 05/01/24 07:51 25 MLS/HR Pantoprazole Sodium 40 mg DAILY IV 04/22/24 10:00 05/01/24 09:14 40 MG Purified Water 200 ml Q4HR GT 04/28/24 10:00 05/01/24 09:14 200 ML Norepinephrine Bitartrate 250 ml @ 1.875 mls/ hr Q24H IV 04/28/24 18:45 05/01/24 00:34 5.7 MLS/HR Examination: LUNGS:Normal, CVS:Normal, MSK:Normal laboratory and microbiology Laboratory Tests 05/01/24 03:15 Test 05/01/24 03:15 Range/Units Serum Glucose 112 H 74-106 mg/dL Microbiology Date/Time Source Procedure Growth Status 04/29/24 08:17 Pleural Fluid Gram Stain - Final Resulted 04/29/24 08:17 Pleural Fluid Anaerobic Culture - Preliminary Resulted 04/29/24 08:17 Pleural Fluid Aerobic Culture - Preliminary Resulted 04/22/24 18:03 Urine - [place] Urine Culture - Final Yeast, not Arlet albicans Complete 04/22/24 15:16 Blood Blood Culture - Final NO GROWTH AFTER 5 DAYS OF INCUBATION. Complete 04/18/24 15:02 Sputum Gram Stain - Final Complete 04/18/24 15:02 Respiratory Culture - Final Yeast, not Arlet albicans Complete 04/01/24 11:19 Nose MRSA Screen - Final Complete Problem List/Assessment/Plan Problem List/Assessment/Plan Acute kidney injury due to ATN/hemodynamic from shock, status post intermittent hemodialysis Acute respiratory failure, intubated on ventilator NSTEMI septic shock empyema status post thoracotomy and surgical drainage and chest tube placement metabolic acidosis resolved b/l renal stones w/ hydronephrosis morbid obesity hyperkalemia, resolved Hypernatremia due to insensible water loss afib RVR Hypokalemia Recommendations Kidney function continue to improve, resolving ATN Increased urine output Hypernatremia appropriately resolved Strict I&Os IV antibiotics KCL replacement free water down NG tube Urology consult I will sign off this case please reconsult as needed Thank you for the consult Plan discussed with: Other (Nurse) Dietary Evaluation Review Comments: 1) If GI is accessible consider Nepro 1.8 @ 30 ml/hr goal rate as tolerated with current rate of propofol on board. 2) If pt remains NPO >7 days consider TPN to meet at least 75% of estimated needs 3) If pt continues to receive HD, advance pt diet when medically feasible to a Renal Standard diet modified per ENVIRONMENTAL HEALTH NURSE recommendations 4) If HD is discontinued and GFR is within normal range, advance pt diet to a Regular diet, modified per ENVIRONMENTAL HEALTH NURSE recommendations 5)If HD is discontinued and GFR lies within STG 1-4, advance pt diet to a Renal Specific K2,lowphos,HECTOR,2gmNa,80gPro diet 6) If HD is discontinued and if GFR returns to normal levels then ALEXANDRA 1 pkt BID with meals may be considered to aid with wound healing 7) Continue current plan of care Expected Outcomes/Goals: 1) Pt to receive nutrition support within 7 days of NPO status 2) Pt labs to improve 3) Pt diet to advance 4) F/U in 2-3 days SWETA CHAND MD May 01, 2024 10:17
[2024-05-01] MEDS: FREE WATER GT SCH (14:58)
--- NOTE | 2024-05-01 18:02 | DVHPNRES ---
Progress Note Date Seen: May 01, 2024 Resident Creating Document: JUAN VAZQUEZ RESIDENT Has the PT tested + for MRSA If YES, has PT been informed?: No Medical Necessity Reason Pt with a Central, PICC or Fol: Yes The following are medically ne: Central Line, Whipple Catheter Reason for whipple catheter: Strict I&O Subjective Review of Systems HPI: 68/female, past medical history: Unknown Patient is 68-year-old female who was brought to the hospital from [facility] for higher level of care. Patient was initially treated facility for shortness of breath and was transferred to our hospital. During initial ED evaluation patient found to be tachypneic with severe respiratory failure, atrial fibrillation. Initially patient required oxygenation via non- rebreather mask however patient intubated to protect airway. Patient started on IV antibiotic, requiring vasopressor and amiodarone drip initially. With further evaluation chest ultrasound showed bilateral pleural effusion, CT scan of chest and abdomen was performed which showed partially loculated right pleural effusion and consolidation in right middle and lower lobe. Patient also found to have right hydronephrosis with 1.9 cm calculus into right UPJ. Radiologist performed right-sided thoracentesis which removed 250 mL of fluid. L patient was placed with right-sided chest tube for loculated empyema. Patient underwent right thoracoscopy with evacuation empyema with insertion of chest tube. Patient was extubated on April 16/2024. Patient was reintubated back given possible STEMI and transferred to left heart catheterization. [employer] did angioplasty for complete total occlusion of mid LAD. Started on heparin drip, aspirin and Plavix. Patient continued to have x-ray findings with right lower lobe opacity. Continued on antibiotic. Continued require vasopressors, chest type continued to drain. No air leak. ROS: Not obtained as patient is intubated Today patient was seen and examined at bedside. patient underwent trach colar trail with t piece. Put her back on ac/vc Ventilator. No new complaints. Patent and draining to adjust chest tube. Continuous similar ventilator setting. Not on any pressor. Underwent trach collar trial with T-piece. Plan to do tomorrow again. No other night events. Objective vital signs Vital Sign Date Time Temp Pulse Resp B/P (MAP) Pulse Ox O2 Delivery O2 Flow Rate FiO2 05/01/24 17:00 98.1 90 28 113/63 (80) 97 208.6 05/01/24 16:50 30 05/01/24 16:00 Mechanical Ventilator+ 05/01/24 14:43 12.0 Total Intake and Output 04/30/24 04/30/24 05/01/24 15:00 23:00 07:00 Intake Total 350 ml 1158.625 ml 1073.475 ml Output Total 265 ml 382 ml Balance 350 ml 893.625 ml 691.475 ml medications Current Medications Medications Dose Ordered Sig/Destini Route Start Time Stop Time Status Last Admin Dose Admin Heparin Sodium/ Dextrose 250 ml @ 18 mls/hr [id number] IV 03/31/24 23:45 UNV Midazolam HCl 50 ml @ 1 mls/hr Q24H IV 04/01/24 01:30 05/01/24 03:42 5 MLS/HR Albumin Human 100 ml @ 100 mls/hr KIRAN PRN IV 04/03/24 07:00 Sodium Chloride 10 ml QSHIFT@10,22 IV 04/09/24 22:00 05/01/24 09:14 10 ML Iron Sucrose 110 ml @ 110 mls/hr DAILY@1200 IV 04/10/24 12:00 Hold 04/19/24 13:25 110 MLS/HR Amiodarone HCl 200 mg Q12HR PO 04/10/24 22:00 UNV Amiodarone HCl 200 mg Q12HR PO 04/10/24 22:00 05/01/24 09:15 200 MG Albuterol 2.5 mg Q4HR NEB 04/16/24 18:00 05/01/24 14:43 2.5 MG Ipratropium [place] 0.5 mg Q4HR NEB 04/16/24 18:00 05/01/24 14:43 0.5 MG Budesonide 0.5 mg BID NEB 04/16/24 22:00 05/01/24 09:45 0.5 MG Fentanyl Citrate 250 ml @ 2.5 mls/hr Q24H IV 04/20/24 22:30 04/30/24 17:29 20 MLS/HR Aspirin 81 mg DAILY PO 04/22/24 10:00 05/01/24 09:14 81 MG Enteral Nutritional Formula 1,000 ml 30ML/HR GT 04/21/24 14:45 04/29/24 12:53 1,000 ML Piperacillin Sod/ Tazobactam Sod 100 ml @ 25 mls/hr Q8H IV 04/22/24 00:00 05/01/24 14:59 25 MLS/HR Pantoprazole Sodium 40 mg DAILY IV 04/22/24 10:00 05/01/24 09:14 40 MG Norepinephrine Bitartrate 250 ml @ 1.875 mls/ hr Q24H IV 04/28/24 18:45 05/01/24 00:34 5.7 MLS/HR Purified Water 200 ml TID GT 05/01/24 14:00 05/01/24 14:58 200 ML Examination General: Patient is intubated and sedated. HEENT: Normocephalic, atraumatic, moist mucous membranes Respiratory/pulmonary: There are no breath sounds audible in the right lung base and diminished breath sounds on the left lung as well. Presence of two chest tube with connection to drainage. No air leak. Cardiovascular: Heart rate and rhythm is oscillating significantly from sinus rhythm to AFib rate controlled to AFib with RVR. No murmurs at this time. Abdomen: Abdomen slightly distended, there is no pain to palpation in any of the abdominal quadrants, no palpable masses. Extremities: There is minimal swelling in the lower extremities bilaterally. Peripheral Pulses: 3+ Radial (R). 3+ Radial (L). 3+ Dorsalis pedis (R). 3+ Dorsalis pedis(L) Skin: There is dry skin in bilateral lower extremities with scales and excoriations. Neurological: Sedated, RASS - laboratory and microbiology Laboratory Tests 05/01/24 03:15 Test 05/01/24 03:15 Range/Units Serum Glucose 112 H 74-106 mg/dL Microbiology Date/Time Source Procedure Growth Status 04/29/24 08:17 Pleural Fluid Gram Stain - Final Resulted 04/29/24 08:17 Pleural Fluid Anaerobic Culture - Preliminary Resulted 04/29/24 08:17 Pleural Fluid Aerobic Culture - Preliminary Resulted 04/22/24 18:03 Urine - Whipple [place] Urine Culture - Final Yeast, not Arlet albicans Complete 04/22/24 15:16 Blood Blood Culture - Final NO GROWTH AFTER 5 DAYS OF INCUBATION. Complete 04/18/24 15:02 Sputum Gram Stain - Final Complete 04/18/24 15:02 Respiratory Culture - Final Yeast, not Arlet albicans Complete 04/01/24 11:19 Nose MRSA Screen - Final Complete Problem List/Assessment/Plan Problem List/Assessment/Plan Neurology Sedation -currently on midazolam and fentanyl Respiratory Acute hypoxic respirtory failure likel due to right-sided pleural effusion/empyema and consolidation on right middle and lower lobe -on mechanical ventilation: Respiratory rate 16, tidal volume 500, FiO2 30%, peep 5 cm H2O -presence of two chest tube: Minimal drainage, no air leak. -chest x-ray on 04/22/2022: Right-sided pleural effusion, right lower lobe opacification. -IV antibiotic with Zosyn -CT of the chest and abdomen showed moderate partial loculated right pleural effusion and consolidation on right middle/lower lobes. Mild cardiomegaly and interstitial pulmonary edema. It also showed right hydronephrosis with 1.9 cm calculus into the right UPJ. There is also a 2.6 cm staghorn appearing calculus causing mid to lower pole left hydronephrosis. -Respiratory culture: Yeast, not Arlet on 04/17/2024. Repeat culture pending. -CT chest(04/22/24):1. Moderate intermediate density right perinephric fluid extending into the bilateral extrarenal pelvis and also to a lesser extent in the peritoneal cavity, which could reflect retroperitoneal hematoma. Evaluation for active bleeding limited on this examination. 2. Moderate partially loculated right pleural effusion with a right thoracostomy tube terminating in the anterior medial right upper lobe. 3. Development of a small amount of air in the right pleural space at the level of the right middle lobe concordant with pneumothorax. 4. Bilateral renal calculi with a staghorn appearing calculus on the left. 5. Dependent consolidations of the [id number]-left lower lobes which could reflect atelectasis and/or pneumonia (which can be on the basis of aspiration. 6. Mild cardiomegaly, mild aortic valve calcifications and moderate coronary artery calcifications. Mild Interstitial pulmonary edema. -Underwent tracheostomy (04/23/24) -Surgical(04/29/24): Right thoracotomy, evacuation of right empyema. Irrigation and drainage of right chest cavity. -underwent trach collar trial. Continued tomorrow as well. Septic shock in the setting of loculated right-sided pleural effusion and pneumonia -continue management of acute respiratory failure likely due to empyema. -Off vasopressor - continue zosyn -Respiratory culture positive for yeast on 04/17/2024.: DC micafungin. S/P Tracheostomy (04/23/24) Cardiology Acute on chronic systolic/diastolic heart failure -echocardiogram is showing an LVEF of 55-60% with increased RVSP at 48 mmHg and no pericardial effusion -Continue monitor I/O -repeat x ray In AM NSTEMI type II likely due to above -continue current management. -CAD: INTERNAL CONTROLS SPECIALIST of mid LAD (considered old) with full of thrombus. s/p balloon angioplasty with minimal / partial result Atrial fibrilation with RVR: Rate controlled -continue amiodarone 200 mg p.o. b.i.d. -Cardiology on board -Not on anticoagulation Nephrology Hypernatremia :Improved -repeat sodium level in a.m. -Free water :200ml GT TID Bilateral hydronephrosis with left-sided staghorn calculi and right UVJ calculi -CT scan of the chest and abdomen showed right hydronephrosis with 1.9 cm calculus into the right UPJ, there was also a 2.6 cm staghorn appearing calculus causing mid to lower pole left hydronephrosis. -nephrology on board -drainage with Whipple catheter. -continue I/O monitoring CHRISTOPH due to VMN initially likely in setting of septic shock: Resolved -most likely secondary to bilateral renal calculi -nephrology and urology on board -monitor kidney function Hypokalemia -replenish Hematogy Normocytic anemia:Stable -2 Unit of PRBCS given Nutrition Nepro 20 mL/hour via G-tube., target 30 ml/hr Lines: Right upper arm PICC line: Placed on 04/09/2024 PUD prophylaxis: Protonix DVT prophylaxis: Heparin Goals of care discussed with the daughter and brother at bedside for >31min by Dr. Perez previously Critical time spent > 62 min Plan discussed with Dr Perez Plan discussed with: Other My Orders My Orders Orders - JUAN VAZQUEZ RESIDENT Procedure Category Date Status Time Chest Xray 1 View XY 05/01/24 Resulted 04:00 Abg W/ Co-Ox RT 05/01/24 Logged 05:23 Dietary Evaluation Review Comments: 1) If GI is accessible consider Nepro 1.8 @ 30 ml/hr goal rate as tolerated with current rate of propofol on board. 2) If pt remains NPO >7 days consider TPN to meet at least 75% of estimated needs 3) If pt continues to receive HD, advance pt diet when medically feasible to a Renal Standard diet modified per MARINE PIPEFITTER HELPER recommendations 4) If HD is discontinued and GFR is within normal range, advance pt diet to a Regular diet, modified per MARINE PIPEFITTER HELPER recommendations 5)If HD is discontinued and GFR lies within STG 1-4, advance pt diet to a Renal Specific K2,lowphos,HECTOR,2gmNa,80gPro diet 6) If HD is discontinued and if GFR returns to normal levels then ALEXANDRA 1 pkt BID with meals may be considered to aid with wound healing 7) Continue current plan of care Expected Outcomes/Goals: 1) Pt to receive nutrition support within 7 days of NPO status 2) Pt labs to improve 3) Pt diet to advance 4) F/U in 2-3 days Date of Service: Apr 30, 2024 Billing Provider: LAURIE JONES MD Common Visit Codes: [id number] CARE 30-74 MIN JUAN VAZQUEZ RESIDENT May 01, 2024 18:02 LAURIE JONES MD May 03, 2024 11:44
[2024-05-02] VITALS (35 sets, daily range): BP systolic 95–142; BP diastolic 46–80; PULSE 77–97; RESP 15–36; TEMP 97.6–98.1; O2SAT 94–100
[2024-05-02 03:52] LABS: Basophils # (auto) 0 10 ^3/uL (0-0.2); Basophils % (auto) 0.3 % (0.0-2.0); Eosinophils # (auto) 0.3 10 ^3/uL (0-0.8); Eosinophils % (auto) 3.1 % (0.0-7.0); Hemoglobin 8.5 g/dL (12.2-16.2); Lymphocytes # (auto) 0.9 10 ^3/uL (0.4-5.4); Mean Corpuscular Hemoglobin 29.5 pg (28.0-32.0); Mean Corpuscular Hgb Conc. 31.5 g/dL (32.0-36.0); Mean Corpuscular Volume 93.5 fL (80.0-100.0); Monocytes # (auto) 0.4 10 ^3/uL (0-1.3); Monocytes % (auto) 3.2 % (0.0-12.0); Neutrophils # (auto) 9.5 10 ^3/uL (1.6-8.6); Neutrophils % (auto) 85.4 % (37.0-80.0); Platelet Count (auto) 149 10^3/uL (140-450); Red Blood Cells 2.88 10^6/uL (4.0-5.20); White Blood Cell 11.1 10^3/uL (4.4-10.8)
[2024-05-02 04:01] LABS: Chloride 112 mmol/L (98-107); Potassium 3.1 mmol/L (3.5-5.1); Sodium 143 mmol/L (136-145)
[2024-05-02 04:02] LABS: Anion Gap 9 (5-15); Carbon Dioxide 22 mmol/L (20-31)
[2024-05-02 04:03] LABS: Calcium 8.3 mg/dL (8.7-10.4)
[2024-05-02 04:07] LABS: BUN/Creatinine Ratio 23.7 (10.0-20.0); Blood Urea Nitrogen 23 mg/dL (9-23); Glucose 96 mg/dL (74-106)
--- NOTE | 2024-05-02 04:11 | DVH ---
CHEST RADIOGRAPH Indication:on vent Technique: Single frontal view of the chest was obtained Comparison: XY CHEST XRAY 1 VIEW on DOS: 05/01/24, XY CHEST XRAY 1 VIEW on DOS: 04/30/24, XY CHEST PO RTABLE on DOS: 04/29/24, XY CHEST PORTABLE on DOS: 04/29/24, XY CHEST PORTABLE on DOS: 04/28/24, XY C HEST XRAY 1 VIEW on DOS: 05/01/24 FINDINGS: Lines and Tubes: Tracheostomy, right PICC and right chest tube in satisfactory position. Lungs: Multifocal airspace disease. Pleura: No effusion. No pneumothorax. Cardiomediastinal contours: Unremarkable Bones: Unremarkable IMPRESSION: Lines and tubes in satisfactory position. No significant interval change.
[2024-05-02 04:48] LABS: Anisocytosis Slight; Platelet Estimate Adequate
--- NOTE | 2024-05-02 06:23 | DVHPN2 ---
Progress Note - Dictate Date Seen: May 02, 2024 Has the PT tested + for MRSA If YES, has PT been informed?: No Medical Necessity Reason Pt with a Central, PICC or Fol: Yes The following are medically ne: Central Line, Whipple Catheter Reason for whipple catheter: Strict I&O vital signs Vital Sign Date Time Temp Pulse Resp B/P (MAP) Pulse Ox O2 Delivery O2 Flow Rate FiO2 05/02/24 04:00 24 99 Mechanical Ventilator+ 30 30 05/02/24 04:00 78 107/64 (78) 05/02/24 00:00 98.1 208.6 05/01/24 14:43 12.0 Total Intake and Output 05/01/24 05/01/24 05/02/24 15:00 23:00 07:00 Intake Total 110 ml 542 ml Output Total 420 ml Balance 110 ml 122 ml medications Current Medications Medications Dose Ordered Sig/Destini Route Start Time Stop Time Status Last Admin Dose Admin Heparin Sodium/ Dextrose 250 ml @ 18 mls/hr [id number] IV 03/31/24 23:45 UNV Midazolam HCl 50 ml @ 1 mls/hr Q24H IV 04/01/24 01:30 05/01/24 03:42 5 MLS/HR Albumin Human 100 ml @ 100 mls/hr KIRAN PRN IV 04/03/24 07:00 Sodium Chloride 10 ml QSHIFT@10,22 IV 04/09/24 22:00 05/01/24 22:00 10 ML Iron Sucrose 110 ml @ 110 mls/hr DAILY@1200 IV 04/10/24 12:00 Hold 04/19/24 13:25 110 MLS/HR Amiodarone HCl 200 mg Q12HR PO 04/10/24 22:00 UNV Amiodarone HCl 200 mg Q12HR PO 04/10/24 22:00 05/01/24 21:45 200 MG Albuterol 2.5 mg Q4HR NEB 04/16/24 18:00 05/02/24 02:13 2.5 MG Ipratropium Ringling 0.5 mg Q4HR NEB 04/16/24 18:00 05/02/24 02:13 0.5 MG Budesonide 0.5 mg BID NEB 04/16/24 22:00 05/01/24 21:23 0.5 MG Fentanyl Citrate 250 ml @ 2.5 mls/hr Q24H IV 04/20/24 22:30 04/30/24 17:29 20 MLS/HR Aspirin 81 mg DAILY PO 04/22/24 10:00 05/01/24 09:14 81 MG Enteral Nutritional Formula 1,000 ml 30ML/HR GT 04/21/24 14:45 04/29/24 12:53 1,000 ML Piperacillin Sod/ Tazobactam Sod 100 ml @ 25 mls/hr Q8H IV 04/22/24 00:00 05/01/24 23:55 25 MLS/HR Pantoprazole Sodium 40 mg DAILY IV 04/22/24 10:00 05/01/24 09:14 40 MG Norepinephrine Bitartrate 250 ml @ 1.875 mls/ hr Q24H IV 04/28/24 18:45 05/01/24 00:34 5.7 MLS/HR Purified Water 200 ml TID GT 05/01/24 14:00 05/01/24 22:00 200 ML laboratory and microbiology Laboratory Tests 05/02/24 03:00 Test 05/02/24 03:00 Range/Units Serum Glucose 96 74-106 mg/dL Assessment/Plan Off Levophed Days ago: There was question about EKG showing STEMI. Patient was intubated again by primary team and taken to Irrigation Manager. 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 s/p balloon angioplasty with minimal / partial result s/p thoracoscopy and chest tube placement Patient is a 68-year-old female who was transferred from [facility]. She originally presented to [facility] for shortness of breath ongoing for few days. She is intubated and is being managed in ICU. Information was obtained by reviewing the chart and communicating with staff. Reportedly, she presented with respiratory failure to [facility] (oxygen saturation was 88%) and over there was found to have white blood cell count of 26.6, hemoglobin of 11.1, creatinine of 5.6, potassium of 5.6 and troponin of 1.01. She was given 365 mg of aspirin in [facility]. She did have an episode of atrial fibrillation with RVR with questionable ST changes and was transferred to our facility for further care. She was also found to have right pleural effusion in [facility] and was diagnosed with non-STEMI. s/p tracheostomy, on vent support. Obese. Mucosa is pale. Scattered rhonchi in the lungs is heard. Cardiac: Regular, no thrill/gallop. Abdomen is soft with increased bowel sounds. There is no gross mass. Extremities reveal 1+ edema bilaterally. Available past medical history includes obesity and questionable history of psoriasis. WBC: 25.3 - 23.7 - 20.2 - 20.5 - 17.6 - 18.4 - 19.2 - 19.4 - 22.2 - 16.4 - 16.1 - 19.5 - 14.7 - 12.3 - 9.8 - 10.0 - 8.3 - 9.2 - 10.2 - 11.4 - 10.3 - 12.0 - 13.8 - 16.3 - 18.0 - 18.2 - 16.6 - 15.6 - 11.7 - 9.8 - 9.1 - 11.4 - 12.3 - 15.7 - 15.3 - 14.7 - 11.1 Hemoglobin: 10.8 - 9.1 - 8.5 - 8.4 - 8.8 - 8.6 - 8.9 - 8.1 - 8.4 - 8.1 - 8.1 - 8.2 - 8.0 - 7.4 - 7.4 - 7.7 - 7.1 - 8.0 - 7.5 - 8.8 - 7.1 - 9.0 - 8.9 - 9.0 - 8.4 - 8.4 - 8.4 - 8.1 - 8.2 - 8.0 - 8.0 - 8.0 - 7.8 - 7.1 - 10.8 - 9.0 - 8.8 - 8.5 D-dimer: 3.62 Creatinine: 5.67 - 5.78 - 5.41 - 4.92 - 4.55 - 4.68 - 4.71 - 4.64 - 4.48 - 3.83 - 3.66 - 3.65 - 3.25 - 2.82 - 2.41 - 2.34 - 2.01 - 1.90 - 1.60 - 1.83 - 1.73 - 1.74 - 1.76 - 1.78 - 1.82 - 1.94 - 1.99 - 1.93 - 1.95 - 2.39- 2.09 - 1.81 - 1.54 - 1.41 - 1.32 - 1.31 - 1.17 - 1.09 - 0.97 Potassium: 6.0 - 6.3 - 6.1 - 6.0 - 5.3 - 5.0 - 4.9 - 4.8 - 5.1 - 5.4 - 4.9 - 5.3 - 4.8 - 4.5 - 4.7 - 4.3 - 4.2 - 3.9 - 4.6 - 3.8 - 3.5 - 3.3 - 3.6 - 3.6 - 4.0 - 3.5 - 4.0 - 3.7 - 3.6 - 3.5 - 3.4 - 4.0 - 3.9 - 3.0 - 3.4 - 3.3 - 3.6 - 3.3 - 3.0 - 4.0 - 3.5 - 3.3 - 3.1 Lactic acid: 3.3 - 3.4 - 2.3 - 2.5 - 2.5 - 2.7 - 2.4 - 2.5 - 3.1 - 2.3 - 1.7 - 1.7 TSH: 1.71 BNP: 274.69 - 1944.81 - 373.79 Troponin (high sensitive): 7051 - 5894 - 4082 - 2198 - 761 - 9301 Blood culture: positive Pleural fluid culture: E-coli Digoxin level: 2.09 Stool OB: positive Chest x-ray revealed: IMPRESSION: 1. Moderate right pleural effusion. 2. Cardiomegaly with mild pulmonary vascular congestion bilaterally. Repeat chest x-ray revealed: IMPRESSION: 1. Endotracheal tube and gastric tubes in place as described. 2. Right IJ central venous catheter projects over the lower SVC. 3. Mild cardiomegaly and prominence of the pulmonary vasculature. 4. Moderate to large right pleural effusion. Repeat chest x-ray revealed: IMPRESSION: Similar lung aeration with large right pleural effusion. No pneumothorax seen. Stable lines and tubes. Repeat chest x-ray revealed: IMPRESSION: Similar lung aeration with large right pleural effusion. No pneumothorax seen. Stable lines and tubes. Repeat chest xry revealed: Lines and tubes: ET in the mid thoracic trachea. NG crosses midline. Right CVC is stable. Left HD catheter projects over the mediastinum. Cardiomediastinal silhouette: Enlarged Pulmonary vasculature: prominent Lung expansion: low Lung airspace: patchy bilateral airspace opacity. Lung interstitium: normal Pleura: Similar large right effusion. Pneumothorax: no Bones: Unremarkable Other: no IMPRESSION: Lines and tubes, as above. Similar lung aeration bilaterally with a right pleural effusion and patchy airspace opacities. Repeat chest xry revealed: IMPRESSION: 1. Stable position of the support lines and tubes. 2. Interstitial and alveolar opacities. Repeat chest xry revealed: IMPRESSION: Unchanged multifocal airspace disease. Small to moderate right pleural effusion ; possibly loculated. Repeat chest xry revealed: IMPRESSION: Lines and tubes in satisfactory position. No significant interval change. Repeat chest xry revealed: IMPRESSION: 1. Support lines and tubes in appropriate position. 2. Pulmonary vascular congestion. 3. Bilateral pleural effusions, right greater than left. Repeat chest xry revealed: IMPRESSION: 1. Support lines and tubes in appropriate position. 2. Pulmonary vascular congestion. 3. Bilateral pleural effusions, right greater than left. Repeat chest xry revealed: IMPRESSION: Interval placement of right chest tube which projects deep into the right hilar region. Repeat chest xry revealed: IMPRESSION: No interval change Repeat chest xry revealed: Findings/IMPRESSION: Right IJ CVC terminating in the SVC. Endotracheal tube projected 5 cm superior to the mili. Enteric tube projected below the GE junction. Right-sided PICC projects terminating near the cavoatrial junction. Small bilateral pleural effusions and/or atelectasis with superimposed infection not excluded. Repeat chest xry revealed: MPRESSION: 1. Bilateral pleural effusions and airspace disease right greater than left. Repeat chest xry revealed: IMPRESSION: 1. Endotracheal tube terminates 6.0 cm above the mili, previously 3.1 cm above the mili. Otherwise, No significant interval change. Repeat chest xry revealed: IMPRESSION: 1. Endotracheal tube terminates 6.0 cm above the mili, previously 3.1 cm above the mili. Otherwise, No significant interval change. Repeat chest xry revealed: IMPRESSION: Lines and tubes in satisfactory position. No significant interval change. Repeat chest xry revealed: IMPRESSION: Lines and tubes in satisfactory position. No significant interval change. Repeat chest xry revealed: IMPRESSION: Lines and tubes in satisfactory position. No significant interval change. Repeat chest xry revealed: IMPRESSION: Lines and tubes in satisfactory position. No significant interval change. Repeat chest xry revealed: IMPRESSION: Endotracheal tube projects in appropriate position. Otherwise no significant change Repeat chest xry revealed: FINDINGS: Lines and Tubes: Right PICC and enteric catheter and right chest tube in satisfactory position. Endotracheal tube projects 3.8 cm above the level of the mili. Lungs: Bibasilar opacities. Pleura: Possible small right pleural effusion. No pneumothorax. Cardiomediastinal contours: Unremarkable Bones: Unremarkable IMPRESSION: No significant change compared to prior exam. Repeat chest xry revealed: IMPRESSION: Lines and tubes in satisfactory position. No significant interval change. Repeat chest xry revealed: IMPRESSION: 1. Bibasilar opacities representing pleural effusions and airspace disease similar to prior study. 2. Satisfactory position of the support lines and tubes. Repeat chest xry revealed: IMPRESSION: 1. Stable appearance of the chest. Unchanged position of the support lines and tubes. Repeat chest xry revealed: Lines and Tubes: - Tracheostomy in satisfactory position - Enteric catheter in satisfactory position - Right PICC (Peripherally Inserted Central Catheter) in satisfactory position - Right chest tube in satisfactory position Lungs: - Diffuse pulmonary vascular congestion Pleura: - Possible small bilateral pleural effusions Cardiomediastinal contours: - Unremarkable Bones: Unremarkable IMPRESSION: Tracheostomy in satisfactory position. No other significant interval change. Repeat chest xry revealed: IMPRESSION: 1. Stable pulmonary congestion, patchy right mid to lower lung zone opacities. 2. Stable position of the support lines and tubes. Repeat chest xry revealed: IMPRESSION: Lines and tubes in satisfactory position. No significant interval change. Repeat chest xry revealed: IMPRESSION: Lines and tubes in satisfactory position. No significant interval change. Repeat chest xry revealed: IMPRESSION: Examination is markedly limited by patient positioning. Tracheostomy tube tip appears at the thoracic inlet likely within the trachea. There is a right chest tube right PICC line with tip at the superior vena cava. Bilateral effusions and moderate pulmonary vascular congestion as well as cardiomegaly. No pneumothorax. Repeat chest xry revealed: IMPRESSION: 1. Stable position of the support lines and tubes. 2. Bibasilar opacities similar to prior study. Repeat chest xry revealed: IMPRESSION: 1. Support lines and tubes similar to the prior exam. 2. No significant change in bilateral airspace disease. Repeat chest xry revealed: IMPRESSION: 1. No significant change in position of the support lines and tubes. 2. Slightly improved aeration in the right lung. Repeat chest xry revealed: IMPRESSION: Increased congestion. No other significant interval change. Repeat chest xry revealed: IMPRESSION: Lines and tubes in satisfactory position. No significant interval change. Repeat chest xry revealed: IMPRESSION: Lines and tubes in satisfactory position. No significant interval change. Renal ultrasound revealed: IMPRESSION: 1. Right kidney measures 13.4 cm. Decreased cortical thickness on the right. 2. Left kidney measures 10.2 cm. 3. No hydronephrosis on the right grade 1 hydronephrosis on the left. 4. Bilateral renal calculi. CT scan of the chest/abdomen and pelvis revealed: IMPRESSION: 1. Moderate partially loculated right pleural effusion and consolidations in the right middle and lower lobes which could be pneumonia and/or atelectasis. 2. Mild cardiomegaly, mild interstitial pulmonary edema, and body wall edema. 3. There is a 1.9 cm calculus in the right UPJ with mild right hydronephrosis 4. There is a 2.6 cm somewhat staghorn appearing calculus in the left renal pelvis and UPJ causing mild predominantly mid to lower pole left hydronephrosis. Mild soft tissue stranding about the left renal pelvis which could be due to obstruction or superimposed infection. Correlate with urinalysis. 5. Partial duplication of the left renal collecting system without hydronephrosis in the upper pole. 6. Moderate right perinephric, right retroperitoneal, and bilateral extraperitoneal pelvis low-density fluid and very mild left retroperitoneal low-density fluid. This could be fluid related to bilateral renal obstructions and forniceal ruptures versus evolved retroperitoneal hematoma. This is suboptimally evaluated without intravenous contrast. 7. Fluid-filled small and large bowel loops which may be physiologic or related to enterocolitis and could be manifesting as loose stools and/or diarrhea. 8. Prominent endometrium measuring at least 2.8 cm, suboptimally evaluated by CT. Recommend characterization with nonemergent pelvic ultrasound if clinically indicated. 9. Mild hepatosplenomegaly. 10. Moderate three-vessel calcified coronary artery disease and mild aortic valve calcification. 11. Right IJ central venous catheter in place terminating in the low SVC. 12. Small soft tissue stranding in the right supraclavicular neck which could be blood products. 13. Endotracheal tube terminates above the mili. Repeat CT of chest / abdomen and pelvis revealed: IMPRESSION: 1. Moderate intermediate density right perinephric fluid extending into the bilateral extrarenal pelvis and also to a lesser extent in the peritoneal cavity, which could reflect retroperitoneal hematoma. Evaluation for active bleeding limited on this examination. 2. Moderate partially loculated right pleural effusion with a right thoracostomy tube terminating in the anterior medial right upper lobe. 3. Development of a small amount of air in the right pleural space at the level of the right middle lobe concordant with pneumothorax. 4. Bilateral renal calculi with a staghorn appearing calculus on the left. 5. Dependent consolidations of the [id number]-[id number]-left lower lobes which could reflect atelectasis and/or pneumonia (which can be on the basis of aspiration. 6. Mild cardiomegaly, mild aortic valve calcifications and moderate coronary artery calcifications. Mild Interstitial pulmonary edema. CT of the head revealed: IMPRESSION: 1. No acute intracranial abnormality. 2. Generalized cerebral volume loss and mild chronic microvascular ischemic change. 3. Partially imaged endotracheal tube. Chest ultrasound revealed: Findings/Impression: There is a trace bilateral pleural effusion. Thoracentesis: FINDINGS: Moderate size, complex and septated right pleural effusion. Aspirated fluid is thick and green in consistency. IMPRESSION: Right thoracentesis with 250 mL removed for laboratory analysis. EKG in [facility] revealed sinus tachycardia, poor R-wave progression old inferior wall [place]. later EKG revealed atrial fibrillation with RVR. Repeat EKGs questioned STEMI. but resolved later. Telemetry reveals sinus rhythm, occasions of A-fib with RVR, SVT Echocardiogram revealed: Technically limited study secondary to poor acoustic windows. Left ventricle: Left ventricle was normal-sized. Mild concentric left ventricular hypertrophy was seen. LVEF was 55-60%. No gross wall motion abnormality was observed, but its presence can not be ruled out on the basis of this study. Right ventricle is mildly dilated with normal systolic function. Left atrium was mildly dilated. Right atrium was normal-sized. Aortic valve was trileaflet. There was no aortic insufficiency. There was aortic sclerosis with no stenosis. There was trivial mitral/tricuspid regurgitation. Pulmonary valve was not well visualized. Right ventricular systolic pressure was assessed around 48 mm Hg. There was no pericardial effusion. Left heart cath revealed: One-vessel coronary artery disease, INSTRUMENT MAKER AND REPAIRER of mid LAD, Attempted to open up the LAD INSTRUMENT MAKER AND REPAIRER, partially/minimally successful (status post balloon angioplasty). LVEF of 25% (dilated LV). Cardiac suggestion for management: Dual antiplatelet therapy (loaded with aspirin and Plavix). Guideline directed medical therapy for systolic heart failure Repeat echo revealed: Technically limited study secondary to poor acoustic windows. Left ventricle: Concentric left ventricular hypertrophy was seen anteroapical hypokinesia was seen. The LVEF was around 40%. Right ventricular was normal sized with normal systolic function. Atria were not well-visualized. Aortic valve: Aortic valve was not well visualized. There was no aortic stenosis/insufficiency. Mild mitral/tricuspid regurgitation was observed. Pulmonary valve was not well visualized. Right ventricular systolic pressure was assessed around 35 mm Hg. There was no pericardial effusion. Patient is a 68-year-old morbidly obese patient who presented with respiratory failure to the hospital. Presentation is in favor of sepsis/septic shock. Multiorgan failure is observed. She is intubated and on vent support. She is on multiple pressor support. Life findings are in favor of acute renal failure. She also is known to have nephrolithiasis with history of staghorn calculi. Cardiac-ceballos, the patient did have episode of atrial fibrillation with RVR. She is found to have increased troponin. Presentation questions non-STEMI and possibly type 2 ischemia. Recognizing the presentation, ischemic workup should be postponed after clinical stability (only if patient recovers higher brain function). Is being followed by Nephrology. Had episodes of tachyarrhythmia. Loaded with Digoxin. Positive cultures. Repeated a-fib with RVR. Was evaluated by Interventional Cardiology diamond sorter for STEMI (not considered STEMI). 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 s/p balloon angioplasty with minimal / partial result. s/p repeat right thoracotomy and right lung decortication and chest tube placement. Septic shock Multiorgan failure Acute respiratory failure on vent support Acute renal failure Nephrolithiasis Staghorn calculi Hydronephrosis Abnormal troponin, non-STEMI Atrial fibrillation with RVR Paroxysmal AFib Acute heart failure, diastolic Hepatosplenomegaly Pleural effusion Status post thoracentesis Morbid obesity s/p Cardioversion for A-fib with RVR s/p thoracoscopy and chest tube placement CAD: INSTRUMENT MAKER AND REPAIRER of mid LAD (considered old) with full of thrombus. s/p balloon angioplasty with minimal / partial result s/p tracheostomy s/p repeat thoracotomy and right lung decortication Cardiac suggestion for management: Manage in ICU Follow-up electrolytes and kidney function tests and correct abnormalities Pressure support to keep mean arterial pressure above 65 Amiodarone oral/N mg HS Daily aspirin (81 mg daily) s/p thoracoscopy and chest tube placement s/p repeat thoracotomy, right lung decortication and chest tube placement. s/p tracheostomy IV metoprolol PRN for a-fib with RVR episodes. Sepsis workup and management as per primary team Evaluation and management of respiratory failure as per primary team/Pulmonary Evaluation and management of nephrolithiasis/hydronephrosis as per primary/Urology Evaluation and management of acute renal failure as per Nephrology Further evaluation and management as per above and clinical course. A total of 75 minutes was spent reviewing the patient record, examining the patient, making a diagnostic and therapeutic plan, discussing this plan with medical personnel, following up on diagnostic studies and following the patient for clinical stability excluding any and all procedures. At least 50% of this time was spent in direct, [id number] contact. Thank you for allowing me to participate in this patient's care. Further recommendations will depend on patient's clinical course. Please do not hesitate to contact me if you have any questions or concerns. This medical document was created using electronic medical record system with [employer] computerized dictation system. Although this document has been carefully reviewed, there may still be some phonetic and typographical errors. These areas are purely typographical due to the imperfection of the software programs, and do not reflect any compromise in the patient's medical care. Dietary Evaluation Review Comments: 1) If GI is accessible consider Nepro 1.8 @ 30 ml/hr goal rate as tolerated with current rate of propofol on board. 2) If pt remains NPO >7 days consider TPN to meet at least 75% of estimated needs 3) If pt continues to receive HD, advance pt diet when medically feasible to a Renal Standard diet modified per TERMINAL OPERATOR recommendations 4) If HD is discontinued and GFR is within normal range, advance pt diet to a Regular diet, modified per TERMINAL OPERATOR recommendations 5)If HD is discontinued and GFR lies within STG 1-4, advance pt diet to a Renal Specific K2,lowphos,HECTOR,2gmNa,80gPro diet 6) If HD is discontinued and if GFR returns to normal levels then ALEXANDRA 1 pkt BID with meals may be considered to aid with wound healing 7) Continue current plan of care Expected Outcomes/Goals: 1) Pt to receive nutrition support within 7 days of NPO status 2) Pt labs to improve 3) Pt diet to advance 4) F/U in 2-3 days Plan discussed with: Other (nurse) HERMINIO JOHNSON MD May 02, 2024 06:23
[2024-05-02 06:52] LABS: Base Excess -5.2 mmol/L (-2.0-3.0)
[2024-05-02] MEDS: POTASSIUM CHL 20MEQ/100ML 100 ML IV SCH (09:40)
[2024-05-02] MEDS: Jevity 1.2 Cal/Fiber 1 Liter GT SCH (12:59)
[2024-05-02] MEDS: PSYLLIUM PWD 5.8GM PKG GT ONE (14:43)
--- NOTE | 2024-05-02 15:51 | DVHPNRES ---
Progress Note Date Seen: May 02, 2024 Resident Creating Document: JUAN VAZQUEZ RESIDENT Has the PT tested + for MRSA If YES, has PT been informed?: No Medical Necessity Reason Pt with a Central, PICC or Fol: Yes The following are medically ne: Central Line, Whipple Catheter Reason for whipple catheter: Strict I&O Subjective Review of Systems HPI: 68/female, past medical history: Unknown Patient is 68-year-old female who was brought to the hospital from [facility] for higher level of care. Patient was initially treated facility for shortness of breath and was transferred to our hospital. During initial ED evaluation patient found to be tachypneic with severe respiratory failure, atrial fibrillation. Initially patient required oxygenation via non- rebreather mask however patient intubated to protect airway. Patient started on IV antibiotic, requiring vasopressor and amiodarone drip initially. With further evaluation chest ultrasound showed bilateral pleural effusion, CT scan of chest and abdomen was performed which showed partially loculated right pleural effusion and consolidation in right middle and lower lobe. Patient also found to have right hydronephrosis with 1.9 cm calculus into right UPJ. Radiologist performed right-sided thoracentesis which removed 250 mL of fluid. L patient was placed with right-sided chest tube for loculated empyema. Patient underwent right thoracoscopy with evacuation empyema with insertion of chest tube. Patient was extubated on April 16/2024. Patient was reintubated back given possible STEMI and transferred to left heart catheterization. Rehabilitation Team Lead did angioplasty for complete total occlusion of mid LAD. Started on heparin drip, aspirin and Plavix. Patient continued to have x-ray findings with right lower lobe opacity. Continued on antibiotic. Continued require vasopressors, chest type continued to drain. No air leak. ROS: Not obtained as patient is intubated Today patient was seen and examined at bedside. patient underwent trach colar trail with t piece. No new complaints. Patent and draining chest tube. Continuous similar ventilator setting. Not on any pressor. Underwent trach collar trial with T-piece. Plan to do tomorrow again. No other night events. Objective vital signs Vital Sign Date Time Temp Pulse Resp B/P (MAP) Pulse Ox O2 Delivery O2 Flow Rate FiO2 05/02/24 14:56 94 T-piece 10.0 05/02/24 14:56 N/A 05/02/24 14:00 97 35 122/54 (76) 05/02/24 12:00 97.8 97.8 Total Intake and Output 05/01/24 05/01/24 05/02/24 15:00 23:00 07:00 Intake Total 110 ml 542 ml 700 ml Output Total 420 ml 300 ml Balance 110 ml 122 ml 400 ml medications Current Medications Medications Dose Ordered Sig/Destini Route Start Time Stop Time Status Last Admin Dose Admin Heparin Sodium/ Dextrose 250 ml @ 18 mls/hr [id number] IV 03/31/24 23:45 UNV Midazolam HCl 50 ml @ 1 mls/hr Q24H IV 04/01/24 01:30 05/01/24 03:42 5 MLS/HR Albumin Human 100 ml @ 100 mls/hr KIRAN PRN IV 04/03/24 07:00 Sodium Chloride 10 ml QSHIFT@10,22 IV 04/09/24 22:00 05/02/24 09:40 10 ML Iron Sucrose 110 ml @ 110 mls/hr DAILY@1200 IV 04/10/24 12:00 Hold 04/19/24 13:25 110 MLS/HR Amiodarone HCl 200 mg Q12HR PO 04/10/24 22:00 UNV Albuterol 2.5 mg Q4HR NEB 04/16/24 18:00 05/02/24 14:56 2.5 MG Ipratropium Bradley 0.5 mg Q4HR NEB 04/16/24 18:00 05/02/24 14:56 0.5 MG Budesonide 0.5 mg BID NEB 04/16/24 22:00 05/02/24 06:56 0.5 MG Fentanyl Citrate 250 ml @ 2.5 mls/hr Q24H IV 04/20/24 22:30 04/30/24 17:29 20 MLS/HR Aspirin 81 mg DAILY PO 04/22/24 10:00 05/02/24 09:40 81 MG Piperacillin Sod/ Tazobactam Sod 100 ml @ 25 mls/hr Q8H IV 04/22/24 00:00 05/02/24 07:54 25 MLS/HR Pantoprazole Sodium 40 mg DAILY IV 04/22/24 10:00 05/02/24 09:40 40 MG Norepinephrine Bitartrate 250 ml @ 1.875 mls/ hr Q24H IV 04/28/24 18:45 05/01/24 00:34 5.7 MLS/HR Purified Water 200 ml TID GT 05/01/24 14:00 05/02/24 14:44 200 ML Amiodarone HCl 200 mg HS PO 05/02/24 22:00 Enteral Nutritional Formula 1,000 ml 60ML/HR GT 05/02/24 12:45 05/02/24 12:59 1,000 ML Examination General: Patient is intubated and sedated. HEENT: Normocephalic, atraumatic, moist mucous membranes Respiratory/pulmonary: There are no breath sounds audible in the right lung base and diminished breath sounds on the left lung as well. Presence of two chest tube with connection to drainage. No air leak. Cardiovascular: Heart rate and rhythm is oscillating significantly from sinus rhythm to AFib rate controlled to AFib with RVR. No murmurs at this time. Abdomen: Abdomen slightly distended, there is no pain to palpation in any of the abdominal quadrants, no palpable masses. Extremities: There is minimal swelling in the lower extremities bilaterally. Peripheral Pulses: 3+ Radial (R). 3+ Radial (L). 3+ Dorsalis pedis (R). 3+ Dorsalis pedis(L) Skin: There is dry skin in bilateral lower extremities with scales and excoriations. Neurological: Sedated, RASS - laboratory and microbiology Laboratory Tests 05/02/24 03:00 Test 05/02/24 03:00 Range/Units Serum Glucose 96 74-106 mg/dL Microbiology Date/Time Source Procedure Growth Status 04/29/24 08:17 Pleural Fluid Gram Stain - Final Resulted 04/29/24 08:17 Pleural Fluid Anaerobic Culture - Preliminary Resulted 04/29/24 08:17 Pleural Fluid Aerobic Culture - Preliminary Resulted 04/22/24 18:03 Urine - Whipple [place] Urine Culture - Final Yeast, not Arlet albicans Complete 04/22/24 15:16 Blood Blood Culture - Final NO GROWTH AFTER 5 DAYS OF INCUBATION. Complete 04/18/24 15:02 Sputum Gram Stain - Final Complete 04/18/24 15:02 Respiratory Culture - Final Yeast, not Arlet albicans Complete 04/01/24 11:19 Nose MRSA Screen - Final Complete Problem List/Assessment/Plan Problem List/Assessment/Plan Neurology Sedation -currently on midazolam and fentanyl Respiratory Acute hypoxic respirtory failure likel due to right-sided pleural effusion/empyema and consolidation on right middle and lower lobe -on mechanical ventilation: Respiratory rate 16, tidal volume 500, FiO2 30%, peep 5 cm H2O -presence of two chest tube: Minimal drainage, no air leak. -chest x-ray on 04/22/2022: Right-sided pleural effusion, right lower lobe opacification. -IV antibiotic with Zosyn -CT of the chest and abdomen showed moderate partial loculated right pleural effusion and consolidation on right middle/lower lobes. Mild cardiomegaly and interstitial pulmonary edema. It also showed right hydronephrosis with 1.9 cm calculus into the right UPJ. There is also a 2.6 cm staghorn appearing calculus causing mid to lower pole left hydronephrosis. -Respiratory culture: Yeast, not Arlet on 04/17/2024. Repeat culture pending. -CT chest(04/22/24):1. Moderate intermediate density right perinephric fluid extending into the bilateral extrarenal pelvis and also to a lesser extent in the peritoneal cavity, which could reflect retroperitoneal hematoma. Evaluation for active bleeding limited on this examination. 2. Moderate partially loculated right pleural effusion with a right thoracostomy tube terminating in the anterior medial right upper lobe. 3. Development of a small amount of air in the right pleural space at the level of the right middle lobe concordant with pneumothorax. 4. Bilateral renal calculi with a staghorn appearing calculus on the left. 5. Dependent consolidations of the yttvp-[id number]-kuvl-left lower lobes which could reflect atelectasis and/or pneumonia (which can be on the basis of aspiration. 6. Mild cardiomegaly, mild aortic valve calcifications and moderate coronary artery calcifications. Mild Interstitial pulmonary edema. -Underwent tracheostomy (04/23/24) -Surgical(04/29/24): Right thoracotomy, evacuation of right empyema. Irrigation and drainage of right chest cavity. -underwent trach collar trial as well. Continued tomorrow as well. Septic shock in the setting of loculated right-sided pleural effusion and pneumonia -continue management of acute respiratory failure likely due to empyema. -Off vasopressor - continue zosyn -Respiratory culture positive for yeast on 04/17/2024.: DC micafungin. S/P Tracheostomy (04/23/24) Cardiology Acute on chronic systolic/diastolic heart failure -echocardiogram is showing an LVEF of 55-60% with increased RVSP at 48 mmHg and no pericardial effusion -Continue monitor I/O -repeat x ray In AM NSTEMI type II likely due to above -continue current management. -CAD: PLASTERER HELPER of mid LAD (considered old) with full of thrombus. s/p balloon angioplasty with minimal / partial result -Aspirin Atrial fibrilation with RVR: Rate controlled -continue amiodarone 200 mg p.o. b.i.d. -Cardiology on board -Not on anticoagulation Nephrology Hypernatremia :Improved -repeat sodium level in a.m. -Free water :200ml GT TID Bilateral hydronephrosis with left-sided staghorn calculi and right UVJ calculi -CT scan of the chest and abdomen showed right hydronephrosis with 1.9 cm calculus into the right UPJ, there was also a 2.6 cm staghorn appearing calculus causing mid to lower pole left hydronephrosis. -nephrology on board -drainage with Whipple catheter. -continue I/O monitoring CHRISTOPH due to VMN initially likely in setting of septic shock: Resolved -most likely secondary to bilateral renal calculi -nephrology and urology on board -monitor kidney function Hypokalemia -replenish Hematogy Normocytic anemia:Stable -2 Unit of PRBCS given Nutrition Nepro 20 mL/hour via G-tube., target 30 ml/hr Lines: Right upper arm PICC line: Placed on 04/09/2024 PUD prophylaxis: Protonix DVT prophylaxis: Lovenox Goals of care discussed with the daughter and brother at bedside for >31min by Dr. Perez previously Critical time spent > 61 min Plan discussed with Dr Boyd Plan discussed with: Other My Orders My Orders Orders - JUAN VAZQUEZ RESIDENT Procedure Category Date Status Time Chest Xray 1 View XY 05/02/24 Resulted 04:00 Abg W/ Co-Ox RT 05/02/24 Logged 04:00 Nutritional PHA 05/02/24 In Process Supplements (Jevity 12:45 Stool Bacterial TRESSA 05/02/24 In Process Culture 14:19 Dietary Evaluation Review Comments: 1) If GI is accessible consider Nepro 1.8 @ 30 ml/hr goal rate as tolerated with current rate of propofol on board. 2) If pt remains NPO >7 days consider TPN to meet at least 75% of estimated needs 3) If pt continues to receive HD, advance pt diet when medically feasible to a Renal Standard diet modified per LIFESTYLE COORDINATOR recommendations 4) If HD is discontinued and GFR is within normal range, advance pt diet to a Regular diet, modified per LIFESTYLE COORDINATOR recommendations 5)If HD is discontinued and GFR lies within STG 1-4, advance pt diet to a Renal Specific K2,lowphos,HECTOR,2gmNa,80gPro diet 6) If HD is discontinued and if GFR returns to normal levels then ALEXANDRA 1 pkt BID with meals may be considered to aid with wound healing 7) Continue current plan of care Expected Outcomes/Goals: 1) Pt to receive nutrition support within 7 days of NPO status 2) Pt labs to improve 3) Pt diet to advance 4) F/U in 2-3 days Date of Service: May 02, 2024 Billing Provider: MINDY BOYD MD Common Visit Codes: [id number] INP/OBS CARE(HIGH) JUAN VAZQUEZ RESIDENT May 02, 2024 15:51 MINDY BOYD MD May 02, 2024 22:23
[2024-05-02] MEDS: ENOXAPARIN SOD 40 MG/0.4 ML SYRINGE SC ONE (16:53)
[2024-05-02] MEDS: AMIODARONE HCL 200 MG TAB PO SCH (21:44)
[2024-05-03] VITALS (51 sets, daily range): BP systolic 88–166; BP diastolic 45–71; PULSE 78–102; RESP 10–55; TEMP 97.8–98.3; O2SAT 93–100
[2024-05-03 03:37] LABS: Basophils # (auto) 0 10 ^3/uL (0-0.2); Basophils % (auto) 0.5 % (0.0-2.0); Eosinophils # (auto) 0.3 10 ^3/uL (0-0.8); Eosinophils % (auto) 2.6 % (0.0-7.0); Hemoglobin 9.2 g/dL (12.2-16.2); Lymphocytes # (auto) 0.9 10 ^3/uL (0.4-5.4); Lymphocytes % (auto) 8.5 % (10.0-50.0); Mean Corpuscular Hemoglobin 30.7 pg (28.0-32.0); Mean Corpuscular Hgb Conc. 32.8 g/dL (32.0-36.0); Mean Corpuscular Volume 93.3 fL (80.0-100.0); Monocytes # (auto) 0.3 10 ^3/uL (0-1.3); Monocytes % (auto) 2.7 % (0.0-12.0); Neutrophils # (auto) 9.4 10 ^3/uL (1.6-8.6); Neutrophils % (auto) 85.7 % (37.0-80.0); Nucleated Red Blood Cells % 0.2 %; Platelet Count (auto) 157 10^3/uL (140-450)
[2024-05-03 03:49] LABS: Red Cell Distribution Width 26.7 % (11.8-14.3)
[2024-05-03 04:00] LABS: Anion Gap 9 (5-15); Calcium 8.2 mg/dL (8.7-10.4); Carbon Dioxide 21 mmol/L (20-31); Chloride 112 mmol/L (98-107); Potassium 3.5 mmol/L (3.5-5.1); Sodium 142 mmol/L (136-145)
[2024-05-03 04:06] LABS: BUN/Creatinine Ratio 21.3 (10.0-20.0); Blood Urea Nitrogen 20 mg/dL (9-23); Glucose 90 mg/dL (74-106)
--- NOTE | 2024-05-03 05:13 | DVHPN2 ---
Progress Note - Dictate Date Seen: May 03, 2024 Has the PT tested + for MRSA If YES, has PT been informed?: No Medical Necessity Reason Pt with a Central, PICC or Fol: Yes The following are medically ne: Central Line, Whipple Catheter Reason for whipple catheter: Strict I&O Subjective Patient seen and examined at the bedside within the ICU. Chart reviewed. vital signs Vital Sign Date Time Temp Pulse Resp B/P (MAP) Pulse Ox O2 Delivery O2 Flow Rate FiO2 05/03/24 04:13 82 29 94/47 (63) 99 30 05/03/24 04:00 97.9 97.9 05/03/24 04:00 Mechanical Ventilator+ 0 Total Intake and Output 05/02/24 05/02/24 05/03/24 15:00 23:00 07:00 Intake Total 300 ml 320 ml 100 ml Output Total 265 ml Balance 300 ml 55 ml 100 ml medications Current Medications Medications Dose Ordered Sig/Destini Route Start Time Stop Time Status Last Admin Dose Admin Heparin Sodium/ Dextrose 250 ml @ 18 mls/hr [id number] IV 03/31/24 23:45 UNV Midazolam HCl 50 ml @ 1 mls/hr Q24H IV 04/01/24 01:30 05/01/24 03:42 5 MLS/HR Albumin Human 100 ml @ 100 mls/hr KIRAN PRN IV 04/03/24 07:00 Sodium Chloride 10 ml QSHIFT@,22 IV 04/09/24 22:00 05/02/24 21:44 10 ML Iron Sucrose 110 ml @ 110 mls/hr DAILY@1200 IV 04/10/24 12:00 Hold 04/19/24 13:25 110 MLS/HR Amiodarone HCl 200 mg Q12HR PO 04/10/24 22:00 UNV Albuterol 2.5 mg Q4HR NEB 04/16/24 18:00 05/03/24 01:45 2.5 MG Ipratropium [place] 0.5 mg Q4HR NEB 04/16/24 18:00 05/03/24 01:44 0.5 MG Budesonide 0.5 mg BID NEB 04/16/24 22:00 05/02/24 22:13 0.5 MG Fentanyl Citrate 250 ml @ 2.5 mls/hr Q24H IV 04/20/24 22:30 04/30/24 17:29 20 MLS/HR Aspirin 81 mg DAILY PO 04/22/24 10:00 05/02/24 09:40 81 MG Piperacillin Sod/ Tazobactam Sod 100 ml @ 25 mls/hr Q8H IV 04/22/24 00:00 05/02/24 23:52 25 MLS/HR Pantoprazole Sodium 40 mg DAILY IV 04/22/24 10:00 05/02/24 09:40 40 MG Norepinephrine Bitartrate 250 ml @ 1.875 mls/ hr Q24H IV 04/28/24 18:45 05/01/24 00:34 5.7 MLS/HR Purified Water 200 ml TID GT 05/01/24 14:00 05/02/24 21:44 200 ML Amiodarone HCl 200 mg HS PO 05/02/24 22:00 05/02/24 21:44 200 MG Enteral Nutritional Formula 1,000 ml 60ML/HR GT 05/02/24 12:45 05/02/24 12:59 1,000 ML Enoxaparin Sodium 40 mg DAILY SC 05/03/24 10:00 laboratory and microbiology Laboratory Tests 05/03/24 03:10 Test 05/03/24 03:10 Range/Units Serum Glucose 90 74-106 mg/dL Assessment/Plan Assessment/Plan Off Levophed Days ago: There was question about EKG showing STEMI. Patient was intubated again by primary team and taken to Machine Striper. s/p Cardiac cath (on 04/17/2024) Was found to have PRESS OFFICER of mid LAD (considered old) with full of thrombus. s/p balloon angioplasty with minimal / partial result s/p thoracoscopy and chest tube placement Patient is a 68-year-old female who was transferred from [facility]. She originally presented to [facility] for shortness of breath ongoing for few days. She is intubated and is being managed in ICU. Information was obtained by reviewing the chart and communicating with staff. Reportedly, she presented with respiratory failure to [facility] (oxygen saturation was 88%) and over there was found to have white blood cell count of 26.6, hemoglobin of 11.1, creatinine of 5.6, potassium of 5.6 and troponin of 1.01. She was given 365 mg of aspirin in [facility]. She did have an episode of atrial fibrillation with RVR with questionable ST changes and was transferred to our facility for further care. She was also found to have right pleural effusion in [facility] and was diagnosed with non-STEMI. s/p tracheostomy, on vent support. Obese. Mucosa is pale. Scattered rhonchi in the lungs is heard. Cardiac: Regular, no thrill/gallop. Abdomen is soft with increased bowel sounds. There is no gross mass. Extremities reveal 1+ edema bilaterally. Available past medical history includes obesity and questionable history of psoriasis. WBC: 25.3 - 23.7 - 20.2 - 20.5 - 17.6 - 18.4 - 19.2 - 19.4 - 22.2 - 16.4 - 16.1 - 19.5 - 14.7 - 12.3 - 9.8 - 10.0 - 8.3 - 9.2 - 10.2 - 11.4 - 10.3 - 12.0 - 13.8 - 16.3 - 18.0 - 18.2 - 16.6 - 15.6 - 11.7 - 9.8 - 9.1 - 11.4 - 12.3 - 15.7 - 15.3 - 14.7 - 11.1 - 11.0 Hemoglobin: 10.8 - 9.1 - 8.5 - 8.4 - 8.8 - 8.6 - 8.9 - 8.1 - 8.4 - 8.1 - 8.1 - 8.2 - 8.0 - 7.4 - 7.4 - 7.7 - 7.1 - 8.0 - 7.5 - 8.8 - 7.1 - 9.0 - 8.9 - 9.0 - 8.4 - 8.4 - 8.4 - 8.1 - 8.2 - 8.0 - 8.0 - 8.0 - 7.8 - 7.1 - 10.8 - 9.0 - 8.8 - 8.5 - 9.2 D-dimer: 3.62 Creatinine: 5.67 - 5.78 - 5.41 - 4.92 - 4.55 - 4.68 - 4.71 - 4.64 - 4.48 - 3.83 - 3.66 - 3.65 - 3.25 - 2.82 - 2.41 - 2.34 - 2.01 - 1.90 - 1.60 - 1.83 - 1.73 - 1.74 - 1.76 - 1.78 - 1.82 - 1.94 - 1.99 - 1.93 - 1.95 - 2.39- 2.09 - 1.81 - 1.54 - 1.41 - 1.32 - 1.31 - 1.17 - 1.09 - 0.97 - 0.94 Potassium: 6.0 - 6.3 - 6.1 - 6.0 - 5.3 - 5.0 - 4.9 - 4.8 - 5.1 - 5.4 - 4.9 - 5.3 - 4.8 - 4.5 - 4.7 - 4.3 - 4.2 - 3.9 - 4.6 - 3.8 - 3.5 - 3.3 - 3.6 - 3.6 - 4.0 - 3.5 - 4.0 - 3.7 - 3.6 - 3.5 - 3.4 - 4.0 - 3.9 - 3.0 - 3.4 - 3.3 - 3.6 - 3.3 - 3.0 - 4.0 - 3.5 - 3.3 - 3.1 - 3.5 Lactic acid: 3.3 - 3.4 - 2.3 - 2.5 - 2.5 - 2.7 - 2.4 - 2.5 - 3.1 - 2.3 - 1.7 - 1.7 TSH: 1.71 BNP: 274.69 - 1944.81 - 373.79 Troponin (high sensitive): 4559 - 3289 - 6292 - 7022 - 850 - 2845 Blood culture: positive Pleural fluid culture: E-coli Digoxin level: 2.09 Stool OB: positive Chest x-ray revealed: IMPRESSION: 1. Moderate right pleural effusion. 2. Cardiomegaly with mild pulmonary vascular congestion bilaterally. Repeat chest x-ray revealed: IMPRESSION: 1. Endotracheal tube and gastric tubes in place as described. 2. Right IJ central venous catheter projects over the lower SVC. 3. Mild cardiomegaly and prominence of the pulmonary vasculature. 4. Moderate to large right pleural effusion. Repeat chest x-ray revealed: IMPRESSION: Similar lung aeration with large right pleural effusion. No pneumothorax seen. Stable lines and tubes. Repeat chest x-ray revealed: IMPRESSION: Similar lung aeration with large right pleural effusion. No pneumothorax seen. Stable lines and tubes. Repeat chest xry revealed: Lines and tubes: ET in the mid thoracic trachea. NG crosses midline. Right CVC is stable. Left HD catheter projects over the mediastinum. Cardiomediastinal silhouette: Enlarged Pulmonary vasculature: prominent Lung expansion: low Lung airspace: patchy bilateral airspace opacity. Lung interstitium: normal Pleura: Similar large right effusion. Pneumothorax: no Bones: Unremarkable Other: no IMPRESSION: Lines and tubes, as above. Similar lung aeration bilaterally with a right pleural effusion and patchy airspace opacities. Repeat chest xry revealed: IMPRESSION: 1. Stable position of the support lines and tubes. 2. Interstitial and alveolar opacities. Repeat chest xry revealed: IMPRESSION: Unchanged multifocal airspace disease. Small to moderate right pleural effusion ; possibly loculated. Repeat chest xry revealed: IMPRESSION: Lines and tubes in satisfactory position. No significant interval change. Repeat chest xry revealed: IMPRESSION: 1. Support lines and tubes in appropriate position. 2. Pulmonary vascular congestion. 3. Bilateral pleural effusions, right greater than left. Repeat chest xry revealed: IMPRESSION: 1. Support lines and tubes in appropriate position. 2. Pulmonary vascular congestion. 3. Bilateral pleural effusions, right greater than left. Repeat chest xry revealed: IMPRESSION: Interval placement of right chest tube which projects deep into the right hilar region. Repeat chest xry revealed: IMPRESSION: No interval change Repeat chest xry revealed: Findings/IMPRESSION: Right IJ CVC terminating in the SVC. Endotracheal tube projected 5 cm superior to the mili. Enteric tube projected below the GE junction. Right-sided PICC projects terminating near the cavoatrial junction. Small bilateral pleural effusions and/or atelectasis with superimposed infection not excluded. Repeat chest xry revealed: MPRESSION: 1. Bilateral pleural effusions and airspace disease right greater than left. Repeat chest xry revealed: IMPRESSION: 1. Endotracheal tube terminates 6.0 cm above the mili, previously 3.1 cm above the mili. Otherwise, No significant interval change. Repeat chest xry revealed: IMPRESSION: 1. Endotracheal tube terminates 6.0 cm above the mili, previously 3.1 cm above the mili. Otherwise, No significant interval change. Repeat chest xry revealed: IMPRESSION: Lines and tubes in satisfactory position. No significant interval change. Repeat chest xry revealed: IMPRESSION: Lines and tubes in satisfactory position. No significant interval change. Repeat chest xry revealed: IMPRESSION: Lines and tubes in satisfactory position. No significant interval change. Repeat chest xry revealed: IMPRESSION: Lines and tubes in satisfactory position. No significant interval change. Repeat chest xry revealed: IMPRESSION: Endotracheal tube projects in appropriate position. Otherwise no significant change Repeat chest xry revealed: FINDINGS: Lines and Tubes: Right PICC and enteric catheter and right chest tube in satisfactory position. Endotracheal tube projects 3.8 cm above the level of the mili. Lungs: Bibasilar opacities. Pleura: Possible small right pleural effusion. No pneumothorax. Cardiomediastinal contours: Unremarkable Bones: Unremarkable IMPRESSION: No significant change compared to prior exam. Repeat chest xry revealed: IMPRESSION: Lines and tubes in satisfactory position. No significant interval change. Repeat chest xry revealed: IMPRESSION: 1. Bibasilar opacities representing pleural effusions and airspace disease similar to prior study. 2. Satisfactory position of the support lines and tubes. Repeat chest xry revealed: IMPRESSION: 1. Stable appearance of the chest. Unchanged position of the support lines and tubes. Repeat chest xry revealed: Lines and Tubes: - Tracheostomy in satisfactory position - Enteric catheter in satisfactory position - Right PICC (Peripherally Inserted Central Catheter) in satisfactory position - Right chest tube in satisfactory position Lungs: - Diffuse pulmonary vascular congestion Pleura: - Possible small bilateral pleural effusions Cardiomediastinal contours: - Unremarkable Bones: Unremarkable IMPRESSION: Tracheostomy in satisfactory position. No other significant interval change. Repeat chest xry revealed: IMPRESSION: 1. Stable pulmonary congestion, patchy right mid to lower lung zone opacities. 2. Stable position of the support lines and tubes. Repeat chest xry revealed: IMPRESSION: Lines and tubes in satisfactory position. No significant interval change. Repeat chest xry revealed: IMPRESSION: Lines and tubes in satisfactory position. No significant interval change. Repeat chest xry revealed: IMPRESSION: Examination is markedly limited by patient positioning. Tracheostomy tube tip appears at the thoracic inlet likely within the trachea. There is a right chest tube right PICC line with tip at the superior vena cava. Bilateral effusions and moderate pulmonary vascular congestion as well as cardiomegaly. No pneumothorax. Repeat chest xry revealed: IMPRESSION: 1. Stable position of the support lines and tubes. 2. Bibasilar opacities similar to prior study. Repeat chest xry revealed: IMPRESSION: 1. Support lines and tubes similar to the prior exam. 2. No significant change in bilateral airspace disease. Repeat chest xry revealed: IMPRESSION: 1. No significant change in position of the support lines and tubes. 2. Slightly improved aeration in the right lung. Repeat chest xry revealed: IMPRESSION: Increased congestion. No other significant interval change. Repeat chest xry revealed: IMPRESSION: Lines and tubes in satisfactory position. No significant interval change. Repeat chest xry revealed: IMPRESSION: Lines and tubes in satisfactory position. No significant interval change. Repeat chest xry revealed: IMPRESSION: Lines and tubes in satisfactory position. No significant interval change. Renal ultrasound revealed: IMPRESSION: 1. Right kidney measures 13.4 cm. Decreased cortical thickness on the right. 2. Left kidney measures 10.2 cm. 3. No hydronephrosis on the right grade 1 hydronephrosis on the left. 4. Bilateral renal calculi. CT scan of the chest/abdomen and pelvis revealed: IMPRESSION: 1. Moderate partially loculated right pleural effusion and consolidations in the right middle and lower lobes which could be pneumonia and/or atelectasis. 2. Mild cardiomegaly, mild interstitial pulmonary edema, and body wall edema. 3. There is a 1.9 cm calculus in the right UPJ with mild right hydronephrosis 4. There is a 2.6 cm somewhat staghorn appearing calculus in the left renal pelvis and UPJ causing mild predominantly mid to lower pole left hydronephrosis. Mild soft tissue stranding about the left renal pelvis which could be due to obstruction or superimposed infection. Correlate with urinalysis. 5. Partial duplication of the left renal collecting system without hydronephrosis in the upper pole. 6. Moderate right perinephric, right retroperitoneal, and bilateral extraperitoneal pelvis low-density fluid and very mild left retroperitoneal low-density fluid. This could be fluid related to bilateral renal obstructions and forniceal ruptures versus evolved retroperitoneal hematoma. This is suboptimally evaluated without intravenous contrast. 7. Fluid-filled small and large bowel loops which may be physiologic or related to enterocolitis and could be manifesting as loose stools and/or diarrhea. 8. Prominent endometrium measuring at least 2.8 cm, suboptimally evaluated by CT. Recommend characterization with nonemergent pelvic ultrasound if clinically indicated. 9. Mild hepatosplenomegaly. 10. Moderate three-vessel calcified coronary artery disease and mild aortic valve calcification. 11. Right IJ central venous catheter in place terminating in the low SVC. 12. Small soft tissue stranding in the right supraclavicular neck which could be blood products. 13. Endotracheal tube terminates above the mili. Repeat CT of chest / abdomen and pelvis revealed: IMPRESSION: 1. Moderate intermediate density right perinephric fluid extending into the bilateral extrarenal pelvis and also to a lesser extent in the peritoneal cavity, which could reflect retroperitoneal hematoma. Evaluation for active bleeding limited on this examination. 2. Moderate partially loculated right pleural effusion with a right thoracostomy tube terminating in the anterior medial right upper lobe. 3. Development of a small amount of air in the right pleural space at the level of the right middle lobe concordant with pneumothorax. 4. Bilateral renal calculi with a staghorn appearing calculus on the left. 5. Dependent consolidations of the [id number]-left lower lobes which could reflect atelectasis and/or pneumonia (which can be on the basis of aspiration. 6. Mild cardiomegaly, mild aortic valve calcifications and moderate coronary artery calcifications. Mild Interstitial pulmonary edema. CT of the head revealed: IMPRESSION: 1. No acute intracranial abnormality. 2. Generalized cerebral volume loss and mild chronic microvascular ischemic change. 3. Partially imaged endotracheal tube. Chest ultrasound revealed: Findings/Impression: There is a trace bilateral pleural effusion. Thoracentesis: FINDINGS: Moderate size, complex and septated right pleural effusion. Aspirated fluid is thick and green in consistency. IMPRESSION: Right thoracentesis with 250 mL removed for laboratory analysis. EKG in [facility] revealed sinus tachycardia, poor R-wave progression old inferior wall AZ. later EKG revealed atrial fibrillation with RVR. Repeat EKGs questioned STEMI. but resolved later. Telemetry reveals sinus rhythm, occasions of A-fib with RVR, SVT Echocardiogram revealed: Technically limited study secondary to poor acoustic windows. Left ventricle: Left ventricle was normal-sized. Mild concentric left ventricular hypertrophy was seen. LVEF was 55-60%. No gross wall motion abnormality was observed, but its presence can not be ruled out on the basis of this study. Right ventricle is mildly dilated with normal systolic function. Left atrium was mildly dilated. Right atrium was normal-sized. Aortic valve was trileaflet. There was no aortic insufficiency. There was aortic sclerosis with no stenosis. There was trivial mitral/tricuspid regurgitation. Pulmonary valve was not well visualized. Right ventricular systolic pressure was assessed around 48 mm Hg. There was no pericardial effusion. Left heart cath revealed: One-vessel coronary artery disease, PRESS OFFICER of mid LAD, Attempted to open up the LAD PRESS OFFICER, partially/minimally successful (status post balloon angioplasty). LVEF of 25% (dilated LV). Cardiac suggestion for management: Dual antiplatelet therapy (loaded with aspirin and Plavix). Guideline directed medical therapy for systolic heart failure Repeat echo revealed: Technically limited study secondary to poor acoustic windows. Left ventricle: Concentric left ventricular hypertrophy was seen anteroapical hypokinesia was seen. The LVEF was around 40%. Right ventricular was normal sized with normal systolic function. Atria were not well-visualized. Aortic valve: Aortic valve was not well visualized. There was no aortic stenosis/insufficiency. Mild mitral/tricuspid regurgitation was observed. Pulmonary valve was not well visualized. Right ventricular systolic pressure was assessed around 35 mm Hg. There was no pericardial effusion. Patient is a 68-year-old morbidly obese patient who presented with respiratory failure to the hospital. Presentation is in favor of sepsis/septic shock. Multiorgan failure is observed. She is intubated and on vent support. She is on multiple pressor support. Life findings are in favor of acute renal failure. She also is known to have nephrolithiasis with history of staghorn calculi. Cardiac-ceballos, the patient did have episode of atrial fibrillation with RVR. She is found to have increased troponin. Presentation questions non-STEMI and possibly type 2 ischemia. Recognizing the presentation, ischemic workup should be postponed after clinical stability (only if patient recovers higher brain function). Is being followed by Nephrology. Had episodes of tachyarrhythmia. Loaded with Digoxin. Positive cultures. Repeated a-fib with RVR. Was evaluated by Interventional Cardiology button puncher for STEMI (not considered STEMI). As there was repeated EKG changes in favor of STEMI, patient was taken to cath lab manager: Was found to have PRESS OFFICER of mid LAD (considered old) with full of thrombus. s/p balloon angioplasty with minimal / partial result. s/p repeat right thoracotomy and right lung decortication and chest tube placement. Septic shock Multiorgan failure Acute respiratory failure on vent support Acute renal failure Nephrolithiasis Staghorn calculi Hydronephrosis Abnormal troponin, non-STEMI Atrial fibrillation with RVR Paroxysmal AFib Acute heart failure, diastolic Hepatosplenomegaly Pleural effusion Status post thoracentesis Morbid obesity s/p Cardioversion for A-fib with RVR s/p thoracoscopy and chest tube placement CAD: PRESS OFFICER of mid LAD (considered old) with full of thrombus. s/p balloon angioplasty with minimal / partial result s/p tracheostomy s/p repeat thoracotomy and right lung decortication Cardiac suggestion for management: Manage in ICU Follow-up electrolytes and kidney function tests and correct abnormalities Pressure support to keep mean arterial pressure above 65 Amiodarone oral/N mg HS Daily aspirin (81 mg daily) s/p thoracoscopy and chest tube placement s/p repeat thoracotomy, right lung decortication and chest tube placement. s/p tracheostomy IV metoprolol PRN for a-fib with RVR episodes. Sepsis workup and management as per primary team Evaluation and management of respiratory failure as per primary team/Pulmonary Evaluation and management of nephrolithiasis/hydronephrosis as per primary/Urology Evaluation and management of acute renal failure as per Nephrology Further evaluation and management as per above and clinical course. A total of 75 minutes was spent reviewing the patient record, examining the patient, making a diagnostic and therapeutic plan, discussing this plan with medical personnel, following up on diagnostic studies and following the patient for clinical stability excluding any and all procedures. At least 50% of this time was spent in direct, [id number] contact. Thank you for allowing me to participate in this patient's care. Further recommendations will depend on patient's clinical course. Please do not hesitate to contact me if you have any questions or concerns. This medical document was created using electronic medical record system with [employer] computerized dictation system. Although this document has been carefully reviewed, there may still be some phonetic and typographical errors. These areas are purely typographical due to the imperfection of the software programs, and do not reflect any compromise in the patient's medical care. Dietary Evaluation Review Comments: 1) If GI is accessible consider Nepro 1.8 @ 30 ml/hr goal rate as tolerated with current rate of propofol on board. 2) If pt remains NPO >7 days consider TPN to meet at least 75% of estimated needs 3) If pt continues to receive HD, advance pt diet when medically feasible to a Renal Standard diet modified per SECURITY RISK ANALYST recommendations 4) If HD is discontinued and GFR is within normal range, advance pt diet to a Regular diet, modified per SECURITY RISK ANALYST recommendations 5)If HD is discontinued and GFR lies within STG 1-4, advance pt diet to a Renal Specific K2,lowphos,HECTOR,2gmNa,80gPro diet 6) If HD is discontinued and if GFR returns to normal levels then ALEXANDRA 1 pkt BID with meals may be considered to aid with wound healing 7) Continue current plan of care Expected Outcomes/Goals: 1) Pt to receive nutrition support within 7 days of NPO status 2) Pt labs to improve 3) Pt diet to advance 4) F/U in 2-3 days Plan discussed with: Other (nurse) Dietary Evaluation Review Comments: 1) If GI is accessible consider Nepro 1.8 @ 30 ml/hr goal rate as tolerated with current rate of propofol on board. 2) If pt remains NPO >7 days consider TPN to meet at least 75% of estimated needs 3) If pt continues to receive HD, advance pt diet when medically feasible to a Renal Standard diet modified per SECURITY RISK ANALYST recommendations 4) If HD is discontinued and GFR is within normal range, advance pt diet to a Regular diet, modified per SECURITY RISK ANALYST recommendations 5)If HD is discontinued and GFR lies within STG 1-4, advance pt diet to a Renal Specific K2,lowphos,HECTOR,2gmNa,80gPro diet 6) If HD is discontinued and if GFR returns to normal levels then ALEXANDRA 1 pkt BID with meals may be considered to aid with wound healing 7) Continue current plan of care Expected Outcomes/Goals: 1) Pt to receive nutrition support within 7 days of NPO status 2) Pt labs to improve 3) Pt diet to advance 4) F/U in 2-3 days Plan discussed with: Other (Primary RN) DOMINIQUE LEE May 03, 2024 05:13
--- NOTE | 2024-05-03 05:38 | DVH ---
CHEST RADIOGRAPH Indication:on vent Technique: Single frontal view of the chest was obtained Comparison: XY CHEST XRAY 1 VIEW on DOS: 05/02/24, XY CHEST XRAY 1 VIEW on DOS: 05/01/24, XY CHEST XRA Y 1 VIEW on DOS: 04/30/24, XY CHEST PORTABLE on DOS: 04/29/24, XY CHEST PORTABLE on DOS: 04/29/24, XY CHEST XRAY 1 VIEW on DOS: 05/02/24 FINDINGS: Lines and Tubes: Tracheostomy, right PICC and right chest tube in satisfactory position. Lungs: Multifocal airspace disease. Pleura: No effusion. No pneumothorax. Cardiomediastinal contours: Unremarkable Bones: Unremarkable IMPRESSION: Lines and tubes in satisfactory position. No significant interval change.
[2024-05-03] MEDS: ENOXAPARIN SOD 40 MG/0.4 ML SYRINGE SC SCH (10:27)
[2024-05-03] MEDS: FUROSEMIDE 20 MG/2 ML VIAL IV ONE (10:29)
--- NOTE | 2024-05-03 13:42 | DVHPNRES ---
Progress Note Date Seen: May 03, 2024 Resident Creating Document: JUAN VAZQUEZ RESIDENT Has the PT tested + for MRSA If YES, has PT been informed?: No Medical Necessity Reason Pt with a Central, PICC or Fol: Yes The following are medically ne: Central Line, Whipple Catheter Reason for whipple catheter: Strict I&O Subjective Review of Systems HPI: 68/female, past medical history: Unknown Patient is 68-year-old female who was brought to the hospital from [facility] for higher level of care. Patient was initially treated facility for shortness of breath and was transferred to our hospital. During initial ED evaluation patient found to be tachypneic with severe respiratory failure, atrial fibrillation. Initially patient required oxygenation via non- rebreather mask however patient intubated to protect airway. Patient started on IV antibiotic, requiring vasopressor and amiodarone drip initially. With further evaluation chest ultrasound showed bilateral pleural effusion, CT scan of chest and abdomen was performed which showed partially loculated right pleural effusion and consolidation in right middle and lower lobe. Patient also found to have right hydronephrosis with 1.9 cm calculus into right UPJ. Radiologist performed right-sided thoracentesis which removed 250 mL of fluid. L patient was placed with right-sided chest tube for loculated empyema. Patient underwent right thoracoscopy with evacuation empyema with insertion of chest tube. Patient was extubated on April 16/2024. Patient was reintubated back given possible STEMI and transferred to left heart catheterization. Overhead Worker did angioplasty for complete total occlusion of mid LAD. Started on heparin drip, aspirin and Plavix. Patient continued to have x-ray findings with right lower lobe opacity. Continued on antibiotic. Continued require vasopressors, chest type continued to drain. No air leak. ROS: Not obtained as patient is intubated Today patient was seen and examined at bedside. patient underwent trach colar trail with t piece. No new complaints. Patent and draining chest tube. Continuous similar ventilator setting. Not on any pressor. Plan to continue drip collar trial as toleration. Objective vital signs Vital Sign Date Time Temp Pulse Resp B/P (MAP) Pulse Ox O2 Delivery O2 Flow Rate FiO2 05/03/24 12:15 30 05/03/24 10:30 94 30 95 05/03/24 10:29 99/49 05/03/24 08:30 Mechanical Ventilator+ 05/03/24 06:00 0 05/03/24 04:00 97.9 97.9 Total Intake and Output 05/02/24 05/02/24 05/03/24 15:00 23:00 07:00 Intake Total 300 ml 320 ml 920 ml Output Total 265 ml 225 ml Balance 300 ml 55 ml 695 ml medications Current Medications Medications Dose Ordered Sig/Destini Route Start Time Stop Time Status Last Admin Dose Admin Heparin Sodium/ Dextrose 250 ml @ 18 mls/hr [id number] IV 03/31/24 23:45 UNV Midazolam HCl 50 ml @ 1 mls/hr Q24H IV 04/01/24 01:30 05/01/24 03:42 5 MLS/HR Albumin Human 100 ml @ 100 mls/hr KIRAN PRN IV 04/03/24 07:00 Sodium Chloride 10 ml QSHIFT@10,22 IV 04/09/24 22:00 05/03/24 10:29 10 ML Iron Sucrose 110 ml @ 110 mls/hr DAILY@1200 IV 04/10/24 12:00 Hold 04/19/24 13:25 110 MLS/HR Amiodarone HCl 200 mg Q12HR PO 04/10/24 22:00 UNV Albuterol 2.5 mg Q4HR NEB 04/16/24 18:00 05/03/24 10:11 2.5 MG Ipratropium [place] 0.5 mg Q4HR NEB 04/16/24 18:00 05/03/24 10:11 0.5 MG Budesonide 0.5 mg BID NEB 04/16/24 22:00 05/03/24 10:11 0.5 MG Fentanyl Citrate 250 ml @ 2.5 mls/hr Q24H IV 04/20/24 22:30 04/30/24 17:29 20 MLS/HR Aspirin 81 mg DAILY PO 04/22/24 10:00 05/03/24 10:28 81 MG Piperacillin Sod/ Tazobactam Sod 100 ml @ 25 mls/hr Q8H IV 04/22/24 00:00 05/03/24 08:31 25 MLS/HR Pantoprazole Sodium 40 mg DAILY IV 04/22/24 10:00 05/03/24 10:27 40 MG Norepinephrine Bitartrate 250 ml @ 1.875 mls/ hr Q24H IV 04/28/24 18:45 05/01/24 00:34 5.7 MLS/HR Purified Water 200 ml TID GT 05/01/24 14:00 05/03/24 05:35 200 ML Amiodarone HCl 200 mg HS PO 05/02/24 22:00 05/02/24 21:44 200 MG Enteral Nutritional Formula 1,000 ml 60ML/HR GT 05/02/24 12:45 05/02/24 12:59 1,000 ML Enoxaparin Sodium 40 mg DAILY SC 05/03/24 10:00 05/03/24 10:27 40 MG Examination General: Patient is of sedated, alert and oriented. HEENT: Normocephalic, atraumatic, moist mucous membranes Respiratory/pulmonary: Presence of two chest tube with connection to drainage. No air leak. Cardiovascular: Sinus rhythm, no murmur, no elevation of JVD. Abdomen: Abdomen slightly distended, there is no pain to palpation in any of the abdominal quadrants, no palpable masses. Extremities: There is minimal swelling in the lower extremities bilaterally. Peripheral Pulses: 3+ Radial (R). 3+ Radial (L). 3+ Dorsalis pedis (R). 3+ Dorsalis pedis(L) Skin: There is dry skin in bilateral lower extremities with scales and excoriations. Neurological: Cranial now intake. laboratory and microbiology Laboratory Tests 05/03/24 03:10 Test 05/03/24 03:10 Range/Units Serum Glucose 90 74-106 mg/dL Microbiology Date/Time Source Procedure Growth Status 05/02/24 14:00 Stool Stool Culture - Preliminary Resulted 05/02/24 14:00 Stool Shiga Toxin I & II - Final Resulted 04/29/24 08:17 Pleural Fluid Gram Stain - Final Resulted 04/29/24 08:17 Pleural Fluid Anaerobic Culture - Preliminary Resulted 04/29/24 08:17 Pleural Fluid Aerobic Culture - Preliminary Resulted 04/22/24 18:03 Urine - [place] Urine Culture - Final Yeast, not Arlet albicans Complete 04/22/24 15:16 Blood Blood Culture - Final NO GROWTH AFTER 5 DAYS OF INCUBATION. Complete 04/18/24 15:02 Sputum Gram Stain - Final Complete 04/18/24 15:02 Respiratory Culture - Final Yeast, not Arlet albicans Complete 04/01/24 11:19 Nose MRSA Screen - Final Complete Problem List/Assessment/Plan Problem List/Assessment/Plan Neurology Off sedation. Respiratory Acute hypoxic respirtory failure likel due to right-sided pleural effusion/empyema and consolidation on right middle and lower lobe -on mechanical ventilation: Respiratory rate 16, tidal volume 500, FiO2 30%, peep 5 cm H2O -presence of two chest tube: Minimal drainage, no air leak. -chest x-ray on 04/22/2022: Right-sided pleural effusion, right lower lobe opacification. -IV antibiotic with Zosyn -CT of the chest and abdomen showed moderate partial loculated right pleural effusion and consolidation on right middle/lower lobes. Mild cardiomegaly and interstitial pulmonary edema. It also showed right hydronephrosis with 1.9 cm calculus into the right UPJ. There is also a 2.6 cm staghorn appearing calculus causing mid to lower pole left hydronephrosis. -Respiratory culture: Yeast, not Arlet on 04/17/2024. Repeat culture pending. -CT chest(04/22/24):1. Moderate intermediate density right perinephric fluid extending into the bilateral extrarenal pelvis and also to a lesser extent in the peritoneal cavity, which could reflect retroperitoneal hematoma. Evaluation for active bleeding limited on this examination. 2. Moderate partially loculated right pleural effusion with a right thoracostomy tube terminating in the anterior medial right upper lobe. 3. Development of a small amount of air in the right pleural space at the level of the right middle lobe concordant with pneumothorax. 4. Bilateral renal calculi with a staghorn appearing calculus on the left. 5. Dependent consolidations of the otmwi-btjvumo-yrhp-left lower lobes which could reflect atelectasis and/or pneumonia (which can be on the basis of aspiration. 6. Mild cardiomegaly, mild aortic valve calcifications and moderate coronary artery calcifications. Mild Interstitial pulmonary edema. -Underwent tracheostomy (04/23/24) -Surgical(04/29/24): Right thoracotomy, evacuation of right empyema. Irrigation and drainage of right chest cavity. -underwent trach collar trial as well. Continued tomorrow as well. Septic shock in the setting of loculated right-sided pleural effusion and pneumonia -continue management of acute respiratory failure likely due to empyema. -Off vasopressor - continue zosyn -Respiratory culture positive for yeast on 04/17/2024.: DC micafungin. S/P Tracheostomy (04/23/24) Cardiology Acute on chronic systolic/diastolic heart failure -echocardiogram is showing an LVEF of 55-60% with increased RVSP at 48 mmHg and no pericardial effusion -Continue monitor I/O -repeat x ray In AM NSTEMI type II likely due to above -continue current management. 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 s/p balloon angioplasty with minimal / partial result -Aspirin Atrial fibrilation with RVR: Rate controlled -continue amiodarone 200 mg p.o. b.i.d. -Cardiology on board -Not on anticoagulation Nephrology Hypernatremia :Improved -repeat sodium level in a.m. -Free water :200ml GT TID Bilateral hydronephrosis with left-sided staghorn calculi and right UVJ calculi -CT scan of the chest and abdomen showed right hydronephrosis with 1.9 cm calculus into the right UPJ, there was also a 2.6 cm staghorn appearing calculus causing mid to lower pole left hydronephrosis. -nephrology on board -drainage with Whipple catheter. -continue I/O monitoring CHRISTOPH due to VMN initially likely in setting of septic shock: Resolved -most likely secondary to bilateral renal calculi -nephrology and urology on board -monitor kidney function Hypokalemia -replenish Hematogy Normocytic anemia:Stable -2 Unit of PRBCS given Nutrition Nepro 20 mL/hour via G-tube., target 30 ml/hr Lines: Right upper arm PICC line: Placed on 04/09/2024 PUD prophylaxis: Protonix DVT prophylaxis: Lovenox Goals of care discussed with the daughter and brother at bedside for >31min by Dr. Perez previously Critical time spent > 62 min Plan discussed with Dr Corrigan Plan discussed with: Patient, Other (RN) My Orders My Orders Orders - JUAN VAZQUEZ RESIDENT Procedure Category Date Status Time Stool Bacterial TRESSA 05/02/24 In Process Culture 14:19 Enoxaparin Sodium PHA 05/03/24 In Process (Lovenox) 10:00 Chest Xray 1 View XY 05/03/24 Resulted 04:00 Abg W/ Co-Ox RT 11/2/24 Logged 04:00 Trach Collar Trial RT 05/02/24 Transmitted 16:04 Dietary Evaluation Review Comments: 1) If GI is accessible consider Nepro 1.8 @ 30 ml/hr goal rate as tolerated with current rate of propofol on board. 2) If pt remains NPO >7 days consider TPN to meet at least 75% of estimated needs 3) If pt continues to receive HD, advance pt diet when medically feasible to a Renal Standard diet modified per FRONT END DRIVER recommendations 4) If HD is discontinued and GFR is within normal range, advance pt diet to a Regular diet, modified per FRONT END DRIVER recommendations 5)If HD is discontinued and GFR lies within STG 1-4, advance pt diet to a Renal Specific K2,lowphos,HECTOR,2gmNa,80gPro diet 6) If HD is discontinued and if GFR returns to normal levels then ALEXANDRA 1 pkt BID with meals may be considered to aid with wound healing 7) Continue current plan of care Expected Outcomes/Goals: 1) Pt to receive nutrition support within 7 days of NPO status 2) Pt labs to improve 3) Pt diet to advance 4) F/U in 2-3 days JUAN VAZQUEZ RESIDENT May 03, 2024 13:42 JER CORRIGAN MD May 03, 2024 17:47
[2024-05-04] VITALS (58 sets, daily range): BP systolic 101–153; BP diastolic 49–101; PULSE 84–109; RESP 17–38; TEMP 97.9–99.1; O2SAT 93–100
[2024-05-04 04:10] LABS: Basophils # (auto) 0 10 ^3/uL (0-0.2); Basophils % (auto) 0.2 % (0.0-2.0); Eosinophils # (auto) 0.3 10 ^3/uL (0-0.8); Eosinophils % (auto) 2.5 % (0.0-7.0); Hematocrit 28.7 % (36.0-46.0); Hemoglobin 9.1 g/dL (12.2-16.2); Lymphocytes # (auto) 0.8 10 ^3/uL (0.4-5.4); Lymphocytes % (auto) 6.8 % (10.0-50.0); Mean Corpuscular Hgb Conc. 31.8 g/dL (32.0-36.0); Mean Corpuscular Volume 94.4 fL (80.0-100.0); Monocytes # (auto) 0.4 10 ^3/uL (0-1.3); Monocytes % (auto) 3.5 % (0.0-12.0); Neutrophils # (auto) 10.4 10 ^3/uL (1.6-8.6); Platelet Count (auto) 157 10^3/uL (140-450); Red Blood Cells 3.04 10^6/uL (4.0-5.20); White Blood Cell 11.9 10^3/uL (4.4-10.8)
[2024-05-04 04:15] LABS: Red Cell Distribution Width 26.4 % (11.8-14.3)
[2024-05-04 04:28] LABS: Chloride 112 mmol/L (98-107); Potassium 3.3 mmol/L (3.5-5.1); Sodium 143 mmol/L (136-145)
[2024-05-04 04:29] LABS: Anion Gap 10 (5-15); Carbon Dioxide 21 mmol/L (20-31)
[2024-05-04 04:30] LABS: Calcium 8.1 mg/dL (8.7-10.4)
[2024-05-04 04:34] LABS: BUN/Creatinine Ratio 20.4 (10.0-20.0); Blood Urea Nitrogen 19 mg/dL (9-23); Glucose 97 mg/dL (74-106)
--- NOTE | 2024-05-04 05:01 | DVHPN2 ---
Progress Note - Dictate Date Seen: May 04, 2024 Has the PT tested + for MRSA If YES, has PT been informed?: No Medical Necessity Reason Pt with a Central, PICC or Fol: Yes The following are medically ne: Central Line, Whipple Catheter Reason for whipple catheter: Strict I&O Subjective Patient seen and examined at the bedside within the ICU. Chart reviewed. vital signs Vital Sign Date Time Temp Pulse Resp B/P (MAP) Pulse Ox O2 Delivery O2 Flow Rate FiO2 05/04/24 04:15 88 17 114/66 (82) 99 05/04/24 04:02 30 05/04/24 04:00 98.4 98.4 05/04/24 04:00 Mechanical Ventilator+ 05/03/24 20:00 8 Total Intake and Output 05/03/24 05/03/24 05/04/24 15:00 23:00 07:00 Intake Total 100 ml 520 ml 105.0 ml Output Total 1215 ml Balance 100 ml -695 ml 105.0 ml medications Current Medications Medications Dose Ordered Sig/Destini Route Start Time Stop Time Status Last Admin Dose Admin Heparin Sodium/ Dextrose 250 ml @ 18 mls/hr [id number] IV 03/31/24 23:45 UNV Midazolam HCl 50 ml @ 1 mls/hr Q24H IV 04/01/24 01:30 05/01/24 03:42 5 MLS/HR Albumin Human 100 ml @ 100 mls/hr KIRAN PRN IV 04/03/24 07:00 Sodium Chloride 10 ml QSHIFT@10,22 IV 04/09/24 22:00 05/03/24 22:00 10 ML Iron Sucrose 110 ml @ 110 mls/hr DAILY@1200 IV 04/10/24 12:00 Hold 04/19/24 13:25 110 MLS/HR Amiodarone HCl 200 mg Q12HR PO 04/10/24 22:00 UNV Albuterol 2.5 mg Q4HR NEB 04/16/24 18:00 05/04/24 01:52 2.5 MG Ipratropium [place] 0.5 mg Q4HR NEB 04/16/24 18:00 05/04/24 01:52 0.5 MG Budesonide 0.5 mg BID NEB 04/16/24 22:00 05/03/24 22:03 0.5 MG Fentanyl Citrate 250 ml @ 2.5 mls/hr Q24H IV 04/20/24 22:30 05/04/24 01:11 2.5 MLS/HR Aspirin 81 mg DAILY PO 04/22/24 10:00 05/03/24 10:28 81 MG Piperacillin Sod/ Tazobactam Sod 100 ml @ 25 mls/hr Q8H IV 04/22/24 00:00 05/03/24 23:30 25 MLS/HR Pantoprazole Sodium 40 mg DAILY IV 04/22/24 10:00 05/03/24 10:27 40 MG Norepinephrine Bitartrate 250 ml @ 1.875 mls/ hr Q24H IV 04/28/24 18:45 05/01/24 00:34 5.7 MLS/HR Purified Water 200 ml TID GT 05/01/24 14:00 05/03/24 22:00 200 ML Amiodarone HCl 200 mg HS PO 05/02/24 22:00 05/03/24 22:00 200 MG Enteral Nutritional Formula 1,000 ml 60ML/HR GT 05/02/24 12:45 05/02/24 12:59 1,000 ML Enoxaparin Sodium 40 mg DAILY SC 05/03/24 10:00 05/03/24 10:27 40 MG laboratory and microbiology Laboratory Tests 05/04/24 03:23 Test 05/04/24 03:23 Range/Units Serum Glucose 97 74-106 mg/dL Assessment/Plan Assessment/Plan Off Levophed Days ago: There was question about EKG showing STEMI. Patient was intubated again by primary team and taken to [facility]. s/p Cardiac cath (on 04/17/2024) Was found to have DIRECTOR REVENUE of mid LAD (considered old) with full of thrombus. s/p balloon angioplasty with minimal / partial result s/p thoracoscopy and chest tube placement Patient is a 68-year-old female who was transferred from [facility]. She originally presented to [facility] for shortness of breath ongoing for few days. She is intubated and is being managed in ICU. Information was obtained by reviewing the chart and communicating with staff. Reportedly, she presented with respiratory failure to [facility] (oxygen saturation was 88%) and over there was found to have white blood cell count of 26.6, hemoglobin of 11.1, creatinine of 5.6, potassium of 5.6 and troponin of 1.01. She was given 365 mg of aspirin in [facility]. She did have an episode of atrial fibrillation with RVR with questionable ST changes and was transferred to our facility for further care. She was also found to have right pleural effusion in [facility] and was diagnosed with non-STEMI. s/p tracheostomy, on vent support. Obese. Mucosa is pale. Scattered rhonchi in the lungs is heard. Cardiac: Regular, no thrill/gallop. Abdomen is soft with increased bowel sounds. There is no gross mass. Extremities reveal 1+ edema bilaterally. Available past medical history includes obesity and questionable history of psoriasis. WBC: 25.3 - 23.7 - 20.2 - 20.5 - 17.6 - 18.4 - 19.2 - 19.4 - 22.2 - 16.4 - 16.1 - 19.5 - 14.7 - 12.3 - 9.8 - 10.0 - 8.3 - 9.2 - 10.2 - 11.4 - 10.3 - 12.0 - 13.8 - 16.3 - 18.0 - 18.2 - 16.6 - 15.6 - 11.7 - 9.8 - 9.1 - 11.4 - 12.3 - 15.7 - 15.3 - 14.7 - 11.1 - 11.0 - 11.9 Hemoglobin: 10.8 - 9.1 - 8.5 - 8.4 - 8.8 - 8.6 - 8.9 - 8.1 - 8.4 - 8.1 - 8.1 - 8.2 - 8.0 - 7.4 - 7.4 - 7.7 - 7.1 - 8.0 - 7.5 - 8.8 - 7.1 - 9.0 - 8.9 - 9.0 - 8.4 - 8.4 - 8.4 - 8.1 - 8.2 - 8.0 - 8.0 - 8.0 - 7.8 - 7.1 - 10.8 - 9.0 - 8.8 - 8.5 - 9.2 - 9.1 D-dimer: 3.62 Creatinine: 5.67 - 5.78 - 5.41 - 4.92 - 4.55 - 4.68 - 4.71 - 4.64 - 4.48 - 3.83 - 3.66 - 3.65 - 3.25 - 2.82 - 2.41 - 2.34 - 2.01 - 1.90 - 1.60 - 1.83 - 1.73 - 1.74 - 1.76 - 1.78 - 1.82 - 1.94 - 1.99 - 1.93 - 1.95 - 2.39- 2.09 - 1.81 - 1.54 - 1.41 - 1.32 - 1.31 - 1.17 - 1.09 - 0.97 - 0.94 - 0.93 Potassium: 6.0 - 6.3 - 6.1 - 6.0 - 5.3 - 5.0 - 4.9 - 4.8 - 5.1 - 5.4 - 4.9 - 5.3 - 4.8 - 4.5 - 4.7 - 4.3 - 4.2 - 3.9 - 4.6 - 3.8 - 3.5 - 3.3 - 3.6 - 3.6 - 4.0 - 3.5 - 4.0 - 3.7 - 3.6 - 3.5 - 3.4 - 4.0 - 3.9 - 3.0 - 3.4 - 3.3 - 3.6 - 3.3 - 3.0 - 4.0 - 3.5 - 3.3 - 3.1 - 3.5 - 3.3 Lactic acid: 3.3 - 3.4 - 2.3 - 2.5 - 2.5 - 2.7 - 2.4 - 2.5 - 3.1 - 2.3 - 1.7 - 1.7 TSH: 1.71 BNP: 274.69 - 1944.81 - 373.79 Troponin (high sensitive): 3156 - 6588 - 7925 - 2288 - 411 - 3357 Blood culture: positive Pleural fluid culture: E-coli Digoxin level: 2.09 Stool OB: positive Chest x-ray revealed: IMPRESSION: 1. Moderate right pleural effusion. 2. Cardiomegaly with mild pulmonary vascular congestion bilaterally. Repeat chest x-ray revealed: IMPRESSION: 1. Endotracheal tube and gastric tubes in place as described. 2. Right IJ central venous catheter projects over the lower SVC. 3. Mild cardiomegaly and prominence of the pulmonary vasculature. 4. Moderate to large right pleural effusion. Repeat chest x-ray revealed: IMPRESSION: Similar lung aeration with large right pleural effusion. No pneumothorax seen. Stable lines and tubes. Repeat chest x-ray revealed: IMPRESSION: Similar lung aeration with large right pleural effusion. No pneumothorax seen. Stable lines and tubes. Repeat chest xry revealed: Lines and tubes: ET in the mid thoracic trachea. NG crosses midline. Right CVC is stable. Left HD catheter projects over the mediastinum. Cardiomediastinal silhouette: Enlarged Pulmonary vasculature: prominent Lung expansion: low Lung airspace: patchy bilateral airspace opacity. Lung interstitium: normal Pleura: Similar large right effusion. Pneumothorax: no Bones: Unremarkable Other: no IMPRESSION: Lines and tubes, as above. Similar lung aeration bilaterally with a right pleural effusion and patchy airspace opacities. Repeat chest xry revealed: IMPRESSION: 1. Stable position of the support lines and tubes. 2. Interstitial and alveolar opacities. Repeat chest xry revealed: IMPRESSION: Unchanged multifocal airspace disease. Small to moderate right pleural effusion ; possibly loculated. Repeat chest xry revealed: IMPRESSION: Lines and tubes in satisfactory position. No significant interval change. Repeat chest xry revealed: IMPRESSION: 1. Support lines and tubes in appropriate position. 2. Pulmonary vascular congestion. 3. Bilateral pleural effusions, right greater than left. Repeat chest xry revealed: IMPRESSION: 1. Support lines and tubes in appropriate position. 2. Pulmonary vascular congestion. 3. Bilateral pleural effusions, right greater than left. Repeat chest xry revealed: IMPRESSION: Interval placement of right chest tube which projects deep into the right hilar region. Repeat chest xry revealed: IMPRESSION: No interval change Repeat chest xry revealed: Findings/IMPRESSION: Right IJ CVC terminating in the SVC. Endotracheal tube projected 5 cm superior to the mili. Enteric tube projected below the GE junction. Right-sided PICC projects terminating near the cavoatrial junction. Small bilateral pleural effusions and/or atelectasis with superimposed infection not excluded. Repeat chest xry revealed: MPRESSION: 1. Bilateral pleural effusions and airspace disease right greater than left. Repeat chest xry revealed: IMPRESSION: 1. Endotracheal tube terminates 6.0 cm above the mili, previously 3.1 cm above the mili. Otherwise, No significant interval change. Repeat chest xry revealed: IMPRESSION: 1. Endotracheal tube terminates 6.0 cm above the mili, previously 3.1 cm above the mili. Otherwise, No significant interval change. Repeat chest xry revealed: IMPRESSION: Lines and tubes in satisfactory position. No significant interval change. Repeat chest xry revealed: IMPRESSION: Lines and tubes in satisfactory position. No significant interval change. Repeat chest xry revealed: IMPRESSION: Lines and tubes in satisfactory position. No significant interval change. Repeat chest xry revealed: IMPRESSION: Lines and tubes in satisfactory position. No significant interval change. Repeat chest xry revealed: IMPRESSION: Endotracheal tube projects in appropriate position. Otherwise no significant change Repeat chest xry revealed: FINDINGS: Lines and Tubes: Right PICC and enteric catheter and right chest tube in satisfactory position. Endotracheal tube projects 3.8 cm above the level of the mili. Lungs: Bibasilar opacities. Pleura: Possible small right pleural effusion. No pneumothorax. Cardiomediastinal contours: Unremarkable Bones: Unremarkable IMPRESSION: No significant change compared to prior exam. Repeat chest xry revealed: IMPRESSION: Lines and tubes in satisfactory position. No significant interval change. Repeat chest xry revealed: IMPRESSION: 1. Bibasilar opacities representing pleural effusions and airspace disease similar to prior study. 2. Satisfactory position of the support lines and tubes. Repeat chest xry revealed: IMPRESSION: 1. Stable appearance of the chest. Unchanged position of the support lines and tubes. Repeat chest xry revealed: Lines and Tubes: - Tracheostomy in satisfactory position - Enteric catheter in satisfactory position - Right PICC (Peripherally Inserted Central Catheter) in satisfactory position - Right chest tube in satisfactory position Lungs: - Diffuse pulmonary vascular congestion Pleura: - Possible small bilateral pleural effusions Cardiomediastinal contours: - Unremarkable Bones: Unremarkable IMPRESSION: Tracheostomy in satisfactory position. No other significant interval change. Repeat chest xry revealed: IMPRESSION: 1. Stable pulmonary congestion, patchy right mid to lower lung zone opacities. 2. Stable position of the support lines and tubes. Repeat chest xry revealed: IMPRESSION: Lines and tubes in satisfactory position. No significant interval change. Repeat chest xry revealed: IMPRESSION: Lines and tubes in satisfactory position. No significant interval change. Repeat chest xry revealed: IMPRESSION: Examination is markedly limited by patient positioning. Tracheostomy tube tip appears at the thoracic inlet likely within the trachea. There is a right chest tube right PICC line with tip at the superior vena cava. Bilateral effusions and moderate pulmonary vascular congestion as well as cardiomegaly. No pneumothorax. Repeat chest xry revealed: IMPRESSION: 1. Stable position of the support lines and tubes. 2. Bibasilar opacities similar to prior study. Repeat chest xry revealed: IMPRESSION: 1. Support lines and tubes similar to the prior exam. 2. No significant change in bilateral airspace disease. Repeat chest xry revealed: IMPRESSION: 1. No significant change in position of the support lines and tubes. 2. Slightly improved aeration in the right lung. Repeat chest xry revealed: IMPRESSION: Increased congestion. No other significant interval change. Repeat chest xry revealed: IMPRESSION: Lines and tubes in satisfactory position. No significant interval change. Repeat chest xry revealed: IMPRESSION: Lines and tubes in satisfactory position. No significant interval change. Repeat chest xry revealed: IMPRESSION: Lines and tubes in satisfactory position. No significant interval change. Repeat chest xry revealed: IMPRESSION: Lines and tubes in satisfactory position. No significant interval change. Renal ultrasound revealed: IMPRESSION: 1. Right kidney measures 13.4 cm. Decreased cortical thickness on the right. 2. Left kidney measures 10.2 cm. 3. No hydronephrosis on the right grade 1 hydronephrosis on the left. 4. Bilateral renal calculi. CT scan of the chest/abdomen and pelvis revealed: IMPRESSION: 1. Moderate partially loculated right pleural effusion and consolidations in the right middle and lower lobes which could be pneumonia and/or atelectasis. 2. Mild cardiomegaly, mild interstitial pulmonary edema, and body wall edema. 3. There is a 1.9 cm calculus in the right UPJ with mild right hydronephrosis 4. There is a 2.6 cm somewhat staghorn appearing calculus in the left renal pelvis and UPJ causing mild predominantly mid to lower pole left hydronephrosis. Mild soft tissue stranding about the left renal pelvis which could be due to obstruction or superimposed infection. Correlate with urinalysis. 5. Partial duplication of the left renal collecting system without hydronephrosis in the upper pole. 6. Moderate right perinephric, right retroperitoneal, and bilateral extraperitoneal pelvis low-density fluid and very mild left retroperitoneal low-density fluid. This could be fluid related to bilateral renal obstructions and forniceal ruptures versus evolved retroperitoneal hematoma. This is suboptimally evaluated without intravenous contrast. 7. Fluid-filled small and large bowel loops which may be physiologic or related to enterocolitis and could be manifesting as loose stools and/or diarrhea. 8. Prominent endometrium measuring at least 2.8 cm, suboptimally evaluated by CT. Recommend characterization with nonemergent pelvic ultrasound if clinically indicated. 9. Mild hepatosplenomegaly. 10. Moderate three-vessel calcified coronary artery disease and mild aortic valve calcification. 11. Right IJ central venous catheter in place terminating in the low SVC. 12. Small soft tissue stranding in the right supraclavicular neck which could be blood products. 13. Endotracheal tube terminates above the mili. Repeat CT of chest / abdomen and pelvis revealed: IMPRESSION: 1. Moderate intermediate density right perinephric fluid extending into the bilateral extrarenal pelvis and also to a lesser extent in the peritoneal cavity, which could reflect retroperitoneal hematoma. Evaluation for active bleeding limited on this examination. 2. Moderate partially loculated right pleural effusion with a right thoracostomy tube terminating in the anterior medial right upper lobe. 3. Development of a small amount of air in the right pleural space at the level of the right middle lobe concordant with pneumothorax. 4. Bilateral renal calculi with a staghorn appearing calculus on the left. 5. Dependent consolidations of the [id number]-left lower lobes which could reflect atelectasis and/or pneumonia (which can be on the basis of aspiration. 6. Mild cardiomegaly, mild aortic valve calcifications and moderate coronary artery calcifications. Mild Interstitial pulmonary edema. CT of the head revealed: IMPRESSION: 1. No acute intracranial abnormality. 2. Generalized cerebral volume loss and mild chronic microvascular ischemic change. 3. Partially imaged endotracheal tube. Chest ultrasound revealed: Findings/Impression: There is a trace bilateral pleural effusion. Thoracentesis: FINDINGS: Moderate size, complex and septated right pleural effusion. Aspirated fluid is thick and green in consistency. IMPRESSION: Right thoracentesis with 250 mL removed for laboratory analysis. EKG in [facility] revealed sinus tachycardia, poor R-wave progression old inferior wall KS. later EKG revealed atrial fibrillation with RVR. Repeat EKGs questioned STEMI. but resolved later. Telemetry reveals sinus rhythm, occasions of A-fib with RVR, SVT Echocardiogram revealed: Technically limited study secondary to poor acoustic windows. Left ventricle: Left ventricle was normal-sized. Mild concentric left ventricular hypertrophy was seen. LVEF was 55-60%. No gross wall motion abnormality was observed, but its presence can not be ruled out on the basis of this study. Right ventricle is mildly dilated with normal systolic function. Left atrium was mildly dilated. Right atrium was normal-sized. Aortic valve was trileaflet. There was no aortic insufficiency. There was aortic sclerosis with no stenosis. There was trivial mitral/tricuspid regurgitation. Pulmonary valve was not well visualized. Right ventricular systolic pressure was assessed around 48 mm Hg. There was no pericardial effusion. Left heart cath revealed: One-vessel coronary artery disease, DIRECTOR REVENUE of mid LAD, Attempted to open up the LAD DIRECTOR REVENUE, partially/minimally successful (status post balloon angioplasty). LVEF of 25% (dilated LV). Cardiac suggestion for management: Dual antiplatelet therapy (loaded with aspirin and Plavix). Guideline directed medical therapy for systolic heart failure Repeat echo revealed: Technically limited study secondary to poor acoustic windows. Left ventricle: Concentric left ventricular hypertrophy was seen anteroapical hypokinesia was seen. The LVEF was around 40%. Right ventricular was normal sized with normal systolic function. Atria were not well-visualized. Aortic valve: Aortic valve was not well visualized. There was no aortic stenosis/insufficiency. Mild mitral/tricuspid regurgitation was observed. Pulmonary valve was not well visualized. Right ventricular systolic pressure was assessed around 35 mm Hg. There was no pericardial effusion. Patient is a 68-year-old morbidly obese patient who presented with respiratory failure to the hospital. Presentation is in favor of sepsis/septic shock. Multiorgan failure is observed. She is intubated and on vent support. She is on multiple pressor support. Life findings are in favor of acute renal failure. She also is known to have nephrolithiasis with history of staghorn calculi. Cardiac-ceballos, the patient did have episode of atrial fibrillation with RVR. She is found to have increased troponin. Presentation questions non-STEMI and possibly type 2 ischemia. Recognizing the presentation, ischemic workup should be postponed after clinical stability (only if patient recovers higher brain function). Is being followed by Nephrology. Had episodes of tachyarrhythmia. Loaded with Digoxin. Positive cultures. Repeated a-fib with RVR. Was evaluated by Interventional Cardiology recreation therapy director for STEMI (not considered STEMI). 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 s/p balloon angioplasty with minimal / partial result. s/p repeat right thoracotomy and right lung decortication and chest tube placement. Septic shock Multiorgan failure Acute respiratory failure on vent support Acute renal failure Nephrolithiasis Staghorn calculi Hydronephrosis Abnormal troponin, non-STEMI Atrial fibrillation with RVR Paroxysmal AFib Acute heart failure, diastolic Hepatosplenomegaly Pleural effusion Status post thoracentesis Morbid obesity s/p Cardioversion for A-fib with RVR s/p thoracoscopy and chest tube placement CAD: DIRECTOR REVENUE of mid LAD (considered old) with full of thrombus. s/p balloon angioplasty with minimal / partial result s/p tracheostomy s/p repeat thoracotomy and right lung decortication Cardiac suggestion for management: Manage in ICU Follow-up electrolytes and kidney function tests and correct abnormalities Pressure support to keep mean arterial pressure above 65 Amiodarone oral/N mg HS Daily aspirin (81 mg daily) s/p thoracoscopy and chest tube placement s/p repeat thoracotomy, right lung decortication and chest tube placement. s/p tracheostomy IV metoprolol PRN for a-fib with RVR episodes. Sepsis workup and management as per primary team Evaluation and management of respiratory failure as per primary team/Pulmonary Evaluation and management of nephrolithiasis/hydronephrosis as per primary/Urology Evaluation and management of acute renal failure as per Nephrology Further evaluation and management as per above and clinical course. A total of 75 minutes was spent reviewing the patient record, examining the patient, making a diagnostic and therapeutic plan, discussing this plan with medical personnel, following up on diagnostic studies and following the patient for clinical stability excluding any and all procedures. At least 50% of this time was spent in direct, [id number] contact. Thank you for allowing me to participate in this patient's care. Further recommendations will depend on patient's clinical course. Please do not hesitate to contact me if you have any questions or concerns. This medical document was created using electronic medical record system with [facility] dictation system. Although this document has been carefully reviewed, there may still be some phonetic and typographical errors. These areas are purely typographical due to the imperfection of the software programs, and do not reflect any compromise in the patient's medical care. Dietary Evaluation Review Comments: 1) If GI is accessible consider Nepro 1.8 @ 30 ml/hr goal rate as tolerated with current rate of propofol on board. 2) If pt remains NPO >7 days consider TPN to meet at least 75% of estimated needs 3) If pt continues to receive HD, advance pt diet when medically feasible to a Renal Standard diet modified per [employer]ANDC[employer] OFFICER recommendations 4) If HD is discontinued and GFR is within normal range, advance pt diet to a Regular diet, modified per [employer]ANDCARE OFFICER recommendations 5)If HD is discontinued and GFR lies within STG 1-4, advance pt diet to a Renal Specific K2,lowphos,HECTOR,2gmNa,80gPro diet 6) If HD is discontinued and if GFR returns to normal levels then ALEXANDRA 1 pkt BID with meals may be considered to aid with wound healing 7) Continue current plan of care Expected Outcomes/Goals: 1) Pt to receive nutrition support within 7 days of NPO status 2) Pt labs to improve 3) Pt diet to advance 4) F/U in 2-3 days Plan discussed with: Other (nurse) Dietary Evaluation Review Comments: 1) If GI is accessible consider Nepro 1.8 @ 30 ml/hr goal rate as tolerated with current rate of propofol on board. 2) If pt remains NPO >7 days consider TPN to meet at least 75% of estimated needs 3) If pt continues to receive HD, advance pt diet when medically feasible to a Renal Standard diet modified per [employer]ANDCARE OFFICER recommendations 4) If HD is discontinued and GFR is within normal range, advance pt diet to a Regular diet, modified per [employer]ANDCARE OFFICER recommendations 5)If HD is discontinued and GFR lies within STG 1-4, advance pt diet to a Renal Specific K2,lowphos,HECTOR,2gmNa,80gPro diet 6) If HD is discontinued and if GFR returns to normal levels then ALEXANDRA 1 pkt BID with meals may be considered to aid with wound healing 7) Continue current plan of care Expected Outcomes/Goals: 1) Pt to receive nutrition support within 7 days of NPO status 2) Pt labs to improve 3) Pt diet to advance 4) F/U in 2-3 days Plan discussed with: Other (Quita BAPTISTE ) DOMINIQUE LEEP May 04, 2024 05:01
[2024-05-04 05:25] LABS: Anisocytosis Slight; Platelet Estimate Adequate
--- NOTE | 2024-05-04 05:34 | DVH ---
EXAM: XY CHEST XRAY 1 VIEW Indication:on vent Technique: Single frontal view of the chest was obtained Comparison: XY CHEST XRAY 1 VIEW on DOS: 05/03/24, XY CHEST XRAY 1 VIEW on DOS: 05/02/24, XY CHEST XRAY 1 VIEW on DOS: 05/01/24, XY CHEST XRAY 1 VIEW on DOS: 04/30/24, XY CHEST PORTABLE on DOS: 04/29/24, XY CHEST XRAY 1 VIEW on DOS: 05/03/24 FINDINGS: Lines and Tubes: Tracheostomy, right PICC and right chest tube in satisfactory position. Lungs: Multifocal airspace disease. Pleura: No effusion. No pneumothorax. Cardiomediastinal contours: Unremarkable Bones: Unremarkable IMPRESSION: Lines and tubes in satisfactory position. No significant interval change.
[2024-05-04] MEDS: POTASSIUM CHL 20MEQ/100ML 100 ML IV SCH (06:53)
[2024-05-04 07:38] LABS: Base Excess -4.2 mmol/L (-2.0-3.0)
[2024-05-04] MEDS ORDERED: POTASSIUM CHL 20MEQ/100ML 100 ML IV SCH (08:00)
--- NOTE | 2024-05-04 09:27 | ECG ---
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
--- NOTE | 2024-05-04 10:24 | DVHPNRES ---
Progress Note Date Seen: May 04, 2024 Resident Creating Document: TOSHA MADDEN RESIDENT Has the PT tested + for MRSA If YES, has PT been informed?: No Medical Necessity Reason Pt with a Central, PICC or Fol: Yes The following are medically ne: Central Line, Whipple Catheter Reason for whipple catheter: Strict I&O Subjective Review of Systems HPI: 68/female, past medical history: Unknown Patient is 68-year-old female who was brought to the hospital from [facility] for higher level of care. Patient was initially treated facility for shortness of breath and was transferred to our hospital. During initial ED evaluation patient found to be tachypneic with severe respiratory failure, atrial fibrillation. Initially patient required oxygenation via non- rebreather mask however patient intubated to protect airway. Patient started on IV antibiotic, requiring vasopressor and amiodarone drip initially. With further evaluation chest ultrasound showed bilateral pleural effusion, CT scan of chest and abdomen was performed which showed partially loculated right pleural effusion and consolidation in right middle and lower lobe. Patient also found to have right hydronephrosis with 1.9 cm calculus into right UPJ. Radiologist performed right-sided thoracentesis which removed 250 mL of fluid. L patient was placed with right-sided chest tube for loculated empyema. Patient underwent right thoracoscopy with evacuation empyema with insertion of chest tube. Patient was extubated on April 16/2024. Patient was reintubated back given possible STEMI and transferred to left heart catheterization. Rn Neonatal did angioplasty for complete total occlusion of mid LAD. Started on heparin drip, aspirin and Plavix. Patient continued to have x-ray findings with right lower lobe opacity. Patient underwent to decortication and tracheostomy on Apr 29 for empyema. Off pressors since may 02 ROS: Not obtained as patient is intubated Today patient was seen and examined at bedside. patient underwent trach colar trail with t piece, yesterday she tolerated several hours, No new complaints. minimal drainage from the tubes . Continuous similar ventilator setting. Not on any pressor. Plan to continue drip collar trial as toleration. Objective vital signs Vital Sign Date Time Temp Pulse Resp B/P (MAP) Pulse Ox O2 Delivery O2 Flow Rate FiO2 05/04/24 08:26 40 05/04/24 08:26 37 96 T-piece 05/04/24 08:00 96 05/04/24 07:00 114/64 (81) 05/04/24 04:00 98.4 98.4 05/03/24 20:00 8 Total Intake and Output 05/03/24 05/03/24 05/04/24 14:59 22:59 06:59 Intake Total 100 ml 520 ml 505.0 ml Output Total 1215 ml 480 ml Balance 100 ml -695 ml 25.0 ml medications Current Medications Medications Dose Ordered Sig/Destini Route Start Time Stop Time Status Last Admin Dose Admin Heparin Sodium/ Dextrose 250 ml @ 18 mls/hr [id number] IV 03/31/24 23:45 UNV Midazolam HCl 50 ml @ 1 mls/hr Q24H IV 04/01/24 01:30 05/01/24 03:42 5 MLS/HR Albumin Human 100 ml @ 100 mls/hr KIRAN PRN IV 04/03/24 07:00 Sodium Chloride 10 ml QSHIFT@ IV 04/09/24 22:00 05/03/24 22:00 10 ML Iron Sucrose 110 ml @ 110 mls/hr DAILY@1200 IV 04/10/24 12:00 Hold 04/19/24 13:25 110 MLS/HR Amiodarone HCl 200 mg Q12HR PO 04/10/24 22:00 UNV Albuterol 2.5 mg Q4HR NEB 04/16/24 18:00 05/04/24 06:18 2.5 MG Ipratropium [place] 0.5 mg Q4HR NEB 04/16/24 18:00 05/04/24 06:18 0.5 MG Budesonide 0.5 mg BID NEB 04/16/24 22:00 05/03/24 22:03 0.5 MG Fentanyl Citrate 250 ml @ 2.5 mls/hr Q24H IV 04/20/24 22:30 05/04/24 01:11 2.5 MLS/HR Aspirin 81 mg DAILY PO 04/22/24 10:00 05/03/24 10:28 81 MG Piperacillin Sod/ Tazobactam Sod 100 ml @ 25 mls/hr Q8H IV 04/22/24 00:00 05/04/24 09:03 25 MLS/HR Pantoprazole Sodium 40 mg DAILY IV 04/22/24 10:00 05/03/24 10:27 40 MG Norepinephrine Bitartrate 250 ml @ 1.875 mls/ hr Q24H IV 04/28/24 18:45 05/01/24 00:34 5.7 MLS/HR Purified Water 200 ml TID GT 05/01/24 14:00 05/04/24 05:41 200 ML Amiodarone HCl 200 mg HS PO 05/02/24 22:00 05/03/24 22:00 200 MG Enteral Nutritional Formula 1,000 ml 60ML/HR GT 05/02/24 12:45 05/02/24 12:59 1,000 ML Enoxaparin Sodium 40 mg DAILY SC 05/03/24 10:00 05/03/24 10:27 40 MG Potassium Chloride 100 ml @ 50 mls/hr Q2H IV 05/04/24 06:45 05/04/24 10:44 05/04/24 09:03 50 MLS/HR Potassium Chloride 100 ml @ 50 mls/hr Q2H IV 05/04/24 08:00 05/04/24 11:59 UNV Examination General: Patient is of sedated, alert and oriented. HEENT: Normocephalic, atraumatic, moist mucous membranes Respiratory/pulmonary: Presence of two chest tube with connection to drainage. No air leak. Cardiovascular: Sinus rhythm, no murmur, no elevation of JVD. Abdomen: Abdomen slightly distended, there is no pain to palpation in any of the abdominal quadrants, no palpable masses. Extremities: There is minimal swelling in the lower extremities bilaterally. Peripheral Pulses: 3+ Radial (R). 3+ Radial (L). 3+ Dorsalis pedis (R). 3+ Dorsalis pedis(L) Skin: There is dry skin in bilateral lower extremities with scales and excoriations. Neurological: Cranial now intake. laboratory and microbiology Laboratory Tests 05/04/24 03:23 Test 05/04/24 03:23 Range/Units Serum Glucose 97 74-106 mg/dL Microbiology Date/Time Source Procedure Growth Status 05/02/24 14:00 Stool Stool Culture - Final Complete 05/02/24 14:00 Stool Shiga Toxin I & II - Final Complete 04/29/24 08:17 Pleural Fluid Gram Stain - Final Resulted 04/29/24 08:17 Pleural Fluid Anaerobic Culture - Preliminary Resulted 04/29/24 08:17 Pleural Fluid Aerobic Culture - Preliminary Resulted 04/22/24 18:03 Urine - [place] Urine Culture - Final Yeast, not Arlet albicans Complete 04/22/24 15:16 Blood Blood Culture - Final NO GROWTH AFTER 5 DAYS OF INCUBATION. Complete 04/18/24 15:02 Sputum Gram Stain - Final Complete 04/18/24 15:02 Respiratory Culture - Final Yeast, not Arlet albicans Complete 04/01/24 11:19 Nose MRSA Screen - Final Complete Problem List/Assessment/Plan Problem List/Assessment/Plan Neurology Off sedation. Respiratory Acute hypoxic respirtory failure likely due to right-sided pleural effusion/empyema and consolidation on right middle and lower lobe -on mechanical ventilation: Respiratory rate 16, tidal volume 500, FiO2 30%, peep 5 cm H2O -presence of two chest tube: Minimal drainage, no air leak. -chest x-ray on 05/04/2024 improvement on right side pleural effusion -IV antibiotic with Zosyn -CT of the chest and abdomen showed moderate partial loculated right pleural effusion and consolidation on right middle/lower lobes. Mild cardiomegaly and interstitial pulmonary edema. It also showed right hydronephrosis with 1.9 cm calculus into the right UPJ. There is also a 2.6 cm staghorn appearing calculus causing mid to lower pole left hydronephrosis. -Respiratory culture: Yeast, not Arlet on 04/17/2024. Repeat culture pending. -CT chest(04/22/24):1. Moderate intermediate density right perinephric fluid extending into the bilateral extrarenal pelvis and also to a lesser extent in the peritoneal cavity, which could reflect retroperitoneal hematoma. Evaluation for active bleeding limited on this examination. 2. Moderate partially loculated right pleural effusion with a right thoracostomy tube terminating in the anterior medial right upper lobe. 3. Development of a small amount of air in the right pleural space at the level of the right middle lobe concordant with pneumothorax. 4. Bilateral renal calculi with a staghorn appearing calculus on the left. 5. Dependent consolidations of the [id number]-vlft-left lower lobes which could reflect atelectasis and/or pneumonia (which can be on the basis of aspiration. 6. Mild cardiomegaly, mild aortic valve calcifications and moderate coronary artery calcifications. Mild Interstitial pulmonary edema. -Underwent tracheostomy (04/23/24) -Surgical(04/29/24): Right thoracotomy, evacuation of right empyema. Irrigation and drainage of right chest cavity. -underwent trach collar trial as well. Continued tomorrow as well. Septic shock in the setting of loculated right-sided pleural effusion and pneumonia -continue management of acute respiratory failure likely due to empyema. -Off vasopressor - continue zosyn -Respiratory culture positive for yeast on 04/17/2024.: DC micafungin. S/P Tracheostomy (04/23/24) Cardiology Acute on chronic systolic/diastolic heart failure -echocardiogram is showing an LVEF of 55-60% with increased RVSP at 48 mmHg and no pericardial effusion -Continue monitor I/O -repeat x ray In AM NSTEMI type II likely due to above -continue current management. -CAD: G[employer] SUPERVISOR of mid LAD (considered old) with full of thrombus. s/p balloon angioplasty with minimal / partial result -Aspirin Atrial fibrilation with RVR: Rate controlled -continue amiodarone 200 mg p.o. b.i.d. -Cardiology on board -Not on anticoagulation Nephrology Hypernatremia :Improved -repeat sodium level in a.m. -Free water :200ml GT TID Bilateral hydronephrosis with left-sided staghorn calculi and right UVJ calculi -CT scan of the chest and abdomen showed right hydronephrosis with 1.9 cm calculus into the right UPJ, there was also a 2.6 cm staghorn appearing calculus causing mid to lower pole left hydronephrosis. -drainage with Whipple catheter. -continue I/O monitoring CHRISTOPH due to VMN initially likely in setting of septic shock: Resolved -most likely secondary to bilateral renal calculi -monitor kidney function Hypokalemia -replenish Hematogy Normocytic anemia:Stable -2 Unit of PRBCS given 9.1 Nutrition Nepro 20 mL/hour via G-tube., target 30 ml/hr Lines: Right upper arm PICC line: Placed on 04/09/2024 PUD prophylaxis: Protonix DVT prophylaxis: Lovenox Whipple catheter: 04/29/2024 Goals of care discussed with the daughter and brother at bedside for >31min by Dr. Perez previously Critical time spent > 62 min Plan discussed with Dr Shekhar Plan discussed with: Patient, Other (rn) Dietary Evaluation Review Comments: 1) If GI is accessible consider Nepro 1.8 @ 30 ml/hr goal rate as tolerated with current rate of propofol on board. 2) If pt remains NPO >7 days consider TPN to meet at least 75% of estimated needs 3) If pt continues to receive HD, advance pt diet when medically feasible to a Renal Standard diet modified per CANVAS REPAIRER recommendations 4) If HD is discontinued and GFR is within normal range, advance pt diet to a Regular diet, modified per CANVAS REPAIRER recommendations 5)If HD is discontinued and GFR lies within STG 1-4, advance pt diet to a Renal Specific K2,lowphos,HECTOR,2gmNa,80gPro diet 6) If HD is discontinued and if GFR returns to normal levels then ALEXANDRA 1 pkt BID with meals may be considered to aid with wound healing 7) Continue current plan of care Expected Outcomes/Goals: 1) Pt to receive nutrition support within 7 days of NPO status 2) Pt labs to improve 3) Pt diet to advance 4) F/U in 2-3 days TOSHA MADDEN RESIDENT May 04, 2024 10:24
[2024-05-05] VITALS (64 sets, daily range): BP systolic 94–145; BP diastolic 43–84; PULSE 80–108; RESP 17–38; TEMP 98–99; O2SAT 94–100
[2024-05-05 04:13] LABS: Alanine Aminotransferase 42 U/L (7-40); Albumin 3.1 g/dL (3.2-4.8); Alkaline Phosphatase 70 U/L (46-116); Anion Gap 10 (5-15); Aspartate Aminotransferase 32 U/L (13-40); BUN/Creatinine Ratio 20.2 (10.0-20.0); Blood Urea Nitrogen 18 mg/dL (9-23); Carbon Dioxide 19 mmol/L (20-31); Chloride 112 mmol/L (98-107); Glucose 99 mg/dL (74-106); Potassium 3.8 mmol/L (3.5-5.1); Sodium 141 mmol/L (136-145)
[2024-05-05 04:14] LABS: Bilirubin, Total 0.5 mg/dL (0.2-1.0); Total Protein 5.4 g/dL (5.7-8.2)
[2024-05-05 04:28] LABS: Hematocrit 29.9 % (36.0-46.0); Hemoglobin 9.1 g/dL (12.2-16.2); Mean Corpuscular Hemoglobin 29.2 pg (28.0-32.0); Mean Corpuscular Hgb Conc. 30.6 g/dL (32.0-36.0); Mean Corpuscular Volume 95.5 fL (80.0-100.0); Platelet Count (auto) 159 10^3/uL (140-450); Red Blood Cells 3.13 10^6/uL (4.0-5.20); White Blood Cell 13.9 10^3/uL (4.4-10.8)
[2024-05-05 04:29] LABS: Red Cell Distribution Width 27.2 % (11.8-14.3)
[2024-05-05 04:30] LABS: Basophils % (manual) 0 (0.0-2.0); Blast Cells 0; Metamyelocytes % 0; Myelocytes % 0; Promyelocytes % 0; Reactive Lymphocytes 0
--- NOTE | 2024-05-05 06:47 | DVH ---
CHEST RADIOGRAPH Indication:dyspnea Technique: Single frontal view of the chest was obtained Comparison: XY CHEST XRAY 1 VIEW on DOS: 05/04/24 FINDINGS: Lines and Tubes: Chest tube is unchanged. Enteric tube terminates below the left hemidiaphragm and o utside the field of view. Right chest tubes are unchanged. Lungs: Multifocal opacities, right greater than are unchanged. Pleura: No effusion. No pneumothorax. Cardiomediastinal contours: Unremarkable Bones: No acute osseous abnormality. IMPRESSION: 1. No significant change in position of the support lines and tubes. 2. Bilateral opacities similar to prior study.
[2024-05-05 07:13] LABS: Band Neutrophils % (manual) 2; Eosinophils % (manual) 3 (0-7); Lymphocytes % (manual) 8 (10.0-50.0); Monocytes % (manual) 4 (0-12)
[2024-05-05 07:14] LABS: Anisocytosis Moderate; Hypochromia Moderate
[2024-05-05 07:15] LABS: Platelet Estimate Adequate
--- NOTE | 2024-05-05 07:55 | DVHPN2 ---
Progress Note - Dictate Date Seen: May 05, 2024 Has the PT tested + for MRSA If YES, has PT been informed?: No Medical Necessity Reason Pt with a Central, PICC or Fol: Yes The following are medically ne: Central Line, Whipple Catheter Reason for whipple catheter: Strict I&O vital signs Vital Sign Date Time Temp Pulse Resp B/P (MAP) Pulse Ox O2 Delivery O2 Flow Rate FiO2 05/05/24 06:38 84 26 121/67 (85) 99 30 05/05/24 06:00 Mechanical Ventilator+ 05/05/24 04:00 98.6 98.6 05/04/24 18:18 8 Total Intake and Output 05/04/24 05/04/24 05/05/24 15:00 23:00 07:00 Intake Total 330 ml 602.5 ml Output Total 400 ml 370 ml Balance -70 ml 232.5 ml medications Current Medications Medications Dose Ordered Sig/Destini Route Start Time Stop Time Status Last Admin Dose Admin Heparin Sodium/ Dextrose 250 ml @ 18 mls/hr [id number] IV 03/31/24 23:45 UNV Midazolam HCl 50 ml @ 1 mls/hr Q24H IV 04/01/24 01:30 05/01/24 03:42 5 MLS/HR Albumin Human 100 ml @ 100 mls/hr KIRAN PRN IV 04/03/24 07:00 Sodium Chloride 10 ml QSHIFT@22 IV 04/09/24 22:00 05/04/24 21:51 10 ML Iron Sucrose 110 ml @ 110 mls/hr DAILY@1200 IV 04/10/24 12:00 Hold 04/19/24 13:25 110 MLS/HR Amiodarone HCl 200 mg Q12HR PO 04/10/24 22:00 UNV Albuterol 2.5 mg Q4HR NEB 04/16/24 18:00 05/05/24 06:36 2.5 MG Ipratropium Eudora 0.5 mg Q4HR NEB 04/16/24 18:00 05/05/24 06:36 0.5 MG Budesonide 0.5 mg BID NEB 04/16/24 22:00 05/05/24 06:38 0.5 MG Fentanyl Citrate 250 ml @ 2.5 mls/hr Q24H IV 04/20/24 22:30 05/04/24 01:11 2.5 MLS/HR Aspirin 81 mg DAILY PO 04/22/24 10:00 05/04/24 10:25 81 MG Piperacillin Sod/ Tazobactam Sod 100 ml @ 25 mls/hr Q8H IV 04/22/24 00:00 05/04/24 23:34 25 MLS/HR Pantoprazole Sodium 40 mg DAILY IV 04/22/24 10:00 05/04/24 10:24 40 MG Norepinephrine Bitartrate 250 ml @ 1.875 mls/ hr Q24H IV 04/28/24 18:45 05/01/24 00:34 5.7 MLS/HR Purified Water 200 ml TID GT 05/01/24 14:00 05/05/24 05:52 200 ML Amiodarone HCl 200 mg HS PO 05/02/24 22:00 05/04/24 21:51 200 MG Enteral Nutritional Formula 1,000 ml 60ML/HR GT 05/02/24 12:45 05/04/24 19:55 1,000 ML Enoxaparin Sodium 40 mg DAILY SC 05/03/24 10:00 05/04/24 10:24 40 MG Potassium Chloride 100 ml @ 50 mls/hr Q2H IV 05/04/24 08:00 05/04/24 11:59 UNV laboratory and microbiology Laboratory Tests 05/05/24 03:27 Test 05/05/24 03:27 Range/Units Serum Glucose 99 74-106 mg/dL Assessment/Plan Off Levophed Days ago: There was question about EKG showing STEMI. Patient was intubated again by primary team and taken to [facility]. 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 s/p balloon angioplasty with minimal / partial result s/p thoracoscopy and chest tube placement Patient is a 68-year-old female who was transferred from [facility]. She originally presented to [facility] for shortness of breath ongoing for few days. She is intubated and is being managed in ICU. Information was obtained by reviewing the chart and communicating with staff. Reportedly, she presented with respiratory failure to [facility] (oxygen saturation was 88%) and over there was found to have white blood cell count of 26.6, hemoglobin of 11.1, creatinine of 5.6, potassium of 5.6 and troponin of 1.01. She was given 365 mg of aspirin in [facility]. She did have an episode of atrial fibrillation with RVR with questionable ST changes and was transferred to our facility for further care. She was also found to have right pleural effusion in [facility] and was diagnosed with non-STEMI. s/p tracheostomy, more alert Obese. Mucosa is pale. Scattered rhonchi in the lungs is heard. Cardiac: Regular, no thrill/gallop. Abdomen is soft with increased bowel sounds. There is no gross mass. Extremities reveal 1+ edema bilaterally. Available past medical history includes obesity and questionable history of psoriasis. WBC: 25.3 - 23.7 - 20.2 - 20.5 - 17.6 - 18.4 - 19.2 - 19.4 - 22.2 - 16.4 - 16.1 - 19.5 - 14.7 - 12.3 - 9.8 - 10.0 - 8.3 - 9.2 - 10.2 - 11.4 - 10.3 - 12.0 - 13.8 - 16.3 - 18.0 - 18.2 - 16.6 - 15.6 - 11.7 - 9.8 - 9.1 - 11.4 - 12.3 - 15.7 - 15.3 - 14.7 - 11.1 - 11.0 - 11.9 - 13.9 Hemoglobin: 10.8 - 9.1 - 8.5 - 8.4 - 8.8 - 8.6 - 8.9 - 8.1 - 8.4 - 8.1 - 8.1 - 8.2 - 8.0 - 7.4 - 7.4 - 7.7 - 7.1 - 8.0 - 7.5 - 8.8 - 7.1 - 9.0 - 8.9 - 9.0 - 8.4 - 8.4 - 8.4 - 8.1 - 8.2 - 8.0 - 8.0 - 8.0 - 7.8 - 7.1 - 10.8 - 9.0 - 8.8 - 8.5 - 9.2 - 9.1 - 9.1 D-dimer: 3.62 Creatinine: 5.67 - 5.78 - 5.41 - 4.92 - 4.55 - 4.68 - 4.71 - 4.64 - 4.48 - 3.83 - 3.66 - 3.65 - 3.25 - 2.82 - 2.41 - 2.34 - 2.01 - 1.90 - 1.60 - 1.83 - 1.73 - 1.74 - 1.76 - 1.78 - 1.82 - 1.94 - 1.99 - 1.93 - 1.95 - 2.39- 2.09 - 1.81 - 1.54 - 1.41 - 1.32 - 1.31 - 1.17 - 1.09 - 0.97 - 0.94 - 0.93 - 0.89 Potassium: 6.0 - 6.3 - 6.1 - 6.0 - 5.3 - 5.0 - 4.9 - 4.8 - 5.1 - 5.4 - 4.9 - 5.3 - 4.8 - 4.5 - 4.7 - 4.3 - 4.2 - 3.9 - 4.6 - 3.8 - 3.5 - 3.3 - 3.6 - 3.6 - 4.0 - 3.5 - 4.0 - 3.7 - 3.6 - 3.5 - 3.4 - 4.0 - 3.9 - 3.0 - 3.4 - 3.3 - 3.6 - 3.3 - 3.0 - 4.0 - 3.5 - 3.3 - 3.1 - 3.5 - 3.3 - 3.8 Lactic acid: 3.3 - 3.4 - 2.3 - 2.5 - 2.5 - 2.7 - 2.4 - 2.5 - 3.1 - 2.3 - 1.7 - 1.7 TSH: 1.71 BNP: 274.69 - 1944.81 - 373.79 Troponin (high sensitive): 6940 - 8178 - 5709 - 6897 - 857 - 9798 Blood culture: positive Pleural fluid culture: E-coli Digoxin level: 2.09 Stool OB: positive Chest x-ray revealed: IMPRESSION: 1. Moderate right pleural effusion. 2. Cardiomegaly with mild pulmonary vascular congestion bilaterally. Repeat chest x-ray revealed: IMPRESSION: 1. Endotracheal tube and gastric tubes in place as described. 2. Right IJ central venous catheter projects over the lower SVC. 3. Mild cardiomegaly and prominence of the pulmonary vasculature. 4. Moderate to large right pleural effusion. Repeat chest x-ray revealed: IMPRESSION: Similar lung aeration with large right pleural effusion. No pneumothorax seen. Stable lines and tubes. Repeat chest x-ray revealed: IMPRESSION: Similar lung aeration with large right pleural effusion. No pneumothorax seen. Stable lines and tubes. Repeat chest xry revealed: Lines and tubes: ET in the mid thoracic trachea. NG crosses midline. Right CVC is stable. Left HD catheter projects over the mediastinum. Cardiomediastinal silhouette: Enlarged Pulmonary vasculature: prominent Lung expansion: low Lung airspace: patchy bilateral airspace opacity. Lung interstitium: normal Pleura: Similar large right effusion. Pneumothorax: no Bones: Unremarkable Other: no IMPRESSION: Lines and tubes, as above. Similar lung aeration bilaterally with a right pleural effusion and patchy airspace opacities. Repeat chest xry revealed: IMPRESSION: 1. Stable position of the support lines and tubes. 2. Interstitial and alveolar opacities. Repeat chest xry revealed: IMPRESSION: Unchanged multifocal airspace disease. Small to moderate right pleural effusion ; possibly loculated. Repeat chest xry revealed: IMPRESSION: Lines and tubes in satisfactory position. No significant interval change. Repeat chest xry revealed: IMPRESSION: 1. Support lines and tubes in appropriate position. 2. Pulmonary vascular congestion. 3. Bilateral pleural effusions, right greater than left. Repeat chest xry revealed: IMPRESSION: 1. Support lines and tubes in appropriate position. 2. Pulmonary vascular congestion. 3. Bilateral pleural effusions, right greater than left. Repeat chest xry revealed: IMPRESSION: Interval placement of right chest tube which projects deep into the right hilar region. Repeat chest xry revealed: IMPRESSION: No interval change Repeat chest xry revealed: Findings/IMPRESSION: Right IJ CVC terminating in the SVC. Endotracheal tube projected 5 cm superior to the mili. Enteric tube projected below the GE junction. Right-sided PICC projects terminating near the cavoatrial junction. Small bilateral pleural effusions and/or atelectasis with superimposed infection not excluded. Repeat chest xry revealed: MPRESSION: 1. Bilateral pleural effusions and airspace disease right greater than left. Repeat chest xry revealed: IMPRESSION: 1. Endotracheal tube terminates 6.0 cm above the mili, previously 3.1 cm above the mili. Otherwise, No significant interval change. Repeat chest xry revealed: IMPRESSION: 1. Endotracheal tube terminates 6.0 cm above the mili, previously 3.1 cm above the mili. Otherwise, No significant interval change. Repeat chest xry revealed: IMPRESSION: Lines and tubes in satisfactory position. No significant interval change. Repeat chest xry revealed: IMPRESSION: Lines and tubes in satisfactory position. No significant interval change. Repeat chest xry revealed: IMPRESSION: Lines and tubes in satisfactory position. No significant interval change. Repeat chest xry revealed: IMPRESSION: Lines and tubes in satisfactory position. No significant interval change. Repeat chest xry revealed: IMPRESSION: Endotracheal tube projects in appropriate position. Otherwise no significant change Repeat chest xry revealed: FINDINGS: Lines and Tubes: Right PICC and enteric catheter and right chest tube in satisfactory position. Endotracheal tube projects 3.8 cm above the level of the mili. Lungs: Bibasilar opacities. Pleura: Possible small right pleural effusion. No pneumothorax. Cardiomediastinal contours: Unremarkable Bones: Unremarkable IMPRESSION: No significant change compared to prior exam. Repeat chest xry revealed: IMPRESSION: Lines and tubes in satisfactory position. No significant interval change. Repeat chest xry revealed: IMPRESSION: 1. Bibasilar opacities representing pleural effusions and airspace disease similar to prior study. 2. Satisfactory position of the support lines and tubes. Repeat chest xry revealed: IMPRESSION: 1. Stable appearance of the chest. Unchanged position of the support lines and tubes. Repeat chest xry revealed: Lines and Tubes: - Tracheostomy in satisfactory position - Enteric catheter in satisfactory position - Right PICC (Peripherally Inserted Central Catheter) in satisfactory position - Right chest tube in satisfactory position Lungs: - Diffuse pulmonary vascular congestion Pleura: - Possible small bilateral pleural effusions Cardiomediastinal contours: - Unremarkable Bones: Unremarkable IMPRESSION: Tracheostomy in satisfactory position. No other significant interval change. Repeat chest xry revealed: IMPRESSION: 1. Stable pulmonary congestion, patchy right mid to lower lung zone opacities. 2. Stable position of the support lines and tubes. Repeat chest xry revealed: IMPRESSION: Lines and tubes in satisfactory position. No significant interval change. Repeat chest xry revealed: IMPRESSION: Lines and tubes in satisfactory position. No significant interval change. Repeat chest xry revealed: IMPRESSION: Examination is markedly limited by patient positioning. Tracheostomy tube tip appears at the thoracic inlet likely within the trachea. There is a right chest tube right PICC line with tip at the superior vena cava. Bilateral effusions and moderate pulmonary vascular congestion as well as cardiomegaly. No pneumothorax. Repeat chest xry revealed: IMPRESSION: 1. Stable position of the support lines and tubes. 2. Bibasilar opacities similar to prior study. Repeat chest xry revealed: IMPRESSION: 1. Support lines and tubes similar to the prior exam. 2. No significant change in bilateral airspace disease. Repeat chest xry revealed: IMPRESSION: 1. No significant change in position of the support lines and tubes. 2. Slightly improved aeration in the right lung. Repeat chest xry revealed: IMPRESSION: Increased congestion. No other significant interval change. Repeat chest xry revealed: IMPRESSION: Lines and tubes in satisfactory position. No significant interval change. Repeat chest xry revealed: IMPRESSION: Lines and tubes in satisfactory position. No significant interval change. Repeat chest xry revealed: IMPRESSION: Lines and tubes in satisfactory position. No significant interval change. Repeat chest xry revealed: IMPRESSION: Lines and tubes in satisfactory position. No significant interval change. Repeat chest xry revealed: IMPRESSION: 1. No significant change in position of the support lines and tubes. 2. Bilateral opacities similar to prior study. Renal ultrasound revealed: IMPRESSION: 1. Right kidney measures 13.4 cm. Decreased cortical thickness on the right. 2. Left kidney measures 10.2 cm. 3. No hydronephrosis on the right grade 1 hydronephrosis on the left. 4. Bilateral renal calculi. CT scan of the chest/abdomen and pelvis revealed: IMPRESSION: 1. Moderate partially loculated right pleural effusion and consolidations in the right middle and lower lobes which could be pneumonia and/or atelectasis. 2. Mild cardiomegaly, mild interstitial pulmonary edema, and body wall edema. 3. There is a 1.9 cm calculus in the right UPJ with mild right hydronephrosis 4. There is a 2.6 cm somewhat staghorn appearing calculus in the left renal pelvis and UPJ causing mild predominantly mid to lower pole left hydronephrosis. Mild soft tissue stranding about the left renal pelvis which could be due to obstruction or superimposed infection. Correlate with urinalysis. 5. Partial duplication of the left renal collecting system without hydronephrosis in the upper pole. 6. Moderate right perinephric, right retroperitoneal, and bilateral extraperitoneal pelvis low-density fluid and very mild left retroperitoneal low-density fluid. This could be fluid related to bilateral renal obstructions and forniceal ruptures versus evolved retroperitoneal hematoma. This is suboptimally evaluated without intravenous contrast. 7. Fluid-filled small and large bowel loops which may be physiologic or related to enterocolitis and could be manifesting as loose stools and/or diarrhea. 8. Prominent endometrium measuring at least 2.8 cm, suboptimally evaluated by CT. Recommend characterization with nonemergent pelvic ultrasound if clinically indicated. 9. Mild hepatosplenomegaly. 10. Moderate three-vessel calcified coronary artery disease and mild aortic valve calcification. 11. Right IJ central venous catheter in place terminating in the low SVC. 12. Small soft tissue stranding in the right supraclavicular neck which could be blood products. 13. Endotracheal tube terminates above the mili. Repeat CT of chest / abdomen and pelvis revealed: IMPRESSION: 1. Moderate intermediate density right perinephric fluid extending into the bilateral extrarenal pelvis and also to a lesser extent in the peritoneal cavity, which could reflect retroperitoneal hematoma. Evaluation for active bleeding limited on this examination. 2. Moderate partially loculated right pleural effusion with a right thoracostomy tube terminating in the anterior medial right upper lobe. 3. Development of a small amount of air in the right pleural space at the level of the right middle lobe concordant with pneumothorax. 4. Bilateral renal calculi with a staghorn appearing calculus on the left. 5. Dependent consolidations of the [id number]-left lower lobes which could reflect atelectasis and/or pneumonia (which can be on the basis of aspiration. 6. Mild cardiomegaly, mild aortic valve calcifications and moderate coronary artery calcifications. Mild Interstitial pulmonary edema. CT of the head revealed: IMPRESSION: 1. No acute intracranial abnormality. 2. Generalized cerebral volume loss and mild chronic microvascular ischemic change. 3. Partially imaged endotracheal tube. Chest ultrasound revealed: Findings/Impression: There is a trace bilateral pleural effusion. Thoracentesis: FINDINGS: Moderate size, complex and septated right pleural effusion. Aspirated fluid is thick and green in consistency. IMPRESSION: Right thoracentesis with 250 mL removed for laboratory analysis. EKG in [facility] revealed sinus tachycardia, poor R-wave progression old inferior wall DC. later EKG revealed atrial fibrillation with RVR. Repeat EKGs questioned STEMI. but resolved later. Telemetry reveals sinus rhythm, occasions of A-fib with RVR, SVT Echocardiogram revealed: Technically limited study secondary to poor acoustic windows. Left ventricle: Left ventricle was normal-sized. Mild concentric left ventricular hypertrophy was seen. LVEF was 55-60%. No gross wall motion abnormality was observed, but its presence can not be ruled out on the basis of this study. Right ventricle is mildly dilated with normal systolic function. Left atrium was mildly dilated. Right atrium was normal-sized. Aortic valve was trileaflet. There was no aortic insufficiency. There was aortic sclerosis with no stenosis. There was trivial mitral/tricuspid regurgitation. Pulmonary valve was not well visualized. Right ventricular systolic pressure was assessed around 48 mm Hg. There was no pericardial effusion. Left heart cath revealed: One-vessel coronary artery disease, SECURE SOFTWARE ASSESSOR of mid LAD, Attempted to open up the LAD SECURE SOFTWARE ASSESSOR, partially/minimally successful (status post balloon angioplasty). LVEF of 25% (dilated LV). Cardiac suggestion for management: Dual antiplatelet therapy (loaded with aspirin and Plavix). Guideline directed medical therapy for systolic heart failure Repeat echo revealed: Technically limited study secondary to poor acoustic windows. Left ventricle: Concentric left ventricular hypertrophy was seen anteroapical hypokinesia was seen. The LVEF was around 40%. Right ventricular was normal sized with normal systolic function. Atria were not well-visualized. Aortic valve: Aortic valve was not well visualized. There was no aortic stenosis/insufficiency. Mild mitral/tricuspid regurgitation was observed. Pulmonary valve was not well visualized. Right ventricular systolic pressure was assessed around 35 mm Hg. There was no pericardial effusion. Patient is a 68-year-old morbidly obese patient who presented with respiratory failure to the hospital. Presentation is in favor of sepsis/septic shock. Multiorgan failure is observed. She is intubated and on vent support. She is on multiple pressor support. Life findings are in favor of acute renal failure. She also is known to have nephrolithiasis with history of staghorn calculi. Cardiac-ceballos, the patient did have episode of atrial fibrillation with RVR. She is found to have increased troponin. Presentation questions non-STEMI and possibly type 2 ischemia. Recognizing the presentation, ischemic workup should be postponed after clinical stability (only if patient recovers higher brain function). Is being followed by Nephrology. Had episodes of tachyarrhythmia. Loaded with Digoxin. Positive cultures. Repeated a-fib with RVR. Was evaluated by Interventional Cardiology service promoter salesperson for STEMI (not considered STEMI). 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 s/p balloon angioplasty with minimal / partial result. s/p repeat right thoracotomy and right lung decortication and chest tube placement. Septic shock Multiorgan failure Acute respiratory failure on vent support Acute renal failure Nephrolithiasis Staghorn calculi Hydronephrosis Abnormal troponin, non-STEMI Atrial fibrillation with RVR Paroxysmal AFib Acute heart failure, diastolic Hepatosplenomegaly Pleural effusion Status post thoracentesis Morbid obesity s/p Cardioversion for A-fib with RVR s/p thoracoscopy and chest tube placement CAD: SECURE SOFTWARE ASSESSOR of mid LAD (considered old) with full of thrombus. s/p balloon angioplasty with minimal / partial result s/p tracheostomy s/p repeat thoracotomy and right lung decortication Cardiac suggestion for management: Manage in ICU Follow-up electrolytes and kidney function tests and correct abnormalities Pressure support to keep mean arterial pressure above 65 Amiodarone oral/N mg HS Daily aspirin (81 mg daily) s/p thoracoscopy and chest tube placement s/p repeat thoracotomy, right lung decortication and chest tube placement. s/p tracheostomy IV metoprolol PRN for a-fib with RVR episodes. Sepsis workup and management as per primary team Evaluation and management of respiratory failure as per primary team/Pulmonary Evaluation and management of nephrolithiasis/hydronephrosis as per primary/Urology Evaluation and management of acute renal failure as per Nephrology Further evaluation and management as per above and clinical course. A total of 75 minutes was spent reviewing the patient record, examining the patient, making a diagnostic and therapeutic plan, discussing this plan with medical personnel, following up on diagnostic studies and following the patient for clinical stability excluding any and all procedures. At least 50% of this time was spent in direct, [id number] contact. Thank you for allowing me to participate in this patient's care. Further recommendations will depend on patient's clinical course. Please do not hesitate to contact me if you have any questions or concerns. This medical document was created using electronic medical record system with [employer] computerized dictation system. Although this document has been carefully reviewed, there may still be some phonetic and typographical errors. These areas are purely typographical due to the imperfection of the software programs, and do not reflect any compromise in the patient's medical care. Dietary Evaluation Review Comments: 1) If GI is accessible consider Nepro 1.8 @ 30 ml/hr goal rate as tolerated with current rate of propofol on board. 2) If pt remains NPO >7 days consider TPN to meet at least 75% of estimated needs 3) If pt continues to receive HD, advance pt diet when medically feasible to a Renal Standard diet modified per METAL ROOM DENTAL TECHNICIAN recommendations 4) If HD is discontinued and GFR is within normal range, advance pt diet to a Regular diet, modified per METAL ROOM DENTAL TECHNICIAN recommendations 5)If HD is discontinued and GFR lies within STG 1-4, advance pt diet to a Renal Specific K2,lowphos,HECTOR,2gmNa,80gPro diet 6) If HD is discontinued and if GFR returns to normal levels then ALEXANDRA 1 pkt BID with meals may be considered to aid with wound healing 7) Continue current plan of care Expected Outcomes/Goals: 1) Pt to receive nutrition support within 7 days of NPO status 2) Pt labs to improve 3) Pt diet to advance 4) F/U in 2-3 days Plan discussed with: Other (nurse) HERMINIO JOHNSON MD May 05, 2024 07:55
[2024-05-05] MEDS: ACETYLCYSTEINE 20%(200MG/ML) SOL 4ML NEB SCH (14:41)
[2024-05-05] MEDS: fentaNYL Drip 2500mCg/250mlNS 250 ML IV SCH (15:00)
--- NOTE | 2024-05-05 17:02 | DVHPNRES ---
Progress Note Date Seen: May 05, 2024 Resident Creating Document: JUAN VAZQUEZ RESIDENT Has the PT tested + for MRSA If YES, has PT been informed?: No Medical Necessity Reason Pt with a Central, PICC or Fol: Yes The following are medically ne: Central Line, Whipple Catheter Reason for whipple catheter: Strict I&O Subjective Review of Systems HPI: 68/female, past medical history: Unknown Patient is 68-year-old female who was brought to the hospital from [facility] for higher level of care. Patient was initially treated facility for shortness of breath and was transferred to our hospital. During initial ED evaluation patient found to be tachypneic with severe respiratory failure, atrial fibrillation. Initially patient required oxygenation via non- rebreather mask however patient intubated to protect airway. Patient started on IV antibiotic, requiring vasopressor and amiodarone drip initially. With further evaluation chest ultrasound showed bilateral pleural effusion, CT scan of chest and abdomen was performed which showed partially loculated right pleural effusion and consolidation in right middle and lower lobe. Patient also found to have right hydronephrosis with 1.9 cm calculus into right UPJ. Radiologist performed right-sided thoracentesis which removed 250 mL of fluid. L patient was placed with right-sided chest tube for loculated empyema. Patient underwent right thoracoscopy with evacuation empyema with insertion of chest tube. Patient was extubated on April 16/2024. Patient was reintubated back given possible STEMI and transferred to left heart catheterization. Social Contact Worker did angioplasty for complete total occlusion of mid LAD. Started on heparin drip, aspirin and Plavix. Patient continued to have x-ray findings with right lower lobe opacity. Continued on antibiotic. Continued require vasopressors, chest type continued to drain. No air leak. ROS: Not obtained as patient is intubated Today patient was seen and examined at bedside. Patient underwent trach collar trial today. Patient tolerated for 4-5 hours. Patient desaturated. Patient put her back on ventilator. Otherwise patient denied any other complaints. Patient is off sedation. No other complaints. Objective vital signs Vital Sign Date Time Temp Pulse Resp B/P (MAP) Pulse Ox O2 Delivery O2 Flow Rate FiO2 05/05/24 16:41 98 31 108/49 (68) 99 30 05/05/24 12:30 98.4 98.4 05/05/24 08:15 Mechanical Ventilator+ 05/04/24 18:18 8 Total Intake and Output 05/04/24 05/04/24 05/05/24 15:00 23:00 07:00 Intake Total 330 ml 602.5 ml Output Total 400 ml 370 ml Balance -70 ml 232.5 ml medications Current Medications Medications Dose Ordered Sig/Destini Route Start Time Stop Time Status Last Admin Dose Admin Heparin Sodium/ Dextrose 250 ml @ 18 mls/hr [id number] IV 03/31/24 23:45 UNV Midazolam HCl 50 ml @ 1 mls/hr Q24H IV 04/01/24 01:30 05/01/24 03:42 5 MLS/HR Albumin Human 100 ml @ 100 mls/hr KIRAN PRN IV 04/03/24 07:00 Sodium Chloride 10 ml QSHIFT@ IV 04/09/24 22:00 05/05/24 10:34 10 ML Iron Sucrose 110 ml @ 110 mls/hr DAILY@1200 IV 04/10/24 12:00 Hold 04/19/24 13:25 110 MLS/HR Amiodarone HCl 200 mg Q12HR PO 04/10/24 22:00 UNV Albuterol 2.5 mg Q4HR NEB 04/16/24 18:00 05/05/24 14:40 2.5 MG Ipratropium [place] 0.5 mg Q4HR NEB 04/16/24 18:00 05/05/24 14:40 0.5 MG Budesonide 0.5 mg BID NEB 04/16/24 22:00 05/05/24 06:38 0.5 MG Aspirin 81 mg DAILY PO 04/22/24 10:00 05/05/24 10:35 81 MG Piperacillin Sod/ Tazobactam Sod 100 ml @ 25 mls/hr Q8H IV 04/22/24 00:00 05/05/24 15:38 25 MLS/HR Pantoprazole Sodium 40 mg DAILY IV 04/22/24 10:00 05/05/24 10:34 40 MG Norepinephrine Bitartrate 250 ml @ 1.875 mls/ hr Q24H IV 04/28/24 18:45 05/01/24 00:34 5.7 MLS/HR Purified Water 200 ml TID GT 05/01/24 14:00 05/05/24 14:28 200 ML Amiodarone HCl 200 mg HS PO 05/02/24 22:00 05/04/24 21:51 200 MG Enteral Nutritional Formula 1,000 ml 60ML/HR GT 05/02/24 12:45 05/04/24 19:55 1,000 ML Enoxaparin Sodium 40 mg DAILY SC 05/03/24 10:00 05/05/24 10:34 40 MG Potassium Chloride 100 ml @ 50 mls/hr Q2H IV 05/04/24 08:00 05/04/24 11:59 UNV Acetylcysteine 200 mg Q8HR NEB 05/05/24 14:00 05/05/24 14:41 200 MG Fentanyl Citrate 250 ml @ 2.5 mls/hr Q24H IV 05/05/24 15:00 Examination General: Patient is of sedated, alert and oriented. HEENT: Normocephalic, atraumatic, moist mucous membranes Respiratory/pulmonary: Presence of two chest tube with connection to drainage. No air leak. Cardiovascular: Sinus rhythm, no murmur, no elevation of JVD. Abdomen: Abdomen slightly distended, there is no pain to palpation in any of the abdominal quadrants, no palpable masses. Extremities: There is minimal swelling in the lower extremities bilaterally. Peripheral Pulses: 3+ Radial (R). 3+ Radial (L). 3+ Dorsalis pedis (R). 3+ Dorsalis pedis(L) Skin: There is dry skin in bilateral lower extremities with scales and excoriations. Neurological: Cranial now intake. laboratory and microbiology Laboratory Tests 05/05/24 03:27 Test 05/05/24 03:27 Range/Units Serum Glucose 99 74-106 mg/dL Microbiology Date/Time Source Procedure Growth Status 05/02/24 14:00 Stool Stool Culture - Final Complete 05/02/24 14:00 Stool Shiga Toxin I & II - Final Complete 04/29/24 08:17 Pleural Fluid Gram Stain - Final Complete 04/29/24 08:17 Pleural Fluid Anaerobic Culture - Final Complete 04/29/24 08:17 Pleural Fluid Aerobic Culture - Final Complete 04/22/24 18:03 Urine - [place] Urine Culture - Final Yeast, not Arlet albicans Complete 04/22/24 15:16 Blood Blood Culture - Final NO GROWTH AFTER 5 DAYS OF INCUBATION. Complete 04/18/24 15:02 Sputum Gram Stain - Final Complete 04/18/24 15:02 Respiratory Culture - Final Yeast, not Arlet albicans Complete 04/01/24 11:19 Nose MRSA Screen - Final Complete Problem List/Assessment/Plan Problem List/Assessment/Plan Neurology Off sedation. Respiratory Acute hypoxic respirtory failure likel due to right-sided pleural effusion/empyema and consolidation on right middle and lower lobe -on mechanical ventilation: Respiratory rate 16, tidal volume 500, FiO2 30%, peep 5 cm H2O -presence of two chest tube: Minimal drainage, no air leak. -chest x-ray on 04/22/2022: Right-sided pleural effusion, right lower lobe opacification. -IV antibiotic with Zosyn -CT of the chest and abdomen showed moderate partial loculated right pleural effusion and consolidation on right middle/lower lobes. Mild cardiomegaly and interstitial pulmonary edema. It also showed right hydronephrosis with 1.9 cm calculus into the right UPJ. There is also a 2.6 cm staghorn appearing calculus causing mid to lower pole left hydronephrosis. -Respiratory culture: Yeast, not Arlet on 04/17/2024. Repeat culture pending. -CT chest(04/22/24):1. Moderate intermediate density right perinephric fluid extending into the bilateral extrarenal pelvis and also to a lesser extent in the peritoneal cavity, which could reflect retroperitoneal hematoma. Evaluation for active bleeding limited on this examination. 2. Moderate partially loculated right pleural effusion with a right thoracostomy tube terminating in the anterior medial right upper lobe. 3. Development of a small amount of air in the right pleural space at the level of the right middle lobe concordant with pneumothorax. 4. Bilateral renal calculi with a staghorn appearing calculus on the left. 5. Dependent consolidations of the hwtex-jykaqed-qudg-left lower lobes which could reflect atelectasis and/or pneumonia (which can be on the basis of aspiration. 6. Mild cardiomegaly, mild aortic valve calcifications and moderate coronary artery calcifications. Mild Interstitial pulmonary edema. -Underwent tracheostomy (04/23/24) -Surgical(04/29/24): Right thoracotomy, evacuation of right empyema. Irrigation and drainage of right chest cavity. -underwent trach collar trial as well. Continued tomorrow as well. -plan for LTAC transfer Septic shock in the setting of loculated right-sided pleural effusion and pneumonia -continue management of acute respiratory failure likely due to empyema. -Off vasopressor - continue zosyn -Respiratory culture positive for yeast on 04/17/2024.: DC micafungin. S/P Tracheostomy (04/23/24) Cardiology Acute on chronic systolic/diastolic heart failure -echocardiogram is showing an LVEF of 55-60% with increased RVSP at 48 mmHg and no pericardial effusion -Continue monitor I/O -repeat x ray In AM NSTEMI type II likely due to above -continue current management. 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 s/p balloon angioplasty with minimal / partial result -Aspirin Atrial fibrilation with RVR: Rate controlled -continue amiodarone 200 mg p.o. b.i.d. -Cardiology on board -Not on anticoagulation Nephrology Hypernatremia :Improved -repeat sodium level in a.m. -Free water :200ml GT TID Bilateral hydronephrosis with left-sided staghorn calculi and right UVJ calculi -CT scan of the chest and abdomen showed right hydronephrosis with 1.9 cm calculus into the right UPJ, there was also a 2.6 cm staghorn appearing calculus causing mid to lower pole left hydronephrosis. -nephrology on board -drainage with Whipple catheter. -continue I/O monitoring CHRISTOPH due to VMN initially likely in setting of septic shock: Resolved -most likely secondary to bilateral renal calculi -nephrology and urology on board -monitor kidney function Hypokalemia -replenish Hematogy Normocytic anemia:Stable -2 Unit of PRBCS given Nutrition Nepro 20 mL/hour via G-tube., target 30 ml/hr Lines: Right upper arm PICC line: Placed on 04/09/2024 PUD prophylaxis: Protonix DVT prophylaxis: Lovenox Plan to continue current management with trach collar trial. Manage chest tube as per surgery. Plan for LTAC transfer. Goals of care discussed with the daughter and brother at bedside for >31min by Dr. Perez previously Critical time spent > [address] min Plan discussed with Dr Perez Plan discussed with: Patient, Son (RN), Other My Orders My Orders Orders - JUAN VAZQUEZ RESIDENT Procedure Category Date Status Time Acetylcysteine PHA 05/05/24 In Process Inhalation 20% 14:00 Fentanyl Drip PHA 05/05/24 In Process 2500mcg/250mlns 15:00 Dietary Evaluation Review Comments: 1) If GI is accessible consider Nepro 1.8 @ 30 ml/hr goal rate as tolerated with current rate of propofol on board. 2) If pt remains NPO >7 days consider TPN to meet at least 75% of estimated needs 3) If pt continues to receive HD, advance pt diet when medically feasible to a Renal Standard diet modified per SHELL SORTER recommendations 4) If HD is discontinued and GFR is within normal range, advance pt diet to a Regular diet, modified per SHELL SORTER recommendations 5)If HD is discontinued and GFR lies within STG 1-4, advance pt diet to a Renal Specific K2,lowphos,HECTOR,2gmNa,80gPro diet 6) If HD is discontinued and if GFR returns to normal levels then ALEXANDRA 1 pkt BID with meals may be considered to aid with wound healing 7) Continue current plan of care Expected Outcomes/Goals: 1) Pt to receive nutrition support within 7 days of NPO status 2) Pt labs to improve 3) Pt diet to advance 4) F/U in 2-3 days Date of Service: May 05, 2024 Billing Provider: LAURIE JONES MD Common Visit Codes: [id number] CARE 30-74 MIN JUAN VAZQUEZ May 05, 2024 17:02 LAURIE JONES MD May 06, 2024 12:43
[2024-05-06] VITALS (51 sets, daily range): BP systolic 92–117; BP diastolic 32–67; PULSE 77–93; RESP 15–34; TEMP 98–98.3; O2SAT 95–100
--- NOTE | 2024-05-06 06:06 | DVHPN2 ---
Progress Note - Dictate Date Seen: May 06, 2024 Has the PT tested + for MRSA If YES, has PT been informed?: No Medical Necessity Reason Pt with a Central, PICC or Fol: Yes The following are medically ne: Central Line, Whipple Catheter Reason for whipple catheter: Strict I&O vital signs Vital Sign Date Time Temp Pulse Resp B/P (MAP) Pulse Ox O2 Delivery O2 Flow Rate FiO2 05/06/24 05:00 77 25 110/41 (64) 98 05/06/24 04:00 Mechanical Ventilator+ 30 30 05/06/24 04:00 98.3 98.3 05/04/24 18:18 8 Total Intake and Output 05/05/24 05/05/24 05/06/24 15:00 23:00 07:00 Intake Total 125 ml 400 ml 100 ml Output Total 385 ml Balance 125 ml 15 ml 100 ml medications Current Medications Medications Dose Ordered Sig/Destini Route Start Time Stop Time Status Last Admin Dose Admin Heparin Sodium/ Dextrose 250 ml @ 18 mls/hr [id number] IV 03/31/24 23:45 UNV Midazolam HCl 50 ml @ 1 mls/hr Q24H IV 04/01/24 01:30 05/01/24 03:42 5 MLS/HR Albumin Human 100 ml @ 100 mls/hr KIRAN PRN IV 04/03/24 07:00 Sodium Chloride 10 ml QSHIFT@ IV 04/09/24 22:00 05/05/24 22:08 10 ML Iron Sucrose 110 ml @ 110 mls/hr DAILY@1200 IV 04/10/24 12:00 Hold 04/19/24 13:25 110 MLS/HR Amiodarone HCl 200 mg Q12HR PO 04/10/24 22:00 UNV Albuterol 2.5 mg Q4HR NEB 04/16/24 18:00 05/06/24 02:02 2.5 MG Ipratropium [place] 0.5 mg Q4HR NEB 04/16/24 18:00 05/06/24 02:02 0.5 MG Budesonide 0.5 mg BID NEB 04/16/24 22:00 05/05/24 22:36 0.5 MG Aspirin 81 mg DAILY PO 04/22/24 10:00 05/05/24 10:35 81 MG Piperacillin Sod/ Tazobactam Sod 100 ml @ 25 mls/hr Q8H IV 04/22/24 00:00 05/05/24 23:40 25 MLS/HR Pantoprazole Sodium 40 mg DAILY IV 04/22/24 10:00 05/05/24 10:34 40 MG Norepinephrine Bitartrate 250 ml @ 1.875 mls/ hr Q24H IV 04/28/24 18:45 05/01/24 00:34 5.7 MLS/HR Purified Water 200 ml TID GT 05/01/24 14:00 05/05/24 22:08 200 ML Amiodarone HCl 200 mg HS PO 05/02/24 22:00 05/05/24 22:07 200 MG Enteral Nutritional Formula 1,000 ml 60ML/HR GT 05/02/24 12:45 05/04/24 19:55 1,000 ML Enoxaparin Sodium 40 mg DAILY SC 05/03/24 10:00 05/05/24 10:34 40 MG Potassium Chloride 100 ml @ 50 mls/hr Q2H IV 05/04/24 08:00 05/04/24 11:59 UNV Acetylcysteine 200 mg Q8HR NEB 05/05/24 14:00 05/05/24 22:37 200 MG Fentanyl Citrate 250 ml @ 2.5 mls/hr Q24H IV 05/05/24 15:00 laboratory and microbiology Laboratory Tests 05/05/24 03:27 Test 05/05/24 03:27 Range/Units Serum Glucose 99 74-106 mg/dL Assessment/Plan Off Levophed In the middle of Oct: There was question about EKG showing STEMI. Patient was intubated again by primary team and taken to Assistant Health Educator. s/p Cardiac cath (on 04/17/2024) Was found to have SUPERINTENDENT MEASUREMENT of mid LAD (considered old) with full of thrombus. s/p balloon angioplasty with minimal / partial result s/p thoracoscopy and chest tube placement Patient is a 68-year-old female who was transferred from [facility]. She originally presented to [facility] for shortness of breath ongoing for few days. She is intubated and is being managed in ICU. Information was obtained by reviewing the chart and communicating with staff. Reportedly, she presented with respiratory failure to [facility] (oxygen saturation was 88%) and over there was found to have white blood cell count of 26.6, hemoglobin of 11.1, creatinine of 5.6, potassium of 5.6 and troponin of 1.01. She was given 365 mg of aspirin in [facility]. She did have an episode of atrial fibrillation with RVR with questionable ST changes and was transferred to our facility for further care. She was also found to have right pleural effusion in [facility] and was diagnosed with non-STEMI. s/p tracheostomy, more alert Obese. Mucosa is pale. Scattered rhonchi in the lungs is heard. Cardiac: Regular, no thrill/gallop. Abdomen is soft with increased bowel sounds. There is no gross mass. Extremities reveal 1+ edema bilaterally. Available past medical history includes obesity and questionable history of psoriasis. WBC: 25.3 - 23.7 - 20.2 - 20.5 - 17.6 - 18.4 - 19.2 - 19.4 - 22.2 - 16.4 - 16.1 - 19.5 - 14.7 - 12.3 - 9.8 - 10.0 - 8.3 - 9.2 - 10.2 - 11.4 - 10.3 - 12.0 - 13.8 - 16.3 - 18.0 - 18.2 - 16.6 - 15.6 - 11.7 - 9.8 - 9.1 - 11.4 - 12.3 - 15.7 - 15.3 - 14.7 - 11.1 - 11.0 - 11.9 - 13.9 Hemoglobin: 10.8 - 9.1 - 8.5 - 8.4 - 8.8 - 8.6 - 8.9 - 8.1 - 8.4 - 8.1 - 8.1 - 8.2 - 8.0 - 7.4 - 7.4 - 7.7 - 7.1 - 8.0 - 7.5 - 8.8 - 7.1 - 9.0 - 8.9 - 9.0 - 8.4 - 8.4 - 8.4 - 8.1 - 8.2 - 8.0 - 8.0 - 8.0 - 7.8 - 7.1 - 10.8 - 9.0 - 8.8 - 8.5 - 9.2 - 9.1 - 9.1 D-dimer: 3.62 Creatinine: 5.67 - 5.78 - 5.41 - 4.92 - 4.55 - 4.68 - 4.71 - 4.64 - 4.48 - 3.83 - 3.66 - 3.65 - 3.25 - 2.82 - 2.41 - 2.34 - 2.01 - 1.90 - 1.60 - 1.83 - 1.73 - 1.74 - 1.76 - 1.78 - 1.82 - 1.94 - 1.99 - 1.93 - 1.95 - 2.39- 2.09 - 1.81 - 1.54 - 1.41 - 1.32 - 1.31 - 1.17 - 1.09 - 0.97 - 0.94 - 0.93 - 0.89 Potassium: 6.0 - 6.3 - 6.1 - 6.0 - 5.3 - 5.0 - 4.9 - 4.8 - 5.1 - 5.4 - 4.9 - 5.3 - 4.8 - 4.5 - 4.7 - 4.3 - 4.2 - 3.9 - 4.6 - 3.8 - 3.5 - 3.3 - 3.6 - 3.6 - 4.0 - 3.5 - 4.0 - 3.7 - 3.6 - 3.5 - 3.4 - 4.0 - 3.9 - 3.0 - 3.4 - 3.3 - 3.6 - 3.3 - 3.0 - 4.0 - 3.5 - 3.3 - 3.1 - 3.5 - 3.3 - 3.8 Lactic acid: 3.3 - 3.4 - 2.3 - 2.5 - 2.5 - 2.7 - 2.4 - 2.5 - 3.1 - 2.3 - 1.7 - 1.7 TSH: 1.71 BNP: 274.69 - 1944.81 - 373.79 Troponin (high sensitive): 4661 - 5376 - 6912 - 5207 - 916 - 1781 Blood culture: positive Pleural fluid culture: E-coli Digoxin level: 2.09 Stool OB: positive Chest x-ray revealed: IMPRESSION: 1. Moderate right pleural effusion. 2. Cardiomegaly with mild pulmonary vascular congestion bilaterally. Repeat chest x-ray revealed: IMPRESSION: 1. Endotracheal tube and gastric tubes in place as described. 2. Right IJ central venous catheter projects over the lower SVC. 3. Mild cardiomegaly and prominence of the pulmonary vasculature. 4. Moderate to large right pleural effusion. Repeat chest x-ray revealed: IMPRESSION: Similar lung aeration with large right pleural effusion. No pneumothorax seen. Stable lines and tubes. Repeat chest x-ray revealed: IMPRESSION: Similar lung aeration with large right pleural effusion. No pneumothorax seen. Stable lines and tubes. Repeat chest xry revealed: Lines and tubes: ET in the mid thoracic trachea. NG crosses midline. Right CVC is stable. Left HD catheter projects over the mediastinum. Cardiomediastinal silhouette: Enlarged Pulmonary vasculature: prominent Lung expansion: low Lung airspace: patchy bilateral airspace opacity. Lung interstitium: normal Pleura: Similar large right effusion. Pneumothorax: no Bones: Unremarkable Other: no IMPRESSION: Lines and tubes, as above. Similar lung aeration bilaterally with a right pleural effusion and patchy airspace opacities. Repeat chest xry revealed: IMPRESSION: 1. Stable position of the support lines and tubes. 2. Interstitial and alveolar opacities. Repeat chest xry revealed: IMPRESSION: Unchanged multifocal airspace disease. Small to moderate right pleural effusion ; possibly loculated. Repeat chest xry revealed: IMPRESSION: Lines and tubes in satisfactory position. No significant interval change. Repeat chest xry revealed: IMPRESSION: 1. Support lines and tubes in appropriate position. 2. Pulmonary vascular congestion. 3. Bilateral pleural effusions, right greater than left. Repeat chest xry revealed: IMPRESSION: 1. Support lines and tubes in appropriate position. 2. Pulmonary vascular congestion. 3. Bilateral pleural effusions, right greater than left. Repeat chest xry revealed: IMPRESSION: Interval placement of right chest tube which projects deep into the right hilar region. Repeat chest xry revealed: IMPRESSION: No interval change Repeat chest xry revealed: Findings/IMPRESSION: Right IJ CVC terminating in the SVC. Endotracheal tube projected 5 cm superior to the mili. Enteric tube projected below the GE junction. Right-sided PICC projects terminating near the cavoatrial junction. Small bilateral pleural effusions and/or atelectasis with superimposed infection not excluded. Repeat chest xry revealed: MPRESSION: 1. Bilateral pleural effusions and airspace disease right greater than left. Repeat chest xry revealed: IMPRESSION: 1. Endotracheal tube terminates 6.0 cm above the mili, previously 3.1 cm above the mili. Otherwise, No significant interval change. Repeat chest xry revealed: IMPRESSION: 1. Endotracheal tube terminates 6.0 cm above the mili, previously 3.1 cm above the mili. Otherwise, No significant interval change. Repeat chest xry revealed: IMPRESSION: Lines and tubes in satisfactory position. No significant interval change. Repeat chest xry revealed: IMPRESSION: Lines and tubes in satisfactory position. No significant interval change. Repeat chest xry revealed: IMPRESSION: Lines and tubes in satisfactory position. No significant interval change. Repeat chest xry revealed: IMPRESSION: Lines and tubes in satisfactory position. No significant interval change. Repeat chest xry revealed: IMPRESSION: Endotracheal tube projects in appropriate position. Otherwise no significant change Repeat chest xry revealed: FINDINGS: Lines and Tubes: Right PICC and enteric catheter and right chest tube in satisfactory position. Endotracheal tube projects 3.8 cm above the level of the mili. Lungs: Bibasilar opacities. Pleura: Possible small right pleural effusion. No pneumothorax. Cardiomediastinal contours: Unremarkable Bones: Unremarkable IMPRESSION: No significant change compared to prior exam. Repeat chest xry revealed: IMPRESSION: Lines and tubes in satisfactory position. No significant interval change. Repeat chest xry revealed: IMPRESSION: 1. Bibasilar opacities representing pleural effusions and airspace disease similar to prior study. 2. Satisfactory position of the support lines and tubes. Repeat chest xry revealed: IMPRESSION: 1. Stable appearance of the chest. Unchanged position of the support lines and tubes. Repeat chest xry revealed: Lines and Tubes: - Tracheostomy in satisfactory position - Enteric catheter in satisfactory position - Right PICC (Peripherally Inserted Central Catheter) in satisfactory position - Right chest tube in satisfactory position Lungs: - Diffuse pulmonary vascular congestion Pleura: - Possible small bilateral pleural effusions Cardiomediastinal contours: - Unremarkable Bones: Unremarkable IMPRESSION: Tracheostomy in satisfactory position. No other significant interval change. Repeat chest xry revealed: IMPRESSION: 1. Stable pulmonary congestion, patchy right mid to lower lung zone opacities. 2. Stable position of the support lines and tubes. Repeat chest xry revealed: IMPRESSION: Lines and tubes in satisfactory position. No significant interval change. Repeat chest xry revealed: IMPRESSION: Lines and tubes in satisfactory position. No significant interval change. Repeat chest xry revealed: IMPRESSION: Examination is markedly limited by patient positioning. Tracheostomy tube tip appears at the thoracic inlet likely within the trachea. There is a right chest tube right PICC line with tip at the superior vena cava. Bilateral effusions and moderate pulmonary vascular congestion as well as cardiomegaly. No pneumothorax. Repeat chest xry revealed: IMPRESSION: 1. Stable position of the support lines and tubes. 2. Bibasilar opacities similar to prior study. Repeat chest xry revealed: IMPRESSION: 1. Support lines and tubes similar to the prior exam. 2. No significant change in bilateral airspace disease. Repeat chest xry revealed: IMPRESSION: 1. No significant change in position of the support lines and tubes. 2. Slightly improved aeration in the right lung. Repeat chest xry revealed: IMPRESSION: Increased congestion. No other significant interval change. Repeat chest xry revealed: IMPRESSION: Lines and tubes in satisfactory position. No significant interval change. Repeat chest xry revealed: IMPRESSION: Lines and tubes in satisfactory position. No significant interval change. Repeat chest xry revealed: IMPRESSION: Lines and tubes in satisfactory position. No significant interval change. Repeat chest xry revealed: IMPRESSION: Lines and tubes in satisfactory position. No significant interval change. Repeat chest xry revealed: IMPRESSION: 1. No significant change in position of the support lines and tubes. 2. Bilateral opacities similar to prior study. Renal ultrasound revealed: IMPRESSION: 1. Right kidney measures 13.4 cm. Decreased cortical thickness on the right. 2. Left kidney measures 10.2 cm. 3. No hydronephrosis on the right grade 1 hydronephrosis on the left. 4. Bilateral renal calculi. CT scan of the chest/abdomen and pelvis revealed: IMPRESSION: 1. Moderate partially loculated right pleural effusion and consolidations in the right middle and lower lobes which could be pneumonia and/or atelectasis. 2. Mild cardiomegaly, mild interstitial pulmonary edema, and body wall edema. 3. There is a 1.9 cm calculus in the right UPJ with mild right hydronephrosis 4. There is a 2.6 cm somewhat staghorn appearing calculus in the left renal pelvis and UPJ causing mild predominantly mid to lower pole left hydronephrosis. Mild soft tissue stranding about the left renal pelvis which could be due to obstruction or superimposed infection. Correlate with urinalysis. 5. Partial duplication of the left renal collecting system without hydronephrosis in the upper pole. 6. Moderate right perinephric, right retroperitoneal, and bilateral extraperitoneal pelvis low-density fluid and very mild left retroperitoneal low-density fluid. This could be fluid related to bilateral renal obstructions and forniceal ruptures versus evolved retroperitoneal hematoma. This is suboptimally evaluated without intravenous contrast. 7. Fluid-filled small and large bowel loops which may be physiologic or related to enterocolitis and could be manifesting as loose stools and/or diarrhea. 8. Prominent endometrium measuring at least 2.8 cm, suboptimally evaluated by CT. Recommend characterization with nonemergent pelvic ultrasound if clinically indicated. 9. Mild hepatosplenomegaly. 10. Moderate three-vessel calcified coronary artery disease and mild aortic valve calcification. 11. Right IJ central venous catheter in place terminating in the low SVC. 12. Small soft tissue stranding in the right supraclavicular neck which could be blood products. 13. Endotracheal tube terminates above the mili. Repeat CT of chest / abdomen and pelvis revealed: IMPRESSION: 1. Moderate intermediate density right perinephric fluid extending into the bilateral extrarenal pelvis and also to a lesser extent in the peritoneal cavity, which could reflect retroperitoneal hematoma. Evaluation for active bleeding limited on this examination. 2. Moderate partially loculated right pleural effusion with a right thoracostomy tube terminating in the anterior medial right upper lobe. 3. Development of a small amount of air in the right pleural space at the level of the right middle lobe concordant with pneumothorax. 4. Bilateral renal calculi with a staghorn appearing calculus on the left. 5. Dependent consolidations of the [id number]-left lower lobes which could reflect atelectasis and/or pneumonia (which can be on the basis of aspiration. 6. Mild cardiomegaly, mild aortic valve calcifications and moderate coronary artery calcifications. Mild Interstitial pulmonary edema. CT of the head revealed: IMPRESSION: 1. No acute intracranial abnormality. 2. Generalized cerebral volume loss and mild chronic microvascular ischemic change. 3. Partially imaged endotracheal tube. Chest ultrasound revealed: Findings/Impression: There is a trace bilateral pleural effusion. Thoracentesis: FINDINGS: Moderate size, complex and septated right pleural effusion. Aspirated fluid is thick and green in consistency. IMPRESSION: Right thoracentesis with 250 mL removed for laboratory analysis. EKG in [facility] revealed sinus tachycardia, poor R-wave progression old inferior wall AZ. later EKG revealed atrial fibrillation with RVR. Repeat EKGs questioned STEMI. but resolved later. Telemetry reveals sinus rhythm, occasions of A-fib with RVR, SVT Echocardiogram revealed: Technically limited study secondary to poor acoustic windows. Left ventricle: Left ventricle was normal-sized. Mild concentric left ventricular hypertrophy was seen. LVEF was 55-60%. No gross wall motion abnormality was observed, but its presence can not be ruled out on the basis of this study. Right ventricle is mildly dilated with normal systolic function. Left atrium was mildly dilated. Right atrium was normal-sized. Aortic valve was trileaflet. There was no aortic insufficiency. There was aortic sclerosis with no stenosis. There was trivial mitral/tricuspid regurgitation. Pulmonary valve was not well visualized. Right ventricular systolic pressure was assessed around 48 mm Hg. There was no pericardial effusion. Left heart cath revealed: One-vessel coronary artery disease, SUPERINTENDENT MEASUREMENT of mid LAD, Attempted to open up the LAD SUPERINTENDENT MEASUREMENT, partially/minimally successful (status post balloon angioplasty). LVEF of 25% (dilated LV). Cardiac suggestion for management: Dual antiplatelet therapy (loaded with aspirin and Plavix). Guideline directed medical therapy for systolic heart failure Repeat echo revealed: Technically limited study secondary to poor acoustic windows. Left ventricle: Concentric left ventricular hypertrophy was seen anteroapical hypokinesia was seen. The LVEF was around 40%. Right ventricular was normal sized with normal systolic function. Atria were not well-visualized. Aortic valve: Aortic valve was not well visualized. There was no aortic stenosis/insufficiency. Mild mitral/tricuspid regurgitation was observed. Pulmonary valve was not well visualized. Right ventricular systolic pressure was assessed around 35 mm Hg. There was no pericardial effusion. Patient is a 68-year-old morbidly obese patient who presented with respiratory failure to the hospital. Presentation is in favor of sepsis/septic shock. Multiorgan failure is observed. She is intubated and on vent support. She is on multiple pressor support. Life findings are in favor of acute renal failure. She also is known to have nephrolithiasis with history of staghorn calculi. Cardiac-ceballos, the patient did have episode of atrial fibrillation with RVR. She is found to have increased troponin. Presentation questions non-STEMI and possibly type 2 ischemia. Recognizing the presentation, ischemic workup should be postponed after clinical stability (only if patient recovers higher brain function). Is being followed by Nephrology. Had episodes of tachyarrhythmia. Loaded with Digoxin. Positive cultures. Repeated a-fib with RVR. Was evaluated by Interventional Cardiology machine long goods helper for STEMI (not considered STEMI). As there was repeated EKG changes in favor of STEMI, patient was taken to candle extrusion machine operator: Was found to have SUPERINTENDENT MEASUREMENT of mid LAD (considered old) with full of thrombus. s/p balloon angioplasty with minimal / partial result. s/p repeat right thoracotomy and right lung decortication and chest tube placement. Septic shock Multiorgan failure Acute respiratory failure on vent support Acute renal failure Nephrolithiasis Staghorn calculi Hydronephrosis Abnormal troponin, non-STEMI Atrial fibrillation with RVR Paroxysmal AFib Acute heart failure, diastolic Hepatosplenomegaly Pleural effusion Status post thoracentesis Morbid obesity s/p Cardioversion for A-fib with RVR s/p thoracoscopy and chest tube placement CAD: SUPERINTENDENT MEASUREMENT of mid LAD (considered old) with full of thrombus. s/p balloon angioplasty with minimal / partial result s/p tracheostomy s/p repeat thoracotomy and right lung decortication Cardiac suggestion for management: Manage in ICU Follow-up electrolytes and kidney function tests and correct abnormalities Pressure support to keep mean arterial pressure above 65 Amiodarone oral/N mg HS Daily aspirin (81 mg daily) s/p thoracoscopy and chest tube placement s/p repeat thoracotomy, right lung decortication and chest tube placement. s/p tracheostomy IV metoprolol PRN for a-fib with RVR episodes. Sepsis workup and management as per primary team Evaluation and management of respiratory failure as per primary team/Pulmonary Evaluation and management of nephrolithiasis/hydronephrosis as per primary/Urology Evaluation and management of acute renal failure as per Nephrology Further evaluation and management as per above and clinical course. A total of 75 minutes was spent reviewing the patient record, examining the patient, making a diagnostic and therapeutic plan, discussing this plan with medical personnel, following up on diagnostic studies and following the patient for clinical stability excluding any and all procedures. At least 50% of this time was spent in direct, [id number] contact. Thank you for allowing me to participate in this patient's care. Further recommendations will depend on patient's clinical course. Please do not hesitate to contact me if you have any questions or concerns. This medical document was created using electronic medical record system with [employer] computerized dictation system. Although this document has been carefully reviewed, there may still be some phonetic and typographical errors. These areas are purely typographical due to the imperfection of the software programs, and do not reflect any compromise in the patient's medical care. Dietary Evaluation Review Comments: 1) If GI is accessible consider Nepro 1.8 @ 30 ml/hr goal rate as tolerated with current rate of propofol on board. 2) If pt remains NPO >7 days consider TPN to meet at least 75% of estimated needs 3) If pt continues to receive HD, advance pt diet when medically feasible to a Renal Standard diet modified per SEARCH ENGINE OPTIMIZER recommendations 4) If HD is discontinued and GFR is within normal range, advance pt diet to a Regular diet, modified per SEARCH ENGINE OPTIMIZER recommendations 5)If HD is discontinued and GFR lies within STG 1-4, advance pt diet to a Renal Specific K2,lowphos,HECTOR,2gmNa,80gPro diet 6) If HD is discontinued and if GFR returns to normal levels then ALEXANDRA 1 pkt BID with meals may be considered to aid with wound healing 7) Continue current plan of care Expected Outcomes/Goals: 1) Pt to receive nutrition support within 7 days of NPO status 2) Pt labs to improve 3) Pt diet to advance 4) F/U in 2-3 days Plan discussed with: Other (nurse) HERMINIO JOHNSON MD May 06, 2024 06:06
[2024-05-06] MEDS: PSYLLIUM PWD 5.8GM PKG GT ONE (09:15)
[2024-05-06 09:39] LABS: Basophils # (auto) 0.1 10 ^3/uL (0-0.2); Chloride 112 mmol/L (98-107); Eosinophils # (auto) 0.5 10 ^3/uL (0-0.8); Hematocrit 30.1 % (36.0-46.0); Lymphocytes # (auto) 0.6 10 ^3/uL (0.4-5.4); Mean Corpuscular Volume 100.7 fL (80.0-100.0); Potassium 3.5 mmol/L (3.5-5.1); Sodium 141 mmol/L (136-145); White Blood Cell 11.4 10^3/uL (4.4-10.8)
[2024-05-06 09:40] LABS: Anion Gap 9 (5-15); Calcium 7.9 mg/dL (8.7-10.4); Carbon Dioxide 20 mmol/L (20-31)
[2024-05-06 09:41] LABS: Basophils % (auto) 0.7 % (0.0-2.0); Eosinophils % (auto) 4.8 % (0.0-7.0); Hemoglobin 9.1 g/dL (12.2-16.2); Lymphocytes % (auto) 5.6 % (10.0-50.0); Mean Corpuscular Hemoglobin 30.6 pg (28.0-32.0); Mean Corpuscular Hgb Conc. 30.4 g/dL (32.0-36.0); Monocytes # (auto) 0.4 10 ^3/uL (0-1.3); Monocytes % (auto) 3.6 % (0.0-12.0); Neutrophils # (auto) 9.7 10 ^3/uL (1.6-8.6); Neutrophils % (auto) 85.3 % (37.0-80.0); Platelet Count (auto) 143 10^3/uL (140-450); Red Blood Cells 2.98 10^6/uL (4.0-5.20); Red Cell Distribution Width 28.1 % (11.8-14.3)
[2024-05-06 09:45] LABS: BUN/Creatinine Ratio 19.3 (10.0-20.0); Blood Urea Nitrogen 16 mg/dL (9-23); Glucose 120 mg/dL (74-106)
[2024-05-06 10:56] LABS: Platelet Estimate Adequate
[2024-05-06 10:58] LABS: Anisocytosis Moderate; Macrocytosis Slight
--- NOTE | 2024-05-06 14:12 | DVHPNRES ---
Progress Note Date Seen: May 06, 2024 Resident Creating Document: JUAN VAZQUEZ RESIDENT Has the PT tested + for MRSA If YES, has PT been informed?: No Medical Necessity Reason Pt with a Central, PICC or Fol: Yes The following are medically ne: Central Line, Whipple Catheter Reason for whipple catheter: Strict I&O Subjective Review of Systems HPI: 68/female, past medical history: Unknown Patient is 68-year-old female who was brought to the hospital from [facility] for higher level of care. Patient was initially treated facility for shortness of breath and was transferred to our hospital. During initial ED evaluation patient found to be tachypneic with severe respiratory failure, atrial fibrillation. Initially patient required oxygenation via non- rebreather mask however patient intubated to protect airway. Patient started on IV antibiotic, requiring vasopressor and amiodarone drip initially. With further evaluation chest ultrasound showed bilateral pleural effusion, CT scan of chest and abdomen was performed which showed partially loculated right pleural effusion and consolidation in right middle and lower lobe. Patient also found to have right hydronephrosis with 1.9 cm calculus into right UPJ. Radiologist performed right-sided thoracentesis which removed 250 mL of fluid. L patient was placed with right-sided chest tube for loculated empyema. Patient underwent right thoracoscopy with evacuation empyema with insertion of chest tube. Patient was extubated on April 16/2024. Patient was reintubated back given possible STEMI and transferred to left heart catheterization. Master Data Analyst did angioplasty for complete total occlusion of mid LAD. Started on heparin drip, aspirin and Plavix. Patient continued to have x-ray findings with right lower lobe opacity. Continued on antibiotic. Continued require vasopressors, chest type continued to drain. No air leak. ROS: Not obtained as patient is intubated Today patient was seen and examined at bedside. Patient underwent trach collar trial today. Tolerating well. NO other night events. Objective vital signs Vital Sign Date Time Temp Pulse Resp B/P (MAP) Pulse Ox O2 Delivery O2 Flow Rate FiO2 05/06/24 12:00 98.2 92 28 117/67 (84) 100 98.2 05/06/24 10:00 Mechanical Ventilator+ 30 30 05/06/24 09:41 10.0 Total Intake and Output 05/05/24 05/05/24 05/06/24 15:00 23:00 07:00 Intake Total 125 ml 400 ml 680 ml Output Total 385 ml 32 ml Balance 125 ml 15 ml 648 ml medications Current Medications Medications Dose Ordered Sig/Destini Route Start Time Stop Time Status Last Admin Dose Admin Heparin Sodium/ Dextrose 250 ml @ 18 mls/hr [id number] IV 03/31/24 23:45 UNV Midazolam HCl 50 ml @ 1 mls/hr Q24H IV 04/01/24 01:30 05/01/24 03:42 5 MLS/HR Albumin Human 100 ml @ 100 mls/hr KIRAN PRN IV 04/03/24 07:00 Sodium Chloride 10 ml QSHIFT@,22 IV 04/09/24 22:00 05/06/24 10:20 10 ML Amiodarone HCl 200 mg Q12HR PO 04/10/24 22:00 UNV Albuterol 2.5 mg Q4HR NEB 04/16/24 18:00 05/06/24 09:41 2.5 MG Ipratropium [place] 0.5 mg Q4HR NEB 04/16/24 18:00 05/06/24 09:41 0.5 MG Budesonide 0.5 mg BID NEB 04/16/24 22:00 05/06/24 06:05 0.5 MG Aspirin 81 mg DAILY PO 04/22/24 10:00 05/06/24 10:20 81 MG Piperacillin Sod/ Tazobactam Sod 100 ml @ 25 mls/hr Q8H IV 04/22/24 00:00 05/06/24 08:30 25 MLS/HR Pantoprazole Sodium 40 mg DAILY IV 04/22/24 10:00 05/06/24 10:20 40 MG Norepinephrine Bitartrate 250 ml @ 1.875 mls/ hr Q24H IV 04/28/24 18:45 05/01/24 00:34 5.7 MLS/HR Purified Water 200 ml TID GT 05/01/24 14:00 05/06/24 06:00 200 ML Amiodarone HCl 200 mg HS PO 05/02/24 22:00 05/05/24 22:07 200 MG Enteral Nutritional Formula 1,000 ml 60ML/HR GT 05/02/24 12:45 05/04/24 19:55 1,000 ML Enoxaparin Sodium 40 mg DAILY SC 05/03/24 10:00 05/06/24 10:19 40 MG Potassium Chloride 100 ml @ 50 mls/hr Q2H IV 05/04/24 08:00 05/04/24 11:59 UNV Acetylcysteine 200 mg Q8HR NEB 05/05/24 14:00 05/06/24 06:05 200 MG Fentanyl Citrate 250 ml @ 2.5 mls/hr Q24H IV 05/05/24 15:00 Hydrocortisone 1 applic BID TOP 05/06/24 22:00 Examination General: Patient is of sedated, alert and oriented. HEENT: Normocephalic, atraumatic, moist mucous membranes Respiratory/pulmonary: Presence of two chest tube with connection to drainage. No air leak. Cardiovascular: Sinus rhythm, no murmur, no elevation of JVD. Abdomen: Abdomen slightly distended, there is no pain to palpation in any of the abdominal quadrants, no palpable masses. Extremities: There is minimal swelling in the lower extremities bilaterally. Peripheral Pulses: 3+ Radial (R). 3+ Radial (L). 3+ Dorsalis pedis (R). 3+ Dorsalis pedis(L) Skin: There is dry skin in bilateral lower extremities with scales and excoriations. Neurological: Cranial nerves intake. laboratory and microbiology Laboratory Tests 05/06/24 09:00 Test 05/06/24 09:00 Range/Units Serum Glucose 120 H 74-106 mg/dL Microbiology Date/Time Source Procedure Growth Status 05/02/24 14:00 Stool Stool Culture - Final Complete 05/02/24 14:00 Stool Shiga Toxin I & II - Final Complete 04/29/24 08:17 Pleural Fluid Gram Stain - Final Complete 04/29/24 08:17 Pleural Fluid Anaerobic Culture - Final Complete 04/29/24 08:17 Pleural Fluid Aerobic Culture - Final Complete 04/22/24 18:03 Urine - Whipple Port Urine Culture - Final Yeast, not Arlet albicans Complete 04/22/24 15:16 Blood Blood Culture - Final NO GROWTH AFTER 5 DAYS OF INCUBATION. Complete 04/18/24 15:02 Sputum Gram Stain - Final Complete 04/18/24 15:02 Respiratory Culture - Final Yeast, not Arlet albicans Complete 04/01/24 11:19 Nose MRSA Screen - Final Complete Problem List/Assessment/Plan Problem List/Assessment/Plan Neurology Off sedation. Respiratory Acute hypoxic respirtory failure likel due to right-sided pleural effusion/empyema and consolidation on right middle and lower lobe -on mechanical ventilation: Respiratory rate 16, tidal volume 500, FiO2 30%, peep 5 cm H2O -presence of two chest tube: Minimal drainage, no air leak. -chest x-ray on 04/22/2022: Right-sided pleural effusion, right lower lobe opacification. -IV antibiotic with Zosyn -CT of the chest and abdomen showed moderate partial loculated right pleural effusion and consolidation on right middle/lower lobes. Mild cardiomegaly and interstitial pulmonary edema. It also showed right hydronephrosis with 1.9 cm calculus into the right UPJ. There is also a 2.6 cm staghorn appearing calculus causing mid to lower pole left hydronephrosis. -Respiratory culture: Yeast, not Arlet on 04/17/2024. Repeat culture pending. -CT chest(04/22/24):1. Moderate intermediate density right perinephric fluid extending into the bilateral extrarenal pelvis and also to a lesser extent in the peritoneal cavity, which could reflect retroperitoneal hematoma. Evaluation for active bleeding limited on this examination. 2. Moderate partially loculated right pleural effusion with a right thoracostomy tube terminating in the anterior medial right upper lobe. 3. Development of a small amount of air in the right pleural space at the level of the right middle lobe concordant with pneumothorax. 4. Bilateral renal calculi with a staghorn appearing calculus on the left. 5. Dependent consolidations of the jmijb-oyoqgke-yzct-left lower lobes which could reflect atelectasis and/or pneumonia (which can be on the basis of aspiration. 6. Mild cardiomegaly, mild aortic valve calcifications and moderate coronary artery calcifications. Mild Interstitial pulmonary edema. -Underwent tracheostomy (04/23/24) -Surgical(04/29/24): Right thoracotomy, evacuation of right empyema. Irrigation and drainage of right chest cavity. -underwent trach collar trial as well. Continued tomorrow as well. -plan for LTAC transfer possible tomorrow Septic shock in the setting of loculated right-sided pleural effusion and pneumonia -continue management of acute respiratory failure likely due to empyema. -Off vasopressor - continue zosyn -Respiratory culture positive for yeast on 04/17/2024.: DC micafungin. S/P Tracheostomy (04/23/24) Cardiology Acute on chronic systolic/diastolic heart failure -echocardiogram is showing an LVEF of 55-60% with increased RVSP at 48 mmHg and no pericardial effusion -Continue monitor I/O -repeat x ray In AM NSTEMI type II likely due to above -continue current management. -CAD: SUPERINTENDENT CONSTRUCTION of mid LAD (considered old) with full of thrombus. s/p balloon angioplasty with minimal / partial result -Aspirin Atrial fibrilation with RVR: Rate controlled -continue amiodarone 200 mg p.o. b.i.d. -Cardiology on board -Not on anticoagulation Nephrology Hypernatremia :Improved -repeat sodium level in a.m. -Free water :200ml GT TID Bilateral hydronephrosis with left-sided staghorn calculi and right UVJ calculi -CT scan of the chest and abdomen showed right hydronephrosis with 1.9 cm calculus into the right UPJ, there was also a 2.6 cm staghorn appearing calculus causing mid to lower pole left hydronephrosis. -nephrology on board -drainage with Whipple catheter. -continue I/O monitoring CHRISTOPH due to VMN initially likely in setting of septic shock: Resolved -most likely secondary to bilateral renal calculi -nephrology and urology on board -monitor kidney function Hypokalemia -replenish Hematogy Normocytic anemia:Stable -2 Unit of PRBCS given Nutrition Nepro 20 mL/hour via G-tube., target 30 ml/hr Lines: Right upper arm PICC line: Placed on 04/09/2024 PUD prophylaxis: Protonix DVT prophylaxis: Lovenox Plan to continue current management with trach collar trial. Manage chest tube as per surgery. Plan for LTAC transfer tomorrow. Goals of care discussed with the daughter and brother at bedside for >31min by Dr. Perez previously Critical time spent > [address] Plan discussed with Dr Perez Plan discussed with: Patient, Other (Sister) My Orders My Orders Orders - JUAN VAZQUEZ RESIDENT Procedure Category Date Status Time Fentanyl Drip PHA 05/05/24 In Process 2500mcg/250mlns 15:00 Hydrocortone 1% PHA 05/06/24 In Process Topical Cream 22:00 Dietary Evaluation Review Comments: 1) If GI is accessible consider Nepro 1.8 @ 30 ml/hr goal rate as tolerated with current rate of propofol on board. 2) If pt remains NPO >7 days consider TPN to meet at least 75% of estimated needs 3) If pt continues to receive HD, advance pt diet when medically feasible to a Renal Standard diet modified per MEDICAL LABORATORY ASSISTANT recommendations 4) If HD is discontinued and GFR is within normal range, advance pt diet to a Regular diet, modified per MEDICAL LABORATORY ASSISTANT recommendations 5)If HD is discontinued and GFR lies within STG 1-4, advance pt diet to a Renal Specific K2,lowphos,HECTOR,2gmNa,80gPro diet 6) If HD is discontinued and if GFR returns to normal levels then ALEXANDRA 1 pkt BID with meals may be considered to aid with wound healing 7) Continue current plan of care Expected Outcomes/Goals: 1) Pt to receive nutrition support within 7 days of NPO status 2) Pt labs to improve 3) Pt diet to advance 4) F/U in 2-3 days Date of Service: May 06, 2024 Billing Provider: LAURIE JONES MD Common Visit Codes: 69495-[id number] CARE 30-74 MIN JUAN VAZQUEZ RESIDENT May 06, 2024 14:12 LAURIE JONES MD May 08, 2024 09:18
[2024-05-06] MEDS ORDERED: HYDROCORTONE 1% TOPICAL CREAM 30 GM TUBE TOP SCH (22:00)
--- NOTE | 2024-05-12 14:59 | DVHDSRES ---
Discharge Summary Date of Admission Resident Creating Document: JUAN VAZQUEZ RESIDENT Apr 01, 2024 at 05:04 Date of Discharge: May 06, 2024 Admitting Diagnosis shortness of breath Labs/Diagnostic Data: Laboratory Results Test 05/06/24 09:00 05/05/24 03:27 05/04/24 07:32 05/02/24 14:00 White Blood Count 11.4 10^3/uL (4.4-10.8) Red Blood Count 2.98 10^6/uL (4.0-5.20) Hemoglobin 9.1 g/dL (12.2-16.2) Hematocrit 30.1 % (36.0-46.0) Mean Corpuscular Volume 100.7 fL (80.0-100.0) Mean Corpuscular Hemoglobin 30.6 pg (28.0-32.0) Mean Corpuscular Hemoglobin Concent 30.4 g/dL (32.0-36.0) Red Cell Distribution Width 28.1 % (11.8-14.3) Platelet Count 143 10^3/uL (140-450) Mean Platelet Volume 7.5 fL (6.9-10.8) Neutrophils (%) (Auto) 85.3 % (37.0-80.0) Lymphocytes (%) (Auto) 5.6 % (10.0-50.0) Monocytes (%) (Auto) 3.6 % (0.0-12.0) Eosinophils (%) (Auto) 4.8 % (0.0-7.0) Basophils (%) (Auto) 0.7 % (0.0-2.0) Neutrophils # (Auto) 9.7 10 ^3/uL (1.6-8.6) Lymphocytes # (Auto) 0.6 10 ^3/uL (0.4-5.4) Monocytes # (Auto) 0.4 10 ^3/uL (0-1.3) Eosinophils # (Auto) 0.5 10 ^3/uL (0-0.8) Basophils # (Auto) 0.1 10 ^3/uL (0-0.2) Nucleated Red Blood Cells 0.0 % Platelet Estimate Adequate Anisocytosis (manual) Moderate Macrocytosis Slight Schistocytes Few Sodium Level 141 mmol/L (136-145) Potassium Level 3.5 mmol/L (3.5-5.1) Chloride Level 112 mmol/L (98-107) Carbon Dioxide Level 20 mmol/L (20-31) Anion Gap 9 (5-15) Blood Urea Nitrogen 16 mg/dL (9-23) Creatinine 0.83 mg/dL (0.550-1.02) Glomerular Filtration Rate Calc 78 mL/min (>90) BUN/Creatinine Ratio 19.3 (10.0-20.0) Serum Glucose 120 mg/dL (74-106) Calcium Level 7.9 mg/dL (8.7-10.4) Differential Total Cells Counted 100.0 (100) Neutrophils % (Manual) 83 (37.0-80.0) Band Neutrophils % (Manual) 2 Lymphocytes % (Manual) 8 (10.0-50.0) Monocytes % (Manual) 4 (0-12) Eosinophils % (Manual) 3 (0-7) Basophils % (Manual) 0 (0.0-2.0) Metamyelocytes % (manual) 0 Myelocytes % (Manual) 0 Promyelocytes % (Manual) 0 Blast Cells % (Manual) 0 Reactive Lymphocytes 0 Clumped Platelets Few Hypochromasia (manual) Moderate Total Bilirubin 0.5 mg/dL (0.2-1.0) Aspartate Amino Transferase (AST) 32 U/L (13-40) Alanine Aminotransferase (ALT) 42 U/L (7-40) Alkaline Phosphatase 70 U/L (46-116) Total Protein 5.4 g/dL (5.7-8.2) Albumin 3.1 g/dL (3.2-4.8) Blood Gas Specimen Type Arterial Blood Gas Sample Site Left radial Blood Gas Patient Temperature 37.0 Arterial Blood Date Drawn [id number] Arterial Blood pH 7.501 (7.350-7.450) Arterial Blood Partial Pressure CO2 23.2 mmHg (32.0-45.0) Arterial Blood Partial Pressure O2 89.5 mmHg (83.0-108.0) Arterial Blood HCO3 17.7 mmol/L (21.0-28.0) Arterial Blood Oxygen Saturation 96.9 % (94.0-98.0) Arterial Blood Base Excess -4.2 mmol/L (-2.0-3.0) Arterial Blood Oxyhemoglobin 96.4 % (94.0-98.0) Arterial Blood Carboxyhemoglobin 0.0 % (0.5-1.5) Arterial Blood Methemoglobin 0.5 % (0.0-1.5) Monster Test Modified Blood Gas Total Hemoglobin 10.00 g/dL (12.0-16.0) Blood Gas Set Respiration Rate 16.0 Blood Gas Modality Vent - ac FiO2 % 30.0 Blood Gas Tidal Volume 400.0 Blood Gas PEEP or CPAP 5.0 Stool for White Cells None seen Test 05/02/24 03:00 04/30/24 03:59 04/29/24 10:29 04/28/24 10:24 Magnesium Level 2.0 mg/dL (1.6-2.6) Stomatocytes Few Urine Color Yellow (Yellow) Urine Clarity Clear (Clear) Urine pH 5.5 (5.0-9.0) Urine Specific [place] 1.025 (1.001-1.035) Urine Protein 1+ (Negative) Urine Ketones Negative (Negative) Urine Blood 2+ /uL (Negative) Urine Nitrite Negative (Negative) Urine Bilirubin Negative (Negative) Urine Urobilinogen Normal mg/dL (Negative) Urine Leukocyte Esterase 3+ /uL (Negative) Urine RBC 5 /hpf (0 - 4) Urine WBC 39 /hpf (0 - 5) Urine Squamous Epithelial Cells None seen /hpf (<5) Urine Bacteria None seen /hpf (None Seen) Urine Yeast (Budding) Occasional /hpf (None Urine Glucose Normal mg/dL (Normal) Specimen Drawn By Test 04/28/24 03:47 04/27/24 06:10 04/26/24 07:09 04/24/24 06:39 Prothrombin Time 11.2 sec (9.3-11.8) Prothrombin Time INR 1.06 (0.9-1.15) Activated Partial Thromboplast Time 21.8 SEC (24.5-34.5) Blood Gas Spontaneous Rate 18 Blood Gas Inspiratory Pressure 24.0 Bl Gas Inspiratory/Expiratory Ratio 1:2.8 Blood Gas Critical Value Read Back yes Blood Gas Notified Whom julio césar lane Blood Gas Notified Time [id number] Blood Gas Notified By cristopher rt Test 04/24/24 03:11 04/23/24 06:05 04/21/24 03:22 04/19/24 03:33 Poikilocytosis (manual) Slight POC Glucose 139 mg/dl (70-106) Large Platelets Few Phosphorus Level 4.0 mg/dL (2.4-5.1) Test 04/17/24 08:32 04/17/24 08:05 04/16/24 20:46 04/16/24 13:10 Troponin I High Sensitivity 4731 ng/L (</=34) Blood Gas EPAP 5 Blood Gas IPAP 15 Blood Gas Comments Bur 16 Urine WBC Clumps Present /hpf (None Seen) Urine Mucus Few (None Seen) Urine Osmolality 375 mOsm/kg Test 04/16/24 10:35 04/13/24 09:30 04/12/24 04:19 04/11/24 07:25 Blood Gas Pressure Support 7 B-Type Natriuretic Peptide 373.79 pg/mL (0-100) Random Vancomycin Level 17.5 ug/mL (5-10) Blood Gas Spontaneous Tidal Volume 511 Test 04/11/24 03:45 04/04/24 05:20 04/04/24 03:30 04/03/24 09:24 Lactic Acid Level 1.7 mmol/L (0.4-2.0) Digoxin Level 2.09 ng/mL (0.8-2) Hepatitis A IgM Antibody Negative Hepatitis B Surface Antigen Negative (Negative) Hepatitis B Core IgM Antibody Negative Hepatitis C Antibody Negative (Negative) Iron Level 37 ug/dL (50-170) Total Iron Binding Capacity 219 ug/dL (250-425) Percent Iron Saturation 16.9 % (15-50) Ferritin 879.9 ng/mL (10-291) Test 04/02/24 09:00 04/02/24 03:27 04/01/24 18:14 04/01/24 15:30 Gastric Fluid pH 6 Gastric Fluid Occult Blood Positive (Negative) Stool Occult Blood Positive (Negative) Stool Occult Blood Sample #3 (Negative) Smudge Cells 1 /100 WBC Microcytosis Slight Ammonia 26 umol/L (11-32) Triglycerides Level 329 mg/dL (< 150) Cholesterol Level 110 mg/dL (< 200) LDL Cholesterol 39 mg/dL (< 100) HDL Cholesterol < 5 mg/dL (40-59) Thyroid Stimulating Hormone (TSH) 1.71 uIU/mL (0.55-4.78) Body Fluid Source Pleural fluid Body Fluid pH 7.0 Body Fluid WBC (Manual) 72682 CUMM (0-200) Body Fluid RBC (Manual) 3552 CUMM (0-2000) Body Fluid Mononuclear Cells 31 % Body Fluid Polymorphonuclear Cells 69 % (0-25) Body Fluid Glucose <2 mg/dL (.) Body Fluid Total Protein 4.4 g/dL (.) Body Fluid Lactate Dehydrogenase >90792 IU/L (.) Test 04/01/24 12:27 04/01/24 07:18 04/01/24 05:22 03/31/24 20:52 Hemoglobin A1c 5.4 % A1C (<5.7) Lactate Dehydrogenase 329 U/L (120-246) D-Dimer, Quantitative 3.62 mg/L FEU (0.0-0.49) Creatine Kinase 47 U/L (34-145) Blood Gas Liter Flow 4.00 Test 03/31/24 20:47 Lipase 59 U/L (12-53) Other Laboratory Tests 05/06/24 09:00 Brief Hx & Hospital Course: Patient is 68-year-old female who was brought to the hospital from [facility] for higher level of care. Patient was initially treated facility for shortness of breath and was transferred to our hospital. During initial ED evaluation patient found to be tachypneic with severe respiratory failure, atrial fibrillation. Initially patient required oxygenation via non- rebreather mask however patient intubated to protect airway. Patient started on IV antibiotic, requiring vasopressor and amiodarone drip initially. With further evaluation chest ultrasound showed bilateral pleural effusion, CT scan of chest and abdomen was performed which showed partially loculated right pleural effusion and consolidation in right middle and lower lobe. Patient also found to have right hydronephrosis with 1.9 cm calculus into right UPJ. Radiologist performed right-sided thoracentesis which removed 250 mL of fluid. L patient was placed with right-sided chest tube for loculated empyema. Patient underwent right thoracoscopy with evacuation empyema with insertion of chest tube. Patient was extubated on April 16/2024. Patient was reintubated back given possible STEMI and transferred to left heart catheterization. Fruit Express Agent did angioplasty for complete total occlusion of mid LAD. Started on heparin drip, aspirin and Plavix. Patient continued to have x-ray findings with right lower lobe opacity. Continued on antibiotic. Repeat CT scan was done on 04/22/2024. Which showed Moderate partially loculated right pleural effusion with a right thoracostomy tube terminating in the anterior medial right upper lobe. Given expectation of longer than 2 weeks of ventilator support, patient underwent tracheostomy. Later Patient underwent Right thoracotomy, evacuation of right empyema. Irrigation and drainage of right chest cavity on 04/29/2024. Patient continued on antibiotic with Zosyn. Over the course of hospitalization after evacuation empyema, WBC count reduced, oxygen requirement on ventilator reduced. The patient continued to drain via anterior and posterior chest tube with no air leak. Given patient's oxygen saturation and ventilator support reduced, patient is started on trach collar trial. Patient was tolerating trach collar trial more than 8 hours. Given patient will require long-term treatment in hospitalization, patient was transferred to LTAC hospital for continuity of care. Consults/Reason for consult Condition at Discharge: Stable Final Diagnosis/Problems List Acute hypoxic respirtory failure likel due to right-sided pleural effusion/empyema and consolidation on right middle and lower lobe Septic shock in the setting of loculated right-sided pleural effusion and pneumonia POA Yes Pneumonia Gram negative E. Coli POA Y S/P Tracheostomy (04/23/24) Acute on chronic systolic/diastolic heart failure NSTEMI type II likely due to CHF and Septic shock Atrial fibrilation with RVR: Rate controlled Hypernatremia :Improved Bilateral hydronephrosis with left-sided staghorn calculi and right UVJ calculi CHRISTOPH due to VMN initially likely in setting of septic shock: Resolved Hypokalemia Normocytic anemia:Stable Discharge Disposition: Acute Care Facility Discharge Instruct/Medications Diet: See Comment Diet comment: -Continue Feeding via NG tube. Activity: Light activity Follow Up/Referral: [facility] Medications: -See transfer paper Discharge Statement: "Patient was advised to return to the ER or call 911 if any headaches, dizziness, shortness of breath, chest pain, abdominal pain, bleeding, fevers, or worsening of medical condition. Patient was counseled about treatment plan, medications, possible side effects, patientverbalized understanding. All questions were answered to the best of my ability. This discharge took greater then 30 minutes in planning, reviewing documentation, counseling the patient, and discussing with other team members." ASSESSMENT ASSESSMENT Assessment Acute hypoxic respirtory failure likel due to right-sided pleural effusion/empyema and consolidation on right middle and lower lobe JUAN VAZQUEZ RESIDENT May 12, 2024 14:59
== END 2024-05-06 20:32 | DRG 3 ==
LOC: EDBD 20:09 → ER 20:09 → TELE 04-01 05:04 → ICU WEST 04-01 10:43
PROVIDERS: ADMIT Internal Medicine; ATTEND Internal Medicine
PROC: 5A09357 Assistance with Respiratory Ventilation, Less than 24 Consecutive Hours, Continuous Positive Airway Pressure (ICD-10-PCS; 2024-03-31)
PROC: 0BH17EZ Insertion of Endotracheal Airway into Trachea, Via Natural or Artificial Opening (ICD-10-PCS; 2024-04-01)
PROC: 5A1955Z Respiratory Ventilation, Greater than 96 Consecutive Hours (ICD-10-PCS; 2024-04-01)
PROC: 0W993ZX Drainage of Right Pleural Cavity, Percutaneous Approach, Diagnostic (ICD-10-PCS; 2024-04-01)
PROC: 02HV33Z Insertion of Infusion Device into Superior Vena Cava, Percutaneous Approach (ICD-10-PCS; 2024-04-02)
PROC: 5A1D70Z Performance of Urinary Filtration, Intermittent, Less than 6 Hours Per Day (ICD-10-PCS; 2024-04-04)
PROC: 0W9940Z Drainage of Right Pleural Cavity with Drainage Device, Percutaneous Endoscopic Approach (ICD-10-PCS; 2024-04-08)
PROC: 02HV33Z Insertion of Infusion Device into Superior Vena Cava, Percutaneous Approach (ICD-10-PCS; 2024-04-09)
PROC: B548ZZA Ultrasonography of Superior Vena Cava, Guidance (ICD-10-PCS; 2024-04-09)
PROC: 30233N1 Transfusion of Nonautologous Red Blood Cells into Peripheral Vein, Percutaneous Approach (ICD-10-PCS; 2024-04-16)
PROC: 5A09357 Assistance with Respiratory Ventilation, Less than 24 Consecutive Hours, Continuous Positive Airway Pressure (ICD-10-PCS; 2024-04-16)
PROC: 02713ZZ Dilation of Coronary Artery, Two Arteries, Percutaneous Approach (ICD-10-PCS; principal; 2024-04-17)
PROC: 5A1955Z Respiratory Ventilation, Greater than 96 Consecutive Hours (ICD-10-PCS; 2024-04-17)
PROC: 4A023N7 Measurement of Cardiac Sampling and Pressure, Left Heart, Percutaneous Approach (ICD-10-PCS; 2024-04-17)
PROC: B211YZZ Fluoroscopy of Multiple Coronary Arteries using Other Contrast (ICD-10-PCS; 2024-04-17)
PROC: B215YZZ Fluoroscopy of Left Heart using Other Contrast (ICD-10-PCS; 2024-04-17)
PROC: 0BH17EZ Insertion of Endotracheal Airway into Trachea, Via Natural or Artificial Opening (ICD-10-PCS; 2024-04-17)
PROC: 0B110F4 Bypass Trachea to Cutaneous with Tracheostomy Device, Open Approach (ICD-10-PCS; 2024-04-23)
PROC: 0BNK0ZZ Release Right Lung, Open Approach (ICD-10-PCS; 2024-04-29)
PROC: 0W29X0Z Change Drainage Device in Right Pleural Cavity, External Approach (ICD-10-PCS; 2024-04-29)
DX: A41.9 Sepsis, unspecified organism (principal); I21.A1 Myocardial infarction type 2; R65.21 Severe sepsis with septic shock; J15.5 Pneumonia due to Escherichia coli; J96.02 Acute respiratory failure with hypercapnia; J96.01 Acute respiratory failure with hypoxia; I50.43 Acute on chronic combined systolic (congestive) and diastolic (congestive) heart failure; N17.0 Acute kidney failure with tubular necrosis; J86.9 Pyothorax without fistula; N13.2 Hydronephrosis with renal and ureteral calculous obstruction; E87.20 Acidosis, unspecified; E87.0 Hyperosmolality and hypernatremia; Z99.11 Dependence on respirator [ventilator] status; I47.10 Supraventricular tachycardia, unspecified; J91.8 Pleural effusion in other conditions classified elsewhere; I47.20 Ventricular tachycardia, unspecified; Z68.41 Body mass index [BMI] 40.0-44.9, adult; N18.9 Chronic kidney disease, unspecified; E87.6 Hypokalemia; E87.5 Hyperkalemia; E66.01 Morbid (severe) obesity due to excess calories; I48.0 Paroxysmal atrial fibrillation; D64.9 Anemia, unspecified; I25.10 Atherosclerotic heart disease of native coronary artery without angina pectoris; I35.8 Other nonrheumatic aortic valve disorders; I07.1 Rheumatic tricuspid insufficiency; I70.0 Atherosclerosis of aorta; D50.9 Iron deficiency anemia, unspecified; Z82.49 Family history of ischemic heart disease and other diseases of the circulatory system; Z79.82 Long term (current) use of aspirin; Z79.02 Long term (current) use of antithrombotics/antiplatelets; Z79.899 Other long term (current) drug therapy
CPT/HCPCS: 31500; 32555; 36415; 36556; 36569; 36600; 70450; 71045; 71250; 74176; 76604; 76775; 76937; 76942; 80048; 80053; 80061; 80074; 80162; 80202; 81001; 82040; 82140; 82270; 82271; 82550; 82728; 82805; 82962; 83036; 83540; 83550; 83605; 83615; 83690; 83735; 83880; 83935; 83986; 84100; 84132; 84443; 84484; 85007; 85014; 85018; 85025; 85027; 85048; 85379; 85610; 85730; 86850; 86900; 86901; 86920; 87040; 87045; 87070; 87075; 87077; 87081; 87086; 87088; 87186; 87205; 87427; 89051; 90935; 92941; 93005; 93306; 93458; 94002; 94003; 94640; 94660; 96365; 96368; 96375; 99152; 99291; 99292; A4565; C1894; G0378; J0153; J0171; J0330; J0692; J1642; J1756; J1815; J1956; J2185; J2248; J2250; J2470; J2543; J2704; J3480; J7060; P9047; Q9967